=== PATIENT | female | born 1940 | race Caucasian/White ===

== ENCOUNTER 2019-06-08 14:01 | Outpatient (CLI) | payer MEDICARE, SELFPAY ==
--- NOTE | ~2019-06-08 | MM_ITS ---
EXAMINATION: MM screening epifanio BI w nakul HISTORY: Screening mammogram TECHNIQUE: Craniocaudal and mediolateral oblique 3-D tomosynthesis images were obtained and synthetic 2-D images were generated. CAD analysis was submitted and interpreted. COMPARISON: 06/06/2018 bilateral diagnostic digital mammogram 04/15/2014 bilateral diagnostic digital mammogram and complete bilateral breast ultrasound BREAST PARENCHYMAL COMPOSITION: FINDINGS: There is a cluster of grouped microcalcifications anteriorly in the outer left breast on CC projection; magnification views are recommended. Otherwise there is no evidence of suspicious mass, calcification, or architectural distortion to sug gest malignancy in either breast. There are scattered bilateral benign calcifications including arter ial. There has been no other suspicious interval change. IMPRESSION: 1. Cluster grouped microcalcifications of left breast 2. Diagnostic left mammogram with magnification views is recommended. BI-RADS Category 0: Incomplete: Needs additional imaging evaluation. Reviewed, dictated and finalized at location A.
== END 2019-06-08 14:02 | disposition home or self-care (01) ==
LOC: ANHIMG 14:06
PROVIDERS: PCP Family Medicine; Visit Provider Family Medicine
DX: Z12.31 Encounter for screening mammogram for malignant neoplasm of breast (principal); R92.8 Other abnormal and inconclusive findings on diagnostic imaging of breast
CPT/HCPCS: 77063; 77067

== ENCOUNTER 2019-06-12 09:37 | Outpatient (CLI) | payer MEDICARE, SELFPAY ==
[2019-06-12 09:54] LABS: Hematocrit 39.6 % (37.0-47.0); Hemoglobin 13.2 g/dL (12.0-15.0); Mean Corpuscular HGB Conc 33.3 g/dl (32-36); Mean Corpuscular Volume 96.1 fl (80-100); Mean Platelet Volume 10.5 fl (7.4-10.4); Platelet Count Result 143 k/mm3 (150-375); Red Blood Count 4.12 M/mm3 (4.2-5.4); Red Cell Distribution Width 12.3 % (11.5-14.5); White Blood Count 4.5 K/mm3 (4.5-10.0)
[2019-06-12 10:06] LABS: Alanine Aminotransferase 21 U/L (4-35); Albumin Level 4.1 g/dL (3.5-5.1); Alkaline Phosphatase 80 U/L (38-126); Aspartate Amino Transferase 26 U/L (14-36); Bilirubin,Total 0.4 mg/dL (0.2-1.3); Blood Urea Nitrogen 17 mg/dL (7-17); Carbon Dioxide 29 mmol/L (22-30); Chloride 104 mmol/L (98-107); Cholesterol 138 mg/dL (0-200); Estimated Glomerular Filt Rate > 60; Glucose 98 mg/dL (65-105); HDL Direct 50 mg/dL; Potassium 4.2 mmol/L (3.4-5.0); Sodium 141 mmol/L (137-145); Triglycerides 134 mg/dL (<150)
[2019-06-12 10:16] LABS: LDL Cholesterol Direct 62 mg/dL
== END 2019-06-12 09:38 | disposition home or self-care (01) ==
PROVIDERS: PCP Family Medicine; Visit Provider Family Medicine
DX: R53.83 Other fatigue (principal); I10 Essential (primary) hypertension; E78.2 Mixed hyperlipidemia; E03.9 Hypothyroidism, unspecified
CPT/HCPCS: 36415; 80053; 80061; 84443; 85027

== ENCOUNTER 2019-12-30 13:10 | Emergency (ER) | payer MEDICARE, SELFPAY ==
--- NOTE | ~2019-12-30 | CT_ITS ---
EXAMINATION: CT brain wo con DATE: 12/30/2019 13:54 INDICATION: Leg paresis TECHNIQUE: Computed tomography (CT) of the head was performed without intravenous contrast. The mA wa s adjusted according to patient size. Iterative reconstruction technique was employed. Exam dose: 60 5.33 mGy-cm total exam DLP. COMPARISON: 10/30/2016 MRI brain/brainstem 10/29/[address] brain FINDINGS: Vertebral, basilar and bilateral carotid siphon and supraclinoid internal carotid artery ca lcifications are noted. There is nonspecific diminished attenuation of the subcortical and periventri cular cerebral white matter, likely due to chronic small vessel ischemic changes. Mild cerebral and cerebellar atrophy. No intracranial mass lesion or hemorrhage or cerebrovascular accident is evident. No midline shift or mass effect. No fracture or bone destruction of the cranial vault. Included paranasal sinuses and mastoid air cell s are normally developed and aerated. IMPRESSION: Cerebral atherosclerosis and chronic small vessel ischemic changes of the cerebral white matter No acute intracranial finding or significant change since 10/29/2016 Reviewed, dictated and finalized at Location [facility]. Reviewed, dictated and finalized at location B.
--- NOTE | 2019-12-30 13:18 | ED.WEAKNESS ---
HPI - Weakness General Chief complaint: Weakness Stated complaint: SHAKY, N/V, WEAKNESS Time Seen by Provider: 12/30/19 13:18 History of Present Illness HPI Narrative: 79 yo female presents from home for weakness, shakiness, vomiting. She has felt like she was shaking on the inside since this morning. This got worse throughout the day. Later she developed some nausea and vomited. At one point she tred to walk, but states that she was not able to move her legs. She does not report any specific arm weaknes, but says that she was weak all over. She reports that she has had similar symptoms, but this is the worst it has ever been. She has had vertigo, it is not clear if this is similar. She says that I have seen her for this in the past. On review of the chart she had a UTi at that time. Related Data Home Medications Medication Instructions Recorded Confirmed meclizine 25 mg tablet 25 mg PO TID PRN 05/31/19 05/31/19 ranolazine 500 mg tablet,extended 500 mg PO Q12H 06/03/19 release,12 hr Allergies Allergy/AdvReac Type Severity Reaction Status Date / Time alendronate sodium Allergy Unknown Pt does Verified 12/30/19 13:26 remember levofloxacin Allergy Unknown Pt does Verified 12/30/19 13:26 not remember hydrocodone AdvReac Mild IF SHE Verified 12/30/19 13:26 TAKES 250 MG SHE IS OKAY, 500 MG SHE HAS NAUSEA AND V Review of Systems Review of Systems: All systems reviewed & are unremarkable except as noted in HPI and below Constitutional: Constitutional: Denies fever(s) and Reports weakness Eyes: Eyes: Denies change in vision ENT: Reports dizziness Cardiovascular: Cardiovascular: Denies chest pain Respiratory: Respiratory: Denies dyspnea Gastrointestinal: Gastrointestinal: Denies abdominal pain, Reports nausea and Reports vomiting Genitourinary: Genitourinary: Denies hematuria and Denies dysuria Musculoskeletal: Musculoskeletal: Denies back pain Neurologic: Denies confusion, Reports dizziness, Denies syncope, Denies focal weakness, Denies numbness and Reports weakness Psychiatric: Psychiatric: Denies anxiety PMFSH Past Medical History Medical History Chronic bilateral low back pain without sciatica Coronary artery disease involving [place] coronary artery of [place] heart Essential hypertension Gastroesophageal reflux disease H/O migraine Hypothyroidism Mixed hyperlipidemia Primary osteoarthritis of left knee Seasonal allergic rhinitis Vertigo Vitamin B12 deficiency Vitamin D deficiency Social History Social History Smoking status: Never smoker Second hand tobacco smoke exposure: No Alcohol intake: never Exam Const: General: no acute distress and alert Nutritional Appearance: obese Orientation/consciousness: patient oriented x3 HENMT: Head: normal to inspection Eyes: Pupils: Equal, round and reactive pupils present EOM: EOMs intact bilaterally Resp: Effort & Inspection: normal respiratory effort Auscultation: clear to auscultation bilaterally Cardio: Rate: regular rate Rhythm: regular rhythm GI: GI Palp: Yes Soft to palpation and No Tenderness to palpation present (GI) Neuro: General: patient oriented x3, moves all extremities, no focal motor deficits and CN's II-XI intact bilaterally Cranial nerves: Yes Nystagmus not present Speech: normal speech Extrem: General: normal to inspection and no edema Course Vital Signs Vital signs: Vital Signs Temperature 36.4 C 12/30/19 13:23 Pulse Rate 72 12/30/19 13:23 Respiratory Rate 18 12/30/19 13:23 Blood Pressure 166/76 H 12/30/19 13:23 Pulse Oximetry 97 12/30/19 13:23 Temperature 36.4 C 12/30/19 13:23 Pulse Rate 72 12/30/19 16:25 Respiratory Rate 18 12/30/19 16:25 Blood Pressure 163/89 H 12/30/19 16:25 Pulse Oximetry 100 12/30/19 16:25
[2019-12-30 13:23] VITALS: BP 166/76; PULSE 72; RESP 18; TEMP 36.4; O2SAT 97
--- NOTE | 2019-12-30 13:37 | ECG_ITS ---
Measurements Intervals [place] Rate: 67 P: 74 OK: 189 QRS: -53 QRSD: 116 T: 23 QT: 347 QTc: 369 Interpretive Statements SINUS RHYTHM LOW QRS VOLTAGE IN PRECORDIAL LEADS INCOMPLETE RIGHT BUNDLE BRANCH BLOCK LEFT ANTERIOR FASCICULAR BLOCK ABNORMAL ECG Electronically Signed On 12-30-2019 13:49:32 CDT by Blayne Steele D.O.
[2019-12-30] MEDS: PANTOPRAZOLE SODIUM IV 40 MG VIAL IV PUSH (14:06)
[2019-12-30] MEDS: SODIUM CHLORIDE 0.9% IV 500 ML 999 ML IV CONT (14:06)
[2019-12-30] MEDS: METOCLOPRAMIDE HCL INJ 10 MG/2 ML VIAL IV PUSH (14:06)
[2019-12-30 14:17] LABS: Basophils Percent Auto 0.4 % (0.2-1.2); Eosinophils Absolute Auto 0.1 K/mm3 (0-0.3); Eosinophils Percent Auto 2.2 % (0-4.4); Hematocrit 38.7 % (37.0-47.0); Hemoglobin 12.8 g/dL (12.0-15.0); Immature Granulocyte Absolute 0.01 K/mm3 (0.00-0.031); Immature Granulocyte Percent A 0.2 % (0-0.5); Immature Platelet Fraction Pct 4.9 % (0.9-11.2); Lymphocytes Absolute Auto 1.32 K/mm3 (0.9-3.2); Lymphocytes Percent Auto 29.4 % (18.3-44.2); Mean Corpuscular HGB Conc 33.1 g/dl (32-36); Mean Corpuscular Hemoglobin 32.2 pg (26-34); Mean Corpuscular Volume 97.5 fl (80-100); Mean Platelet Volume 11.3 fl (7.4-10.4); Monocytes Absolute Auto 0.3 K/mm3 (0.1-0.6); Monocytes Percent Auto 7.1 % (2.6-8.5); Neutrophils Absolute Auto 2.7 K/mm3 (1.3-6.7); Neutrophils Percent Auto 60.7 % (45.5-73.1); Platelet Count Result 155 k/mm3 (150-375); Red Blood Count 3.97 M/mm3 (4.2-5.4); Red Cell Distribution Width 12.2 % (11.5-14.5); White Blood Count 4.5 K/mm3 (4.5-10.0)
[2019-12-30 14:32] LABS: Prothrombin Time 12.8 Seconds (11.1-14.7)
[2019-12-30 14:33] LABS: Partial Thromboplastin Time 34.4 SECONDS (22.3-36.8)
[2019-12-30 14:59] VITALS: BP 144/79; PULSE 69; RESP 18; O2SAT 95
--- NOTE | 2019-12-30 15:05 | PC.NURSE ---
Patient declines straight cath at this time and is unable to give urine sample.
[2019-12-30 15:20] LABS: Alanine Aminotransferase 20 U/L (4-35); Albumin Level 4.3 g/dL (3.5-5.1); Alkaline Phosphatase 88 U/L (38-126); Anion Gap 11 mmol/L (8-16); Aspartate Amino Transferase 26 U/L (14-36); Bilirubin,Total 0.6 mg/dL (0.2-1.3); Blood Urea Nitrogen 17 mg/dL (7-17); Carbon Dioxide 30 mmol/L (22-30); Chloride 100 mmol/L (98-107); Estimated CRCL calculation 56 ml/min; Estimated Glomerular Filt Rate > 60; Glucose 111 mg/dL (65-105); Potassium 3.7 mmol/L (3.4-5.0); Sodium 141 mmol/L (137-145)
[2019-12-30 15:27] LABS: Add Urine Microscopic? NO; Appearance Urine Clear (Clear); Bilirubin Urine Negative (Negative); Blood Urine Negative (Negative); Color Urine Yellow (Yellow); Glucose Urine UA Negative (Negative); Ketones Urine Negative (Negative); Leukocyte Esterase Ur Negative LEU/UL (Negative); Nitrate Urine Negative (Negative); Protein Urine Negative (Negative); Specific Grav Ur 1.016 (1.001-1.035); Urobilinogen Urine Negative mg/dL (<2.0)
[2019-12-30 16:25] VITALS: BP 163/89; PULSE 72; RESP 18; O2SAT 100
== END 2019-12-30 16:26 | disposition home or self-care (01) ==
PROVIDERS: Emergency Provider Emergency Medicine; PCP Family Medicine
DX: R53.1 Weakness (principal); R11.2 Nausea with vomiting, unspecified; I67.2 Cerebral atherosclerosis; I25.10 Atherosclerotic heart disease of native coronary artery without angina pectoris; I10 Essential (primary) hypertension; K21.9 Gastro-esophageal reflux disease without esophagitis; E03.9 Hypothyroidism, unspecified; E78.2 Mixed hyperlipidemia; M17.12 Unilateral primary osteoarthritis, left knee; E53.8 Deficiency of other specified B group vitamins; E55.9 Vitamin D deficiency, unspecified; I45.2 Bifascicular block
CPT/HCPCS: 36415; 70450; 80053; 81003; 85025; 85055; 85610; 85730; 93005; 96361; 96374; 96375; 99284; C9113; J2765; J7040

== ENCOUNTER → 2020-06-10 14:39 | Outpatient (CLI) | payer MEDICARE, SELFPAY ==
--- NOTE | ~2020-06-10 | XR_ITS ---
XR chest 2V 06/10/2020 15:14 Indication: Dyspnea. Procedure: 2 view chest Comparison: Comparison to multiple prior studies sequentially, with oldest reviewed study dated 04/15. Findings: There is chronic right basilar infiltrates, most likely atelectasis/scarring. Cardiomegaly. There is atherosclerosis. No acute focal pneumonia, edema, pleural effusion or pneumothorax. Impression: 1: No acute cardiopulmonary disease. 2: Chronic right basilar atelectasis/scarring, unchanged. Reviewed, dictated and finalized at location A. 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 2: Chronic right basilar atelectasis/scarring, unchanged.
== END ==
PROVIDERS: Visit Provider Family Medicine
DX: R06.00 Dyspnea, unspecified (principal)
CPT/HCPCS: 71046

== ENCOUNTER → 2020-06-10 14:42 | Outpatient (CLI) | payer MEDICARE, SELFPAY ==
--- NOTE | ~2020-06-10 | XR_ITS ---
EXAMINATION: XR knee RT 2V DATE: 06/10/2020 15:15 INDICATION: Right knee pain. TECHNIQUE: 2 views of right knee were obtained. COMPARISON: None. FINDINGS: Bone alignment is normal. No fracture. There is mild osteoarthritis of medial and patellofe moral compartments. No knee joint effusion. IMPRESSION: 1. Mild right knee osteoarthritis. Reviewed, dictated and finalized at location A. 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
== END ==
PROVIDERS: Visit Provider Physical Medicine & Rehabilitation Pain Medicine
DX: M17.11 Unilateral primary osteoarthritis, right knee (principal)
CPT/HCPCS: 73560

== ENCOUNTER 2020-07-25 10:31 | Outpatient (CLI) | payer MEDICARE, SELFPAY ==
[2020-07-25 11:40] LABS: Hemoglobin A1C 5.9 % (<5.7)
[2020-07-25 11:41] LABS: Alanine Aminotransferase 21 U/L (4-35); Alkaline Phosphatase 68 U/L (38-126); Anion Gap 3 mmol/L (8-16); Aspartate Amino Transferase 26 U/L (14-36); Bilirubin,Total 0.6 mg/dL (0.2-1.3); Blood Urea Nitrogen 22 mg/dL (7-17); Calcium 9.2 mg/dL (8.4-10.2); Carbon Dioxide 34 mmol/L (22-30); Chloride 105 mmol/L (98-107); Cholesterol 144 mg/dL (0-200); Estimated Glomerular Filt Rate > 60; Glucose 95 mg/dL (65-105); HDL Direct 65 mg/dL; Potassium 3.5 mmol/L (3.4-5.0); Sodium 142 mmol/L (137-145); Triglycerides 102 mg/dL (<150)
[2020-07-25 11:54] LABS: LDL Cholesterol Direct 54 mg/dL
== END 2020-07-25 10:32 | disposition home or self-care (01) ==
LOC: ANHLAB 10:36
PROVIDERS: PCP Family Medicine; Visit Provider Family Medicine
DX: E78.2 Mixed hyperlipidemia (principal); E03.9 Hypothyroidism, unspecified; R53.83 Other fatigue; R73.03 Prediabetes; I10 Essential (primary) hypertension
CPT/HCPCS: 36415; 80053; 80061; 83036; 84443

== ENCOUNTER → 2020-08-11 09:26 | Outpatient (CLI) | payer MEDICARE, SELFPAY ==
--- NOTE | ~2020-08-11 | MM_ITS ---
EXAMINATION: MM diagnostic epifanio BI w nakul HISTORY: Indeterminate left breast calcifications TECHNIQUE: Craniocaudal, mediolateral, and mediolateral oblique 3-D tomosynthesis images of the breas ts were performed and synthetic 2-D images were generated. Magnification views of the left breast are also obtained. CAD analysis was submitted and interpreted. COMPARISON: 06/08/2019, 06/06/2018, 04/15/2014, 07/14/2012 BREAST PARENCHYMAL COMPOSITION: The breasts are heterogeneously dense, which may obscure small masses . FINDINGS: There are grouped, round calcifications in the middle third of the outer breast at 3:00 loc ation 5 cm from the nipple. With magnification, these calcifications appear stable compared to prior mammograms. There is no suspicious mass, calcification, or architectural distortion in either breast to suggest malignancy. IMPRESSION: 1. No mammographic evidence of malignancy. 2. Recommend annual screening mammography while the patient remains in good health. BI-RADS Category 2: Benign finding(s). Reviewed, dictated and finalized at location A. IMPRESSION: 1. No mammographic evidence of malignancy. 2. Recommend annual screening mammography while the patient remains in good hea lth. BI-RADS Category 2: Benign finding(s).
== END ==
PROVIDERS: PCP Family Medicine; Visit Provider Physician Assistant
DX: R92.8 Other abnormal and inconclusive findings on diagnostic imaging of breast (principal)
CPT/HCPCS: 77062; 77066; G0279

== ENCOUNTER 2020-09-02 10:08 | Outpatient (CLI) | payer MEDICARE, SELFPAY ==
--- NOTE | ~2020-09-02 | US_ITS ---
EXAMINATION: US soft tissue head and neck DATE: 09/02/2020 10:34 INDICATION: Left neck palpable abnormality TECHNIQUE: Multiple grayscale and Doppler ultrasound images of the left neck and supraclavicular paul on were obtained. COMPARISON: Cervical MRI dated 12/02/2013 FINDINGS: Palpable abnormality of concern appears to correspond to prominent patent vein likely representing th e left external jugular vein as can be seen on prior cervical MRI dated 12/02/2013. The deeper left int ernal jugular vein and common carotid artery appear normal. No pathologically enlarged lymphadenopath y, abnormal masses or fluid collections identified. IMPRESSION: 1. Palpable abnormality of concern appears to correspond to the prominent left external jugular vein. No pathologically enlarged lymphadenopathy or other abnormal masses or fluid collections identified. Reviewed, dictated and finalized at location A. IMPRESSION: 1. Palpable abnormality of concern appears to correspond to the prominent left external jugular vein. No pathologically enlarged lymphadenopathy or other abno rmal masses or fluid collections identified.
== END 2020-09-02 10:09 | disposition home or self-care (01) ==
PROVIDERS: PCP Family Medicine; Visit Provider Family Medicine
DX: R22.1 Localized swelling, mass and lump, neck (principal)
CPT/HCPCS: 76536

== ENCOUNTER → 2020-10-25 10:44 | Outpatient (CLI) | payer MEDICARE, SELFPAY ==
--- NOTE | ~2020-10-25 | MR_ITS ---
EXAMINATION: MR lumbar spine wo/w con EXAM DATE: 10/25/2020 11:47 INDICATION: Lower back pain. Right leg pain. TECHNIQUE: Multi-sequential, multiplanar MR images of the lumbar spine were obtained without contrast . Sagittal T1, T2, T2 fat saturation images. Axial T2 weighted images. Axial T1 weighted sequence. Patient was then injected with 15 mL Multihance intravenous contrast and reimaged. Postcontrast axi al and sagittal T1-weighted fat saturation sequences were obtained. There is no prior study for mary jo fontenot. FINDINGS: There is moderate loss of the L5-S1 disc height, mild disc disease at the other thoracolumb ar levels. The conus medullaris terminates at the L1-2 level and has normal signal intensity and morp hology. There are no suspicious marrow signal abnormalities. The vertebral bodies are aligned in the AP dimension. Paraspinal soft tissue is unremarkable. Level by level evaluation: T12-L1: Disc does not extend beyond the endplate margin. Facet arthropathy: Mild. Neural foraminal stenosis: No stenosis. Central canal stenosis: No stenosis. L1-L2: Disc does not extend beyond the endplate margin. Facet arthropathy: Mild. Neural foraminal stenosis: No stenosis. Central canal stenosis: No stenosis. L2-L3: There is a mild diffuse disc bulge. Facet arthropathy: Mild. Neural foraminal stenosis: No stenosis. Central canal stenosis: No stenosis. L3-L4: There is a mild diffuse disc bulge. Facet arthropathy: Moderate. Neural foraminal stenosis: Mild to moderate right, mild left. Central canal stenosis: Mild. L4-L5: There is a mild to moderate diffuse disc bulge. Facet arthropathy: Moderate. Neural foraminal stenosis: Moderate right, mild to moderate left. Central canal stenosis: Moderate. L5-S1: There is a mild to moderate diffuse disc bulge. Facet arthropathy: Mild to moderate. Neural foraminal stenosis: Mild bilateral. Central canal stenosis: Mild. IMPRESSION: 1. Overall mild to moderate lumbar spondylosis as detailed above. 2. Right L4-5 neural foramina most narrowed on exam. Reviewed, dictated and finalized at location B.
[2020-10-25 11:20] LABS: Estimated Glomerular Filt Rate > 60
== END ==
PROVIDERS: PCP Family Medicine; Visit Provider Physical Medicine & Rehabilitation Pain Medicine
DX: M47.896 Other spondylosis, lumbar region (principal)
CPT/HCPCS: 72158; A9577

== ENCOUNTER 2020-11-25 14:07 | Emergency (ER) | payer MEDICARE, SELFPAY ==
[2020-11-25] VITALS (7 sets, daily range): BP systolic 138–167; BP diastolic 75–79; PULSE 71–76; RESP 17–24; TEMP 36.4–36.8; O2SAT 96–99
--- NOTE | ~2020-11-25 | XR_ITS ---
EXAMINATION: XR chest 2V EXAM DATE: 11/25/2020 14:42 INDICATION: Weakness, chest pain. TECHNIQUE: Frontal and lateral projections of the chest obtained and reviewed. Comparison is made to prior examination from 06/10/2020. FINDINGS: Linear bibasilar opacities consistent with atelectasis unchanged. The lungs are otherwise clear. Mild cardiomegaly. There is no pneumothorax suspected. There are no pleural effusions. There a re mild bony degenerative changes. IMPRESSION: 1. Linear basilar opacities most consistent with atelectasis. 2. Cardiomegaly. Reviewed, dictated and finalized at location A.
--- NOTE | 2020-11-25 14:31 | ECG_ITS ---
Measurements Intervals [place] Rate: 69 P: 32 AL: 161 QRS: -58 QRSD: 106 T: 45 QT: 341 QTc: 367 Interpretive Statements SINUS RHYTHM LEFT AXIS DEVIATION LOW QRS VOLTAGE IN PRECORDIAL LEADS INCOMPLETE RIGHT BUNDLE BRANCH BLOCK POOR R WAVE PROGRESSION, ANTERIOR LEADS BASELINE ARTIFACT- I, II, AVR, AVL, V4-V6 BORDERLINE ECG Electronically Signed On 11-25-2020 14:53:23 CDT by Blayne Steele D.O.
--- NOTE | 2020-11-25 15:13 | ED.CHESTPAIN ---
HPI - Chest Pain General Chief Complaint: Weakness Stated Complaint: Weakness Time Seen by Provider: 11/25/20 14:51 Source: patient Mode of arrival: ambulatory Limitations: no limitations History of Present Illness HPI narrative: Patient is an 80-year-old female complaining of generalized weakness, nausea and chest discomfort that started prior to arrival. Patient states that her chest discomfort was brief, few minutes , 1 episode and now resolved. Patient denies any speech or visual disturbance, focal weakness or numbness shortness of breath, vomiting, diarrhea, fever or chills. Patient states that she had similar episodes in the past and it was due to anxiety. Related Data Home Medications Medication Instructions Recorded Confirmed meclizine 25 mg tablet 25 mg PO TID PRN 05/31/19 05/31/19 ranolazine 500 mg tablet,extended 1,000 mg PO Q12H tablet 05/02/20 release,12 hr amitriptyline 10 mg tablet 10 mg PO .HS tablet 08/25/20 Allergies Allergy/AdvReac Type Severity Reaction Status Date / Time alendronate sodium Allergy Unknown Pt does Verified 08/25/20 11:22 remember levofloxacin Allergy Unknown Pt does Verified 08/25/20 11:22 not remember hydrocodone AdvReac Mild IF SHE Verified 08/25/20 11:22 TAKES 250 MG SHE IS OKAY, 500 MG SHE HAS NAUSEA AND V Review of Systems Review of Systems: All systems reviewed & are unremarkable except as noted in HPI and below Constitutional: Constitutional: Denies body ache(s), Denies chills, Denies excessive sweating, Denies fatigue, Denies fever(s), Denies headache(s), Denies lethargy, Denies malaise and Denies weight loss Eyes: Eyes: Denies blurry vision, Denies change in vision and Denies loss of vision ENT: Denies dizziness, Denies ear discharge, Denies headache(s), Denies lip swelling, Denies epistaxis, Denies nasal congestion, Denies neck pain, Denies throat swelling and Denies tongue swelling Cardiovascular: Cardiovascular: Denies diaphoresis, Denies rapid heart rate, Denies edema, Denies irregular heart rhythm, Denies lightheadedness, Denies palpitations, Denies dyspnea and Denies dyspnea on exertion Respiratory: Respiratory: Denies chest congestion, Denies cough, Denies hemoptysis, Denies dyspnea and Denies dyspnea on exertion Gastrointestinal: Gastrointestinal: Denies abdominal pain, Denies melena, Denies hematochezia, Denies diarrhea, Denies vomiting and Denies hematemesis Musculoskeletal: Musculoskeletal: Denies abnormal gait, Denies deformity, Denies joint swelling, Denies limited range of motion, Denies neck pain and Denies numbness Neurologic: Denies Abnormal speech present, Denies abnormal gait, Denies confusion, Denies dizziness, Denies headache(s), Denies focal weakness, Denies loss of vision, Denies numbness, Denies Other visual disturbances, Denies Sensory deficit (Neuro) and Denies weakness Psychiatric: Psychiatric: Denies confusion, Denies depression, Denies auditory hallucinations, Denies homicidal ideation and Denies suicidal ideation Endocrine: Endocrine: Denies cold intolerance, Denies excessive sweating, Denies fatigue, Denies heat intolerance and Denies palpitations Hematologic/Lymphatic: Hematologic/Lymphatic: Denies easy bleeding and Denies easy bruising Allergic/Immunologic: Allergic/Immunologic: Denies lip swelling, Denies throat swelling and Denies tongue swelling [facility] Past Medical History Medical History Chronic bilateral low back pain without sciatica Coronary artery disease involving [place] coronary artery of [place] heart Essential hypertension Gastroesophageal reflux disease H/O migraine Hypothyroidism Mixed hyperlipidemia Prediabetes Primary osteoarthritis of left knee Seasonal allergic rhinitis Vertigo Vitamin B12 deficiency Vitamin D deficiency Social History Social History Second
[2020-11-25 15:15] LABS: Basophils Percent Auto 0.5 % (0.2-1.2); Eosinophils Absolute Auto 0.1 K/mm3 (0-0.3); Eosinophils Percent Auto 2.3 % (0-4.4); Hemoglobin 12.7 g/dL (12.0-15.0); Lymphocytes Absolute Auto 1.21 K/mm3 (0.9-3.2); Lymphocytes Percent Auto 28.4 % (18.3-44.2); Mean Corpuscular HGB Conc 32.6 g/dl (32-36); Mean Corpuscular Hemoglobin 32.1 pg (26-34); Mean Corpuscular Volume 98.5 fl (80-100); Mean Platelet Volume 10.4 fl (7.4-10.4); Monocytes Absolute Auto 0.4 K/mm3 (0.1-0.6); Monocytes Percent Auto 10.3 % (2.6-8.5); Neutrophils Absolute Auto 2.5 K/mm3 (1.3-6.7); Neutrophils Percent Auto 58.5 % (45.5-73.1); Platelet Count Result 146 k/mm3 (150-375); Red Blood Count 3.96 M/mm3 (4.2-5.4); Red Cell Distribution Width 12.6 % (11.5-14.5); White Blood Count 4.3 K/mm3 (4.5-10.0)
[2020-11-25 15:25] LABS: Alanine Aminotransferase 25 U/L (4-35); Alkaline Phosphatase 87 U/L (38-126); Anion Gap 8 mmol/L (8-16); Aspartate Amino Transferase 26 U/L (14-36); Bilirubin,Total 0.3 mg/dL (0.2-1.3); Blood Urea Nitrogen 19 mg/dL (7-17); Carbon Dioxide 29 mmol/L (22-30); Chloride 96 mmol/L (98-107); Estimated CRCL calculation 46 ml/min; Estimated Glomerular Filt Rate > 60; Glucose 118 mg/dL (65-110); Potassium 3.2 mmol/L (3.4-5.0); Sodium 133 mmol/L (137-145)
[2020-11-25 16:23] LABS: Troponin I < 0.012 ng/mL (0.000-0.034)
[2020-11-25 16:23] LABS: Add Urine Microscopic? YES; Appearance Urine Clear (Clear); Bilirubin Urine Negative (Negative); Blood Urine Negative (Negative); Color Urine Yellow (Yellow); Glucose Urine UA Negative (Negative); Ketones Urine Negative (Negative); Leukocyte Esterase Ur Trace LEU/UL (Negative); Mucus Urine Rare /lpf; Nitrate Urine Negative (Negative); Protein Urine Negative (Negative); RBC Urine 0-2 /hpf (0-2); Specific Grav Ur 1.019 (1.001-1.035); Squamous Epithelial Cell Urine Rare /hpf (Few); Urobilinogen Urine Negative mg/dL (<2.0)
[2020-11-25] MEDS: LACTATED RINGERS 1,000 ML 999 ML IV CONT (16:30)
[2020-11-25] MEDS: ASPIRIN 81 MG CHEWABLE TABLET 324 MG PO (16:30)
[2020-11-25] MEDS: POTASSIUM CHLORIDE 20 MEQ PACKET (FOR LIQUID) 40 MEQ PO (18:24)
[2020-11-25 19:02] LABS: Troponin I < 0.012 ng/mL (0.000-0.034)
== END 2020-11-25 20:00 | disposition home or self-care (01) ==
PROVIDERS: Emergency Medicine; Emergency Provider Emergency Medicine; PCP Family Medicine
DX: R53.1 Weakness (principal); R07.89 Other chest pain; I25.10 Atherosclerotic heart disease of native coronary artery without angina pectoris; I10 Essential (primary) hypertension; K21.9 Gastro-esophageal reflux disease without esophagitis; E03.9 Hypothyroidism, unspecified; E78.2 Mixed hyperlipidemia; R73.03 Prediabetes; M17.12 Unilateral primary osteoarthritis, left knee; E53.8 Deficiency of other specified B group vitamins; E55.9 Vitamin D deficiency, unspecified; R94.31 Abnormal electrocardiogram [ECG] [EKG]; I45.10 Unspecified right bundle-branch block; I51.7 Cardiomegaly; R91.8 Other nonspecific abnormal finding of lung field
CPT/HCPCS: 36415; 71046; 80053; 81001; 84484; 85025; 93005; 96360; 99284; A9270; J7120

== ENCOUNTER 2020-12-22 09:38 | Outpatient (CLI) | payer MEDICARE, SELFPAY ==
[2020-12-22 10:15] LABS: Anion Gap 8 mmol/L (8-16); Blood Urea Nitrogen 16 mg/dL (7-17); Calcium 9.5 mg/dL (8.4-10.2); Carbon Dioxide 33 mmol/L (22-30); Chloride 103 mmol/L (98-107); Estimated Glomerular Filt Rate > 60; Glucose 106 mg/dL (65-110); Potassium 3.4 mmol/L (3.4-5.0); Sodium 144 mmol/L (137-145)
== END 2020-12-22 09:39 | disposition home or self-care (01) ==
LOC: ANHLAB 09:43
PROVIDERS: PCP Family Medicine; Visit Provider Family Medicine
DX: E87.6 Hypokalemia (principal)
CPT/HCPCS: 36415; 80048

== ENCOUNTER 2021-03-14 10:36 | Outpatient (CLI) | payer MEDICARE, SELFPAY ==
--- NOTE | ~2021-03-14 | MR_ITS ---
EXAMINATION: MR cervical spine wo con DATE: 03/14/2021 11:31 INDICATION: Neck pain. TECHNIQUE: Magnetic resonance imaging (MRI) of the cervical spine was performed without intravenous c ontrast. Sequences included sagittal T2-weighted FSE, sagittal T2-weighted FS FSE, sagittal T1-weight ed FSE, axial MERGE, and axial T2-weighted FSE. COMPARISON: Cervical spine MRI 12/02/2013 FINDINGS: There is 5 degrees levocurvature of cervical spine. Vertebral body heights are normal. Ther e is 2 mm anterolisthesis of C5 on C6. There is moderately decreased disc height at C6-C7. The spinal cord signal intensity is normal. The following disc levels are specifically discussed: C2-C3: The disc does not extend beyond the endplate margin. There is no uncovertebral joint osteoarth ritis. There is moderate right and severe left facet joint osteoarthritis. There is no neural foramin al stenosis. There is no central canal stenosis. C3-C4: The disc does not extend beyond the endplate margin. There is no uncovertebral joint osteoarth ritis. There is severe bilateral facet joint osteoarthritis. There is moderate right and mild left ne ural foraminal stenosis. There is no central canal stenosis. C4-C5: The disc does not extend beyond the endplate margin. There is mild lateral uncovertebral joint osteoarthritis. There is severe bilateral facet joint osteoarthritis. There is moderate right and mi ld left neural foraminal stenosis. There is no central canal stenosis. C5-C6: The disc is bulging. There is mild bilateral uncovertebral joint osteoarthritis. There is clifford re bilateral facet joint osteoarthritis. There is mild bilateral neural foraminal stenosis. There is mild central canal stenosis. C6-C7: The disc is bulging. There is severe bilateral uncovertebral joint osteoarthritis. There is mi ld bilateral facet joint osteoarthritis. There is mild bilateral neural foraminal stenosis. There is mild central canal stenosis. C7-T1: There is a central protrusion. There is no uncovertebral joint osteoarthritis. There is severe bilateral facet joint osteoarthritis. There is mild bilateral neural foraminal stenosis. There is no central canal stenosis. IMPRESSION: 1. Moderate cervical spondylosis, stable from 12/02/2013. Reviewed, dictated and finalized at location A. 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
== END 2021-03-14 10:37 | disposition home or self-care (01) ==
LOC: ANHIMG 10:42
PROVIDERS: PCP Family Medicine; Visit Provider Family Medicine
DX: M47.813 Spondylosis without myelopathy or radiculopathy, cervicothoracic region (principal); M48.03 Spinal stenosis, cervicothoracic region
CPT/HCPCS: 72141

== ENCOUNTER → 2021-11-14 12:30 | Outpatient (CLI) | payer MEDICARE, SELFPAY ==
--- NOTE | ~2021-11-14 | MM_ITS ---
EXAMINATION: MM screening epifanio BI w nakul HISTORY: Screening mammogram TECHNIQUE: Craniocaudal and mediolateral oblique 3-D tomosynthesis images were obtained and synthetic 2-D images were generated. CAD analysis was submitted and interpreted. COMPARISON: 06/18/2019 06/08/2018 bilateral mammogram examinations BREAST PARENCHYMAL COMPOSITION: There is heterogeneously dense breast tissue, which may obscure small masses . FINDINGS: Occasional bilateral benign calcifications. There is no evidence of suspicious mass, calcif ication, or architectural distortion to suggest malignancy in either breast. There has been no suspic ious interval change. IMPRESSION: 1. No mammographic evidence of malignancy. 2. Recommend routine screening mammography in one year. BI-RADS Category 2: Benign finding(s). Reviewed, dictated and finalized at location A.
== END ==
PROVIDERS: PCP Family Medicine; Visit Provider Family Medicine
DX: Z12.31 Encounter for screening mammogram for malignant neoplasm of breast (principal)
CPT/HCPCS: 77063; 77067

== ENCOUNTER 2022-08-04 18:30 | Emergency (ER) | payer MEDICARE, SELFPAY ==
--- NOTE | ~2022-08-04 | CT_ITS ---
EXAMINATION: CT thoracic spine wo con DATE: 08/04/2022 19:03 INDICATION: Back pain. Fall. TECHNIQUE: Computed tomography (CT) of the thoracic spine was performed without intravenous contrast. Automated exposure control and iterative reconstruction technique were employed. The dose-length pro duct was 1006.75 mGy-cm. COMPARISON: None FINDINGS: There is mild scarring at the lung apices. Bone alignment is normal. There is a compression fracture of T2 with less than 1/5 loss of height. Intervertebral disc heights are normal. There is m ultilevel mild to moderate facet joint osteoarthritis. On the right, there is mild neural foraminal s tenosis at T3-T4 and T10-T11. No central canal stenosis. IMPRESSION: 1. Acute T2 compression fracture with less than 1/5 loss of height. Reviewed, dictated and finalized at location A.
--- NOTE | ~2022-08-04 | CT_ITS ---
EXAMINATION: CT cervical spine wo con DATE: 08/04/2022 19:03 INDICATION: Head injury. TECHNIQUE: Computed tomography (CT) of the cervical spine was performed without intravenous contrast. Automated exposure control and iterative reconstruction technique were employed. The dose-length pro duct was 178.08 mGy-cm. COMPARISON: Cervical spine MRI 03/14/2021 FINDINGS: There is mild scarring at the lung apices. There is 9 degrees levocurvature of cervical spi ne. There is 2 mm anterolisthesis of C5 on C6. There is a compression fracture of T2 with 1/5 loss of height. There is moderately decreased disc height at C6-C7. The following disc levels are specifical ly discussed: C2-C3: There is mild bilateral uncovertebral joint osteoarthritis. There is mild right and severe lef t facet joint osteoarthritis. There is mild left neural foraminal stenosis. There is no central canal stenosis. C3-C4: There is mild bilateral uncovertebral joint osteoarthritis. There is severe bilateral facet zeny int osteoarthritis. There is mild right neural foraminal stenosis. There is no central canal stenosis . C4-C5: There is mild bilateral uncovertebral joint osteoarthritis. There is severe bilateral facet zeny int osteoarthritis. There is mild right neural foraminal stenosis. There is no central canal stenosis . C5-C6: There is no uncovertebral joint osteoarthritis. There is severe and mild left facet joint oste oarthritis. There is moderate right neural foraminal stenosis. There is no central canal stenosis. C6-C7: There is severe bilateral uncovertebral joint osteoarthritis. There is mild bilateral facet zeny int osteoarthritis. There is mild bilateral neural foraminal stenosis. There is mild central canal st enosis. C7-T1: There is no uncovertebral joint osteoarthritis. There is severe right and moderate left facet joint osteoarthritis. There is mild right neural foraminal stenosis. There is no central canal stenos is. IMPRESSION: 1. Acute T2 compression fracture with 1/5 loss of height. 2. Moderate cervical spondylosis, stable from 03/14/2021. Reviewed, dictated and finalized at location A.
--- NOTE | ~2022-08-04 | CT_ITS ---
EXAMINATION: CT brain wo con DATE: 08/04/2022 19:03 INDICATION: Head injury. TECHNIQUE: Computed tomography (CT) of the head was performed without intravenous contrast. The mA wa s adjusted according to patient size. Iterative reconstruction technique was employed. The dose-lengt h product was 605.33 mGy-cm. COMPARISON: Head CT 01/29/2020 FINDINGS: There are scattered areas of low attenuation in the cerebral white matter. There is no intr acranial hemorrhage, acute infarction, or abnormal intracranial mass lesion. The ventricles are gail l in size. The paranasal sinuses are clear. There are likely changes of ocular lens replacement surge jeffrey. The mastoid air cells are normal. IMPRESSION: 1. Stable moderate nonspecific cerebral white matter disease, which likely represents chronic small v essel ischemic disease. Reviewed, dictated and finalized at location A. IMPRESSION: 1. Stable moderate nonspecific cerebral white matter disease, which likely repr esents chronic small vessel ischemic disease.
[2022-08-04 18:32] VITALS: BP 149/79; PULSE 83; RESP 18; TEMP 36.4; O2SAT 100
--- NOTE | 2022-08-04 18:46 | ED.FALL ---
HPI - Fall General Chief Complaint: Fall Stated Complaint: FALL, HEAD PAIN Time Seen by Provider: 08/04/22 18:32 History of Present Illness HPI Narrative: 82-year-old female presented to the emergency department for evaluation after having a mechanical fall resulting in a head injury with neck and upper back pain. Patient states that she was carrying some hangers and stumbled causing herself to fall backwards and patient did strike her head against a wall. Patient denies any loss of consciousness. Patient did have an episode of nausea and vomiting. Patient felt that her neck and upper back pain was more chronic but did feel it was worsened after the fall. Related Data Home Medications Medication Instructions Recorded Confirmed meclizine 25 mg tablet 25 mg PO TID PRN dizziness 05/31/19 07/31/22 ranolazine 500 mg tablet,extended 1,000 mg PO Q12H 05/02/20 07/31/22 release,12 hr (Ranexa) Allergies Allergy/AdvReac Type Severity Reaction Status Date / Time alendronate sodium Allergy Unknown Pt does Verified 08/04/22 18:45 remember levofloxacin Allergy Unknown Pt does Verified 08/04/22 18:45 not remember hydrocodone AdvReac Mild IF SHE Verified 08/04/22 18:45 TAKES 250 MG SHE IS OKAY, 500 MG SHE HAS NAUSEA AND V Review of Systems Review of Systems: All systems reviewed & are unremarkable except as noted in HPI and below PMFSH Past Medical History Medical History Chronic bilateral low back pain without sciatica Coronary artery disease involving [place] coronary artery of [place] heart Essential hypertension Gastroesophageal reflux disease H/O migraine Hypokalemia Hypothyroidism Mixed hyperlipidemia Prediabetes Primary osteoarthritis of left knee Seasonal allergic rhinitis Vertigo Vitamin B12 deficiency Vitamin D deficiency Social History Social History Smoking status: Never smoker Second hand tobacco smoke exposure: No Alcohol intake: never Substance use: never Substance use type: does not use Lack of Transportation: No Lack of Food: Never True Current Housing: I Have Housing Concerned About Future Housing: No Difficulty Paying Gas/Electric Bills: No Difficulty Paying for Meds: No Currently Unemployed: No Education: High School Diploma/GED Difficulty w/ Childcare or Family Care: No Living arrangements: with family Occupation/Education: retired Gender identity (if verbalized by the patient): Female Sexual Orientation (if Verbalized by the Patient): Straight or Heterosexual Spiritual care concerns: No Agree to blood products: Yes Exam Narrative: APPEARANCE: Well appearing, no pain, no distress, well-nourished. HEAD: normocephalic, atraumatic. EYES: PERRLA/EOMI, conjunctivae clear. NOSE: Normal no drainage EARS:TMS clear with good light reflex. NECK: Supple. No adenopathy, no masses. RESPIRATORY: Airway patent, respirations nonlabored. Clear to auscultation bilaterally, no rales, rhonchi, wheezing. CARDIOVASCULAR: Regular rate and rhythm without murmurs rubs or gallops. ABDOMINAL: Soft, nontender, nondistended, normal bowel sounds MUSCULOSKELETAL: Moves all extremities. Strength/ROM intact, No edema, No calf tenderness. NEURO: Alert. Cranial nerves II through XII intact. Grossly intact SKIN: Warm, dry. Normal Color Course Course Emergency Course: 82-year-old female presented the ED for evaluation after having a ground-level fall. Patient states she was having some back pain but attributed this mainly to the position she was sitting in. Head and cervical spine CT were negative for acute abnormality. Thoracic spine did show evidence of a T2 fracture with mild compression. Patient was neurologically intact. I discussed the case with neurosurgery and they were comfortable with with the plan for discharge a
--- NOTE | 2022-08-04 19:28 | PC.NURSE ---
This RN assumed care of patient.
[2022-08-04 20:54] VITALS: BP 150/67; PULSE 86; RESP 21; O2SAT 96
== END 2022-08-04 20:54 | disposition home or self-care (01) ==
LOC: ANHED 20:14
PROVIDERS: Emergency Provider Emergency Medicine; PCP Family Medicine
DX: S22.020A Wedge compression fracture of second thoracic vertebra, initial encounter for closed fracture (principal); I25.10 Atherosclerotic heart disease of native coronary artery without angina pectoris; I10 Essential (primary) hypertension; E03.9 Hypothyroidism, unspecified; E78.2 Mixed hyperlipidemia; E53.8 Deficiency of other specified B group vitamins; E55.9 Vitamin D deficiency, unspecified; K21.9 Gastro-esophageal reflux disease without esophagitis; M17.12 Unilateral primary osteoarthritis, left knee; R73.03 Prediabetes; M47.812 Spondylosis without myelopathy or radiculopathy, cervical region; W01.0XXA Fall on same level from slipping, tripping and stumbling without subsequent striking against object, initial encounter
CPT/HCPCS: 70450; 72125; 72128; 99284

== ENCOUNTER 2022-12-13 13:12 | Outpatient (CLI) | payer MEDICARE, SELFPAY ==
--- NOTE | ~2022-12-13 | US_ITS ---
EXAMINATION: US thyroid DATE: 12/13/2022 14:13 INDICATION: Neck localized swelling. TECHNIQUE: Multiple ultrasound images of the thyroid were obtained. COMPARISON: None. FINDINGS: The right thyroid lobe measures 4.5 x 1.3 x 1.1 cm. The left thyroid lobe measures 4.8 x 1.1 x 1.3 c m. The thyroid is diffusely heterogeneous and hypoechoic with increased vascularity. In the left thy roid lobe, there is a 6 mm solid, hypoechoic, wider than tall nodule with smooth margin without echog enic foci (TI-RADS TR4). In the left thyroid lobe, there is a 14 mm solid, hypoechoic, wider than bryant l nodule with irregular margin without echogenic foci (TR4). IMPRESSION: 1. 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 2. Small thyroid nodules. Consider thyroid ultrasound in one year. Reviewed, dictated and finalized at location A.
== END 2022-12-13 13:13 | disposition home or self-care (01) ==
PROVIDERS: PCP Family Medicine; Visit Provider Physician Assistant Medical
DX: R22.1 Localized swelling, mass and lump, neck (principal); E04.2 Nontoxic multinodular goiter
CPT/HCPCS: 76536

== ENCOUNTER 2023-01-06 11:35 | Inpatient (IN) | payer MEDICARE, SELFPAY ==
[2023-01-06] VITALS (14 sets, daily range): BP systolic 119–191; BP diastolic 54–101; PULSE 76–100; RESP 12–20; TEMP 36.2–37.1; O2SAT 94–100; BMI 30.5
--- NOTE | ~2023-01-06 | CT_ITS ---
EXAMINATION: CT brain wo con DATE: 01/06/2023 13:43 INDICATION: fall . TECHNIQUE: Computed tomography (CT) of the head was performed without intravenous contrast. The mA wa s adjusted according to patient size. Iterative reconstruction technique was employed. The dose-lengt h product was 605.33 mGy-cm. COMPARISON: 08/04/2022. FINDINGS: No acute intracranial hemorrhage or extra-axial fluid collection. No hydrocephalus, mass, or herniation. No acute ischemic infarct. Unremarkable dural venous sinus attenuation. No acute osseous abnormality. The aerated spaces are clear. Mild atrophy and chronic white matter change. Atherosclerotic intracranial calcification. Bilateral l ens replacements. IMPRESSION: No acute intracranial process. Reviewed, dictated and finalized at location K.
--- NOTE | ~2023-01-06 | XR_ITS ---
EXAM: XR surgery orthopedic DATE: 01/06/2023 18:17 HISTORY: INTRA OP RIGHT HIP . COMPARISON: None available. FINDINGS: Operative and table hardware obscure osseous detail. In the first image there is a tempora ry fitting prosthesis in place. A second image demonstrates placement of the final prosthesis in jerry omic alignment. IMPRESSION: Intraoperative views of the right hip for right hip arthroplasty. Please refer to the ope rative report for complete details. Reviewed, dictated and finalized at location K. IMPRESSION: Intraoperative views of the right hip for right hip arthroplasty. Korey barillas refer to the operative report for complete details.
--- NOTE | ~2023-01-06 | XR_ITS ---
EXAM: XR hip RT 2V w AP pelvis DATE: 01/06/2023 13:52 HISTORY: fall, hip pain, externally rotated . COMPARISON: None available. FINDINGS: Decreased mineralization. Transverse fracture of the right femoral neck, with mild medial angulation. No lytic or blastic lesion. Moderate degenerative change in the lumbar spine. Mild bilate ral hip osteoarthritis. No erosion or periosteal change. Soft tissues within normal limits. IMPRESSION: Transverse right femoral neck fracture. Reviewed, dictated and finalized at location K.
--- NOTE | ~2023-01-06 | XR_ITS ---
EXAMINATION: XR chest 1V Exam Date/Time: 01/06/2023 13:42 CDT HISTORY: fall, RIGHT LEF EXTERNALLY ROTATED Comparison: 11/25/2020. RESULT: Lines, tubes, and devices: None. Lungs and pleura: Biapical pleural scarring. Senescent changes. Streaky bilateral lower lung scar an d atelectasis. Increasing left basilar opacity and costophrenic angle blunting. Cardiomediastinal silhouette: Stable. Other: No acute osseous or upper abdominal finding. IMPRESSION: Left lower lung subsegmental airspace disease may represent atelectasis or consolidation. Possible sm all left pleural effusion. Reviewed, dictated and finalized at location K. IMPRESSION: Left lower lung subsegmental airspace disease may represent atelectasis or cons olidation. Possible small left pleural effusion.
--- NOTE | 2023-01-06 13:20 | ED.FALL ---
HPI - Fall General Chief Complaint: Fall Stated Complaint: R hip pain/deformity s/p GLF Time Seen by Provider: 01/06/23 12:01 History of Present Illness HPI Narrative: Patient is an 82-year-old female with history of hypertension, hypothyroidism, hyperlipidemia, CAD presenting after a fall. Patient states that she fell earlier while walking through her house. States that she thinks that she tripped on her foot. Denies lightheadedness. States that she remembers the entire event. She landed on her right side and struck her head on a chair. No loss of consciousness. She denies headache or neck pain. She immediately developed severe right hip pain and was unable to ambulate so EMS was called. Denies chest or abdominal pain. No shortness of breath. No numbness or weakness. No further complaints or injuries. Related Data Home Medications Medication Instructions Recorded Confirmed ranolazine 500 mg tablet,extended 1,000 mg PO Q12H 05/02/20 01/06/23 release,12 hr (Ranexa) metoprolol succinate 25 mg 25 mg PO DAILY 01/06/23 01/07/23 tablet,extended release 24 hr isosorbide mononitrate 60 mg 30 mg PO 01/07/23 tablet,extended release 24 hr levothyroxine 25 mcg tablet 25 mcg PO DAILY 01/07/23 01/07/23 losartan 100 mg tablet 100 mg PO DAILY 01/07/23 01/07/23 Allergies Allergy/AdvReac Type Severity Reaction Status Date / Time alendronate sodium Allergy Unknown Pt does Verified 01/06/23 21:38 remember levofloxacin Allergy Unknown Pt does Verified 01/06/23 21:38 not remember hydrocodone AdvReac Mild IF SHE Verified 01/06/23 21:38 TAKES 250 MG SHE IS OKAY, 500 MG SHE HAS NAUSEA AND V Review of Systems Review of Systems: All systems reviewed & are unremarkable except as noted in HPI and below PMFSH Past Medical History Medical History (Updated 01/16/23 @ 13:03 by Che Lugo MD) Arthritis Coronary artery disease Prior cardiac catheterization showed mild plaque in the LAD and 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 Patient of Dr. Bereket Olson. Essential hypertension Gastroesophageal reflux disease Hypothyroidism Mixed hyperlipidemia Prediabetes Seasonal allergic rhinitis Vitamin B12 deficiency Vitamin D deficiency Surgical History Surgical History (Updated 01/06/23 @ 23:46 by Filomena Gonzalez PA-C) History of appendectomy History of cardiac catheterization Results as above. History of cataract extraction History of colonoscopy with polypectomy History of hysterectomy Family History Family History Father Lung cancer Sibling Breast cancer Social History Social History (Updated 01/06/23 @ 23:47 by Filomena Gonzalez PA-C) Social History: Surrogate medical decision maker: Jodi Lewis, daughter. Code status: Full code. Smoking status: Never smoker Second hand tobacco smoke exposure: No Alcohol intake: never Substance use: never Substance use type: does not use Lack of Transportation: No Lack of Food: Never True Current Housing: I Have Housing Concerned About Future Housing: No Difficulty Paying Gas/Electric Bills: No Difficulty Paying for Meds: No Currently Unemployed: No Education: High School Diploma/GED Difficulty w/ Childcare or Family Care: No Living arrangements: with family Additional living arrangements comments: The patient lives in [place] with her daughter Jodi. 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 Spiritual care concerns: No Agree to blood products: Yes Exam Narrative: GENERAL: Elderly female lying in bed in no acute distress, very pleasant and cooperative HEAD: Normocephalic, atraumatic. EYES: PERRLA and EOMI. ENT: Grossly unremarkable NECK: Supple. No midline tenderness CHEST: Clear to auscultation. No respiratory distress. HEART: Regular rate and
--- NOTE | 2023-01-06 13:24 | ECG_ITS ---
Measurements Intervals [place] Rate: 76 P: -20 AK: 151 QRS: -59 QRSD: 113 T: 22 QT: 340 QTc: 384 Interpretive Statements SINUS RHYTHM INCOMPLETE RIGHT BUNDLE BRANCH BLOCK [90+ ms QRS DURATION, TERMINAL R IN V1/V2, 40+ ms S IN I/aVL/V4/V5/V6] LEFT ANTERIOR FASCICULAR BLOCK [QRS AXIS <= -45, QR IN I, RS IN II] POSSIBLE ANTERIOR MYOCARDIAL INFARCTION , OF INDETERMINATE AGE [30 ms Q WAVE IN V3/V4, OR R < 0.2 mV IN V4] ABNORMAL ECG COMPARED TO ECG 11/25/2020 14:29:02 LEFT ANTERIOR FASCICULAR BLOCK NOW PRESENT Electronically Signed On 01-07-2023 9:24:56 CDT by Esvin Irvin M.D.
[2023-01-06] MEDS: HYDROmorphone HCL INJ (*CRX) 1 MG/ML SYR 0.5 MG IV PUSH ×4 (13:27→20:45)
[2023-01-06] MEDS: ONDANSETRON INJ 4 MG/2 ML VIAL IV PUSH (13:58)
[2023-01-06 14:18] LABS: Basophils Percent Auto 0.3 % (0.2-1.2); Eosinophils Absolute Auto 0.2 K/mm3 (0-0.3); Eosinophils Percent Auto 2.4 % (0-4.4); Hematocrit 43.3 % (37.0-47.0); Hemoglobin 13.6 g/dL (12.0-15.0); Immature Granulocyte Absolute 0.03 K/mm3 (0.00-0.031); Immature Granulocyte Percent A 0.5 % (0-0.5); Lymphocytes Absolute Auto 1.23 K/mm3 (0.9-3.2); Lymphocytes Percent Auto 19.8 % (18.3-44.2); Mean Corpuscular HGB Conc 31.4 g/dl (32-36); Mean Corpuscular Hemoglobin 31.4 pg (26-34); Mean Platelet Volume 10.8 fl (7.4-10.4); Monocytes Absolute Auto 0.3 K/mm3 (0.1-0.6); Monocytes Percent Auto 4.8 % (2.6-8.5); Neutrophils Absolute Auto 4.5 K/mm3 (1.3-6.7); Neutrophils Percent Auto 72.2 % (45.5-73.1); Platelet Count Result 146 k/mm3 (150-375); Red Blood Count 4.33 M/mm3 (4.2-5.4); Red Cell Distribution Width 12.4 % (11.5-14.5); White Blood Count 6.2 K/mm3 (4.5-10.0)
[2023-01-06 14:28] LABS: Prothrombin Time 13.3 Seconds (11.1-14.7)
[2023-01-06 14:29] LABS: Partial Thromboplastin Time 39.6 SECONDS (22.3-36.8)
--- NOTE | 2023-01-06 15:12 | PC.NURSE ---
Lab called regarding BMP. They state they had not run it yet, but will do so now.
[2023-01-06 15:18] LABS: Anion Gap 7 mmol/L (8-16); Blood Urea Nitrogen 15 mg/dL (7-17); Calcium 8.9 mg/dL (8.4-10.2); Carbon Dioxide 26 mmol/L (22-30); Chloride 106 mmol/L (98-107); Estimated Glomerular Filt Rate > 60; Glucose 104 mg/dL (65-110); Potassium 3.4 mmol/L (3.4-5.0); Sodium 139 mmol/L (137-145)
--- NOTE | 2023-01-06 16:21 | WPDANESEPPF ---
Anes - Initial Pre Proc Eval Procedure: Operation Date: 01/06/23 16:30 Proposed Procedures p Bipolar Hip Replacement(Right) - Prosper Grimes MD Date/Time: 01/06/23 16:21 Surgeon: Prosper Grimes MD Pre Op Diagnosis: R hip pain/deformity s/p GLF Patient Data Age: 82 Gender: F Height: Weight: Last Vital Signs Temp 36.2 C L 01/06/23 11:29 Pulse 82 01/06/23 15:52 Resp 20 01/06/23 15:52 BP 161/74 H 01/06/23 15:52 Pulse Ox 97 01/06/23 15:52 O2 Del Method Room Air 01/06/23 11:29 Allergies Allergy/AdvReac Type Severity Reaction Status Date / Time alendronate sodium Allergy Unknown Pt does Verified 11/27/22 09:27 remember levofloxacin Allergy Unknown Pt does Verified 11/27/22 09:27 not remember hydrocodone AdvReac Mild IF SHE Verified 11/27/22 09:27 TAKES 250 MG SHE IS OKAY, 500 MG SHE HAS NAUSEA AND V Home Medications Medication Instructions Recorded Confirmed Type levothyroxine 25 mcg tablet 25 mcg PO DAILY #90 tabs 04/21/19 11/27/22 Rx meclizine 25 mg tablet 25 mg PO TID PRN dizziness 05/31/19 11/27/22 History ranolazine 500 mg tablet,extended 1,000 mg PO Q12H 05/02/20 11/27/22 History release,12 hr (Ranexa) nystatin 100,000 unit/gram topical 1 applic topical BID #30 grams 06/09/21 11/27/22 Rx cream isosorbide mononitrate 60 mg 60 mg PO DAILY #90 tabs 01/24/22 11/27/22 Rx tablet,extended release 24 hr calcium polycarbophil 625 mg 1,250 mg PO BID #120 tabs 04/11/22 11/27/22 Rx tablet (FiberCon) atorvastatin 40 mg tablet 40 mg PO DAILY #90 tabs 07/03/22 11/27/22 Rx losartan 100 mg tablet 100 mg PO DAILY #90 tabs 07/03/22 11/27/22 Rx omeprazole 20 mg capsule,delayed See Rx Instructions .Route 07/03/22 11/27/22 Rx release .COMPLEX #180 caps amitriptyline 10 mg tablet 30 mg PO .HS #270 tabs 07/31/22 11/27/22 Rx ondansetron HCl 4 mg tablet See Rx Instructions .Route 10/04/22 11/27/22 Rx .COMPLEX #40 ea hydrochlorothiazide 25 mg tablet 25 mg PO DAILY #90 tabs 12/04/22 Rx Laboratory Tests 01/06/23 14:13 WBC 6.2 K/mm3 (4.5-10.0) RBC 4.33 M/mm3 (4.2-5.4) Hgb 13.6 g/dL (12.0-15.0) Hct 43.3 % (37.0-47.0) MCV 100.0 fl (80-100) MCH 31.4 pg (26-34) MCHC 31.4 L g/dl (32-36) RDW 12.4 % (11.5-14.5) Plt Count 146 L k/mm3 (150-375) MPV 10.8 H fl (7.4-10.4) Immature Gran % (Auto) 0.5 % (0-0.5) Neut % (Auto) 72.2 % (45.5-73.1) Lymph % (Auto) 19.8 % (18.3-44.2) [place] % (Auto) 4.8 % (2.6-8.5) Eos % (Auto) 2.4 % (0-4.4) Baso % (Auto) 0.3 % (0.2-1.2) Lymph # (Auto) 1.23 K/mm3 (0.9-3.2) [place] # (Auto) 0.3 K/mm3 (0.1-0.6) Eos # (Auto) 0.2 K/mm3 (0-0.3) Baso # (Auto) 0.0 K/mm3 (0.0-0.1) Abs Immat Gran (auto) 0.03 K/mm3 (0.00-0.031) Absolute Neuts (auto) 4.5 K/mm3 (1.3-6.7) Absolute Nucleated RBC 0.0 K/mm3 (0.0-0.012) Nucleated RBC % 0.0 % (0.0-0.2) PT 13.3 Seconds (11.1-14.7) INR 1.0 APTT 39.6 H SECONDS (22.3-36.8) Sodium 139 mmol/L (137-145) Potassium 3.4 mmol/L (3.4-5.0) Chloride 106 mmol/L (98-107) Carbon Dioxide 26 mmol/L (22-30) Anion Gap 7 L mmol/L (8-16) BUN 15 mg/dL (7-17) Creatinine 0.60 L mg/dL (0.7-1.0) Estim Creat Clear Calc Not Reportable Estimated GFR > 60 (59 - ) Glucose 104 mg/dL (65-110) Calcium 8.9 mg/dL (8.4-10.2) Patient hx anesthesia problems: none Family hx anesthesia problems: none Results Review: All pre-operative results and documents have been reviewed as part of the pre-operative evaluation. [facility] Past Medical History Medical History Chronic bilateral low back pain without sciatica Coronary artery disease involving [place] coronary artery of [place] heart Essential hypertension Gastroesophageal reflux dise
--- NOTE | 2023-01-06 16:22 | PM.IMHP ---
H&P: HPI History of Present Illness Date/Time: 01/06/23 16:22 Chief Complaint: Hip pain due to fracture, right. Narrative: Patient presents status post fall with acute femoral neck fracture right. She tripped and fell on her right side had immediate pain with inability to bear weight. Review of Systems Musculoskeletal: Musculoskeletal: Reports arthralgias and Reports joint swelling PMFSH Past Medical History Medical History Chronic bilateral low back pain without sciatica Coronary artery disease involving [place] coronary artery of [place] heart Essential hypertension Gastroesophageal reflux disease H/O migraine Hypokalemia Hypothyroidism Mixed hyperlipidemia Prediabetes Primary osteoarthritis of left knee Seasonal allergic rhinitis Vertigo Vitamin B12 deficiency Vitamin D deficiency Social History Social History Smoking status: Never smoker Second hand tobacco smoke exposure: No Alcohol intake: never Substance use: never Substance use type: does not use Lack of Transportation: No Lack of Food: Never True Current Housing: I Have Housing Concerned About Future Housing: No Difficulty Paying Gas/Electric Bills: No Difficulty Paying for Meds: No Currently Unemployed: No Education: High School Diploma/GED Difficulty w/ Childcare or Family Care: No Living arrangements: with family Occupation/Education: retired Gender identity (if verbalized by the patient): Female Sexual Orientation (if Verbalized by the Patient): Straight or Heterosexual Spiritual care concerns: No Agree to blood products: Yes Meds Home Medications and Allergies Home Medications Medication Instructions Recorded Confirmed Type levothyroxine 25 mcg tablet 25 mcg PO DAILY #90 tabs 04/21/19 11/27/22 Rx meclizine 25 mg tablet 25 mg PO TID PRN dizziness 05/31/19 11/27/22 History ranolazine 500 mg tablet,extended 1,000 mg PO Q12H 05/02/20 11/27/22 History release,12 hr (Ranexa) nystatin 100,000 unit/gram topical 1 applic topical BID #30 grams 06/09/21 11/27/22 Rx cream isosorbide mononitrate 60 mg 60 mg PO DAILY #90 tabs 01/24/22 11/27/22 Rx tablet,extended release 24 hr calcium polycarbophil 625 mg 1,250 mg PO BID #120 tabs 04/11/22 11/27/22 Rx tablet (FiberCon) atorvastatin 40 mg tablet 40 mg PO DAILY #90 tabs 07/03/22 11/27/22 Rx losartan 100 mg tablet 100 mg PO DAILY #90 tabs 07/03/22 11/27/22 Rx omeprazole 20 mg capsule,delayed See Rx Instructions .Route 07/03/22 11/27/22 Rx release .COMPLEX #180 caps amitriptyline 10 mg tablet 30 mg PO .HS #270 tabs 07/31/22 11/27/22 Rx ondansetron HCl 4 mg tablet See Rx Instructions .Route 10/04/22 11/27/22 Rx .COMPLEX #40 ea hydrochlorothiazide 25 mg tablet 25 mg PO DAILY #90 tabs 12/04/22 Rx Allergies Allergy/AdvReac Type Severity Reaction Status Date / Time alendronate sodium Allergy Unknown Pt does Verified 11/27/22 09:27 remember levofloxacin Allergy Unknown Pt does Verified 11/27/22 09:27 not remember hydrocodone AdvReac Mild IF SHE Verified 11/27/22 09:27 TAKES 250 MG SHE IS OKAY, 500 MG SHE HAS NAUSEA AND V Vital Signs Vital Signs - 24 hr 01/06/23 11:29 01/06/23 14:36 01/06/23 15:52 Temperature 97.1 F L Pulse Rate 79 76 82 Respiratory Rate 18 20 20 Blood Pressure 191/101 H 178/93 H 161/74 H Pulse Oximetry 99 98 97 Oxygen Delivery Room Air Exam Narrative: Exam of the right hip is shortened and externally rotated neurologically she can wiggle her toes notes about it she has pain with any manipulation. She is unable to bear weight. H&P: Results Labs Labs: Short CBC 01/06/23 Range/Units 14:13 WBC 6.2 (4.5-10.0) K/mm3 Hgb 13.6 (12.0-15.0) g/dL Hct 43.3 (37.0-47.0) % Plt Count 146 L (150-375) k/mm3 BMP 01/06/23 14
[2023-01-06] MEDS: ceFAZolin SODIUM 1 GM VIAL IV PUSH ×2 (17:02→17:09)
[2023-01-06] MEDS: VANCOMYCIN 1,000 MG/NS 250 ML 1,000 MG/250 ML BAG 250 MG IVPB (17:26)
[2023-01-06] MEDS: ceFAZolin SODIUM 1 GM VIAL 3 GM (17:36)
--- NOTE | 2023-01-06 18:14 | W.PM.PROC2 ---
Procedure Note - Detailed Date of Procedure 01/06/23 Pre-op Diagnosis R hip pain/deformity s/p GLF Right Femoral Neck Fracture Post-op Diagnosis Same Procedure Performed Bipolar endoprosthetic replacement Surgeon Prosper Grimes MD Anesthesia General Description of Procedure Patient brought to operating room 7. A general anesthetic was administered. Patient was sterilely prepped and draped in the usual manner with the right hip up. After time-out a longitudinal incision made dissection carried down to the fascia. The fascia split in line and the Caceres approach was used. This exposed the femoral neck fracture. Femoral neck was cut a fingerbreadth above the lesser trochanter. The surrounding circumferential bone was intact at this level. The femoral head removed and measured 47 millimeters. Femur and broached to accept a 7. This was impacted into place with a +3 neck 28 millimeter head and a 47 millimeter bipolar. X-ray demonstrates good alignment of the bipolar. Implants Biomet Estimated Blood Loss 300 Complications No immediate complications [facility] Billing Surgery - Charge Forward: Surgery Billing
[2023-01-06] MEDS: LACTATED RINGERS 1,000 ML 30 ML IV CONT (18:55)
[2023-01-06] MEDS: fentaNYL CITRATE INJ (*CRX) 100 MCG/2 ML VIAL 25 MCG IV PUSH ×8 (19:05→20:07)
--- NOTE | 2023-01-06 20:35 | PM.IMHP ---
H&P: HPI History of Present Illness Date/Time: 01/06/23 21:30 Chief Complaint: Right hip pain after a fall. Narrative: This is a very pleasant 82-year-old female with hypertension, hyperlipidemia, and coronary artery disease who presented to the emergency department via EMS from home for evaluation of right hip pain after a ground level fall. The patient provides the following history. She does not have good balance and typically ambulates with a walker. Today however she went to walk around the kitchen table without her walker when she got tripped up in her feet and ?fell over like a tree? onto her right side. She had immediate pain in her right leg and was unable to get up due to the pain. Radiographs on arrival to the ED showed a right femoral neck fracture and she is now status post repair per Dr. Grimes. At the time my evaluation she reports a pretty severe pain in the hip which she is having difficulties describing. She denies paresthesias, skin color, and temperature changes distal to the surgical site. She denies head trauma and loss of consciousness in the fall today. She also denies antecedent symptoms and reports that the fall was purely mechanical. She sustained no other injuries in the fall. Review of Systems Review of Systems: Twelve systems were reviewed. No recent cold or flu symptoms. No fever, chills, or sweats. No chest pain or shortness of breath. No nausea, vomiting, or diarrhea. No dysuria. No history of venous thromboembolism. Except as documented, all other systems were reviewed and are negative. 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 Patient of Dr. Bereket Olson. Essential hypertension Gastroesophageal reflux disease Hypothyroidism Mixed hyperlipidemia Prediabetes Seasonal allergic rhinitis Vitamin B12 deficiency Vitamin D deficiency Surgical History Surgical History (Updated 01/06/23 @ 23:46 by Filomena Gonzalez PA-C) History of appendectomy History of cardiac catheterization Results as above. History of cataract extraction History of colonoscopy with polypectomy History of hysterectomy Family History Family History Father Lung cancer Sibling Breast cancer Social History Social History (Updated 01/06/23 @ 23:47 by Filomena Gonzalez PA-C) Social History: Surrogate medical decision maker: Jodi Lewis, daughter. Code status: Full code. Smoking status: Never smoker Second hand tobacco smoke exposure: No Alcohol intake: never Substance use: never Substance use type: does not use Lack of Transportation: No Lack of Food: Never True Current Housing: I Have Housing Concerned About Future Housing: No Difficulty Paying Gas/Electric Bills: No Difficulty Paying for Meds: No Currently Unemployed: No Education: High School Diploma/GED Difficulty w/ Childcare or Family Care: No Living arrangements: with family Additional living arrangements comments: The patient lives in [place] with her daughter Jodi. 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 Spiritual care concerns: No Agree to blood products: Yes Meds Home Medications and Allergies Home Medications Medication Instructions Recorded Confirmed Type ranolazine 500 mg tablet,extended 1,000 mg PO Q12H 05/02/20 01/06/23 History release,12 hr (Ranexa) atorvastatin 40 mg tablet 40 mg PO DAILY #90 tabs 07/03/22 01/06/23 Rx omeprazole 20 mg capsule,delayed See Rx Instructions .Route 07/03/22 01/06/23 Rx release .COMPLEX #180 caps amitriptyline 10 mg tablet 30 mg PO .HS #270 tabs 07/31/22 01/06/23 Rx hydrochlorothiazide 25 mg tablet 25 mg PO DAILY #90 tabs 12/04/22 01/06/23 Rx met
--- NOTE | 2023-01-06 21:19 | ADMGEN ---
This patient, Maude Milton, was admitted to Medical Room 341-01. Patient/family oriented to hospital policies and general routines including ID bracelet, bed and alarms, visiting hours, pain management, procedures, bathroom and other care routines, personal items, smoking policy, room service/diet, and visiting hours. Information on how to activate the Rapid Response Team has been discussed. Patient/Family are encouraged to report perceived risks to care and to ask questions if they do not understand what they are told or what they should do.
[2023-01-07] VITALS (7 sets, daily range): BP systolic 125–145; BP diastolic 51–78; PULSE 98–106; RESP 14–18; TEMP 36.4–37.2; O2SAT 91–98
[2023-01-07] MEDS: SODIUM CHLORIDE 0.9% IV 1,000 ML 125 ML IV CONT (00:45)
[2023-01-07] MEDS: ceFAZolin 1 GM/NS 50 ML 1 GM/50 ML BAG IVPB ×3 (00:46→17:37)
[2023-01-07] MEDS: MORPHINE SULFATE (*CRX) 2 MG/ML INJ IV PUSH ×2 (00:53→03:57)
[2023-01-07 06:26] LABS: Hematocrit 32.6 % (37.0-47.0); Hemoglobin 10.1 g/dL (12.0-15.0); Immature Platelet Fraction Pct 4.7 % (0.9-11.2); Mean Corpuscular Hemoglobin 31.1 pg (26-34); Mean Corpuscular Volume 100.3 fl (80-100); Mean Platelet Volume 10.9 fl (7.4-10.4); Platelet Count Result 146 k/mm3 (150-375); Red Blood Count 3.25 M/mm3 (4.2-5.4); Red Cell Distribution Width 12.7 % (11.5-14.5); White Blood Count 5.6 K/mm3 (4.5-10.0)
[2023-01-07 06:34] LABS: Alanine Aminotransferase 18 U/L (6-35); Albumin Level 3.1 g/dL (3.5-5.1); Alkaline Phosphatase 59 U/L (38-126); Anion Gap 4 mmol/L (8-16); Aspartate Amino Transferase 25 U/L (14-36); Bilirubin,Total 0.6 mg/dL (0.2-1.3); Blood Urea Nitrogen 15 mg/dL (7-17); Carbon Dioxide 30 mmol/L (22-30); Chloride 103 mmol/L (98-107); Estimated CRCL calculation 51 ml/min; Estimated Glomerular Filt Rate > 60; Glucose 136 mg/dL (65-110); Magnesium 1.5 mg/dL (1.6-2.3); Potassium 3.1 mmol/L (3.4-5.0); Sodium 137 mmol/L (137-145)
--- NOTE | 2023-01-07 07:37 | PM.PNORT ---
Progress Note: A&P Assessment and Plan (1) Fracture of femoral neck, right: Code(s): S72.001A - Fracture of unspecified part of neck of right femur, initial encounter for closed fracture Status: Acute Plan Patient is status post total bipolar endoprosthetic replacement hip fracture right. She is followed course. Will ambulate with anticipation of potentially chcf placement. Subjective Subjective Date/Time Seen: 01/07/23 07:37 Post Op day: 1 Principal diagnosis: Right Femoral Neck FX Interval history: Patient 1 day status post right femoral neck fracture with bipolar replacement. Complaints of pain and does neurologically intact. Review of Systems Musculoskeletal: Musculoskeletal: Reports arthralgias and Reports joint swelling Exam Narrative: Exam the dressing is intact to toes neurologically she appears to be intact. Objective Data Vital Signs Vital Signs: Vital Signs - 24 hr 01/06/23 11:29 01/06/23 14:36 01/06/23 15:52 Temperature 97.1 F L Pulse Rate 79 76 82 Respiratory Rate 18 20 20 Blood Pressure 191/101 H 178/93 H 161/74 H Pulse Oximetry 99 98 97 Oxygen Delivery Room Air Oxygen Flow Rate 01/06/23 18:55 01/06/23 19:10 01/06/23 19:25 Temperature 98.7 F Pulse Rate 93 94 90 Respiratory Rate 19 17 17 Blood Pressure 125/58 L 152/68 H 148/70 H Pulse Oximetry 97 100 100 Oxygen Delivery Simple Face Mask Simple Face Mask Simple Face Mask Oxygen Flow Rate 5 5 5 01/06/23 19:39 01/06/23 20:04 01/06/23 20:15 Temperature Pulse Rate 89 87 88 Respiratory Rate 12 12 12 Blood Pressure 146/65 H 155/71 H 143/66 H Pulse Oximetry 98 98 95 Oxygen Delivery Simple Face Mask Room Air Nasal Cannula Oxygen Flow Rate 5 2 01/06/23 20:20 01/06/23 21:15 01/06/23 21:30 Temperature 97.7 F 97.7 F Pulse Rate 88 90 91 Respiratory Rate 13 16 16 Blood Pressure 163/65 H 132/66 140/62 Pulse Oximetry 95 95 97 Oxygen Delivery Nasal Cannula Oxygen Flow Rate 2 01/06/23 22:00 01/06/23 23:05 01/07/23 04:02 Temperature 97.9 F 97.9 F 98.6 F Pulse Rate 94 100 99 Respiratory Rate 14 18 18 Blood Pressure 119/54 L 154/62 H 138/55 L Pulse Oximetry 94 96 95 Oxygen Delivery Oxygen Flow Rate Intake/Output Intake/Output: Intake & Output 01/04/23 01/05/23 01/06/23 01/07/23 23:59 23:59 23:59 23:59 Intake Total 500 150 Output Total 150 250 Balance 350 -100 Meds/Results Medications: Active Medications Generic Name Dose Route Start Last Admin Trade Name Freq PRN Reason Stop Dose Admin Acetaminophen 650 mg 01/06/23 23:50 Acetaminophen 325 Mg Tablet PO Q6H PRN Mild Pain (1-3) or Fever Hydrocodone Bitart/Acetaminophen 1 tab 01/07/23 00:37 Hydrocodone/Acetaminophen (*Crx) 5-325 Mg Tablet PO Q3H PRN Pain Rated 4-6 Hydrocodone Bitart/Acetaminophen 1 tab 01/07/23 00:37 Hydrocodone/Acetaminophen (*Crx) 7.5-325 Mg Tablet PO Q3H PRN Pain Rated 4-6 Sodium Chloride 1,000 mls @ 125 mls/hr 01/07/23 00:40 01/07/23 00:45 Normal Saline Iv IV CONT 125 mls/hr .Q8H MELISSA Administration Cefazolin Sodium 1 gm in 50 mls @ 100 mls/hr 01/07/23 01:00 01/07/23 01:16 Ancef 1 Gm/Ns 50 Ml IVPB 01/07/23 17:29 Infused Q8H MELISSA Infusion Potassium Chloride/Dextrose/Sod Cl 1,000 mls @ 80 mls/hr 01/07/23 00:40 01/07/23 06:51 Kcl 20 Meq/D5/0.45% Sod Chl IV CONT Not Given .[id number] [facility] Morphine Sulfate 2 mg 01/07/23 00:38 01/07/23 03:57 Morphine Sulfate (*Crx) 2 Mg/Ml Inj IV PUSH 2 mg Q3H PRN Administration Pain Rated 7-10 Naloxone HCl 0.1 mg 01/07/23 00:36 Naloxone Hcl 0.4 Mg/Ml Vial IV PUSH Q2M PRN Opiate Reversal Polyethylene Glycol 17 gm 01/07/23 09:00 Polyethylene Glycol 3350 17 Gm Powd.Pack PO QAM [facility] Rivaroxaban 10 mg 01/07/23 17:00 Rivaroxaban 10 Mg Tablet PO DAILY@17 MELISSA Senna/Docusate Sodium 2 tab 01/07/23 09:00 Senna/Docusate [place]
[2023-01-07] MEDS: SENNA/DOCUSATE SODIUM TABLET 2 TAB PO (08:32)
[2023-01-07] MEDS: polyethylene glycoL 3350 17 GM POWD.PACK PO (08:32)
[2023-01-07] MEDS: HYDROcodone/acetaminophen (*CRX) 7.5-325 MG TABLET 1 TAB PO ×3 (08:32→17:28)
--- NOTE | 2023-01-07 08:51 | PM.IMPN ---
Progress Note: A&P Assessment and Plan (1) Fracture of femoral neck, right: Code(s): S72.001A - Fracture of unspecified part of neck of right femur, initial encounter for closed fracture Status: Acute (2) Essential hypertension: Code(s): I10 - Essential (primary) hypertension Status: Acute (3) Mixed hyperlipidemia: Code(s): E78.2 - Mixed hyperlipidemia Status: Acute (4) Gastroesophageal reflux disease: Code(s): K21.9 - Gastro-esophageal reflux disease without esophagitis Status: Acute (5) Coronary artery disease: Code(s): I25.10 - Atherosclerotic heart disease of [place] coronary artery without angina pectoris Status: Acute Plan The patient presented to the emergency department via EMS from home for evaluation after a mechanical, ground level fall. Labs, imaging, EKG, and all reports were personally reviewed. She was found to have a right femoral neck fracture and she is now status post bipolar endoprosthetic replacement per Dr. Grimes. Wound care, pain control, and DVT prophylaxis will be deferred to Dr. Grimes. Analgesics available as needed. PT/OT when appropriate. She may need rehab placement prior to going home. Vital signs were reviewed and they are stable. Her antihypertensives will be reviewed and resumed as appropriate. No acute issues with regards to her coronary artery disease. Continue statin, beta-good, and ranolazine. The rest of her home medications will be reviewed and resumed as appropriate. Time Spent With Patient Time with patient: Greater than 35 minutes Subjective Date/time seen: 01/07/23 08:51 Review of Systems Review of Systems: Twelve systems were reviewed. No recent cold or flu symptoms. No fever, chills, or sweats. No chest pain or shortness of breath. No nausea, vomiting, or diarrhea. No dysuria. No history of venous thromboembolism. Except as documented, all other systems were reviewed and are negative. Exam Narrative: General: Well-developed female supine in bed in mild distress due to pain. Weight: 70.2 kg. BMI: 30.5. HEENT: PERRL, EOMI. Sclera anicteric. Tacky mucous membranes. Neck: Supple. Respiratory: Lungs are clear to auscultation bilaterally. Cardiovascular: Regular rate and rhythm with S1-S2. Gastrointestinal: Abdomen is soft, nontender, and nondistended with positive bowel sounds. Skin: Warm and dry. No rash or lesions on limited exam. Musculoskeletal: Right hip dressing is clean, dry, and intact. No significant swelling or bruising noted. She is neurovascularly intact distal to the fracture site. Extremities: No cyanosis, clubbing, or edema. Radial and pedal pulses intact. Neurological: Alert. Cranial nerves 2-12 are grossly intact. No gross focal deficits to casual conversation. Psychiatric: Pleasant and cooperative with normal mood and affect. Judgment and insight intact. Objective Data Vital Signs Vital Signs: Vital Signs - 24 hr 01/06/23 11:29 01/06/23 14:36 01/06/23 15:52 Temperature 97.1 F L Pulse Rate 79 76 82 Respiratory Rate 18 20 20 Blood Pressure 191/101 H 178/93 H 161/74 H Pulse Oximetry 99 98 97 Oxygen Delivery Room Air Oxygen Flow Rate 01/06/23 18:55 01/06/23 19:10 01/06/23 19:25 Temperature 98.7 F Pulse Rate 93 94 90 Respiratory Rate 19 17 17 Blood Pressure 125/58 L 152/68 H 148/70 H Pulse Oximetry 97 100 100 Oxygen Delivery Simple Face Mask Simple Face Mask Simple Face Mask Oxygen Flow Rate 5 5 5 01/06/23 19:39 01/06/23 20:04 01/06/23 20:15 Temperature Pulse Rate 89 87 88 Respiratory Rate 12 12 12 Blood Pressure 146/65 H 155/71 H 143/66 H Pulse Oximetry 98 98 95 Oxygen Delivery Simple Face Mask Room Air Nasal Cannula Oxygen Flow Rate 5 2 01/06/23 20:20 01/06/23 21:15 01/06/23 21:30 Temperature 97.7 F 97.7 F Pulse Rate 88 90 91 Respiratory Rate 13 16 16 Blood Pressure 163/65 H 132/66 140/62 Pulse Oximetry 95 95 97 Oxygen Delivery Na
[2023-01-07] MEDS: MAGNESIUM SULF 1 GM/D5W 100 ML 1 GM/100 ML BAG IVPB (13:01)
--- NOTE | 2023-01-07 13:10 | PM.IMPN ---
Progress Note: A&P Assessment and Plan (1) Fracture of femoral neck, right: Code(s): S72.001A - Fracture of unspecified part of neck of right femur, initial encounter for closed fracture Status: Acute Assessment and Plan: 01/07/2023: Patient is postop D1 bipolar endoprosthetic replacement PT and OT ordered patient will benefit from intermediate, case management to coordinate continue [place] 7.5/325 1 tab p.o. Q 3 p.r.n. pain Ortho following (2) Essential hypertension: Code(s): I10 - Essential (primary) hypertension Status: Acute Assessment and Plan: 01/07/23: B/P ranging from 119/54- 154/62 today Continue home medication losartan and metoprolol (3) Mixed hyperlipidemia: Code(s): E78.2 - Mixed hyperlipidemia Status: Acute Assessment and Plan: 01/07/23: Continue Atorvastatin 40 mg daily (4) Gastroesophageal reflux disease: Code(s): K21.9 - Gastro-esophageal reflux disease without esophagitis Status: Acute Assessment and Plan: 01/07/2023: Start Protonix 40mg daily, substitution omeprazole (5) Coronary artery disease: Code(s): I25.10 - Atherosclerotic heart disease of [place] coronary artery without angina pectoris Status: Acute Assessment and Plan: 01/07/23: Continue Ranexa and isosorbide Time Spent With Patient Time with patient: Greater than 35 minutes Subjective Date/time seen: 01/07/23 13:10 Interval history: Interval history: 01/07/23: This is a very pleasant 82-year-old female with a past history significant for hypertension, hyperlipidemia, and coronary artery disease who presented to the emergency room via EMS from home after a ground level fall. She was worked up for evaluation of right hip pain. Radiographs of the right hip revealed a right femoral neck fracture. Ortho was consulted. Patient was taken to the OR with Ortho on 01/06/2023 and is now postop day 1 from a total by a polar endoprosthetic replacement of a right hip fracture. On exam today patient alert and oriented x3. Daughter is present at the bedside. Patient is reporting 8/10 pain in the right hip. She did work with physical therapy today and got up to a chair which seem to aggravate her pain it a little bit more. Patient reports that she had a restful night. She denies any fever, chills, nausea, vomiting, diarrhea. Patient denies any numbness, tingling, or loss of sensation to right lower leg. She has good cap refill, her foot is warm, she denies any calf tenderness. She had no events overnight other than trying to control her pain. Labs today included white blood cell count of 5.6, potassium of 3.1, sodium 137, chloride 103, hemoglobin 10.1, hematocrit 32.6, BUN 15, creatinine 0.7, magnesium 1.5. Order placed for 40 mEq of potassium 1 g of Mag to be given today. Plan for today is to restart some of her home medications, she is to work with PT and OT, obtain better pain control, and meet with Case Management about placement for intermediate as she will need this on an outpatient basis. Review of Systems Review of Systems: All systems reviewed & are unremarkable except as noted in HPI and below Constitutional: Constitutional: Reports as per HPI and Reports no additional constitutional complaints Eyes: Eyes: Reports as per HPI and Reports no additional eye complaints ENT: Reports system reviewed and no additional complaints, except as documented and Reports as per HPI Cardiovascular: Cardiovascular: Reports as per HPI and Reports no additional cardiovascular complaints Respiratory: Respiratory: Reports as per HPI and Reports no additional respiratory complaints Gastrointestinal: Gastrointestinal: Reports as per HPI and Reports no additional gastrointestinal complaints Genitourinary: Genitourinary: Reports no additional female genitourinary complaints and Reports as per HPI Musculoskeletal: Musculoskeletal: Reports no additional m
[2023-01-07] MEDS: POTASSIUM CHLORIDE 10 MEQ ER TABLET 40 MEQ PO (13:40)
[2023-01-07] MEDS: RIVAROXABAN 10 MG TABLET PO (17:36)
[2023-01-07] MEDS: PANTOPRAZOLE 40 MG TABLET PO (17:36)
[2023-01-07] MEDS: RANOLAZINE 500 MG TAB.ER.12H 1000 MG PO (21:41)
[2023-01-08] VITALS (8 sets, daily range): BP systolic 93–135; BP diastolic 47–60; PULSE 78–103; RESP 14–18; TEMP 36.5–37.3; O2SAT 79–96
[2023-01-08] MEDS: MORPHINE SULFATE (*CRX) 2 MG/ML INJ IV PUSH (04:39)
[2023-01-08] MEDS: LEVOTHYROXINE SODIUM 25 MCG TABLET PO (04:42)
[2023-01-08 06:08] LABS: Anion Gap 2 mmol/L (8-16); Blood Urea Nitrogen 15 mg/dL (7-17); Calcium 7.7 mg/dL (8.4-10.2); Carbon Dioxide 29 mmol/L (22-30); Chloride 102 mmol/L (98-107); Estimated CRCL calculation 64 ml/min; Estimated Glomerular Filt Rate > 60; Glucose 127 mg/dL (65-110); Magnesium 1.9 mg/dL (1.6-2.3); Potassium 3.7 mmol/L (3.4-5.0); Sodium 133 mmol/L (137-145)
[2023-01-08 06:10] LABS: Hematocrit 29.1 % (37.0-47.0); Hemoglobin 9.3 g/dL (12.0-15.0); Mean Corpuscular Hemoglobin 31.6 pg (26-34); Mean Platelet Volume 10.9 fl (7.4-10.4); Platelet Count Result 106 k/mm3 (150-375); Red Blood Count 2.94 M/mm3 (4.2-5.4); Red Cell Distribution Width 12.4 % (11.5-14.5); White Blood Count 6.9 K/mm3 (4.5-10.0)
--- NOTE | 2023-01-08 08:10 | PM.IMPN ---
Progress Note: A&P Assessment and Plan (1) Fracture of femoral neck, right: Code(s): S72.001A - Fracture of unspecified part of neck of right femur, initial encounter for closed fracture Status: Acute Assessment and Plan: 01/07/2023: Patient is postop D1 bipolar endoprosthetic replacement PT and OT ordered patient will benefit from longterm, case management to coordinate continue [place] 7.5/325 1 tab p.o. Q 3 p.r.n. pain Ortho following 01/08/23: Patient is postop day 2 bipolar endoprosthetic replacement. Continue to work with PT and OT Case management following patient and looking for longterm facility for outpatient needs. Continue with [place] pain control Ortho following patient Patient currently on heart healthy diet however she is not taking in enough oral fluids, her urine is dark luis today, will give normal saline 500ml over 4 hours for hydration (2) Essential hypertension: Code(s): I10 - Essential (primary) hypertension Status: Acute Assessment and Plan: 01/07/23: B/P ranging from 119/54- 154/62 today Continue home medication losartan and metoprolol 01/08/23: Blood pressure today 135/55 and currently on home medications (3) Mixed hyperlipidemia: Code(s): E78.2 - Mixed hyperlipidemia Status: Acute Assessment and Plan: 01/07/23: Continue Atorvastatin 40 mg daily 01/08/23: No change to current treatment plan (4) Gastroesophageal reflux disease: Code(s): K21.9 - Gastro-esophageal reflux disease without esophagitis Status: Acute Assessment and Plan: 01/07/2023: Start Protonix 40mg daily, substitution omeprazole 01/08/23: No change to current treatment plan (5) Coronary artery disease: Code(s): I25.10 - Atherosclerotic heart disease of [place] coronary artery without angina pectoris Status: Acute Assessment and Plan: 01/07/23: Continue Ranexa and isosorbide 01/08/23: No change to current treatment plan Time Spent With Patient Time with patient: 25 - 35 minutes Subjective Date/time seen: 01/08/23 08:10 Interval history: Interval history: 01/07/23: This is a very pleasant 82-year-old female with a past history significant for hypertension, hyperlipidemia, and coronary artery disease who presented to the emergency room via EMS from home after a ground level fall. She was worked up for evaluation of right hip pain. Radiographs of the right hip revealed a right femoral neck fracture. Ortho was consulted. Patient was taken to the OR with Ortho on 01/06/2023 and is now postop day 1 from a total by a polar endoprosthetic replacement of a right hip fracture. On exam today patient alert and oriented x3. Daughter is present at the bedside. Patient is reporting 8/10 pain in the right hip. She did work with physical therapy today and got up to a chair which seem to aggravate her pain it a little bit more. Patient reports that she had a restful night. She denies any fever, chills, nausea, vomiting, diarrhea. Patient denies any numbness, tingling, or loss of sensation to right lower leg. She has good cap refill, her foot is warm, she denies any calf tenderness. She had no events overnight other than trying to control her pain. Labs today included white blood cell count of 5.6, potassium of 3.1, sodium 137, chloride 103, hemoglobin 10.1, hematocrit 32.6, BUN 15, creatinine 0.7, magnesium 1.5. Order placed for 40 mEq of potassium 1 g of Mag to be given today. Plan for today is to restart some of her home medications, she is to work with PT and OT, obtain better pain control, and meet with Case Management about placement for longterm as she will need this on an outpatient basis. 01/08/23: Examination today patient is alert to voice and oriented x3, she appears to be very tired and falling back asleep after a few minutes to stimulation. Daughter reports that patient may have slept for abo
--- NOTE | 2023-01-08 10:56 | PM.PNORT ---
Progress Note: A&P Assessment and Plan (1) Fracture of femoral neck, right: Code(s): S72.001A - Fracture of unspecified part of neck of right femur, initial encounter for closed fracture Status: Acute Plan Will continue with the rehab and the looking for placement at this point she can walk with a walker with touch weight-bearing at this time. Anticipate follow-up in the office in 2 weeks. Subjective Subjective Date/Time Seen: 01/08/23 10:56 Post Op day: 2 Principal diagnosis: Right Hip Fracture Interval history: Patient is status post bipolar right hip for fracture she is progressing slowly in the therapy and in recovery. Exam Narrative: Patient will wiggle her toes dressing is intact, minimal drainage. Objective Data Vital Signs Vital Signs: Vital Signs - 24 hr 01/07/23 11:18 01/07/23 13:08 01/07/23 14:00 Temperature 98.3 F Pulse Rate 102 H Respiratory Rate 18 Blood Pressure 145/51 H Pulse Oximetry 98 91 Oxygen Delivery Nasal Cannula Room Air Oxygen Flow Rate 2 01/07/23 21:48 01/07/23 20:00 01/08/23 04:51 Temperature 99.0 F 99.1 F Pulse Rate 106 H 106 H 103 H Respiratory Rate 14 14 14 Blood Pressure 125/78 135/55 L Pulse Oximetry 93 93 79 L Oxygen Delivery Room Air Oxygen Flow Rate 01/08/23 04:53 Temperature Pulse Rate 103 H Respiratory Rate 14 Blood Pressure Pulse Oximetry 92 Oxygen Delivery Oxygen Flow Rate Intake/Output Intake/Output: Intake & Output 01/05/23 01/06/23 01/07/23 01/08/23 23:59 23:59 23:59 23:59 Intake Total 500 730 240 Output Total 150 650 600 Balance 350 80 -360 Meds/Results Medications: Active Medications Generic Name Dose Route Start Last Admin Trade Name Freq PRN Reason Stop Dose Admin Acetaminophen 650 mg 01/06/23 23:50 Acetaminophen 325 Mg Tablet PO Q6H PRN Mild Pain (1-3) or Fever Hydrocodone Bitart/Acetaminophen 1 tab 01/07/23 16:51 01/07/23 17:28 Hydrocodone/Acetaminophen (*Crx) 7.5-325 Mg Tablet PO 1 tab Q3H PRN Administration Pain Rated 4-6 Atorvastatin Calcium 40 mg 01/08/23 09:00 Atorvastatin 40 Mg Tablet PO DAILY MELISSA Hydrochlorothiazide 25 mg 01/08/23 09:00 Hydrochlorothiazide 25 Mg Tablet PO DAILY [facility] Isosorbide Mononitrate 60 mg 01/08/23 09:00 Isosorbide Mononitrate 60 Mg Tab.Er.24h PO QAM MELISSA Levothyroxine Sodium 25 mcg 01/08/23 06:30 01/08/23 04:42 Levothyroxine Sodium 25 Mcg Tablet PO 25 mcg DAILY@0630 [facility] Administration Losartan Potassium 100 mg 01/08/23 09:00 Losartan Potassium 100 Mg Tablet PO DAILY [facility] Metoprolol Succinate 25 mg 01/08/23 09:00 Metoprolol Succinate Ext Rel 25 Mg Tabcr PO DAILY [facility] Morphine Sulfate 2 mg 01/07/23 00:38 01/08/23 04:39 Morphine Sulfate (*Crx) 2 Mg/Ml Inj IV PUSH 2 mg Q3H PRN Administration Pain Rated 7-10 Naloxone HCl 0.1 mg 01/07/23 00:36 Naloxone Hcl 0.4 Mg/Ml Vial IV PUSH Q2M PRN Opiate Reversal Polyethylene Glycol 17 gm 01/07/23 09:00 01/07/23 08:32 Polyethylene Glycol 3350 17 Gm Powd.Pack PO 17 gm QAM [facility] Administration Ranolazine 1,000 mg 01/07/23 13:30 01/07/23 21:41 Ranolazine 500 Mg Tab.Er.12h PO 1,000 mg Q12HR [facility] Administration Rivaroxaban 10 mg 01/07/23 17:00 01/07/23 17:36 Rivaroxaban 10 Mg Tablet PO 10 mg DAILY@17 [facility] Administration Senna/Docusate Sodium 2 tab 01/07/23 09:00 01/07/23 17:28 Senna/Docusate Sodium Tablet PO Not Given BID [facility] Radiology Results: ITS Impressions Head CT 01/06/23 14:02 IMPRESSION: No acute intracranial process. Chest X-Ray 01/06/23 14:10 IMPRESSION: Left lower lung subsegmental airspace disease may represent atelectasis or consolidation. Possible small left pleural effusion. Hip/Pelvis X-Ray 01/06/23 14:12 IMPRESSION: Transverse right femoral neck fracture. Intraoperative X-Ray
[2023-01-08] MEDS: polyethylene glycoL 3350 17 GM POWD.PACK PO (11:01)
[2023-01-08] MEDS: METOPROLOL SUCCINATE EXT REL 25 MG TABCR PO (11:01)
[2023-01-08] MEDS: ISOSORBIDE MONONITRATE 60 MG TAB.ER.24H PO (11:01)
[2023-01-08] MEDS: LOSARTAN POTASSIUM 100 MG TABLET PO (11:01)
[2023-01-08] MEDS: RANOLAZINE 500 MG TAB.ER.12H 1000 MG PO (11:01)
[2023-01-08] MEDS: ATORVASTATIN 40 MG TABLET PO (11:01)
[2023-01-08] MEDS: hydroCHLOROthiazide 25 MG TABLET PO (11:01)
[2023-01-08] MEDS: SENNA/DOCUSATE SODIUM TABLET 2 TAB PO (11:01)
[2023-01-08] MEDS: HYDROcodone/acetaminophen (*CRX) 7.5-325 MG TABLET 1 TAB PO (11:22)
--- NOTE | 2023-01-08 11:55 | PCOTNOTE ---
Attempted to see pt. for occupational therapy evaluation. Pt. drowsy and has reportedly been confused. Family states that they would prefer pt. be seen at later time due to safety concerns. Pt. in agreement that whe would not like to get out of bed at this time. Nursing aware. Following
[2023-01-08] MEDS: SODIUM CHLORIDE 0.9% IV 500 ML 125 ML IV CONT (13:47)
--- NOTE | 2023-01-08 14:14 | PC.NURSE ---
RN at bedside assessig patient. Patient IV is out. RN attempted to place another IV, but unsuccessful. RN called charge loaderKALLI nassar for new IV placement. Daughter is at bedside with patient. Patient is very drowsy. Patient knows who she is and what year it is, but does not know where she is. Patient keeps dosing off, but easy to arouse. Blood pressure is 93/44. RN asked PCT to obtain a manual blood pressure. RN is going to give fluids (see MAR) once IV access is obtained. Heart rate is 72. Oxygen was 80% on room air and RN put patient on 2L of oxygen and patient quickly recovered to 96%.
[2023-01-09] VITALS (7 sets, daily range): BP systolic 101–131; BP diastolic 40–77; PULSE 80–87; RESP 18; TEMP 36.1–36.8; O2SAT 93–97
[2023-01-09] MEDS: LEVOTHYROXINE SODIUM 25 MCG TABLET PO (05:57)
[2023-01-09 06:02] LABS: Hematocrit 25.6 % (37.0-47.0); Hemoglobin 8.1 g/dL (12.0-15.0); Mean Corpuscular HGB Conc 31.6 g/dl (32-36); Mean Corpuscular Hemoglobin 31.6 pg (26-34); Mean Platelet Volume 10.2 fl (7.4-10.4); Platelet Count Result 107 k/mm3 (150-375); Red Blood Count 2.56 M/mm3 (4.2-5.4); Red Cell Distribution Width 12.5 % (11.5-14.5)
[2023-01-09 06:16] LABS: Anion Gap 1 mmol/L (8-16); Blood Urea Nitrogen 28 mg/dL (7-17); Calcium 7.9 mg/dL (8.4-10.2); Carbon Dioxide 30 mmol/L (22-30); Chloride 102 mmol/L (98-107); Estimated CRCL calculation 44 ml/min; Estimated Glomerular Filt Rate 60; Glucose 107 mg/dL (65-110); Sodium 133 mmol/L (137-145)
[2023-01-09] MEDS: LOSARTAN POTASSIUM 100 MG TABLET PO (08:04)
[2023-01-09] MEDS: hydroCHLOROthiazide 25 MG TABLET PO (08:04)
[2023-01-09] MEDS: RANOLAZINE 500 MG TAB.ER.12H 1000 MG PO ×2 (08:04→20:13)
[2023-01-09] MEDS: ATORVASTATIN 40 MG TABLET PO (08:04)
[2023-01-09] MEDS: METOPROLOL SUCCINATE EXT REL 25 MG TABCR PO (08:05)
[2023-01-09] MEDS: SENNA/DOCUSATE SODIUM TABLET 2 TAB PO ×2 (08:05→17:32)
[2023-01-09] MEDS: ISOSORBIDE MONONITRATE 60 MG TAB.ER.24H PO (08:05)
[2023-01-09] MEDS: polyethylene glycoL 3350 17 GM POWD.PACK PO (08:07)
--- NOTE | 2023-01-09 14:12 | PM.PNORT ---
Progress Note: A&P Assessment and Plan (1) Fracture of femoral neck, right: Code(s): S72.001A - Fracture of unspecified part of neck of right femur, initial encounter for closed fracture Status: Acute Plan Patient is status post a bipolar endoprosthetic replacement right hip for femoral neck fracture. She is progressing slowly. I am working on prison placement. Subjective Subjective Date/Time Seen: 01/09/23 14:12 Post Op day: 3 Principal diagnosis: Patient is status post bipolar for hip fracture right. Interval history: Patient is progressing slowly postoperatively. She is having difficulty with ambulation in history actually getting out of bed. Review of Systems Musculoskeletal: Musculoskeletal: Reports as per HPI and Reports arthralgias Exam Narrative: Patient awake alert toes. Her dressing is intact. Objective Data Vital Signs Vital Signs: Vital Signs - 24 hr 01/08/23 18:20 01/08/23 20:00 01/08/23 20:23 Temperature 97.8 F Pulse Rate 78 78 Respiratory Rate 18 18 Blood Pressure 98/47 L Pulse Oximetry 92 92 92 Oxygen Delivery Room Air Oxygen Flow Rate 01/09/23 05:09 01/09/23 08:08 01/09/23 08:05 Temperature 97.9 F Pulse Rate 85 85 85 Respiratory Rate 18 Blood Pressure 113/40 L 113/55 L Pulse Oximetry 94 96 Oxygen Delivery Oxygen Flow Rate 01/09/23 08:00 Temperature Pulse Rate Respiratory Rate Blood Pressure Pulse Oximetry 96 Oxygen Delivery Nasal Cannula Oxygen Flow Rate 2 Intake/Output Intake/Output: Intake & Output 01/06/23 01/07/23 01/08/23 01/09/23 23:59 23:59 23:59 23:59 Intake Total 039 127 0985 480 Output Total 150 650 750 250 Balance 350 80 350 230 Meds/Results Medications: Active Medications Generic Name Dose Route Start Last Admin Trade Name Freq PRN Reason Stop Dose Admin Acetaminophen 650 mg 01/06/23 23:50 Acetaminophen 325 Mg Tablet PO Q6H PRN Mild Pain (1-3) or Fever Hydrocodone Bitart/Acetaminophen 1 tab 01/07/23 16:51 01/08/23 11:22 Hydrocodone/Acetaminophen (*Crx) 7.5-325 Mg Tablet PO 1 tab Q3H PRN Administration Pain Rated 4-6 Atorvastatin Calcium 40 mg 01/08/23 09:00 01/09/23 08:04 Atorvastatin 40 Mg Tablet PO 40 mg DAILY MELISSA Administration Hydrochlorothiazide 25 mg 01/08/23 09:00 01/09/23 08:04 Hydrochlorothiazide 25 Mg Tablet PO 25 mg DAILY MELISSA Administration Isosorbide Mononitrate 60 mg 01/08/23 09:00 01/09/23 08:05 Isosorbide Mononitrate 60 Mg Tab.Er.24h PO 60 mg QAM MELISSA Administration Levothyroxine Sodium 25 mcg 01/08/23 06:30 01/09/23 05:57 Levothyroxine Sodium 25 Mcg Tablet PO 25 mcg DAILY@0630 MELISSA Administration Losartan Potassium 100 mg 01/08/23 09:00 01/09/23 08:04 Losartan Potassium 100 Mg Tablet PO 100 mg DAILY MELISSA Administration Metoprolol Succinate 25 mg 01/08/23 09:00 01/09/23 08:05 Metoprolol Succinate Ext Rel 25 Mg Tabcr PO 25 mg DAILY MELISSA Administration Morphine Sulfate 2 mg 01/07/23 00:38 01/08/23 04:39 Morphine Sulfate (*Crx) 2 Mg/Ml Inj IV PUSH 2 mg Q3H PRN Administration Pain Rated 7-10 Naloxone HCl 0.1 mg 01/07/23 00:36 Naloxone Hcl 0.4 Mg/Ml Vial IV PUSH Q2M PRN Opiate Reversal Polyethylene Glycol 17 gm 01/07/23 09:00 01/09/23 08:07 Polyethylene Glycol 3350 17 Gm Powd.Pack PO 17 gm QAM MELISSA Administration Ranolazine 1,000 mg 01/07/23 13:30 01/09/23 08:04 Ranolazine 500 Mg Tab.Er.12h PO 1,000 mg Q12HR MELISSA Administration Rivaroxaban 10 mg 01/07/23 17:00 01/08/23 18:28 Rivaroxaban 10 Mg Tablet PO Not Given DAILY@17 MELISSA Senna/Docusate Sodium 2 tab 01/07/23 09:00 01/09/23 08:05 Senna/Docusate Sodium Tablet PO 2 tab BID MELISSA Administration Radiology Results: ITS Impressions Head CT 01/06/23 14:02 IMPRESSION: No acute intracranial process. Chest X-Ray 01/06/23 14:10
--- NOTE | 2023-01-09 16:17 | PM.IMPN ---
Progress Note: A&P Assessment and Plan (1) Fracture of femoral neck, right: Code(s): S72.001A - Fracture of unspecified part of neck of right femur, initial encounter for closed fracture Status: Acute Assessment and Plan: Patient is POD 3 bipolar endoprosthetic replacement PT and OT ordered patient will benefit from senior care, case management to coordinate continue Mena 7.5/325 1 tab p.o. Q 3 p.r.n. pain Ortho following (2) Essential hypertension: Code(s): I10 - Essential (primary) hypertension Status: Acute Assessment and Plan: Continue home medication losartan and metoprolol Will monitor (3) Mixed hyperlipidemia: Code(s): E78.2 - Mixed hyperlipidemia Status: Acute Assessment and Plan: Continue Atorvastatin 40 mg daily (4) Coronary artery disease: Code(s): I25.10 - Atherosclerotic heart disease of [place] coronary artery without angina pectoris Status: Acute Assessment and Plan: Continue Ranexa and isosorbide Subjective Date/time seen: 01/09/23 16:17 Interval history: Patient worked well with PT and OT today. Patient had catheter removed this morning. Still waiting for patient to void. If patient could not void will 3 insert Alvarez catheter and have her follow-up with Urology. Patient will most likely discharge tomorrow. Exam Narrative: GENERAL: Comfortable, no acute distress , drowsy HENMT: moist mucous membranes EYES: EOM intact b/l NECK: no lymphadenopathy RESPIRATORY: clear to auscultation CARDIO: RRR GI: soft, nontender, bowel sounds present SKIN: no rashes EXTREMITIES: no edema, redness or tenderness Objective Data Vital Signs Vital Signs: Vital Signs - 24 hr 01/08/23 18:20 01/08/23 20:00 01/08/23 20:23 Temperature 97.8 F Pulse Rate 78 78 Respiratory Rate 18 18 Blood Pressure 98/47 L Pulse Oximetry 92 92 92 Oxygen Delivery Room Air Oxygen Flow Rate 01/09/23 05:09 01/09/23 08:08 01/09/23 08:05 Temperature 97.9 F Pulse Rate 85 85 85 Respiratory Rate 18 Blood Pressure 113/40 L 113/55 L Pulse Oximetry 94 96 Oxygen Delivery Oxygen Flow Rate 01/09/23 08:00 01/09/23 14:56 Temperature 97.0 F L Pulse Rate 87 Respiratory Rate 18 Blood Pressure 131/61 Pulse Oximetry 96 93 Oxygen Delivery Nasal Cannula Oxygen Flow Rate 2 Intake/Output Intake/Output: Intake & Output 01/06/23 01/07/23 01/08/23 01/09/23 23:59 23:59 23:59 23:59 Intake Total 339 318 3890 480 Output Total 150 650 750 250 Balance 350 80 350 230 Meds/Results Medications: Active Medications Generic Name Dose Route Start Last Admin Trade Name Freq PRN Reason Stop Dose Admin Acetaminophen 650 mg 01/06/23 23:50 Acetaminophen 325 Mg Tablet PO Q6H PRN Mild Pain (1-3) or Fever Hydrocodone Bitart/Acetaminophen 1 tab 01/07/23 16:51 01/08/23 11:22 Hydrocodone/Acetaminophen (*Crx) 7.5-325 Mg Tablet PO 1 tab Q3H PRN Administration Pain Rated 4-6 Atorvastatin Calcium 40 mg 01/08/23 09:00 01/09/23 08:04 Atorvastatin 40 Mg Tablet PO 40 mg DAILY MELISSA Administration Hydrochlorothiazide 25 mg 01/08/23 09:00 01/09/23 08:04 Hydrochlorothiazide 25 Mg Tablet PO 25 mg DAILY MELISSA Administration Isosorbide Mononitrate 60 mg 01/08/23 09:00 01/09/23 08:05 Isosorbide Mononitrate 60 Mg Tab.Er.24h PO 60 mg QAM MELISSA Administration Levothyroxine Sodium 25 mcg 01/08/23 06:30 01/09/23 05:57 Levothyroxine Sodium 25 Mcg Tablet PO 25 mcg DAILY@0630 MELISSA Administration Losartan Potassium 100 mg 01/08/23 09:00 01/09/23 08:04 Losartan Potassium 100 Mg Tablet PO 100 mg DAILY MELISSA Administration Metoprolol Succinate 25 mg 01/08/23 09:00 01/09/23 08:05 Metoprolol Succinate Ext Rel 25 Mg Tabcr PO 25 mg DAILY MELISSA Administration Morphine Sulfate 2 mg 01/07/23 00:38 01/08/23 04:39 Morphine Sulfate (*Crx
[2023-01-09] MEDS: RIVAROXABAN 10 MG TABLET PO (17:32)
[2023-01-09] MEDS: ACETAMINOPHEN 325 MG TABLET 650 MG PO (17:32)
[2023-01-09] MEDS: ONDANSETRON INJ 4 MG/2 ML VIAL IV PUSH (18:30)
[2023-01-09 19:25] LABS: Appearance Urine Clear (Clear); Bilirubin Urine Negative (Negative); Blood Urine Negative (Negative); Color Urine Yellow (Yellow); Glucose Urine UA Negative (Negative); Ketones Urine Trace mg/dL (Negative); Leukocyte Esterase Ur Negative LEU/UL (Negative); Nitrate Urine Negative (Negative); Protein Urine Negative (Negative); Specific Grav Ur 1.016 (1.001-1.035)
[2023-01-09 19:29] LABS: Add Urine Microscopic? NO
[2023-01-10] MEDS: ACETAMINOPHEN 325 MG TABLET 650 MG PO ×2 (04:17→14:36)
[2023-01-10 05:49] LABS: Hematocrit 24.7 % (37.0-47.0); Hemoglobin 7.9 g/dL (12.0-15.0); Mean Corpuscular Hemoglobin 31.7 pg (26-34); Mean Corpuscular Volume 99.2 fl (80-100); Mean Platelet Volume 10.5 fl (7.4-10.4); Platelet Count Result 153 k/mm3 (150-375); Red Blood Count 2.49 M/mm3 (4.2-5.4); Red Cell Distribution Width 12.4 % (11.5-14.5); White Blood Count 5.4 K/mm3 (4.5-10.0)
[2023-01-10 05:58] LABS: Anion Gap 7 mmol/L (8-16); Blood Urea Nitrogen 27 mg/dL (7-17); Calcium 8.5 mg/dL (8.4-10.2); Carbon Dioxide 28 mmol/L (22-30); Chloride 99 mmol/L (98-107); Estimated CRCL calculation 55 ml/min; Estimated Glomerular Filt Rate > 60; Glucose 92 mg/dL (65-110); Potassium 3.7 mmol/L (3.4-5.0); Sodium 134 mmol/L (137-145)
[2023-01-10 06:00] VITALS: BP 118/49; PULSE 85; RESP 20; TEMP 36.9; O2SAT 96
[2023-01-10] MEDS: LEVOTHYROXINE SODIUM 25 MCG TABLET PO (06:00)
[2023-01-10 06:06] LABS: Transferrin 107 mg/dL (206-381)
[2023-01-10 06:26] LABS: Iron 18 ug/dL (37-170)
[2023-01-10 06:34] LABS: Percent Iron Saturation 9 % (20-50)
[2023-01-10 07:03] LABS: Folic Acid 6.1 ng/mL (2.76->20)
[2023-01-10] MEDS: SENNA/DOCUSATE SODIUM TABLET 2 TAB PO (09:13)
[2023-01-10] MEDS: CYANOCOBALAMIN TAB 2,000 MCG, CYANOCOBALAMIN TAB 500 MCG 2500 MCG PO (09:13)
[2023-01-10] MEDS: ATORVASTATIN 40 MG TABLET PO (09:13)
[2023-01-10 09:14] VITALS: PULSE 85
[2023-01-10] MEDS: RANOLAZINE 500 MG TAB.ER.12H 1000 MG PO (09:14)
[2023-01-10] MEDS: METOPROLOL SUCCINATE EXT REL 25 MG TABCR PO (09:14)
[2023-01-10] MEDS: LOSARTAN POTASSIUM 100 MG TABLET PO (09:14)
[2023-01-10] MEDS: IRON SUCROSE COMPLEX 500 MG in SODIUM CHLORIDE 0.9% IV 250 ML 78.57 MG IVPB (09:14)
[2023-01-10] MEDS: hydroCHLOROthiazide 25 MG TABLET PO (09:14)
[2023-01-10] MEDS: polyethylene glycoL 3350 17 GM POWD.PACK PO (09:14)
[2023-01-10] MEDS: ISOSORBIDE MONONITRATE 60 MG TAB.ER.24H PO (09:14)
[2023-01-10 10:49] LABS: IFOB Positive Control Positive; Immunochemical Fecal Occult Bl Negative (N)
--- NOTE | 2023-01-10 12:37 | PM.PNORT ---
Progress Note: A&P Assessment and Plan (1) Fracture of femoral neck, right: Code(s): S72.001A - Fracture of unspecified part of neck of right femur, initial encounter for closed fracture Status: Acute Plan Patient is status post bipolar right hip for femoral neck fracture. The incision is clean she is not having any drainage today. She is getting iron for the upper hemoglobin she seems to be getting around reasonably well. group home placement has been made. Follow-up 2 weeks for in the office. If she has any changes or problems she will call discussed. Subjective Subjective Date/Time Seen: 01/10/23 12:37 Post Op day: 3 Principal diagnosis: Bipolar right femoral neck fracture. Review of Systems Musculoskeletal: Musculoskeletal: Reports arthralgias and Reports joint swelling Exam Narrative: Patient is status post bipolar. Her incision is clean. Neurologically she appears to getting up and walking. No drainage today. Objective Data Vital Signs Vital Signs: Vital Signs - 24 hr 01/09/23 14:56 01/09/23 20:17 01/09/23 20:00 Temperature 97.0 F L 98.2 F Pulse Rate 87 80 80 Respiratory Rate 18 18 18 Blood Pressure 131/61 101/77 Pulse Oximetry 93 97 97 Oxygen Delivery Room Air 01/10/23 06:00 01/10/23 09:14 01/10/23 09:13 Temperature 98.4 F Pulse Rate 85 85 Respiratory Rate 20 Blood Pressure 118/49 L Pulse Oximetry 96 Oxygen Delivery Room Air Intake/Output Intake/Output: Intake & Output 01/07/23 01/08/23 01/09/23 01/10/23 23:59 23:59 23:59 23:59 Intake Total 730 1100 1000 540 Output Total 650 408 405 0346 Balance 80 350 650 -610 Meds/Results Medications: Active Medications Generic Name Dose Route Start Last Admin Trade Name Freq PRN Reason Stop Dose Admin Acetaminophen 650 mg 01/06/23 23:50 01/10/23 04:17 Acetaminophen 325 Mg Tablet PO 650 mg Q6H PRN Administration Mild Pain (1-3) or Fever Hydrocodone Bitart/Acetaminophen 1 tab 01/07/23 16:51 01/08/23 11:22 Hydrocodone/Acetaminophen (*Crx) 7.5-325 Mg Tablet PO 1 tab Q3H PRN Administration Pain Rated 4-6 Atorvastatin Calcium 40 mg 01/08/23 09:00 01/10/23 09:13 Atorvastatin 40 Mg Tablet PO 40 mg DAILY MELISSA Administration Cyanocobalamin 2,000 mcg/ 2,500 mcg 01/10/23 09:00 01/10/23 09:13 Cyanocobalamin 500 mcg PO 2,500 mcg QAM MELISSA Administration Hydrochlorothiazide 25 mg 01/08/23 09:00 01/10/23 09:14 Hydrochlorothiazide 25 Mg Tablet PO 25 mg DAILY MELISSA Administration Isosorbide Mononitrate 60 mg 01/08/23 09:00 01/10/23 09:14 Isosorbide Mononitrate 60 Mg Tab.Er.24h PO 60 mg QAM MELISSA Administration Levothyroxine Sodium 25 mcg 01/08/23 06:30 01/10/23 06:00 Levothyroxine Sodium 25 Mcg Tablet PO 25 mcg DAILY@0630 MELISSA Administration Losartan Potassium 100 mg 01/08/23 09:00 01/10/23 09:14 Losartan Potassium 100 Mg Tablet PO 100 mg DAILY [facility] Administration Metoprolol Succinate 25 mg 01/08/23 09:00 01/10/23 09:14 Metoprolol Succinate Ext Rel 25 Mg Tabcr PO 25 mg DAILY [facility] Administration Morphine Sulfate 2 mg 01/07/23 00:38 01/08/23 04:39 Morphine Sulfate (*Crx) 2 Mg/Ml Inj IV PUSH 2 mg Q3H PRN Administration Pain Rated 7-10 Naloxone HCl 0.1 mg 01/07/23 00:36 Naloxone Hcl 0.4 Mg/Ml Vial IV PUSH Q2M PRN Opiate Reversal Ondansetron HCl 4 mg 01/09/23 18:08 01/09/23 18:30 Ondansetron Inj 4 Mg/2 Ml Vial IV PUSH 4 mg Q6H PRN Administration Nausea And Vomiting Polyethylene Glycol 17 gm 01/07/23 09:00 01/10/23 09:14 Polyethylene Glycol 3350 17 Gm Powd.Pack PO 17 gm QAM MELISSA Administration Ranolazine 1,000 mg 01/07/23 13:30 01/10/23 09:14 Ranolazine 500 Mg Tab.Er.12h PO 1,000 mg Q12HR MELISSA Administration Rivaroxaban 10 mg 01/07/23 17:00 01/09/23 17:32 Rivaroxaban 10 Mg Tablet PO 10 mg DAILY@17 [facility] Administration Senna/Docusate
[2023-01-10 14:00] VITALS: BP 121/46; PULSE 79; RESP 16; TEMP 36.4; O2SAT 93
--- NOTE | 2023-01-10 14:25 | PM.DS ---
DS: Admitting Diagnosis Discharge Date 01/10/23 Admitting Diagnosis right hip fracture DS: Discharge Diagnosis Discharge Diagnosis (1) Fracture of femoral neck, right: Code(s): S72.001A - Fracture of unspecified part of neck of right femur, initial encounter for closed fracture Status: Acute (2) Essential hypertension: Code(s): I10 - Essential (primary) hypertension Status: Acute (3) Mixed hyperlipidemia: Code(s): E78.2 - Mixed hyperlipidemia Status: Acute (4) Coronary artery disease: Code(s): I25.10 - Atherosclerotic heart disease of [place] coronary artery without angina pectoris Status: Acute DS: Summary Hospital Course Hospital Course: This is a 82-year-old female with past medical history of hypertension, hyperlipidemia, CAD that presents to the ED on 01/06/2023 due to right hip pain after ground level fall. Patient was found to have a right hip fracture and Orthopedics was consulted. Patient underwent a bipolar endoprosthetic replacement of right hip on 01/06/2023. Patient worked with PT and OT afterwards. Patient was started on Xarelto. Patient took a little bit coming out of anesthesia before she was fully working well with PT and OT. She did have a drop in her hemoglobin which prompted anemia plan all which revealed a B12 deficiency. Patient was started on B12 injections as well as p.o. replacement. Is advised that she receive weekly B12 injections as well as p.o. replacement in a follow-up with her PCP. Orthopedics recommending toe-touch weight-bearing at this time as well as 2 week follow-up in their office. Time Spent with Patient Time attestation: Total time spent providing and/or coordinating discharge services: Exam Narrative: GENERAL: Comfortable, no acute distress , drowsy HENMT: moist mucous membranes EYES: EOM intact b/l NECK: no lymphadenopathy RESPIRATORY: clear to auscultation CARDIO: RRR GI: soft, nontender, bowel sounds present SKIN: no rashes EXTREMITIES: no edema, redness or tenderness DS: Data Data Completed and Pending Labs on day of discharge: Labs from last 24 hours 01/10/23 01/10/23 01/09/23 10:30 04:53 19:16 WBC 5.4 RBC 2.49 L Hgb 7.9 L Hct 24.7 L MCV 99.2 MCH 31.7 MCHC 32.0 RDW 12.4 Plt Count 153 MPV 10.5 H Sodium 134 L Potassium 3.7 Chloride 99 Carbon Dioxide 28 Anion Gap 7 L BUN 27 H Creatinine 0.70 Estim Creat Clear Calc 55 Estimated GFR > 60 Glucose 92 Calcium 8.5 Iron 18 L TIBC 191 L % Saturation 9 L Transferrin 107 L Ferritin 327.00 H Vitamin B12 200.0 L Folate 6.1 Urine Color Yellow Urine Appearance Clear Urine pH 5.0 Ur Specific [place] 1.016 Urine Protein Negative Urine Glucose (UA) Negative Urine Ketones Trace H Ur Blood (Man) Negative Urine Nitrate Negative Urine Bilirubin Negative Urine Urobilinogen 1.0 Leukocyte Esterase Rfl Negative Stl Occult Blood (IFOB) Negative Discharge Plan Discharge Attending physician on discharge: Dakota Apple Consulting providers: Prosper Grimes; Filomena Gonzalez Discharging Clinician: Joanne Jaeger Patient Disposition: [facility] Activity: as tolerated, follow weight bearing status and other - see discharge instructions Diet: regular Discharge Instructions: B12 injections weekly for 1 month then daily supplement thereafter. Voiding trial in 7-10 days with Urology or rehab facility. Take Tamsulosin daily. Take medications as prescribed Remain active, full weight-bearing status Continue with physical therapy and occupational therapy to improve strength and endurance and returned back to baseline strength Continue with fall precautions, remove rugs within the home, use hand rails when climbing stairs and use assistive devices when needed to ambulate Follow-up with primary care provider within 1 weeks
[2023-01-10 15:44] LABS: SARS-CoV-2 RNA PCR Negative (Negative)
== END 2023-01-10 17:30 | DRG 522 ==
LOC: ANHED 12:23 → ANHSURGERY 16:00 → ANH3MED 20:44
PROVIDERS: Internal Medicine Critical Care Medicine; Nurse Practitioner Acute Care; Physician Assistant; Admitting Provider Orthopaedic Surgery; Emergency Provider Emergency Medicine; PCP Family Medicine; Visit Provider Orthopaedic Surgery
PROC: 0SRR01A Replacement of Right Hip Joint, Femoral Surface with Metal Synthetic Substitute, Uncemented, Open Approach (ICD-10-PCS; CPT 27125; principal; 2023-01-06 16:30)
DX: S72.091A Other fracture of head and neck of right femur, initial encounter for closed fracture (principal); W01.0XXA Fall on same level from slipping, tripping and stumbling without subsequent striking against object, initial encounter; I10 Essential (primary) hypertension; E03.9 Hypothyroidism, unspecified; I25.10 Atherosclerotic heart disease of native coronary artery without angina pectoris; K21.9 Gastro-esophageal reflux disease without esophagitis; E78.2 Mixed hyperlipidemia; R73.03 Prediabetes; M17.12 Unilateral primary osteoarthritis, left knee; E66.9 Obesity, unspecified; D51.9 Vitamin B12 deficiency anemia, unspecified; Z68.35 Body mass index [BMI] 35.0-35.9, adult; Z11.52 Encounter for screening for COVID-19; Z90.49 Acquired absence of other specified parts of digestive tract; Z90.710 Acquired absence of both cervix and uterus
CPT/HCPCS: 36415; 70450; 71045; 73502; 80048; 80053; 81003; 82274; 82607; 82728; 82746; 83540; 83550; 83735; 84466; 85025; 85027; 85055; 85610; 85730; 87635; 93005; 96374; 96375; 96376; 97110; 97161; 97166; 97530; 97535; 99199; 99285; A9270; C1776; J0330; J0690; J1170; J1756; J2270; J2371; J2405; J2704; J3010; J3370; J3475; J7030; J7040; J7050; J7120

== ENCOUNTER 2023-02-08 15:57 | Outpatient (NON) | payer MEDICARE, SELFPAY ==
[2023-02-08 16:46] LABS: Appearance Urine Turbid (Clear); Bacteria Urine 4+ /hpf; Bilirubin Urine 1+ (Negative); Blood Urine 3+ (Negative); Color Urine Dark Yellow (Yellow); Glucose Urine UA Negative (Negative); Ketones Urine Negative (Negative); Leukocyte Esterase Ur 3+ LEU/UL (NEGATIVE); Nitrate Urine Negative (Negative); Non Pathogenic Casts 0-2; Protein Urine Trace mg/dL (Negative); RBC Urine >100 /hpf (0-2); Specific Grav Ur 1.015 (1.001-1.035); Squamous Epithelial Cell Urine None seen /hpf (Few); WBC Urine >100 /hpf (0-3); pH Urine 5.5 (5.0-9.0)
[2023-02-08 16:48] LABS: Add Urine Microscopic? YES
== END 2023-02-08 15:58 | disposition home or self-care (01) ==
LOC: HOME HLTH 16:00
PROVIDERS: PCP Family Medicine; Visit Provider Family Medicine
DX: E03.9 Hypothyroidism, unspecified (principal); E78.2 Mixed hyperlipidemia; I25.10 Atherosclerotic heart disease of native coronary artery without angina pectoris; S72.001D Fracture of unspecified part of neck of right femur, subsequent encounter for closed fracture with routine healing; N39.0 Urinary tract infection, site not specified
CPT/HCPCS: 81001; 87077; 87086; 87186

== ENCOUNTER 2023-02-11 11:19 | Outpatient (CLI) | payer MEDICARE, SELFPAY ==
--- NOTE | ~2023-02-11 | XR_ITS ---
Lumbosacral Spine: AP, oblique, and lateral views Clinical History: Pain Findings: Mild dextroscoliosis noted. There is mild compression deformity superior endplate of L2. No subluxation evident. There is moderate to advanced facet arthropathy from L3 through S1. The interve rtebral disc spaces are preserved. The sacroiliac joints are normally outlined. Impression: Mild compression deformity of L2, age-indeterminate. Moderate degenerative spondylosis with mild dextroscoliosis. Reviewed, dictated and finalized at location M. CLERK Impression: Mild compression deformity of L2, age-indeterminate. Moderate degenerative spondylosis with mild dextroscoliosis.
--- NOTE | ~2023-02-11 | XR_ITS ---
XR chest 2V DATE: 02/11/2023 12:18 INDICATION: Chest symptoms TECHNIQUE: AP and lateral views COMPARISON: 01/18/2023 AP chest. FINDINGS: There is discoid atelectasis and/or scarring at both lung bases. The lungs otherwise appear clear. No pleural effusion or pulmonary vascular congestion or pneumothorax is detected. Borderline heart size. Thoracic and abdominal aortic calcification. Diffuse osteopenia. Moderate anterior wedge compression fracture deformity of an upper lumbar vertebr a IMPRESSION: Bibasilar discoid atelectasis or scarring Reviewed, dictated and finalized at location B. TER MACHINE
[2023-02-11 12:35] LABS: Basophils Percent Auto 0.3 % (0.2-1.2); Eosinophils Absolute Auto 0.1 K/mm3 (0-0.3); Eosinophils Percent Auto 1.3 % (0-4.4); Hematocrit 35.8 % (37.0-47.0); Hemoglobin 10.8 g/dL (12.0-15.0); Immature Granulocyte Absolute 0.03 K/mm3 (0.00-0.031); Immature Granulocyte Percent A 0.5 % (0-0.5); Lymphocytes Absolute Auto 1.43 K/mm3 (0.9-3.2); Lymphocytes Percent Auto 23.9 % (18.3-44.2); Mean Corpuscular HGB Conc 30.2 g/dl (32-36); Mean Corpuscular Hemoglobin 30.3 pg (26-34); Mean Corpuscular Volume 100.6 fl (80-100); Mean Platelet Volume 10.6 fl (7.4-10.4); Monocytes Absolute Auto 0.6 K/mm3 (0.1-0.6); Neutrophils Absolute Auto 3.8 K/mm3 (1.3-6.7); Platelet Count Result 209 k/mm3 (150-375); Red Blood Count 3.56 M/mm3 (4.2-5.4); Red Cell Distribution Width 13.6 % (11.5-14.5)
[2023-02-11 12:48] LABS: Alanine Aminotransferase 13 U/L (6-35); Albumin Level 3.6 g/dL (3.5-5.1); Alkaline Phosphatase 104 U/L (38-126); Anion Gap 11 mmol/L (8-16); Aspartate Amino Transferase 18 U/L (14-36); Bilirubin,Total 0.6 mg/dL (0.2-1.3); Blood Urea Nitrogen 18 mg/dL (7-17); Calcium 8.7 mg/dL (8.4-10.2); Carbon Dioxide 30 mmol/L (22-30); Chloride 96 mmol/L (98-107); Estimated Glomerular Filt Rate > 60; Glucose 103 mg/dL (65-110); Potassium 3.3 mmol/L (3.4-5.0); Sodium 137 mmol/L (137-145)
[2023-02-11 12:51] LABS: Iron 45 ug/dL (37-170)
[2023-02-11 13:00] LABS: Percent Iron Saturation 19 % (20-50)
== END 2023-02-11 11:20 | disposition home or self-care (01) ==
PROVIDERS: PCP Family Medicine; Visit Provider Family Medicine
DX: M43.06 Spondylolysis, lumbar region (principal); M41.86 Other forms of scoliosis, lumbar region; D50.9 Iron deficiency anemia, unspecified; I10 Essential (primary) hypertension; R09.89 Other specified symptoms and signs involving the circulatory and respiratory systems
CPT/HCPCS: 36415; 71046; 72110; 80053; 82728; 83540; 83550; 85025

== ENCOUNTER 2023-03-05 14:52 | Outpatient (NON) | payer MEDICARE, SELFPAY ==
[2023-03-05 15:48] LABS: Appearance Urine Cloudy (Clear); Bacteria Urine None Seen /hpf; Bilirubin Urine Negative (Negative); Blood Urine Negative (Negative); Calcium Oxalate Crystals Urine Present /hpf; Color Urine Dark Yellow (Yellow); Glucose Urine UA Negative (Negative); Ketones Urine Negative (Negative); Leukocyte Esterase Ur 1+ LEU/UL (Negative); Need Manual Microscopic Reviewed; Nitrate Urine Negative (Negative); Non Pathogenic Casts 0-2; Protein Urine Negative (Negative); Specific Grav Ur 1.017 (1.001-1.035); Squamous Epithelial Cell Urine None seen /hpf (Few); WBC Urine 0-5 /hpf; pH Urine 5.5 (5.0-9.0)
[2023-03-05 15:49] LABS: Add Urine Microscopic? YES
== END 2023-03-05 14:53 | disposition home or self-care (01) ==
PROVIDERS: PCP Family Medicine; Visit Provider Family Medicine
DX: R30.0 Dysuria (principal); R73.03 Prediabetes
CPT/HCPCS: 81001; 87086; 87088

== ENCOUNTER 2023-03-28 13:57 | Emergency (ER) | payer MEDICARE, SELFPAY ==
[2023-03-28] VITALS (23 sets, daily range): BP systolic 105–146; BP diastolic 48–62; PULSE 87–100; RESP 16–31; TEMP 37.3; O2SAT 91–100
--- NOTE | ~2023-03-28 | CT_ITS ---
EXAMINATION: CT brain wo con DATE: 03/28/2023 17:03 INDICATION: mental status . TECHNIQUE: Computed tomography (CT) of the head was performed without intravenous contrast. The mA wa s adjusted according to patient size. Iterative reconstruction technique was employed. The dose-lengt h product was 605.33 mGy-cm. COMPARISON: 01/06/2023. FINDINGS: No acute intracranial hemorrhage or extra-axial fluid collection. No hydrocephalus, mass, or herniation. No acute ischemic infarct. Unremarkable dural venous sinus attenuation. No acute osseous abnormality. The aerated spaces are clear. Mild atrophy and chronic white matter change. Atherosclerotic intracranial calcification. Bilateral l ens replacements. IMPRESSION: No acute intracranial process. Reviewed, dictated and finalized at location K. RVENTIONAL NURSE
--- NOTE | ~2023-03-28 | CT_ITS ---
EXAMINATION: CT abdomen pelvis w con DATE: 03/28/2023 17:09 INDICATION: abdominal pain TECHNIQUE: Computed tomography (CT) of the abdomen and pelvis was performed with 100 mL Omnipaque-350 intravenous contrast. Automated exposure control and iterative reconstruction technique were employe d. The dose-length product was 617.75 mGy-cm. COMPARISON: X-ray lumbar spine 02/11/2023. FINDINGS: Lower thorax: Small pericardial effusion. Cardiomegaly. Moderate coronary artery calcification. Bilat eral dependent atelectasis and scarring. Small right pleural effusion. Liver: Normal. Biliary/Gallbladder: Dilated gallbladder. Gallstones. No inflammatory change. No bile duct dilation. Pancreas: Mild atrophy. Spleen: Normal. Adrenals:No mass. Kidneys: No suspicious mass, obstructing stone, or hydronephrosis. Bilateral simple renal cysts and h ypodensities that are too small to characterize but also likely represent simple cysts. GI tract: No small or large bowel dilation. Appendix not visualized. Diverticulosis without diverticu litis. Mesentery/Peritoneum: No ascites, mass, or free air. Retroperitoneum: No mass. Atherosclerotic abdominal aortic and/or arterial calcifications. Pelvis: Absent uterus. Mostly decompressed urinary bladder.. Soft Tissues: Soft tissues and body wall unremarkable. Bones: Increased superior endplate deformity at L2. Incompletely visualized but uncomplicated appear ing right hip hardware. IMPRESSION: Small pericardial effusion. Small right pleural effusion. Gallbladder hydrops of cholelithiasis. No CT evidence of cholecystitis. Correlate with symptoms of ri ght upper quadrant pain and biliary labs. Worsening now moderate compression deformity of L2, correlate with pain/tenderness. Reviewed, dictated and finalized at location K. REDUCTION EQUIPMENT OPERATOR IMPRESSION: Small pericardial effusion. Small right pleural effusion. Gallbladder hydrops of cholelithiasis. No CT evidence of cholecystitis. Correla te with symptoms of right upper quadrant pain and biliary labs. Worsening now moderate compression deformity of L2, correlate with pain/tendern ess.
--- NOTE | 2023-03-28 15:52 | ED.GENADULT ---
HPI - General Adult General Chief complaint: Back Pain/Injury Stated complaint: back pain Time Seen by Provider: 03/28/23 15:49 History of Present Illness HPI narrative: Patient is an 83-year-old female with history of chronic back pain, known lumbar compression fracture, chronic nausea and vomiting here with back pain, nausea, vomiting. Patient notes that she has been struggling with persistent nausea and intermittent vomiting over the last 4-5 years. She notes that over the last week this seems to have gotten worse. On she had multiple episodes of ?violent vomiting ?followed by extreme muscle weakness in all extremities and family had difficulty getting her to the bathroom. They noted that she seemed to have spasms in her bilateral upper and lower extremities during this episode and she had difficulty speaking. At that time she refused to be transported into the emergency department. She has had a poor appetite since this episode occurred and persistent nausea. She additionally notes that since this episode on she has been having muscle spasms which are located on her right back. She denies any numbness or weakness in her lower extremities, denies any saddle anesthesia or bowel or bladder incontinence. She notes this is typical to her prior back pain but the tramadol that she is prescribed at home does not seem to be helping the pain. She denies any urinary symptoms. She has been following with her primary care doctor regarding her nausea, vomiting and this episode of convulsions. They plan to refer to GI as well as Neurology. She has a scheduled primary care appointment for tomorrow. Their primary concern today is that her back pain has limited her ability to sleep at night because she is unable to get comfortable. Related Data Home Medications Medication Instructions Recorded Confirmed ranolazine 500 mg tablet,extended 1,000 mg PO Q12H 05/02/20 03/20/23 release,12 hr (Ranexa) metoprolol succinate 25 mg 25 mg PO DAILY 01/06/23 03/20/23 tablet,extended release 24 hr isosorbide mononitrate 60 mg 30 mg PO 01/07/23 03/20/23 tablet,extended release 24 hr losartan 100 mg tablet 100 mg PO DAILY 01/07/23 03/20/23 Allergies Allergy/AdvReac Type Severity Reaction Status Date / Time alendronate sodium Allergy Unknown Pt does Verified 03/20/23 11:05 remember levofloxacin Allergy Unknown Pt does Verified 03/20/23 11:05 not remember hydrocodone AdvReac Mild IF SHE Verified 03/20/23 11:05 TAKES 250 MG SHE IS OKAY, 500 MG SHE HAS NAUSEA AND V Review of Systems Review of Systems: All systems reviewed & are unremarkable except as noted in HPI and below PMFSH Past Medical History Medical History Arthritis Coronary artery disease Prior cardiac catheterization showed mild plaque in the LAD and 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 Patient of Dr. Bereket Olson. Essential hypertension Gastroesophageal reflux disease Hypothyroidism Mixed hyperlipidemia Prediabetes Seasonal allergic rhinitis Vitamin B12 deficiency Vitamin D deficiency Surgical History Surgical History History of appendectomy History of cardiac catheterization Results as above. History of cataract extraction History of colonoscopy with polypectomy History of hysterectomy Family History Family History Father Lung cancer Sibling Breast cancer Social History Social History Social History: Surrogate medical decision maker: Jodi Lewis, daughter. Code status: Full code. Smoking status: Never smoker Second hand tobacco smoke exposure: No Alcohol intake: never Substance use: never Substance use type: does not use Lack o
--- NOTE | 2023-03-28 16:30 | ECG_ITS ---
Measurements Intervals [place] Rate: 93 P: 125 WI: 161 QRS: -52 QRSD: 110 T: 126 QT: 410 QTc: 510 Interpretive Statements SINUS RHYTHM MARKED LEFT AXIS DEVIATION [QRS AXIS < -30] MODERATE T-WAVE ABNORMALITY, CONSIDER LATERAL ISCHEMIA [-0.1+ mV T WAVE IN I/aVL/V5/V6] COMPARED TO ECG 01/06/2023 14:07:44 NO SIGNIFICANT CHANGES Electronically Signed On 03-29-2023 16:28:15 SERVICE DESK SPECIALIST by Paul Franco M.D.
[2023-03-28 16:55] LABS: Basophils Percent Auto 0.1 % (0.2-1.2); Eosinophils Percent Auto 0.1 % (0-4.4); Hematocrit 41.1 % (37.0-47.0); Hemoglobin 12.9 g/dL (12.0-15.0); Immature Granulocyte Absolute 0.04 K/mm3 (0.00-0.031); Immature Granulocyte Percent A 0.4 % (0-0.5); Lymphocytes Absolute Auto 1.48 K/mm3 (0.9-3.2); Lymphocytes Percent Auto 14.9 % (18.3-44.2); Mean Corpuscular HGB Conc 31.4 g/dl (32-36); Mean Corpuscular Hemoglobin 29.3 pg (26-34); Mean Corpuscular Volume 93.2 fl (80-100); Mean Platelet Volume 10.2 fl (7.4-10.4); Monocytes Absolute Auto 0.9 K/mm3 (0.1-0.6); Monocytes Percent Auto 8.9 % (2.6-8.5); Neutrophils Absolute Auto 7.5 K/mm3 (1.3-6.7); Neutrophils Percent Auto 75.6 % (45.5-73.1); Platelet Count Result 154 k/mm3 (150-375); Red Blood Count 4.41 M/mm3 (4.2-5.4); White Blood Count 9.9 K/mm3 (4.5-10.0)
--- NOTE | 2023-03-28 16:56 | PC.NURSE ---
pt to CT scan at this time.
[2023-03-28 17:03] LABS: Estimated CRCL calculation 79 ml/min; Estimated Glomerular Filt Rate > 60
[2023-03-28 17:08] LABS: Alanine Aminotransferase 12 U/L (6-35); Albumin Level 4.2 g/dL (3.5-5.1); Alkaline Phosphatase 76 U/L (38-126); Anion Gap 10 mmol/L (8-16); Aspartate Amino Transferase 25 U/L (14-36); Blood Urea Nitrogen 17 mg/dL (7-17); CRP 7.9 mg/dL (<1.0); Calcium 9.7 mg/dL (8.4-10.2); Carbon Dioxide 30 mmol/L (22-30); Chloride 93 mmol/L (98-107); Estimated CRCL calculation 65 ml/min; Estimated Glomerular Filt Rate > 60; Glucose 119 mg/dL (65-110); Lipase 39 U/L (23-300); Magnesium 1.5 mg/dL (1.6-2.3); Potassium 3.6 mmol/L (3.4-5.0); Sodium 133 mmol/L (137-145)
[2023-03-28 17:17] LABS: Troponin I 0.023 ng/mL (0.000-0.034)
[2023-03-28 17:31] LABS: Influenza A QL RT-PCR Negative (Negative); Influenza B QL RT-PCR Negative (Negative); RSV RNA, RT-PCR Negative (Negative); SARS-CoV-2 RNA PCR Negative (Negative)
[2023-03-28] MEDS: SODIUM CHLORIDE 0.9% IV 500 ML 999 ML IV CONT (17:44)
[2023-03-28] MEDS: diazePAM INJ (*CRX) 10 MG/2 ML SYRINGE 2.5 MG IV PUSH (17:44)
[2023-03-28] MEDS: ONDANSETRON INJ 4 MG/2 ML VIAL IV PUSH (17:44)
[2023-03-28] MEDS: MAGNESIUM SULF 2 GM/WATER 50ML 2 GM/50 ML BAG IVPB (17:44)
[2023-03-28 17:55] LABS: Appearance Urine Clear (Clear); Bacteria Urine None Seen /hpf; Bilirubin Urine 1+ (Negative); Blood Urine Negative (Negative); Color Urine Dark Yellow (Yellow); Glucose Urine UA Negative (Negative); Ketones Urine 2+ mg/dL (Negative); Leukocyte Esterase Ur Negative LEU/UL (Negative); Nitrate Urine Negative (Negative); Non Pathogenic Casts 0-2; Protein Urine Trace mg/dL (Negative); Specific Grav Ur 1.066 (1.001-1.035); Squamous Epithelial Cell Urine None seen /hpf (Few); WBC Urine 0-5 /hpf
[2023-03-28 17:56] LABS: Add Urine Microscopic? YES
[2023-03-28] MEDS: HYDROcodone/acetaminophen (*CRX) 5-325 MG TABLET 1 TAB PO (19:00)
[2023-03-28] MEDS: KETOROLAC 15 MG/ML VIAL (*BKC) IV PUSH (19:03)
== END 2023-03-28 22:05 | disposition home or self-care (01) ==
PROVIDERS: Emergency Provider Student in an Organized Health Care Education/Training Program; PCP Family Medicine
DX: M54.50 Low back pain, unspecified (principal); R11.2 Nausea with vomiting, unspecified; Z20.822 Contact with and (suspected) exposure to COVID-19; G89.29 Other chronic pain; M48.56XA Collapsed vertebra, not elsewhere classified, lumbar region, initial encounter for fracture; I10 Essential (primary) hypertension; I25.10 Atherosclerotic heart disease of native coronary artery without angina pectoris; E03.9 Hypothyroidism, unspecified; E53.8 Deficiency of other specified B group vitamins; E55.9 Vitamin D deficiency, unspecified; K21.9 Gastro-esophageal reflux disease without esophagitis; M19.90 Unspecified osteoarthritis, unspecified site; Z98.49 Cataract extraction status, unspecified eye; Z86.010 Personal history of colon polyps; R94.31 Abnormal electrocardiogram [ECG] [EKG]; K80.20 Calculus of gallbladder without cholecystitis without obstruction
CPT/HCPCS: 36415; 70450; 74177; 80053; 81001; 83690; 83735; 84484; 85025; 86140; 87637; 93005; 96365; 96375; 99284; A9270; J1885; J2405; J3360; J3475; J7040; Q9967

== ENCOUNTER 2023-03-30 17:05 | Emergency (ER) | payer MEDICARE, SELFPAY ==
[2023-03-30] VITALS (32 sets, daily range): BP systolic 102–147; BP diastolic 47–89; PULSE 76–88; RESP 14–20; TEMP 36.6; O2SAT 94–100
--- NOTE | ~2023-03-30 | XR_ITS ---
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 RESULT: Lines, tubes, and devices: None. Lungs and pleura: Subsegmental bibasilar airspace disease, with linear scar and atelectasis. Mild le ft and moderate right costophrenic angle blunting. Cardiomediastinal silhouette: Stable. Other: No acute upper abdominal finding. New moderate height loss in a lower thoracic vertebral body . IMPRESSION: Bibasilar atelectasis/consolidation. Moderate right and mild left pleural effusions. New moderate hei ght loss in a lower thoracic vertebral body, correlate for pain/tenderness. Reviewed, dictated and finalized at location K. ROAD CROSSING PROTECTION MAINTAINER IMPRESSION: Bibasilar atelectasis/consolidation. Moderate right and mild left pleural effus ions. New moderate height loss in a lower thoracic vertebral body, correlate fo r pain/tenderness.
--- NOTE | 2023-03-30 17:32 | ECG_ITS ---
Measurements Intervals [place] Rate: 79 P: 70 [place]: 183 QRS: -42 QRSD: 118 T: 122 QT: 414 QTc: 476 Interpretive Statements SINUS RHYTHM MARKED LEFT AXIS DEVIATION [QRS AXIS < -30] MODERATE INTRAVENTRICULAR CONDUCTION DELAY [110+ ms QRS DURATION] MINIMAL VOLTAGE CRITERIA FOR LVH, CONSIDER NORMAL VARIANT [MEETS CRITERIA IN ONE OF: R(aVL), S(V1), R(V5), R(V5/V6)+S(V1)] MODERATE T-WAVE ABNORMALITY, CONSIDER LATERAL ISCHEMIA [-0.1+ mV T WAVE IN I/aVL/V5/V6] COMPARED TO ECG 03/28/2023 16:46:25 NO SIGNIFICANT CHANGES Electronically Signed On 03-31-2023 14:47:21 SPICE FUMIGATOR by Paul Franco M.D.
[2023-03-30 17:52] LABS: Basophils Percent Auto 0.1 % (0.2-1.2); Eosinophils Percent Auto 0.6 % (0-4.4); Hematocrit 37.4 % (37.0-47.0); Hemoglobin 11.8 g/dL (12.0-15.0); Immature Granulocyte Absolute 0.02 K/mm3 (0.00-0.031); Immature Granulocyte Percent A 0.3 % (0-0.5); Lymphocytes Absolute Auto 0.86 K/mm3 (0.9-3.2); Lymphocytes Percent Auto 12.6 % (18.3-44.2); Mean Corpuscular HGB Conc 31.6 g/dl (32-36); Mean Corpuscular Hemoglobin 29.7 pg (26-34); Mean Corpuscular Volume 94.2 fl (80-100); Mean Platelet Volume 10.3 fl (7.4-10.4); Monocytes Absolute Auto 0.5 K/mm3 (0.1-0.6); Monocytes Percent Auto 7.6 % (2.6-8.5); Neutrophils Absolute Auto 5.4 K/mm3 (1.3-6.7); Neutrophils Percent Auto 78.8 % (45.5-73.1); Platelet Count Result 160 k/mm3 (150-375); Red Blood Count 3.97 M/mm3 (4.2-5.4); Red Cell Distribution Width 12.9 % (11.5-14.5); White Blood Count 6.8 K/mm3 (4.5-10.0)
[2023-03-30 18:02] LABS: Alanine Aminotransferase 12 U/L (6-35); Albumin Level 3.5 g/dL (3.5-5.1); Alkaline Phosphatase 81 U/L (38-126); Anion Gap 9 mmol/L (8-16); Aspartate Amino Transferase 21 U/L (14-36); Bilirubin,Total 1.2 mg/dL (0.2-1.3); Blood Urea Nitrogen 18 mg/dL (7-17); Calcium 8.9 mg/dL (8.4-10.2); Carbon Dioxide 29 mmol/L (22-30); Chloride 93 mmol/L (98-107); Estimated Glomerular Filt Rate > 60; Glucose 124 mg/dL (65-110); Potassium 3.7 mmol/L (3.4-5.0); Sodium 131 mmol/L (137-145)
--- NOTE | 2023-03-30 18:55 | ED.WEAKNESS ---
HPI - Weakness General Chief complaint: Weakness Stated complaint: WEAKNESS Time Seen by Provider: 03/30/23 17:15 History of Present Illness HPI Narrative: Patient is an 83-year-old female presenting with generalized weakness. States that she has had decreased oral intake lately and has been generally weak. States that today she was unable to stand up from the toilet so her daughter called EMS. States she normally ambulates without assistance. Reports intermittent dysuria. States she had an episode of vomiting yesterday. No fevers, chest pain, cough, shortness of breath, focal weakness, numbness, diarrhea, leg swelling. Related Data Home Medications Medication Instructions Recorded Confirmed ranolazine 500 mg tablet,extended 1,000 mg PO Q12H 05/02/20 03/20/23 release,12 hr (Ranexa) metoprolol succinate 25 mg 25 mg PO DAILY 01/06/23 03/20/23 tablet,extended release 24 hr isosorbide mononitrate 60 mg 30 mg PO 01/07/23 03/20/23 tablet,extended release 24 hr losartan 100 mg tablet 100 mg PO DAILY 01/07/23 03/20/23 Allergies Allergy/AdvReac Type Severity Reaction Status Date / Time alendronate sodium Allergy Unknown Pt does Verified 03/30/23 17:30 remember levofloxacin Allergy Unknown Pt does Verified 03/30/23 17:30 not remember hydrocodone AdvReac Mild IF SHE Verified 03/30/23 17:30 TAKES 250 MG SHE IS OKAY, 500 MG SHE HAS NAUSEA AND V Review of Systems Review of Systems: All systems reviewed & are unremarkable except as noted in HPI and below PMFSH Past Medical History Medical History Arthritis Coronary artery disease Prior cardiac catheterization showed mild plaque in the LAD and 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 Patient of Dr. Bereket Olson. Essential hypertension Gastroesophageal reflux disease Hypothyroidism Mixed hyperlipidemia Prediabetes Seasonal allergic rhinitis Vitamin B12 deficiency Vitamin D deficiency Surgical History Surgical History History of appendectomy History of cardiac catheterization Results as above. History of cataract extraction History of colonoscopy with polypectomy History of hysterectomy Family History Family History Father Lung cancer Sibling Breast cancer Social History Social History Social History: Surrogate medical decision maker: Jodi Lewis, daughter. Code status: Full code. Smoking status: Never smoker Second hand tobacco smoke exposure: No Alcohol intake: never Substance use: never Substance use type: does not use Lack of Transportation: No Lack of Food: Never True Current Housing: I Have Housing Concerned About Future Housing: No Difficulty Paying Gas/Electric Bills: No Difficulty Paying for Meds: No Currently Unemployed: No Education: High School Diploma/GED Difficulty w/ Childcare or Family Care: No Living arrangements: with family Additional living arrangements comments: The patient lives in [place] with her daughter Jodi. 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 Spiritual care concerns: No Agree to blood products: Yes Exam Narrative: GENERAL: Nontoxic, no acute distress, pleasant cooperative HEAD: Normocephalic, atraumatic. EYES: PERRLA and EOMI. ENT: Mucous membranes dry NECK: Supple. CHEST: Clear to auscultation. No respiratory distress. HEART: Regular rate and rhythm ABDOMEN: Soft, nontender, nondistended EXTREMITIES: Normal range of motion. No edema. SKIN: Warm, dry, no rash. NEURO: No focal deficits. Alert and oriented x3. PSYCH: Normal mood and affect. Course Vital Signs Vital signs: Vital Signs Temperature 97.9 F 12
[2023-03-30 19:19] LABS: Appearance Urine Cloudy (Clear); Bacteria Urine None Seen /hpf; Bilirubin Urine 1+ (Negative); Blood Urine Negative (Negative); Color Urine Dark Yellow (Yellow); Glucose Urine UA Negative (Negative); Ketones Urine Trace mg/dL (Negative); Leukocyte Esterase Ur Trace LEU/UL (Negative); Need Manual Microscopic Reviewed; Nitrate Urine Negative (Negative); Protein Urine Trace mg/dL (Negative); RBC Urine 0-2 /hpf (0-2); Specific Grav Ur 1.016 (1.001-1.035); Squamous Epithelial Cell Urine Few /hpf (Few); WBC Urine 0-5 /hpf; pH Urine 5.5 (5.0-9.0)
[2023-03-30 19:21] LABS: Add Urine Microscopic? YES
[2023-03-30] MEDS: SODIUM CHLORIDE 0.9% IV 1,000 ML 999 ML IV CONT (19:39)
[2023-03-30 21:45] LABS: Influenza A QL RT-PCR Negative (Negative); Influenza B QL RT-PCR Negative (Negative); RSV RNA, RT-PCR Negative (Negative); SARS-CoV-2 RNA PCR Negative (Negative)
== END 2023-03-30 22:43 | disposition home or self-care (01) ==
PROVIDERS: Emergency Provider Emergency Medicine; PCP Family Medicine
DX: E86.0 Dehydration (principal); R53.1 Weakness; I25.10 Atherosclerotic heart disease of native coronary artery without angina pectoris; I10 Essential (primary) hypertension; E78.2 Mixed hyperlipidemia; E03.9 Hypothyroidism, unspecified; R73.03 Prediabetes; E55.9 Vitamin D deficiency, unspecified; E53.8 Deficiency of other specified B group vitamins; Z20.822 Contact with and (suspected) exposure to COVID-19
CPT/HCPCS: 36415; 71046; 80053; 81001; 85025; 87637; 93005; 96360; 99283; J7030

== ENCOUNTER 2023-04-08 07:45 | Outpatient (CLI) | payer MEDICARE, SELFPAY | END 2023-04-08 07:46 | disposition home or self-care (01) | LOC: ANHLAB 07:48 | PROVIDERS: PCP Family Medicine; Visit Provider Physician Assistant Medical | DX: R19.7 Diarrhea, unspecified (principal) | CPT/HCPCS: 87045; 87427; 87449 ==

== ENCOUNTER → 2023-04-09 15:13 | Outpatient (CLI) | payer MEDICARE, SELFPAY ==
--- NOTE | ~2023-04-09 | XR_ITS ---
EXAMINATION: XR chest 2V Exam Date/Time: 04/09/2023 15:30 TRACK WORKER HISTORY: J90 - Pleural effusion, not elsewhere classified Comparison: 03/30/2023. RESULT: Lines, tubes, and devices: None. Lungs and pleura: Subsegmental bibasilar airspace disease, with linear scar and atelectasis. Mild ri ght costophrenic angle blunting. Cardiomediastinal silhouette: Stable. Other: No acute osseous or upper abdominal finding. Stable moderate L2 compression deformity. IMPRESSION: Subsegmental bibasilar atelectasis/consolidation. Small right pleural effusion. Reviewed, dictated and finalized at location K. K WORKER
== END ==
PROVIDERS: PCP Family Medicine; Visit Provider Physician Assistant Medical
DX: J90 Pleural effusion, not elsewhere classified (principal); J18.1 Lobar pneumonia, unspecified organism
CPT/HCPCS: 71046

== ENCOUNTER 2023-05-15 00:31 | Day surgery (SDC) | payer MEDICARE, SELFPAY ==
[2023-04-19 11:02] VITALS: BMI 27.6
--- NOTE | 2023-05-13 11:23 | SUR.OPER ---
Patient called regarding upcoming procedure. Voicemail left regarding appointment times.
--- NOTE | 2023-05-14 14:23 | PM.HPGS ---
History of Present Illness History of Present Illness Consent: Risks, benefits, and alternatives have been discussed and questions answered. Patient agrees to proceed with procedure. Chief complaint: GERD,Diarrhea,Nausea/Vomiting Narrative: Maude Milton is a 83 year old female With nausea and vomiting almost daily for the past 2 months. During this period of time she has lost about 20 lb. She has also had episodes of diarrhea. It appears that she underwent endoscopy 6 years ago to investigate nausea and nothing was found. 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 Patient of Dr. Bereket Oslon. Diarrhea Essential hypertension Gastroesophageal reflux disease Hypothyroidism Mixed hyperlipidemia Prediabetes Seasonal allergic rhinitis Vitamin B12 deficiency Vitamin D deficiency Surgical History Surgical History History of appendectomy History of cardiac catheterization Results as above. History of cataract extraction History of colonoscopy with polypectomy History of hysterectomy Family History Family History Father Lung cancer Sibling Breast cancer Social History Social History Social History: Surrogate medical decision maker: Jodi Lewis, daughter. Code status: Full code. Smoking status: Never smoker Second hand tobacco smoke exposure: No Alcohol intake: never Substance use: never Substance use type: does not use Lack of Transportation: No Lack of Food: Never True Current Housing: I Have Housing Concerned About Future Housing: No Difficulty Paying Gas/Electric Bills: No Difficulty Paying for Meds: No Currently Unemployed: No Education: High School Diploma/GED Difficulty w/ Childcare or Family Care: No Living arrangements: with family Additional living arrangements comments: The patient lives in [place] with her daughter Jodi. 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 Spiritual care concerns: No Agree to blood products: Yes Meds Home Medications and Allergies Home Medications Medication Instructions Recorded Confirmed Type ranolazine 500 mg tablet,extended 1,000 mg PO Q12H 05/02/20 05/15/23 History release,12 hr (Ranexa) atorvastatin 40 mg tablet 40 mg PO DAILY #90 tabs 07/03/22 05/15/23 Rx omeprazole 20 mg capsule,delayed See Rx Instructions .Route 07/03/22 05/15/23 Rx release .COMPLEX #180 caps amitriptyline 10 mg tablet 30 mg PO .HS #270 tabs 07/31/22 05/15/23 Rx hydrochlorothiazide 25 mg tablet 25 mg PO DAILY #90 tabs 12/04/22 05/15/23 Rx metoprolol succinate 25 mg 25 mg PO DAILY 01/06/23 05/15/23 History tablet,extended release 24 hr isosorbide mononitrate 60 mg 30 mg PO DAILY 01/07/23 05/15/23 History tablet,extended release 24 hr cyanocobalamin (vitamin B-12) 2,500 mcg PO QAM #90 tabs 01/10/23 05/15/23 Rx 2,500 mcg tablet incentive spirometry #1 ea 02/11/23 04/19/23 Rx ondansetron HCl 4 mg tablet See Rx Instructions .Route 02/28/23 05/15/23 Rx .COMPLEX #40 ea levothyroxine 25 mcg tablet 25 mcg PO DAILY #90 tabs 03/20/23 05/15/23 Rx losartan 100 mg tablet See Rx Instructions .Route 04/22/23 05/15/23 Rx .COMPLEX #90 tabs Allergies Allergy/AdvReac Type Severity Reaction Status Date / Time alendronate sodium Allergy Unknown Pt does Verified 05/15/23 09:54 remember levofloxacin Allergy Unknown Pt does Verified 05/15/23 09:54 not remember hydrocodone AdvReac Mild IF SHE Verified 05/15/23 09:54
[2023-05-15 09:57] VITALS: BP 152/75; PULSE 85; RESP 16; TEMP 36.3; O2SAT 98
[2023-05-15] MEDS: LACTATED RINGERS 1,000 ML 150 ML IV CONT (10:14)
[2023-05-15] MEDS: AMPICILLIN 2 GM/NS 100 ML 2 GM/100 ML BAG IVPB (10:19)
--- NOTE | 2023-05-15 10:31 | WPDANESEPPF ---
Anes - Initial Pre Proc Eval Procedure: Operation Date: 05/15/23 11:00 Proposed Procedures p Esophagogastroduodenoscopy - Broderick Bowles MD Date/Time: 05/15/23 10:31 Surgeon: Broderick Bowles MD Pre Op Diagnosis: GERD,Diarrhea,Nausea/Vomiting Patient Data Age: 83 Gender: F Height: 1.6 m Weight: 73.8 kg Last Vital Signs Temp 97.4 F L 05/15/23 09:57 Pulse 85 05/15/23 09:57 Resp 16 05/15/23 09:57 BP 152/75 H 05/15/23 09:57 Pulse Ox 98 05/15/23 09:57 O2 Del Method Room Air 05/15/23 09:57 Allergies Allergy/AdvReac Type Severity Reaction Status Date / Time alendronate sodium Allergy Unknown Pt does Verified 05/15/23 09:54 remember levofloxacin Allergy Unknown Pt does Verified 05/15/23 09:54 not remember hydrocodone AdvReac Mild IF SHE Verified 05/15/23 09:54 TAKES 250 MG SHE IS OKAY, 500 MG SHE HAS NAUSEA AND V Home Medications Medication Instructions Recorded Confirmed Type ranolazine 500 mg tablet,extended 1,000 mg PO Q12H 05/02/20 05/15/23 History release,12 hr (Ranexa) atorvastatin 40 mg tablet 40 mg PO DAILY #90 tabs 07/03/22 05/15/23 Rx omeprazole 20 mg capsule,delayed See Rx Instructions .Route 07/03/22 05/15/23 Rx release .COMPLEX #180 caps amitriptyline 10 mg tablet 30 mg PO .HS #270 tabs 07/31/22 05/15/23 Rx hydrochlorothiazide 25 mg tablet 25 mg PO DAILY #90 tabs 12/04/22 05/15/23 Rx metoprolol succinate 25 mg 25 mg PO DAILY 01/06/23 05/15/23 History tablet,extended release 24 hr isosorbide mononitrate 60 mg 30 mg PO DAILY 01/07/23 05/15/23 History tablet,extended release 24 hr cyanocobalamin (vitamin B-12) 2,500 mcg PO QAM #90 tabs 01/10/23 05/15/23 Rx 2,500 mcg tablet incentive spirometry #1 ea 02/11/23 04/19/23 Rx ondansetron HCl 4 mg tablet See Rx Instructions .Route 02/28/23 05/15/23 Rx .COMPLEX #40 ea levothyroxine 25 mcg tablet 25 mcg PO DAILY #90 tabs 03/20/23 05/15/23 Rx losartan 100 mg tablet See Rx Instructions .Route 04/22/23 05/15/23 Rx .COMPLEX #90 tabs Patient hx anesthesia problems: none Family hx anesthesia problems: none Results Review: All pre-operative results and documents have been reviewed as part of the pre-operative evaluation. 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 Patient of Dr. Bereket Olson. Diarrhea Essential hypertension Gastroesophageal reflux disease Hypothyroidism Mixed hyperlipidemia Prediabetes Seasonal allergic rhinitis Vitamin B12 deficiency Vitamin D deficiency Surgical History Surgical History History of appendectomy History of cardiac catheterization Results as above. History of cataract extraction History of colonoscopy with polypectomy History of hysterectomy Family History Family History Father Lung cancer Sibling Breast cancer Social History Social History Social History: Surrogate medical decision maker: Jodi Lewis, daughter. Code status: Full code. Smoking status: Never smoker Second hand tobacco smoke exposure: No Alcohol intake: never Substance use: never Substance use type: does not use Lack of Transportation: No Lack of Food: Never True Current Housing: I Have Housing Concerned About Future Housing: No Difficulty Paying Gas/Electric Bills: No Difficulty Paying for Meds: No Currently Unemployed: No Education: High School Diploma/GED Difficulty w/ Childcare or Family Care: No Living arrangements: with family Additional living arrangements comments: The patient lives in [place] with her daughter Jodi. 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
[2023-05-15 11:11] VITALS: BP 126/61; PULSE 88; RESP 21; O2SAT 100
[2023-05-15 11:21] VITALS: BP 130/59; PULSE 84; RESP 17; O2SAT 100
[2023-05-15 11:31] VITALS: BP 136/66; PULSE 81; RESP 21; O2SAT 100
== END 2023-05-15 11:41 | disposition home or self-care (01) ==
PROVIDERS: PCP Family Medicine; Visit Provider Internal Medicine Gastroenterology
PROC: 0DJ08ZZ Inspection of Upper Intestinal Tract, Via Natural or Artificial Opening Endoscopic (ICD-10-PCS; CPT 43235; principal; 2023-05-15 11:00)
DX: K29.70 Gastritis, unspecified, without bleeding (principal); K21.9 Gastro-esophageal reflux disease without esophagitis; K31.7 Polyp of stomach and duodenum; I25.10 Atherosclerotic heart disease of native coronary artery without angina pectoris; I10 Essential (primary) hypertension; E78.2 Mixed hyperlipidemia; R73.03 Prediabetes; E03.9 Hypothyroidism, unspecified; E55.9 Vitamin D deficiency, unspecified; E53.8 Deficiency of other specified B group vitamins
CPT/HCPCS: 43239; 87081; J0290; J2704; J7120

== ENCOUNTER 2024-05-01 19:33 | Inpatient (IN) | payer MEDICARE, SELFPAY ==
--- NOTE | ~2024-05-01 | CT_ITS ---
EXAMINATION: CT abdomen pelvis w con DATE: 05/02/2024 01:11 INDICATION: Generalized abdominal pain. TECHNIQUE: Computed tomography (CT) of the abdomen and pelvis was performed with 100 mL Omnipaque 350 intravenous contrast. Automated exposure control and iterative reconstruction technique were employe d. The dose-length product was 1176.47 mGy-cm. COMPARISON: CT abdomen and pelvis 03/28/2023 FINDINGS: The visualized portions of lung bases demonstrate mild atelectasis. There is mild bronchiec tasis bilaterally. No pleural effusion. The heart size is normal. There are coronary artery calcifica tions. No pericardial effusion. The liver is normal. Calcifications in the spleen are consistent with old granulomatous disease. There are gallstones in the gallbladder, which is distended with wall thi ckening and surrounding fat stranding, consistent with acute cholecystitis. The pancreas and adrenal glands are normal. There are cysts in the kidneys measuring up to 7 mm on the left. There are no dila ana maria loops of bowel. The appendix is not visualized. There is calcified atherosclerosis of the aorta a nd many of the other arteries. There are no pathologically enlarged lymph nodes. There is no free int raperitoneal fluid. There is a right hip arthroplasty. There is a chronic burst fracture of L2. There is severe lower lumbar spondylosis. IMPRESSION: 1. Acute cholecystitis. Reviewed, dictated and finalized at location A. Y DRIVER IMPRESSION: 1. Acute cholecystitis.
--- NOTE | ~2024-05-01 | CT_ITS ---
EXAMINATION: CT brain wo con DATE: 05/05/2024 10:48 INDICATION: Mental status change. TECHNIQUE: Computed tomography (CT) of the head was performed without intravenous contrast. The mA wa s adjusted according to patient size. Iterative reconstruction technique was employed. The dose-lengt h product was 681.00 mGy-cm. COMPARISON: Head CT 03/28/2023 FINDINGS: There are scattered areas of low attenuation in the cerebral white matter. There is no intr acranial hemorrhage, acute infarction, or abnormal intracranial mass lesion. The ventricles are gail l in size. There is mild mucosal thickening in the ethmoid sinuses. The mastoid air cells are normal. There are likely changes of ocular lens replacement surgeries. IMPRESSION: 1. Stable moderate nonspecific cerebral white matter disease, which likely represents chronic small v essel ischemic disease. Reviewed, dictated and finalized at location A. RINARY MILK SPECIALIST IMPRESSION: 1. Stable moderate nonspecific cerebral white matter disease, which likely repr esents chronic small vessel ischemic disease.
--- NOTE | ~2024-05-01 | US_ITS ---
EXAMINATION: US right upper quadrant DATE: 05/02/2024 13:46 INDICATION: Cholecystitis. TECHNIQUE: Multiple grayscale and Doppler ultrasound images of the abdomen were obtained. COMPARISON: CT abdomen and pelvis 05/02/2024 FINDINGS: The visualized portions of the head and body of the pancreas are normal. The liver is gail l without focal lesion. There is normal flow in main portal vein. The gallbladder is distended and co ntains sludge and stones. Gallbladder wall thickening is noted. There is no sonographic Hernandez's sign . The common duct is normal and measures 5 mm. IMPRESSION: 1. Acute cholecystitis. Reviewed, dictated and finalized at location A. RETE SPREADER IMPRESSION: 1. Acute cholecystitis.
--- NOTE | ~2024-05-01 | US_ITS ---
EXAMINATION: US perc cholecystostomy w imag DATE: 05/06/2024 15:08 INDICATION: Acute cholecystitis. TECHNIQUE: The procedure including the risks, benefits, and alternatives was discussed with the patie nt. Risks discussed included bleeding including bleeding and infection. Oral and written consent were obtained. The skin overlying the gallbladder was prepped and draped in usual sterile fashion. Anes thetic was administered with 1% lidocaine subcutaneously. An 8.5 Fr catheter was inserted into the g allbladder by trocar technique. The metal stiffener and trocar needle were removed, and the pigtail t ip was locked. Bile was aspirated and sent for culture. The catheter was stitched to the skin with cary ture. There were no immediate complications. FINDINGS: Ultrasound images demonstrate the catheter within the gallbladder. 8 mL bile was aspirated. IMPRESSION: 1. Successful ultrasound-guided cholecystostomy tube placement. 2. 8 mm clear, orange bile was sent for aerobic and anaerobic cultures. 3. The catheter will be managed by Dr. Mckenzie. A catheter cholangiogram may be performed not less than 48 hours after tube placement if clinically indicated to assess cystic duct patency. If cholecystect salima is not eventually performed and the infectious episode has resolved, the tube may be removed over a guidewire, preferably not less than 3 weeks after placement to allow time for a mature catheter tr act to form to prevent bile leakage and peritonitis. Reviewed, dictated and finalized at location A. FING DIRECTOR IMPRESSION: 1. Successful ultrasound-guided cholecystostomy tube placement. 2. 8 mm clear, orange bile was sent for aerobic and anaerobic cultures. 3. The catheter will be managed by Dr. Mckenzie. A catheter cholangiogram may be p erformed not less than 48 hours after tube placement if clinically indicated to assess cystic duct patency. If cholecystectomy is not eventually performed and the infectious episode has resolved, the tube may be removed over a guidewire, preferably not less than 3 weeks after placement to allow time for a mature ca theter tract to form to prevent bile leakage and peritonitis.
--- NOTE | ~2024-05-01 | CT_ITS ---
EXAMINATION: CTA brain carotid DATE: 05/05/2024 12:16 INDICATION: Altered mental status. TECHNIQUE: Computed tomographic angiography (CTA) of the head was performed with 100 mL Omnipaque-350 intravenous contrast. CTA of the neck was performed with intravenous contrast. Automated exposure co ntrol and iterative reconstruction technique were employed. The dose-length product was 948.78 mGy-cm . Maximum intensity projection and volume rendered 3D-reconstructions were created by the [employer] t on a separate workstation. COMPARISON: Head CT 05/05/2023 FINDINGS: HEAD CTA: There are scattered areas of low attenuation in the cerebral white matter. There is no intr acranial hemorrhage, acute infarction, or abnormal intracranial mass lesion. The ventricles are gail l in size. The mastoid air cells are normal. There is mild mucosal thickening in the paranasal sinuse s. There are likely changes of ocular lens replacement surgeries. Left vertebral artery is dominant. There is no significant stenosis of basilar artery or the posterior cerebral arteries. There is no si gnificant stenosis of the intracranial internal carotid arteries or anterior or middle cerebral arter ies. Anterior communicating artery is normal. There is no aneurysm. The posterior communicating arter ies are normal. NECK CTA: There is mild scarring at the lung apices. There are no pathologically enlarged lymph nodes . There is no significant stenosis of the vertebral arteries. There is plaque in the proximal interna l carotid arteries. There is 0% stenosis of the proximal right internal carotid artery relative to no rmal distal artery lumen diameter (NASCET criteria). There is 0% stenosis of the proximal left geotechnical intern al carotid artery relative to normal distal artery lumen diameter. There is severe spondylosis at C6- C7. There is mild chronic anterior wedging of T1-T3 vertebral bodies. IMPRESSION: 1. Moderate nonspecific cerebral white matter disease, which likely represents chronic small vessel i schemic disease. 2. No aneurysm or significant intracranial arterial stenosis. 3. 0% stenosis of the proximal internal carotid arteries relative to normal distal artery lumen diame ters (NASCET criteria). Reviewed, dictated and finalized at location A. H CERTIFICATE CLERK IMPRESSION: 1. Moderate nonspecific cerebral white matter disease, which likely represents chronic small vessel ischemic disease. 2. No aneurysm or significant intracranial arterial stenosis. 3. 0% stenosis of the proximal internal carotid arteries relative to normal dis bryant artery lumen diameters (NASCET criteria).
--- NOTE | ~2024-05-01 | CT_ITS ---
EXAMINATION: CT chest abdomen pelvis wo con DATE: 05/05/2024 15:07 INDICATION: Fever. TECHNIQUE: Computed tomography (CT) of the chest, abdomen, and pelvis was performed without intraveno us contrast. Automated exposure control and iterative reconstruction technique were employed. The dos e-length product was 1479.05 mGy-cm. COMPARISON: CT abdomen and pelvis 05/02/2024 FINDINGS: CHEST CT: There is mild scarring at the lung apices. There is mild atelectasis bilaterally. There are small rig ht and trace left pleural effusions. The heart size is normal. There are coronary artery calcificatio ns. No pericardial effusion. Calcified right hilar lymph nodes are consistent with old granulomatous disease. There is mild thoracic spondylosis. ABDOMEN/PELVIS CT: The liver demonstrates periportal edema. The gallbladder is distended with gallstones and surrounding fat stranding. Calcifications in the spleen are consistent with old granulomatous disease. The pancr eas and adrenal glands are normal. There is cortical thinning in the kidneys. There is a Alvarez cathet er in expected position. There are no dilated loops of bowel. The appendix is not visualized. There a re no pathologically enlarged lymph nodes. There is trace ascites. There is perirectal edema. Body wa ll edema is noted. There is a right hip arthroplasty. There is a chronic compression fracture of L2. There is severe lower lumbar spondylosis. IMPRESSION: 1. Worsened acute cholecystitis. 2. Small right pleural effusion. Reviewed, dictated and finalized at location A. NDER GRINDER
--- NOTE | ~2024-05-01 | XR_ITS ---
CHEST RADIOGRAPH CLINICAL HISTORY: Cough . COMPARISON: 05/01/2024 TECHNIQUE: Single portable view of the chest. FINDINGS The cardiomediastinal silhouette is enlarged, unchanged. Increased interstitial markings are identified bilaterally, findings suggesting mild pulmonary vascul ar congestion. Low lung volumes leading to pulmonary vascular crowding. The remainder of the lungs are clear. IMPRESSION: Mild pulmonary vascular congestion without focal infiltrate. Reviewed, dictated and finalized at location A. ER CARCASS
--- NOTE | ~2024-05-01 | XR_ITS ---
MODIFIED ESOPHAGRAM HISTORY: Dysphagia. TECHNIQUE: Modified barium esophagram was performed on 05/11/2024. I administered fluoroscopy and perf ormed the exam with speech pathologist. Patient was seated for lateral fluoroscopic imaging for anson stion of thin liquids, pudding, solids and quantified amounts, followed by thin liquids in uncontroll ed amounts. This was recorded on tape. A single fluoroscopic spot image was also recorded. The DAP fo r this procedure was 1.561 Gycm2. The amount of fluoroscopy time used during this procedure was 1.9 m inutes. FINDINGS: Oral stage: Adequate function. Pharyngeal stage: Transient and shallow flash laryngeal penetration which clears without aspiration. Cervical/esophageal stage: Adequate function. IMPRESSION: Transient and shallow, flash laryngeal penetration without aspiration. Please correlate with speech pathologist findings and specific feeding recommendations. Reviewed, dictated and finalized at location A. COPTER DISPATCHER IMPRESSION: Transient and shallow, flash laryngeal penetration without aspirati on. Please correlate with speech pathologist findings and specific feeding rec ommendations.
--- NOTE | ~2024-05-01 | XR_ITS ---
EXAMINATION: XR chest 2V DATE: 05/01/2024 20:43 INDICATION: Chest pain. Back pain. TECHNIQUE: Frontal and lateral views of the chest were obtained. COMPARISON: Chest 2 views 04/23/2024 FINDINGS: There is mild atelectasis at right lung base. No pleural effusion or pneumothorax. Cardiome caro is noted. IMPRESSION: 1. Mild atelectasis at right lung base. 2. Cardiomegaly. Reviewed, dictated and finalized at location A. VISUAL DESIGNER
--- OUTSIDE RECORDS SUMMARY | 2024-05-01 19:34 | XMS_ITS | Continuity of Care Document ---
Author Organization [facility] Address [address] [place] [address] Phone Care Team Providers Care Army Officer Name Role Phone Conversion MD, Doctor Unavailable Unavailabl e Medications Medication Instructions Dosage Effective Dates (start - stop) Status Comments MIACALCIN 200 U/DOSE APPLICS 1 QD - Active PREVACID 30MG CAPSULE DR 1 QHS - A ctive NASONEX 50MCG APPLICS 1 QD - Acti ve METHYLPREDNISOLONE 4MG TABS 0 DIRECTE - Active TUSSI-ORGANIDIN NR 100-10MG/5 10 Q 4HR - No Longer Active FOSAMAX 70MG TABS 1 DIRECTE No Longer Active MIACALCIN 200U NASAL SPRAY 1 QD S - No Longer Active MIACALCIN 200U NASAL SPRAY 1 QD M - No Longer Active PREVACID 30MG CAPSULE DR 1 QHS July - No Longer Active MIACALCIN 200U NASAL SPRAY 1 QD J - No Longer Active PREVACID 30MG CAPS 1 QHS - No Longer Active PRILOSEC 40MG CAPSULE DR 1 QHS July - No Longer Active PRILOSEC 40MG CAPS 1 QHS - No Longer Active MIACALCIN 200U/DOSE APPLICS 1 QD - No Longer Active Advance Directives Directive Yes / No Effective Date File Name No Information Encounters Encounter Description Practice Location Reason(s) For Visit Diagnoses Date Provider Providers Copied on Encounter [facility], [address], [place], [place], [address] , tel: [phone] [facility] No Information 1 Conversion Doctor. [address] [facility], [place], [address], . [facility], [address], [place], [place], [address] , tel: [phone] [facility] PERIPHERAL VERTIGO NOSDIZZINESS AND GIDDINESS 3 Conversion Doctor. [address] [facility], [place], [address], [place]. [facility], [address], [place], [place], [address] , tel: [phone] [facility] DIFFUS CYSTIC MASTOPATHYCHRONIC BRONCHITIS NOS 3 Matt Bonilla. [address] [facility], [address], [place], [place], [address]. tel: [phone] [facility], [address], [place], [place], [address] , tel: [phone] [facility] COUGHMIXED HYPERLIPIDEMIA 3 Matt Bonilla. [address] [facility], [address], [place], [address]. tel: [phone] [facility], [address], [place], [place], [address] , tel: [phone] [facility] CHRONIC SINUSITIS NOS 3 Matt Bonilla. [address] [facility], [address], [place], [address]. tel: [phone] [facility], [address], [place], [place], [address] , [place] tel: [phone] [facility] JOINT PAIN-UNSPEC 2 Matt Bonilla. [address] [facility], [address], [place], [place], [address]. tel:[phone] [facility], [address], [place], [place], [address] , [place] tel: [phone] [facility] MASTODYNIA Apr-2 9-200 2 Matt Bonilla. [address] [facility], [address], [place], [place], [address]. tel: [phone] [facility], [address], [place], [place], [address] , [place] tel: [phone] [facility] OSTEOPOROSIS NOS Mar- 1-200 2 Matt Irene. [address] [facility], [address], [place], [place], [address]. tel: [phone] [facility], [address], [place], [place], [address] , [place] tel: [phone] [facility] ESOPHAGEAL REFLUX Sep- 0-200 1 Matt Bonilla. [address] [facility], [address], [place], [place], [address]. tel: [phone] [facility], [address], [place], [place], [address] , [place] tel: [phone] [facility] MYALGIA AND MYOSITIS NOSSCREEN MAL NEOP-CERVIX Sep- 7-200 1 Matt Bonilla. [address] [facility], [address], [place], [place], [address]. tel: [phone] [facility], [address], [place], [place], [address] , [place] tel: [phone] [facility] NONSPECIF SKIN ERUPT NEC July- 0-200 1 Matt Bonilla. [address] [facility], [address], [place], [place], [address]. tel: [phone] [facility], [address], [place], [place], [address] , [place] tel:[phone] [facility] ABN PAP SMEAR-OTH SITE Jose-2 2-200 0 Matt Bonilla. [address] [facility], [address], [place], [place], [address]. tel:[phone] [facility], [address], [place], [place], [address] , tel: [phone] [facility] BACKACHE NOSMENOPAUSAL DISORDER NOS 0-200 0 Matt Bonilla. [address] [facility], [address], [place], [place], [address]. tel:[phone] [facility], [address], [place], [place], [address] , tel: [phone] [facility] ABNORMAL WEIGHT GAINROUTINE MEDICAL EXAMALLERGY, UNSPECIFIED 3-200 0 Matt Bonilla. [address] [facility], [address], [place], [place], [address]. tel:[phone] Family History Family Member Type Diagnosis Age At Onset No Information Payers Payer name Insurance type Covered republican ID Authoriza tion(s) No Information Social History Type Description Quantity Date Captured Comments Sex Female Smoking Status No Information Chief Complaint And Reason For Visit No Information Reason For Referral Reason For Referral No Information History Of Present Illness Encounter Date Complaint History Of Prese nt Illness No Information Functional Status Date Functional Assessmen t No Information Instructions Date Instruction Additional Infor mation No Information Assessments Type Assessment Date No Information Patient Care Teams Name Effective Dates (start - stop) Status Members No Information
--- OUTSIDE RECORDS SUMMARY | 2024-05-01 19:34 | XMS_ITS | Clinical Summary ---
Author Organization [facility] Address [address] [place] [address]. [place] [address] [place] [address] Care Team Providers Care Security Vehicle Patrol Officer Name Role Phone Unavailable Primary Care Provider Unavailabl e Social History Tobacco Use Types Packs/Day Years Used Date Smoking Tobacco: Never Assessed Comments Unknown Sex and Gender Information Value Date Recorded Sex Assigned at Not on file Legal Sex Female 6:48 PM CDT Gender Identity Not on file Sexual Orientation Not on file Plan of Treatment Health Maintenance Due Date Last Done Comments DTaP, Tdap and Td Vaccines ( 1 - Tdap) 1957 Zoster Vaccines (1 of 2) 1988 Pneumococcal Vaccine: 65+ Ye ars (1 of 1 - PCV) 2003 RSV Immunization or 60+ Years (1 - 1-dose 75+ series) 2013 COVID-19 Vaccine ( - 2023-2 5 season) 2023 Influenza Adult (#1) 2023 Meningococcal B Vaccine Aged Out No l onger eligible based on patient's age to complete this topic Meningococcal Vaccine Aged Out No yamileth goyo eligible based on patient's age to complete this topic RSV Immunizations Under 20 Months Aged Out No longer eligible based on patient's age to complete this topic
--- OUTSIDE RECORDS SUMMARY | 2024-05-01 19:34 | XMS_ITS | Continuity of Care Document ---
Author Organization [facility] [place] [address] [place] [address] [place] [address] Phone Care Team Providers Care Defect Repairer Glassware Name Role Phone [facility] Unavailable Unavail able Deysi Scherer Unavailable Unavailable Advance Directives Directive Yes / No Effective Date File Name No Information Encounters Encounter Description Practice Location Reason(s) For Visit Diagnoses Date Provider Providers Copied on Encounter [facility], [address] [place] [address] [address], [place], [place], [address], [place] tel:[phone] [facility] No Information 200 2 Optical Shop [facility]. [address] [facility], [address], [place], [place], [address] , [place]. tel:[phone] Consulting Provider: Deysi Scherer, [address] [place] [address], [place], [address]. tel:[phone] Family History Family Member Type Diagnosis Age [...]
--- OUTSIDE RECORDS SUMMARY | 2024-05-01 19:34 | XMS_ITS | Clinical Summary ---
Author Organization [facility] Address [address] [place] [address] Phone Care Team Providers Care Supervisor Felting Name Role Phone Milagros Haq MD Primary Care Provider [phone] Allergies Active Allergy Reactions Criticality Noted Date Comments Hydrocodone Nausea and Vomiting Low 07/18/2012 Medications aspirin (WENDY) 81 mg Oral TabIndications: Abnormal mammogram Take by mouth. Activ e omeprazole (PRILOSEC) 20 mg Oral CpDRIndications :Abnormal mammogram Take 20 mg by mouth daily. Active hydrochlorothia zide 25 mg Oral tabletIndicatio ns:Abnormal mammogram Take 25 mg by mouth daily. Active atorvastatin (LIPITOR) 40 mg Oral tabletIndicatio ns:Abnormal mammogram Take 40 mg by mouth Daily LATE. Active MULTIVITAMIN ORALIndications :Abnormal mammogram Take by mouth. Activ e GLUCOSAMINE SULFATE (GLUCOSAMINE ORAL)Indication s:Abnormal mammogram Take by mouth. Activ e ascorbic acid (VITAMIN C) 500 mg Oral tabletIndicatio ns:Abnormal mammogram Take 500 mg by mouth daily. Active OMEGA-3S/DHA/EP A/FISH OIL (OMEGA 3 ORAL)Indication s:Abnormal mammogram Take by mouth. Activ e amitriptyline (ELAVIL) 10 mg Oral tablet 3 Active ranolazine SR 12 hour (RANEXA) 1,000 mg Oral tablet Take 500 mg by mouth 2 times daily . Active LEVOTHYROXINE 25 mcg tablet 5 Active isosorbide mononitrate (IMDUR) 60 mg Extended Release 24 hour tabletIndicatio ns:Hx of cyst of breast Take 120 mg by mouth 2 times daily . 5 Active losartan (COZAAR) 100 mg tabletIndicatio ns:Hx of cyst of breast 5 Active ondansetron (ZOFRAN) 4 mg TabletIndicatio ns:Hx of cyst of breast 6 Active meclizine (ANTIVERT) 25 mg tablet TAKE 1 TABLET BY MOUTH THREE TIMES DAILY NEEDED 0 9 Active neomycin-polymy lilo-dexamethaso ne (MAXITROL) 3.5 mg/g-10,000 unit/g-0.1 % ointment APPLY TO INCISION THREE TIMES DAILY AFTER SURGERY. 1 9 Active nitroglycerin (NITROMIST) 400 mcg/spray Aerosol, [place] place 1 spray by translingual route onto or under the tongue at the first sign of an attack; no more than3 sprays are recommended within a 15 minute period. 6 Active amitriptyline (ELAVIL) 10 mg tablet 10 mg. 6 Active aspirin (ECOTRIN EC) 81 mg Tablet, Delayed Release (E.C.) 81 mg. 6 Active atorvastatin (LIPITOR) 40 mg tablet 40 mg. 6 Active hydroCHLOROthia zide 25 mg tablet 25 mg. 6 Active isosorbide mononitrate (IMDUR) 60 mg Extended Release 24 hour tablet 60 mg. 6 Active Levothyroxine (TIROSINT) 25 mcg Capsule 25 mcg. 6 Active ranolazine (RANEXA) 1,000 mg Extended Release 12 hour tablet 1,000 mg. 6 Active omeprazole (PriLOSEC) 20 mg Capsule, Delayed Release(E.C.) 20 mg. 6 Active Active Problems Patient Care Coordination No te Formatting of this note migh t be different from the original. Primary Care: Milagros Haq MD (General) Referring Provider: Milagros Haq MD [address] [place] [address] Other: Problem Noted Date Diagnosed Date Inversion of nipple 06/27/2018 Mastodynia 05/15/2018 Family history of breast cancer in first degree relative 05/15/2018 Hx of cyst of breast 08/12/2014 Breast cyst 01/09/2013 Arthritis Vertigo Heart disease HTN (hypertension) Thyroid dysfunction Acid reflux Resolved Problems Problem Noted Date Diagnosed Date Resolved Date Abnormal mammogram 07/18/2012 6 Family History Medical History Relation Name Comments Cancer Father Relation Name Status Comments Father Social History Tobacco Use Types Packs/Day Years Used Date Smoking Tobacco: Never Smokeless Tobacco: Never Alcohol Use Standard Drinks/Week Comments No 0 (1 standard drink = 0.6 oz pur e alcohol) Comments No Sex and Gender Information Value Date Recorded Sex Assigned at Not on file Legal Sex Female 11:56 AM CDT Gender Identity Not on file Sexual Orientation Not on file Last Filed Vital Signs Vital Sign Reading Time Taken Comments Blood Pressure 137/78 12/24/2018 11:15 AM CDT Pulse 78 12/24/2018 11:15 AM CDT Temperature 36.6 ??C (97.8 ??F) 12/24/2018 11:15 AM C DT Respiratory Rate - - Oxygen Saturation 93% 12/24/2018 11:15 AM CDT Inhaled Oxygen Concentration - - Weight 81.3 kg (179 lb 4.8 oz) 12/24/2018 11:15 AM CDT Height 162.6 cm (5' 4 ) 12/24/2018 11:15 AM CDT Body Mass Index 30.78 12/24/2018 11:15 AM CDT Plan of Treatment Health Maintenance Due Date Last Done Comments DTAP/TDAP/TD VACCINES (1 - Tdap) 1959 PNEUMOCOCCAL VACCINE 65+ YEARS (1 of 1 - PCV) 03/24/19 88 ZOSTER VACCINE (1 of 2) 1988 OSTEOPOROSIS SCREENING 2003 RSV VACCINE (60+ or ) (1 - 1-dose 75+ series) 2013 INFLUENZA VACCINE (#1) [address] [place] [address] MEDICARE [employer] [facility] [address] [place] [address] Care Teams Supervisor Felting Relationship Specialty Start Date End Date Milagros Haq MD [address] [place] [id number] PCP - General Family Practice 07/18/12
--- NOTE | 2024-05-01 19:37 | ECG_ITS ---
Test Date: 2024-05-01 19:51:42 Measurements Intervals [place] Rate: 86 P: 109 CO: 196 QRS: -66 QRSD: 113 T: 87 QT: 331 QTc: 396 Interpretive Statements SINUS RHYTHM INCOMPLETE LEFT BUNDLE BRANCH BLOCK LEFT ANTERIOR FASCICULAR BLOCK LEFT VENTRICULAR HYPERTROPHY AND ST-T CHANGE CANNOT R/O SEPTAL INFARCT, AGE INDETERMINATE BORDERLINE ST-T WAVE ABNORMALITY- HIGH LATERAL LEADS BASELINE ARTIFACT- I, II, III, AVR, AVL, AVF, V1-V6 ABNORMAL ECG No previous ECG available for comparison Electronically Signed On 05-02-2024 09:57:53 JUNIOR ADMINISTRATIVE ASSISTANT by Blayne Steele D.O.
[2024-05-01 19:40] VITALS: BP 149/77; PULSE 88; RESP 16; TEMP 36.6; O2SAT 100
[2024-05-01 20:03] LABS: Basophils Percent Auto 0.2 % (0.2-1.2); Eosinophils Absolute Auto 0.1 K/mm3 (0-0.3); Eosinophils Percent Auto 0.6 % (0-4.4); Hematocrit 39.9 % (37.0-47.0); Immature Granulocyte Absolute 0.02 K/mm3 (0.00-0.031); Immature Granulocyte Percent A 0.2 % (0-0.5); Lymphocytes Absolute Auto 1.59 K/mm3 (0.9-3.2); Lymphocytes Percent Auto 18.3 % (18.3-44.2); Mean Corpuscular HGB Conc 32.6 g/dl (32-36); Mean Corpuscular Hemoglobin 30.6 pg (26-34); Mean Corpuscular Volume 93.9 fl (80-100); Mean Platelet Volume 10.6 fl (7.4-10.4); Monocytes Absolute Auto 0.5 K/mm3 (0.1-0.6); Monocytes Percent Auto 5.4 % (2.6-8.5); Neutrophils Absolute Auto 6.6 K/mm3 (1.3-6.7); Neutrophils Percent Auto 75.3 % (45.5-73.1); Platelet Count Result 172 k/mm3 (150-375); Red Blood Count 4.25 M/mm3 (4.2-5.4); Red Cell Distribution Width 13.2 % (11.5-14.5); White Blood Count 8.7 K/mm3 (4.5-10.0)
[2024-05-01 20:16] LABS: Alanine Aminotransferase 17 U/L (6-35); Alkaline Phosphatase 94 U/L (38-126); Anion Gap 10 mmol/L (4-12); Aspartate Amino Transferase 23 U/L (14-36); Bilirubin,Total 0.8 mg/dL (0.2-1.3); Blood Urea Nitrogen 21 mg/dL (7-17); Calcium 9.8 mg/dL (8.4-10.2); Carbon Dioxide 29 mmol/L (22-30); Chloride 97 mmol/L (98-107); Estimated CRCL calculation 41 ml/min; Estimated Glomerular Filt Rate > 60; Glucose 123 mg/dL (65-110); Lipase 55 U/L (23-300); Prothrombin Time 13.2 Seconds (11.1-14.7); Sodium 136 mmol/L (137-145)
[2024-05-01 20:17] LABS: Partial Thromboplastin Time 44.2 Seconds (22.3-36.8)
[2024-05-01 20:27] LABS: Troponin I < 0.012 ng/mL (0.000-0.034)
--- NOTE | 2024-05-01 23:13 | ECG_ITS ---
Test Date: 2024-05-01 23:22:55 Measurements Intervals [place]ais Rate: 91 P: 60 NE: 211 QRS: -67 QRSD: 114 T: 93 QT: 376 QTc: 463 Interpretive Statements SINUS RHYTHM BORDERLINE AV CONDUCTION DELAY INCOMPLETE LEFT BUNDLE BRANCH BLOCK LEFT ANTERIOR FASCICULAR BLOCK LEFT VENTRICULAR HYPERTROPHY AND ST-T CHANGE CANNOT R/O SEPTAL INFARCT, AGE INDETERMINATE BORDERLINE ST-T WAVE ABNORMALITY- HIGH LATERAL LEADS BASELINE ARTIFACT- I, II, III, AVR, AVL, AVF, V1-V6 ABNORMAL ECG Compared to ECG 05/01/2024 19:51:42 ST (T wave) deviation still present Electronically Signed On 05-02-2024 10:02:25 ACCESS CONTROL SPECIALIST by Blayne Steele D.O.
[2024-05-01 23:52] LABS: Troponin I < 0.012 ng/mL (0.000-0.034)
[2024-05-02] VITALS (8 sets, daily range): BP systolic 100–160; BP diastolic 50–80; PULSE 101–112; RESP 16–18; TEMP 36.2–37.6; O2SAT 91–100; BMI 30.9
[2024-05-02] MEDS: ONDANSETRON INJ 4 MG/2 ML VIAL IV PUSH (00:34)
[2024-05-02] MEDS: MORPHINE SULFATE (*CRX) 4 MG/ML INJ 2 MG IV PUSH (00:34)
--- OUTSIDE RECORDS SUMMARY | 2024-05-02 00:39 | XMS_ITS | Continuity of Care Document ---
Author Organization [facility] Address [address] [place] [address] [place] [address] Phone Care Team Providers Care Ore Charger Name Role Phone [facility] [employer] Unavailable Unavail able Deysi Scherer Unavailable Unavailable Advance Directives Directive Yes / No Effective Date File Name No Information Encounters Encounter Description Practice Location Reason(s) For Visit Diagnoses Date Provider Providers Copied on Encounter [facility], [address] [place] [address] [address], [place], [place], [id number], [place] tel:[phone] SEC [facility] No Information 200 2 [facility] [address] [facility], [address], [place], [place], [address] , [place]. tel:[phone] Consulting Provider: Deysi Scherer, [address] [place] [address], [place], [address]. tel:[phone] Family History Family Member Type Diagnosis Age At Onset No Information Payers Payer name Insurance type Covered green party ID Authoriza tion(s) No Information Social History [...]
--- OUTSIDE RECORDS SUMMARY | 2024-05-02 00:39 | XMS_ITS | Clinical Summary ---
Author Organization [facility] Address [address] [place] [address] Phone Care Team Providers Care Budget Counselor Name Role Phone Milagros Haq MD Primary Care Provider [phone] Allergies Active Allergy Reactions Criticality Noted Date [...] 9 Active nitroglycerin (NITROMIST) 400 mcg/spray Aerosol, [place] place 1 spray by translingual route onto [...] MD (General) Referring Provider: Milagros Haq MD [address] [place] [address] Other: Problem Noted Date Diagnosed Date Inversion [...] INFLUENZA VACCINE (#1) [address] [place] [address] MEDICARE [employer] [facility] [id number] [place] [address] Care Teams Budget Counselor Relationship Specialty Start Date End Date Milagros Haq MD [address] [place] [id number] PCP - General Family Practice 07/18/12
--- OUTSIDE RECORDS SUMMARY | 2024-05-02 00:39 | XMS_ITS | Clinical Summary ---
Author Organization [facility] Address [address] [place] [address]. 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
--- OUTSIDE RECORDS SUMMARY | 2024-05-02 00:40 | XMS_ITS | Continuity of Care Document ---
Author Organization [employer] [facility] Address [address] [place] [address] Phone Care Team Providers Care Surgical Lead Name Role Phone Conversion MD, Doctor Unavailable Unavailabl e Medications Medication Instructions Dosage Effective Dates (start - stop) Status Comments MIACALCIN 200 U/DOSE APPLICS 1 QD - Active METHYLPREDNISOLONE 4MG TABS 0 DIRECTE - Active NASONEX 50MCG APPLICS 1 QD - Acti ve PREVACID 30MG CAPSULE DR 1 QHS - A ctive TUSSI-ORGANIDIN NR 100-10MG/5 10 Q 4HR - [...] Diagnoses Date Provider Providers Copied on Encounter [facility], [address], [place], [place], [address] , tel: [phone] [facility] No Information 1 Conversion Doctor. [address] [facility], [place], [address], . [employer], [address], [place], [place], [address] , tel: [phone] [facility] PERIPHERAL VERTIGO NOSDIZZINESS AND GIDDINESS 3 Conversion Doctor. [address] [facility], [place], [address], [place]. [employer] [facility], [address], [place], [place], [address] , tel: [phone] [facility] DIFFUS CYSTIC MASTOPATHYCHRONIC BRONCHITIS NOS 3 Matt Bonilla. [address] [facility], [address], [place], [place], [address]. tel: [phone] [employer] [facility], [address], [place], [place], [address] , tel: [phone] [facility] COUGHMIXED HYPERLIPIDEMIA 3 Matt Bonilla. [address] [facility], [address], [place], [address]. tel: [phone] [employer] [facility], [address], [place], [place], [address] , tel: [phone] [facility] CHRONIC SINUSITIS NOS 3 Matt Bonilla. [address] [facility], [address], [place], [address]. tel: [phone] [employer], [address], [place], [place], [address] , [place] tel: [phone] [facility] JOINT PAIN-UNSPEC 2 Matt Bonilla. [address] [facility], [address], [place], [place], [address]. tel:[phone] [employer], [address], [place], [place], [address] , [place] tel: [phone] [facility] MASTODYNIA Apr-2 9-200 2 Matt Bonilla. [address] [facility], [address], [place], [place], [address]. tel: [phone] [facility], [address], [place], [place], [address] , [place] tel: [phone] [facility] OSTEOPOROSIS NOS Mar- 1-200 2 Matt Irene. [address] [facility], [address], [place], [place], [address]. tel: [phone] [employer], [address], [place], [place], [address] , [place] tel: [phone] [facility] ESOPHAGEAL REFLUX Sep- 0-200 1 Matt Bonilla. [address] [facility], [address], [place], [place], [address]. tel: [phone] [employer] [facility], [address], [place], [place], [address] , [place] tel: [phone] [facility] MYALGIA AND MYOSITIS NOSSCREEN MAL NEOP-CERVIX Sep- 7-200 1 Matt Bonilla. [address] [facility], [address], [place], [place], [address]. tel: [phone] [employer], [address], [place], [place], [address] , [place] tel: [phone] [facility] NONSPECIF SKIN ERUPT NEC July- 0-200 1 Matt Bonilla. [address] [facility], [address], [place], [place], [address]. tel: [phone] [employer], [address], [place], [place], [address] , [place] tel:[phone] [facility] ABN PAP SMEAR-OTH SITE Jose-2 2-200 0 Matt Bonilla. [address] [facility], [address], [place], [place], [address]. tel:[phone] [employer], [address], [place], [place], [address] , tel: [phone] [facility] BACKACHE NOSMENOPAUSAL DISORDER NOS 0-200 0 Matt Bonilla. [address] [facility], [address], [place], [place], [address]. tel:[phone] [employer], [address], [place], [place], [address] , tel: [phone] [facility] ABNORMAL WEIGHT GAINROUTINE MEDICAL EXAMALLERGY, UNSPECIFIED 3-200 0 Matt Bonilla. [address] [facility], [address], [place], [place], [address]. tel:[phone] Family History Family Member Type Diagnosis Age At Onset No Information Payers Payer name Insurance type Covered alliance party ID Authoriza tion(s) No Information Social [...]
[2024-05-02] MEDS: fentaNYL CITRATE INJ (*CRX) 100 MCG/2 ML VIAL 25 MCG IV PUSH (02:02)
--- NOTE | 2024-05-02 03:17 | ED_ITS ---
HPI - General Adult General Chief complaint: Back Pain/Injury Stated complaint: back pain Time Seen by Provider: 05/01/24 23:57 History of Present Illness HPI narrative: Patient is an 84-year-old female who presents ER with abdominal pain. Sudden onset this afternoon. Moves in the back and up into the chest. Tried taking nitroglycerin so has discomfort. She has been vomiting. No fevers or chills or sweats. Unsure of what provoked her discomfort she has not had this pain before. Related Data Home Medications ?Medication ?Instructions ?Recorded ?Confirmed ?Last Taken ?Type ranolazine 500 mg tablet,extended 1,000 mg PO Q12H 05/02/20 05/02/24 05/14/23 History release,12 hr (Ranexa) nitroglycerin 0.4 mg sublingual 0.4 mg sublingual Q5M PRN chest 05/02/24 05/02/24 Unknown History tablet pain Allergies Allergy/AdvReac Type Severity Reaction Status Date / Time alendronate sodium Allergy Unknown Pt does Verified 05/02/24 05:23 remember levofloxacin Allergy Unknown Pt does Verified 05/02/24 05:23 not remember hydrocodone AdvReac Mild IF SHE Verified 05/02/24 05:23 TAKES 250 MG SHE IS OKAY, 500 MG SHE HAS NAUSEA AND V Review of Systems 2 Review of Systems: All systems reviewed & are unremarkable except as noted in HPI and below Constitutional: Constitutional: Reports no additional constitutional complaints Cardiovascular: Cardiovascular: Reports no additional cardiovascular complaints Respiratory: Respiratory: Reports no additional respiratory complaints Gastrointestinal: Gastrointestinal: Reports no additional gastrointestinal complaints Musculoskeletal: Musculoskeletal: Reports no additional musculoskeletal complaints [facility] Past Medical History Medical History Diarrhea Coronary artery disease Prior cardiac catheterization showed mild plaque in the LAD and 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 Patient of Dr. Bereket Olson. Arthritis Prediabetes Essential hypertension Gastroesophageal reflux disease Hypothyroidism Mixed hyperlipidemia Seasonal allergic rhinitis Vitamin B12 deficiency Vitamin D deficiency Surgical History Surgical History History of cardiac catheterization Results as above. History of colonoscopy with polypectomy History of appendectomy History of cataract extraction History of hysterectomy Family History Family History Father Lung cancer Sibling Breast cancer Social History Social History Social History: Surrogate medical decision maker: Jodi Lewis, daughter. Code status: Full code. Smoking status: Never smoker Second hand tobacco smoke exposure: No Alcohol intake: never Substance use: never Substance use type: does not use Do You Feel Safe in your Home?: Yes Lack of Transportation: No Lack of Food: Never True Current Housing: I Have Housing Concerned About Future Housing: No Difficulty Paying Gas/Electric Bills: No Difficulty Paying for Meds: No Currently Unemployed: No Education: High School Diploma/GED Difficulty w/ Childcare or Family Care: No Living arrangements: with family Additional living arrangements comments: The patient lives in [place] with her daughter Jodi. 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 Spiritual care concerns: No Agree to blood products: Yes Course Course Emergency Course: Admit to the hospitalist service. General surgery consulted. NPO. IV Zosyn. Morphine for pain. Vital Signs Vital signs: Vital Signs Temperature 97.8 F 05/01/24 19:40 Pulse Rate 88 05/01/24 19:40 Respiratory Rate 16 05/01/24 19:40 Blood Pressure 149/77 H 05/01/24 19:40 Pulse Oximetry 100 05/01/24 19:40 Temperature 97.2 F L 05/02/24 05:29 Pulse Rate 108 H 05/02/24 05:29 Respiratory Rate 18 05/02/24 05:29 Blood Pressure 143/70 H 05/02/24 05:29 Pulse Oximetry 96 05/02/24 05:29 Medical Decision Making Vital Signs Vital Signs: Vital Signs Temperature 97.8 F 05/01/24 19:40 Pulse Rate 88 05/01/24 19:40 Respiratory Rate 16 05/01/24 19:40 Blood Pressure 149/77 H 05/01/24 19:40 Pulse Oximetry 100 05/01/24 19:40 Temperature 97.2 F L 05/02/24 05:29 Pulse Rate 108 H 05/02/24 05:29 Respiratory Rate 18 05/02/24 05:29 Blood Pressure 143/70 H 05/02/24 05:29 Pulse Oximetry 96 05/02/24 05:29 Lab Data 05/01/24 19:46 05/01/24 19:46 Labs: Lab Results 05/01/24 05/01/24 Range/Units 19:46 23:19 WBC 8.7 (4.5-10.0) K/mm3 RBC 4.25 (4.2-5.4) M/mm3 Hgb 13.0 (12.0-15.0) g/dL Hct 39.9 (37.0-47.0) % MCV 93.9 (80-100) fl MCH 30.6 (26-34) pg MCHC 32.6 (32-36) g/dl RDW 13.2 (11.5-14.5) % Plt Count 172 (150-375) k/mm3 MPV 10.6 H (7.4-10.4) fl Immature Gran % (Auto) 0.2 (0-0.5) % Neut % (Auto) 75.3 H (45.5-73.1) % Lymph % (Auto) 18.3 (18.3-44.2) % [place] % (Auto) 5.4 (2.6-8.5) % Eos % (Auto) 0.6 (0-4.4) % Baso % (Auto) 0.2 (0.2-1.2) % Lymph # (Auto) 1.59 (0.9-3.2) K/mm3 [place] # (Auto) 0.5 (0.1-0.6) K/mm3 Eos # (Auto) 0.1 (0-0.3) K/mm3 Baso # (Auto) 0.0 (0.0-0.1) K/mm3 Abs Immat Gran (auto) 0.02 (0.00-0.031) K/mm3 Absolute Neuts (auto) 6.6 (1.3-6.7) K/mm3 Absolute Nucleated RBC 0.000 (0.0-0.012) K/mm3 Nucleated RBC % 0.0 (0.0-0.2) % PT 13.2 (11.1-14.7) Seconds INR 1.0 APTT 44.2 H (22.3-36.8) Seconds Sodium 136 L (137-145) mmol/L Potassium 4.0 (3.4-5.0) mmol/L Chloride 97 L (98-107) mmol/L Carbon Dioxide 29 (22-30) mmol/L Anion Gap 10 (4-12) mmol/L BUN 21 H (7-17) mg/dL Creatinine 0.84 (0.7-1.0) mg/dL Estim Creat Clear Calc 41 ml/min Estimated GFR > 60 (59 - ) Glucose 123 H (65-110) mg/dL Calcium 9.8 (8.4-10.2) mg/dL Total Bilirubin 0.8 (0.2-1.3) mg/dL AST 23 (14-36) U/L ALT 17 (6-35) U/L Alkaline Phosphatase 94 (38-126) U/L Troponin I < 0.012 < 0.012 (0.000-0.034) ng/mL Total Protein 7.0 (6.3-8.2) g/dL Albumin 4.0 (3.5-5.1) g/dL Lipase 55 (23-300) U/L Imaging Data Radiologist's impression: ITS Impressions Chest X-Ray 05/01/24 20:44 IMPRESSION: 1. Mild atelectasis at right lung base. 2. Cardiomegaly. Discharge Plan Discharge Clinical Impression: Acute cholecystitis Patient Disposition: Still a Patient Condition: Stable
[2024-05-02] MEDS: MORPHINE SULFATE (*CRX) 2 MG/ML INJ IV PUSH ×3 (04:06→18:12)
[2024-05-02] MEDS: PIPERACILLN/TAZ 3.375GM/NS50ML 3.375 GM/50 ML BAG IVPB ×4 (04:18→23:14)
[2024-05-02] MEDS: SODIUM CHLORIDE 0.9% IV 1,000 ML 125 ML IV CONT ×2 (05:10→13:37)
--- NOTE | 2024-05-02 05:31 | ADMGEN ---
This patient, Maude Milton, was admitted to [facility] Surg Room 330-02. Patient/family oriented to hospital policies and general routines including ID bracelet, bed and alarms, visiting hours, pain management, procedures, bathroom and other care routines, personal items, smoking policy, room service/diet, and visiting hours. Information on how to activate the Rapid Response Team has been discussed. Patient/Family are encouraged to report perceived risks to care and to ask questions if they do not understand what they are told or what they should do.
--- NOTE | 2024-05-02 07:59 | P.HP_ITS ---
H&P: HPI History of Present Illness Date/Time: 05/02/24 07:59 Chief Complaint: Abdominal pain Narrative: 84yo female with CAD, HTN and pre-DM here for abdominal pain. Patient is awake and alert but somewhat confused so most of the hx is from family at bedside. Patient is normally oriented but does have confusion when given narcotics. Patient while at home developed acute onset of abd and back pain with associated nausea and vomiting. This occurred about 4hrs after eating a non-fatty meal. No hx of GB symptoms. No abd symptoms prior to this. She also had chest pain and took NTG without benefit. She also took omeprazole as well. He was diagnosed with COVID about 1 month ago and treated with abx, steroids and cough medication. She has been feeling better over the past 2 weeks. She does have chronic, intermittent chest pain requiring rare use of NTG. She did use NTG 1 week ago. She denies fever, chills, vision changes, hearing changes, odynophagia, dysphagia, shortness of breath, cough, dysuria or hematuria. She began to have nausea and vomiting but no hematemesis. No diarrhea. Her symptoms worsened and she present to the emergency room for evaluation. In the ED, she was hemodynamically stable. She was afebrile and mildly tachycardic to 112. CBC was normal. CMP was unremarkable. Lipase normal. Troponin negative x2. CXR showing mild right lung base atelectasis and CMG. EKG showing normal sinus, incomplete Rt BBB, LAFB, LVH with strain and possible old anteroseptal CA. Repeat EKG is similar. CT Abd/pelvis showing mild atelectasis with mild bronchiectasis, and distended GB with gallstones, wall thickening and surrounding fat stranding. Patient given anti-emetica, analgesics and started on Zosyn. General surgery consulted. She was admitted for further care. 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 Patient of Dr. Bereket Olson. Arthritis Prediabetes Essential hypertension Gastroesophageal reflux disease Hypothyroidism Mixed hyperlipidemia Seasonal allergic rhinitis Vitamin B12 deficiency Vitamin D deficiency Surgical History Surgical History History of cardiac catheterization Results as above. History of colonoscopy with polypectomy History of appendectomy History of cataract extraction History of hysterectomy Family History Family History Father Lung cancer Sibling Breast cancer Social History Social History Social History: Surrogate medical decision maker: Jodi Lewis, daughter. Code status: Full code. Smoking status: Never smoker Second hand tobacco smoke exposure: No Alcohol intake: never Substance use: never Substance use type: does not use Do You Feel Safe in your Home?: Yes Lack of Transportation: No Lack of Food: Never True Current Housing: I Have Housing Concerned About Future Housing: No Difficulty Paying Gas/Electric Bills: No Difficulty Paying for Meds: No Currently Unemployed: No Education: High School Diploma/GED Difficulty w/ Childcare or Family Care: No Living arrangements: with family Additional living arrangements comments: The patient lives in [place] with her daughter Jodi. 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 Spiritual care concerns: No Agree to blood products: Yes Meds Home Medications and Allergies Home Medications ?Medication ?Instructions ?Recorded ?Confirmed ?Type ranolazine 500 mg tablet,extended 1,000 mg PO Q12H 05/02/20 05/02/24 History release,12 hr (Ranexa) cyanocobalamin (vitamin B-12) 2,500 mcg PO QAM #90 tabs 01/10/23 05/02/24 Rx 2,500 mcg tablet levothyroxine 25 mcg tablet 25 mcg PO DAILY #90 tabs 03/20/23 05/02/24 Rx losartan 100 mg tablet See Rx Instructions .Route 04/22/23 05/02/24 Rx .COMPLEX #90 tabs atorvastatin 40 mg tablet 40 mg PO DAILY #90 tabs 07/09/23 05/02/24 Rx omeprazole 20 mg capsule,delayed 40 mg (2 x 20 mg) PO DAILY #180 08/28/23 05/02/24 Rx release caps ondansetron HCl 4 mg tablet See Rx Instructions .Route 12/03/23 05/02/24 Rx .COMPLEX #40 ea amitriptyline 10 mg tablet 30 mg (3 x 10 mg) PO .HS #270 tabs 12/28/23 05/02/24 Rx hydrochlorothiazide 25 mg tablet 25 mg PO DAILY #90 tabs 02/20/24 05/02/24 Rx duoderm dressing #1 ea 04/27/24 05/02/24 Rx egg crate mattress for chair #1 ea 04/27/24 05/02/24 Rx nitroglycerin 0.4 mg sublingual 0.4 mg sublingual Q5M PRN chest 05/02/24 05/02/24 History tablet pain Allergies Allergy/AdvReac Type Severity Reaction Status Date / Time alendronate sodium Allergy Unknown Pt does Verified 05/02/24 05:23 remember levofloxacin Allergy Unknown Pt does Verified 05/02/24 05:23 not remember hydrocodone AdvReac Mild IF SHE Verified 05/02/24 05:23 TAKES 250 MG SHE IS OKAY, 500 MG SHE HAS NAUSEA AND V Vital Signs Vital Signs - 24 hr 05/01/24 19:40 05/02/24 00:36 05/02/24 02:04 Temperature 97.8 F Pulse Rate 88 102 H 112 H Respiratory Rate 16 16 16 Blood Pressure 149/77 H 160/80 H 142/68 H Pulse Oximetry 100 100 100 Oxygen Delivery Oxygen Flow Rate 05/02/24 04:19 05/02/24 05:29 05/02/24 06:54 Temperature 97.2 F L Pulse Rate 111 H 108 H Respiratory Rate 18 18 Blood Pressure 150/74 H 143/70 H Pulse Oximetry 99 96 98 Oxygen Delivery Nasal Cannula Oxygen Flow Rate 2 Exam Narrative: AF 97.2 143/70 108 18 98% 2L Gen - well appearing female in no acute respiratory distress who is nontoxic- appearing lying semi recumbent in bed HEENT - normocephalic. Atraumatic. Pupils equal round and reactive. Extraocular motions intact. Sclera clear and anicteric. Nares patent. Oropharynx was clear. No oral lesions. Tachy mucous membranes. Tongue was midline. Palate duke symmetrically. No facial asymmetry. Neck - neck was supple. No dominant adenopathy, thyromegaly or masses. 2+ carotid upstrokes without bruits. Chest - Bibasilar crackles. Breast exam was deferred. CV - heart was regular rate and rhythm. S1-S2. No murmurs gallops or rubs. Abd - abdomen was soft. Nontender. Protuberant and mildly tympanitic. Positive bowel sounds. No organomegaly or masses. Ext - trace bilateral pedal edema. 2+ DP pulses bilaterally. Neuro - patient is alert and oriented x3 (not easton name). Strength is 5/5 in both upper and lower extremities. Cranial nerves 2-12 are intact. Speech is clear. Psych - normal mood and affect. Patient is pleasant and cooperative. Skin - warm and dry. No rashes noted. H&P: Results Labs Labs: Short CBC 05/01/24 Range/Units 19:46 WBC 8.7 (4.5-10.0) K/mm3 Hgb 13.0 (12.0-15.0) g/dL Hct 39.9 (37.0-47.0) % Plt Count 172 (150-375) k/mm3 BMP 05/01/24 19:46 Sodium 136 L Potassium 4.0 Chloride 97 L Carbon Dioxide 29 BUN 21 H Creatinine 0.84 Glucose 123 H Calcium 9.8 Cardiac Enzymes 05/01/24 05/01/24 Range/Units 19:46 23:19 Troponin I < 0.012 < 0.012 (0.000-0.034) ng/mL Liver Function 05/01/24 Range/Units 19:46 Total Bilirubin 0.8 (0.2-1.3) mg/dL AST 23 (14-36) U/L ALT 17 (6-35) U/L Alkaline Phosphatase 94 (38-126) U/L Albumin 4.0 (3.5-5.1) g/dL Assessment and Plan Assessment and plan (1) Acute cholecystitis: Code(s): K81.0 - Acute cholecystitis Status: Acute Assessment and Plan: Patient presents with abdominal pain. CT scan showing distended GB with gallstones, wall thickening and surrounding fat stranding consistent with acute cholecystitis. Patient started on Zosyn. Start on clear liquid diet. She is on IV fluids. General surgery consulted. Appreciate their input. Patient high risk plans currently to treat conservatively. Gallbladder ultrasound ordered. Continue supportive care with current analgesics. Wean off IV fluids. (2) Essential hypertension: Code(s): I10 - Essential (primary) hypertension Status: Acute Assessment and Plan: Patient's blood pressure was reviewed on 05/02 Blood pressure elevated. Will review home medications and start appropriate medications. (3) Coronary artery disease: Code(s): I25.10 - Atherosclerotic heart disease of [place] coronary artery without angina pectoris Status: Acute Assessment and Plan: Patient with coronary disease. Resume Lipitor. She does not appear to be on metoprolol over aspirin. Hold Renexa. (4) Prediabetes: Code(s): R73.03 - Prediabetes Status: Acute Assessment and Plan: Start sliding scale. Check A1c. Plan DVT prophylaxis - SCDs Code status - full
--- NOTE | 2024-05-02 11:21 | P.CONGS_ITS ---
Assessment and Plan Assessment and plan (1) Acute cholecystitis: Code(s): K81.0 - Acute cholecystitis Status: Acute Assessment and Plan: Exam largely benign this morning, will start clears and advance to low-fat diet as tolerated, continue IV antibiotics, will get formal right upper quadrant ultrasound (2) Coronary artery disease: Code(s): I25.10 - Atherosclerotic heart disease of [place] coronary artery without angina pectoris Status: Acute Assessment and Plan: patient with multiple comorbid conditions including coronary artery disease, will try conservative management of acute cholecystitis for now given increased surgical risk History of Present Illness Consult details Consult date: 05/02/24 Reason for consult: abdominal pain Requesting physician: Ta Genao MD Narrative: The patient is an 84-year-old female presenting to the emergency department complaining of severe upper abdominal pain associated with bloating, nausea, vomiting. The patient reports the episode started acutely yesterday and progressed until her visit to hospital. Patient denies previous episodes. Workup in the emergency department, including imaging, is significant for acute cholecystitis. 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 Patient of Dr. Bereket Olson. Arthritis Prediabetes Essential hypertension Gastroesophageal reflux disease Hypothyroidism Mixed hyperlipidemia Seasonal allergic rhinitis Vitamin B12 deficiency Vitamin D deficiency Surgical History Surgical History History of cardiac catheterization Results as above. History of colonoscopy with polypectomy History of appendectomy History of cataract extraction History of hysterectomy Family History Family History Father Lung cancer Sibling Breast cancer Social History Social History Social History: Surrogate medical decision maker: Jodi Lewis, daughter. Code status: Full code. Smoking status: Never smoker Second hand tobacco smoke exposure: No Alcohol intake: never Substance use: never Substance use type: does not use Do You Feel Safe in your Home?: Yes Lack of Transportation: No Lack of Food: Never True Current Housing: I Have Housing Concerned About Future Housing: No Difficulty Paying Gas/Electric Bills: No Difficulty Paying for Meds: No Currently Unemployed: No Education: High School Diploma/GED Difficulty w/ Childcare or Family Care: No Living arrangements: with family Additional living arrangements comments: The patient lives in [place] with her daughter Jodi. 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 Spiritual care concerns: No Agree to blood products: Yes Meds Home Medications and Allergies Home Medications ?Medication ?Instructions ?Recorded ?Confirmed ?Type ranolazine 500 mg tablet,extended 1,000 mg PO Q12H 05/02/20 05/02/24 History release,12 hr (Ranexa) cyanocobalamin (vitamin B-12) 2,500 mcg PO QAM #90 tabs 01/10/23 05/02/24 Rx 2,500 mcg tablet levothyroxine 25 mcg tablet 25 mcg PO DAILY #90 tabs 03/20/23 05/02/24 Rx losartan 100 mg tablet See Rx Instructions .Route 04/22/23 05/02/24 Rx .COMPLEX #90 tabs atorvastatin 40 mg tablet 40 mg PO DAILY #90 tabs 07/09/23 05/02/24 Rx omeprazole 20 mg capsule,delayed 40 mg (2 x 20 mg) PO DAILY #180 08/28/23 05/02/24 Rx release caps ondansetron HCl 4 mg tablet See Rx Instructions .Route 12/03/23 05/02/24 Rx .COMPLEX #40 ea amitriptyline 10 mg tablet 30 mg (3 x 10 mg) PO .HS #270 tabs 12/28/23 05/02/24 Rx hydrochlorothiazide 25 mg tablet 25 mg PO DAILY #90 tabs 02/20/24 05/02/24 Rx duoderm dressing #1 ea 04/27/24 05/02/24 Rx egg crate mattress for chair #1 ea 04/27/24 05/02/24 Rx nitroglycerin 0.4 mg sublingual 0.4 mg sublingual Q5M PRN chest 05/02/24 05/02/24 History tablet pain Allergies Allergy/AdvReac Type Severity Reaction Status Date / Time alendronate sodium Allergy Unknown Pt does Verified 05/02/24 05:23 remember levofloxacin Allergy Unknown Pt does Verified 05/02/24 05:23 not remember hydrocodone AdvReac Mild IF SHE Verified 05/02/24 05:23 TAKES 250 MG SHE IS OKAY, 500 MG SHE HAS NAUSEA AND V Vital Signs Vital Signs - 24 hr 05/01/24 19:40 05/02/24 00:36 05/02/24 02:04 Temperature 36.6 C Pulse Rate 88 102 H 112 H Respiratory Rate 16 16 16 Blood Pressure 149/77 H 160/80 H 142/68 H Pulse Oximetry 100 100 100 Oxygen Delivery Oxygen Flow Rate 05/02/24 04:19 05/02/24 05:29 05/02/24 06:54 Temperature 36.2 C L Pulse Rate 111 H 108 H Respiratory Rate 18 18 Blood Pressure 150/74 H 143/70 H Pulse Oximetry 99 96 98 Oxygen Delivery Nasal Cannula Oxygen Flow Rate 2 Exam 2 Const: General: cooperative, comfortable and no acute distress HENMT: Head: normal to inspection, normocephalic and atraumatic Eyes: General: appearance normal, both eyes and all related structures Neck: Neck: normal visual inspection, full ROM and no lymphadenopathy Resp: Auscultation: diminished lung sounds Cardio: Rate: regular rate Rhythm: regular rhythm GI: Inspection: normal to inspection and non-distended GI Palp: Yes abdominal tenderness, Yes Soft to palpation, No Guarding due to palpation present (GI) and No Rigid due to palpation Skin: General skin exam: normal color and no rashes or lesions noted Neuro: General: patient oriented x3 and CN's II-XI intact bilaterally Extrem: General: normal to inspection and full ROM Results Labs 05/01/24 19:46 05/01/24 19:46 Labs: Abnormal lab results 05/01/24 Range/Units 19:46 MPV 10.6 H (7.4-10.4) fl Neut % (Auto) 75.3 H (45.5-73.1) % APTT 44.2 H (22.3-36.8) Seconds Sodium 136 L (137-145) mmol/L Chloride 97 L (98-107) mmol/L BUN 21 H (7-17) mg/dL Glucose 123 H (65-110) mg/dL Diabetes panel 05/01/24 Range/Units 19:46 Sodium 136 L (137-145) mmol/L Potassium 4.0 (3.4-5.0) mmol/L Chloride 97 L (98-107) mmol/L Carbon Dioxide 29 (22-30) mmol/L BUN 21 H (7-17) mg/dL Creatinine 0.84 (0.7-1.0) mg/dL Glucose 123 H (65-110) mg/dL Calcium 9.8 (8.4-10.2) mg/dL AST 23 (14-36) U/L ALT 17 (6-35) U/L Alkaline Phosphatase 94 (38-126) U/L Total Protein 7.0 (6.3-8.2) g/dL Albumin 4.0 (3.5-5.1) g/dL Calcium panel 05/01/24 Range/Units 19:46 Calcium 9.8 (8.4-10.2) mg/dL Albumin 4.0 (3.5-5.1) g/dL Pituitary panel 05/01/24 Range/Units 19:46 Sodium 136 L (137-145) mmol/L Potassium 4.0 (3.4-5.0) mmol/L Chloride 97 L (98-107) mmol/L Carbon Dioxide 29 (22-30) mmol/L BUN 21 H (7-17) mg/dL Creatinine 0.84 (0.7-1.0) mg/dL Glucose 123 H (65-110) mg/dL Calcium 9.8 (8.4-10.2) mg/dL Adrenal panel 05/01/24 Range/Units 19:46 Sodium 136 L (137-145) mmol/L Potassium 4.0 (3.4-5.0) mmol/L Chloride 97 L (98-107) mmol/L Carbon Dioxide 29 (22-30) mmol/L BUN 21 H (7-17) mg/dL Creatinine 0.84 (0.7-1.0) mg/dL Glucose 123 H (65-110) mg/dL Calcium 9.8 (8.4-10.2) mg/dL Total Bilirubin 0.8 (0.2-1.3) mg/dL AST 23 (14-36) U/L ALT 17 (6-35) U/L Alkaline Phosphatase 94 (38-126) U/L Total Protein 7.0 (6.3-8.2) g/dL Albumin 4.0 (3.5-5.1) g/dL All other labs normal. Imaging Abdomen CT scan report/results: report reviewed and image reviewed
[2024-05-02 16:55] LABS: Glucose Point of Care 116 mg/dl (65-105)
--- NOTE | 2024-05-02 18:52 | PC.NURSE ---
On 05/02/24, the CALENDER LET OFF OPERATOR, Stefania provided care and completed [employer] documentation on this patient. I have reviewed the CALENDER LET OFF OPERATOR's documentation and agree with the findings.
[2024-05-02] MEDS: AMITRIPTYLINE HCL 10 MG TABLET 30 MG PO (20:33)
[2024-05-03] MEDS: MORPHINE SULFATE (*CRX) 2 MG/ML INJ IV PUSH (04:29)
[2024-05-03 04:55] VITALS: BP 137/65; PULSE 112; RESP 20; TEMP 37.2; O2SAT 94
[2024-05-03] MEDS: PIPERACILLN/TAZ 3.375GM/NS50ML 3.375 GM/50 ML BAG IVPB ×4 (05:30→23:17)
[2024-05-03] MEDS: LEVOTHYROXINE SODIUM 25 MCG TABLET PO (05:30)
[2024-05-03 07:14] LABS: Basophils Percent Auto 0.1 % (0.2-1.2); Hematocrit 35.7 % (37.0-47.0); Hemoglobin 11.4 g/dL (12.0-15.0); Immature Granulocyte Absolute 0.31 K/mm3 (0.00-0.031); Immature Granulocyte Percent A 2.1 % (0-0.5); Immature Platelet Fraction Pct 3.3 % (0.9-11.2); Lymphocytes Absolute Auto 1.11 K/mm3 (0.9-3.2); Lymphocytes Percent Auto 7.6 % (18.3-44.2); Mean Corpuscular HGB Conc 31.9 g/dl (32-36); Mean Corpuscular Hemoglobin 30.1 pg (26-34); Mean Corpuscular Volume 94.2 fl (80-100); Mean Platelet Volume 10.3 fl (7.4-10.4); Monocytes Absolute Auto 1.2 K/mm3 (0.1-0.6); Monocytes Percent Auto 7.8 % (2.6-8.5); Neutrophils Absolute Auto 12.1 K/mm3 (1.3-6.7); Neutrophils Percent Auto 82.4 % (45.5-73.1); Platelet Count Result 147 k/mm3 (150-375); Red Blood Count 3.79 M/mm3 (4.2-5.4); Red Cell Distribution Width 13.7 % (11.5-14.5); White Blood Count 14.7 K/mm3 (4.5-10.0)
--- NOTE | 2024-05-03 07:18 | ECG_ITS ---
Test Date: 2024-05-03 07:41:36 Measurements Intervals [place] Rate: 97 P: 68 [place]: 172 QRS: -59 QRSD: 110 T: 58 QT: 333 QTc: 424 Interpretive Statements SINUS RHYTHM WITH OCCASIONAL VENTRICULAR PREMATURE COMPLEXES LEFT ANTERIOR FASCICULAR BLOCK ABNORMAL ECG Compared to ECG 05/01/2024 23:22:55 NO SIGNIFICANT CHANGE Electronically Signed On 05-03-2024 08:09:10 CARE ANALYST by Blayne Steele D.O.
[2024-05-03 07:41] LABS: Alanine Aminotransferase 14 U/L (6-35); Albumin Level 3.1 g/dL (3.5-5.1); Alkaline Phosphatase 57 U/L (38-126); Anion Gap 8 mmol/L (4-12); Aspartate Amino Transferase 22 U/L (14-36); Bilirubin,Total 1.4 mg/dL (0.2-1.3); Blood Urea Nitrogen 20 mg/dL (7-17); Calcium 8.5 mg/dL (8.4-10.2); Carbon Dioxide 25 mmol/L (22-30); Chloride 101 mmol/L (98-107); Estimated CRCL calculation 46 ml/min; Estimated Glomerular Filt Rate > 60; Glucose 119 mg/dL (65-110); Potassium 3.1 mmol/L (3.4-5.0); Sodium 134 mmol/L (137-145)
[2024-05-03 07:48] LABS: Lipase < 10 U/L (23-300)
[2024-05-03 08:14] LABS: Glucose Point of Care 106 mg/dl (65-105)
[2024-05-03] MEDS: POTASSIUM CHLORIDE 20 MEQ PACKET (FOR LIQUID) 40 MEQ PO (09:53)
[2024-05-03] MEDS: ENOXAPARIN 40 MG/0.4 ML SYRINGE SUB-Q (09:53)
[2024-05-03] MEDS: PANTOPRAZOLE 40 MG TABLET PO (09:54)
[2024-05-03] MEDS: LOSARTAN POTASSIUM 100 MG TABLET PO (09:54)
[2024-05-03] MEDS: hydroCHLOROthiazide 25 MG TABLET PO (09:54)
[2024-05-03] MEDS: ATORVASTATIN 40 MG TABLET PO (09:54)
[2024-05-03] MEDS: CYANOCOBALAMIN 500 MCG TABLET 2500 MCG PO (10:05)
--- NOTE | 2024-05-03 11:06 | PC.NURSE ---
Patient resting in bed during morning assessment with daughter at bedside. Patient stand and pivot to the commode and took medications without difficulty. All questions and concerns from family addressed at this time.
[2024-05-03 12:22] LABS: Glucose Point of Care 97 mg/dl (65-105)
--- NOTE | 2024-05-03 12:38 | PM.PNGS ---
Progress Note: A&P Assessment and Plan (1) Acute cholecystitis: Code(s): K81.0 - Acute cholecystitis Status: Acute Assessment and Plan: continued pain on exam and a slightly worsened leukocytosis, continue conservative management with IV antibiotics for now, discussed with patient and family higher surgical risk given cardiac disease and would like to continue conservative management for now, percutaneous cholecystostomy we may also be a consideration (2) Coronary artery disease: Code(s): I25.10 - Atherosclerotic heart disease of [place] coronary artery without angina pectoris Status: Acute Assessment and Plan: will get cardiology input for possible surgery Subjective Subjective Date/Time Seen: 05/03/24 12:38 Interval history: still c upper abd pain and back pain, poor appetite Review of Systems Review of Systems: All systems reviewed & are unremarkable except as noted in HPI and below Exam Const: General: cooperative, no acute distress and uncomfortable Resp: Auscultation: diminished lung sounds Cardio: Rate: regular rate Rhythm: regular rhythm GI: Inspection: normal to inspection and distended GI Palp: Yes abdominal tenderness, Yes Soft to palpation, Yes Tenderness to palpation present (GI), No Guarding due to palpation present (GI) and No Rigid due to palpation Objective Data Vital Signs Vital Signs: Vital Signs - 24 hr 05/02/24 12:58 05/02/24 15:29 05/02/24 20:00 Temperature 37.6 C H Pulse Rate 103 H Respiratory Rate 18 Blood Pressure 100/50 L Pulse Oximetry 91 92 Oxygen Delivery Nasal Cannula Room Air Oxygen Flow Rate 1.5 05/02/24 20:15 05/03/24 04:55 Temperature 36.8 C 37.2 C Pulse Rate 101 H 112 H Respiratory Rate 16 20 Blood Pressure 123/63 137/65 Pulse Oximetry 93 94 Oxygen Delivery Oxygen Flow Rate Intake/Output Intake/Output: Intake & Output 04/30/24 05/01/24 05/02/24 05/03/24 23:59 23:59 23:59 23:59 Intake Total 2043.9 1100 Output Total 375 Balance 2043.9 725 Meds/Results Medications: Active Medications Generic Name Dose Route Start Last Admin Trade Name Freq PRN Reason Stop Dose Admin Amitriptyline HCl 30 mg 05/02/24 21:00 05/02/24 20:33 Amitriptyline Hcl 10 Mg Tablet PO 30 mg HS MELISSA Administration Atorvastatin Calcium 40 mg 05/03/24 09:00 05/03/24 09:54 Atorvastatin 40 Mg Tablet PO 40 mg DAILY MELISSA Administration Cyanocobalamin 2,500 mcg 05/03/24 09:00 05/03/24 10:05 Cyanocobalamin 500 Mcg Tablet PO 2,500 mcg QAM MELISSA Administration Dextrose 12.5 gm 05/02/24 13:48 Dextrose 50% 25 Gm/50 Ml Syringe IV PUSH PRN PRN Hypoglycemia Protocol Enoxaparin Sodium 40 mg 05/03/24 09:00 05/03/24 09:53 Enoxaparin 40 Mg/0.4 Ml Syringe SUB-Q 40 mg DAILY MELISSA Administration Glucagon 1 mg 05/02/24 13:48 Glucagon For Inj 1 Mg Vial IM PRN PRN Hypoglycemia Protocol Glucose 15 gm 05/02/24 13:48 Glucose Oral Gel 15 Gm Of Glucse In 37.5 Gm Tube PO PRN PRN Hypoglycemia Protocol Hydrochlorothiazide 25 mg 05/03/24 09:00 05/03/24 09:54 Hydrochlorothiazide 25 Mg Tablet PO 25 mg DAILY MELISSA Administration Piperacillin/Tazobactam/Dextrose 3.375 gm in 50 mls @ 100 mls/hr 05/02/24 12:00 05/03/24 05:30 Zosyn 3.375 Gm/Ns 50 Ml IVPB 100 mls/hr Q6HR MELISSA Administration Dextrose 1,000 mls @ 100 mls/hr 05/02/24 13:48 Dextrose 5% 1,000 Ml IVPB PRN PRN Hypoglycemia Protocol Insulin Aspart 3 - 6 units 05/02/24 17:00 05/03/24 09:17 Insulin Aspart (*Bkc) 100 Units/Ml SUB-Q Not Given TIDWM [facility] Protocol Levothyroxine Sodium 25 mcg 05/03/24 06:30 05/03/24 05:30 Levothyroxine Sodium 25 Mcg Tablet PO 25 mcg DAILY@0630 MELISSA Administration Losartan Potassium 100 mg 05/03/24 09:00 05/03/24 09:54 Losartan Potassium 100 Mg Tablet PO 100 mg DAILY MELISSA Administration Morphine Sulfate 2 mg 05/02/24 03:45 05/03/24 04:29 Morphine Sulfate (*Crx) 2 Mg/Ml Inj IV PUSH 2 mg Q2H PRN Administration Pain Rated 7-10 Nitroglycerin 0.4 mg 05/02/24 13:50 Nitroglycerin Sl 0.4 Mg Tablet SUBLINGUAL Q5M PRN chest pain Ondansetron HCl 4 mg 05/02/24 03:45 Ondansetron Inj 4 Mg/2 Ml Vial IV PUSH Q4H PRN Nausea Pantoprazole Sodium 40 mg 05/03/24 09:00 05/03/24 09:54 Pantoprazole 40 Mg Tablet PO 40 mg QAM MELISSA Administration Radiology Results: ITS Impressions Chest X-Ray 05/01/24 20:44 IMPRESSION: 1. Mild atelectasis at right lung base. 2. Cardiomegaly. Abdomen/Pelvis CT 05/02/24 06:27 IMPRESSION: 1. Acute cholecystitis. Upper Quadrant Ultrasound 05/02/24 13:50 IMPRESSION: 1. Acute cholecystitis. Labs Labs: Laboratory Results - last 24 hr 05/02/24 05/03/24 05/03/24 16:46 07:05 07:52 WBC 14.7 H RBC 3.79 L Hgb 11.4 L Hct 35.7 L MCV 94.2 MCH 30.1 MCHC 31.9 L RDW 13.7 Plt Count 147 L MPV 10.3 Immature Gran % (Auto) 2.1 H Neut % (Auto) 82.4 H Lymph % (Auto) 7.6 L [place] % (Auto) 7.8 Eos % (Auto) 0.0 Baso % (Auto) 0.1 L Lymph # (Auto) 1.11 [place] # (Auto) 1.2 H Eos # (Auto) 0.0 Baso # (Auto) 0.0 Abs Immat Gran (auto) 0.31 H Absolute Neuts (auto) 12.1 H Absolute Nucleated RBC 0.000 Nucleated RBC % 0.0 % Immature Plt Fraction 3.3 Sodium 134 L Potassium 3.1 L Chloride 101 Carbon Dioxide 25 Anion Gap 8 BUN 20 H Creatinine 0.75 Estim Creat Clear Calc 46 Estimated GFR > 60 Glucose 119 H POC Capillary Glucose 116 H 106 H Calcium 8.5 Total Bilirubin 1.4 H AST 22 ALT 14 Alkaline Phosphatase 57 Total Protein 6.0 L Albumin 3.1 L Lipase < 10 L 05/03/24 11:53 WBC RBC Hgb Hct MCV MCH MCHC RDW Plt Count MPV Immature Gran % (Auto) Neut % (Auto) Lymph % (Auto) [place] % (Auto) Eos % (Auto) Baso % (Auto) Lymph # (Auto) [place] # (Auto) Eos # (Auto) Baso # (Auto) Abs Immat Gran (auto) Absolute Neuts (auto) Absolute Nucleated RBC Nucleated RBC % % Immature Plt Fraction Sodium Potassium Chloride Carbon Dioxide Anion Gap BUN Creatinine Estim Creat Clear Calc Estimated GFR Glucose POC Capillary Glucose 97 Calcium Total Bilirubin AST ALT Alkaline Phosphatase Total Protein Albumin Lipase
--- NOTE | 2024-05-03 12:45 | P.PNIM_ITS ---
Progress Note: A&P Assessment and Plan (1) Acute cholecystitis: Code(s): K81.0 - Acute cholecystitis Status: Acute Assessment and Plan: Patient presents with abdominal pain. CT scan showing distended GB with ga llstones, wall thickening and surrounding fat stranding consistent with acute cholecystitis. RUQ US showing similar findings. Patient started on Zosyn. Started on clear liquid diet. She was on IV fluids but off now. General surgery consulted. Appreciate their input. Patient high risk with plan currently to treat conservatively. WBC higher today. Continue IV abx. Continue supportive care. Adjust analgesics to control pain and minimize confusion (2) Essential hypertension: Code(s): I10 - Essential (primary) hypertension Status: Acute Assessment and Plan: Patient's blood pressure was reviewed on 05/03 Blood pressure better controlled Continue current medications. (3) Coronary artery disease: Code(s): I25.10 - Atherosclerotic heart disease of [place] coronary artery without angina pectoris Status: Acute Assessment and Plan: Patient with coronary disease. Continue Lipitor. She is not on metoprolol or aspirin. Renexa on hold. (4) Prediabetes: Code(s): R73.03 - Prediabetes Status: Acute Assessment and Plan: The patient's blood glucose was reviewed on 05/03 Glucose remains well controlled. Continue AccuCheks covering with sliding scale. Hypoglycemia protocol available as needed. Continue to follow Plan Poor urine output - Resume IV fluids. Hold HCTZ. Monitor renal fxn. may be 3rd spacing fluids. DVT prophylaxis - SCDs, Lovenox Code status - full Subjective Date/time seen: 05/03/24 12:45 Interval history: 84yo female with CAD, HTN and pre-DM here for abdominal pain. Was having difficulty voiding this morning. Does not have MAIRA. Not eating much. No CP or SOB. No n/v. No appetite. No cough. Complains of abd and back pain. Exam Narrative: AF 99 137/65 112 20 94% ra Gen - NARD Chest - bibasilar inspiratory crackles. CV - RRR S1/S2 Abd - Soft, persitent RUQ pain. Ext - No pedal edema Psych - Nml mood and affect Skin - Warm and dry Objective Data Vital Signs Vital Signs: Vital Signs - 24 hr 05/02/24 12:58 05/02/24 15:29 05/02/24 20:00 Temperature 99.7 F H Pulse Rate 103 H Respiratory Rate 18 Blood Pressure 100/50 L Pulse Oximetry 91 92 Oxygen Delivery Nasal Cannula Room Air Oxygen Flow Rate 1.5 05/02/24 20:15 05/03/24 04:55 Temperature 98.2 F 99 F Pulse Rate 101 H 112 H Respiratory Rate 16 20 Blood Pressure 123/63 137/65 Pulse Oximetry 93 94 Oxygen Delivery Oxygen Flow Rate Intake/Output Intake/Output: Intake & Output 04/30/24 05/01/24 05/02/24 05/03/24 23:59 23:59 23:59 23:59 Intake Total 2043.9 1100 Output Total 375 Balance 2043.9 725 Meds/Results Medications: Active Medications Generic Name Dose Route Start Last Admin Trade Name Freq PRN Reason Stop Dose Admin Amitriptyline HCl 30 mg 05/02/24 21:00 05/02/24 20:33 Amitriptyline Hcl 10 Mg Tablet PO 30 mg HS MELISSA Administration Atorvastatin Calcium 40 mg 05/03/24 09:00 05/03/24 09:54 Atorvastatin 40 Mg Tablet PO 40 mg DAILY MELISSA Administration Cyanocobalamin 2,500 mcg 05/03/24 09:00 05/03/24 10:05 Cyanocobalamin 500 Mcg Tablet PO 2,500 mcg QAM MELISSA Administration Dextrose 12.5 gm 05/02/24 13:48 Dextrose 50% 25 Gm/50 Ml Syringe IV PUSH PRN PRN Hypoglycemia Protocol Enoxaparin Sodium 40 mg 05/03/24 09:00 05/03/24 09:53 Enoxaparin 40 Mg/0.4 Ml Syringe SUB-Q 40 mg DAILY MELISSA Administration Glucagon 1 mg 05/02/24 13:48 Glucagon For Inj 1 Mg Vial IM PRN PRN Hypoglycemia Protocol Glucose 15 gm 05/02/24 13:48 Glucose Oral Gel 15 Gm Of Glucse In 37.5 Gm Tube PO PRN PRN Hypoglycemia Protocol Hydrochlorothiazide 25 mg 05/03/24 09:00 05/03/24 09:54 Hydrochlorothiazide 25 Mg Tablet PO 25 mg DAILY MELISSA Administration Piperacillin/Tazobactam/Dextrose 3.375 gm in 50 mls @ 100 mls/hr 05/02/24 12:00 05/03/24 05:30 Zosyn 3.375 Gm/Ns 50 Ml IVPB 100 mls/hr Q6HR MELISSA Administration Dextrose 1,000 mls @ 100 mls/hr 05/02/24 13:48 Dextrose 5% 1,000 Ml IVPB PRN PRN Hypoglycemia Protocol Insulin Aspart 3 - 6 units 05/02/24 17:00 05/03/24 09:17 Insulin Aspart (*Bkc) 100 Units/Ml SUB-Q Not Given TIDWM [facility] Protocol Levothyroxine Sodium 25 mcg 05/03/24 06:30 05/03/24 05:30 Levothyroxine Sodium 25 Mcg Tablet PO 25 mcg DAILY@0630 MELISSA Administration Losartan Potassium 100 mg 05/03/24 09:00 05/03/24 09:54 Losartan Potassium 100 Mg Tablet PO 100 mg DAILY MELISSA Administration Morphine Sulfate 2 mg 05/02/24 03:45 05/03/24 04:29 Morphine Sulfate (*Crx) 2 Mg/Ml Inj IV PUSH 2 mg Q2H PRN Administration Pain Rated 7-10 Nitroglycerin 0.4 mg 05/02/24 13:50 Nitroglycerin Sl 0.4 Mg Tablet SUBLINGUAL Q5M PRN chest pain Ondansetron HCl 4 mg 05/02/24 03:45 Ondansetron Inj 4 Mg/2 Ml Vial IV PUSH Q4H PRN Nausea Pantoprazole Sodium 40 mg 05/03/24 09:00 05/03/24 09:54 Pantoprazole 40 Mg Tablet PO 40 mg QAM MELISSA Administration Radiology Results: ITS Impressions Chest X-Ray 05/01/24 20:44 IMPRESSION: 1. Mild atelectasis at right lung base. 2. Cardiomegaly. Abdomen/Pelvis CT 05/02/24 06:27 IMPRESSION: 1. Acute cholecystitis. Upper Quadrant Ultrasound 05/02/24 13:50 IMPRESSION: 1. Acute cholecystitis. Labs Labs: Laboratory Results - last 24 hr 05/02/24 05/03/24 05/03/24 16:46 07:05 07:52 WBC 14.7 H RBC 3.79 L Hgb 11.4 L Hct 35.7 L MCV 94.2 MCH 30.1 MCHC 31.9 L RDW 13.7 Plt Count 147 L MPV 10.3 Immature Gran % (Auto) 2.1 H Neut % (Auto) 82.4 H Lymph % (Auto) 7.6 L [place] % (Auto) 7.8 Eos % (Auto) 0.0 Baso % (Auto) 0.1 L Lymph # (Auto) 1.11 [place] # (Auto) 1.2 H Eos # (Auto) 0.0 Baso # (Auto) 0.0 Abs Immat Gran (auto) 0.31 H Absolute Neuts (auto) 12.1 H Absolute Nucleated RBC 0.000 Nucleated RBC % 0.0 % Immature Plt Fraction 3.3 Sodium 134 L Potassium 3.1 L Chloride 101 Carbon Dioxide 25 Anion Gap 8 BUN 20 H Creatinine 0.75 Estim Creat Clear Calc 46 Estimated GFR > 60 Glucose 119 H POC Capillary Glucose 116 H 106 H Calcium 8.5 Total Bilirubin 1.4 H AST 22 ALT 14 Alkaline Phosphatase 57 Total Protein 6.0 L Albumin 3.1 L Lipase < 10 L 05/03/24 11:53 WBC RBC Hgb Hct MCV MCH MCHC RDW Plt Count MPV Immature Gran % (Auto) Neut % (Auto) Lymph % (Auto) [place] % (Auto) Eos % (Auto) Baso % (Auto) Lymph # (Auto) [place] # (Auto) Eos # (Auto) Baso # (Auto) Abs Immat Gran (auto) Absolute Neuts (auto) Absolute Nucleated RBC Nucleated RBC % % Immature Plt Fraction Sodium Potassium Chloride Carbon Dioxide Anion Gap BUN Creatinine Estim Creat Clear Calc Estimated GFR Glucose POC Capillary Glucose 97 Calcium Total Bilirubin AST ALT Alkaline Phosphatase Total Protein Albumin Lipase
[2024-05-03 14:00] VITALS: BP 111/75; PULSE 106; RESP 20; TEMP 36.7; O2SAT 92
[2024-05-03 17:16] LABS: Glucose Point of Care 108 mg/dl (65-105)
--- NOTE | 2024-05-03 19:03 | PC.NURSE ---
1824 Bladder scan 413mL. Spoke with MD. Start fluids and re-scan before bedtime and/or report urine output.
[2024-05-03 20:00] VITALS: O2SAT 97
[2024-05-03] MEDS: AMITRIPTYLINE HCL 10 MG TABLET 30 MG PO (20:29)
[2024-05-03] MEDS: SODIUM CHLORIDE 0.9% IV 1,000 ML 70 ML IV CONT (20:29)
[2024-05-03] MEDS: HYDROcodone/acetaminophen (*CRX) 5-325 MG TABLET 1 TAB PO (20:43)
[2024-05-03 21:29] VITALS: BP 107/50; PULSE 56; RESP 20; TEMP 36.5; O2SAT 97
[2024-05-04] VITALS (16 sets, daily range): BP systolic 86–131; BP diastolic 48–95; PULSE 62–153; RESP 18–20; TEMP 36.8–37.1; O2SAT 94–99
[2024-05-04 01:32] LABS: Add Urine Microscopic? YES; Appearance Urine Clear (Clear); Bacteria Urine None Seen /hpf; Bilirubin Urine 1+ (Negative); Blood Urine Negative (Negative); Color Urine Dark Yellow (Yellow); Glucose Urine UA Negative (Negative); Ketones Urine Trace mg/dL (Negative); Leukocyte Esterase Ur Trace LEU/UL (Negative); Nitrate Urine Negative (Negative); Non Pathogenic Casts 0-2; Protein Urine 1+ mg/dL (Negative); RBC Urine 0-2 /hpf (0-2); Squamous Epithelial Cell Urine None Seen /hpf (Few); WBC Urine 0-5 /hpf (0-3); pH Urine 5.5 (5.0-9.0)
[2024-05-04] MEDS: LEVOTHYROXINE SODIUM 25 MCG TABLET PO (05:50)
[2024-05-04] MEDS: HYDROcodone/acetaminophen (*CRX) 5-325 MG TABLET 1 TAB PO ×2 (05:50→20:16)
[2024-05-04] MEDS: PIPERACILLN/TAZ 3.375GM/NS50ML 3.375 GM/50 ML BAG IVPB ×3 (05:50→17:12)
[2024-05-04 06:48] LABS: Hematocrit 35.9 % (37.0-47.0); Hemoglobin 11.4 g/dL (12.0-15.0); Immature Platelet Fraction Pct 4.7 % (0.9-11.2); Mean Corpuscular HGB Conc 31.8 g/dl (32-36); Mean Corpuscular Hemoglobin 30.2 pg (26-34); Mean Corpuscular Volume 95.2 fl (80-100); Mean Platelet Volume 10.6 fl (7.4-10.4); Platelet Count Result 126 k/mm3 (150-375); Red Blood Count 3.77 M/mm3 (4.2-5.4); Red Cell Distribution Width 13.6 % (11.5-14.5); White Blood Count 10.9 K/mm3 (4.5-10.0)
[2024-05-04 06:50] LABS: Alanine Aminotransferase 14 U/L (6-35); Albumin Level 2.9 g/dL (3.5-5.1); Alkaline Phosphatase 61 U/L (38-126); Anion Gap 6 mmol/L (4-12); Aspartate Amino Transferase 15 U/L (14-36); Bilirubin,Total 1.4 mg/dL (0.2-1.3); Blood Urea Nitrogen 23 mg/dL (7-17); Calcium 8.3 mg/dL (8.4-10.2); Carbon Dioxide 27 mmol/L (22-30); Chloride 101 mmol/L (98-107); Estimated CRCL calculation 45 ml/min; Estimated Glomerular Filt Rate > 60; Glucose 109 mg/dL (65-110); Potassium 3.3 mmol/L (3.4-5.0); Sodium 134 mmol/L (137-145)
[2024-05-04 07:58] LABS: Band Neutrophils Percent 6 % (0-6); Lymphocytes Absolute Manual 1.09 K/mm3 (1.1-4.5); Lymphocytes Percent Manual 10 % (18-44); Monocytes Absolute Manual 0.65 K/mm3 (0.1-0.90); Monocytes Percent Manual 6 % (3-9); Neutrophils Absolute Manual 9.15 K/mm3 (1.7-7.2); Neutrophils Percent Manual 78 % (46-73); Total Cells Counted 100
[2024-05-04 07:59] LABS: Platelet Estimate Slightly Decreased (Adequate); Schistocytes None Seen
[2024-05-04 08:23] LABS: Glucose Point of Care 128 mg/dl (65-105)
[2024-05-04] MEDS: ATORVASTATIN 40 MG TABLET PO (08:46)
[2024-05-04] MEDS: PANTOPRAZOLE 40 MG TABLET PO (08:46)
[2024-05-04] MEDS: LOSARTAN POTASSIUM 100 MG TABLET PO (08:47)
[2024-05-04] MEDS: POTASSIUM CHLORIDE 20 MEQ PACKET (FOR LIQUID) 40 MEQ PO (08:48)
[2024-05-04] MEDS: ENOXAPARIN 40 MG/0.4 ML SYRINGE SUB-Q (08:48)
[2024-05-04] MEDS: CYANOCOBALAMIN 500 MCG TABLET 2500 MCG PO (08:53)
--- NOTE | 2024-05-04 09:14 | ECG_ITS ---
Test Date: 2024-05-04 09:27:08 Measurements Intervals [place] Rate: 150 P: 0 [place]: 0 QRS: -61 QRSD: 105 T: 83 QT: 281 QTc: 444 Interpretive Statements ATRIAL FIBRILLATION WITH RAPID VENTRICULAR RESPONSE LEFT ANTERIOR FASCICULAR BLOCK BORDERLINE ST-T WAVE ABNORMALITY- HIGH LATERAL LEADS BASELINE WANDER- I, AVR, AVL, AVF ABNORMAL ECG Compared to ECG 05/03/2024 07:41:36 SINUS RHYTHM NO LONGER PRESENT Electronically Signed On 05-04-2024 09:37:32 SOCIAL SECURITY ASSESSOR by Blayne Steele D.O.
--- NOTE | 2024-05-04 10:52 | P.PNIM_ITS ---
Progress Note: A&P Assessment and Plan (1) Atrial fibrillation: Code(s): I48.91 - Unspecified atrial fibrillation Status: Acute Assessment and Plan: Patient had tachycardia noted the other night but EKG on 05/03 showing normal sinus rhythm Again noted to have tachycardia and irregular rhythm and EKG now showing AFib/RVR (HR 150), LAFB and borderline ST-T wave changes in the high lateral leads. Patient was moved to IMU and Diltiazem drip started. Probably related to current GB infection/inflammation. [id number] at least 6. TSH normal on 04/23/24. Start Heparin drip since surgery still may be needed. Check Echo. Cards consult. Hold Cozaar given soft BP. Advance diltiazem to control rate. May need Amiodarone to try to convert her. (2) Acute cholecystitis: Code(s): K81.0 - Acute cholecystitis Status: Acute Assessment and Plan: Patient presents with abdominal pain. CT scan showing distended GB with gallstones, wall thickening and surrounding fat stranding consistent with acute cholecystitis. RUQ US showing similar findings. Patient started on Zosyn. Started on clear liquid diet. General surgery consulted. Appreciate their input. Patient high risk with plan currently to treat conservatively. WBC better today. Continue IV abx. IV fluids started for poor UOP but with positive fluid balance so will stop. Continue supportive care. Adjust analgesics to control pain and minimize confusion. (3) Essential hypertension: Code(s): I10 - Essential (primary) hypertension Status: Acute Assessment and Plan: Patient's blood pressure was reviewed on 05/04 Blood pressure soft at times Continue current medications. (4) Coronary artery disease: Code(s): I25.10 - Atherosclerotic heart disease of [place] coronary artery without angina pectoris Status: Acute Assessment and Plan: Patient with coronary disease. Continue Lipitor. She is not on metoprolol or aspirin. Renexa on hold. Resume Renexa since no surgery planned. QTc okay. (5) Prediabetes: Code(s): R73.03 - Prediabetes Status: Acute Assessment and Plan: The patient's blood glucose was reviewed on 05/04 Glucose remains well controlled. Continue AccuCheks covering with sliding scale. Hypoglycemia protocol available as needed. Continue to follow Plan Urine retention - Alvarez placed. UOP better. Hold IV fluids. Voiding trial when more ambulatory. DVT prophylaxis - SCDs, Heparin Code status - full Subjective Date/time seen: 05/04/24 10:52 Interval history: 84yo female with CAD, HTN and pre-DM here for abdominal pain. Urine retention noted overnight so Alvarez placed. no abd pain. No Cp or SOB. No cough. Exam Narrative: AF 98.8 118/67 96 18 96% ra Gen - NARD Chest - left base crackles and decreased BS in the right base o/w clear. CV - tachycardic, irregular Abd - Soft, persistent RUQ pain. Ext - No pedal edema Psych - Nml mood and affect Skin - Warm and dry Objective Data Vital Signs Vital Signs: Vital Signs - 24 hr 05/03/24 14:00 05/03/24 20:00 05/03/24 21:29 Temperature 98.0 F 97.7 F Pulse Rate 106 H 56 L Respiratory Rate 20 20 Blood Pressure 111/75 107/50 L Pulse Oximetry 92 97 97 Oxygen Delivery Nasal Cannula Oxygen Flow Rate 2 05/04/24 06:00 05/04/24 08:00 05/04/24 09:18 Temperature 98.8 F Pulse Rate 96 Respiratory Rate 18 Blood Pressure 118/67 Pulse Oximetry 95 98 96 Oxygen Delivery Nasal Cannula Nasal Cannula Oxygen Flow Rate 2 2 Intake/Output Intake/Output: Intake & Output 05/01/24 05/02/24 05/03/24 05/04/24 23:59 23:59 23:59 23:59 Intake Total 2043.9 1536 200 Output Total 475 650 Balance 2043.9 1061 -450 Meds/Results Medications: Active Medications Generic Name Dose Route Start Last Admin Trade Name Freq PRN Reason Stop Dose Admin Acetaminophen 650 mg 05/03/24 12:48 Acetaminophen 325 Mg Tablet PO Q6H PRN Mild Pain (1-5) Or Fever Hydrocodone Bitart/Acetaminophen 1 tab 05/03/24 12:48 05/04/24 05:50 Hydrocodone/Acetaminophen (*Crx) 5-325 Mg Tablet PO 1 tab Q6H PRN Administration Pain Rated 6 or Greater Amitriptyline HCl 30 mg 05/02/24 21:00 05/03/24 20:29 Amitriptyline Hcl 10 Mg Tablet PO 30 mg HS MELISSA Administration Atorvastatin Calcium 40 mg 05/03/24 09:00 05/04/24 08:46 Atorvastatin 40 Mg Tablet PO 40 mg DAILY MELISSA Administration Cyanocobalamin 2,500 mcg 05/03/24 09:00 05/04/24 08:53 Cyanocobalamin 500 Mcg Tablet PO 2,500 mcg QAM MELISSA Administration Dextrose 12.5 gm 05/02/24 13:48 Dextrose 50% 25 Gm/50 Ml Syringe IV PUSH PRN PRN Hypoglycemia Protocol Enoxaparin Sodium 40 mg 05/03/24 09:00 05/04/24 08:48 Enoxaparin 40 Mg/0.4 Ml Syringe SUB-Q 40 mg DAILY MELISSA Administration Glucagon 1 mg 05/02/24 13:48 Glucagon For Inj 1 Mg Vial IM PRN PRN Hypoglycemia Protocol Glucose 15 gm 05/02/24 13:48 Glucose Oral Gel 15 Gm Of Glucse In 37.5 Gm Tube PO PRN PRN Hypoglycemia Protocol Hydrochlorothiazide 25 mg 05/03/24 09:00 05/03/24 09:54 Hydrochlorothiazide 25 Mg Tablet PO 25 mg DAILY MELISSA Administration Piperacillin/Tazobactam/Dextrose 3.375 gm in 50 mls @ 100 mls/hr 05/02/24 12:00 05/04/24 05:50 Zosyn 3.375 Gm/Ns 50 Ml IVPB 100 mls/hr Q6HR MELISSA Administration Dextrose 1,000 mls @ 100 mls/hr 05/02/24 13:48 Dextrose 5% 1,000 Ml IVPB PRN PRN Hypoglycemia Protocol Sodium Chloride 1,000 mls @ 70 mls/hr 05/03/24 18:45 05/03/24 20:29 Normal Saline Iv IV CONT 70 mls/hr .[id number] MELISSA Administration Insulin Aspart 3 - 6 units 05/02/24 17:00 05/04/24 08:29 Insulin Aspart (*Bkc) 100 Units/Ml SUB-Q Not Given TIDWM MELISSA Protocol Levothyroxine Sodium 25 mcg 05/03/24 06:30 05/04/24 05:50 Levothyroxine Sodium 25 Mcg Tablet PO 25 mcg DAILY@0630 MELISSA Administration Losartan Potassium 100 mg 05/03/24 09:00 05/04/24 08:47 Losartan Potassium 100 Mg Tablet PO 100 mg DAILY MELISSA Administration Nitroglycerin 0.4 mg 05/02/24 13:50 Nitroglycerin Sl 0.4 Mg Tablet SUBLINGUAL Q5M PRN chest pain Ondansetron HCl 4 mg 05/02/24 03:45 Ondansetron Inj 4 Mg/2 Ml Vial IV PUSH Q4H PRN Nausea Pantoprazole Sodium 40 mg 05/03/24 09:00 05/04/24 08:46 Pantoprazole 40 Mg Tablet PO 40 mg QAM MELISSA Administration Radiology Results: ITS Impressions Chest X-Ray 05/01/24 20:44 IMPRESSION: 1. Mild atelectasis at right lung base. 2. Cardiomegaly. Abdomen/Pelvis CT 05/02/24 06:27 IMPRESSION: 1. Acute cholecystitis. Upper Quadrant Ultrasound 05/02/24 13:50 IMPRESSION: 1. Acute cholecystitis. Labs Labs: Laboratory Results - last 24 hr 05/03/24 05/03/24 05/04/24 11:53 17:11 00:42 WBC RBC Hgb Hct MCV MCH MCHC RDW Plt Count MPV Immature Gran % (Auto) Neut % (Auto) Lymph % (Auto) [place] % (Auto) Eos % (Auto) Baso % (Auto) Lymph # (Auto) [place] # (Auto) Eos # (Auto) Baso # (Auto) Abs Immat Gran (auto) Absolute Neuts (auto) Absolute Nucleated RBC Total Counted Neutrophils % (Manual) Band Neutrophils % Lymphocytes % (Manual) Monocytes % (Manual) Nucleated RBC % Abs Neuts (Manual) Abs Lymphs (Manual) Abs Monocytes (Manual) Platelet Estimate % Immature Plt Fraction Schistocytes Sodium Potassium Chloride Carbon Dioxide Anion Gap BUN Creatinine Estim Creat Clear Calc Estimated GFR Glucose POC Capillary Glucose 97 108 H Calcium Total Bilirubin AST ALT Alkaline Phosphatase Total Protein Albumin Urine Color Dark yellow Urine Appearance Clear Urine pH 5.5 Ur Specific [place] 1.040 H Urine Protein 1+ H Urine Glucose (UA) Negative Urine Ketones Trace H Ur Blood (Man) Negative Urine Nitrate Negative Urine Bilirubin 1+ H Urine Urobilinogen 1.0 Ur Leukocyte Esterase Trace H Urine RBC 0-2 Urine WBC 0-5 Ur Squamous Epith Cells None seen Urine Bacteria None seen Urine Casts 0-2 05/04/24 05/04/24 06:14 08:08 WBC 10.9 H RBC 3.77 L Hgb 11.4 L Hct 35.9 L MCV 95.2 MCH 30.2 MCHC 31.8 L RDW 13.6 Plt Count 126 L MPV 10.6 H Immature Gran % (Auto) Not Reportable Neut % (Auto) Not Reportable Lymph % (Auto) Not Reportable [place] % (Auto) Not Reportable Eos % (Auto) Not Reportable Baso % (Auto) Not Reportable Lymph # (Auto) Not Reportable [place] # (Auto) Not Reportable Eos # (Auto) Not Reportable Baso # (Auto) Not Reportable Abs Immat Gran (auto) Not Reportable Absolute Neuts (auto) Not Reportable Absolute Nucleated RBC Not Reportable Total Counted 100 Neutrophils % (Manual) 78 H Band Neutrophils % 6 Lymphocytes % (Manual) 10 L Monocytes % (Manual) 6 Nucleated RBC % Not Reportable Abs Neuts (Manual) 9.15 H Abs Lymphs (Manual) 1.09 L Abs Monocytes (Manual) 0.65 Platelet Estimate Slightly decreased % Immature Plt Fraction 4.7 Schistocytes None seen Sodium 134 L Potassium 3.3 L Chloride 101 Carbon Dioxide 27 Anion Gap 6 BUN 23 H Creatinine 0.77 Estim Creat Clear Calc 45 Estimated GFR > 60 Glucose 109 POC Capillary Glucose 128 H Calcium 8.3 L Total Bilirubin 1.4 H AST 15 ALT 14 Alkaline Phosphatase 61 Total Protein 6.0 L Albumin 2.9 L Urine Color Urine Appearance Urine pH Ur Specific [place] Urine Protein Urine Glucose (UA) Urine Ketones Ur Blood (Man) Urine Nitrate Urine Bilirubin Urine Urobilinogen Ur Leukocyte Esterase Urine RBC Urine WBC Ur Squamous Epith Cells Urine Bacteria Urine Casts
--- NOTE | 2024-05-04 11:11 | PM.PNGS ---
Progress Note: A&P Assessment and Plan (1) Acute cholecystitis: Code(s): K81.0 - Acute cholecystitis Status: Acute Assessment and Plan: Abdominal pain and leukocytosis improved. Continue conservative management with IV antibiotics for now. Advance to a low fat diet. She is a high risk surgical candidate given her cardiac disease. Hopefully she will continue to improve with antibiotics, but could also consider percutaneous cholecystostomy tube placement if her overall status declines. (2) Coronary artery disease: Code(s): I25.10 - Atherosclerotic heart disease of [place] coronary artery without angina pectoris Status: Acute Assessment and Plan: Cardiology consulted for preoperative evaluation to get their input for possible surgery, and she also had an EKG today that showed A.fib with RVR. Will await their recommendations. Plan I have discussed the patient's case and plan of care with Dr. Mckenzie. Subjective Subjective Date/Time Seen: 05/04/24 11:11 Patient reports: no new complaints, feels better and afebrile Interval history: Patient doing well. Her diet is being advanced and she is tolerating it well. She did have some mild right upper quadrant abdominal pain earlier this morning, but denies any abdominal pain at the time of my exam. No nausea or vomiting. She had an EKG this morning that showed AFib with RVR. Cardiology consult pending. Exam Const: General: comfortable and no acute distress GI: Inspection: non-distended GI Palp: Yes Soft to palpation, Yes Tenderness to palpation present (GI) (Right upper quadrant), No Guarding due to palpation present (GI) and No Rebound tenderness present Auscultation: normal bowel sounds Objective Data Vital Signs Vital Signs: Vital Signs - 24 hr 05/03/24 14:00 05/03/24 20:00 05/03/24 21:29 Temperature 98.0 F 97.7 F Pulse Rate 106 H 56 L Respiratory Rate 20 20 Blood Pressure 111/75 107/50 L Pulse Oximetry 92 97 97 Oxygen Delivery Nasal Cannula Oxygen Flow Rate 2 05/04/24 06:00 05/04/24 08:00 05/04/24 09:18 Temperature 98.8 F Pulse Rate 96 Respiratory Rate 18 Blood Pressure 118/67 Pulse Oximetry 95 98 96 Oxygen Delivery Nasal Cannula Nasal Cannula Oxygen Flow Rate 2 2 Intake/Output Intake/Output: Intake & Output 01/31/25 05/02/24 05/03/24 05/04/24 23:59 23:59 23:59 23:59 Intake Total 2043.9 1536 200 Output Total 567 650 Balance 2043.9 1061 -450 Meds/Results Medications: Active Medications Generic Name Dose Route Start Last Admin Trade Name Freq PRN Reason Stop Dose Admin Acetaminophen 650 mg 05/03/24 12:48 Acetaminophen 325 Mg Tablet PO Q6H PRN Mild Pain (1-5) Or Fever Hydrocodone Bitart/Acetaminophen 1 tab 05/03/24 12:48 05/04/24 05:50 Hydrocodone/Acetaminophen (*Crx) 5-325 Mg Tablet PO 1 tab Q6H PRN Administration Pain Rated 6 or Greater Amitriptyline HCl 30 mg 05/02/24 21:00 05/03/24 20:29 Amitriptyline Hcl 10 Mg Tablet PO 30 mg HS MELISSA Administration Atorvastatin Calcium 40 mg 05/03/24 09:00 05/04/24 08:46 Atorvastatin 40 Mg Tablet PO 40 mg DAILY MELISSA Administration Cyanocobalamin 2,500 mcg 05/03/24 09:00 05/04/24 08:53 Cyanocobalamin 500 Mcg Tablet PO 2,500 mcg QAM MELISSA Administration Dextrose 12.5 gm 05/02/24 13:48 Dextrose 50% 25 Gm/50 Ml Syringe IV PUSH PRN PRN Hypoglycemia Protocol Enoxaparin Sodium 40 mg 05/03/24 09:00 05/04/24 08:48 Enoxaparin 40 Mg/0.4 Ml Syringe SUB-Q 40 mg DAILY MELISSA Administration Glucagon 1 mg 05/02/24 13:48 Glucagon For Inj 1 Mg Vial IM PRN PRN Hypoglycemia Protocol Glucose 15 gm 05/02/24 13:48 Glucose Oral Gel 15 Gm Of Glucse In 37.5 Gm Tube PO PRN PRN Hypoglycemia Protocol Hydrochlorothiazide 25 mg 05/03/24 09:00 05/03/24 09:54 Hydrochlorothiazide 25 Mg Tablet PO 25 mg DAILY MELISSA Administration Piperacillin/Tazobactam/Dextrose 3.375 gm in 50 mls @ 100 mls/hr 05/02/24 12:00 05/04/24 05:50 Zosyn 3.375 Gm/Ns 50 Ml IVPB 100 mls/hr Q6HR MELISSA Administration Dextrose 1,000 mls @ 100 mls/hr 05/02/24 13:48 Dextrose 5% 1,000 Ml IVPB PRN PRN Hypoglycemia Protocol Sodium Chloride 1,000 mls @ 70 mls/hr 05/03/24 18:45 05/03/24 20:29 Normal Saline Iv IV CONT 70 mls/hr .[id number] MELISSA Administration Diltiazem HCl 100 mg in 100 mls @ 5 mls/hr 05/04/24 11:15 Cardizem 100 Mg/100 Ml IV CONT .Q20H MELISSA 5 MG/HR Insulin Aspart 3 - 6 units 05/02/24 17:00 05/04/24 08:29 Insulin Aspart (*Bkc) 100 Units/Ml SUB-Q Not Given TIDWM [facility] Protocol Levothyroxine Sodium 25 mcg 05/03/24 06:30 05/04/24 05:50 Levothyroxine Sodium 25 Mcg Tablet PO 25 mcg DAILY@0630 MELISSA Administration Losartan Potassium 100 mg 05/03/24 09:00 05/04/24 08:47 Losartan Potassium 100 Mg Tablet PO 100 mg DAILY MELISSA Administration Nitroglycerin 0.4 mg 05/02/24 13:50 Nitroglycerin Sl 0.4 Mg Tablet SUBLINGUAL Q5M PRN chest pain Ondansetron HCl 4 mg 05/02/24 03:45 Ondansetron Inj 4 Mg/2 Ml Vial IV PUSH Q4H PRN Nausea Pantoprazole Sodium 40 mg 05/03/24 09:00 05/04/24 08:46 Pantoprazole 40 Mg Tablet PO 40 mg QAM MELISSA Administration Radiology Results: ITS Impressions Chest X-Ray 05/01/24 20:44 IMPRESSION: 1. Mild atelectasis at right lung base. 2. Cardiomegaly. Abdomen/Pelvis CT 05/02/24 06:27 IMPRESSION: 1. Acute cholecystitis. Upper Quadrant Ultrasound 05/02/24 13:50 IMPRESSION: 1. Acute cholecystitis. Labs Labs: Laboratory Results - last 24 hr 05/03/24 05/03/24 05/04/24 11:53 17:11 00:42 WBC RBC Hgb Hct MCV MCH MCHC RDW Plt Count MPV Immature Gran % (Auto) Neut % (Auto) Lymph % (Auto) [place] % (Auto) Eos % (Auto) Baso % (Auto) Lymph # (Auto) [place] # (Auto) Eos # (Auto) Baso # (Auto) Abs Immat Gran (auto) Absolute Neuts (auto) Absolute Nucleated RBC Total Counted Neutrophils % (Manual) Band Neutrophils % Lymphocytes % (Manual) Monocytes % (Manual) Nucleated RBC % Abs Neuts (Manual) Abs Lymphs (Manual) Abs Monocytes (Manual) Platelet Estimate % Immature Plt Fraction Schistocytes Sodium Potassium Chloride Carbon Dioxide Anion Gap BUN Creatinine Estim Creat Clear Calc Estimated GFR Glucose POC Capillary Glucose 97 108 H Calcium Total Bilirubin AST ALT Alkaline Phosphatase Total Protein Albumin Urine Color Dark yellow Urine Appearance Clear Urine pH 5.5 Ur Specific [place] 1.040 H Urine Protein 1+ H Urine Glucose (UA) Negative Urine Ketones Trace H Ur Blood (Man) Negative Urine Nitrate Negative Urine Bilirubin 1+ H Urine Urobilinogen 1.0 Ur Leukocyte Esterase Trace H Urine RBC 0-2 Urine WBC 0-5 Ur Squamous Epith Cells None seen Urine Bacteria None seen Urine Casts 0-2 05/04/24 05/04/24 06:14 08:08 WBC 10.9 H RBC 3.77 L Hgb 11.4 L Hct 35.9 L MCV 95.2 MCH 30.2 MCHC 31.8 L RDW 13.6 Plt Count 126 L MPV 10.6 H Immature Gran % (Auto) Not Reportable Neut % (Auto) Not Reportable Lymph % (Auto) Not Reportable [place] % (Auto) Not Reportable Eos % (Auto) Not Reportable Baso % (Auto) Not Reportable Lymph # (Auto) Not Reportable [place] # (Auto) Not Reportable Eos # (Auto) Not Reportable Baso # (Auto) Not Reportable Abs Immat Gran (auto) Not Reportable Absolute Neuts (auto) Not Reportable Absolute Nucleated RBC Not Reportable Total Counted 100 Neutrophils % (Manual) 78 H Band Neutrophils % 6 Lymphocytes % (Manual) 10 L Monocytes % (Manual) 6 Nucleated RBC % Not Reportable Abs Neuts (Manual) 9.15 H Abs Lymphs (Manual) 1.09 L Abs Monocytes (Manual) 0.65 Platelet Estimate Slightly decreased % Immature Plt Fraction 4.7 Schistocytes None seen Sodium 134 L Potassium 3.3 L Chloride 101 Carbon Dioxide 27 Anion Gap 6 BUN 23 H Creatinine 0.77 Estim Creat Clear Calc 45 Estimated GFR > 60 Glucose 109 POC Capillary Glucose 128 H Calcium 8.3 L Total Bilirubin 1.4 H AST 15 ALT 14 Alkaline Phosphatase 61 Total Protein 6.0 L Albumin 2.9 L Urine Color Urine Appearance Urine pH Ur Specific [place] Urine Protein Urine Glucose (UA) Urine Ketones Ur Blood (Man) Urine Nitrate Urine Bilirubin Urine Urobilinogen Ur Leukocyte Esterase Urine RBC Urine WBC Ur Squamous Epith Cells Urine Bacteria Urine Casts
[2024-05-04] MEDS: SODIUM CHLORIDE 0.9% IV 1,000 ML 70 ML IV CONT (11:32)
[2024-05-04 12:02] LABS: Glucose Point of Care 141 mg/dl (65-105)
[2024-05-04] MEDS: dilTIAZem 100 MG/100 ML 100 MG/100 ML BAG IV CONT (13:01)
--- NOTE | 2024-05-04 16:24 | P.CONCA_ITS ---
Assessment and Plan Assessment and plan (1) Coronary artery disease: Code(s): I25.10 - Atherosclerotic heart disease of [place] coronary artery without angina pectoris Status: Acute (2) Atrial fibrillation: Code(s): I48.91 - Unspecified atrial fibrillation Status: Acute (3) Mixed hyperlipidemia: Code(s): E78.2 - Mixed hyperlipidemia Status: Acute Plan 84-year-old woman with CAD and hypertension presented with abdominal pain found to have acute cholecystitis being medically managed who also has stable angina and now also found to have atrial fibrillation with rapid ventricular rate Chest pain -troponin ruled out for acs -obtain transthoracic echocardiogram Paroxysmal atrial fibrillation with rapid ventricular rate -currently on heparin drip and diltiazem drip -start metoprolol tartrate 50 mg q.6 Hyperlipidemia -continue atorvastatin 40 mg every evening History of Present Illness History of Present Illness Consult date/time: 05/04/24 16:24 Requesting physician: Wilfred Mtz MD Consult reason: atrial fibrillation Reason For Visit: cholecystitis Narrative: 84-year-old woman with CAD and hypertension presented with abdominal pain found to have acute cholecystitis being medically managed. She lives with her daughter who was lead takes care of all her needs. She is able to ambulate with a walker within the confines of her home. She occasionally has chest discomfort for which she uses nitroglycerin about once a week. Otherwise there has been no noticeable shortness of breath or loss of consciousness. She is now found to be in atrial fibrillation with rapid ventricular rate and feels much more fatigued today. Review of Systems 2 Cardiovascular: Cardiovascular: Reports as per HPI Respiratory: Respiratory: Reports as per HPI 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 Patient of Dr. Bereket Olson. Arthritis Prediabetes Essential hypertension Gastroesophageal reflux disease Hypothyroidism Mixed hyperlipidemia Seasonal allergic rhinitis Vitamin B12 deficiency Vitamin D deficiency Surgical History Surgical History History of cardiac catheterization Results as above. History of colonoscopy with polypectomy History of appendectomy History of cataract extraction History of hysterectomy Family History Family History Father Lung cancer Sibling Breast cancer Social History Social History Social History: Surrogate medical decision maker: Jodi Lewis, daughter. Code status: Full code. Smoking status: Never smoker Second hand tobacco smoke exposure: No Alcohol intake: never Substance use: never Substance use type: does not use Do You Feel Safe in your Home?: Yes Lack of Transportation: No Lack of Food: Never True Current Housing: I Have Housing Concerned About Future Housing: No Difficulty Paying Gas/Electric Bills: No Difficulty Paying for Meds: No Currently Unemployed: No Education: High School Diploma/GED Difficulty w/ Childcare or Family Care: No Living arrangements: with family Additional living arrangements comments: The patient lives in [place] with her daughter Jodi. 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 Spiritual care concerns: No Agree to blood products: Yes Meds Home Medications and Allergies Home Medications ?Medication ?Instructions ?Recorded ?Confirmed ?Type ranolazine 500 mg tablet,extended 1,000 mg PO Q12H 05/02/20 05/02/24 History release,12 hr (Ranexa) cyanocobalamin (vitamin B-12) 2,500 mcg PO QAM #90 tabs 01/10/23 05/02/24 Rx 2,500 mcg tablet levothyroxine 25 mcg tablet 25 mcg PO DAILY #90 tabs 03/20/23 05/02/24 Rx losartan 100 mg tablet See Rx Instructions .Route 04/22/23 05/02/24 Rx .COMPLEX #90 tabs atorvastatin 40 mg tablet 40 mg PO DAILY #90 tabs 07/09/23 05/02/24 Rx omeprazole 20 mg capsule,delayed 40 mg (2 x 20 mg) PO DAILY #180 08/28/23 05/02/24 Rx release caps ondansetron HCl 4 mg tablet See Rx Instructions .Route 12/03/23 05/02/24 Rx .COMPLEX #40 ea amitriptyline 10 mg tablet 30 mg (3 x 10 mg) PO .HS #270 tabs 12/28/23 05/02/24 Rx hydrochlorothiazide 25 mg tablet 25 mg PO DAILY #90 tabs 02/20/24 05/02/24 Rx duoderm dressing #1 ea 04/27/24 05/02/24 Rx egg crate mattress for chair #1 ea 04/27/24 05/02/24 Rx nitroglycerin 0.4 mg sublingual 0.4 mg sublingual Q5M PRN chest 05/02/24 05/02/24 History tablet pain Allergies Allergy/AdvReac Type Severity Reaction Status Date / Time alendronate sodium Allergy Unknown Pt does Verified 05/02/24 05:23 remember levofloxacin Allergy Unknown Pt does Verified 05/02/24 05:23 not remember hydrocodone AdvReac Mild IF SHE Verified 05/02/24 05:23 TAKES 250 MG SHE IS OKAY, 500 MG SHE HAS NAUSEA AND V Vital Signs Vital Signs - 24 hr 05/03/24 20:00 05/03/24 21:29 05/04/24 06:00 Temperature 36.5 C 37.1 C Pulse Rate 56 L 96 Respiratory Rate 20 18 Blood Pressure 107/50 L 118/67 Pulse Oximetry 97 97 95 Oxygen Delivery Nasal Cannula Oxygen Flow Rate 2 05/04/24 08:00 05/04/24 09:18 05/04/24 13:01 Temperature Pulse Rate 150 H Respiratory Rate Blood Pressure 131/95 H Pulse Oximetry 98 96 Oxygen Delivery Nasal Cannula Nasal Cannula Oxygen Flow Rate 2 2 05/04/24 13:04 05/04/24 13:23 05/04/24 14:00 Temperature 36.8 C Pulse Rate 150 H 153 H 127 H Respiratory Rate 18 Blood Pressure 131/95 H 131/95 H 96/54 L Pulse Oximetry 99 Oxygen Delivery Oxygen Flow Rate 05/04/24 14:00 Temperature Pulse Rate Respiratory Rate Blood Pressure 96/54 L Pulse Oximetry Oxygen Delivery Oxygen Flow Rate Exam 2 Const: Other: Ill-appearing and fatigued HENMT: Mouth: Yes dry mucous membranes Eyes: EOM: EOMs intact bilaterally Neck: Neck: no JVD Resp: Effort & Inspection: normal respiratory effort Auscultation: clear to auscultation bilaterally Cardio: Rate: tachycardic Rhythm: abnormal rhythm Extrem: General: no pedal edema Results Labs and Meds 05/04/24 06:14 05/04/24 06:14 Lab results: Cardiac Enzymes 05/04/24 Range/Units 06:14 AST 15 (14-36) U/L CBC 05/04/24 Range/Units 06:14 WBC 10.9 H (4.5-10.0) K/mm3 RBC 3.77 L (4.2-5.4) M/mm3 Hgb 11.4 L (12.0-15.0) g/dL Hct 35.9 L (37.0-47.0) % Plt Count 126 L (150-375) k/mm3 Lymph # (Auto) Not Reportable [place] # (Auto) Not Reportable Eos # (Auto) Not Reportable Baso # (Auto) Not Reportable Comprehensive Metabolic Panel 05/04/24 Range/Units 06:14 Sodium 134 L (137-145) mmol/L Potassium 3.3 L (3.4-5.0) mmol/L Chloride 101 (98-107) mmol/L Carbon Dioxide 27 (22-30) mmol/L BUN 23 H (7-17) mg/dL Creatinine 0.77 (0.7-1.0) mg/dL Glucose 109 (65-110) mg/dL Calcium 8.3 L (8.4-10.2) mg/dL AST 15 (14-36) U/L ALT 14 (6-35) U/L Alkaline Phosphatase 61 (38-126) U/L Total Protein 6.0 L (6.3-8.2) g/dL Albumin 2.9 L (3.5-5.1) g/dL Intake and Output 05/04/24 05/04/24 05/04/24 07:59 15:59 23:59 Intake Total 250 1301.1 Output Total 650 Balance -400 1301.1 Intake: IV 50 1061.1 Sodium Chloride 0.9% IV 1,000 1000 ml @ 70 mls/hr IV CONT .[id number] MELISSA Rx#:[id number] dilTIAZem 100 MG/100 ML 100 mg 11.1 In 100 ml @ 15 MG/HR 15 mls/hr IV CONT .[id number] MELISSA Rx#: [id number] Piperacilln/Danyel 3.375GM/Ns50ml 50 50 3.375 gm In 50 ml @ 100 mls/hr IVPB Q6HR MELISSA Rx#:[id number] Oral 200 240 Output: Catheter Urine 650 External/Condom 650
[2024-05-04 16:39] LABS: Glucose Point of Care 150 mg/dl (65-105)
[2024-05-04 17:08] LABS: INR 1.3
[2024-05-04 17:10] LABS: Partial Thromboplastin Time 50.7 Seconds (22.3-36.8)
[2024-05-04] MEDS: HEPARIN SODIUM 5,000 UNITS/ML VIAL 5000 UNITS IV PUSH (17:11)
[2024-05-04] MEDS: METOPROLOL TARTRATE 50 MG TAB PO (17:12)
[2024-05-04] MEDS: RANOLAZINE 500 MG TAB.ER.12H 1000 MG PO (17:12)
[2024-05-04] MEDS: HEPARIN SOD/D5W 100 UNITS/ML 25,000 UNITS/250 ML BAG 11 UNITS IV CONT (17:20)
[2024-05-04] MEDS: dilTIAZem 100 MG/100 ML 100 MG/100 ML BAG 15 MG IV CONT (20:15)
[2024-05-04] MEDS: AMITRIPTYLINE HCL 10 MG TABLET 30 MG PO (20:16)
[2024-05-05] VITALS (26 sets, daily range): BP systolic 92–125; BP diastolic 39–69; PULSE 71–209; RESP 18–952; TEMP 36–37.8; O2SAT 92–100
--- NOTE | 2024-05-05 | ECHO_ITS ---
Patient Info Name: Maude Milton Age: 84 years : 1940 Gender: Female Ht: 63 in Wt: 174 lbs BSA: 1.90 m2 HR: 76 bpm BP: 94 / 52 mmHg Heart Rhythm: Atrial Fibrillation Technical Quality: Poor Exam Date: 05/05/2024 9:05 AM Exam Location: Echo Lab Patient Status: Inpatient Admit Date: 05/03/2024 Staff Ordering Physician: Wilfred Mtz MD Communications Project Lead: Ruthie Wilson RDCS Attending Provider: Inessa Tracey MD Exam Type: CA echo dop color flow w con Study Info Indications - AFIB Complete two-dimensional, color flow and Doppler transthoracic echocardiogram is performed with contrast to opacify the left ventricle and to improve the deliniation of the left ventricle endocardial borders. Contrast/Agitated Saline Contrast/Ag. Saline: Definity Amount: 2.00 ml Existing IV Access: Yes Reason for Poor Study: poor echocardiographic windows Summary 1. Left ventricular chamber dimension is normal. 2. Left ventricular systolic function is normal, estimated at 55-60%. 3. There is mildly increased left ventricular wall thickness. 4. Right ventricular systolic function is normal. 5. Left atrial chamber dimension is moderately enlarged. 6. There is mild tricuspid valve regurgitation. Left Ventricle Left ventricular chamber dimension is normal. Left ventricular systolic function is normal, estimated at 55-60%. There is mildly increased left ventricular wall thickness. The left ventricular diastolic function is indeterminate. Right Ventricle Right ventricular chamber dimension is normal. Right ventricular systolic function is normal. Left Atria Left atrial chamber dimension is moderately enlarged. Right Atria Right atrial chamber dimension is normal. Atrial Septum Intact interatrial septum visualized by color flow imaging. Aortic Valve The aortic valve is probable trileaflet. There is no aortic valve stenosis. There is no aortic valve regurgitation. There is mild aortic valve calcification. Pulmonic Valve The pulmonic valve is not well visualized. Mitral Valve The mitral valve has calcified leaflets. There is trace mitral valve regurgitation. The mitral valve annulus is mildly calcified. Tricuspid Valve There is mild tricuspid valve regurgitation. Pericardium/Pleural The pericardium appears epicardial fat pad. There is no pericardial effusion. Inferior Vena Cava Inferior vena cava is not well visualized. Aorta The aortic root size at the sinus of Valsalva is normal. Left Ventricular Outflow Tract Name Value Normal LVOT 2D LVOT Diameter 1.92 cm LVOT Doppler LVOT Peak Gradient 3 mmHg LVOT Mean Gradient 2 mmHg LVOT VTI 14.29 cm LVOT VTI/AV VTI Ratio 0.73 LVOT Stroke Volume 41.29 ml LVOT CO 5.39 l/min LVOT CI 2.84 L/min/m2 Pulmonic Valve Name Value Normal RVOT Doppler RVOT Peak Gradient 2 mmHg PV Doppler PV Peak Gradient 2 mmHg PV Regurgitation Doppler MT Peak End Diastolic Velocity 81.92 cm/s Mitral Valve Name Value Normal MV Doppler MV Decel [place] 588.06 cm/s2 MV PHT 0 s MV Area (PHT) 5.52 cm2 4.00-5.00 MV Diastolic Function MV E Peak Velocity 80.82 cm/s MV A Peak Velocity 40.33 cm/s MV E/A 2.00 MV Decel Time 0 s MV Annular TDI MV E/e' (Septal) 10.31 <=8.00 MV E/e' (Lateral) 9.70 <=8.00 MV E/e' (Average) 10.01 Tricuspid Valve Name Value Normal TV Regurgitation Doppler TR Peak Velocity 325.74 cm/s TR Peak Gradient 42 mmHg Aorta Name Value Normal Ascending Aorta Ao Root Diameter (MM) 3.43 cm Ao Root Diam Index (MM) 1.80 cm/m2 Aortic Valve Name Value Normal AV Doppler AV Peak Velocity 124.93 cm/s AV Peak Gradient 5 mmHg AV Mean Gradient 3 mmHg AV VTI 19.54 cm AV Area (Cont Eq VTI) 2.11 cm2 >=3.00 AV Area (Cont Eq Ruslan) 2.45 cm2 AV Regurgitation 2D LVOT Area 2.89 cm2 Ventricles Name Value Normal LV Dimensions 2D/MM IVS Diastolic Thickness (2D) 1.43 cm 0.60-1.00 LVID Diastole (2D) 3.33 cm 3.80-5.20 LVIW Diastolic Thickness (2D) 2.08 cm 0.60-0.90 LVID Systole (2D) 2.26 cm 2.20-3.50 LVOT Diameter 1.92 cm LV Mass (2D Cubed) 236.03 g 67.00-162.00 LV Mass Index (2D Cubed) 0.01 g/cm2 0.00-0.01 Relative Wall Thickness (2D) 1.25 LV Fractional Shortening/Ejection Fraction 2D/MM LV Fractional Shortening (2D) 31 % 27-45 LV EF (2D Teicholz) 60 % 54-74 LV Diastolic Volume (4C MOD) 67.31 ml LV EF (4C MOD) 44 % LV Diastolic Volume (2C MOD) 58.89 ml LV EF (2C MOD) 73 % LV Diastolic Volume (BP MOD) 64.41 ml 46.00-106.00 LV Diastolic Volume Index (BP MOD) 0.03 l/m2 0.03-0.06 LV Systolic Volume (BP MOD) 24.69 ml 14.00-42.00 LV Systolic Volume Index (BP MOD) 0.01 l/m2 0.01-0.02 LV EF (BP MOD) 62 % 54-74 LV Diastolic Length (4C) 6.24 cm LV Systolic Length (4C) 5.56 cm LV Stroke Volume (4C MOD) 29.79 ml Atria Name Value Normal LA Dimensions LA Dimension (MM) 4.20 cm 2.70-3.80 LA Volume (4C A-L) 52.39 ml LA Volume (BP A-L) 51.34 ml RA Dimensions RA Area (4C) 15.07 cm2 <=18.00 Report Signatures
[2024-05-05 00:47] LABS: Partial Thromboplastin Time 197.5 Seconds (22.3-36.8)
[2024-05-05] MEDS: PIPERACILLN/TAZ 3.375GM/NS50ML 3.375 GM/50 ML BAG IVPB ×4 (00:57→18:11)
[2024-05-05 02:20] LABS: Glucose Point of Care 144 mg/dl (65-105)
[2024-05-05] MEDS: RANOLAZINE 500 MG TAB.ER.12H 1000 MG PO (05:51)
[2024-05-05] MEDS: LEVOTHYROXINE SODIUM 25 MCG TABLET PO (05:52)
[2024-05-05 07:33] LABS: Glucose Point of Care 128 mg/dl (65-105)
[2024-05-05 08:38] LABS: Basophils Percent Auto 0.3 % (0.2-1.2); Eosinophils Percent Auto 0.4 % (0-4.4); Hemoglobin 10.6 g/dL (12.0-15.0); Immature Granulocyte Absolute 0.06 K/mm3 (0.00-0.031); Immature Granulocyte Percent A 0.6 % (0-0.5); Immature Platelet Fraction Pct 4.9 % (0.9-11.2); Lymphocytes Absolute Auto 0.77 K/mm3 (0.9-3.2); Lymphocytes Percent Auto 7.7 % (18.3-44.2); Mean Corpuscular HGB Conc 32.1 g/dl (32-36); Mean Corpuscular Hemoglobin 30.6 pg (26-34); Mean Corpuscular Volume 95.4 fl (80-100); Mean Platelet Volume 10.9 fl (7.4-10.4); Monocytes Absolute Auto 0.5 K/mm3 (0.1-0.6); Monocytes Percent Auto 5.1 % (2.6-8.5); Neutrophils Absolute Auto 8.5 K/mm3 (1.3-6.7); Neutrophils Percent Auto 85.9 % (45.5-73.1); Platelet Count Result 143 k/mm3 (150-375); Red Blood Count 3.46 M/mm3 (4.2-5.4); Red Cell Distribution Width 14.2 % (11.5-14.5)
[2024-05-05 08:48] LABS: Albumin Level 2.8 g/dL (3.5-5.1); Anion Gap 4 mmol/L (4-12); Blood Urea Nitrogen 29 mg/dL (7-17); Calcium 8.3 mg/dL (8.4-10.2); Carbon Dioxide 25 mmol/L (22-30); Chloride 104 mmol/L (98-107); Estimated CRCL calculation 39 ml/min; Estimated Glomerular Filt Rate 56; Glucose 116 mg/dL (65-110); Magnesium 1.7 mg/dL (1.6-2.3); Phosphorus 2.4 mg/dL (2.5-4.5); Potassium 4.1 mmol/L (3.4-5.0); Sodium 133 mmol/L (137-145)
[2024-05-05 08:51] LABS: Partial Thromboplastin Time 92.9 Seconds (22.3-36.8)
[2024-05-05] MEDS: PERFLUTREN LIPID MICROSPHERES 1.5 ML VIAL DILUTED TO 10 ML TOTAL VOLUME IV PUSH (09:50)
--- NOTE | 2024-05-05 10:16 | PC.NURSE ---
Pt drowsy and lethargic, having weakness. Extremity strength equal bilaterally. Face symmetrical. Speech is garbled. Called Dr. Mtz. CT head ordered stat. Stop heparin drip.
--- NOTE | 2024-05-05 10:20 | P.PNGS_ITS ---
Progress Note: A&P Assessment and Plan (1) Acute cholecystitis: Code(s): K81.0 - Acute cholecystitis Status: Acute Assessment and Plan: * WBC trended down to 10k today. Continue IV antibiotics. Tolerating a low fat diet. Continue conservative management for now, closely monitor. * Mental status changes and garbled speech this morning. CT brain pending. (2) Coronary artery disease: Code(s): I25.10 - Atherosclerotic heart disease of [place] coronary artery without angina pectoris Status: Acute Assessment and Plan: * Cardiology following. Echo ordered. (3) Atrial fibrillation: Code(s): I48.91 - Unspecified atrial fibrillation Status: Acute Assessment and Plan: * Transferred to IMU and on heparin and diltiazem infusion. Rate controlled today. Plan I have discussed the patient's case and plan of care with Dr. Mckenzie. Subjective Subjective Date/Time Seen: 05/05/24 10:20 Interval history: Patient moved to the IMU yesterday due to atrial fibrillation with RVR. This morning, she is seen with her daughter at the bedside again. The patient is lethargic this morning. Her daughter states she has not really spoke to her, but did wake up and eat a few apples with breakfast. She was able to chew and swallow without any issues. I was able to wake the patient and she made eye contact. She answered a few questions for me, but would quickly fall back asleep. She was able to tell me who her daughter was and was oriented to self and time, but not place. She denies any abdominal pain but was tender on exam. [place] [id number] this morning. She is now on heparin drip for the AFib. Exam Const: General: comfortable and tired appearing Orientation/consciousness: oriented to person, No oriented to place, oriented to time and lethargic Limitations: altered mental status HENMT: Head: normal to inspection Eyes: Pupils: Equal, round and reactive pupils present Cardio: Rate: regular rate Rhythm: abnormal rhythm irregularly irregular GI: Inspection: non-distended GI Palp: Yes Soft to palpation, Yes Tenderness to palpation present (GI) (diffusely tender today), Yes Guarding due to palpation present (GI) (RUQ) and No Rebound tenderness present Auscultation: normal bowel sounds Objective Data Vital Signs Vital Signs: Vital Signs - 24 hr 05/04/24 13:01 05/04/24 13:04 05/04/24 13:23 Temperature 98.2 F Pulse Rate 150 H 150 H 153 H Respiratory Rate 18 Blood Pressure 131/95 H 131/95 H 131/95 H Pulse Oximetry 99 Oxygen Delivery Oxygen Flow Rate 05/04/24 14:00 05/04/24 14:00 05/04/24 16:00 Temperature 98.7 F Pulse Rate 127 H 62 Respiratory Rate 20 Blood Pressure 96/54 L 96/54 L 100/48 L Pulse Oximetry 94 Oxygen Delivery Oxygen Flow Rate 05/04/24 16:00 05/04/24 16:00 05/04/24 17:12 Temperature Pulse Rate 118 H 118 H 108 H Respiratory Rate Blood Pressure 100/48 L Pulse Oximetry Oxygen Delivery Oxygen Flow Rate 05/04/24 18:00 05/04/24 18:00 05/04/24 18:00 Temperature Pulse Rate 114 H 114 H 120 H Respiratory Rate Blood Pressure 103/54 L 103/54 L Pulse Oximetry Oxygen Delivery Oxygen Flow Rate 05/04/24 19:56 05/04/24 20:00 05/04/24 20:00 Temperature Pulse Rate 88 87 Respiratory Rate Blood Pressure Pulse Oximetry 95 Oxygen Delivery Nasal Cannula Oxygen Flow Rate 2 05/04/24 20:15 05/04/24 20:34 05/04/24 21:54 Temperature 98.6 F Pulse Rate 88 79 Respiratory Rate 20 Blood Pressure 96/51 L 86/49 L Pulse Oximetry 97 Oxygen Delivery Oxygen Flow Rate 05/04/24 22:26 05/05/24 00:00 05/05/24 00:00 Temperature Pulse Rate 71 80 Respiratory Rate Blood Pressure Pulse Oximetry 95 Oxygen Delivery Nasal Cannula Oxygen Flow Rate 2 05/05/24 00:00 05/05/24 00:05 05/05/24 00:22 Temperature 98.6 F Pulse Rate 90 71 80 Respiratory Rate 20 Blood Pressure 94/54 L Pulse Oximetry 96 Oxygen Delivery Oxygen Flow Rate 05/05/24 01:37 05/05/24 02:00 05/05/24 04:00 Temperature Pulse Rate 83 90 74 Respiratory Rate Blood Pressure 109/44 L Pulse Oximetry Oxygen Delivery Oxygen Flow Rate 05/05/24 04:00 05/05/24 04:00 05/05/24 04:31 Temperature 97.7 F Pulse Rate 84 86 Respiratory Rate 20 Blood Pressure 97/39 L Pulse Oximetry 95 100 Oxygen Delivery Nasal Cannula Oxygen Flow Rate 2 05/05/24 04:41 05/05/24 05:42 05/05/24 06:00 Temperature Pulse Rate 82 76 89 Respiratory Rate Blood Pressure 94/52 L Pulse Oximetry Oxygen Delivery Oxygen Flow Rate 05/05/24 06:00 05/05/24 07:38 05/05/24 08:12 Temperature 96.8 F L Pulse Rate 89 209 H 90 Respiratory Rate 952 H 18 Blood Pressure 96/55 L Pulse Oximetry 95 Oxygen Delivery Oxygen Flow Rate 05/05/24 08:24 Temperature Pulse Rate Respiratory Rate Blood Pressure Pulse Oximetry 95 Oxygen Delivery Nasal Cannula Oxygen Flow Rate 2 Intake/Output Intake/Output: Intake & Output 05/02/24 05/03/24 05/04/24 05/05/24 23:59 23:59 23:59 23:59 Intake Total 2043.9 1536 2162.7 565.0 Output Total 475 650 200 Balance 2043.9 1061 1512.7 365.0 Meds/Results Medications: Active Medications Generic Name Dose Route Start Last Admin Trade Name Freq PRN Reason Stop Dose Admin Acetaminophen 650 mg 05/03/24 12:48 Acetaminophen 325 Mg Tablet PO Q6H PRN Mild Pain (1-5) Or Fever Hydrocodone Bitart/Acetaminophen 1 tab 05/03/24 12:48 05/04/24 20:16 Hydrocodone/Acetaminophen (*Crx) 5-325 Mg Tablet PO 1 tab Q6H PRN Administration Pain Rated 6 or Greater Amitriptyline HCl 30 mg 05/02/24 21:00 05/04/24 20:16 Amitriptyline Hcl 10 Mg Tablet PO 30 mg HS MELISSA Administration Atorvastatin Calcium 40 mg 05/03/24 09:00 05/05/24 10:13 Atorvastatin 40 Mg Tablet PO Not Given DAILY MELISSA Cyanocobalamin 2,500 mcg 05/03/24 09:00 05/05/24 10:13 Cyanocobalamin 500 Mcg Tablet PO Not Given QAM MELISSA Dextrose 12.5 gm 05/02/24 13:48 Dextrose 50% 25 Gm/50 Ml Syringe IV PUSH PRN PRN Hypoglycemia Protocol Glucagon 1 mg 05/02/24 13:48 Glucagon For Inj 1 Mg Vial IM PRN PRN Hypoglycemia Protocol Glucose 15 gm 05/02/24 13:48 Glucose Oral Gel 15 Gm Of Glucse In 37.5 Gm Tube PO PRN PRN Hypoglycemia Protocol Heparin Sodium (Porcine) 5,000 units 05/04/24 15:59 Heparin Sodium 5,000 Units/Ml Vial IV PUSH PRN PRN aPTT less than 55 seconds Heparin Sodium (Porcine) 2,500 units 05/04/24 15:59 Heparin Sodium 5,000 Units/Ml Vial IV PUSH PRN PRN aPTT 55 - 70 seconds Piperacillin/Tazobactam/Dextrose 3.375 gm in 50 mls @ 100 mls/hr 05/02/24 12:00 05/05/24 06:35 Zosyn 3.375 Gm/Ns 50 Ml IVPB Infused Q6HR MELISSA Infusion Dextrose 1,000 mls @ 100 mls/hr 05/02/24 13:48 Dextrose 5% 1,000 Ml IVPB PRN PRN Hypoglycemia Protocol Diltiazem HCl 100 mg in 100 mls @ 5 mls/hr 05/04/24 11:15 05/05/24 06:00 Cardizem 100 Mg/100 Ml IV CONT 5 mg/hr .Q20H MELISSA 5 mls/hr Infusion 5 MG/HR Heparin Sodium/Dextrose 25,000 units in 250 mls @ 0 mls/hr 05/04/24 16:00 05/05/24 10:11 Heparin Sodium/D5w 100 Units/Ml IV CONT 0 units/hr .Q0M MELISSA 0 mls/hr Titration Protocol Insulin Aspart 3 - 6 units 05/02/24 17:00 05/05/24 10:12 Insulin Aspart (*Bkc) 100 Units/Ml SUB-Q Not Given TIDWM [facility] Protocol Levothyroxine Sodium 25 mcg 05/03/24 06:30 05/05/24 05:52 Levothyroxine Sodium 25 Mcg Tablet PO 25 mcg DAILY@0630 [facility] Administration Metoprolol Tartrate 50 mg 05/04/24 18:00 05/05/24 04:41 Metoprolol Tartrate 50 Mg Tab PO Not Given Q6HR MELISSA Nitroglycerin 0.4 mg 05/02/24 13:50 Nitroglycerin Sl 0.4 Mg Tablet SUBLINGUAL Q5M PRN chest pain Ondansetron HCl 4 mg 05/02/24 03:45 Ondansetron Inj 4 Mg/2 Ml Vial IV PUSH Q4H PRN Nausea Pantoprazole Sodium 40 mg 05/03/24 09:00 05/05/24 10:13 Pantoprazole 40 Mg Tablet PO Not Given QAM MELISSA Perflutren Lipid Microsphere 0 ml 05/04/24 15:59 Perflutren Lipid Microspheres 1.5 Ml Vial Diluted To 10 Ml Total Volume IV PUSH 05/07/24 15:59 ONCE PRN adequate visualization Protocol Ranolazine 1,000 mg 05/04/24 18:00 05/05/24 05:51 Ranolazine 500 Mg Tab.Er.12h PO 1,000 mg Q12H MELISSA Administration Radiology Results: ITS Impressions Chest X-Ray 05/01/24 20:44 IMPRESSION: 1. Mild atelectasis at right lung base. 2. Cardiomegaly. Abdomen/Pelvis CT 05/02/24 06:27 IMPRESSION: 1. Acute cholecystitis. Upper Quadrant Ultrasound 05/02/24 13:50 IMPRESSION: 1. Acute cholecystitis. Labs Labs: Laboratory Results - last 24 hr 05/04/24 05/04/24 05/04/24 11:56 16:18 16:33 WBC RBC Hgb Hct MCV MCH MCHC RDW Plt Count MPV Immature Gran % (Auto) Neut % (Auto) Lymph % (Auto) [place] % (Auto) Eos % (Auto) Baso % (Auto) Lymph # (Auto) [place] # (Auto) Eos # (Auto) Baso # (Auto) Abs Immat Gran (auto) Absolute Neuts (auto) Absolute Nucleated RBC Nucleated RBC % % Immature Plt Fraction PT 17.0 H D INR 1.3 APTT 50.7 H Sodium Potassium Chloride Carbon Dioxide Anion Gap BUN Creatinine Estim Creat Clear Calc Estimated GFR Glucose POC Capillary Glucose 141 H 150 H Calcium Phosphorus Magnesium Albumin 05/04/24 05/05/24 05/05/24 21:28 00:12 07:11 WBC RBC Hgb Hct MCV MCH MCHC RDW Plt Count MPV Immature Gran % (Auto) Neut % (Auto) Lymph % (Auto) [place] % (Auto) Eos % (Auto) Baso % (Auto) Lymph # (Auto) [place] # (Auto) Eos # (Auto) Baso # (Auto) Abs Immat Gran (auto) Absolute Neuts (auto) Absolute Nucleated RBC Nucleated RBC % % Immature Plt Fraction PT INR APTT 197.5 H* Sodium Potassium Chloride Carbon Dioxide Anion Gap BUN Creatinine Estim Creat Clear Calc Estimated GFR Glucose POC Capillary Glucose 144 H 128 H Calcium Phosphorus Magnesium Albumin 05/05/24 05/05/24 08:22 08:23 WBC 10.0 RBC 3.46 L Hgb 10.6 L Hct 33.0 L MCV 95.4 MCH 30.6 MCHC 32.1 RDW 14.2 Plt Count 143 L MPV 10.9 H Immature Gran % (Auto) 0.6 H Neut % (Auto) 85.9 H Lymph % (Auto) 7.7 L [place] % (Auto) 5.1 Eos % (Auto) 0.4 Baso % (Auto) 0.3 Lymph # (Auto) 0.77 L [place] # (Auto) 0.5 Eos # (Auto) 0.0 Baso # (Auto) 0.0 Abs Immat Gran (auto) 0.06 H Absolute Neuts (auto) 8.5 H Absolute Nucleated RBC 0.000 Nucleated RBC % 0.0 % Immature Plt Fraction 4.9 PT INR APTT 92.9 H Sodium 133 L Potassium 4.1 Chloride 104 Carbon Dioxide 25 Anion Gap 4 BUN 29 H Creatinine 0.94 Estim Creat Clear Calc 39 Estimated GFR 56 L Glucose 116 H POC Capillary Glucose Calcium 8.3 L Phosphorus 2.4 L Magnesium 1.7 Albumin 2.8 L
--- NOTE | 2024-05-05 11:14 | P.PNCA_ITS ---
Progress Note: A&P Assessment and Plan (1) Coronary artery disease: Code(s): I25.10 - Atherosclerotic heart disease of [place] coronary artery without angina pectoris Status: Acute (2) Atrial fibrillation: Code(s): I48.91 - Unspecified atrial fibrillation Status: Acute (3) Mixed hyperlipidemia: Code(s): E78.2 - Mixed hyperlipidemia Status: Acute Plan 84-year-old woman with CAD and hypertension presented with abdominal pain found to have acute cholecystitis being medically managed who also has stable angina and now also found to have atrial fibrillation with rapid ventricular rate Chest pain -troponin ruled out for acs -TTE pending Paroxysmal atrial fibrillation with rapid ventricular rate -currently on heparin drip and diltiazem drip -heart rate well controlled, will discontinue diltiazem drip -Continue metoprolol 50mg q6h. Can titrate as needed. Hyperlipidemia -continue atorvastatin 40 mg every evening Subjective Date/time seen: 05/05/24 11:14 Interval history: Cardiology follow up visit She is not oriented this morning and speech is garbled. She does answer yes and no questions and indicates that she is not having chest pain or palpitations. Heart rate is controlled on telemetry. Review of Systems Cardiovascular: Cardiovascular: Reports as per HPI Respiratory: Respiratory: Reports as per HPI Exam Const: General: comfortable and alert Other: Ill-appearing and fatigued HENMT: Mouth: Yes dry mucous membranes Eyes: EOM: EOMs intact bilaterally Neck: Neck: no JVD Resp: Effort & Inspection: normal respiratory effort Auscultation: clear to auscultation bilaterally Cardio: Rate: regular rate Rhythm: abnormal rhythm irregularly irregular Extrem: Other: mild bilateral pretibial edema Psych: Mental Status: mental status grossly abnormal Objective Data Vital Signs Vital Signs: Vital Signs - 24 hr 05/04/24 13:01 05/04/24 13:04 05/04/24 13:23 Temperature 36.8 C Pulse Rate 150 H 150 H 153 H Respiratory Rate 18 Blood Pressure 131/95 H 131/95 H 131/95 H Pulse Oximetry 99 Oxygen Delivery Oxygen Flow Rate 05/04/24 14:00 05/04/24 14:00 05/04/24 16:00 Temperature 37.1 C Pulse Rate 127 H 62 Respiratory Rate 20 Blood Pressure 96/54 L 96/54 L 100/48 L Pulse Oximetry 94 Oxygen Delivery Oxygen Flow Rate 05/04/24 16:00 05/04/24 16:00 05/04/24 17:12 Temperature Pulse Rate 118 H 118 H 108 H Respiratory Rate Blood Pressure 100/48 L Pulse Oximetry Oxygen Delivery Oxygen Flow Rate 05/04/24 18:00 05/04/24 18:00 05/04/24 18:00 Temperature Pulse Rate 114 H 114 H 120 H Respiratory Rate Blood Pressure 103/54 L 103/54 L Pulse Oximetry Oxygen Delivery Oxygen Flow Rate 05/04/24 19:56 05/04/24 20:00 05/04/24 20:00 Temperature Pulse Rate 88 87 Respiratory Rate Blood Pressure Pulse Oximetry 95 Oxygen Delivery Nasal Cannula Oxygen Flow Rate 2 05/04/24 20:15 05/04/24 20:34 05/04/24 21:54 Temperature 37.0 C Pulse Rate 88 79 Respiratory Rate 20 Blood Pressure 96/51 L 86/49 L Pulse Oximetry 97 Oxygen Delivery Oxygen Flow Rate 05/04/24 22:26 05/05/24 00:00 05/05/24 00:00 Temperature Pulse Rate 71 80 Respiratory Rate Blood Pressure Pulse Oximetry 95 Oxygen Delivery Nasal Cannula Oxygen Flow Rate 2 05/05/24 00:00 05/05/24 00:05 05/05/24 00:22 Temperature 37.0 C Pulse Rate 90 71 80 Respiratory Rate 20 Blood Pressure 94/54 L Pulse Oximetry 96 Oxygen Delivery Oxygen Flow Rate 05/05/24 01:37 05/05/24 02:00 05/05/24 04:00 Temperature Pulse Rate 83 90 74 Respiratory Rate Blood Pressure 109/44 L Pulse Oximetry Oxygen Delivery Oxygen Flow Rate 05/05/24 04:00 05/05/24 04:00 05/05/24 04:31 Temperature 36.5 C Pulse Rate 84 86 Respiratory Rate 20 Blood Pressure 97/39 L Pulse Oximetry 95 100 Oxygen Delivery Nasal Cannula Oxygen Flow Rate 2 05/05/24 04:41 05/05/24 05:42 05/05/24 06:00 Temperature Pulse Rate 82 76 89 Respiratory Rate Blood Pressure 94/52 L Pulse Oximetry Oxygen Delivery Oxygen Flow Rate 05/05/24 06:00 05/05/24 07:38 05/05/24 08:12 Temperature 36.0 C L Pulse Rate 89 209 H 90 Respiratory Rate 952 H 18 Blood Pressure 96/55 L Pulse Oximetry 95 Oxygen Delivery Oxygen Flow Rate 05/05/24 08:24 Temperature Pulse Rate Respiratory Rate Blood Pressure Pulse Oximetry 95 Oxygen Delivery Nasal Cannula Oxygen Flow Rate 2 Intake/Output Intake/Output: Intake & Output 05/02/24 05/03/24 05/04/24 05/05/24 23:59 23:59 23:59 23:59 Intake Total 2043.9 1536 2162.7 565.0 Output Total 475 650 200 Balance 2043.9 1061 1512.7 365.0 Meds/Results Medications: Active Medications Generic Name Dose Route Start Last Admin Trade Name Freq PRN Reason Stop Dose Admin Acetaminophen 650 mg 05/03/24 12:48 Acetaminophen 325 Mg Tablet PO Q6H PRN Mild Pain (1-5) Or Fever Hydrocodone Bitart/Acetaminophen 1 tab 05/03/24 12:48 05/04/24 20:16 Hydrocodone/Acetaminophen (*Crx) 5-325 Mg Tablet PO 1 tab Q6H PRN Administration Pain Rated 6 or Greater Amitriptyline HCl 30 mg 05/02/24 21:00 05/04/24 20:16 Amitriptyline Hcl 10 Mg Tablet PO 30 mg HS MELISSA Administration Atorvastatin Calcium 40 mg 05/03/24 09:00 05/05/24 10:13 Atorvastatin 40 Mg Tablet PO Not Given DAILY MELISSA Cyanocobalamin 2,500 mcg 05/03/24 09:00 05/05/24 10:13 Cyanocobalamin 500 Mcg Tablet PO Not Given QAM MELISSA Dextrose 12.5 gm 05/02/24 13:48 Dextrose 50% 25 Gm/50 Ml Syringe IV PUSH PRN PRN Hypoglycemia Protocol Glucagon 1 mg 05/02/24 13:48 Glucagon For Inj 1 Mg Vial IM PRN PRN Hypoglycemia Protocol Glucose 15 gm 05/02/24 13:48 Glucose Oral Gel 15 Gm Of Glucse In 37.5 Gm Tube PO PRN PRN Hypoglycemia Protocol Heparin Sodium (Porcine) 5,000 units 05/04/24 15:59 Heparin Sodium 5,000 Units/Ml Vial IV PUSH PRN PRN aPTT less than 55 seconds Heparin Sodium (Porcine) 2,500 units 05/04/24 15:59 Heparin Sodium 5,000 Units/Ml Vial IV PUSH PRN PRN aPTT 55 - 70 seconds Piperacillin/Tazobactam/Dextrose 3.375 gm in 50 mls @ 100 mls/hr 05/02/24 12:00 05/05/24 06:35 Zosyn 3.375 Gm/Ns 50 Ml IVPB Infused Q6HR MELISSA Infusion Dextrose 1,000 mls @ 100 mls/hr 05/02/24 13:48 Dextrose 5% 1,000 Ml IVPB PRN PRN Hypoglycemia Protocol Diltiazem HCl 100 mg in 100 mls @ 5 mls/hr 05/04/24 11:15 05/05/24 06:00 Cardizem 100 Mg/100 Ml IV CONT 5 mg/hr .Q20H MELISSA 5 mls/hr Infusion 5 MG/HR Heparin Sodium/Dextrose 25,000 units in 250 mls @ 0 mls/hr 05/04/24 16:00 05/05/24 10:11 Heparin Sodium/D5w 100 Units/Ml IV CONT 0 units/hr .Q0M MELISSA 0 mls/hr Titration Protocol Insulin Aspart 3 - 6 units 05/02/24 17:00 05/05/24 10:12 Insulin Aspart (*Bkc) 100 Units/Ml SUB-Q Not Given TIDWM [facility] Protocol Levothyroxine Sodium 25 mcg 05/03/24 06:30 05/05/24 05:52 Levothyroxine Sodium 25 Mcg Tablet PO 25 mcg DAILY@0630 [facility] Administration Metoprolol Tartrate 50 mg 05/04/24 18:00 05/05/24 04:41 Metoprolol Tartrate 50 Mg Tab PO Not Given Q6HR MELISSA Nitroglycerin 0.4 mg 05/02/24 13:50 Nitroglycerin Sl 0.4 Mg Tablet SUBLINGUAL Q5M PRN chest pain Ondansetron HCl 4 mg 05/02/24 03:45 Ondansetron Inj 4 Mg/2 Ml Vial IV PUSH Q4H PRN Nausea Pantoprazole Sodium 40 mg 05/03/24 09:00 05/05/24 10:13 Pantoprazole 40 Mg Tablet PO Not Given QAM MELISSA Perflutren Lipid Microsphere 0 ml 05/04/24 15:59 Perflutren Lipid Microspheres 1.5 Ml Vial Diluted To 10 Ml Total Volume IV PUSH 05/07/24 15:59 ONCE PRN adequate visualization Protocol Ranolazine 1,000 mg 05/04/24 18:00 05/05/24 05:51 Ranolazine 500 Mg Tab.Er.12h PO 1,000 mg Q12H MELISSA Administration Radiology Results: ITS Impressions Chest X-Ray 05/01/24 20:44 IMPRESSION: 1. Mild atelectasis at right lung base. 2. Cardiomegaly. Abdomen/Pelvis CT 05/02/24 06:27 IMPRESSION: 1. Acute cholecystitis. Upper Quadrant Ultrasound 05/02/24 13:50 IMPRESSION: 1. Acute cholecystitis. Head CT 05/05/24 10:51 IMPRESSION: 1. Stable moderate nonspecific cerebral white matter disease, which likely represents chronic small vessel ischemic disease. Labs Labs: Laboratory Results - last 24 hr 05/04/24 05/04/24 05/04/24 11:56 16:18 16:33 WBC RBC Hgb Hct MCV MCH MCHC RDW Plt Count MPV Immature Gran % (Auto) Neut % (Auto) Lymph % (Auto) [place] % (Auto) Eos % (Auto) Baso % (Auto) Lymph # (Auto) [place] # (Auto) Eos # (Auto) Baso # (Auto) Abs Immat Gran (auto) Absolute Neuts (auto) Absolute Nucleated RBC Nucleated RBC % % Immature Plt Fraction PT 17.0 H D INR 1.3 APTT 50.7 H Sodium Potassium Chloride Carbon Dioxide Anion Gap BUN Creatinine Estim Creat Clear Calc Estimated GFR Glucose POC Capillary Glucose 141 H 150 H Calcium Phosphorus Magnesium Albumin 05/04/24 05/05/24 05/05/24 21:28 00:12 07:11 WBC RBC Hgb Hct MCV MCH MCHC RDW Plt Count MPV Immature Gran % (Auto) Neut % (Auto) Lymph % (Auto) [place] % (Auto) Eos % (Auto) Baso % (Auto) Lymph # (Auto) [place] # (Auto) Eos # (Auto) Baso # (Auto) Abs Immat Gran (auto) Absolute Neuts (auto) Absolute Nucleated RBC Nucleated RBC % % Immature Plt Fraction PT INR APTT 197.5 H* Sodium Potassium Chloride Carbon Dioxide Anion Gap BUN Creatinine Estim Creat Clear Calc Estimated GFR Glucose POC Capillary Glucose 144 H 128 H Calcium Phosphorus Magnesium Albumin 05/05/24 05/05/24 08:22 08:23 WBC 10.0 RBC 3.46 L Hgb 10.6 L Hct 33.0 L MCV 95.4 MCH 30.6 MCHC 32.1 RDW 14.2 Plt Count 143 L MPV 10.9 H Immature Gran % (Auto) 0.6 H Neut % (Auto) 85.9 H Lymph % (Auto) 7.7 L [place] % (Auto) 5.1 Eos % (Auto) 0.4 Baso % (Auto) 0.3 Lymph # (Auto) 0.77 L [place] # (Auto) 0.5 Eos # (Auto) 0.0 Baso # (Auto) 0.0 Abs Immat Gran (auto) 0.06 H Absolute Neuts (auto) 8.5 H Absolute Nucleated RBC 0.000 Nucleated RBC % 0.0 % Immature Plt Fraction 4.9 PT INR APTT 92.9 H Sodium 133 L Potassium 4.1 Chloride 104 Carbon Dioxide 25 Anion Gap 4 BUN 29 H Creatinine 0.94 Estim Creat Clear Calc 39 Estimated GFR 56 L Glucose 116 H POC Capillary Glucose Calcium 8.3 L Phosphorus 2.4 L Magnesium 1.7 Albumin 2.8 L
[2024-05-05 11:23] LABS: Glucose Point of Care 133 mg/dl (65-105)
--- NOTE | 2024-05-05 13:09 | IVDEFINITY ---
Prior to administration of IV Definity the patient was educated on the risks and benefits of the imaging enhancing agent including potential adverse side effects. The patient verbalized understanding. Allergies were verified. No exclusion criteria were identified and at least one of the following inclusion criteria were met: 1) physician request, 2) patient technically difficult to image (per the [place] [employer] of Echocardiography guidelines of two or more segments not discernable within the apical view), or 3) questionable left ventricular function. ?
[2024-05-05 13:51] LABS: Procalcitonin 3.4 ng/mL
--- NOTE | 2024-05-05 14:11 | PM.IMPN ---
Progress Note: A&P Assessment and Plan (1) Altered mental status: Code(s): R41.82 - Altered mental status, unspecified Status: Acute Assessment and Plan: Patient with AMS this morning. She was more somnolent. Concern for CVA given recent AFib and on heparin. Heparin drip stopped. Stat CT brain showing no bleed or acute findings. CTA head/neck showing no acute findings. WBC trending down but now having fevers and PCT 3.[address] Ch/A/P showing worsening acute cholecystitis. Discussed with GenSurg. Plan for cholecystostomy tube placement. NPO. (2) Atrial fibrillation: Code(s): I48.91 - Unspecified atrial fibrillation Status: Acute Assessment and Plan: Patient noted to have tachycardia and irregular rhythm. EKG (05/04) now showing AFib/RVR (HR 150), LAFB and borderline ST-T wave changes in the high lateral leads. Patient was moved to IMU and Diltiazem drip started. Probably related to current GB infection/inflammation. [id number] at least 6. TSH normal on 04/23/24. Echo showing EF 55-60%, indeterminate diastolic fxn and mild MR Started Heparin drip but held related to above. Cards consult. Holding Cozaar given soft BP. Metoprolol added HR better controlled. Continue IV Diltiazem until her clinical picture improves. (3) Acute cholecystitis: Code(s): K81.0 - Acute cholecystitis Status: Acute Assessment and Plan: Patient presents with abdominal pain. CT scan showing distended GB with gallstones, wall thickening and surrounding fat stranding consistent with acute cholecystitis. RUQ US showing similar findings. Patient started on Zosyn. Started on clear liquid diet. General surgery consulted. Appreciate their input. Patient high risk with plan currently to treat conservatively. WBC better today but other inflammatory markers elevated. Continue IV abx. Plan for cholecystostomy tube placement. Continue supportive care. (4) Essential hypertension: Code(s): I10 - Essential (primary) hypertension Status: Acute Assessment and Plan: Patient's blood pressure was reviewed on 05/05 Blood pressure soft at times Continue current medications. (5) Coronary artery disease: Code(s): I25.10 - Atherosclerotic heart disease of [place] coronary artery without angina pectoris Status: Acute Assessment and Plan: Patient with coronary disease. Continue Lipitor. She is not on metoprolol or aspirin. Renexa was on hold but resumed since no surgery planned. QTc okay. (6) Prediabetes: Code(s): R73.03 - Prediabetes Status: Acute Assessment and Plan: The patient's blood glucose was reviewed on 05/05 Glucose remains well controlled. Continue AccuCheks covering with sliding scale. Hypoglycemia protocol available as needed. Continue to follow Plan Urine retention - Alvarez placed. UOP better. Holding IV fluids. Voiding trial when more ambulatory. DVT prophylaxis - SCDs, Heparin Code status - full Subjective Date/time seen: 05/05/24 14:11 Interval history: 84yo female with CAD, HTN and pre-DM here for abdominal pain. More confused and somnolent today. She is unable to provide hx. Exam Narrative: Tm 100 107/59 95 28 92% 2L Gen - NARD Chest - left base crackles and decreased BS in the right base o/w clear. CV - irregular. Tele showing AFib with improved rate Abd - Soft, diffuse abdominal pain without guarding or rebound Ext - No pedal edema Neuro - somnolent, follows commands. weak but no focal weakness. Skin - Warm and dry Objective Data Vital Signs Vital Signs: Vital Signs - 24 hr 05/04/24 16:00 05/04/24 16:00 05/04/24 16:00 Temperature 98.7 F Pulse Rate 62 118 H 118 H Respiratory Rate 20 Blood Pressure 100/48 L 100/48 L Pulse Oximetry 94 Oxygen Delivery Oxygen Flow Rate 05/04/24 17:12 05/04/24 18:00 05/04/24 18:00 Temperature Pulse Rate 108 H 114 H 114 H Respiratory Rate Blood Pressure 103/54 L 103/54 L Pulse Oximetry Oxygen Delivery Oxygen Flow Rate 05/04/24 18:00 05/04/24 19:56 05/04/24 20:00 Temperature Pulse Rate 120 H 88 Respiratory Rate Blood Pressure Pulse Oximetry 95 Oxygen Delivery Nasal Cannula Oxygen Flow Rate 2 05/04/24 20:00 05/04/24 20:15 05/04/24 20:34 Temperature 98.6 F Pulse Rate 87 88 79 Respiratory Rate 20 Blood Pressure 96/51 L Pulse Oximetry 97 Oxygen Delivery Oxygen Flow Rate 05/04/24 21:54 05/04/24 22:26 05/05/24 00:00 Temperature Pulse Rate 71 Respiratory Rate Blood Pressure 86/49 L Pulse Oximetry 95 Oxygen Delivery Nasal Cannula Oxygen Flow Rate 2 05/05/24 00:00 05/05/24 00:00 05/05/24 00:05 Temperature 98.6 F Pulse Rate 80 90 71 Respiratory Rate 20 Blood Pressure 94/54 L Pulse Oximetry 96 Oxygen Delivery Oxygen Flow Rate 05/05/24 00:22 05/05/24 01:37 05/05/24 02:00 Temperature Pulse Rate 80 83 90 Respiratory Rate Blood Pressure 109/44 L Pulse Oximetry Oxygen Delivery Oxygen Flow Rate 05/05/24 04:00 05/05/24 04:00 05/05/24 04:00 Temperature Pulse Rate 74 84 Respiratory Rate Blood Pressure Pulse Oximetry 95 Oxygen Delivery Nasal Cannula Oxygen Flow Rate 2 05/05/24 04:31 05/05/24 04:41 05/05/24 05:42 Temperature 97.7 F Pulse Rate 86 82 76 Respiratory Rate 20 Blood Pressure 97/39 L 94/52 L Pulse Oximetry 100 Oxygen Delivery Oxygen Flow Rate 05/05/24 06:00 05/05/24 06:00 05/05/24 07:38 Temperature 96.8 F L Pulse Rate 89 89 209 H Respiratory Rate 952 H Blood Pressure 96/55 L Pulse Oximetry 95 Oxygen Delivery Oxygen Flow Rate 05/05/24 08:12 05/05/24 08:24 05/05/24 12:00 Temperature 100.0 F H Pulse Rate 90 95 Respiratory Rate 18 28 H Blood Pressure 107/59 L Pulse Oximetry 95 92 Oxygen Delivery Nasal Cannula Oxygen Flow Rate 2 Intake/Output Intake/Output: Intake & Output 05/02/24 05/03/24 05/04/24 05/05/24 23:59 23:59 23:59 23:59 Intake Total 2043.9 1536 2162.7 565.0 Output Total 475 650 200 Balance 2043.9 1061 1512.7 365.0 Meds/Results Medications: Active Medications Generic Name Dose Route Start Last Admin Trade Name Freq PRN Reason Stop Dose Admin Acetaminophen 650 mg 05/03/24 12:48 Acetaminophen 325 Mg Tablet PO Q6H PRN Mild Pain (1-5) Or Fever Hydrocodone Bitart/Acetaminophen 1 tab 05/03/24 12:48 05/04/24 20:16 Hydrocodone/Acetaminophen (*Crx) 5-325 Mg Tablet PO 1 tab Q6H PRN Administration Pain Rated 6 or Greater Amitriptyline HCl 30 mg 05/02/24 21:00 05/04/24 20:16 Amitriptyline Hcl 10 Mg Tablet PO 30 mg HS MELISSA Administration Atorvastatin Calcium 40 mg 05/03/24 09:00 05/05/24 10:13 Atorvastatin 40 Mg Tablet PO Not Given DAILY MELISSA Cyanocobalamin 2,500 mcg 05/03/24 09:00 05/05/24 10:13 Cyanocobalamin 500 Mcg Tablet PO Not Given QAM MELISSA Dextrose 12.5 gm 05/02/24 13:48 Dextrose 50% 25 Gm/50 Ml Syringe IV PUSH PRN PRN Hypoglycemia Protocol Glucagon 1 mg 05/02/24 13:48 Glucagon For Inj 1 Mg Vial IM PRN PRN Hypoglycemia Protocol Glucose 15 gm 05/02/24 13:48 Glucose Oral Gel 15 Gm Of Glucse In 37.5 Gm Tube PO PRN PRN Hypoglycemia Protocol Heparin Sodium (Porcine) 5,000 units 05/04/24 15:59 Heparin Sodium 5,000 Units/Ml Vial IV PUSH PRN PRN aPTT less than 55 seconds Heparin Sodium (Porcine) 2,500 units 05/04/24 15:59 Heparin Sodium 5,000 Units/Ml Vial IV PUSH PRN PRN aPTT 55 - 70 seconds Piperacillin/Tazobactam/Dextrose 3.375 gm in 50 mls @ 100 mls/hr 05/02/24 12:00 05/05/24 06:35 Zosyn 3.375 Gm/Ns 50 Ml IVPB Infused Q6HR MELISSA Infusion Dextrose 1,000 mls @ 100 mls/hr 05/02/24 13:48 Dextrose 5% 1,000 Ml IVPB PRN PRN Hypoglycemia Protocol Heparin Sodium/Dextrose 25,000 units in 250 mls @ 0 mls/hr 05/04/24 16:00 05/05/24 10:11 Heparin Sodium/D5w 100 Units/Ml IV CONT 0 units/hr .Q0M MELISSA 0 mls/hr Titration Protocol Insulin Aspart 3 - 6 units 05/02/24 17:00 05/05/24 10:12 Insulin Aspart (*Bkc) 100 Units/Ml SUB-Q Not Given TIDWM [facility] Protocol Levothyroxine Sodium 25 mcg 05/03/24 06:30 05/05/24 05:52 Levothyroxine Sodium 25 Mcg Tablet PO 25 mcg DAILY@0630 [facility] Administration Metoprolol Tartrate 50 mg 05/04/24 18:00 05/05/24 04:41 Metoprolol Tartrate 50 Mg Tab PO Not Given Q6HR MELISSA Nitroglycerin 0.4 mg 05/02/24 13:50 Nitroglycerin Sl 0.4 Mg Tablet SUBLINGUAL Q5M PRN chest pain Ondansetron HCl 4 mg 05/02/24 03:45 Ondansetron Inj 4 Mg/2 Ml Vial IV PUSH Q4H PRN Nausea Pantoprazole Sodium 40 mg 05/03/24 09:00 05/05/24 10:13 Pantoprazole 40 Mg Tablet PO Not Given QAM [facility] Ranolazine 1,000 mg 05/04/24 18:00 05/05/24 05:51 Ranolazine 500 Mg Tab.Er.12h PO 1,000 mg Q12H [facility] Administration Radiology Results: ITS Impressions Chest X-Ray 05/01/24 20:44 IMPRESSION: 1. Mild atelectasis at right lung base. 2. Cardiomegaly. Abdomen/Pelvis CT 05/02/24 06:27 IMPRESSION: 1. Acute cholecystitis. Upper Quadrant Ultrasound 05/02/24 13:50 IMPRESSION: 1. Acute cholecystitis. Head CT 05/05/24 10:51 IMPRESSION: 1. Stable moderate nonspecific cerebral white matter disease, which likely represents chronic small vessel ischemic disease. Head/Neck CTA 05/05/24 12:19 IMPRESSION: 1. Moderate nonspecific cerebral white matter disease, which likely represents chronic small vessel ischemic disease. 2. No aneurysm or significant intracranial arterial stenosis. 3. 0% stenosis of the proximal internal carotid arteries relative to normal distal artery lumen diameters (NASCET criteria). Labs Labs: Laboratory Results - last 24 hr 05/04/24 05/04/24 05/04/24 16:18 16:33 21:28 WBC RBC Hgb Hct MCV MCH MCHC RDW Plt Count MPV Immature Gran % (Auto) Neut % (Auto) Lymph % (Auto) [place] % (Auto) Eos % (Auto) Baso % (Auto) Lymph # (Auto) [place] # (Auto) Eos # (Auto) Baso # (Auto) Abs Immat Gran (auto) Absolute Neuts (auto) Absolute Nucleated RBC Nucleated RBC % % Immature Plt Fraction PT 17.0 H D INR 1.3 APTT 50.7 H Sodium Potassium Chloride Carbon Dioxide Anion Gap BUN Creatinine Estim Creat Clear Calc Estimated GFR Glucose POC Capillary Glucose 150 H 144 H Calcium Phosphorus Magnesium Albumin Procalcitonin 05/05/24 05/05/24 05/05/24 00:12 07:11 08:13 WBC RBC Hgb Hct MCV MCH MCHC RDW Plt Count MPV Immature Gran % (Auto) Neut % (Auto) Lymph % (Auto) [place] % (Auto) Eos % (Auto) Baso % (Auto) Lymph # (Auto) [place] # (Auto) Eos # (Auto) Baso # (Auto) Abs Immat Gran (auto) Absolute Neuts (auto) Absolute Nucleated RBC Nucleated RBC % % Immature Plt Fraction PT INR APTT 197.5 H* Sodium Potassium Chloride Carbon Dioxide Anion Gap BUN Creatinine Estim Creat Clear Calc Estimated GFR Glucose POC Capillary Glucose 128 H Calcium Phosphorus Magnesium Albumin Procalcitonin 3.4 05/05/24 05/05/24 05/05/24 08:22 08:23 11:20 WBC 10.0 RBC 3.46 L Hgb 10.6 L Hct 33.0 L MCV 95.4 MCH 30.6 MCHC 32.1 RDW 14.2 Plt Count 143 L MPV 10.9 H Immature Gran % (Auto) 0.6 H Neut % (Auto) 85.9 H Lymph % (Auto) 7.7 L [place] % (Auto) 5.1 Eos % (Auto) 0.4 Baso % (Auto) 0.3 Lymph # (Auto) 0.77 L [place] # (Auto) 0.5 Eos # (Auto) 0.0 Baso # (Auto) 0.0 Abs Immat Gran (auto) 0.06 H Absolute Neuts (auto) 8.5 H Absolute Nucleated RBC 0.000 Nucleated RBC % 0.0 % Immature Plt Fraction 4.9 PT INR APTT 92.9 H Sodium 133 L Potassium 4.1 Chloride 104 Carbon Dioxide 25 Anion Gap 4 BUN 29 H Creatinine 0.94 Estim Creat Clear Calc 39 Estimated GFR 56 L Glucose 116 H POC Capillary Glucose 133 H Calcium 8.3 L Phosphorus 2.4 L Magnesium 1.7 Albumin 2.8 L Procalcitonin
[2024-05-05 14:58] LABS: CRP 27.5 mg/dL (<1.0)
[2024-05-05 16:45] LABS: Glucose Point of Care 117 mg/dl (65-105)
[2024-05-05] MEDS: AMITRIPTYLINE HCL 10 MG TABLET 30 MG PO (20:21)
[2024-05-05 20:52] LABS: Glucose Point of Care 126 mg/dl (65-105)
[2024-05-06] VITALS (28 sets, daily range): BP systolic 101–138; BP diastolic 44–66; PULSE 70–118; RESP 18–24; TEMP 36.3–37; O2SAT 91–100
[2024-05-06] MEDS: PIPERACILLN/TAZ 3.375GM/NS50ML 3.375 GM/50 ML BAG IVPB ×5 (01:18→23:45)
[2024-05-06 05:36] LABS: Basophils Percent Auto 0.4 % (0.2-1.2); Eosinophils Percent Auto 0.2 % (0-4.4); Hematocrit 31.6 % (37.0-47.0); Hemoglobin 10.4 g/dL (12.0-15.0); Immature Granulocyte Absolute 0.16 K/mm3 (0.00-0.031); Immature Granulocyte Percent A 1.5 % (0-0.5); Lymphocytes Absolute Auto 0.73 K/mm3 (0.9-3.2); Mean Corpuscular HGB Conc 32.9 g/dl (32-36); Mean Corpuscular Hemoglobin 30.6 pg (26-34); Mean Corpuscular Volume 92.9 fl (80-100); Mean Platelet Volume 10.6 fl (7.4-10.4); Monocytes Absolute Auto 0.9 K/mm3 (0.1-0.6); Monocytes Percent Auto 8.4 % (2.6-8.5); Neutrophils Absolute Auto 8.6 K/mm3 (1.3-6.7); Neutrophils Percent Auto 82.5 % (45.5-73.1); Platelet Count Result 133 k/mm3 (150-375); Red Cell Distribution Width 14.5 % (11.5-14.5); White Blood Count 10.4 K/mm3 (4.5-10.0)
[2024-05-06 05:46] LABS: Alanine Aminotransferase 13 U/L (6-35); Albumin Level 2.6 g/dL (3.5-5.1); Alkaline Phosphatase 79 U/L (38-126); Anion Gap 8 mmol/L (4-12); Aspartate Amino Transferase 17 U/L (14-36); Bilirubin,Total 0.7 mg/dL (0.2-1.3); Blood Urea Nitrogen 24 mg/dL (7-17); Calcium 8.6 mg/dL (8.4-10.2); Carbon Dioxide 23 mmol/L (22-30); Chloride 104 mmol/L (98-107); Estimated CRCL calculation 46 ml/min; Estimated Glomerular Filt Rate > 60; Glucose 108 mg/dL (65-110); Magnesium 1.8 mg/dL (1.6-2.3); Phosphorus 3.4 mg/dL (2.5-4.5); Potassium 3.9 mmol/L (3.4-5.0); Sodium 135 mmol/L (137-145)
[2024-05-06] MEDS: METOPROLOL TARTRATE 50 MG TAB PO ×4 (06:27→23:45)
[2024-05-06] MEDS: LEVOTHYROXINE SODIUM 25 MCG TABLET PO (06:28)
[2024-05-06] MEDS: RANOLAZINE 500 MG TAB.ER.12H 1000 MG PO ×2 (06:28→18:10)
[2024-05-06 08:05] LABS: Glucose Point of Care 112 mg/dl (65-105)
--- NOTE | 2024-05-06 08:41 | PM.IMPN ---
Progress Note: A&P Assessment and Plan (1) Altered mental status: Code(s): R41.82 - Altered mental status, unspecified Status: Acute Assessment and Plan: Patient with AMS 05/05/2024. Concern for CVA given recent AFib and on heparin. Heparin drip stopped. Stat CT brain showing no bleed or acute findings. CTA head/neck showing no acute findings. WBC trending down but now having fevers and PCT 3.[address] Ch/A/P showing worsening acute cholecystitis. Discussed with GenSurg. Plan for cholecystostomy tube placement which is scheduled for this a.m.. NPO. (2) Atrial fibrillation: Code(s): I48.91 - Unspecified atrial fibrillation Status: Acute Assessment and Plan: Patient noted to have tachycardia and irregular rhythm. EKG (05/04) now showing AFib/RVR (HR 150), LAFB and borderline ST-T wave changes in the high lateral leads. Patient was moved to IMU and Diltiazem drip started. She remains on diltiazem drip Probably related to current GB infection/inflammation. [id number] at least 6. TSH normal on 04/23/24. Echo showing EF 55-60%, indeterminate diastolic fxn and mild MR Started Heparin drip but held related to above. Cards consult. Holding Cozaar given soft BP. Metoprolol added HR better controlled. Continue IV Diltiazem until her clinical picture improves. (3) Acute cholecystitis: Code(s): K81.0 - Acute cholecystitis Status: Acute Assessment and Plan: Patient presents with abdominal pain. CT scan showing distended GB with gallstones, wall thickening and surrounding fat stranding consistent with acute cholecystitis. RUQ US showing similar findings. Patient started on Zosyn. Started on clear liquid diet. General surgery consulted. Appreciate their input. Patient high risk with plan currently to treat conservatively. WBC better today but other inflammatory markers elevated. Continue IV abx. Plan for cholecystostomy tube placement which is scheduled for this a.m.. Continue supportive care. (4) Essential hypertension: Code(s): I10 - Essential (primary) hypertension Status: Acute Assessment and Plan: Blood pressure soft at times Continue current medications. (5) Coronary artery disease: Code(s): I25.10 - Atherosclerotic heart disease of [place] coronary artery without angina pectoris Status: Acute Assessment and Plan: Patient with coronary disease. Continue Lipitor. She is not on metoprolol or aspirin. Renexa was on hold but resumed since no surgery planned. QTc okay. (6) Prediabetes: Code(s): R73.03 - Prediabetes Status: Acute Assessment and Plan: Glucose remains well controlled. Continue AccuCheks covering with sliding scale. Hypoglycemia protocol available as needed. Continue to follow Plan Urine retention - Alvarez placed. UOP better. Holding IV fluids. Voiding trial when more ambulatory. DVT prophylaxis - SCDs, Heparin Code status - full Subjective Date/time seen: 05/06/24 08:41 Interval history: Feels overall okay. Denies any abdominal pain. She does reports he had discomfort on the right belly. No nausea vomiting. Mild fever yesterday afternoon. Patient remains confused Review of Systems Review of Systems: All systems reviewed & are unremarkable except as noted in HPI and below Exam Narrative: Gen - NARD Chest - left base crackles and decreased BS in the right base o/w clear. CV - irregular. Tele showing AFib with improved rate Abd - Soft, distended nontender no guarding or rebound Ext - No pedal edema Neuro -awake and alert, follows commands. Generalized weakness Skin - Warm and dry Objective Data Vital Signs Vital Signs: Vital Signs - 24 hr 05/05/24 10:00 05/05/24 12:00 05/05/24 12:00 Temperature 100.0 F H Pulse Rate 114 H 95 109 H Respiratory Rate 28 H Blood Pressure 107/59 L Pulse Oximetry 92 95 Oxygen Delivery Room Air Oxygen Flow Rate 05/05/24 12:00 05/05/24 14:00 05/05/24 14:00 Temperature 98.6 F Pulse Rate 101 H 114 H 109 H Respiratory Rate 28 H Blood Pressure 117/64 Pulse Oximetry 95 Oxygen Delivery Oxygen Flow Rate 05/05/24 16:00 05/05/24 16:00 05/05/24 16:00 Temperature 99.1 F Pulse Rate 115 H 119 H Respiratory Rate 20 Blood Pressure 115/65 Pulse Oximetry 95 97 Oxygen Delivery Room Air Oxygen Flow Rate 05/05/24 18:00 05/05/24 18:00 05/05/24 19:57 Temperature 98.6 F Pulse Rate 131 H 114 H 121 H Respiratory Rate 24 H 24 H Blood Pressure 92/55 L Pulse Oximetry 95 95 Oxygen Delivery Room Air Oxygen Flow Rate 05/05/24 19:59 05/05/24 20:12 05/05/24 22:00 Temperature 98.6 F Pulse Rate 121 H 119 H 118 H Respiratory Rate 24 H Blood Pressure 125/69 Pulse Oximetry 97 Oxygen Delivery Oxygen Flow Rate 05/05/24 22:27 05/05/24 23:56 05/05/24 23:58 Temperature Pulse Rate 120 H 115 H 115 H Respiratory Rate 22 H Blood Pressure 118/60 Pulse Oximetry 97 Oxygen Delivery Room Air Oxygen Flow Rate 05/06/24 00:00 05/06/24 00:00 05/06/24 00:31 Temperature 98.6 F Pulse Rate 118 H 115 H 106 H Respiratory Rate 24 H Blood Pressure 111/50 L Pulse Oximetry 94 Oxygen Delivery Oxygen Flow Rate 05/06/24 01:50 05/06/24 02:00 05/06/24 02:23 Temperature Pulse Rate 104 H 99 Respiratory Rate Blood Pressure 114/61 Pulse Oximetry Oxygen Delivery Oxygen Flow Rate 05/06/24 04:00 05/06/24 04:00 05/06/24 04:00 Temperature Pulse Rate 88 88 93 Respiratory Rate 21 H Blood Pressure Pulse Oximetry 94 Oxygen Delivery Nasal Cannula Oxygen Flow Rate 1 05/06/24 04:43 05/06/24 05:57 05/06/24 06:00 Temperature 98.6 F Pulse Rate 79 93 92 Respiratory Rate 24 H Blood Pressure 101/49 L 113/65 Pulse Oximetry 100 Oxygen Delivery Oxygen Flow Rate 05/06/24 06:00 05/06/24 06:27 05/06/24 08:22 Temperature 98.0 F Pulse Rate 83 94 83 Respiratory Rate 22 H Blood Pressure 114/64 Pulse Oximetry 95 Oxygen Delivery Oxygen Flow Rate Intake/Output Intake/Output: Intake & Output 05/03/24 05/04/24 05/05/24 05/06/24 23:59 23:59 23:59 23:59 Intake Total 1536 2162.7 1225.0 310 Output Total 475 650 850 200 Balance 1061 1512.7 375.0 110 Meds/Results Medications: Active Medications Generic Name Dose Route Start Last Admin Trade Name Freq PRN Reason Stop Dose Admin Acetaminophen 650 mg 05/03/24 12:48 Acetaminophen 325 Mg Tablet PO Q6H PRN Mild Pain (1-5) Or Fever Hydrocodone Bitart/Acetaminophen 1 tab 05/03/24 12:48 05/04/24 20:16 Hydrocodone/Acetaminophen (*Crx) 5-325 Mg Tablet PO 1 tab Q6H PRN Administration Pain Rated 6 or Greater Amitriptyline HCl 30 mg 05/02/24 21:00 05/05/24 20:21 Amitriptyline Hcl 10 Mg Tablet PO 30 mg HS MELISSA Administration Atorvastatin Calcium 40 mg 05/03/24 09:00 05/05/24 10:13 Atorvastatin 40 Mg Tablet PO Not Given DAILY MELISSA Cyanocobalamin 2,500 mcg 05/03/24 09:00 05/05/24 10:13 Cyanocobalamin 500 Mcg Tablet PO Not Given QAM MELISSA Dextrose 12.5 gm 05/02/24 13:48 Dextrose 50% 25 Gm/50 Ml Syringe IV PUSH PRN PRN Hypoglycemia Protocol Glucagon 1 mg 05/02/24 13:48 Glucagon For Inj 1 Mg Vial IM PRN PRN Hypoglycemia Protocol Glucose 15 gm 05/02/24 13:48 Glucose Oral Gel 15 Gm Of Glucse In 37.5 Gm Tube PO PRN PRN Hypoglycemia Protocol Heparin Sodium (Porcine) 5,000 units 05/04/24 15:59 Heparin Sodium 5,000 Units/Ml Vial IV PUSH PRN PRN aPTT less than 55 seconds Heparin Sodium (Porcine) 2,500 units 05/04/24 15:59 Heparin Sodium 5,000 Units/Ml Vial IV PUSH PRN PRN aPTT 55 - 70 seconds Piperacillin/Tazobactam/Dextrose 3.375 gm in 50 mls @ 100 mls/hr 05/02/24 12:00 05/06/24 06:28 Zosyn 3.375 Gm/Ns 50 Ml IVPB 100 mls/hr Q6HR MELISSA Administration Dextrose 1,000 mls @ 100 mls/hr 05/02/24 13:48 Dextrose 5% 1,000 Ml IVPB PRN PRN Hypoglycemia Protocol Heparin Sodium/Dextrose 25,000 units in 250 mls @ 0 mls/hr 05/04/24 16:00 05/05/24 10:11 Heparin Sodium/D5w 100 Units/Ml IV CONT 0 units/hr .Q0M MELISSA 0 mls/hr Titration Protocol Diltiazem HCl 100 mg in 100 mls @ 10 mls/hr 05/05/24 22:25 05/06/24 06:00 Cardizem 100 Mg/100 Ml IV CONT 10 mg/hr .Q10H MELISSA 10 mls/hr Titration Protocol 10 MG/HR Insulin Aspart 3 - 6 units 05/02/24 17:00 05/05/24 18:05 Insulin Aspart (*Bkc) 100 Units/Ml SUB-Q Not Given TIDWM [facility] Protocol Levothyroxine Sodium 25 mcg 05/03/24 06:30 05/06/24 06:28 Levothyroxine Sodium 25 Mcg Tablet PO 25 mcg DAILY@0630 [facility] Administration Metoprolol Tartrate 50 mg 05/04/24 18:00 05/06/24 06:27 Metoprolol Tartrate 50 Mg Tab PO 50 mg Q6HR MELISSA Administration Nitroglycerin 0.4 mg 05/02/24 13:50 Nitroglycerin Sl 0.4 Mg Tablet SUBLINGUAL Q5M PRN chest pain Ondansetron HCl 4 mg 05/02/24 03:45 Ondansetron Inj 4 Mg/2 Ml Vial IV PUSH Q4H PRN Nausea Pantoprazole Sodium 40 mg 05/03/24 09:00 05/05/24 10:13 Pantoprazole 40 Mg Tablet PO Not Given QAM [facility] Ranolazine 1,000 mg 05/04/24 18:00 05/06/24 06:28 Ranolazine 500 Mg Tab.Er.12h PO 1,000 mg Q12H MELISSA Administration Radiology Results: ITS Impressions Chest X-Ray 05/01/24 20:44 IMPRESSION: 1. Mild atelectasis at right lung base. 2. Cardiomegaly. Abdomen/Pelvis CT 05/02/24 06:27 IMPRESSION: 1. Acute cholecystitis. Upper Quadrant Ultrasound 05/02/24 13:50 IMPRESSION: 1. Acute cholecystitis. Head CT 05/05/24 10:51 IMPRESSION: 1. Stable moderate nonspecific cerebral white matter disease, which likely represents chronic small vessel ischemic disease. Head/Neck CTA 05/05/24 12:19 IMPRESSION: 1. Moderate nonspecific cerebral white matter disease, which likely represents chronic small vessel ischemic disease. 2. No aneurysm or significant intracranial arterial stenosis. 3. 0% stenosis of the proximal internal carotid arteries relative to normal distal artery lumen diameters (NASCET criteria). Chest/Abdomen/Pelvis CT 05/05/24 15:08 IMPRESSION: 1. Worsened acute cholecystitis. 2. Small right pleural effusion. Labs Labs: Laboratory Results - last 24 hr 05/05/24 05/05/24 05/05/24 08:13 08:22 08:23 WBC 10.0 RBC 3.46 L Hgb 10.6 L Hct 33.0 L MCV 95.4 MCH 30.6 MCHC 32.1 RDW 14.2 Plt Count 143 L MPV 10.9 H Immature Gran % (Auto) 0.6 H Neut % (Auto) 85.9 H Lymph % (Auto) 7.7 L [place] % (Auto) 5.1 Eos % (Auto) 0.4 Baso % (Auto) 0.3 Lymph # (Auto) 0.77 L [place] # (Auto) 0.5 Eos # (Auto) 0.0 Baso # (Auto) 0.0 Abs Immat Gran (auto) 0.06 H Absolute Neuts (auto) 8.5 H Absolute Nucleated RBC 0.000 Nucleated RBC % 0.0 % Immature Plt Fraction 4.9 APTT 92.9 H Sodium 133 L Potassium 4.1 Chloride 104 Carbon Dioxide 25 Anion Gap 4 BUN 29 H Creatinine 0.94 Estim Creat Clear Calc 39 Estimated GFR 56 L Glucose 116 H POC Capillary Glucose Calcium 8.3 L Phosphorus 2.4 L Magnesium 1.7 Total Bilirubin AST ALT Alkaline Phosphatase C-Reactive Protein 27.5 H Total Protein Albumin 2.8 L Procalcitonin 3.4 05/05/24 05/05/24 05/05/24 11:20 16:41 20:46 WBC RBC Hgb Hct MCV MCH MCHC RDW Plt Count MPV Immature Gran % (Auto) Neut % (Auto) Lymph % (Auto) [place] % (Auto) Eos % (Auto) Baso % (Auto) Lymph # (Auto) [place] # (Auto) Eos # (Auto) Baso # (Auto) Abs Immat Gran (auto) Absolute Neuts (auto) Absolute Nucleated RBC Nucleated RBC % % Immature Plt Fraction APTT Sodium Potassium Chloride Carbon Dioxide Anion Gap BUN Creatinine Estim Creat Clear Calc Estimated GFR Glucose POC Capillary Glucose 133 H 117 H 126 H Calcium Phosphorus Magnesium Total Bilirubin AST ALT Alkaline Phosphatase C-Reactive Protein Total Protein Albumin Procalcitonin 05/06/24 05/06/24 04:47 07:47 WBC 10.4 H RBC 3.40 L Hgb 10.4 L Hct 31.6 L MCV 92.9 MCH 30.6 MCHC 32.9 RDW 14.5 Plt Count 133 L MPV 10.6 H Immature Gran % (Auto) 1.5 H Neut % (Auto) 82.5 H Lymph % (Auto) 7.0 L [place] % (Auto) 8.4 Eos % (Auto) 0.2 Baso % (Auto) 0.4 Lymph # (Auto) 0.73 L [place] # (Auto) 0.9 H Eos # (Auto) 0.0 Baso # (Auto) 0.0 Abs Immat Gran (auto) 0.16 H Absolute Neuts (auto) 8.6 H Absolute Nucleated RBC 0.000 Nucleated RBC % 0.0 % Immature Plt Fraction 4.0 APTT Sodium 135 L Potassium 3.9 Chloride 104 Carbon Dioxide 23 Anion Gap 8 BUN 24 H Creatinine 0.78 Estim Creat Clear Calc 46 Estimated GFR > 60 Glucose 108 POC Capillary Glucose 112 H Calcium 8.6 Phosphorus 3.4 Magnesium 1.8 Total Bilirubin 0.7 AST 17 ALT 13 Alkaline Phosphatase 79 C-Reactive Protein Total Protein 6.0 L Albumin 2.6 L Procalcitonin
[2024-05-06] MEDS: dilTIAZem 100 MG/100 ML 100 MG/100 ML BAG 10 MG IV CONT ×2 (11:00)
--- NOTE | 2024-05-06 11:04 | PM.PNCARD ---
Progress Note: A&P Assessment and Plan (1) Coronary artery disease: Code(s): I25.10 - Atherosclerotic heart disease of [place] coronary artery without angina pectoris Status: Acute (2) Atrial fibrillation: Code(s): I48.91 - Unspecified atrial fibrillation Status: Acute (3) Mixed hyperlipidemia: Code(s): E78.2 - Mixed hyperlipidemia Status: Acute Plan 84-year-old woman with CAD and hypertension presented with abdominal pain found to have acute cholecystitis being medically managed who also has stable angina and now also found to have atrial fibrillation with rapid ventricular rate Chest pain -troponin ruled out for acs -TTE 1. Left ventricular chamber dimension is normal. 2. Left ventricular systolic function is normal, estimated at 55-60%. 3. There is mildly increased left ventricular wall thickness. 4. Right ventricular systolic function is normal. 5. Left atrial chamber dimension is moderately enlarged. 6. There is mild tricuspid valve regurgitation. Paroxysmal atrial fibrillation with rapid ventricular rate -currently on heparin drip and diltiazem drip -heart rate well controlled, still on diltiazem drip. Will reduce her diltiazem drip to 7.5 milligrams/hour. -Continue metoprolol 50mg q6h. Can titrate as needed. Planning to have a gallbladder drain in place later today. Hopefully this will improve her overall clinical situation/cholecystitis which is obviously driving her AFib with RVR. Hyperlipidemia -continue atorvastatin 40 mg every evening Subjective Date/time seen: 05/06/24 11:04 Interval history: Cardiology follow up visit for atrial fibrillation Date of service 05/06/2024: She has symptoms difficulty speaking due to dry mouth. Denies any chest pain or shortness of breath. Review of Systems Constitutional: Constitutional: Denies body ache(s) Cardiovascular: Cardiovascular: Reports as per HPI and Denies chest pain Respiratory: Respiratory: Reports as per HPI Exam Const: General: comfortable and alert Other: Ill-appearing and fatigued HENMT: Mouth: Yes dry mucous membranes Eyes: EOM: EOMs intact bilaterally Neck: Neck: no JVD Resp: Effort & Inspection: normal respiratory effort Auscultation: clear to auscultation bilaterally Cardio: Rate: regular rate and tachycardic Rhythm: abnormal rhythm irregularly irregular Extrem: General: no pedal edema Other: mild bilateral pretibial edema Psych: Mental Status: mental status grossly abnormal Objective Data Vital Signs Vital Signs: Vital Signs - 24 hr 05/05/24 12:00 05/05/24 12:00 05/05/24 12:00 Temperature 37.8 C H Pulse Rate 95 109 H 101 H Respiratory Rate 28 H Blood Pressure 107/59 L Pulse Oximetry 92 95 Oxygen Delivery Room Air Oxygen Flow Rate 05/05/24 14:00 05/05/24 14:00 05/05/24 16:00 Temperature 37.0 C 37.3 C Pulse Rate 114 H 109 H 115 H Respiratory Rate 28 H 20 Blood Pressure 117/64 115/65 Pulse Oximetry 95 95 Oxygen Delivery Oxygen Flow Rate 05/05/24 16:00 05/05/24 16:00 05/05/24 18:00 Temperature 37.0 C Pulse Rate 119 H 131 H Respiratory Rate 24 H Blood Pressure 92/55 L Pulse Oximetry 97 95 Oxygen Delivery Room Air Oxygen Flow Rate 05/05/24 18:00 05/05/24 19:57 05/05/24 19:59 Temperature Pulse Rate 114 H 121 H 121 H Respiratory Rate 24 H Blood Pressure Pulse Oximetry 95 Oxygen Delivery Room Air Oxygen Flow Rate 05/05/24 20:12 05/05/24 22:00 05/05/24 22:27 Temperature 37.0 C Pulse Rate 119 H 118 H 120 H Respiratory Rate 24 H Blood Pressure 125/69 118/60 Pulse Oximetry 97 Oxygen Delivery Oxygen Flow Rate 05/05/24 23:56 05/05/24 23:58 05/06/24 00:00 Temperature Pulse Rate 115 H 115 H 118 H Respiratory Rate 22 H Blood Pressure Pulse Oximetry 97 Oxygen Delivery Room Air Oxygen Flow Rate 05/06/24 00:00 05/06/24 00:31 05/06/24 01:50 Temperature 37.0 C Pulse Rate 115 H 106 H 104 H Respiratory Rate 24 H Blood Pressure 111/50 L Pulse Oximetry 94 Oxygen Delivery Oxygen Flow Rate 05/06/24 02:00 05/06/24 02:23 05/06/24 04:00 Temperature Pulse Rate 99 88 Respiratory Rate 21 H Blood Pressure 114/61 Pulse Oximetry 94 Oxygen Delivery Nasal Cannula Oxygen Flow Rate 1 05/06/24 04:00 05/06/24 04:00 05/06/24 04:43 Temperature 37.0 C Pulse Rate 88 93 79 Respiratory Rate 24 H Blood Pressure 101/49 L Pulse Oximetry 100 Oxygen Delivery Oxygen Flow Rate 05/06/24 05:57 05/06/24 06:00 05/06/24 06:00 Temperature Pulse Rate 93 92 83 Respiratory Rate Blood Pressure 113/65 Pulse Oximetry Oxygen Delivery Oxygen Flow Rate 05/06/24 06:27 05/06/24 08:22 05/06/24 10:00 Temperature 36.7 C 36.3 C L Pulse Rate 94 83 77 Respiratory Rate 22 H 20 Blood Pressure 114/64 103/44 L Pulse Oximetry 95 96 Oxygen Delivery Oxygen Flow Rate Intake/Output Intake/Output: Intake & Output 05/03/24 05/04/24 05/05/24 05/06/24 23:59 23:59 23:59 23:59 Intake Total 1536 2162.7 1225.0 310 Output Total 475 650 850 200 Balance 1061 1512.7 375.0 110 Meds/Results Medications: Active Medications Generic Name Dose Route Start Last Admin Trade Name Freq PRN Reason Stop Dose Admin Acetaminophen 650 mg 05/03/24 12:48 Acetaminophen 325 Mg Tablet PO Q6H PRN Mild Pain (1-5) Or Fever Hydrocodone Bitart/Acetaminophen 1 tab 05/03/24 12:48 05/04/24 20:16 Hydrocodone/Acetaminophen (*Crx) 5-325 Mg Tablet PO 1 tab Q6H PRN Administration Pain Rated 6 or Greater Amitriptyline HCl 30 mg 05/02/24 21:00 05/05/24 20:21 Amitriptyline Hcl 10 Mg Tablet PO 30 mg HS MELISSA Administration Atorvastatin Calcium 40 mg 05/03/24 09:00 05/05/24 10:13 Atorvastatin 40 Mg Tablet PO Not Given DAILY MELISSA Cyanocobalamin 2,500 mcg 05/03/24 09:00 05/05/24 10:13 Cyanocobalamin 500 Mcg Tablet PO Not Given QAM MELISSA Dextrose 12.5 gm 05/02/24 13:48 Dextrose 50% 25 Gm/50 Ml Syringe IV PUSH PRN PRN Hypoglycemia Protocol Glucagon 1 mg 05/02/24 13:48 Glucagon For Inj 1 Mg Vial IM PRN PRN Hypoglycemia Protocol Glucose 15 gm 05/02/24 13:48 Glucose Oral Gel 15 Gm Of Glucse In 37.5 Gm Tube PO PRN PRN Hypoglycemia Protocol Heparin Sodium (Porcine) 5,000 units 05/04/24 15:59 Heparin Sodium 5,000 Units/Ml Vial IV PUSH PRN PRN aPTT less than 55 seconds Heparin Sodium (Porcine) 2,500 units 05/04/24 15:59 Heparin Sodium 5,000 Units/Ml Vial IV PUSH PRN PRN aPTT 55 - 70 seconds Piperacillin/Tazobactam/Dextrose 3.375 gm in 50 mls @ 100 mls/hr 05/02/24 12:00 05/06/24 06:28 Zosyn 3.375 Gm/Ns 50 Ml IVPB 100 mls/hr Q6HR MELISSA Administration Dextrose 1,000 mls @ 100 mls/hr 05/02/24 13:48 Dextrose 5% 1,000 Ml IVPB PRN PRN Hypoglycemia Protocol Heparin Sodium/Dextrose 25,000 units in 250 mls @ 0 mls/hr 05/04/24 16:00 05/05/24 10:11 Heparin Sodium/D5w 100 Units/Ml IV CONT 0 units/hr .Q0M MELISSA 0 mls/hr Titration Protocol Diltiazem HCl 100 mg in 100 mls @ 10 mls/hr 05/05/24 22:25 05/06/24 06:00 Cardizem 100 Mg/100 Ml IV CONT 10 mg/hr .Q10H MELISSA 10 mls/hr Titration Protocol 10 MG/HR Insulin Aspart 3 - 6 units 05/02/24 17:00 05/05/24 18:05 Insulin Aspart (*Bkc) 100 Units/Ml SUB-Q Not Given TIDWM [facility] Protocol Levothyroxine Sodium 25 mcg 05/03/24 06:30 05/06/24 06:28 Levothyroxine Sodium 25 Mcg Tablet PO 25 mcg DAILY@0630 MELISSA Administration Metoprolol Tartrate 50 mg 05/04/24 18:00 05/06/24 06:27 Metoprolol Tartrate 50 Mg Tab PO 50 mg Q6HR MELISSA Administration Nitroglycerin 0.4 mg 05/02/24 13:50 Nitroglycerin Sl 0.4 Mg Tablet SUBLINGUAL Q5M PRN chest pain Ondansetron HCl 4 mg 05/02/24 03:45 Ondansetron Inj 4 Mg/2 Ml Vial IV PUSH Q4H PRN Nausea Pantoprazole Sodium 40 mg 05/03/24 09:00 05/05/24 10:13 Pantoprazole 40 Mg Tablet PO Not Given QAM MELISSA Ranolazine 1,000 mg 05/04/24 18:00 05/06/24 06:28 Ranolazine 500 Mg Tab.Er.12h PO 1,000 mg Q12H MELISSA Administration Radiology Results: ITS Impressions Chest X-Ray 05/01/24 20:44 IMPRESSION: 1. Mild atelectasis at right lung base. 2. Cardiomegaly. Abdomen/Pelvis CT 05/02/24 06:27 IMPRESSION: 1. Acute cholecystitis. Upper Quadrant Ultrasound 05/02/24 13:50 IMPRESSION: 1. Acute cholecystitis. Head CT 05/05/24 10:51 IMPRESSION: 1. Stable moderate nonspecific cerebral white matter disease, which likely represents chronic small vessel ischemic disease. Head/Neck CTA 05/05/24 12:19 IMPRESSION: 1. Moderate nonspecific cerebral white matter disease, which likely represents chronic small vessel ischemic disease. 2. No aneurysm or significant intracranial arterial stenosis. 3. 0% stenosis of the proximal internal carotid arteries relative to normal distal artery lumen diameters (NASCET criteria). Chest/Abdomen/Pelvis CT 05/05/24 15:08 IMPRESSION: 1. Worsened acute cholecystitis. 2. Small right pleural effusion. Labs Labs: Laboratory Results - last 24 hr 05/05/24 05/05/24 05/05/24 08:13 11:20 16:41 WBC RBC Hgb Hct MCV MCH MCHC RDW Plt Count MPV Immature Gran % (Auto) Neut % (Auto) Lymph % (Auto) [place] % (Auto) Eos % (Auto) Baso % (Auto) Lymph # (Auto) [place] # (Auto) Eos # (Auto) Baso # (Auto) Abs Immat Gran (auto) Absolute Neuts (auto) Absolute Nucleated RBC Nucleated RBC % % Immature Plt Fraction Sodium Potassium Chloride Carbon Dioxide Anion Gap BUN Creatinine Estim Creat Clear Calc Estimated GFR Glucose POC Capillary Glucose 133 H 117 H Calcium Phosphorus Magnesium Total Bilirubin AST ALT Alkaline Phosphatase C-Reactive Protein 27.5 H Total Protein Albumin Procalcitonin 3.4 05/05/24 05/06/24 05/06/24 20:46 04:47 07:47 WBC 10.4 H RBC 3.40 L Hgb 10.4 L Hct 31.6 L MCV 92.9 MCH 30.6 MCHC 32.9 RDW 14.5 Plt Count 133 L MPV 10.6 H Immature Gran % (Auto) 1.5 H Neut % (Auto) 82.5 H Lymph % (Auto) 7.0 L [place] % (Auto) 8.4 Eos % (Auto) 0.2 Baso % (Auto) 0.4 Lymph # (Auto) 0.73 L [place] # (Auto) 0.9 H Eos # (Auto) 0.0 Baso # (Auto) 0.0 Abs Immat Gran (auto) 0.16 H Absolute Neuts (auto) 8.6 H Absolute Nucleated RBC 0.000 Nucleated RBC % 0.0 % Immature Plt Fraction 4.0 Sodium 135 L Potassium 3.9 Chloride 104 Carbon Dioxide 23 Anion Gap 8 BUN 24 H Creatinine 0.78 Estim Creat Clear Calc 46 Estimated GFR > 60 Glucose 108 POC Capillary Glucose 126 H 112 H Calcium 8.6 Phosphorus 3.4 Magnesium 1.8 Total Bilirubin 0.7 AST 17 ALT 13 Alkaline Phosphatase 79 C-Reactive Protein Total Protein 6.0 L Albumin 2.6 L Procalcitonin
[2024-05-06 11:40] LABS: Glucose Point of Care 117 mg/dl (65-105)
[2024-05-06 15:27] LABS: Glucose Point of Care 112 mg/dl (65-105)
[2024-05-06] MEDS: IPRATROPIUM 0.5 MG/ALBUTEROL SULFATE 2.5 MG AMPUL.NEB 3 ML INHALATION (20:03)
[2024-05-06] MEDS: AMITRIPTYLINE HCL 10 MG TABLET 30 MG PO (20:26)
[2024-05-06] MEDS: HYDROcodone/acetaminophen (*CRX) 5-325 MG TABLET 1 TAB PO (20:26)
[2024-05-06 20:58] LABS: Influenza A QL RT-PCR Negative (Negative); Influenza B QL RT-PCR Negative (Negative); RSV RNA, RT-PCR Negative (Negative); SARS-CoV-2 RNA PCR Negative (Negative)
[2024-05-06 22:14] LABS: Glucose Point of Care 138 mg/dl (65-105)
[2024-05-07] VITALS (33 sets, daily range): BP systolic 104–135; BP diastolic 51–65; PULSE 4–105; RESP 17–24; TEMP 36.4–37.1; O2SAT 91–97
[2024-05-07] MEDS: dilTIAZem 100 MG/100 ML 100 MG/100 ML BAG 7.5 MG IV CONT ×2 (00:12→11:11)
[2024-05-07] MEDS: IPRATROPIUM 0.5 MG/ALBUTEROL SULFATE 2.5 MG AMPUL.NEB 3 ML INHALATION ×4 (02:07→20:56)
[2024-05-07 05:08] LABS: Hemoglobin 10.1 g/dL (12.0-15.0); Mean Corpuscular HGB Conc 32.6 g/dl (32-36); Mean Corpuscular Hemoglobin 30.3 pg (26-34); Mean Corpuscular Volume 93.1 fl (80-100); Mean Platelet Volume 10.5 fl (7.4-10.4); Platelet Count Result 142 k/mm3 (150-375); Red Blood Count 3.33 M/mm3 (4.2-5.4); White Blood Count 7.5 K/mm3 (4.5-10.0)
[2024-05-07 05:24] LABS: Alanine Aminotransferase 18 U/L (6-35); Albumin Level 2.6 g/dL (3.5-5.1); Alkaline Phosphatase 83 U/L (38-126); Anion Gap 9 mmol/L (4-12); Aspartate Amino Transferase 22 U/L (14-36); Bilirubin,Total 0.7 mg/dL (0.2-1.3); Blood Urea Nitrogen 32 mg/dL (7-17); Calcium 8.8 mg/dL (8.4-10.2); Carbon Dioxide 23 mmol/L (22-30); Chloride 105 mmol/L (98-107); Estimated CRCL calculation 52 ml/min; Estimated Glomerular Filt Rate > 60; Glucose 114 mg/dL (65-110); Potassium 3.7 mmol/L (3.4-5.0); Sodium 137 mmol/L (137-145)
[2024-05-07 06:41] LABS: Band Neutrophils Percent 8 % (0-6); Lymphocytes Absolute Manual 0.52 K/mm3 (1.1-4.5); Monocytes Absolute Manual 0.22 K/mm3 (0.1-0.90); Monocytes Percent Manual 3 % (3-9); Neutrophils Absolute Manual 6.75 K/mm3 (1.7-7.2); Neutrophils Percent Manual 82 % (46-73); Platelet Estimate Slightly Decreased (Adequate); Schistocytes None Seen; Total Cells Counted 100
[2024-05-07] MEDS: PIPERACILLN/TAZ 3.375GM/NS50ML 3.375 GM/50 ML BAG IVPB ×3 (06:45→18:20)
[2024-05-07] MEDS: METOPROLOL TARTRATE 50 MG TAB PO ×3 (06:45→18:19)
[2024-05-07] MEDS: LEVOTHYROXINE SODIUM 25 MCG TABLET PO (06:46)
[2024-05-07] MEDS: RANOLAZINE 500 MG TAB.ER.12H 1000 MG PO ×2 (06:46→18:19)
[2024-05-07 08:08] LABS: Glucose Point of Care 100 mg/dl (65-105)
--- NOTE | 2024-05-07 08:41 | PM.IMPN ---
Progress Note: A&P Assessment and Plan (1) Altered mental status: Code(s): R41.82 - Altered mental status, unspecified Status: Acute Assessment and Plan: Patient with AMS 05/05/2024. Concern for CVA given recent AFib and on heparin. Heparin drip stopped. Stat CT brain showing no bleed or acute findings. CTA head/neck showing no acute findings. WBC trending down but now having fevers and PCT 3.[address] Ch/A/P showing worsening acute cholecystitis. Discussed with GenSurg. Status post cholecystostomy tube placement 05/06/2024 Bile was sent for air began anaerobic culture (2) Atrial fibrillation: Code(s): I48.91 - Unspecified atrial fibrillation Status: Acute Assessment and Plan: Patient noted to have tachycardia and irregular rhythm. EKG (05/04) now showing AFib/RVR (HR 150), LAFB and borderline ST-T wave changes in the high lateral leads. Patient was moved to IMU and Diltiazem drip started. She remains on diltiazem drip Probably related to current GB infection/inflammation. [id number] at least 6. TSH normal on 04/23/24. Echo showing EF 55-60%, indeterminate diastolic fxn and mild MR Started Heparin drip but held related to above. Cards consult. Holding Cozaar given soft BP. Metoprolol added HR better controlled. Continue IV Diltiazem until her clinical picture improves. Status post Switch to oral per Cardiology (3) Acute cholecystitis: Code(s): K81.0 - Acute cholecystitis Status: Acute Assessment and Plan: Patient presents with abdominal pain. CT scan showing distended GB with gallstones, wall thickening and surrounding fat stranding consistent with acute cholecystitis. RUQ US showing similar findings. Patient started on Zosyn. Started on clear liquid diet. General surgery consulted. Appreciate their input. Patient high risk with plan currently to treat conservatively. WBC better today but other inflammatory markers elevated. Continue IV abx. Status post cholecystostomy tube placement 05/06/2024 Continue supportive care. Bile culture has been sent. (4) Essential hypertension: Code(s): I10 - Essential (primary) hypertension Status: Acute Assessment and Plan: Blood pressure soft at times Continue current medications. (5) Coronary artery disease: Code(s): I25.10 - Atherosclerotic heart disease of [place] coronary artery without angina pectoris Status: Acute Assessment and Plan: Patient with coronary disease. Continue Lipitor. She is not on metoprolol or aspirin. Renexa was on hold but resumed since no surgery planned. QTc okay. (6) Prediabetes: Code(s): R73.03 - Prediabetes Status: Acute Assessment and Plan: Glucose remains well controlled. Continue AccuCheks covering with sliding scale. Hypoglycemia protocol available as needed. Continue to follow Plan Urine retention - Alvarez placed. UOP better. Holding IV fluids. Voiding trial when more ambulatory. DVT prophylaxis - SCDs, Heparin Code status - full Subjective Date/time seen: 05/07/24 08:41 Interval history: No overnight events. Still confused. Family at bedside and discussed with her. Underwent cholecystostomy tube placement yesterday. Patient remains afebrile. Review of Systems Review of Systems: All systems reviewed & are unremarkable except as noted in HPI and below Exam Narrative: Gen - NARD Chest - left base crackles and decreased BS in the right base o/w clear. CV - irregular. Tele showing AFib with improved rate Abd - Soft, distended nontender no guarding or rebound Ext - No pedal edema Neuro -awake and alert, follows commands. Generalized weakness Skin - Warm and dry Objective Data Vital Signs Vital Signs: Vital Signs - 24 hr 05/06/24 10:00 05/06/24 10:00 05/06/24 11:00 Temperature 97.4 F L Pulse Rate 77 82 88 Respiratory Rate 20 Blood Pressure 103/44 L Pulse Oximetry 96 Oxygen Delivery Oxygen Flow Rate 05/06/24 11:00 05/06/24 11:43 05/06/24 12:00 Temperature 98.1 F Pulse Rate 88 83 Respiratory Rate 18 Blood Pressure 130/61 Pulse Oximetry 95 96 Oxygen Delivery Nasal Cannula Oxygen Flow Rate 2 05/06/24 12:00 05/06/24 14:00 05/06/24 16:00 Temperature Pulse Rate 83 93 93 Respiratory Rate Blood Pressure Pulse Oximetry Oxygen Delivery Oxygen Flow Rate 05/06/24 16:00 05/06/24 16:00 05/06/24 18:00 Temperature 97.6 F Pulse Rate 87 87 Respiratory Rate 18 Blood Pressure 121/66 Pulse Oximetry 96 97 Oxygen Delivery Nasal Cannula Oxygen Flow Rate 2 05/06/24 18:18 05/06/24 19:58 05/06/24 20:00 Temperature 98.6 F Pulse Rate 92 105 H Respiratory Rate 19 Blood Pressure 138/50 L Pulse Oximetry 91 96 Oxygen Delivery Nasal Cannula Oxygen Flow Rate 2 05/06/24 20:00 05/06/24 20:00 05/06/24 20:08 Temperature Pulse Rate 88 83 88 Respiratory Rate 18 Blood Pressure Pulse Oximetry Oxygen Delivery Oxygen Flow Rate 05/06/24 20:18 05/06/24 20:20 05/06/24 22:00 Temperature 97.7 F Pulse Rate 90 87 Respiratory Rate 18 18 Blood Pressure 107/63 Pulse Oximetry 95 98 Oxygen Delivery Nasal Cannula Oxygen Flow Rate 2 05/06/24 22:00 05/06/24 22:00 05/06/24 23:18 Temperature Pulse Rate 87 88 70 Respiratory Rate 18 Blood Pressure Pulse Oximetry 98 Oxygen Delivery Nasal Cannula Oxygen Flow Rate 1.5 05/06/24 23:18 05/06/24 23:45 05/07/24 00:00 Temperature 98.3 F Pulse Rate 70 71 71 Respiratory Rate 18 Blood Pressure Pulse Oximetry 96 Oxygen Delivery Oxygen Flow Rate 05/07/24 00:12 05/07/24 01:26 05/07/24 02:00 Temperature 98.6 F Pulse Rate 91 75 75 Respiratory Rate 18 Blood Pressure 104/61 Pulse Oximetry 97 Oxygen Delivery Oxygen Flow Rate 05/07/24 02:08 05/07/24 02:17 05/07/24 03:51 Temperature 98.5 F Pulse Rate 74 77 72 Respiratory Rate 18 18 18 Blood Pressure 119/61 Pulse Oximetry 95 Oxygen Delivery Oxygen Flow Rate 05/07/24 04:00 05/07/24 04:00 05/07/24 05:50 Temperature 97.5 F L Pulse Rate 71 71 71 Respiratory Rate 18 18 Blood Pressure 111/51 L Pulse Oximetry 95 95 Oxygen Delivery Nasal Cannula Oxygen Flow Rate 1 05/07/24 06:00 05/07/24 06:00 05/07/24 06:45 Temperature Pulse Rate 77 78 78 Respiratory Rate 18 Blood Pressure Pulse Oximetry 94 Oxygen Delivery Room Air Oxygen Flow Rate 05/07/24 08:21 Temperature 97.9 F Pulse Rate 80 Respiratory Rate 20 Blood Pressure 135/60 Pulse Oximetry 96 Oxygen Delivery Oxygen Flow Rate Intake/Output Intake/Output: Intake & Output 05/04/24 05/05/24 05/06/24 05/07/24 23:59 23:59 23:59 23:59 Intake Total 2162.7 1225.0 1711.7 50 Output Total 650 850 700 300 Balance 1512.7 375.0 1011.7 -250 Meds/Results Medications: Active Medications Generic Name Dose Route Start Last Admin Trade Name Freq PRN Reason Stop Dose Admin Acetaminophen 650 mg 05/03/24 12:48 Acetaminophen 325 Mg Tablet PO Q6H PRN Mild Pain (1-5) Or Fever Hydrocodone Bitart/Acetaminophen 1 tab 05/03/24 12:48 05/06/24 20:26 Hydrocodone/Acetaminophen (*Crx) 5-325 Mg Tablet PO 1 tab Q6H PRN Administration Pain Rated 6 or Greater Albuterol/Ipratropium 3 ml 05/06/24 20:00 05/07/24 02:07 Ipratropium 0.5 Mg/Albuterol Sulfate 2.5 Mg Ampul.Neb 3 Ml INHALATION 3 ml Q6HRT MELISSA Administration Amitriptyline HCl 30 mg 05/02/24 21:00 05/06/24 20:26 Amitriptyline Hcl 10 Mg Tablet PO 30 mg HS MELISSA Administration Atorvastatin Calcium 40 mg 05/03/24 09:00 05/06/24 13:20 Atorvastatin 40 Mg Tablet PO Not Given DAILY MELISSA Cyanocobalamin 2,500 mcg 05/03/24 09:00 05/06/24 13:20 Cyanocobalamin 500 Mcg Tablet PO Not Given QAM MELISSA Dextrose 12.5 gm 05/02/24 13:48 Dextrose 50% 25 Gm/50 Ml Syringe IV PUSH PRN PRN Hypoglycemia Protocol Glucagon 1 mg 05/02/24 13:48 Glucagon For Inj 1 Mg Vial IM PRN PRN Hypoglycemia Protocol Glucose 15 gm 05/02/24 13:48 Glucose Oral Gel 15 Gm Of Glucse In 37.5 Gm Tube PO PRN PRN Hypoglycemia Protocol Heparin Sodium (Porcine) 5,000 units 05/04/24 15:59 Heparin Sodium 5,000 Units/Ml Vial IV PUSH PRN PRN aPTT less than 55 seconds Heparin Sodium (Porcine) 2,500 units 05/04/24 15:59 Heparin Sodium 5,000 Units/Ml Vial IV PUSH PRN PRN aPTT 55 - 70 seconds Piperacillin/Tazobactam/Dextrose 3.375 gm in 50 mls @ 100 mls/hr 05/02/24 12:00 05/07/24 06:45 Zosyn 3.375 Gm/Ns 50 Ml IVPB 100 mls/hr Q6HR MELISSA Administration Dextrose 1,000 mls @ 100 mls/hr 05/02/24 13:48 Dextrose 5% 1,000 Ml IVPB PRN PRN Hypoglycemia Protocol Heparin Sodium/Dextrose 25,000 units in 250 mls @ 0 mls/hr 05/04/24 16:00 05/05/24 10:11 Heparin Sodium/D5w 100 Units/Ml IV CONT 0 units/hr .Q0M MELISSA 0 mls/hr Titration Protocol Diltiazem HCl 100 mg in 100 mls @ 7.5 mls/hr 05/05/24 22:25 05/07/24 00:12 Cardizem 100 Mg/100 Ml IV CONT 7.5 mg/hr .[id number] MELISSA 7.5 mls/hr Administration Protocol 7.5 MG/HR Insulin Aspart 3 - 6 units 05/02/24 17:00 05/06/24 18:09 Insulin Aspart (*Bkc) 100 Units/Ml SUB-Q Not Given TIDWM COUNT INCLUDES THE [facility] Protocol Levothyroxine Sodium 25 mcg 05/03/24 06:30 05/07/24 06:46 Levothyroxine Sodium 25 Mcg Tablet PO 25 mcg DAILY@0630 COUNT INCLUDES THE [facility] Administration Metoprolol Tartrate 50 mg 05/04/24 18:00 05/07/24 06:45 Metoprolol Tartrate 50 Mg Tab PO 50 mg Q6HR MELISSA Administration Nitroglycerin 0.4 mg 05/02/24 13:50 Nitroglycerin Sl 0.4 Mg Tablet SUBLINGUAL Q5M PRN chest pain Ondansetron HCl 4 mg 05/02/24 03:45 Ondansetron Inj 4 Mg/2 Ml Vial IV PUSH Q4H PRN Nausea Pantoprazole Sodium 40 mg 05/03/24 09:00 05/06/24 13:20 Pantoprazole 40 Mg Tablet PO Not Given QAM MELISSA Ranolazine 1,000 mg 05/04/24 18:00 05/07/24 06:46 Ranolazine 500 Mg Tab.Er.12h PO 1,000 mg Q12H MELISSA Administration Radiology Results: ITS Impressions Chest X-Ray 05/01/24 20:44 IMPRESSION: 1. Mild atelectasis at right lung base. 2. Cardiomegaly. Abdomen/Pelvis CT 05/02/24 06:27 IMPRESSION: 1. Acute cholecystitis. Upper Quadrant Ultrasound 05/02/24 13:50 IMPRESSION: 1. Acute cholecystitis. Head CT 05/05/24 10:51 IMPRESSION: 1. Stable moderate nonspecific cerebral white matter disease, which likely represents chronic small vessel ischemic disease. Head/Neck CTA 05/05/24 12:19 IMPRESSION: 1. Moderate nonspecific cerebral white matter disease, which likely represents chronic small vessel ischemic disease. 2. No aneurysm or significant intracranial arterial stenosis. 3. 0% stenosis of the proximal internal carotid arteries relative to normal distal artery lumen diameters (NASCET criteria). Chest/Abdomen/Pelvis CT 05/05/24 15:08 IMPRESSION: 1. Worsened acute cholecystitis. 2. Small right pleural effusion. Cholecystostomy 05/06/24 15:15 IMPRESSION: 1. Successful ultrasound-guided cholecystostomy tube placement. 2. 8 mm clear, orange bile was sent for aerobic and anaerobic cultures. 3. The catheter will be managed by Dr. Mckenzie. A catheter cholangiogram may be performed not less than 48 hours after tube placement if clinically indicated to assess cystic duct patency. If cholecystectomy is not eventually performed and the infectious episode has resolved, the tube may be removed over a guidewire, preferably not less than 3 weeks after placement to allow time for a mature catheter tract to form to prevent bile leakage and peritonitis. Labs Labs: Laboratory Results - last 24 hr 05/06/24 05/06/24 05/06/24 11:24 15:23 20:08 WBC RBC Hgb Hct MCV MCH MCHC RDW Plt Count MPV Immature Gran % (Auto) Neut % (Auto) Lymph % (Auto) [place] % (Auto) Eos % (Auto) Baso % (Auto) Lymph # (Auto) [place] # (Auto) Eos # (Auto) Baso # (Auto) Abs Immat Gran (auto) Absolute Neuts (auto) Absolute Nucleated RBC Total Counted Neutrophils % (Manual) Band Neutrophils % Lymphocytes % (Manual) Monocytes % (Manual) Nucleated RBC % Abs Neuts (Manual) Abs Lymphs (Manual) Abs Monocytes (Manual) Platelet Estimate Schistocytes Sodium Potassium Chloride Carbon Dioxide Anion Gap BUN Creatinine Estim Creat Clear Calc Estimated GFR Glucose POC Capillary Glucose 117 H 112 H Calcium Magnesium Total Bilirubin AST ALT Alkaline Phosphatase Total Protein Albumin Influenza A (RT-PCR) Negative Influenza B (RT-PCR) Negative RSV (RT-PCR) Negative SARS-CoV-2 RNA (RT-PCR) Negative 05/06/24 05/07/24 05/07/24 22:10 04:44 07:25 WBC 7.5 RBC 3.33 L Hgb 10.1 L Hct 31.0 L MCV 93.1 MCH 30.3 MCHC 32.6 RDW 15.0 H Plt Count 142 L MPV 10.5 H Immature Gran % (Auto) Not Reportable Neut % (Auto) Not Reportable Lymph % (Auto) Not Reportable [place] % (Auto) Not Reportable Eos % (Auto) Not Reportable Baso % (Auto) Not Reportable Lymph # (Auto) Not Reportable [place] # (Auto) Not Reportable Eos # (Auto) Not Reportable Baso # (Auto) Not Reportable Abs Immat Gran (auto) Not Reportable Absolute Neuts (auto) Not Reportable Absolute Nucleated RBC Not Reportable Total Counted 100 Neutrophils % (Manual) 82 H Band Neutrophils % 8 H Lymphocytes % (Manual) 7.0 L Monocytes % (Manual) 3 Nucleated RBC % Not Reportable Abs Neuts (Manual) 6.75 Abs Lymphs (Manual) 0.52 L Abs Monocytes (Manual) 0.22 Platelet Estimate Slightly decreased Schistocytes None seen Sodium 137 Potassium 3.7 Chloride 105 Carbon Dioxide 23 Anion Gap 9 BUN 32 H Creatinine 0.70 Estim Creat Clear Calc 52 Estimated GFR > 60 Glucose 114 H POC Capillary Glucose 138 H 100 Calcium 8.8 Magnesium 2.0 Total Bilirubin 0.7 AST 22 ALT 18 Alkaline Phosphatase 83 Total Protein 6.0 L Albumin 2.6 L Influenza A (RT-PCR) Influenza B (RT-PCR) RSV (RT-PCR) SARS-CoV-2 RNA (RT-PCR)
[2024-05-07] MEDS: PANTOPRAZOLE 40 MG TABLET PO (09:31)
[2024-05-07] MEDS: ATORVASTATIN 40 MG TABLET PO (09:31)
[2024-05-07] MEDS: CYANOCOBALAMIN 500 MCG TABLET 2500 MCG PO (09:31)
--- NOTE | 2024-05-07 11:18 | PM.PNGS ---
Progress Note: A&P Assessment and Plan (1) Acute cholecystitis: Code(s): K81.0 - Acute cholecystitis Status: Acute Assessment and Plan: Improving following percutaneous cholecystostomy tube placement. Culture pending. WBC normalized. Mentation improved. Continue IV antibiotics Monitor perc cholecystostomy tube Advance to full liquids Plan I have discussed the patient's case and plan of care with Dr. Mckenzie. Subjective Subjective Date/Time Seen: 05/07/24 11:18 Patient reports: no new complaints, feels better, tolerating liquids well, flatus, bowel movement and afebrile Interval history: Patient alert and oriented x3. She is feeling much better today. Denies any abdominal pain this morning. White blood cell count down to 7.5. There is about 50 cc of output in the cholecystostomy tube. No documented output. Exam Const: General: comfortable and no acute distress Orientation/consciousness: patient oriented x3 GI: Inspection: non-distended GI Palp: Yes Soft to palpation, Yes Tenderness to palpation present (GI) (Right upper quadrant), No Guarding due to palpation present (GI) and No Rebound tenderness present Auscultation: normal bowel sounds Other: Percutaneous cholecystostomy tube with purulent-appearing bilious output Objective Data Vital Signs Vital Signs: Vital Signs - 24 hr 05/06/24 11:43 05/06/24 12:00 05/06/24 12:00 Temperature 98.1 F Pulse Rate 83 83 Respiratory Rate 18 Blood Pressure 130/61 Pulse Oximetry 95 96 Oxygen Delivery Nasal Cannula Oxygen Flow Rate 2 05/06/24 14:00 05/06/24 16:00 05/06/24 16:00 Temperature 97.6 F Pulse Rate 93 93 87 Respiratory Rate 18 Blood Pressure 121/66 Pulse Oximetry 96 Oxygen Delivery Oxygen Flow Rate 05/06/24 16:00 05/06/24 18:00 05/06/24 18:18 Temperature Pulse Rate 87 92 Respiratory Rate Blood Pressure Pulse Oximetry 97 Oxygen Delivery Nasal Cannula Oxygen Flow Rate 2 05/06/24 19:58 05/06/24 20:00 05/06/24 20:00 Temperature 98.6 F Pulse Rate 105 H 88 Respiratory Rate 19 Blood Pressure 138/50 L Pulse Oximetry 91 96 Oxygen Delivery Nasal Cannula Oxygen Flow Rate 2 05/06/24 20:00 05/06/24 20:08 05/06/24 20:18 Temperature Pulse Rate 83 88 90 Respiratory Rate 18 18 Blood Pressure Pulse Oximetry Oxygen Delivery Oxygen Flow Rate 05/06/24 20:20 05/06/24 22:00 05/06/24 22:00 Temperature 97.7 F Pulse Rate 87 87 Respiratory Rate 18 Blood Pressure 107/63 Pulse Oximetry 95 98 Oxygen Delivery Nasal Cannula Oxygen Flow Rate 2 05/06/24 22:00 05/06/24 23:18 05/06/24 23:18 Temperature Pulse Rate 88 70 70 Respiratory Rate 18 Blood Pressure Pulse Oximetry 98 Oxygen Delivery Nasal Cannula Oxygen Flow Rate 1.5 05/06/24 23:45 05/07/24 00:00 05/07/24 00:12 Temperature 98.3 F Pulse Rate 71 71 91 Respiratory Rate 18 Blood Pressure Pulse Oximetry 96 Oxygen Delivery Oxygen Flow Rate 05/07/24 01:26 05/07/24 02:00 05/07/24 02:08 Temperature 98.6 F Pulse Rate 75 75 74 Respiratory Rate 18 18 Blood Pressure 104/61 Pulse Oximetry 97 Oxygen Delivery Oxygen Flow Rate 05/07/24 02:17 05/07/24 03:51 05/07/24 04:00 Temperature 98.5 F Pulse Rate 77 72 71 Respiratory Rate 18 18 18 Blood Pressure 119/61 Pulse Oximetry 95 95 Oxygen Delivery Nasal Cannula Oxygen Flow Rate 1 05/07/24 04:00 05/07/24 05:50 05/07/24 06:00 Temperature 97.5 F L Pulse Rate 71 71 77 Respiratory Rate 18 Blood Pressure 111/51 L Pulse Oximetry 95 Oxygen Delivery Oxygen Flow Rate 05/07/24 06:00 05/07/24 06:45 05/07/24 08:00 Temperature Pulse Rate 78 78 81 Respiratory Rate 18 Blood Pressure Pulse Oximetry 94 Oxygen Delivery Room Air Oxygen Flow Rate 05/07/24 08:21 05/07/24 09:05 05/07/24 09:05 Temperature 97.9 F Pulse Rate 80 82 Respiratory Rate 20 18 Blood Pressure 135/60 Pulse Oximetry 96 92 Oxygen Delivery Room Air Oxygen Flow Rate 05/07/24 09:15 05/07/24 10:00 05/07/24 11:11 Temperature Pulse Rate 80 87 84 Respiratory Rate 18 Blood Pressure Pulse Oximetry Oxygen Delivery Oxygen Flow Rate 05/07/24 11:11 Temperature Pulse Rate 84 Respiratory Rate Blood Pressure Pulse Oximetry Oxygen Delivery Oxygen Flow Rate Intake/Output Intake/Output: Intake & Output 05/04/24 05/05/24 05/06/24 05/07/24 23:59 23:59 23:59 23:59 Intake Total 2162.7 1225.0 1711.7 132.4 Output Total 650 850 700 300 Balance 1512.7 375.0 1011.7 -167.6 Meds/Results Medications: Active Medications Generic Name Dose Route Start Last Admin Trade Name Freq PRN Reason Stop Dose Admin Acetaminophen 650 mg 05/03/24 12:48 Acetaminophen 325 Mg Tablet PO Q6H PRN Mild Pain (1-5) Or Fever Hydrocodone Bitart/Acetaminophen 1 tab 05/03/24 12:48 05/06/24 20:26 Hydrocodone/Acetaminophen (*Crx) 5-325 Mg Tablet PO 1 tab Q6H PRN Administration Pain Rated 6 or Greater Albuterol/Ipratropium 3 ml 05/06/24 20:00 05/07/24 09:05 Ipratropium 0.5 Mg/Albuterol Sulfate 2.5 Mg Ampul.Neb 3 Ml INHALATION 3 ml Q6HRT MELISSA Administration Amitriptyline HCl 30 mg 05/02/24 21:00 05/06/24 20:26 Amitriptyline Hcl 10 Mg Tablet PO 30 mg HS MELISSA Administration Atorvastatin Calcium 40 mg 05/03/24 09:00 05/07/24 09:31 Atorvastatin 40 Mg Tablet PO 40 mg DAILY MELISSA Administration Cyanocobalamin 2,500 mcg 05/03/24 09:00 05/07/24 09:31 Cyanocobalamin 500 Mcg Tablet PO 2,500 mcg QAM MELISSA Administration Dextrose 12.5 gm 05/02/24 13:48 Dextrose 50% 25 Gm/50 Ml Syringe IV PUSH PRN PRN Hypoglycemia Protocol Glucagon 1 mg 05/02/24 13:48 Glucagon For Inj 1 Mg Vial IM PRN PRN Hypoglycemia Protocol Glucose 15 gm 05/02/24 13:48 Glucose Oral Gel 15 Gm Of Glucse In 37.5 Gm Tube PO PRN PRN Hypoglycemia Protocol Piperacillin/Tazobactam/Dextrose 3.375 gm in 50 mls @ 100 mls/hr 05/02/24 12:00 05/07/24 06:45 Zosyn 3.375 Gm/Ns 50 Ml IVPB 100 mls/hr Q6HR MELISSA Administration Dextrose 1,000 mls @ 100 mls/hr 05/02/24 13:48 Dextrose 5% 1,000 Ml IVPB PRN PRN Hypoglycemia Protocol Diltiazem HCl 100 mg in 100 mls @ 7.5 mls/hr 05/05/24 22:25 05/07/24 11:11 Cardizem 100 Mg/100 Ml IV CONT 7.5 mg/hr .[id number] MELISSA 7.5 mls/hr Administration Protocol 7.5 MG/HR Insulin Aspart 3 - 6 units 05/02/24 17:00 05/07/24 09:30 Insulin Aspart (*Bkc) 100 Units/Ml SUB-Q Not Given TIDWM [facility] Protocol Levothyroxine Sodium 25 mcg 05/03/24 06:30 05/07/24 06:46 Levothyroxine Sodium 25 Mcg Tablet PO 25 mcg DAILY@0630 MELISSA Administration Metoprolol Tartrate 50 mg 05/04/24 18:00 05/07/24 06:45 Metoprolol Tartrate 50 Mg Tab PO 50 mg Q6HR MELISSA Administration Nitroglycerin 0.4 mg 05/02/24 13:50 Nitroglycerin Sl 0.4 Mg Tablet SUBLINGUAL Q5M PRN chest pain Ondansetron HCl 4 mg 05/02/24 03:45 Ondansetron Inj 4 Mg/2 Ml Vial IV PUSH Q4H PRN Nausea Pantoprazole Sodium 40 mg 05/03/24 09:00 05/07/24 09:31 Pantoprazole 40 Mg Tablet PO 40 mg QAM MELISSA Administration Ranolazine 1,000 mg 05/04/24 18:00 05/07/24 06:46 Ranolazine 500 Mg Tab.Er.12h PO 1,000 mg Q12H MELISSA Administration Radiology Results: ITS Impressions Chest X-Ray 05/01/24 20:44 IMPRESSION: 1. Mild atelectasis at right lung base. 2. Cardiomegaly. Abdomen/Pelvis CT 05/02/24 06:27 IMPRESSION: 1. Acute cholecystitis. Upper Quadrant Ultrasound 05/02/24 13:50 IMPRESSION: 1. Acute cholecystitis. Head CT 05/05/24 10:51 IMPRESSION: 1. Stable moderate nonspecific cerebral white matter disease, which likely represents chronic small vessel ischemic disease. Head/Neck CTA 05/05/24 12:19 IMPRESSION: 1. Moderate nonspecific cerebral white matter disease, which likely represents chronic small vessel ischemic disease. 2. No aneurysm or significant intracranial arterial stenosis. 3. 0% stenosis of the proximal internal carotid arteries relative to normal distal artery lumen diameters (NASCET criteria). Chest/Abdomen/Pelvis CT 05/05/24 15:08 IMPRESSION: 1. Worsened acute cholecystitis. 2. Small right pleural effusion. Cholecystostomy 05/06/24 15:15 IMPRESSION: 1. Successful ultrasound-guided cholecystostomy tube placement. 2. 8 mm clear, orange bile was sent for aerobic and anaerobic cultures. 3. The catheter will be managed by Dr. Mckenzie. A catheter cholangiogram may be performed not less than 48 hours after tube placement if clinically indicated to assess cystic duct patency. If cholecystectomy is not eventually performed and the infectious episode has resolved, the tube may be removed over a guidewire, preferably not less than 3 weeks after placement to allow time for a mature catheter tract to form to prevent bile leakage and peritonitis. Labs Labs: Laboratory Results - last 24 hr 05/06/24 05/06/24 05/06/24 11:24 15:23 20:08 WBC RBC Hgb Hct MCV MCH MCHC RDW Plt Count MPV Immature Gran % (Auto) Neut % (Auto) Lymph % (Auto) [place] % (Auto) Eos % (Auto) Baso % (Auto) Lymph # (Auto) [place] # (Auto) Eos # (Auto) Baso # (Auto) Abs Immat Gran (auto) Absolute Neuts (auto) Absolute Nucleated RBC Total Counted Neutrophils % (Manual) Band Neutrophils % Lymphocytes % (Manual) Monocytes % (Manual) Nucleated RBC % Abs Neuts (Manual) Abs Lymphs (Manual) Abs Monocytes (Manual) Platelet Estimate Schistocytes Sodium Potassium Chloride Carbon Dioxide Anion Gap BUN Creatinine Estim Creat Clear Calc Estimated GFR Glucose POC Capillary Glucose 117 H 112 H Calcium Magnesium Total Bilirubin AST ALT Alkaline Phosphatase Total Protein Albumin Influenza A (RT-PCR) Negative Influenza B (RT-PCR) Negative RSV (RT-PCR) Negative SARS-CoV-2 RNA (RT-PCR) Negative 05/06/24 05/07/24 05/07/24 22:10 04:44 07:25 WBC 7.5 RBC 3.33 L Hgb 10.1 L Hct 31.0 L MCV 93.1 MCH 30.3 MCHC 32.6 RDW 15.0 H Plt Count 142 L MPV 10.5 H Immature Gran % (Auto) Not Reportable Neut % (Auto) Not Reportable Lymph % (Auto) Not Reportable [place] % (Auto) Not Reportable Eos % (Auto) Not Reportable Baso % (Auto) Not Reportable Lymph # (Auto) Not Reportable [place] # (Auto) Not Reportable Eos # (Auto) Not Reportable Baso # (Auto) Not Reportable Abs Immat Gran (auto) Not Reportable Absolute Neuts (auto) Not Reportable Absolute Nucleated RBC Not Reportable Total Counted 100 Neutrophils % (Manual) 82 H Band Neutrophils % 8 H Lymphocytes % (Manual) 7.0 L Monocytes % (Manual) 3 Nucleated RBC % Not Reportable Abs Neuts (Manual) 6.75 Abs Lymphs (Manual) 0.52 L Abs Monocytes (Manual) 0.22 Platelet Estimate Slightly decreased Schistocytes None seen Sodium 137 Potassium 3.7 Chloride 105 Carbon Dioxide 23 Anion Gap 9 BUN 32 H Creatinine 0.70 Estim Creat Clear Calc 52 Estimated GFR > 60 Glucose 114 H POC Capillary Glucose 138 H 100 Calcium 8.8 Magnesium 2.0 Total Bilirubin 0.7 AST 22 ALT 18 Alkaline Phosphatase 83 Total Protein 6.0 L Albumin 2.6 L Influenza A (RT-PCR) Influenza B (RT-PCR) RSV (RT-PCR) SARS-CoV-2 RNA (RT-PCR)
[2024-05-07 11:59] LABS: Glucose Point of Care 171 mg/dl (65-105)
--- NOTE | 2024-05-07 14:31 | PM.PNCARD ---
Progress Note: A&P Assessment and Plan (1) Coronary artery disease: Code(s): I25.10 - Atherosclerotic heart disease of [place] coronary artery without angina pectoris Status: Acute (2) Atrial fibrillation: Code(s): I48.91 - Unspecified atrial fibrillation Status: Acute (3) Mixed hyperlipidemia: Code(s): E78.2 - Mixed hyperlipidemia Status: Acute Plan 84-year-old woman with CAD and hypertension presented with abdominal pain found to have acute cholecystitis status post cholecystostomy tube who also has stable angina and now also found to have atrial fibrillation with rapid ventricular rate Chest pain -troponin ruled out for acs -TTE 1. Left ventricular chamber dimension is normal. 2. Left ventricular systolic function is normal, estimated at 55-60%. 3. There is mildly increased left ventricular wall thickness. 4. Right ventricular systolic function is normal. 5. Left atrial chamber dimension is moderately enlarged. 6. There is mild tricuspid valve regurgitation. Paroxysmal atrial fibrillation with rapid ventricular rate -spontaneously converted to sinus rhythm -discontinue diltiazem drip -Continue metoprolol 50mg q6h. Can shift to long-acting metoprolol prior to discharge -No a/c at present because of per cholecystostomy tube placement yesterday. Will verify with surgery when o.k. to resume a/c - would start DOAC Hyperlipidemia -continue atorvastatin 40 mg every evening Shortness of breath -She has received lots of IV fluids during her hospitalization, 5+L fluid positive. Will give furosemide 40mg IV x 1. Subjective Date/time seen: 05/07/24 14:31 Interval history: Cardiology follow up visit for atrial fibrillation Date of service 05/06/2024: She has symptoms difficulty speaking due to dry mouth. Denies any chest pain or shortness of breath. Date of service 05/07/2024: She spontaneously converted to sinus rhythm and remains in sinus rhythm now. She has some shortness of breath. Denies any chest pain. She is having some problems swallowing, therefore she is going to undergo a swallow study today. Review of Systems Constitutional: Constitutional: Denies body ache(s) Cardiovascular: Cardiovascular: Reports as per HPI and Denies chest pain Respiratory: Respiratory: Reports as per HPI Exam Const: General: comfortable and alert Other: Ill-appearing and fatigued HENMT: Mouth: Yes dry mucous membranes Eyes: EOM: EOMs intact bilaterally Neck: Neck: no JVD Resp: Effort & Inspection: normal respiratory effort Auscultation: crackles Cardio: Rate: regular rate Rhythm: regular rhythm Extrem: General: no pedal edema Other: mild bilateral pretibial edema Psych: Mental Status: mental status grossly normal Objective Data Vital Signs Vital Signs: Vital Signs - 24 hr 05/06/24 16:00 05/06/24 16:00 05/06/24 16:00 Temperature 36.4 C Pulse Rate 93 87 Respiratory Rate 18 Blood Pressure 121/66 Pulse Oximetry 96 97 Oxygen Delivery Nasal Cannula Oxygen Flow Rate 2 05/06/24 18:00 05/06/24 18:18 05/06/24 19:58 Temperature 37.0 C Pulse Rate 87 92 105 H Respiratory Rate 19 Blood Pressure 138/50 L Pulse Oximetry 91 Oxygen Delivery Oxygen Flow Rate 05/06/24 20:00 05/06/24 20:00 05/06/24 20:00 Temperature Pulse Rate 88 83 Respiratory Rate Blood Pressure Pulse Oximetry 96 Oxygen Delivery Nasal Cannula Oxygen Flow Rate 2 05/06/24 20:08 05/06/24 20:18 05/06/24 20:20 Temperature Pulse Rate 88 90 Respiratory Rate 18 18 Blood Pressure Pulse Oximetry 95 Oxygen Delivery Nasal Cannula Oxygen Flow Rate 2 05/06/24 22:00 05/06/24 22:00 05/06/24 22:00 Temperature 36.5 C Pulse Rate 87 87 88 Respiratory Rate 18 Blood Pressure 107/63 Pulse Oximetry 98 Oxygen Delivery Oxygen Flow Rate 05/06/24 23:18 05/06/24 23:18 05/06/24 23:45 Temperature Pulse Rate 70 70 71 Respiratory Rate 18 Blood Pressure Pulse Oximetry 98 Oxygen Delivery Nasal Cannula Oxygen Flow Rate 1.5 05/07/24 00:00 05/07/24 00:12 05/07/24 01:26 Temperature 36.8 C Pulse Rate 71 91 75 Respiratory Rate 18 Blood Pressure Pulse Oximetry 96 Oxygen Delivery Oxygen Flow Rate 05/07/24 02:00 05/07/24 02:08 05/07/24 02:17 Temperature 37.0 C Pulse Rate 75 74 77 Respiratory Rate 18 18 18 Blood Pressure 104/61 Pulse Oximetry 97 Oxygen Delivery Oxygen Flow Rate 05/07/24 03:51 05/07/24 04:00 05/07/24 04:00 Temperature 36.9 C Pulse Rate 72 71 71 Respiratory Rate 18 18 Blood Pressure 119/61 Pulse Oximetry 95 95 Oxygen Delivery Nasal Cannula Oxygen Flow Rate 1 05/07/24 05:50 05/07/24 06:00 05/07/24 06:00 Temperature 36.4 C L Pulse Rate 71 77 78 Respiratory Rate 18 18 Blood Pressure 111/51 L Pulse Oximetry 95 94 Oxygen Delivery Room Air Oxygen Flow Rate 05/07/24 06:45 05/07/24 08:00 05/07/24 08:21 Temperature 36.6 C Pulse Rate 78 81 80 Respiratory Rate 20 Blood Pressure 135/60 Pulse Oximetry 96 Oxygen Delivery Oxygen Flow Rate 05/07/24 09:05 05/07/24 09:05 05/07/24 09:15 Temperature Pulse Rate 82 80 Respiratory Rate 18 18 Blood Pressure Pulse Oximetry 92 Oxygen Delivery Room Air Oxygen Flow Rate 05/07/24 10:00 05/07/24 11:11 05/07/24 11:11 Temperature Pulse Rate 87 84 84 Respiratory Rate Blood Pressure Pulse Oximetry Oxygen Delivery Oxygen Flow Rate 05/07/24 12:00 05/07/24 14:22 Temperature 36.8 C Pulse Rate 82 105 H Respiratory Rate 22 H Blood Pressure 129/54 L Pulse Oximetry 93 Oxygen Delivery Oxygen Flow Rate Intake/Output Intake/Output: Intake & Output 05/04/24 05/05/24 05/06/24 05/07/24 23:59 23:59 23:59 23:59 Intake Total 2162.7 1225.0 1711.7 182.4 Output Total 650 850 700 300 Balance 1512.7 375.0 1011.7 -117.6 Meds/Results Medications: Active Medications Generic Name Dose Route Start Last Admin Trade Name Freq PRN Reason Stop Dose Admin Acetaminophen 650 mg 05/03/24 12:48 Acetaminophen 325 Mg Tablet PO Q6H PRN Mild Pain (1-5) Or Fever Hydrocodone Bitart/Acetaminophen 1 tab 05/03/24 12:48 05/06/24 20:26 Hydrocodone/Acetaminophen (*Crx) 5-325 Mg Tablet PO 1 tab Q6H PRN Administration Pain Rated 6 or Greater Albuterol/Ipratropium 3 ml 05/06/24 20:00 05/07/24 09:05 Ipratropium 0.5 Mg/Albuterol Sulfate 2.5 Mg Ampul.Neb 3 Ml INHALATION 3 ml Q6HRT MELISSA Administration Amitriptyline HCl 30 mg 05/02/24 21:00 05/06/24 20:26 Amitriptyline Hcl 10 Mg Tablet PO 30 mg HS MELISSA Administration Atorvastatin Calcium 40 mg 05/03/24 09:00 05/07/24 09:31 Atorvastatin 40 Mg Tablet PO 40 mg DAILY MELISSA Administration Cyanocobalamin 2,500 mcg 05/03/24 09:00 05/07/24 09:31 Cyanocobalamin 500 Mcg Tablet PO 2,500 mcg QAM MELISSA Administration Dextrose 12.5 gm 05/02/24 13:48 Dextrose 50% 25 Gm/50 Ml Syringe IV PUSH PRN PRN Hypoglycemia Protocol Glucagon 1 mg 05/02/24 13:48 Glucagon For Inj 1 Mg Vial IM PRN PRN Hypoglycemia Protocol Glucose 15 gm 05/02/24 13:48 Glucose Oral Gel 15 Gm Of Glucse In 37.5 Gm Tube PO PRN PRN Hypoglycemia Protocol Piperacillin/Tazobactam/Dextrose 3.375 gm in 50 mls @ 100 mls/hr 05/02/24 12:00 05/07/24 14:21 Zosyn 3.375 Gm/Ns 50 Ml IVPB 100 mls/hr Q6HR MELISSA Administration Dextrose 1,000 mls @ 100 mls/hr 05/02/24 13:48 Dextrose 5% 1,000 Ml IVPB PRN PRN Hypoglycemia Protocol Diltiazem HCl 100 mg in 100 mls @ 7.5 mls/hr 05/05/24 22:25 05/07/24 11:11 Cardizem 100 Mg/100 Ml IV CONT 7.5 mg/hr .[id number] MELISSA 7.5 mls/hr Administration Protocol 7.5 MG/HR Insulin Aspart 3 - 6 units 05/02/24 17:00 05/07/24 13:14 Insulin Aspart (*Bkc) 100 Units/Ml SUB-Q Not Given TIDWM MELISSA Protocol Levothyroxine Sodium 25 mcg 05/03/24 06:30 05/07/24 06:46 Levothyroxine Sodium 25 Mcg Tablet PO 25 mcg DAILY@0630 MELISSA Administration Metoprolol Tartrate 50 mg 05/04/24 18:00 05/07/24 14:22 Metoprolol Tartrate 50 Mg Tab PO 50 mg Q6HR MELISSA Administration Nitroglycerin 0.4 mg 05/02/24 13:50 Nitroglycerin Sl 0.4 Mg Tablet SUBLINGUAL Q5M PRN chest pain Ondansetron HCl 4 mg 05/02/24 03:45 Ondansetron Inj 4 Mg/2 Ml Vial IV PUSH Q4H PRN Nausea Pantoprazole Sodium 40 mg 05/03/24 09:00 05/07/24 09:31 Pantoprazole 40 Mg Tablet PO 40 mg QAM MELISSA Administration Ranolazine 1,000 mg 05/04/24 18:00 05/07/24 06:46 Ranolazine 500 Mg Tab.Er.12h PO 1,000 mg Q12H MELISSA Administration Radiology Results: ITS Impressions Chest X-Ray 05/01/24 20:44 IMPRESSION: 1. Mild atelectasis at right lung base. 2. Cardiomegaly. Abdomen/Pelvis CT 05/02/24 06:27 IMPRESSION: 1. Acute cholecystitis. Upper Quadrant Ultrasound 05/02/24 13:50 IMPRESSION: 1. Acute cholecystitis. Head CT 05/05/24 10:51 IMPRESSION: 1. Stable moderate nonspecific cerebral white matter disease, which likely represents chronic small vessel ischemic disease. Head/Neck CTA 05/05/24 12:19 IMPRESSION: 1. Moderate nonspecific cerebral white matter disease, which likely represents chronic small vessel ischemic disease. 2. No aneurysm or significant intracranial arterial stenosis. 3. 0% stenosis of the proximal internal carotid arteries relative to normal distal artery lumen diameters (NASCET criteria). Chest/Abdomen/Pelvis CT 05/05/24 15:08 IMPRESSION: 1. Worsened acute cholecystitis. 2. Small right pleural effusion. Cholecystostomy 05/06/24 15:15 IMPRESSION: 1. Successful ultrasound-guided cholecystostomy tube placement. 2. 8 mm clear, orange bile was sent for aerobic and anaerobic cultures. 3. The catheter will be managed by Dr. Mckenzie. A catheter cholangiogram may be performed not less than 48 hours after tube placement if clinically indicated to assess cystic duct patency. If cholecystectomy is not eventually performed and the infectious episode has resolved, the tube may be removed over a guidewire, preferably not less than 3 weeks after placement to allow time for a mature catheter tract to form to prevent bile leakage and peritonitis. Labs Labs: Laboratory Results - last 24 hr 05/06/24 05/06/24 05/06/24 15:23 20:08 22:10 WBC RBC Hgb Hct MCV MCH MCHC RDW Plt Count MPV Immature Gran % (Auto) Neut % (Auto) Lymph % (Auto) [place] % (Auto) Eos % (Auto) Baso % (Auto) Lymph # (Auto) [place] # (Auto) Eos # (Auto) Baso # (Auto) Abs Immat Gran (auto) Absolute Neuts (auto) Absolute Nucleated RBC Total Counted Neutrophils % (Manual) Band Neutrophils % Lymphocytes % (Manual) Monocytes % (Manual) Nucleated RBC % Abs Neuts (Manual) Abs Lymphs (Manual) Abs Monocytes (Manual) Platelet Estimate Schistocytes Sodium Potassium Chloride Carbon Dioxide Anion Gap BUN Creatinine Estim Creat Clear Calc Estimated GFR Glucose POC Capillary Glucose 112 H 138 H Calcium Magnesium Total Bilirubin AST ALT Alkaline Phosphatase Total Protein Albumin Influenza A (RT-PCR) Negative Influenza B (RT-PCR) Negative RSV (RT-PCR) Negative SARS-CoV-2 RNA (RT-PCR) Negative 05/07/24 05/07/24 05/07/24 04:44 07:25 11:02 WBC 7.5 RBC 3.33 L Hgb 10.1 L Hct 31.0 L MCV 93.1 MCH 30.3 MCHC 32.6 RDW 15.0 H Plt Count 142 L MPV 10.5 H Immature Gran % (Auto) Not Reportable Neut % (Auto) Not Reportable Lymph % (Auto) Not Reportable [place] % (Auto) Not Reportable Eos % (Auto) Not Reportable Baso % (Auto) Not Reportable Lymph # (Auto) Not Reportable [place] # (Auto) Not Reportable Eos # (Auto) Not Reportable Baso # (Auto) Not Reportable Abs Immat Gran (auto) Not Reportable Absolute Neuts (auto) Not Reportable Absolute Nucleated RBC Not Reportable Total Counted 100 Neutrophils % (Manual) 82 H Band Neutrophils % 8 H Lymphocytes % (Manual) 7.0 L Monocytes % (Manual) 3 Nucleated RBC % Not Reportable Abs Neuts (Manual) 6.75 Abs Lymphs (Manual) 0.52 L Abs Monocytes (Manual) 0.22 Platelet Estimate Slightly decreased Schistocytes None seen Sodium 137 Potassium 3.7 Chloride 105 Carbon Dioxide 23 Anion Gap 9 BUN 32 H Creatinine 0.70 Estim Creat Clear Calc 52 Estimated GFR > 60 Glucose 114 H POC Capillary Glucose 100 171 H Calcium 8.8 Magnesium 2.0 Total Bilirubin 0.7 AST 22 ALT 18 Alkaline Phosphatase 83 Total Protein 6.0 L Albumin 2.6 L Influenza A (RT-PCR) Influenza B (RT-PCR) RSV (RT-PCR) SARS-CoV-2 RNA (RT-PCR)
[2024-05-07] MEDS: FUROSEMIDE INJ 40 MG/4 ML VIAL IV PUSH (16:20)
[2024-05-07 16:43] LABS: Glucose Point of Care 116 mg/dl (65-105)
--- NOTE | 2024-05-07 16:46 | PCSTNOTE ---
Please refer to the Bedside Swallow Evaluation in the EMR. Please note, silent aspiration cannot be ruled out at bedside.
[2024-05-07 20:49] LABS: Glucose Point of Care 124 mg/dl (65-105)
[2024-05-07] MEDS: AMITRIPTYLINE HCL 10 MG TABLET 30 MG PO (21:33)
[2024-05-08] VITALS (31 sets, daily range): BP systolic 116–143; BP diastolic 53–81; PULSE 67–122; RESP 16–22; TEMP 36.4–37.1; O2SAT 90–100
[2024-05-08] MEDS: PIPERACILLN/TAZ 3.375GM/NS50ML 3.375 GM/50 ML BAG IVPB ×5 (01:00→23:52)
[2024-05-08] MEDS: METOPROLOL TARTRATE 50 MG TAB PO ×5 (01:00→23:51)
[2024-05-08] MEDS: IPRATROPIUM 0.5 MG/ALBUTEROL SULFATE 2.5 MG AMPUL.NEB 3 ML INHALATION ×4 (03:03→20:14)
[2024-05-08 05:14] LABS: Basophils Percent Auto 0.4 % (0.2-1.2); Eosinophils Absolute Auto 0.1 K/mm3 (0-0.3); Eosinophils Percent Auto 1.3 % (0-4.4); Hematocrit 30.8 % (37.0-47.0); Hemoglobin 10.3 g/dL (12.0-15.0); Immature Granulocyte Absolute 0.24 K/mm3 (0.00-0.031); Immature Granulocyte Percent A 3.4 % (0-0.5); Lymphocytes Percent Auto 8.4 % (18.3-44.2); Mean Corpuscular HGB Conc 33.4 g/dl (32-36); Mean Corpuscular Hemoglobin 30.6 pg (26-34); Mean Corpuscular Volume 91.4 fl (80-100); Mean Platelet Volume 10.3 fl (7.4-10.4); Monocytes Absolute Auto 0.3 K/mm3 (0.1-0.6); Monocytes Percent Auto 4.5 % (2.6-8.5); Neutrophils Absolute Auto 5.9 K/mm3 (1.3-6.7); Platelet Count Result 144 k/mm3 (150-375); Red Blood Count 3.37 M/mm3 (4.2-5.4); Red Cell Distribution Width 14.9 % (11.5-14.5); White Blood Count 7.1 K/mm3 (4.5-10.0)
[2024-05-08 05:32] LABS: Alanine Aminotransferase 19 U/L (6-35); Albumin Level 2.6 g/dL (3.5-5.1); Alkaline Phosphatase 82 U/L (38-126); Anion Gap 5 mmol/L (4-12); Aspartate Amino Transferase 25 U/L (14-36); Bilirubin,Total 0.7 mg/dL (0.2-1.3); Blood Urea Nitrogen 27 mg/dL (7-17); Calcium 8.4 mg/dL (8.4-10.2); Carbon Dioxide 28 mmol/L (22-30); Chloride 103 mmol/L (98-107); Estimated CRCL calculation 56 ml/min; Estimated Glomerular Filt Rate > 60; Glucose 116 mg/dL (65-110); Magnesium 1.6 mg/dL (1.6-2.3); Sodium 136 mmol/L (137-145)
[2024-05-08] MEDS: RANOLAZINE 500 MG TAB.ER.12H 1000 MG PO ×2 (07:00→17:50)
[2024-05-08] MEDS: LEVOTHYROXINE SODIUM 25 MCG TABLET PO (07:00)
[2024-05-08 07:44] LABS: Glucose Point of Care 140 mg/dl (65-105)
[2024-05-08] MEDS: POTASSIUM CHLORIDE 20 MEQ ER TABLET 40 MEQ PO (10:09)
[2024-05-08] MEDS: CYANOCOBALAMIN 500 MCG TABLET 2500 MCG PO (10:11)
[2024-05-08] MEDS: APIXABAN 5 MG TABLET PO ×2 (10:12→20:25)
[2024-05-08] MEDS: PANTOPRAZOLE 40 MG TABLET PO (10:12)
[2024-05-08] MEDS: ATORVASTATIN 40 MG TABLET PO (10:12)
--- NOTE | 2024-05-08 11:18 | PM.PNCARD ---
Progress Note: A&P Assessment and Plan (1) Coronary artery disease: Code(s): I25.10 - Atherosclerotic heart disease of [place] coronary artery without angina pectoris Status: Acute (2) Atrial fibrillation: Code(s): I48.91 - Unspecified atrial fibrillation Status: Acute (3) Mixed hyperlipidemia: Code(s): E78.2 - Mixed hyperlipidemia Status: Acute Plan 84-year-old woman with CAD and hypertension presented with abdominal pain found to have acute cholecystitis status post cholecystostomy tube who also has stable angina and now also found to have atrial fibrillation with rapid ventricular rate Chest pain -troponin ruled out for acs -TTE 1. Left ventricular chamber dimension is normal. 2. Left ventricular systolic function is normal, estimated at 55-60%. 3. There is mildly increased left ventricular wall thickness. 4. Right ventricular systolic function is normal. 5. Left atrial chamber dimension is moderately enlarged. 6. There is mild tricuspid valve regurgitation. Paroxysmal atrial fibrillation with rapid ventricular rate -spontaneously converted to sinus rhythm -Continue metoprolol 50mg q6h. Can shift to long-acting metoprolol prior to discharge -Per surgery, ok to start DOAC. Started on apixaban 5mg b.i.d. Hyperlipidemia -continue atorvastatin 40 mg every evening Shortness of breath -Improved with IV furosemide yesterday. Cardiology will sign off please call with any questions. Subjective Date/time seen: 05/08/24 11:18 Interval history: Cardiology follow up visit for atrial fibrillation Date of service 05/06/2024: She has symptoms difficulty speaking due to dry mouth. Denies any chest pain or shortness of breath. Date of service 05/07/2024: She spontaneously converted to sinus rhythm and remains in sinus rhythm now. She has some shortness of breath. Denies any chest pain. She is having some problems swallowing, therefore she is going to undergo a swallow study today. 05/08/2024: She feels better today. Remains in sinus rhythm. Review of Systems Constitutional: Constitutional: Denies body ache(s) Cardiovascular: Cardiovascular: Reports as per HPI and Denies chest pain Respiratory: Respiratory: Reports as per HPI Exam Const: General: comfortable, no acute distress and alert Orientation/consciousness: patient oriented x3 HENMT: Mouth: Yes dry mucous membranes Eyes: EOM: EOMs intact bilaterally Neck: Neck: no JVD Resp: Effort & Inspection: normal respiratory effort Auscultation: clear to auscultation bilaterally Cardio: Rate: regular rate Rhythm: regular rhythm Extrem: General: no pedal edema Other: mild bilateral pretibial edema Psych: Mental Status: mental status grossly normal Objective Data Vital Signs Vital Signs: Vital Signs - 24 hr 05/07/24 12:00 05/07/24 12:00 05/07/24 14:00 Temperature 36.8 C Pulse Rate 82 83 84 Respiratory Rate 22 H Blood Pressure 129/54 L Pulse Oximetry 93 Oxygen Delivery 05/07/24 14:22 05/07/24 15:53 05/07/24 16:00 Temperature Pulse Rate 105 H 86 89 Respiratory Rate 18 Blood Pressure Pulse Oximetry Oxygen Delivery 05/07/24 16:00 05/07/24 16:07 05/07/24 18:00 Temperature 36.5 C Pulse Rate 4 L 87 87 Respiratory Rate 24 H 18 Blood Pressure 122/65 Pulse Oximetry 91 Oxygen Delivery 05/07/24 18:00 05/07/24 18:19 05/07/24 19:49 Temperature 37.1 C 37.1 C Pulse Rate 80 86 80 Respiratory Rate 18 18 Blood Pressure 118/64 118/64 Pulse Oximetry 92 92 Oxygen Delivery 05/07/24 20:00 05/07/24 20:00 05/07/24 20:57 Temperature Pulse Rate 79 79 84 Respiratory Rate 18 17 Blood Pressure Pulse Oximetry 92 Oxygen Delivery Room Air 05/07/24 21:03 05/07/24 21:45 05/07/24 22:00 Temperature 37.0 C Pulse Rate 82 82 78 Respiratory Rate 17 18 Blood Pressure 113/54 L Pulse Oximetry 92 Oxygen Delivery 05/07/24 23:40 05/07/24 23:41 05/08/24 00:00 Temperature 36.9 C Pulse Rate 75 75 76 Respiratory Rate 18 18 Blood Pressure 116/53 L Pulse Oximetry 92 90 Oxygen Delivery Room Air 05/08/24 01:00 05/08/24 02:00 05/08/24 03:03 Temperature 36.9 C Pulse Rate 77 83 86 Respiratory Rate 18 17 Blood Pressure 126/58 L Pulse Oximetry 92 Oxygen Delivery 05/08/24 03:15 05/08/24 03:53 05/08/24 04:00 Temperature 36.7 C Pulse Rate 76 81 76 Respiratory Rate 17 19 Blood Pressure 121/81 Pulse Oximetry 92 Oxygen Delivery 05/08/24 04:00 05/08/24 05:59 05/08/24 06:59 Temperature 36.5 C Pulse Rate 76 122 H 80 Respiratory Rate 19 18 Blood Pressure 119/59 L Pulse Oximetry 92 92 Oxygen Delivery Room Air 05/08/24 07:55 05/08/24 08:00 05/08/24 08:46 Temperature 37.1 C Pulse Rate 76 73 73 Respiratory Rate 22 H 20 Blood Pressure 116/53 L Pulse Oximetry 92 92 Oxygen Delivery Room Air 05/08/24 08:46 05/08/24 09:00 05/08/24 10:00 Temperature Pulse Rate 73 74 83 Respiratory Rate 20 20 Blood Pressure Pulse Oximetry Oxygen Delivery Intake/Output Intake/Output: Intake & Output 05/05/24 05/06/24 05/07/24 05/08/24 23:59 23:59 23:59 23:59 Intake Total 1225.0 1711.7 1292.4 100 Output Total 076 560 0808 1650 Balance 375.0 1011.7 -817.6 -1550 Meds/Results Medications: Active Medications Generic Name Dose Route Start Last Admin Trade Name Freq PRN Reason Stop Dose Admin Acetaminophen 650 mg 05/03/24 12:48 Acetaminophen 325 Mg Tablet PO Q6H PRN Mild Pain (1-5) Or Fever Hydrocodone Bitart/Acetaminophen 1 tab 05/03/24 12:48 05/06/24 20:26 Hydrocodone/Acetaminophen (*Crx) 5-325 Mg Tablet PO 1 tab Q6H PRN Administration Pain Rated 6 or Greater Albuterol/Ipratropium 3 ml 05/06/24 20:00 05/08/24 08:46 Ipratropium 0.5 Mg/Albuterol Sulfate 2.5 Mg Ampul.Neb 3 Ml INHALATION 3 ml Q6HRT MELISSA Administration Amitriptyline HCl 30 mg 05/02/24 21:00 05/07/24 21:33 Amitriptyline Hcl 10 Mg Tablet PO 30 mg HS MELISSA Administration Apixaban 5 mg 05/08/24 09:00 05/08/24 10:12 Apixaban 5 Mg Tablet PO 5 mg Q12HR MELISSA Administration Atorvastatin Calcium 40 mg 05/03/24 09:00 05/08/24 10:12 Atorvastatin 40 Mg Tablet PO 40 mg DAILY MELISSA Administration Cyanocobalamin 2,500 mcg 05/03/24 09:00 05/08/24 10:11 Cyanocobalamin 500 Mcg Tablet PO 2,500 mcg QAM MELISSA Administration Dextrose 12.5 gm 05/02/24 13:48 Dextrose 50% 25 Gm/50 Ml Syringe IV PUSH PRN PRN Hypoglycemia Protocol Glucagon 1 mg 05/02/24 13:48 Glucagon For Inj 1 Mg Vial IM PRN PRN Hypoglycemia Protocol Glucose 15 gm 05/02/24 13:48 Glucose Oral Gel 15 Gm Of Glucse In 37.5 Gm Tube PO PRN PRN Hypoglycemia Protocol Piperacillin/Tazobactam/Dextrose 3.375 gm in 50 mls @ 100 mls/hr 05/02/24 12:00 05/08/24 06:00 Zosyn 3.375 Gm/Ns 50 Ml IVPB 100 mls/hr Q6HR MELISSA Administration Dextrose 1,000 mls @ 100 mls/hr 05/02/24 13:48 Dextrose 5% 1,000 Ml IVPB PRN PRN Hypoglycemia Protocol Insulin Aspart 3 - 6 units 05/02/24 17:00 05/08/24 10:09 Insulin Aspart (*Bkc) 100 Units/Ml SUB-Q Not Given TIDWM [facility] Protocol Levothyroxine Sodium 25 mcg 05/03/24 06:30 05/08/24 07:00 Levothyroxine Sodium 25 Mcg Tablet PO 25 mcg DAILY@0630 MELISSA Administration Metoprolol Tartrate 50 mg 05/04/24 18:00 05/08/24 06:59 Metoprolol Tartrate 50 Mg Tab PO 50 mg Q6HR MELISSA Administration Nitroglycerin 0.4 mg 05/02/24 13:50 Nitroglycerin Sl 0.4 Mg Tablet SUBLINGUAL Q5M PRN chest pain Ondansetron HCl 4 mg 05/02/24 03:45 Ondansetron Inj 4 Mg/2 Ml Vial IV PUSH Q4H PRN Nausea Pantoprazole Sodium 40 mg 05/03/24 09:00 05/08/24 10:12 Pantoprazole 40 Mg Tablet PO 40 mg QAM MELISSA Administration Ranolazine 1,000 mg 05/04/24 18:00 05/08/24 07:00 Ranolazine 500 Mg Tab.Er.12h PO 1,000 mg Q12H MELISSA Administration Radiology Results: ITS Impressions Chest X-Ray 05/01/24 20:44 IMPRESSION: 1. Mild atelectasis at right lung base. 2. Cardiomegaly. Abdomen/Pelvis CT 05/02/24 06:27 IMPRESSION: 1. Acute cholecystitis. Upper Quadrant Ultrasound 05/02/24 13:50 IMPRESSION: 1. Acute cholecystitis. Head CT 05/05/24 10:51 IMPRESSION: 1. Stable moderate nonspecific cerebral white matter disease, which likely represents chronic small vessel ischemic disease. Head/Neck CTA 05/05/24 12:19 IMPRESSION: 1. Moderate nonspecific cerebral white matter disease, which likely represents chronic small vessel ischemic disease. 2. No aneurysm or significant intracranial arterial stenosis. 3. 0% stenosis of the proximal internal carotid arteries relative to normal distal artery lumen diameters (NASCET criteria). Chest/Abdomen/Pelvis CT 05/05/24 15:08 IMPRESSION: 1. Worsened acute cholecystitis. 2. Small right pleural effusion. Cholecystostomy 05/06/24 15:15 IMPRESSION: 1. Successful ultrasound-guided cholecystostomy tube placement. 2. 8 mm clear, orange bile was sent for aerobic and anaerobic cultures. 3. The catheter will be managed by Dr. Mckenzie. A catheter cholangiogram may be performed not less than 48 hours after tube placement if clinically indicated to assess cystic duct patency. If cholecystectomy is not eventually performed and the infectious episode has resolved, the tube may be removed over a guidewire, preferably not less than 3 weeks after placement to allow time for a mature catheter tract to form to prevent bile leakage and peritonitis. Labs Labs: Laboratory Results - last 24 hr 05/07/24 05/07/24 05/07/24 11:02 15:57 20:41 WBC RBC Hgb Hct MCV MCH MCHC RDW Plt Count MPV Immature Gran % (Auto) Neut % (Auto) Lymph % (Auto) [place] % (Auto) Eos % (Auto) Baso % (Auto) Lymph # (Auto) [place] # (Auto) Eos # (Auto) Baso # (Auto) Abs Immat Gran (auto) Absolute Neuts (auto) Absolute Nucleated RBC Nucleated RBC % Sodium Potassium Chloride Carbon Dioxide Anion Gap BUN Creatinine Estim Creat Clear Calc Estimated GFR Glucose POC Capillary Glucose 171 H 116 H 124 H Calcium Magnesium Total Bilirubin AST ALT Alkaline Phosphatase Total Protein Albumin 05/08/24 05/08/24 05:02 07:24 WBC 7.1 RBC 3.37 L Hgb 10.3 L Hct 30.8 L MCV 91.4 MCH 30.6 MCHC 33.4 RDW 14.9 H Plt Count 144 L MPV 10.3 Immature Gran % (Auto) 3.4 H Neut % (Auto) 82.0 H Lymph % (Auto) 8.4 L [place] % (Auto) 4.5 Eos % (Auto) 1.3 Baso % (Auto) 0.4 Lymph # (Auto) 0.60 L [place] # (Auto) 0.3 Eos # (Auto) 0.1 Baso # (Auto) 0.0 Abs Immat Gran (auto) 0.24 H Absolute Neuts (auto) 5.9 Absolute Nucleated RBC 0.000 Nucleated RBC % 0.0 Sodium 136 L Potassium 3.0 L Chloride 103 Carbon Dioxide 28 Anion Gap 5 BUN 27 H Creatinine 0.63 L Estim Creat Clear Calc 56 Estimated GFR > 60 Glucose 116 H POC Capillary Glucose 140 H Calcium 8.4 Magnesium 1.6 Total Bilirubin 0.7 AST 25 ALT 19 Alkaline Phosphatase 82 Total Protein 6.0 L Albumin 2.6 L
--- NOTE | 2024-05-08 14:48 | PM.PNGS ---
Progress Note: A&P Assessment and Plan (1) Acute cholecystitis: Code(s): K81.0 - Acute cholecystitis Status: Acute Assessment and Plan: much improved, cont drain and abx, ok to dc home c drain when medically stable, low fat diet Subjective Subjective Date/Time Seen: 05/08/24 14:48 Interval history: feels much better, mentation back to baseline Review of Systems Review of Systems: All systems reviewed & are unremarkable except as noted in HPI and below Exam Const: General: cooperative, comfortable, no acute distress and ill appearing Resp: Auscultation: diminished lung sounds Cardio: Rate: regular rate Rhythm: regular rhythm GI: Inspection: normal to inspection GI Palp: No abdominal tenderness Other: calvin drain c thick bilious output Objective Data Vital Signs Vital Signs: Vital Signs - 24 hr 05/07/24 15:53 05/07/24 16:00 05/07/24 16:00 Temperature 36.5 C Pulse Rate 86 89 4 L Respiratory Rate 18 24 H Blood Pressure 122/65 Pulse Oximetry 91 Oxygen Delivery 05/07/24 16:07 05/07/24 18:00 05/07/24 18:00 Temperature 37.1 C Pulse Rate 87 87 80 Respiratory Rate 18 18 Blood Pressure 118/64 Pulse Oximetry 92 Oxygen Delivery 05/07/24 18:19 05/07/24 19:49 05/07/24 20:00 Temperature 37.1 C Pulse Rate 86 80 79 Respiratory Rate 18 18 Blood Pressure 118/64 Pulse Oximetry 92 92 Oxygen Delivery Room Air 05/07/24 20:00 05/07/24 20:57 05/07/24 21:03 Temperature Pulse Rate 79 84 82 Respiratory Rate 17 17 Blood Pressure Pulse Oximetry Oxygen Delivery 05/07/24 21:45 05/07/24 22:00 05/07/24 23:40 Temperature 37.0 C Pulse Rate 82 78 75 Respiratory Rate 18 18 Blood Pressure 113/54 L Pulse Oximetry 92 92 Oxygen Delivery Room Air 05/07/24 23:41 05/08/24 00:00 05/08/24 01:00 Temperature 36.9 C Pulse Rate 75 76 77 Respiratory Rate 18 Blood Pressure 116/53 L Pulse Oximetry 90 Oxygen Delivery 05/08/24 02:00 05/08/24 03:03 05/08/24 03:15 Temperature 36.9 C Pulse Rate 83 86 76 Respiratory Rate 18 17 17 Blood Pressure 126/58 L Pulse Oximetry 92 Oxygen Delivery 05/08/24 03:53 05/08/24 04:00 05/08/24 04:00 Temperature 36.7 C Pulse Rate 81 76 76 Respiratory Rate 19 19 Blood Pressure 121/81 Pulse Oximetry 92 92 Oxygen Delivery Room Air 05/08/24 05:59 05/08/24 06:59 05/08/24 07:55 Temperature 36.5 C 37.1 C Pulse Rate 122 H 80 76 Respiratory Rate 18 22 H Blood Pressure 119/59 L 116/53 L Pulse Oximetry 92 92 Oxygen Delivery 05/08/24 08:00 05/08/24 08:46 05/08/24 08:46 Temperature Pulse Rate 73 73 73 Respiratory Rate 20 20 Blood Pressure Pulse Oximetry 92 Oxygen Delivery Room Air 05/08/24 09:00 05/08/24 10:00 05/08/24 11:47 Temperature 36.7 C Pulse Rate 74 83 83 Respiratory Rate 20 18 Blood Pressure 118/58 L Pulse Oximetry 92 Oxygen Delivery 05/08/24 12:00 05/08/24 13:41 05/08/24 13:59 Temperature Pulse Rate 82 80 78 Respiratory Rate 20 Blood Pressure Pulse Oximetry 94 Oxygen Delivery Room Air 05/08/24 13:59 05/08/24 14:11 Temperature Pulse Rate 78 78 Respiratory Rate 20 20 Blood Pressure Pulse Oximetry Oxygen Delivery Intake/Output Intake/Output: Intake & Output 05/05/24 05/06/24 05/07/24 05/08/24 23:59 23:59 23:59 23:59 Intake Total 1225.0 1711.7 1292.4 270 Output Total 443 877 5063 1650 Balance 375.0 1011.7 -817.6 -1380 Meds/Results Medications: Active Medications Generic Name Dose Route Start Last Admin Trade Name Freq PRN Reason Stop Dose Admin Acetaminophen 650 mg 05/03/24 12:48 Acetaminophen 325 Mg Tablet PO Q6H PRN Mild Pain (1-5) Or Fever Hydrocodone Bitart/Acetaminophen 1 tab 05/03/24 12:48 05/06/24 20:26 Hydrocodone/Acetaminophen (*Crx) 5-325 Mg Tablet PO 1 tab Q6H PRN Administration Pain Rated 6 or Greater Albuterol/Ipratropium 3 ml 05/06/24 20:00 05/08/24 13:58 Ipratropium 0.5 Mg/Albuterol Sulfate 2.5 Mg Ampul.Neb 3 Ml INHALATION 3 ml Q6HRT MELISSA Administration Amitriptyline HCl 30 mg 05/02/24 21:00 05/07/24 21:33 Amitriptyline Hcl 10 Mg Tablet PO 30 mg HS MELISSA Administration Apixaban 5 mg 05/08/24 09:00 05/08/24 10:12 Apixaban 5 Mg Tablet PO 5 mg Q12HR MELISSA Administration Atorvastatin Calcium 40 mg 05/03/24 09:00 05/08/24 10:12 Atorvastatin 40 Mg Tablet PO 40 mg DAILY MELISSA Administration Cyanocobalamin 2,500 mcg 05/03/24 09:00 05/08/24 10:11 Cyanocobalamin 500 Mcg Tablet PO 2,500 mcg QAM MELISSA Administration Dextrose 12.5 gm 05/02/24 13:48 Dextrose 50% 25 Gm/50 Ml Syringe IV PUSH PRN PRN Hypoglycemia Protocol Glucagon 1 mg 05/02/24 13:48 Glucagon For Inj 1 Mg Vial IM PRN PRN Hypoglycemia Protocol Glucose 15 gm 05/02/24 13:48 Glucose Oral Gel 15 Gm Of Glucse In 37.5 Gm Tube PO PRN PRN Hypoglycemia Protocol Piperacillin/Tazobactam/Dextrose 3.375 gm in 50 mls @ 100 mls/hr 05/02/24 12:00 05/08/24 13:42 Zosyn 3.375 Gm/Ns 50 Ml IVPB 100 mls/hr Q6HR MELISSA Administration Dextrose 1,000 mls @ 100 mls/hr 05/02/24 13:48 Dextrose 5% 1,000 Ml IVPB PRN PRN Hypoglycemia Protocol Insulin Aspart 3 - 6 units 05/02/24 17:00 05/08/24 12:50 Insulin Aspart (*Bkc) 100 Units/Ml SUB-Q Not Given TIDWM MELISSA Protocol Levothyroxine Sodium 25 mcg 05/03/24 06:30 05/08/24 07:00 Levothyroxine Sodium 25 Mcg Tablet PO 25 mcg DAILY@0630 MELISSA Administration Metoprolol Tartrate 50 mg 05/04/24 18:00 05/08/24 13:41 Metoprolol Tartrate 50 Mg Tab PO 50 mg Q6HR MELISSA Administration Nitroglycerin 0.4 mg 05/02/24 13:50 Nitroglycerin Sl 0.4 Mg Tablet SUBLINGUAL Q5M PRN chest pain Ondansetron HCl 4 mg 05/02/24 03:45 Ondansetron Inj 4 Mg/2 Ml Vial IV PUSH Q4H PRN Nausea Pantoprazole Sodium 40 mg 05/03/24 09:00 05/08/24 10:12 Pantoprazole 40 Mg Tablet PO 40 mg QAM MELISSA Administration Ranolazine 1,000 mg 05/04/24 18:00 05/08/24 07:00 Ranolazine 500 Mg Tab.Er.12h PO 1,000 mg Q12H MELISSA Administration Radiology Results: ITS Impressions Chest X-Ray 05/01/24 20:44 IMPRESSION: 1. Mild atelectasis at right lung base. 2. Cardiomegaly. Abdomen/Pelvis CT 05/02/24 06:27 IMPRESSION: 1. Acute cholecystitis. Upper Quadrant Ultrasound 05/02/24 13:50 IMPRESSION: 1. Acute cholecystitis. Head CT 05/05/24 10:51 IMPRESSION: 1. Stable moderate nonspecific cerebral white matter disease, which likely represents chronic small vessel ischemic disease. Head/Neck CTA 05/05/24 12:19 IMPRESSION: 1. Moderate nonspecific cerebral white matter disease, which likely represents chronic small vessel ischemic disease. 2. No aneurysm or significant intracranial arterial stenosis. 3. 0% stenosis of the proximal internal carotid arteries relative to normal distal artery lumen diameters (NASCET criteria). Chest/Abdomen/Pelvis CT 05/05/24 15:08 IMPRESSION: 1. Worsened acute cholecystitis. 2. Small right pleural effusion. Cholecystostomy 05/06/24 15:15 IMPRESSION: 1. Successful ultrasound-guided cholecystostomy tube placement. 2. 8 mm clear, orange bile was sent for aerobic and anaerobic cultures. 3. The catheter will be managed by Dr. Mckenzie. A catheter cholangiogram may be performed not less than 48 hours after tube placement if clinically indicated to assess cystic duct patency. If cholecystectomy is not eventually performed and the infectious episode has resolved, the tube may be removed over a guidewire, preferably not less than 3 weeks after placement to allow time for a mature catheter tract to form to prevent bile leakage and peritonitis. Labs Labs: Laboratory Results - last 24 hr 05/07/24 05/07/24 05/08/24 15:57 20:41 05:02 WBC 7.1 RBC 3.37 L Hgb 10.3 L Hct 30.8 L MCV 91.4 MCH 30.6 MCHC 33.4 RDW 14.9 H Plt Count 144 L MPV 10.3 Immature Gran % (Auto) 3.4 H Neut % (Auto) 82.0 H Lymph % (Auto) 8.4 L [place] % (Auto) 4.5 Eos % (Auto) 1.3 Baso % (Auto) 0.4 Lymph # (Auto) 0.60 L [place] # (Auto) 0.3 Eos # (Auto) 0.1 Baso # (Auto) 0.0 Abs Immat Gran (auto) 0.24 H Absolute Neuts (auto) 5.9 Absolute Nucleated RBC 0.000 Nucleated RBC % 0.0 Sodium 136 L Potassium 3.0 L Chloride 103 Carbon Dioxide 28 Anion Gap 5 BUN 27 H Creatinine 0.63 L Estim Creat Clear Calc 56 Estimated GFR > 60 Glucose 116 H POC Capillary Glucose 116 H 124 H Calcium 8.4 Magnesium 1.6 Total Bilirubin 0.7 AST 25 ALT 19 Alkaline Phosphatase 82 Total Protein 6.0 L Albumin 2.6 L 05/08/24 07:24 WBC RBC Hgb Hct MCV MCH MCHC RDW Plt Count MPV Immature Gran % (Auto) Neut % (Auto) Lymph % (Auto) [place] % (Auto) Eos % (Auto) Baso % (Auto) Lymph # (Auto) [place] # (Auto) Eos # (Auto) Baso # (Auto) Abs Immat Gran (auto) Absolute Neuts (auto) Absolute Nucleated RBC Nucleated RBC % Sodium Potassium Chloride Carbon Dioxide Anion Gap BUN Creatinine Estim Creat Clear Calc Estimated GFR Glucose POC Capillary Glucose 140 H Calcium Magnesium Total Bilirubin AST ALT Alkaline Phosphatase Total Protein Albumin
[2024-05-08 15:12] LABS: Glucose Point of Care 125 mg/dl (65-105)
--- NOTE | 2024-05-08 15:12 | PM.IMPN ---
Progress Note: A&P Assessment and Plan (1) Altered mental status: Code(s): R41.82 - Altered mental status, unspecified Status: Acute Assessment and Plan: Patient with AMS 05/05/2024. Concern for CVA given recent AFib and on heparin. Heparin drip stopped. Stat CT brain showing no bleed or acute findings. CTA head/neck showing no acute findings. WBC trending down but now having fevers and PCT 3.[address] Ch/A/P showing worsening acute cholecystitis. Discussed with GenSurg. Status post cholecystostomy tube placement 05/06/2024 Bile was sent for aerobic anaerobic culture which is growing g variable bacilli. Await identification Remains on IV Zosyn Altered mental status improving (2) Atrial fibrillation: Code(s): I48.91 - Unspecified atrial fibrillation Status: Acute Assessment and Plan: Patient noted to have tachycardia and irregular rhythm. EKG (05/04) now showing AFib/RVR (HR 150), LAFB and borderline ST-T wave changes in the high lateral leads. Patient was moved to IMU and Diltiazem drip started. She remains on diltiazem drip Probably related to current GB infection/inflammation. [id number] at least 6. TSH normal on 04/23/24. Echo showing EF 55-60%, indeterminate diastolic fxn and mild MR Started Heparin drip but held related to above. Cards consult. Holding Cozaar given soft BP. Metoprolol added HR better controlled. Continue IV Diltiazem Converted to sinus rhythm On oral metoprolol switched to long-acting at prior to discharge Started on NOAC (3) Acute cholecystitis: Code(s): K81.0 - Acute cholecystitis Status: Acute Assessment and Plan: Patient presents with abdominal pain. CT scan showing distended GB with gallstones, wall thickening and surrounding fat stranding consistent with acute cholecystitis. RUQ US showing similar findings. Patient started on Zosyn. Started on clear liquid diet. General surgery consulted. Appreciate their input. Patient high risk with plan currently to treat conservatively. WBC better today but other inflammatory markers elevated. Continue IV abx. Status post cholecystostomy tube placement 05/06/2024 Continue supportive care. Bile culture has been sent. Growing g variable bacilli await identification (4) Essential hypertension: Code(s): I10 - Essential (primary) hypertension Status: Acute Assessment and Plan: Blood pressure soft at times Continue current medications. (5) Coronary artery disease: Code(s): I25.10 - Atherosclerotic heart disease of [place] coronary artery without angina pectoris Status: Acute Assessment and Plan: Patient with coronary disease. Continue Lipitor. She is not on metoprolol or aspirin. Renexa was on hold but resumed since no surgery planned. QTc okay. (6) Prediabetes: Code(s): R73.03 - Prediabetes Status: Acute Assessment and Plan: Glucose remains well controlled. Continue AccuCheks covering with sliding scale. Hypoglycemia protocol available as needed. Continue to follow Plan Urine retention - Alvarez placed. UOP better. Holding IV fluids. Voiding trial when more ambulatory. DVT prophylaxis -NOAC Code status - full Subjective Date/time seen: 05/08/24 15:12 Interval history: No overnight events. Denies any new complaint. Still feels tired. Less confused. Review of Systems Review of Systems: All systems reviewed & are unremarkable except as noted in HPI and below Exam Narrative: Gen - NARD Chest - left base crackles and decreased BS in the right base o/w clear. CV - irregular. Tele showing AFib with improved rate Abd - Soft, distended nontender no guarding or rebound Ext - No pedal edema Neuro -awake and alert, follows commands. Generalized weakness Skin - Warm and dry Objective Data Vital Signs Vital Signs: Vital Signs - 24 hr 05/07/24 15:53 05/07/24 16:00 05/07/24 16:00 Temperature 97.7 F Pulse Rate 86 89 4 L Respiratory Rate 18 24 H Blood Pressure 122/65 Pulse Oximetry 91 Oxygen Delivery 05/07/24 16:07 05/07/24 18:00 05/07/24 18:00 Temperature 98.7 F Pulse Rate 87 87 80 Respiratory Rate 18 18 Blood Pressure 118/64 Pulse Oximetry 92 Oxygen Delivery 05/07/24 18:19 05/07/24 19:49 05/07/24 20:00 Temperature 98.7 F Pulse Rate 86 80 79 Respiratory Rate 18 18 Blood Pressure 118/64 Pulse Oximetry 92 92 Oxygen Delivery Room Air 05/07/24 20:00 05/07/24 20:57 05/07/24 21:03 Temperature Pulse Rate 79 84 82 Respiratory Rate 17 17 Blood Pressure Pulse Oximetry Oxygen Delivery 05/07/24 21:45 05/07/24 22:00 05/07/24 23:40 Temperature 98.6 F Pulse Rate 82 78 75 Respiratory Rate 18 18 Blood Pressure 113/54 L Pulse Oximetry 92 92 Oxygen Delivery Room Air 05/07/24 23:41 05/08/24 00:00 05/08/24 01:00 Temperature 98.5 F Pulse Rate 75 76 77 Respiratory Rate 18 Blood Pressure 116/53 L Pulse Oximetry 90 Oxygen Delivery 05/08/24 02:00 05/08/24 03:03 05/08/24 03:15 Temperature 98.5 F Pulse Rate 83 86 76 Respiratory Rate 18 17 17 Blood Pressure 126/58 L Pulse Oximetry 92 Oxygen Delivery 05/08/24 03:53 05/08/24 04:00 05/08/24 04:00 Temperature 98.0 F Pulse Rate 81 76 76 Respiratory Rate 19 19 Blood Pressure 121/81 Pulse Oximetry 92 92 Oxygen Delivery Room Air 05/08/24 05:59 05/08/24 06:59 05/08/24 07:55 Temperature 97.7 F 98.7 F Pulse Rate 122 H 80 76 Respiratory Rate 18 22 H Blood Pressure 119/59 L 116/53 L Pulse Oximetry 92 92 Oxygen Delivery 05/08/24 08:00 05/08/24 08:46 05/08/24 08:46 Temperature Pulse Rate 73 73 73 Respiratory Rate 20 20 Blood Pressure Pulse Oximetry 92 Oxygen Delivery Room Air 05/08/24 09:00 05/08/24 10:00 05/08/24 11:47 Temperature 98.1 F Pulse Rate 74 83 83 Respiratory Rate 20 18 Blood Pressure 118/58 L Pulse Oximetry 92 Oxygen Delivery 05/08/24 12:00 05/08/24 13:41 05/08/24 13:59 Temperature Pulse Rate 82 80 78 Respiratory Rate 20 Blood Pressure Pulse Oximetry 94 Oxygen Delivery Room Air 05/08/24 13:59 05/08/24 14:11 Temperature Pulse Rate 78 78 Respiratory Rate 20 20 Blood Pressure Pulse Oximetry Oxygen Delivery Intake/Output Intake/Output: Intake & Output 05/05/24 05/06/24 05/07/24 05/08/24 23:59 23:59 23:59 23:59 Intake Total 1225.0 1711.7 1292.4 270 Output Total 610 388 9323 1650 Balance 375.0 1011.7 -597.6 -1380 Meds/Results Medications: Active Medications Generic Name Dose Route Start Last Admin Trade Name Freq PRN Reason Stop Dose Admin Acetaminophen 650 mg 05/03/24 12:48 Acetaminophen 325 Mg Tablet PO Q6H PRN Mild Pain (1-5) Or Fever Hydrocodone Bitart/Acetaminophen 1 tab 05/03/24 12:48 05/06/24 20:26 Hydrocodone/Acetaminophen (*Crx) 5-325 Mg Tablet PO 1 tab Q6H PRN Administration Pain Rated 6 or Greater Albuterol/Ipratropium 3 ml 05/06/24 20:00 05/08/24 13:58 Ipratropium 0.5 Mg/Albuterol Sulfate 2.5 Mg Ampul.Neb 3 Ml INHALATION 3 ml Q6HRT MELISSA Administration Amitriptyline HCl 30 mg 05/02/24 21:00 05/07/24 21:33 Amitriptyline Hcl 10 Mg Tablet PO 30 mg HS MELISSA Administration Apixaban 5 mg 05/08/24 09:00 05/08/24 10:12 Apixaban 5 Mg Tablet PO 5 mg Q12HR MELISSA Administration Atorvastatin Calcium 40 mg 05/03/24 09:00 05/08/24 10:12 Atorvastatin 40 Mg Tablet PO 40 mg DAILY MELISSA Administration Cyanocobalamin 2,500 mcg 05/03/24 09:00 05/08/24 10:11 Cyanocobalamin 500 Mcg Tablet PO 2,500 mcg QAM MELISSA Administration Dextrose 12.5 gm 05/02/24 13:48 Dextrose 50% 25 Gm/50 Ml Syringe IV PUSH PRN PRN Hypoglycemia Protocol Glucagon 1 mg 05/02/24 13:48 Glucagon For Inj 1 Mg Vial IM PRN PRN Hypoglycemia Protocol Glucose 15 gm 05/02/24 13:48 Glucose Oral Gel 15 Gm Of Glucse In 37.5 Gm Tube PO PRN PRN Hypoglycemia Protocol Piperacillin/Tazobactam/Dextrose 3.375 gm in 50 mls @ 100 mls/hr 05/02/24 12:00 05/08/24 13:42 Zosyn 3.375 Gm/Ns 50 Ml IVPB 100 mls/hr Q6HR MELISSA Administration Dextrose 1,000 mls @ 100 mls/hr 05/02/24 13:48 Dextrose 5% 1,000 Ml IVPB PRN PRN Hypoglycemia Protocol Insulin Aspart 3 - 6 units 05/02/24 17:00 05/08/24 12:50 Insulin Aspart (*Bkc) 100 Units/Ml SUB-Q Not Given TIDWM [facility] Protocol Levothyroxine Sodium 25 mcg 05/03/24 06:30 05/08/24 07:00 Levothyroxine Sodium 25 Mcg Tablet PO 25 mcg DAILY@0630 MELISSA Administration Metoprolol Tartrate 50 mg 05/04/24 18:00 05/08/24 13:41 Metoprolol Tartrate 50 Mg Tab PO 50 mg Q6HR MELISSA Administration Nitroglycerin 0.4 mg 05/02/24 13:50 Nitroglycerin Sl 0.4 Mg Tablet SUBLINGUAL Q5M PRN chest pain Ondansetron HCl 4 mg 05/02/24 03:45 Ondansetron Inj 4 Mg/2 Ml Vial IV PUSH Q4H PRN Nausea Pantoprazole Sodium 40 mg 05/03/24 09:00 05/08/24 10:12 Pantoprazole 40 Mg Tablet PO 40 mg QAM MELISSA Administration Ranolazine 1,000 mg 05/04/24 18:00 05/08/24 07:00 Ranolazine 500 Mg Tab.Er.12h PO 1,000 mg Q12H MELISSA Administration Radiology Results: ITS Impressions Chest X-Ray 05/01/24 20:44 IMPRESSION: 1. Mild atelectasis at right lung base. 2. Cardiomegaly. Abdomen/Pelvis CT 05/02/24 06:27 IMPRESSION: 1. Acute cholecystitis. Upper Quadrant Ultrasound 05/02/24 13:50 IMPRESSION: 1. Acute cholecystitis. Head CT 05/05/24 10:51 IMPRESSION: 1. Stable moderate nonspecific cerebral white matter disease, which likely represents chronic small vessel ischemic disease. Head/Neck CTA 05/05/24 12:19 IMPRESSION: 1. Moderate nonspecific cerebral white matter disease, which likely represents chronic small vessel ischemic disease. 2. No aneurysm or significant intracranial arterial stenosis. 3. 0% stenosis of the proximal internal carotid arteries relative to normal distal artery lumen diameters (NASCET criteria). Chest/Abdomen/Pelvis CT 05/05/24 15:08 IMPRESSION: 1. Worsened acute cholecystitis. 2. Small right pleural effusion. Cholecystostomy 05/06/24 15:15 IMPRESSION: 1. Successful ultrasound-guided cholecystostomy tube placement. 2. 8 mm clear, orange bile was sent for aerobic and anaerobic cultures. 3. The catheter will be managed by Dr. Mckenzie. A catheter cholangiogram may be performed not less than 48 hours after tube placement if clinically indicated to assess cystic duct patency. If cholecystectomy is not eventually performed and the infectious episode has resolved, the tube may be removed over a guidewire, preferably not less than 3 weeks after placement to allow time for a mature catheter tract to form to prevent bile leakage and peritonitis. Labs Labs: Laboratory Results - last 24 hr 05/07/24 05/07/24 05/08/24 15:57 20:41 05:02 WBC 7.1 RBC 3.37 L Hgb 10.3 L Hct 30.8 L MCV 91.4 MCH 30.6 MCHC 33.4 RDW 14.9 H Plt Count 144 L MPV 10.3 Immature Gran % (Auto) 3.4 H Neut % (Auto) 82.0 H Lymph % (Auto) 8.4 L [place] % (Auto) 4.5 Eos % (Auto) 1.3 Baso % (Auto) 0.4 Lymph # (Auto) 0.60 L [place] # (Auto) 0.3 Eos # (Auto) 0.1 Baso # (Auto) 0.0 Abs Immat Gran (auto) 0.24 H Absolute Neuts (auto) 5.9 Absolute Nucleated RBC 0.000 Nucleated RBC % 0.0 Sodium 136 L Potassium 3.0 L Chloride 103 Carbon Dioxide 28 Anion Gap 5 BUN 27 H Creatinine 0.63 L Estim Creat Clear Calc 56 Estimated GFR > 60 Glucose 116 H POC Capillary Glucose 116 H 124 H Calcium 8.4 Magnesium 1.6 Total Bilirubin 0.7 AST 25 ALT 19 Alkaline Phosphatase 82 Total Protein 6.0 L Albumin 2.6 L 05/08/24 07:24 WBC RBC Hgb Hct MCV MCH MCHC RDW Plt Count MPV Immature Gran % (Auto) Neut % (Auto) Lymph % (Auto) [place] % (Auto) Eos % (Auto) Baso % (Auto) Lymph # (Auto) [place] # (Auto) Eos # (Auto) Baso # (Auto) Abs Immat Gran (auto) Absolute Neuts (auto) Absolute Nucleated RBC Nucleated RBC % Sodium Potassium Chloride Carbon Dioxide Anion Gap BUN Creatinine Estim Creat Clear Calc Estimated GFR Glucose POC Capillary Glucose 140 H Calcium Magnesium Total Bilirubin AST ALT Alkaline Phosphatase Total Protein Albumin
[2024-05-08 16:24] LABS: Glucose Point of Care 98 mg/dl (65-105)
[2024-05-08] MEDS: FUROSEMIDE INJ 40 MG/4 ML VIAL 20 MG IV PUSH (18:33)
[2024-05-08 20:16] LABS: Glucose Point of Care 129 mg/dl (65-105)
[2024-05-08] MEDS: AMITRIPTYLINE HCL 10 MG TABLET 30 MG PO (20:25)
[2024-05-09] VITALS (24 sets, daily range): BP systolic 124–154; BP diastolic 54–67; PULSE 68–85; RESP 16–32; TEMP 36.4–36.9; O2SAT 92–96
[2024-05-09] MEDS: IPRATROPIUM 0.5 MG/ALBUTEROL SULFATE 2.5 MG AMPUL.NEB 3 ML INHALATION ×4 (02:26→21:10)
[2024-05-09 04:42] LABS: Basophils Percent Auto 0.5 % (0.2-1.2); Eosinophils Absolute Auto 0.1 K/mm3 (0-0.3); Eosinophils Percent Auto 1.5 % (0-4.4); Hematocrit 32.3 % (37.0-47.0); Hemoglobin 10.3 g/dL (12.0-15.0); Immature Granulocyte Absolute 0.18 K/mm3 (0.00-0.031); Immature Granulocyte Percent A 2.4 % (0-0.5); Lymphocytes Absolute Auto 0.93 K/mm3 (0.9-3.2); Lymphocytes Percent Auto 12.4 % (18.3-44.2); Mean Corpuscular HGB Conc 31.9 g/dl (32-36); Mean Corpuscular Hemoglobin 29.3 pg (26-34); Mean Corpuscular Volume 91.8 fl (80-100); Mean Platelet Volume 10.2 fl (7.4-10.4); Monocytes Absolute Auto 0.3 K/mm3 (0.1-0.6); Monocytes Percent Auto 4.5 % (2.6-8.5); Neutrophils Absolute Auto 5.9 K/mm3 (1.3-6.7); Neutrophils Percent Auto 78.7 % (45.5-73.1); Platelet Count Result 150 k/mm3 (150-375); Red Blood Count 3.52 M/mm3 (4.2-5.4); Red Cell Distribution Width 14.9 % (11.5-14.5); White Blood Count 7.5 K/mm3 (4.5-10.0)
[2024-05-09 05:01] LABS: Alanine Aminotransferase 18 U/L (6-35); Albumin Level 2.6 g/dL (3.5-5.1); Alkaline Phosphatase 80 U/L (38-126); Anion Gap 8 mmol/L (4-12); Aspartate Amino Transferase 22 U/L (14-36); Bilirubin,Total 0.6 mg/dL (0.2-1.3); Blood Urea Nitrogen 24 mg/dL (7-17); Calcium 8.2 mg/dL (8.4-10.2); Carbon Dioxide 28 mmol/L (22-30); Chloride 103 mmol/L (98-107); Estimated CRCL calculation 60 ml/min; Estimated Glomerular Filt Rate > 60; Glucose 107 mg/dL (65-110); Magnesium 1.6 mg/dL (1.6-2.3); Sodium 139 mmol/L (137-145)
[2024-05-09] MEDS: METOPROLOL TARTRATE 50 MG TAB PO ×3 (05:48→17:43)
[2024-05-09] MEDS: RANOLAZINE 500 MG TAB.ER.12H 1000 MG PO ×2 (05:48→17:43)
[2024-05-09] MEDS: PIPERACILLN/TAZ 3.375GM/NS50ML 3.375 GM/50 ML BAG IVPB ×2 (05:48→12:17)
[2024-05-09] MEDS: LEVOTHYROXINE SODIUM 25 MCG TABLET PO (05:48)
[2024-05-09 07:52] LABS: Glucose Point of Care 108 mg/dl (65-105)
[2024-05-09] MEDS: CYANOCOBALAMIN 500 MCG TABLET 2500 MCG PO (10:07)
[2024-05-09] MEDS: PANTOPRAZOLE 40 MG TABLET PO (10:08)
[2024-05-09] MEDS: APIXABAN 5 MG TABLET PO ×2 (10:08→21:10)
[2024-05-09] MEDS: ATORVASTATIN 40 MG TABLET PO (10:08)
[2024-05-09 11:39] LABS: Glucose Point of Care 144 mg/dl (65-105)
--- NOTE | 2024-05-09 12:20 | PM.IMPN ---
Progress Note: A&P Assessment and Plan (1) Altered mental status: Code(s): R41.82 - Altered mental status, unspecified Status: Acute Assessment and Plan: Patient with AMS 05/05/2024. Concern for CVA given recent AFib and on heparin. Heparin drip stopped. Stat CT brain showing no bleed or acute findings. CTA head/neck showing no acute findings. WBC trending down but now having fevers and PCT 3.[address] Ch/A/P showing worsening acute cholecystitis. Discussed with GenSurg. Status post cholecystostomy tube placement 05/06/2024 Bile was sent for aerobic anaerobic culture which is growing g variable bacilli. Await identification Remains on IV Zosyn Altered mental status improving (2) Atrial fibrillation: Code(s): I48.91 - Unspecified atrial fibrillation Status: Acute Assessment and Plan: Patient noted to have tachycardia and irregular rhythm. EKG (05/04) now showing AFib/RVR (HR 150), LAFB and borderline ST-T wave changes in the high lateral leads. Patient was moved to IMU and Diltiazem drip started. She remains on diltiazem drip Probably related to current GB infection/inflammation. [id number] at least 6. TSH normal on 04/23/24. Echo showing EF 55-60%, indeterminate diastolic fxn and mild MR Started Heparin drip but held related to above. Cards consult. Holding Cozaar given soft BP. Metoprolol added HR better controlled. Continue IV Diltiazem Converted to sinus rhythm On oral metoprolol switched to long-acting at prior to discharge Started on NOAC (3) Acute cholecystitis: Code(s): K81.0 - Acute cholecystitis Status: Acute Assessment and Plan: Patient presents with abdominal pain. CT scan showing distended GB with gallstones, wall thickening and surrounding fat stranding consistent with acute cholecystitis. RUQ US showing similar findings. Patient started on Zosyn. Started on clear liquid diet. General surgery consulted. Appreciate their input. Patient high risk with plan currently to treat conservatively. WBC better today but other inflammatory markers elevated. Continue IV abx. Status post cholecystostomy tube placement 05/06/2024 Continue supportive care. Bile culture has been sent. identified as pansensitive e coli. will switch antibiotics to oral (4) Essential hypertension: Code(s): I10 - Essential (primary) hypertension Status: Acute Assessment and Plan: Blood pressure soft at times Continue current medications. (5) Coronary artery disease: Code(s): I25.10 - Atherosclerotic heart disease of [place] coronary artery without angina pectoris Status: Acute Assessment and Plan: Patient with coronary disease. Continue Lipitor. She is not on metoprolol or aspirin. Renexa was on hold but resumed since no surgery planned. QTc okay. (6) Prediabetes: Code(s): R73.03 - Prediabetes Status: Acute Assessment and Plan: Glucose remains well controlled. Continue AccuCheks covering with sliding scale. Hypoglycemia protocol available as needed. Continue to follow Plan Urine retention - Alvarez placed. UOP better. Holding IV fluids. Voiding trial when more ambulatory. DVT prophylaxis -NOAC Code status - full Subjective Date/time seen: 05/09/24 12:20 Interval history: cough is better. feels better. denies any abdominal pain, labs reveiwed. Review of Systems Review of Systems: All systems reviewed & are unremarkable except as noted in HPI and below Exam Narrative: Gen - NARD Chest - left base crackles and decreased BS in the right base o/w clear. CV - irregular. Tele showing AFib with improved rate Abd - Soft, distended nontender no guarding or rebound Ext - No pedal edema Neuro -awake and alert, follows commands. Generalized weakness Skin - Warm and dry Objective Data Vital Signs Vital Signs: Vital Signs - 24 hr 05/08/24 13:41 05/08/24 13:59 05/08/24 13:59 Temperature Pulse Rate 80 78 78 Respiratory Rate 20 20 Blood Pressure Pulse Oximetry 94 Oxygen Delivery Room Air 05/08/24 14:11 05/08/24 15:34 05/08/24 16:00 Temperature Pulse Rate 78 82 Respiratory Rate 20 Blood Pressure Pulse Oximetry Oxygen Delivery Room Air 05/08/24 16:01 05/08/24 17:49 05/08/24 18:00 Temperature 97.5 F L Pulse Rate 91 74 67 Respiratory Rate 22 H Blood Pressure 137/78 Pulse Oximetry 100 Oxygen Delivery 05/08/24 19:17 05/08/24 20:00 05/08/24 20:00 Temperature 98.1 F Pulse Rate 74 72 Respiratory Rate 16 Blood Pressure 138/60 Pulse Oximetry 96 Oxygen Delivery Room Air 05/08/24 20:15 05/08/24 20:17 05/08/24 20:25 Temperature Pulse Rate 74 78 Respiratory Rate 20 Blood Pressure Pulse Oximetry 94 Oxygen Delivery Room Air 05/08/24 22:00 05/08/24 23:27 05/08/24 23:51 Temperature 98.4 F Pulse Rate 73 76 76 Respiratory Rate 16 Blood Pressure 143/61 H Pulse Oximetry 94 Oxygen Delivery 05/09/24 00:00 05/09/24 00:00 05/09/24 02:00 Temperature Pulse Rate 79 70 Respiratory Rate Blood Pressure Pulse Oximetry Oxygen Delivery Room Air 05/09/24 02:27 05/09/24 02:40 05/09/24 03:53 Temperature 98.5 F Pulse Rate 70 78 80 Respiratory Rate 20 20 16 Blood Pressure 144/66 H Pulse Oximetry 96 Oxygen Delivery 05/09/24 04:00 05/09/24 04:00 05/09/24 05:48 Temperature Pulse Rate 76 81 Respiratory Rate Blood Pressure Pulse Oximetry Oxygen Delivery Room Air 05/09/24 06:00 05/09/24 07:54 05/09/24 08:00 Temperature 98.0 F Pulse Rate 76 68 Respiratory Rate 20 Blood Pressure 127/59 L Pulse Oximetry 94 Oxygen Delivery Room Air 05/09/24 08:00 05/09/24 08:41 05/09/24 08:41 Temperature Pulse Rate 71 69 Respiratory Rate 20 Blood Pressure Pulse Oximetry 95 Oxygen Delivery Room Air 05/09/24 08:50 Temperature Pulse Rate 68 Respiratory Rate 20 Blood Pressure Pulse Oximetry Oxygen Delivery Intake/Output Intake/Output: Intake & Output 05/06/24 05/07/24 05/08/24 05/09/24 23:59 23:59 23:59 23:59 Intake Total 1711.7 1292.4 490 220 Output Total 700 7260 7511 146 Balance 1011.7 -817.6 -1530 -1245 Meds/Results Medications: Active Medications Generic Name Dose Route Start Last Admin Trade Name Freq PRN Reason Stop Dose Admin Acetaminophen 650 mg 05/03/24 12:48 Acetaminophen 325 Mg Tablet PO Q6H PRN Mild Pain (1-5) Or Fever Hydrocodone Bitart/Acetaminophen 1 tab 05/03/24 12:48 05/06/24 20:26 Hydrocodone/Acetaminophen (*Crx) 5-325 Mg Tablet PO 1 tab Q6H PRN Administration Pain Rated 6 or Greater Albuterol/Ipratropium 3 ml 05/06/24 20:00 05/09/24 08:41 Ipratropium 0.5 Mg/Albuterol Sulfate 2.5 Mg Ampul.Neb 3 Ml INHALATION 3 ml Q6HRT MELISSA Administration Amitriptyline HCl 30 mg 05/02/24 21:00 05/08/24 20:25 Amitriptyline Hcl 10 Mg Tablet PO 30 mg HS MELISSA Administration Apixaban 5 mg 05/08/24 09:00 05/09/24 10:08 Apixaban 5 Mg Tablet PO 5 mg Q12HR MELISSA Administration Atorvastatin Calcium 40 mg 05/03/24 09:00 05/09/24 10:08 Atorvastatin 40 Mg Tablet PO 40 mg DAILY MELISSA Administration Cyanocobalamin 2,500 mcg 05/03/24 09:00 05/09/24 10:07 Cyanocobalamin 500 Mcg Tablet PO 2,500 mcg QAM MELISSA Administration Dextrose 12.5 gm 05/02/24 13:48 Dextrose 50% 25 Gm/50 Ml Syringe IV PUSH PRN PRN Hypoglycemia Protocol Glucagon 1 mg 05/02/24 13:48 Glucagon For Inj 1 Mg Vial IM PRN PRN Hypoglycemia Protocol Glucose 15 gm 05/02/24 13:48 Glucose Oral Gel 15 Gm Of Glucse In 37.5 Gm Tube PO PRN PRN Hypoglycemia Protocol Piperacillin/Tazobactam/Dextrose 3.375 gm in 50 mls @ 100 mls/hr 05/02/24 12:00 05/09/24 05:48 Zosyn 3.375 Gm/Ns 50 Ml IVPB 100 mls/hr Q6HR MELISSA Administration Dextrose 1,000 mls @ 100 mls/hr 05/02/24 13:48 Dextrose 5% 1,000 Ml IVPB PRN PRN Hypoglycemia Protocol Insulin Aspart 3 - 6 units 05/02/24 17:00 05/09/24 09:25 Insulin Aspart (*Bkc) 100 Units/Ml SUB-Q Not Given TIDWM MELISSA Protocol Levothyroxine Sodium 25 mcg 05/03/24 06:30 05/09/24 05:48 Levothyroxine Sodium 25 Mcg Tablet PO 25 mcg DAILY@0630 MELISSA Administration Metoprolol Tartrate 50 mg 05/04/24 18:00 05/09/24 05:48 Metoprolol Tartrate 50 Mg Tab PO 50 mg Q6HR MELISSA Administration Nitroglycerin 0.4 mg 05/02/24 13:50 Nitroglycerin Sl 0.4 Mg Tablet SUBLINGUAL Q5M PRN chest pain Ondansetron HCl 4 mg 05/02/24 03:45 Ondansetron Inj 4 Mg/2 Ml Vial IV PUSH Q4H PRN Nausea Pantoprazole Sodium 40 mg 05/03/24 09:00 05/09/24 10:08 Pantoprazole 40 Mg Tablet PO 40 mg QAM MELISSA Administration Ranolazine 1,000 mg 05/04/24 18:00 05/09/24 05:48 Ranolazine 500 Mg Tab.Er.12h PO 1,000 mg Q12H MELISSA Administration Radiology Results: ITS Impressions Abdomen/Pelvis CT 05/02/24 06:27 IMPRESSION: 1. Acute cholecystitis. Upper Quadrant Ultrasound 05/02/24 13:50 IMPRESSION: 1. Acute cholecystitis. Head CT 05/05/24 10:51 IMPRESSION: 1. Stable moderate nonspecific cerebral white matter disease, which likely represents chronic small vessel ischemic disease. Head/Neck CTA 05/05/24 12:19 IMPRESSION: 1. Moderate nonspecific cerebral white matter disease, which likely represents chronic small vessel ischemic disease. 2. No aneurysm or significant intracranial arterial stenosis. 3. 0% stenosis of the proximal internal carotid arteries relative to normal distal artery lumen diameters (NASCET criteria). Chest/Abdomen/Pelvis CT 05/05/24 15:08 IMPRESSION: 1. Worsened acute cholecystitis. 2. Small right pleural effusion. Cholecystostomy 05/06/24 15:15 IMPRESSION: 1. Successful ultrasound-guided cholecystostomy tube placement. 2. 8 mm clear, orange bile was sent for aerobic and anaerobic cultures. 3. The catheter will be managed by Dr. Mckenzie. A catheter cholangiogram may be performed not less than 48 hours after tube placement if clinically indicated to assess cystic duct patency. If cholecystectomy is not eventually performed and the infectious episode has resolved, the tube may be removed over a guidewire, preferably not less than 3 weeks after placement to allow time for a mature catheter tract to form to prevent bile leakage and peritonitis. Chest X-Ray 05/08/24 16:21 IMPRESSION: Mild pulmonary vascular congestion without focal infiltrate. Labs Labs: Laboratory Results - last 24 hr 05/08/24 05/08/24 05/08/24 11:33 16:21 20:14 WBC RBC Hgb Hct MCV MCH MCHC RDW Plt Count MPV Immature Gran % (Auto) Neut % (Auto) Lymph % (Auto) [place] % (Auto) Eos % (Auto) Baso % (Auto) Lymph # (Auto) [place] # (Auto) Eos # (Auto) Baso # (Auto) Abs Immat Gran (auto) Absolute Neuts (auto) Absolute Nucleated RBC Nucleated RBC % Sodium Potassium Chloride Carbon Dioxide Anion Gap BUN Creatinine Estim Creat Clear Calc Estimated GFR Glucose POC Capillary Glucose 125 H 98 129 H Calcium Magnesium Total Bilirubin AST ALT Alkaline Phosphatase Total Protein Albumin 05/09/24 05/09/24 05/09/24 04:20 07:28 11:37 WBC 7.5 RBC 3.52 L Hgb 10.3 L Hct 32.3 L MCV 91.8 MCH 29.3 MCHC 31.9 L RDW 14.9 H Plt Count 150 MPV 10.2 Immature Gran % (Auto) 2.4 H Neut % (Auto) 78.7 H Lymph % (Auto) 12.4 L [place] % (Auto) 4.5 Eos % (Auto) 1.5 Baso % (Auto) 0.5 Lymph # (Auto) 0.93 [place] # (Auto) 0.3 Eos # (Auto) 0.1 Baso # (Auto) 0.0 Abs Immat Gran (auto) 0.18 H Absolute Neuts (auto) 5.9 Absolute Nucleated RBC 0.000 Nucleated RBC % 0.0 Sodium 139 Potassium 3.0 L Chloride 103 Carbon Dioxide 28 Anion Gap 8 BUN 24 H Creatinine 0.59 L Estim Creat Clear Calc 60 Estimated GFR > 60 Glucose 107 POC Capillary Glucose 108 H 144 H Calcium 8.2 L Magnesium 1.6 Total Bilirubin 0.6 AST 22 ALT 18 Alkaline Phosphatase 80 Total Protein 6.0 L Albumin 2.6 L
[2024-05-09] MEDS: POTASSIUM CHLORIDE 20 MEQ ER TABLET 40 MEQ PO (12:22)
[2024-05-09] MEDS: MAGNESIUM SULF 2 GM/WATER 50ML 2 GM/50 ML BAG IVPB (12:24)
--- NOTE | 2024-05-09 13:20 | WPDPN ---
Progress Note: A&P Assessment and Plan (1) Acute cholecystitis: Code(s): K81.0 - Acute cholecystitis Status: Acute Assessment and Plan: Patient has had a percutaneous cholecystostomy tube placed to decompress the gallbladder and treat the acute cholecystitis. Culture from the bile shows E coli. Patient was on Augmentin orally which should cover. She seems to be improving with decreasing tenderness in the right upper quadrant. She is tolerating bite size diet and thickened liquids. She is to get a swallow study to performed later today. Continue present management. Expect to have the cholecystostomy tube in place for at least 3 weeks and most likely closer to 6 weeks. Patient will follow-up with Dr. Mckenzie the office decide when to have the drain removed. At this point when she is medically stable she can be discharged home for surgery standpoint with follow-up Dr. Mckenzie the office in a couple weeks. She can be discharged on Augmentin. Subjective Date/time seen: 05/09/24 13:20 Interval history: Patient is clinically stable. She is getting a formal swallow study today. She is to be on thickened liquids and bite size diet for now. What she has been able to take and has not caused have any worsening abdominal pain. Bile coming out of the cholecystostomy tube drain is typical appearing bile without purulence and without any bloody bile. White blood count is normalized. Cultures of the bile shows E coli. The patient is on Augmentin. Exam GI: Other: Abdomen is soft and nondistended. Right upper quadrant percutaneous cholecystostomy drain in place. Output from the drain is typical appearing bile. Dressing is dry. Objective Data Vital Signs Vital Signs: Vital Signs - 24 hr 05/08/24 13:41 05/08/24 13:59 05/08/24 13:59 Temperature Pulse Rate 80 78 78 Respiratory Rate 20 20 Blood Pressure Pulse Oximetry 94 Oxygen Delivery Room Air 05/08/24 14:11 05/08/24 15:34 05/08/24 16:00 Temperature Pulse Rate 78 82 Respiratory Rate 20 Blood Pressure Pulse Oximetry Oxygen Delivery Room Air 05/08/24 16:01 05/08/24 17:49 05/08/24 18:00 Temperature 36.4 C L Pulse Rate 91 74 67 Respiratory Rate 22 H Blood Pressure 137/78 Pulse Oximetry 100 Oxygen Delivery 05/08/24 19:17 05/08/24 20:00 05/08/24 20:00 Temperature 36.7 C Pulse Rate 74 72 Respiratory Rate 16 Blood Pressure 138/60 Pulse Oximetry 96 Oxygen Delivery Room Air 05/08/24 20:15 05/08/24 20:17 05/08/24 20:25 Temperature Pulse Rate 74 78 Respiratory Rate 20 Blood Pressure Pulse Oximetry 94 Oxygen Delivery Room Air 05/08/24 22:00 05/08/24 23:27 05/08/24 23:51 Temperature 36.9 C Pulse Rate 73 76 76 Respiratory Rate 16 Blood Pressure 143/61 H Pulse Oximetry 94 Oxygen Delivery 05/09/24 00:00 05/09/24 00:00 05/09/24 02:00 Temperature Pulse Rate 79 70 Respiratory Rate Blood Pressure Pulse Oximetry Oxygen Delivery Room Air 05/09/24 02:27 05/09/24 02:40 05/09/24 03:53 Temperature 36.9 C Pulse Rate 70 78 80 Respiratory Rate 20 20 16 Blood Pressure 144/66 H Pulse Oximetry 96 Oxygen Delivery 05/09/24 04:00 05/09/24 04:00 05/09/24 05:48 Temperature Pulse Rate 76 81 Respiratory Rate Blood Pressure Pulse Oximetry Oxygen Delivery Room Air 05/09/24 06:00 05/09/24 07:54 05/09/24 08:00 Temperature 36.7 C Pulse Rate 76 68 Respiratory Rate 20 Blood Pressure 127/59 L Pulse Oximetry 94 Oxygen Delivery Room Air 05/09/24 08:00 05/09/24 08:41 05/09/24 08:41 Temperature Pulse Rate 71 69 Respiratory Rate 20 Blood Pressure Pulse Oximetry 95 Oxygen Delivery Room Air 05/09/24 08:50 05/09/24 12:00 05/09/24 12:23 Temperature 36.6 C Pulse Rate 68 70 71 Respiratory Rate 20 18 Blood Pressure 124/63 Pulse Oximetry 92 Oxygen Delivery Intake/Output Intake/Output: Intake & Output 05/06/24 05/07/24 05/08/24 05/09/24 23:59 23:59 23:59 23:59 Intake Total 1711.7 1292.4 490 390 Output Total 700 9170 2020 1467 Balance 1011.7 -817.6 -1530 -1075 Meds/Results Medications: Active Medications Generic Name Dose Route Start Last Admin Trade Name Freq PRN Reason Stop Dose Admin Acetaminophen 650 mg 05/03/24 12:48 Acetaminophen 325 Mg Tablet PO Q6H PRN Mild Pain (1-5) Or Fever Hydrocodone Bitart/Acetaminophen 1 tab 05/03/24 12:48 05/06/24 20:26 Hydrocodone/Acetaminophen (*Crx) 5-325 Mg Tablet PO 1 tab Q6H PRN Administration Pain Rated 6 or Greater Albuterol/Ipratropium 3 ml 05/06/24 20:00 05/09/24 08:41 Ipratropium 0.5 Mg/Albuterol Sulfate 2.5 Mg Ampul.Neb 3 Ml INHALATION 3 ml Q6HRT MELISSA Administration Amitriptyline HCl 30 mg 05/02/24 21:00 05/08/24 20:25 Amitriptyline Hcl 10 Mg Tablet PO 30 mg HS MELISSA Administration Amoxicillin/Clavulanate Potassium 1 tablet 05/09/24 21:00 Amoxicillin/Clavulanate K 875-125 Mg Tab PO Q12HR MELISSA Apixaban 5 mg 05/08/24 09:00 05/09/24 10:08 Apixaban 5 Mg Tablet PO 5 mg Q12HR MELISSA Administration Atorvastatin Calcium 40 mg 05/03/24 09:00 05/09/24 10:08 Atorvastatin 40 Mg Tablet PO 40 mg DAILY MELISSA Administration Cyanocobalamin 2,500 mcg 05/03/24 09:00 05/09/24 10:07 Cyanocobalamin 500 Mcg Tablet PO 2,500 mcg QAM MELISSA Administration Dextrose 12.5 gm 05/02/24 13:48 Dextrose 50% 25 Gm/50 Ml Syringe IV PUSH PRN PRN Hypoglycemia Protocol Glucagon 1 mg 05/02/24 13:48 Glucagon For Inj 1 Mg Vial IM PRN PRN Hypoglycemia Protocol Glucose 15 gm 05/02/24 13:48 Glucose Oral Gel 15 Gm Of Glucse In 37.5 Gm Tube PO PRN PRN Hypoglycemia Protocol Dextrose 1,000 mls @ 100 mls/hr 05/02/24 13:48 Dextrose 5% 1,000 Ml IVPB PRN PRN Hypoglycemia Protocol Insulin Aspart 3 - 6 units 05/02/24 17:00 05/09/24 12:23 Insulin Aspart (*Bkc) 100 Units/Ml SUB-Q Not Given TIDWM MELISSA Protocol Levothyroxine Sodium 25 mcg 05/03/24 06:30 05/09/24 05:48 Levothyroxine Sodium 25 Mcg Tablet PO 25 mcg DAILY@0630 MELISSA Administration Metoprolol Tartrate 50 mg 05/04/24 18:00 05/09/24 12:23 Metoprolol Tartrate 50 Mg Tab PO 50 mg Q6HR MELISSA Administration Nitroglycerin 0.4 mg 05/02/24 13:50 Nitroglycerin Sl 0.4 Mg Tablet SUBLINGUAL Q5M PRN chest pain Ondansetron HCl 4 mg 05/02/24 03:45 Ondansetron Inj 4 Mg/2 Ml Vial IV PUSH Q4H PRN Nausea Pantoprazole Sodium 40 mg 05/03/24 09:00 05/09/24 10:08 Pantoprazole 40 Mg Tablet PO 40 mg QAM MELISSA Administration Ranolazine 1,000 mg 05/04/24 18:00 05/09/24 05:48 Ranolazine 500 Mg Tab.Er.12h PO 1,000 mg Q12H MELISSA Administration Radiology Results: ITS Impressions Abdomen/Pelvis CT 05/02/24 06:27 IMPRESSION: 1. Acute cholecystitis. Upper Quadrant Ultrasound 05/02/24 13:50 IMPRESSION: 1. Acute cholecystitis. Head CT 05/05/24 10:51 IMPRESSION: 1. Stable moderate nonspecific cerebral white matter disease, which likely represents chronic small vessel ischemic disease. Head/Neck CTA 05/05/24 12:19 IMPRESSION: 1. Moderate nonspecific cerebral white matter disease, which likely represents chronic small vessel ischemic disease. 2. No aneurysm or significant intracranial arterial stenosis. 3. 0% stenosis of the proximal internal carotid arteries relative to normal distal artery lumen diameters (NASCET criteria). Chest/Abdomen/Pelvis CT 05/05/24 15:08 IMPRESSION: 1. Worsened acute cholecystitis. 2. Small right pleural effusion. Cholecystostomy 05/06/24 15:15 IMPRESSION: 1. Successful ultrasound-guided cholecystostomy tube placement. 2. 8 mm clear, orange bile was sent for aerobic and anaerobic cultures. 3. The catheter will be managed by Dr. Mckenzie. A catheter cholangiogram may be performed not less than 48 hours after tube placement if clinically indicated to assess cystic duct patency. If cholecystectomy is not eventually performed and the infectious episode has resolved, the tube may be removed over a guidewire, preferably not less than 3 weeks after placement to allow time for a mature catheter tract to form to prevent bile leakage and peritonitis. Chest X-Ray 05/08/24 16:21 IMPRESSION: Mild pulmonary vascular congestion without focal infiltrate. Labs Labs: Laboratory Results - last 24 hr 05/08/24 05/08/24 05/08/24 11:33 16:21 20:14 WBC RBC Hgb Hct MCV MCH MCHC RDW Plt Count MPV Immature Gran % (Auto) Neut % (Auto) Lymph % (Auto) [place] % (Auto) Eos % (Auto) Baso % (Auto) Lymph # (Auto) [place] # (Auto) Eos # (Auto) Baso # (Auto) Abs Immat Gran (auto) Absolute Neuts (auto) Absolute Nucleated RBC Nucleated RBC % Sodium Potassium Chloride Carbon Dioxide Anion Gap BUN Creatinine Estim Creat Clear Calc Estimated GFR Glucose POC Capillary Glucose 125 H 98 129 H Calcium Magnesium Total Bilirubin AST ALT Alkaline Phosphatase Total Protein Albumin 05/09/24 05/09/24 05/09/24 04:20 07:28 11:37 WBC 7.5 RBC 3.52 L Hgb 10.3 L Hct 32.3 L MCV 91.8 MCH 29.3 MCHC 31.9 L RDW 14.9 H Plt Count 150 MPV 10.2 Immature Gran % (Auto) 2.4 H Neut % (Auto) 78.7 H Lymph % (Auto) 12.4 L [place] % (Auto) 4.5 Eos % (Auto) 1.5 Baso % (Auto) 0.5 Lymph # (Auto) 0.93 [place] # (Auto) 0.3 Eos # (Auto) 0.1 Baso # (Auto) 0.0 Abs Immat Gran (auto) 0.18 H Absolute Neuts (auto) 5.9 Absolute Nucleated RBC 0.000 Nucleated RBC % 0.0 Sodium 139 Potassium 3.0 L Chloride 103 Carbon Dioxide 28 Anion Gap 8 BUN 24 H Creatinine 0.59 L Estim Creat Clear Calc 60 Estimated GFR > 60 Glucose 107 POC Capillary Glucose 108 H 144 H Calcium 8.2 L Magnesium 1.6 Total Bilirubin 0.6 AST 22 ALT 18 Alkaline Phosphatase 80 Total Protein 6.0 L Albumin 2.6 L
--- NOTE | 2024-05-09 18:00 | PC.NURSE ---
This patient, Maude Milton, was received from [facility] on 05/09/24 at 1800. Patient/family oriented to unit policies and routines. Report received from KALLI Allen.
[2024-05-09 18:27] LABS: Glucose Point of Care 133 mg/dl (65-105)
[2024-05-09] MEDS: AMITRIPTYLINE HCL 10 MG TABLET 30 MG PO (21:09)
[2024-05-09] MEDS: AMOXICILLIN/CLAVULANATE K 875-125 MG TAB 1 TABLET PO (21:09)
[2024-05-10] VITALS (18 sets, daily range): BP systolic 135–150; BP diastolic 68–81; PULSE 62–76; RESP 16–18; TEMP 36.6–36.9; O2SAT 93–97
[2024-05-10] MEDS: METOPROLOL TARTRATE 50 MG TAB PO ×4 (00:42→18:52)
[2024-05-10] MEDS: IPRATROPIUM 0.5 MG/ALBUTEROL SULFATE 2.5 MG AMPUL.NEB 3 ML INHALATION ×4 (02:28→20:31)
[2024-05-10 05:38] LABS: Basophils Percent Auto 0.4 % (0.2-1.2); Eosinophils Absolute Auto 0.2 K/mm3 (0-0.3); Eosinophils Percent Auto 2.1 % (0-4.4); Hematocrit 31.6 % (37.0-47.0); Hemoglobin 10.1 g/dL (12.0-15.0); Immature Granulocyte Absolute 0.14 K/mm3 (0.00-0.031); Immature Granulocyte Percent A 1.9 % (0-0.5); Lymphocytes Percent Auto 21.3 % (18.3-44.2); Mean Corpuscular Hemoglobin 29.6 pg (26-34); Mean Corpuscular Volume 92.7 fl (80-100); Mean Platelet Volume 10.2 fl (7.4-10.4); Monocytes Absolute Auto 0.4 K/mm3 (0.1-0.6); Monocytes Percent Auto 5.6 % (2.6-8.5); Neutrophils Absolute Auto 5.2 K/mm3 (1.3-6.7); Neutrophils Percent Auto 68.7 % (45.5-73.1); Platelet Count Result 186 k/mm3 (150-375); Red Blood Count 3.41 M/mm3 (4.2-5.4); White Blood Count 7.5 K/mm3 (4.5-10.0)
[2024-05-10 05:49] LABS: Alanine Aminotransferase 17 U/L (6-35); Albumin Level 2.6 g/dL (3.5-5.1); Alkaline Phosphatase 72 U/L (38-126); Anion Gap 6 mmol/L (4-12); Aspartate Amino Transferase 19 U/L (14-36); Bilirubin,Total 0.5 mg/dL (0.2-1.3); Blood Urea Nitrogen 20 mg/dL (7-17); Calcium 8.1 mg/dL (8.4-10.2); Carbon Dioxide 29 mmol/L (22-30); Chloride 104 mmol/L (98-107); Estimated CRCL calculation 81 ml/min; Estimated Glomerular Filt Rate > 60; Glucose 110 mg/dL (65-110); Magnesium 2.1 mg/dL (1.6-2.3); Potassium 3.3 mmol/L (3.4-5.0); Sodium 139 mmol/L (137-145)
[2024-05-10 06:32] LABS: Atypical Lymphocytes Present; Platelet Estimate Adequate (Adequate); Schistocytes None Seen
[2024-05-10 06:40] LABS: Glucose Point of Care 150 mg/dl (65-105)
[2024-05-10] MEDS: LEVOTHYROXINE SODIUM 25 MCG TABLET PO (06:45)
[2024-05-10] MEDS: RANOLAZINE 500 MG TAB.ER.12H 1000 MG PO ×2 (06:45→18:52)
[2024-05-10 09:05] LABS: Glucose Point of Care 115 mg/dl (65-105)
[2024-05-10] MEDS: CYANOCOBALAMIN 500 MCG TABLET 2500 MCG PO (10:38)
[2024-05-10] MEDS: AMOXICILLIN/CLAVULANATE K 875-125 MG TAB 1 TABLET PO ×2 (10:38→20:49)
[2024-05-10] MEDS: APIXABAN 5 MG TABLET PO ×2 (10:39→20:49)
[2024-05-10] MEDS: ATORVASTATIN 40 MG TABLET PO (10:39)
[2024-05-10] MEDS: PANTOPRAZOLE 40 MG TABLET PO (10:39)
--- NOTE | 2024-05-10 11:35 | P.PN_ITS ---
Progress Note: A&P Assessment and Plan (1) Acute cholecystitis: Code(s): K81.0 - Acute cholecystitis Status: Acute Assessment and Plan: Managed non operatively at this time with placement of a cholecystostomy tube to decompress the gallbladder. Patient can be discharged home on oral antibiotics at the discretion of hospitalist service when the patient is medically stable. Cholecystostomy tube will need to stay in place at time of discharge. She can follow-up see Dr. Mckenzie in the office in 2 weeks. Subjective Date/time seen: 05/10/24 11:35 Interval history: No acute changes. Cholecystostomy tube in place. The tube is draining. White blood count remains normal. She tolerated diet as recommended per speech therapy. Exam GI: Other: Abd soft nondistended. Right upper quadrant cholecystostomy tube in place. Dressing is dry. Output from the drain is typical nonpurulent nonbloody bile. A Objective Data Vital Signs Vital Signs: Vital Signs - 24 hr 05/09/24 12:00 05/09/24 12:00 05/09/24 12:23 Temperature 36.6 C Pulse Rate 70 85 71 Respiratory Rate 18 Blood Pressure 124/63 Pulse Oximetry 92 Oxygen Delivery 05/09/24 14:00 05/09/24 14:05 05/09/24 15:43 Temperature 36.5 C Pulse Rate 68 71 71 Respiratory Rate 20 18 Blood Pressure 142/54 H Pulse Oximetry 94 Oxygen Delivery 05/09/24 16:00 05/09/24 17:43 05/09/24 18:00 Temperature Pulse Rate 74 74 Respiratory Rate Blood Pressure Pulse Oximetry Oxygen Delivery Room Air 05/09/24 18:00 05/09/24 20:00 05/09/24 20:00 Temperature 36.9 C 36.4 C Pulse Rate 73 76 Respiratory Rate 32 H 16 Blood Pressure 136/63 154/67 H Pulse Oximetry 93 94 Oxygen Delivery Room Air 05/09/24 20:00 05/09/24 21:13 05/09/24 21:25 Temperature Pulse Rate 76 74 70 Respiratory Rate 18 18 Blood Pressure Pulse Oximetry Oxygen Delivery 05/10/24 00:00 05/10/24 02:29 05/10/24 02:35 Temperature Pulse Rate 69 65 64 Respiratory Rate 18 18 Blood Pressure Pulse Oximetry Oxygen Delivery 05/10/24 04:00 05/10/24 04:00 05/10/24 08:46 Temperature 36.6 C Pulse Rate 66 69 Respiratory Rate 18 Blood Pressure 150/74 H Pulse Oximetry 96 97 Oxygen Delivery Room Air 05/10/24 08:46 05/10/24 08:57 05/10/24 10:38 Temperature Pulse Rate 67 63 Respiratory Rate 18 18 Blood Pressure Pulse Oximetry Oxygen Delivery Room Air 05/10/24 10:38 Temperature Pulse Rate 67 Respiratory Rate Blood Pressure Pulse Oximetry Oxygen Delivery Intake/Output Intake/Output: Intake & Output 05/07/24 05/08/24 05/09/24 05/10/24 23:59 23:59 23:59 23:59 Intake Total 1292.4 490 390 420 Output Total 2110 2019 1790 150 Balance -817.6 -1530 -1400 270 Meds/Results Medications: Active Medications Generic Name Dose Route Start Last Admin Trade Name Freq PRN Reason Stop Dose Admin Acetaminophen 650 mg 05/03/24 12:48 Acetaminophen 325 Mg Tablet PO Q6H PRN Mild Pain (1-5) Or Fever Hydrocodone Bitart/Acetaminophen 1 tab 05/03/24 12:48 05/06/24 20:26 Hydrocodone/Acetaminophen (*Crx) 5-325 Mg Tablet PO 1 tab Q6H PRN Administration Pain Rated 6 or Greater Albuterol/Ipratropium 3 ml 05/06/24 20:00 05/10/24 08:46 Ipratropium 0.5 Mg/Albuterol Sulfate 2.5 Mg Ampul.Neb 3 Ml INHALATION 3 ml Q6HRT MELISSA Administration Amitriptyline HCl 30 mg 05/02/24 21:00 05/09/24 21:09 Amitriptyline Hcl 10 Mg Tablet PO 30 mg HS MELISSA Administration Amoxicillin/Clavulanate Potassium 1 tablet 05/09/24 21:00 05/10/24 10:38 Amoxicillin/Clavulanate K 875-125 Mg Tab PO 1 tablet Q12HR MELISSA Administration Apixaban 5 mg 05/08/24 09:00 05/10/24 10:39 Apixaban 5 Mg Tablet PO 5 mg Q12HR MELISSA Administration Atorvastatin Calcium 40 mg 05/03/24 09:00 05/10/24 10:39 Atorvastatin 40 Mg Tablet PO 40 mg DAILY MELISSA Administration Cyanocobalamin 2,500 mcg 05/03/24 09:00 05/10/24 10:38 Cyanocobalamin 500 Mcg Tablet PO 2,500 mcg QAM MELISSA Administration Dextrose 12.5 gm 05/02/24 13:48 Dextrose 50% 25 Gm/50 Ml Syringe IV PUSH PRN PRN Hypoglycemia Protocol Glucagon 1 mg 05/02/24 13:48 Glucagon For Inj 1 Mg Vial IM PRN PRN Hypoglycemia Protocol Glucose 15 gm 05/02/24 13:48 Glucose Oral Gel 15 Gm Of Glucse In 37.5 Gm Tube PO PRN PRN Hypoglycemia Protocol Dextrose 1,000 mls @ 100 mls/hr 05/02/24 13:48 Dextrose 5% 1,000 Ml IVPB PRN PRN Hypoglycemia Protocol Insulin Aspart 3 - 6 units 05/02/24 17:00 05/10/24 10:04 Insulin Aspart (*Bkc) 100 Units/Ml SUB-Q Not Given TIDWM [facility] Protocol Levothyroxine Sodium 25 mcg 05/03/24 06:30 05/10/24 06:45 Levothyroxine Sodium 25 Mcg Tablet PO 25 mcg DAILY@0630 MELISSA Administration Metoprolol Tartrate 50 mg 05/04/24 18:00 05/10/24 06:45 Metoprolol Tartrate 50 Mg Tab PO 50 mg Q6HR MELISSA Administration Nitroglycerin 0.4 mg 05/02/24 13:50 Nitroglycerin Sl 0.4 Mg Tablet SUBLINGUAL Q5M PRN chest pain Ondansetron HCl 4 mg 05/02/24 03:45 Ondansetron Inj 4 Mg/2 Ml Vial IV PUSH Q4H PRN Nausea Pantoprazole Sodium 40 mg 05/03/24 09:00 05/10/24 10:39 Pantoprazole 40 Mg Tablet PO 40 mg QAM MELISSA Administration Ranolazine 1,000 mg 05/04/24 18:00 05/10/24 06:45 Ranolazine 500 Mg Tab.Er.12h PO 1,000 mg Q12H MELISSA Administration Radiology Results: ITS Impressions Abdomen/Pelvis CT 05/02/24 06:27 IMPRESSION: 1. Acute cholecystitis. Upper Quadrant Ultrasound 05/02/24 13:50 IMPRESSION: 1. Acute cholecystitis. Head CT 05/05/24 10:51 IMPRESSION: 1. Stable moderate nonspecific cerebral white matter disease, which likely represents chronic small vessel ischemic disease. Head/Neck CTA 05/05/24 12:19 IMPRESSION: 1. Moderate nonspecific cerebral white matter disease, which likely represents chronic small vessel ischemic disease. 2. No aneurysm or significant intracranial arterial stenosis. 3. 0% stenosis of the proximal internal carotid arteries relative to normal distal artery lumen diameters (NASCET criteria). Chest/Abdomen/Pelvis CT 05/05/24 15:08 IMPRESSION: 1. Worsened acute cholecystitis. 2. Small right pleural effusion. Cholecystostomy 05/06/24 15:15 IMPRESSION: 1. Successful ultrasound-guided cholecystostomy tube placement. 2. 8 mm clear, orange bile was sent for aerobic and anaerobic cultures. 3. The catheter will be managed by Dr. cMkenzie. A catheter cholangiogram may be performed not less than 48 hours after tube placement if clinically indicated to assess cystic duct patency. If cholecystectomy is not eventually performed and the infectious episode has resolved, the tube may be removed over a guidewire, preferably not less than 3 weeks after placement to allow time for a mature catheter tract to form to prevent bile leakage and peritonitis. Chest X-Ray 05/08/24 16:21 IMPRESSION: Mild pulmonary vascular congestion without focal infiltrate. Labs Labs: Laboratory Results - last 24 hr 05/09/24 05/09/24 05/09/24 11:37 15:33 20:14 WBC RBC Hgb Hct MCV MCH MCHC RDW Plt Count MPV Immature Gran % (Auto) Neut % (Auto) Lymph % (Auto) [place] % (Auto) Eos % (Auto) Baso % (Auto) Lymph # (Auto) [place] # (Auto) Eos # (Auto) Baso # (Auto) Abs Immat Gran (auto) Absolute Neuts (auto) Absolute Nucleated RBC Nucleated RBC % Atypical Lymphocytes Platelet Estimate Schistocytes Sodium Potassium Chloride Carbon Dioxide Anion Gap BUN Creatinine Estim Creat Clear Calc Estimated GFR Glucose POC Capillary Glucose 144 H 133 H 150 H Calcium Magnesium Total Bilirubin AST ALT Alkaline Phosphatase Total Protein Albumin 05/10/24 05/10/24 05:18 09:02 WBC 7.5 RBC 3.41 L Hgb 10.1 L Hct 31.6 L MCV 92.7 MCH 29.6 MCHC 32.0 RDW 15.0 H Plt Count 186 MPV 10.2 Immature Gran % (Auto) 1.9 H Neut % (Auto) 68.7 Lymph % (Auto) 21.3 [place] % (Auto) 5.6 Eos % (Auto) 2.1 Baso % (Auto) 0.4 Lymph # (Auto) 1.60 [place] # (Auto) 0.4 Eos # (Auto) 0.2 Baso # (Auto) 0.0 Abs Immat Gran (auto) 0.14 H Absolute Neuts (auto) 5.2 Absolute Nucleated RBC 0.000 Nucleated RBC % 0.0 Atypical Lymphocytes Present Platelet Estimate Adequate Schistocytes None seen Sodium 139 Potassium 3.3 L Chloride 104 Carbon Dioxide 29 Anion Gap 6 BUN 20 H Creatinine 0.42 L Estim Creat Clear Calc 81 Estimated GFR > 60 Glucose 110 POC Capillary Glucose 115 H Calcium 8.1 L Magnesium 2.1 Total Bilirubin 0.5 AST 19 ALT 17 Alkaline Phosphatase 72 Total Protein 6.0 L Albumin 2.6 L
[2024-05-10 12:48] LABS: Glucose Point of Care 122 mg/dl (65-105)
--- NOTE | 2024-05-10 12:50 | P.PNIM_ITS ---
Progress Note: A&P Assessment and Plan (1) Altered mental status: Code(s): R41.82 - Altered mental status, unspecified Status: Acute Assessment and Plan: Patient with AMS 05/05/2024. Concern for CVA given recent AFib and on heparin. Heparin drip stopped. Stat CT brain showing no bleed or acute findings. CTA head/neck showing no acute findings. WBC trending down but now having fevers and PCT 3.[address] Ch/A/P showing worsening acute cholecystitis. Discussed with GenSurg. Status post cholecystostomy tube placement 05/06/2024 Bile was sent for aerobic anaerobic culture which is growing g variable bacilli. Await identification Remains on IV Zosyn which has been switched to oral Augmentin Altered mental status improving (2) Atrial fibrillation: Code(s): I48.91 - Unspecified atrial fibrillation Status: Acute Assessment and Plan: Patient noted to have tachycardia and irregular rhythm. EKG (05/04) now showing AFib/RVR (HR 150), LAFB and borderline ST-T wave changes in the high lateral leads. Patient was moved to IMU and Diltiazem drip started. She remains on diltiazem drip Probably related to current GB infection/inflammation. [id number] at least 6. TSH normal on 04/23/24. Echo showing EF 55-60%, indeterminate diastolic fxn and mild MR Started Heparin drip but held related to above. Cards consult. Holding Cozaar given soft BP. Metoprolol added HR better controlled. Continue IV Diltiazem Converted to sinus rhythm On oral metoprolol switched to long-acting at prior to discharge Started on NOAC (3) Acute cholecystitis: Code(s): K81.0 - Acute cholecystitis Status: Acute Assessment and Plan: Patient presents with abdominal pain. CT scan showing distended GB with gallstones, wall thickening and surrounding fat stranding consistent with acute cholecystitis. RUQ US showing similar findings. Patient started on Zosyn. Started on clear liquid diet. General surgery consulted. Appreciate their input. Patient high risk with plan currently to treat conservatively. WBC better today but other inflammatory markers elevated. Continue IV abx. Status post cholecystostomy tube placement 05/06/2024 Continue supportive care. Bile culture has been sent. identified as pansensitive e coli. will switch antibiotics to oral Augmentin (4) Essential hypertension: Code(s): I10 - Essential (primary) hypertension Status: Acute Assessment and Plan: Blood pressure soft at times Continue current medications. (5) Coronary artery disease: Code(s): I25.10 - Atherosclerotic heart disease of [place] coronary artery without angina pectoris Status: Acute Assessment and Plan: Patient with coronary disease. Continue Lipitor. She is not on metoprolol or aspirin. Renexa was on hold but resumed since no surgery planned. QTc okay. (6) Prediabetes: Code(s): R73.03 - Prediabetes Status: Acute Assessment and Plan: Glucose remains well controlled. Continue AccuCheks covering with sliding scale. Hypoglycemia protocol available as needed. Continue to follow Plan Urine retention - Alvarez placed. UOP better. Holding IV fluids. Voiding trial when more ambulatory. Will do void trial today Dysphagia choking episode on 05/07/2023 placed on thickened liquid. Will do MBS in a.m. DVT prophylaxis -NOAC Code status - full Disposition: Needs SNF. Care coordination verified. Subjective Date/time seen: 05/10/24 12:50 Interval history: No overnight events. Feeling good. Does not like her thickened liquid. Awaiting rehab placement Review of Systems Review of Systems: All systems reviewed & are unremarkable except as noted in HPI and below Exam Narrative: Gen - NARD Chest - left base crackles and decreased BS in the right base o/w clear. CV - irregular. Tele showing AFib with improved rate Abd - Soft, distended nontender no guarding or rebound Ext - No pedal edema Neuro -awake and alert, follows commands. Generalized weakness Skin - Warm and dry Objective Data Vital Signs Vital Signs: Vital Signs - 24 hr 05/09/24 14:00 05/09/24 14:05 05/09/24 15:43 Temperature 97.7 F Pulse Rate 68 71 71 Respiratory Rate 20 18 Blood Pressure 142/54 H Pulse Oximetry 94 Oxygen Delivery 05/09/24 16:00 05/09/24 17:43 05/09/24 18:00 Temperature Pulse Rate 74 74 Respiratory Rate Blood Pressure Pulse Oximetry Oxygen Delivery Room Air 05/09/24 18:00 05/09/24 20:00 05/09/24 20:00 Temperature 98.4 F 97.6 F Pulse Rate 73 76 Respiratory Rate 32 H 16 Blood Pressure 136/63 154/67 H Pulse Oximetry 93 94 Oxygen Delivery Room Air 05/09/24 20:00 05/09/24 21:13 05/09/24 21:25 Temperature Pulse Rate 76 74 70 Respiratory Rate 18 18 Blood Pressure Pulse Oximetry Oxygen Delivery 05/10/24 00:00 05/10/24 02:29 05/10/24 02:35 Temperature Pulse Rate 69 65 64 Respiratory Rate 18 18 Blood Pressure Pulse Oximetry Oxygen Delivery 05/10/24 04:00 05/10/24 04:00 05/10/24 08:46 Temperature 97.8 F Pulse Rate 66 69 Respiratory Rate 18 Blood Pressure 150/74 H Pulse Oximetry 96 97 Oxygen Delivery Room Air 05/10/24 08:46 05/10/24 08:57 05/10/24 10:38 Temperature Pulse Rate 67 63 Respiratory Rate 18 18 Blood Pressure Pulse Oximetry Oxygen Delivery Room Air 05/10/24 10:38 Temperature Pulse Rate 67 Respiratory Rate Blood Pressure Pulse Oximetry Oxygen Delivery Intake/Output Intake/Output: Intake & Output 05/07/24 05/08/24 05/09/24 05/10/24 23:59 23:59 23:59 23:59 Intake Total 1292.4 490 390 420 Output Total 2110 2020 1790 150 Balance -817.6 -1530 -1400 270 Meds/Results Medications: Active Medications Generic Name Dose Route Start Last Admin Trade Name Freq PRN Reason Stop Dose Admin Acetaminophen 650 mg 05/03/24 12:48 Acetaminophen 325 Mg Tablet PO Q6H PRN Mild Pain (1-5) Or Fever Hydrocodone Bitart/Acetaminophen 1 tab 05/03/24 12:48 05/06/24 20:26 Hydrocodone/Acetaminophen (*Crx) 5-325 Mg Tablet PO 1 tab Q6H PRN Administration Pain Rated 6 or Greater Albuterol/Ipratropium 3 ml 05/06/24 20:00 05/10/24 08:46 Ipratropium 0.5 Mg/Albuterol Sulfate 2.5 Mg Ampul.Neb 3 Ml INHALATION 3 ml Q6HRT MELISSA Administration Amitriptyline HCl 30 mg 05/02/24 21:00 05/09/24 21:09 Amitriptyline Hcl 10 Mg Tablet PO 30 mg HS MELISSA Administration Amoxicillin/Clavulanate Potassium 1 tablet 05/09/24 21:00 05/10/24 10:38 Amoxicillin/Clavulanate K 875-125 Mg Tab PO 1 tablet Q12HR MELISSA Administration Apixaban 5 mg 05/08/24 09:00 05/10/24 10:39 Apixaban 5 Mg Tablet PO 5 mg Q12HR MELISSA Administration Atorvastatin Calcium 40 mg 05/03/24 09:00 05/10/24 10:39 Atorvastatin 40 Mg Tablet PO 40 mg DAILY MELISSA Administration Cyanocobalamin 2,500 mcg 05/03/24 09:00 05/10/24 10:38 Cyanocobalamin 500 Mcg Tablet PO 2,500 mcg QAM MELISSA Administration Dextrose 12.5 gm 05/02/24 13:48 Dextrose 50% 25 Gm/50 Ml Syringe IV PUSH PRN PRN Hypoglycemia Protocol Glucagon 1 mg 05/02/24 13:48 Glucagon For Inj 1 Mg Vial IM PRN PRN Hypoglycemia Protocol Glucose 15 gm 05/02/24 13:48 Glucose Oral Gel 15 Gm Of Glucse In 37.5 Gm Tube PO PRN PRN Hypoglycemia Protocol Dextrose 1,000 mls @ 100 mls/hr 05/02/24 13:48 Dextrose 5% 1,000 Ml IVPB PRN PRN Hypoglycemia Protocol Insulin Aspart 3 - 6 units 05/02/24 17:00 05/10/24 10:04 Insulin Aspart (*Bkc) 100 Units/Ml SUB-Q Not Given TIDWM [facility] Protocol Levothyroxine Sodium 25 mcg 05/03/24 06:30 05/10/24 06:45 Levothyroxine Sodium 25 Mcg Tablet PO 25 mcg DAILY@0630 [facility] Administration Metoprolol Tartrate 50 mg 05/04/24 18:00 05/10/24 06:45 Metoprolol Tartrate 50 Mg Tab PO 50 mg Q6HR MELISSA Administration Nitroglycerin 0.4 mg 05/02/24 13:50 Nitroglycerin Sl 0.4 Mg Tablet SUBLINGUAL Q5M PRN chest pain Ondansetron HCl 4 mg 05/02/24 03:45 Ondansetron Inj 4 Mg/2 Ml Vial IV PUSH Q4H PRN Nausea Pantoprazole Sodium 40 mg 05/03/24 09:00 05/10/24 10:39 Pantoprazole 40 Mg Tablet PO 40 mg QAM [facility] Administration Ranolazine 1,000 mg 05/04/24 18:00 05/10/24 06:45 Ranolazine 500 Mg Tab.Er.12h PO 1,000 mg Q12H MELISSA Administration Radiology Results: ITS Impressions Abdomen/Pelvis CT 05/02/24 06:27 IMPRESSION: 1. Acute cholecystitis. Upper Quadrant Ultrasound 05/02/24 13:50 IMPRESSION: 1. Acute cholecystitis. Head CT 05/05/24 10:51 IMPRESSION: 1. Stable moderate nonspecific cerebral white matter disease, which likely represents chronic small vessel ischemic disease. Head/Neck CTA 05/05/24 12:19 IMPRESSION: 1. Moderate nonspecific cerebral white matter disease, which likely represents chronic small vessel ischemic disease. 2. No aneurysm or significant intracranial arterial stenosis. 3. 0% stenosis of the proximal internal carotid arteries relative to normal distal artery lumen diameters (NASCET criteria). Chest/Abdomen/Pelvis CT 05/05/24 15:08 IMPRESSION: 1. Worsened acute cholecystitis. 2. Small right pleural effusion. Cholecystostomy 05/06/24 15:15 IMPRESSION: 1. Successful ultrasound-guided cholecystostomy tube placement. 2. 8 mm clear, orange bile was sent for aerobic and anaerobic cultures. 3. The catheter will be managed by Dr. Mckenzie. A catheter cholangiogram may be performed not less than 48 hours after tube placement if clinically indicated to assess cystic duct patency. If cholecystectomy is not eventually performed and the infectious episode has resolved, the tube may be removed over a guidewire, p referably not less than 3 weeks after placement to allow time for a mature catheter tract to form to prevent bile leakage and peritonitis. Chest X-Ray 05/08/24 16:21 IMPRESSION: Mild pulmonary vascular congestion without focal infiltrate. Labs Labs: Laboratory Results - last 24 hr 05/09/24 05/09/24 05/10/24 15:33 20:14 05:18 WBC 7.5 RBC 3.41 L Hgb 10.1 L Hct 31.6 L MCV 92.7 MCH 29.6 MCHC 32.0 RDW 15.0 H Plt Count 186 MPV 10.2 Immature Gran % (Auto) 1.9 H Neut % (Auto) 68.7 Lymph % (Auto) 21.3 [place] % (Auto) 5.6 Eos % (Auto) 2.1 Baso % (Auto) 0.4 Lymph # (Auto) 1.60 [place] # (Auto) 0.4 Eos # (Auto) 0.2 Baso # (Auto) 0.0 Abs Immat Gran (auto) 0.14 H Absolute Neuts (auto) 5.2 Absolute Nucleated RBC 0.000 Nucleated RBC % 0.0 Atypical Lymphocytes Present Platelet Estimate Adequate Schistocytes None seen Sodium 139 Potassium 3.3 L Chloride 104 Carbon Dioxide 29 Anion Gap 6 BUN 20 H Creatinine 0.42 L Estim Creat Clear Calc 81 Estimated GFR > 60 Glucose 110 POC Capillary Glucose 133 H 150 H Calcium 8.1 L Magnesium 2.1 Total Bilirubin 0.5 AST 19 ALT 17 Alkaline Phosphatase 72 Total Protein 6.0 L Albumin 2.6 L 05/10/24 05/10/24 09:02 12:45 WBC RBC Hgb Hct MCV MCH MCHC RDW Plt Count MPV Immature Gran % (Auto) Neut % (Auto) Lymph % (Auto) [place] % (Auto) Eos % (Auto) Baso % (Auto) Lymph # (Auto) [place] # (Auto) Eos # (Auto) Baso # (Auto) Abs Immat Gran (auto) Absolute Neuts (auto) Absolute Nucleated RBC Nucleated RBC % Atypical Lymphocytes Platelet Estimate Schistocytes Sodium Potassium Chloride Carbon Dioxide Anion Gap BUN Creatinine Estim Creat Clear Calc Estimated GFR Glucose POC Capillary Glucose 115 H 122 H Calcium Magnesium Total Bilirubin AST ALT Alkaline Phosphatase Total Protein Albumin
[2024-05-10 17:57] LABS: Glucose Point of Care 112 mg/dl (65-105)
[2024-05-10 19:48] LABS: Glucose Point of Care 123 mg/dl (65-105)
[2024-05-10] MEDS: AMITRIPTYLINE HCL 10 MG TABLET 30 MG PO (20:49)
[2024-05-11] VITALS (9 sets, daily range): BP systolic 126; BP diastolic 67; PULSE 63–75; RESP 16; TEMP 36.9; O2SAT 96–98
[2024-05-11] MEDS: METOPROLOL TARTRATE 50 MG TAB PO ×3 (01:10→13:07)
[2024-05-11] MEDS: IPRATROPIUM 0.5 MG/ALBUTEROL SULFATE 2.5 MG AMPUL.NEB 3 ML INHALATION ×2 (03:20→07:40)
[2024-05-11 06:05] LABS: Basophils Percent Auto 0.3 % (0.2-1.2); Eosinophils Absolute Auto 0.1 K/mm3 (0-0.3); Eosinophils Percent Auto 1.4 % (0-4.4); Hematocrit 31.5 % (37.0-47.0); Immature Granulocyte Percent A 1.3 % (0-0.5); Lymphocytes Absolute Auto 1.64 K/mm3 (0.9-3.2); Lymphocytes Percent Auto 20.6 % (18.3-44.2); Mean Corpuscular HGB Conc 31.7 g/dl (32-36); Mean Corpuscular Hemoglobin 29.9 pg (26-34); Monocytes Absolute Auto 0.4 K/mm3 (0.1-0.6); Monocytes Percent Auto 5.1 % (2.6-8.5); Neutrophils Absolute Auto 5.7 K/mm3 (1.3-6.7); Neutrophils Percent Auto 71.3 % (45.5-73.1); Platelet Count Result 235 k/mm3 (150-375); Red Blood Count 3.35 M/mm3 (4.2-5.4); Red Cell Distribution Width 14.8 % (11.5-14.5)
[2024-05-11 06:12] LABS: Alanine Aminotransferase 17 U/L (6-35); Albumin Level 2.5 g/dL (3.5-5.1); Alkaline Phosphatase 74 U/L (38-126); Anion Gap 7 mmol/L (4-12); Aspartate Amino Transferase 19 U/L (14-36); Bilirubin,Total 0.5 mg/dL (0.2-1.3); Blood Urea Nitrogen 17 mg/dL (7-17); Calcium 8.1 mg/dL (8.4-10.2); Carbon Dioxide 26 mmol/L (22-30); Chloride 105 mmol/L (98-107); Estimated CRCL calculation 79 ml/min; Estimated Glomerular Filt Rate > 60; Glucose 109 mg/dL (65-110); Potassium 3.3 mmol/L (3.4-5.0); Sodium 138 mmol/L (137-145)
[2024-05-11] MEDS: RANOLAZINE 500 MG TAB.ER.12H 1000 MG PO (06:14)
[2024-05-11] MEDS: LEVOTHYROXINE SODIUM 25 MCG TABLET PO (06:14)
[2024-05-11 07:36] LABS: Hypochromasia 1+; Platelet Estimate Adequate (Adequate); Schistocytes None Seen
[2024-05-11 07:37] LABS: Atypical Lymphocytes Present
[2024-05-11 08:55] LABS: Glucose Point of Care 104 mg/dl (65-105)
[2024-05-11] MEDS: PANTOPRAZOLE 40 MG TABLET PO (09:02)
[2024-05-11] MEDS: CYANOCOBALAMIN 500 MCG TABLET 2500 MCG PO (09:02)
[2024-05-11] MEDS: AMOXICILLIN/CLAVULANATE K 875-125 MG TAB 1 TABLET PO (09:02)
[2024-05-11] MEDS: ATORVASTATIN 40 MG TABLET PO (09:03)
[2024-05-11] MEDS: POTASSIUM CHLORIDE 20 MEQ ER TABLET 40 MEQ PO (09:03)
[2024-05-11] MEDS: APIXABAN 5 MG TABLET PO (09:03)
--- NOTE | 2024-05-11 10:20 | PC.NURSE ---
[place] [facility] [place]
--- NOTE | 2024-05-11 11:03 | PCSTNOTE ---
Please refer to the Modified Barium Swallow Evaluation in the EMR. Pt was seen for an Modified Barium swallow due to overt s/s of aspiration exhibited during a bedside swallow evaluation as well as reported by the pts daughter. The pt was seated for a lateral view and presented with thin liquids, pudding consistency barium, and a cracker coated with barium in controlled amounts via a spoon. She was also tested with thin liquids in uncontrolled amounts via a cup and a straw. The oral stages were within functional limits. During the pharyngeal stage, the pt presented with intermittent flash laryngeal penetration with the uncontrolled thin liquid trials via the cup and straw. All instances were considered flash as it was shallow and cleared without aspiration. Trace/mild pyriform sinus residual was also exhibited but it was cleared with a dry swallow. No aspiration occurred. Impression: functional swallowing Recommendation: level 6 diet with regular liquids. No further ST.
--- NOTE | 2024-05-11 11:40 | PM.DS ---
DS: Admitting Diagnosis Discharge Date 05/11/2024 Admitting Diagnosis Sepsis DS: Discharge Diagnosis Discharge Diagnosis (1) Altered mental status: Code(s): R41.82 - Altered mental status, unspecified Status: Acute (2) Atrial fibrillation: Code(s): I48.91 - Unspecified atrial fibrillation Status: Acute (3) Acute cholecystitis: Code(s): K81.0 - Acute cholecystitis Status: Acute (4) Essential hypertension: Code(s): I10 - Essential (primary) hypertension Status: Acute (5) Coronary artery disease: Code(s): I25.10 - Atherosclerotic heart disease of [place] coronary artery without angina pectoris Status: Acute (6) Prediabetes: Code(s): R73.03 - Prediabetes Status: Acute DS: Summary Hospital Course Hospital Course: # Altered mental status: Patient with AMS 05/05/2024. Concern for CVA given recent AFib and on heparin. Heparin drip stopped. Stat CT brain showing no bleed or acute findings. CTA head/neck showing no acute findings. WBC trending down but now having fevers and PCT 3.[address] Ch/A/P showing worsening acute cholecystitis. Discussed with Demarcusrcatie. Status post cholecystostomy tube placement 05/06/2024 Bile was sent for aerobic anaerobic culture which is growing g variable bacilli. Await identification Remains on IV Zosyn which has been switched to oral Augmentin Altered mental status resolved # Atrial fibrillation: Patient noted to have tachycardia and irregular rhythm. EKG (05/04) now showing AFib/RVR (HR 150), LAFB and borderline ST-T wave changes in the high lateral leads. Patient was moved to IMU and Diltiazem drip started. She remains on diltiazem drip Probably related to current GB infection/inflammation. [id number] at least 6. TSH normal on 04/23/24. Echo showing EF 55-60%, indeterminate diastolic fxn and mild MR Started Heparin drip but held related to above. Cards consult. Holding Cozaar given soft BP. Metoprolol added HR better controlled. Continue IV Diltiazem Converted to sinus rhythm On oral metoprolol switched to long-acting at prior to discharge Started on NOAC # Acute cholecystitis: Patient presents with abdominal pain. CT scan showing distended GB with gallstones, wall thickening and surrounding fat stranding consistent with acute cholecystitis. RUQ US showing similar findings. Patient started on Zosyn. Started on clear liquid diet. General surgery consulted. Appreciate their input. Patient high risk with plan currently to treat conservatively. WBC better today but other inflammatory markers elevated. Continue IV abx. Status post cholecystostomy tube placement 05/06/2024 Continue supportive care. Bile culture has been sent. identified as pansensitive e coli. will switch antibiotics to oral Augmentin # Essential hypertension: Blood pressure soft at times Continue current medications. # Coronary artery disease: Patient with coronary disease. Continue Lipitor. She is not on metoprolol or aspirin. Renexa was on hold but resumed since no surgery planned. QTc okay. # Prediabetes: Glucose remains well controlled. Continue AccuCheks covering with sliding scale. Hypoglycemia protocol available as needed. Continue to follow # Urine retention - Alvarez placed. UOP better. Holding IV fluids. Voiding trial done which she failed. Alvarez replaced back again. Voiding trial when more ambulatory # Dysphagia choking episode on 05/07/2023 placed on thickened liquid. MBS performed. On bite size level 6 # DVT prophylaxis -NOAC # Code status - full # Disposition: Needs SNF. Care coordination verified. Time Spent with Patient Time attestation: Total time spent providing and/or coordinating discharge services: 45 minutes Exam Narrative: Gen - NARD Chest - left base crackles and decreased BS in the right base o/w clear. CV - irregular. Tele showing AFib with improved rate Abd - Soft, distended nontender no guarding or rebound Ext - No pedal edema Neuro -awake and alert, follows commands. Generalized weakness Skin - Warm and dry DS: Data Data Completed and Pending Labs on day of discharge: Labs from last 24 hours 05/11/24 05/11/24 05/10/24 08:33 05:21 19:45 WBC 8.0 RBC 3.35 L Hgb 10.0 L Hct 31.5 L MCV 94.0 MCH 29.9 MCHC 31.7 L RDW 14.8 H Plt Count 235 MPV 10.0 Immature Gran % (Auto) 1.3 H Neut % (Auto) 71.3 Lymph % (Auto) 20.6 Johnson % (Auto) 5.1 Eos % (Auto) 1.4 Baso % (Auto) 0.3 Lymph # (Auto) 1.64 Johnson # (Auto) 0.4 Eos # (Auto) 0.1 Baso # (Auto) 0.0 Abs Immat Gran (auto) 0.10 H Absolute Neuts (auto) 5.7 Absolute Nucleated RBC 0.000 Nucleated RBC % 0.0 Atypical Lymphocytes Present Platelet Estimate Adequate Hypochromasia 1+ Schistocytes None seen Sodium 138 Potassium 3.3 L Chloride 105 Carbon Dioxide 26 Anion Gap 7 BUN 17 Creatinine 0.42 L Estim Creat Clear Calc 79 Estimated GFR > 60 Glucose 109 POC Capillary Glucose 104 123 H Calcium 8.1 L Magnesium 2.0 Total Bilirubin 0.5 AST 19 ALT 17 Alkaline Phosphatase 74 Total Protein 5.0 L Albumin 2.5 L 05/10/24 05/10/24 17:52 12:45 WBC RBC Hgb Hct MCV MCH MCHC RDW Plt Count MPV Immature Gran % (Auto) Neut % (Auto) Lymph % (Auto) Johnson % (Auto) Eos % (Auto) Baso % (Auto) Lymph # (Auto) Johnson # (Auto) Eos # (Auto) Baso # (Auto) Abs Immat Gran (auto) Absolute Neuts (auto) Absolute Nucleated RBC Nucleated RBC % Atypical Lymphocytes Platelet Estimate Hypochromasia Schistocytes Sodium Potassium Chloride Carbon Dioxide Anion Gap BUN Creatinine Estim Creat Clear Calc Estimated GFR Glucose POC Capillary Glucose 112 H 122 H Calcium Magnesium Total Bilirubin AST ALT Alkaline Phosphatase Total Protein Albumin Preliminary micro results at discharge 05/06/24 15:05 Anaerobic Culture - Preliminary Gallbladder Fluid Imaging Radiologist's impression: ITS Impressions Chest X-Ray 05/01/24 20:44 IMPRESSION: 1. Mild atelectasis at right lung base. 2. Cardiomegaly. Abdomen/Pelvis CT 05/02/24 06:27 IMPRESSION: 1. Acute cholecystitis. Upper Quadrant Ultrasound 05/02/24 13:50 IMPRESSION: 1. Acute cholecystitis. Head CT 05/05/24 10:51 IMPRESSION: 1. Stable moderate nonspecific cerebral white matter disease, which likely represents chronic small vessel ischemic disease. Head/Neck CTA 05/05/24 12:19 IMPRESSION: 1. Moderate nonspecific cerebral white matter disease, which likely represents chronic small vessel ischemic disease. 2. No aneurysm or significant intracranial arterial stenosis. 3. 0% stenosis of the proximal internal carotid arteries relative to normal distal artery lumen diameters (NASCET criteria). Chest/Abdomen/Pelvis CT 05/05/24 15:08 IMPRESSION: 1. Worsened acute cholecystitis. 2. Small right pleural effusion. Cholecystostomy 05/06/24 15:15 IMPRESSION: 1. Successful ultrasound-guided cholecystostomy tube placement. 2. 8 mm clear, orange bile was sent for aerobic and anaerobic cultures. 3. The catheter will be managed by Dr. Mckenzie. A catheter cholangiogram may be performed not less than 48 hours after tube placement if clinically indicated to assess cystic duct patency. If cholecystectomy is not eventually performed and the infectious episode has resolved, the tube may be removed over a guidewire, preferably not less than 3 weeks after placement to allow time for a mature catheter tract to form to prevent bile leakage and peritonitis. Chest X-Ray 05/08/24 16:21 IMPRESSION: Mild pulmonary vascular congestion without focal infiltrate. Modified Barium Swallow 05/11/24 10:30 IMPRESSION: Transient and shallow, flash laryngeal penetration without aspiration. Please correlate with speech pathologist findings and specific feeding recommendations. Discharge Plan Discharge Attending physician on discharge: Reza Danielson Consulting providers: Melissa Mckenzie; Joel Sanches Discharging Clinician: Reza Danielson Anticipated Discharge Date/Time: 05/11/24 11:42 Patient Disposition: SNF Activity: as tolerated Diet: low fat and other - see discharge instructions Discharge Instructions: Dysphagia diet soft and bite size level 6 low-fat Continue cholecystostomy tube until follow-up with general surgery. Continue Alvarez catheter and changed at least every month. Void trial when more ambulatory. Patient Instructions: Apixaban (By mouth) Patient Language: Yi Stand Alone Forms: General Discharge Information, Residential Discharge Follow-up/Referrals: Melissa Mckenzie MD [Physician] - 2 Weeks Joel Sanches MD [Physician] - Discharge Medications: New ipratropium-albuterol 0.5 mg-3 mg(2.5 mg base)/3 mL Solution For Nebulization 3 ml inhalation Q6HRT Qty: 30 0RF Eliquis 5 mg Tablet 5 mg PO Q12HR Qty: 60 0RF amoxicillin-pot clavulanate 875-125 mg tablet 1 tablet PO Q12H Qty: 30 0RF metoprolol succinate 200 mg tablet extended release 24 hr 200 mg PO DAILY Qty: 30 0RF Continued ranolazine [Ranexa] 500 mg tablet extended release 12 hr 1,000 mg PO Q12H levothyroxine 25 mcg tablet 25 mcg PO DAILY Qty: 90 1RF (DME) egg crate mattress for chair See Rx Instructions .Route .MEDSUPPLY Qty: 1 0RF Rx Instructions: As directed (DME) duoderm dressing See Rx Instructions .Route .MEDSUPPLY Qty: 1 0RF Rx Instructions: As directed cyanocobalamin (vitamin B-12) 2,500 mcg Tablet 2,500 mcg PO QAM Qty: 90 0RF nitroglycerin 0.4 mg tablet, sublingual 0.4 mg sublingual Q5M PRN (Reason: chest pain) atorvastatin 40 mg tablet 40 mg PO DAILY Qty: 90 3RF omeprazole 20 mg capsule,delayed release(DR/EC) 40 mg PO DAILY Qty: 180 2RF Rx Instructions: before breakfast ondansetron HCl 4 mg tablet See Rx Instructions .ROUTE .COMPLEX Qty: 40 0RF Dose Instruction: TAKE 1 TABLET BY MOUTH TWICE DAILY NEEDED FOR NAUSEA Rx Instructions: TAKE 1 TABLET BY MOUTH TWICE DAILY NEEDED FOR NAUSEA amitriptyline 10 mg tablet 30 mg PO .HS Qty: 270 1RF Discontinued losartan 100 mg tablet See Rx Instructions .ROUTE .COMPLEX Qty: 90 3RF Dose Instruction: TAKE 1 TABLET BY MOUTH DAILY Rx Instructions: TAKE 1 TABLET BY MOUTH DAILY hydrochlorothiazide 25 mg tablet 25 mg PO DAILY Qty: 90 1RF Date of admission: 05/03/24 13:10 Primary Care Provider: Milagros Haq Admitting Provider: Inessa Tracey V. Attending physician on admission: Inessa Tracey V. Condition: Stable
[2024-05-11 12:37] LABS: Glucose Point of Care 117 mg/dl (65-105)
--- NOTE | 2024-05-12 07:11 | P.CDI_ITS ---
CDI Query Clarification Request Discharge summary mentions sepsis. Sepsis was not previously mentioned in progress notes. 1) Please clarify if sepsis was ruled in or ruled out 2) If ruled in, please clarify if sepsis was present on admission The medical record reflects the following: Risk factors: Patient is an 84-year-old female who presents ER with abdominal pain. Sudden onset this afternoon. Moves in the back and up into the chest. Tried taking nitroglycerin so has discomfort. She has been vomiting. No fevers or chills or sweats. Unsure of what provoked her discomfort she has not had this pain before. Dx from H&P (1) Acute cholecystitis: Code(s): K81.0 - Acute cholecystitis Status: Acute Assessment and Plan: Patient presents with abdominal pain. CT scan showing distended GB with gallstones, wall thickening and surrounding fat stranding consistent with acute cholecystitis. Patient started on Zosyn. Start on clear liquid diet. She is on IV fluids. General surgery consulted. Appreciate their input. Patient high risk plans currently to treat conservatively. Gallbladder ultrasound ordered. Continue supportive care with current analgesics. Wean off IV fluids. (2) Essential hypertension: Code(s): I10 - Essential (primary) hypertension Status: Acute Assessment and Plan: Patient's blood pressure was reviewed on 05/02 Blood pressure elevated. Will review home medications and start appropriate medications. (3) Coronary artery disease: Code(s): I25.10 - Atherosclerotic heart disease of [place] coronary artery without angina pectoris Status: Acute Assessment and Plan: Patient with coronary disease. Resume Lipitor. She does not appear to be on metoprolol over aspirin. Hold Renexa. (4) Prediabetes: Code(s): R73.03 - Prediabetes Status: Acute Assessment and Plan: Start sliding scale. Check A1c. Clinical findings: WBC trending down but now having fevers and PCT 3.[address] Ch/A/P showing worsening acute cholecystitis. Treatment: IV Zosyn which has been switched to oral Augmentin <Emmy Feliz RN - Last Filed: 05/12/24 07:23> Provider Comments Sepsis ruled in Sepsis present on admission <Reza Danielson MD - Last Filed: 05/12/24 18:35>
== END 2024-05-11 13:50 | DRG 872 ==
LOC: ANHED 05-02 00:38 → ANH3MEDSUR 05-02 04:20 → ANHIMU 05-04 12:57 → ANH3MED 05-11 07:53 → ANHIMU 05-12 11:25
PROVIDERS: Internal Medicine; Student in an Organized Health Care Education/Training Program; Admitting Provider Internal Medicine; Emergency Provider Emergency Medicine; PCP Family Medicine; Visit Provider Internal Medicine
DX: A41.9 Sepsis, unspecified organism (principal); K81.0 Acute cholecystitis; I10 Essential (primary) hypertension; I25.119 Atherosclerotic heart disease of native coronary artery with unspecified angina pectoris; K21.9 Gastro-esophageal reflux disease without esophagitis; E03.9 Hypothyroidism, unspecified; E53.8 Deficiency of other specified B group vitamins; E55.9 Vitamin D deficiency, unspecified; R73.03 Prediabetes; I48.91 Unspecified atrial fibrillation; R33.9 Retention of urine, unspecified; E78.2 Mixed hyperlipidemia; R13.11 Dysphagia, oral phase; B96.20 Unspecified Escherichia coli [E. coli] as the cause of diseases classified elsewhere
CPT/HCPCS: 36415; 47490; 70450; 70496; 70498; 71045; 71046; 71250; 74176; 74177; 76705; 80053; 80069; 81001; 82948; 83690; 83735; 84100; 84145; 84484; 85025; 85055; 85610; 85730; 86140; 87040; 87070; 87075; 87086; 87186; 87205; 87637; 92610; 92611; 93005; 94640; 96361; 96365; 96372; 96375; 96376; 97110; 97161; 97165; 97530; 97535; 99285; A9270; C8929; G0378; J1644; J1650; J1940; J2270; J2405; J2543; J3010; J3475; J7030; Q9957; Q9967

== ENCOUNTER 2024-05-30 14:55 | Emergency (ER) | payer MEDICARE, SELFPAY ==
[2024-05-30 14:50] VITALS: BP 149/80; PULSE 70; RESP 20; TEMP 36.9; O2SAT 94
[2024-05-30] MEDS: SODIUM CHLORIDE 0.9% IV 1,000 ML 999 ML IV CONT (15:18)
[2024-05-30 15:28] LABS: Basophils Percent Auto 0.1 % (0.2-1.2); Eosinophils Absolute Auto 0.1 K/mm3 (0-0.3); Eosinophils Percent Auto 1.5 % (0-4.4); Hematocrit 29.8 % (37.0-47.0); Hemoglobin 9.3 g/dL (12.0-15.0); Immature Granulocyte Absolute 0.04 K/mm3 (0.00-0.031); Immature Granulocyte Percent A 0.5 % (0-0.5); Lymphocytes Absolute Auto 2.03 K/mm3 (0.9-3.2); Lymphocytes Percent Auto 24.8 % (18.3-44.2); Mean Corpuscular HGB Conc 31.2 g/dl (32-36); Mean Corpuscular Hemoglobin 30.1 pg (26-34); Mean Corpuscular Volume 96.4 fl (80-100); Mean Platelet Volume 10.2 fl (7.4-10.4); Monocytes Absolute Auto 0.8 K/mm3 (0.1-0.6); Monocytes Percent Auto 9.6 % (2.6-8.5); Neutrophils Absolute Auto 5.2 K/mm3 (1.3-6.7); Neutrophils Percent Auto 63.5 % (45.5-73.1); Platelet Count Result 193 k/mm3 (150-375); Red Blood Count 3.09 M/mm3 (4.2-5.4); Red Cell Distribution Width 15.9 % (11.5-14.5); White Blood Count 8.2 K/mm3 (4.5-10.0)
[2024-05-30 15:38] LABS: Partial Thromboplastin Time 71.6 Seconds (22.3-36.8)
[2024-05-30 15:50] LABS: Add Urine Microscopic? YES; Appearance Urine Clear (Clear); Bacteria Urine None Seen /hpf; Bilirubin Urine Negative (Negative); Blood Urine Trace (Negative); Budding Yeast Urine Present /hpf; Calcium Oxalate Crystals Urine Present /hpf; Color Urine Yellow (Yellow); Glucose Urine UA Negative (Negative); Ketones Urine Negative (Negative); Leukocyte Esterase Ur 1+ LEU/UL (Negative); Nitrate Urine Negative (Negative); Non Pathogenic Casts 0-2; Protein Urine Negative (Negative); Specific Grav Ur 1.014 (1.001-1.035); Squamous Epithelial Cell Urine None Seen /hpf (Few); Urobilinogen Urine 0.2 mg/dL (<2.0); WBC Urine 21-50 /hpf (0-3)
[2024-05-30 15:52] LABS: Lactic Acid Reflex 0.9 mmol/L (0.7-2.0)
[2024-05-30 15:53] LABS: Alanine Aminotransferase 11 U/L (6-35); Albumin Level 2.7 g/dL (3.5-5.1); Alkaline Phosphatase 96 U/L (38-126); Anion Gap 7 mmol/L (4-12); Aspartate Amino Transferase 18 U/L (14-36); Bilirubin,Total 0.7 mg/dL (0.2-1.3); Blood Urea Nitrogen 12 mg/dL (7-17); Calcium 8.2 mg/dL (8.4-10.2); Carbon Dioxide 30 mmol/L (22-30); Chloride 101 mmol/L (98-107); Estimated Glomerular Filt Rate > 60; Glucose 107 mg/dL (65-110); Potassium 3.7 mmol/L (3.4-5.0); Sodium 138 mmol/L (137-145)
--- NOTE | 2024-05-30 16:14 | PC.NURSE ---
care and report given to KALLI Beckford. all questions answered.
[2024-05-30 16:18] VITALS: BP 159/73; PULSE 70; RESP 16; O2SAT 95
--- NOTE | 2024-05-30 16:23 | PC.NURSE ---
Pt. c/o 01/08 lower back pain. Pt. states she has been having back spasms. Dr. Genao notified.
[2024-05-30] MEDS: MORPHINE SULFATE (*CRX) 2 MG/ML INJ IV PUSH (16:53)
[2024-05-30 16:54] VITALS: BP 152/69; PULSE 73; RESP 16; O2SAT 99
[2024-05-30 17:23] LABS: Influenza A QL RT-PCR Negative (Negative); Influenza B QL RT-PCR Negative (Negative); RSV RNA, RT-PCR Negative (Negative); SARS-CoV-2 RNA PCR Negative (Negative)
[2024-05-30 17:38] VITALS: BP 139/68; PULSE 70; RESP 16; O2SAT 94
[2024-05-30] MEDS: ONDANSETRON INJ 4 MG/2 ML VIAL IV PUSH (17:58)
--- NOTE | 2024-05-30 17:59 | ED.GENADULT ---
HPI - General Adult General Chief complaint: Urogenital-Female <Ta Genao MD - Last Filed: 05/30/24 19:02> Stated complaint: ?UTI <Ta Genao MD - Last Filed: 05/30/24 19:02> Time Seen by Provider: 05/30/24 15:01 <Ta Genao MD - Last Filed: 05/30/24 19:02> History of Present Illness HPI narrative: Patient is an 84-year-old female who presents ER with concerns for UTI with her 2 daughters. Patient has had decreased mental status over last 2 days while at her long term. She has received muscle relaxers and tramadol for some chronic back pain that acutely worsened after some therapy. Patient recently hospitalized and had cholecystostomy tube for acute cholecystitis. No reports belly pain. Patient does not communicate with me and history is obtained from the daughters despite her being oriented for nursing staff. <Ta Genao MD - Last Filed: 05/30/24 19:02> Related Data Home medications: Home Medications ?Medication ?Instructions ?Recorded ?Confirmed ?Last Taken ?Type ranolazine 500 mg tablet,extended 1,000 mg PO Q12H 05/02/20 05/26/24 05/14/23 History release,12 hr (Ranexa) nitroglycerin 0.4 mg sublingual 0.4 mg sublingual Q5M PRN chest 05/02/24 05/26/24 Unknown History tablet pain <Ta Genao MD - Last Filed: 05/30/24 19:02> Allergies/adverse reactions: Allergies Allergy/AdvReac Type Severity Reaction Status Date / Time alendronate sodium Allergy Unknown Pt does Verified 05/26/24 12:49 remember levofloxacin Allergy Unknown Pt does Verified 05/26/24 12:49 not remember hydrocodone AdvReac Mild IF SHE Verified 05/26/24 12:49 TAKES 250 MG SHE IS OKAY, 500 MG SHE HAS NAUSEA AND V <Ta Genao MD - Last Filed: 05/30/24 19:02> Review of Systems Review of Systems: ROS unobtainable: Yes unobtainable due to medical condition <Ta Genao MD - Last Filed: 05/30/24 19:02> [facility] Past Medical History Medical History: Medical History Diarrhea Coronary artery disease Prior cardiac catheterization showed mild plaque in the LAD and 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 Patient of Dr. Bereket Olson. Arthritis Prediabetes Essential hypertension Gastroesophageal reflux disease Hypothyroidism Mixed hyperlipidemia Seasonal allergic rhinitis Vitamin B12 deficiency Vitamin D deficiency <Ta Genao MD - Last Filed: 05/30/24 19:02> Surgical History Surgical History: Surgical History History of cardiac catheterization Results as above. History of colonoscopy with polypectomy History of appendectomy History of cataract extraction History of hysterectomy <Ta Genao MD - Last Filed: 05/30/24 19:02> Family History Family History: Family History Father Lung cancer Sibling Breast cancer <Ta Genao MD - Last Filed: 05/30/24 19:02> Social History Social History: Social History Social History: Surrogate medical decision maker: Jodi Lewis, daughter. Code status: Full code. Smoking status: Never smoker Second hand tobacco smoke exposure: No Alcohol intake: never Substance use: never Substance use type: does not use Do You Feel Safe in your Home?: Yes Lack of Transportation: No Lack of Food: Never True Current Housing: I Have Housing Concerned About Future Housing: No Difficulty Paying Gas/Electric Bills: No Difficulty Paying for Meds: No Currently Unemployed: No Education: High School Diploma/GED Difficulty w/ Childcare or Family Care: No Living arrangements: with family Additional living arrangements comments: The patient lives in [place] with her daughter Jodi. 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 Spiritual care concerns: No Agree to blood products: Yes <Ta Genao MD - Last Filed: 05/30/24 19:02> Exam Narrative: GENERAL: Fatigue-appearing, well-nourished, and in no acute distress. HEAD: Normocephalic, atraumatic. EYES: PERRL and EOMI. ENT: Mucous membranes moist. CHEST: Clear to auscultation. No respiratory distress. HEART: Regular rate and rhythm. Normal peripheral pulses. ABDOMEN: Soft, nontender, nondistended. Normal appearing cholecystostomy tube site. Back: No reproducible midline tenderness the T/L-spine. Mild paraspinal tenderness L1 region. EXTREMITIES: Normal range of motion. No edema. SKIN: Warm, dry, no rash. NEURO: Awake and alert. No facial droop. <Ta Genao MD - Last Filed: 05/30/24 19:02> Course Course Emergency Course: TAMMIE to Dr. Loera with CT pending. Labs unremarkable. Morphine for pain but patient also vomiting. Likely will require admission for her weakness and confusion. <Ta Genao MD - Last Filed: 05/30/24 19:02> Vital Signs Vital signs: Vital Signs Temperature 98.5 F 05/30/24 14:50 Pulse Rate 70 05/30/24 14:50 Respiratory Rate 20 05/30/24 14:50 Blood Pressure 149/80 H 05/30/24 14:50 Pulse Oximetry 94 05/30/24 14:50 Oxygen Delivery Room Air 05/30/24 14:50 Temperature 98.5 F 05/30/24 14:50 Pulse Rate 70 05/30/24 18:02 Respiratory Rate 16 05/30/24 18:02 Blood Pressure 152/66 H 05/30/24 18:02 Pulse Oximetry 92 05/30/24 18:02 Oxygen Delivery Room Air 05/30/24 14:50 <Ta Genao MD - Last Filed: 05/30/24 19:02> Vital Signs Temperature 98.5 F 05/30/24 14:50 Pulse Rate 70 05/30/24 14:50 Respiratory Rate 20 05/30/24 14:50 Blood Pressure 149/80 H 05/30/24 14:50 Pulse Oximetry 94 05/30/24 14:50 Oxygen Delivery Room Air 05/30/24 14:50 Temperature 98.5 F 05/30/24 14:50 Pulse Rate 70 05/30/24 18:02 Respiratory Rate 16 05/30/24 18:02 Blood Pressure 152/66 H 05/30/24 18:02 Pulse Oximetry 92 05/30/24 18:02 Oxygen Delivery Room Air 05/30/24 14:50 <Shahla Loera MD - Last Filed: 05/30/24 20:28> Medical Decision Making [facility] Narrative Medical decision making narrative: Luz Maria: Patient was signed out to me by Dr. Genao pending CT abdomen pelvis. CT abdomen and pelvis with IV contrast was obtained at this time and bony interpreted by me revealing: IMPRESSION: 1. Status post cholecystostomy. Minimal fat stranding around the gallbladder. 2. Minimal fluid in the area of the pelvis. 3. No evidence of appendicitis, diverticulitis or intestinal obstruction. Patient and family members were updated regarding blood work and imaging results. At this time, I did inform them that patient's urinalysis does have 1+ leuk esterases and 21-50 white blood cells consistent with urinary tract infection. Patient was administered 1 g of IV Rocephin in the emergency department. I did inform the family members that I believe that the patient's muscle relaxers, Flexeril which dose was recently increased on Fridays when family member states the patient symptoms started is likely contributing to her symptoms. I would recommend decreasing the dose back to 5 mg or administering in the evening and not in the morning so the patient is able to perform her rehab exercises. Family members are agreeable with this plan. Script for cephalexin was sent to patient's pharmacy to take as prescribed. Patient was instructed to follow-up with her primary care physician within the next 3-5 days and return to the ED if any new or worsening symptoms develop. She was discharged in stable condition. <Shahla Loera MD - Last Filed: 05/30/24 20:28> Vital Signs Vital Signs: Vital Signs Temperature 98.5 F 05/30/24 14:50 Pulse Rate 70 05/30/24 14:50 Respiratory Rate 20 05/30/24 14:50 Blood Pressure 149/80 H 05/30/24 14:50 Pulse Oximetry 94 05/30/24 14:50 Oxygen Delivery Room Air 05/30/24 14:50 Temperature 98.5 F 05/30/24 14:50 Pulse Rate 70 05/30/24 18:02 Respiratory Rate 16 05/30/24 18:02 Blood Pressure 152/66 H 05/30/24 18:02 Pulse Oximetry 92 05/30/24 18:02 Oxygen Delivery Room Air 05/30/24 14:50 <Ta Genao MD - Last Filed: 05/30/24 19:02> Vital Signs Temperature 98.5 F 05/30/24 14:50 Pulse Rate 70 05/30/24 14:50 Respiratory Rate 20 05/30/24 14:50 Blood Pressure 149/80 H 05/30/24 14:50 Pulse Oximetry 94 05/30/24 14:50 Oxygen Delivery Room Air 05/30/24 14:50 Temperature 98.5 F 05/30/24 14:50 Pulse Rate 70 05/30/24 18:02 Respiratory Rate 16 05/30/24 18:02 Blood Pressure 152/66 H 05/30/24 18:02 Pulse Oximetry 92 05/30/24 18:02 Oxygen Delivery Room Air 05/30/24 14:50 <Shahla Loera MD - Last Filed: 05/30/24 20:28> Lab Data Result diagrams: 05/30/24 15:17 05/30/24 15:17 <Ta Genao MD - Last Filed: 05/30/24 19:02> Labs: Lab Results 05/30/24 05/30/24 05/30/24 Range/Units 15:16 15:17 16:43 WBC 8.2 (4.5-10.0) K/mm3 RBC 3.09 L (4.2-5.4) M/mm3 Hgb 9.3 L (12.0-15.0) g/dL Hct 29.8 L (37.0-47.0) % MCV 96.4 (80-100) fl MCH 30.1 (26-34) pg MCHC 31.2 L (32-36) g/dl RDW 15.9 H (11.5-14.5) % Plt Count 193 (150-375) k/mm3 MPV 10.2 (7.4-10.4) fl Immature Gran % (Auto) 0.5 (0-0.5) % Neut % (Auto) 63.5 (45.5-73.1) % Lymph % (Auto) 24.8 (18.3-44.2) % Roosevelt % (Auto) 9.6 H (2.6-8.5) % Eos % (Auto) 1.5 (0-4.4) % Baso % (Auto) 0.1 L (0.2-1.2) % Lymph # (Auto) 2.03 (0.9-3.2) K/mm3 Roosevelt # (Auto) 0.8 H (0.1-0.6) K/mm3 Eos # (Auto) 0.1 (0-0.3) K/mm3 Baso # (Auto) 0.0 (0.0-0.1) K/mm3 Abs Immat Gran (auto) 0.04 H (0.00-0.031) K/mm3 Absolute Neuts (auto) 5.2 (1.3-6.7) K/mm3 Absolute Nucleated RBC 0.000 (0.0-0.012) K/mm3 Nucleated RBC % 0.0 (0.0-0.2) % PT 23.0 H (11.1-14.7) Seconds INR 2.0 APTT 71.6 H (22.3-36.8) Seconds Sodium 138 (137-145) mmol/L Potassium 3.7 (3.4-5.0) mmol/L Chloride 101 (98-107) mmol/L Carbon Dioxide 30 (22-30) mmol/L Anion Gap 7 (4-12) mmol/L BUN 12 D (7-17) mg/dL Creatinine 0.46 L (0.7-1.0) mg/dL Estim Creat Clear Calc Not Reportable Estimated GFR > 60 (59 - ) Glucose 107 (65-110) mg/dL Lactic Acid 0.9 (0.7-2.0) mmol/L Calcium 8.2 L (8.4-10.2) mg/dL Total Bilirubin 0.7 (0.2-1.3) mg/dL AST 18 (14-36) U/L ALT 11 (6-35) U/L Alkaline Phosphatase 96 (38-126) U/L Total Protein 6.0 L (6.3-8.2) g/dL Albumin 2.7 L (3.5-5.1) g/dL Urine Color Yellow (Yellow) Urine Appearance Clear (Clear) Urine pH 5.0 (5.0-9.0) Ur Specific [place] 1.014 (1.001-1.035) Urine Protein Negative (Negative) mg/dL Urine Glucose (UA) Negative (Negative) mg/dL Urine Ketones Negative (Negative) mg/dL Ur Blood (Man) Trace (Negative) Urine Nitrate Negative (Negative) Urine Bilirubin Negative (Negative) Urine Urobilinogen 0.2 (<2.0) mg/dL Leukocyte Esterase Rfl 1+ H (Negative) BLADIMIR/UL Urine RBC 11-20 H (0-2) /hpf Urine WBC 21-50 H (0-3) /hpf Ur Squamous Epith Cells None seen (Few) /hpf Calcium Oxalate Crystal Present (None) /hpf Urine Bacteria None seen /hpf Urine Casts 0-2 Urine Yeast (Budding) Present H (None) /hpf Influenza A (RT-PCR) Negative (Negative) Influenza B (RT-PCR) Negative (Negative) RSV (RT-PCR) Negative (Negative) SARS-CoV-2 RNA (RT-PCR) Negative (Negative) <Ta Genao MD - Last Filed: 05/30/24 19:02> Lab Results 05/30/24 05/30/24 05/30/24 Range/Units 15:16 15:17 16:43 WBC 8.2 (4.5-10.0) K/mm3 RBC 3.09 L (4.2-5.4) M/mm3 Hgb 9.3 L (12.0-15.0) g/dL Hct 29.8 L (37.0-47.0) % MCV 96.4 (80-100) fl MCH 30.1 (26-34) pg MCHC 31.2 L (32-36) g/dl RDW 15.9 H (11.5-14.5) % Plt Count 193 (150-375) k/mm3 MPV 10.2 (7.4-10.4) fl Immature Gran % (Auto) 0.5 (0-0.5) % Neut % (Auto) 63.5 (45.5-73.1) % Lymph % (Auto) 24.8 (18.3-44.2) % Roosevelt % (Auto) 9.6 H (2.6-8.5) % Eos % (Auto) 1.5 (0-4.4) % Baso % (Auto) 0.1 L (0.2-1.2) % Lymph # (Auto) 2.03 (0.9-3.2) K/mm3 Roosevelt # (Auto) 0.8 H (0.1-0.6) K/mm3 Eos # (Auto) 0.1 (0-0.3) K/mm3 Baso # (Auto) 0.0 (0.0-0.1) K/mm3 Abs Immat Gran (auto) 0.04 H (0.00-0.031) K/mm3 Absolute Neuts (auto) 5.2 (1.3-6.7) K/mm3 Absolute Nucleated RBC 0.000 (0.0-0.012) K/mm3 Nucleated RBC % 0.0 (0.0-0.2) % PT 23.0 H (11.1-14.7) Seconds INR 2.0 APTT 71.6 H (22.3-36.8) Seconds Sodium 138 (137-145) mmol/L Potassium 3.7 (3.4-5.0) mmol/L Chloride 101 (98-107) mmol/L Carbon Dioxide 30 (22-30) mmol/L Anion Gap 7 (4-12) mmol/L BUN 12 D (7-17) mg/dL Creatinine 0.46 L (0.7-1.0) mg/dL Estim Creat Clear Calc Not Reportable Estimated GFR > 60 (59 - ) Glucose 107 (65-110) mg/dL Lactic Acid 0.9 (0.7-2.0) mmol/L Calcium 8.2 L (8.4-10.2) mg/dL Total Bilirubin 0.7 (0.2-1.3) mg/dL AST 18 (14-36) U/L ALT 11 (6-35) U/L Alkaline Phosphatase 96 (38-126) U/L Total Protein 6.0 L (6.3-8.2) g/dL Albumin 2.7 L (3.5-5.1) g/dL Urine Color Yellow (Yellow) Urine Appearance Clear (Clear) Urine pH 5.0 (5.0-9.0) Ur Specific [place] 1.014 (1.001-1.035) Urine Protein Negative (Negative) mg/dL Urine Glucose (UA) Negative (Negative) mg/dL Urine Ketones Negative (Negative) mg/dL Ur Blood (Man) Trace (Negative) Urine Nitrate Negative (Negative) Urine Bilirubin Negative (Negative) Urine Urobilinogen 0.2 (<2.0) mg/dL Leukocyte Esterase Rfl 1+ H (Negative) BLADIMIR/UL Urine RBC 11-20 H (0-2) /hpf Urine WBC 21-50 H (0-3) /hpf Ur Squamous Epith Cells None seen (Few) /hpf Calcium Oxalate Crystal Present (None) /hpf Urine Bacteria None seen /hpf Urine Casts 0-2 Urine Yeast (Budding) Present H (None) /hpf Influenza A (RT-PCR) Negative (Negative) Influenza B (RT-PCR) Negative (Negative) RSV (RT-PCR) Negative (Negative) SARS-CoV-2 RNA (RT-PCR) Negative (Negative) <Shahla Loera MD - Last Filed: 05/30/24 20:28> Discharge Plan Discharge Clinical Impression: Acute UTI, Drug side effects <Ta Genao MD - Last Filed: 05/30/24 19:02> Patient Disposition: Inpatient Rehab Facility <Ta Genao MD - Last Filed: 05/30/24 19:02> Condition: Improved <Ta Genao MD - Last Filed: 05/30/24 19:02> Instructions: Urinary Tract Infection in Women (ED) <Ta Genao MD - Last Filed: 05/30/24 19:02> Additional Instructions: FOLLOW-UP WITH YOUR FAMILY DOCTOR WITHIN THE NEXT 3-5 DAYS. I BELIEVE THAT THE MUSCLE RELAXER THAT YOU TAKING IN THE MORNING IS CONTRIBUTING TO YOUR SYMPTOMS. RECOMMEND DECREASING THE DOSE TO 5 MG OR ADMINISTRATING THE MEDICATION IN THE EVENING AND NOT DURING THE DAY. YOU ALSO HAVE URINARY TRACT INFECTION AND YOU WERE INSTRUCTED TO TAKE THE PRESCRIBED ANTIBIOTIC. RETURN TO THE EMERGENCY DEPARTMENT IF ANY NEW OR WORSENING SYMPTOMS DEVELOP. <Ta Genao MD - Last Filed: 05/30/24 19:02> Patient Language: Faroese <Ta Genao MD - Last Filed: 05/30/24 19:02> Prescriptions: New cephalexin 500 mg capsule 500 mg PO Q12H 5 Days Qty: 10 0RF No Action ranolazine [Ranexa] 500 mg tablet extended release 12 hr 1,000 mg PO Q12H levothyroxine 25 mcg tablet 25 mcg PO DAILY Qty: 90 1RF (DME) egg crate mattress for chair See Rx Instructions .Route .MEDSUPPLY Qty: 1 0RF Rx Instructions: As directed (DME) duoderm dressing See Rx Instructions .Route .MEDSUPPLY Qty: 1 0RF Rx Instructions: As directed cyanocobalamin (vitamin B-12) 2,500 mcg Tablet 2,500 mcg PO QAM Qty: 90 0RF nitroglycerin 0.4 mg tablet, sublingual 0.4 mg sublingual Q5M PRN (Reason: chest pain) amoxicillin-pot clavulanate 875-125 mg tablet 1 tablet PO Q12H Qty: 30 0RF ipratropium-albuterol 0.5 mg-3 mg(2.5 mg base)/3 mL Solution For Nebulization 3 ml inhalation Q6HRT Qty: 30 0RF Eliquis 5 mg Tablet 5 mg PO Q12HR Qty: 60 0RF metoprolol succinate 200 mg tablet extended release 24 hr 200 mg PO DAILY Qty: 30 0RF atorvastatin 40 mg tablet 40 mg PO DAILY Qty: 90 3RF omeprazole 20 mg capsule,delayed release(DR/EC) 40 mg PO DAILY Qty: 180 2RF Rx Instructions: before breakfast ondansetron HCl 4 mg tablet See Rx Instructions .ROUTE .COMPLEX Qty: 40 0RF Dose Instruction: TAKE 1 TABLET BY MOUTH TWICE DAILY NEEDED FOR NAUSEA Rx Instructions: TAKE 1 TABLET BY MOUTH TWICE DAILY NEEDED FOR NAUSEA amitriptyline 10 mg tablet 30 mg PO .HS Qty: 270 1RF <Ta Genao MD - Last Filed: 05/30/24 19:02> Follow-up/Referrals: Milagros Haq MD [Primary Care Provider] - 3 Days <Ta Genao MD - Last Filed: 05/30/24 19:02> Time of Disposition: 20:25 <Ta Genao MD - Last Filed: 05/30/24 19:02> 20:25 <Shahla Loera MD - Last Filed: 05/30/24 20:28>
[2024-05-30 18:02] VITALS: BP 152/66; PULSE 70; RESP 16; O2SAT 92
--- NOTE | 2024-05-30 20:46 | PC.NURSE ---
attempted to call [facility] x3 times w no answer. will attempt prior to pt departure.
[2024-05-30 21:19] VITALS: BP 148/64; PULSE 69; RESP 17; TEMP 36.6; O2SAT 94
--- NOTE | 2024-05-30 21:38 | PC.NURSE ---
report called to guille at [facility] - pt xfr back to facility via [facility].
== END 2024-05-30 21:39 ==
PROVIDERS: Emergency Medicine; Emergency Provider Emergency Medicine; PCP Family Medicine
DX: R41.82 Altered mental status, unspecified (principal); N39.0 Urinary tract infection, site not specified; T48.205A Adverse effect of unspecified drugs acting on muscles, initial encounter; I25.10 Atherosclerotic heart disease of native coronary artery without angina pectoris; I10 Essential (primary) hypertension; E03.9 Hypothyroidism, unspecified; E78.2 Mixed hyperlipidemia; E53.8 Deficiency of other specified B group vitamins; E55.9 Vitamin D deficiency, unspecified; K21.9 Gastro-esophageal reflux disease without esophagitis; R73.03 Prediabetes; M19.90 Unspecified osteoarthritis, unspecified site; Z86.0100 Personal history of colon polyps, unspecified; Z90.710 Acquired absence of both cervix and uterus; Z90.49 Acquired absence of other specified parts of digestive tract; Z98.49 Cataract extraction status, unspecified eye; Z79.01 Long term (current) use of anticoagulants; Z79.899 Other long term (current) drug therapy
CPT/HCPCS: 36415; 72132; 74177; 80053; 81001; 83605; 85025; 85610; 85730; 87086; 87637; 96361; 96365; 96375; 99284; J0696; J2270; J2405; J7030; Q9967

== ENCOUNTER 2024-06-09 08:25 | Outpatient (CLI) | payer MEDICARE, SELFPAY ==
--- NOTE | ~2024-06-09 | XR_ITS ---
CLINICAL STATEMENT: 84-year-old woman with a history of acute cholecystitis presents after percutaneo us transabdominal cholecystostomy tube placement on 05/06/2024 for fluoroscopic evaluation of both tube placement and patency of the cystic duct. OPERATORS: Jose Walters M.D. PROCEDURE: Contrast injection of a percutaneous cholecystostomy tube. Fluoroscopy time: 2.8 minutes Dose: 26.3 Gycm2 Image count:43 CONSENT: The patient and her daughter were informed of the risks, benefits, and alternatives of the procedure. All questions were answered and informed consent was obtained from the patient. TECHNIQUE: After informed and written consent was obtained, the patient was placed supine on the fluoroscopy tab le. Utilizing sterile technique, the pre-existing percutaneous cholecystostomy tube was injected with 14 mL of Omnipaque 240, and imaging was performed. The catheter site was then redressed and a new gravity drainage bag was attached. FINDINGS: The gallbladder opacifies with injected contrast. At no time during the examination was the cystic duct or common bile duct visualized. The catheter was flushed forward easily and withdrew bilious contents without difficulty IMPRESSION: Technically successful contrast injection of a markedly inflamed and distended gallbladder via a pre- existing percutaneous cholecystostomy tube, placed via a transabdominal approach, as detailed above. The cystic duct is presumed to be not patent, as it was not visualized. If the output of the catheter again decreases, please reach out to interventional radiology for chuck ter exchange over a wire (to be done in the interventional radiology suite) versus a second catheter placement, via a transhepatic approach. Reviewed, dictated and finalized at location A. IMPRESSION: Technically successful contrast injection of a markedly inflamed and distended gallbladder via a pre-existing percutaneous cholecystostomy tube, placed via a transabdominal approach, as detailed above. The cystic duct is presumed to be not patent, as it was not visualized. If the output of the catheter again decreases, please reach out to intervention al radiology for catheter exchange over a wire (to be done in the interventiona l radiology suite) versus a second catheter placement, via a transhepatic appro ach.
--- OUTSIDE RECORDS SUMMARY | 2024-06-09 08:49 | XMS_ITS | Continuity of Care Document ---
Author Organization [facility] [place] [address] [place] [address] [place] [address] Phone Care Team Providers Care Distributor Cleaner Name Role Phone [facility] Unavailable Unavail able Deysi Scherer Unavailable Unavailable Advance Directives Directive Yes / No Effective Date File Name No Information Encounters Encounter Description Practice Location Reason(s) For Visit Diagnoses Date Provider Providers Copied on Encounter [facility], [address] [place] [address] [address], [place], [place], [id number], [place] tel:[phone] [facility] No Information [address] [facility] [address] [facility], [address], [place], [place], [address] , [place]. tel:[phone] Consulting Provider: Deysi Scherer, [address] [place] [address], [place], [address]. tel:[phone] Family History Family Member Type Diagnosis Age [...]
--- OUTSIDE RECORDS SUMMARY | 2024-06-09 08:50 | XMS_ITS | Clinical Summary ---
Author Organization [facility] [place] Address [address] [place] [address] Phone Care Team Providers Care Research Specialist Name Role Phone Milagros Haq MD Primary Care Provider [phone] Allergies Active Allergy Reactions Criticality Noted Date [...] 9 Active nitroglycerin (NITROMIST) 400 mcg/spray Aerosol, Trufant place 1 spray by translingual route onto [...] MD (General) Referring Provider: Milagros Haq MD [address] [place] [address] Other: Problem Noted Date Diagnosed Date Inversion [...] 78 12/24/2018 11:15 AM CDT Temperature 36.6 C (97.8 F) 12/24/2018 11:15 AM CDT Respiratory Rate - - Oxygen Saturation 93% 12/24/2018 11:15 AM CDT Inhaled Oxygen Concentration - - Weight 81.3 kg (179 lb 4.8 oz) 12/24/2018 11:15 AM CDT Height 162.6 cm (5' 4 ) 12/24/2018 11:15 AM CDT Body Mass Index 30.78 12/24/2018 11:15 AM CDT Plan of Treatment Health Maintenance Due Date Last Done Comments DTAP/TDAP/TD VACCINES (1 - Tdap) 1959 PNEUMOCOCCAL VACCINE 50+ YEARS (1 of 1 - PCV) 03/24/19 88 ZOSTER VACCINE (1 of 2) 1988 OSTEOPOROSIS SCREENING 2003 RSV VACCINE (60+ or ) (1 - 1-dose 75+ series) 2013 INFLUENZA VACCINE (#1) [address] [place] [address] MEDICARE [employer] [facility] [id number] [place] [address] Care Teams Research Specialist Relationship Specialty Start Date End Date Milagros Haq MD [address] [place] [id number] PCP - General Family Practice 07/18/12
--- OUTSIDE RECORDS SUMMARY | 2024-06-09 08:50 | XMS_ITS | Continuity of Care Document ---
Author Organization [employer] Address [address] [place] [address] Phone Care Team Providers Care Health Informatics Specialist Name Role Phone Conversion MD, Doctor Unavailable [...] Diagnoses Date Provider Providers Copied on Encounter [facility], [address], [place], [place], [address] , tel: [phone] [facility] No Information 1 Conversion Doctor. [address] [facility], [place], [address], . [employer], [address], [place], [place], [address] , tel: [phone] [facility] PERIPHERAL VERTIGO NOSDIZZINESS AND GIDDINESS 3 Conversion Doctor. [address] [facility], [place], [address], [place]. [employer], [address], [place], [place], [address] , tel: [phone] [facility] DIFFUS CYSTIC MASTOPATHYCHRONIC BRONCHITIS NOS 3 Matt Bonilla. [address] [facility], [address], [place], [place], [address]. tel: [phone] [employer], [address], [place], [place], [address] , tel: [phone] [facility] COUGHMIXED HYPERLIPIDEMIA 3 Matt Bonilla. [address] [facility], [address], [place], [address]. tel: [phone] [employer], [address], [place], [place], [address] , tel: [phone] [facility] CHRONIC SINUSITIS NOS 3 Matt Bonilla. [address] [facility], [address], [place], [address]. tel: [phone] [employer], [address], [place], [place], [address] , [place] tel: [phone] [facility] JOINT PAIN-UNSPEC 2 Matt Bonilla. [address] [facility], [address], [place], [place], [address]. tel:[phone] [employer], [address], [place], [place], [address] , [place] tel: [phone] [facility] MASTODYNIA Apr-2 9-200 2 Matt Bonilla. [address] [facility], [address], [place], [place], [address]. tel: [phone] [facility], [address], [place], [place], [address] , [place] tel: [phone] [facility] OSTEOPOROSIS NOS Mar- 1-200 2 Matt Irene. [address] [facility], [address], [place], [place], [address]. tel: [phone] [employer], [address], [place], [place], [address] , [place] tel: [phone] [facility] ESOPHAGEAL REFLUX Sep- 0-200 1 Matt Bonilla. [address] [facility], [address], [place], [place], [address]. tel: [phone] [employer], [address], [place], [place], [address] , [place] tel: [phone] [facility] MYALGIA AND MYOSITIS NOSSCREEN MAL NEOP-CERVIX Sep- 7-200 1 Matt Bonilla. [address] [facility], [address], [place], [place], [address]. tel: [phone] [employer], [address], [place], [place], [address] , [place] tel: [phone] [facility] NONSPECIF SKIN ERUPT NEC July- 0-200 1 Matt Bonilla. [address] [facility], [address], [place], [place], [address]. tel: [phone] [employer], [address], [place], [place], [address] , [place] tel:[phone] [facility] ABN PAP SMEAR-OTH SITE Jose-2 2-200 0 Matt Bonilla. [address] [facility], [address], [place], [place], [address]. tel:[phone] [employer], [address], [place], [place], [address] , tel: [phone] [facility] BACKACHE NOSMENOPAUSAL DISORDER NOS 0-200 0 Matt Bonilla. [address] [facility], [address], [place], [place], [address]. tel:[phone] [employer], [address], [place], [place], [address] , tel: [phone] [facility] ABNORMAL WEIGHT GAINROUTINE MEDICAL EXAMALLERGY, UNSPECIFIED 3-200 0 Matt Bonilla. [address] [facility], [address], [place], [place], [address]. tel:[phone] Family History Family Member Type Diagnosis Age [...]
--- OUTSIDE RECORDS SUMMARY | 2024-06-09 08:50 | XMS_ITS | Clinical Summary ---
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 Mechanic Name Role Phone Unavailable Primary Care Provider Unavailabl e Encounters Date Type Department Care Team Description 05/21/2024 5:42 PM YIELD LOSS INSPECTOR - 05/21/2024 11:59 PM YIELD LOSS INSPECTOR [facility] [place] [address] Diana Kunz DO Discharge Disposition: Home or Self Care (Routine Discharge) 05/21/2024 Orders Only [facility] [address] Diana Kunz DO from Last 3 Months Social History Tobacco Use Types Packs/Day Years Used Date Smoking Tobacco: Never Assessed Comments Unknown Sex and Gender Information Value Date Recorded Sex Assigned at Not on file Legal Sex Female 6:48 PM CDT Gender Identity Not on file Sexual Orientation Not on file Plan of Treatment Health Maintenance Due Date Last Done Comments Pneumococcal Vaccine: 65+ Ye ars (1 of 2 - PCV) 1944 DTaP, Tdap and Td Vaccines ( 1 - Tdap) 1957 Zoster Vaccines (1 of 2) 1988 Annual Medicare Wellness Visit 2003 RSV Immunization or 60+ Years (1 - 1-dose 75+ series) 2013 COVID-19 Vaccine (2023-2 5 season) 2023 Influenza Adult (#1) 2023 Meningococcal B Vaccine Aged Out No l onger eligible based on patient's age to complete this topic Meningococcal Vaccine Aged Out No yamileth goyo eligible based on patient's age to complete this topic RSV Immunizations Under 20 Months Aged Out No longer eligible based on patient's age to complete this topic Procedures Procedure Name Priority Date/Time Associated Diagnosis Comments PRO-BRAIN NATRIURETIC PEPTIDE Routine 05/21/2024 2:29 PM YIELD LOSS INSPECTOR Anemia, unspecified Vitamin D insufficiency Acute diastolic heart failure (CMS/HCC HHS/HCC) CBC W/DIFF AUTOMATED Routine 05/21/2024 2:29 PM YIELD LOSS INSPECTOR Anemia, unspecified Vitamin D insufficiency Acute diastolic heart failure (CMS/HCC HHS/HCC) COMPREHENSIVE METABOLIC PANEL Routine 05/21/2024 2:29 PM YIELD LOSS INSPECTOR Anemia, unspecified Vitamin D insufficiency Acute diastolic heart failure (CMS/HCC HHS/HCC) from Last 3 Months Results * (ABNORMAL) PRO-BRAIN NATRIURETIC PEPTIDE (05/21/2024 2:29 PM YIELD LOSS INSPECTOR) PRO-B TYPE NATRIURETIC PEPTIDE 1,336(H) <450 PG/ML 05/21/2024 6:22 PM YIELD LOSS INSPECTOR [facility] Comment: CUT POINTS ESTABLISHED BY [employer] ON NT PROBNP (ICON) STUDY (2006). AGE INDEPENDENT: <300 PG/ML HAS A 99% NEGATIVE PREDICTIVE VALUE FOR EXCLUDING ACUTE CHF <50 YEARS: >450 PG/ML IS CONSISTENT WITH ACUTE CHF 50-75 YEARS: >900 PG/ML IS CONSISTENT WITH ACUTE CHF >75 YEARS: >1800 PG/ML IS CONSISTENT WITH ACUTE CHF IN PATIENTS WITH RENAL INSUFFICIENCY (GFR <60), >1200 PG/ML YIELDS A DIAGNOSTIC SENSITIVITY AND SPECIFICITY OF 89% AND 72% FOR ACUTE CHF. 05/21/2024 2:29 PM YIELD LOSS INSPECTOR us Diana Kunz DO LABORATORY Final Resu lt [facility] [address] [place] [address], [place] [phone] * (ABNORMAL) COMPREHENSIVE METABOLIC PANEL (05/21/2024 2:29 PM YIELD LOSS INSPECTOR) GLUCOSE 126(H) 70 - 99 MG/DL 05/21/2024 6:22 PM [facility] BUN 14 7 - 18 MG/DL 05/21/2024 6:22 PM [facility] CREATININE S/P/B 0.70 0.55 - 1.02 MG/DL 05/21/2024 6:22 PM [facility] SODIUM S/P/B 137 136 - 145 MMOL/L 05/21/2024 6:22 PM [facility] POTASSIUM S/P/B 3.6 3.5 - 5.1 MMOL/L 05/21/2024 6:22 PM [facility] CHLORIDE S/P/B 105 97 - 115 MMOL/L 05/21/2024 6:22 PM [facility] CO2 30.3 21 - 32 MMOL/L 05/21/2024 6:22 PM [facility] CALCIUM S/P/B 9.1 8.5 - 10.1 MG/DL 05/21/2024 6:22 PM [facility] BILIRUBIN TOTAL S/P/B 0.4 0.2 - 1.2 MG/DL 05/21/2024 6:22 PM [facility] Comment: THIS ASSAY IS NOT RECOMMENDED FOR PATIENTS UNDERGOING TREATMENT WITH ELTROMBOPAG DUE TO THE POTENTIAL FOR FALSELY ELEVATED RESULTS. TOTAL PROTEIN S/P/B 6.3(L) 6.4 - 8.2 G/DL 05/21/2024 6:22 PM [facility] ALBUMIN S/P/B 2.6(L) 3.4 - 5.0 G/DL 05/21/2024 6:22 PM [facility] AST 13(L) 15 - 37 U/L 05/21/2024 6:22 PM [facility] ALT 15 14 - 55 U/L 05/21/2024 6:22 PM [facility] ALKALINE PHOSPHATASE S/P/B 83 50 - 136 U/L 05/21/2024 6:22 PM YIELD LOSS INSPECTOR [facility] ANION GAP 1.7(L) 2 - 10 MMOL/L 05/21/2024 6:22 PM [facility] BUN CREATININE RATIO 20.0 6 - 26 05/21/2024 6:22 PM [facility] A/G RATIO 0.7(L) 1.0 - 2.0 RATIO 05/21/2024 6:22 PM [facility] GFR ESTIMATE 84(L) >90 ML/MIN/1.7 3 M2 05/21/2024 6:22 PM [facility] Comment: NOTE: eGFR is not calculated for patients <18 years of age or gender unknown. This is an estimated GFR calculation using the new CKD EPI creatinine equation without race and so does not require a correction factor for race. This estimated GFR should not be used for calculating drug doses. 05/21/2024 2:29 PM YIELD LOSS INSPECTOR us Diana Kunz DO LABORATORY Final Resu lt [facility] [address] [place] [address], [place] [phone] * (ABNORMAL) CBC W/DIFF AUTOMATED (05/21/2024 2:29 PM YIELD LOSS INSPECTOR) WBC 4.17(L) 4.5 - 11.0 x10'3/uL 05/21/2024 5:57 PM YIELD LOSS INSPECTOR [facility] RBC 3.31(L) 4.20 - 5.40 x10'6/uL 05/21/2024 5:57 PM YIELD LOSS INSPECTOR [facility] HGB 9.8(L) 12.0 - 16.0 G/DL 05/21/2024 5:57 PM YIELD LOSS INSPECTOR [facility] HCT 33.1(L) 38.0 - 48.0 % 05/21/2024 5:57 PM YIELD LOSS INSPECTOR [facility] MCV 100.0(H) 81.0 - 99.0 FL 05/21/2024 5:57 PM YIELD LOSS INSPECTOR [facility] MCH 29.6 27.0 - 31.0 PG 05/21/2024 5:57 PM [facility] MCHC 29.6(L) 32.0 - 36.0 G/DL 05/21/2024 5:57 PM YIELD LOSS INSPECTOR [facility] RDW 14.6(H) 11.5 - 14.5 % 05/21/2024 5:57 PM [facility] PLT 233 130 - 400 x10'3/uL 05/21/2024 5:57 PM [facility] MPV 11.0 9.3 - 12.2 FL 05/21/2024 5:57 PM [facility] DIFFERENTIAL TYPE AUTOMATED DIFFERENTIAL 05/21/2024 5:57 PM YIELD LOSS INSPECTOR [facility] NEUTROPHILS % 53.2 % 05/21/2024 5:57 PM [facility] LYMPHOCYTES % 34.1 % 05/21/2024 5:57 PM [facility] MONOCYTES % 10.1 % 05/21/2024 5:57 PM YIELD LOSS INSPECTOR [facility] EOSINOPHILS 1.9 % 05/21/2024 5:57 PM YIELD LOSS INSPECTOR [facility] BASOPHILS 0.5 % 05/21/2024 5:57 PM [facility] IMMATURE GRANS % 0.2 % 05/21/19 5:57 PM [facility] ABS. NEUTROPHILS 2.22 1.80 - 7.70 x10'3/uL 05/21/2024 5:57 PM YIELD LOSS INSPECTOR [facility] ABS. LYMPHOCYTES 1.42 1.00 - 4.80 x10'3/uL 05/21/2024 5:57 PM YIELD LOSS INSPECTOR [facility] ABS. MONOCYTES 0.42 0.24 - 0.86 x10'3/uL 05/21/2024 5:57 PM YIELD LOSS INSPECTOR [facility] ABS. EOSINOPHILS 0.08 0.04 - 0.36 x10'3/uL 05/21/2024 5:57 PM YIELD LOSS INSPECTOR [facility] ABS. BASOPHILS 0.02 0.01 - 0.08 x10'3/uL 05/21/2024 5:57 PM YIELD LOSS INSPECTOR [facility] ABS. IMMATURE GRANULOCYTES 0.01 0.00 - 0.49 x10'3/uL 05/21/2024 5:57 PM YIELD LOSS INSPECTOR [facility] 05/21/2024 2:29 PM YIELD LOSS INSPECTOR us Diana Kunz DO LABORATORY Final Resu lt [facility] [address] [place] [address], from Last 3 Months Insurance [facility]
--- OUTSIDE RECORDS SUMMARY | 2024-06-09 08:50 | XMS_ITS | Continuity of Care Document ---
Author Organization [place] [facility] [place] Address [address] [place] [address] Care Team Providers Care Loan Closer Name Role Phone [facility] FAX OTHER TOO HARTLEY Primary Care Provider RAMÍREZ OLSON Street [employer] Rep[employer] Helper RAMÍREZ OLSON Referring Provider Assessment Encounter Date Assessment Date Assessment LastModified by Organization Details LastModified Time 06/08/2024 06/08/2024 Labs (CBC, CMP, CRP) on 06/09. Dr. Aviles extended Celecoxib course x 5 more days. Voiding trial. [email or web address] Not available 06/08/2024 17:20:12 Plan of Treatment Reminders Order Date Submit Date Provider Last Modified By Organization Details Last Modified Time Details Appointments None record ed. Lab None record ed. Referral None record ed. Procedures None record ed. Surgeries None record ed. Imaging None record ed. Medication Orders None record ed. Patient TargetsNo targets recorded. Patient Instructions Encounter Date Encounter Id Patient Instructions Last Modified By Organization Details Last Modified Time 06/08/2024 [id number] I spent {{ 37#}} minutes providing care to the patient today. More than 50% of that time was spent in discussing the expected course of the disease, discussing prognosis, coordinating care and counseling of the patient/family. [email or web address] Not available 06/08/2024 16:23:24 Reason for Referral None Reported. Results Created Date Observation Date Name Description Value Unit Range Abnormal Flag Note LastModifiedBy Organization Detail LastModifiedTime 05/27/1905/27/2024 XR, chest , 2 view No observ ation record ed. [facility] ([employer]) [address], [place], [address], 05/29/2024 09:44:02 05/27/19 25 05/27/2024 XR, lumbo sacra l spine No observ ation record ed. [facility] ([employer] [employer]) [address], [place], [address], 05/29/2024 09:44:12 05/28/19 25 05/27/2024 XR, chest , 2 view No observ ation record ed. [facility] [address] , [place], [address], 05/29/2024 09:44:25 Result Notes None recorded. Procedures Surgical History Date Name Laterality Status Provider Name and Address Organization Details Recorded Time 05/06/19 percutaneous cholecystostomy completed May Carrillo, EVONNE [address] [facility], [place], [address], [place] [facility] 05/12/2024 16:27:51 cardiac catheterization completed Marnice Neel [place] [facility] 05/13/2024 14:14:34 colonoscopic polypectomy completed Marnice Neel [place] [facility] 05/13/2024 14:15:03 Appendectomy completed Marnice Neel [place] [facility] 05/13/2024 14:15:20 extraction of cataract completed Marnice Neel [place] [facility] 05/13/2024 14:15:30 hysterectomy completed Marnice Neel [place] [facility] 05/13/2024 14:15:39 Imaging Results None recorded. Procedure Notes None recorded. Medical Equipment None Reported. Allergies Allergen ID Allergen Name Allergen Category Reaction Reaction Severity Criticality Documentation Date Start Date Code Code System Note Provider Name and Address Organization Details Recorded Time 03789 alendrona te sodium medicatio n Not available Not available Not available 05/12/202483760 2 RxNorm Not Available Not Available Not Available 22821 hydrocodo ne Not available Not available Not available Not available 05/12/2024 5489 RxNorm Not Available Not Available Not Available 10150 levofloxa iliana medicatio n Not available Not available Not available 05/12/2024 16252 RxNorm Not Available Not Available Not Available Medications Name Sig Start Date Stop Date Status Note LastModified by Organization Details LastModified Time cyclobenzap rine 10 mg tablet Take 1 tablet every 8 hours by oral route as needed. 05/31 completed Not Available Not Available Not Available furosemide 40 mg tablet Take 1 tablet every day by oral route for 3 days. 05/31 completed Not Available Not Available Not Available atorvastati n 40 mg tablet Take 1 tablet every day by oral route. active Not Available Not Available No t Available Abreva 10 % topical cream Apply 1 applicati on 4 times a day by topical route for 3 days. 05/25 completed Not Available Not Available Not Available acetaminoph en 325 mg tablet Take 2 tablets every 4 hours by oral route as needed. 05/22 completed Not Available Not Available Not Available ipratropium 0.5 mg-albutero l 3 mg (2.5 mg base)/3 mL nebulizatio n soln Inhale 3 mL every 6 hours by nebulizat ion route as needed. active Not Available Not Available No t Available lidocaine 4 % topical patch Apply 1 patch every day by topical route. active Not Available Not Available No t Available metoprolol succinate ER 200 mg tablet,exte nded release 24 hr Take 1 tablet every day by oral route. active Not Available Not Available No t Available acetaminoph en 500 mg tablet Take 2 tablets 3 times a day by oral route. active Not Available Not Available No t Available levothyroxi ne 25 mcg tablet Take 1 tablet every day by oral route. active Not Available Not Available No t Available tamsulosin 0.4 mg capsule Take 1 capsule every day by oral route. 2024 active Not Available Not Available Not Avai lable calcitonin (salmon) 200 unit/actuat ion nasal spray Take 1 spray every day by nasal route for 14 days. active Stop Date: 06/11 Not Available Not Available Not Available amitriptyli ne 10 mg tablet Take 2 tablets every day by oral route at bedtime. active Not Available Not Available No t Available nitroglycer in 0.[address] 1 tablet by sublingua l route as needed. active Not Available Not Available No t Available omeprazole 20 mg capsule,del ayed release Take 1 capsule every day by oral route. active Not Available Not Available No t Available celecoxib 100 mg capsule Take 1 capsule twice a day by oral route for 5 days. active Stop Date: 06/13 Not Available Not Available Not Available ondansetron 4 mg disintegrat ing tablet Place 1 tablet every 6 hours by transling ual route as needed. active Not Available Not Available No t Available amoxicillin 875 mg-potassiu m clavulanate 125 mg tablet Take 1 tablet twice a day by oral route for 7 days. 2024 active Stop Date: 06/08 Not Available Not Available Not Available ranolazine ER 1,000 mg tablet,exte nded release,12 hr Take 1 tablet twice a day by oral route. 05/31 completed Not Available Not Available Not Available Eliquis 5 mg tablet Take 1 tablet twice a day by oral route. active Not Available Not Available No t Available potassium chloride ER 20 mEq tablet,exte nded release Take 1 tablet every day by oral route for 3 days. 05/31 completed Not Available Not Available Not Available cyanocobala min (vitamin B-12) 2,500 mcg tablet Take 1 tablet every day by oral route. active Not Available Not Available No t Available Vitals Date Recorded Body height Heart rate Body temperature Respiratory rate Oxygen saturation Oxygen saturation in Arterial blood by Pulse oximetry Body mass index (BMI) Body weight Systolic blood pressure Diastolic blood pressure Provider Name and Address Organization Details Last Updated DateTime 160.02 cm 79 /min 97.5 [degF] 16 /min 96 % 96 % 31.1 kg/m2 32508.7 4 g 124 mm[Hg] 71 mm[Hg] [place] [address] [address] [facility], [place], [address], [facility] 16:10:35 Social History Question Answer Notes LastModified by Organizat ion Details LastModified Time Tobacco Sm[place] [address] [address] [facility], [place], [address], [facility] 05/12/2024 14:21:47 What Is Your Level Of Alcohol Consumption? None Information not available 05/12/2024 What Is Your Code Status? Full Code [email or web address] Information not available 05/12/2024 What Was The Date Of Your Most Recent Tobacco Screening? 05/12/2024 Information not available 05/12/2024 What Is Your Relationship Status? Information not available 05/12/2024 Do You Use Any Illicit Or Recreational Drugs? No Information not available 05/12/2024 Sex: Unknown Functional Status None recorded. Mental Status None recorded. Family History Relationship Description Onset Age of this Age Resolved Age Notes LastModified by Organization Details LastModified Time Father Malignant tumor of lung [email or web address] Not available 2024 14:13:50 Sister Malignant tumor of breast [email or web address] Not available 2024 14:14:12 Medical History Condition Response Diabetes Y Osteoarthritis / DJD Y Vitamin D Deficiency Y GERD / Reflux Y Coronary Artery Disease (CAD) Y Vitamin B12 Deficiency Y Allergic Rhinitis Y Hyperlipidemia Y Hypertension Y Hypothyroidism Y Gynecological HistoryNo gynecological history recorded. Obstetrics History GPAL:G 0 P 0 0 0 0 Past Encounters Encounter ID Performer Location Encounter Start Date Encounter Closed Date Diagnosis/Indication Diagnosis SNOMED-CT Code Diagnosis ICD10 Code Diagnosis Note [id number] May Carrillo [facility] [address] [place] [address] 05/12/2024 10:12:13 05/25/2024 11:48:21 Pressure injury of buttock 834888056 L89.309 Developed in April 2023 during COVID-19 pneumonia. Continue to offload pressure and treat with foam dressing daily.Woun d care to follow in-house. Acute cholecystitis 6527 5009 K81.0 Initially attempted supportive treatment with IV antibiotic s, however worsened. Perc celia tube placed on 05/[address] Mckenzie.Symp toms have improved. She continues on Augmentin course x 15 days (05/26).Cla rified RUQ drain dressing is changed q72hrs & PRN.Monito r labs and symptoms closely.Co ntinue therapies -- pt is very deconditio micky.Jodi is scheduling 2-week f/u appt with Dr. Mckenzie today. Atrial fibrillation 4943 6004 I48.91 New-onset while inpatient. Tx with IV heparin & Dilt, spontaneou sly converted. Transition ed to Eliquis & Metoprolol by discharge. Continue Metoprolol for rate-contr ol.Continu e Eliquis for VTE prophylaxi s.Pt follows with Dr. Olson at [facility] as OP, last seen in Jan 2024. Daughter is unclear if they will f/u with him at hospital discharge vs. attempt to find a cardiologi st closer to home. Pneumonia caused by SARS-CoV-2 2778741347 75320106 J12.82 Dx with covid-19 on 03/30, dx with pneumonia on 04/08.Treate d OP with PO antibiotic s, steroids, and cough medication s.Symptoms had resolved by 04/28.Roy doni Duonebs to PRN -- pt does not use as OP and daughter isn't clear why these were being given while inpatient. Pt did not have any respirator y concerns while inpatient. Physical deconditioning 6813346484 9102 R68.89 Related to age, recent inpatient stay, and multiple comorbidit ies. Continue PT/OT/ST and monitor progress. Goal is for pt to return home with daughter. Continue PRN cathartics for constipati on per standing orders. Essential hypertension 65665691 I10 Stable at present. OP Losartan & HCTZ were discontinu ed. Pt has been started on Metoprolol for rate-contr ol of Afib.Jc nue to trend blood pressures, monitor lytes and renal function, and adjust meds as clinically indicated. Hyperlipidemia 79297747 E78.5 Presumed stable. Continue Atorvastat in. Coronary arteriosclerosis 80282436 I25.[address] OP [address] Olson at [facility]. Takes PRN NTG as OP for stable angina about 1x/week. RADHA while inpatient was mostly unremarkab le = LV systolic function normal, EF 55-60%. Mildly increased LV wall thickness. RV systolic function normal. LA chamber dimension moderately enlarged. Mild tricuspid valve regurg.Sta ble at present without concerns. Continue Metoprolol , Ranexa, & PRN NTG.F/U with cards as OP. Stable angina 549443081 I20.89 SEE ABOVE... Prediabetes 184554507 R7 3.03 Details unclear. Continue to monitor blood sugars on bloodwork. Hypothyroidism 69977286 E03.9 Presumed stable. Continue Levothyrox ine. Osteoarthritis 721215338 M19.90 Stable. Continue PRN APAP. Gastroesop hageal reflux disease without esophagitis 899175731 K21.9 Stable. Continue Omeprazole and PRN Zofran. Migraine 83286637 G43.90 9 Per daughter, with aura of spotty vision.Sta ble. Continue Amitriptyl ine at bedtime. Allergic rhinitis 531860 04 J30.9 Per history. Not presently on medication s. Monitor. 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 Continue supplement . Vitamin D deficiency 347 39095 E55.9 Per history. Not on supplement . Herpes labialis 2243210 B00.1 Abreva x 3 days or until healed. Retention of urine 30535 4002 R33.9 Failed voiding trial on 05/10. As such, she has transferre d to our facility with a valle catheter.Anastasiia Aviles started Flomax.Antwon l need voiding trial once more ambulatory . Dysphagia 31807427 R13.1 0 Some concerns while inpatient. Per daughter, MBS was unconcerni ng.She has been discharged on mechanical soft diet with thin liquids.ST to follow. [id number] Diana Poe, DO [address] [address] 05/14/2024 18:57:55 05/25/2024 11:49:54 Acute cholecystitis 97986450 K81.0 Initially attempted supportive treatment with IV antibiotic s, however worsened. Perc celia tube placed on 05/[address] Mckenzie.Symp toms have improved. She continues on Augmentin course x 15 days (05/26).RUQ drain dressing is changed q72hrs & PRN.Monito r labs and symptoms closely.Co ntinue therapiesf /u appt with Dr. Mckenzie 05/26 Atrial fibrillation 4943 6004 I48.91 New-onset while inpatient. Tx with IV heparin & Dilt, spontaneou sly converted. Transition ed to Eliquis & Metoprolol by discharge. Continue Metoprolol for rate-contr ol.Continu e Eliquis for VTE prophylaxi s.Pt follows with Dr. Olson at [facility] as OP, last seen in Jan 2024. Daughter plans to schedule f/u appointmen t after d/c from [facility] Pneumonia caused by SARS-CoV-2 1157910827 42422463 J12.82 Dx with covid-19 on 03/30, dx with pneumonia on 04/08.Treate d OP with PO antibiotic s, steroids, and cough medication s.Symptoms had resolved by 04/28.Jc corona Duonebs to PRN Retention of urine 12588 4002 R33.9 Failed voiding trial on 05/10. As such, she has transferre d to our facility with a valle catheter.Anastasiia Aviles started Flomax.fol ey catheter removed earlier today Pressure i njury of buttock 874790747 L89.309 Developed in April 2023 during COVID-19 pneumonia. Continue to offload pressure and treat with foam dressing daily.Woun d care to follow in-house. Herpes labialis 4830152 B00.1 Abreva x 3 days or until healed Essential hypertension 88513399 I10 Stable at present. OP Losartan & HCTZ were discontinu ed. Pt has been started on Metoprolol for rate-contr ol of Afib.Jc corona to trend blood pressures, monitor lytes and renal function, and adjust meds as clinically indicated. Hyperlipidemia 53109324 E78.5 Presumed stable. Continue Atorvastat in. Coronary arteriosclerosis 50978615 I25.[address] OP [address] Olson at [facility]. Takes PRN NTG as OP for stable angina about 1x/week. RADHA while inpatient was mostly unremarkab le = LV systolic function normal, EF 55-60%. Mildly increased LV wall thickness. RV systolic function normal. LA chamber dimension moderately enlarged. Mild tricuspid valve regurg.Sta ble at present without concerns. Continue Metoprolol , Ranexa, & PRN NTG.F/U with cards as OP. Stable angina 904374536 I20.89 SEE ABOVE... Hypothyroidism 77996373 E03.9 Presumed stable. Continue Levothyrox ine. Osteoarthritis 564647104 M19.90 Stable. Continue PRN APAP. Dysphagia 34525159 R13.1 0 Some concerns while inpatient. Per daughter, MBS was un-concern ing.She has been discharged on mechanical soft diet with thin liquids.ST to follow. Gastroesop hageal reflux disease without esophagitis 375240864 K21.9 Stable. Continue Omeprazole and PRN Zofran. Migraine 02581067 G43.90 9 Per daughter, with aura of spotty vision.Sta ble. Continue Amitriptyl ine at bedtime. Prediabetes 293820269 R7 3.03 Details unclear. Continue to monitor blood sugars on bloodwork. Allergic rhinitis 799664 04 J30.9 Per history. Not presently on medication s. Monitor. Disorder o f vitamin B12 601139613 E53.8 Presumed stable. Continue supplement . Vitamin D deficiency 347 85918 E55.9 Per history. Not on supplement . Physical deconditioning 2371702360 9102 R68.89 Related to age, recent inpatient stay, and multiple comorbidit ies. Continue PT/OT/ST and monitor progress. Goal is for pt to return home with daughter. Continue PRN cathartics for constipati on per standing orders. [id number] May Carrillo NP [address] [address] 05/19/2024 08:28:41 05/25/2024 11:49:06 Acute cholecystitis 45472329 K81.0 Initially attempted supportive treatment with IV antibiotic s, however worsened. Perc celia tube placed on 05/[address] Mckenzie.Symp toms have improved. She continues on Augmentin course x 15 days (05/26).RUQ drain dressing is changed q72hrs & PRN.Monito r labs and symptoms closely.Co ntinue therapiesF /U appt with Dr. Mckenzie on 05/26. Atrial fibrillation 4943 6004 I48.91 New-onset while inpatient. Tx with IV heparin & Dilt, spontaneou sly converted. Transition ed to Eliquis & Metoprolol by discharge. Continue Metoprolol for rate-contr ol.Continu e Eliquis for VTE prophylaxi s.Pt follows with Dr. Olson at [facility] as OP, last seen in Jan 2024. Daughter plans to schedule f/u appointmen t after d/c from [facility]. Pneumonia caused by SARS-CoV-2 9254739364 36487864 J12.82 Dx with covid-19 on 03/30, dx with pneumonia on 04/08.Treate d OP with PO antibiotic s, steroids, and cough medication s.Symptoms had resolved by 04/28.Jc chloe Duonebs to PRN Retention of urine 33692 4002 R33.9 Failed voiding trial on 05/10. As such, she was transferre d to our facility with a valle catheter. Reattempte d with Flomax on 05/14 and has been successful ly voiding. Flomax has been stopped.Mo nitor for recurrence . Pressure i njury of buttock 772001337 L89.309 Developed in April 2023 during COVID-19 pneumonia. Continue to offload pressure and treat with foam dressing daily.Woun d care to follow in-house. Herpes labialis 9434428 B00.1 Healed with Abreva. Essential hypertension 93423498 I10 Stable at present. OP Losartan & HCTZ were discontinu ed. Pt has been started on Metoprolol for rate-contr ol of Afib.Jc nue to trend blood pressures, monitor lytes and renal function, and adjust meds as clinically indicated. Hyperlipidemia 41504121 E78.5 Presumed stable. Continue Atorvastat in. Coronary arteriosclerosis 28919892 I25.[address] Follow[address] OP [address] Olson at [facility]. Takes PRN NTG as OP for stable angina about 1x/week. RADHA while inpatient was mostly unremarkab le = LV systolic function normal, EF 55-60%. Mildly increased LV wall thickness. RV systolic function normal. LA chamber dimension moderately enlarged. Mild tricuspid valve regurg.Sta ble at present without concerns. Continue Metoprolol , Ranexa, & PRN NTG.F/U with cards as OP. Stable angina 919144366 I20.89 SEE ABOVE... Hypothyroidism 84075544 E03.9 Presumed stable. Continue Levothyrox ine. Osteoarthritis 294165457 M19.90 Stable. Continue PRN APAP. Dysphagia 10303957 R13.1 0 Some concerns while inpatient. Per daughter, MBS was un-concern ing.She has been discharged on mechanical soft diet with thin liquids.ST to follow. Gastroesop hageal reflux disease without esophagitis 416736709 K21.9 Stable. Continue Omeprazole and PRN Zofran. Migraine 35579220 G43.90 9 Per daughter, with aura of spotty vision.Sta ble. Continue Amitriptyl ine at bedtime. Prediabetes 353022454 R7 3.03 Details unclear. Continue to monitor blood sugars on bloodwork. Allergic rhinitis 774395 04 J30.9 Per history. Not presently on medication s. Monitor. Disorder o f vitamin B12 320767332 E53.8 Presumed stable. Continue supplement . Vitamin D deficiency 347 98689 E55.9 Per history. Not on supplement . Physical deconditioning 6518349732 9102 R68.89 Related to age, recent inpatient stay, and multiple comorbidit ies. Continue PT/OT/ST and monitor progress. Goal is for pt to return home with daughter. Continue PRN cathartics for constipati on per standing orders. [id number] May Carrillo NP [address] [address] 05/25/2024 12:43:05 06/08/2024 21:37:29 Lumbar spondylosis 249401367 M47.896 Increase routine APAP to 1000 mg TID.Increa se PRN Cyclobenza clay to 10 mg q8hrs PRN. Monitor for drowsiness (pt denies thus far).Add Lidocaine patch daily.If no improvemen t, may need to advance to PRN Tramadol.I f pain does not improve or worsens, will check Thoracic & Lumbar XRs. Burst frac ture of lumbar vertebra 751209504 S32.021S Old, noted on imaging incidental ly while inpatient. Jodi believes this occurred prior to Mar 2023.SEE ABOVE... Acute cholecystitis 6527 5009 K81.0 Initially attempted supportive treatment with IV antibiotic s, however worsened. Perc celia tube placed on 05/[address] Mckenzie.Symp toms have improved. She continues on Augmentin course x 15 days (05/26).RUQ drain dressing is changed q72hrs & PRN.Monito r labs and symptoms closely.Co ntinue therapiesF /U appt with Dr. Mckenzie on 05/26. Atrial fibrillation 4943 6004 I48.91 New-onset while inpatient. Tx with IV heparin & Dilt, spontaneou sly converted. Transition ed to Eliquis & Metoprolol by discharge. Continue Metoprolol for rate-contr ol.Continu e Eliquis for VTE prophylaxi s.Pt follows with Dr. Olson at [facility] as OP, last seen in Jan 2024. Daughter plans to schedule f/u appointmen t after d/c from . Pneumonia caused by SARS-CoV-2 7820098721 85753096 J12.82 Dx with covid-19 on 03/30, dx with pneumonia on 04/08.Treate d OP with PO antibiotic s, steroids, and cough medication s.Symptoms had resolved by 04/28.Jc nue Duonebs to PRN Retention of urine 04492 4002 R33.9 Failed voiding trial on 05/10. As such, she was transferre d to our facility with a valle catheter. Reattempte d with Flomax on 05/14 and has been successful ly voiding. Flomax has been stopped.Mo nitor for recurrence . Pressure i njury of buttock 353783098 L89.309 Developed in April 2023 during COVID-19 pneumonia. Continue to offload pressure and treat with foam dressing daily.Woun d care to follow in-house. Herpes labialis 5803203 B00.1 Healed with Abreva. Essential hypertension 92247777 I10 Stable at present. OP Losartan & HCTZ were discontinu ed. Pt has been started on Metoprolol for rate-contr ol of Afib.Jc nue to trend blood pressures, monitor lytes and renal function, and adjust meds as clinically indicated. Hyperlipidemia 80742099 E78.5 Presumed stable. Continue Atorvastat in. Coronary arteriosclerosis 21289206 I25.10 Follow[address] OP by Dr. Olson at [facility]. Takes PRN NTG as OP for stable angina about 1x/week. RADHA while inpatient was mostly unremarkab le = LV systolic function normal, EF 55-60%. Mildly increased LV wall thickness. RV systolic function normal. LA chamber dimension moderately enlarged. Mild tricuspid valve regurg.Sta ble at present without concerns. Continue Metoprolol , Ranexa, & PRN NTG.F/U with cards as OP. Stable angina 687847050 I20.89 SEE ABOVE... Hypothyroidism 42480016 E03.9 Presumed stable. Continue Levothyrox ine. Osteoarthritis 889408822 M19.90 Stable. Continue PRN APAP. Dysphagia 80610179 R13.1 0 Some concerns while inpatient. Per daughter, MBS was un-concern ing.She has been discharged on mechanical soft diet with thin liquids.ST to follow. Gastroesop hageal reflux disease without esophagitis 828376857 K21.9 Stable. Continue Omeprazole and PRN Zofran. Migraine 63790649 G43.90 9 Per daughter, with aura of spotty vision.Sta ble. Continue Amitriptyl ine at bedtime. Prediabetes 723644440 R7 3.03 Details unclear. Continue to monitor blood sugars on bloodwork. Allergic rhinitis 222732 04 J30.9 Per history. Not presently on medication s. Monitor. Disorder o f vitamin B12 332867141 E53.8 Presumed stable. Continue supplement . Vitamin D deficiency 347 85236 E55.9 Per history. Not on supplement . Physical deconditioning 6560700750 9102 R68.89 Related to age, recent inpatient stay, and multiple comorbidit ies. Continue PT/OT/ST and monitor progress. Goal is for pt to return home with daughter. Continue PRN cathartics for constipati on per standing orders. [id number] May Carrillo NP [facility] [address] [place] [address] 05/27/2024 13:50:28 06/08/2024 21:38:11 Lumbar spondylosis [id number] M47.896 Continue routine APAP to 1000 mg TID, Lidocaine patch, and schedule Cyclobenza clay qAM before therapy. Continue PRN dosing, as well. Monitor for drowsiness (pt denies thus far).Obtai n Lumbar Spine XR.If no improvemen t, may need to advance to PRN Tramadol. Burst frac ture of lumbar vertebra [id number] S32.021S Old, noted on imaging incidental ly while inpatient. Jodi believes this occurred prior to Mar 2023.SEE ABOVE... Acute cholecystitis 6527 5009 K81.0 Initially attempted supportive treatment with IV antibiotic s, however worsened. Perc celia tube placed on 05/[address] Mckenzie.Symp toms have improved. She continues on Augmentin course x 15 days (05/26).RUQ drain dressing is changed q72hrs & PRN.Monito r labs and symptoms closely.Co ntinue therapiesF /U appt with Dr. Mckenzie on 05/26 with NNO. Will f/u again in 3 weeks. Atrial fibrillation 4943 6004 I48.91 New-onset while inpatient. Tx with IV heparin & Dilt, spontaneou sly converted. Transition ed to Eliquis & Metoprolol by discharge. Continue Metoprolol for rate-contr ol.Continu e Eliquis for VTE prophylaxi s.Pt follows with Dr. Olson at [facility] as OP, last seen in Jan 2024. Daughter plans to schedule f/u appointmen t after d/c from [facility]. Pneumonia caused by SARS-CoV-2 [id number] J12.82 Dx with covid-19 on 03/30, dx with pneumonia on 04/08.Treate d OP with PO antibiotic s, steroids, and cough medication s.Symptoms had resolved by 04/28.Jc corona Duonebs to PRN Retention of urine 67849 4002 R33.9 Failed voiding trial on 05/10. As such, she was transferre d to our facility with a valle catheter. Reattempte d with Flomax on 05/14 and has been successful ly voiding. Flomax has been stopped.Mo nitor for recurrence . Pressure i njury of buttock 171999522 L89.309 Developed in April 2023 during COVID-19 pneumonia. Continue to offload pressure and treat with foam dressing daily.Woun d care to follow in-house. Essential hypertension 79471708 I10 Stable at present. OP Losartan & HCTZ were discontinu ed. Pt has been started on Metoprolol for rate-contr ol of Afib.Jc corona to trend blood pressures, monitor lytes and renal function, and adjust meds as clinically indicated. Hyperlipidemia 59404779 E78.5 Presumed stable. Continue Atorvastat in. Coronary arteriosclerosis 86528872 I25.10 Follow[address] OP [address] Olson at [facility]. Takes PRN NTG as OP for stable angina about 1x/week. RADHA while inpatient was mostly unremarkab le = LV systolic function normal, EF 55-60%. Mildly increased LV wall thickness. RV systolic function normal. LA chamber dimension moderately enlarged. Mild tricuspid valve regurg.Sta ble at present without concerns. Continue Metoprolol , Ranexa, & PRN NTG.F/U with cards as OP. Stable angina 008321231 I20.89 SEE ABOVE... Hypothyroidism 83486343 E03.9 Presumed stable. Continue Levothyrox ine. Osteoarthritis 799461040 M19.90 Stable. Continue PRN APAP. Dysphagia 93501745 R13.1 0 Some concerns while inpatient. Per daughter, MBS was un-concern ing.She has been discharged on mechanical soft diet with thin liquids.ST to follow. Gastroesop hageal reflux disease without esophagitis 665859251 K21.9 Stable. Continue Omeprazole and PRN Zofran. Migraine 86348280 G43.90 9 Per daughter, with aura of spotty vision.Sta ble. Continue Amitriptyl ine at bedtime. Prediabetes 360883232 R7 3.03 Details unclear. Continue to monitor blood sugars on bloodwork. Allergic rhinitis 830485 04 J30.9 Per history. Not presently on medication s. Monitor. 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 Continue supplement . Vitamin D deficiency 347 14514 E55.9 Per history. Not on supplement . Herpes labialis 7231655 B00.1 Healed with Abreva. Physical deconditioning 8618707613 9102 R68.89 Related to age, recent inpatient stay, and multiple comorbidit ies. Continue PT/OT/ST and monitor progress. Goal is for pt to return home with daughter. Continue PRN cathartics for constipati on per standing orders. Hypokalemia 88327540 E87 .6 Give KCl 40 meq x 1 dose. Lung field abnormal 2747 42684 R91.8 Obtain CXR.Respir atory status is stable.Mon itor closely. [id number] May Carrillo NP [facility] [address] [place] [address] 05/29/2024 17:15:58 05/30/2024 13:33:41 Lumbar spondylosis 076248832 M47.896 Pt has known compressio n fracture diagnosed at ER visit in Jan 2023. She has not suffered back pain after this and never establishe d with pain mgt. or spinal specialist . CT chest/abd/ pelvis on 05/05 noted chronic compressio n fracture of L2... severe lower lumbar spondylosi s. Pt did not initially present with lumbar back pain from hospital, occurred a day or two after arrival and beginning therapy. No known injury or cause per pt. She denies radiculopa thic pain. Points to her source of pain at level of L2.Routine APAP, Lidocaine patch, & PRN Flexeril were ineffectiv e. PRN Tramadol added without benefit, as well. Pain is worsening and pt is now unable to stand up and has regressed in regards to therapy progress.L umbosacral imaging here on 05/27 read: Moderate compressio n fracture of L2 vertebral body, of unknown age. Minimal lumbar degenerati ve disc disease and minimal lower lumbar facet arthrosis. Disc herniation cannot be excluded by plain film. For now, continue APAP, Lidocaine patch, and PRN Flexeril. Daughter wants PRN Tramadol stopped due to concern causing sedation and also not helping.Th erapy to utilize heating pad PRN.Spinal precaution s.Dr. Aviles started her on Calcitonin spray x 14 days (06/11).Ref er to pain management at [facility]. Burst frac ture of lumbar vertebra 084876709 S32.021S Old, noted on imaging incidental ly while inpatient. Jodi believes this occurred prior to Mar 2023.SEE ABOVE... Acute cholecystitis 6527 5009 K81.0 Initially attempted supportive treatment with IV antibiotic s, however worsened. Perc celia tube placed on 05/[address] Mckenzie.Symp toms have improved. She continues on Augmentin course x 15 days (05/26).RUQ drain dressing is changed q72hrs & PRN.Monito r labs and symptoms closely.Co ntinue therapiesF /U appt with Dr. Mckenzie on 05/26 with NNO. Will f/u again in 3 weeks. Atrial fibrillation 4943 6004 I48.91 New-onset while inpatient. Tx with IV heparin & Dilt, spontaneou sly converted. Transition ed to Eliquis & Metoprolol by discharge. Continue Metoprolol for rate-contr ol.Continu e Eliquis for VTE prophylaxi s.Pt follows with Dr. Olson at [facility] as OP, last seen in Jan 2024. Daughter plans to schedule f/u appointmen t after d/c from . Pneumonia caused by SARS-CoV-2 [id number] 49700772 J12.82 Dx with covid-19 on 03/30, dx with pneumonia on 04/08.Treate d OP with PO antibiotic s, steroids, and cough medication s.Symptoms had resolved by 04/28.Jc corona Duonebs to PRN Retention of urine 40474 4002 R33.9 Failed voiding trial on 05/10. As such, she was transferre d to our facility with a valle catheter. Reattempte d voiding trial with Flomax on 05/14 and has been successful ly voiding. Flomax has been stopped.Mo nitor for recurrence . Pressure i njury of buttock 039622100 L89.309 Developed in April 2023 during COVID-19 pneumonia. Continue to offload pressure and treat with foam dressing daily.Woun d care to follow in-house. Essential hypertension 19680760 I10 Stable at present. OP Losartan & HCTZ were discontinu ed. Pt has been started on Metoprolol for rate-contr ol of Afib.Jc corona to trend blood pressures, monitor lytes and renal function, and adjust meds as clinically indicated. Hyperlipidemia 95564366 E78.5 Presumed stable. Continue Atorvastat in. Coronary arteriosclerosis 44104338 I25.10 Follow[address] OP [address]. Olson at [facility]. Takes PRN NTG as OP for stable angina about 1x/week. RADHA while inpatient was mostly unremarkab le = LV systolic function normal, EF 55-60%. Mildly increased LV wall thickness. RV systolic function normal. LA chamber dimension moderately enlarged. Mild tricuspid valve regurg.Sta ble at present without concerns. Continue Metoprolol , Ranexa, & PRN NTG.F/U with cards as OP. Stable angina 811472091 I20.89 SEE ABOVE... Hypothyroidism 88596365 E03.9 Presumed stable. Continue Levothyrox ine. Osteoarthritis 878926701 M19.90 Stable. Continue PRN APAP. Dysphagia 76425827 R13.1 0 Some concerns while inpatient. Per daughter, MBS was un-concern ing.She has been discharged on mechanical soft diet with thin liquids.ST to follow. Gastroesop hageal reflux disease without esophagitis 035828205 K21.9 Stable. Continue Omeprazole and PRN Zofran. Migraine 03246253 G43.90 9 Per daughter, with aura of spotty vision.Sta ble. Continue Amitriptyl ine at bedtime. Prediabetes 905137420 R7 3.03 Details unclear. Continue to monitor blood sugars on bloodwork. BS 90 & 101 thus far. Allergic rhinitis 337238 04 J30.9 Per history. Not presently on medication s. Monitor. Disorder o f vitamin B12 505529360 E53.8 Presumed stable. Continue supplement . Vitamin D deficiency 347 37395 E55.9 Per history. Not on supplement . Herpes labialis 3684040 B00.1 Healed with Abreva. Physical deconditioning 4208033151 9102 R68.89 Related to age, recent inpatient stay, and multiple comorbidit ies. Continue PT/OT/ST and monitor progress. Goal is for pt to return home with daughter. Continue PRN cathartics for constipati on per standing orders. Edema of l ower extremity 252318814 R60.0 Lasix 40 mg daily x 3 days.KCl 20 meq daily x 3 days.Jc nue BLE rebeca wraps on AM off PM. Encourage elevation of BLE when at rest.Labs on 06/01. [id number] Diana Poe DO [facility] [address] [place] [address] 05/31/2024 16:34:55 06/03/2024 06:40:33 Acute urinary tract infection 762915233 N39.0 the patient was treated with IV Rocephin in the ER yesterdayc ontinue oral antibiotic s as ordered - keflex ordered per ER but changed to augmentin upon return to the facility - may need to transition to IV or IM rocephin if GI symptoms limit use of oral antibiotic s - awaiting urine culture results from [facility] and will adjust as clinically appropriat e Altered mental status 41 0899362 R41.82 suspect related to aboveavoid sedating meds - pain meds and muscle relaxants have been discontinu ed Lumbar spondylosis 14509 0009 M47.896 Pt has known compressio n fracture diagnosed at ER visit in Jan 2023. She has not suffered back pain after this and never establishe d with pain mgt. or spinal specialist . CT chest/abd/ pelvis on 05/05 noted chronic compressio n fracture of L2... severe lower lumbar spondylosi s. Pt did not initially present with lumbar back pain from hospital, occurred a day or two after arrival and beginning therapy. No known injury or cause per pt. She denies radiculopa thic pain. Points to her source of pain at level of L2.Routine APAP, Lidocaine patch, & PRN Flexeril were ineffectiv e. PRN Tramadol added without benefit, as well. Pain is worsening and pt is now unable to stand up and has regressed in regards to therapy progress.L umbosacral imaging here on 05/27 read: Moderate compressio n fracture of L2 vertebral body, of unknown age. Minimal lumbar degenerati ve disc disease and minimal lower lumbar facet arthrosis. Disc herniation cannot be excluded by plain film. For now, continue APAP, Lidocaine patch only - no pain meds or muscle relaxantsT herapy to utilize heating pad PRN.Spinal precaution s.Dr. Aviles started her on Calcitonin spray x 14 days (06/11).Ref erral has been made to pain management at [facility]. Burst frac ture of lumbar vertebra 830699114 S32.021S Old, noted on imaging incidental ly while inpatient. Jodi believes this occurred prior to Mar 2023.SEE ABOVE... Acute cholecystitis 6527 5009 K81.0 Initially attempted supportive treatment with IV antibiotic s, however worsened. Perc celia tube placed on 05/[address] Mckenzie.She completed Augmentin course x 15 days (05/26) but has had significan t clinical decline since then with nausea/vom iting/poor po intake - resuming antibiotic s at this time and will need to f/u with general surgery this week to update on clinical condition as it is unclear if symptoms are somewhat related to this and stopping antibiotic sgiving IV fluids again today due to poor po intakeRUQ drain dressing is changed q72hrs & PRN.She did have a F/U appt with Dr. Mckenzie on 05/26 with NNO. Atrial fibrillation 4943 6004 I48.91 New-onset while inpatient. Tx with IV heparin & Dilt, spontaneou sly converted. Transition ed to Eliquis & Metoprolol by discharge. Continue Metoprolol for rate-contr ol.Continu e Eliquis for VTE prophylaxi s.Pt follows with Dr. Olson at [facility] as OP, last seen in Jan 2024. Daughter plans to schedule f/u appointmen t after d/c from [facility]. Pneumonia caused by SARS-CoV-2 [id number] 75644306 J12.82 Dx with covid-19 on 03/30, dx with pneumonia on 04/08.Treate d OP with PO antibiotic s, steroids, and cough medication s.Symptoms had resolved by 04/28.She has had the need for supplement al O2 over the recent daysCXR done 05/27 was concerning for possible RLL infiltrate - need to get imaging studies done at [place] [facility] yesterday to see if CT included chest or if repeat CXR was done. If not, might consider repeat here.Jc nue Duonebs to PRN Retention of urine 20100 4002 R33.9 Failed voiding trial on 05/10. As such, she was transferre d to our facility with a valle catheter. Reattempte d voiding trial with Flomax on 05/14 and she had been successful ly voiding.Sh doni has had retention again over the recent days with dark/foamy urine and +UA in the ER yesterdayc ontinue valle catheter for now [id number] May Carrillo, EVONNE [facility] [place] [address] [place] [address] 06/01/2024 13:40:54 06/03/2024 09:50:28 Altered mental status 976424015 R41.82 Improved. Suspected sec to acute cholecysti tis recurrence .SEE ABOVE... Lumbar spondylosis 12000 0009 M47.896 Pt has known compressio n fracture diagnosed at ER visit in Jan 2023. She has not suffered back pain after this and never establishe d with pain mgt. or spinal specialist . CT chest/abd/ pelvis on 05/05 noted chronic compressio n fracture of L2... severe lower lumbar spondylosi s. Pt did not initially present with lumbar back pain from hospital, occurred a day or two after arrival and beginning therapy. No known injury or cause per pt. She denies radiculopa thic pain. Points to her source of pain at level of L2. Lumbosacra l imaging here on 05/27 read: Moderate compressio n fracture of L2 vertebral body, of unknown age. Minimal lumbar degenerati ve disc disease and minimal lower lumbar facet arthrosis. Disc herniation cannot be excluded by plain film. Cont inue routine APAP & Lidocaine patches.Pa in was worsening and pt was unable to stand up and regressed in regards to therapy progress. Pain appears improved after catheter placement and receiving antibiotic s -- possibly related to urinary retention or recurrence of acute cholecysti tis.Added PRN Flexeril & Tramadol -- both were ineffectiv e and concern contribute d to mental status change, so have d/ray both.Thera py to utilize heating pad PRN.Contin ue spinal precaution s.Dr. Aviles started her on Calcitonin spray x 14 days (06/11).Ref erral has been made to pain management at [facility]. Burst frac ture of lumbar vertebra 919954843 S32.021S Old, noted on imaging incidental ly while inpatient. Jodi believes this occurred prior to Mar 2023.SEE ABOVE... Acute cholecystitis 6527 5009 K81.0 Initially attempted supportive treatment with IV antibiotic s, however worsened. Perc celia tube placed on 05/[address] Mckenzie.She completed Augmentin course x 15 days (05/26) but has had significan t clinical decline since then with nausea, vomiting, poor po intake, back pain, and regression in therapy. Resumed PO Augmentin and received 1 liter of IVF on 05/31.Call out to Dr. Mckenzie (surgeon), reviewed CT from ER, gave okay for PRN celia-tube flushes, does not feel at this point that her cholangiog william needs to be moved up from 06/09 but requested we contact his office should she have another decline.RU Q drain dressing now to be changed daily.She did have a F/U appt with Dr. Mckenzie on 05/26 with NNO. Atrial fibrillation 4943 6004 I48.91 New-onset while inpatient. Tx with IV heparin & Dilt, spontaneou sly converted. Transition ed to Eliquis & Metoprolol by discharge. Continue Metoprolol for rate-contr ol.Continu e Eliquis for VTE prophylaxi s.Pt follows with Dr. Olson at [facility] as OP, last seen in Jan 2024. Daughter plans to schedule f/u appointmen t after d/c from [facility]. Pneumonia caused by SARS-CoV-2 [id number] 35319089 J12.82 Dx with covid-19 on 03/30, dx with pneumonia on 04/08.Treate d OP with PO antibiotic s, steroids, and cough medication s.Symptoms had resolved by 04/28.She has had the need for supplement al O2 over the recent daysContin ue Duonebs to PRN.SEE ABOVE... Retention of urine 43270 4002 R33.9 Failed voiding trial on 05/10. As such, she was transferre d to our facility with a valle catheter. Reattempte d voiding trial with Flomax on 05/14 and she had been successful ly voiding but she unfortunat christina had recurrence of retention on 05/30, so catheter was replaced.C ontinue catheter care and have restarted Flomax.SEE ABOVE... Asymptomat ic bacteriuria 160301902 R82.71 Patient was treated with IV Rocephin in the ER on 05/30.Contin ues on Augmentin but this for acute cholecysti tis.UA done here on 06/01 (after IV antibiotic dose) did not meet criteria for reflex.Sti ll waiting on urine culture results from [facility] from 05/30. Edema of l ower extremity 303511867 R60.0 Continue BLE rebeca wraps on AM off PM. Encourage elevation of BLE when at rest.Trend labs. Pressure i njury of buttock 030832623 L89.309 Developed in April 2023 during COVID-19 pneumonia. Continue to offload pressure and treat with foam dressing daily.Woun d care to follow in-house. Essential hypertension 09455431 I10 Stable at present. OP Losartan & HCTZ were discontinu ed. Pt has been started on Metoprolol for rate-contr ol of Afib.Jc nue to trend blood pressures, monitor lytes and renal function, and adjust meds as clinically indicated. Hyperlipidemia 76097773 E78.5 Presumed stable. Continue Atorvastat in. Coronary arteriosclerosis 91953754 I25.10 Followed OP by Dr. Olson at [facility]. Takes PRN NTG as OP for stable angina about 1x/week. RADHA while inpatient was mostly unremarkab le = LV systolic function normal, EF 55-60%. Mildly increased LV wall thickness. RV systolic function normal. LA chamber dimension moderately enlarged. Mild tricuspid valve regurg.Sta ble at present without concerns. Continue Metoprolol , Ranexa, & PRN NTG.F/U with cards as OP. Stable angina 206784927 I20.89 SEE ABOVE... Hypothyroidism 15099311 E03.9 Presumed stable. Continue Levothyrox ine. Osteoarthritis 115781070 M19.90 Stable. Continue PRN APAP. Dysphagia 82154269 R13.1 0 Some concerns while inpatient. Per daughter, MBS was un-concern ing.She has been discharged on mechanical soft diet with thin liquids.ST to follow. Gastroesop hageal reflux disease without esophagitis 643263365 K21.9 Stable. Continue Omeprazole and PRN Zofran. Migraine 01454144 G43.90 9 Per daughter, with aura of spotty vision.Sta ble. Continue Amitriptyl ine at bedtime, dose reduced to 20 mg qhs. Prediabetes 682915263 R7 3.03 Details unclear. Continue to monitor blood sugars on bloodwork. BS 90-100s thus far. Allergic rhinitis 963383 04 J30.9 Per history. Not presently on medication s. Monitor. Disorder o f vitamin B12 981422512 E53.8 Presumed stable. Continue supplement . Vitamin D deficiency 347 96400 E55.9 Per history. Not on supplement . Herpes labialis 1778006 B00.1 Healed with Abreva. Physical deconditioning 5471956129 9102 R68.89 Related to age, recent inpatient stay, and multiple comorbidit ies. Continue PT/OT/ST and monitor progress. Goal is for pt to return home with daughter. Continue PRN cathartics for constipati on per standing orders. Imaging of lung abnormal 549869564 R91.8 05/27 CXR on 05/27 done for abnormal lung sounds (crackes in bases) read Difficult evaluation because of respirator y motion. Small left pleural effusion vs. pleuropulm onary scarring at left costophren ic angle, other left basilar lung pathology may be obscured. Small focal infiltrate or pleuropulm onary scarring in medial right lung base. Marginal cardiomega ly with minimal, if any, pulmonary venous hypertensi on vs. vascular redistribu tion associated with recumbent positionrachel ovalle it appears that [facility] did not do lung imaging in the ER. She did briefly require oxygen supplement ation just before and during her ER visit, but has since been stable on RA.Continu e Augmentin as above. [id number] May Carrillo NP [facility] [address] [place] [address] 06/03/2024 12:08:20 06/08/2024 21:39:14 Acute cholecystitis 73364198 K81.0 Initially attempted supportive treatment with IV antibiotic s, however worsened. Perc celia tube placed on 05/[address] Mckenzie.She completed Augmentin course x 15 days (05/26) but had significan t clinical decline following with nausea, vomiting, poor po intake, back pain, and regression in therapy. Resumed PO Augmentin and received 1 liter of IVF on 05/31. She also received 1 dose of IV Rocephin on 05/30 in the ER. She has since improved in above-ment ioned symptoms but does still endorse [R] flank pain with transfers and has not yet progressed back to her prior level of functionin g before 05/26.Shiv Mckenzie (surgeon), who reviewed CT from ER, gave okay for PRN celia-tube flushes, and directed to keep her cholangiog william on 06/09. We are to contact his office should she have another decline.RU Q drain dressing being changed daily & PRN now.She did have a F/U appt with Dr. Mckenzie on 05/26 with NNO. Imaging of lung abnormal 007312976 R91.8 05/27 CXR on 05/27 done for abnormal lung sounds (crackes in bases) read Difficult evaluation because of respirator y motion. Small left pleural effusion vs. pleuropulm onary scarring at left costophren ic angle, other left basilar lung pathology may be obscured. Small focal infiltrate or pleuropulm onary scarring in medial right lung base. Marginal cardiomega ly with minimal, if any, pulmonary venous hypertensi on vs. vascular redistribu tion associated with recumbent positionin g. Unfortu nately it appears that [facility] did not do lung imaging in the ER. She did briefly require oxygen supplement ation just before and during her ER visit on 05/30, but has since been stable on RA.Continu e Augmentin as above. Asymptomat ic bacteriuria 745773908 R82.71 Patient was treated with IV Rocephin in the ER on 05/30.Contin ues on Augmentin but this for acute cholecysti tis.UA done here on 06/01 (after IV antibiotic dose) did not meet criteria for reflex.Sti ll waiting on urine culture results from [facility] from 05/30. Lumbar spondylosis 88512 0009 M47.896 Pt has known compressio n fracture diagnosed at ER visit in Jan 2023. She has not suffered back pain after this and never establishe d with pain mgt. or spinal specialist . CT chest/abd/ pelvis on 05/05 noted chronic compressio n fracture of L2... severe lower lumbar spondylosi s. Pt did not initially present with lumbar back pain from hospital, occurred a day or two after arrival and beginning therapy. No known injury or cause per pt. She denies radiculopa thic pain. Points to her source of pain at level of L2. Lumbosacra l imaging here on 05/27 read: Moderate compressio n fracture of L2 vertebral body, of unknown age. Minimal lumbar degenerati ve disc disease and minimal lower lumbar facet arthrosis. Disc herniation cannot be excluded by plain film. Cont inue routine APAP & Lidocaine patches.Pa in was worsening and pt was unable to stand up and regressed in regards to therapy progress. Pain appears improved after urinary catheter placement and receiving antibiotic s -- possibly related to urinary retention or recurrence of acute cholecysti tis.Added PRN Flexeril & Tramadol -- both were ineffectiv e and concern contribute d to mental status change, so have d/ray both.Thertonya py to utilize heating pad PRN.Contin ue spinal precaution s.Dr. Aviles started her on Calcitonin spray x 14 days (06/11).Ref erral has been made to pain management at [facility]. Burst frac ture of lumbar vertebra [id number] S32.021S Old, noted on imaging incidental ly while inpatient. Jodi believes this occurred prior to Mar 2023.SEE ABOVE... Altered mental status 41 [id number] R41.82 Improved. Suspected sec to acute cholecysti tis recurrence .SEE ABOVE... Atrial fibrillation 0723 6004 I48.91 New-onset while inpatient. Tx with IV heparin & Dilt, spontaneou sly converted. Transition ed to Eliquis & Metoprolol by discharge. Continue Metoprolol for rate-contr ol.Continu e Eliquis for VTE prophylaxi s.Pt follows with Dr. Olson at [facility] as OP, last seen in Jan 2024. Daughter plans to schedule f/u appointmen t after d/c from . Retention of urine 42464 4002 R33.9 Failed voiding trial on 05/10. As such, she was transferre d to our facility with a valle catheter. Reattempte d voiding trial with Flomax on 05/14 and she had been successful ly voiding but she unfortunat christina had recurrence of retention on 05/30, so catheter was replaced.C ontinue catheter care and have restarted Flomax.SEE ABOVE... Edema of l ower extremity 906294637 R60.0 Continue BLE rebeca wraps on AM off PM. Encourage elevation of BLE when at rest.Trend labs. Pressure i njury of buttock 426151619 L89.309 Developed in April 2023 during COVID-19 pneumonia. Continue to offload pressure and treat with foam dressing daily.Woun d care to follow in-house. Essential hypertension 09619321 I10 Stable at present. OP Losartan & HCTZ were discontinu ed. Pt has been started on Metoprolol for rate-contr ol of Afib.Jc nue to trend blood pressures, monitor lytes and renal function, and adjust meds as clinically indicated. Hyperlipidemia 59794518 E78.5 Presumed stable. Continue Atorvastat in. Coronary arteriosclerosis 82261476 I25.10 [address] OP [address] Olson at [facility]. Takes PRN NTG as OP for stable angina about 1x/week. RADHA while inpatient was mostly unremarkab le = LV systolic function normal, EF 55-60%. Mildly increased LV wall thickness. RV systolic function normal. LA chamber dimension moderately enlarged. Mild tricuspid valve regurg.Sta ble at present without concerns. Continue Metoprolol , Ranexa, & PRN NTG.F/U with cards as OP. Stable angina 218328742 I20.89 SEE ABOVE... Hypothyroidism 35884050 E03.9 Presumed stable. Continue Levothyrox ine. Osteoarthritis 128364739 M19.90 Stable. Continue PRN APAP. Dysphagia 29291630 R13.1 0 Some concerns while inpatient. Per daughter, MBS was unconcerni ng.She has been discharged on mechanical soft diet with thin liquids.ST to follow. Gastroesop hageal reflux disease without esophagitis 899714357 K21.9 Stable. Continue Omeprazole and PRN Zofran. Migraine 10702612 G43.90 9 Per daughter, with aura of spotty vision.Sta ble. Continue Amitriptyl ine at bedtime, dose reduced to 20 mg qhs. Prediabetes 544018374 R7 3.03 Details unclear. Continue to monitor blood sugars on bloodwork. BS 90-100s thus far. Allergic rhinitis 687816 04 J30.9 Per history. Not presently on medication s. Monitor. Disorder o f vitamin B12 997002970 E53.8 Presumed stable. Continue supplement . Vitamin D deficiency 347 25568 E55.9 Per history. Not on supplement . Herpes labialis 2445496 B00.1 Healed with Abreva. Pneumonia caused by SARS-CoV-2 1604831824 55856105 J12.82 Dx with covid-19 on 03/30, dx with pneumonia on 04/08.Treate d OP with PO antibiotic s, steroids, and cough medication s.Symptoms had resolved by 04/28.She has had the need for supplement al O2 over the recent daysContin ue Duonebs to PRN.SEE ABOVE... Physical deconditioning [id number] 9102 R68.89 Related to age, recent inpatient stay, and multiple comorbidit ies. Continue PT/OT/ST and monitor progress. Goal is for pt to return home with daughter. Continue PRN cathartics for constipati on per standing orders. [id number] May Carrillo NP [place] [address] [place] [address] 06/08/2024 10:22:03 06/08/2024 17:21:07 Acute cholecystitis 86625012 K81.0 Initially attempted supportive treatment with IV antibiotic s, however worsened. Perc celia tube placed on 05/[address] Mckenzie.She completed Augmentin course x 15 days (05/26) but had significan t clinical decline following with nausea, vomiting, poor po intake, back pain, and regression in therapy. Resumed PO Augmentin and received 1 liter of IVF on 05/31. She also received 1 dose of IV Rocephin on 05/30 in the ER. She has since improved in above-ment ioned symptoms but does still endorse [R] flank pain with transfers and has not yet progressed back to her prior level of functionin g before 05/26.Shiv Mckenzie (surgeon), who reviewed CT from ER, gave okay for PRN celia-tube flushes, and directed to keep her cholangiog william on 06/09. We are to contact his office should she have another decline.RU Q drain dressing being changed daily & PRN now.She did have a F/U appt with Dr. Mckenzie on 05/26 with NNO. Imaging of lung abnormal 832126572 R91.8 05/27 CXR on 05/27 done for abnormal lung sounds (crackes in bases) read Difficult evaluation because of respirator y motion. Small left pleural effusion vs. pleuropulm onary scarring at left costophren ic angle, other left basilar lung pathology may be obscured. Small focal infiltrate or pleuropulm onary scarring in medial right lung base. Marginal cardiomega ly with minimal, if any, pulmonary venous hypertensi on vs. vascular redistribu tion associated with recumbent positionin g. Unfortu nately it appears that [facility] did not do lung imaging in the ER. She did briefly require oxygen supplement ation just before and during her ER visit on 05/30, but has since been stable on RA.Continu e Augmentin as above. Asymptomat ic bacteriuria 334898561 R82.71 Patient was treated with IV Rocephin in the ER on 05/30.Contin ues on Augmentin but this for acute cholecysti tis.UA done here on 06/01 (after IV antibiotic dose) did not meet criteria for reflex.Uri ne culture results from [facility] from 05/30 only grew 10-49,0000 nakita albicans. Lumbar spondylosis 90369 0009 M47.896 Pt has known compressio n fracture diagnosed at ER visit in Jan 2023. She has not suffered back pain after this and never establishe d with pain mgt. or spinal specialist . CT chest/abd/ pelvis on 05/05 noted chronic compressio n fracture of L2... severe lower lumbar spondylosi s. Pt did not initially present with lumbar back pain from hospital, occurred a day or two after arrival and beginning therapy. No known injury or cause per pt. She denies radiculopa thic pain. Lumbosacra l imaging here on 05/27 read: Moderate compressio n fracture of L2 vertebral body, of unknown age. Minimal lumbar degenerati ve disc disease and minimal lower lumbar facet arthrosis. Disc herniation cannot be excluded by plain film. CT abd/pelvis on 05/30 noted highly suggestive acute fracture of T12. MRI evaluation advised. Loss of height in L2 which is suggestive of chronic compressio n. Multilevel disc bulges with variable degrees of interverte bral foraminal narrowing and with compressio n. Added PRN Flexeril & Tramadol -- both were ineffectiv e and concern contribute d to mental status change, so have d/ray both.Jc nue routine APAP & Lidocaine patches.Dr Chana Aviles has extended Celecoxib x 5 more days (06/13).Con tinue Calcitonin nasal spray through 06/11.Thera py to utilize heating pad PRN.Contin ue spinal precaution s.Referral has been made to pain management at [facility]. Burst frac ture of lumbar vertebra 977752428 S32.021S SEE ABOVE... Altered mental status 41 1739656 R41.82 Improved. Suspected sec to acute cholecysti tis recurrence .SEE ABOVE... Atrial fibrillation 4943 6004 I48.91 New-onset while inpatient. Tx with IV heparin & Dilt, spontaneou sly converted. Transition ed to Eliquis & Metoprolol by discharge. Continue Metoprolol for rate-contr ol.Continu e Eliquis for VTE prophylaxi s.Pt follows with Dr. Olson at [facility] as OP, last seen in Jan 2024. Daughter plans to schedule f/u appointmen t after d/c from . Retention of urine 81568 4002 R33.9 Failed voiding trial on 05/10. As such, she was transferre d to our facility with a valle catheter. Reattempte d voiding trial with Flomax on 05/14 and she had been successful ly voiding but she unfortunat christina had recurrence of retention on 05/30, so catheter was replaced.R estarted Flomax and will again attempt voiding trial today.SEE ABOVE... Edema of l ower extremity 359097345 R60.0 Continue BLE rebeca wraps on AM off PM. Encourage elevation of BLE when at rest.Trend labs. Pressure i njury of buttock 325386162 L89.309 Developed in April 2023 during COVID-19 pneumonia. Continue to offload pressure and treat with foam dressing daily.Woun d care to follow in-house. Essential hypertension 58090553 I10 Stable at present. OP Losartan & HCTZ were discontinu ed. Pt has been started on Metoprolol for rate-contr ol of Afib.Jc nue to trend blood pressures, monitor lytes and renal function, and adjust meds as clinically indicated. Hyperlipidemia 99107758 E78.5 Presumed stable. Continue Atorvastat in. Coronary arteriosclerosis 39844660 I25.10 Follow[address] OP [address]. Olson at [facility]. Takes PRN NTG as OP for stable angina about 1x/week. RADHA while inpatient was mostly unremarkab le = LV systolic function normal, EF 55-60%. Mildly increased LV wall thickness. RV systolic function normal. LA chamber dimension moderately enlarged. Mild tricuspid valve regurg.Sta ble at present without concerns. Continue Metoprolol , Ranexa, & PRN NTG.F/U with cards as OP. Stable angina 944217222 I20.89 SEE ABOVE... Hypothyroidism 19257939 E03.9 Presumed stable. Continue Levothyrox ine. Osteoarthritis 513390662 M19.90 Stable. Continue PRN APAP. Dysphagia 94326422 R13.1 0 Some concerns while inpatient. Per daughter, MBS was unconcerni ng.She has been discharged on mechanical soft diet with thin liquids.ST to follow. Gastroesop hageal reflux disease without esophagitis 323261573 K21.9 Stable. Continue Omeprazole and PRN Zofran. Migraine 23848331 G43.90 9 Per daughter, with aura of spotty vision.Sta ble. Continue Amitriptyl ine at bedtime, dose reduced to 20 mg qhs. Prediabetes 194862503 R7 3.03 Details unclear. Continue to monitor blood sugars on bloodwork. BS 90-100s thus far. Allergic rhinitis 808279 04 J30.9 Per history. Not presently on medication s. Monitor. Disorder o f vitamin B12 570785676 E53.8 Presumed stable. Continue supplement . Vitamin D deficiency 347 25993 E55.9 Per history. Not on supplement . Herpes labialis 6483245 B00.1 Healed with Abreva. Pneumonia caused by SARS-CoV-2 4608336062 55263973 J12.82 Dx with covid-19 on 03/30, dx with pneumonia on 04/08.Treate d OP with PO antibiotic s, steroids, and cough medication s.Symptoms had resolved by 04/28.She has had the need for supplement al O2 over the recent daysContin ue Duonebs to PRN.SEE ABOVE... Physical deconditioning 1209216932 9102 R68.89 Related to age, recent inpatient stay, and multiple comorbidit ies. Continue PT/OT/ST and monitor progress. Goal is for pt to return home with daughter. Continue PRN cathartics for constipati on per standing orders. Health Concerns Section Related Observation LastModified by Organization Detai ls LastModified Time None Recorded Concern Status LastModified by Organization Details LastModified Time None Recorded Payers Encounter Date Sequence Insurance Name Policy Number Policy Bartholomew Covered Member ID Bartholomew Member ID Guarantor Name 06/08/2024 1 MEDICARE B-[place]: WPS Maude Milton [id number] Maude Milton 06/08/2024 2 [facility] [employer] (MEDICARE SUPPLEMENT) Maude Milton [id number] Maude Milton Notes Date Note Type Note Provider Name and Address Organization Details Recorded Time 06/08/2024 text/html F/U acute cholecystitis, T12 (new?) & L2 (old) compression fractures with back pain, new diagnosis Afib, recurrent urinary retention, recent COVID-19 pneumonia, weakness, and chronic medical conditions.---05/12/24 Maude is drowsy today -- she will open her eyes, respond to questions asked, and interact appropriately while you are speaking directly to her, but otherwise she will close her eyes and nod off to sleep while I speak with Jodi. Jodi says she is typically alert and oriented but she has been more confused during recent hospitalization. Maude was earlier complaining of burning from the catheter that was relieved when she lie down. We discussed that possible trauma from tugging on bag could cause this sensation. Urine in bag is tea colored but clear. Dr. Aviles started pt on Flomax and we will attempt voiding trial once again at later date. RUQ dressing is intact without drainage or concerns, drainage is also light brown and scant in amount. Jodi reports this dressing is to be changed [id number] per the surgeon, rather than the daily dressing change that was passed on in report. She notes she was taught this as she will be taking care of this tube when Maude discharges, as she expects the tube to remain in place for some time. She plans to call Dr. Mckenzie today to set up Maude's 2-week f/u and she will take her in her personal vehicle. Maude is otherwise without complaints, denies abdominal pain, nausea, or any other concerns. VSS. Staff is without concerns, as well.---05/14/24 patient is sitting up in her W/C this evening. Her daughter is at the bedside. The patient is alert and conversant. She is not having abdominal pain at this time. Her valle was removed at 1 pm today - she has urinated x 1 since then. She did not have pain or burning with urination but did feel that she had to strain quite a bit to go. Her cholecystostomy tube is draining a small amount of light brown fluid.---05/19/24Maude is alert, seated at the dining table, a fair historian, without concerns or pain to report today. She does report some aching lower back pain that started yesterday but says it was relieved by PRN APAP. She continues to urinate without concerns. VSS. Staff is without concerns today. They note her celia drain is putting out about 40-50 ml/24 hrs of clear brown drainage. Per today's therapy notes: Patient ambulated 50 ft on level surfaces with a FWW, requiring Dave. Patient required cueing for upright posture and weight shifting. Patient performed sit to stands and pivot transfers requiring CGA-Dave for safety and sequencing ---05/25/24 Maude is seated in her recliner, a fair historian, reports her back pain continues to be bothersome to her, not when she is at rest, but during transfers in and out of bed and on and off the toilet. She denies radiculopathy symptoms. She is on the phone with her daughter Jodi so we are able to have a 3-way discussion. Jodi notes that her mother has a history of compression fracture and had a similar flare to this back in Mar 2023. She was seen in the ER, was given some medication that helped the pain, and discharged on Cyclobenzaprine. The pain quickly resolved and has not recurred since. Jodi notes at that time they had attributed this pain to a previously-diagnosed compression fracture. Thus far, Maude notes heat used during therapy has been helpful and that her Cyclobenzaprine has helped, but wears off after about an hour. She denies any drowsiness with this medication. We discuss possible advancement to a stronger medication like Tramadol but pt/Jodi would like to try a higher dose of Cyclobenzaprine first. Jodi is largely worried because if her mother doesn't improve in this regard, she will not be able to discharge home. Maude says she did not have this pain while in the hospital so she does not believe imaging was done on her back, but also reports she did not move much while inpatient and that this pain began on the 2nd day here so she may have tweaked it during a therapy session. She cannot recall a specific injury/move that may have caused this. I am able to review [facility] records and note CT abd/pelvis on 05/02/24 noted, There is a chronic burst fracture of L.2. There is severe lower lumbar spondylosis. This was again noted on F/U CT of same on 05/05/24. Maude and Jodi are happy with plan moving forward, that if relief is not obtained from Cyclobenzaprine, will likely progress to stronger pain medication such as PRN Tramadol. VSS. Staff does not offer any concerns today.---05/27/24Maude is seated in her w/c in her room, a fair historian, continues to report lumbar back pain. She feels that the pain has worsened and indicates her L3/L4 area is where the pain is. She continues to report lying flat, sitting, and standing upright does not illicit the pain, but moving from lying to seated and from seated to standing is what brings the pain about. She again denies radiculopathy. She also reports emesis this morning before breakfast and an episode yesterday after breakfast. She reports this isn't a new concern, that this has happened sporadically to her over the years -- abrupt emesis and then I feel fine afterward. I have a nausea pill I take for it. She saw Dr. Mckenzie yesterday and returned with NNO except to f/u again in 3 weeks. Physical examination reveals crackles to her bilateral lower lobes. She reports an intermittent dry cough without phlegm, denies SOB/VALENZUELA. VSS. Staff is without concerns today beyond emesis this AM. Per therapy notes on 05/26: Patient ambulated 50 ft on level surfaces with a FWW, requiring CGA. Patient performed sit to stand to FWW requiring CGA ---05/29/24Peggjennifer is seated in her wheelchair in the common area, her daughter Jodi by her side. She is noted to have a left sided lean that is new. Neuro exam is at baseline. She is unable to explain why she is leaning this way, but later does report that she has been upright in her wheelchair for the last six hours and that her right side is uncomfortable so she is leaning in an effort to give it rest. She appears mildly drowsy, but is alert and keeps her eyes open during our entire conversation and contributes and answers questions at her baseline. She appears sleepy, however. Jodi is quite concerned regarding her regression in therapy and notes that she has had difficult even standing up today. Notably, Dr. Aviles initiated the patient on PRN tramadol yesterday so she received both tramadol and cyclobenzaprine this morning. Despite this, the patient reports that the tramadol was not entirely effective and her daughter would like it discontinued due to concern that it is causing drowsiness. We discuss at length the patient's historical back concerns, including imaging results here that show her old L2 fracture. Patient and Jodi confirm that she never did see a spinal specialist after diagnosis in January 2023 as hospitalizations shortly following prevented this and then lack of concern for back pain following this did not warrant an appointment. They are open to seeing pain management at this point as the patient has had a large setback in her mobility. She's also noted to have an increase in edema to her lower extremities, although her weight has not increased. She does have compression in place, but her legs have been hanging down since early this morning. VSS. Staff is without concerns otherwise. Per today's therapy notes: Patient attempted ambulation 5 ft with a FWW requiring moderate assist with FWW. Patient demonstrating difficulty with ambulation (weight shifting) due to increased LB pain. Patient performed sit to stand and pivot transfers requiring max assist (cueing for hand placement, safety and sequencing). --- 5f/u with the patient today after an ER visit at [facility] 05/30 due to increased lethargy, hypoxia requiring supplemental O2, urinary retention with poor urine output and AMS over the last couple of days. While at the ER, she was diagnosed with a UTI treated with IV rocephin and now oral keflex (to start today). She was given IV fluids, ordered to stop pain meds and muscle relaxants as there is concern that these are contributing to her AMS and lethargy. Oral antibiotic orders have been changed from keflex to augmentin in light of her recent cholecystitis and hypoxia/concern for possible right lung basilar infiltrate.The patient is lying in bed this afternoon, somnolent, confused from baseline and weak. Her daughter, Jodi, is at the bedside and her POA/daughter, Anjelica, is on the phone. We discuss her recent clinical decline, ER visit and orders/plan of care. The patient was, unfortunately, sent back from [place] without appropriate records - nursing is trying to get labs/UA/imaging results from yesterday. Labs have been ordered again for today which are being drawn during this exam. The patient has eaten very little over the last 48 hours - she has been drinking small amounts of water at the encouragement of her daughter. She is having nausea and some episodes of vomiting limiting her oral intake. She denies abdominal pain, valle remains in place draining clear but very dark luis colored urine. Vitals have been stable.---06/01/24Peggjennifer is seated in her w/c in her room, much improved since my last visit on 05/29. She is alert, sitting upright, eating and drinking with good appetite, and denies any pain, even back pain. She has completed 1 liter of fluids overnight via PIV. Order was given yesterday to start Augmentin for cholecystitis/pneumon ia but this was not started. Have discussed with staff here. Dressing of pt's celia tube has a large amount of bilious-purulent drainage around insertion site. Drainage bag itself is empty and nursing reports it has not been draining over the weekend. Site cleaned and redressed. Maude also reports a soreness to the catheter site that is new since it was placed, starting yesterday. She notes it is relieved at present. Daughter Anjelica comes towards the end of my visit and Dr. Aviles joins us. We do not have full records from [place] yet but Anjelica does confirm that a CT of her abdomen was completed while in the ER. She is very happy with her mother's improvement but is frustrated they did not keep her at the hospital. I contact Dr. Mckenzie's office and left a message with his staff requesting that he evaluate the CT scan done on 05/30 to make certain it remains improved from her hospital stay and determine if she needs to be seen sooner. Also relay plan to restart Augmentin as concern that pt's sharp downhill turn began once her Augmentin stopped on 05/26. He is in procedures but relays orders to continue Augmentin until she has her cholangiogram on 06/09. Depending on the results of that, he may continue antibiotics or discontinue tube entirely. No f/u appt is scheduled in office yet. He gave okay to flush tube PRN, as well. We are to contact his office if she takes another sharp downhill turn like she did previously. Pt had recurrence of urinary retention over the weekend, ultimately requiring valle replacement on 05/30. This was before her ER visit on 05/30. UA collected from 05/31 was normal and did not meet reflex criteria, but note she had received 1 dose of IV antibiotics in the ER on 05/30. Pt denies any S&S of UTI. Respiratory status is stable on RA, VSS. Per today's therapy notes: sit to stand transfers min- moderate assist. pivot transfer from wheelchair <> toilet requiring moderate assist. Graded therapeutic self-care retraining as follows: Bed mobility supine to sit EOB with MOD, LB dressing with MOD and UB dressing with CGA, toileting with MOD. ---06/03/24Peggjennifer is seated in her w/c in her room, doing well today, without concerns and continues to feel much improved, but does report right flank pain with movement. She reports this began yesterday and no longer involves her spinal column and does not cross over to left side. She describes it as an ache that is worse with transfers. The celia-tube insertion site is without drainage and with clean bandage in place. Celia-bag remains with scant amt of opaque brown drainage. VSS. Staff is without concerns. Per therapy notes: Patient performed sit to stand and pivot transfers (w/c <> toilet) requiring min to moderate assist with increased time (cueing for hand placement, safety and sequencing). Graded therapeutic self-care retraining as follows: Bed mobility supine to sit EOB with MAX, LB dressing with MAX, UB dressing with MOD. Patient reports pain in lower back 01/08 impacting self-care tasks ---06/08/24Peggy is resting in bed, complains of dysuria that has kept her up most of the night. She describes symptoms of bladder spasms. Urine in valle bag is clear and light yellow. She denies any accidental tugging of the catheter. Discussed with Dr. Aviles and will repeat attempt at voiding trial and continue on Flomax. Her celia-tube remains with small amount of opaque, dark brown drainage and she is noted to have a small amount of this on the dressing of her insertion site on her abdomen, as well. VSS. Staff is without concerns today. Daughter arrives towards the end of my visit and we update her on plan of care. She is without concerns at present. She will have cholangiogram tomorrow in the morning. Per today's therapy notes: Patient ambulated 40 ft on level surfaces with a FWW, requiring CGA. Patient required cueing for upright posture. Patient performed sit to stand and pivot transfers requiring Dave. Patient having difficulty with forward weight shifting upon standing, some retropulsion noted - corrected with increased time and cues. May Carrillo, EVONNE [id number] [facility], [place], [id number], [place] [facility] 06/08/2024 17:21:03 OBGyn Episode No OBEpisode recorded.
--- OUTSIDE RECORDS SUMMARY | 2024-06-09 08:51 | XMS_ITS | Data Portability ---
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 D/C PRN Tramadol per daughter's request. Lasix 40 mg daily x 3 days. KCl 20 meq daily x 3 days. Refer to pain management at [facility]. Could consider steroid use but deferring/avoiding for now due to adverse effects expected. Therapy to utilize heating pad PRN. Spinal precautions. Labs (CBC, CMP, CRP) on 06/01. Check magnesium level with next lab draw. Not available 05/30/2024 13:11:57 05/31/2024 05/31/2024 continue antibiotics as ordered - stat labs just drawn, IV fluid x 1 liter, nursing working on getting remaining records from [place] [facility] [email or web address] Not available 06/03/2024 06:24:20 06/01/2024 06/01/2024 Restart Flomax. Completed 1 liter of NS. D/C peripheral IV. Urine cx from [facility] pending. UA here was unconcerning. Restart Augmentin through 06/09 for recurrence of cholecystitis. Call out to Dr. Mckenzie (surgeon), reviewed CT from ER, gave okay for PRN celia-tube flushes, does not feel at this point that her cholangiogram needs to be moved up from 06/09 but requested we contact his office should she have another decline. [email or web address] Not available 06/03/2024 09:46:50 06/03/2024 06/03/2024 Urine cx from [facility] pending. [email or web address] Not available 06/03/2024 16:02:45 06/08/2024 06/08/2024 Labs (CBC, CMP, CRP) on 06/09. Dr. Aviles extended Celecoxib course x 5 more days. Voiding trial. [email or web address] Not available 06/08/2024 17:20:12 Plan of Treatment [...] Modified By Organization Details Last Modified Time 05/31/2024 [id number] I spent {{ >50#} } minutes providing care to the patient today. More than 50% of that time was spent in discussing the expected course of the disease, discussing prognosis, coordinating care and counseling of the patient/family. Of note, the patient's antibiotics have been held today by web administrator/DON orders as urine culture results are not back from her ER visit yesterday. I have had a long discussion with the patient's nurse that the patient needs to be given two doses of augmentin as ordered today (nursing reports this medication is available in the pyxis and will not require pharmacy delivery). The patient has multiple concerns for infection: 1) was diagnosed with a UTI with orders to continue antibiotics per ER physician yesterday, 2) has a possible pneumonia per recent CXR with a new supplemental O2 need, AND 3) recent cholecystitis/abru pt decline since stopping antibiotics 05/26 with new GI symptoms. I have relayed my concerns/need to continue antibiotics for now to the web administrator via text message today at [phone]. [email or web address] Not available 06/03/2024 06:40:07 06/01/2024 [id number] I spent {{ 47#}} minutes providing care to the patient today. More than 50% of that time was spent in discussing the expected course of the disease, discussing prognosis, coordinating care and counseling of the patient/family. Not available 06/02/2024 09:19:48 06/03/2024 [id number] I spent {{ 36#}} minutes providing care to the patient today. More than 50% of that time was spent in discussing the expected course of the disease, discussing prognosis, coordinating care and counseling of the patient/family. Not available 06/03/2024 16:06:15 06/08/2024 [id number] I spent {{ 37#}} minutes providing care to the patient today. More than 50% of that time was spent in discussing the expected course of the disease, discussing prognosis, coordinating care and counseling of the patient/family. Not available 06/08/2024 16:23:24 Reason for Referral None Reported. Results Created Date Observation Date Name Description Value Unit Range Abnormal Flag Note LastModifiedBy Organization Detail LastModifiedTime 05/27/19 25 05/27/2024 XR, chest , 2 view No observ ation record ed. [facility] ([facility]) [address], [place], [address], 05/29/2024 09:44:02 05/27/19 25 05/27/2024 XR, lumbo sacra l spine No observ ation record ed. [facility] ([facility]) [address], [place], [address], 05/29/2024 09:44:12 05/28/19 25 05/27/2024 XR, chest , 2 view No observ ation record ed. [facility] [address] , [place], [address], 05/29/2024 09:44:25 Result Notes None recorded. Procedures Surgical History Date Name Laterality Status Provider Name and Address Organization Details Recorded Time 05/06/19 percutaneous cholecystostomy completed May Carrillo, EVONNE [address] [facility], [place], [address], [facility] 05/12/2024 16:27:51 cardiac catheterization completed Marnice Neel [place] [facility] 05/13/2024 14:14:34 colonoscopic polypectomy completed Stephienice Neel [place] [facility] 05/13/2024 14:15:03 Appendectomy completed Stephienice Neel [place] [facility] 05/13/2024 14:15:20 extraction of cataract completed Marnice Neel [place] [facility] 05/13/2024 14:15:30 hysterectomy completed Stephienice Neel [place] [facility] 05/13/2024 14:15:39 Imaging Results Imaging Date Name Status LastModified by Organiz ation Details LastModified Time 05/27/2024 XR, chest, 2 view completed [facility] ([facility]) [address], [place], [address], 05/29/2024 09:44:02 05/27/2024 XR, lumbosacral spine completed [facility] ([facility]) [address], [place], [address], 05/29/2024 09:44:12 05/27/2024 XR, chest, 2 view completed [place] [address] , [place], [address], 05/29/2024 09:44:25 Procedure Notes None recorded. Medical Equipment None Reported. Allergies Allergen ID Allergen Name Allergen Category Reaction Reaction Severity Criticality Documentation Date Start Date Code Code System Note Provider Name and Address Organization Details Recorded Time 46912 alendrona te sodium medicatio n Not available Not available Not available 05/12/202433892 2 RxNorm Not Available Not Available Not Available 83775 hydrocodo ne Not available Not available Not available Not available 05/12/2024 5489 RxNorm Not Available Not Available Not Available 66300 levofloxa iliana medicatio n Not available Not available Not available 05/12/2024 83905 RxNorm Not Available Not Available Not Available [...] Not Available No t Available amoxicillin 875 mg-potlioneliu m clavulanate 125 mg tablet Take 1 [...] and Address Organization Details Last Updated DateTime 5 160.02 cm 78 /min 98.2 [degF] 20 /min 91 % 91 % 31.7 kg/m2 90234.7 5 g 137 mm[Hg] 70 mm[Hg] [place] [address] [place], [address] [employer] [facility] 5 12:54:19 Date Recorded Body height Body mass index (BMI) Body weight Heart rate Oxygen saturation Oxygen saturation in Arterial blood by Pulse oximetry Inhaled oxygen flow rate Respiratory rate Body temperature Systolic blood pressure Diastolic blood pressure Provider Name and Address Organization Details Last Updated DateTime 5 160.02 cm 31.7 kg/m2 61732.7 5 g 69 /min 99 % 99 % 2 L/min 18 /min 97.6 [degF] 137 mm[Hg] 77 mm[Hg] [place] [address] [place], [address], [facility] 5 02:50:59 Date Recorded Body height Heart rate Body temperature Respiratory rate Oxygen saturation Oxygen saturation in Arterial blood by Pulse oximetry Body mass index (BMI) Body weight Systolic blood pressure Diastolic blood pressure Provider Name and Address Organization Details Last Updated DateTime 160.02 cm 79 /min 98.2 [degF] 18 /min 96 % 96 % 32 kg/m2 98654.7 8 g 155 mm[Hg] 69 mm[Hg] [place] [address] [place], [address], [facility] 15:48:05 Date Recorded Body height Heart rate Body temperature Respiratory rate Oxygen saturation Oxygen saturation in Arterial blood by Pulse oximetry Body mass index (BMI) Body weight Systolic blood pressure Diastolic blood pressure Provider Name and Address Organization Details Last Updated DateTime 160.02 cm 84 /min 97.8 [degF] 18 /min 93 % 93 % 32 kg/m2 06461.7 8 g 152 mm[Hg] 68 mm[Hg] [place] [address] [place], [address], [facility] 15:55:01 Date Recorded Body height Heart rate Body temperature Respiratory rate Oxygen saturation Oxygen saturation in Arterial blood by Pulse oximetry Body mass index (BMI) Body weight Systolic blood pressure Diastolic blood pressure Provider Name and Address Organization Details Last Updated DateTime 160.02 cm 79 /min 97.5 [degF] 16 /min 96 % 96 % 31.1 kg/m2 14297.7 4 g 124 mm[Hg] 71 mm[Hg] [place] [address] [place], [address], [facility] [employer] [facility] 16:10:35 Social History Question Answer Notes LastModified by Organizat ion Details LastModified Time Tobacco Smoking [place] [address] [place], [address], [facility] 05/12/2024 14:21:47 What Is Your Level [...] available 2024 14:14:12 Medical History Condition Response Osteoarthritis / DJD Y Hypothyroidism Y Vitamin D Deficiency Y Coronary Artery Disease (CAD) Y Vitamin B12 Deficiency Y Diabetes Y Hyperlipidemia Y Allergic Rhinitis Y GERD / Reflux Y Hypertension Y Gynecological HistoryNo gynecological history recorded. Obstetrics History GPAL:G 0 P 0 0 0 0 Past Encounters Encounter ID Performer Location Encounter Start Date Encounter Closed Date Diagnosis/Indication Diagnosis SNOMED-CT Code Diagnosis ICD10 Code Diagnosis Note [id number] May Carrillo NP [address] [address] 05/12/2024 10:12:13 05/25/2024 11:48:21 Pressure injury of buttock 841856642 L89.309 Developed in April 2023 during COVID-19 [...] appt with Dr. Mckenzie today. Atrial fibrillation 4940 6008 I48.91 New-onset while inpatient. Tx with IV heparin & Dilt, spontaneou sly converted. Transition ed to Eliquis & Metoprolol by discharge. Continue Metoprolol for rate-contr ol.Continu e Eliquis for VTE prophylaxi s.Pt follows with Dr. Olson at [facility] as OP, last seen in Jan 2024. Daughter is unclear if they will f/u with him at hospital discharge vs. attempt to find a cardiologi st closer to home. Pneumonia caused by SARS-CoV-2 3538811838 71849327 J12.82 Dx with covid-19 on 03/30, dx with pneumonia on 04/08.Treate d OP with PO antibiotic s, steroids, and cough medication s.Symptoms had resolved by 04/28.Kirill marion Duonebs to PRN -- pt does not use as OP and daughter isn't clear why these were being given while inpatient. Pt did not have any respirator y concerns while inpatient. Physical deconditioning 0478622602 9102 R68.89 Related to age, recent inpatient stay, and multiple comorbidit ies. Continue PT/OT/ST and monitor progress. Goal is for pt to return home with daughter. Continue PRN cathartics for constipati on per standing orders. Essential hypertension 16212146 I10 Stable at present. OP Losartan & HCTZ were discontinu ed. Pt has been started on Metoprolol for rate-contr ol of Afib.Jc nue to trend blood pressures, monitor lytes and renal function, and adjust meds as clinically indicated. Hyperlipidemia 31664288 E78.5 Presumed stable. Continue Atorvastat in. Coronary arteriosclerosis 95576797 I25.[address] Olson at [facility]. Takes PRN NTG as OP for stable angina about 1x/week. RADHA while inpatient was mostly unremarkab le = LV systolic function normal, EF 55-60%. Mildly increased LV wall thickness. RV systolic function normal. LA chamber dimension moderately enlarged. Mild tricuspid valve regurg.Sta ble at present without concerns. Continue Metoprolol , Ranexa, & PRN NTG.F/U with cards as OP. Stable angina 661572023 I20.89 SEE ABOVE... Prediabetes 547965447 R7 3.03 Details unclear. Continue to monitor blood sugars on bloodwork. Hypothyroidism 55613002 E03.9 Presumed stable. Continue Levothyrox ine. Osteoarthritis 008832987 M19.90 Stable. Continue PRN APAP. Gastroesop hageal reflux disease without esophagitis 472714668 K21.9 Stable. Continue Omeprazole and PRN Zofran. Migraine 44121697 G43.90 9 Per daughter, with aura of spotty vision.Sta ble. Continue Amitriptyl ine at bedtime. Allergic rhinitis 859035 04 J30.9 Per history. Not presently on medication s. Monitor. 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 Continue supplement . Vitamin D deficiency 347 88672 E55.9 Per history. Not on supplement . Herpes labialis 7357797 B00.1 Abreva x 3 days or until healed. Retention of urine 72770 4002 R33.9 Failed voiding trial on 05/10. As such, she has transferre d to our facility with a valle catheter.Anastasiia Rickettse started Flomax.Antwon l need voiding trial once more ambulatory . Dysphagia 73790155 R13.1 0 Some concerns while inpatient. Per daughter, MBS was unconcerni ng.She has been discharged on mechanical soft diet with thin liquids.ST to follow. [id number] Diana Poe, DO [address] [address] 05/14/2024 18:57:55 05/25/2024 11:49:54 Acute cholecystitis 54788824 K81.0 Initially attempted supportive treatment with IV [...] prophylaxi s.Pt follows with Dr. Olson at [facility] as OP, last seen in Jan 2024. Daughter plans to schedule f/u appointmen t after d/c from [facility] Pneumonia caused by SARS-CoV-2 3090210407 35013653 J12.82 Dx with covid-19 on 03/30, dx with pneumonia on 04/08.Treate d OP with PO antibiotic s, steroids, and cough medication s.Symptoms had resolved by 04/28.Jc corona Duonebs to PRN Retention of urine 34551 4002 R33.9 Failed voiding trial on 05/10. As such, she has transferre d to our facility with a valle catheter.Anastasiia Aviles started Flomax.fol ey catheter removed earlier today Pressure i njury of buttock 683753550 L89.309 Developed in April 2023 during COVID-19 pneumonia. Continue to offload pressure and treat with foam dressing daily.Woun d care to follow in-house. Herpes labialis 5598272 B00.1 Abreva x 3 days or until healed Essential hypertension 49116285 I10 Stable at present. OP Losartan & HCTZ were discontinu ed. Pt has been started on Metoprolol for rate-contr ol of Afib.Jc corona to trend blood pressures, monitor lytes and renal function, and adjust meds as clinically indicated. Hyperlipidemia 52242274 E78.5 Presumed stable. Continue Atorvastat in. Coronary arteriosclerosis 07182328 I25.[address] Olson at [facility]. Takes PRN NTG as OP for stable angina about 1x/week. RADHA while inpatient was mostly unremarkab le = LV systolic function normal, EF 55-60%. Mildly increased LV wall thickness. RV systolic function normal. LA chamber dimension moderately enlarged. Mild tricuspid valve regurg.Sta ble at present without concerns. Continue Metoprolol , Ranexa, & PRN NTG.F/U with cards as OP. Stable angina 938736879 I20.89 SEE ABOVE... Hypothyroidism 36260713 E03.9 Presumed stable. Continue Levothyrox ine. Osteoarthritis 085763763 M19.90 Stable. Continue PRN APAP. Dysphagia 73846345 R13.1 0 Some concerns while inpatient. Per daughter, MBS was un-concern ing.She has been discharged on mechanical soft diet with thin liquids.ST to follow. Gastroesop hageal reflux disease without esophagitis 844776841 K21.9 Stable. Continue Omeprazole and PRN Zofran. Migraine 11047199 G43.90 9 Per daughter, with aura of spotty vision.Sta ble. Continue Amitriptyl ine at bedtime. Prediabetes 008216478 R7 3.03 Details unclear. Continue to monitor blood sugars on bloodwork. Allergic rhinitis 478652 04 J30.9 Per history. Not presently on medication s. Monitor. Disorder o f vitamin B12 380217288 E53.8 Presumed stable. Continue supplement . Vitamin D deficiency 347 17827 E55.9 Per history. Not on supplement . Physical deconditioning 0220369327 9102 R68.89 Related to age, recent inpatient stay, and multiple comorbidit ies. Continue PT/OT/ST and monitor progress. Goal is for pt to return home with daughter. Continue PRN cathartics for constipati on per standing orders. [id number] May Carrillo NP [address] [place] [address] 05/19/2024 08:28:41 05/25/2024 11:49:06 Acute cholecystitis 49339879 K81.0 Initially attempted supportive treatment with IV [...] prophylaxi s.Pt follows with Dr. Olson at [facility] as OP, last seen in Jan 2024. Daughter plans to schedule f/u appointmen t after d/c from [facility]. Pneumonia caused by SARS-CoV-2 7492114095 40729213 J12.82 Dx with covid-19 on 03/30, dx with pneumonia on 04/08.Treate d OP with PO antibiotic s, steroids, and cough medication s.Symptoms had resolved by 04/28.Jc nue Duonebs to PRN Retention of urine 52030 4002 R33.9 Failed voiding trial on 05/10. As such, she was transferre d to our facility with a valle catheter. Reattempte d with Flomax on 05/14 and has been successful ly voiding. Flomax has been stopped.Mo nitor for recurrence . Pressure i njury of buttock 484289970 L89.309 Developed in April 2023 during COVID-19 pneumonia. Continue to offload pressure and treat with foam dressing daily.Woun d care to follow in-house. Herpes labialis 8645345 B00.1 Healed with Abreva. Essential hypertension 43923964 I10 Stable at present. OP Losartan & HCTZ were discontinu ed. Pt has been started on Metoprolol for rate-contr ol of Afib.Jc nue to trend blood pressures, monitor lytes and renal function, and adjust meds as clinically indicated. Hyperlipidemia 31882210 E78.5 Presumed stable. Continue Atorvastat in. Coronary arteriosclerosis 10815113 I25.[address] OP [address] Olson at [facility]. Takes PRN NTG as OP for stable angina about 1x/week. RADHA while inpatient was mostly unremarkab le = LV systolic function normal, EF 55-60%. Mildly increased LV wall thickness. RV systolic function normal. LA chamber dimension moderately enlarged. Mild tricuspid valve regurg.Sta ble at present without concerns. Continue Metoprolol , Ranexa, & PRN NTG.F/U with cards as OP. Stable angina 883042029 I20.89 SEE ABOVE... Hypothyroidism 87250516 E03.9 Presumed stable. Continue Levothyrox ine. Osteoarthritis 055600389 M19.90 Stable. Continue PRN APAP. Dysphagia 07544355 R13.1 0 Some concerns while inpatient. Per daughter, MBS was un-concern ing.She has been discharged on mechanical soft diet with thin liquids.ST to follow. Gastroesop hageal reflux disease without esophagitis 310624771 K21.9 Stable. Continue Omeprazole and PRN Zofran. Migraine 57004984 G43.90 9 Per daughter, with aura of spotty vision.Sta ble. Continue Amitriptyl ine at bedtime. Prediabetes 256145742 R7 3.03 Details unclear. Continue to monitor blood sugars on bloodwork. Allergic rhinitis 705489 04 J30.9 Per history. Not presently on medication s. Monitor. Disorder o f vitamin B12 394846486 E53.8 Presumed stable. Continue supplement . Vitamin D deficiency 347 52460 E55.9 Per history. Not on supplement . Physical deconditioning 3358792195 9102 R68.89 Related to age, recent inpatient stay, and multiple comorbidit ies. Continue PT/OT/ST and monitor progress. Goal is for pt to return home with daughter. Continue PRN cathartics for constipati on per standing orders. [id number] May Carrillo NP [facility] [address] [place] [address] 05/25/2024 12:43:05 06/08/2024 21:37:29 Lumbar spondylosis 666714570 M47.896 Increase routine APAP to 1000 mg TID.Increa se PRN Cyclobenza clay to 10 mg q8hrs PRN. Monitor for drowsiness (pt denies thus far).Add Lidocaine patch daily.If no improvemen t, may need to advance to PRN Tramadol.I f pain does not improve or worsens, will check Thoracic & Lumbar XRs. 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 Olson at [facility] as OP, last seen in Jan 2024. Daughter plans to schedule f/u appointmen t after d/c from . Pneumonia caused by SARS-CoV-2 9613521782 27367590 J12.82 Dx with covid-19 on 03/30, dx with pneumonia on 04/08.Treate d OP with PO antibiotic s, steroids, and cough medication s.Symptoms had resolved by 04/28.Jc nue Duonebs to PRN Retention of urine 12908 4002 R33.9 Failed voiding trial on 05/10. As such, she was transferre d to our facility with a valle catheter. Reattempte d with Flomax on 05/14 and has been successful ly voiding. Flomax has been stopped.Mo nitor for recurrence . Pressure i njury of buttock 746666317 L89.309 Developed in April 2023 during COVID-19 pneumonia. Continue to offload pressure and treat with foam dressing daily.Woun d care to follow in-house. Herpes labialis 5307610 B00.1 Healed with Abreva. Essential hypertension 65313054 I10 Stable at present. OP Losartan & HCTZ were discontinu ed. Pt has been started on Metoprolol for rate-contr ol of Afib.Jc nue to trend blood pressures, monitor lytes and renal function, and adjust meds as clinically indicated. Hyperlipidemia 45462119 E78.5 Presumed stable. Continue Atorvastat in. Coronary arteriosclerosis 79670670 I25.10 [address] OP [address] Olson at [facility]. Takes PRN NTG as OP for stable angina about 1x/week. RADHA while inpatient was mostly unremarkab le = LV systolic function normal, EF 55-60%. Mildly increased LV wall thickness. RV systolic function normal. LA chamber dimension moderately enlarged. Mild tricuspid valve regurg.Sta ble at present without concerns. Continue Metoprolol , Ranexa, & PRN NTG.F/U with cards as OP. Stable angina 937987268 I20.89 SEE ABOVE... Hypothyroidism 27453074 E03.9 Presumed stable. Continue Levothyrox ine. Osteoarthritis 133420925 M19.90 Stable. Continue PRN APAP. Dysphagia 84182656 R13.1 0 Some concerns while inpatient. Per daughter, MBS was un-concern ing.She has been discharged on mechanical soft diet with thin liquids.ST to follow. Gastroesop hageal reflux disease without esophagitis 148053369 K21.9 Stable. Continue Omeprazole and PRN Zofran. Migraine 87819413 G43.90 9 Per daughter, with aura of spotty vision.Sta ble. Continue Amitriptyl ine at bedtime. Prediabetes 329567773 R7 3.03 Details unclear. Continue to monitor blood sugars on bloodwork. Allergic rhinitis 329078 04 J30.9 Per history. Not presently on medication s. Monitor. Disorder o f vitamin B12 105148641 E53.8 Presumed stable. Continue supplement . Vitamin D deficiency 347 30436 E55.9 Per history. Not on supplement . Physical deconditioning 6498504483 9102 R68.89 Related to age, recent inpatient stay, and multiple comorbidit ies. Continue PT/OT/ST and monitor progress. Goal is for pt to return home with daughter. Continue PRN cathartics for constipati on per standing orders. [id number] May Carrillo NP [address] [place] [address] 05/27/2024 13:50:28 06/08/2024 21:38:11 Lumbar spondylosis 202299820 M47.896 Continue routine APAP to 1000 mg TID, Lidocaine patch, and schedule Cyclobenza clay qAM before therapy. Continue PRN dosing, as well. Monitor for drowsiness (pt denies thus far).Obtai n Lumbar Spine XR.If no improvemen t, may need to advance to PRN Tramadol. Burst frac ture of lumbar vertebra 703139246 S32.021S Old, noted on imaging incidental ly while inpatient. Jodi believes this occurred prior to Mar 2023.SEE ABOVE... Acute cholecystitis 2318 5000 K81.0 Initially attempted supportive treatment with IV [...] prophylaxi s.Pt follows with Dr. Olson at [facility] as OP, last seen in Jan 2024. Daughter plans to schedule f/u appointmen t after d/c from [facility]. Pneumonia caused by SARS-CoV-2 1999324350 27351545 J12.82 Dx with covid-19 on 03/30, dx with pneumonia on 04/08.Treate d OP with PO antibiotic s, steroids, and cough medication s.Symptoms had resolved by 04/28.Jc corona Duonebs to PRN Retention of urine 52200 4002 R33.9 Failed voiding trial on 05/10. As such, she was transferre d to our facility with a valle catheter. Reattempte d with Flomax on 05/14 and has been successful ly voiding. Flomax has been stopped.Mo nitor for recurrence . Pressure i njury of buttock 325396817 L89.309 Developed in April 2023 during COVID-19 pneumonia. Continue to offload pressure and treat with foam dressing daily.Woun d care to follow in-house. Essential hypertension 16910576 I10 Stable at present. OP Losartan & HCTZ were discontinu ed. Pt has been started on Metoprolol for rate-contr ol of Afib.Jc corona to trend blood pressures, monitor lytes and renal function, and adjust meds as clinically indicated. Hyperlipidemia 92147903 E78.5 Presumed stable. Continue Atorvastat in. Coronary arteriosclerosis 75858998 I25.10 Follow[address] OP [address] Dr. Olson at [facility]. Takes PRN NTG as OP for stable angina about 1x/week. RADHA while inpatient was mostly unremarkab le = LV systolic function normal, EF 55-60%. Mildly increased LV wall thickness. RV systolic function normal. LA chamber dimension moderately enlarged. Mild tricuspid valve regurg.Sta ble at present without concerns. Continue Metoprolol , Ranexa, & PRN NTG.F/U with cards as OP. Stable angina 525502969 I20.89 SEE ABOVE... Hypothyroidism 24177044 E03.9 Presumed stable. Continue Levothyrox ine. Osteoarthritis 189474660 M19.90 Stable. Continue PRN APAP. Dysphagia 83191474 R13.1 0 Some concerns while inpatient. Per daughter, MBS was un-concern ing.She has been discharged on mechanical soft diet with thin liquids.ST to follow. Gastroesop hageal reflux disease without esophagitis 152820659 K21.9 Stable. Continue Omeprazole and PRN Zofran. Migraine 76693677 G43.90 9 Per daughter, with aura of spotty vision.Sta ble. Continue Amitriptyl ine at bedtime. Prediabetes 641323102 R7 3.03 Details unclear. Continue to monitor blood sugars on bloodwork. Allergic rhinitis 527696 04 J30.9 Per history. Not presently on medication s. Monitor. Disorder o f vitamin B12 250749202 E53.8 Presumed stable. Continue supplement . Vitamin D deficiency 347 36891 E55.9 Per history. Not on supplement . Herpes labialis 7446252 B00.1 Healed with Abreva. Physical deconditioning 3072221728 9102 R68.89 Related to age, recent inpatient stay, and multiple comorbidit ies. Continue PT/OT/ST and monitor progress. Goal is for pt to return home with daughter. Continue PRN cathartics for constipati on per standing orders. Hypokalemia 20094623 E87 .6 Give KCl 40 meq x 1 dose. Lung field abnormal 2747 45389 R91.8 Obtain CXR.Respir atory status is stable.Mon itor closely. [id number] May Carrillo NP [address] [place] [address] 05/29/2024 17:15:58 05/30/2024 13:33:41 Lumbar spondylosis 456192686 M47.896 Pt has known compressio n fracture [...] days (06/11).Ref er to pain management at [facility]. Burst frac ture of lumbar vertebra 302529110 S32.021S Old, noted on imaging incidental ly [...] prophylaxi s.Pt follows with Dr. Olson at [facility] as OP, last seen in Jan 2024. Daughter plans to schedule f/u appointmen t after d/c from [facility]. Pneumonia caused by SARS-CoV-2 [id number] 76907749 J12.82 Dx with covid-19 on 03/30, dx with pneumonia on 04/08.Treate d OP with PO antibiotic s, steroids, and cough medication s.Symptoms had resolved by 04/28.Jc nue Duonebs to PRN Retention of urine 62776 4002 R33.9 Failed voiding trial on 05/10. As such, she was transferre d to our facility with a valle catheter. Reattempte d voiding trial with Flomax on 05/14 and has been successful ly voiding. Flomax has been stopped.Mo julitoor for recurrence . Pressure i njury of buttock 660067921 L89.309 Developed in April 2023 during COVID-19 pneumonia. Continue to offload pressure and treat with foam dressing daily.Woun d care to follow in-house. Essential hypertension 98574763 I10 Stable at present. OP Losartan & HCTZ were discontinu ed. Pt has been started on Metoprolol for rate-contr ol of Afib.Jc nue to trend blood pressures, monitor lytes and renal function, and adjust meds as clinically indicated. Hyperlipidemia 81738233 E78.5 Presumed stable. Continue Atorvastat in. Coronary arteriosclerosis 55981483 I25.[address] Follow[address] OP [address] Olson at [facility]. Takes PRN NTG as OP for stable angina about 1x/week. RADHA while inpatient was mostly unremarkab le = LV systolic function normal, EF 55-60%. Mildly increased LV wall thickness. RV systolic function normal. LA chamber dimension moderately enlarged. Mild tricuspid valve regurg.Sta ble at present without concerns. Continue Metoprolol , Ranexa, & PRN NTG.F/U with cards as OP. Stable angina 971438397 I20.89 SEE ABOVE... Hypothyroidism 82556039 E03.9 Presumed stable. Continue Levothyrox ine. Osteoarthritis 211593296 M19.90 Stable. Continue PRN APAP. Dysphagia 32272169 R13.1 0 Some concerns while inpatient. Per daughter, MBS was un-concern ing.She has been discharged on mechanical soft diet with thin liquids.ST to follow. Gastroesop hageal reflux disease without esophagitis 041352014 K21.9 Stable. Continue Omeprazole and PRN Zofran. Migraine 37750063 G43.90 9 Per daughter, with aura of spotty vision.Sta ble. Continue Amitriptyl ine at bedtime. Prediabetes 627210614 R7 3.03 Details unclear. Continue to monitor blood sugars on bloodwork. BS 90 & 101 thus far. Allergic rhinitis 729910 04 J30.9 Per history. Not presently on medication s. Monitor. Disorder o f vitamin B12 525155639 E53.8 Presumed stable. Continue supplement . Vitamin D deficiency 347 88314 E55.9 Per history. Not on supplement . Herpes labialis 6389010 B00.1 Healed with Abreva. Physical deconditioning 0676609796 9102 R68.89 Related to age, recent inpatient stay, and multiple comorbidit ies. Continue PT/OT/ST and monitor progress. Goal is for pt to return home with daughter. Continue PRN cathartics for constipati on per standing orders. Edema of l ower extremity 103315333 R60.0 Lasix 40 mg daily x 3 days.KCl 20 meq daily x 3 days.Jc nue BLE rebeca wraps on AM off PM. Encourage elevation of BLE when at rest.Labs on 06/01. [id number] Diana Poe, [address] [address] 05/31/2024 16:34:55 06/03/2024 06:40:33 Acute urinary tract infection 408864671 N39.0 the patient was treated with IV [...] clinically appropriat e Altered mental status 41 6273482 R41.82 suspect related to aboveavoid sedating meds - pain meds and muscle relaxants have been discontinu ed Lumbar spondylosis 57663 0009 M47.896 Pt has known compressio n [...] has been made to pain management at [facility]. Burst frac ture of lumbar vertebra 779830941 S32.021S Old, noted on imaging incidental ly [...] prophylaxi s.Pt follows with Dr. Olson at [facility] as OP, last seen in Jan 2024. Daughter plans to schedule f/u appointmen t after d/c from [facility]. Pneumonia caused by SARS-CoV-2 6809765294 19992258 J12.82 Dx with covid-19 on 03/30, dx with pneumonia on 04/08.Treate d OP with PO antibiotic s, steroids, and cough medication s.Symptoms had resolved by 04/28.She has had the need for supplement al O2 over the recent daysCXR done 05/27 was concerning for possible RLL infiltrate - need to get imaging studies done at [place] [facility] yesterday to see if CT included chest or if repeat CXR was done. If not, might consider repeat here.Jc nue Duonebs to PRN Retention of urine 01347 4002 R33.9 Failed voiding trial on 05/10. As such, she was transferre d to our facility with a valle catheter. Reattempte d voiding trial with Flomax on 05/14 and she had been successful ly voiding.Sh doni has had retention again over the recent days with dark/foamy urine and +UA in the ER yesterdayc ontinue valle catheter for now [id number] May Carrillo, EVONNE [address] [address] 06/01/2024 13:40:54 06/03/2024 09:50:28 Altered mental status 768504653 R41.82 Improved. Suspected sec to acute cholecysti tis recurrence .SEE ABOVE... Lumbar spondylosis 23814 0009 M47.896 Pt has known compressio n [...] has been made to pain management at [facility]. Burst frac ture of lumbar vertebra 865471522 S32.021S Old, noted on imaging incidental ly [...] prophylaxi s.Pt follows with Dr. Olson at [facility] as OP, last seen in Jan 2024. Daughter plans to schedule f/u appointmen t after d/c from [facility]. Pneumonia caused by SARS-CoV-2 6170301041 16631223 J12.82 Dx with covid-19 on 03/30, dx with pneumonia on 04/08.Treate d OP with PO antibiotic s, steroids, and cough medication s.Symptoms had resolved by 04/28.She has had the need for supplement al O2 over the recent daysContin ue Duonebs to PRN.SEE ABOVE... Retention of urine 08349 4002 R33.9 Failed voiding trial on 05/10. As such, she was transferre d to our facility with a valle catheter. Reattempte d voiding trial with Flomax on 05/14 and she had been successful ly voiding but she unfortunaannabelle vasquez had recurrence of retention on 05/30, so catheter was replaced.C ontinue catheter care and have restarted Flomax.SEE ABOVE... Asymptomat ic bacteriuria 012658775 R82.71 Patient was treated with IV Rocephin in the ER on 05/30.Contin ues on Augmentin but this for acute cholecysti tis.UA done here on 06/01 (after IV antibiotic dose) did not meet criteria for reflex.Sti ll waiting on urine culture results from [facility] from 05/30. Edema of l ower extremity 666881032 R60.0 Continue BLE rebeca wraps on AM off PM. Encourage elevation of BLE when at rest.Trend labs. Pressure i njury of buttock 819700776 L89.309 Developed in April 2023 during COVID-19 pneumonia. Continue to offload pressure and treat with foam dressing daily.Woun d care to follow in-house. Essential hypertension 33456775 I10 Stable at present. OP Losartan & HCTZ were discontinu ed. Pt has been started on Metoprolol for rate-contr ol of Afib.Jc nue to trend blood pressures, monitor lytes and renal function, and adjust meds as clinically indicated. Hyperlipidemia 70531056 E78.5 Presumed stable. Continue Atorvastat in. Coronary arteriosclerosis 04053146 I25.[address] Follow[address] OP [address] Olson at [facility]. Takes PRN NTG as OP for stable angina about 1x/week. RADHA while inpatient was mostly unremarkab le = LV systolic function normal, EF 55-60%. Mildly increased LV wall thickness. RV systolic function normal. LA chamber dimension moderately enlarged. Mild tricuspid valve regurg.Sta ble at present without concerns. Continue Metoprolol , Ranexa, & PRN NTG.F/U with cards as OP. Stable angina 396592031 I20.89 SEE ABOVE... Hypothyroidism 84739432 E03.9 Presumed stable. Continue Levothyrox ine. Osteoarthritis 969096412 M19.90 Stable. Continue PRN APAP. Dysphagia 67912566 R13.1 0 Some concerns while inpatient. Per daughter, MBS was un-concern ing.She has been discharged on mechanical soft diet with thin liquids.ST to follow. Gastroesop hageal reflux disease without esophagitis 946160561 K21.9 Stable. Continue Omeprazole and PRN Zofran. Migraine 61705250 G43.90 9 Per daughter, with aura of spotty vision.Sta ble. Continue Amitriptyl ine at bedtime, dose reduced to 20 mg qhs. Prediabetes 827118614 R7 3.03 Details unclear. Continue to monitor blood sugars on bloodwork. BS 90-100s thus far. Allergic rhinitis 866311 04 J30.9 Per history. Not presently on medication s. Monitor. Disorder o f vitamin B12 206202505 E53.8 Presumed stable. Continue supplement . Vitamin D deficiency 347 83003 E55.9 Per history. Not on supplement . Herpes labialis 9216051 B00.1 Healed with Abreva. Physical deconditioning 6784671694 9102 R68.89 Related to age, recent inpatient stay, and multiple comorbidit ies. Continue PT/OT/ST and monitor progress. Goal is for pt to return home with daughter. Continue PRN cathartics for constipati on per standing orders. Imaging of lung abnormal 894735648 R91.8 05/27 CXR on 05/27 done for [...] stable on RA.Continu e Augmentin as above. [id number] May Carrillo NP [address] [place] [address] 06/03/2024 12:08:20 06/08/2024 21:39:14 Acute cholecystitis 70340929 K81.0 Initially attempted supportive treatment with IV [...] 05/26 with NNO. Imaging of lung abnormal 651142855 R91.8 05/27 CXR on 05/27 done for [...] e Augmentin as above. Asymptomat ic bacteriuria 909412948 R82.71 Patient was treated with IV Rocephin in the ER on 05/30.Contin ues on Augmentin but this for acute cholecysti tis.UA done here on 06/01 (after IV antibiotic dose) did not meet criteria for reflex.Sti ll waiting on urine culture results from [facility] from 05/30. Lumbar spondylosis 78252 0009 M47.896 Pt has known compressio n [...] has been made to pain management at [facility]. Burst frac ture of lumbar vertebra 955735198 S32.021S Old, noted on imaging incidental ly while inpatient. Jodi believes this occurred prior to Mar 2023.SEE ABOVE... Altered mental status 41 7328373 R41.82 Improved. Suspected sec to acute cholecysti tis recurrence .SEE ABOVE... Atrial fibrillation 4943 6004 I48.91 New-onset while inpatient. Tx with IV heparin & Dilt, spontaneou sly converted. Transition ed to Eliqu & Metoprolol by discharge. Continue Metoprolol for rate-contr ol.Continu e Eliquis for VTE prophylaxi s.Pt follows with Dr. Olson at [facility] as OP, last seen in Jan 2024. Daughter plans to schedule f/u appointmen t after d/c from . Retention of urine 04959 4002 R33.9 Failed voiding trial on 05/10. As such, she was transferre d to our facility with a valle catheter. Reattempte d voiding trial with Flomax on 05/14 and she had been successful ly voiding but she unfortunaannabelle vasquez had recurrence of retention on 05/30, so catheter was replaced.C ontinue catheter care and have restarted Flomax.SEE ABOVE... Edema of l ower extremity 455687486 R60.0 Continue BLE rebeca wraps on AM off PM. Encourage elevation of BLE when at rest.Trend labs. Pressure i njury of buttock 035902984 L89.309 Developed in April 2023 during COVID-19 pneumonia. Continue to offload pressure and treat with foam dressing daily.Woun d care to follow in-house. Essential hypertension 08796292 I10 Stable at present. OP Losartan & HCTZ were discontinu ed. Pt has been started on Metoprolol for rate-contr ol of Afib.Jc nue to trend blood pressures, monitor lytes and renal function, and adjust meds as clinically indicated. Hyperlipidemia 90894946 E78.5 Presumed stable. Continue Atorvastat in. Coronary arteriosclerosis 49183567 I25.[address] Follow[address] OP [address] Olson at [facility]. Takes PRN NTG as OP for stable angina about 1x/week. RADHA while inpatient was mostly unremarkab le = LV systolic function normal, EF 55-60%. Mildly increased LV wall thickness. RV systolic function normal. LA chamber dimension moderately enlarged. Mild tricuspid valve regurg.Sta ble at present without concerns. Continue Metoprolol , Ranexa, & PRN NTG.F/U with cards as OP. Stable angina 732602765 I20.89 SEE ABOVE... Hypothyroidism 12101919 E03.9 Presumed stable. Continue Levothyrox ine. Osteoarthritis 626149951 M19.90 Stable. Continue PRN APAP. Dysphagia 56304312 R13.1 0 Some concerns while inpatient. Per daughter, MBS was unconcerni ng.She has been discharged on mechanical soft diet with thin liquids.ST to follow. Gastroesop hageal reflux disease without esophagitis 113088855 K21.9 Stable. Continue Omeprazole and PRN Zofran. Migraine 38842032 G43.90 9 Per daughter, with aura of spotty vision.Sta ble. Continue Amitriptyl ine at bedtime, dose reduced to 20 mg qhs. Prediabetes 013113711 R7 3.03 Details unclear. Continue to monitor blood sugars on bloodwork. BS 90-100s thus far. Allergic rhinitis 418994 04 J30.9 Per history. Not presently on medication s. Monitor. Disorder o f vitamin B12 565954233 E53.8 Presumed stable. Continue supplement . Vitamin D deficiency 347 60361 E55.9 Per history. Not on supplement . Herpes labialis 6985788 B00.1 Healed with Abreva. Pneumonia caused by SARS-CoV-2 3584015061 19199721 J12.82 Dx with covid-19 on 03/30, dx with pneumonia on 04/08.Treate d OP with PO antibiotic s, steroids, and cough medication s.Symptoms had resolved by 04/28.She has had the need for supplement al O2 over the recent daysContin ue Duonebs to PRN.SEE ABOVE... Physical deconditioning 5163838901 9102 R68.89 Related to age, recent inpatient stay, and multiple comorbidit ies. Continue PT/OT/ST and monitor progress. Goal is for pt to return home with daughter. Continue PRN cathartics for constipati on per standing orders. [id number] May Carrillo NP [address] [address] [place] [address] 06/08/2024 10:22:03 06/08/2024 17:21:07 Acute cholecystitis 85094457 K81.0 Initially attempted supportive treatment with IV [...] 05/26 with NNO. Imaging of lung abnormal 813958680 R91.8 05/27 CXR on 05/27 done for [...] e Augmentin as above. Asymptomat ic bacteriuria 877705151 R82.71 Patient was treated with IV Rocephin in the ER on 05/30.Contin ues on Augmentin but this for acute cholecysti tis.UA done here on 06/01 (after IV antibiotic dose) did not meet criteria for reflex.Uri ne culture results from [facility] from 05/30 only grew 10-49,0000 nakita albicans. Lumbar spondylosis 96361 0006 M47.896 Pt has known compressio n fracture [...] has been made to pain management at [facility]. Burst frac ture of lumbar vertebra 356208380 S32.021S SEE ABOVE... Altered mental status 41 6510053 R41.82 Improved. Suspected sec to acute cholecysti tis recurrence .SEE ABOVE... Atrial fibrillation 4943 6004 I48.91 New-onset while inpatient. Tx with IV heparin & Dilt, spontaneou sly converted. Transition ed to Eliquis & Metoprolol by discharge. Continue Metoprolol for rate-contr ol.Continu e Eliquis for VTE prophylaxi s.Pt follows with Dr. Olson at [facility] as OP, last seen in Jan 2024. Daughter plans to schedule f/u appointmen t after d/c from . Retention of urine 74704 4002 R33.9 Failed voiding trial on 05/10. [...] today.SEE ABOVE... Edema of l ower extremity 289553886 R60.0 Continue BLE rebeca wraps on AM off PM. Encourage elevation of BLE when at rest.Trend labs. Pressure i njury of buttock 109855808 L89.309 Developed in April 2023 during COVID-19 pneumonia. Continue to offload pressure and treat with foam dressing daily.Woun d care to follow in-house. Essential hypertension 04957779 I10 Stable at present. OP Losartan & HCTZ were discontinu ed. Pt has been started on Metoprolol for rate-contr ol of Afib.Jc nue to trend blood pressures, monitor lytes and renal function, and adjust meds as clinically indicated. Hyperlipidemia 14536156 E78.5 Presumed stable. Continue Atorvastat in. Coronary arteriosclerosis 68473081 I25.10 Follow[address] OP [address] Olson at [facility]. Takes PRN NTG as OP for stable angina about 1x/week. RADHA while inpatient was mostly unremarkab le = LV systolic function normal, EF 55-60%. Mildly increased LV wall thickness. RV systolic function normal. LA chamber dimension moderately enlarged. Mild tricuspid valve regurg.Sta ble at present without concerns. Continue Metoprolol , Ranexa, & PRN NTG.F/U with cards as OP. Stable angina 640637104 I20.89 SEE ABOVE... Hypothyroidism 98121376 E03.9 Presumed stable. Continue Levothyrox ine. Osteoarthritis 981675515 M19.90 Stable. Continue PRN APAP. Dysphagia 20805740 R13.1 0 Some concerns while inpatient. Per daughter, MBS was unconcerni ng.She has been discharged on mechanical soft diet with thin liquids.ST to follow. Gastroesop hageal reflux disease without esophagitis 992770938 K21.9 Stable. Continue Omeprazole and PRN Zofran. Migraine 89303173 G43.90 9 Per daughter, with aura of spotty vision.Sta ble. Continue Amitriptyl ine at bedtime, dose reduced to 20 mg qhs. Prediabetes 682242040 R7 3.03 Details unclear. Continue to monitor blood sugars on bloodwork. BS 90-100s thus far. Allergic rhinitis 944539 04 J30.9 Per history. Not presently on medication s. Monitor. Disorder o f vitamin B12 118617641 E53.8 Presumed stable. Continue supplement . Vitamin D deficiency 347 65741 E55.9 Per history. Not on supplement . Herpes labialis 3705412 B00.1 Healed with Abreva. Pneumonia caused by SARS-CoV-2 3074215463 09740369 J12.82 Dx with covid-19 on 03/30, dx with pneumonia on 04/08.Treate d OP with PO antibiotic s, steroids, and cough medication s.Symptoms had resolved by 04/28.She has had the need for supplement al O2 over the recent daysContin ue Duonebs to PRN.SEE ABOVE... Physical deconditioning 9540285536 9102 R68.89 Related to age, recent inpatient stay, and multiple comorbidit ies. Continue PT/OT/ST and monitor progress. Goal is for pt to return home with daughter. Continue PRN cathartics for constipati on per standing orders. Health Concerns Section Related Observation LastModified by Organization Detai ls LastModified Time None Recorded Concern Status LastModified by Organization Details LastModified Time None Recorded Advance Directives Directive None Recorded Payers Encounter Date Sequence Insurance Name Policy Number Policy Bartholomew Covered Member ID [id number] Member ID Guarantor Name 05/29/2024 1 MEDICARE [place]: [place]PS Maude Milton [id number] Maude Milton 05/29/2024 2 [employer] OPTIONS (MEDICARE SUPPLEMENT) Maude Milton [id number] Maude Milton 05/31/2024 1 MEDICARE [place]: [place]PS Maude Milton [id number] Maude Milton 05/31/2024 2 [employer] OPTIONS (MEDICARE SUPPLEMENT) Maude Milton [id number] Maude Milton 06/01/2024 1 MEDICARE [place]: [place] Maude Milton [id number] Maude Milton 06/01/2024 2 [employer] OPTIONS (MEDICARE SUPPLEMENT) Maude Milton [id number] Maude Milton 06/03/2024 1 MEDICARE [place]: [place] Maude Milton [id number] Maude Milton 06/03/2024 2 [employer] OPTIONS (MEDICARE SUPPLEMENT) Maude Milton [id number] Maude Milton 06/08/2024 1 MEDICARE [place]: [place]PS Maude Milton [id number] Maude Milton 06/08/2024 2 [facility] OPTIONS (MEDICARE SUPPLEMENT) Maude Milton [id number] Maude Milton Notes Date Note Type Note Provider Name and Address Organization Details Recorded Time 05/29/2024 text/html F/U acute cholecystitis, new diagnosis Afib, urine retention, recent COVID-19 pneumonia, weakness, and chronic medical conditions. --- 05/12/24 Maude is drowsy today -- she will [...] reports this dressing is to be changed [id number] per the surgeon, rather than the daily [...] concerns. VSS. Staff is without concerns, as well. --- 05/14/24 The patient is sitting up in her W/C [...] draining a small amount of light brown fluid. --- 05/19/24 Maude is alert, seated at the dining table, [...] transfers requiring CGA-Dave for safety and sequencing --- 05/25/24 Maude is seated in her recliner, a [...] VSS. Staff does not offer any concerns today. --- 05/27/24 Maude is seated in her w/c in her [...] sit to stand to FWW requiring CGA --- 05/29/24 Maude is seated in her wheelchair in the [facility] area, her daughter Jodi by her side. [...] (cueing for hand placement, safety and sequencing). May Carrillo, EVONNE [address] [facility], [place], [address], [facility] 05/30/2024 13:33:38 05/31/2024 text/html f/u with the eulogio zurita today after an ER visit at [facility] 05/30 due to increased lethargy, hypoxia requiring [...] and hypoxia/concern for possible right lung basilar infiltrate. The patient is lying in bed this afternoon, somnolent, confused from baseline and weak. Her daughter, Jodi, is at the bedside and her POA/daughter, Anjelica, is on the phone. We discuss her recent clinical decline, ER visit and orders/plan of care. The patient was, unfortunately, sent back from [place] without appropriate records - nursing is trying [...] dark luis colored urine. [place] [address] [facility], [place], [address], [facility] 06/03/2024 06:40:28 06/01/2024 text/html F/U acute cholecystitis, new diagnosis Afib, urine retention, recent COVID-19 pneumonia, weakness, and chronic medical conditions. --- 05/12/24 Maude is drowsy today -- she will [...] reports this dressing is to be changed [id number] per the surgeon, rather than the daily [...] concerns. VSS. Staff is without concerns, as well. --- 05/14/24 The patient is sitting up in her W/C [...] draining a small amount of light brown fluid. --- 05/19/24 Maude is alert, seated at the dining table, [...] transfers requiring CGA-Dave for safety and sequencing --- 05/25/24 Maude is seated in her recliner, a [...] VSS. Staff does not offer any concerns today. --- 05/27/24 Maude is seated in her w/c in her [...] sit to stand to FWW requiring CGA --- 05/29/24 Maude is seated in her wheelchair in the [...] (cueing for hand placement, safety and sequencing). ---3/2/2 5f/u with the patient today after an ER visit at [facility] 05/30 due to increased lethargy, hypoxia requiring [...] The patient was, unfortunately, sent back from [place] without appropriate records - nursing is trying [...] dark luis colored urine. Vitals have been stable.---06/01/24Maude is seated in her w/c in her [...] We do not have full records from [place] yet but Anjelica does confirm that a [...] UB dressing with CGA, toileting with MOD. May Carrillo, EVONNE [address] [place], [address], [facility] [place] [facility] 06/03/2024 09:50:25 06/03/2024 text/html F/U acute cholecystitis, new diagnosis Afib, urine retention, recent COVID-19 pneumonia, weakness, and chronic [...] reports this dressing is to be changed [id number] per the surgeon, rather than the daily [...] patient today after an ER visit at [facility] 05/30 due to increased lethargy, hypoxia requiring [...] The patient was, unfortunately, sent back from [place] without appropriate records - nursing is trying [...] We do not have full records from [place] yet but Anjelica does confirm that a [...] (cueing for hand placement, safety and sequencing). GRaded therapeutic self-care retraining as follows: Bed mobility supine to sit EOB with MAX, LB dressing with MAX, UB dressing with MOD. Patient reports pain in lower back 01/08 impacting self-care tasks May Carrillo, DAIRY PROCESSING EQUIPMENT OPERATOR [address] [facility], [place], [address], [facility] 06/03/2024 16:06:29 06/08/2024 text/html F/U acute cholecystitis, T12 (new?) [...] reports this dressing is to be changed [id number] per the surgeon, rather than the daily [...] on level surfaces with a FWW, requiring Daev. Patient required cueing for upright posture and [...] VSS. Staff does not offer any concerns today.---05/27/24Pedamon is seated in her w/c in her [...] sit to stand to FWW requiring CGA ---05/29/24Maude is seated in her wheelchair in the [...] (cueing for hand placement, safety and sequencing). ---3/2/2 5f/u with the patient today after an ER visit at [facility] 05/30 due to increased lethargy, hypoxia requiring [...] The patient was, unfortunately, sent back from [place] without appropriate records - nursing is trying [...] dark luis colored urine. Vitals have been stable.---06/01/24Maude is seated in her w/c in her [...] We do not have full records from [place] yet but Anjelica does confirm that a [...] UB dressing with CGA, toileting with MOD. ---06/03/24Peggy is seated in her w/c in her [...] in lower back 01/08 impacting self-care tasks ---06/08/24Peggjennifer is resting in bed, complains of dysuria [...] increased time and cues. May Carrillo, EVONNE [address] [facility], [place], [address], [place] [facility] 06/08/2024 17:21:03 OBGyn Episode No OBEpisode recorded.
== END 2024-06-09 08:26 | disposition home or self-care (01) ==
PROVIDERS: PCP Family Medicine; Visit Provider Surgery
DX: K81.0 Acute cholecystitis (principal)
CPT/HCPCS: 47531; Q9966

== ENCOUNTER 2024-06-12 19:06 | Inpatient (IN) | payer MEDICARE, SELFPAY ==
--- NOTE | ~2024-06-12 | XR_ITS ---
XR chest 1V portable Ordering provider: Nae Morel MD History: 84 years Female with . new oxygen need . Comparison: June 13, 2024 FINDINGS: MEDIASTINUM: The cardiac silhouette is slightly enlarged. LUNGS: No pneumothorax. Bilateral basilar atelectasis versus pneumonia with bilateral pleural effusio n. OTHER: No free air under the diaphragm. Degenerative changes of the spine. IMPRESSION: Bilateral basilar atelectasis versus pneumonia with bilateral pleural effusion. Reviewed, dictated and finalized at location A.
--- NOTE | ~2024-06-12 | CT_ITS ---
CT abdomen pelvis w con Ordering provider: Boo Elias MD History: 84 years Female with . Confusion, recent hx of cholecystitis w/ drain . Comparison: None. Technique: CT abdomen and pelvis with IV and without oral contrast. Automated exposure control and it erative reconstruction technique were employed. The dose-length product was 1080.74 mGy-cm. 100 mL Om nipaque 350 was given IV. Findings: VISUALIZED LOWER CHEST: Dependent atelectatic changes. Cardiomegaly. Trace of pericardial effusion. UPPER ABDOMINAL ORGANS: Liver: Normal. Gallbladder: The tubes seen previously in the gallbladder is outside the gallbladder. Septation and s ludge is seen in the gallbladder. Surrounding fat stranding also noted. The gallbladder is compressin g the duodenum. Spleen: Normal. Stomach/duodenum: Normal. Pancreas: Normal. Adrenals: Normal. Kidneys: Small cyst in the left kidney upper pole. PELVIC ORGANS: The bladder shows a filling defect which may be a blood clot. BOWEL AND MESENTERY: Colon: No evidence of diverticulitis.. Appendix is not demonstrated. Small Bowel: Normal. No obstruct ion. Peritoneum/mesentery: No free air or free fluid. No mesenteric lymphadenopathy. RETROPERITONEUM: Mild atheromatous disease of the abdominal aorta. No retroperitoneal lymphadenopat hy. MUSCULOSKELETAL: Superficial soft tissues: The superficial soft tissues are normal. Bones: Old compression fracture involving T12 and L2 with increased compression of T12 compared to pr evious study suggestive of acute compression fracture. Compression in L2 is chronic. Age appropriate degenerative changes of the spine. Right hip arthroplasty. IMPRESSION: 1. Cholecystitis with cholecystostomy tube outside the gallbladder. 2. Filling defect in the urinary bladder suggestive of a clot. Clinical correlation advised. 3. Increased compression of T12 suggestive of acute fracture. Chronic fracture in L2. Reviewed, dictated and finalized at location A. IMPRESSION: 1. Cholecystitis with cholecystostomy tube outside the gallbladder. 2. Filling defect in the urinary bladder suggestive of a clot. Clinical correl ation advised. 3. Increased compression of T12 suggestive of acute fracture. Chronic fracture in L2.
--- NOTE | ~2024-06-12 | CT_ITS ---
EXAMINATION: CT guide absc cath placement DATE: 06/17/2024 10:25 INDICATION: Acute cholecystitis with displacement of the prior percutaneous cholecystostomy tube. TECHNIQUE: The procedure including the risks and benefits was discussed with the patient. Risks discu ssed included bleeding, infection, allergic reaction and bowel injury. The patient understood the ris ks and benefits and agreed to proceed. The patient was confirmed to be receiving appropriate antibiot ic coverage. The skin overlying the abdomen was prepped and draped in usual sterile fashion. Anesth etic was administered with 1% lidocaine subcutaneously. An 18-gauge trochar needle was advanced utili zing CT guidance into the lumen of the gallbladder. Inner stylette was removed and the J wire was adv anced through the needle with position of the wire within the lumen of the gallbladder confirmed with CT. Utilizing Seldinger technique the needle was removed over the wire and the tract serially dilate d to 10 Fr. A 10 Fr catheter was then inserted into the gallbladder lumen over the wire, the loop for med and locked with position confirmed by CT. 20 mL of opaque linton purulent appearing fluid was aspira ana maria and sent to the lab. The catheter was then attached to gravity drainage and was draining a small amount of additional thick, dark maroon-colored fluid at the conclusion of the procedure. The cathete r was stitched to the skin with suture. About equipment and a sterile dressing were applied. The prio r malpositioned catheter was removed and additional and about ointment and sterile dressing were appl ied to the catheter access site. There were no immediate complications. The dose-length product was 1 60.60 mGy-cm. FINDINGS: CT images demonstrate the catheter within the distended gallbladder. 20 mL fluid was aspira ana maria for testing. The second previously placed and dislodged cholecystostomy tube was removed at the c onclusion of the procedure. IMPRESSION: 1. Successful CT-guided percutaneous cholecystostomy tube placement. 2. 20 mL fluid was sent for aerobic and anaerobic cultures. 3. The catheter will be managed by Dr. Chester. A catheter cholangiogram may be performed not less than 48 hours after tube placement if clinically indicated to assess cystic duct patency. If cholecystecto my is not eventually performed and the infectious episode has resolved, the tube may be removed over a guidewire, preferably not less than 3 weeks after placement to allow time for a mature catheter tra ct to form to prevent bile leakage and peritonitis. Reviewed, dictated and finalized at location A. IMPRESSION: 1. Successful CT-guided percutaneous cholecystostomy tube placement. 2. 20 mL fluid was sent for aerobic and anaerobic cultures. 3. The catheter will be managed by Dr. Chester. A catheter cholangiogram may be pe rformed not less than 48 hours after tube placement if clinically indicated to assess cystic duct patency. If cholecystectomy is not eventually performed and the infectious episode has resolved, the tube may be removed over a guidewire, preferably not less than 3 weeks after placement to allow time for a mature cat heter tract to form to prevent bile leakage and peritonitis.
--- NOTE | ~2024-06-12 | US_ITS ---
EXAMINATION: US abdomen limited DATE: 06/16/2024 14:56 INDICATION: Acute cholecystitis with dislodged percutaneous cholecystostomy tube. TECHNIQUE: Multiple grayscale ultrasound images of the right upper quadrant the abdomen were obtained prior preparation for a planned cholecystostomy tube placement. What was likely the gallbladder was poorly visualized along with some adjacent bowel given the suboptimal visualization and 4 conference for definitive identification of the gallbladder the planned ultrasound guided cholecystostomy tube p lacement was deferred. Arrangements have been made to proceed. The following morning with CT-guided p ercutaneous cholecystostomy tube placement with conscious sedation. COMPARISON: CT dated 06/12/2024 and ultrasound dated 05/06/2024 FINDINGS: Approximately 7 x 3 cm hypoechoic region with central echogenicity located in expected region of the gallbladder fossa. There are some surrounding shadowing likely related to gas within adjacent loops o f bowel. IMPRESSION: 1. Poor visualization of what is likely the gallbladder and surrounding bowel and the planned ultraso und-guided percutaneous close ostomy tube placement was deferred with plan to attempt to placement in the morning with CT guidance and with conscious sedation. Reviewed, dictated and finalized at location A. IMPRESSION: 1. Poor visualization of what is likely the gallbladder and surrounding bowel a nd the planned ultrasound-guided percutaneous close ostomy tube placement was d eferred with plan to attempt to placement in the morning with CT guidance and w ith conscious sedation.
--- NOTE | ~2024-06-12 | CT_ITS ---
CTA brain carotid Ordering provider: Boo Elias MD History: . Lumad speech . Comparison: May 05, 2024 Technique: CT angiogram head and neck was performed following timed intravenous injection of contrast . Thin slice axial images and reformatted coronal images were obtained. Three dimensional reformatted images of the brain were also obtained using a [employer] workstation. Radiation reduction technique ut ilized.The dose-length product was 1828.5 mGy-cm. 200 mL Omnipaque 350 was given IV. FINDINGS: HEAD: --ANTERIOR AND MIDDLE CEREBRAL ARTERIES AND BRANCHES: Normal caliber and contour. --INTERNAL CAROTID ARTERIES: Mild atheromatous disease but no significant stenosis. No occlusion. --BASILAR ARTERY AND BRANCHES: Normal caliber and contour. No atheromatous disease. --POSTERIOR CEREBRAL ARTERIES: Normal caliber and contour --POSTERIOR COMMUNICATING ARTERIES: Not visualized which is probably related to congenital absence or small size. --ANEURYSM: None visualized. --BRAIN: Deep white matter ischemic changes with mild brain atrophy. --BONES AND SUPERFICIAL SOFT TISSUES: Normal. --PARANASAL SINUSES AND MASTOIDS: Well aerated. NECK: --RIGHT CERVICAL CAROTID SYSTEM: Mild atheromatous disease of the carotid bulb and proximal internal carotid artery without significant stenosis. Percent stenosis per NASCET criteria is 0%. No carotid dissection. Otherwise, no significant atheromatous disease or stenosis of the cervical carotid system . --LEFT CERVICAL CAROTID SYSTEM: Mild atheromatous disease of the carotid bulb and proximal internal c arotid artery without significant stenosis. Percent stenosis per NASCET criteria is 0%. No carotid d issection. Otherwise, no significant atheromatous disease or stenosis of the cervical carotid system. --VERTEBRAL ARTERIES: Dominant left vertebral artery. Normal caliber and contour. --VISUALIZED AORTIC ARCH AND BRANCHING VESSELS: Mild atheromatous disease but no significant stenosis . Dependent atelectatic changes in the lungs. --SOFT TISSUES: Normal. --CERVICAL SPINE: Age appropriate degenerative changes. IMPRESSION: 1. Normal CTA head and neck. Percent stenosis per NASCET criteria is 0%. 2. Dominant left vertebral artery. Reviewed, dictated and finalized at location A.
--- NOTE | ~2024-06-12 | XR_ITS ---
Portable chest x-ray Comparison: 05/08/2024 Clinical History: Altered mental status Findings: Small bilateral pleural effusions are present with mild bibasilar airspace disease. Cardi omediastinal silhouette is stable. Bones and soft tissues are unremarkable. Impression: Small pleural effusions with probable mild bibasilar pulmonary edema/atelectasis. Reviewed, dictated and finalized at location . Impression: Small pleural effusions with probable mild bibasilar pulmonary edema/atelectasi s.
--- OUTSIDE RECORDS SUMMARY | 2024-06-12 19:09 | XMS_ITS | Clinical Summary ---
Author Organization [facility] Address [address] [place] [address] Phone Care Team Providers Care Parking Worker Name Role Phone Milagros Haq MD Primary Care Provider [phone] Allergies Active Allergy Reactions Criticality Noted Date [...] 9 Active nitroglycerin (NITROMIST) 400 mcg/spray Aerosol, [place] place 1 spray by translingual route onto [...] MD (General) Referring Provider: Milagros Haq MD [address] [place] [address] Other: Problem Noted Date Diagnosed Date Inversion [...] 2013 INFLUENZA VACCINE (#1) [address] [place] [address] MEDICARE [employer] [facility] [id number] [place] [address] Care Teams Parking Worker Relationship Specialty Start Date End Date Milagros aHq MD [address] [place] [id number] PCP - General Family Practice 07/18/12
--- OUTSIDE RECORDS SUMMARY | 2024-06-12 19:09 | XMS_ITS | Clinical Summary ---
Author Organization [facility] Address [address] [place] [address] Care Team Providers Care Belt Loop Machine Operator Name Role Phone Unavailable Primary Care Provider Unavailabl e Encounters Date Type Department Care Team Description 05/21/2024 5:42 PM WOOD FURNITURE ASSEMBLER - 05/21/2024 11:59 PM WOOD FURNITURE ASSEMBLER Hospital Encounter [facility] [place] [address] Diana Kunz DO Discharge Disposition: Home or Self Care (Routine Discharge) 05/21/2024 Orders Only [facility] [place] [address] Diana Kunz DO from Last 3 Months [...] PRO-BRAIN NATRIURETIC PEPTIDE Routine 05/21/2024 2:29 PM WOOD FURNITURE ASSEMBLER Anemia, unspecified Vitamin D insufficiency Acute diastolic heart failure (CMS/HCC HHS/HCC) CBC W/DIFF AUTOMATED Routine 05/21/2024 2:29 PM WOOD FURNITURE ASSEMBLER Anemia, unspecified Vitamin D insufficiency Acute diastolic heart failure (CMS/HCC HHS/HCC) COMPREHENSIVE METABOLIC PANEL Routine 05/21/2024 2:29 PM WOOD FURNITURE ASSEMBLER Anemia, unspecified Vitamin D insufficiency Acute diastolic heart failure (CMS/HCC HHS/HCC) from Last 3 Months Results * (ABNORMAL) PRO-BRAIN NATRIURETIC PEPTIDE (05/21/2024 2:29 PM WOOD FURNITURE ASSEMBLER) PRO-B TYPE NATRIURETIC PEPTIDE 1,336(H) <450 PG/ML 05/21/2024 6:22 PM WOOD FURNITURE ASSEMBLER [facility] Comment: CUT POINTS ESTABLISHED BY INTERNATIONAL [...] 72% FOR ACUTE CHF. 05/21/2024 2:29 PM WOOD FURNITURE ASSEMBLER us Diana Kunz DO LABORATORY Final Resu lt [facility] [address] [place] [address], [place] [phone] * (ABNORMAL) COMPREHENSIVE METABOLIC PANEL (05/21/2024 2:29 PM WOOD FURNITURE ASSEMBLER) GLUCOSE 126(H) 70 - 99 MG/DL 05/21/2024 6:22 PM [facility] BUN 14 7 - 18 MG/DL 05/21/2024 6:22 PM [facility] CREATININE S/P/B 0.70 0.55 - 1.02 MG/DL 05/21/2024 6:22 PM [facility] SODIUM S/P/B 137 136 - 145 MMOL/L 05/21/2024 6:22 PM [facility] POTASSIUM S/P/B 3.6 3.5 - 5.1 MMOL/L 05/21/2024 6:22 PM [facility] CHLORIDE S/P/B 105 97 - 115 MMOL/L 05/21/2024 6:22 PM [facility] CO2 30.3 21 - 32 MMOL/L 05/21/2024 6:22 PM [facility] CALCIUM S/P/B 9.1 8.5 - 10.1 MG/DL 05/21/2024 6:22 PM [facility] BILIRUBIN TOTAL S/P/B 0.4 0.2 - 1.2 MG/DL 05/21/2024 6:22 PM [facility] Comment: THIS ASSAY IS NOT RECOMMENDED FOR PATIENTS UNDERGOING TREATMENT WITH ELTROMBOPAG DUE TO THE POTENTIAL FOR FALSELY ELEVATED RESULTS. TOTAL PROTEIN S/P/B 6.3(L) 6.4 - 8.2 G/DL 05/21/2024 6:22 PM [facility] ALBUMIN S/P/B 2.6(L) 3.4 - 5.0 G/DL 05/21/2024 6:22 PM [facility] AST 13(L) 15 - 37 U/L 05/21/2024 6:22 PM [facility] ALT 15 14 - 55 U/L 05/21/2024 6:22 PM [facility] ALKALINE PHOSPHATASE S/P/B 83 50 - 136 U/L 05/21/2024 6:22 PM WOOD FURNITURE ASSEMBLER [facility] ANION GAP 1.7(L) 2 - 10 MMOL/L 05/21/2024 6:22 PM [facility] BUN CREATININE RATIO 20.0 6 - 26 05/21/2024 6:22 PM [facility] A/G RATIO 0.7(L) 1.0 - 2.0 RATIO 05/21/2024 6:22 PM [facility] GFR ESTIMATE 84(L) >90 ML/MIN/1.7 3 M2 05/21/2024 6:22 PM [facility] Comment: NOTE: eGFR is not calculated for patients <18 years of age or gender unknown. This is an estimated GFR calculation using the new CKD EPI creatinine equation without race and so does not require a correction factor for race. This estimated GFR should not be used for calculating drug doses. 05/21/2024 2:29 PM WOOD FURNITURE ASSEMBLER us Diana Kunz DO LABORATORY Final Resu lt [facility] [address] [place] [address], [place] [phone] * (ABNORMAL) CBC W/DIFF AUTOMATED (05/21/2024 2:29 PM WOOD FURNITURE ASSEMBLER) WBC 4.17(L) 4.5 - 11.0 x10'3/uL 05/21/2024 5:57 PM WOOD FURNITURE ASSEMBLER [facility] RBC 3.31(L) 4.20 - 5.40 x10'6/uL 05/21/2024 5:57 PM WOOD FURNITURE ASSEMBLER [facility] HGB 9.8(L) 12.0 - 16.0 G/DL 05/21/2024 5:57 PM WOOD FURNITURE ASSEMBLER [facility] HCT 33.1(L) 38.0 - 48.0 % 05/21/2024 5:57 PM WOOD FURNITURE ASSEMBLER [facility] MCV 100.0(H) 81.0 - 99.0 FL 05/21/2024 5:57 PM WOOD FURNITURE ASSEMBLER [facility] MCH 29.6 27.0 - 31.0 PG 05/21/2024 5:57 PM [facility] MCHC 29.6(L) 32.0 - 36.0 G/DL 05/21/2024 5:57 PM WOOD FURNITURE ASSEMBLER [facility] RDW 14.6(H) 11.5 - 14.5 % 05/21/2024 5:57 PM [facility] PLT 233 130 - 400 x10'3/uL 05/21/2024 5:57 PM [facility] MPV 11.0 9.3 - 12.2 FL 05/21/2024 5:57 PM [facility] DIFFERENTIAL TYPE AUTOMATED DIFFERENTIAL 05/21/2024 5:57 PM WOOD FURNITURE ASSEMBLER [facility] NEUTROPHILS % 53.2 % 05/21/2024 5:57 PM [facility] LYMPHOCYTES % 34.1 % 05/21/2024 5:57 PM [facility] MONOCYTES % 10.1 % 05/21/2024 5:57 PM WOOD FURNITURE ASSEMBLER [facility] EOSINOPHILS 1.9 % 05/21/2024 5:57 PM WOOD FURNITURE ASSEMBLER [facility] BASOPHILS 0.5 % 05/21/2024 5:57 PM [facility] IMMATURE GRANS % 0.2 % 05/21/19 5:57 PM [facility] ABS. NEUTROPHILS 2.22 1.80 - 7.70 x10'3/uL 05/21/2024 5:57 PM WOOD FURNITURE ASSEMBLER [facility] ABS. LYMPHOCYTES 1.42 1.00 - 4.80 x10'3/uL 05/21/2024 5:57 PM WOOD FURNITURE ASSEMBLER [facility] ABS. MONOCYTES 0.42 0.24 - 0.86 x10'3/uL 05/21/2024 5:57 PM WOOD FURNITURE ASSEMBLER [facility] ABS. EOSINOPHILS 0.08 0.04 - 0.36 x10'3/uL 05/21/2024 5:57 PM WOOD FURNITURE ASSEMBLER [facility] ABS. BASOPHILS 0.02 0.01 - 0.08 x10'3/uL 05/21/2024 5:57 PM WOOD FURNITURE ASSEMBLER [facility] ABS. IMMATURE GRANULOCYTES 0.01 0.00 - 0.49 x10'3/uL 05/21/2024 5:57 PM WOOD FURNITURE ASSEMBLER [facility] 05/21/2024 2:29 PM WOOD FURNITURE ASSEMBLER us Diana Kunz DO LABORATORY Final Resu lt [facility] [address] [place] [address], from Last 3 Months Insurance [facility] MEDICARE
--- OUTSIDE RECORDS SUMMARY | 2024-06-12 19:10 | XMS_ITS | Data Portability ---
Author Organization [facility] Main Office Address [address] [place] [address] Care Team Providers Care Biodiesel Division Manager Name Role Phone P [facility] FA[facility] OTHER TOO H[place]LEY Primary Care Provider RAMÍREZ OLSON Commander Internal Affairs RAMÍREZ OLSON Referring Provider Assessment Encounter Date Assessment Date Assessment LastModified by Organization Details LastModified Time 05/31/2024 05/31/2024 continue antibiotics as ordered - stat labs just drawn, IV fluid x 1 liter, nursing working on getting remaining records from [facility] [email or web address] Not available 06/03/2024 06:24:20 06/01/2024 06/01/2024 Restart Flomax. Completed 1 liter of NS. D/C peripheral IV. Urine cx from [facility] pending. UA here was unconcerning. Restart Augmentin through 06/09 for recurrence of cholecystitis. Call out to Dr. Mckenzie (surgeon), reviewed CT from ER, gave okay for PRN celia-tube flushes, does not feel at this point that her cholangiogram needs to be moved up from 06/09 but requested we contact his office should she have another decline. Not available 06/03/2024 09:46:50 06/03/2024 06/03/2024 Urine cx from [facility] pending. [email or web address] Not available 06/03/2024 16:02:45 06/08/2024 06/08/2024 Labs (CBC, CMP, CRP) on 06/09. Dr. Aviles extended Celecoxib course x 5 more days. Voiding trial. [email or web address] Not available 06/08/2024 17:20:12 06/10/2024 06/10/2024 Daughter Jodi is waiting service person from Dr. Mckenzie's office to discuss results of yesterday's cholangiogram and plan moving forward. [email or web address] Not available 06/10/2024 15:12:36 Plan of Treatment Reminders Order Date Submit [...] By Organization Details Last Modified Time 05/31/2024 [id number] I spent {{ >50#} } minutes providing care to the patient today. More than 50% of that time was spent in discussing the expected course of the disease, discussing prognosis, coordinating care and counseling of the patient/family. Of note, the patient's antibiotics have been held today by oracle database administrator/DON orders as urine culture results are [...] to continue antibiotics for now to the oracle database administrator via text message today at 1315. [email or web address] Not available 06/03/2024 06:40:07 06/01/2024 [id number] I spent {{ 47#}} minutes providing care to the patient today. More than 50% of that time was spent in discussing the expected course of the disease, discussing prognosis, coordinating care and counseling of the patient/family. [email or web address] Not available 06/02/2024 09:19:48 06/03/2024 [id number] I spent {{ 36#}} minutes providing care to the patient today. More than 50% of that time was spent in discussing the expected course of the disease, discussing prognosis, coordinating care and counseling of the patient/family. Not available 06/03/2024 16:06:15 06/08/2024 [id number] I spent {{ 37#}} minutes providing care to the patient today. More than 50% of that time was spent in discussing the expected course of the disease, discussing prognosis, coordinating care and counseling of the patient/family. Not available 06/08/2024 16:23:24 06/10/2024 [id number] I spent {{ 36#}} minutes providing care to the patient today. More than 50% of that time was spent in discussing the expected course of the disease, discussing prognosis, coordinating care and counseling of the patient/family. Not available 06/10/2024 15:16:30 Reason for Referral None Reported. Results Created Date Observation Date Name Description Value Unit Range Abnormal Flag Note LastModifiedBy Organization Detail LastModifiedTime 05/27/19 25 05/27/2024 XR, chest , 2 view No observ ation record ed. [facility] ([facility] [address], [place], [address], 05/29/2024 09:44:02 05/27/19 25 05/27/2024 XR, lumbo sacra l spine No observ ation record ed. [facility] ([facility]) [address], [place], [address], 05/29/2024 09:44:12 05/28/19 25 05/27/2024 XR, chest , 2 view No observ ation record ed. [facility] [address] , [place], [address], 05/29/2024 09:44:25 Result Notes None recorded. Procedures Surgical History Date Name Laterality Status Provider Name and Address Organization Details Recorded Time 05/06/19 percutaneous cholecystostomy completed May Carrillo, EVONNE [address] [facility], [place], [address], [facility] 05/12/2024 16:27:51 cardiac catheterization completed [...] XR, chest, 2 view completed [facility] ([facility]) [address], [place], [address], 05/29/2024 09:44:02 05/27/2024 XR, lumbosacral spine completed [facility] ([facility]) [address], [place], [address], 05/29/2024 09:44:12 05/27/2024 XR, chest, 2 view completed [place] [address] , [place], [address], 05/29/2024 09:44:25 Procedure Notes None recorded. Medical Equipment None Reported. Allergies Allergen ID Allergen Name Allergen Category Reaction Reaction Severity Criticality Documentation Date Start Date Code Code System Note Provider Name and Address Organization Details Recorded Time 21586 alendrona te sodium medicatio n Not available Not available Not available 05/12/202483756 2 RxNorm Not Available Not Available Not Available 41009 hydrocodo ne Not available Not available Not available Not available 05/12/2024 5489 RxNorm Not Available Not Available Not Available 57537 levofloxa iliana medicatio n Not available Not available Not available 05/12/2024 01163 RxNorm Not Available Not Available Not Available [...] No t Available tamsulosin 0.4 mg capsule TAKE ONE CAPSULE BY MOUTH EVERY DAY active Not Available Not Available No t Available calcitonin (salmon) 200 unit/actuat ion nasal spray [...] day by oral route for 7 days. 06/10 completed Stop Date: 06/08 Not Available Not Available [...] ER 20 mEq tablet,exte nded release Take 2 tablets every day by oral route. active Not Available Not Available No t Available cyanocobala min (vitamin B-12) 2,500 mcg tablet Take 1 tablet every day by oral route. active Not Available Not Available No t Available Vitals Date Recorded Body height Body mass index (BMI) Body weight Heart rate Oxygen saturation Oxygen saturation in Arterial blood by Pulse oximetry Inhaled oxygen flow rate Respiratory rate Body temperature Systolic blood pressure Diastolic blood pressure Provider Name and Address Organization Details Last Updated DateTime 160.02 cm 31.7 kg/m2 24461.7 5 g 69 /min 99 % 99 % 2 L/min 18 /min 97.6 [degF] 137 mm[Hg] 77 mm[Hg] [place] [address] [place], [address] [place] [address] [facility] 02:50:59 Date Recorded Body height Heart rate Body temperature Respiratory rate Oxygen saturation Oxygen saturation in Arterial blood by Pulse oximetry Body mass index (BMI) Body weight Systolic blood pressure Diastolic blood pressure Provider Name and Address Organization Details Last Updated DateTime 160.02 cm 79 /min 98.2 [degF] 18 /min 96 % 96 % 32 kg/m2 40691.7 8 g 155 mm[Hg] 69 mm[Hg] [place] [address] [place], [address] [place] [address] [facility] 15:48:05 Date Recorded Body height Heart rate Body temperature Respiratory rate Oxygen saturation Oxygen saturation in Arterial blood by Pulse oximetry Body mass index (BMI) Body weight Systolic blood pressure Diastolic blood pressure Provider Name and Address Organization Details Last Updated DateTime 160.02 cm 84 /min 97.8 [degF] 18 /min 93 % 93 % 32 kg/m2 62019.7 8 g 152 mm[Hg] 68 mm[Hg] [place] [address] [place], [address], [facility] 15:55:01 Date Recorded Body height Heart rate Body temperature Respiratory rate Oxygen saturation Oxygen saturation in Arterial blood by Pulse oximetry Body mass index (BMI) Body weight Systolic blood pressure Diastolic blood pressure Provider Name and Address Organization Details Last Updated DateTime 160.02 cm 79 /min 97.5 [degF] 16 /min 96 % 96 % 31.1 kg/m2 30398.7 4 g 124 mm[Hg] 71 mm[Hg] [place] [address] [place], [address], [facility] 16:10:35 Date Recorded Body height Heart rate Body temperature Respiratory rate Oxygen saturation Oxygen saturation in Arterial blood by Pulse oximetry Body mass index (BMI) Body weight Systolic blood pressure Diastolic blood pressure Provider Name and Address Organization Details Last Updated DateTime 160.02 cm 88 /min 97.9 [degF] 18 /min 95 % 95 % 31.3 kg/m2 42398.4 1 g 142 mm[Hg] 61 mm[Hg] [place] [address] [facility], [place], [address], [facility] 15:01:31 Social History Question Answer Notes LastModified by Organizat ion Details LastModified Time Tobacco Smoking [place] [address] [address] [facility], [place], [address], [facility] 05/12/2024 14:21:47 What Is Your [...] 14:14:12 Medical History Condition Response Diabetes Y Vitamin D Deficiency Y Osteoarthritis / DJD Y GERD / Reflux Y Coronary Artery Disease (CAD) Y Vitamin B12 Deficiency Y Hyperlipidemia Y Allergic Rhinitis Y Hypertension Y Hypothyroidism Y Gynecological HistoryNo gynecological history recorded. Obstetrics History GPAL:G 0 P 0 0 0 0 Past Encounters Encounter ID Performer Location Encounter Start Date Encounter Closed Date Diagnosis/Indication Diagnosis SNOMED-CT Code Diagnosis ICD10 Code Diagnosis Note [id number] May Carrillo NP [place] [address] [place] [address] 05/12/2024 10:12:13 05/25/2024 11:48:21 Pressure injury of buttock 360322627 L89.309 Developed in April 2023 during COVID-19 [...] ntinue therapies -- pt is very deconditio mickyDennys is scheduling 2-week f/u appt with Dr. Mckenzie today. Atrial fibrillation 3362 8468 I48.91 New-onset while inpatient. Tx with IV heparin & Dilt, spontaneou sly converted. Transition ed to Eliquis & Metoprolol by discharge. Continue Metoprolol for rate-contr ol.Continu e Eliquis for VTE prophylaxi s.Pt follows with Dr. Olson at [facility] as OP, last seen in Jan 2024. Daughter is unclear if they will f/u with him at hospital discharge vs. attempt to find a cardiologi st closer to home. Pneumonia caused by SARS-CoV-2 4416837682 01992252 J12.82 Dx with covid-19 on 03/30, dx with pneumonia on 04/08.Treate d OP with PO antibiotic s, steroids, and cough medication s.Symptoms had resolved by 04/28.Kirill Rodríguezbs to PRN -- pt does not use as OP and daughter isn't clear why these were being given while inpatient. Pt did not have any respirator y concerns while inpatient. Physical deconditioning 3876454572 9102 R68.89 Related to age, recent inpatient stay, and multiple comorbidit ies. Continue PT/OT/ST and monitor progress. Goal is for pt to return home with daughter. Continue PRN cathartics for constipati on per standing orders. Essential hypertension 64394363 I10 Stable at present. OP Losartan & HCTZ were discontinu ed. Pt has been started on Metoprolol for rate-contr ol of Afib.Jc nue to trend blood pressures, monitor lytes and renal function, and adjust meds as clinically indicated. Hyperlipidemia 09348245 E78.5 Presumed stable. Continue Atorvastat in. Coronary arteriosclerosis 83178528 I25.[address] Olson at [facility]. Takes PRN NTG as OP for stable angina about 1x/week. RADHA while inpatient was mostly unremarkab le = LV systolic function normal, EF 55-60%. Mildly increased LV wall thickness. RV systolic function normal. LA chamber dimension moderately enlarged. Mild tricuspid valve regurg.Sta ble at present without concerns. Continue Metoprolol , Ranexa, & PRN NTG.F/U with cards as OP. Stable angina 040577388 I20.89 SEE ABOVE... Prediabetes 171895261 R7 3.03 Details unclear. Continue to monitor blood sugars on bloodwork. Hypothyroidism 77427597 E03.9 Presumed stable. Continue Levothyrox ine. Osteoarthritis 054513220 M19.90 Stable. Continue PRN APAP. Gastroesop hageal reflux disease without esophagitis 070815741 K21.9 Stable. Continue Omeprazole and PRN Zofran. Migraine 98595283 G43.90 9 Per daughter, with aura of spotty vision.Sta ble. Continue Amitriptyl ine at bedtime. Allergic rhinitis 086669 04 J30.9 Per history. Not presently on medication s. Monitor. Disorder o f vitamin B12 012890410 E53.8 Presumed stable. Continue supplement . Vitamin D deficiency 347 78987 E55.9 Per history. Not on supplement . Herpes labialis 9733403 B00.1 Abreva x 3 days or until healed. Retention of urine 41817 4002 R33.9 Failed voiding trial on 05/10. As such, she has transferre d to our facility with a valle catheter.Anastasiia Aviles started Flomax.Antwon kaur need voiding trial once more ambulatory . Dysphagia 27677778 R13.1 0 Some concerns while inpatient. Per daughter, MBS was unconcerni ng.She has been discharged on mechanical soft diet with thin liquids.ST to follow. [id number] Diana Poe, DO [address] [address] 05/14/2024 18:57:55 05/25/2024 11:49:54 Acute cholecystitis 84908249 K81.0 Initially attempted supportive treatment with IV [...] prophylaxi s.Pt follows with Dr. Olson at [facility] as OP, last seen in Jan 2024. Daughter plans to schedule f/u appointmen t after d/c from [facility] Pneumonia caused by SARS-CoV-2 9131811819 26351426 J12.82 Dx with covid-19 on 03/30, dx with pneumonia on 04/08.Treate d OP with PO antibiotic s, steroids, and cough medication s.Symptoms had resolved by 04/28.Jc nue Duonebs to PRN Retention of urine 38492 4002 R33.9 Failed voiding trial on 05/10. As such, she has transferre d to our facility with a valle catheter.Anastasiia Rickettse started Flomax.fol ey catheter removed earlier today Pressure i njury of buttock 586903701 L89.309 Developed in April 2023 during COVID-19 pneumonia. Continue to offload pressure and treat with foam dressing daily.Woun d care to follow in-house. Herpes labialis 0619015 B00.1 Abreva x 3 days or until healed Essential hypertension 53670917 I10 Stable at present. OP Losartan & HCTZ were discontinu ed. Pt has been started on Metoprolol for rate-contr ol of Afib.Jc corona to trend blood pressures, monitor lytes and renal function, and adjust meds as clinically indicated. Hyperlipidemia 31311910 E78.5 Presumed stable. Continue Atorvastat in. Coronary arteriosclerosis 91640078 I25.[address] Olson at [facility]. Takes PRN NTG as OP for stable angina about 1x/week. RADHA while inpatient was mostly unremarkab le = LV systolic function normal, EF 55-60%. Mildly increased LV wall thickness. RV systolic function normal. LA chamber dimension moderately enlarged. Mild tricuspid valve regurg.Sta ble at present without concerns. Continue Metoprolol , Ranexa, & PRN NTG.F/U with cards as OP. Stable angina 317290442 I20.89 SEE ABOVE... Hypothyroidism 01545728 E03.9 Presumed stable. Continue Levothyrox ine. Osteoarthritis 200423318 M19.90 Stable. Continue PRN APAP. Dysphagia 95585831 R13.1 0 Some concerns while inpatient. Per daughter, MBS was un-concern ing.She has been discharged on mechanical soft diet with thin liquids.ST to follow. Gastroesop hageal reflux disease without esophagitis 470322998 K21.9 Stable. Continue Omeprazole and PRN Zofran. Migraine 56405930 G43.90 9 Per daughter, with aura of spotty vision.Sta ble. Continue Amitriptyl ine at bedtime. Prediabetes 605785634 R7 3.03 Details unclear. Continue to monitor blood sugars on bloodwork. Allergic rhinitis 657710 04 J30.9 Per history. Not presently on medication s. Monitor. Disorder o f vitamin B12 090520518 E53.8 Presumed stable. Continue supplement . Vitamin D deficiency 347 19889 E55.9 Per history. Not on supplement . Physical deconditioning 1239272747 9102 R68.89 Related to age, recent inpatient stay, and multiple comorbidit ies. Continue PT/OT/ST and monitor progress. Goal is for pt to return home with daughter. Continue PRN cathartics for constipati on per standing orders. [id number] May Carrillo NP [address] [address] 05/19/2024 08:28:41 05/25/2024 11:49:06 Acute cholecystitis 52148696 K81.0 Initially attempted supportive treatment with IV [...] prophylaxi s.Pt follows with Dr. Olson at [facility] as OP, last seen in Jan 2024. Daughter plans to schedule f/u appointmen t after d/c from [facility]. Pneumonia caused by SARS-CoV-2 5944147296 14264124 J12.82 Dx with covid-19 on 03/30, dx with pneumonia on 04/08.Treate d OP with PO antibiotic s, steroids, and cough medication s.Symptoms had resolved by 04/28.Jc nue Duonebs to PRN Retention of urine 66298 4002 R33.9 Failed voiding trial on 05/10. As such, she was transferre d to our facility with a valle catheter. Reattempte d with Flomax on 05/14 and has been successful ly voiding. Flomax has been stopped.Mo nitor for recurrence . Pressure i njury of buttock 056883901 L89.309 Developed in April 2023 during COVID-19 pneumonia. Continue to offload pressure and treat with foam dressing daily.Woun d care to follow in-house. Herpes labialis 3540042 B00.1 Healed with Abreva. Essential hypertension 40392014 I10 Stable at present. OP Losartan & HCTZ were discontinu ed. Pt has been started on Metoprolol for rate-contr ol of Afib.Jc nue to trend blood pressures, monitor lytes and renal function, and adjust meds as clinically indicated. Hyperlipidemia 52803091 E78.5 Presumed stable. Continue Atorvastat in. Coronary arteriosclerosis 94468878 I25.[address] OP [address] Olson at [facility]. Takes PRN NTG as OP for stable angina about 1x/week. RADHA while inpatient was mostly unremarkab le = LV systolic function normal, EF 55-60%. Mildly increased LV wall thickness. RV systolic function normal. LA chamber dimension moderately enlarged. Mild tricuspid valve regurg.Sta ble at present without concerns. Continue Metoprolol , Ranexa, & PRN NTG.F/U with cards as OP. Stable angina 323819403 I20.89 SEE ABOVE... Hypothyroidism 72869601 E03.9 Presumed stable. Continue Levothyrox ine. Osteoarthritis 230039660 M19.90 Stable. Continue PRN APAP. Dysphagia 13015422 R13.1 0 Some concerns while inpatient. Per daughter, MBS was un-concern ing.She has been discharged on mechanical soft diet with thin liquids.ST to follow. Gastroesop hageal reflux disease without esophagitis 007314836 K21.9 Stable. Continue Omeprazole and PRN Zofran. Migraine 78431939 G43.90 9 Per daughter, with aura of spotty vision.Sta ble. Continue Amitriptyl ine at bedtime. Prediabetes 136440596 R7 3.03 Details unclear. Continue to monitor blood sugars on bloodwork. Allergic rhinitis 605748 04 J30.9 Per history. Not presently on medication s. Monitor. Disorder o f vitamin B12 612142551 E53.8 Presumed stable. Continue supplement . Vitamin D deficiency 347 25612 E55.9 Per history. Not on supplement . Physical deconditioning 1642039814 9102 R68.89 Related to age, recent inpatient stay, and multiple comorbidit ies. Continue PT/OT/ST and monitor progress. Goal is for pt to return home with daughter. Continue PRN cathartics for constipati on per standing orders. [id number] May Carrillo NP [place] [address] [place] [address] 05/25/2024 12:43:05 06/08/2024 21:37:29 Lumbar spondylosis 031129910 M47.896 Increase routine APAP to 1000 mg TID.Increa se PRN Cyclobenza clay to 10 mg q8hrs PRN. Monitor for drowsiness (pt denies thus far).Add Lidocaine patch daily.If no improvemen t, may need to advance to PRN Tramadol.I f pain does not improve or worsens, will check Thoracic & Lumbar XRs. Burst frac ture of lumbar vertebra 784650486 S32.021S Old, noted on imaging incidental ly [...] prophylaxi s.Pt follows with Dr. Olson at [facility] as OP, last seen in Jan 2024. Daughter plans to schedule f/u appointmen t after d/c from . Pneumonia caused by SARS-CoV-2 5932475874 30018353 J12.82 Dx with covid-19 on 03/30, dx with pneumonia on 04/08.Treate d OP with PO antibiotic s, steroids, and cough medication s.Symptoms had resolved by 04/28.Jc chloe Duonebs to PRN Retention of urine 10591 4002 R33.9 Failed voiding trial on 05/10. As such, she was transferre d to our facility with a valle catheter. Reattempte d with Flomax on 05/14 and has been successful ly voiding. Flomax has been stopped.Mo nitor for recurrence . Pressure i njury of buttock 152755819 L89.309 Developed in April 2023 during COVID-19 pneumonia. Continue to offload pressure and treat with foam dressing daily.Woun d care to follow in-house. Herpes labialis 1694351 B00.1 Healed with Abreva. Essential hypertension 94565714 I10 Stable at present. OP Losartan & HCTZ were discontinu ed. Pt has been started on Metoprolol for rate-contr ol of Afib.Jc nue to trend blood pressures, monitor lytes and renal function, and adjust meds as clinically indicated. Hyperlipidemia 77529940 E78.5 Presumed stable. Continue Atorvastat in. Coronary arteriosclerosis 97651989 I25.[address] OP [address] Olson at [facility]. Takes PRN NTG as OP for stable angina about 1x/week. RADHA while inpatient was mostly unremarkab le = LV systolic function normal, EF 55-60%. Mildly increased LV wall thickness. RV systolic function normal. LA chamber dimension moderately enlarged. Mild tricuspid valve regurg.Sta ble at present without concerns. Continue Metoprolol , Ranexa, & PRN NTG.F/U with cards as OP. Stable angina 615692074 I20.89 SEE ABOVE... Hypothyroidism 96071333 E03.9 Presumed stable. Continue Levothyrox ine. Osteoarthritis 810221554 M19.90 Stable. Continue PRN APAP. Dysphagia 80013182 R13.1 0 Some concerns while inpatient. Per daughter, MBS was un-concern ing.She has been discharged on mechanical soft diet with thin liquids.ST to follow. Gastroesop hageal reflux disease without esophagitis 024323488 K21.9 Stable. Continue Omeprazole and PRN Zofran. Migraine 40297750 G43.90 9 Per daughter, with aura of spotty vision.Sta ble. Continue Amitriptyl ine at bedtime. Prediabetes 273250804 R7 3.03 Details unclear. Continue to monitor blood sugars on bloodwork. Allergic rhinitis 046822 04 J30.9 Per history. Not presently on medication s. Monitor. Disorder o f vitamin B12 608740923 E53.8 Presumed stable. Continue supplement . Vitamin D deficiency 347 99338 E55.9 Per history. Not on supplement . Physical deconditioning 2659566165 9102 R68.89 Related to age, recent inpatient stay, and multiple comorbidit ies. Continue PT/OT/ST and monitor progress. Goal is for pt to return home with daughter. Continue PRN cathartics for constipati on per standing orders. [id number] May Carrillo NP [address] [address] 05/27/2024 13:50:28 06/08/2024 21:38:11 Lumbar spondylosis 161019002 M47.896 Continue routine APAP to 1000 mg TID, Lidocaine patch, and schedule Cyclobenza clay qAM before therapy. Continue PRN dosing, as well. Monitor for drowsiness (pt denies thus far).Obtai n Lumbar Spine XR.If no improvemen t, may need to advance to PRN Tramadol. Burst frac ture of lumbar vertebra 208793046 S32.021S Old, noted on imaging incidental ly while inpatient. Jodi believes this occurred prior to Mar 2023.SEE ABOVE... Acute cholecystitis 7427 5824 K81.0 Initially attempted supportive treatment with IV [...] prophylaxi s.Pt follows with Dr. Olson at [facility] as OP, last seen in Jan 2024. Daughter plans to schedule f/u appointmen t after d/c from [facility]. Pneumonia caused by SARS-CoV-2 2298074198 44653916 J12.82 Dx with covid-19 on 03/30, dx with pneumonia on 04/08.Treate d OP with PO antibiotic s, steroids, and cough medication s.Symptoms had resolved by 04/28.Jc nue Duonebs to PRN Retention of urine 73249 4002 R33.9 Failed voiding trial on 05/10. As such, she was transferre d to our facility with a valle catheter. Reattempte d with Flomax on 05/14 and has been successful ly voiding. Flomax has been stopped.Mo julitoor for recurrence . Pressure i njury of buttock 464969877 L89.309 Developed in April 2023 during COVID-19 pneumonia. Continue to offload pressure and treat with foam dressing daily.Woun d care to follow in-house. Essential hypertension 54640656 I10 Stable at present. OP Losartan & HCTZ were discontinu ed. Pt has been started on Metoprolol for rate-contr ol of Afib.Jc chloe to trend blood pressures, monitor lytes and renal function, and adjust meds as clinically indicated. Hyperlipidemia 48969339 E78.5 Presumed stable. Continue Atorvastat in. Coronary arteriosclerosis 53720799 I25.10 Follow[address] OP [address] Olson at [facility]. Takes PRN NTG as OP for stable angina about 1x/week. RADHA while inpatient was mostly unremarkab le = LV systolic function normal, EF 55-60%. Mildly increased LV wall thickness. RV systolic function normal. LA chamber dimension moderately enlarged. Mild tricuspid valve regurg.Sta ble at present without concerns. Continue Metoprolol , Ranexa, & PRN NTG.F/U with cards as OP. Stable angina 468535587 I20.89 SEE ABOVE... Hypothyroidism 64420665 E03.9 Presumed stable. Continue Levothyrox ine. Osteoarthritis 841328105 M19.90 Stable. Continue PRN APAP. Dysphagia 26857417 R13.1 0 Some concerns while inpatient. Per daughter, MBS was un-concern ing.She has been discharged on mechanical soft diet with thin liquids.ST to follow. Gastroesop hageal reflux disease without esophagitis 097274274 K21.9 Stable. Continue Omeprazole and PRN Zofran. Migraine 24622165 G43.90 9 Per daughter, with aura of spotty vision.Sta ble. Continue Amitriptyl ine at bedtime. Prediabetes 210131865 R7 3.03 Details unclear. Continue to monitor blood sugars on bloodwork. Allergic rhinitis 659451 04 J30.9 Per history. Not presently on medication s. Monitor. 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 Continue supplement . Vitamin D deficiency 347 94728 E55.9 Per history. Not on supplement . Herpes labialis 7300614 B00.1 Healed with Abreva. Physical deconditioning 2238681022 9102 R68.89 Related to age, recent inpatient stay, and multiple comorbidit ies. Continue PT/OT/ST and monitor progress. Goal is for pt to return home with daughter. Continue PRN cathartics for constipati on per standing orders. Hypokalemia 83550614 E87 .6 Give KCl 40 meq x 1 dose. Lung field abnormal 2747 49014 R91.8 Obtain CXR.Respir atory status is stable.Mon itor closely. [id number] May Carrillo NP [address] [address] [place] [address] 05/29/2024 17:15:58 05/30/2024 13:33:41 Lumbar spondylosis 065537557 M47.896 Pt has known compressio n fracture [...] days (06/11).Ref er to pain management at [facility]. Burst frac ture of lumbar vertebra 814453800 S32.021S Old, noted on imaging incidental ly [...] prophylaxi s.Pt follows with Dr. Olson at [facility] as OP, last seen in Jan 2024. Daughter plans to schedule f/u appointmen t after d/c from [facility]. Pneumonia caused by SARS-CoV-2 3058532336 93811648 J12.82 Dx with covid-19 on 03/30, dx with pneumonia on 04/08.Treate d OP with PO antibiotic s, steroids, and cough medication s.Symptoms had resolved by 04/28.Jc chloe Duonebs to PRN Retention of urine 61804 4002 R33.9 Failed voiding trial on 05/10. As such, she was transferre d to our facility with a valle catheter. Reattempte d voiding trial with Flomax on 05/14 and has been successful ly voiding. Flomax has been stopped.Mo nitor for recurrence . Pressure i njury of buttock 683459758 L89.309 Developed in April 2023 during COVID-19 pneumonia. Continue to offload pressure and treat with foam dressing daily.Woun d care to follow in-house. Essential hypertension 76735502 I10 Stable at present. OP Losartan & HCTZ were discontinu ed. Pt has been started on Metoprolol for rate-contr ol of Afib.Jc nue to trend blood pressures, monitor lytes and renal function, and adjust meds as clinically indicated. Hyperlipidemia 08071736 E78.5 Presumed stable. Continue Atorvastat in. Coronary arteriosclerosis 04273386 I25.[address] Olson at [facility]. Takes PRN NTG as OP for stable angina about 1x/week. RADHA while inpatient was mostly unremarkab le = LV systolic function normal, EF 55-60%. Mildly increased LV wall thickness. RV systolic function normal. LA chamber dimension moderately enlarged. Mild tricuspid valve regurg.Sta ble at present without concerns. Continue Metoprolol , Ranexa, & PRN NTG.F/U with cards as OP. Stable angina 765375579 I20.89 SEE ABOVE... Hypothyroidism 29144899 E03.9 Presumed stable. Continue Levothyrox ine. Osteoarthritis 864764992 M19.90 Stable. Continue PRN APAP. Dysphagia 18456117 R13.1 0 Some concerns while inpatient. Per daughter, MBS was un-concern ing.She has been discharged on mechanical soft diet with thin liquids.ST to follow. Gastroesop hageal reflux disease without esophagitis 613844687 K21.9 Stable. Continue Omeprazole and PRN Zofran. Migraine 37577161 G43.90 9 Per daughter, with aura of spotty vision.Sta ble. Continue Amitriptyl ine at bedtime. Prediabetes 513048760 R7 3.03 Details unclear. Continue to monitor blood sugars on bloodwork. BS 90 & 101 thus far. Allergic rhinitis 404037 04 J30.9 Per history. Not presently on medication s. Monitor. Disorder o f vitamin B12 004808945 E53.8 Presumed stable. Continue supplement . Vitamin D deficiency 347 92342 E55.9 Per history. Not on supplement . Herpes labialis 4782307 B00.1 Healed with Abreva. Physical deconditioning 7152899316 9102 R68.89 Related to age, recent inpatient stay, and multiple comorbidit ies. Continue PT/OT/ST and monitor progress. Goal is for pt to return home with daughter. Continue PRN cathartics for constipati on per standing orders. Edema of l ower extremity 305376742 R60.0 Lasix 40 mg daily x 3 days.KCl 20 meq daily x 3 days.Jc nue BLE rebeca wraps on AM off PM. Encourage elevation of BLE when at rest.Labs on 06/01. [id number] Diana Poe DO [address] [address] 05/31/2024 16:34:55 06/03/2024 06:40:33 Acute urinary tract infection 374608157 N39.0 the patient was treated with IV [...] clinically appropriat e Altered mental status 41 4582513 R41.82 suspect related to aboveavoid sedating meds - pain meds and muscle relaxants have been discontinu ed Lumbar spondylosis 47068 0009 M47.896 Pt has known compressio n [...] has been made to pain management at [facility]. Burst frac ture of lumbar vertebra 381775796 S32.021S Old, noted on imaging incidental ly [...] prophylaxi s.Pt follows with Dr. Olson at [facility] as OP, last seen in Jan 2024. Daughter plans to schedule f/u appointmen t after d/c from [facility]. Pneumonia caused by SARS-CoV-2 1683691555 13844033 J12.82 Dx with covid-19 on 03/30, dx with pneumonia on 04/08.Treate d OP with PO antibiotic s, steroids, and cough medication s.Symptoms had resolved by 04/28.She has had the need for supplement al O2 over the recent daysCXR done 05/27 was concerning for possible RLL infiltrate - need to get imaging studies done at [facility] yesterday to see if CT included chest or if repeat CXR was done. If not, might consider repeat here.Jc nue Duonebs to PRN Retention of urine 78666 4002 R33.9 Failed voiding trial on 05/10. As such, she was transferre d to our facility with a valle catheter. Reattempte d voiding trial with Flomax on 05/14 and she had been successful ly voiding.Sh doni has had retention again over the recent days with dark/foamy urine and +UA in the ER yesterdayc ontinue valle catheter for now [id number] May Carrillo, EVONNE [facility] [address] [place] [address] 06/01/2024 13:40:54 06/03/2024 09:50:28 Altered mental status 702944839 R41.82 Improved. Suspected sec to acute cholecysti tis recurrence .SEE ABOVE... Lumbar spondylosis 22305 0009 M47.896 Pt has known compressio n [...] has been made to pain management at [facility]. Burst frac ture of lumbar vertebra 763883353 S32.021S Old, noted on imaging incidental ly [...] prophylaxi s.Pt follows with Dr. Olson at [facility] as OP, last seen in Jan 2024. Daughter plans to schedule f/u appointmen t after d/c from [facility]. Pneumonia caused by SARS-CoV-2 4815015311 71488379 J12.82 Dx with covid-19 on 12/30, dx with pneumonia on 04/08.Treate d OP with PO antibiotic s, steroids, and cough medication s.Symptoms had resolved by 04/28.She has had the need for supplement al O2 over the recent daysContin ue Duonebs to PRN.SEE ABOVE... Retention of urine 14566 4002 R33.9 Failed voiding trial on 05/10. As such, she was transferre d to our facility with a valle catheter. Reattempte d voiding trial with Flomax on 05/14 and she had been successful ly voiding but she unfortunat christina had recurrence of retention on 05/30, so catheter was replaced.C ontinue catheter care and have restarted Flomax.SEE ABOVE... Asymptomat ic bacteriuria 592935077 R82.71 Patient was treated with IV Rocephin in the ER on 05/30.Contin ues on Augmentin but this for acute cholecysti tis.UA done here on 06/01 (after IV antibiotic dose) did not meet criteria for reflex.Sti ll waiting on urine culture results from [facility] from 05/30. Edema of l ower extremity 990884168 R60.0 Continue BLE rebeca wraps on AM off PM. Encourage elevation of BLE when at rest.Trend labs. Pressure i njury of buttock 588150197 L89.309 Developed in April 2023 during COVID-19 pneumonia. Continue to offload pressure and treat with foam dressing daily.Woun d care to follow in-house. Essential hypertension 96698345 I10 Stable at present. OP Losartan & HCTZ were discontinu ed. Pt has been started on Metoprolol for rate-contr ol of Afib.Jc nue to trend blood pressures, monitor lytes and renal function, and adjust meds as clinically indicated. Hyperlipidemia 68748612 E78.5 Presumed stable. Continue Atorvastat in. Coronary arteriosclerosis 05532237 I25.[address] Olson at [facility]. Takes PRN NTG as OP for stable angina about 1x/week. RADHA while inpatient was mostly unremarkab le = LV systolic function normal, EF 55-60%. Mildly increased LV wall thickness. RV systolic function normal. LA chamber dimension moderately enlarged. Mild tricuspid valve regurg.Sta ble at present without concerns. Continue Metoprolol , Ranexa, & PRN NTG.F/U with cards as OP. Stable angina 494473386 I20.89 SEE ABOVE... Hypothyroidism 01692446 E03.9 Presumed stable. Continue Levothyrox ine. Osteoarthritis 638904514 M19.90 Stable. Continue PRN APAP. Dysphagia 40238343 R13.1 0 Some concerns while inpatient. Per daughter, MBS was un-concern ing.She has been discharged on mechanical soft diet with thin liquids.ST to follow. Gastroesop hageal reflux disease without esophagitis 587228255 K21.9 Stable. Continue Omeprazole and PRN Zofran. Migraine 49827824 G43.90 9 Per daughter, with aura of spotty vision.Sta ble. Continue Amitriptyl ine at bedtime, dose reduced to 20 mg qhs. Prediabetes 063814322 R7 3.03 Details unclear. Continue to monitor blood sugars on bloodwork. BS 90-100s thus far. Allergic rhinitis 834148 04 J30.9 Per history. Not presently on medication s. Monitor. Disorder o f vitamin B12 977300173 E53.8 Presumed stable. Continue supplement . Vitamin D deficiency 347 53736 E55.9 Per history. Not on supplement . Herpes labialis 3613264 B00.1 Healed with Abreva. Physical deconditioning 7888774711 9102 R68.89 Related to age, recent inpatient stay, and multiple comorbidit ies. Continue PT/OT/ST and monitor progress. Goal is for pt to return home with daughter. Continue PRN cathartics for constipati on per standing orders. Imaging of lung abnormal 819157311 R91.8 05/27 CXR on 05/27 done for [...] stable on RA.Continu e Augmentin as above. [id number] May Carrillo, EVONNE [address] [address] 06/03/2024 12:08:20 06/08/2024 21:39:14 Acute cholecystitis 49434503 K81.0 Initially attempted supportive treatment with IV [...] 05/26 with NNO. Imaging of lung abnormal 845750349 R91.8 05/27 CXR on 05/27 done for [...] e Augmentin as above. Asymptomat ic bacteriuria 650815407 R82.71 Patient was treated with IV Rocephin in the ER on 05/30.Contin ues on Augmentin but this for acute cholecysti tis.UA done here on 06/01 (after IV antibiotic dose) did not meet criteria for reflex.Sti ll waiting on urine culture results from [facility] from 05/30. Lumbar spondylosis 54975 0009 M47.896 Pt has known compressio n [...] has been made to pain management at [facility]. Burst frac ture of lumbar vertebra 026521149 S32.021S Old, noted on imaging incidental ly while inpatient. Jodi believes this occurred prior to Mar 2023.SEE ABOVE... Altered mental status 41 3945331 R41.82 Improved. Suspected sec to acute cholecysti tis recurrence .SEE ABOVE... Atrial fibrillation 4943 6004 I48.91 New-onset while inpatient. Tx with IV heparin & Dilt, spontaneou sly converted. Transition ed to Eliquis & Metoprolol by discharge. Continue Metoprolol for rate-contr ol.Continu e Eliquis for VTE prophylaxi s.Pt follows with Dr. Olson at [facility] as OP, last seen in Jan 2024. Daughter plans to schedule f/u appointmen t after d/c from . Retention of urine 94316 4002 R33.9 Failed voiding trial on 05/10. As such, she was transferre d to our facility with a valle catheter. Reattempte d voiding trial with Flomax on 05/14 and she had been successful ly voiding but she unfortnam vasquez had recurrence of retention on 05/30, so catheter was replaced.C ontinue catheter care and have restarted Flomax.SEE ABOVE... Edema of l ower extremity 740602452 R60.0 Continue BLE rebeca wraps on AM off PM. Encourage elevation of BLE when at rest.Trend labs. Pressure i njury of buttock 830115911 L89.309 Developed in April 2023 during COVID-19 pneumonia. Continue to offload pressure and treat with foam dressing daily.Woun d care to follow in-house. Essential hypertension 55494601 I10 Stable at present. OP Losartan & HCTZ were discontinu ed. Pt has been started on Metoprolol for rate-contr ol of Afib.Jc nue to trend blood pressures, monitor lytes and renal function, and adjust meds as clinically indicated. Hyperlipidemia 60617529 E78.5 Presumed stable. Continue Atorvastat in. Coronary arteriosclerosis 33056561 I25.[address] Olson at [facility]. Takes PRN NTG as OP for stable angina about 1x/week. RADHA while inpatient was mostly unremarkab le = LV systolic function normal, EF 55-60%. Mildly increased LV wall thickness. RV systolic function normal. LA chamber dimension moderately enlarged. Mild tricuspid valve regurg.Sta ble at present without concerns. Continue Metoprolol , Ranexa, & PRN NTG.F/U with cards as OP. Stable angina 169068835 I20.89 SEE ABOVE... Hypothyroidism 83716472 E03.9 Presumed stable. Continue Levothyrox ine. Osteoarthritis 140837105 M19.90 Stable. Continue PRN APAP. Dysphagia 62581707 R13.1 0 Some concerns while inpatient. Per daughter, MBS was unconcerni ng.She has been discharged on mechanical soft diet with thin liquids.ST to follow. Gastroesop hageal reflux disease without esophagitis 410069730 K21.9 Stable. Continue Omeprazole and PRN Zofran. Migraine 36647591 G43.90 9 Per daughter, with aura of spotty vision.Sta ble. Continue Amitriptyl ine at bedtime, dose reduced to 20 mg qhs. Prediabetes 104366185 R7 3.03 Details unclear. Continue to monitor blood sugars on bloodwork. BS 90-100s thus far. Allergic rhinitis 583217 04 J30.9 Per history. Not presently on medication s. Monitor. Disorder o f vitamin B12 131995228 E53.8 Presumed stable. Continue supplement . Vitamin D deficiency 347 39932 E55.9 Per history. Not on supplement . Herpes labialis 3716978 B00.1 Healed with Abreva. Pneumonia caused by SARS-CoV-2 2155868605 67165051 J12.82 Dx with covid-19 on 03/30, dx with pneumonia on 04/08.Treate d OP with PO antibiotic s, steroids, and cough medication s.Symptoms had resolved by 04/28.She has had the need for supplement al O2 over the recent daysContin ue Duonebs to PRN.SEE ABOVE... Physical deconditioning 6049665023 9102 R68.89 Related to age, recent inpatient stay, and multiple comorbidit ies. Continue PT/OT/ST and monitor progress. Goal is for pt to return home with daughter. Continue PRN cathartics for constipati on per standing orders. [id number] May Carrillo NP [address] [address] [place] [address] 06/08/2024 10:22:03 06/08/2024 17:21:07 Acute cholecystitis 98271567 K81.0 Initially attempted supportive treatment with IV [...] 05/26 with NNO. Imaging of lung abnormal 029798882 R91.8 05/27 CXR on 05/27 done for [...] e Augmentin as above. Asymptomat ic bacteriuria 466446992 R82.71 Patient was treated with IV Rocephin in the ER on 05/30.Contin ues on Augmentin but this for acute cholecysti tis.UA done here on 06/01 (after IV antibiotic dose) did not meet criteria for reflex.Uri ne culture results from [facility] from 05/30 only grew 10-49,0000 nakita albicans. Lumbar spondylosis 37674 0001 M47.896 Pt has known compressio n fracture [...] has been made to pain management at [facility]. Burst frac ture of lumbar vertebra 707895060 S32.021S SEE ABOVE... Altered mental status 41 7160543 R41.82 Improved. Suspected sec to acute cholecysti tis recurrence .SEE ABOVE... Atrial fibrillation 4943 6004 I48.91 New-onset while inpatient. Tx with IV heparin & Dilt, spontaneou sly converted. Transition ed to Eliquis & Metoprolol by discharge. Continue Metoprolol for rate-contr ol.Continu e Eliquis for VTE prophylaxi s.Pt follows with Dr. Olson at [facility] as OP, last seen in Jan 2024. Daughter plans to schedule f/u appointmen t after d/c from . Retention of urine 00708 4002 R33.9 Failed voiding trial on 05/10. [...] today.SEE ABOVE... Edema of l ower extremity 404273610 R60.0 Continue BLE rebeca wraps on AM off PM. Encourage elevation of BLE when at rest.Trend labs. Pressure i njury of buttock 527670759 L89.309 Developed in April 2023 during COVID-19 pneumonia. Continue to offload pressure and treat with foam dressing daily.Woun d care to follow in-house. Essential hypertension 08138958 I10 Stable at present. OP Losartan & HCTZ were discontinu ed. Pt has been started on Metoprolol for rate-contr ol of Afib.Jc nue to trend blood pressures, monitor lytes and renal function, and adjust meds as clinically indicated. Hyperlipidemia 62114535 E78.5 Presumed stable. Continue Atorvastat in. Coronary arteriosclerosis 84557265 I25.[address] OP [address] Olson at [facility]. Takes PRN NTG as OP for stable angina about 1x/week. RADHA while inpatient was mostly unremarkab le = LV systolic function normal, EF 55-60%. Mildly increased LV wall thickness. RV systolic function normal. LA chamber dimension moderately enlarged. Mild tricuspid valve regurg.Sta ble at present without concerns. Continue Metoprolol , Ranexa, & PRN NTG.F/U with cards as OP. Stable angina 981227631 I20.89 SEE ABOVE... Hypothyroidism 94715632 E03.9 Presumed stable. Continue Levothyrox ine. Osteoarthritis 632415463 M19.90 Stable. Continue PRN APAP. Dysphagia 39997998 R13.1 0 Some concerns while inpatient. Per daughter, MBS was unconcerni ng.She has been discharged on mechanical soft diet with thin liquids.ST to follow. Gastroesop hageal reflux disease without esophagitis 763655709 K21.9 Stable. Continue Omeprazole and PRN Zofran. Migraine 05519662 G43.90 9 Per daughter, with aura of spotty vision.Sta ble. Continue Amitriptyl ine at bedtime, dose reduced to 20 mg qhs. Prediabetes 842644173 R7 3.03 Details unclear. Continue to monitor blood sugars on bloodwork. BS 90-100s thus far. Allergic rhinitis 515065 04 J30.9 Per history. Not presently on medication s. Monitor. Disorder o f vitamin B12 311271512 E53.8 Presumed stable. Continue supplement . Vitamin D deficiency 347 49590 E55.9 Per history. Not on supplement . Herpes labialis 5402340 B00.1 Healed with Abreva. Pneumonia caused by SARS-CoV-2 7216105046 57133860 J12.82 Dx with covid-19 on 03/30, dx with pneumonia on 04/08.Treate d OP with PO antibiotic s, steroids, and cough medication s.Symptoms had resolved by 04/28.She has had the need for supplement al O2 over the recent daysContin ue Duonebs to PRN.SEE ABOVE... Physical deconditioning 5120192249 9102 R68.89 Related to age, recent inpatient stay, and multiple comorbidit ies. Continue PT/OT/ST and monitor progress. Goal is for pt to return home with daughter. Continue PRN cathartics for constipati on per standing orders. [id number] May Carrillo NP [address] [address] 06/10/2024 09:34:44 06/10/2024 15:18:02 Acute cholecystitis 09940688 K81.0 Initially attempted supportive treatment with IV [...] She has since improved in above-ment ioned symptoms, flank pain has improved, and she has finally progressed back to her prior level of functionin g before 05/26.RUQ drain dressing being changed daily & PRN.She did have a F/U appt with Dr. Mckenzie on 05/26 with NNO.[facility] Jodi is waiting service person from Dr. Mckenzie's office to discuss results of 06/09's cholangiog william and plan moving forward. Imaging of lung abnormal 712826846 R91.8 05/27 CXR on 05/27 done for abnormal lung sounds (crackles in bases) read Difficult evaluation because of respirator y motion. Small left pleural effusion vs. pleuropulm onary scarring at left costophren ic angle, other left basilar lung pathology may be obscured. Small focal infiltrate or pleuropulm onary scarring in medial right lung base. Marginal cardiomega ly with minimal, if any, pulmonary venous hypertensi on vs. vascular redistribu tion associated with recumbent positionin kelsie ovalle it appears that [facility] did not do lung imaging in the ER. She did briefly require oxygen supplement ation just before and during her ER visit on 05/30, but has since been stable on RA.Continu e Augmentin as above. Lumbar spondylosis 95164 0009 M47.896 Pt has known compressio n [...] has been made to pain management at [facility]. Burst frac ture of lumbar vertebra 188738170 S32.021S SEE ABOVE... Altered mental status 41 1932093 R41.82 Improved. Suspected sec to acute cholecysti tis recurrence .SEE ABOVE... Atrial fibrillation 4943 6004 I48.91 New-onset while inpatient. Tx with IV heparin & Dilt, spontaneou sly converted. Transition ed to Eliquis & Metoprolol by discharge. Continue Metoprolol for rate-contr ol.Continu e Eliquis for VTE prophylaxi s.Pt follows with Dr. Olson at [facility] as OP, last seen in Jan 2024. Daughter plans to schedule f/u appointmen t after d/c from . Retention of urine 83823 4002 R33.9 Failed voiding trial on 05/10. As such, she was transferre d to our facility with a valle catheter. Reattempte d voiding trial with Flomax on 05/14 and she had been successful ly voiding but she unfortunat christina had recurrence of retention on 05/30, so catheter was replaced.R estarted Flomax and removed valle on 06/08. She has been voiding since then without concerns for retention. SEE ABOVE... Asymptomat ic bacteriuria 338423005 R82.71 Patient was treated with IV Rocephin in the ER on 05/30.Contin ues on Augmentin but this for acute cholecysti tis.UA done here on 06/01 (after IV antibiotic dose) did not meet criteria for reflex.Uri ne culture results from [facility] from 05/30 only grew 10-49,0000 nakita albicans. Edema of l ower extremity 295513454 R60.0 Continue BLE rebeca wraps on AM off PM. Encourage elevation of BLE when at rest.Trend labs. Pressure i njury of buttock 674358369 L89.309 Developed in April 2023 during COVID-19 pneumonia. Continue to offload pressure and treat with foam dressing daily.Woun d care to follow in-house. Essential hypertension 73925227 I10 Stable at present. OP Losartan & HCTZ were discontinu ed. Pt has been started on Metoprolol for rate-contr ol of Afib.Jc nue to trend blood pressures, monitor lytes and renal function, and adjust meds as clinically indicated. Hyperlipidemia 67709088 E78.5 Presumed stable. Continue Atorvastat in. Coronary arteriosclerosis 30118420 I25.10 Follow[address] OP [address] Dr. Olson at [facility]. Takes PRN NTG as OP for stable angina about 1x/week. RADHA while inpatient was mostly unremarkab le = LV systolic function normal, EF 55-60%. Mildly increased LV wall thickness. RV systolic function normal. LA chamber dimension moderately enlarged. Mild tricuspid valve regurg.Sta ble at present without concerns. Continue Metoprolol , Ranexa, & PRN NTG.F/U with cards as OP. Stable angina 587766602 I20.89 SEE ABOVE... Hypothyroidism 18296059 E03.9 Presumed stable. Continue Levothyrox ine. Osteoarthritis [id number] M19.90 Stable. Continue PRN APAP. Dysphagia 34885672 R13.1 0 Some concerns while inpatient. Per daughter, MBS was unconcerni ng.She has been discharged on mechanical soft diet with thin liquids.ST to follow. Gastroesop hageal reflux disease without esophagitis [id number] K21.9 Stable. Continue Omeprazole and PRN Zofran. Migraine [id number] G43.90 9 Per daughter, with aura of spotty vision.Sta ble. Continue Amitriptyl ine at bedtime, dose reduced to 20 mg qhs. Prediabetes [id number] R7 3.03 Details unclear. Continue to monitor blood sugars on bloodwork. BS 90-100s. Allergic rhinitis 156373 04 J30.9 Per history. Not presently on medication s. Monitor. Disorder o f vitamin B12 554958198 E53.8 Presumed stable. Continue supplement . Vitamin D deficiency 347 87451 E55.9 Per history. Not on supplement . Herpes labialis 6079230 B00.1 Healed with Abreva. Pneumonia caused by SARS-CoV-2 [id number] 92845020 J12.82 Dx with covid-19 on 03/30, dx with pneumonia on 04/08.Treate d OP with PO antibiotic s, steroids, and cough medication s.Symptoms had resolved by 04/28.She has had the need for supplement al O2 over the recent daysContin ue Duonebs to PRN.SEE ABOVE... Physical deconditioning [id number] 9102 R68.89 Related to age, recent inpatient stay, and multiple comorbidit ies. Continue PT/OT/ST and monitor progress. Goal is for pt to return home with daughter. Continue PRN cathartics for constipati on per standing orders. Hypokalemia 31527324 E87 .6 Started supplement . Repeat lab on 06/11. Health Concerns Section Related Observation LastModified by Organization Detai ls LastModified Time None Recorded Concern Status LastModified by Organization Details LastModified Time None Recorded Advance Directives Directive None Recorded Payers Encounter Date Sequence Insurance Name Policy Number Policy Bartholomew Covered Member ID [id number] Member ID Guarantor Name 05/31/2024 1 [place] Maudeelder Milton [id number] Maudeelder Milton 05/31/2024 2 [employer] (MEDICARE SUPPLEMENT) Maudeelder Milton [id number] Maude Milton 06/01/2024 1 [place] Maudeelder Milton [id number] Maudeelder Milton 06/01/2024 2 [employer] OPTIONS (MEDICARE SUPPLEMENT) Maude Milton [id number] Maude Milton 06/03/2024 1 [place] Maudeelder Milton [id number] Maudeelder Milton 06/03/2024 2 [employer] OPTIONS (MEDICARE SUPPLEMENT) Maudeelder Miltno [id number] Maude Milton 06/08/2024 1 [place] Maude Yoan [id number] Maudeelder Milton 06/08/2024 2 [employer] OPTIONS (MEDICARE SUPPLEMENT) Maudeelder Milton [id number] Maude Milton 06/10/2024 1 [place]: [place] Maudeelder Milton [id number] Maude Milton 06/10/2024 2 [employer] OPTIONS (MEDICARE SUPPLEMENT) Maude Milton [id number] Maude Milton Notes Date Note Type Note Provider Name and Address Organization Details Recorded Time 05/31/2024 text/html f/u with the eulogio zurita today after an ER visit at [facility] 05/30 due to increased lethargy, hypoxia [...] The patient was, unfortunately, sent back from [facility] without appropriate records - nursing is trying [...] [place] [address] [place], [address], [facility] 06/03/2024 06:40:28 06/01/2024 text/html F/U [...] reports this dressing is to be changed [id number] per the surgeon, rather than the daily [...] patient today after an ER visit at [facility] 05/30 due to increased lethargy, hypoxia [...] The patient was, unfortunately, sent back from [facility] without appropriate records - nursing is trying [...] We do not have full records from [facility] yet but Anjelica does confirm that a [...] CGA, toileting with MOD. May Carrillo, EVONNE [address] [facility], [place], [address], [place] [facility] 06/03/2024 09:50:25 06/03/2024 text/html F/U [...] reports this dressing is to be changed [id number] per the surgeon, rather than the daily [...] concerns. VSS. Staff is without concerns, as well.---05/14/24e patient is sitting up in her W/C [...] patient today after an ER visit at [facility] 05/30 due to increased lethargy, hypoxia [...] The patient was, unfortunately, sent back from [facility] without appropriate records - nursing is trying [...] We do not have full records from [facility] yet but Anjelica does confirm that a [...] UB dressing with CGA, toileting with MOD. ---06/03/24Maude is seated in her w/c in her [...] back 01/08 impacting self-care tasks May Carrillo, EVONNE [address] [place], [address], [facility] 06/03/2024 16:06:29 06/08/2024 text/html F/U [...] reports this dressing is to be changed [id number] per the surgeon, rather than the daily [...] patient today after an ER visit at [facility] 05/30 due to increased lethargy, hypoxia [...] The patient was, unfortunately, sent back from [facility] without appropriate records - nursing is trying [...] We do not have full records from [facility] yet but Anjelica does confirm that a [...] increased time and cues. May Carrillo, EVONNE [address] [place], [address], [facility] 06/08/2024 17:21:03 06/10/2024 text/html F/U acute cholecystitis, T12 (new?) & [...] reports this dressing is to be changed [id number] per the surgeon, rather than the daily [...] concerns. VSS. Staff is without concerns, as well.---05/14/24e patient is sitting up in her W/C [...] patient today after an ER visit at [facility] 05/30 due to increased lethargy, hypoxia [...] The patient was, unfortunately, sent back from [facility] without appropriate records - nursing is trying [...] We do not have full records from [facility] yet but Anjelica does confirm that a [...] mobility supine to sit EOB with MOD, L1B dressing with MOD and UB dressing with [...] - corrected with increased time and cues. ---06/10/24Peggjennifer is seated in her w/c, doing well today, without concerns and reports her back pain is well-controlled. She is vague about her back pain, noting that it is across her entire back, rather than over her spine. She notes her appointment for cholangiogram went well yesterday and her daughter Jodi is still waiting for a phone call from Dr. Mckenzie's office with the plans moving forward. Maude notes that the drain site had gunk on it while at the office and they cleaned and changed it. I let her know that this has been present every day and is why we changed the dressing changes from [id number] to daily. In fact, she is noted to have yellow-brown drainage at the insertion site under the tegaderm they placed yesterday. Staff have not yet had a change to change the dressing today. She will likely be discharging home with her daughter on 06/13 and is without concerns regarding this at present. VSS. Staff is without concerns today. Per yesterday therapy notes: Patient ambulated 40 ft + 20 ft on level surfaces with a FWW, requiring CGA + wheelchair follow. Patient required cueing for upright posture. Patient performed sit to stands this morning with Dave, pt performed sit to stand and pivot transfers in the afternoon requiring CGA-SBA. Session split into 2 due to doctors appointment. May Carrillo, EVONNE [address] [place], [address], [facility] 06/10/2024 15:17:58 OBGyn Episode No OBEpisode recorded.
--- OUTSIDE RECORDS SUMMARY | 2024-06-12 19:10 | XMS_ITS | Continuity of Care Document ---
Author Organization [facility] Address [address] [place] [address] [place] [address] Phone Care Team Providers Care Sand Shoveler Name Role Phone [facility] Unavailable Unavail able Deysi Scherer Unavailable Unavailable Advance Directives Directive Yes / No Effective Date File Name No Information Encounters Encounter Description Practice Location Reason(s) For Visit Diagnoses Date Provider Providers Copied on Encounter [facility], [address] [place] [address] [address], [place], [place], [address], [place] tel:[phone] [facility] No Information 200 2 [facility] [employer] [address] [facility], [address], [place], [place], [address] , [place]. tel:[phone] Consulting Provider: Deysi Scherer, [address] [place] [address], [place], [address]. tel:[phone] Family History Family Member Type Diagnosis Age [...]
--- OUTSIDE RECORDS SUMMARY | 2024-06-12 19:10 | XMS_ITS | Continuity of Care Document ---
Author Organization [facility] Address [address] [place] [address] Phone Care Team Providers Care Help Desk Supervisor Name Role Phone Conversion MD, Doctor Unavailable [...] Diagnoses Date Provider Providers Copied on Encounter [facility], [address], [place], [place], [address] , tel: [phone] [facility] No Information 1 Conversion Doctor. [address] [facility], [place], [address], . [facility], [address], [place], [place], [address] , tel: [phone] [facility] PERIPHERAL VERTIGO NOSDIZZINESS AND GIDDINESS 3 Conversion Doctor. [address] [facility], [place], [address], [place]. [facility], [address], [place], [place], [address] , tel: [phone] [facility] DIFFUS CYSTIC MASTOPATHYCHRONIC BRONCHITIS NOS 3 Matt Bonilla. [address] [facility], [address], [place], [place], [address]. tel: [phone] [facility], [address], [place], [place], [address] , tel: [phone] [facility] COUGHMIXED HYPERLIPIDEMIA 3 Matt Bonilla. [address] [facility], [address], [place], [address]. tel: [phone] [facility], [address], [place], [place], [address] , tel: [phone] [facility] CHRONIC SINUSITIS NOS 3 Matt Bonilla. [address] [facility], [address], [place], [address]. tel: [phone] [facility], [address], [place], [place], [address] , [place] tel: [phone] [facility] JOINT PAIN-UNSPEC 2 Matt Bonilla. [address] [facility], [address], [place], [place], [address]. tel:[phone] [facility], [address], [place], [place], [address] , [place] tel: [phone] [facility] MASTODYNIA Apr-2 9-200 2 Matt Bonilla. [address] [facility], [address], [place], [place], [address]. tel: [phone] [facility], [address], [place], [place], [address] , [place] tel: [phone] [facility] OSTEOPOROSIS NOS Mar- 1-200 2 Matt Irene. [address] [facility], [address], [place], [place], [address]. tel: [phone] [facility], [address], [place], [place], [address] , [place] tel: [phone] [facility] ESOPHAGEAL REFLUX Sep- 0-200 1 Matt Bonilla. [address] [facility], [address], [place], [place], [address]. tel: [phone] [facility], [address], [place], [place], [address] , [place] tel: [phone] [facility] MYALGIA AND MYOSITIS NOSSCREEN MAL NEOP-CERVIX Sep- 7-200 1 Matt Bonilla. [address] [facility], [address], [place], [place], [address]. tel: [phone] [facility], [address], [place], [place], [address] , [place] tel: [phone] [facility] NONSPECIF SKIN ERUPT NEC July- 0-200 1 Matt Bonilla. [address] [facility], [address], [place], [place], [address]. tel: [phone] [facility], [address], [place], [place], [address] , [place] tel:[phone] [facility] ABN PAP SMEAR-OTH SITE Jose-2 2-200 0 Matt Bonilla. [address] [facility], [address], [place], [place], [address]. tel:[phone] [facility], [address], [place], [place], [address] , tel: [phone] [facility] BACKACHE NOSMENOPAUSAL DISORDER NOS 0-200 0 Matt Bonilla. [address] [facility], [address], [place], [place], [address]. tel:[phone] [facility], [address], [place], [place], [address] , tel: [phone] [facility] ABNORMAL WEIGHT GAINROUTINE MEDICAL EXAMALLERGY, UNSPECIFIED 3-200 0 Matt Bonilla. [address] [facility], [address], [place], [place], [address]. tel:[phone] Family History Family Member Type Diagnosis Age [...]
[2024-06-12 19:13] VITALS: BP 136/67; PULSE 69; RESP 16; O2SAT 99
[2024-06-12 19:30] LABS: Glucose Point of Care 115 mg/dl (65-105)
[2024-06-12 20:24] LABS: Alveolar/Arterial O2 Gradient 36.2 mmHg; Fractional Inspired Oxygen 21 %; HCO3 ABG 25.7 mEq/l (22.0-26.0); Oxygen Content ABG 13.1 %vol (16.0-22.0); Oxyhemoglobin 93.9 % THb (90.0-100.0); PCO2 ABG 36.5 mmHg (35.0-45.0); PO2 ABG 69.8 mmHg (80.0-100.0); PO2 FiO2 Ratio Arterial Blood 3.32 %; Total Hemoglobin 9.9 g/dL (12.0-18.0); pH ABG 7.465 (7.350-7.450)
[2024-06-12 20:25] LABS: Device ROOM AIR; Modified Allen's Test Pass; Site Drawn RIGHT RADIAL
[2024-06-12 20:54] LABS: Basophils Percent Auto 0.2 % (0.2-1.2); Eosinophils Absolute Auto 0.4 K/mm3 (0-0.3); Hematocrit 30.7 % (37.0-47.0); Hemoglobin 9.4 g/dL (12.0-15.0); Immature Granulocyte Absolute 0.04 K/mm3 (0.00-0.031); Immature Granulocyte Percent A 0.4 % (0-0.5); Lymphocytes Percent Auto 26.8 % (18.3-44.2); Mean Corpuscular HGB Conc 30.6 g/dl (32-36); Mean Corpuscular Volume 98.1 fl (80-100); Mean Platelet Volume 9.9 fl (7.4-10.4); Monocytes Absolute Auto 0.9 K/mm3 (0.1-0.6); Monocytes Percent Auto 9.9 % (2.6-8.5); Neutrophils Absolute Auto 5.3 K/mm3 (1.3-6.7); Neutrophils Percent Auto 58.7 % (45.5-73.1); Platelet Count Result 228 k/mm3 (150-375); Red Blood Count 3.13 M/mm3 (4.2-5.4); Red Cell Distribution Width 15.4 % (11.5-14.5)
[2024-06-12 21:05] LABS: Alanine Aminotransferase 13 U/L (6-35); Albumin Level 2.8 g/dL (3.5-5.1); Alkaline Phosphatase 120 U/L (38-126); Anion Gap 4 mmol/L (4-12); Aspartate Amino Transferase 19 U/L (14-36); Bilirubin,Total 0.7 mg/dL (0.2-1.3); Blood Urea Nitrogen 13 mg/dL (7-17); Calcium 8.5 mg/dL (8.4-10.2); Carbon Dioxide 29 mmol/L (22-30); Chloride 106 mmol/L (98-107); Estimated CRCL calculation 73 ml/min; Estimated Glomerular Filt Rate > 60; Glucose 103 mg/dL (65-110); INR 1.8; Lipase 48 U/L (23-300); Magnesium 1.3 mg/dL (1.6-2.3); Phosphorus 2.8 mg/dL (2.5-4.5); Potassium 4.4 mmol/L (3.4-5.0); Prothrombin Time 21.3 Seconds (11.1-14.7); Sodium 139 mmol/L (137-145)
[2024-06-12 21:07] LABS: Partial Thromboplastin Time 72.2 Seconds (22.3-36.8)
[2024-06-12 21:19] VITALS: PULSE 81
[2024-06-12 21:20] VITALS: O2SAT 100
[2024-06-12 21:21] VITALS: O2SAT 100
--- NOTE | 2024-06-12 21:40 | ED.GENADULT ---
HPI - General Adult General Chief complaint: Altered Mental Status Stated complaint: AMS Time Seen by Provider: 06/12/24 19:56 History of Present Illness HPI narrative: This is an 84-year-old female with history percutaneous cholecystectomy drain presenting for altered mental status. She was normal earlier today but then around 4:00 p.m. the staff noticed that she was more confused than usual. They reported garbled speech. She does not have weakness to any extremity. The patient was sent to the emergency department for evaluation in activated as a stroke. The patient herself has no complaints. The daughter has noticed that her percutaneous drain has been waking far more than it had been previously. Related Data Home Medications ?Medication ?Instructions ?Recorded ?Confirmed ?Last Taken ?Type ranolazine 500 mg tablet,extended 1,000 mg PO Q12H 05/02/20 05/26/24 05/14/23 History release,12 hr (Ranexa) nitroglycerin 0.4 mg sublingual 0.4 mg sublingual Q5M PRN chest 05/02/24 05/26/24 Unknown History tablet pain Allergies Allergy/AdvReac Type Severity Reaction Status Date / Time alendronate sodium Allergy Unknown Pt does Verified 05/26/24 12:49 remember levofloxacin Allergy Unknown Pt does Verified 05/26/24 12:49 not remember hydrocodone AdvReac Mild IF SHE Verified 05/26/24 12:49 TAKES 250 MG SHE IS OKAY, 500 MG SHE HAS NAUSEA AND V PMFSH Past Medical History Medical History Diarrhea Coronary artery disease Prior cardiac catheterization showed mild plaque in the LAD and 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 Patient of Dr. Bereket Olson. Arthritis Prediabetes Essential hypertension Gastroesophageal reflux disease Hypothyroidism Mixed hyperlipidemia Seasonal allergic rhinitis Vitamin B12 deficiency Vitamin D deficiency Surgical History Surgical History History of cardiac catheterization Results as above. History of colonoscopy with polypectomy History of appendectomy History of cataract extraction History of hysterectomy Family History Family History Father Lung cancer Sibling Breast cancer Social History Social History Social History: Surrogate medical decision maker: Jodi Lewis, daughter. Code status: Full code. Smoking status: Never smoker Second hand tobacco smoke exposure: No Alcohol intake: never Substance use: never Substance use type: does not use Do You Feel Safe in your Home?: Yes Lack of Transportation: No Lack of Food: Never True Current Housing: I Have Housing Concerned About Future Housing: No Difficulty Paying Gas/Electric Bills: No Difficulty Paying for Meds: No Currently Unemployed: No Education: High School Diploma/GED Difficulty w/ Childcare or Family Care: No Living arrangements: with family Additional living arrangements comments: The patient lives in [place] with her daughter Jodi. 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 Spiritual care concerns: No Agree to blood products: Yes Exam Narrative: APPEARANCE: No apparent distress. Head: atraumatic. EYES: EOMI, NOSE: Atraumatic NECK: Trachea midline RESPIRATORY: No increased rate of breathing CARDIOVASCULAR: RRR, ABDOMINAL: Percutaneous drain in place. Tenderness palpation right upper quadrant. MUSCULOSKELETAl: No obvious deformities NEURO: Alert. Cranial nerves 2-12 grossly intact. Sensation light touch, motor function cerebellar function intact for 4 extremities. Gait exam was normal. Patient has slow speech and some word-finding difficulty. SKIN:: Warm, dry. Normal color PSYCHIATRIC: Normal affect NIH Stroke Scale/Score (NIHSS) from [email or web address] on 06/13/2024 All calculations should be rechecked by clinician prior to use RESULT SUMMARY: 1 points NIH Stroke Scale INPUTS: 1A: Level of consciousness ?> 0 = Alert; keenly responsive 1B: Ask month and age ?> 0 = Both questions right 1C: 'Blink eyes' & 'squeeze hands' ?> 0 = Performs both tasks 2: Horizontal extraocular movements ?> 0 = Normal 3: Visual ayon ?> 0 = No visual loss 4: Facial palsy ?> 0 = Normal symmetry 5A: Left arm motor drift ?> 0 = No drift for 10 seconds 5B: Right arm motor drift ?> 0 = No drift for 10 seconds 6A: Left leg motor drift ?> 0 = No drift for 5 seconds 6B: Right leg motor drift ?> 0 = No drift for 5 seconds 7: Limb Ataxia ?> 0 = No ataxia 8: Sensation ?> 0 = Normal; no sensory loss 9: Language/aphasia ?> 1 = Mild-moderate aphasia: some obvious changes, without significant limitation 10: Dysarthria ?> 0 = Normal 11: Extinction/inattention ?> 0 = No abnormality Course Vital Signs Vital signs: Vital Signs Pulse Rate 69 06/12/24 19:13 Respiratory Rate 16 06/12/24 19:13 Blood Pressure 136/67 06/12/24 19:13 Pulse Oximetry 99 06/12/24 19:13 Oxygen Delivery Room Air 06/12/24 19:13 Pulse Rate 81 06/12/24 21:19 Respiratory Rate 16 06/12/24 19:13 Blood Pressure 136/67 06/12/24 19:13 Pulse Oximetry 100 06/12/24 21:21 Oxygen Delivery Nasal Cannula 06/12/24 21:21 Oxygen Flow Rate 2 06/12/24 21:21 Medical Decision Making MDM Narrative Medical decision making narrative: -Course: 84-year-old female presenting ED with confusion and some word-finding difficulty. NIH of 1. Last known 4:00 p.m.. Patient is on Eliquis is not a tPA candidate regardless. Symptoms are more consistent w/ delirium/encephalopathy as oppossed to a CVA. CT ordered of her abdomen pelvis to evaluate gallbladder. Perc drain has been dislodged and her gallbladder is swollen and edematous. Vital signs are stable and she is not septic. No elevation in liver enzymes. She has been started on a pip/tazo. We do not have IR available over the weekend. I discussed this with Dr. Chester who is television picture tube rebuilder. He said that he will consult on the case and figure out a plan of action in the morning. Patient will be admitted for further management. CT incidentally found a T12 compression fracture. Patient states she has been having some back pain lately but denies any recent falls. No neurologic deficits. Pain meds as needed. -DDX includes but is not limited to: Cholecystitis, Sepsis UTI Vital Signs Vital Signs: Vital Signs Pulse Rate 69 06/12/24 19:13 Respiratory Rate 16 06/12/24 19:13 Blood Pressure 136/67 06/12/24 19:13 Pulse Oximetry 99 06/12/24 19:13 Oxygen Delivery Room Air 06/12/24 19:13 Pulse Rate 81 06/12/24 21:19 Respiratory Rate 16 06/12/24 19:13 Blood Pressure 136/67 03/14/25 19:13 Pulse Oximetry 100 06/12/24 21:21 Oxygen Delivery Nasal Cannula 06/12/24 21:21 Oxygen Flow Rate 2 06/12/24 21:21 Lab Data 06/12/24 20:46 06/12/24 20:46 Labs: Lab Results 06/12/24 06/12/24 Range/Units 19:25 20:46 WBC 9.0 (4.5-10.0) K/mm3 RBC 3.13 L (4.2-5.4) M/mm3 Hgb 9.4 L (12.0-15.0) g/dL Hct 30.7 L (37.0-47.0) % MCV 98.1 (80-100) fl MCH 30.0 (26-34) pg MCHC 30.6 L (32-36) g/dl RDW 15.4 H (11.5-14.5) % Plt Count 228 (150-375) k/mm3 MPV 9.9 (7.4-10.4) fl Immature Gran % (Auto) 0.4 (0-0.5) % Neut % (Auto) 58.7 (45.5-73.1) % Lymph % (Auto) 26.8 (18.3-44.2) % Garland % (Auto) 9.9 H (2.6-8.5) % Eos % (Auto) 4.0 (0-4.4) % Baso % (Auto) 0.2 (0.2-1.2) % Lymph # (Auto) 2.40 (0.9-3.2) K/mm3 Garland # (Auto) 0.9 H (0.1-0.6) K/mm3 Eos # (Auto) 0.4 H (0-0.3) K/mm3 Baso # (Auto) 0.0 (0.0-0.1) K/mm3 Abs Immat Gran (auto) 0.04 H (0.00-0.031) K/mm3 Absolute Neuts (auto) 5.3 (1.3-6.7) K/mm3 Absolute Nucleated RBC 0.000 (0.0-0.012) K/mm3 Nucleated RBC % 0.0 (0.0-0.2) % PT 21.3 H (11.1-14.7) Seconds INR 1.8 APTT 72.2 H (22.3-36.8) Seconds Sodium 139 (137-145) mmol/L Potassium 4.4 (3.4-5.0) mmol/L Chloride 106 (98-107) mmol/L Carbon Dioxide 29 (22-30) mmol/L Anion Gap 4 (4-12) mmol/L BUN 13 (7-17) mg/dL Creatinine 0.46 L (0.7-1.0) mg/dL Estim Creat Clear Calc 73 ml/min Estimated GFR > 60 (59 - ) Glucose 103 (65-110) mg/dL POC Capillary Glucose 115 H (65-105) mg/dl Calcium 8.5 (8.4-10.2) mg/dL Phosphorus 2.8 (2.5-4.5) mg/dL Magnesium 1.3 L (1.6-2.3) mg/dL Total Bilirubin 0.7 (0.2-1.3) mg/dL AST 19 (14-36) U/L ALT 13 (6-35) U/L Alkaline Phosphatase 120 (38-126) U/L Total Protein 6.0 L (6.3-8.2) g/dL Albumin 2.8 L (3.5-5.1) g/dL Lipase 48 (23-300) U/L ABG Data ABG results: 06/12/24 20:15 Puncture Site Right radial ABG pH 7.465 H ABG pCO2 36.5 ABG pO2 69.8 L ABG PO2/FiO2 Ratio 3.32 ABG HCO3 25.7 ABG O2 Saturation 95.0 ABG O2 Content 13.1 L ABG Base Excess 2.0 A-a Gradient 36.2 Oxyhemoglobin 93.9 Total Hemoglobin 9.9 L O2 Delivery Device Room air O2 Liters/Min Not Reportable FiO2 21 Discharge Plan Discharge Clinical Impression: Cholecystitis, Altered mental status Patient Disposition: Still a Patient Condition: Stable Patient Language: Armenian Prescriptions: No Action ranolazine [Ranexa] 500 mg tablet extended release 12 hr 1,000 mg PO Q12H levothyroxine 25 mcg tablet 25 mcg PO DAILY Qty: 90 1RF (DME) egg crate mattress for chair See Rx Instructions .Route .MEDSUPPLY Qty: 1 0RF Rx Instructions: As directed (DME) duoderm dressing See Rx Instructions .Route .MEDSUPPLY Qty: 1 0RF Rx Instructions: As directed cyanocobalamin (vitamin B-12) 2,500 mcg Tablet 2,500 mcg PO QAM Qty: 90 0RF nitroglycerin 0.4 mg tablet, sublingual 0.4 mg sublingual Q5M PRN (Reason: chest pain) ipratropium-albuterol 0.5 mg-3 mg(2.5 mg base)/3 mL Solution For Nebulization 3 ml inhalation Q6HRT Qty: 30 0RF Eliquis 5 mg Tablet 5 mg PO Q12HR Qty: 60 0RF metoprolol succinate 200 mg tablet extended release 24 hr 200 mg PO DAILY Qty: 30 0RF cephalexin 500 mg capsule 500 mg PO Q12H 5 Days Qty: 10 0RF atorvastatin 40 mg tablet 40 mg PO DAILY Qty: 90 3RF omeprazole 20 mg capsule,delayed release(DR/EC) 40 mg PO DAILY Qty: 180 2RF Rx Instructions: before breakfast ondansetron HCl 4 mg tablet See Rx Instructions .ROUTE .COMPLEX Qty: 40 0RF Dose Instruction: TAKE 1 TABLET BY MOUTH TWICE DAILY NEEDED FOR NAUSEA Rx Instructions: TAKE 1 TABLET BY MOUTH TWICE DAILY NEEDED FOR NAUSEA amitriptyline 10 mg tablet 30 mg PO .HS Qty: 270 1RF amoxicillin-pot clavulanate 875-125 mg tablet 1 tablet PO Q12H Qty: 30 0RF Follow-up/Referrals: Milagros Haq MD [Primary Care Provider] -
--- OUTSIDE RECORDS SUMMARY | 2024-06-12 22:16 | XMS_ITS | Clinical Summary ---
Author Organization [facility] Address [address] [place] [address] Phone Care Team Providers Care Grocery Clerk Marking Name Role Phone Milagros Haq MD Primary Care Provider [phone] Allergies Active Allergy Reactions Criticality Noted Date [...] 9 Active nitroglycerin (NITROMIST) 400 mcg/spray Aerosol, [place] place 1 spray by translingual route onto [...] MD (General) Referring Provider: Milagros Haq MD [address] [place] [address] Other: Problem Noted Date Diagnosed Date Inversion [...] 2013 INFLUENZA VACCINE (#1) [address] [place] [address] MEDICARE [facility] [id number] [place] [address] Care Teams Grocery Clerk Marking Relationship Specialty Start Date End Date Milagros Haq MD [address] [place] [id number] PCP - General Family Practice 07/18/12
--- OUTSIDE RECORDS SUMMARY | 2024-06-12 22:16 | XMS_ITS | Clinical Summary ---
Author Organization [facility] Address [address] [place] [address] Care Team Providers Care Painting Worker Name Role Phone Unavailable Primary Care Provider Unavailabl e Encounters Date Type Department Care Team Description 05/21/2024 5:42 PM EMERGENCY TELECOMMUNICATIONS DISPATCHER - 05/21/2024 11:59 PM EMERGENCY TELECOMMUNICATIONS DISPATCHER Hospital Encounter [facility] [address] Diana Kunz DO Discharge Disposition: Home or Self Care (Routine Discharge) 05/21/2024 Orders Only [facility] [address] Diana Kunz DO from Last 3 Months [...] PRO-BRAIN NATRIURETIC PEPTIDE Routine 05/21/2024 2:29 PM EMERGENCY TELECOMMUNICATIONS DISPATCHER Anemia, unspecified Vitamin D insufficiency Acute diastolic heart failure (CMS/HCC HHS/HCC) CBC W/DIFF AUTOMATED Routine 05/21/2024 2:29 PM EMERGENCY TELECOMMUNICATIONS DISPATCHER Anemia, unspecified Vitamin D insufficiency Acute diastolic heart failure (CMS/HCC HHS/HCC) COMPREHENSIVE METABOLIC PANEL Routine 05/21/2024 2:29 PM EMERGENCY TELECOMMUNICATIONS DISPATCHER Anemia, unspecified Vitamin D insufficiency Acute diastolic heart failure (CMS/HCC HHS/HCC) from Last 3 Months Results * (ABNORMAL) PRO-BRAIN NATRIURETIC PEPTIDE (05/21/2024 2:29 PM EMERGENCY TELECOMMUNICATIONS DISPATCHER) PRO-B TYPE NATRIURETIC PEPTIDE 1,336(H) <450 PG/ML 05/21/2024 6:22 PM EMERGENCY TELECOMMUNICATIONS DISPATCHER [facility] Comment: CUT POINTS ESTABLISHED BY [...] 72% FOR ACUTE CHF. 05/21/2024 2:29 PM EMERGENCY TELECOMMUNICATIONS DISPATCHER us Diana Kunz DO LABORATORY Final Resu lt [facility] [address] [place] [address], [place] [phone] * (ABNORMAL) COMPREHENSIVE METABOLIC PANEL (05/21/2024 2:29 PM EMERGENCY TELECOMMUNICATIONS DISPATCHER) GLUCOSE 126(H) 70 - 99 MG/DL 05/21/2024 6:22 PM [facility] BUN 14 7 - 18 MG/DL 05/21/2024 6:22 PM [facility] CREATININE S/P/B 0.70 0.55 - 1.02 MG/DL 05/21/2024 6:22 PM [facility] SODIUM S/P/B 137 136 - 145 MMOL/L 05/21/2024 6:22 PM [facility] POTASSIUM S/P/B 3.6 3.5 - 5.1 MMOL/L 05/21/2024 6:22 PM [facility] CHLORIDE S/P/B 105 97 - 115 MMOL/L 05/21/2024 6:22 PM [facility] CO2 30.3 21 - 32 MMOL/L 05/21/2024 6:22 PM [facility] CALCIUM S/P/B 9.1 8.5 - 10.1 MG/DL 05/21/2024 6:22 PM [facility] BILIRUBIN TOTAL S/P/B 0.4 0.2 - 1.2 MG/DL 05/21/2024 6:22 PM [facility] Comment: THIS ASSAY IS NOT RECOMMENDED FOR PATIENTS UNDERGOING TREATMENT WITH ELTROMBOPAG DUE TO THE POTENTIAL FOR FALSELY ELEVATED RESULTS. TOTAL PROTEIN S/P/B 6.3(L) 6.4 - 8.2 G/DL 05/21/2024 6:22 PM [facility] ALBUMIN S/P/B 2.6(L) 3.4 - 5.0 G/DL 05/21/2024 6:22 PM [facility] AST 13(L) 15 - 37 U/L 05/21/2024 6:22 PM [facility] ALT 15 14 - 55 U/L 05/21/2024 6:22 PM [facility] ALKALINE PHOSPHATASE S/P/B 83 50 - 136 U/L 05/21/2024 6:22 PM EMERGENCY TELECOMMUNICATIONS DISPATCHER [facility] ANION GAP 1.7(L) 2 - 10 MMOL/L 05/21/2024 6:22 PM [facility] BUN CREATININE RATIO 20.0 6 - 26 05/21/2024 6:22 PM [facility] A/G RATIO 0.7(L) 1.0 - 2.0 RATIO 05/21/2024 6:22 PM [facility] GFR ESTIMATE 84(L) >90 ML/MIN/1.7 3 M2 05/21/2024 6:22 PM [facility] Comment: NOTE: eGFR is not calculated for patients <18 years of age or gender unknown. This is an estimated GFR calculation using the new CKD EPI creatinine equation without race and so does not require a correction factor for race. This estimated GFR should not be used for calculating drug doses. 05/21/2024 2:29 PM EMERGENCY TELECOMMUNICATIONS DISPATCHER us Diana Kunz DO LABORATORY Final Resu lt [facility] [address] [place] [address], [place] [phone] * (ABNORMAL) CBC W/DIFF AUTOMATED (05/21/2024 2:29 PM EMERGENCY TELECOMMUNICATIONS DISPATCHER) WBC 4.17(L) 4.5 - 11.0 x10'3/uL 05/21/2024 5:57 PM EMERGENCY TELECOMMUNICATIONS DISPATCHER [facility] RBC 3.31(L) 4.20 - 5.40 x10'6/uL 05/21/2024 5:57 PM EMERGENCY TELECOMMUNICATIONS DISPATCHER [facility] HGB 9.8(L) 12.0 - 16.0 G/DL 05/21/2024 5:57 PM EMERGENCY TELECOMMUNICATIONS DISPATCHER [facility] HCT 33.1(L) 38.0 - 48.0 % 05/21/2024 5:57 PM EMERGENCY TELECOMMUNICATIONS DISPATCHER [facility] MCV 100.0(H) 81.0 - 99.0 FL 05/21/2024 5:57 PM EMERGENCY TELECOMMUNICATIONS DISPATCHER [facility] MCH 29.6 27.0 - 31.0 PG 05/21/2024 5:57 PM [facility] MCHC 29.6(L) 32.0 - 36.0 G/DL 05/21/2024 5:57 PM EMERGENCY TELECOMMUNICATIONS DISPATCHER [facility] RDW 14.6(H) 11.5 - 14.5 % 05/21/2024 5:57 PM [facility] PLT 233 130 - 400 x10'3/uL 05/21/2024 5:57 PM [facility] MPV 11.0 9.3 - 12.2 FL 05/21/2024 5:57 PM [facility] DIFFERENTIAL TYPE AUTOMATED DIFFERENTIAL 05/21/2024 5:57 PM EMERGENCY TELECOMMUNICATIONS DISPATCHER [facility] NEUTROPHILS % 53.2 % 05/21/2024 5:57 PM [facility] LYMPHOCYTES % 34.1 % 05/21/2024 5:57 PM [facility] MONOCYTES % 10.1 % 05/21/2024 5:57 PM EMERGENCY TELECOMMUNICATIONS DISPATCHER [facility] EOSINOPHILS 1.9 % 05/21/2024 5:57 PM EMERGENCY TELECOMMUNICATIONS DISPATCHER [facility] BASOPHILS 0.5 % 05/21/2024 5:57 PM [facility] IMMATURE GRANS % 0.2 % 05/21/19 5:57 PM [facility] ABS. NEUTROPHILS 2.22 1.80 - 7.70 x10'3/uL 05/21/2024 5:57 PM EMERGENCY TELECOMMUNICATIONS DISPATCHER [facility] ABS. LYMPHOCYTES 1.42 1.00 - 4.80 x10'3/uL 05/21/2024 5:57 PM EMERGENCY TELECOMMUNICATIONS DISPATCHER [facility] ABS. MONOCYTES 0.42 0.24 - 0.86 x10'3/uL 05/21/2024 5:57 PM EMERGENCY TELECOMMUNICATIONS DISPATCHER [facility] ABS. EOSINOPHILS 0.08 0.04 - 0.36 x10'3/uL 05/21/2024 5:57 PM EMERGENCY TELECOMMUNICATIONS DISPATCHER [facility] ABS. BASOPHILS 0.02 0.01 - 0.08 x10'3/uL 05/21/2024 5:57 PM EMERGENCY TELECOMMUNICATIONS DISPATCHER [facility] ABS. IMMATURE GRANULOCYTES 0.01 0.00 - 0.49 x10'3/uL 05/21/2024 5:57 PM EMERGENCY TELECOMMUNICATIONS DISPATCHER [facility] 05/21/2024 2:29 PM EMERGENCY TELECOMMUNICATIONS DISPATCHER us Diana Kunz DO LABORATORY Final Resu lt [facility] [address] [place] [address], from Last 3 Months Insurance [facility]
--- OUTSIDE RECORDS SUMMARY | 2024-06-12 22:16 | XMS_ITS | Continuity of Care Document ---
Author Organization [facility] Address [address] [place] [address] [place] [address] Phone Care Team Providers Care Immunology Teacher Name Role Phone [facility] [employer] Unavailable Unavail able Deysi Scherer Unavailable Unavailable Advance Directives Directive Yes / No Effective Date File Name No Information Encounters Encounter Description Practice Location Reason(s) For Visit Diagnoses Date Provider Providers Copied on Encounter [facility], [address] [place] [address] [address], [place], [place], [id number], [place] tel:[phone] SEC [facility] No Information 200 2 Optical Shop [employer] [address] [facility], [address], [place], [place], [address] , [place]. tel:[phone] Consulting Provider: Deysi Scherer, [address] [place] [address], [place], [address]. tel:[phone] Family History Family Member Type Diagnosis Age [...]
--- OUTSIDE RECORDS SUMMARY | 2024-06-12 22:17 | XMS_ITS | Continuity of Care Document ---
Author Organization [facility] Address [address] [place] [address] Phone Care Team Providers Care Semiconductor Development Technician Name Role Phone Conversion MD, Doctor Unavailable [...] Diagnoses Date Provider Providers Copied on Encounter [facility], [address], [place], [place], [id number] , tel: [phone] [facility] No Information 1 Conversion Doctor. [address] [facility], [place], [address], . [employer], [address], [place], [place], [address] , tel: [phone] [facility] PERIPHERAL VERTIGO NOSDIZZINESS AND GIDDINESS 3 Conversion Doctor. [address] [facility], [place], [address], [place]. [facility], [address], [place], [place], [address] , tel: [phone] [facility] DIFFUS CYSTIC MASTOPATHYCHRONIC BRONCHITIS NOS 3 Matt Bonilla. [address] [facility], [address], [place], [place], [address]. tel: [phone] [facility], [address], [place], [place], [address] , tel: [phone] [facility] COUGHMIXED HYPERLIPIDEMIA 3 Matt Bonilla. [address] [facility], [address], [place], [id number]. tel: [phone] [facility], [address], [place], [place], [address] , tel: [phone] [facility] CHRONIC SINUSITIS NOS 3 Matt Bonilla. [address] [facility], [address], [place], [address]. tel: [phone] [facility], [address], [place], [place], [address] , [place] tel: [phone] [facility] JOINT PAIN-UNSPEC 2 Matt Bonilla. [address] [facility], [address], [place], [place], [address]. tel:[phone] [facility], [address], [place], [place], [address] , [place] tel: [phone] [facility] MASTODYNIA Apr-2 9-200 2 Matt Bonilla. [address] [facility], [address], [place], [place], [address]. tel: [phone] [facility], [address], [place], [place], [address] , [place] tel: [phone] [facility] OSTEOPOROSIS NOS Mar- 1-200 2 Matt Irene. [address] [facility], [address], [place], [place], [address]. tel: [phone] [employer], [address], [place], [place], [address] , [place] tel: [phone] [facility] ESOPHAGEAL REFLUX Sep- 0-200 1 Matt Bonilla. [address] [facility], [address], [place], [place], [address]. tel: [phone] [facility], [address], [place], [place], [address] , [place] tel: [phone] [facility] MYALGIA AND MYOSITIS NOSSCREEN MAL NEOP-CERVIX Sep- 7-200 1 Matt Bonilla. [address] [facility], [address], [place], [place], [address]. tel: [phone] [employer] [facility], [address], [place], [place], [address] , [place] tel: [phone] [facility] NONSPECIF SKIN ERUPT NEC July- 0-200 1 Matt Bonilla. [address] [facility], [address], [place], [place], [address]. tel: [phone] [facility], [address], [place], [place], [address] , [place] tel:[phone] [facility] ABN PAP SMEAR-OTH SITE Jose-2 2-200 0 Matt Bonilla. [address] [facility], [address], [place], [place], [address]. tel:[phone] [facility], [address], [place], [place], [address] , tel: [phone] [facility] BACKACHE NOSMENOPAUSAL DISORDER NOS 0-200 0 Matt Bonilla. [address] [facility], [address], [place], [place], [address]. tel:[phone] [facility], [address], [place], [place], [address] , tel: [phone] [facility] ABNORMAL WEIGHT GAINROUTINE MEDICAL EXAMALLERGY, UNSPECIFIED 3-200 0 Matt Bonilla. [address] [facility], [address], [place], [place], [address]. tel:[phone] Family History Family Member Type Diagnosis Age At Onset No Information Payers Payer name Insurance type Covered libertarian ID Authoriza tion(s) No Information Social History [...]
[2024-06-12 23:16] VITALS: BP 122/64; PULSE 92; RESP 15; O2SAT 97
[2024-06-12 23:36] LABS: Lactic Acid Reflex 1.5 mmol/L (0.7-2.0)
[2024-06-12 23:55] LABS: Influenza A QL RT-PCR Negative (Negative); Influenza B QL RT-PCR Negative (Negative); RSV RNA, RT-PCR Negative (Negative); SARS-CoV-2 RNA PCR Negative (Negative)
[2024-06-13] VITALS (14 sets, daily range): BP systolic 97–129; BP diastolic 53–77; PULSE 80–110; RESP 17–25; TEMP 36.4–36.9; O2SAT 92–100; BMI 29.5
[2024-06-13] MEDS: PIPERACILLN/TAZ 3.375GM/NS50ML 3.375 GM/50 ML BAG IVPB ×5 (01:26→23:42)
[2024-06-13 01:32] LABS: Add Urine Microscopic? NO; Appearance Urine Clear (Clear); Bilirubin Urine Negative (Negative); Blood Urine Negative (Negative); Color Urine Yellow (Yellow); Glucose Urine UA Negative (Negative); Ketones Urine Negative (Negative); Leukocyte Esterase Ur Negative LEU/UL (Negative); Nitrate Urine Negative (Negative); Protein Urine Negative (Negative); Specific Grav Ur > 1.045 (1.001-1.035); Urobilinogen Urine 0.2 mg/dL (<2.0); pH Urine 7.5 (5.0-9.0)
[2024-06-13] MEDS: MAGNESIUM SULF 2 GM/WATER 50ML 2 GM/50 ML BAG IVPB (02:25)
[2024-06-13] MEDS: ONDANSETRON INJ 4 MG/2 ML VIAL IV PUSH (02:54)
[2024-06-13] MEDS: SODIUM CHLORIDE 0.9% IV 1,000 ML 999 ML IV CONT (02:55)
--- NOTE | 2024-06-13 07:18 | P.HP_ITS ---
H&P: HPI History of Present Illness Date/Time: 06/13/24 07:18 Chief Complaint: ams Narrative: 84-year-old female with CAD, HTN and pre-DM,percutaneous cholecystectomy drain presenting for altered mental status. She was her base self earlier yesterday but later, around 4:00 p.m. the staff noticed that she was more confused. They reported garbled speech. no one sided weakness. The patient was sent to the emergency department for evaluation of a stroke. Of note, pt was seen per general surgery, DR Mckenzie on 05/26 for recent hospitalization 05/02-05/11 for sepsis. She was s/p cholecystostomy tube placement 05/06/2024. Bile was sent for aerobic anaerobic culture while she was hospitalized which is growing g variable bacilli. She was on IV Zosyn which has been switched to oral Augmentin- she completed the course of antibiotics. She was also in RVR- card drip. Metoprolol was switched to long acting. in ED: CT abd/pelv: Perc drain has been dislodged and her gallbladder is swollen and edematous. liver enzymes- stable. VS stable. wbc 9, hg/hct- 9.4/30.7. She has been started on IV zosyn. NO IR available over the weekend, ER MD discussed with Dr. Chester who is senior medical transcriptionist and agreed to consult on the case and figure out a plan of action in the morning. CT incidentally found a T12 compression fracture. Patient had been having some back pain lately. NO reported injury, falls/trauma. No neurologic deficits. Pt is seen and examined. Daughter at the bedside and provides majority of history. Pt is calm and comfortable. IV fluids, zosyn IV and waiting for surgery consult. 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 Patient of Dr. Bereket Olson. Arthritis Prediabetes Essential hypertension Gastroesophageal reflux disease Hypothyroidism Mixed hyperlipidemia Seasonal allergic rhinitis Vitamin B12 deficiency Vitamin D deficiency Surgical History Surgical History History of cardiac catheterization Results as above. History of colonoscopy with polypectomy History of appendectomy History of cataract extraction History of hysterectomy Family History Family History Father Lung cancer Sibling Breast cancer Social History Social History Social History: Surrogate medical decision maker: Jodi Lewis, daughter. Code status: Full code. Smoking status: Never smoker Second hand tobacco smoke exposure: No Alcohol intake: never Substance use: never Substance use type: does not use Do You Feel Safe in your Home?: Yes Lack of Transportation: No Lack of Food: Never True Current Housing: I Have Housing Concerned About Future Housing: No Difficulty Paying Gas/Electric Bills: No Difficulty Paying for Meds: No Currently Unemployed: No Education: High School Diploma/GED Difficulty w/ Childcare or Family Care: No Living arrangements: with family Additional living arrangements comments: The patient lives [place] with her daughter Jodi. 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 Spiritual care concerns: No Agree to blood products: Yes Meds Home Medications and Allergies Home Medications ?Medication ?Instructions ?Recorded ?Confirmed ?Type ranolazine 500 mg tablet,extended 1,000 mg PO Q12H 05/02/20 05/26/24 History release,12 hr (Ranexa) cyanocobalamin (vitamin B-12) 2,500 mcg PO QAM #90 tabs 01/10/23 05/26/24 Rx 2,500 mcg tablet levothyroxine 25 mcg tablet 25 mcg PO DAILY #90 tabs 03/20/23 05/26/24 Rx atorvastatin 40 mg tablet 40 mg PO DAILY #90 tabs 07/09/23 05/26/24 Rx omeprazole 20 mg capsule,delayed 40 mg (2 x 20 mg) PO DAILY #180 08/28/23 05/26/24 Rx release caps ondansetron HCl 4 mg tablet See Rx Instructions .Route 12/03/23 05/26/24 Rx .COMPLEX #40 ea amitriptyline 10 mg tablet 30 mg (3 x 10 mg) PO .HS #270 tabs 12/28/23 05/26/24 Rx duoderm dressing #1 ea 04/27/24 05/26/24 Rx egg crate mattress for chair #1 ea 04/27/24 05/26/24 Rx nitroglycerin 0.4 mg sublingual 0.4 mg sublingual Q5M PRN chest 05/02/24 05/26/24 History tablet pain apixaban 5 mg tablet (Eliquis) 5 mg PO Q12HR #60 tabs 05/11/24 05/26/24 Rx ipratropium 0.5 mg-albuterol 3 mg 3 ml inhalation Q6HRT #30 mL 05/11/24 05/26/24 Rx (2.5 mg base)/3 mL nebulization soln metoprolol succinate 200 mg 200 mg PO DAILY #30 tabs 05/11/24 05/26/24 Rx tablet,extended release 24 hr cephalexin 500 mg capsule 500 mg PO Q12H 5 days #10 caps 05/30/24 Rx amoxicillin 875 mg-potassium 1 tablet PO Q12H #30 tabs 06/10/24 Rx clavulanate 125 mg tablet Allergies Allergy/AdvReac Type Severity Reaction Status Date / Time alendronate sodium Allergy Unknown Pt does Verified 05/26/24 12:49 remember levofloxacin Allergy Unknown Pt does Verified 05/26/24 12:49 not remember hydrocodone AdvReac Mild IF SHE Verified 05/26/24 12:49 TAKES 250 MG SHE IS OKAY, 500 MG SHE HAS NAUSEA AND V Vital Signs Vital Signs - 24 hr 06/12/24 19:13 06/12/24 21:19 06/12/24 21:20 Pulse Rate 69 81 Respiratory Rate 16 Blood Pressure 136/67 Pulse Oximetry 99 100 Oxygen Delivery Room Air Nasal Cannula Oxygen Flow Rate 2 06/12/24 21:21 06/12/24 23:16 06/13/24 01:33 Pulse Rate 92 86 Respiratory Rate 15 25 H Blood Pressure 122/64 129/73 Pulse Oximetry 100 97 98 Oxygen Delivery Nasal Cannula Oxygen Flow Rate 2 06/13/24 03:31 06/13/24 05:53 06/13/24 07:01 Pulse Rate 110 H 101 H 101 H Respiratory Rate 20 24 H 24 H Blood Pressure 106/77 106/71 106/71 Pulse Oximetry 92 97 97 Oxygen Delivery Oxygen Flow Rate Exam Narrative: drain in place to rt abd. dressing c/d/i Const: General: comfortable H&P: Results Labs Labs: Short CBC 06/12/24 Range/Units 20:46 WBC 9.0 (4.5-10.0) K/mm3 Hgb 9.4 L (12.0-15.0) g/dL Hct 30.7 L (37.0-47.0) % Plt Count 228 (150-375) k/mm3 BMP 06/12/24 20:46 Sodium 139 Potassium 4.4 Chloride 106 Carbon Dioxide 29 BUN 13 Creatinine 0.46 L Glucose 103 Calcium 8.5 Liver Function 06/12/24 Range/Units 20:46 Total Bilirubin 0.7 (0.2-1.3) mg/dL AST 19 (14-36) U/L ALT 13 (6-35) U/L Alkaline Phosphatase 120 (38-126) U/L Albumin 2.8 L (3.5-5.1) g/dL Urine 06/13/24 Range/Units 01:18 Urine Color Yellow (Yellow) Urine Appearance Clear (Clear) Urine pH 7.5 (5.0-9.0) Ur Specific [place] > 1.045 H (1.001-1.035) Urine Protein Negative (Negative) mg/dL Urine Glucose (UA) Negative (Negative) mg/dL Assessment and Plan Assessment and plan (1) Essential hypertension: Code(s): I10 - Essential (primary) hypertension Status: Acute (2) Coronary artery disease involving [place] coronary artery of [place] heart: Code(s): I25.10 - Atherosclerotic heart disease of [place] coronary artery without angina pectoris Status: Acute (3) Atrial fibrillation: Qualifiers: Atrial fibrillation type: unspecified Qualified Code(s): I48.91 - Unspecified atrial fibrillation Code(s): I48.91 - Unspecified atrial fibrillation Status: Acute (4) Mixed hyperlipidemia: Code(s): E78.2 - Mixed hyperlipidemia Status: Acute (5) Prediabetes: Code(s): R73.03 - Prediabetes Status: Acute (6) Hypothyroidism: Code(s): E03.9 - Hypothyroidism, unspecified Status: Acute (7) Gastroesophageal reflux disease: Code(s): K21.9 - Gastro-esophageal reflux disease without esophagitis Status: Acute (8) Acute cholecystitis: Code(s): K81.0 - Acute cholecystitis Status: Acute (9) Chronic low back pain with sciatica: Code(s): M54.40 - Lumbago with sciatica, unspecified side; G89.29 - Other chronic pain Status: Acute (10) Altered mental status: Code(s): R41.82 - Altered mental status, unspecified Status: Acute Plan 84-year-old female presenting ED with confusion and difficulty finding words. She had complicated hospitalization for sepsis due to acute cholecystitis DR Mckenzie 05/02-05/11. she completed zosyn, transitioned to Augmentin and discharged- had her outpt f/u with complains of nausea and vomitting. NIH of 1. Last known well 4:00 p.m. Patient is on Eliquis is not a tPA candidate Symptoms are more consistent w/ delirium/encephalopathy vs CVA. no neuro deficit. CT ordered of her abdomen pelvis to evaluate gallbladder. Perc drain has been dislodged and her gallbladder is swollen and edematous. Her liver enzymes stable. She has been started on zosyn 3.375 q6h- 06/13/24 at 0030. We do not have IR available over the weekend. ER MD discussed this with Dr. Chester who will consult on the case and figure out a plan of action in the morning. Blood cultures collected and pending Urine is collected- follow cultures Incidental finding on CT- T12 compression fracture. No neurologic deficits. Pain meds as needed. Pain mngmnt, nausea control. Once med list is updated- we will continue her eliquis and metoprolol for afib. Continue other chronic meds: levothyroxine, omeprazole, atorvastatin once med list is completed. Pt is DNR. Quality VTE Prophylaxis VTE prophylaxis: pharmacologic ordered Hospitalist [facility] Advance Care Plan I have confirmed that the patient's Advanced Care Plan is present, code status is documented, or surrogate decision maker is listed in patient medical record.: Yes Medication Reconciliation I have utilized all available resources to obtain, update and review the patients current medications (includes all prescriptions, OTC, herbals, cannabis, and nutritional supplements).: Yes
--- NOTE | 2024-06-13 07:37 | ADMIMU ---
This patient, Maude Milton, was admitted to IMU status, and placed in Intensive Care Unit-11. Patient/family oriented to hospital policies and general routines including ID bracelet, bed and alarms, visiting hours, pain management, procedures, bathroom and other care routines, personal items, smoking policy, room service/diet, and visiting hours. Valuables list has been completed. Information on how to activate the Rapid Response Team has been discussed. Patient/Family are encouraged to report perceived risks to care and to ask questions if they do not understand what they are told or what they should do.
--- NOTE | 2024-06-13 09:42 | PC.NURSE ---
Patient bladder scanned at 0942 for complaints of abdominal fullness and need to urinate. Total of 318 mls of residual urine found in bladder. Patient encouraged to void. Purewick placed on patient to assess non-invasive output. RN to monitor output and re-evaluate if bladder distension persists.
[2024-06-13] MEDS: SODIUM CHLORIDE 0.9% IV 1,000 ML 100 ML IV CONT (09:58)
--- NOTE | 2024-06-13 11:08 | ADMGEN ---
This patient, Maude Milton, was admitted to Intensive Care Unit-11 at 0650. Patient/family oriented to hospital policies and general routines including ID bracelet, bed and alarms, visiting hours, pain management, procedures, bathroom and other care routines, personal items, smoking policy, room service/diet, and visiting hours. Information on how to activate the Rapid Response Team has been discussed. Patient/Family are encouraged to report perceived risks to care and to ask questions if they do not understand what they are told or what they should do.
[2024-06-13 12:21] LABS: Glucose Point of Care 93 mg/dl (65-105)
--- NOTE | 2024-06-13 17:32 | WPDCN ---
Assessment and Plan Assessment and plan (1) Cholecystitis: Code(s): K81.9 - Cholecystitis, unspecified Status: Acute Assessment and Plan: The patient had obstruction of the cystic duct on recent cholecystostomy tube cholangiogram. The cholecystostomy tube has now dislodged although the timing of that the cholecystostomy tube pulling out the gallbladder is unknown. She was brought to the emergency room due to mental status changes and stroke was worked up and ruled out. She may have cholecystitis causing this picture. No tachycardia no hypotension. White blood cell count is normal. Liver enzymes are normal as well. Continue with IV antibiotics. We will keep her NPO except for some ice chips. Expect to place another cholecystostomy tube on Saturday when the radiologist was available in the hospital. If she deteriorates in any way that she will need transfer to a tertiary care facility in [place] to place a cholecystostomy tube. She is a high risk poor surgical candidate. HPI Data of Consult Date/Time: 06/13/24 17:32 Requesting Physician: Kathrine Gorman DO Primary Care Provider: Milagros Haq MD Consult Narrative Reason for consult: Abnormal gallbladder imaging, displaced cholecystostomy tube Narrative: Maude Milton is a 84 year old female who was admitted to our service and be admitted to [facility] last month. She at that time appeared to have acute cholecystitis but she was very poor surgical candidate with high perioperative morbidity mortality risk. Subsequently a cholecystostomy tube was placed percutaneously under image guidance to drain the gallbladder. She improved and was discharged from the hospital. She has been in a care facility since that time. Last evening workers at the care facility note is that the patient was less responsive and seen have garbled speech. It was thought she may be having a stroke and so she was sent to the [facility] Emergency Room. Workup for stroke was negative. However imaging with a CT scan showed a dilated gallbladder with displacement of the cholecystostomy to outside the lumen of the gallbladder. There seemed to be mild extrinsic compression onto the duodenum due to the dilated gallbladder. There was some pericholecystic stranding consistent with some degree of acute/chronic cholecystitis. White blood cell count is normal. Liver enzymes are normal. Patient had previous cholecystostomy cholangiogram done on June 09, 2024 showing continued obstruction of the cystic duct and no dye getting into the common bile duct. Patient was admitted to the IMU. She is currently resting comfortably does complain of some right upper quadrant pain. She has no tachycardia and no hypotension. Review of Systems Review of Systems: The remainder of the review of systems to include constitutional, HEENT, cardiovascular, respiratory, GI, , integumentary, musculoskeletal, endocrine, immunologic, hematologic, psychiatric, and neurologic are all negative except for which is mentioned above in the HPI. 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 Patient of Dr. Bereket Olson. Arthritis Prediabetes Essential hypertension Gastroesophageal reflux disease Hypothyroidism Mixed hyperlipidemia Seasonal allergic rhinitis Vitamin B12 deficiency Vitamin D deficiency Surgical History Surgical History History of cardiac catheterization Results as above. History of colonoscopy with polypectomy History of appendectomy History of cataract extraction History of hysterectomy Family History Family History Father Lung cancer Sibling Breast cancer Social History Social History Social History: Surrogate medical decision maker: Jodi Lewis, daughter. Code status: Full code. Smoking status: Never smoker Second hand tobacco smoke exposure: No Alcohol intake: never Substance use: never Substance use type: does not use Do You Feel Safe in your Home?: Yes Lack of Transportation: No Lack of Food: Never True Current Housing: I Have Housing Concerned About Future Housing: No Difficulty Paying Gas/Electric Bills: No Difficulty Paying for Meds: No Currently Unemployed: No Education: High School Diploma/GED Difficulty w/ Childcare or Family Care: No Living arrangements: with family Additional living arrangements comments: The patient lives in [place] with her daughter Jodi. 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 Spiritual care concerns: No Agree to blood products: Yes Meds Home Medications and Allergies Home Medications ?Medication ?Instructions ?Recorded ?Confirmed ?Type cyanocobalamin (vitamin B-12) 2,500 mcg PO QAM #90 tabs 01/10/23 06/13/24 Rx 2,500 mcg tablet levothyroxine 25 mcg tablet 25 mcg PO DAILY #90 tabs 03/20/23 06/13/24 Rx atorvastatin 40 mg tablet 40 mg PO DAILY #90 tabs 07/09/23 06/13/24 Rx omeprazole 20 mg capsule,delayed 40 mg (2 x 20 mg) PO DAILY #180 08/28/23 06/13/24 Rx release caps ondansetron HCl 4 mg tablet See Rx Instructions .Route 12/03/23 06/13/24 Rx .COMPLEX #40 ea duoderm dressing #1 ea 04/27/24 05/26/24 Rx egg crate mattress for chair #1 ea 04/27/24 05/26/24 Rx nitroglycerin 0.4 mg sublingual 0.4 mg sublingual Q5M PRN chest 05/02/24 06/13/24 History tablet pain apixaban 5 mg tablet (Eliquis) 5 mg PO Q12HR #60 tabs 05/11/24 06/13/24 Rx ipratropium 0.5 mg-albuterol 3 mg 3 ml inhalation Q6HRT #30 mL 05/11/24 06/13/24 Rx (2.5 mg base)/3 mL nebulization soln metoprolol succinate 200 mg 200 mg PO DAILY #30 tabs 05/11/24 06/13/24 Rx tablet,extended release 24 hr amoxicillin 875 mg-potassium 1 tablet PO Q12H #30 tabs 06/10/24 06/13/24 Rx clavulanate 125 mg tablet acetaminophen 500 mg capsule 1,000 mg PO TID PRN pain 06/13/24 06/13/24 History amitriptyline 10 mg tablet 20 mg PO .HS 06/13/24 06/13/24 History celecoxib 100 mg capsule (Celebrex) 100 mg PO BID 06/13/24 06/13/24 History lidocaine 5 % topical patch 1 patch topical DAILY pain 06/13/24 06/13/24 History potassium chloride 20 mEq 40 meq PO DAILY 06/13/24 06/13/24 History tablet,extended release(part/cryst) tamsulosin 0.4 mg capsule 0.4 mg PO DAILY urinary retention 06/13/24 06/13/24 History Allergies Allergy/AdvReac Type Severity Reaction Status Date / Time alendronate sodium Allergy Unknown Pt does Verified 05/26/24 12:49 remember levofloxacin Allergy Unknown Pt does Verified 05/26/24 12:49 not remember hydrocodone AdvReac Mild IF SHE Verified 05/26/24 12:49 TAKES 250 MG SHE IS OKAY, 500 MG SHE HAS NAUSEA AND V Vital Signs Vital Signs - 24 hr 06/12/24 19:13 06/12/24 21:19 06/12/24 21:20 Temperature Pulse Rate 69 81 Respiratory Rate 16 Blood Pressure 136/67 Pulse Oximetry 99 100 Oxygen Delivery Room Air Nasal Cannula Oxygen Flow Rate 2 Fraction of Inspired Oxygen 06/12/24 21:21 06/12/24 23:16 06/13/24 01:33 Temperature Pulse Rate 92 86 Respiratory Rate 15 25 H Blood Pressure 122/64 129/73 Pulse Oximetry 100 97 98 Oxygen Delivery Nasal Cannula Oxygen Flow Rate 2 Fraction of Inspired Oxygen 06/13/24 03:31 06/13/24 05:53 06/13/24 07:01 Temperature Pulse Rate 110 H 101 H 101 H Respiratory Rate 20 24 H 24 H Blood Pressure 106/77 106/71 106/71 Pulse Oximetry 92 97 97 Oxygen Delivery Oxygen Flow Rate Fraction of Inspired Oxygen 06/13/24 08:00 06/13/24 08:00 06/13/24 08:00 Temperature 36.9 C Pulse Rate 87 89 Respiratory Rate 18 18 Blood Pressure 97/53 L 97/53 L Pulse Oximetry 100 100 98 Oxygen Delivery Nasal Cannula Oxygen Flow Rate 2 Fraction of Inspired Oxygen 06/13/24 08:00 06/13/24 08:54 06/13/24 10:00 Temperature Pulse Rate 86 80 Respiratory Rate Blood Pressure Pulse Oximetry 100 Oxygen Delivery Nasal Cannula Oxygen Flow Rate 2 Fraction of Inspired Oxygen 28 06/13/24 11:46 06/13/24 12:00 06/13/24 16:00 Temperature 36.8 C 36.6 C Pulse Rate 88 85 Respiratory Rate 23 H 17 Blood Pressure 112/58 L 110/55 L Pulse Oximetry 99 100 Oxygen Delivery Oxygen Flow Rate Fraction of Inspired Oxygen Exam Const: General: comfortable and no acute distress HENMT: Ears: TM's normal bilaterally Mouth: Yes moist mucous membranes Eyes: General: appearance normal, both eyes and all related structures Sclera: sclerae normal Pupils: Equal, round and reactive pupils present EOM: EOMs intact bilaterally Neck: Neck: supple and no JVD Resp: Effort & Inspection: normal respiratory effort Auscultation: clear to auscultation bilaterally Cardio: Rate: regular rate Rhythm: regular rhythm GI: Other: Abdomen is soft. Mild tenderness palpation right upper quadrant. Right upper quadrant cholecystostomy tube in place. No output from the drain. No generalized peritoneal signs. Skin: General skin exam: normal color and no rashes or lesions noted Extrem: General: normal to inspection Results Labs 06/12/24 20:46 06/12/24 20:46 Labs: Short CBC 06/12/24 Range/Units 20:46 WBC 9.0 (4.5-10.0) K/mm3 Hgb 9.4 L (12.0-15.0) g/dL Hct 30.7 L (37.0-47.0) % Plt Count 228 (150-375) k/mm3 BMP 06/12/24 20:46 Sodium 139 Potassium 4.4 Chloride 106 Carbon Dioxide 29 BUN 13 Creatinine 0.46 L Glucose 103 Calcium 8.5 Liver Function 06/12/24 Range/Units 20:46 Total Bilirubin 0.7 (0.2-1.3) mg/dL AST 19 (14-36) U/L ALT 13 (6-35) U/L Alkaline Phosphatase 120 (38-126) U/L Albumin 2.8 L (3.5-5.1) g/dL Urine 06/13/24 Range/Units 01:18 Urine Color Yellow (Yellow) Urine Appearance Clear (Clear) Urine pH 7.5 (5.0-9.0) Ur Specific [place] > 1.045 H (1.001-1.035) Urine Protein Negative (Negative) mg/dL Urine Glucose (UA) Negative (Negative) mg/dL Imaging Radiologist's impression: CT Scan Report Signed Patient: Maude Milton : 1940 MR#: [id number] Age: 84 Acct:[id number] Loc: [facility] ADM Date: 06/12/24Attending Dr: Ordering Physician: Boo Elias MD Date of Service: 06/12/24 Procedure(s): CT abdomen pelvis w con Accession Number(s): [id number] cc: Milagros Haq MD; Boo Elias MD~ CT abdomen pelvis w con Ordering provider: Boo Elias MD History: 84 years Female with . Confusion, recent hx of cholecystitis w/ drain . Comparison: None. Technique: CT abdomen and pelvis with IV and without oral contrast. Automated exposure control and iterative reconstruction technique were employed. The dose-length product was 1080.74 mGy-cm. 100 mL Omnipaque 350 was given IV. Findings: VISUALIZED LOWER CHEST: Dependent atelectatic changes. Cardiomegaly. Trace of pericardial effusion. UPPER ABDOMINAL ORGANS: Liver: Normal. Gallbladder: The tubes seen previously in the gallbladder is outside the gallbladder. Septation and sludge is seen in the gallbladder. Surrounding fat stranding also noted. The gallbladder is compressing the duodenum. Spleen: Normal. Stomach/duodenum: Normal. Pancreas: Normal. Adrenals: Normal. Kidneys: Small cyst in the left kidney upper pole. PELVIC ORGANS: The bladder shows a filling defect which may be a blood clot. BOWEL AND MESENTERY: Colon: No evidence of diverticulitis.. Appendix is not demonstrated. Small Bowel: Normal. No obstruction. Peritoneum/mesentery: No free air or free fluid. No mesenteric lymphadenopathy. RETROPERITONEUM: Mild atheromatous disease of the abdominal aorta. No retroperitoneal lymphadenopathy. MUSCULOSKELETAL: Superficial soft tissues: The superficial soft tissues are normal. Bones: Old compression fracture involving T12 and L2 with increased compression of T12 compared to previous study suggestive of acute compression fracture. Compression in L2 is chronic. Age appropriate degenerative changes of the spine. Right hip arthroplasty. IMPRESSION: 1. Cholecystitis with cholecystostomy tube outside the gallbladder. 2. Filling defect in the urinary bladder suggestive of a clot. Clinical correlation advised. 3. Increased compression of T12 suggestive of acute fracture. Chronic fracture in L2. Reviewed, dictated and finalized at location A. Please be advised this is a medical document. It is intended for [id number] communication. It is written in medical language and may contain unfamiliar abbreviations or verbiage. Medical documents are intended to carry relevant information, facts as evident, and the clinical opinion of the practitioner at the time of the encounter. This report may have been done utilizing a voice recognition system. Attempts have been made to correct errors. However, there may be uncorrected grammatical, spelling, and recognition errors present. The file time of this note does not necessarily represent the time of service. Dictated By: Ge Mccullough MD 06/12/24 2212 Signed By: <Electronically signed by Ge Mccullough MD in [place]> 06/12/24 2382
--- NOTE | 2024-06-13 18:23 | PC.NURSE ---
Patient bladder scanned at 1823 for agitation with urination and decreased urine output for shift. Encouraged patient to void, patient voided 10cc, stated she felt like her bladder was empty. Patient bladder scanned and noted 156 mls of volume residing in urinary bladder. RN to continue to monitor.
[2024-06-13 18:58] LABS: Glucose Point of Care 83 mg/dl (65-105)
[2024-06-13 20:10] LABS: MRSA (PCR) NOT DETECTED (NOT DETECTE)
[2024-06-13] MEDS: LACTATED RINGERS 1,000 ML 75 ML IV CONT (20:39)
--- NOTE | 2024-06-13 22:14 | PC.NURSE ---
[id number] Informed by Clara Harris RN that felix left nichole this nurse in another patient's room. Daughter was informed that patient would be moving to and daughter stated she would let everyone know .
--- NOTE | 2024-06-13 22:25 | PC.NURSE ---
Augustus Delgado RN given report for transfer to IMU at 2220.
[2024-06-14] VITALS (18 sets, daily range): BP systolic 126–150; BP diastolic 59–88; PULSE 73–111; RESP 16–24; TEMP 36.4–36.9; O2SAT 91–100
[2024-06-14] MEDS: PIPERACILLN/TAZ 3.375GM/NS50ML 3.375 GM/50 ML BAG IVPB ×3 (05:44→18:55)
[2024-06-14] MEDS: LEVOTHYROXINE SODIUM 25 MCG TABLET PO (05:47)
--- NOTE | 2024-06-14 07:11 | PC.NURSE ---
4191 06/13 Patient transferred to room 206-2 per bed. Room checked for belongings. Family aware of move.
[2024-06-14] MEDS: TAMSULOSIN HCL 0.4 MG CAPSULE PO ×2 (08:33→12:23)
[2024-06-14] MEDS: ENOXAPARIN 40 MG/0.4 ML SYRINGE SUB-Q (08:33)
[2024-06-14] MEDS: METOPROLOL SUCCINATE EXT REL 100 MG TABCR 200 MG PO (08:33)
--- NOTE | 2024-06-14 11:42 | P.PNIM_ITS ---
Progress Note: A&P Assessment and Plan (1) Essential hypertension: Code(s): I10 - Essential (primary) hypertension Status: Acute (2) Coronary artery disease involving [place] coronary artery of [place] heart: Code(s): I25.10 - Atherosclerotic heart disease of [place] coronary artery without angina pectoris Status: Acute (3) Atrial fibrillation: Qualifiers: Atrial fibrillation type: unspecified Qualified Code(s): I48.91 - Unspecified atrial fibrillation Code(s): I48.91 - Unspecified atrial fibrillation Status: Acute (4) Mixed hyperlipidemia: Code(s): E78.2 - Mixed hyperlipidemia Status: Acute (5) Prediabetes: Code(s): R73.03 - Prediabetes Status: Acute (6) Hypothyroidism: Code(s): E03.9 - Hypothyroidism, unspecified Status: Acute (7) Gastroesophageal reflux disease: Code(s): K21.9 - Gastro-esophageal reflux disease without esophagitis Status: Acute (8) Acute cholecystitis: Code(s): K81.0 - Acute cholecystitis Status: Acute (9) Chronic low back pain with sciatica: Code(s): M54.40 - Lumbago with sciatica, unspecified side; G89.29 - Other chronic pain Status: Acute (10) Altered mental status: Code(s): R41.82 - Altered mental status, unspecified Status: Acute Plan 84-year-old female presenting ED with confusion and difficulty finding words. She had complicated hospitalization for sepsis due to acute cholecystitis DR Mckenzie 05/02-05/11. she completed zosyn, transitioned to Augmentin and discharged- had her outpt f/u with complains of nausea and vomitting. NIH of 1. Last known well 4:00 p.m. Patient is on Eliquis is not a tPA [place] te Symptoms are more consistent w/ delirium/encephalopathy vs CVA. no neuro deficit. CT ordered of her abdomen pelvis to evaluate gallbladder. Perc drain has been dislodged and her gallbladder is swollen and edematous. Her liver enzymes stable. She has been started on zosyn 3.375 q6h- 06/13/24 at 0030. Blood cultures collected and pending Urine is collected- follow cultures Incidental finding on CT- T12 compression fracture. No neurologic deficits. Pain meds as needed. Pain mngmnt, nausea control. TRy lidocaine patch- avoid narcotic pain meds. Continue other chronic meds: levothyroxine, omeprazole, atorvastatin once med list is completed.Pt daughter states that pt takes flomax that was just started. Pt is DNR. 06/14 surgery, Dr Chester saw pt last night. notes reviewed. Stroke was ruled out. Very likely cholecystitis causing altered mental status. Her vs are stable. White blood cell count is normal. Liver enzymes are normal as well. She is on IV antibiotics. NPO except for some ice chips per surgery, close observation in IMU. Expect to place another cholecystostomy tube on Saturday when the radiologist was available in the hospital. Time Spent With Patient Time with patient: 25 - 35 minutes Subjective Date/time seen: 06/14/24 11:42 Interval history: 84-year-old female with CAD, HTN and pre-DM,percutaneous cholecystectomy drain presenting for altered mental status. She was her base self earlier yesterday but later, around 4:00 p.m. the staff noticed that she was more confused. They reported garbled speech. no one sided weakness. The patient was sent to the emergency department for evaluation of a stroke. Stroke was ruled out. Very likely cholecystitis causing altered mental status. Her vs are stable. White blood cell count is normal. Liver enzymes are normal as well. She is on IV antibiotics. NPO except for some ice chips per surgery, close observation in IMU. Expect to place another cholecystostomy tube on Saturday when the radiologist was available in the hospital. Review of Systems Review of Systems: All systems reviewed & are unremarkable except as noted in HPI and below Exam Narrative: drain in place to rt abd. dressing c/d/i Const: General: comfortable Resp: Effort & Inspection: normal respiratory effort Auscultation: clear to auscultation bilaterally Cardio: Rate: regular rate Rhythm: regular rhythm GI: GI Palp: Yes Soft to palpation Auscultation: normal bowel sounds Skin: General skin exam: normal color Neuro: Speech: normal speech Motor exam (neuro): Motor abnormalites present Other: pt is oriented to self and intermittently to place. Psych: Affect: normal affect Objective Data Vital Signs Vital Signs: Vital Signs - 24 hr 06/13/24 11:46 06/13/24 12:00 06/13/24 12:00 Temperature 98.2 F Pulse Rate 88 Respiratory Rate 23 H Blood Pressure 112/58 L Pulse Oximetry 99 100 Oxygen Delivery Nasal Cannula Oxygen Flow Rate 2 Fraction of Inspired Oxygen 06/13/24 12:00 06/13/24 14:00 06/13/24 16:00 Temperature 97.9 F Pulse Rate 85 87 85 Respiratory Rate 17 Blood Pressure 110/55 L Pulse Oximetry 100 Oxygen Delivery Oxygen Flow Rate Fraction of Inspired Oxygen 06/13/24 16:00 06/13/24 16:00 06/13/24 18:00 Temperature Pulse Rate 88 94 Respiratory Rate Blood Pressure Pulse Oximetry 100 Oxygen Delivery Nasal Cannula Oxygen Flow Rate 2 Fraction of Inspired Oxygen 06/13/24 20:00 06/13/24 20:00 06/13/24 20:00 Temperature 97.6 F Pulse Rate 98 94 Respiratory Rate 21 H Blood Pressure 127/61 Pulse Oximetry 100 100 Oxygen Delivery Nasal Cannula Oxygen Flow Rate 2 Fraction of Inspired Oxygen 06/13/24 22:00 06/14/24 00:00 06/14/24 00:00 Temperature 97.7 F Pulse Rate 98 101 H Respiratory Rate 20 Blood Pressure 135/62 Pulse Oximetry 91 91 Oxygen Delivery Room Air Oxygen Flow Rate Fraction of Inspired Oxygen 06/14/24 00:00 06/14/24 02:32 06/14/24 04:00 Temperature Pulse Rate 103 H 106 H Respiratory Rate Blood Pressure Pulse Oximetry 92 Oxygen Delivery Room Air Oxygen Flow Rate Fraction of Inspired Oxygen 06/14/24 04:00 06/14/24 04:00 06/14/24 06:00 Temperature 97.7 F Pulse Rate 110 H 95 111 H Respiratory Rate 20 Blood Pressure 150/77 H Pulse Oximetry 95 Oxygen Delivery Oxygen Flow Rate Fraction of Inspired Oxygen 06/14/24 08:00 06/14/24 08:00 06/14/24 08:00 Temperature 98.5 F Pulse Rate 106 H 73 89 Respiratory Rate 20 20 Blood Pressure 137/88 Pulse Oximetry 100 100 Oxygen Delivery Room Air Oxygen Flow Rate Fraction of Inspired Oxygen 06/14/24 08:33 06/14/24 09:48 06/14/24 11:32 Temperature Pulse Rate 73 80 80 Respiratory Rate 20 Blood Pressure Pulse Oximetry 100 Oxygen Delivery Room Air Oxygen Flow Rate Fraction of Inspired Oxygen 28 06/14/24 11:32 Temperature Pulse Rate 82 Respiratory Rate Blood Pressure Pulse Oximetry Oxygen Delivery Oxygen Flow Rate Fraction of Inspired Oxygen Intake/Output Intake/Output: Intake & Output 06/11/24 06/12/24 06/13/24 06/14/24 23:59 23:59 23:59 23:59 Intake Total 2250 250 Output Total 320 Balance 1930 250 Meds/Results Medications: Active Medications Generic Name Dose Route Start Last Admin Trade Name Freq PRN Reason Stop Dose Admin Apixaban 5 mg 06/14/24 11:00 Apixaban 5 Mg Tablet PO Q12HR [facility] Atorvastatin Calcium 40 mg 06/14/24 11:00 Atorvastatin 40 Mg Tablet PO DAILY [facility] Celecoxib 100 mg 06/14/24 11:00 Celecoxib 100 Mg Capsule PO Q12HR [facility] Cyanocobalamin 500 mcg 06/14/24 11:00 Cyanocobalamin 500 Mcg Tablet PO QAM [facility] Cyanocobalamin 2,000 mcg 06/15/24 09:00 Cyanocobalamin 1,000 Mcg Tablet PO QAM [facility] Piperacillin/Tazobactam/Dextrose 3.375 gm in 50 mls @ 100 mls/hr 06/13/24 06:00 06/14/24 05:44 Zosyn 3.375 Gm/Ns 50 Ml IVPB 100 mls/hr Q6HR [facility] Administration Levothyroxine Sodium 25 mcg 06/14/24 06:30 06/14/24 05:47 Levothyroxine Sodium 25 Mcg Tablet PO 25 mcg DAILY@0630 [facility] Administration Lidocaine 1 patch 06/15/24 09:00 Lidocaine 5% Patch TOPICAL DAILY [facility] Metoprolol Succinate 200 mg 06/14/24 09:00 06/14/24 08:33 Metoprolol Succinate Ext Rel 100 Mg Tabcr PO 200 mg DAILY [facility] Administration Miscellaneous Information 0 each 06/14/24 00:01 Lidocaine Patch - Application Site? XX 07/14/24 00:00 CLARIFY [facility] Ondansetron HCl 4 mg 06/14/24 10:55 Ondansetron Hcl Odt 4 Mg Tablet BY MOUTH BID PRN Nausea And Vomiting Pantoprazole Sodium 40 mg 06/14/24 10:55 Pantoprazole 40 Mg Tablet PO QAM [facility] Tamsulosin HCl 0.4 mg 06/14/24 09:00 06/14/24 08:33 Tamsulosin Hcl 0.4 Mg Capsule PO 0.4 mg DAILY [facility] Administration Radiology Results: ITS Impressions Head/Neck CTA 06/12/24 22:24 IMPRESSION: 1. Normal CTA head and neck. Percent stenosis per NASCET criteria is 0%. 2. Dominant left vertebral artery. Abdomen/Pelvis CT 06/12/24 22:45 IMPRESSION: 1. Cholecystitis with cholecystostomy tube outside the gallbladder. 2. Filling defect in the urinary bladder suggestive of a clot. Clinical correlation advised. 3. Increased compression of T12 suggestive of acute fracture. Chronic fracture in L2. Chest X-Ray 06/13/24 06:50 Impression: Small pleural effusions with probable mild bibasilar pulmonary edema/atelectasis. Labs Labs: Laboratory Results - last 24 hr 06/13/24 06/13/24 06/13/24 11:51 18:14 18:15 POC Capillary Glucose 93 83 Nasal MRSA (PCR) Not detected Quality VTE Prophylaxis VTE prophylaxis: pharmacologic ordered
--- NOTE | 2024-06-14 12:02 | WPDPN ---
Progress Note: A&P Assessment and Plan (1) Cholecystitis: Code(s): K81.9 - Cholecystitis, unspecified Status: Acute Assessment and Plan: Acute on chronic cholecystitis. Cholecystostomy tube cholangiogram last week shows obstruction of the cystic duct. The existing cholecystostomy tube is no longer within the lumen of the gallbladder. The patient will need placement of another cholecystostomy tube under image guidance in Radiology to decompress the gallbladder. This will be ordered for tomorrow morning. Continue IV antibiotics. Hold the patient's Eliquis until after the cholecystostomy tube placement. She can have clear liquids today but NPO after midnight. Subjective Date/time seen: 06/14/24 12:02 Interval history: Patient awake and alert. Complains of having some mild right upper quadrant pain. No nausea or vomiting. No fever. No tachycardia. White blood cell count is still normal. Liver enzymes are still normal. Exam GI: Other: Abdomen is soft and nondistended. Mild tenderness to palpation right upper quadrant. No peritoneal signs. Objective Data Vital Signs Vital Signs: Vital Signs - 24 hr 06/13/24 14:00 06/13/24 16:00 06/13/24 16:00 Temperature 36.6 C Pulse Rate 87 85 Respiratory Rate 17 Blood Pressure 110/55 L Pulse Oximetry 100 100 Oxygen Delivery Nasal Cannula Oxygen Flow Rate 2 Fraction of Inspired Oxygen 06/13/24 16:00 06/13/24 18:00 06/13/24 20:00 Temperature Pulse Rate 88 94 Respiratory Rate Blood Pressure Pulse Oximetry 100 Oxygen Delivery Nasal Cannula Oxygen Flow Rate 2 Fraction of Inspired Oxygen 06/13/24 20:00 06/13/24 20:00 06/13/24 22:00 Temperature 36.4 C Pulse Rate 98 94 98 Respiratory Rate 21 H Blood Pressure 127/61 Pulse Oximetry 100 Oxygen Delivery Oxygen Flow Rate Fraction of Inspired Oxygen 06/14/24 00:00 06/14/24 00:00 06/14/24 00:00 Temperature 36.5 C Pulse Rate 101 H 103 H Respiratory Rate 20 Blood Pressure 135/62 Pulse Oximetry 91 91 Oxygen Delivery Room Air Oxygen Flow Rate Fraction of Inspired Oxygen 06/14/24 02:32 06/14/24 04:00 06/14/24 04:00 Temperature Pulse Rate 106 H 110 H Respiratory Rate Blood Pressure Pulse Oximetry 92 Oxygen Delivery Room Air Oxygen Flow Rate Fraction of Inspired Oxygen 06/14/24 04:00 06/14/24 06:00 06/14/24 08:00 Temperature 36.5 C 36.9 C Pulse Rate 95 111 H 106 H Respiratory Rate 20 20 Blood Pressure 150/77 H 137/88 Pulse Oximetry 95 100 Oxygen Delivery Oxygen Flow Rate Fraction of Inspired Oxygen 06/14/24 08:00 06/14/24 08:00 06/14/24 08:33 Temperature Pulse Rate 73 89 73 Respiratory Rate 20 Blood Pressure Pulse Oximetry 100 Oxygen Delivery Room Air Oxygen Flow Rate Fraction of Inspired Oxygen 06/14/24 09:48 06/14/24 11:32 06/14/24 11:32 Temperature Pulse Rate 80 80 82 Respiratory Rate 20 Blood Pressure Pulse Oximetry 100 Oxygen Delivery Room Air Oxygen Flow Rate Fraction of Inspired Oxygen 06/14/24 11:52 Temperature 36.4 C Pulse Rate 95 Respiratory Rate 20 Blood Pressure 138/76 Pulse Oximetry 100 Oxygen Delivery Oxygen Flow Rate Fraction of Inspired Oxygen Intake/Output Intake/Output: Intake & Output 06/11/24 06/12/24 06/13/24 06/14/24 23:59 23:59 23:59 23:59 Intake Total 2250 250 Output Total 320 Balance 1930 250 Meds/Results Medications: Active Medications Generic Name Dose Route Start Last Admin Trade Name Freq PRN Reason Stop Dose Admin Acetaminophen 1,000 mg 06/14/24 11:47 Acetaminophen 500 Mg Tablet PO TID PRN pain Albuterol/Ipratropium 3 ml 06/14/24 14:00 Ipratropium 0.5 Mg/Albuterol Sulfate 2.5 Mg Ampul.Neb 3 Ml INHALATION Q6HRT [facility] Apixaban 5 mg 06/14/24 11:00 06/14/24 11:55 Apixaban 5 Mg Tablet PO Not Given Q12HR [facility] Atorvastatin Calcium 40 mg 06/14/24 11:00 Atorvastatin 40 Mg Tablet PO DAILY [facility] Celecoxib 100 mg 06/14/24 11:00 Celecoxib 100 Mg Capsule PO Q12HR [facility] Cyanocobalamin 500 mcg 06/14/24 11:00 Cyanocobalamin 500 Mcg Tablet PO QAM [facility] Cyanocobalamin 2,000 mcg 06/15/24 09:00 Cyanocobalamin 1,000 Mcg Tablet PO QAM [facility] Piperacillin/Tazobactam/Dextrose 3.375 gm in 50 mls @ 100 mls/hr 06/13/24 06:00 06/14/24 05:44 Zosyn 3.375 Gm/Ns 50 Ml IVPB 100 mls/hr Q6HR [facility] Administration Lactated Ringer's 1,000 mls @ 50 mls/hr 06/14/24 11:50 Lr - Lactated Ringers Iv IV CONT .Q20H [facility] Levothyroxine Sodium 25 mcg 06/14/24 06:30 06/14/24 05:47 Levothyroxine Sodium 25 Mcg Tablet PO 25 mcg DAILY@0630 [facility] Administration Lidocaine 1 patch 06/15/24 09:00 Lidocaine 5% Patch TOPICAL DAILY [facility] Metoprolol Succinate 200 mg 06/14/24 09:00 06/14/24 08:33 Metoprolol Succinate Ext Rel 100 Mg Tabcr PO 200 mg DAILY [facility] Administration Miscellaneous Information 0 each 06/14/24 00:01 Lidocaine Patch - Application Site? XX 07/14/24 00:00 CLARIFY [facility] Ondansetron HCl 4 mg 06/14/24 10:55 Ondansetron Hcl Odt 4 Mg Tablet BY MOUTH BID PRN Nausea And Vomiting Pantoprazole Sodium 40 mg 06/14/24 10:55 Pantoprazole 40 Mg Tablet PO QAM [facility] Tamsulosin HCl 0.4 mg 06/14/24 09:00 06/14/24 08:33 Tamsulosin Hcl 0.4 Mg Capsule PO 0.4 mg DAILY [facility] Administration Tamsulosin HCl 0.4 mg 06/14/24 11:50 06/14/24 11:59 Tamsulosin Hcl 0.4 Mg Capsule PO Not Given QAM [facility] Radiology Results: ITS Impressions Head/Neck CTA 06/12/24 22:24 IMPRESSION: 1. Normal CTA head and neck. Percent stenosis per NASCET criteria is 0%. 2. Dominant left vertebral artery. Abdomen/Pelvis CT 06/12/24 22:45 IMPRESSION: 1. Cholecystitis with cholecystostomy tube outside the gallbladder. 2. Filling defect in the urinary bladder suggestive of a clot. Clinical correlation advised. 3. Increased compression of T12 suggestive of acute fracture. Chronic fracture in L2. Chest X-Ray 06/13/24 06:50 Impression: Small pleural effusions with probable mild bibasilar pulmonary edema/atelectasis. Labs Labs: Laboratory Results - last 24 hr 06/13/24 06/13/2406/13/25 11:51 18:14 18:15 POC Capillary Glucose 93 83 Nasal MRSA (PCR) Not detected
[2024-06-14] MEDS: PANTOPRAZOLE 40 MG TABLET PO (12:22)
[2024-06-14] MEDS: CYANOCOBALAMIN 500 MCG TABLET PO (12:22)
[2024-06-14] MEDS: CELECOXIB 100 MG CAPSULE PO ×2 (12:23→21:02)
[2024-06-14] MEDS: LACTATED RINGERS 1,000 ML 50 ML IV CONT (12:23)
[2024-06-14] MEDS: ATORVASTATIN 40 MG TABLET PO (12:23)
[2024-06-14] MEDS: IPRATROPIUM 0.5 MG/ALBUTEROL SULFATE 2.5 MG AMPUL.NEB 3 ML INHALATION ×2 (13:45→19:44)
[2024-06-14] MEDS: ONDANSETRON HCL ODT 4 MG TABLET BY MOUTH (14:28)
[2024-06-15] VITALS (25 sets, daily range): BP systolic 98–128; BP diastolic 48–81; PULSE 82–130; RESP 18–24; TEMP 36.5–36.7; O2SAT 93–100
[2024-06-15] MEDS: PIPERACILLN/TAZ 3.375GM/NS50ML 3.375 GM/50 ML BAG IVPB ×4 (00:23→18:14)
[2024-06-15] MEDS: IPRATROPIUM 0.5 MG/ALBUTEROL SULFATE 2.5 MG AMPUL.NEB 3 ML INHALATION ×3 (02:59→20:53)
[2024-06-15 06:02] LABS: Hematocrit 29.9 % (37.0-47.0); Hemoglobin 8.6 g/dL (12.0-15.0); Mean Corpuscular HGB Conc 28.8 g/dl (32-36); Mean Corpuscular Hemoglobin 28.7 pg (26-34); Mean Corpuscular Volume 99.7 fl (80-100); Mean Platelet Volume 9.7 fl (7.4-10.4); Platelet Count Result 207 k/mm3 (150-375); Red Cell Distribution Width 14.9 % (11.5-14.5); White Blood Count 5.6 K/mm3 (4.5-10.0)
[2024-06-15 06:15] LABS: Anion Gap 6 mmol/L (4-12); Blood Urea Nitrogen 9 mg/dL (7-17); Calcium 8.4 mg/dL (8.4-10.2); Carbon Dioxide 30 mmol/L (22-30); Chloride 106 mmol/L (98-107); Estimated CRCL calculation 69 ml/min; Estimated Glomerular Filt Rate > 60; Glucose 106 mg/dL (65-110); Potassium 3.8 mmol/L (3.4-5.0); Sodium 142 mmol/L (137-145)
[2024-06-15] MEDS: LACTATED RINGERS 1,000 ML 50 ML IV CONT (06:37)
--- NOTE | 2024-06-15 08:37 | ECG_ITS ---
Test Date: 2024-06-15 10:04:19 Measurements Intervals [place] Rate: 131 P: 0 MO: 0 QRS: -47 QRSD: 92 T: 120 QT: 305 QTc: 450 Interpretive Statements ATRIAL FIBRILLATON WITH RAPID VENTRICULAR RESPONSE LEFT AXIS DEVIATION [QRS AXIS < -30] MODERATE VOLTAGE CRITERIA FOR LVH, CONSIDER NORMAL VARIANT [MEETS CRITERIA IN ONE OF: R(aVL), S(V1), R(V5), R(V5/V6)+S(V1)] POSSIBLE ANTEROSEPTAL MYOCARDIAL INFARCTION , PROBABLY OLD [30 ms Q WAVE IN V1-V4] Compared to ECG 05/04/2024 09:27:08 NO SIGNIFICANT CHANGES Electronically Signed On 06-16-2024 16:34:19 CDT by Paul Franco M.D.
[2024-06-15] MEDS: TAMSULOSIN HCL 0.4 MG CAPSULE PO (08:55)
[2024-06-15] MEDS: CYANOCOBALAMIN 500 MCG TABLET PO (08:55)
[2024-06-15] MEDS: CYANOCOBALAMIN 1,000 MCG TABLET 2000 MCG PO (08:56)
[2024-06-15] MEDS: METOPROLOL SUCCINATE EXT REL 100 MG TABCR 200 MG PO (08:56)
[2024-06-15] MEDS: ATORVASTATIN 40 MG TABLET PO (08:56)
[2024-06-15] MEDS: PANTOPRAZOLE 40 MG TABLET PO (08:56)
[2024-06-15] MEDS: LIDOCAINE 5% PATCH 1 PATCH TOPICAL (08:56)
--- NOTE | 2024-06-15 09:30 | PC.NURSE ---
Notified Dr Hernandez of patients elevated HR, rhythm change to Afib. Awaiting EKG and will notify provider when available.
[2024-06-15 10:19] LABS: INR 1.3; Prothrombin Time 16.4 Seconds (11.1-14.7)
[2024-06-15 10:20] LABS: Partial Thromboplastin Time 51.3 Seconds (22.3-36.8)
--- NOTE | 2024-06-15 10:23 | P.CONCA_ITS ---
Assessment and Plan Assessment and plan (1) Atrial fibrillation: Qualifiers: Atrial fibrillation type: unspecified Qualified Code(s): I48.91 - Unspecified atrial fibrillation Code(s): I48.91 - Unspecified atrial fibrillation Status: Acute Assessment and Plan: She has paroxysmal atrial fibrillation. Now has atrial fibrillation with rapid ventricular response in the setting of acute cholecystitis. * Order for diltiazem IV push followed by diltiazem drip has been placed * Hold metoprolol while on diltiazem * apixaban is on hold in anticipation of surgery tomorrow. Resume when OK with surgery. * Continuous telemetry monitoring (2) Coronary artery disease: Code(s): I25.10 - Atherosclerotic heart disease of [place] coronary artery without angina pectoris Status: Acute Assessment and Plan: Stable, no anginal symptoms. Continue statin. Not on ASA as she is on DOAC (3) Essential hypertension: Code(s): I10 - Essential (primary) hypertension Status: Acute Assessment and Plan: At goal. (4) Mixed hyperlipidemia: Code(s): E78.2 - Mixed hyperlipidemia Status: Acute Assessment and Plan: Continue statin (5) Acute cholecystitis: Code(s): K81.0 - Acute cholecystitis Status: Acute Assessment and Plan: Plan for cholecystostomy tomorrow History of Present Illness History of Present Illness Consult date/time: 06/15/24 10:23 Requesting physician: Cristina Hernandez MD Consult reason: atrial fibrillation Reason For Visit: AMS Narrative: Maude Milton is an 84 year old female with coronary artery disease and atrial fibrillation. She presents to the hospital with altered mental status. Cardiology is consulted for atrial fibrillation with rapid ventricular response. Patient went into atrial fibrillation with rapid ventricular response earlier this morning. Her heart rates have been generally ranging 120-150 beats per minute. She does not feel any palpitations, chest pain, shortness of breath. She has been given her home dose of metoprolol and received an additional 5 mg of Lopressor IV. Nonetheless, her heart rate remains elevated. At the time of my evaluation she is lying comfortably in bed is not in any acute distress. 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 Patient of Dr. Bereket Olson. Arthritis Prediabetes Essential hypertension Gastroesophageal reflux disease Hypothyroidism Mixed hyperlipidemia Seasonal allergic rhinitis Vitamin B12 deficiency Vitamin D deficiency Surgical History Surgical History History of cardiac catheterization Results as above. History of colonoscopy with polypectomy History of appendectomy History of cataract extraction History of hysterectomy Family History Family History Father Lung cancer Sibling Breast cancer Social History Social History Social History: Surrogate medical decision maker: Jodi Lewis, daughter. Code status: Full code. Smoking status: Never smoker Second hand tobacco smoke exposure: No Alcohol intake: never Substance use: never Substance use type: does not use Do You Feel Safe in your Home?: Yes Lack of Transportation: No Lack of Food: Never True Current Housing: I Have Housing Concerned About Future Housing: No Difficulty Paying Gas/Electric Bills: No Difficulty Paying for Meds: No Currently Unemployed: No Education: High School Diploma/GED Difficulty w/ Childcare or Family Care: No Living arrangements: with family Additional living arrangements comments: The patient lives in [place] with her daughter Jodi. 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 Spiritual care concerns: No Agree to blood products: Yes Meds Home Medications and Allergies Home Medications ?Medication ?Instructions ?Recorded ?Confirmed ?Type cyanocobalamin (vitamin B-12) 2,500 mcg PO QAM #90 tabs 01/10/23 06/13/24 Rx 2,500 mcg tablet levothyroxine 25 mcg tablet 25 mcg PO DAILY #90 tabs 03/20/23 06/13/24 Rx atorvastatin 40 mg tablet 40 mg PO DAILY #90 tabs 07/09/23 06/13/24 Rx omeprazole 20 mg capsule,delayed 40 mg (2 x 20 mg) PO DAILY #180 08/28/23 06/13/24 Rx release caps ondansetron HCl 4 mg tablet See Rx Instructions .Route 12/03/23 06/13/24 Rx .COMPLEX #40 ea duoderm dressing #1 ea 04/27/24 05/26/24 Rx egg crate mattress for chair #1 ea 04/27/24 05/26/24 Rx nitroglycerin 0.4 mg sublingual 0.4 mg sublingual Q5M PRN chest 05/02/24 06/13/24 History tablet pain apixaban 5 mg tablet (Eliquis) 5 mg PO Q12HR #60 tabs 05/11/24 06/13/24 Rx ipratropium 0.5 mg-albuterol 3 mg 3 ml inhalation Q6HRT #30 mL 05/11/24 06/13/24 Rx (2.5 mg base)/3 mL nebulization soln metoprolol succinate 200 mg 200 mg PO DAILY #30 tabs 05/11/24 06/13/24 Rx tablet,extended release 24 hr amoxicillin 875 mg-potassium 1 tablet PO Q12H #30 tabs 06/10/24 06/13/24 Rx clavulanate 125 mg tablet acetaminophen 500 mg capsule 1,000 mg PO TID PRN pain 06/13/24 06/13/24 History amitriptyline 10 mg tablet 20 mg PO .HS 06/13/24 06/13/24 History celecoxib 100 mg capsule (Celebrex) 100 mg PO BID 06/13/24 06/13/24 History lidocaine 5 % topical patch 1 patch topical DAILY pain 06/13/24 06/13/24 History potassium chloride 20 mEq 40 meq PO DAILY 06/13/24 06/13/24 History tablet,extended release(part/cryst) tamsulosin 0.4 mg capsule 0.4 mg PO DAILY urinary retention 06/13/24 06/13/24 History Allergies Allergy/AdvReac Type Severity Reaction Status Date / Time alendronate sodium Allergy Unknown Pt does Verified 05/26/24 12:49 remember levofloxacin Allergy Unknown Pt does Verified 05/26/24 12:49 not remember hydrocodone AdvReac Mild IF SHE Verified 05/26/24 12:49 TAKES 250 MG SHE IS OKAY, 500 MG SHE HAS NAUSEA AND V Vital Signs Vital Signs - 24 hr 06/14/24 11:32 06/14/24 11:32 06/14/24 11:52 Temperature 36.4 C Pulse Rate 80 82 95 Respiratory Rate 20 20 Blood Pressure 138/76 Pulse Oximetry 100 100 Oxygen Delivery Nasal Cannula Oxygen Flow Rate 2 Fraction of Inspired Oxygen 28 06/14/24 13:45 06/14/24 13:45 06/14/24 13:52 Temperature Pulse Rate 99 95 Respiratory Rate 16 16 Blood Pressure Pulse Oximetry 98 Oxygen Delivery Nasal Cannula Oxygen Flow Rate 2 Fraction of Inspired Oxygen 28 06/14/24 16:00 06/14/24 16:00 06/14/24 16:00 Temperature 36.5 C Pulse Rate 86 86 86 Respiratory Rate 18 18 Blood Pressure 133/62 Pulse Oximetry 96 96 Oxygen Delivery Nasal Cannula Oxygen Flow Rate 2 Fraction of Inspired Oxygen 28 06/14/24 17:59 06/14/24 19:44 06/14/24 20:00 Temperature 36.6 C Pulse Rate 87 87 89 Respiratory Rate 24 H 20 Blood Pressure 126/59 L Pulse Oximetry 98 100 Oxygen Delivery Nasal Cannula Oxygen Flow Rate 2 Fraction of Inspired Oxygen 06/14/24 20:00 06/14/24 20:00 06/14/24 21:08 Temperature Pulse Rate 88 87 Respiratory Rate 24 H Blood Pressure Pulse Oximetry 97 Oxygen Delivery Nasal Cannula Oxygen Flow Rate 2 Fraction of Inspired Oxygen 06/14/24 22:00 06/14/24 23:48 06/15/24 00:00 Temperature 36.5 C Pulse Rate 98 104 H Respiratory Rate 18 Blood Pressure 146/75 H Pulse Oximetry 99 97 Oxygen Delivery Nasal Cannula Oxygen Flow Rate 2 Fraction of Inspired Oxygen 06/15/24 00:00 06/15/24 02:00 06/15/24 02:59 Temperature Pulse Rate 87 85 85 Respiratory Rate 18 Blood Pressure Pulse Oximetry Oxygen Delivery Oxygen Flow Rate Fraction of Inspired Oxygen 06/15/24 04:00 06/15/24 04:00 06/15/24 04:00 Temperature 36.5 C Pulse Rate 88 93 Respiratory Rate 18 Blood Pressure 128/54 L Pulse Oximetry 97 98 Oxygen Delivery Nasal Cannula Oxygen Flow Rate 2 Fraction of Inspired Oxygen 06/15/24 06:00 06/15/24 08:00 06/15/24 08:08 Temperature 36.6 C Pulse Rate 121 H 108 H Respiratory Rate 24 H Blood Pressure 114/81 Pulse Oximetry 99 95 Oxygen Delivery Nasal Cannula Oxygen Flow Rate 2 Fraction of Inspired Oxygen 06/15/24 08:08 06/15/24 08:56 Temperature Pulse Rate 82 130 H Respiratory Rate 20 Blood Pressure Pulse Oximetry Oxygen Delivery Oxygen Flow Rate Fraction of Inspired Oxygen Exam 2 Const: General: comfortable, no acute distress, alert and awake O rientation/consciousness: patient oriented x3 HENMT: Head: normal to inspection Eyes: General: appearance normal, both eyes and all related structures P upils: Equal, round and reactive pupils present Neck: Neck: normal visual inspection, supple and no JVD Carotids: normal carotid upstroke Resp: Effort & Inspection: normal respiratory effort Auscultation: clear to auscultation bilaterally Cardio: Rate: tachycardic Rhythm: abnormal rhythm irregularly irregular Heart sounds: S1 normal heart sound present, S2 normal heart sound present and no murmurs GI: Auscultation: normal bowel sounds Skin: General skin exam: normal color Neuro: General: patient oriented x3 Cranial nerves: Yes Equal, round and reactive pupils present Extrem: General: normal to inspection Psych: Appearance: grossly normal Mental Status: mental status grossly normal Results Labs and Meds 06/15/24 05:28 06/15/24 05:28 Lab results: CBC 06/15/24 Range/Units 05:28 WBC 5.6 (4.5-10.0) K/mm3 RBC 3.00 L (4.2-5.4) M/mm3 Hgb 8.6 L (12.0-15.0) g/dL Hct 29.9 L (37.0-47.0) % Plt Count 207 (150-375) k/mm3 Comprehensive Metabolic Panel 06/15/24 Range/Units 05:28 Sodium 142 (137-145) mmol/L Potassium 3.8 (3.4-5.0) mmol/L Chloride 106 (98-107) mmol/L Carbon Dioxide 30 (22-30) mmol/L BUN 9 (7-17) mg/dL Creatinine 0.48 L (0.7-1.0) mg/dL Glucose 106 (65-110) mg/dL Calcium 8.4 (8.4-10.2) mg/dL Intake and Output 06/14/24 06/15/24 06/15/24 23:59 07:59 15:59 Intake Total 610 1061.7 Output Total 11 Balance 599 1061.7 Intake: IV 50 961.7 Lactated Ringers 1,000 ml @ 50 911.7 mls/hr IV CONT .Q20H MELISSA Rx#: [id number] Piperacilln/Danyel 3.375GM/Ns50ml 50 50 3.375 gm In 50 ml @ 100 mls/hr IVPB Q6HR [facility] Rx#:[id number] Oral 560 100 Output: Output, Urine/Stool Mix Amount 1 Drain 10 Percutaneous Right Upper 10 Abdomen Other: Number of Bowel Movements Today 1 Patient Weight 06/15/24 23:59 Weight 78.4 kg
[2024-06-15] MEDS: METOPROLOL TARTRATE INJ 5 MG/5 ML VIAL IV PUSH (10:47)
--- NOTE | 2024-06-15 11:12 | P.PNGS_ITS ---
Progress Note: A&P Assessment and Plan (1) Cholecystitis: Code(s): K81.9 - Cholecystitis, unspecified Status: Acute Assessment and Plan: Acute on chronic cholecystitis. Cholecystostomy tube cholangiogram last week showed an obstruction of the cystic duct. The existing cholecystostomy tube may no longer be within the lumen of the gallbladder, which is distended. The patient will need placement of another cholecystostomy tube under image guidance in Radiology to decompress the gallbladder when she is stable from a cardiac standpoint with her atrial fibrillation. Continue IV antibiotics. Hold the patient's Eliquis until after the cholecystostomy tube placement. Keep her NPO today for possible cholecystostomy tube placement. Plan I have discussed the patient's case and plan of care with Dr. Chester. Subjective Subjective Date/Time Seen: 06/15/24 11:12 Interval history: Denies any abdominal pain or back pain. No nausea. White blood cell count remains normal today. She is afebrile. She is currently in atrial fibrillation with her heart rate in the 120s to 130s. Liquids has been on hold. She has an order for cholecystostomy tube placement. Exam Const: General: comfortable and no acute distress Orientation/consciousness: patient oriented x3 GI: Inspection: non-distended GI Palp: Yes Soft to palpation, Yes Tenderness to palpation present (GI) (RUQ), Yes Guarding due to palpation present (GI) (RUQ) and No Rebound tenderness present Auscultation: normal bowel sounds Other: Right upper quadrant cholecystostomy tube with scant purulent [place] drainage with sediment. Similar appearing drainage is coming around the cholecystostomy tube onto the gauze dressing, which was changed. Objective Data Vital Signs Vital Signs: Vital Signs - 24 hr 06/14/24 11:32 06/14/24 11:32 06/14/24 11:52 Temperature 97.6 F Pulse Rate 80 82 95 Respiratory Rate 20 20 Blood Pressure 138/76 Pulse Oximetry 100 100 Oxygen Delivery Nasal Cannula Oxygen Flow Rate 2 Fraction of Inspired Oxygen 06/14/24 13:45 06/14/24 13:45 06/14/24 13:52 Temperature Pulse Rate 99 95 Respiratory Rate 16 16 Blood Pressure Pulse Oximetry 98 Oxygen Delivery Nasal Cannula Oxygen Flow Rate 2 Fraction of Inspired Oxygen 06/14/24 16:00 06/14/24 16:00 06/14/24 16:00 Temperature 97.7 F Pulse Rate 86 86 86 Respiratory Rate 18 18 Blood Pressure 133/62 Pulse Oximetry 96 96 Oxygen Delivery Nasal Cannula Oxygen Flow Rate 2 Fraction of Inspired Oxygen 28 06/14/24 17:59 06/14/24 19:44 06/14/24 20:00 Temperature 97.8 F Pulse Rate 87 87 89 Respiratory Rate 24 H 20 Blood Pressure 126/59 L Pulse Oximetry 98 100 Oxygen Delivery Nasal Cannula Oxygen Flow Rate 2 Fraction of Inspired Oxygen 06/14/24 20:00 06/14/24 20:00 06/14/24 21:08 Temperature Pulse Rate 88 87 Respiratory Rate 24 H Blood Pressure Pulse Oximetry 97 Oxygen Delivery Nasal Cannula Oxygen Flow Rate 2 Fraction of Inspired Oxygen 06/14/24 22:00 06/14/24 23:48 06/15/24 00:00 Temperature 97.7 F Pulse Rate 98 104 H Respiratory Rate 18 Blood Pressure 146/75 H Pulse Oximetry 99 97 Oxygen Delivery Nasal Cannula Oxygen Flow Rate 2 Fraction of Inspired Oxygen 06/15/24 00:00 06/15/24 02:00 06/15/24 02:59 Temperature Pulse Rate 87 85 85 Respiratory Rate 18 Blood Pressure Pulse Oximetry Oxygen Delivery Oxygen Flow Rate Fraction of Inspired Oxygen 06/15/24 04:00 06/15/24 04:00 06/15/24 04:00 Temperature 97.7 F Pulse Rate 88 93 Respiratory Rate 18 Blood Pressure 128/54 L Pulse Oximetry 97 98 Oxygen Delivery Nasal Cannula Oxygen Flow Rate 2 Fraction of Inspired Oxygen 06/15/24 06:00 06/15/24 08:00 06/15/24 08:00 Temperature 97.8 F Pulse Rate 121 H 108 H Respiratory Rate 24 H Blood Pressure 114/81 Pulse Oximetry 99 97 Oxygen Delivery Nasal Cannula Oxygen Flow Rate 2 Fraction of Inspired Oxygen 06/15/24 08:08 06/15/24 08:08 06/15/24 08:56 Temperature Pulse Rate 82 130 H Respiratory Rate 20 Blood Pressure Pulse Oximetry 95 Oxygen Delivery Nasal Cannula Oxygen Flow Rate 2 Fraction of Inspired Oxygen 06/15/24 10:47 Temperature Pulse Rate 127 H Respiratory Rate Blood Pressure Pulse Oximetry Oxygen Delivery Oxygen Flow Rate Fraction of Inspired Oxygen Intake/Output Intake/Output: Intake & Output 06/12/24 06/13/24 06/14/24 06/15/24 23:59 23:59 23:59 23:59 Intake Total 2250 960 1061.7 Output Total 320 11 Balance 4612 576 0610.7 Meds/Results Medications: Active Medications Generic Name Dose Route Start Last Admin Trade Name Fregigi PRN Reason Stop Dose Admin Acetaminophen 1,000 mg 06/14/24 11:47 Acetaminophen 500 Mg Tablet PO TID PRN pain Albuterol/Ipratropium 3 ml 06/14/24 14:00 06/15/24 08:06 Ipratropium 0.5 Mg/Albuterol Sulfate 2.5 Mg Ampul.Neb 3 Ml INHALATION 3 ml Q6HRT MELISSA Administration Apixaban 5 mg 06/14/24 11:00 06/14/24 11:55 Apixaban 5 Mg Tablet PO Not Given Q12HR MELISSA Atorvastatin Calcium 40 mg 06/14/24 11:00 06/15/24 08:56 Atorvastatin 40 Mg Tablet PO 40 mg DAILY MELISSA Administration Celecoxib 100 mg 06/14/24 11:00 06/15/24 09:15 Celecoxib 100 Mg Capsule PO Not Given Q12HR MELISSA Cyanocobalamin 500 mcg 06/14/24 11:00 06/15/24 08:55 Cyanocobalamin 500 Mcg Tablet PO 500 mcg QAM MELISSA Administration Cyanocobalamin 2,000 mcg 06/15/24 09:00 06/15/24 08:56 Cyanocobalamin 1,000 Mcg Tablet PO 2,000 mcg QAM MELISSA Administration Piperacillin/Tazobactam/Dextrose 3.375 gm in 50 mls @ 100 mls/hr 06/13/24 06:00 06/15/24 05:37 Zosyn 3.375 Gm/Ns 50 Ml IVPB 100 mls/hr Q6HR MELISSA Administration Lactated Ringer's 1,000 mls @ 50 mls/hr 06/14/24 11:50 06/15/24 06:37 Lr - Lactated Ringers Iv IV CONT 50 mls/hr .Q20H MELISSA Administration Levothyroxine Sodium 25 mcg 06/14/24 06:30 06/15/24 05:49 Levothyroxine Sodium 25 Mcg Tablet PO Not Given DAILY@0630 MELISSA Lidocaine 1 patch 06/15/24 09:00 06/15/24 08:56 Lidocaine 5% Patch TOPICAL 1 patch DAILY MELISSA Administration Metoprolol Succinate 200 mg 06/14/24 09:00 06/15/24 08:56 Metoprolol Succinate Ext Rel 100 Mg Tabcr PO 200 mg DAILY MELISSA Administration Ondansetron HCl 4 mg 06/14/24 10:55 06/14/24 14:28 Ondansetron Hcl Odt 4 Mg Tablet BY MOUTH 4 mg BID PRN Administration Nausea And Vomiting Pantoprazole Sodium 40 mg 06/14/24 10:55 06/15/24 08:56 Pantoprazole 40 Mg Tablet PO 40 mg QAM MELISSA Administration Tamsulosin HCl 0.4 mg 06/14/24 09:00 06/14/24 12:23 Tamsulosin Hcl 0.4 Mg Capsule PO 0.4 mg DAILY MELISSA Administration Tamsulosin HCl 0.4 mg 06/14/24 11:50 06/15/24 08:55 Tamsulosin Hcl 0.4 Mg Capsule PO 0.4 mg QAM MELISSA Administration Radiology Results: ITS Impressions Head/Neck CTA 06/12/24 22:24 IMPRESSION: 1. Normal CTA head and neck. Percent stenosis per NASCET criteria is 0%. 2. Dominant left vertebral artery. Abdomen/Pelvis CT 06/12/24 22:45 IMPRESSION: 1. Cholecystitis with cholecystostomy tube outside the gallbladder. 2. Filling defect in the urinary bladder suggestive of a clot. Clinical correlation advised. 3. Increased compression of T12 suggestive of acute fracture. Chronic fracture in L2. Chest X-Ray 06/13/24 06:50 Impression: Small pleural effusions with probable mild bibasilar pulmonary ed kylie/atelectasis. Labs Labs: Laboratory Results - last 24 hr 06/15/24 05:28 WBC 5.6 RBC 3.00 L Hgb 8.6 L Hct 29.9 L MCV 99.7 MCH 28.7 MCHC 28.8 L RDW 14.9 H Plt Count 207 MPV 9.7 Sodium 142 Potassium 3.8 Chloride 106 Carbon Dioxide 30 Anion Gap 6 BUN 9 Creatinine 0.48 L Estim Creat Clear Calc 69 Estimated GFR > 60 Glucose 106 Calcium 8.4
[2024-06-15] MEDS: dilTIAZem HCl INJ 25 MG/5 ML VIAL IV PUSH (11:59)
[2024-06-15] MEDS: dilTIAZem 100 MG/100 ML 100 MG/100 ML BAG IV CONT (13:07)
[2024-06-15] MEDS: ACETAMINOPHEN 500 MG TABLET 1000 MG PO (15:35)
--- NOTE | 2024-06-15 16:08 | P.PNIM_ITS ---
Progress Note: A&P Assessment and Plan (1) Essential hypertension: Code(s): I10 - Essential (primary) hypertension Status: Acute (2) Coronary artery disease involving [place] coronary artery of [place] heart: Code(s): I25.10 - Atherosclerotic heart disease of [place] coronary artery without angina pectoris Status: Acute (3) Atrial fibrillation: Qualifiers: Atrial fibrillation type: unspecified Qualified Code(s): I48.91 - Unspecified atrial fibrillation Code(s): I48.91 - Unspecified atrial fibrillation Status: Acute (4) Mixed hyperlipidemia: Code(s): E78.2 - Mixed hyperlipidemia Status: Acute (5) Prediabetes: Code(s): R73.03 - Prediabetes Status: Acute (6) Hypothyroidism: Code(s): E03.9 - Hypothyroidism, unspecified Status: Acute (7) Gastroesophageal reflux disease: Code(s): K21.9 - Gastro-esophageal reflux disease without esophagitis Status: Acute (8) Acute cholecystitis: Code(s): K81.0 - Acute cholecystitis Status: Acute (9) Chronic low back pain with sciatica: Code(s): M54.40 - Lumbago with sciatica, unspecified side; G89.29 - Other chronic pain Status: Acute (10) Altered mental status: Code(s): R41.82 - Altered mental status, unspecified Status: Acute Plan 84-year-old female presenting ED with confusion and difficulty finding words. She had complicated hospitalization for sepsis due to acute cholecystitis DR Mckenzie 05/02-05/11. she completed zosyn, transitioned to Augmentin and discharged- had her outpt f/u with complains of nausea and vomitting. NIH of 1. Last known well 4:00 p.m. Patient is on Eliquis is not a tPA [place] te Symptoms are more consistent w/ delirium/encephalopathy vs CVA. no neuro deficit. CT ordered of her abdomen pelvis to evaluate gallbladder. Perc drain has been dislodged and her gallbladder is swollen and edematous. Her liver enzymes stable. She has been started on zosyn 3.375 q6h- 06/13/24 at 0030. Blood cultures collected and pending Urine is collected- follow cultures Incidental finding on CT- T12 compression fracture. No neurologic deficits. Pain meds as needed. Pain mngmnt, nausea control. TRy lidocaine patch- avoid narcotic pain meds. Continue other chronic meds: levothyroxine, omeprazole, atorvastatin once med list is completed.Pt daughter states that pt takes flomax that was just started. Pt is DNR. 06/14 surgery, Dr Chester saw pt last night. notes reviewed. Stroke was ruled out. Very likely cholecystitis causing altered mental status. Her vs are stable. White blood cell count is normal. Liver enzymes are normal as well. She is on IV antibiotics. NPO except for some ice chips per surgery, close observation in IMU. Expect to place another cholecystostomy tube on Saturday when the radiologist was available in the hospital. 06/15 Pt went into fast AF started on iv metoprolol iv bolus cardizem and Iv Cardizem drip procedure cancelled today continue to monitor on tele continue iv zosyn eliquis on hold for procedure Subjective Date/time seen: 06/15/24 16:08 Interval history: 84-year-old female with CAD, HTN and pre-DM,percutaneous cholecystectomy drain presenting for altered mental status. She was her base self earlier yesterday but later, around 4:00 p.m. the staff noticed that she was more confused. They reported garbled speech. no one sided weakness. The patient was sent to the emergency department for evaluation of a stroke. Pt planned cholecystostomy tube on Saturday however pt went into fast af Review of Systems Review of Systems: tachycardia Exam Narrative: drain in place Const: General: comfortable Resp: Effort & Inspection: normal respiratory effort Auscultation: clear to auscultation bilaterally Cardio: Rate: regular rate Rhythm: regular rhythm GI: Auscultation: normal bowel sounds Skin: General skin exam: normal color Neuro: Speech: normal speech Motor exam (neuro): Motor abnormalites present Other: pt is oriented to self and intermittently to place. Psych: Affect: normal affect Objective Data Vital Signs Vital Signs: Vital Signs - 24 hr 06/14/24 17:59 06/14/24 19:44 06/14/24 20:00 Temperature 36.6 C Pulse Rate 87 87 89 Respiratory Rate 24 H 20 Blood Pressure 126/59 L Pulse Oximetry 98 100 Oxygen Delivery Nasal Cannula Oxygen Flow Rate 2 06/14/24 20:00 06/14/24 20:00 06/14/24 21:08 Temperature Pulse Rate 88 87 Respiratory Rate 24 H Blood Pressure Pulse Oximetry 97 Oxygen Delivery Nasal Cannula Oxygen Flow Rate 2 06/14/24 22:00 06/14/24 23:48 06/15/24 00:00 Temperature 36.5 C Pulse Rate 98 104 H Respiratory Rate 18 Blood Pressure 146/75 H Pulse Oximetry 99 97 Oxygen Delivery Nasal Cannula Oxygen Flow Rate 2 06/15/24 00:00 06/15/24 02:00 06/15/24 02:59 Temperature Pulse Rate 87 85 85 Respiratory Rate 18 Blood Pressure Pulse Oximetry Oxygen Delivery Oxygen Flow Rate 06/15/24 04:00 06/15/24 04:00 06/15/24 04:00 Temperature 36.5 C Pulse Rate 88 93 Respiratory Rate 18 Blood Pressure 128/54 L Pulse Oximetry 97 98 Oxygen Delivery Nasal Cannula Oxygen Flow Rate 2 06/15/24 06:00 06/15/24 08:00 06/15/24 08:00 Temperature 36.6 C Pulse Rate 121 H 108 H Respiratory Rate 24 H Blood Pressure 114/81 Pulse Oximetry 99 97 Oxygen Delivery Nasal Cannula Oxygen Flow Rate 2 06/15/24 08:00 06/15/24 08:08 06/15/24 08:08 Temperature Pulse Rate 116 H 82 Respiratory Rate 20 Blood Pressure Pulse Oximetry 95 Oxygen Delivery Nasal Cannula Oxygen Flow Rate 2 06/15/24 08:56 06/15/24 10:00 06/15/24 10:47 Temperature Pulse Rate 130 H 130 H 127 H Respiratory Rate Blood Pressure Pulse Oximetry Oxygen Delivery Oxygen Flow Rate 06/15/24 12:00 06/15/24 12:00 06/15/24 12:00 Temperature 36.6 C Pulse Rate 90 124 H Respiratory Rate 20 Blood Pressure 105/48 L Pulse Oximetry 93 96 Oxygen Delivery Nasal Cannula Oxygen Flow Rate 2 06/15/24 13:07 06/15/24 13:28 06/15/24 14:00 Temperature Pulse Rate 102 H 112 H Respiratory Rate Blood Pressure 99/52 L 124/73 Pulse Oximetry Oxygen Delivery Oxygen Flow Rate 06/15/24 14:30 Temperature 36.6 C Pulse Rate 111 H Respiratory Rate 20 Blood Pressure 110/65 Pulse Oximetry 100 Oxygen Delivery Oxygen Flow Rate Intake/Output Intake/Output: Intake & Output 06/12/24 06/13/24 06/14/24 06/15/24 23:59 23:59 23:59 23:59 Intake Total 2250 960 1111.7 Output Total 320 11 Balance 6723 931 1371.7 Meds/Results Medications: Active Medications Generic Name Dose Route Start Last Admin Trade Name Freq PRN Reason Stop Dose Admin Acetaminophen 1,000 mg 06/14/24 11:47 06/15/24 15:35 Acetaminophen 500 Mg Tablet PO 1,000 mg TID PRN Administration pain Albuterol/Ipratropium 3 ml 06/14/24 14:00 06/15/24 08:06 Ipratropium 0.5 Mg/Albuterol Sulfate 2.5 Mg Ampul.Neb 3 Ml INHALATION 3 ml Q6HRT MELISSA Administration Apixaban 5 mg 06/14/24 11:00 06/14/24 11:55 Apixaban 5 Mg Tablet PO Not Given Q12HR MELISSA Atorvastatin Calcium 40 mg 06/14/24 11:00 06/15/24 08:56 Atorvastatin 40 Mg Tablet PO 40 mg DAILY MELISSA Administration Celecoxib 100 mg 06/14/24 11:00 06/15/24 09:15 Celecoxib 100 Mg Capsule PO Not Given Q12HR MELISSA Cyanocobalamin 500 mcg 06/14/24 11:00 06/15/24 08:55 Cyanocobalamin 500 Mcg Tablet PO 500 mcg QAM MELISSA Administration Cyanocobalamin 2,000 mcg 06/15/24 09:00 06/15/24 08:56 Cyanocobalamin 1,000 Mcg Tablet PO 2,000 mcg QAM MELISSA Administration Piperacillin/Tazobactam/Dextrose 3.375 gm in 50 mls @ 100 mls/hr 06/13/24 06:00 06/15/24 11:59 Zosyn 3.375 Gm/Ns 50 Ml IVPB 100 mls/hr Q6HR MELISSA Administration Lactated Ringer's 1,000 mls @ 50 mls/hr 06/14/24 11:50 06/15/24 06:37 Lr - Lactated Ringers Iv IV CONT 50 mls/hr .Q20H MELISSA Administration Diltiazem HCl 100 mg in 100 mls @ 5 mls/hr 06/15/24 11:25 06/15/24 13:07 Cardizem 100 Mg/100 Ml IV CONT 5 mg/hr .Q20H MELISSA 5 mls/hr Administration 5 MG/HR Levothyroxine Sodium 25 mcg 06/14/24 06:30 06/15/24 05:49 Levothyroxine Sodium 25 Mcg Tablet PO Not Given DAILY@0630 [facility] Lidocaine 1 patch 06/15/24 09:00 06/15/24 08:56 Lidocaine 5% Patch TOPICAL 1 patch DAILY MELISSA Administration Metoprolol Succinate 200 mg 06/14/24 09:00 06/15/24 08:56 Metoprolol Succinate Ext Rel 100 Mg Tabcr PO 200 mg DAILY MELISSA Administration Ondansetron HCl 4 mg 06/14/24 10:55 06/14/24 14:28 Ondansetron Hcl Odt 4 Mg Tablet BY MOUTH 4 mg BID PRN Administration Nausea And Vomiting Pantoprazole Sodium 40 mg 06/14/24 10:55 06/15/24 08:56 Pantoprazole 40 Mg Tablet PO 40 mg QAM MELISSA Administration Tamsulosin HCl 0.4 mg 06/14/24 09:00 06/14/24 12:23 Tamsulosin Hcl 0.4 Mg Capsule PO 0.4 mg DAILY MELISSA Administration Tamsulosin HCl 0.4 mg 06/14/24 11:50 06/15/24 08:55 Tamsulosin Hcl 0.4 Mg Capsule PO 0.4 mg QAM MELISSA Administration Radiology Results: ITS Impressions Head/Neck CTA 06/12/24 22:24 IMPRESSION: 1. Normal CTA head and neck. Percent stenosis per NASCET criteria is 0%. 2. Dominant left vertebral artery. Abdomen/Pelvis CT 06/12/24 22:45 IMPRESSION: 1. Cholecystitis with cholecystostomy tube outside the gallbladder. 2. Filling defect in the urinary bladder suggestive of a clot. Clinical correlation advised. 3. Increased compression of T12 suggestive of acute fracture. Chronic fracture in L2. Chest X-Ray 06/13/24 06:50 Impression: Small pleural effusions with probable mild bibasilar pulmonary edema/atelectasis. Labs Labs: Laboratory Results - last 24 hr 06/15/24 06/15/24 05:28 10:00 WBC 5.6 RBC 3.00 L Hgb 8.6 L Hct 29.9 L MCV 99.7 MCH 28.7 MCHC 28.8 L RDW 14.9 H Plt Count 207 MPV 9.7 PT 16.4 H D INR 1.3 APTT 51.3 H Sodium 142 Potassium 3.8 Chloride 106 Carbon Dioxide 30 Anion Gap 6 BUN 9 Creatinine 0.48 L Estim Creat Clear Calc 69 Estimated GFR > 60 Glucose 106 Calcium 8.4
[2024-06-15] MEDS: CELECOXIB 100 MG CAPSULE PO (21:48)
[2024-06-16] VITALS (24 sets, daily range): BP systolic 105–134; BP diastolic 50–69; PULSE 85–203; RESP 12–24; TEMP 36.3–36.8; O2SAT 88–100
[2024-06-16] MEDS: PIPERACILLN/TAZ 3.375GM/NS50ML 3.375 GM/50 ML BAG IVPB ×4 (00:09→16:44)
[2024-06-16] MEDS: IPRATROPIUM 0.5 MG/ALBUTEROL SULFATE 2.5 MG AMPUL.NEB 3 ML INHALATION ×4 (01:49→20:28)
[2024-06-16 04:36] LABS: Hematocrit 31.6 % (37.0-47.0); Hemoglobin 9.2 g/dL (12.0-15.0); Mean Corpuscular HGB Conc 29.1 g/dl (32-36); Mean Corpuscular Hemoglobin 29.5 pg (26-34); Mean Corpuscular Volume 101.3 fl (80-100); Mean Platelet Volume 10.4 fl (7.4-10.4); Platelet Count Result 226 k/mm3 (150-375); Red Blood Count 3.12 M/mm3 (4.2-5.4); Red Cell Distribution Width 15.3 % (11.5-14.5); White Blood Count 5.8 K/mm3 (4.5-10.0)
[2024-06-16 04:52] LABS: Anion Gap 7 mmol/L (4-12); Blood Urea Nitrogen 11 mg/dL (7-17); Calcium 8.4 mg/dL (8.4-10.2); Carbon Dioxide 28 mmol/L (22-30); Chloride 106 mmol/L (98-107); Estimated CRCL calculation 68 ml/min; Estimated Glomerular Filt Rate > 60; Glucose 99 mg/dL (65-110); Potassium 3.5 mmol/L (3.4-5.0); Sodium 141 mmol/L (137-145)
[2024-06-16] MEDS: dilTIAZem 100 MG/100 ML 100 MG/100 ML BAG IV CONT (06:00)
[2024-06-16] MEDS: LEVOTHYROXINE SODIUM 25 MCG TABLET PO (06:48)
[2024-06-16] MEDS: LACTATED RINGERS 1,000 ML 50 ML IV CONT (09:07)
[2024-06-16] MEDS: LIDOCAINE 5% PATCH 1 PATCH TOPICAL (09:08)
[2024-06-16] MEDS: CYANOCOBALAMIN 1,000 MCG TABLET 2000 MCG PO (09:09)
[2024-06-16] MEDS: TAMSULOSIN HCL 0.4 MG CAPSULE PO ×2 (09:09)
[2024-06-16] MEDS: ATORVASTATIN 40 MG TABLET PO (09:09)
[2024-06-16] MEDS: CYANOCOBALAMIN 500 MCG TABLET PO (09:10)
[2024-06-16] MEDS: PANTOPRAZOLE 40 MG TABLET PO (09:10)
--- NOTE | 2024-06-16 09:23 | ECG_ITS ---
Test Date: 2024-06-16 09:42:12 Measurements Intervals [place] Rate: 88 P: 26 [place]: 157 QRS: -39 QRSD: 101 T: -89 QT: 375 QTc: 454 Interpretive Statements SINUS RHYTHM WITH OCCASIONAL SUPRAVENTRICULAR PREMATURE COMPLEXES LEFT AXIS DEVIATION [QRS AXIS < -30] LOW QRS VOLTAGE IN PRECORDIAL LEADS [QRS DEFLECTION < 1.0 mV IN CHEST LEADS] LEFT VENTRICULAR HYPERTROPHY AND ST-T CHANGE [VOLTAGE CRITERIA PLUS ST/T ABNORMALITY] POSSIBLE ANTERIOR MYOCARDIAL INFARCTION , PROBABLY OLD [30 ms Q WAVE IN V3/V4, OR R < 0.2 mV IN V4] Compared to ECG 06/15/2024 10:04:19 ATRIAL FIBRILLATION NO LONGER PRESENT Electronically Signed On 06-16-2024 16:57:55 CDT by Paul Franco M.D.
[2024-06-16 09:58] LABS: Iron 43 ug/dL (37-170)
[2024-06-16 10:07] LABS: Percent Iron Saturation 28 % (20-50)
[2024-06-16 10:58] LABS: Folic Acid 7.4 ng/mL (2.76->20); Vitamin B12 > 1000.0 pg/mL (239-931)
--- NOTE | 2024-06-16 10:59 | PC.NURSE ---
Notified Leigh Ann Leon that EKG confirmed Sinus rhythmm. HR 88. Received order to hold drip and She will place PO orders.
[2024-06-16] MEDS: FUROSEMIDE INJ 40 MG/4 ML VIAL 20 MG IV PUSH (11:43)
--- NOTE | 2024-06-16 12:40 | P.PNCA_ITS ---
Progress Note: A&P Assessment and Plan (1) Atrial fibrillation: Qualifiers: Atrial fibrillation type: unspecified Qualified Code(s): I48.91 - Unspecified atrial fibrillation Code(s): I48.91 - Unspecified atrial fibrillation Status: Acute Assessment and Plan: She has paroxysmal atrial fibrillation. Had atrial fibrillation with rapid ventricular response in the setting of acute cholecystitis, but is now back in sinus rhythm. * Discontinue diltiazem drip and start oral diltiazem 120mg p.o. daily * apixaban is on hold in anticipation of surgery. Resume when OK with surgery. * Continue telemetry monitoring * Cardiology will sign off please call with questions (2) Coronary artery disease: Code(s): I25.10 - Atherosclerotic heart disease of [place] coronary artery without angina pectoris Status: Acute Assessment and Plan: Stable, no anginal symptoms. Continue statin. Not on ASA as she is on DOAC (3) Essential hypertension: Code(s): I10 - Essential (primary) hypertension Status: Acute Assessment and Plan: At goal. (4) Mixed hyperlipidemia: Code(s): E78.2 - Mixed hyperlipidemia Status: Acute Assessment and Plan: Continue statin (5) Acute cholecystitis: Code(s): K81.0 - Acute cholecystitis Status: Acute Assessment and Plan: Plan for cholecystostomy Subjective Date/time seen: 06/16/24 12:40 Interval history: Cardiology follow up visit Review of Systems Review of Systems: All systems reviewed & are unremarkable except as noted in HPI and below Exam Const: General: comfortable, no acute distress, alert and awake Orientation/consciousness: patient oriented x3 HENMT: Head: normal to inspection Eyes: General: appearance normal, both eyes and all related structures Pupils: Equal, round and reactive pupils present Neck: Neck: normal visual inspection, supple and no JVD Carotids: normal carotid upstroke Resp: Effort & Inspection: normal respiratory effort Auscultation: clear to auscultation bilaterally Cardio: Rate: regular rate Rhythm: regular rhythm Heart sounds: S1 normal heart sound present, S2 normal heart sound present and no murmurs GI: Auscultation: normal bowel sounds Skin: General skin exam: normal color Neuro: General: patient oriented x3 Cranial nerves: Yes Equal, round and reactive pupils present Extrem: General: normal to inspection Psych: Appearance: grossly normal Mental Status: mental status grossly normal Objective Data Vital Signs Vital Signs: Vital Signs - 24 hr 06/15/24 13:07 06/15/24 13:28 06/15/24 14:00 Temperature Pulse Rate 102 H 112 H Respiratory Rate Blood Pressure 99/52 L 124/73 Pulse Oximetry Oxygen Delivery Oxygen Flow Rate Fraction of Inspired Oxygen 06/15/24 14:30 06/15/24 16:00 06/15/24 16:00 Temperature 36.6 C Pulse Rate 111 H 108 H Respiratory Rate 20 Blood Pressure 110/65 Pulse Oximetry 100 95 Oxygen Delivery Nasal Cannula Oxygen Flow Rate 2 Fraction of Inspired Oxygen 06/15/24 16:00 06/15/24 16:00 06/15/24 16:30 Temperature 36.7 C Pulse Rate 97 97 111 H Respiratory Rate 20 Blood Pressure 124/65 124/65 110/65 Pulse Oximetry 100 Oxygen Delivery Oxygen Flow Rate Fraction of Inspired Oxygen 06/15/24 17:30 06/15/24 17:30 06/15/24 18:00 Temperature 36.7 C Pulse Rate 84 84 98 Respiratory Rate 18 Blood Pressure 110/58 L 110/58 L Pulse Oximetry 100 Oxygen Delivery Oxygen Flow Rate Fraction of Inspired Oxygen 06/15/24 18:10 06/15/24 20:00 06/15/24 20:00 Temperature 36.6 C Pulse Rate 95 110 H 112 H Respiratory Rate 18 18 Blood Pressure 111/57 L 98/64 L Pulse Oximetry 97 97 Oxygen Delivery Nasal Cannula Oxygen Flow Rate 2 Fraction of Inspired Oxygen 06/15/24 20:00 06/15/24 20:00 06/15/24 20:53 Temperature Pulse Rate 110 H 91 Respiratory Rate Blood Pressure 98/64 L Pulse Oximetry 98 Oxygen Delivery Nasal Cannula Oxygen Flow Rate 2 Fraction of Inspired Oxygen 28 06/15/24 20:53 06/15/24 21:00 06/15/24 22:00 Temperature Pulse Rate 104 H 96 112 H Respiratory Rate 20 20 Blood Pressure 99/68 L Pulse Oximetry Oxygen Delivery Oxygen Flow Rate Fraction of Inspired Oxygen 06/15/24 22:00 06/15/24 22:00 06/15/24 23:57 Temperature 36.6 C Pulse Rate 112 H 112 H 101 H Respiratory Rate 20 Blood Pressure 99/68 L 116/59 L Pulse Oximetry 100 Oxygen Delivery Oxygen Flow Rate Fraction of Inspired Oxygen 06/16/24 00:00 06/16/24 00:00 06/16/24 00:00 Temperature Pulse Rate 101 H 102 H 102 H Respiratory Rate Blood Pressure 116/59 L Pulse Oximetry 97 Oxygen Delivery Nasal Cannula Oxygen Flow Rate 2 Fraction of Inspired Oxygen 06/16/24 01:49 06/16/24 01:57 06/16/24 01:58 Temperature Pulse Rate 105 H 98 203 H Respiratory Rate 18 18 20 Blood Pressure 105/69 Pulse Oximetry 100 Oxygen Delivery Oxygen Flow Rate Fraction of Inspired Oxygen 06/16/24 02:00 06/16/24 02:00 06/16/24 04:00 Temperature 36.4 C Pulse Rate 103 H 103 H 112 H Respiratory Rate 20 Blood Pressure 105/69 114/67 Pulse Oximetry 100 Oxygen Delivery Oxygen Flow Rate Fraction of Inspired Oxygen 06/16/24 04:00 06/16/24 04:00 06/16/24 04:00 Temperature Pulse Rate 95 95 112 H Respiratory Rate Blood Pressure 114/67 Pulse Oximetry 97 Oxygen Delivery Nasal Cannula Oxygen Flow Rate 2 Fraction of Inspired Oxygen 06/16/24 05:57 06/16/24 06:00 06/16/24 06:00 Temperature Pulse Rate 92 115 H Respiratory Rate 18 Blood Pressure 112/56 L 112/56 L Pulse Oximetry 99 Oxygen Delivery Oxygen Flow Rate Fraction of Inspired Oxygen 06/16/24 06:00 06/16/24 07:55 06/16/24 07:55 Temperature Pulse Rate 115 H 117 H Respiratory Rate 20 Blood Pressure 112/56 L Pulse Oximetry 97 Oxygen Delivery Nasal Cannula Oxygen Flow Rate 2 Fraction of Inspired Oxygen 28 06/16/24 08:00 06/16/24 08:00 06/16/24 08:00 Temperature 36.3 C L Pulse Rate 114 H 102 H Respiratory Rate 16 Blood Pressure 115/62 Pulse Oximetry 100 95 Oxygen Delivery Nasal Cannula Oxygen Flow Rate 2 Fraction of Inspired Oxygen 06/16/24 08:10 06/16/24 08:21 06/16/24 10:00 Temperature 36.4 C Pulse Rate 123 H 90 Respiratory Rate 24 H 12 Blood Pressure 128/62 Pulse Oximetry 88 L 100 Oxygen Delivery Room Air Oxygen Flow Rate Fraction of Inspired Oxygen 06/16/24 10:00 06/16/24 12:00 06/16/24 12:00 Temperature 36.7 C Pulse Rate 89 92 Respiratory Rate 20 Blood Pressure 123/59 L Pulse Oximetry 95 97 Oxygen Delivery Nasal Cannula Oxygen Flow Rate 2 Fraction of Inspired Oxygen Intake/Output Intake/Output: Intake & Output 06/13/24 06/14/24 06/15/24 06/16/24 23:59 23:59 23:59 23:59 Intake Total 2250 960 1946.1 1200 Output Total 320 11 650 200 Balance 5356 583 5756.1 1000 Meds/Results Medications: Active Medications Generic Name Dose Route Start Last Admin Trade Name Freq PRN Reason Stop Dose Admin Acetaminophen 1,000 mg 06/14/24 11:47 06/15/24 15:35 Acetaminophen 500 Mg Tablet PO 1,000 mg TID PRN Administration pain Albuterol/Ipratropium 3 ml 06/14/24 14:00 06/16/24 07:55 Ipratropium 0.5 Mg/Albuterol Sulfate 2.5 Mg Ampul.Neb 3 Ml INHALATION 3 ml Q6HRT MELISSA Administration Apixaban 5 mg 06/14/24 11:00 06/14/24 11:55 Apixaban 5 Mg Tablet PO Not Given Q12HR MELISSA Atorvastatin Calcium 40 mg 06/14/24 11:00 06/16/24 09:09 Atorvastatin 40 Mg Tablet PO 40 mg DAILY MELISSA Administration Celecoxib 100 mg 06/14/24 11:00 06/16/24 11:40 Celecoxib 100 Mg Capsule PO Not Given Q12HR MELISSA Cyanocobalamin 500 mcg 06/14/24 11:00 06/16/24 09:10 Cyanocobalamin 500 Mcg Tablet PO 500 mcg QAM MELISSA Administration Cyanocobalamin 2,000 mcg 06/15/24 09:00 06/16/24 09:09 Cyanocobalamin 1,000 Mcg Tablet PO 2,000 mcg QAM MELISSA Administration Piperacillin/Tazobactam/Dextrose 3.375 gm in 50 mls @ 100 mls/hr 06/13/24 06:00 06/16/24 11:44 Zosyn 3.375 Gm/Ns 50 Ml IVPB 100 mls/hr Q6HR MELISSA Administration Lactated Ringer's 1,000 mls @ 50 mls/hr 06/14/24 11:50 06/16/24 09:07 Lr - Lactated Ringers Iv IV CONT 50 mls/hr .Q20H MELISSA Administration Diltiazem HCl 100 mg in 100 mls @ 5 mls/hr 06/15/24 11:25 06/16/24 06:00 Cardizem 100 Mg/100 Ml IV CONT 5 mg/hr .Q20H MELISSA 5 mls/hr Administration 5 MG/HR Levothyroxine Sodium 25 mcg 06/14/24 06:30 06/16/24 06:48 Levothyroxine Sodium 25 Mcg Tablet PO 25 mcg DAILY@0630 MELISSA Administration Lidocaine 1 patch 06/15/24 09:00 06/16/24 09:08 Lidocaine 5% Patch TOPICAL 1 patch DAILY MELISSA Administration Metoprolol Succinate 200 mg 06/14/24 09:00 06/15/24 08:56 Metoprolol Succinate Ext Rel 100 Mg Tabcr PO 200 mg DAILY MELISSA Administration Ondansetron HCl 4 mg 06/14/24 10:55 06/14/24 14:28 Ondansetron Hcl Odt 4 Mg Tablet BY MOUTH 4 mg BID PRN Administration Nausea And Vomiting Pantoprazole Sodium 40 mg 06/14/24 10:55 06/16/24 09:10 Pantoprazole 40 Mg Tablet PO 40 mg QAM MELISSA Administration Tamsulosin HCl 0.4 mg 06/14/24 09:00 06/16/24 09:09 Tamsulosin Hcl 0.4 Mg Capsule PO 0.4 mg DAILY MELISSA Administration Radiology Results: ITS Impressions Head/Neck CTA 06/12/24 22:24 IMPRESSION: 1. Normal CTA head and neck. Percent stenosis per NASCET criteria is 0%. 2. Dominant left vertebral artery. Abdomen/Pelvis CT 06/12/24 22:45 IMPRESSION: 1. Cholecystitis with cholecystostomy tube outside the gallbladder. 2. Filling defect in the urinary bladder suggestive of a clot. Clinical correlation advised. 3. Increased compression of T12 suggestive of acute fracture. Chronic fracture in L2. Chest X-Ray 06/13/24 06:50 Impression: Small pleural effusions with probable mild bibasilar pulmonary edema/atelectasis. Labs Labs: Laboratory Results - last 24 hr 06/16/24 04:14 WBC 5.8 RBC 3.12 L Hgb 9.2 L Hct 31.6 L MCV 101.3 H MCH 29.5 MCHC 29.1 L RDW 15.3 H Plt Count 226 MPV 10.4 Sodium 141 Potassium 3.5 Chloride 106 Carbon Dioxide 28 Anion Gap 7 BUN 11 Creatinine 0.49 L Estim Creat Clear Calc 68 Estimated GFR > 60 Glucose 99 Calcium 8.4 Iron 43 TIBC 155 L % Saturation 28 Ferritin 557.00 H Vitamin B12 > 1000.0 H Folate 7.4 Quality VTE Prophylaxis VTE prophylaxis: pharmacologic ordered
--- NOTE | 2024-06-16 14:48 | P.PNGS_ITS ---
Progress Note: A&P Assessment and Plan (1) Cholecystitis: Code(s): K81.9 - Cholecystitis, unspecified Status: Acute Assessment and Plan: Acute on chronic cholecystitis that was treated with cholecystostomy tube placement on 05/06/24. Cholecystostomy tube cholangiogram last week showed an obstruction of the cystic duct. The existing cholecystostomy tube may no longer be within the lumen of the gallbladder, which is distended. WBC count and LFTs normal. She is not having any abdominal pain or back pain. We have ordered placement of another cholecystostomy tube under image guidance that can hopefully be done in Radiology today now that her atrial fibrillation is better controlled. She is NPO for this procedure today. Plan I have discussed the patient's case and plan of care with Dr. Chester. Subjective Subjective Date/Time Seen: 06/16/24 10:48 Patient reports: no new complaints, feels better and afebrile Interval history: Patient doing well today. She denies any abdominal or back pain. No nausea. She has no specific complaints today. 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 She was able to tolerate clear liquids yesterday evening without issues. Exam Const: General: comfortable and no acute distress Orien tation/consciousness: patient oriented x3 GI: Inspection: non-distended GI Palp: Yes Soft to palpation, Yes Tenderness to palpation present (GI) (mild RUQ tenderness near cholecystostomy tube), No Guarding due to palpation present (GI) and No Rebound tenderness present Auscultation: normal bowel sounds Other: RUQ cholecystostomy tube with scant linton purulent appearing drainage in the bag and tubing Objective Data Vital Signs Vital Signs: Vital Signs - 24 hr 06/15/24 16:00 06/15/24 16:00 06/15/24 16:00 Temperature 98.1 F Pulse Rate 108 H 97 Respiratory Rate 20 Blood Pressure 124/65 Pulse Oximetry 95 100 Oxygen Delivery Nasal Cannula Oxygen Flow Rate 2 Fraction of Inspired Oxygen 06/15/24 16:00 06/15/24 16:30 06/15/24 17:30 Temperature 98.1 F Pulse Rate 97 111 H 84 Respiratory Rate 18 Blood Pressure 124/65 110/65 110/58 L Pulse Oximetry 100 Oxygen Delivery Oxygen Flow Rate Fraction of Inspired Oxygen 06/15/24 17:30 06/15/24 18:00 06/15/24 18:10 Temperature Pulse Rate 84 98 95 Respiratory Rate Blood Pressure 110/58 L 111/57 L Pulse Oximetry Oxygen Delivery Oxygen Flow Rate Fraction of Inspired Oxygen 06/15/24 20:00 06/15/24 20:00 06/15/24 20:00 Temperature 97.8 F Pulse Rate 110 H 112 H 110 H Respiratory Rate 18 18 Blood Pressure 98/64 L 98/64 L Pulse Oximetry 97 97 Oxygen Delivery Nasal Cannula Oxygen Flow Rate 2 Fraction of Inspired Oxygen 06/15/24 20:00 06/15/24 20:53 06/15/24 20:53 Temperature Pulse Rate 91 104 H Respiratory Rate 20 Blood Pressure Pulse Oximetry 98 Oxygen Delivery Nasal Cannula Oxygen Flow Rate 2 Fraction of Inspired Oxygen 28 06/15/24 21:00 06/15/24 22:00 06/15/24 22:00 Temperature Pulse Rate 96 112 H 112 H Respiratory Rate 20 Blood Pressure 99/68 L 99/68 L Pulse Oximetry Oxygen Delivery Oxygen Flow Rate Fraction of Inspired Oxygen 06/15/24 22:00 06/15/24 23:57 06/16/24 00:00 Temperature 97.9 F Pulse Rate 112 H 101 H 101 H Respiratory Rate 20 Blood Pressure 116/59 L 116/59 L Pulse Oximetry 100 Oxygen Delivery Oxygen Flow Rate Fraction of Inspired Oxygen 06/16/24 00:00 06/16/24 00:00 06/16/24 01:49 Temperature Pulse Rate 102 H 102 H 105 H Respiratory Rate 18 Blood Pressure Pulse Oximetry 97 Oxygen Delivery Nasal Cannula Oxygen Flow Rate 2 Fraction of Inspired Oxygen 06/16/24 01:57 06/16/24 01:58 06/16/24 02:00 Temperature Pulse Rate 98 203 H 103 H Respiratory Rate 18 20 Blood Pressure 105/69 Pulse Oximetry 100 Oxygen Delivery Oxygen Flow Rate Fraction of Inspired Oxygen 06/16/24 02:00 06/16/24 04:00 06/16/24 04:00 Temperature 97.6 F Pulse Rate 103 H 112 H 95 Respiratory Rate 20 Blood Pressure 105/69 114/67 Pulse Oximetry 100 Oxygen Delivery Oxygen Flow Rate Fraction of Inspired Oxygen 06/16/24 04:00 06/16/24 04:00 06/16/24 05:57 Temperature Pulse Rate 95 112 H Respiratory Rate 18 Blood Pressure 114/67 112/56 L Pulse Oximetry 97 99 Oxygen Delivery Nasal Cannula Oxygen Flow Rate 2 Fraction of Inspired Oxygen 06/16/24 06:00 06/16/24 06:00 06/16/24 06:00 Temperature Pulse Rate 92 115 H 115 H Respiratory Rate Blood Pressure 112/56 L 112/56 L Pulse Oximetry Oxygen Delivery Oxygen Flow Rate Fraction of Inspired Oxygen 06/16/24 07:55 06/16/24 07:55 06/16/24 08:00 Temperature 97.4 F L Pulse Rate 117 H 114 H Respiratory Rate 20 16 Blood Pressure 115/62 Pulse Oximetry 97 100 Oxygen Delivery Nasal Cannula Oxygen Flow Rate 2 Fraction of Inspired Oxygen 28 06/16/24 08:00 06/16/24 08:00 06/16/24 08:10 Temperature Pulse Rate 102 H 123 H Respiratory Rate 24 H Blood Pressure Pulse Oximetry 95 Oxygen Delivery Nasal Cannula Oxygen Flow Rate 2 Fraction of Inspired Oxygen 06/16/24 08:21 06/16/24 10:00 06/16/24 10:00 Temperature 97.6 F Pulse Rate 90 89 Respiratory Rate 12 Blood Pressure 128/62 Pulse Oximetry 88 L 100 Oxygen Delivery Room Air Oxygen Flow Rate Fraction of Inspired Oxygen 06/16/24 12:00 06/16/24 12:00 06/16/24 14:15 Temperature 98.1 F Pulse Rate 92 94 Respiratory Rate 20 20 Blood Pressure 123/59 L Pulse Oximetry 95 97 Oxygen Delivery Nasal Cannula Oxygen Flow Rate 2 Fraction of Inspired Oxygen 06/16/24 14:21 Temperature Pulse Rate 97 Respiratory Rate 20 Blood Pressure Pulse Oximetry Oxygen Delivery Oxygen Flow Rate Fraction of Inspired Oxygen Intake/Output Intake/Output: Intake & Output 06/13/24 06/14/24 06/15/24 06/16/24 23:59 23:59 23:59 23:59 Intake Total 2250 960 1946.1 1200 Output Total 320 11 650 200 Balance 9261 845 6554.1 1000 Meds/Results Medications: Active Medications Generic Name Dose Route Start Last Admin Trade Name Freq PRN Reason Stop Dose Admin Acetaminophen 1,000 mg 06/14/24 11:47 06/15/24 15:35 Acetaminophen 500 Mg Tablet PO 1,000 mg TID PRN Administration pain Albuterol/Ipratropium 3 ml 06/14/24 14:00 06/16/24 14:14 Ipratropium 0.5 Mg/Albuterol Sulfate 2.5 Mg Ampul.Neb 3 Ml INHALATION 3 ml Q6HRT MELISSA Administration Apixaban 5 mg 06/14/24 11:00 06/14/24 11:55 Apixaban 5 Mg Tablet PO Not Given Q12HR MELISSA Atorvastatin Calcium 40 mg 06/14/24 11:00 06/16/24 09:09 Atorvastatin 40 Mg Tablet PO 40 mg DAILY MELISSA Administration Celecoxib 100 mg 06/14/24 11:00 06/16/24 11:40 Celecoxib 100 Mg Capsule PO Not Given Q12HR MELISSA Cyanocobalamin 500 mcg 06/14/24 11:00 06/16/24 09:10 Cyanocobalamin 500 Mcg Tablet PO 500 mcg QAM MELISSA Administration Cyanocobalamin 2,000 mcg 06/15/24 09:00 06/16/24 09:09 Cyanocobalamin 1,000 Mcg Tablet PO 2,000 mcg QAM MELISSA Administration Diltiazem HCl 120 mg 06/17/24 09:00 Diltiazem Hcl Cd 120 Mg Cap.24hr PO QAM MELISSA Piperacillin/Tazobactam/Dextrose 3.375 gm in 50 mls @ 100 mls/hr 06/13/24 06:00 06/16/24 11:44 Zosyn 3.375 Gm/Ns 50 Ml IVPB 100 mls/hr Q6HR MELISSA Administration Lactated Ringer's 1,000 mls @ 50 mls/hr 06/14/24 11:50 06/16/24 09:07 Lr - Lactated Ringers Iv IV CONT 50 mls/hr .Q20H MELISSA Administration Diltiazem HCl 100 mg in 100 mls @ 5 mls/hr 06/15/24 11:25 06/16/24 06:00 Cardizem 100 Mg/100 Ml IV CONT 5 mg/hr .Q20H MELISSA 5 mls/hr Administration 5 MG/HR Levothyroxine Sodium 25 mcg 06/14/24 06:30 06/16/24 06:48 Levothyroxine Sodium 25 Mcg Tablet PO 25 mcg DAILY@0630 MELISSA Administration Lidocaine 1 patch 06/15/24 09:00 06/16/24 09:08 Lidocaine 5% Patch TOPICAL 1 patch DAILY MELISSA Administration Metoprolol Succinate 200 mg 06/14/24 09:00 06/15/24 08:56 Metoprolol Succinate Ext Rel 100 Mg Tabcr PO 200 mg DAILY MELISSA Administration Ondansetron HCl 4 mg 06/14/24 10:55 06/14/24 14:28 Ondansetron Hcl Odt 4 Mg Tablet BY MOUTH 4 mg BID PRN Administration Nausea And Vomiting Pantoprazole Sodium 40 mg 06/14/24 10:55 06/16/24 09:10 Pantoprazole 40 Mg Tablet PO 40 mg QAM MELISSA Administration Tamsulosin HCl 0.4 mg 06/14/24 09:00 06/16/24 09:09 Tamsulosin Hcl 0.4 Mg Capsule PO 0.4 mg DAILY MELISSA Administration Radiology Results: ITS Impressions Head/Neck CTA 06/12/24 22:24 IMPRESSION: 1. Normal CTA head and neck. Percent stenosis per NASCET criteria is 0%. 2. Dominant left vertebral artery. Abdomen/Pelvis CT 06/12/24 22:45 IMPRESSION: 1. Cholecystitis with cholecystostomy tube outside the gallbladder. 2. Filling defect in the urinary bladder suggestive of a clot. Clinical correlation advised. 3. Increased compression of T12 suggestive of acute fracture. Chronic fracture in L2. Chest X-Ray 06/13/24 06:50 Impression: Small pleural effusions with probable mild bibasilar pulmonary edema/atelectasis. Labs Labs: Laboratory Results - last 24 hr 06/16/24 04:14 WBC 5.8 RBC 3.12 L Hgb 9.2 L Hct 31.6 L MCV 101.3 H MCH 29.5 MCHC 29.1 L RDW 15.3 H Plt Count 226 MPV 10.4 Sodium 141 Potassium 3.5 Chloride 106 Carbon Dioxide 28 Anion Gap 7 BUN 11 Creatinine 0.49 L Estim Creat Clear Calc 68 Estimated GFR > 60 Glucose 99 Calcium 8.4 Iron 43 TIBC 155 L % Saturation 28 Ferritin 557.00 H Vitamin B12 > 1000.0 H Folate 7.4
--- NOTE | 2024-06-16 15:49 | PM.IMPN ---
Progress Note: A&P Assessment and Plan (1) Essential hypertension: Code(s): I10 - Essential (primary) hypertension Status: Acute (2) Coronary artery disease involving [place] coronary artery of [place] heart: Code(s): I25.10 - Atherosclerotic heart disease of [place] coronary artery without angina pectoris Status: Acute (3) Atrial fibrillation: Qualifiers: Atrial fibrillation type: unspecified Qualified Code(s): I48.91 - Unspecified atrial fibrillation Code(s): I48.91 - Unspecified atrial fibrillation Status: Acute (4) Mixed hyperlipidemia: Code(s): E78.2 - Mixed hyperlipidemia Status: Acute (5) Prediabetes: Code(s): R73.03 - Prediabetes Status: Acute (6) Hypothyroidism: Code(s): E03.9 - Hypothyroidism, unspecified Status: Acute (7) Gastroesophageal reflux disease: Code(s): K21.9 - Gastro-esophageal reflux disease without esophagitis Status: Acute (8) Acute cholecystitis: Code(s): K81.0 - Acute cholecystitis Status: Acute (9) Chronic low back pain with sciatica: Code(s): M54.40 - Lumbago with sciatica, unspecified side; G89.29 - Other chronic pain Status: Acute (10) Altered mental status: Code(s): R41.82 - Altered mental status, unspecified Status: Acute Plan Malfunctioning Cholecystotomy tube For replacement by surgery surgery on board Recent Acute cholecystitis on Abx and Cholecystostomy continue above care Afib Converted to NSR on cardizem infusion Continue BB per cardiology on Eliquis HTN Titrate home meds with clinical course CAD continue home meds DVT prophylaxis on Eliquis Subjective Date/time seen: 06/16/24 15:49 Interval history: Comfortable at bedside Review of Systems Review of Systems: tachycardia All systems reviewed & are unremarkable except as noted in HPI and below Exam Narrative: drain in place Const: General: comfortable Resp: Effort & Inspection: normal respiratory effort Auscultation: clear to auscultation bilaterally Cardio: Rate: regular rate Rhythm: regular rhythm GI: Auscultation: normal bowel sounds Skin: General skin exam: normal color Neuro: Speech: normal speech Motor exam (neuro): Motor abnormalites present Other: pt is oriented to self and intermittently to place. Psych: Affect: normal affect Objective Data Vital Signs Vital Signs: Vital Signs - 24 hr 06/15/24 16:00 06/15/24 16:00 06/15/24 16:00 Temperature 98.1 F Pulse Rate 108 H 97 Respiratory Rate 20 Blood Pressure 124/65 Pulse Oximetry 95 100 Oxygen Delivery Nasal Cannula Oxygen Flow Rate 2 Fraction of Inspired Oxygen 06/15/24 16:00 06/15/24 16:30 06/15/24 17:30 Temperature 98.1 F Pulse Rate 97 111 H 84 Respiratory Rate 18 Blood Pressure 124/65 110/65 110/58 L Pulse Oximetry 100 Oxygen Delivery Oxygen Flow Rate Fraction of Inspired Oxygen 06/15/24 17:30 06/15/24 18:00 06/15/24 18:10 Temperature Pulse Rate 84 98 95 Respiratory Rate Blood Pressure 110/58 L 111/57 L Pulse Oximetry Oxygen Delivery Oxygen Flow Rate Fraction of Inspired Oxygen 06/15/24 20:00 06/15/24 20:00 06/15/24 20:00 Temperature 97.8 F Pulse Rate 110 H 112 H 110 H Respiratory Rate 18 18 Blood Pressure 98/64 L 98/64 L Pulse Oximetry 97 97 Oxygen Delivery Nasal Cannula Oxygen Flow Rate 2 Fraction of Inspired Oxygen 06/15/24 20:00 06/15/24 20:53 06/15/24 20:53 Temperature Pulse Rate 91 104 H Respiratory Rate 20 Blood Pressure Pulse Oximetry 98 Oxygen Delivery Nasal Cannula Oxygen Flow Rate 2 Fraction of Inspired Oxygen 28 06/15/24 21:00 06/15/24 22:00 06/15/24 22:00 Temperature Pulse Rate 96 112 H 112 H Respiratory Rate 20 Blood Pressure 99/68 L 99/68 L Pulse Oximetry Oxygen Delivery Oxygen Flow Rate Fraction of Inspired Oxygen 06/15/24 22:00 06/15/24 23:57 06/16/24 00:00 Temperature 97.9 F Pulse Rate 112 H 101 H 101 H Respiratory Rate 20 Blood Pressure 116/59 L 116/59 L Pulse Oximetry 100 Oxygen Delivery Oxygen Flow Rate Fraction of Inspired Oxygen 06/16/24 00:00 06/16/24 00:00 06/16/24 01:49 Temperature Pulse Rate 102 H 102 H 105 H Respiratory Rate 18 Blood Pressure Pulse Oximetry 97 Oxygen Delivery Nasal Cannula Oxygen Flow Rate 2 Fraction of Inspired Oxygen 06/16/24 01:57 06/16/24 01:58 06/16/24 02:00 Temperature Pulse Rate 98 203 H 103 H Respiratory Rate 18 20 Blood Pressure 105/69 Pulse Oximetry 100 Oxygen Delivery Oxygen Flow Rate Fraction of Inspired Oxygen 06/16/24 02:00 06/16/24 04:00 06/16/24 04:00 Temperature 97.6 F Pulse Rate 103 H 112 H 95 Respiratory Rate 20 Blood Pressure 105/69 114/67 Pulse Oximetry 100 Oxygen Delivery Oxygen Flow Rate Fraction of Inspired Oxygen 06/16/24 04:00 06/16/24 04:00 06/16/24 05:57 Temperature Pulse Rate 95 112 H Respiratory Rate 18 Blood Pressure 114/67 112/56 L Pulse Oximetry 97 99 Oxygen Delivery Nasal Cannula Oxygen Flow Rate 2 Fraction of Inspired Oxygen 06/16/24 06:00 06/16/24 06:00 06/16/24 06:00 Temperature Pulse Rate 92 115 H 115 H Respiratory Rate Blood Pressure 112/56 L 112/56 L Pulse Oximetry Oxygen Delivery Oxygen Flow Rate Fraction of Inspired Oxygen 06/16/24 07:55 06/16/24 07:55 06/16/24 08:00 Temperature 97.4 F L Pulse Rate 117 H 114 H Respiratory Rate 20 16 Blood Pressure 115/62 Pulse Oximetry 97 100 Oxygen Delivery Nasal Cannula Oxygen Flow Rate 2 Fraction of Inspired Oxygen 28 06/16/24 08:00 06/16/24 08:00 06/16/24 08:10 Temperature Pulse Rate 102 H 123 H Respiratory Rate 24 H Blood Pressure Pulse Oximetry 95 Oxygen Delivery Nasal Cannula Oxygen Flow Rate 2 Fraction of Inspired Oxygen 06/16/24 08:21 06/16/24 10:00 06/16/24 10:00 Temperature 97.6 F Pulse Rate 90 89 Respiratory Rate 12 Blood Pressure 128/62 Pulse Oximetry 88 L 100 Oxygen Delivery Room Air Oxygen Flow Rate Fraction of Inspired Oxygen 06/16/24 10:00 06/16/24 12:00 06/16/24 12:00 Temperature 98.1 F Pulse Rate 89 92 Respiratory Rate 20 Blood Pressure 123/59 L Pulse Oximetry 95 97 Oxygen Delivery Nasal Cannula Oxygen Flow Rate 2 Fraction of Inspired Oxygen 06/16/24 12:00 06/16/24 14:00 06/16/24 14:15 Temperature Pulse Rate 94 99 94 Respiratory Rate 20 Blood Pressure Pulse Oximetry Oxygen Delivery Oxygen Flow Rate Fraction of Inspired Oxygen 06/16/24 14:21 Temperature Pulse Rate 97 Respiratory Rate 20 Blood Pressure Pulse Oximetry Oxygen Delivery Oxygen Flow Rate Fraction of Inspired Oxygen Intake/Output Intake/Output: Intake & Output 06/13/24 06/14/24 06/15/24 06/16/24 23:59 23:59 23:59 23:59 Intake Total 2250 960 1946.1 1270 Output Total 320 11 650 200 Balance 6736 947 0573.1 1070 Meds/Results Medications: Active Medications Generic Name Dose Route Start Last Admin Trade Name Freq PRN Reason Stop Dose Admin Acetaminophen 1,000 mg 06/14/24 11:47 06/15/24 15:35 Acetaminophen 500 Mg Tablet PO 1,000 mg TID PRN Administration pain Albuterol/Ipratropium 3 ml 06/14/24 14:00 06/16/24 14:14 Ipratropium 0.5 Mg/Albuterol Sulfate 2.5 Mg Ampul.Neb 3 Ml INHALATION 3 ml Q6HRT MELISSA Administration Apixaban 5 mg 06/14/24 11:00 06/14/24 11:55 Apixaban 5 Mg Tablet PO Not Given Q12HR MELISSA Atorvastatin Calcium 40 mg 06/14/24 11:00 06/16/24 09:09 Atorvastatin 40 Mg Tablet PO 40 mg DAILY MELISSA Administration Celecoxib 100 mg 06/14/24 11:00 06/16/24 11:40 Celecoxib 100 Mg Capsule PO Not Given Q12HR MELISSA Cyanocobalamin 500 mcg 06/14/24 11:00 06/16/24 09:10 Cyanocobalamin 500 Mcg Tablet PO 500 mcg QAM MELISSA Administration Cyanocobalamin 2,000 mcg 06/15/24 09:00 06/16/24 09:09 Cyanocobalamin 1,000 Mcg Tablet PO 2,000 mcg QAM MELISSA Administration Diltiazem HCl 120 mg 06/17/24 09:00 Diltiazem Hcl Cd 120 Mg Cap.24hr PO QAM MELISSA Piperacillin/Tazobactam/Dextrose 3.375 gm in 50 mls @ 100 mls/hr 06/13/24 06:00 06/16/24 15:23 Zosyn 3.375 Gm/Ns 50 Ml IVPB Infused Q6HR MELISSA Infusion Lactated Ringer's 1,000 mls @ 50 mls/hr 06/14/24 11:50 06/16/24 09:07 Lr - Lactated Ringers Iv IV CONT 50 mls/hr .Q20H MELISSA Administration Levothyroxine Sodium 25 mcg 06/14/24 06:30 06/16/24 06:48 Levothyroxine Sodium 25 Mcg Tablet PO 25 mcg DAILY@0630 MELISSA Administration Lidocaine 1 patch 06/15/24 09:00 06/16/24 09:08 Lidocaine 5% Patch TOPICAL 1 patch DAILY MELISSA Administration Metoprolol Succinate 200 mg 06/14/24 09:00 06/15/24 08:56 Metoprolol Succinate Ext Rel 100 Mg Tabcr PO 200 mg DAILY MELISSA Administration Ondansetron HCl 4 mg 06/14/24 10:55 06/14/24 14:28 Ondansetron Hcl Odt 4 Mg Tablet BY MOUTH 4 mg BID PRN Administration Nausea And Vomiting Pantoprazole Sodium 40 mg 06/14/24 10:55 06/16/24 09:10 Pantoprazole 40 Mg Tablet PO 40 mg QAM MELISSA Administration Tamsulosin HCl 0.4 mg 06/14/24 09:00 06/16/24 09:09 Tamsulosin Hcl 0.4 Mg Capsule PO 0.4 mg DAILY MELISSA Administration Radiology Results: ITS Impressions Head/Neck CTA 06/12/24 22:24 IMPRESSION: 1. Normal CTA head and neck. Percent stenosis per NASCET criteria is 0%. 2. Dominant left vertebral artery. Abdomen/Pelvis CT 06/12/24 22:45 IMPRESSION: 1. Cholecystitis with cholecystostomy tube outside the gallbladder. 2. Filling defect in the urinary bladder suggestive of a clot. Clinical correlation advised. 3. Increased compression of T12 suggestive of acute fracture. Chronic fracture in L2. Chest X-Ray 06/13/24 06:50 Impression: Small pleural effusions with probable mild bibasilar pulmonary edema/atelectasis. Labs Labs: Laboratory Results - last 24 hr 06/16/24 04:14 WBC 5.8 RBC 3.12 L Hgb 9.2 L Hct 31.6 L MCV 101.3 H MCH 29.5 MCHC 29.1 L RDW 15.3 H Plt Count 226 MPV 10.4 Sodium 141 Potassium 3.5 Chloride 106 Carbon Dioxide 28 Anion Gap 7 BUN 11 Creatinine 0.49 L Estim Creat Clear Calc 68 Estimated GFR > 60 Glucose 99 Calcium 8.4 Iron 43 TIBC 155 L % Saturation 28 Ferritin 557.00 H Vitamin B12 > 1000.0 H Folate 7.4 Quality VTE Prophylaxis VTE prophylaxis: pharmacologic ordered
[2024-06-16] MEDS: ACETAMINOPHEN 500 MG TABLET 1000 MG PO (16:45)
[2024-06-16] MEDS: CELECOXIB 100 MG CAPSULE PO (21:13)
[2024-06-17] VITALS (14 sets, daily range): BP systolic 104–143; BP diastolic 43–75; PULSE 87–106; RESP 15–20; TEMP 36.3–37.1; O2SAT 91–100; BMI 30.8
[2024-06-17] MEDS: PIPERACILLN/TAZ 3.375GM/NS50ML 3.375 GM/50 ML BAG IVPB ×5 (02:30→23:23)
[2024-06-17 04:36] LABS: Basophils Percent Auto 0.4 % (0.2-1.2); Eosinophils Absolute Auto 0.2 K/mm3 (0-0.3); Eosinophils Percent Auto 4.3 % (0-4.4); Hematocrit 27.4 % (37.0-47.0); Immature Granulocyte Absolute 0.02 K/mm3 (0.00-0.031); Immature Granulocyte Percent A 0.4 % (0-0.5); Lymphocytes Absolute Auto 1.26 K/mm3 (0.9-3.2); Lymphocytes Percent Auto 23.5 % (18.3-44.2); Mean Corpuscular HGB Conc 29.2 g/dl (32-36); Mean Corpuscular Hemoglobin 29.1 pg (26-34); Mean Corpuscular Volume 99.6 fl (80-100); Mean Platelet Volume 9.9 fl (7.4-10.4); Monocytes Absolute Auto 0.6 K/mm3 (0.1-0.6); Monocytes Percent Auto 11.8 % (2.6-8.5); Neutrophils Absolute Auto 3.2 K/mm3 (1.3-6.7); Neutrophils Percent Auto 59.6 % (45.5-73.1); Platelet Count Result 202 k/mm3 (150-375); Red Blood Count 2.75 M/mm3 (4.2-5.4); Red Cell Distribution Width 15.2 % (11.5-14.5); White Blood Count 5.4 K/mm3 (4.5-10.0)
[2024-06-17 04:55] LABS: Hypochromasia 1+; Ovalocytes 1+; Platelet Estimate Adequate (Adequate); Schistocytes None Seen
[2024-06-17 05:01] LABS: Alanine Aminotransferase 10 U/L (6-35); Albumin Level 2.3 g/dL (3.5-5.1); Alkaline Phosphatase 82 U/L (38-126); Anion Gap 4 mmol/L (4-12); Aspartate Amino Transferase 17 U/L (14-36); Band Neutrophils Percent 0 % (0-6); Bilirubin,Total 0.5 mg/dL (0.2-1.3); Blood Urea Nitrogen 7 mg/dL (7-17); Calcium 7.9 mg/dL (8.4-10.2); Carbon Dioxide 33 mmol/L (22-30); Chloride 103 mmol/L (98-107); Estimated CRCL calculation 68 ml/min; Estimated Glomerular Filt Rate > 60; Glucose 90 mg/dL (65-110); Magnesium 1.3 mg/dL (1.6-2.3); Potassium 2.6 mmol/L (3.4-5.0); Sodium 140 mmol/L (137-145)
[2024-06-17] MEDS: POTASSIUM CHLORIDE INJ 40 MEQ in SODIUM CHLORIDE 0.9% IV 500 ML 130 MEQ IVPB ×2 (06:15→11:22)
[2024-06-17] MEDS: LEVOTHYROXINE SODIUM 25 MCG TABLET PO (06:51)
[2024-06-17] MEDS: IPRATROPIUM 0.5 MG/ALBUTEROL SULFATE 2.5 MG AMPUL.NEB 3 ML INHALATION (07:23)
[2024-06-17] MEDS: ALBUMIN HUMAN 25% 25 GM/100 ML 100 ML IVPB (08:40)
[2024-06-17] MEDS: LIDOCAINE 5% PATCH 1 PATCH TOPICAL (08:41)
[2024-06-17] MEDS: dilTIAZem HCL CD 120 MG CAP.24HR PO (08:42)
[2024-06-17] MEDS: LACTATED RINGERS 1,000 ML 50 ML IV CONT (08:42)
[2024-06-17] MEDS: MAGNESIUM SULFATE 3GM/D5W100ML 3 GM/100 ML BAG IVPB (08:45)
--- NOTE | 2024-06-17 10:15 | SUR.OPER ---
RN to CT to assist with Moderate Sedation for CT drain placement on Pt. This RN had pt. hooked up to vitals cart and was monitoring q5 minute vitals. Dr. Howard never asked for sedation or pain medication to be administered. at approx. 1015 RN was dismissed from case due to pt. not needing sedation medication. VS 0945 131/69 108 HR 100% SPO2 on 2L NC, 20 Respirations Capnography 35 0950 125/59 BP 106 HR 99% SPO2 1.5 L NC, 17 Respirations, Capnography 35 0955 112/48 BP 105 HR 99% SPO2 1.5 L NC, 18 Respirations, Capnography 36 1000 124/63 BP, 107 HR, 99% SPO2 1.5 L NC, 19 Respirations, Capnography 36 1005 115/51 BP 105 HR, 97% SPO2 1.5 L NC, 19 Respirations, Capnography 38 1010 111/48 BP 105 HR, 98% SPO2 1.5 L NC, 17 Respirations, Capnography 40 1015 122/55 BP 105 HR, 100% SPO2 1.5 L NC, 19 Respirations, Capnography 37
[2024-06-17] MEDS: CYANOCOBALAMIN 1,000 MCG TABLET 2000 MCG PO (11:19)
[2024-06-17] MEDS: CELECOXIB 100 MG CAPSULE PO ×2 (11:20→20:30)
[2024-06-17] MEDS: PANTOPRAZOLE 40 MG TABLET PO (11:20)
[2024-06-17] MEDS: TAMSULOSIN HCL 0.4 MG CAPSULE PO (11:20)
[2024-06-17] MEDS: CYANOCOBALAMIN 500 MCG TABLET PO (11:20)
[2024-06-17] MEDS: ATORVASTATIN 40 MG TABLET PO (11:30)
--- NOTE | 2024-06-17 14:47 | P.PNIM_ITS ---
Progress Note: A&P Assessment and Plan (1) Essential hypertension: Code(s): I10 - Essential (primary) hypertension Status: Acute (2) Coronary artery disease involving [place] coronary artery of [place] heart: Code(s): I25.10 - Atherosclerotic heart disease of [place] coronary artery without angina pectoris Status: Acute (3) Atrial fibrillation: Qualifiers: Atrial fibrillation type: unspecified Qualified Code(s): I48.91 - Unspecified atrial fibrillation Code(s): I48.91 - Unspecified atrial fibrillation Status: Acute (4) Mixed hyperlipidemia: Code(s): E78.2 - Mixed hyperlipidemia Status: Acute (5) Prediabetes: Code(s): R73.03 - Prediabetes Status: Acute (6) Hypothyroidism: Code(s): E03.9 - Hypothyroidism, unspecified Status: Acute (7) Gastroesophageal reflux disease: Code(s): K21.9 - Gastro-esophageal reflux disease without esophagitis Status: Acute (8) Acute cholecystitis: Code(s): K81.0 - Acute cholecystitis Status: Acute (9) Chronic low back pain with sciatica: Code(s): M54.40 - Lumbago with sciatica, unspecified side; G89.29 - Other chronic pain Status: Acute (10) Altered mental status: Code(s): R41.82 - Altered mental status, unspecified Status: Acute Plan Malfunctioning Cholecystotomy tube replaced surgery on board Recent Acute cholecystitis on Abx and Cholecystostomy continue above care Hypokalemia and Hypomagnesemia K 2.6, Mag 1.3 replaced and monitor Afib Converted to NSR on cardizem infusion Continue Metoprolol 200mg per cardiology on Eliquis HTN Titrate home meds with clinical course CAD continue home meds DVT prophylaxis on Eliquis Subjective Date/time seen: 06/17/24 14:47 Interval history: Comfortable at bedside Seen after Cholecystostomy tube replaced Review of Systems Review of Systems: tachycardia All systems reviewed & are unremarkable except as noted in HPI and below Exam Narrative: drain in place Const: General: comfortable Resp: Effort & Inspection: normal respiratory effort Auscultation: clear to auscultation bilaterally Cardio: Rate: regular rate Rhythm: regular rhythm GI: Auscultation: normal bowel sounds Skin: General skin exam: normal color Neuro: Speech: normal speech Motor exam (neuro): Motor abnormalites present Other: pt is oriented to self and intermittently to place. Psych: Affect: normal affect Objective Data Vital Signs Vital Signs: Vital Signs - 24 hr 06/16/24 16:00 06/16/24 16:00 06/16/24 16:00 Temperature 98.2 F Pulse Rate 98 98 Respiratory Rate 24 H Blood Pressure 129/56 L Pulse Oximetry 97 94 Oxygen Delivery Nasal Cannula Oxygen Flow Rate 2 Fraction of Inspired Oxygen 06/16/24 18:00 06/16/24 20:00 06/16/24 20:00 Temperature 97.6 F Pulse Rate 102 H 91 96 Respiratory Rate 17 18 Blood Pressure 122/50 L Pulse Oximetry 100 100 Oxygen Delivery Nasal Cannula Oxygen Flow Rate 2 Fraction of Inspired Oxygen 28 06/16/24 20:00 06/16/24 20:28 06/16/24 20:36 Temperature Pulse Rate 87 88 Respiratory Rate 20 Blood Pressure Pulse Oximetry 100 Oxygen Delivery Nasal Cannula Oxygen Flow Rate 2 Fraction of Inspired Oxygen 28 06/16/24 20:37 06/16/24 22:00 06/17/24 00:00 Temperature 98.0 F Pulse Rate 106 H 85 96 Respiratory Rate 20 18 Blood Pressure 110/43 L Pulse Oximetry 100 Oxygen Delivery Oxygen Flow Rate Fraction of Inspired Oxygen 06/17/24 00:00 06/17/24 00:00 06/17/24 02:00 Temperature Pulse Rate 96 95 89 Respiratory Rate 18 Blood Pressure Pulse Oximetry 100 Oxygen Delivery Nasal Cannula Oxygen Flow Rate 2 Fraction of Inspired Oxygen 28 06/17/24 03:50 06/17/24 04:00 06/17/24 04:00 Temperature 98.7 F Pulse Rate 90 90 91 Respiratory Rate 18 18 Blood Pressure 105/44 L Pulse Oximetry 91 91 Oxygen Delivery Nasal Cannula Oxygen Flow Rate 2 Fraction of Inspired Oxygen 06/17/24 05:57 06/17/24 07:26 06/17/24 07:26 Temperature Pulse Rate 92 98 Respiratory Rate 20 Blood Pressure Pulse Oximetry 97 Oxygen Delivery Nasal Cannula Oxygen Flow Rate 1 Fraction of Inspired Oxygen 06/17/24 07:36 06/17/24 08:00 06/17/24 08:00 Temperature 98.6 F Pulse Rate 100 100 Respiratory Rate 15 20 Blood Pressure 104/75 Pulse Oximetry 100 100 Oxygen Delivery Nasal Cannula Oxygen Flow Rate 1 Fraction of Inspired Oxygen 06/17/24 12:00 Temperature 98.3 F Pulse Rate 100 Respiratory Rate 20 Blood Pressure 139/58 L Pulse Oximetry 98 Oxygen Delivery Oxygen Flow Rate Fraction of Inspired Oxygen Intake/Output Intake/Output: Intake & Output 06/14/24 06/15/24 06/16/24 06/17/24 23:59 23:59 23:59 23:59 Intake Total 960 1946.1 1840 1100 Output Total 11 650 1700 Balance 949 1296.1 140 1100 Meds/Results Medications: Active Medications Generic Name Dose Route Start Last Admin Trade Name Freq PRN Reason Stop Dose Admin Acetaminophen 1,000 mg 06/14/24 11:47 06/16/24 16:45 Acetaminophen 500 Mg Tablet PO 1,000 mg TID PRN Administration pain Albuterol/Ipratropium 3 ml 06/17/24 14:37 Ipratropium 0.5 Mg/Albuterol Sulfate 2.5 Mg Ampul.Neb 3 Ml INHALATION Q6HRT PRN shortness of breath Apixaban 5 mg 06/14/24 11:00 06/14/24 11:55 Apixaban 5 Mg Tablet PO Not Given Q12HR MELISSA Atorvastatin Calcium 40 mg 06/14/24 11:00 06/17/24 11:30 Atorvastatin 40 Mg Tablet PO 40 mg DAILY MELISSA Administration Celecoxib 100 mg 06/14/24 11:00 06/17/24 11:20 Celecoxib 100 Mg Capsule PO 100 mg Q12HR MELISSA Administration Cyanocobalamin 500 mcg 06/14/24 11:00 06/17/24 11:20 Cyanocobalamin 500 Mcg Tablet PO 500 mcg QAM MELISSA Administration Cyanocobalamin 2,000 mcg 06/15/24 09:00 06/17/24 11:19 Cyanocobalamin 1,000 Mcg Tablet PO 2,000 mcg QAM MELISSA Administration Diltiazem HCl 120 mg 06/17/24 09:00 06/17/24 08:42 Diltiazem Hcl Cd 120 Mg Cap.24hr PO 120 mg QAM MELISSA Administration Piperacillin/Tazobactam/Dextrose 3.375 gm in 50 mls @ 100 mls/hr 06/13/24 06:00 06/17/24 13:02 Zosyn 3.375 Gm/Ns 50 Ml IVPB 100 mls/hr Q6HR MELISSA Administration Levothyroxine Sodium 25 mcg 06/14/24 06:30 06/17/24 06:51 Levothyroxine Sodium 25 Mcg Tablet PO 25 mcg DAILY@0630 MELISSA Administration Lidocaine 1 patch 06/15/24 09:00 06/17/24 08:41 Lidocaine 5% Patch TOPICAL 1 patch DAILY MELISSA Administration Metoprolol Succinate 200 mg 06/14/24 09:00 06/15/24 08:56 Metoprolol Succinate Ext Rel 100 Mg Tabcr PO 200 mg DAILY MELISSA Administration Ondansetron HCl 4 mg 06/14/24 10:55 06/14/24 14:28 Ondansetron Hcl Odt 4 Mg Tablet BY MOUTH 4 mg BID PRN Administration Nausea And Vomiting Pantoprazole Sodium 40 mg 06/14/24 10:55 06/17/24 11:20 Pantoprazole 40 Mg Tablet PO 40 mg QAM MELISSA Administration Tamsulosin HCl 0.4 mg 06/14/24 09:00 06/17/24 11:20 Tamsulosin Hcl 0.4 Mg Capsule PO 0.4 mg DAILY MELISSA Administration Radiology Results: ITS Impressions Head/Neck CTA 06/12/24 22:24 IMPRESSION: 1. Normal CTA head and neck. Percent stenosis per NASCET criteria is 0%. 2. Dominant left vertebral artery. Abdomen/Pelvis CT 06/12/24 22:45 IMPRESSION: 1. Cholecystitis with cholecystostomy tube outside the gallbladder. 2. Filling defect in the urinary bladder suggestive of a clot. Clinical correlation advised. 3. Increased compression of T12 suggestive of acute fracture. Chronic fracture in L2. Chest X-Ray 06/13/24 06:50 Impression: Small pleural effusions with probable mild bibasilar pulmonary edema/atelectasis. Abdomen Ultrasound 06/16/24 16:39 IMPRESSION: 1. Poor visualization of what is likely the gallbladder and surrounding bowel and the planned ultrasound-guided percutaneous close ostomy tube placement was deferred with plan to attempt to placement in the morning with CT guidance and with conscious sedation. Catheter Placement CT 06/17/24 12:53 IMPRESSION: 1. Successful CT-guided percutaneous cholecystostomy tube placement. 2. 20 mL fluid was sent for aerobic and anaerobic cultures. 3. The catheter will be managed by Dr. Chester. A catheter cholangiogram may be performed not less than 48 hours after tube placement if clinically indicated to assess cystic duct patency. If cholecystectomy is not eventually performed and the infectious episode has resolved, the tube may be removed over a guidewire, preferably not less than 3 weeks after placement to allow time for a mature catheter tract to form to prevent bile leakage and peritonitis. Labs Labs: Laboratory Results - last 24 hr 06/17/24 04:10 WBC 5.4 RBC 2.75 L Hgb 8.0 L Hct 27.4 L MCV 99.6 MCH 29.1 MCHC 29.2 L RDW 15.2 H Plt Count 202 MPV 9.9 Immature Gran % (Auto) 0.4 Neut % (Auto) 59.6 Lymph % (Auto) 23.5 [place] % (Auto) 11.8 H Eos % (Auto) 4.3 Baso % (Auto) 0.4 Lymph # (Auto) 1.26 [place] # (Auto) 0.6 Eos # (Auto) 0.2 Baso # (Auto) 0.0 Abs Immat Gran (auto) 0.02 Absolute Neuts (auto) 3.2 Absolute Nucleated RBC 0.000 Band Neutrophils % 0 Nucleated RBC % 0.0 Platelet Estimate Adequate Hypochromasia 1+ Ovalocytes 1+ Schistocytes None seen Sodium 140 Potassium 2.6 L* Chloride 103 Carbon Dioxide 33 H Anion Gap 4 BUN 7 Creatinine 0.49 L Estim Creat Clear Calc 68 Estimated GFR > 60 Glucose 90 Calcium 7.9 L Magnesium 1.3 L Total Bilirubin 0.5 AST 17 ALT 10 Alkaline Phosphatase 82 Total Protein 5.0 L Albumin 2.3 L Quality VTE Prophylaxis VTE prophylaxis: pharmacologic ordered
--- NOTE | 2024-06-17 14:47 | PCPTNOTE ---
Attempted to see pt for PT evaluation, pt requested we come back tomorrow. Has not eaten in 2 days and is feeling very weak. Will continue to follow.
--- NOTE | 2024-06-17 15:22 | P.PNGS_ITS ---
Progress Note: A&P Assessment and Plan (1) Cholecystitis: Code(s): K81.9 - Cholecystitis, unspecified Status: Acute Assessment and Plan: Successful placement of a new cholecystostomy tube in Radiology today with CT- guidance. Cultures were sent during the procedure. Okay to advance her diet as tolerated 4 hours after the procedure per the Radiologist's recommendations. Continue IV antibiotics for now. Potassium and magnesium low this morning and have been replaced. Repeat potassium ordered for this afternoon and being managed by the Hospitalist. PT/OT has been ordered to evaluate patient for placement. She was planning to go back home with home health last weekend from the SNF, but ended up admitted to the Hospital. Hopefully, she can discharge in the next 1-2 days if she is able to tolerate a diet and is medically stable. Plan I have discussed the patient's case and plan of care with Dr. Chester. Subjective Subjective Date/Time Seen: 06/17/24 15:22 Patient reports: no new complaints and afebrile Interval history: Patient seen after cholecystostomy tube placement. She denies abdominal or back pain. No nausea or vomiting. She has been NPO since the procedure with recommendations from the radiologist to be NPO for 4 hours. No other complaints at this time. Exam Const: General: comfortable and no acute distress Orientation/consciousness: patient oriented x3 GI: Inspection: non-distended GI Palp: Yes Soft to palpation, Yes Tenderness to palpation present (GI) (RUQ ), No Guarding due to palpation present (GI) and No Rebound tenderness present Auscultation: normal bowel sounds Other: New RUQ cholecystostomy tube with scant dark maroon/[place] drainage in bag. Gauze dressing just above the new drain where previous cholecystomy tube was removed, dry and intact. Objective Data Vital Signs Vital Signs: Vital Signs - 24 hr 06/16/24 16:00 06/16/24 16:00 06/16/24 16:00 Temperature 98.2 F Pulse Rate 98 98 Respiratory Rate 24 H Blood Pressure 129/56 L Pulse Oximetry 97 94 Oxygen Delivery Nasal Cannula Oxygen Flow Rate 2 Fraction of Inspired Oxygen 06/16/24 18:00 06/16/24 20:00 06/16/24 20:00 Temperature 97.6 F Pulse Rate 102 H 91 96 Respiratory Rate 17 18 Blood Pressure 122/50 L Pulse Oximetry 100 100 Oxygen Delivery Nasal Cannula Oxygen Flow Rate 2 Fraction of Inspired Oxygen 28 06/16/24 20:00 06/16/24 20:28 06/16/24 20:36 Temperature Pulse Rate 87 88 Respiratory Rate 20 Blood Pressure Pulse Oximetry 100 Oxygen Delivery Nasal Cannula Oxygen Flow Rate 2 Fraction of Inspired Oxygen 28 06/16/24 20:37 06/16/24 22:00 06/17/24 00:00 Temperature 98.0 F Pulse Rate 106 H 85 96 Respiratory Rate 20 18 Blood Pressure 110/43 L Pulse Oximetry 100 Oxygen Delivery Oxygen Flow Rate Fraction of Inspired Oxygen 06/17/24 00:00 06/17/24 00:00 06/17/24 02:00 Temperature Pulse Rate 96 95 89 Respiratory Rate 18 Blood Pressure Pulse Oximetry 100 Oxygen Delivery Nasal Cannula Oxygen Flow Rate 2 Fraction of Inspired Oxygen 06/17/24 03:50 06/17/24 04:00 06/17/24 04:00 Temperature 98.7 F Pulse Rate 90 90 91 Respiratory Rate 18 18 Blood Pressure 105/44 L Pulse Oximetry 91 91 Oxygen Delivery Nasal Cannula Oxygen Flow Rate 2 Fraction of Inspired Oxygen 06/17/24 05:57 06/17/24 07:26 06/17/24 07:26 Temperature Pulse Rate 92 98 Respiratory Rate 20 Blood Pressure Pulse Oximetry 97 Oxygen Delivery Nasal Cannula Oxygen Flow Rate 1 Fraction of Inspired Oxygen 06/17/24 07:36 06/17/24 08:00 06/17/24 08:00 Temperature 98.6 F Pulse Rate 100 100 Respiratory Rate 15 20 Blood Pressure 104/75 Pulse Oximetry 100 100 Oxygen Delivery Nasal Cannula Oxygen Flow Rate 1 Fraction of Inspired Oxygen 06/17/24 08:00 06/17/24 12:00 06/17/24 12:00 Temperature 98.3 F Pulse Rate 106 H 100 99 Respiratory Rate 20 Blood Pressure 139/58 L Pulse Oximetry 98 Oxygen Delivery Oxygen Flow Rate Fraction of Inspired Oxygen 06/17/24 14:00 Temperature Pulse Rate 96 Respiratory Rate Blood Pressure Pulse Oximetry Oxygen Delivery Oxygen Flow Rate Fraction of Inspired Oxygen Intake/Output Intake/Output: Intake & Output 06/14/24 06/15/24 06/16/24 06/17/24 23:59 23:59 23:59 23:59 Intake Total 960 1946.1 1840 1100 Output Total 11 650 1700 Balance 949 1296.1 140 1100 Meds/Results Medications: Active Medications Generic Name Dose Route Start Last Admin Trade Name Freq PRN Reason Stop Dose Admin Acetaminophen 1,000 mg 06/14/24 11:47 06/16/24 16:45 Acetaminophen 500 Mg Tablet PO 1,000 mg TID PRN Administration pain Albuterol/Ipratropium 3 ml 06/17/24 14:37 Ipratropium 0.5 Mg/Albuterol Sulfate 2.5 Mg Ampul.Neb 3 Ml INHALATION Q6HRT PRN shortness of breath Apixaban 5 mg 06/14/24 11:00 06/14/24 11:55 Apixaban 5 Mg Tablet PO Not Given Q12HR MELISSA Atorvastatin Calcium 40 mg 06/14/24 11:00 06/17/24 11:30 Atorvastatin 40 Mg Tablet PO 40 mg DAILY MELISSA Administration Celecoxib 100 mg 06/14/24 11:00 06/17/24 11:20 Celecoxib 100 Mg Capsule PO 100 mg Q12HR MELISSA Administration Cyanocobalamin 500 mcg 06/14/24 11:00 06/17/24 11:20 Cyanocobalamin 500 Mcg Tablet PO 500 mcg QAM MELISSA Administration Cyanocobalamin 2,000 mcg 06/15/24 09:00 06/17/24 11:19 Cyanocobalamin 1,000 Mcg Tablet PO 2,000 mcg QAM MELISSA Administration Diltiazem HCl 120 mg 06/17/24 09:00 06/17/24 08:42 Diltiazem Hcl Cd 120 Mg Cap.24hr PO 120 mg QAM MELISSA Administration Piperacillin/Tazobactam/Dextrose 3.375 gm in 50 mls @ 100 mls/hr 06/13/24 06:00 06/17/24 13:02 Zosyn 3.375 Gm/Ns 50 Ml IVPB 100 mls/hr Q6HR MELISSA Administration Magnesium Sulfate 4 gm in 100 mls @ 25 mls/hr 06/17/24 14:54 06/17/24 15:13 Magnesium Sulf 4 Gm/[id number] IVPB 06/17/24 18:53 Not Given ONCE ONE Levothyroxine Sodium 25 mcg 06/14/24 06:30 06/17/24 06:51 Levothyroxine Sodium 25 Mcg Tablet PO 25 mcg DAILY@0630 MELISSA Administration Lidocaine 1 patch 06/15/24 09:00 06/17/24 08:41 Lidocaine 5% Patch TOPICAL 1 patch DAILY MELISSA Administration Metoprolol Succinate 200 mg 06/14/24 09:00 06/15/24 08:56 Metoprolol Succinate Ext Rel 100 Mg Tabcr PO 200 mg DAILY MELISSA Administration Ondansetron HCl 4 mg 06/14/24 10:55 06/14/24 14:28 Ondansetron Hcl Odt 4 Mg Tablet BY MOUTH 4 mg BID PRN Administration Nausea And Vomiting Pantoprazole Sodium 40 mg 06/14/24 10:55 06/17/24 11:20 Pantoprazole 40 Mg Tablet PO 40 mg QAM MELISSA Administration Tamsulosin HCl 0.4 mg 06/14/24 09:00 06/17/24 11:20 Tamsulosin Hcl 0.4 Mg Capsule PO 0.4 mg DAILY MELISSA Administration Radiology Results: ITS Impressions Head/Neck CTA 06/12/24 22:24 IMPRESSION: 1. Normal CTA head and neck. Percent stenosis per NASCET criteria is 0%. 2. Dominant left vertebral artery. Abdomen/Pelvis CT 06/12/24 22:45 IMPRESSION: 1. Cholecystitis with cholecystostomy tube outside the gallbladder. 2. Filling defect in the urinary bladder suggestive of a clot. Clinical c orrelation advised. 3. Increased compression of T12 suggestive of acute fracture. Chronic fracture in L2. Chest X-Ray 06/13/24 06:50 Impression: Small pleural effusions with probable mild bibasilar pulmonary edema/atelectasis. Abdomen Ultrasound 06/16/24 16:39 IMPRESSION: 1. Poor visualization of what is likely the gallbladder and surrounding bowel and the planned ultrasound-guided percutaneous close ostomy tube placement was deferred with plan to attempt to placement in the morning with CT guidance and with conscious sedation. Catheter Placement CT 06/17/24 12:53 IMPRESSION: 1. Successful CT-guided percutaneous cholecystostomy tube placement. 2. 20 mL fluid was sent for aerobic and anaerobic cultures. 3. The catheter will be managed by Dr. Chester. A catheter cholangiogram may be performed not less than 48 hours after tube placement if clinically indicated to assess cystic duct patency. If cholecystectomy is not eventually performed and the infectious episode has resolved, the tube may be removed over a guidewire, preferably not less than 3 weeks after placement to allow time for a mature catheter tract to form to prevent bile leakage and peritonitis. Labs Labs: Laboratory Results - last 24 hr 06/17/24 04:10 WBC 5.4 RBC 2.75 L Hgb 8.0 L Hct 27.4 L MCV 99.6 MCH 29.1 MCHC 29.2 L RDW 15.2 H Plt Count 202 MPV 9.9 Immature Gran % (Auto) 0.4 Neut % (Auto) 59.6 Lymph % (Auto) 23.5 [place] % (Auto) 11.8 H Eos % (Auto) 4.3 Baso % (Auto) 0.4 Lymph # (Auto) 1.26 [place] # (Auto) 0.6 Eos # (Auto) 0.2 Baso # (Auto) 0.0 Abs Immat Gran (auto) 0.02 Absolute Neuts (auto) 3.2 Absolute Nucleated RBC 0.000 Band Neutrophils % 0 Nucleated RBC % 0.0 Platelet Estimate Adequate Hypochromasia 1+ Ovalocytes 1+ Schistocytes None seen Sodium 140 Potassium 2.6 L* Chloride 103 Carbon Dioxide 33 H Anion Gap 4 BUN 7 Creatinine 0.49 L Estim Creat Clear Calc 68 Estimated GFR > 60 Glucose 90 Calcium 7.9 L Magnesium 1.3 L Total Bilirubin 0.5 AST 17 ALT 10 Alkaline Phosphatase 82 Total Protein 5.0 L Albumin 2.3 L
[2024-06-17 18:46] LABS: Potassium 3.8 mmol/L (3.4-5.0)
--- NOTE | 2024-06-17 20:33 | PC.NURSE ---
This patient, Maude Milton, was transferred to [facility] on 06/17/24 at 2033. Personal belongings sent with patient. Report given to KALLI Stallings. Appropriate documentation sent with patient.
[2024-06-18] VITALS (15 sets, daily range): BP systolic 100–137; BP diastolic 52–76; PULSE 86–162; RESP 13–20; TEMP 36.4–36.8; O2SAT 87–100
[2024-06-18] MEDS: PIPERACILLN/TAZ 3.375GM/NS50ML 3.375 GM/50 ML BAG IVPB ×3 (05:37→17:03)
[2024-06-18] MEDS: LEVOTHYROXINE SODIUM 25 MCG TABLET PO (05:37)
[2024-06-18 06:55] LABS: Basophils Percent Auto 0.2 % (0.2-1.2); Eosinophils Absolute Auto 0.3 K/mm3 (0-0.3); Eosinophils Percent Auto 4.3 % (0-4.4); Hematocrit 27.6 % (37.0-47.0); Hemoglobin 8.1 g/dL (12.0-15.0); Immature Granulocyte Absolute 0.03 K/mm3 (0.00-0.031); Immature Granulocyte Percent A 0.5 % (0-0.5); Lymphocytes Absolute Auto 1.24 K/mm3 (0.9-3.2); Lymphocytes Percent Auto 19.7 % (18.3-44.2); Mean Corpuscular HGB Conc 29.3 g/dl (32-36); Mean Corpuscular Hemoglobin 29.7 pg (26-34); Mean Corpuscular Volume 101.1 fl (80-100); Monocytes Absolute Auto 0.6 K/mm3 (0.1-0.6); Monocytes Percent Auto 8.7 % (2.6-8.5); Neutrophils Absolute Auto 4.2 K/mm3 (1.3-6.7); Neutrophils Percent Auto 66.6 % (45.5-73.1); Platelet Count Result 215 k/mm3 (150-375); Red Blood Count 2.73 M/mm3 (4.2-5.4); Red Cell Distribution Width 15.2 % (11.5-14.5); White Blood Count 6.3 K/mm3 (4.5-10.0)
[2024-06-18 07:13] LABS: Alanine Aminotransferase 8 U/L (6-35); Albumin Level 2.7 g/dL (3.5-5.1); Alkaline Phosphatase 82 U/L (38-126); Anion Gap 5 mmol/L (4-12); Aspartate Amino Transferase 18 U/L (14-36); Bilirubin,Total 0.7 mg/dL (0.2-1.3); Blood Urea Nitrogen 5 mg/dL (7-17); Carbon Dioxide 32 mmol/L (22-30); Chloride 105 mmol/L (98-107); Estimated CRCL calculation 76 ml/min; Estimated Glomerular Filt Rate > 60; Glucose 96 mg/dL (65-110); Magnesium 1.7 mg/dL (1.6-2.3); Phosphorus 2.3 mg/dL (2.5-4.5); Potassium 4.1 mmol/L (3.4-5.0); Sodium 142 mmol/L (137-145)
[2024-06-18 07:30] LABS: Anisocytosis 1+; Platelet Estimate Adequate (Adequate)
[2024-06-18] MEDS: dilTIAZem HCL CD 120 MG CAP.24HR PO (09:13)
[2024-06-18] MEDS: APIXABAN 5 MG TABLET PO ×2 (09:13→20:23)
[2024-06-18] MEDS: CELECOXIB 100 MG CAPSULE PO ×2 (09:13→20:23)
[2024-06-18] MEDS: ATORVASTATIN 40 MG TABLET PO (09:13)
[2024-06-18] MEDS: TAMSULOSIN HCL 0.4 MG CAPSULE PO (09:13)
[2024-06-18] MEDS: LIDOCAINE 5% PATCH 1 PATCH TOPICAL (09:13)
[2024-06-18] MEDS: CYANOCOBALAMIN 1,000 MCG TABLET 2000 MCG PO (09:13)
[2024-06-18] MEDS: CYANOCOBALAMIN 500 MCG TABLET PO (09:13)
[2024-06-18] MEDS: PANTOPRAZOLE 40 MG TABLET PO (09:13)
--- NOTE | 2024-06-18 10:16 | PCNFU ---
Nutrition Follow-Up Complete: Inadequate energy intake related to NPO / clear liquid status as evidenced by diet orders since admission (5 days) - RESOLVED Meet estimated needs - Progressing with goal. Continue same goal Goal: Pt current nutrition is Low fat diet. Nutrition recommendation: Oral nutrition supplement: Ensure Clear BID (240 kcal, 8 g protein) Last recorded weight is 80.2 kg. Bowel Motility: Last BM 06/14/24 Labs Reviewed: Hgb 8.1, Hct 27.6, Alb 2.7, BUn 5, Cre 0.44 Meds Noted: Eliquis, protonix Skin: WNL Additional Notes: Had calvin procedure and diet advanced as recommended. Low fat diet with 50% intakes so far. Ensure Clear BID Monitor diet orders, intake, wt, labs. Follow up in 1 day.
--- NOTE | 2024-06-18 10:48 | PM.PNGS ---
Progress Note: A&P Assessment and Plan (1) Cholecystitis: Code(s): K81.9 - Cholecystitis, unspecified Status: Acute Assessment and Plan: Successful placement of a new cholecystostomy tube in Radiology today with CT-guidance. Cultures pending. She is surgically stable to discharge with the cholecystostomy tube either back to SNF or home with her daughter and home health from our standpoint. She can transition to oral antibiotics. We will have her follow-up with Dr. Chester or Dr. Mckenzie in our office in 2 weeks. Plan I have discussed the patient's case and plan of care with Dr. Chester. Subjective Subjective Date/Time Seen: 06/18/24 10:48 Patient reports: no new complaints, tolerating a regular diet, flatus and afebrile Interval history: Patient doing well with no specific complaints at this time. She is tolerating her breakfast on a low-fat diet. No abdominal or back pain. No nausea. Exam Const: General: comfortable and no acute distress GI: Inspection: non-distended GI Palp: Yes Soft to palpation, Yes Tenderness to palpation present (GI) (Mild tenderness near cholecystostomy tube), No Guarding due to palpation present (GI) and No Rebound tenderness present Auscultation: normal bowel sounds Other: New RUQ cholecystostomy tube with scant dark pink-tinged thick [place] drainage in bag. Gauze dressing just above the new drain where previous cholecystomy tube was removed, dry and intact. Objective Data Vital Signs Vital Signs: Vital Signs - 24 hr 06/17/24 12:00 06/17/24 12:00 06/17/24 12:00 Temperature 98.3 F Pulse Rate 100 99 Respiratory Rate 20 Blood Pressure 139/58 L Pulse Oximetry 98 98 Oxygen Delivery Nasal Cannula Oxygen Flow Rate 1 06/17/24 14:00 06/17/24 16:00 06/17/24 19:57 Temperature 98.3 F 97.4 F L Pulse Rate 96 98 87 Respiratory Rate 20 18 Blood Pressure 133/53 L 140/72 Pulse Oximetry 100 100 Oxygen Delivery Oxygen Flow Rate 06/17/24 20:10 06/17/24 21:50 06/18/24 02:45 Temperature 98.2 F Pulse Rate 87 104 H Respiratory Rate 18 19 Blood Pressure 143/66 H Pulse Oximetry 100 93 96 Oxygen Delivery Room Air Nasal Cannula Oxygen Flow Rate 2 06/18/24 06:00 06/18/24 08:00 06/18/24 08:15 Temperature 97.5 F L Pulse Rate 97 Respiratory Rate 13 Blood Pressure 137/63 Pulse Oximetry 100 91 88 L Oxygen Delivery Nasal Cannula Room Air Oxygen Flow Rate 1 06/18/24 08:20 06/18/24 09:15 Temperature Pulse Rate Respiratory Rate Blood Pressure Pulse Oximetry 91 Oxygen Delivery Nasal Cannula Nasal Cannula Oxygen Flow Rate 1 2 Intake/Output Intake/Output: Intake & Output 06/15/24 06/16/24 06/17/24 06/18/24 23:59 23:59 23:59 23:59 Intake Total 1946.1 1840 1990 350 Output Total 650 1700 915 300 Balance 1296.1 140 1075 50 Meds/Results Medications: Active Medications Generic Name Dose Route Start Last Admin Trade Name Freq PRN Reason Stop Dose Admin Acetaminophen 1,000 mg 06/14/24 11:47 06/16/24 16:45 Acetaminophen 500 Mg Tablet PO 1,000 mg TID PRN Administration pain Albuterol/Ipratropium 3 ml 06/17/24 14:37 Ipratropium 0.5 Mg/Albuterol Sulfate 2.5 Mg Ampul.Neb 3 Ml INHALATION Q6HRT PRN shortness of breath Apixaban 5 mg 06/14/24 11:00 06/18/24 09:13 Apixaban 5 Mg Tablet PO 5 mg Q12HR MELISSA Administration Atorvastatin Calcium 40 mg 06/14/24 11:00 06/18/24 09:13 Atorvastatin 40 Mg Tablet PO 40 mg DAILY MELISSA Administration Celecoxib 100 mg 06/14/24 11:00 06/18/24 09:13 Celecoxib 100 Mg Capsule PO 100 mg Q12HR MELISSA Administration Cyanocobalamin 500 mcg 06/14/24 11:00 06/18/24 09:13 Cyanocobalamin 500 Mcg Tablet PO 500 mcg QAM MELISSA Administration Cyanocobalamin 2,000 mcg 06/15/24 09:00 06/18/24 09:13 Cyanocobalamin 1,000 Mcg Tablet PO 2,000 mcg QAM MELISSA Administration Diltiazem HCl 120 mg 06/17/24 09:00 06/18/24 09:13 Diltiazem Hcl Cd 120 Mg Cap.24hr PO 120 mg QAM MELISSA Administration Piperacillin/Tazobactam/Dextrose 3.375 gm in 50 mls @ 100 mls/hr 06/13/24 06:00 06/18/24 05:37 Zosyn 3.375 Gm/Ns 50 Ml IVPB 100 mls/hr Q6HR MELISSA Administration Levothyroxine Sodium 25 mcg 06/14/24 06:30 06/18/24 05:37 Levothyroxine Sodium 25 Mcg Tablet PO 25 mcg DAILY@0630 MELISSA Administration Lidocaine 1 patch 06/15/24 09:00 06/18/24 09:13 Lidocaine 5% Patch TOPICAL 1 patch DAILY MELISSA Administration Metoprolol Succinate 200 mg 06/14/24 09:00 06/15/24 08:56 Metoprolol Succinate Ext Rel 100 Mg Tabcr PO 200 mg DAILY MELISSA Administration Ondansetron HCl 4 mg 06/14/24 10:55 06/14/24 14:28 Ondansetron Hcl Odt 4 Mg Tablet BY MOUTH 4 mg BID PRN Administration Nausea And Vomiting Pantoprazole Sodium 40 mg 06/14/24 10:55 06/18/24 09:13 Pantoprazole 40 Mg Tablet PO 40 mg QAM MELISSA Administration Tamsulosin HCl 0.4 mg 06/14/24 09:00 06/18/24 09:13 Tamsulosin Hcl 0.4 Mg Capsule PO 0.4 mg DAILY MELISSA Administration Radiology Results: ITS Impressions Head/Neck CTA 06/12/24 22:24 IMPRESSION: 1. Normal CTA head and neck. Percent stenosis per NASCET criteria is 0%. 2. Dominant left vertebral artery. Abdomen/Pelvis CT 06/12/24 22:45 IMPRESSION: 1. Cholecystitis with cholecystostomy tube outside the gallbladder. 2. Filling defect in the urinary bladder suggestive of a clot. Clinical correlation advised. 3. Increased compression of T12 suggestive of acute fracture. Chronic fracture in L2. Chest X-Ray 06/13/24 06:50 Impression: Small pleural effusions with probable mild bibasilar pulmonary edema/atelectasis. Abdomen Ultrasound 06/16/24 16:39 IMPRESSION: 1. Poor visualization of what is likely the gallbladder and surrounding bowel and the planned ultrasound-guided percutaneous close ostomy tube placement was deferred with plan to attempt to placement in the morning with CT guidance and with conscious sedation. Catheter Placement CT 06/17/24 12:53 IMPRESSION: 1. Successful CT-guided percutaneous cholecystostomy tube placement. 2. 20 mL fluid was sent for aerobic and anaerobic cultures. 3. The catheter will be managed by Dr. Chester. A catheter cholangiogram may be performed not less than 48 hours after tube placement if clinically indicated to assess cystic duct patency. If cholecystectomy is not eventually performed and the infectious episode has resolved, the tube may be removed over a guidewire, preferably not less than 3 weeks after placement to allow time for a mature catheter tract to form to prevent bile leakage and peritonitis. Labs Labs: Laboratory Results - last 24 hr 06/17/24 06/18/24 18:29 06:04 WBC 6.3 RBC 2.73 L Hgb 8.1 L Hct 27.6 L MCV 101.1 H MCH 29.7 MCHC 29.3 L RDW 15.2 H Plt Count 215 MPV 10.0 Immature Gran % (Auto) 0.5 Neut % (Auto) 66.6 Lymph % (Auto) 19.7 [place] % (Auto) 8.7 H Eos % (Auto) 4.3 Baso % (Auto) 0.2 Lymph # (Auto) 1.24 [place] # (Auto) 0.6 Eos # (Auto) 0.3 Baso # (Auto) 0.0 Abs Immat Gran (auto) 0.03 Absolute Neuts (auto) 4.2 Absolute Nucleated RBC 0.000 Band Neutrophils % Not Reportable Nucleated RBC % 0.0 Platelet Estimate Adequate Anisocytosis 1+ Schistocytes Not Reportable Sodium 142 Potassium 3.8 4.1 Chloride 105 Carbon Dioxide 32 H Anion Gap 5 BUN 5 L Creatinine 0.44 L Estim Creat Clear Calc 76 Estimated GFR > 60 Glucose 96 Calcium 8.0 L Phosphorus 2.3 L Magnesium 1.7 Total Bilirubin 0.7 AST 18 ALT 8 Alkaline Phosphatase 82 Total Protein 5.0 L Albumin 2.7 L
[2024-06-18 11:41] LABS: Alveolar/Arterial O2 Gradient 50.7 mmHg; Base Excess ABG 2.5 mEq/l (+/-2.0); Fractional Inspired Oxygen 24 %; HCO3 ABG 26.4 mEq/l (22.0-26.0); Oxygen Content ABG 13.2 %vol (16.0-22.0); Oxygen Saturation ABG 95.7 % (95.0-100.0); Oxyhemoglobin 95.1 % THb (90.0-100.0); PCO2 ABG 38.2 mmHg (35.0-45.0); PO2 FiO2 Ratio Arterial Blood 3.13 %; Total Hemoglobin 9.8 g/dL (12.0-18.0); pH ABG 7.458 (7.350-7.450)
[2024-06-18 11:42] LABS: Device NASAL CANNULA; Site Drawn LEFT BRACHIAL
[2024-06-18] MEDS: ARTIFICIAL TEARS OPHTH SOLN 15 ML BOTTLE 1 DROP EACH EYE ×2 (12:49→18:19)
[2024-06-18] MEDS: FUROSEMIDE INJ 40 MG/4 ML VIAL IV PUSH ×2 (12:49→20:23)
--- NOTE | 2024-06-18 15:56 | PM.IMPN ---
Progress Note: A&P Assessment and Plan (1) Essential hypertension: Code(s): I10 - Essential (primary) hypertension Status: Acute (2) Coronary artery disease involving [place] coronary artery of [place] heart: Code(s): I25.10 - Atherosclerotic heart disease of [place] coronary artery without angina pectoris Status: Acute (3) Atrial fibrillation: Qualifiers: Atrial fibrillation type: unspecified Qualified Code(s): I48.91 - Unspecified atrial fibrillation Code(s): I48.91 - Unspecified atrial fibrillation Status: Acute (4) Mixed hyperlipidemia: Code(s): E78.2 - Mixed hyperlipidemia Status: Acute (5) Prediabetes: Code(s): R73.03 - Prediabetes Status: Acute (6) Hypothyroidism: Code(s): E03.9 - Hypothyroidism, unspecified Status: Acute (7) Gastroesophageal reflux disease: Code(s): K21.9 - Gastro-esophageal reflux disease without esophagitis Status: Acute (8) Acute cholecystitis: Code(s): K81.0 - Acute cholecystitis Status: Acute (9) Chronic low back pain with sciatica: Code(s): M54.40 - Lumbago with sciatica, unspecified side; G89.29 - Other chronic pain Status: Acute (10) Altered mental status: Code(s): R41.82 - Altered mental status, unspecified Status: Acute Plan Acute hypoxemic respiratory failure from CHF exacerbation CXR showed bilateral pleural effusion ECHO from last month showed normal EF. started on Lasix 40mg bid monitor Malfunctioning Cholecystotomy tube replaced surgery on board Recent Acute cholecystitis on Abx and Cholecystostomy continue above care Hypokalemia and Hypomagnesemia, resolving K 4.1, and Mg 1.7 replaced Mag monitor Anemia Patient is iron replete and B12/folate wnl Hb 8.1 monitor MOnitor H and H Afib Converted to NSR on cardizem infusion Continue Metoprolol 200mg per cardiology on Eliquis HTN Titrate home meds with clinical course CAD continue home meds DVT prophylaxis on Eliquis Possible discharge tomorrow Subjective Date/time seen: 06/18/24 15:56 Interval history: Comfortable at bedside Patient now on oxygen from bilateral pleural effusion, CHF exacerbation Review of Systems Review of Systems: tachycardia All systems reviewed & are unremarkable except as noted in HPI and below Exam Narrative: drain in place Const: General: comfortable Resp: Effort & Inspection: normal respiratory effort Auscultation: clear to auscultation bilaterally Cardio: Rate: regular rate Rhythm: regular rhythm GI: Auscultation: normal bowel sounds Skin: General skin exam: normal color Neuro: Speech: normal speech Motor exam (neuro): Motor abnormalites present Other: pt is oriented to self and intermittently to place. Extrem: Other: bilateral LE edema 3+ Psych: Affect: normal affect Objective Data Vital Signs Vital Signs: Vital Signs - 24 hr 06/17/24 16:00 06/17/24 19:57 06/17/24 20:10 Temperature 98.3 F 97.4 F L Pulse Rate 98 87 87 Respiratory Rate 20 18 18 Blood Pressure 133/53 L 140/72 Pulse Oximetry 100 100 100 Oxygen Delivery Room Air Oxygen Flow Rate 06/17/24 21:50 06/18/24 02:45 06/18/24 06:00 Temperature 98.2 F 97.5 F L Pulse Rate 104 H 97 Respiratory Rate 19 13 Blood Pressure 143/66 H 137/63 Pulse Oximetry 93 96 100 Oxygen Delivery Nasal Cannula Oxygen Flow Rate 2 06/18/24 08:00 06/18/24 08:15 06/18/24 08:20 Temperature Pulse Rate Respiratory Rate Blood Pressure Pulse Oximetry 91 88 L 91 Oxygen Delivery Nasal Cannula Room Air Nasal Cannula Oxygen Flow Rate 1 1 06/18/24 09:15 Temperature Pulse Rate Respiratory Rate Blood Pressure Pulse Oximetry Oxygen Delivery Nasal Cannula Oxygen Flow Rate 2 Intake/Output Intake/Output: Intake & Output 06/15/24 06/16/24 06/17/24 06/18/24 23:59 23:59 23:59 23:59 Intake Total 1946.1 1840 1990 650 Output Total 650 2132 585 3418 Balance 1296.1 140 1075 -450 Meds/Results Medications: Active Medications Generic Name Dose Route Start Last Admin Trade Name Freq PRN Reason Stop Dose Admin Acetaminophen 1,000 mg 06/14/24 11:47 06/16/24 16:45 Acetaminophen 500 Mg Tablet PO 1,000 mg TID PRN Administration pain Albuterol/Ipratropium 3 ml 06/17/24 14:37 Ipratropium 0.5 Mg/Albuterol Sulfate 2.5 Mg Ampul.Neb 3 Ml INHALATION Q6HRT PRN shortness of breath Apixaban 5 mg 06/14/24 11:00 06/18/24 09:13 Apixaban 5 Mg Tablet PO 5 mg Q12HR MELISSA Administration Artificial Tears 1 drop 06/18/24 12:34 06/18/24 12:49 Artificial Tears Ophth Soln 15 Ml Bottle EACH EYE 1 drop QID PRN Administration Dry Eye(s) Atorvastatin Calcium 40 mg 06/14/24 11:00 06/18/24 09:13 Atorvastatin 40 Mg Tablet PO 40 mg DAILY MELISSA Administration Celecoxib 100 mg 06/14/24 11:00 06/18/24 09:13 Celecoxib 100 Mg Capsule PO 100 mg Q12HR MELISSA Administration Cyanocobalamin 500 mcg 06/14/24 11:00 06/18/24 09:13 Cyanocobalamin 500 Mcg Tablet PO 500 mcg QAM MELISSA Administration Cyanocobalamin 2,000 mcg 06/15/24 09:00 06/18/24 09:13 Cyanocobalamin 1,000 Mcg Tablet PO 2,000 mcg QAM MELISSA Administration Diltiazem HCl 120 mg 06/17/24 09:00 06/18/24 09:13 Diltiazem Hcl Cd 120 Mg Cap.24hr PO 120 mg QAM MELISSA Administration Piperacillin/Tazobactam/Dextrose 3.375 gm in 50 mls @ 100 mls/hr 06/13/24 06:00 06/18/24 13:19 Zosyn 3.375 Gm/Ns 50 Ml IVPB Infused Q6HR MELISSA Infusion Levothyroxine Sodium 25 mcg 06/14/24 06:30 06/18/24 05:37 Levothyroxine Sodium 25 Mcg Tablet PO 25 mcg DAILY@0630 MELISSA Administration Lidocaine 1 patch 06/15/24 09:00 06/18/24 09:13 Lidocaine 5% Patch TOPICAL 1 patch DAILY MELISSA Administration Metoprolol Succinate 200 mg 06/14/24 09:00 06/15/24 08:56 Metoprolol Succinate Ext Rel 100 Mg Tabcr PO 200 mg DAILY MELISSA Administration Ondansetron HCl 4 mg 06/14/24 10:55 06/14/24 14:28 Ondansetron Hcl Odt 4 Mg Tablet BY MOUTH 4 mg BID PRN Administration Nausea And Vomiting Pantoprazole Sodium 40 mg 06/14/24 10:55 06/18/24 09:13 Pantoprazole 40 Mg Tablet PO 40 mg QAM MELISSA Administration Tamsulosin HCl 0.4 mg 06/14/24 09:00 06/18/24 09:13 Tamsulosin Hcl 0.4 Mg Capsule PO 0.4 mg DAILY MELISSA Administration Radiology Results: ITS Impressions Head/Neck CTA 06/12/24 22:24 IMPRESSION: 1. Normal CTA head and neck. Percent stenosis per NASCET criteria is 0%. 2. Dominant left vertebral artery. Abdomen/Pelvis CT 06/12/24 22:45 IMPRESSION: 1. Cholecystitis with cholecystostomy tube outside the gallbladder. 2. Filling defect in the urinary bladder suggestive of a clot. Clinical correlation advised. 3. Increased compression of T12 suggestive of acute fracture. Chronic fracture in L2. Abdomen Ultrasound 06/16/24 16:39 IMPRESSION: 1. Poor visualization of what is likely the gallbladder and surrounding bowel and the planned ultrasound-guided percutaneous close ostomy tube placement was deferred with plan to attempt to placement in the morning with CT guidance and with conscious sedation. Catheter Placement CT 06/17/24 12:53 IMPRESSION: 1. Successful CT-guided percutaneous cholecystostomy tube placement. 2. 20 mL fluid was sent for aerobic and anaerobic cultures. 3. The catheter will be managed by Dr. Chester. A catheter cholangiogram may be performed not less than 48 hours after tube placement if clinically indicated to assess cystic duct patency. If cholecystectomy is not eventually performed and the infectious episode has resolved, the tube may be removed over a guidewire, preferably not less than 3 weeks after placement to allow time for a mature catheter tract to form to prevent bile leakage and peritonitis. Chest X-Ray 06/18/24 11:20 IMPRESSION: Bilateral basilar atelectasis versus pneumonia with bilateral pleural effusion. Labs Labs: Laboratory Results - last 24 hr 06/17/24 06/18/24 06/18/24 18:29 06:04 11:36 WBC 6.3 RBC 2.73 L Hgb 8.1 L Hct 27.6 L MCV 101.1 H MCH 29.7 MCHC 29.3 L RDW 15.2 H Plt Count 215 MPV 10.0 Immature Gran % (Auto) 0.5 Neut % (Auto) 66.6 Lymph % (Auto) 19.7 [place] % (Auto) 8.7 H Eos % (Auto) 4.3 Baso % (Auto) 0.2 Lymph # (Auto) 1.24 [place] # (Auto) 0.6 Eos # (Auto) 0.3 Baso # (Auto) 0.0 Abs Immat Gran (auto) 0.03 Absolute Neuts (auto) 4.2 Absolute Nucleated RBC 0.000 Band Neutrophils % Not Reportable Nucleated RBC % 0.0 Platelet Estimate Adequate Anisocytosis 1+ Schistocytes Not Reportable Puncture Site Left brachial ABG pH 7.458 H ABG pCO2 38.2 ABG pO2 75.0 L ABG PO2/FiO2 Ratio 3.13 ABG HCO3 26.4 H ABG O2 Saturation 95.7 ABG O2 Content 13.2 L ABG Base Excess 2.5 A-a Gradient 50.7 Oxyhemoglobin 95.1 Total Hemoglobin 9.8 L O2 Delivery Device Nasal cannula O2 Liters/Min 1.0 FiO2 24 Sodium 142 Potassium 3.8 4.1 Chloride 105 Carbon Dioxide 32 H Anion Gap 5 BUN 5 L Creatinine 0.44 L Estim Creat Clear Calc 76 Estimated GFR > 60 Glucose 96 Calcium 8.0 L Phosphorus 2.3 L Magnesium 1.7 Total Bilirubin 0.7 AST 18 ALT 8 Alkaline Phosphatase 82 Total Protein 5.0 L Albumin 2.7 L Quality VTE Prophylaxis VTE prophylaxis: pharmacologic ordered
[2024-06-18] MEDS: MAGNESIUM SULF 2 GM/WATER 50ML 2 GM/50 ML BAG IVPB (17:03)
--- NOTE | 2024-06-18 17:44 | ECG_ITS ---
Test Date: 2024-06-18 18:04:49 Measurements Intervals [place] Rate: 117 P: 0 SC: 0 QRS: -48 QRSD: 99 T: 131 QT: 343 QTc: 480 Interpretive Statements ATRIAL FIBRILLATION WITH RAPID VENTRICULAR RESPONSE LEFT AXIS DEVIATION [QRS AXIS < -30] LEFT VENTRICULAR HYPERTROPHY AND ST-T CHANGE [VOLTAGE CRITERIA PLUS ST/T ABNORMALITY] Compared to ECG 06/16/2024 09:42:12 Sinus rhythm no longer present Electronically Signed On 06-19-2024 18:23:51 CDT by Palu Franco M.D.
[2024-06-18] MEDS: METOPROLOL TARTRATE 25 MG TABLET PO (18:17)
--- NOTE | 2024-06-18 19:47 | PC.NURSE ---
Pt. transferred to IMU at 19:45 via bed. Report given to Yola. All belongings and appropriate paper work sent with patient. Jodi, daughter and POA, updated and with patient at the time of transfer.
[2024-06-18] MEDS: dilTIAZem 100 MG/100 ML 100 MG/100 ML BAG IV CONT (20:11)
[2024-06-19] VITALS (19 sets, daily range): BP systolic 94–144; BP diastolic 54–76; PULSE 67–96; RESP 16–20; TEMP 36.5–36.8; O2SAT 94–100
[2024-06-19] MEDS: PIPERACILLN/TAZ 3.375GM/NS50ML 3.375 GM/50 ML BAG IVPB ×5 (00:34→23:41)
[2024-06-19 04:23] LABS: Basophils Percent Auto 0.2 % (0.2-1.2); Eosinophils Absolute Auto 0.2 K/mm3 (0-0.3); Eosinophils Percent Auto 4.2 % (0-4.4); Hematocrit 27.5 % (37.0-47.0); Hemoglobin 8.3 g/dL (12.0-15.0); Immature Granulocyte Absolute 0.03 K/mm3 (0.00-0.031); Immature Granulocyte Percent A 0.6 % (0-0.5); Lymphocytes Absolute Auto 1.54 K/mm3 (0.9-3.2); Lymphocytes Percent Auto 28.3 % (18.3-44.2); Mean Corpuscular HGB Conc 30.2 g/dl (32-36); Mean Corpuscular Hemoglobin 29.2 pg (26-34); Mean Corpuscular Volume 96.8 fl (80-100); Mean Platelet Volume 9.5 fl (7.4-10.4); Monocytes Absolute Auto 0.6 K/mm3 (0.1-0.6); Monocytes Percent Auto 10.1 % (2.6-8.5); Neutrophils Absolute Auto 3.1 K/mm3 (1.3-6.7); Neutrophils Percent Auto 56.6 % (45.5-73.1); Platelet Count Result 201 k/mm3 (150-375); Red Blood Count 2.84 M/mm3 (4.2-5.4); Red Cell Distribution Width 15.4 % (11.5-14.5); White Blood Count 5.4 K/mm3 (4.5-10.0)
[2024-06-19 04:37] LABS: Alanine Aminotransferase 9 U/L (6-35); Albumin Level 2.6 g/dL (3.5-5.1); Alkaline Phosphatase 85 U/L (38-126); Anion Gap 3 mmol/L (4-12); Aspartate Amino Transferase 17 U/L (14-36); Bilirubin,Total 0.7 mg/dL (0.2-1.3); Blood Urea Nitrogen 4 mg/dL (7-17); Calcium 7.6 mg/dL (8.4-10.2); Carbon Dioxide 37 mmol/L (22-30); Chloride 98 mmol/L (98-107); Estimated CRCL calculation 76 ml/min; Estimated Glomerular Filt Rate > 60; Glucose 100 mg/dL (65-110); Magnesium 1.6 mg/dL (1.6-2.3); Potassium 2.8 mmol/L (3.4-5.0); Sodium 138 mmol/L (137-145)
[2024-06-19] MEDS: LEVOTHYROXINE SODIUM 25 MCG TABLET PO (06:18)
[2024-06-19] MEDS: POTASSIUM CHLORIDE INJ 40 MEQ in SODIUM CHLORIDE 0.9% IV 500 ML 130 MEQ IVPB (06:48)
[2024-06-19] MEDS: CYANOCOBALAMIN 1,000 MCG TABLET 2000 MCG PO (08:51)
[2024-06-19] MEDS: FUROSEMIDE INJ 40 MG/4 ML VIAL IV PUSH (08:51)
[2024-06-19] MEDS: dilTIAZem HCL CD 120 MG CAP.24HR PO (08:52)
[2024-06-19] MEDS: TAMSULOSIN HCL 0.4 MG CAPSULE PO (08:52)
[2024-06-19] MEDS: ATORVASTATIN 40 MG TABLET PO (08:52)
[2024-06-19] MEDS: CELECOXIB 100 MG CAPSULE PO ×2 (08:53→20:32)
[2024-06-19] MEDS: METOPROLOL TARTRATE 25 MG TABLET PO (08:53)
[2024-06-19] MEDS: LIDOCAINE 5% PATCH 1 PATCH TOPICAL (08:53)
[2024-06-19] MEDS: PANTOPRAZOLE 40 MG TABLET PO (08:53)
[2024-06-19] MEDS: CYANOCOBALAMIN 500 MCG TABLET PO (08:53)
[2024-06-19] MEDS: APIXABAN 5 MG TABLET PO ×2 (08:53→20:32)
[2024-06-19] MEDS: METOPROLOL TARTRATE 25 MG TABLET 75 MG PO (10:27)
[2024-06-19] MEDS: ARTIFICIAL TEARS OPHTH SOLN 15 ML BOTTLE 1 DROP EACH EYE (10:27)
[2024-06-19] MEDS: KCL 20 MEQ/SW 100 ML 100 ML 50 MEQ IVPB (10:57)
--- NOTE | 2024-06-19 12:45 | PC.NURSE ---
On 06/19/24, students, [Jessy Dickson and Kalina Worley], provided care and completed [facility] documentation on this patient. I have reviewed the student's documentation and agree with the findings.
--- NOTE | 2024-06-19 14:00 | PCPTNOTE ---
Attempted to see patient for PT, however patient was working with OT.
--- NOTE | 2024-06-19 14:52 | PM.IMPN ---
Progress Note: A&P Assessment and Plan (1) Essential hypertension: Code(s): I10 - Essential (primary) hypertension Status: Acute (2) Coronary artery disease involving [place] coronary artery of [place] heart: Code(s): I25.10 - Atherosclerotic heart disease of [place] coronary artery without angina pectoris Status: Acute (3) Atrial fibrillation: Qualifiers: Atrial fibrillation type: unspecified Qualified Code(s): I48.91 - Unspecified atrial fibrillation Code(s): I48.91 - Unspecified atrial fibrillation Status: Acute (4) Mixed hyperlipidemia: Code(s): E78.2 - Mixed hyperlipidemia Status: Acute (5) Prediabetes: Code(s): R73.03 - Prediabetes Status: Acute (6) Hypothyroidism: Code(s): E03.9 - Hypothyroidism, unspecified Status: Acute (7) Gastroesophageal reflux disease: Code(s): K21.9 - Gastro-esophageal reflux disease without esophagitis Status: Acute (8) Acute cholecystitis: Code(s): K81.0 - Acute cholecystitis Status: Acute (9) Chronic low back pain with sciatica: Code(s): M54.40 - Lumbago with sciatica, unspecified side; G89.29 - Other chronic pain Status: Acute (10) Altered mental status: Code(s): R41.82 - Altered mental status, unspecified Status: Acute Plan Acute hypoxemic respiratory failure from CHF exacerbation CXR showed bilateral pleural effusion ECHO from last month showed normal EF. started on Lasix 40mg bid monitor Malfunctioning Cholecystotomy tube replaced surgery on board Recent Acute cholecystitis on Abx and Cholecystostomy continue above care Hypokalemia and Hypomagnesemia, resolving K 4.1, and Mg 1.7 replaced Mag monitor Anemia Patient is iron replete and B12/folate wnl Hb 8.1 monitor MOnitor H and H Afib Converted to NSR on cardizem infusion Continue Diltiazem 120mg daily and Metoprolol 100mg per cardiology on Eliquis monitor one more night HTN Titrate home meds with clinical course CAD continue home meds DVT prophylaxis on Eliquis Possible discharge tomorrow Subjective Date/time seen: 06/19/24 14:52 Interval history: Comfortable at bedside markedly improved from yesterday Review of Systems Review of Systems: tachycardia All systems reviewed & are unremarkable except as noted in HPI and below Exam Narrative: drain in place Const: General: comfortable Resp: Effort & Inspection: normal respiratory effort Auscultation: clear to auscultation bilaterally Cardio: Rate: regular rate Rhythm: regular rhythm GI: Auscultation: normal bowel sounds Skin: General skin exam: normal color Neuro: Speech: normal speech Motor exam (neuro): Motor abnormalites present Other: pt is oriented to self and intermittently to place. Extrem: Other: bilateral LE edema 3+ Psych: Affect: normal affect Objective Data Vital Signs Vital Signs: Vital Signs - 24 hr 06/18/24 15:15 06/18/24 16:00 06/18/24 16:24 Temperature 97.6 F Pulse Rate 120 H Respiratory Rate 16 Blood Pressure 124/76 Pulse Oximetry 88 L 100 Oxygen Delivery Room Air Room Air Oxygen Flow Rate Fraction of Inspired Oxygen 06/18/24 17:35 06/18/24 17:44 06/18/24 18:17 Temperature Pulse Rate 117 H Respiratory Rate Blood Pressure Pulse Oximetry 87 L 96 Oxygen Delivery Room Air Nasal Cannula Oxygen Flow Rate 2 Fraction of Inspired Oxygen 06/18/24 18:40 06/18/24 20:00 06/18/24 20:00 Temperature 98.2 F Pulse Rate 162 H 106 H 105 H Respiratory Rate 20 16 Blood Pressure 100/52 L 113/59 L Pulse Oximetry 98 100 Oxygen Delivery Nasal Cannula Oxygen Flow Rate 2 Fraction of Inspired Oxygen 06/18/24 20:00 06/18/24 20:11 06/18/24 22:00 Temperature Pulse Rate 105 H 102 H 86 Respiratory Rate Blood Pressure 113/59 L 114/64 Pulse Oximetry Oxygen Delivery Oxygen Flow Rate Fraction of Inspired Oxygen 06/18/24 22:00 06/18/24 23:49 06/19/24 00:00 Temperature 98.2 F Pulse Rate 86 90 92 Respiratory Rate 16 16 Blood Pressure 114/64 115/65 Pulse Oximetry 100 100 Oxygen Delivery Nasal Cannula Oxygen Flow Rate 2 Fraction of Inspired Oxygen 06/19/24 00:00 06/19/24 00:00 06/19/24 02:00 Temperature Pulse Rate 92 90 92 Respiratory Rate Blood Pressure 115/65 Pulse Oximetry Oxygen Delivery Oxygen Flow Rate Fraction of Inspired Oxygen 06/19/24 02:00 06/19/24 02:00 06/19/24 04:00 Temperature 98 F Pulse Rate 92 92 83 Respiratory Rate 16 Blood Pressure 111/54 L 111/54 L 131/58 L Pulse Oximetry 100 Oxygen Delivery Oxygen Flow Rate Fraction of Inspired Oxygen 06/19/24 04:00 06/19/24 04:00 06/19/24 04:00 Temperature Pulse Rate 83 83 83 Respiratory Rate 16 Blood Pressure 131/58 L Pulse Oximetry 100 Oxygen Delivery Nasal Cannula Oxygen Flow Rate 2 Fraction of Inspired Oxygen 28 06/19/24 06:00 06/19/24 08:00 06/19/24 08:00 Temperature 97.9 F Pulse Rate 74 81 81 Respiratory Rate 20 Blood Pressure 122/56 L 122/56 L Pulse Oximetry 95 Oxygen Delivery Oxygen Flow Rate Fraction of Inspired Oxygen 06/19/24 08:00 06/19/24 08:53 06/19/24 10:00 Temperature Pulse Rate 83 90 87 Respiratory Rate Blood Pressure 127/73 Pulse Oximetry Oxygen Delivery Oxygen Flow Rate Fraction of Inspired Oxygen 06/19/24 10:00 06/19/24 10:22 06/19/24 10:27 Temperature Pulse Rate 96 87 85 Respiratory Rate Blood Pressure 127/73 Pulse Oximetry Oxygen Delivery Oxygen Flow Rate Fraction of Inspired Oxygen 06/19/24 11:59 06/19/24 12:00 06/19/24 14:00 Temperature 97.7 F Pulse Rate 74 70 71 Respiratory Rate 16 Blood Pressure 144/76 H Pulse Oximetry 99 Oxygen Delivery Oxygen Flow Rate Fraction of Inspired Oxygen Intake/Output Intake/Output: Intake & Output 06/16/24 06/17/24 06/18/24 06/19/24 23:59 23:59 23:59 23:59 Intake Total 1840 1990 709.1 720 Output Total 6806 839 9087 400 Balance 140 1075 -1090.9 320 Meds/Results Medications: Active Medications Generic Name Dose Route Start Last Admin Trade Name Freq PRN Reason Stop Dose Admin Acetaminophen 1,000 mg 06/14/24 11:47 06/16/24 16:45 Acetaminophen 500 Mg Tablet PO 1,000 mg TID PRN Administration pain Albuterol/Ipratropium 3 ml 06/17/24 14:37 Ipratropium 0.5 Mg/Albuterol Sulfate 2.5 Mg Ampul.Neb 3 Ml INHALATION Q6HRT PRN shortness of breath Apixaban 5 mg 06/14/24 11:00 06/19/24 08:53 Apixaban 5 Mg Tablet PO 5 mg Q12HR MELISSA Administration Artificial Tears 1 drop 06/18/24 12:34 06/19/24 10:27 Artificial Tears Ophth Soln 15 Ml Bottle EACH EYE 1 drop QID PRN Administration Dry Eye(s) Atorvastatin Calcium 40 mg 06/14/24 11:00 06/19/24 08:52 Atorvastatin 40 Mg Tablet PO 40 mg DAILY MELISSA Administration Celecoxib 100 mg 06/14/24 11:00 06/19/24 08:53 Celecoxib 100 Mg Capsule PO 100 mg Q12HR MELISSA Administration Cyanocobalamin 500 mcg 06/14/24 11:00 06/19/24 08:53 Cyanocobalamin 500 Mcg Tablet PO 500 mcg QAM MELISSA Administration Cyanocobalamin 2,000 mcg 06/15/24 09:00 06/19/24 08:51 Cyanocobalamin 1,000 Mcg Tablet PO 2,000 mcg QAM MELISSA Administration Furosemide 40 mg 06/18/24 20:00 06/19/24 08:51 Furosemide Inj 40 Mg/4 Ml Vial IV PUSH 40 mg BID MELISSA Administration Piperacillin/Tazobactam/Dextrose 3.375 gm in 50 mls @ 100 mls/hr 06/13/24 06:00 06/19/24 12:45 Zosyn 3.375 Gm/Ns 50 Ml IVPB Infused Q6HR MELISSA Infusion Levothyroxine Sodium 25 mcg 06/14/24 06:30 06/19/24 06:18 Levothyroxine Sodium 25 Mcg Tablet PO 25 mcg DAILY@0630 MELISSA Administration Lidocaine 1 patch 06/15/24 09:00 06/19/24 08:53 Lidocaine 5% Patch TOPICAL 1 patch DAILY MELISSA Administration Metoprolol Succinate 100 mg 06/20/24 09:00 Metoprolol Succinate Ext Rel 100 Mg Tabcr PO DAILY [facility] Metoprolol Tartrate 50 mg 06/19/24 21:00 Metoprolol Tartrate 50 Mg Tab PO 06/19/24 21:01 ONCE ONE Ondansetron HCl 4 mg 06/14/24 10:55 06/14/24 14:28 Ondansetron Hcl Odt 4 Mg Tablet BY MOUTH 4 mg BID PRN Administration Nausea And Vomiting Pantoprazole Sodium 40 mg 06/14/24 10:55 06/19/24 08:53 Pantoprazole 40 Mg Tablet PO 40 mg QAM MELISSA Administration Tamsulosin HCl 0.4 mg 06/14/24 09:00 06/19/24 08:52 Tamsulosin Hcl 0.4 Mg Capsule PO 0.4 mg DAILY MELISSA Administration Radiology Results: ITS Impressions Head/Neck CTA 06/12/24 22:24 IMPRESSION: 1. Normal CTA head and neck. Percent stenosis per NASCET criteria is 0%. 2. Dominant left vertebral artery. Abdomen/Pelvis CT 06/12/24 22:45 IMPRESSION: 1. Cholecystitis with cholecystostomy tube outside the gallbladder. 2. Filling defect in the urinary bladder suggestive of a clot. Clinical correlation advised. 3. Increased compression of T12 suggestive of acute fracture. Chronic fracture in L2. Abdomen Ultrasound 06/16/24 16:39 IMPRESSION: 1. Poor visualization of what is likely the gallbladder and surrounding bowel and the planned ultrasound-guided percutaneous close ostomy tube placement was deferred with plan to attempt to placement in the morning with CT guidance and with conscious sedation. Catheter Placement CT 06/17/24 12:53 IMPRESSION: 1. Successful CT-guided percutaneous cholecystostomy tube placement. 2. 20 mL fluid was sent for aerobic and anaerobic cultures. 3. The catheter will be managed by Dr. Chester. A catheter cholangiogram may be performed not less than 48 hours after tube placement if clinically indicated to assess cystic duct patency. If cholecystectomy is not eventually performed and the infectious episode has resolved, the tube may be removed over a guidewire, preferably not less than 3 weeks after placement to allow time for a mature catheter tract to form to prevent bile leakage and peritonitis. Chest X-Ray 06/18/24 11:20 IMPRESSION: Bilateral basilar atelectasis versus pneumonia with bilateral pleural effusion. Labs Labs: Laboratory Results - last 24 hr 06/19/24 04:15 WBC 5.4 RBC 2.84 L Hgb 8.3 L Hct 27.5 L MCV 96.8 MCH 29.2 MCHC 30.2 L RDW 15.4 H Plt Count 201 MPV 9.5 Immature Gran % (Auto) 0.6 H Neut % (Auto) 56.6 Lymph % (Auto) 28.3 [place] % (Auto) 10.1 H Eos % (Auto) 4.2 Baso % (Auto) 0.2 Lymph # (Auto) 1.54 [place] # (Auto) 0.6 Eos # (Auto) 0.2 Baso # (Auto) 0.0 Abs Immat Gran (auto) 0.03 Absolute Neuts (auto) 3.1 Absolute Nucleated RBC 0.000 Nucleated RBC % 0.0 Sodium 138 Potassium 2.8 L* Chloride 98 Carbon Dioxide 37 H Anion Gap 3 L BUN 4 L Creatinine 0.44 L Estim Creat Clear Calc 76 Estimated GFR > 60 Glucose 100 Calcium 7.6 L Magnesium 1.6 Total Bilirubin 0.7 AST 17 ALT 9 Alkaline Phosphatase 85 Total Protein 5.0 L Albumin 2.6 L Quality VTE Prophylaxis VTE prophylaxis: pharmacologic ordered
[2024-06-19] MEDS: FUROSEMIDE INJ 40 MG/4 ML VIAL 20 MG IV PUSH (18:35)
[2024-06-19] MEDS: METOPROLOL TARTRATE 50 MG TAB PO (20:31)
[2024-06-20] VITALS (10 sets, daily range): BP systolic 119–136; BP diastolic 56–68; PULSE 66–78; RESP 16–22; TEMP 36.3–36.8; O2SAT 92–100
[2024-06-20] MEDS: PIPERACILLN/TAZ 3.375GM/NS50ML 3.375 GM/50 ML BAG IVPB ×4 (06:11→23:59)
[2024-06-20] MEDS: LEVOTHYROXINE SODIUM 25 MCG TABLET PO (06:11)
[2024-06-20 07:12] LABS: Anion Gap 3 mmol/L (4-12); Blood Urea Nitrogen 4 mg/dL (7-17); Calcium 7.6 mg/dL (8.4-10.2); Carbon Dioxide 35 mmol/L (22-30); Chloride 99 mmol/L (98-107); Estimated CRCL calculation 63 ml/min; Estimated Glomerular Filt Rate > 60; Glucose 95 mg/dL (65-110); Potassium 3.3 mmol/L (3.4-5.0); Sodium 137 mmol/L (137-145)
[2024-06-20] MEDS: CELECOXIB 100 MG CAPSULE PO ×2 (08:56→20:21)
[2024-06-20] MEDS: APIXABAN 5 MG TABLET PO ×2 (08:56→20:21)
[2024-06-20] MEDS: CYANOCOBALAMIN 500 MCG TABLET PO (08:56)
[2024-06-20] MEDS: CYANOCOBALAMIN 1,000 MCG TABLET 2000 MCG PO (08:56)
[2024-06-20] MEDS: ATORVASTATIN 40 MG TABLET PO (08:57)
[2024-06-20] MEDS: LIDOCAINE 5% PATCH 1 PATCH TOPICAL (08:57)
[2024-06-20] MEDS: PANTOPRAZOLE 40 MG TABLET PO (08:57)
[2024-06-20] MEDS: METOPROLOL SUCCINATE EXT REL 100 MG TABCR PO (08:57)
[2024-06-20] MEDS: FUROSEMIDE INJ 40 MG/4 ML VIAL 20 MG IV PUSH ×2 (08:57→16:30)
[2024-06-20] MEDS: TAMSULOSIN HCL 0.4 MG CAPSULE PO (08:57)
--- NOTE | 2024-06-20 12:16 | P.DS_ITS ---
DS: Admitting Diagnosis Discharge Date 06/20/24 Admitting Diagnosis ams DS: Discharge Diagnosis Discharge Diagnosis (1) Atrial fibrillation: Qualifiers: Atrial fibrillation type: unspecified Qualified Code(s): I48.91 - Unspecified atrial fibrillation Code(s): I48.91 - Unspecified atrial fibrillation Status: Acute DS: Summary Hospital Course Hospital Course: 84-year-old female with CAD, HTN and pre-DM,percutaneous cholecystectomy drain presenting for altered mental status. She was her base self earlier yesterday but later, around 4:00 p.m. the staff noticed that she was more confused. They reported garbled speech. no one sided weakness. The patient was sent to the emergency department for evaluation of a stroke. Of note, pt was seen per general surgery, DR Mckenzie on 05/26 for recent hospitalization 05/02-05/11 for sepsis. She was s/p cholecystostomy tube placement 05/06/2024. Bile was sent for aerobic anaerobic culture while she was hospitalized which is growing g variable bacilli. She was on IV Zosyn which has been switched to oral Augmentin- she completed the course of antibiotics. She was also in RVR- card drip. Metoprolol was switched to long acting. in ED: CT abd/pelv: Perc drain has been dislodged and her gallbladder is swollen and edematous. liver enzymes- stable. VS stable. wbc 9, hg/hct- 9.4/30.7. She has been started on IV zosyn. NO IR available over the weekend, ER MD discussed with Dr. Chester who is senior safety management consultant and agreed to consult on the case and figure out a plan of action in the morning. CT incidentally found a T12 compression fracture. Patient has malfunctioning cholecystostomy tube replaced and drainage resumed. however she went into Afib with RVR and CHF exacerbation. Eventually rated controlled with Cardizem 120mg and yesterday was changed over to 100mg Metoprolol, continued on Eliquis. cardiology was consulted and involved in patient's care. HR in kierra 70s. ECHO showed normal EF, she was Lasix 40mg IV and discharged on 40mg po bid and patient will continue follow up with cardiology. Duyen will continue follow up with PCP in 3-5 days F/u with Gen Surgery and cardiology as instructed Time Spent with Patient Time attestation: Total time spent providing and/or coordinating discharge services: DS: Data Data Completed and Pending Labs on day of discharge: Labs from last 24 hours 06/20/24 06:53 Sodium 137 Potassium 3.3 L Chloride 99 Carbon Dioxide 35 H Anion Gap 3 L BUN 4 L Creatinine 0.53 L Estim Creat Clear Calc 63 Estimated GFR > 60 Glucose 95 Calcium 7.6 L Preliminary micro results at discharge 06/17/24 10:35 Anaerobic Culture - Preliminary Gallbladder Discharge Plan Discharge Attending physician on discharge: Nae Morel Consulting providers: Caio Chester; Leigh Ann Leon Discharging Clinician: Nae Morel Anticipated Discharge Date/Time: 06/17/24 14:04 Patient Disposition: Home Health Service Activity: as tolerated Diet: heart healthy Discharge Instructions: Per Care Coordination, patient to discharge with [facility] ([phone]) for PT/ OT and alf services. Agency will call to arrange initial visit. * Empty and record output from the cholecystostomy tube daily. Bring this into the surgeon's appointment. * Call to schedule an appointment with either Dr. Chester or Dr. Mckenzie in 2 weeks in our office. [phone] * Change the gauze dressing over the cholecystostomy tube every 3-4 days or if soiled. * You may change the gauze dressing where the old tube was located every day. You may change the gauze more frequently if soiled. By next week, if there is no longer any drainage, then you can leave this area open to air. Patient Instructions: Antibiotic Form, Apixaban (By mouth) Patient Language: [place] Stand Alone Forms: General Discharge Information Follow-up/Referrals: Caio Chester MD [Physician] - 2 Weeks Discharge Medications: New metoprolol succinate [Toprol XL] 100 mg Tablet Extended Release 24 Hr 100 mg PO DAILY 30 Days Qty: 30 1RF furosemide [Lasix] 40 mg tablet 40 mg PO BID 30 Days Qty: 60 0RF Continued levothyroxine 25 mcg tablet 25 mcg PO DAILY Qty: 90 1RF (DME) egg crate mattress for chair See Rx Instructions .Route .MEDSUPPLY Qty: 1 0RF Rx Instructions: As directed (DME) duoderm dressing See Rx Instructions .Route .MEDSUPPLY Qty: 1 0RF Rx Instructions: As directed cyanocobalamin (vitamin B-12) 2,500 mcg Tablet 2,500 mcg PO QAM Qty: 90 0RF nitroglycerin 0.4 mg tablet, sublingual 0.4 mg sublingual Q5M PRN (Reason: chest pain) ipratropium-albuterol 0.5 mg-3 mg(2.5 mg base)/3 mL Solution For Nebulization 3 ml inhalation Q6HRT Qty: 30 0RF Eliquis 5 mg Tablet 5 mg PO Q12HR Qty: 60 0RF lidocaine 5 % adhesive patch,medicated 1 patch topical DAILY Rx Instructions: leave on most painful area for up to 12 hrs acetaminophen 500 mg capsule 1,000 mg PO TID PRN (Reason: pain) tamsulosin 0.4 mg capsule 0.4 mg PO DAILY celecoxib [Celebrex] 100 mg capsule 100 mg PO BID Patient Comments: Two times daily for five days starting 06/08/2024. potassium chloride 20 mEq tablet,ER particles/crystals 40 meq PO DAILY amitriptyline 10 mg tablet 20 mg PO .HS atorvastatin 40 mg tablet 40 mg PO DAILY Qty: 90 3RF omeprazole 20 mg capsule,delayed release(DR/EC) 40 mg PO DAILY Qty: 180 2RF Rx Instructions: before breakfast ondansetron HCl 4 mg tablet See Rx Instructions .ROUTE .COMPLEX Qty: 40 0RF Dose Instruction: TAKE 1 TABLET BY MOUTH TWICE DAILY NEEDED FOR NAUSEA Rx Instructions: TAKE 1 TABLET BY MOUTH TWICE DAILY NEEDED FOR NAUSEA amoxicillin-pot clavulanate 875-125 mg tablet 1 tablet PO Q12H Qty: 30 0RF Patient Comments: Two times daily for fifteen days starting 06/11/2024. Discontinued metoprolol succinate 200 mg tablet extended release 24 hr 200 mg PO DAILY Qty: 30 0RF Date of admission: 06/13/24 03:27 Primary Care Provider: Milagros Haq Admitting Provider: Kathrine Gorman Attending physician on admission: Kathrine Gorman Condition: Stable
--- NOTE | 2024-06-20 13:53 | PM.IMPN ---
Progress Note: A&P Assessment and Plan (1) Atrial fibrillation: Qualifiers: Atrial fibrillation type: unspecified Qualified Code(s): I48.91 - Unspecified atrial fibrillation Code(s): I48.91 - Unspecified atrial fibrillation Status: Acute Plan Acute hypoxemic respiratory failure from CHF exacerbation CXR showed bilateral pleural effusion ECHO from last month showed normal EF. started on Lasix 20mg bid monitor Malfunctioning Cholecystotomy tube replaced surgery on board Recent Acute cholecystitis on Abx and Cholecystostomy continue above care Hypokalemia and Hypomagnesemia, resolving K 3.3, and Mg 1.7 replaced Mag monitor Anemia Patient is iron replete and B12/folate wnl Hb 8.1 monitor Monitor H and H Afib s/p Cardizem infusion now on Metoprolol 100mg bid, continue Eliquis HTN Titrate home meds with clinical course CAD continue home meds DVT prophylaxis on Eliquis awaiting SNF placement Subjective Date/time seen: 06/20/24 13:53 Interval history: Comfortable at bedside Patient was discharged today however family changed their mind and opted for SNF placement Review of Systems Review of Systems: tachycardia All systems reviewed & are unremarkable except as noted in HPI and below Exam Narrative: drain in place Const: General: comfortable Resp: Effort & Inspection: normal respiratory effort Auscultation: clear to auscultation bilaterally Cardio: Rate: regular rate Rhythm: regular rhythm GI: Auscultation: normal bowel sounds Skin: General skin exam: normal color Neuro: Speech: normal speech Motor exam (neuro): Motor abnormalites present Other: pt is oriented to self and intermittently to place. Extrem: Other: bilateral LE edema 3+ Psych: Affect: normal affect Objective Data Vital Signs Vital Signs: Vital Signs - 24 hr 06/19/24 14:00 06/19/24 16:00 06/19/24 16:00 Temperature 98.1 F Pulse Rate 71 69 67 Respiratory Rate 20 Blood Pressure 94/76 L Pulse Oximetry 96 Oxygen Delivery Fraction of Inspired Oxygen 06/19/24 18:09 06/19/24 20:00 06/19/24 20:00 Temperature 98.2 F Pulse Rate 76 74 73 Respiratory Rate 18 Blood Pressure 119/56 L 133/59 L Pulse Oximetry 94 Oxygen Delivery Fraction of Inspired Oxygen 06/19/24 20:00 06/19/24 20:31 06/19/24 22:00 Temperature Pulse Rate 73 74 72 Respiratory Rate 18 Blood Pressure Pulse Oximetry 94 Oxygen Delivery Room Air Fraction of Inspired Oxygen 06/19/24 23:52 06/19/24 23:52 06/19/24 23:53 Temperature 98.2 F Pulse Rate 68 68 70 Respiratory Rate 18 16 Blood Pressure 126/66 Pulse Oximetry 94 94 Oxygen Delivery Room Air Fraction of Inspired Oxygen 06/20/24 02:00 06/20/24 04:00 06/20/24 04:00 Temperature Pulse Rate 66 75 75 Respiratory Rate 16 Blood Pressure Pulse Oximetry 94 Oxygen Delivery Room Air Fraction of Inspired Oxygen 06/20/24 04:00 06/20/24 06:00 06/20/24 08:00 Temperature 97.4 F L 97.8 F Pulse Rate 74 74 73 Respiratory Rate 20 22 H Blood Pressure 129/57 L 136/68 Pulse Oximetry 92 96 Oxygen Delivery Fraction of Inspired Oxygen 06/20/24 08:00 06/20/24 08:00 06/20/24 10:00 Temperature Pulse Rate 78 75 Respiratory Rate Blood Pressure Pulse Oximetry Oxygen Delivery Room Air Fraction of Inspired Oxygen 06/20/24 12:00 06/20/24 12:00 06/20/24 12:00 Temperature 98.3 F Pulse Rate 77 75 Respiratory Rate 20 Blood Pressure 135/61 Pulse Oximetry 94 Oxygen Delivery Room Air Fraction of Inspired Oxygen Intake/Output Intake/Output: Intake & Output 06/17/24 06/18/24 06/19/24 06/20/24 23:59 23:59 23:59 23:59 Intake Total 1989 709.1 890 640 Output Total 915 1800 985 600 Balance 1075 -1090.9 -95 40 Meds/Results Medications: Active Medications Generic Name Dose Route Start Last Admin Trade Name Freq PRN Reason Stop Dose Admin Acetaminophen 1,000 mg 06/14/24 11:47 06/16/24 16:45 Acetaminophen 500 Mg Tablet PO 1,000 mg TID PRN Administration pain Albuterol/Ipratropium 3 ml 06/17/24 14:37 Ipratropium 0.5 Mg/Albuterol Sulfate 2.5 Mg Ampul.Neb 3 Ml INHALATION Q6HRT PRN shortness of breath Apixaban 5 mg 06/14/24 11:00 06/20/24 08:56 Apixaban 5 Mg Tablet PO 5 mg Q12HR MELISSA Administration Artificial Tears 1 drop 06/18/24 12:34 06/19/24 10:27 Artificial Tears Ophth Soln 15 Ml Bottle EACH EYE 1 drop QID PRN Administration Dry Eye(s) Atorvastatin Calcium 40 mg 06/14/24 11:00 06/20/24 08:57 Atorvastatin 40 Mg Tablet PO 40 mg DAILY MELISSA Administration Celecoxib 100 mg 06/14/24 11:00 06/20/24 08:56 Celecoxib 100 Mg Capsule PO 100 mg Q12HR MELISSA Administration Cyanocobalamin 500 mcg 06/14/24 11:00 06/20/24 08:56 Cyanocobalamin 500 Mcg Tablet PO 500 mcg QAM MELISSA Administration Cyanocobalamin 2,000 mcg 06/15/24 09:00 06/20/24 08:56 Cyanocobalamin 1,000 Mcg Tablet PO 2,000 mcg QAM MELISSA Administration Furosemide 20 mg 06/19/24 18:15 06/20/24 08:57 Furosemide Inj 40 Mg/4 Ml Vial IV PUSH 20 mg BID MELISSA Administration Piperacillin/Tazobactam/Dextrose 3.375 gm in 50 mls @ 100 mls/hr 06/13/24 06:00 06/20/24 13:50 Zosyn 3.375 Gm/Ns 50 Ml IVPB 100 mls/hr Q6HR MELISSA Administration Levothyroxine Sodium 25 mcg 06/14/24 06:30 06/20/24 06:11 Levothyroxine Sodium 25 Mcg Tablet PO 25 mcg DAILY@0630 MELISSA Administration Lidocaine 1 patch 06/15/24 09:00 06/20/24 08:57 Lidocaine 5% Patch TOPICAL 1 patch DAILY MELISSA Administration Metoprolol Succinate 100 mg 06/20/24 09:00 06/20/24 08:57 Metoprolol Succinate Ext Rel 100 Mg Tabcr PO 100 mg DAILY MELISSA Administration Ondansetron HCl 4 mg 06/14/24 10:55 06/14/24 14:28 Ondansetron Hcl Odt 4 Mg Tablet BY MOUTH 4 mg BID PRN Administration Nausea And Vomiting Pantoprazole Sodium 40 mg 06/14/24 10:55 06/20/24 08:57 Pantoprazole 40 Mg Tablet PO 40 mg QAM MELISSA Administration Tamsulosin HCl 0.4 mg 06/14/24 09:00 06/20/24 08:57 Tamsulosin Hcl 0.4 Mg Capsule PO 0.4 mg DAILY MELISSA Administration Radiology Results: ITS Impressions Head/Neck CTA 06/12/24 22:24 IMPRESSION: 1. Normal CTA head and neck. Percent stenosis per NASCET criteria is 0%. 2. Dominant left vertebral artery. Abdomen/Pelvis CT 06/12/24 22:45 IMPRESSION: 1. Cholecystitis with cholecystostomy tube outside the gallbladder. 2. Filling defect in the urinary bladder suggestive of a clot. Clinical correlation advised. 3. Increased compression of T12 suggestive of acute fracture. Chronic fracture in L2. Abdomen Ultrasound 06/16/24 16:39 IMPRESSION: 1. Poor visualization of what is likely the gallbladder and surrounding bowel and the planned ultrasound-guided percutaneous close ostomy tube placement was deferred with plan to attempt to placement in the morning with CT guidance and with conscious sedation. Catheter Placement CT 06/17/24 12:53 IMPRESSION: 1. Successful CT-guided percutaneous cholecystostomy tube placement. 2. 20 mL fluid was sent for aerobic and anaerobic cultures. 3. The catheter will be managed by Dr. Chester. A catheter cholangiogram may be performed not less than 48 hours after tube placement if clinically indicated to assess cystic duct patency. If cholecystectomy is not eventually performed and the infectious episode has resolved, the tube may be removed over a guidewire, preferably not less than 3 weeks after placement to allow time for a mature catheter tract to form to prevent bile leakage and peritonitis. Chest X-Ray 06/18/24 11:20 IMPRESSION: Bilateral basilar atelectasis versus pneumonia with bilateral pleural effusion. Labs Labs: Laboratory Results - last 24 hr 06/20/24 06:53 Sodium 137 Potassium 3.3 L Chloride 99 Carbon Dioxide 35 H Anion Gap 3 L BUN 4 L Creatinine 0.53 L Estim Creat Clear Calc 63 Estimated GFR > 60 Glucose 95 Calcium 7.6 L Quality VTE Prophylaxis VTE prophylaxis: pharmacologic ordered
[2024-06-20] MEDS: MAGNESIUM SULF 2 GM/WATER 50ML 2 GM/50 ML BAG IVPB (14:46)
[2024-06-20] MEDS: POTASSIUM CHLORIDE 20 MEQ PACKET (FOR LIQUID) 40 MEQ PO (16:30)
[2024-06-21] VITALS (12 sets, daily range): BP systolic 107–129; BP diastolic 44–69; PULSE 67–77; RESP 14–18; TEMP 36.3–37.2; O2SAT 90–100
[2024-06-21 05:38] LABS: Basophils Percent Auto 0.3 % (0.2-1.2); Eosinophils Absolute Auto 0.3 K/mm3 (0-0.3); Hemoglobin 8.8 g/dL (12.0-15.0); Immature Granulocyte Absolute 0.01 K/mm3 (0.00-0.031); Immature Granulocyte Percent A 0.3 % (0-0.5); Lymphocytes Absolute Auto 1.58 K/mm3 (0.9-3.2); Lymphocytes Percent Auto 42.8 % (18.3-44.2); Mean Corpuscular HGB Conc 30.3 g/dl (32-36); Mean Corpuscular Hemoglobin 29.6 pg (26-34); Mean Corpuscular Volume 97.6 fl (80-100); Monocytes Absolute Auto 0.5 K/mm3 (0.1-0.6); Neutrophils Absolute Auto 1.4 K/mm3 (1.3-6.7); Neutrophils Percent Auto 36.6 % (45.5-73.1); Platelet Count Result 213 k/mm3 (150-375); Red Blood Count 2.97 M/mm3 (4.2-5.4); Red Cell Distribution Width 15.3 % (11.5-14.5); White Blood Count 3.7 K/mm3 (4.5-10.0)
[2024-06-21] MEDS: PIPERACILLN/TAZ 3.375GM/NS50ML 3.375 GM/50 ML BAG IVPB ×3 (05:40→17:35)
[2024-06-21] MEDS: LEVOTHYROXINE SODIUM 25 MCG TABLET PO (05:46)
[2024-06-21 05:50] LABS: Alanine Aminotransferase 9 U/L (6-35); Albumin Level 2.4 g/dL (3.5-5.1); Alkaline Phosphatase 86 U/L (38-126); Anion Gap 4 mmol/L (4-12); Aspartate Amino Transferase 20 U/L (14-36); Bilirubin,Total 0.5 mg/dL (0.2-1.3); Blood Urea Nitrogen 4 mg/dL (7-17); Calcium 7.9 mg/dL (8.4-10.2); Carbon Dioxide 38 mmol/L (22-30); Chloride 98 mmol/L (98-107); Estimated CRCL calculation 55 ml/min; Estimated Glomerular Filt Rate > 60; Glucose 91 mg/dL (65-110); Magnesium 1.8 mg/dL (1.6-2.3); Potassium 3.4 mmol/L (3.4-5.0); Sodium 140 mmol/L (137-145)
--- NOTE | 2024-06-21 09:08 | PM.IMPN ---
Progress Note: A&P Assessment and Plan (1) Atrial fibrillation: Qualifiers: Atrial fibrillation type: unspecified Qualified Code(s): I48.91 - Unspecified atrial fibrillation Code(s): I48.91 - Unspecified atrial fibrillation Status: Acute Assessment and Plan: Heart rate is controlled, continue current treatment. Plan Acute hypoxemic respiratory failure from CHF exacerbation CXR showed bilateral pleural effusion ECHO from last month showed normal EF. started on Lasix 20mg bid monitor Malfunctioning Cholecystotomy tube replaced surgery on board Recent Acute cholecystitis on Abx and Cholecystostomy continue above care Hypokalemia and Hypomagnesemia, resolving Anemia Patient is iron replete and B12/folate wnl Hb 8.1 monitor Monitor H and H Afib s/p Cardizem infusion now on Metoprolol 100mg bid, continue Eliquis HTN Titrate home meds with clinical course CAD continue home meds DVT prophylaxis on Eliquis awaiting SNF placement Subjective Date/time seen: 06/21/24 09:08 Interval history: Patient was seen during the morning round. No new complaints. Comfortable at bedside Waiting for placement. Review of Systems Review of Systems: tachycardia All systems reviewed & are unremarkable except as noted in HPI and below Exam Narrative: drain in place Const: General: comfortable Resp: Effort & Inspection: normal respiratory effort Auscultation: clear to auscultation bilaterally Cardio: Rate: regular rate Rhythm: regular rhythm GI: Auscultation: normal bowel sounds Skin: General skin exam: normal color Neuro: Speech: normal speech Motor exam (neuro): Motor abnormalites present Other: pt is oriented to self and intermittently to place. Extrem: Other: bilateral LE edema 3+ Psych: Affect: normal affect Objective Data Vital Signs Vital Signs: Vital Signs - 24 hr 06/20/24 10:00 06/20/24 12:00 06/20/24 12:00 Temperature Pulse Rate 75 77 Respiratory Rate Blood Pressure Pulse Oximetry Oxygen Delivery Room Air 06/20/24 12:00 06/20/24 14:00 06/20/24 16:00 Temperature 36.8 C 36.4 C Pulse Rate 75 71 70 Respiratory Rate 20 20 Blood Pressure 135/61 128/60 Pulse Oximetry 94 100 Oxygen Delivery 06/20/24 16:00 06/20/24 16:00 06/20/24 20:00 Temperature 36.6 C Pulse Rate 77 71 Respiratory Rate 16 Blood Pressure 119/56 L Pulse Oximetry 100 Oxygen Delivery Room Air 06/20/24 20:00 06/20/24 20:00 06/20/24 22:24 Temperature Pulse Rate 68 68 Respiratory Rate Blood Pressure Pulse Oximetry Oxygen Delivery Room Air 06/21/24 00:00 06/21/24 00:00 06/21/24 00:00 Temperature 36.4 C Pulse Rate 68 69 Respiratory Rate 16 Blood Pressure 107/65 Pulse Oximetry 100 Oxygen Delivery Room Air 06/21/24 01:58 06/21/24 04:00 06/21/24 04:00 Temperature Pulse Rate 68 67 Respiratory Rate Blood Pressure Pulse Oximetry Oxygen Delivery Room Air 06/21/24 04:00 06/21/24 05:55 06/21/24 08:00 Temperature 36.5 C 36.4 C L Pulse Rate 74 68 77 Respiratory Rate 18 16 Blood Pressure 113/57 L 113/52 L Pulse Oximetry 100 90 Oxygen Delivery Intake/Output Intake/Output: Intake & Output 06/18/24 06/19/24 06/20/24 06/21/24 23:59 23:59 23:59 23:59 Intake Total 709.1 890 1220 160 Output Total 2361 941 2956 150 [facility] -1090.9 -95 95 10 Meds/Results Medications: Active Medications Generic Name Dose Route Start Last Admin Trade Name Freq PRN Reason Stop Dose Admin Acetaminophen 1,000 mg 06/14/24 11:47 06/16/24 16:45 Acetaminophen 500 Mg Tablet PO 1,000 mg TID PRN Administration pain Albuterol/Ipratropium 3 ml 06/17/24 14:37 Ipratropium 0.5 Mg/Albuterol Sulfate 2.5 Mg Ampul.Neb 3 Ml INHALATION Q6HRT PRN shortness of breath Apixaban 5 mg 06/14/24 11:00 06/20/24 20:21 Apixaban 5 Mg Tablet PO 5 mg Q12HR MELISSA Administration Artificial Tears 1 drop 06/18/24 12:34 06/19/24 10:27 Artificial Tears Ophth Soln 15 Ml Bottle EACH EYE 1 drop QID PRN Administration Dry Eye(s) Atorvastatin Calcium 40 mg 06/14/24 11:00 06/20/24 08:57 Atorvastatin 40 Mg Tablet PO 40 mg DAILY MELISSA Administration Celecoxib 100 mg 06/14/24 11:00 06/20/24 20:21 Celecoxib 100 Mg Capsule PO 100 mg Q12HR MELISSA Administration Cyanocobalamin 500 mcg 06/14/24 11:00 06/20/24 08:56 Cyanocobalamin 500 Mcg Tablet PO 500 mcg QAM MELISSA Administration Cyanocobalamin 2,000 mcg 06/15/24 09:00 06/20/24 08:56 Cyanocobalamin 1,000 Mcg Tablet PO 2,000 mcg QAM MELISSA Administration Furosemide 20 mg 06/19/24 18:15 06/20/24 16:30 Furosemide Inj 40 Mg/4 Ml Vial IV PUSH 20 mg BID MELISSA Administration Piperacillin/Tazobactam/Dextrose 3.375 gm in 50 mls @ 100 mls/hr 06/13/24 06:00 06/21/24 05:40 Zosyn 3.375 Gm/Ns 50 Ml IVPB 100 mls/hr Q6HR MELISSA Administration Levothyroxine Sodium 25 mcg 06/14/24 06:30 06/21/24 05:46 Levothyroxine Sodium 25 Mcg Tablet PO 25 mcg DAILY@0630 MELISSA Administration Lidocaine 1 patch 06/15/24 09:00 06/20/24 08:57 Lidocaine 5% Patch TOPICAL 1 patch DAILY MELISSA Administration Metoprolol Succinate 100 mg 06/20/24 09:00 06/20/24 08:57 Metoprolol Succinate Ext Rel 100 Mg Tabcr PO 100 mg DAILY MELISSA Administration Ondansetron HCl 4 mg 06/14/24 10:55 06/14/24 14:28 Ondansetron Hcl Odt 4 Mg Tablet BY MOUTH 4 mg BID PRN Administration Nausea And Vomiting Pantoprazole Sodium 40 mg 06/14/24 10:55 06/20/24 08:57 Pantoprazole 40 Mg Tablet PO 40 mg QAM MELISSA Administration Tamsulosin HCl 0.4 mg 06/14/24 09:00 06/20/24 08:57 Tamsulosin Hcl 0.4 Mg Capsule PO 0.4 mg DAILY MELISSA Administration Radiology Results: ITS Impressions Head/Neck CTA 06/12/24 22:24 IMPRESSION: 1. Normal CTA head and neck. Percent stenosis per NASCET criteria is 0%. 2. Dominant left vertebral artery. Abdomen/Pelvis CT 06/12/24 22:45 IMPRESSION: 1. Cholecystitis with cholecystostomy tube outside the gallbladder. 2. Filling defect in the urinary bladder suggestive of a clot. Clinical correlation advised. 3. Increased compression of T12 suggestive of acute fracture. Chronic fracture in L2. Abdomen Ultrasound 06/16/24 16:39 IMPRESSION: 1. Poor visualization of what is likely the gallbladder and surrounding bowel and the planned ultrasound-guided percutaneous close ostomy tube placement was deferred with plan to attempt to placement in the morning with CT guidance and with conscious sedation. Catheter Placement CT 06/17/24 12:53 IMPRESSION: 1. Successful CT-guided percutaneous cholecystostomy tube placement. 2. 20 mL fluid was sent for aerobic and anaerobic cultures. 3. The catheter will be managed by Dr. Chester. A catheter cholangiogram may be performed not less than 48 hours after tube placement if clinically indicated to assess cystic duct patency. If cholecystectomy is not eventually performed and the infectious episode has resolved, the tube may be removed over a guidewire, preferably not less than 3 weeks after placement to allow time for a mature catheter tract to form to prevent bile leakage and peritonitis. Chest X-Ray 06/18/24 11:20 IMPRESSION: Bilateral basilar atelectasis versus pneumonia with bilateral pleural effusion. Labs Labs: Laboratory Results - last 24 hr 06/21/24 05:11 WBC 3.7 L RBC 2.97 L Hgb 8.8 L Hct 29.0 L MCV 97.6 MCH 29.6 MCHC 30.3 L RDW 15.3 H Plt Count 213 MPV 10.0 Immature Gran % (Auto) 0.3 Neut % (Auto) 36.6 L Lymph % (Auto) 42.8 [place] % (Auto) 13.0 H Eos % (Auto) 7.0 H Baso % (Auto) 0.3 Lymph # (Auto) 1.58 [place] # (Auto) 0.5 Eos # (Auto) 0.3 Baso # (Auto) 0.0 Abs Immat Gran (auto) 0.01 Absolute Neuts (auto) 1.4 Absolute Nucleated RBC 0.000 Nucleated RBC % 0.0 Sodium 140 Potassium 3.4 Chloride 98 Carbon Dioxide 38 H Anion Gap 4 BUN 4 L Creatinine 0.62 L Estim Creat Clear Calc 55 Estimated GFR > 60 Glucose 91 Calcium 7.9 L Magnesium 1.8 Total Bilirubin 0.5 AST 20 ALT 9 Alkaline Phosphatase 86 Total Protein 5.0 L Albumin 2.4 L Quality VTE Prophylaxis VTE prophylaxis: pharmacologic ordered
[2024-06-21] MEDS: LIDOCAINE 5% PATCH 1 PATCH TOPICAL (09:40)
[2024-06-21] MEDS: CELECOXIB 100 MG CAPSULE PO ×2 (09:40→20:42)
[2024-06-21] MEDS: METOPROLOL SUCCINATE EXT REL 100 MG TABCR PO (09:41)
[2024-06-21] MEDS: TAMSULOSIN HCL 0.4 MG CAPSULE PO (09:41)
[2024-06-21] MEDS: APIXABAN 5 MG TABLET PO ×2 (09:41→20:42)
[2024-06-21] MEDS: PANTOPRAZOLE 40 MG TABLET PO (09:41)
[2024-06-21] MEDS: ATORVASTATIN 40 MG TABLET PO (09:41)
[2024-06-21] MEDS: CYANOCOBALAMIN 500 MCG TABLET PO (09:41)
[2024-06-21] MEDS: FUROSEMIDE INJ 40 MG/4 ML VIAL 20 MG IV PUSH ×2 (09:41→17:35)
[2024-06-21] MEDS: CYANOCOBALAMIN 1,000 MCG TABLET 2000 MCG PO (09:41)
--- NOTE | 2024-06-21 18:40 | PC.NURSE ---
This patient, Maude Milton, was transferred to [facility] on 06/21/24 at 1842. Personal belongings sent with patient. Report given to Joel . Appropriate documentation sent with patient.
[2024-06-22] MEDS: PIPERACILLN/TAZ 3.375GM/NS50ML 3.375 GM/50 ML BAG IVPB ×3 (00:32→13:13)
[2024-06-22 05:26] VITALS: BP 136/68; PULSE 78; RESP 16; TEMP 36.2; O2SAT 93
[2024-06-22] MEDS: LEVOTHYROXINE SODIUM 25 MCG TABLET PO (05:48)
[2024-06-22 08:57] VITALS: PULSE 78
[2024-06-22] MEDS: METOPROLOL SUCCINATE EXT REL 100 MG TABCR PO (08:57)
[2024-06-22] MEDS: TAMSULOSIN HCL 0.4 MG CAPSULE PO (08:58)
[2024-06-22] MEDS: CELECOXIB 100 MG CAPSULE PO ×2 (08:58→20:37)
[2024-06-22] MEDS: CYANOCOBALAMIN 500 MCG TABLET PO (08:58)
[2024-06-22] MEDS: FUROSEMIDE INJ 40 MG/4 ML VIAL 20 MG IV PUSH (08:58)
[2024-06-22] MEDS: APIXABAN 5 MG TABLET PO ×2 (08:58→20:37)
[2024-06-22] MEDS: CYANOCOBALAMIN 1,000 MCG TABLET 2000 MCG PO (08:58)
[2024-06-22] MEDS: PANTOPRAZOLE 40 MG TABLET PO (08:59)
[2024-06-22] MEDS: ATORVASTATIN 40 MG TABLET PO (08:59)
[2024-06-22] MEDS: LIDOCAINE 5% PATCH 1 PATCH TOPICAL (08:59)
--- NOTE | 2024-06-22 15:02 | P.DS_ITS ---
DS: Admitting Diagnosis Discharge Date 06/22/2024 Admitting Diagnosis Atrial fibrillation DS: Discharge Diagnosis Discharge Diagnosis (1) Atrial fibrillation: Qualifiers: Atrial fibrillation type: unspecified Qualified Code(s): I48.91 - Unspecified atrial fibrillation Code(s): I48.91 - Unspecified atrial fibrillation Status: Acute Assessment and Plan: Heart rate is controlled, continue current treatment. Plan All the information from DC summary from 06/20/2024 Acute hypoxemic respiratory failure from CHF exacerbation CXR showed bilateral pleural effusion ECHO from last month showed normal EF. started on Lasix 20mg bid monitor Malfunctioning Cholecystotomy tube replaced surgery on board Recent Acute cholecystitis on Abx and Cholecystostomy continue above care Hypokalemia and Hypomagnesemia, resolving Anemia Patient is iron replete and B12/folate wnl Hb 8.1 monitor Monitor H and H Afib s/p Cardizem infusion now on Metoprolol 100mg bid, continue Eliquis HTN Titrate home meds with clinical course CAD continue home meds DVT prophylaxis on Eliquis awaiting SNF placement DS: Summary Hospital Course Hospital Course: 84-year-old female with CAD, HTN and pre-DM,percutaneous cholecystectomy drain presenting for altered mental status. She was her base self earlier yesterday but later, around 4:00 p.m. the staff noticed that she was more confused. They reported garbled speech. no one sided weakness. The patient was sent to the emergency department for evaluation of a stroke. Of note, pt was seen per general surgery, DR Mckenzie on 05/26 for recent hospitalization 05/02-05/11 for sepsis. She was s/p cholecystostomy tube placement 05/06/2024. Bile was sent for aerobic anaerobic culture while she was hospitalized which is growing g variable bacilli. She was on IV Zosyn which has been switched to oral Augmentin- she completed the course of antibiotics. She was also in RVR- card drip. Metoprolol was switched to long acting. in ED: CT abd/pelv: Perc drain has been dislodged and her gallbladder is swollen and edematous. liver enzymes- stable. VS stable. wbc 9, hg/hct- 9.4/30.7. She has been started on IV zosyn. NO IR available over the weekend, ER discussed with Dr. Chester who is editor publications and agreed to consult on the case and figure out a plan of action in the morning. CT incidentally found a T12 compression fracture. Patient has malfunctioning cholecystostomy tube replaced and drainage resumed. however she went into Afib with RVR and CHF exacerbation. Eventually rated controlled with Cardizem 120mg and yesterday was changed over to 100mg Metoprolol, continued on Eliquis. cardiology was consulted and involved in patient's care. HR in kierra 70s. ECHO showed normal EF, she was Lasix 40mg IV and discharged on 40mg po bid and patient will continue follow up with cardiology. Patient will continue follow up with PCP in 3-5 days F/u with Gen Surgery and cardiology as instructed Status at Discharge Cognitive/behavioral status at discharge: Stable Time Spent with Patient Time attestation: Total time spent providing and/or coordinating discharge services:45 minutes Exam Narrative: drain in place Const: General: comfortable Resp: Effort & Inspection: normal respiratory effort Auscultation: clear to auscultation bilaterally Cardio: Rate: regular rate Rhythm: regular rhythm GI: Auscultation: normal bowel sounds Skin: General skin exam: normal color Neuro: Speech: normal speech Motor exam (neuro): Motor abnormalites present Other: pt is oriented to self and intermittently to place. Extrem: Other: bilateral LE edema 3+ Psych: Affect: normal affect DS: Data Data Completed and Pending Labs on day of discharge: Preliminary micro results at discharge 06/17/24 10:35 Anaerobic Culture - Preliminary Gallbladder Discharge Plan Discharge Attending physician on discharge: Nae Morel Consulting providers: Caio Chester; Leigh Ann Leon Discharging Clinician: Nae Morel Anticipated Discharge Date/Time: 06/17/24 14:04 Patient Disposition: Home Health Service Activity: as tolerated Diet: heart healthy Discharge Instructions: Per Care Coordination, patient to discharge with [facility] ) for PT/ OT and nursing home services. Agency will call to arrange initial visit. * Empty and record output from the cholecystostomy tube daily. Bring this into the surgeon's appointment. * Call to schedule an appointment with either Dr. Chester or Dr. Mckenzie in 2 weeks in our office. [phone] * Change the gauze dressing over the cholecystostomy tube every 3-4 days or if soiled. * You may change the gauze dressing where the old tube was located every day. You may change the gauze more frequently if soiled. By next week, if there is no longer any drainage, then you can leave this area open to air. Patient Instructions: Antibiotic Form, Apixaban (By mouth) Patient Language: Bengali Stand Alone Forms: General Discharge Information Follow-up/Referrals: Caio Chester MD [Physician] - 2 Weeks Discharge Medications: New metoprolol succinate [Toprol XL] 100 mg Tablet Extended Release 24 Hr 100 mg PO DAILY 30 Days Qty: 30 1RF furosemide [Lasix] 40 mg tablet 40 mg PO BID 30 Days Qty: 60 0RF Continued levothyroxine 25 mcg tablet 25 mcg PO DAILY Qty: 90 1RF (DME) egg crate mattress for chair See Rx Instructions .Route .MEDSUPPLY Qty: 1 0RF Rx Instructions: As directed (DME) duoderm dressing See Rx Instructions .Route .MEDSUPPLY Qty: 1 0RF Rx Instructions: As directed cyanocobalamin (vitamin B-12) 2,500 mcg Tablet 2,500 mcg PO QAM Qty: 90 0RF nitroglycerin 0.4 mg tablet, sublingual 0.4 mg sublingual Q5M PRN (Reason: chest pain) ipratropium-albuterol 0.5 mg-3 mg(2.5 mg base)/3 mL Solution For Nebulization 3 ml inhalation Q6HRT Qty: 30 0RF acetaminophen 500 mg capsule 1,000 mg PO TID PRN (Reason: pain) amitriptyline 10 mg tablet 20 mg PO .HS potassium chloride 20 mEq tablet,ER particles/crystals 40 meq PO DAILY Qty: 30 0RF tamsulosin 0.4 mg capsule 0.4 mg PO DAILY Qty: 30 0RF lidocaine 5 % adhesive patch,medicated 1 patch topical DAILY Qty: 30 0RF Rx Instructions: leave on most painful area for up to 12 hrs celecoxib [Celebrex] 100 mg capsule 100 mg PO BID Qty: 60 0RF Patient Comments: Two times daily for five days starting 06/08/2024. amoxicillin-pot clavulanate 875-125 mg tablet 1 tablet PO Q12H Qty: 10 0RF Patient Comments: Two times daily for fifteen days starting 06/11/2024. Eliquis 5 mg Tablet 5 mg PO Q12HR Qty: 60 0RF atorvastatin 40 mg tablet 40 mg PO DAILY Qty: 90 3RF omeprazole 20 mg capsule,delayed release(DR/EC) 40 mg PO DAILY Qty: 180 2RF Rx Instructions: before breakfast ondansetron HCl 4 mg tablet See Rx Instructions .ROUTE .COMPLEX Qty: 40 0RF Dose Instruction: TAKE 1 TABLET BY MOUTH TWICE DAILY NEEDED FOR NAUSEA Rx Instructions: TAKE 1 TABLET BY MOUTH TWICE DAILY NEEDED FOR NAUSEA Discontinued metoprolol succinate 200 mg tablet extended release 24 hr 200 mg PO DAILY Qty: 30 0RF Date of admission: 06/13/24 03:27 Primary Care Provider: Milagros Haq Admitting Provider: Kathrine Gorman Attending physician on admission: Kathrine Gorman Condition: Stable Quality VTE Prophylaxis VTE prophylaxis: pharmacologic ordered
--- NOTE | 2024-06-22 19:17 | PC.NURSE ---
Pt had discharge in from time in IMU. MD today agreeable to discharge. Discharge meds had been done by previous MD. D/C meds included meds to be continued that pt did not have at home. Pt dtr told by pharmacy that alanna $600+. Obtained coupon but still having insurance difficulty. D/C postponed due to late timing, pharmacy discrepancies, and inability to obtain medications. Will pursue D/C in AM with assistance of provider, care coordination, daughter and RN. Pt IV's had already been removed. switched IV abx over to PO as ordered for home.
[2024-06-22 20:00] VITALS: PULSE 78; RESP 16; O2SAT 93
[2024-06-22] MEDS: AMOXICILLIN/CLAVULANATE K 875-125 MG TAB 1 TABLET PO (20:37)
[2024-06-22 21:58] VITALS: BP 143/69; PULSE 75; RESP 20; TEMP 36.6; O2SAT 97
[2024-06-23 05:48] VITALS: BP 148/70; PULSE 76; RESP 15; TEMP 36.5; O2SAT 94
[2024-06-23] MEDS: LEVOTHYROXINE SODIUM 25 MCG TABLET PO (06:29)
[2024-06-23 10:02] VITALS: PULSE 76
[2024-06-23] MEDS: TAMSULOSIN HCL 0.4 MG CAPSULE PO (10:02)
[2024-06-23] MEDS: ATORVASTATIN 40 MG TABLET PO (10:02)
[2024-06-23] MEDS: CYANOCOBALAMIN 1,000 MCG TABLET 2000 MCG PO (10:02)
[2024-06-23] MEDS: METOPROLOL SUCCINATE EXT REL 100 MG TABCR PO (10:02)
[2024-06-23] MEDS: PANTOPRAZOLE 40 MG TABLET PO (10:02)
[2024-06-23] MEDS: CELECOXIB 100 MG CAPSULE PO (10:02)
[2024-06-23] MEDS: CYANOCOBALAMIN 500 MCG TABLET PO (10:03)
[2024-06-23] MEDS: FUROSEMIDE 40 MG TABLET PO (10:03)
[2024-06-23] MEDS: APIXABAN 5 MG TABLET PO (10:03)
[2024-06-23] MEDS: AMOXICILLIN/CLAVULANATE K 875-125 MG TAB 1 TABLET PO (10:03)
== END 2024-06-23 12:08 | disposition home health service (06) | DRG 394 ==
LOC: ANHED 06-13 02:36 → ANHIMU 06-15 13:27 → ANH3MEDSUR 06-24 08:51 → ANHICU 06-24 08:51 → ANHIMU 06-24 08:51
PROVIDERS: Family Medicine; Internal Medicine; Nurse Practitioner; Radiology Diagnostic Radiology; Surgery; Admitting Provider Internal Medicine; Emergency Provider Emergency Medicine; PCP Family Medicine; Visit Provider General Practice
DX: K91.89 Other postprocedural complications and disorders of digestive system (principal); K81.0 Acute cholecystitis; K81.1 Chronic cholecystitis; I48.91 Unspecified atrial fibrillation; I11.0 Hypertensive heart disease with heart failure; I25.10 Atherosclerotic heart disease of native coronary artery without angina pectoris; I50.9 Heart failure, unspecified; K21.9 Gastro-esophageal reflux disease without esophagitis; E78.2 Mixed hyperlipidemia; M19.90 Unspecified osteoarthritis, unspecified site; E03.9 Hypothyroidism, unspecified; R73.03 Prediabetes; M54.40 Lumbago with sciatica, unspecified side; G89.29 Other chronic pain; Z90.49 Acquired absence of other specified parts of digestive tract; Z90.710 Acquired absence of both cervix and uterus; Z66 Do not resuscitate
CPT/HCPCS: 36415; 36600; 70496; 70498; 71045; 74177; 75989; 76705; 80048; 80053; 81003; 82607; 82728; 82746; 82805; 82948; 83540; 83550; 83605; 83690; 83735; 84100; 84132; 85018; 85025; 85027; 85610; 85730; 87040; 87070; 87075; 87186; 87205; 87637; 87641; 93005; 94640; 96365; 96367; 96375; 97110; 97116; 97161; 97166; 97530; 97535; 99285; A9270; C1729; J1650; J1940; J2405; J2543; J3475; J3480; J7030; J7040; J7120; P9047; Q9967

== ENCOUNTER 2024-07-07 11:28 | Outpatient (CLI) | payer MEDICARE, SELFPAY ==
[2024-07-07 12:14] LABS: Basophils Percent Auto 0.3 % (0.2-1.2); Eosinophils Absolute Auto 0.2 K/mm3 (0-0.3); Eosinophils Percent Auto 1.8 % (0-4.4); Hematocrit 35.5 % (37.0-47.0); Hemoglobin 10.8 g/dL (12.0-15.0); Immature Granulocyte Absolute 0.03 K/mm3 (0.00-0.031); Immature Granulocyte Percent A 0.3 % (0-0.5); Lymphocytes Absolute Auto 1.71 K/mm3 (0.9-3.2); Lymphocytes Percent Auto 19.4 % (18.3-44.2); Mean Corpuscular HGB Conc 30.4 g/dl (32-36); Mean Corpuscular Hemoglobin 28.9 pg (26-34); Mean Corpuscular Volume 94.9 fl (80-100); Mean Platelet Volume 10.5 fl (7.4-10.4); Monocytes Absolute Auto 0.9 K/mm3 (0.1-0.6); Neutrophils Percent Auto 68.2 % (45.5-73.1); Platelet Count Result 211 k/mm3 (150-375); Red Blood Count 3.74 M/mm3 (4.2-5.4); Red Cell Distribution Width 15.2 % (11.5-14.5); White Blood Count 8.8 K/mm3 (4.5-10.0)
[2024-07-07 12:29] LABS: Alanine Aminotransferase 12 U/L (6-35); Albumin Level 3.3 g/dL (3.5-5.1); Alkaline Phosphatase 109 U/L (38-126); Anion Gap 7 mmol/L (4-12); Aspartate Amino Transferase 18 U/L (14-36); Bilirubin,Total 0.5 mg/dL (0.2-1.3); Blood Urea Nitrogen 18 mg/dL (7-17); Calcium 8.5 mg/dL (8.4-10.2); Carbon Dioxide 31 mmol/L (22-30); Chloride 98 mmol/L (98-107); Estimated Glomerular Filt Rate > 60; Glucose 120 mg/dL (65-110); Potassium 4.4 mmol/L (3.4-5.0); Sodium 136 mmol/L (137-145)
--- OUTSIDE RECORDS SUMMARY | 2024-07-07 13:05 | XMS_ITS | Continuity of Care Document ---
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 [address] [facility], [place], [address], . [facility], [address], [place], [place], [address] , tel: [phone] [facility] PERIPHERAL VERTIGO NOSDIZZINESS AND GIDDINESS 3 Conversion Doctor. [address] [facility], [place], [address], [place]. [facility], [address], [place], [place], [address] , tel: [phone] [facility] DIFFUS CYSTIC MASTOPATHYCHRONIC BRONCHITIS NOS 3 Matt Bonilla. [address] [facility], [address], [place], [place], [address]. tel: [phone] [facility], [address], [place], [place], [address] , tel: [phone] [facility] COUGHMIXED HYPERLIPIDEMIA 3 Matt Bonilla. [address] [facility], [address], [place], [address]. tel: [phone] [facility], [address], [place], [place], [address] , tel: [phone] [facility] CHRONIC SINUSITIS NOS 3 Matt Bonilla. [address] [facility], [address], [place], [address]. tel: [phone] [facility], [address], [place], [place], [address] , [place] tel: [phone] [facility] JOINT PAIN-UNSPEC 2 Matt Bonilla. [address] [facility], [address], [place], [place], [address]. tel:[phone] [facility], [address], [place], [place], [address] , [place] tel: [phone] [facility] MASTODYNIA Apr-2 9-200 2 Matt Bonilla. [address] [facility], [address], [place], [place], [address]. tel: [phone] [facility], [address], [place], [place], [address] , [place] tel: [phone] [facility] OSTEOPOROSIS NOS Mar- 1-200 2 Matt Irene. [address] [facility], [address], [place], [place], [address]. tel: [phone] [facility], [address], [place], [place], [address] , [place] tel: [phone] [facility] ESOPHAGEAL REFLUX Sep- 0-200 1 Matt Bonilla. [address] [facility], [address], [place], [place], [address]. tel: [phone] [facility], [address], [place], [place], [address] , [place] tel: [phone] [facility] MYALGIA AND MYOSITIS NOSSCREEN MAL NEOP-CERVIX Sep- 7-200 1 Matt Bonilla. [address] [facility], [address], [place], [place], [address]. tel: [phone] [facility], [address], [place], [place], [address] , [place] tel: [phone] [facility] NONSPECIF SKIN ERUPT NEC July- 0-200 1 Matt Bonilla. [address] [facility], [address], [place], [place], [address]. tel: [phone] [facility], [address], [place], [place], [address] , [place] tel:[phone] [facility] ABN PAP SMEAR-OTH SITE Jose-2 2-200 0 Matt Bonilla. [address] [facility], [address], [place], [place], [address]. tel:[phone] [facility], [address], [place], [place], [address] , tel: [phone] [facility] BACKACHE NOSMENOPAUSAL DISORDER NOS 0-200 0 Matt Bonilla. [address] [facility], [address], [place], [place], [address]. tel:[phone] [facility], [address], [place], [place], [address] , tel: [phone] [facility] ABNORMAL WEIGHT GAINROUTINE MEDICAL EXAMALLERGY, UNSPECIFIED 3-200 0 Matt Bonilla. [address] [facility], [address], [place], [place], [address]. tel:[phone] Family History Family Member Type Diagnosis Age [...]
--- OUTSIDE RECORDS SUMMARY | 2024-07-07 13:05 | XMS_ITS | Clinical Summary ---
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 Name Role Phone Milagros Haq MD Primary Care Provider [phone] Allergies Active Allergy Reactions Criticality Noted Date [...] 9 Active nitroglycerin (NITROMIST) 400 mcg/spray Aerosol, [place] place 1 spray by translingual route onto [...] MD (General) Referring Provider: Milagros Haq MD [address] [place] [address] Other: Problem Noted Date Diagnosed Date Inversion [...] 2013 INFLUENZA VACCINE (#1) [address] [place] [address] MEDICARE [employer] [facility] [id number] [place] [address] Care Teams Laminate Floor Installer Relationship Specialty Start Date End Date Milagros Haq MD [address] [place] [id number] PCP - General Family Practice 07/18/12
--- OUTSIDE RECORDS SUMMARY | 2024-07-07 13:05 | XMS_ITS ---
Author Name May Carrillo Address [address] [place] [address] Phone [phone] [facility] Address [address] [place] [address] Phone [phone] Care Team Providers Care Party Plan Sales Consultant Name Role Phone May Carrillo Unavailable AaliyahDiana fagan Unavailable [phone] Functional Status No Results Mental Status No Results Allergies and Intolerances Name Onset Date Reaction Severity hydrocodone (Allergy) SatJan 10 19:57:00 EDT 20 23 levofloxacin (Allergy) SatJan 10 19:57:00 EDT 2 023 alendronate sodium (Allergy) SatJan 10 19:56:00 EDT 2022 Encounters Program Name Primary Diagnosis Admission Date/Time Dis charge Date/Time [facility] SatMay 11 09:20:00 EST 2024Jun 12 14:30:00 EDT 2024 Immunizations Name Dates Status influenza, trivalent, adjuvanted SatMay 19 01:0 0:00 EST 2024 Completed Medications Medication Directions Start Date End Date amoxicillin 875 mg-potassium clavulanate 125 mg tablet 875-125 mg TABLET Oral 2 Times Daily for 15 Days Indication: cholecystitis SatJun 11 13:00:00 EDT 2024Jun 12 01:00:00 EDT 2024 potassium chloride ER 20 mEq tablet,extended release 40 mEq TABLET, EXTENDED RELEASE Oral 1 Time Daily for 1 Day Indication: hypokalemia SatJun 09 18:00:00 EDT 2024Jun 10 17:59:00 EDT 2024 potassium chloride ER 20 mEq tablet,extended release 40 mEq TABLET, EXTENDED RELEASE Oral 1 Time Daily Indication: hypokalemia SatJun 09 18:00:00 EDT 2024Jun 12 01:00:00 EDT 2024 celecoxib 100 mg capsule 1 CAPSULE CAPSU LE Oral 2 Times Daily Indication: lower back pain SatJun 08 11:40:00 EDT 2024Jun 08 15:43:00 EDT 2024 celecoxib 100 mg capsule 1 CAPSULE CAPSU LE Oral 2 Times Daily for 5 Days Indication: lower back pain SatJun 08 15:42:00 EDT 2024Jun 12 01:00:00 EDT 2024 celecoxib 100 mg capsule 1 CAPSULE Oral 2 Times Daily for 5 Days Indication: pain SatJun 02 21:00:00 EST 2024Jun 07 20:59:00 EDT 2024 celecoxib 100 mg capsule 1 CAPSULE Oral 2 Times Daily for 5 Days Indication: pain SatJun 02 21:00:00 EST 2024Jun 05 14:47:00 EST 2024 tamsulosin 0.4 mg capsule 1 capsule CAPS ULE Oral 1 Time Daily Indication: urinary retention SatJun 02 07:00:00 EST 2024Jun 12 01:00:00 EDT 2024 celecoxib 100 mg capsule 1 capsule CAPSU LE Oral PRN 2 Times Daily Indication: pain SatJun 01 12:26:00 EST 2024Jun 01 13:51:00 EST 2024 meloxicam 7.5 mg tablet 1 tablet TABLET Oral PRN (Max 1 Doses) Indication: pain SatJun 01 13:50:00 EST 2024Jun 01 18:02:00 EST 2024 amoxicillin 875 mg-potassium clavulanate 125 mg tablet 1 tablet TABLET Oral Every 12 Hours for 6 Days Indication: cholecystitis SatJun 01 21:00:00 EST 2024Jun 01 14:05:00 EST 2024 amoxicillin 875 mg-potassium clavulanate 125 mg tablet 1 tablet TABLET Oral 1 Time Daily for 1 Day Indication: cholecystitis SatJun 01 14:00:00 EST 2024Jun 01 14:06:00 EST 2024 amoxicillin 875 mg-potassium clavulanate 125 mg tablet 1 tablet TABLET Oral Every 12 Hours for 6 Days Indication: cholecystitis SatJun 02 07:00:00 EST 2024Jun 08 06:59:00 EDT 2024 amoxicillin 875 mg-potassium clavulanate 125 mg tablet 1 tablet TABLET Oral 2 Times Daily for 1 Day Indication: cholecystitis SatJun 01 14:05:00 EST 2024Jun 02 14:04:00 EST 2024 cephALEXin 500 mg capsule 500 mg CAPSULE Oral Every 12 Hours for 5 Days Indication: UTI SatMay 31 03:30:00 EST 2024May 31 09:27:00 EST 2024 amitriptyline 10 mg tablet 20mg TABLET O ral 1 Time Daily Indication: Insomnia SatMay 31 09:27:00 2024 Fri May 14 01:00:00 EDT 2024 amoxicillin 875 mg-potassium clavulanate 125 mg tablet 1 tablet TABLET Oral Every 12 Hours for 7 Days Indication: prophylaxis SatMay 31 07:00:00 EST 2024May 31 15:03:00 EST 2024 sodium chloride 0.9 % intravenous solution 1L INTRAVENOUS SOLUTION Intravenous 1 Time Daily for 1 Day Indication: 75cc/hr SatMay 31 19:00:00 2024Jun 01 18:59:00 EST 2024 furosemide 40 mg tablet 1 tablet TABLET Oral 1 Time Daily for 3 Days Indication: edema SatMay 30 07:00:00 EST 2024May 31 09:27:00 EST 2024 potassium chloride ER 20 mEq tablet,extended release 1 tablet TABLET, EXTENDED RELEASE Oral 1 Time Daily for 3 Days Indication: hypokalemia SatMay 30 07:00:00 EST 2024May 31 09:27:00 EST 2024 traMADoL 50 mg tablet 50 mg TABLET Oral PRN Every 6 Hours Indication: pain SatMay 28 13:00:00 EST 2024 [facility] May 30 01:04:00 EST 2024 calcitonin (salmon) 200 unit/actuation nasal spray 2 sprays AEROSOL, SPRAY WITH PUMP (ML) Intranasal - Both Nostrils 3 Times Daily for 14 Days Indication: allergies SatMay 28 13:00:00 EST 2024May 28 15:40:00 EST 2024 calcitonin (salmon) 200 unit/actuation nasal spray 1 spray AEROSOL, SPRAY WITH PUMP (ML) Intranasal 3 Times Daily for 14 Days Indication: osteoporosis spray in 1 nostril and rotate nostril used SatMay 28 15:38:00 EST 2024May 28 17:01:00 EST 2024 calcitonin (salmon) 200 unit/actuation nasal spray 1 spray AEROSOL, SPRAY WITH PUMP (ML) Intranasal 1 Time Daily for 14 Days Indication: osteoporosis spray in 1 nostril and rotate nostril used SatMay 28 17:00:00 EST 2024Jun 11 16:59:00 EDT 2024 potassium chloride ER 20 mEq tablet,extended release(part/cryst) 2 tabs TABLET, EXT RELEASE, PARTICLES/CRYSTALS Oral 1 Time Daily for 1 Day Indication: hypokalemia SatMay 27 15:00:00 EST 2024May 28 14:59:00 EST 2024 ondansetron HCL 4 mg tablet 1 tablet TAB LET Oral PRN Every 6 Hours Indication: Nausea & Vomiting SatMay 27 15:00:00 EST 2024Jun 12 01:00:00 EDT 2024 cyclobenzaprine 10 mg tablet 1 tab TABLE T Oral 1 Time Daily Indication: Muscle spasms SatMay 28 07:00:00 EST 2024May 30 01:03:00 EST 2024 lidocaine 4 % topical patch 1-2 patches ADHESIVE PATCH, MEDICATED Topical 2 Times Daily Indication: pain Apply patch to back on am removed after 12hrs in HS SatMay 25 11:42:00 EST 2024Jun 12 01:00:00 EDT 2024 cyclobenzaprine 10 mg tablet 1 tab TABLE T Oral PRN Every 8 Hours Indication: Muscle spasms SatMay 25 11:44:00 EST 2024May 31 09:27:00 EST 2024 acetaminophen 500 mg tablet 2 tablets TA BLET Oral 3 Times Daily Indication: Pain SatMay 25 16:00:00 EST 2024Jun 12 01:00:00 EDT 2024 acetaminophen 325 mg tablet 650 mg TABLE T Oral PRN 1 Time Daily Indication: Pain or fever Do not exceed 3 grams in 24 hours SatMay 22 13:00:00 EST 2024Jun 12 01:00:00 EDT 2024 acetaminophen 325 mg tablet 650 mg TABLE T Oral 3 Times Daily Indication: Pain or fever Do not exceed 3 grams in 24 hours SatMay 22 09:00:00 EST 2024May 25 17:02:00 EST 2024 Fluad Triv (65y up)(P F) 45 mcg (15 mcg x 3)/0.5 mL IM syringe 0.5 ml SYRINGE (ML) Intramuscular 1 Time Daily for 1 Day Indication: vaccine SatMay 19 13:00:00 EST 2024May 20 12:59:00 EST 2024 lidocaine 4 % topical patch 1 patch ADHE SIVE PATCH, MEDICATED Topical PRN 1 Time Daily Indication: pain SatMay 19 13:00:00 EST 2024May 19 16:17:00 EST 2024 cyclobenzaprine 5 mg tablet 5 mg TABLET Oral PRN Every 8 Hours Indication: muscle spasms SatMay 19 13:00:00 2024 24 11:45:00 EST 2024 lidocaine 5 % topical patch 1 patch ADHE SIVE PATCH, MEDICATED Topical PRN Every 8 Hours Indication: pain SatMay 19 13:00:00 EST 2024Jun 12 01:00:00 EDT 2024 tamsulosin 0.4 mg capsule 0.4 mg CAPSULE Oral 1 Time Daily Indication: urination SatMay 12 13:00:00 2024May 19 10:36:00 EST 2024 Abreva 10 % topical cream 1 application CREAM (GRAM) Topical 1 Time Daily for 3 Days Indication: cold sore 1 application to lower lip sore QD for 3 days or until healed. Okay to leave at bedside and self apply. SatMay 12 13:00:00 2024May 15 12:59:00 EST 2024 amoxicillin 875 mg-potassium clavulanate 125 mg tablet 1 TABLET TABLET Oral 2 Times Daily for 15 Days Indication: Cholecystitis SatMay 11 16:00:00 2024May 26 15:59:00 EST 2024 ipratropium 0.5 mg-albuteroL 3 mg (2.5 mg base)/3 mL nebulization soln 1 vial AMPUL FOR NEBULIZATION (ML) Inhalation Every 6 Hours Indication: SOB/Wheezing SatMay 11 17:00:00 EST 2024May 11 18:25:00 EST 2024 Eliquis 5 mg tablet 1 tablet TABLET Oral 2 Times Daily Indication: A-fib SatMay 11 16:00:00 EST 2024Jun 12 01:00:00 EDT 2024 metoprolol succinate ER 200 mg tablet,extended release 24 hr 1 tablet TABLET, EXTENDED RELEASE 24 HR Oral 1 Time Daily Indication: A-fib SatMay 11 17:00:00 EST 2024Jun 12 01:00:00 EDT 2024 ranolazine ER 1,000 mg tablet,extended release,12 hr 1 tablet TABLET, EXTENDED RELEASE 12 HR Oral 2 Times Daily Indication: Angina SatMay 11 17:00:00 EST 2024May 31 09:27:00 EST 2024 cyanocobalamin (vitamin B-12 ) 2,500 mcg tablet 1 tablet TABLET Oral 1 Time Daily Indication: Supplement SatMay 11 16:00:00 EST 2024Jun 12 01:00:00 EDT 2024 levothyroxine 25 mcg tablet 1 tablet TAB LET Oral 1 Time Daily Indication: Hypothyroidism SatMay 11 16:00:00 EST 2024Jun 12 01:00:00 EDT 2024 atorvastatin 40 mg tablet 1 tablet TABLE T Oral 1 Time Daily Indication: HLD SatMay 11 16:00:00 EST 2024Jun 12 01:00:00 EDT 2024 omeprazole 20 mg capsule,delayed release 1 capsule CAPSULE,DELAYED RELEASE (ENTERIC COATED) Oral 1 Time Daily Indication: GERDBefore breakfast SatMay 11 17:00:00 EST 2024Jun 12 01:00:00 EDT 2024 ondansetron HCL 4 mg tablet 1 tablet TAB LET Oral PRN 2 Times Daily Indication: Nausea & Vomiting SatMay 11 16:00:00 EST 2024May 27 15:14:00 EST 2024 amitriptyline 10 mg tablet 30mg TABLET O ral 1 Time Daily Indication: Insomnia SatMay 11 18:00:00 EST 2024May 31 09:27:00 EST 2024 nitroglycerin 0.4 mg sublingual tablet 1 tablet TABLET, SUBLINGUAL Sublingual PRN (Max 3 Doses) Indication: Chest [place] 5 minutes x 3 doses then call 911 SatMay 11 17:00:00 EST 2024Jun 12 01:00:00 EDT 2024 ipratropium 0.5 mg-albuteroL 3 mg (2.5 mg base)/3 mL nebulization soln 1 vial AMPUL FOR NEBULIZATION (ML) Inhalation PRN Every 6 Hours Indication: SOB/Wheezing SatMay 11 18:25:00 EST 2024Jun 12 01:00:00 EDT 2024 acetaminophen 325 mg tablet 650 mg TABLE T Oral PRN Every 4 Hours Indication: Pain or fever Do not exceed 3 grams in 24 hours SatMay 11 22:30:00 EST 2024May 22 19:11:00 EST 2024 traMADoL 50 mg tablet 1 tab TABLET Oral PRN Every 6 Hours Indication: pain Mon Nov 06 10:52:00 EST 2022Feb 06 01:00:00 EST 2022 Lidocaine Pain Relief 4 % topical patch 1 ADHESIVE PATCH, MEDICATED Topical PRN Every 12 Hours Indication: pain to lower back SatFeb 04 10:52:00 EST 2022Feb 06:00:00 EST 2022 acetaminophen 325 mg tablet 2 tabs TABLE T Oral PRN Every 6 Hours Indication: pain SatJan 11 14:11:00 2022Feb 06 01:00:00 EST 2022 isosorbide mononitrate ER 60 mg tablet,extended release 24 hr 1 TAB TABLET, EXTENDED RELEASE 24 HR Oral 1 Time Daily Indication: Chest pain SatJan 10 20:00:00 2022Feb 06:00:00 EST 2022 Xarelto 10 mg tablet 1 TAB TABLET Oral 1 Time Daily Indication: Blood thinner SatJan 10 20:00:00 2022Feb 06 01:00:00 EST 2022 cyanocobalamin (vitamin B-12 ) 2,500 mcg tablet 2500 MCG TABLET Oral 1 Time Daily Indication: SUPPLEMENT SatJan 10 20:00:00 T 2022Feb 06 01:00:00 EST 2022 ranolazine ER 1,000 mg tablet,extended release,12 hr 1000 MG TABLET, EXTENDED RELEASE 12 HR Oral Every 12 Hours Indication: Angina SatJan 11 07:00:00 2022Feb 06:00: EST 2022 omeprazole 20 mg capsule,delayed release 20 MG CAPSULE,DELAYED RELEASE (ENTERIC COATED) Oral 1 Time Daily Indication: GERD. Take daily before breakfast. Rosa M Jan 10 20:00:00 2022Feb 06:00:00 EST 2022 atorvastatin 40 mg tablet 40 MG TABLET O ral 1 Time Daily Indication: HYPERLIPIDEMIA SatJan 10 20:00:00 2022Feb 06 01:00:00 EST 2022 amitriptyline 10 mg tablet 30 MG TABLET Oral 1 Time Daily Indication: DEPRESSION3 TABS=30MG SatJan 11 21:00:00 T 2022Feb 06:00:00 EST 2022 hydroCHLOROthiazide 25 mg tablet 25 MG TABLET Oral 1 Time Daily Indication: DIURETIC SatJan 10 20:00:00 2022Feb 06:00:00 EST 2022 metoprolol succinate ER 25 m g tablet,extended release 24 hr 25 MG TABLET, EXTENDED RELEASE 24 HR Oral 1 Time Daily Indication: HTN SatJan 10 20:00:00 EDT 2022Feb 06 01:00:00 EST 2022 levothyroxine 25 mcg tablet 25 MCG TABLE T Oral 1 Time Daily Indication: Hypothyroidism SatJan 10 20:00:00 EDT 2022Feb 06 01:00:00 EST 2022 losartan 100 mg tablet 100 MG TABLET Ora l 1 Time Daily Indication: HTN SatJan 10 20:00:00 EDT 2022Feb 06 01:00:00 EST 2022 TubersoL 5 tub. unit/0.1 mL intradermal injection solution 0.1 ml VIAL (ML) Intradermal 1 Time Weekly for 2 Weeks Indication: TB test 1st injection on admission, then one week after. Read between 48 and 72 hours SatJan 11 01:00:00 EDT 2022Jan 25 00:59:00 EDT 2022 TubersoL 5 tub. unit/0.1 mL intradermal injection solution Read Results VIAL (ML) Other 1 Time Weekly for 2 Weeks Indication: TB test Read results between 48-72 hours after 1st and 2nd (1 week apart). If positive do chest x-ray. SatJan 11 01:00:00 EDT 2022Jan 25 00:59:00 EDT 2022 Problems Active Concerns * Retention of urine, unspecified* Code: * Start Date: SatJan 10 00:00:00 EDT 2022 * End Date: * Text: * Presence of urogenital implants* Code: * Start Date: SatJan 10 00:00:00 EDT 2022 * End Date: * Text: * Essential (primary) hypertension* Code: * Start Date: SatJan 10 00:00:00 EDT 2022 * End Date: * Text: * Gastro-esophageal reflux disease without esophagitis* Code: * Start Date: SatJan 10 00:00:00 EDT 2022 * End Date: * Text: * Hypothyroidism, unspecified* Code: * Start Date: SatJan 10 00:00:00 EDT 2022 * End Date: * Text: * Mixed hyperlipidemia* Code: * Start Date: SatJan 10 00:00:00 EDT 2022 * End Date: * Text: * Prediabetes* Code: * Start Date: SatJan 10:00:00 EDT 2022 * End Date: * Text: * Other seasonal allergic rhinitis* Code: * Start Date: SatJan 10 00:00:00 EDT 2022 * End Date: * Text: * Deficiency of other specified B group vitamins* Code: * Start Date: SatJan 10 00:00:00 EDT 2022 * End Date: * Text: * Vitamin D deficiency, unspecified* Code: * Start Date: SatJan 10 00:00:00 EDT 2022 * End Date: * Text: * Presence of right artificial hip joint* Code: * Start Date: SatJan 10 00:00:00 EDT 2022 * End Date: * Text: * Depression, unspecified* Code: * Start Date: SatJan 10 00:00:00 EDT 2022 * End Date: * Text: * group home (current) use of anticoagulants* Code: * Start Date: SatJan 10 00:00:00 EDT 2022 * End Date: * Text: * Personal history of (healed) traumatic fracture* Code: * Start Date: SatJan 10 00:00:00 EDT 2022 * End Date: * Text: * Presence of other specified devices* Code: * Start Date: SatMay 11 00:00:00 EST 2024 * End Date: * Text: * Personal history of COVID-19* Code: * Start Date: SatMay 11 00:00:00 EST 2024 * End Date: * Text: * Herpesviral vesicular dermatitis* Code: * Start Date: SatMay 11 00:00:00 EST 2024 * End Date: * Text: * Atherosclerotic heart disease of [place] coronary artery with other forms of angina pectoris* Code: * Start Date: SatMay 11 00:00:00 EST 2024 * End Date: * Text: * Dysphagia, unspecified* Code: * Start Date: SatMay 11 00:00:00 EST 2024 * End Date: * Text: * Unspecified atrial fibrillation* Code: * Start Date: SatMay 11 00:00:00 EST 2024 * End Date: * Text: * Calculus of gallbladder with acute cholecystitis without obstruction* Code: * Start Date: SatMay 11 00:00:00 EST 2024 * End Date: * Text: * Unspecified osteoarthritis, unspecified site* Code: * Start Date: SatMay 11 00:00:00 EST 2024 * End Date: * Text: * Migraine, unspecified, not intractable, without status migrainosus* Code: * Start Date: SatMay 11 00:00:00 2024 * End Date: * Text: * Spondylosis without myelopathy or radiculopathy, lumbar region* Code: * Start Date: SatMay 27 00:00:00 EST 2024 * End Date: * Text: * Stable burst fracture of second lumbar vertebra, sequela* Code: * Start Date: SatMay 27 00:00:00 EST 2024 * End Date: * Text: * Hypokalemia* Code: * Start Date: SatMay 27 00:00:00 EST 2024 * End Date: * Text: * Hyperlipidemia, unspecified* Code: * Start Date: SatMay 11 00:00:00 EST 2024 * End Date: * Text: * Other nonspecific abnormal finding of lung field* Code: * Start Date: SatJun 03 00:00:00 EST 2024 * End Date: * Text: * Bacteriuria* Code: * Start Date: SatMay 30 00:00:00 EST 2024 * End Date: * Text: * Localized edema* Code: * Start Date: SatJun 03 00:00:00 EST 2024 * End Date: * Text: * Pressure ulcer of unspecified buttock, unspecified stage* Code: * Start Date: SatApr 01 00:00:00 EST 2024 * End Date: * Text: * [id number] Maude receiving mechanically altered diet. (12)* Code: * Start Date: SatMay 19 00:00:00 EST 2024 * End Date: * Text: [id number] Maude receiving mechanically altered diet. (12) * LSS_Bowel Alterations - Maude has a bowel elimination problem as evidenced by: constipation ( ), diarrhea ( ), history of fecal impaction ( ), bowel incontinence (x ).* Code: * Start Date: SatMay 20 00:00:00 EST 2024 * End Date: * Text: LSS_Bowel Alterations - Maude has a bowel elimination problem as evidenced by: constipation (), diarrhea ( ), history of fecal impaction ( ), bowel incontinence (x ). * LSS_Foley Catheter - Maude has indwelling catheter.* Code: * Start Date: SatMay 20 00:00:00 EST 2024 * End Date: * Text: LSS_Foley Catheter - Maude has indwelling catheter. * LSS_Psychotropic Drug Use - Use of psychotropic drug use places Maude at risk for drug-related sideeffects.* Code: * Start Date: SatMay 20 00:00:00 EST 2024 * End Date: * Text: LSS_Psychotropic Drug Use - Use of psychotropic drug use places Maude at risk for drug-related side effects. * LSS_Falls - Maude is at risk for falls/injury as evidenced by: history of falls, cognitive status/behavior, vision status, continence, mobility, balance.* Code: * Start Date: SatMay 20 00:00:00 EST 2024 * End Date: * Text: LSS_Falls - Maude is at risk for falls/injury as evidenced by: history of falls, cognitive status/behavior, vision status, continence, mobility, balance. * LSS_Skin Integrity - Maude has alteration in skin integrity. Wound type:stage 1_, wound location:__right buttock_.* Code: * Start Date: SatMay 20 00::00 EST 2024 * End Date: * Text: LSS_Skin Integrity - Maude has alteration in skin integrity. Wound type:stage 1_, wound location:__right buttock_. * LSS_Social Services- Maude's wishes will be followed (Advanced Directive/Code Status).* Code: * Start Date: SatMay 22 00:00:00 EST 2024 * End Date: * Text: LSS_Social Services- Maude's wishes will be followed (Advanced Directive/Code Status). * LSS_Social Services- Maude will be involved in goal development to the best of his or her ability.* Code: * Start Date: SatMay 22 00:: EST 2024 * End Date: * Text: LSS_Social Services- Maude will be involved in goal development to the best of his or her ability. * LSS_Social Services- Maude has family/friends who are supportive.* Code: * Start Date: SatMay 22 00:00:00 EST 2024 * End Date: * Text: LSS_Social Services- Maude has family/friends who are supportive. * LSS_Social Services- Maude's mobility level is different than prior level due to current medical condition.* Code: * Start Date: SatMay 22 00:00:00 EST 2024 * End Date: * Text: [place]_Social Services- Maude's mobility level is different than prior level due to current medical condition. * LSS_Social Services- Maude will be involved in discharge planning.* Code: * Start Date: SatMay 22 00:00:00 EST 2024 * End Date: * Text: [place]_Social Services- Maude will be involved in discharge planning. Resolved Concerns * Problem Atherosclerotic heart disease of [place] coronary artery without angina pectoris* Code: * Start Date: SatJan 10 00:00:00 EDT 2022 * End Date: SatMay 13 00:00:00 EST 2024 * Problem Fall on same level, unspecified, subsequent encounter* Code: * Start Date: SatJan 10 00:00:00 EDT 2022 * End Date: SatMay 13 00:00:00 EST 2024 * Problem Fracture of unspecified part of neck of right femur, subsequent encounter for closed fracture with routine healing* Code: * Start Date: SatJan 10 00:00:00 EDT 2022 * End Date: SatMay 13 00:00:00 EST 2024 * Problem Acute cholecystitis* Code: * Start Date: SatMay 11 00:00:00 EST 2024 * End Date: SatMay 13 00:00:00 EST 2024 Vital Signs Vital Sign Measurement Date Body weight 176.40 [lb_av] SatJun 12 15:20 :07 EDT 2024 Systolic Blood Pressure 140.00 mm[Hg] SatJun 12 10:53:11 EDT 2024 Diastolic Blood Pressure 78.00 mm[Hg] SatJun 12 10:53:11 EDT 2024 Heart Rate 79.00 /min SatJun 12 10:53 :11 EDT 2024 Body temperature 97.30 [degF] SatJun 12 10:5 3:11 ED2024 Pulse Oximetry 96.00 % SatJun 12 10:53 :11 EDT 2024 Respiratory rate 20.00 /min SatJun 12 10:5 3:11 EDT 2024 Systolic Blood Pressure 140.00 mm[Hg] Sat 14 09:32:53 EDT 2024 Diastolic Blood Pressure 78.00 mm[Hg] Sat 14 09:32:53 EDT 2024 Heart Rate 79.00 /min Sat 14 09:32 :53 EDT 2024 Systolic Blood Pressure 140.00 mm[Hg] Sat 14 01:52:34 EDT 2024 Diastolic Blood Pressure 71.00 mm[Hg] Sat 14 01:52:34 EDT 2024 Heart Rate 85.00 /min Sat 14 01:52 :34 EDT 2024 Body temperature 98.10 [degF] Sat 14 01:5 2:34 EDT 2024 Pulse Oximetry 94.00 % Sat 14 01:52 :34 EDT 2024 Respiratory rate 18.00 /min Sat 14 01:5 2:34 EDT 2024 Body weight 171.20 [lb_av] Rosa Mmay 13 16:10 :36 EDT 2024 Systolic Blood Pressure 118.00 mm[Hg] Rosa Mmay 13 09:48:55 EDT 2024 Diastolic Blood Pressure 72.00 mm[Hg] Rosa Mmay 13 09:48:55 EDT 2024 Heart Rate 114.00 /min Rosa Mmay 13 09:48 :55 EDT 2024 Body temperature 97.90 [degF] [facility] May 13 09:4 8:55 EDT 2024 Pulse Oximetry 94.00 % [facility] May 13 09:48 :55 EDT 2024 Respiratory rate 16.00 /min [facility] May 13 09:4 8:55 EDT 2024 Systolic Blood Pressure 118.00 mm[Hg] Rosa Mmay 13 09:09:32 EDT 2024 Diastolic Blood Pressure 72.00 mm[Hg] Rosa Mmay 13 09:09:32 EDT 2024 Heart Rate 114.00 /min Rosa Mmay 13 09:09 :32 EDT 2024 Systolic Blood Pressure 150.00 mm[Hg] Rosa Mmay 13 00:15:26 EDT 2024 Diastolic Blood Pressure 73.00 mm[Hg] Rosa Mmay 13 00:15:26 EDT 2024 Heart Rate 84.00 /min [facility] May 13 00:15 :26 EDT 2024 Body temperature 98.10 [degF] [facility] May 13 00:1 5:26 EDT 2024 Pulse Oximetry 95.00 % SatJun 11 00:15 :26 EDT 2024 Respiratory rate 16.00 /min SatJun 11 00:1 5:26 EDT 2024 Body weight 169.80 [lb_av] SatJun 10 10:11 :29 EDT 2024 Systolic Blood Pressure 130.00 mm[Hg] SatJun 10 08:31:51 EDT 2024 Diastolic Blood Pressure 82.00 mm[Hg] SatJun 10 08:31:51 EDT 2024 Systolic Blood Pressure 130.00 mm[Hg] SatJun 10 08:31:51 EDT 2024 Diastolic Blood Pressure 82.00 mm[Hg] SatJun 10 08:31:51 EDT 2024 Heart Rate 120.00 /min SatJun 10 08:31 :51 EDT 2024 Heart Rate 120.00 /min SatJun 10 08:31 :51 EDT 2024 Body temperature 97.90 [degF] SatJun 10 08:3 1:51 EDT 2024 Pulse Oximetry 97.00 % SatJun 10 08:31 :51 EDT 2024 Respiratory rate 16.00 /min SatJun 10 08:3 1:51 EDT 2024 Systolic Blood Pressure 142.00 mm[Hg] SatJun 09 23:35:41 EDT 2024 Diastolic Blood Pressure 61.00 mm[Hg] SatJun 09 23:35:41 EDT 2024 Heart Rate 88.00 /min SatJun 09 23:35 :41 EDT 2024 Body temperature 97.90 [degF] SatJun 09 23:3 5:41 EDT 2024 Pulse Oximetry 95.00 % SatJun 09 23:35 :41 EDT 2024 Respiratory rate 18.00 /min SatJun 09 23:3 5:41 EDT 2024 Systolic Blood Pressure 150.00 mm[Hg] SatJun 09 18:05:59 EDT 2024 Diastolic Blood Pressure 78.00 mm[Hg] SatJun 09 18:05:59 EDT 2024 Heart Rate 88.00 /min SatJun 09 18:05 :59 EDT 2024 Body temperature 97.80 [degF] SatJun 09 18:0 5:59 EDT 2024 Pulse Oximetry 97.00 % SatJun 09 18:05 :59 EDT 2024 Respiratory rate 18.00 /min SatJun 09 18:0 5:59 EDT 5 Body weight 176.60 [lb_av] SatJun 09 17:55 :10 EDT 5 Systolic Blood Pressure 141.00 mm[Hg] SatJun 08 23:07:50 EDT 2024 Diastolic Blood Pressure 63.00 mm[Hg] SatJun 08 23:07:50 EDT 2024 Heart Rate 80.00 /min SatJun 08 23:07 :50 EDT 2024 Body temperature 98.00 [degF] SatJun 08 23:0 7:50 EDT 2024 Pulse Oximetry 97.00 % SatJun 08 23:07 :50 EDT 2024 Respiratory rate 18.00 /min SatJun 08 23:0 7:50 EDT 2024 Body weight 177.10 [lb_av] SatJun 08 13:19 :52 EDT 2024 Systolic Blood Pressure 179.00 mm[Hg] SatJun 08 11:05:38 EDT 2024 Diastolic Blood Pressure 83.00 mm[Hg] SatJun 08 11:05:38 EDT 2024 Heart Rate 82.00 /min SatJun 08 11:05 :38 EDT 2024 Pulse Oximetry 94.00 % SatJun 08 11:05 :38 EDT 2024 Respiratory rate 18.00 /min SatJun 08 11:0 5:38 EDT 2024 Body temperature 97.30 [degF] SatJun 08 11:0 5:38 EDT 2024 Systolic Blood Pressure 179.00 mm[Hg] SatJun 08 09:49:14 EDT 2024 Diastolic Blood Pressure 83.00 mm[Hg] SatJun 08 09:49:14 EDT 2024 Heart Rate 82.00 /min SatJun 08 09:49 :14 EDT 2024 Systolic Blood Pressure 124.00 mm[Hg] SatJun 08 01:08:22 EDT 2024 Diastolic Blood Pressure 71.00 mm[Hg] SatJun 08 01:08:22 EDT 2024 Heart Rate 79.00 /min SatJun 08 01:08 :22 EDT 2024 Pulse Oximetry 96.00 % SatJun 08 01:08 :22 EDT 2024 Respiratory rate 16.00 /min SatJun 08 01:0 8:22 EDT 2024 Body temperature 97.50 [degF] SatJun 08 01:0 8:22 EDT 2024 Systolic Blood Pressure 166.00 mm[Hg] SatJun 07 18:24:52 EDT 2024 Diastolic Blood Pressure 78.00 mm[Hg] Sun Jun 07 18:24:52 EDT 2024 Body weight 175.30 [lb_av] Sun Jun 07 18:24 :52 EDT 2024 Heart Rate 79.00 /min Sun Jun 07 18:24 :52 EDT 2024 Pulse Oximetry 98.00 % Sun Jun 07 18:24 :52 EDT 2024 Respiratory rate 20.00 /min Sun Jun 07 18:2 4:52 EDT 2024 Body temperature 97.70 [degF] Sun Jun 07 18:2 4:52 EDT 2024 Systolic Blood Pressure 166.00 mm[Hg] Sun Jun 07 10:47:49 EDT 2024 Diastolic Blood Pressure 78.00 mm[Hg] Sun Jun 07 10:47:49 EDT 2024 Heart Rate 79.00 /min Sun Jun 07 10:47 :49 EDT 2024 Systolic Blood Pressure 129.00 mm[Hg] Sat May 08 23:42:57 EST 2024 Diastolic Blood Pressure 67.00 mm[Hg] Sat Jun 06 23:42:57 EST 2024 Heart Rate 78.00 /min Sat Jun 06 23:42 :57 EST 2024 Pulse Oximetry 95.00 % Sat Jun 06 23:42 :57 EST 2024 Respiratory rate 18.00 /min Sat Jun 06 23:4 2:57 EST 2024 Body temperature 97.50 [degF] Sat Jun 06 23:4 2:57 EST 2024 Body weight 174.90 [lb_av] Sat May 08 15:57 :03 EST 2024 Systolic Blood Pressure 146.00 mm[Hg] Sat May 08 10:54:56 EST 2024 Diastolic Blood Pressure 84.00 mm[Hg] Sat May 08 10:54:56 EST 2024 Heart Rate 76.00 /min Sat May 08 10:54 :56 EST 2024 Pulse Oximetry 95.00 % Sat May 08 10:54 :56 EST 2024 Respiratory rate 20.00 /min Sat May 08 10:5 4:56 EST 2024 Body temperature 97.50 [degF] Sat May 08 10:5 4:56 EST 2024 Systolic Blood Pressure 146.00 mm[Hg] Sat May 08 09:40:02 EST 2024 Diastolic Blood Pressure 84.00 mm[Hg] Sat Mar 08 09:40:02 EST 2024 Heart Rate 76.00 /min Sat Mar 08 09:40 :02 EST 2024 Systolic Blood Pressure 139.00 mm[Hg] Sat 08 01:03:16 EST 2024 Diastolic Blood Pressure 80.00 mm[Hg] Sat 08 01:03:16 EST 2024 Heart Rate 74.00 /min Sat 08 01:03 :16 EST 2024 Pulse Oximetry 98.00 % Sat 08 01:03 :16 EST 2024 Respiratory rate 18.00 /min Sat 08 01:0 3:16 EST 2024 Body temperature 97.80 [degF] SatJun 06 01:0 3:16 EST 2024 Body weight 174.20 [lb_av] SatJun 05 13:09 :22 EST 2024 Systolic Blood Pressure 147.00 mm[Hg] SatJun 05 09:23:28 EST 2024 Diastolic Blood Pressure 85.00 mm[Hg] SatJun 05 09:23:28 EST 2024 Heart Rate 77.00 /min SatJun 05 09:23 :28 EST 2024 Pulse Oximetry 95.00 % SatJun 05 09:23 :28 EST 2024 Respiratory rate 20.00 /min SatJun 05 09:2 3:28 EST 2024 Body temperature 98.20 [degF] SatJun 05 09:2 3:28 EST 2024 Systolic Blood Pressure 147.00 mm[Hg] SatJun 05 09:22:11 EST 2024 Diastolic Blood Pressure 85.00 mm[Hg] SatJun 05 09:22:11 EST 2024 Heart Rate 77.00 /min SatJun 05 09:22 :11 EST 2024 Systolic Blood Pressure 160.00 mm[Hg] SatJun 04 23:29:34 EST 2024 Diastolic Blood Pressure 88.00 mm[Hg] SatJun 04 23:29:34 EST 2024 Heart Rate 86.00 /min SatJun 04 23:29 :34 EST 2024 Pulse Oximetry 94.00 % SatJun 04 23:29 :34 EST 2024 Respiratory rate 18.00 /min SatJun 04 23:2 9:34 EST 2024 Body temperature 97.50 [degF] SatJun 04 23:2 9:34 EST 2024 Body weight 175.60 [lb_av] SatJun 04 13:07 :52 EST 2024 Systolic Blood Pressure 142.00 mm[Hg] SatJun 04 09:05:33 EST 2024 Diastolic Blood Pressure 69.00 mm[Hg] SatJun 04 09:05:33 EST 2024 Systolic Blood Pressure 142.00 mm[Hg] Sat 06 09:05:33 EST 2024 Diastolic Blood Pressure 69.00 mm[Hg] Sat 06 09:05:33 EST 2024 Heart Rate 84.00 /min Sat 06 09:05 :33 EST 2024 Heart Rate 84.00 /min Sat 06 09:05 :33 EST 2024 Pulse Oximetry 95.00 % SatJun 04 09:05 :33 EST 2024 Respiratory rate 18.00 /min SatJun 04 09:0 5:33 EST 2024 Body temperature 97.60 [degF] SatJun 04 09:0 5:33 EST 2024 Systolic Blood Pressure 151.00 mm[Hg] SatJun 03 23:00:22 EST 2024 Diastolic Blood Pressure 81.00 mm[Hg] SatJun 03 23:00:22 EST 2024 Heart Rate 83.00 /min SatJun 03 23:00 :22 EST 2024 Pulse Oximetry 97.00 % SatJun 03 23:00 :22 EST 2024 Respiratory rate 18.00 /min SatJun 03 23:0 0:22 EST 2024 Body temperature 97.30 [degF] SatJun 03 23:0 0:22 EST 2024 Body weight 178.20 [lb_av] SatJun 03 09:28 :59 EST 2024 Systolic Blood Pressure 174.00 mm[Hg] SatJun 03 09:07:24 EST 2024 Diastolic Blood Pressure 93.00 mm[Hg] SatJun 03 09:07:24 EST 2024 Systolic Blood Pressure 174.00 mm[Hg] SatJun 03 09:07:24 EST 2024 Diastolic Blood Pressure 93.00 mm[Hg] SatJun 03 09:07:24 EST 2024 Heart Rate 91.00 /min SatJun 03 09:07 :24 EST 2024 Heart Rate 91.00 /min SatJun 03 09:07 :24 EST 2024 Pulse Oximetry 92.00 % SatJun 03 09:07 :24 EST 2024 Respiratory rate 18.00 /min SatJun 03 09:0 7:24 EST 2024 Body temperature 97.60 [degF] SatJun 03 09:0 7:24 EST 2024 Systolic Blood Pressure 152.00 mm[Hg] SatJun 03 00:25:43 EST 2024 Diastolic Blood Pressure 68.00 mm[Hg] SatJun 03 00:25:43 EST 2024 Heart Rate 84.00 /min SatJun 03 00:25 :43 EST 2024 Pulse Oximetry 93.00 % SatJun 03 00:25 :43 EST 2024 Respiratory rate 18.00 /min SatJun 03 00:2 5:43 EST 2024 Body temperature 97.80 [degF] SatJun 03 00:2 5:43 EST 2024 Systolic Blood Pressure 160.00 mm[Hg] SatJun 02 10:43:02 EST 2024 Diastolic Blood Pressure 77.00 mm[Hg] SatJun 02 10:43:02 EST 2024 Heart Rate 83.00 /min SatJun 02 10:43 :02 EST 2024 Pulse Oximetry 93.00 % SatJun 02 10:43 :02 EST 2024 Respiratory rate 18.00 /min SatJun 02 10:4 3:02 EST 2024 Body temperature 98.60 [degF] SatJun 02 10:4 3:02 EST 2024 Systolic Blood Pressure 160.00 mm[Hg] SatJun 02 09:50:19 EST 2024 Diastolic Blood Pressure 77.00 mm[Hg] SatJun 02 09:50:19 EST 2024 Heart Rate 83.00 /min SatJun 02 09:50 :19 EST 2024 Systolic Blood Pressure 136.00 mm[Hg] SatJun 02 01:35:52 EST 2024 Diastolic Blood Pressure 63.00 mm[Hg] SatJun 02 01:35:52 EST 2024 Heart Rate 70.00 /min SatJun 02 01:35 :52 EST 2024 Pulse Oximetry 94.00 % SatJun 02 01:35 :52 EST 2024 Respiratory rate 16.00 /min SatJun 02 01:3 5:52 EST 2024 Body temperature 98.40 [degF] SatJun 02 01:3 5:52 EST 2024 Body weight 180.60 [lb_av] SatJun 01 11:33 :41 EST 2024 Systolic Blood Pressure 155.00 mm[Hg] SatJun 01 10:03:14 EST 2024 Diastolic Blood Pressure 69.00 mm[Hg] SatJun 01 10:03:14 EST 2024 Systolic Blood Pressure 155.00 mm[Hg] SatJun 01 10:03:14 EST 2024 Diastolic Blood Pressure 69.00 mm[Hg] Sat 03 10:03:14 EST 2024 Heart Rate 79.00 /min SatJun 01 10:03 :14 EST 2024 Heart Rate 79.00 /min SatJun 01 10:03 :14 EST 2024 Pulse Oximetry 96.00 % SatJun 01 10:03 :14 EST 2024 Respiratory rate 18.00 /min Mon Jun 01 10:0 3:14 EST 2024 Body temperature 98.20 [degF] SatJun 01 10:0 3:14 EST 2024 Systolic Blood Pressure 137.00 mm[Hg] Sun Mar 02 23:07:31 EST 2024 Diastolic Blood Pressure 61.00 mm[Hg] Sun Mar 02 23:07:31 EST 2024 Heart Rate 72.00 /min Sun May 31 23:07 :31 EST 2024 Pulse Oximetry 99.00 % Sun May 31 23:07 :31 EST 2024 Respiratory rate 18.00 /min Sun May 31 23:0 7:31 EST 2024 Body temperature 97.60 [degF] Sun May 31 23:0 7:31 EST 2024 Systolic Blood Pressure 137.00 mm[Hg] Sun Mar 02 10:15:23 EST 2024 Diastolic Blood Pressure 77.00 mm[Hg] Sun Mar 02 10:15:23 EST 2024 Heart Rate 69.00 /min Sun May 02 10:15 :23 EST 2024 Pulse Oximetry 99.00 % Sun May 31 10:15 :23 EST 2024 Respiratory rate 18.00 /min Sun May 02 10:1 5:23 EST 2024 Body temperature 97.60 [degF] Sun May 02 10:1 5:23 EST 2024 Systolic Blood Pressure 137.00 mm[Hg] Sun Mar 02 10:14:20 EST 2024 Diastolic Blood Pressure 77.00 mm[Hg] Sun May 02 10:14:20 EST 2024 Heart Rate 69.00 /min Sun May 02 10:14 :20 EST 2024 Systolic Blood Pressure 142.00 mm[Hg] Sun Mar 02 03:48:16 EST 2024 Diastolic Blood Pressure 59.00 mm[Hg] Sun Mar 02 03:48:16 EST 2024 Heart Rate 81.00 /min Sun Mar 02 03:48 :16 EST 2024 Pulse Oximetry 95.00 % Sun May 02 03:48 :16 EST 2024 Respiratory rate 16.00 /min Sun Mar 02 03:4 8:16 EST 2025 Body temperature 98.00 [degF] [place] May 31 03:4 8:16 EST 2024 Systolic Blood Pressure 150.00 mm[Hg] SatMay 30 14:36:01 EST 2024 Diastolic Blood Pressure 77.00 mm[Hg] SatMay 30 14:36:01 EST 2024 Heart Rate 77.00 /min SatMay 30 14:36 :01 EST 2024 Pulse Oximetry 91.00 % [facility] May 30 14:36 :01 EST 2024 Respiratory rate 18.00 /min SatMay 30 14:3 6:01 EST 2024 Body temperature 97.30 [degF] [facility] May 30 14:3 6:01 EST 2024 Systolic Blood Pressure 150.00 mm[Hg] SatMay 30 09:59:14 EST 2024 Diastolic Blood Pressure 17.00 mm[Hg] SatMay 30 09:59:14 EST 2024 Heart Rate 77.00 /min SatMay 30 09:59 :14 EST 2024 Systolic Blood Pressure 120.00 mm[Hg] SatMay 29 23:47:19 2024 Diastolic Blood Pressure 54.00 mm[Hg] SatMay 29 23:47:19 2024 Heart Rate 68.00 /min SatMay 29 23:47 :19 2024 Pulse Oximetry 94.00 % SatMay 29 23:47 :19 2024 Respiratory rate 18.00 /min SatMay 29 23:4 7:19 2024 Body temperature 97.40 [degF] SatMay 29 23:4 7:19 2024 Body weight 179.20 [lb_av] SatMay 29 15:37 :42 2024 Systolic Blood Pressure 137.00 mm[Hg] SatMay 29 10:42:45 EST 2024 Diastolic Blood Pressure 70.00 mm[Hg] SatMay 29 10:42:45 EST 2024 Heart Rate 78.00 /min SatMay 29 10:42 :45 EST 2024 Pulse Oximetry 91.00 % SatMay 29 10:42 :45 EST 2024 Respiratory rate 20.00 /min SatMay 29 10:4 2:45 EST 2024 Body temperature 98.20 [degF] SatMay 29 10:4 2:45 EST 2024 Systolic Blood Pressure 137.00 mm[Hg] Satb 10:06:57 EST 2024 Diastolic Blood Pressure 70.00 mm[Hg] Satb 28 10:06:57 EST 2024 Heart Rate 78.00 /min Fri Feb 28 10:06 :57 EST 2024 Systolic Blood Pressure 142.00 mm[Hg] Rosa M Feb 27 23:22:43 EST 2024 Diastolic Blood Pressure 72.00 mm[Hg] Rosa M Feb 27 23:22:43 EST 2024 Heart Rate 93.00 /min Rosa M Feb 27 23:22 :43 EST 2024 Pulse Oximetry 96.00 % Rosa M Feb 27 23:22 :43 EST 2024 Respiratory rate 18.00 /min Rosa M Feb 27 23:2 2:43 EST 2024 Body temperature 97.70 [degF] Rosa M Feb 27 23:2 2:43 EST 2024 Body weight 179.10 [lb_av] Rosa M Feb 27 17:11 :37 EST 2024 Systolic Blood Pressure 143.00 mm[Hg] Rosa M Feb 27 10:47:41 EST 2024 Diastolic Blood Pressure 78.00 mm[Hg] Rosa M Feb 27 10:47:41 EST 2024 Heart Rate 79.00 /min Rosa M Feb 27 10:47 :41 EST 2024 Pulse Oximetry 94.00 % Rosa M Feb 27 10:47 :41 EST 2024 Respiratory rate 20.00 /min Rosa M Feb 27 10:4 7:41 EST 2024 Body temperature 98.30 [degF] Rosa M Feb 27 10:4 7:41 EST 2024 Systolic Blood Pressure 143.00 mm[Hg] Rosa M Feb 27 09:35:42 EST 2024 Diastolic Blood Pressure 78.00 mm[Hg] Rosa M Feb 27 09:35:42 EST 2024 Heart Rate 79.00 /min Rosa M Feb 27 09:35 :42 EST 2024 Systolic Blood Pressure 134.00 mm[Hg] Wed Feb 26 22:21:54 EST 5 Diastolic Blood Pressure 63.00 mm[Hg] Wed Feb 26 22:21:54 EST 2024 Body temperature 98.10 [degF] Wed Feb 26 22:2 1:54 EST 5 Respiratory rate 18.00 /min Wed Feb 26 22:2 1:54 EST 2024 Pulse Oximetry 97.00 % Wed Feb 26 22:21 :54 EST 2024 Heart Rate 77.00 /min Wed Feb 26 22:21 :54 EST 2024 Body weight 178.20 [lb_av] Wed Feb 26 14:41 :52 EST 2024 Systolic Blood Pressure 149.00 mm[Hg] Wed Feb 26 11:57:05 EST 5 Diastolic Blood Pressure 68.00 mm[Hg] Wed Feb 26 11:57:05 EST 5 Heart Rate 79.00 /min Wed Feb 26 11:57 :05 EST 2024 Body temperature 98.20 [degF] Wed Feb 26 11:5 7:05 EST 2024 Pulse Oximetry 98.00 % Wed Feb 26 11:57 :05 EST 5 Respiratory rate 18.00 /min Wed Feb 26 11:5 7:05 EST 2024 Systolic Blood Pressure 149.00 mm[Hg] Wed Feb 26 09:10:27 EST 2024 Diastolic Blood Pressure 68.00 mm[Hg] Wed Feb 26 09:10:27 EST 2024 Heart Rate 79.00 /min Wed Feb 26 09:10 :27 EST 2024 Systolic Blood Pressure 148.00 mm[Hg] Wed Feb 26 02:15:07 EST 2024 Diastolic Blood Pressure 75.00 mm[Hg] Wed Feb 26 02:15:07 EST 2024 Heart Rate 79.00 /min Wed Feb 26 02:15 :07 EST 2024 Body temperature 98.40 [degF] Wed Feb 26 02:1 5:07 EST 2024 Pulse Oximetry 97.00 % Wed Feb 26 02:15 :07 EST 2024 Respiratory rate 18.00 /min Wed Feb 26 02:1 5:07 EST 2024 Body weight 179.20 [lb_av] Sat Feb 14:17 :38 EST 2024 Systolic Blood Pressure 152.00 mm[Hg] e Feb 09:03:58 EST 2024 Diastolic Blood Pressure 80.00 mm[Hg] e Feb 09:03:58 EST 2024 Heart Rate 76.00 /min Sat Feb 09:03 :58 EST 2024 Body temperature 98.20 [degF] e Feb 09:0 3:58 EST 2024 Pulse Oximetry 93.00 % Sat Feb 09:03 :58 EST 5 Respiratory rate 18.00 /min e Feb 09:0 3:58 EST 5 Systolic Blood Pressure 152.00 mm[Hg] Satb 08:33:30 EST 2024 Diastolic Blood Pressure 80.00 mm[Hg] Satb 08:33:30 EST 2024 Heart Rate 76.00 /min Satb 08:33 :30 EST 5 Systolic Blood Pressure 146.00 mm[Hg] Satb 00:19:27 EST 5 Diastolic Blood Pressure 63.00 mm[Hg] Sat Feb 00:19:27 EST 2025 Heart Rate 73.00 /min Satb 00:19 :27 EST 2025 Body temperature 97.80 [degF] Satb 00:1 9:27 EST 2024 Pulse Oximetry 95.00 % Satb 00:19 :27 EST 2024 Respiratory rate 18.00 /min Satb 00:1 9:27 EST 2024 Body weight 181.30 [lb_av] Sat Feb 09:32 :44 EST 2024 Systolic Blood Pressure 142.00 mm[Hg] Sat Feb 09:03:45 EST 5 Diastolic Blood Pressure 73.00 mm[Hg] Sat Feb 09:03:45 EST 5 Heart Rate 82.00 /min Sat Feb 09:03 :45 EST 2024 Systolic Blood Pressure 142.00 mm[Hg] Sat Feb 08:35:58 EST 2024 Diastolic Blood Pressure 79.00 mm[Hg] Sat Feb 08:35:58 EST 5 Heart Rate 82.00 /min Sat Feb 08:35 :58 EST 2024 Body temperature 97.80 [degF] Sat Feb 08:3 5:58 EST 5 Pulse Oximetry 95.00 % Sat Feb 08:35 :58 EST 2025 Respiratory rate 20.00 /min Sat Feb 24 08:3 5:58 EST 2025 Systolic Blood Pressure 162.00 mm[Hg] Mon Feb 24 00:15:59 EST 5 Diastolic Blood Pressure 75.00 mm[Hg] Sat Feb 24 00:15:59 EST 2025 Heart Rate 77.00 /min Sat Feb 24 00:15 :59 EST 2025 Body temperature 98.20 [degF] Mon Feb 24 00:1 5:59 EST 2025 Pulse Oximetry 93.00 % Sat Feb 24 00:15 :59 EST 2025 Respiratory rate 20.00 /min Mon Feb 24 00:1 5:59 EST 5 Body weight 181.20 [lb_av] Sun Feb 23 17:03 :09 EST 2024 Systolic Blood Pressure 131.00 mm[Hg] Sun Feb 09:44:13 EST 2024 Diastolic Blood Pressure 64.00 mm[Hg] Sun Feb 09:44:13 EST 5 Heart Rate 70.00 /min Sun Feb 09:44 :13 EST 2024 Body temperature 98.20 [degF] Sun Feb 09:4 4:13 EST 2024 Pulse Oximetry 93.00 % Sun Feb 09:44 :13 EST 2024 Respiratory rate 18.00 /min Sun Feb 09:4 4:13 EST 2024 Systolic Blood Pressure 131.00 mm[Hg] Sun Feb 09:18:06 EST 2024 Diastolic Blood Pressure 64.00 mm[Hg] Sun Feb 09:18:06 EST 5 Heart Rate 70.00 /min Sun Feb 09:18 :06 EST 5 Systolic Blood Pressure 138.00 mm[Hg] Sun Feb 01:24:44 EST 2024 Diastolic Blood Pressure 58.00 mm[Hg] Sun Feb 01:24:44 EST 2024 Heart Rate 73.00 /min Sun Feb 01:24 :44 EST 2024 Body temperature 97.80 [degF] Sun Feb 01:2 4:44 EST 2024 Pulse Oximetry 96.00 % Sun Feb 01:24 :44 EST 5 Respiratory rate 18.00 /min Sun Feb 01:2 4:44 EST 5 Systolic Blood Pressure 112.00 mm[Hg] Sat Feb 22 10:13:54 EST 5 Diastolic Blood Pressure 64.00 mm[Hg] Sat Feb 22 10:13:54 EST 5 Heart Rate 68.00 /min Sat Feb 22 10:13 :54 EST 5 Body temperature 97.80 [degF] Sat Feb 22 10:1 3:54 EST 2025 Pulse Oximetry 94.00 % Sat Feb 22 10:13 :54 EST 5 Respiratory rate 18.00 /min Sat Feb 22 10:1 3:54 EST 2025 Systolic Blood Pressure 112.00 mm[Hg] Sat Feb 22 09:03:52 EST 2025 Diastolic Blood Pressure 64.00 mm[Hg] Sat Feb 22 09:03:52 EST 2024 Heart Rate 68.00 /min Sat Feb 22 09:03 :52 EST 2024 Systolic Blood Pressure 100.00 mm[Hg] Sat Feb 22 03:18:59 EST 5 Diastolic Blood Pressure 86.00 mm[Hg] Sat Feb 22 03:18:59 EST 2024 Heart Rate 72.00 /min Sat Feb 22 03:18 :59 EST 2024 Body temperature 98.00 [degF] Sat Feb 22 03:1 8:59 EST 2024 Pulse Oximetry 95.00 % Sat Feb 22 03:18 :59 EST 2024 Respiratory rate 20.00 /min Sat Feb 03:1 8:59 EST 2024 Body weight 181.40 [lb_av] Sat Feb 19:00 :47 EST 2024 Systolic Blood Pressure 115.00 mm[Hg] Sat Feb 09:45:57 EST 2024 Diastolic Blood Pressure 53.00 mm[Hg] Sat Feb 09:45:57 EST 2024 Systolic Blood Pressure 115.00 mm[Hg] Sat Feb 09:45:57 EST 2024 Diastolic Blood Pressure 53.00 mm[Hg] Sat Feb 09:45:57 EST 2024 Heart Rate 66.00 /min Sat Feb 09:45 :57 EST 2024 Heart Rate 66.00 /min Sat Feb 09:45 :57 EST 2024 Body temperature 97.70 [degF] Sat Feb 09:4 5:57 EST 2024 Pulse Oximetry 94.00 % Sat Feb 09:45 :57 EST 5 Respiratory rate 18.00 /min Sat Feb 09:4 5:57 EST 5 Systolic Blood Pressure 126.00 mm[Hg] Sat Feb 00:02:02 EST 5 Diastolic Blood Pressure 61.00 mm[Hg] Sat Feb 00:02:02 EST 2024 Heart Rate 70.00 /min Sat Feb 00:02 :02 EST 2024 Body temperature 97.30 [degF] Sat Feb 00:0 2:02 EST 2024 Pulse Oximetry 97.00 % Sat Feb 00:02 :02 EST 2024 Respiratory rate 18.00 /min Sat Feb 00:0 2:02 EST 2025 Body weight 180.00 [lb_av] Rosa M Feb 20 11:39 :56 EST 5 Systolic Blood Pressure 135.00 mm[Hg] Rosa M Feb 20 10:18:42 EST 2024 Diastolic Blood Pressure 93.00 mm[Hg] Rosa M Feb 20 10:18:42 EST 5 Systolic Blood Pressure 135.00 mm[Hg] Rosa M Feb 20 10:18:42 EST 5 Diastolic Blood Pressure 93.00 mm[Hg] Rosa M Feb 20 10:18:42 EST 5 Heart Rate 72.00 /min Rosa M Feb 20 10:18 :42 EST 5 Heart Rate 72.00 /min Rosa M Feb 20 10:18 :42 EST 2024 Body temperature 97.70 [degF] Rosa M Feb 20 10:1 8:42 EST 2024 Pulse Oximetry 97.00 % Rosa M Feb 20 10:18 :42 EST 2024 Respiratory rate 18.00 /min Rosa M Feb 20 10:1 8:42 EST 2024 Systolic Blood Pressure 109.00 mm[Hg] Rosa M Feb 20 03:14:49 EST 2024 Diastolic Blood Pressure 53.00 mm[Hg] Rosa M Feb 20 03:14:49 EST 2024 Heart Rate 64.00 /min Rosa M Feb 20 03:14 :49 EST 2024 Body temperature 97.90 [degF] Rosa M Feb 20 03:1 4:49 EST 2024 Pulse Oximetry 96.00 % Rosa M Feb 20 03:14 :49 EST 5 Respiratory rate 18.00 /min Rosa M Feb 20 03:1 4:49 EST 2024 Body weight 180.00 [lb_av] Wed Feb 19 14:11 :46 EST 5 Systolic Blood Pressure 109.00 mm[Hg] Wed Feb 19 09:57:46 EST 5 Diastolic Blood Pressure 53.00 mm[Hg] Wed Feb 19 09:57:46 EST 5 Systolic Blood Pressure 109.00 mm[Hg] Wed Feb 19 09:57:46 EST 5 Diastolic Blood Pressure 53.00 mm[Hg] Wed Feb 19 09:57:46 EST 5 Heart Rate 63.00 /min Wed Feb 19 09:57 :46 EST 5 Heart Rate 63.00 /min Wed Feb 19 09:57 :46 EST 5 Body temperature 97.40 [degF] Wed Feb 19 09:5 7:46 EST 5 Pulse Oximetry 96.00 % Wed Feb 19 09:57 :46 EST 5 Respiratory rate 18.00 /min Wed Feb 19 09:5 7:46 EST 2025 Systolic Blood Pressure 146.00 mm[Hg] e Feb 18 21:27:31 EST 5 Diastolic Blood Pressure 63.00 mm[Hg] e Feb 18 21:27:31 EST 2025 Heart Rate 69.00 /min e Feb 18 21:27 :31 EST 2025 Body temperature 97.80 [degF] e Feb 18 21:2 7:31 EST 5 Pulse Oximetry 94.00 % e Feb 18 21:27 :31 EST 5 Respiratory rate 18.00 /min e Feb 18 21:2 7:31 EST 5 Body temperature 97.10 [degF] e Feb 18 13:0 5:30 EST 2024 Body weight 179.80 [lb_av] e b 18 11:46 :01 EST 5 Systolic Blood Pressure 119.00 mm[Hg] e Feb 18 09:29:54 EST 5 Diastolic Blood Pressure 60.00 mm[Hg] e Feb 18 09:29:54 EST 5 Heart Rate 69.00 /min e Feb 18 09:29 :54 EST 5 Body temperature 97.60 [degF] e Feb 18 09:2 9:54 EST 2024 Pulse Oximetry 93.00 % e Feb 18 09:29 :54 EST 5 Respiratory rate 16.00 /min e Feb 18 09:2 9:54 EST 5 Systolic Blood Pressure 119.00 mm[Hg] e Feb 18 09:03:56 EST 5 Diastolic Blood Pressure 60.00 mm[Hg] e Feb 18 09:03:56 EST 5 Heart Rate 69.00 /min e Feb 18 09:03 :56 EST 5 Systolic Blood Pressure 128.00 mm[Hg] e Feb 18 02:57:12 EST 5 Diastolic Blood Pressure 61.00 mm[Hg] e Feb 18 02:57:12 EST 5 Heart Rate 66.00 /min e Feb 18 02:57 :12 EST 5 Body temperature 97.80 [degF] Sat Feb 18 02:5 7:12 EST 2024 Pulse Oximetry 94.00 % Sat Feb 18 02:57 :12 EST 2024 Respiratory rate 18.00 /min Sat Feb 18 02:5 7:12 EST 2024 Body weight 177.40 [lb_av] Sat Feb 17 10:51 :19 EST 5 Systolic Blood Pressure 121.00 mm[Hg] Mon Feb 17 10:32:33 EST 2024 Diastolic Blood Pressure 73.00 mm[Hg] Mon Feb 17 10:32:33 EST 5 Heart Rate 73.00 /min Mon Feb 17 10:32 :33 EST 2024 Body temperature 97.30 [degF] Mon Feb 17 10:3 2:33 EST 2024 Pulse Oximetry 96.00 % Sat Feb 17 10:32 :33 EST 5 Respiratory rate 16.00 /min Mon Feb 17 10:3 2:33 EST 5 Systolic Blood Pressure 121.00 mm[Hg] Mon Feb 17 09:21:57 EST 5 Diastolic Blood Pressure 73.00 mm[Hg] Mon Feb 17 09:21:57 EST 5 Heart Rate 73.00 /min Mon Feb 17 09:21 :57 EST 5 Systolic Blood Pressure 135.00 mm[Hg] Mon Feb 17 00:08:31 EST 5 Diastolic Blood Pressure 55.00 mm[Hg] Mon Feb 17 00:08:31 EST 5 Heart Rate 66.00 /min Mon Feb 17 00:08 :31 EST 5 Body temperature 97.70 [degF] Mon Feb 17 00:0 8:31 EST 5 Pulse Oximetry 95.00 % Mon Feb 17 00:08 :31 EST 5 Respiratory rate 16.00 /min Mon Feb 17 00:0 8:31 EST 5 Body weight 178.00 [lb_av] Sun Feb 16 14:09 :39 EST 5 Systolic Blood Pressure 117.00 mm[Hg] Sun Feb 16 10:16:27 EST 5 Diastolic Blood Pressure 52.00 mm[Hg] Sun Feb 16 10:16:27 EST 5 Heart Rate 64.00 /min Sun Feb 16 10:16 :27 EST 5 Body temperature 97.60 [degF] Sun Feb 16 10:1 6:27 EST 5 Pulse Oximetry 91.00 % Sun Feb 16 10:16 :27 EST 5 Respiratory rate 16.00 /min Sun Feb 16 10:1 6:27 EST 5 Systolic Blood Pressure 117.00 mm[Hg] Sun Feb 16 09:45:17 EST 2025 Diastolic Blood Pressure 55.00 mm[Hg] Sun Feb 16 09:45:17 EST 2025 Heart Rate 64.00 /min Sun Feb 16 09:45 :17 EST 2025 Systolic Blood Pressure 125.00 mm[Hg] Sat Feb 15 23:03:29 EST 2025 Diastolic Blood Pressure 59.00 mm[Hg] Sat Feb 15 23:03:29 EST 2025 Heart Rate 70.00 /min Sat Feb 15 23:03 :29 EST 2025 Body temperature 97.30 [degF] Sat Feb 15 23:0 3:29 EST 5 Pulse Oximetry 96.00 % Sat Feb 15 23:03 :29 EST 2025 Respiratory rate 18.00 /min Sat Feb 15 23:0 3:29 EST 2024 Body weight 178.20 [lb_av] Sat Feb 15 12:49 :33 EST 5 Systolic Blood Pressure 114.00 mm[Hg] Sat Feb 15 09:55:42 EST 2025 Diastolic Blood Pressure 53.00 mm[Hg] Sat Feb 15 09:55:42 EST 5 Systolic Blood Pressure 114.00 mm[Hg] Sat Feb 15 09:55:42 EST 2025 Diastolic Blood Pressure 53.00 mm[Hg] Sat Feb 15 09:55:42 EST 2025 Heart Rate 64.00 /min Sat Feb 15 09:55 :42 EST 2025 Heart Rate 64.00 /min Sat Feb 15 09:55 :42 EST 2025 Body temperature 97.50 [degF] Sat Feb 15 09:5 5:42 EST 2025 Pulse Oximetry 92.00 % Sat Feb 15 09:55 :42 EST 2025 Respiratory rate 16.00 /min Sat Feb 15 09:5 5:42 EST 2025 Systolic Blood Pressure 121.00 mm[Hg] Fri Feb 14 22:24:57 EST 2025 Diastolic Blood Pressure 59.00 mm[Hg] Fri Feb 14 22:24:57 EST 2025 Heart Rate 72.00 /min Fri Feb 14 22:24 :57 EST 2025 Body temperature 97.70 [degF] Fri Feb 14 22:2 4:57 EST 2024 Pulse Oximetry 96.00 % Fri Feb 14 22:24 :57 EST 2024 Respiratory rate 16.00 /min Sat Feb 14 22:2 4:57 EST 2024 Body weight 179.20 [lb_av] Fri Feb 14 13:46 :08 EST 2024 Systolic Blood Pressure 121.00 mm[Hg] Fri Feb 14 09:26:24 EST 2024 Diastolic Blood Pressure 60.00 mm[Hg] Fri Feb 14 09:26:24 EST 5 Systolic Blood Pressure 121.00 mm[Hg] Fri Feb 14 09:26:24 EST 2024 Diastolic Blood Pressure 60.00 mm[Hg] Fri Feb 14 09:26:24 EST 2024 Heart Rate 68.00 /min Fri Feb 14 09:26 :24 EST 2024 Heart Rate 68.00 /min Fri Feb 14 09:26 :24 EST 2024 Body temperature 97.60 [degF] Fri Feb 14 09:2 6:24 EST 2024 Pulse Oximetry 97.00 % Sat Feb 14 09:26 :24 EST 2024 Respiratory rate 18.00 /min Sat Feb 14 09:2 6:24 EST 2024 Systolic Blood Pressure 143.00 mm[Hg] Rosa M Feb 13 22:01:41 EST 5 Diastolic Blood Pressure 61.00 mm[Hg] Rosa M Feb 13 22:01:41 EST 2024 Heart Rate 62.00 /min Rosa M Feb 13 22:01 :41 EST 2024 Body temperature 97.80 [degF] Rosa M Feb 13 22:0 1:41 EST 2024 Pulse Oximetry 96.00 % Rosa M Feb 13 22:01 :41 EST 5 Respiratory rate 18.00 /min Rosa M Feb 13 22:0 1:41 EST 2024 Body weight 178.40 [lb_av] Rosa M Feb 13 11:08 :53 EST 2024 Systolic Blood Pressure 177.00 mm[Hg] Rosa M Feb 13 09:30:38 EST 5 Diastolic Blood Pressure 91.00 mm[Hg] Rosa M Feb 13 09:30:38 EST 5 Heart Rate 79.00 /min Rosa M Feb 13 09:30 :38 EST 2024 Body temperature 97.50 [degF] Rosa M Feb 13 09:3 0:38 EST 2024 Pulse Oximetry 92.00 % Rosa M Feb 13 09:30 :38 EST 5 Respiratory rate 18.00 /min Rosa M Feb 13 09:3 0:38 EST 5 Systolic Blood Pressure 177.00 mm[Hg] Rosa M Feb 13 09:25:07 EST 5 Diastolic Blood Pressure 91.00 mm[Hg] Rosa M Feb 13 09:25:07 EST 5 Heart Rate 79.00 /min Rosa M Feb 13 09:25 :07 EST 5 Systolic Blood Pressure 150.00 mm[Hg] Wed Feb 12 20:19:26 EST 5 Diastolic Blood Pressure 60.00 mm[Hg] Wed Feb 12 20:19:26 EST 5 Heart Rate 67.00 /min Wed Feb 12 20:19 :26 EST 5 Body temperature 98.00 [degF] Wed Feb 12 20:1 9:26 EST 2024 Pulse Oximetry 95.00 % Wed Feb 12 20:19 :26 EST 5 Respiratory rate 18.00 /min Wed Feb 12 20:1 9:26 EST 5 Body weight 178.40 [lb_av] Wed Feb 12 11:46 :21 EST 5 Systolic Blood Pressure 126.00 mm[Hg] Wed Feb 12 10:03:54 EST 2025 Diastolic Blood Pressure 58.00 mm[Hg] Wed Feb 12 10:03:54 EST 2025 Heart Rate 69.00 /min Wed Feb 12 10:03 :54 EST 2025 Body temperature 97.40 [degF] Wed Feb 12 10:0 3:54 EST 5 Pulse Oximetry 93.00 % Wed Feb 12 10:03 :54 EST 2025 Respiratory rate 20.00 /min Wed Feb 12 10:0 3:54 EST 5 Systolic Blood Pressure 126.00 mm[Hg] Wed Feb 12 09:18:35 EST 2025 Diastolic Blood Pressure 58.00 mm[Hg] Wed Feb 12 09:18:35 EST 2025 Heart Rate 69.00 /min Wed Feb 12 09:18 :35 EST 5 Systolic Blood Pressure 153.00 mm[Hg] Wed Feb 12 00:09:33 EST 5 Diastolic Blood Pressure 71.00 mm[Hg] Wed Feb 12 00:09:33 EST 2025 Heart Rate 72.00 /min Wed Feb 12 00:09 :33 EST 2024 Body temperature 97.60 [degF] Sat Feb 12 00:0 9:33 EST 2024 Pulse Oximetry 97.00 % Satb 12 00:09 :33 EST 5 Respiratory rate 20.00 /min Sat Feb 12 00:0 9:33 EST 5 Systolic Blood Pressure 154.00 mm[Hg] Sat Feb 11 08:46:44 EST 2024 Diastolic Blood Pressure 81.00 mm[Hg] Sat Feb 08:46:44 EST 2024 Heart Rate 76.00 /min Sat Feb 08:46 :44 EST 2024 Body temperature 98.10 [degF] Sat Feb 08:4 6:44 EST 2024 Pulse Oximetry 94.00 % Sat Feb 08:46 :44 EST 5 Respiratory rate 20.00 /min Sat Feb 08:4 6:44 EST 2024 Systolic Blood Pressure 154.00 mm[Hg] Sat Feb 08:43:55 EST 2024 Diastolic Blood Pressure 81.00 mm[Hg] Sat Feb 08:43:55 EST 5 Heart Rate 76.00 /min Sat Feb 08:43 :55 EST 5 Systolic Blood Pressure 154.00 mm[Hg] Sat Feb 10 23:35:55 EST 2024 Diastolic Blood Pressure 71.00 mm[Hg] Sat Feb 10 23:35:55 EST 5 Heart Rate 71.00 /min Sat Feb 10 23:35 :55 EST 2024 Body temperature 98.30 [degF] Sat Feb 10 23:3 5:55 EST 2024 Pulse Oximetry 94.00 % Sat Feb 10 23:35 :55 EST 5 Respiratory rate 18.00 /min Sat Feb 10 23:3 5:55 EST 5 Systolic Blood Pressure 155.00 mm[Hg] Mon Feb 10 16:32:00 EST 2024 Diastolic Blood Pressure 78.00 mm[Hg] Sat Feb 10 16:32:00 EST 5 Heart Rate 71.00 /min Sat Feb 10 16:32 :00 EST 2024 Body Height 63.00 [in_i] Sat Feb 10 16:32 :00 EST 2024 Body weight 180.40 [lb_av] Sat Feb 10 16:32 :00 EST 2025 Body temperature 98.20 [degF] SatMay 11 16:3 2:00 EST 2024 Respiratory rate 18.00 /min SatMay 11 16:3 2:00 EST 2024 Pulse Oximetry 96.00 % SatMay 11 16:32 :00 EST 2024 Reason for Referral Past Medical History Resolved Concerns * Problem Atherosclerotic heart disease of [place] coronary artery without angina pectoris* Code: * Start Date: SatJan 10 00:00:00 EDT 2022 * End Date: SatMay 13 00:00:00 EST 2024 * Problem Hyperlipidemia, unspecified* Code: * Start Date: SatJan 10 00:00:00 EDT 2022 * End Date: SatJan 11 00:00:00 EDT 2022 * Problem Fall on same level, unspecified, subsequent encounter* Code: * Start Date: SatJan 10 00:00:00 EDT 2022 * End Date: SatMay 13 00:00:00 EST 2024 * Problem Fracture of unspecified part of neck of right femur, subsequent encounter for closed fracture with routine healing* Code: * Start Date: SatJan 10 00:00:00 EDT 2022 * End Date: SatMay 13 00:00:00 EST 2024
--- OUTSIDE RECORDS SUMMARY | 2024-07-07 13:05 | XMS_ITS | Continuity of Care Document ---
Author Organization [facility] Address [address] [place] [address] [place] [address] Phone Care Team Providers Care Manager Field Name Role Phone [facility] [employer] Unavailable Unavail able Deysi Scherer Unavailable Unavailable Advance Directives Directive Yes / No Effective Date File Name No Information Encounters Encounter Description Practice Location Reason(s) For Visit Diagnoses Date Provider Providers Copied on Encounter [facility], [address] [place] [address] [address], [place], [place], [id number], [place] tel:[phone] [facility] No Information [address] [facility] [address] [employer] [address] [facility], [address], [place], [place], [id number] , [place]. tel:[phone] Consulting Provider: Deysi Scherer, [address] [place] [address], [place], [address]. tel:[phone] Family History Family Member Type Diagnosis Age At Onset No Information Payers Payer name Insurance type Covered constitution party ID Authoriza tion(s) No Information Social [...]
--- OUTSIDE RECORDS SUMMARY | 2024-07-07 13:05 | XMS_ITS | Clinical Summary ---
Author Organization [facility] Address [address] [place] [id number] Care Team Providers Care Sas Developer Analyst Name Role Phone Unavailable Primary Care Provider Unavailabl e Encounters Date Type Department Care Team Description 05/21/2024 5:42 PM WORK FROM HOME - 05/21/2024 11:59 PM WORK FROM HOME Hospital Encounter [facility] [place] [address] Diana Kunz DO Discharge Disposition: Home or Self Care (Routine Discharge) 05/21/2024 Orders Only [facility] [address] Diana Kunz DO from Last 3 Months [...] 2013 COVID-19 Vaccine (2023-2 5 season) 2023 Meningococcal B Vaccine Aged Out No [...] PRO-BRAIN NATRIURETIC PEPTIDE Routine 05/21/2024 2:29 PM WORK FROM HOME Anemia, unspecified Vitamin D insufficiency Acute diastolic heart failure ([facility]/HCC HHS/HCC) CBC W/DIFF AUTOMATED Routine 05/21/2024 2:29 PM WORK FROM HOME Anemia, unspecified Vitamin D insufficiency Acute diastolic heart failure (CMS/HCC HHS/HCC) COMPREHENSIVE METABOLIC PANEL Routine 05/21/2024 2:29 PM WORK FROM HOME Anemia, unspecified Vitamin D insufficiency Acute diastolic heart failure (CMS/HCC HHS/HCC) from Last 3 Months Results * (ABNORMAL) PRO-BRAIN NATRIURETIC PEPTIDE (05/21/2024 2:29 PM WORK FROM HOME) PRO-B TYPE NATRIURETIC PEPTIDE 1,336(H) <450 PG/ML 05/21/2024 6:22 PM WORK FROM HOME [facility] Comment: CUT POINTS ESTABLISHED [...] 72% FOR ACUTE CHF. 05/21/2024 2:29 PM WORK FROM HOME us Diana Kunz DO LABORATORY Final Resu lt [facility] [address] [place] [address], [place] [phone] * (ABNORMAL) COMPREHENSIVE METABOLIC PANEL (05/21/2024 2:29 PM WORK FROM HOME) GLUCOSE 126(H) 70 - 99 MG/DL 05/21/2024 6:22 PM WORK FROM HOME [facility] BUN 14 7 - 18 MG/DL 05/21/2024 6:22 PM [facility] CREATININE S/P/B 0.70 0.55 - 1.02 MG/DL 05/21/2024 6:22 PM [facility] SODIUM S/P/B 137 136 - 145 MMOL/L 05/21/2024 6:22 PM [facility] POTASSIUM S/P/B 3.6 3.5 - 5.1 MMOL/L 05/21/2024 6:22 PM [facility] CHLORIDE S/P/B 105 97 - 115 MMOL/L 05/21/2024 6:22 PM [facility] CO2 30.3 21 - 32 MMOL/L 05/21/2024 6:22 PM [facility] CALCIUM S/P/B 9.1 8.5 - 10.1 MG/DL 05/21/2024 6:22 PM [facility] BILIRUBIN TOTAL S/P/B 0.4 0.2 - 1.2 MG/DL 05/21/2024 6:22 PM [facility] Comment: THIS ASSAY IS NOT RECOMMENDED FOR PATIENTS UNDERGOING TREATMENT WITH ELTROMBOPAG DUE TO THE POTENTIAL FOR FALSELY ELEVATED RESULTS. TOTAL PROTEIN S/P/B 6.3(L) 6.4 - 8.2 G/DL 05/21/2024 6:22 PM [facility] ALBUMIN S/P/B 2.6(L) 3.4 - 5.0 G/DL 05/21/2024 6:22 PM [facility] AST 13(L) 15 - 37 U/L 05/21/2024 6:22 PM [facility] ALT 15 14 - 55 U/L 05/21/2024 6:22 PM [facility] ALKALINE PHOSPHATASE S/P/B 83 50 - 136 U/L 05/21/2024 6:22 PM WORK FROM HOME [facility] ANION GAP 1.7(L) 2 - 10 MMOL/L 05/21/2024 6:22 PM [facility] BUN CREATININE RATIO 20.0 6 - 26 05/21/2024 6:22 PM [facility] A/G RATIO 0.7(L) 1.0 - 2.0 RATIO 05/21/2024 6:22 PM [facility] GFR ESTIMATE 84(L) >90 ML/MIN/1.7 3 M2 05/21/2024 6:22 PM [facility] Comment: NOTE: eGFR is not calculated for patients <18 years of age or gender unknown. This is an estimated GFR calculation using the new CKD EPI creatinine equation without race and so does not require a correction factor for race. This estimated GFR should not be used for calculating drug doses. 05/21/2024 2:29 PM WORK FROM HOME us Diana Kunz DO LABORATORY Final Resu lt [facility] [address] [place] [address], [place] [phone] * (ABNORMAL) CBC W/DIFF AUTOMATED (05/21/2024 2:29 PM WORK FROM HOME) WBC 4.17(L) 4.5 - 11.0 x10'3/uL 05/21/2024 5:57 PM WORK FROM HOME [facility] RBC 3.31(L) 4.20 - 5.40 x10'6/uL 05/21/2024 5:57 PM WORK FROM HOME [facility] HGB 9.8(L) 12.0 - 16.0 G/DL 05/21/2024 5:57 PM WORK FROM HOME [facility] HCT 33.1(L) 38.0 - 48.0 % 05/21/2024 5:57 PM WORK FROM HOME [facility] MCV 100.0(H) 81.0 - 99.0 FL 05/21/2024 5:57 PM [facility] MCH 29.6 27.0 - 31.0 PG 05/21/2024 5:57 PM [facility] MCHC 29.6(L) 32.0 - 36.0 G/DL 05/21/2024 5:57 PM WORK FROM HOME [facility] RDW 14.6(H) 11.5 - 14.5 % 05/21/2024 5:57 PM [facility] PLT 233 130 - 400 x10'3/uL 05/21/2024 5:57 PM [facility] MPV 11.0 9.3 - 12.2 FL 05/21/2024 5:57 PM [facility] DIFFERENTIAL TYPE AUTOMATED DIFFERENTIAL 05/21/2024 5:57 PM [facility] NEUTROPHILS % 53.2 % 05/21/2024 5:57 PM [facility] LYMPHOCYTES % 34.1 % 05/21/2024 5:57 PM [facility] MONOCYTES % 10.1 % 05/21/2024 5:57 PM [facility] EOSINOPHILS 1.9 % 05/21/2024 5:57 PM [facility] BASOPHILS 0.5 % 05/21/2024 5:57 PM WORK FROM HOME [facility] IMMATURE GRANS % 0.2 % 05/21/19 5:57 PM [facility] ABS. NEUTROPHILS 2.22 1.80 - 7.70 x10'3/uL 05/21/2024 5:57 PM [facility] ABS. LYMPHOCYTES 1.42 1.00 - 4.80 x10'3/uL 05/21/2024 5:57 PM WORK FROM HOME [facility] ABS. MONOCYTES 0.42 0.24 - 0.86 x10'3/uL 05/21/2024 5:57 PM WORK FROM HOME [facility] ABS. EOSINOPHILS 0.08 0.04 - 0.36 x10'3/uL 05/21/2024 5:57 PM WORK FROM HOME [facility] ABS. BASOPHILS 0.02 0.01 - 0.08 x10'3/uL 05/21/2024 5:57 PM WORK FROM HOME [facility] ABS. IMMATURE GRANULOCYTES 0.01 0.00 - 0.49 x10'3/uL 05/21/2024 5:57 PM WORK FROM HOME [facility] 05/21/2024 2:29 PM WORK FROM HOME Diana Kunz DO LABORATORY Final Resu lt [facility] [address] [place] [address], from Last 3 Months Insurance [facility] MEDICARE
== END 2024-07-07 11:29 | disposition home or self-care (01) ==
LOC: ANHLAB 11:31
PROVIDERS: PCP Family Medicine; Visit Provider Surgery
DX: K81.9 Cholecystitis, unspecified (principal)
CPT/HCPCS: 36415; 80053; 85025

== ENCOUNTER 2024-07-08 16:02 | Outpatient (NON) | payer MEDICARE, SELFPAY ==
[2024-07-08 16:57] LABS: Anion Gap 10 mmol/L (4-12); Blood Urea Nitrogen 18 mg/dL (7-17); Calcium 8.5 mg/dL (8.4-10.2); Carbon Dioxide 31 mmol/L (22-30); Chloride 98 mmol/L (98-107); Estimated Glomerular Filt Rate > 60; Glucose 125 mg/dL (65-110); Potassium 4.5 mmol/L (3.4-5.0); Sodium 139 mmol/L (137-145)
--- OUTSIDE RECORDS SUMMARY | 2024-07-08 17:03 | XMS_ITS ---
Author Name May Carrillo Address [address] [place] [address] Phone [phone] [facility] Address [address] [place] [address] Phone [phone] Care Team Providers Care Nickel Plater Name Role Phone May Carrillo Unavailable AaliyahDiana fagan Unavailable [phone] Functional Status No Results Mental Status No Results Allergies and Intolerances Name Onset Date Reaction Severity hydrocodone (Allergy) SatJan 10 19:57:00 EDT 20 23 levofloxacin (Allergy) SatJan 10 19:57:00 EDT 2 023 alendronate sodium (Allergy) SatJan 10 19:56:00 EDT 2022 Encounters Program Name Primary Diagnosis Admission Date/Time Dis charge Date/Time Group Home Care Facility Longterm-Short Term Rehabilitation Unit SatMay 11 09:20:00 EST [...] Indication: pain SatMay 28 13:00:00 EST 2024 [facility] May 30 01:04:00 EST 2024 calcitonin (salmon) [...] 2022 * End Date: * Text: * [facility] (current) use of anticoagulants* Code: * Start [...] * Text: * 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 (12)* Code: * Start Date: SatMay 19 00:00:00 EST 2024 * End Date: * Text: [id number] Maude receiving mechanically altered diet. (12) * [...] buttock_.* Code: * Start Date: SatMay 20 00:: EST 2024 * End Date: * Text: [facility]_Skin Integrity - Maude has alteration in skin integrity. Wound type:stage 1_, wound location:__right buttock_. * [facility]_Social Services- Maude will be involved in discharge planning.* Code: * Start Date: SatMay 22 00:: EST 2024 * End Date: * Text: [facility]_Social Services- Maude will be involved in discharge planning. * [facility]_Social Services- Maude's mobility level is different than prior level due to current medical condition.* Code: * Start Date: SatMay 22 00:00:00 EST 2024 * End Date: * Text: [facility]SS_Social Services- Maude's mobility level is different than prior level due to current medical condition. * [facility]SS_Social Services- Maude has family/friends who are supportive.* Code: * Start Date: SatMay 22 00:00:00 2024 * End Date: * Text: [facility]SS_Social Services- Maude has family/friends who are supportive. * [facility]_Social Services- Maude will be involved in goal development to the best of his or her ability.* Code: * Start Date: SatMay 22 00:00:00 EST 2024 * End Date: * Text: [facility]_Social Services- Maude will be involved in goal development to the best of his or her ability. * LSS_Social Services- Maude's wishes will be followed (Advanced Directive/Code Status).* Code: * Start Date: SatMay 22 00:00:00 EST 2024 * End Date: * Text: [facility]_Social Services- Maude's wishes will be followed (Advanced Directive/Code Status). 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 Rate 79.00 /min SatJun 12 10:53 :11 ED2024 Body temperature 97.30 [degF] SatJun 12 10:5 3:11 ED2024 Respiratory rate 20.00 /min SatJun 12 10:5 3:11 ED2024 Pulse Oximetry 96.00 % SatJun 12 10:53 :11 EDT 2024 Systolic Blood Pressure 140.00 mm[Hg] Sat 14 09:32:53 EDT 2024 Diastolic Blood Pressure 78.00 mm[Hg] Sat 14 09:32:53 EDT 2024 Heart Rate 79.00 /min Sat 14 09:32 :53 EDT 5 Systolic Blood Pressure 140.00 mm[Hg] Sat 14 01:52:34 EDT 2024 Diastolic Blood Pressure 71.00 mm[Hg] Sat 14 01:52:34 EDT 2024 Heart Rate 85.00 /min Sat 14 01:52 :34 EDT 2024 Body temperature 98.10 [degF] Sat 14 01:5 2:34 EDT 2024 Respiratory rate 18.00 /min Sat 14 01:5 2:34 EDT 2024 Pulse Oximetry 94.00 % Sat 14 01:52 :34 EDT 2024 Body weight 171.20 [lb_av] Rosa Mmay 13 16:10 :36 EDT 2024 Systolic Blood Pressure 118.00 mm[Hg] Rosa Mmay 13 09:48:55 EDT 2024 Diastolic Blood Pressure 72.00 mm[Hg] Rosa Mmay 13 09:48:55 EDT 2024 Heart Rate 114.00 /min Rosa Mmay 13 09:48 :55 EDT 2024 Body temperature 97.90 [degF] Rosa Mmay 13 09:4 8:55 EDT 2024 Respiratory rate 16.00 /min Rosa Mmay 13 09:4 8:55 EDT 2024 Pulse Oximetry 94.00 % [facility] May 13 09:48 :55 EDT 2024 Systolic Blood Pressure 118.00 mm[Hg] Rosa Mmay 13 09:09:32 EDT 2024 Diastolic Blood Pressure 72.00 mm[Hg] Rosa Mmay 13 09:09:32 EDT 2024 Heart Rate 114.00 /min [facility] May 13 09:09 :32 EDT 2024 Systolic Blood Pressure 150.00 mm[Hg] Rosa Mmay 13 00:15:26 EDT 2024 Diastolic Blood Pressure 73.00 mm[Hg] Rosa Mmay 13 00:15:26 EDT 2024 Heart Rate 84.00 /min Rosa M May 13 00:15 :26 EDT 2024 Body temperature 98.10 [degF] [facility] May 13 00:1 5:26 EDT 2024 Respiratory rate 16.00 /min SatJun 11 00:1 5:26 EDT 2024 Pulse Oximetry 95.00 % SatJun 11 00:15 :26 EDT 2024 Body weight 169.80 [lb_av] SatJun [...] [degF] SatJun 10 08:3 1:51 EDT 2024 Respiratory rate 16.00 /min SatJun 10 08:3 1:51 EDT 2024 Pulse Oximetry 97.00 % SatJun 10 08:31 :51 EDT 2024 Systolic Blood Pressure 142.00 mm[Hg] SatJun 09 23:35:41 EDT 2024 Diastolic Blood Pressure 61.00 mm[Hg] SatJun 09 23:35:41 EDT 2024 Heart Rate 88.00 /min SatJun 09 23:35 :41 EDT 2024 Body temperature 97.90 [degF] SatJun 09 23:3 5:41 EDT 2024 Respiratory rate 18.00 /min SatJun 09 23:3 5:41 EDT 2024 Pulse Oximetry 95.00 % SatJun 09 23:35 :41 EDT 2024 Systolic Blood Pressure 150.00 mm[Hg] SatJun 09 18:05:59 EDT 2024 Diastolic Blood Pressure 78.00 mm[Hg] SatJun 09 18:05:59 EDT 2024 Heart Rate 88.00 /min SatJun 09 18:05 :59 EDT 2024 Body temperature 97.80 [degF] SatJun 09 18:0 5:59 EDT 2024 Respiratory rate 18.00 /min SatJun 09 18:0 5:59 EDT 2024 Pulse Oximetry 97.00 % SatJun 09 18:05 :59 EDT 5 Body weight 176.60 [lb_av] SatJun 09 17:55 :10 EDT 5 Systolic Blood Pressure 141.00 mm[Hg] SatJun 08 23:07:50 EDT 5 Diastolic Blood Pressure 63.00 mm[Hg] SatJun 08 23:07:50 EDT 2024 Heart Rate 80.00 /min SatJun 08 23:07 :50 EDT 2024 Body temperature 98.00 [degF] SatJun 08 23:0 7:50 EDT 2024 Respiratory rate 18.00 /min SatJun 08 23:0 7:50 EDT 2024 Pulse Oximetry 97.00 % SatJun 08 23:07 :50 EDT 2024 Body weight 177.10 [lb_av] SatJun 08 13:19 :52 EDT 2024 Systolic Blood Pressure 179.00 mm[Hg] SatJun 08 11:05:38 EDT 2024 Diastolic Blood Pressure 83.00 mm[Hg] SatJun 08 11:05:38 EDT 2024 Heart Rate 82.00 /min SatJun 08 11:05 :38 EDT 2024 Body temperature 97.30 [degF] SatJun 08 11:0 5:38 EDT 2024 Respiratory rate 18.00 /min SatJun 08 11:0 5:38 EDT 2024 Pulse Oximetry 94.00 % SatJun 08 11:05 :38 EDT 2024 Systolic Blood Pressure 179.00 mm[Hg] SatJun 08 09:49:14 EDT 2024 Diastolic Blood Pressure 83.00 mm[Hg] SatJun 08 09:49:14 EDT 2024 Heart Rate 82.00 /min SatJun 08 09:49 :14 EDT 2024 Systolic Blood Pressure 124.00 mm[Hg] SatJun 08 01:08:22 EDT 2024 Diastolic Blood Pressure 71.00 mm[Hg] SatJun 08 01:08:22 EDT 2024 Heart Rate 79.00 /min SatJun 08 01:08 :22 EDT 2024 Body temperature 97.50 [degF] SatJun 08 01:0 8:22 EDT 2024 Respiratory rate 16.00 /min SatJun 08 01:0 8:22 EDT 2024 Pulse Oximetry 96.00 % SatJun 08 01:08 :22 EDT 2024 Systolic Blood Pressure 166.00 mm[Hg] SatJun 07 18:24:52 EDT 2024 Diastolic Blood Pressure 78.00 mm[Hg] Sun Jun 07 18:24:52 EDT 2024 Body weight 175.30 [lb_av] Sun Jun 07 18:24 :52 EDT 2024 Heart Rate 79.00 /min SatJun 07 18:24 :52 EDT 2024 Body temperature 97.70 [degF] Sun Jun 07 18:2 4:52 EDT 2024 Respiratory rate 20.00 /min Sun Jun 07 18:2 4:52 EDT 2024 Pulse Oximetry 98.00 % SatJun 07 18:24 :52 EDT 2024 Systolic Blood Pressure 166.00 mm[Hg] SatJun 07 10:47:49 EDT 2024 Diastolic Blood Pressure 78.00 mm[Hg] Sun Jun 07 10:47:49 EDT 2024 Heart Rate 79.00 /min SatJun 07 10:47 :49 EDT 2024 Systolic Blood Pressure 129.00 mm[Hg] Sat Jun 06 23:42:57 EST 2024 Diastolic Blood Pressure 67.00 mm[Hg] Sat Jun 06 23:42:57 EST 2024 Heart Rate 78.00 /min Sat Jun 06 23:42 :57 EST 2024 Body temperature 97.50 [degF] Sat Jun 06 23:4 2:57 EST 2024 Respiratory rate 18.00 /min Sat Jun 06 23:4 2:57 EST 2024 Pulse Oximetry 95.00 % Sat Jun 06 23:42 :57 EST 2024 Body weight 174.90 [lb_av] Sat May 08 15:57 :03 EST 2024 Systolic Blood Pressure 146.00 mm[Hg] Sat May 08 10:54:56 EST 2024 Diastolic Blood Pressure 84.00 mm[Hg] Sat Jun 06 10:54:56 EST 5 Heart Rate 76.00 /min Sat May 08 10:54 :56 EST 2024 Body temperature 97.50 [degF] Sat May 08 10:5 4:56 EST 2024 Respiratory rate 20.00 /min Sat May 08 10:5 4:56 EST 2024 Pulse Oximetry 95.00 % Sat May 08 10:54 :56 EST 2024 Systolic Blood Pressure 146.00 mm[Hg] Sat May 08 09:40:02 EST 2024 Diastolic Blood Pressure 84.00 mm[Hg] Sat May 08 09:40:02 EST 2024 Heart Rate 76.00 /min Sat May 08 09:40 :02 EST 2024 Systolic Blood Pressure 139.00 mm[Hg] Sat 08 01:03:16 EST 2024 Diastolic Blood Pressure 80.00 mm[Hg] Sat 08 01:03:16 EST 2024 Heart Rate 74.00 /min Sat 08 01:03 :16 EST 2024 Body temperature 97.80 [degF] SatJun 06 01:0 3:16 EST 2024 Respiratory rate 18.00 /min SatJun 06 01:0 3:16 EST 2024 Pulse Oximetry 98.00 % SatJun 06 01:03 :16 EST 2024 Body weight 174.20 [lb_av] SatJun 05 13:09 :22 EST 2024 Systolic Blood Pressure 147.00 mm[Hg] SatJun 05 09:23:28 EST 2024 Diastolic Blood Pressure 85.00 mm[Hg] SatJun 05 09:23:28 EST 2024 Heart Rate 77.00 /min SatJun 05 09:23 :28 EST 2024 Body temperature 98.20 [degF] SatJun 05 09:2 3:28 EST 2024 Respiratory rate 20.00 /min SatJun 05 09:2 3:28 EST 2024 Pulse Oximetry 95.00 % SatJun 05 09:23 :28 EST 2024 Systolic Blood Pressure 147.00 mm[Hg] SatJun 05 09:22:11 EST 2024 Diastolic Blood Pressure 85.00 mm[Hg] SatJun 05 09:22:11 EST 2024 Heart Rate 77.00 /min SatJun 05 09:22 :11 EST 2024 Systolic Blood Pressure 160.00 mm[Hg] SatJun 04 23:29:34 EST 2024 Diastolic Blood Pressure 88.00 mm[Hg] SatJun 04 23:29:34 EST 2024 Heart Rate 86.00 /min SatJun 04 23:29 :34 EST 2024 Body temperature 97.50 [degF] SatJun 04 23:2 9:34 EST 2024 Respiratory rate 18.00 /min SatJun 04 23:2 9:34 EST 2024 Pulse Oximetry 94.00 % SatJun 04 23:29 :34 EST 2024 Body weight 175.60 [lb_av] SatJun 04 13:07 :52 EST 2024 Systolic Blood Pressure 142.00 mm[Hg] SatJun 04 09:05:33 EST 2024 Diastolic Blood Pressure 69.00 mm[Hg] Sat 06 09:05:33 EST 2024 Systolic Blood Pressure 142.00 mm[Hg] Sat 06 09:05:33 EST 2024 Diastolic Blood Pressure 69.00 mm[Hg] Sat 06 09:05:33 EST 2024 Heart Rate 84.00 /min Sat 06 09:05 :33 EST 2024 Heart Rate 84.00 /min Sat 06 09:05 :33 EST 2024 Body temperature 97.60 [degF] SatJun 04 09:0 5:33 EST 2024 Respiratory rate 18.00 /min SatJun 04 09:0 5:33 EST 2024 Pulse Oximetry 95.00 % SatJun 04 09:05 :33 EST 2024 Systolic Blood Pressure 151.00 mm[Hg] SatJun 03 23:00:22 EST 2024 Diastolic Blood Pressure 81.00 mm[Hg] SatJun 03 23:00:22 EST 2024 Heart Rate 83.00 /min SatJun 03 23:00 :22 EST 2024 Body temperature 97.30 [degF] SatJun 03 23:0 0:22 EST 2024 Respiratory rate 18.00 /min SatJun 03 23:0 0:22 EST 2024 Pulse Oximetry 97.00 % SatJun 03 23:00 :22 EST 2024 Body weight 178.20 [lb_av] SatJun [...] /min SatJun 03 09:07 :24 EST 2024 Body temperature 97.60 [degF] SatJun 03 09:0 7:24 EST 2024 Respiratory rate 18.00 /min SatJun 03 09:0 7:24 EST 2024 Pulse Oximetry 92.00 % SatJun 03 09:07 :24 EST 2024 Systolic Blood Pressure 152.00 mm[Hg] SatJun 03 00:25:43 EST 2024 Diastolic Blood Pressure 68.00 mm[Hg] SatJun 03 00:25:43 EST 2024 Heart Rate 84.00 /min SatJun 03 00:25 :43 EST 2024 Body temperature 97.80 [degF] SatJun 03 00:2 5:43 EST 2024 Respiratory rate 18.00 /min SatJun 03 00:2 5:43 EST 2024 Pulse Oximetry 93.00 % SatJun 03 00:25 :43 EST 2024 Systolic Blood Pressure 160.00 mm[Hg] SatJun 02 10:43:02 EST 2024 Diastolic Blood Pressure 77.00 mm[Hg] SatJun 02 10:43:02 EST 2024 Heart Rate 83.00 /min SatJun 02 10:43 :02 EST 2024 Body temperature 98.60 [degF] SatJun 02 10:4 3:02 EST 2024 Respiratory rate 18.00 /min SatJun 02 10:4 3:02 EST 2024 Pulse Oximetry 93.00 % SatJun 02 10:43 :02 EST 2024 Systolic Blood Pressure 160.00 mm[Hg] SatJun 02 09:50:19 EST 2024 Diastolic Blood Pressure 77.00 mm[Hg] SatJun 02 09:50:19 EST 2024 Heart Rate 83.00 /min SatJun 02 09:50 :19 EST 2024 Systolic Blood Pressure 136.00 mm[Hg] SatJun 02 01:35:52 EST 2024 Diastolic Blood Pressure 63.00 mm[Hg] SatJun 02 01:35:52 EST 2024 Heart Rate 70.00 /min SatJun 02 01:35 :52 EST 2024 Body temperature 98.40 [degF] SatJun 02 01:3 5:52 EST 2024 Respiratory rate 16.00 /min SatJun 02 01:3 5:52 EST 2024 Pulse Oximetry 94.00 % SatJun 02 01:35 :52 EST 2024 Body weight 180.60 [lb_av] SatJun 01 11:33 :41 EST 2024 Systolic Blood Pressure 155.00 mm[Hg] SatJun 01 10:03:14 EST 2024 Diastolic Blood Pressure 69.00 mm[Hg] SatJun 01 10:03:14 EST 2024 Systolic Blood Pressure 155.00 mm[Hg] SatJun 01 10:03:14 EST 2024 Diastolic Blood Pressure 69.00 mm[Hg] Sat 03 10:03:14 EST 2024 Heart Rate 79.00 /min Mon Jun 01 10:03 :14 EST 2024 Heart Rate 79.00 /min Mon May 03 10:03 :14 EST 2024 Body temperature 98.20 [degF] Mon Jun 01 10:0 3:14 EST 2024 Respiratory rate 18.00 /min Mon Jun 01 10:0 3:14 EST 2024 Pulse Oximetry 96.00 % SatJun 01 10:03 :14 EST 2024 Systolic Blood Pressure 137.00 mm[Hg] Sun Mar 02 23:07:31 EST 2024 Diastolic Blood Pressure 61.00 mm[Hg] Sun Mar 02 23:07:31 EST 2024 Heart Rate 72.00 /min Sun Mar 02 23:07 :31 EST 2024 Body temperature 97.60 [degF] Sun May 31 23:0 7:31 EST 2024 Respiratory rate 18.00 /min Sun May 31 23:0 7:31 EST 2024 Pulse Oximetry 99.00 % Sun May 31 23:07 :31 EST 2024 Systolic Blood Pressure 137.00 mm[Hg] Sun Mar 02 10:15:23 EST 2024 Diastolic Blood Pressure 77.00 mm[Hg] Sun Mar 02 10:15:23 EST 2024 Heart Rate 69.00 /min Sun May 02 10:15 :23 EST 2024 Body temperature 97.60 [degF] Sun May 31 10:1 5:23 EST 2024 Respiratory rate 18.00 /min Sun May 02 10:1 5:23 EST 2024 Pulse Oximetry 99.00 % Sun May 02 10:15 :23 EST 2024 Systolic Blood Pressure 137.00 mm[Hg] Sun Mar 02 10:14:20 EST 2024 Diastolic Blood Pressure 77.00 mm[Hg] Sun Mar 02 10:14:20 EST 2024 Heart Rate 69.00 /min Sun Mar 02 10:14 :20 EST 2024 Systolic Blood Pressure 142.00 mm[Hg] Sun Mar 02 03:48:16 EST 2024 Diastolic Blood Pressure 59.00 mm[Hg] Sun Mar 02 03:48:16 EST 5 Heart Rate 81.00 /min Sun Mar 02 03:48 :16 EST 2024 Body temperature 98.00 [degF] Sun Mar 02 03:4 8:16 EST 5 Respiratory rate 16.00 /min Sun Mar 02 03:4 8:16 EST 2025 Pulse Oximetry 95.00 % [place] May 31 03:48 :16 EST 2024 Systolic Blood Pressure 150.00 mm[Hg] SatMay 30 14:36:01 EST 2024 Diastolic Blood Pressure 77.00 mm[Hg] SatMay 30 14:36:01 EST 2024 Heart Rate 77.00 /min SatMay 30 14:36 :01 EST 2024 Body temperature 97.30 [degF] SatMay 30 14:3 6:01 EST 2024 Respiratory rate 18.00 /min SatMay 30 14:3 6:01 EST 2024 Pulse Oximetry 91.00 % SatMay 30 14:36 :01 EST 2024 Systolic Blood Pressure 150.00 mm[Hg] SatMay 30 09:59:14 EST 2024 Diastolic Blood Pressure 17.00 mm[Hg] SatMay 30 09:59:14 EST 2024 Heart Rate 77.00 /min SatMay 30 09:59 :14 EST 2024 Systolic Blood Pressure 120.00 mm[Hg] Satb 23:47:19 EST 2024 Diastolic Blood Pressure 54.00 mm[Hg] SatMay 29 23:47:19 EST 2024 Heart Rate 68.00 /min SatMay 29 23:47 :19 2024 Body temperature 97.40 [degF] Satb 23:4 7:19 2024 Respiratory rate 18.00 /min SatMay 29 23:4 7:19 2024 Pulse Oximetry 94.00 % SatMay 29 23:47 :19 2024 Body weight 179.20 [lb_av] SatMay 29 15:37 :42 2024 Systolic Blood Pressure 137.00 mm[Hg] SatMay 29 10:42:45 EST 2024 Diastolic Blood Pressure 70.00 mm[Hg] Satb 10:42:45 EST 2024 Heart Rate 78.00 /min SatMay 29 10:42 :45 EST 2024 Body temperature 98.20 [degF] SatMay 29 10:4 2:45 EST 2024 Respiratory rate 20.00 /min SatMay 29 10:4 2:45 EST 2024 Pulse Oximetry 91.00 % SatMay 29 10:42 :45 EST 2024 Systolic Blood Pressure 137.00 mm[Hg] [...] M Feb 27 23:22 :43 EST 2024 Body temperature 97.70 [degF] Rosa M Feb 27 23:2 2:43 EST 5 Respiratory rate 18.00 /min Rosa M Feb 27 23:2 2:43 EST 2024 Pulse Oximetry 96.00 % Rosa M Feb 27 23:22 :43 EST 2024 Body weight 179.10 [lb_av] Rosa M Feb 27 17:11 :37 EST 2024 Systolic Blood Pressure 143.00 mm[Hg] Rosa M Feb 27 10:47:41 EST 2024 Diastolic Blood Pressure 78.00 mm[Hg] Rosa M Feb 27 10:47:41 EST 2024 Heart Rate 79.00 /min Rosa M Feb 27 10:47 :41 EST 2024 Body temperature 98.30 [degF] Rosa M Feb 27 10:4 7:41 EST 2024 Respiratory rate 20.00 /min Rosa M Feb 27 10:4 7:41 EST 2024 Pulse Oximetry 94.00 % Rosa M Feb 27 10:47 :41 EST 2024 Systolic Blood Pressure 143.00 mm[Hg] Rosa M Feb 27 09:35:42 EST 2024 Diastolic Blood Pressure 78.00 mm[Hg] Rosa M Feb 27 09:35:42 EST 2024 Heart Rate 79.00 /min Rosa M Feb 27 09:35 :42 EST 2024 Systolic Blood Pressure 134.00 mm[Hg] Wed Feb 26 22:21:54 EST 5 Diastolic Blood Pressure 63.00 mm[Hg] Wed Feb 26 22:21:54 EST 5 Heart Rate 77.00 /min Wed Feb 26 22:21 :54 EST 2024 Body temperature 98.10 [degF] Wed [...] [degF] Wed Feb 26 11:5 7:05 EST 5 Respiratory rate 18.00 /min Wed Feb 26 11:5 7:05 EST 2024 Pulse Oximetry 98.00 % Wed Feb 26 11:57 :05 EST 2024 Systolic Blood Pressure 149.00 mm[Hg] Wed Feb 26 09:10:27 EST 2024 Diastolic Blood Pressure 68.00 mm[Hg] Wed Feb 26 09:10:27 EST 2024 Heart Rate 79.00 /min Wed Feb 26 09:10 :27 EST 2024 Systolic Blood Pressure 148.00 mm[Hg] Wed Feb 26 02:15:07 EST 5 Diastolic Blood Pressure 75.00 mm[Hg] Wed Feb 26 02:15:07 EST 2024 Heart Rate 79.00 /min Wed Feb 26 02:15 :07 EST 2024 Body temperature 98.40 [degF] Wed Feb 26 02:1 5:07 EST 2024 Respiratory rate 18.00 /min Wed Feb 26 02:1 5:07 EST 2024 Pulse Oximetry 97.00 % Wed Feb 02:15 :07 EST 2024 Body weight 179.20 [lb_av] Sat Feb 14:17 :38 EST 2024 Systolic Blood Pressure 152.00 mm[Hg] e Feb 09:03:58 EST 2024 Diastolic Blood Pressure 80.00 mm[Hg] e Feb 09:03:58 EST 2024 Heart Rate 76.00 /min Sat Feb 09:03 :58 EST 2024 Body temperature 98.20 [degF] e Feb 09:0 3:58 EST 5 Respiratory rate 18.00 /min e Feb 09:0 3:58 EST 2024 Pulse Oximetry 93.00 % Sat Feb 09:03 :58 EST 2024 Systolic Blood Pressure 152.00 mm[Hg] Satb 08:33:30 EST 5 Diastolic Blood Pressure 80.00 mm[Hg] Satb 08:33:30 EST 2024 Heart Rate 76.00 /min Satb 08:33 :30 EST 5 Systolic Blood Pressure 146.00 mm[Hg] Satb 00:19:27 EST 5 Diastolic Blood Pressure 63.00 mm[Hg] Sat Feb 00:19:27 EST 2025 Heart Rate 73.00 /min Satb 00:19 :27 EST 2025 Body temperature 97.80 [degF] Satb 00:1 9:27 EST 2024 Respiratory rate 18.00 /min Sat Feb 00:1 9:27 EST 2024 Pulse Oximetry 95.00 % SatMay 26 00:19 :27 EST 2024 Body weight 181.30 [lb_av] Sat Feb 09:32 :44 EST 2024 Systolic Blood Pressure 142.00 mm[Hg] Sat Feb 09:03:45 EST 5 Diastolic Blood Pressure 73.00 mm[Hg] Sat Feb 09:03:45 EST 5 Heart Rate 82.00 /min Sat Feb 24 09:03 :45 EST 2024 Systolic Blood Pressure 142.00 mm[Hg] Sat Feb 08:35:58 EST 5 Diastolic Blood Pressure 79.00 mm[Hg] Sat Feb 08:35:58 EST 5 Heart Rate 82.00 /min Sat Feb 24 08:35 :58 EST 2024 Body temperature 97.80 [degF] Sat Feb 08:3 5:58 EST 2025 Respiratory rate 20.00 /min Sat Feb 08:3 5:58 EST 2025 Pulse Oximetry 95.00 % Sat Feb 24 08:35 :58 EST 2025 Systolic Blood Pressure 162.00 mm[Hg] Mon Feb 24 00:15:59 EST 5 Diastolic Blood Pressure 75.00 mm[Hg] Sat Feb 24 00:15:59 EST 2025 Heart Rate 77.00 /min Sat Feb 24 00:15 :59 EST 2025 Body temperature 98.20 [degF] Mon Feb 24 00:1 5:59 EST 2025 Respiratory rate 20.00 /min Sat Feb 24 00:1 5:59 EST 2025 Pulse Oximetry 93.00 % Mon Feb 24 00:15 :59 EST 5 Body weight 181.20 [lb_av] Sun Feb 23 17:03 :09 EST 2024 Systolic Blood Pressure 131.00 mm[Hg] Sun Feb 09:44:13 EST 2024 Diastolic Blood Pressure 64.00 mm[Hg] Sun Feb 09:44:13 EST 2024 Heart Rate 70.00 /min Sun Feb 09:44 :13 EST 2024 Body temperature 98.20 [degF] Sun Feb 09:4 4:13 EST 5 Respiratory rate 18.00 /min Sun Feb 09:4 4:13 EST 2024 Pulse Oximetry 93.00 % Sun Feb 09:44 :13 EST 2024 Systolic Blood Pressure 131.00 mm[Hg] Sun Feb 09:18:06 EST 2024 Diastolic Blood Pressure 64.00 mm[Hg] Sun Feb 09:18:06 EST 2024 Heart Rate 70.00 /min Sun Feb 09:18 :06 EST 2024 Systolic Blood Pressure 138.00 mm[Hg] Sun Feb 01:24:44 EST 5 Diastolic Blood Pressure 58.00 mm[Hg] Sun Feb 01:24:44 EST 2024 Heart Rate 73.00 /min Sun Feb 01:24 :44 EST 2024 Body temperature 97.80 [degF] Sun Feb 01:2 4:44 EST 5 Respiratory rate 18.00 /min Sun Feb 01:2 4:44 EST 2024 Pulse Oximetry 96.00 % Sun Feb 01:24 :44 EST 5 Systolic Blood Pressure 112.00 mm[Hg] Sat Feb 22 10:13:54 EST 5 Diastolic Blood Pressure 64.00 mm[Hg] Sat Feb 22 10:13:54 EST 5 Heart Rate 68.00 /min Sat Feb 22 10:13 :54 EST 5 Body temperature 97.80 [degF] Sat Feb 22 10:1 3:54 EST 2025 Respiratory rate 18.00 /min Sat Feb 22 10:1 3:54 EST 5 Pulse Oximetry 94.00 % Sat Feb 22 10:13 :54 EST 5 Systolic Blood Pressure 112.00 mm[Hg] Sat Feb 22 09:03:52 EST 5 Diastolic Blood Pressure 64.00 mm[Hg] Sat Feb 22 09:03:52 EST 2024 Heart Rate 68.00 /min Sat Feb 22 09:03 :52 EST 2024 Systolic Blood Pressure 100.00 mm[Hg] Sat Feb 22 03:18:59 EST 2024 Diastolic Blood Pressure 86.00 mm[Hg] Sat Feb 22 03:18:59 EST 2024 Heart Rate 72.00 /min Sat Feb 22 03:18 :59 EST 2024 Body temperature 98.00 [degF] Sat Feb 22 03:1 8:59 EST 5 Respiratory rate 20.00 /min Sat Feb 22 03:1 8:59 EST 2024 Pulse Oximetry 95.00 % Sat Feb 03:18 :59 EST 2024 Body weight 181.40 [lb_av] Sat [...] [degF] Sat Feb 09:4 5:57 EST 2024 Respiratory rate 18.00 /min Sat Feb 09:4 5:57 EST 2024 Pulse Oximetry 94.00 % Sat Feb 09:45 :57 EST 2024 Systolic Blood Pressure 126.00 mm[Hg] Sat Feb 00:02:02 EST 5 Diastolic Blood Pressure 61.00 mm[Hg] Sat Feb 00:02:02 EST 2024 Heart Rate 70.00 /min Sat Feb 00:02 :02 EST 2024 Body temperature 97.30 [degF] Sat Feb 00:0 2:02 EST 5 Respiratory rate 18.00 /min Sat Feb 00:0 2:02 EST 2024 Pulse Oximetry 97.00 % Sat Feb 00:02 :02 EST 2024 Body weight 180.00 [lb_av] Rosa M Feb 20 11:39 :56 EST 2024 Systolic Blood Pressure 135.00 mm[Hg] Rosa M Feb 20 10:18:42 EST 2024 Diastolic Blood Pressure 93.00 mm[Hg] Rosa M Feb 20 10:18:42 EST 5 Systolic Blood Pressure 135.00 mm[Hg] Rosa M Feb 20 10:18:42 EST 2024 Diastolic Blood Pressure 93.00 mm[Hg] Rosa M Feb 20 10:18:42 EST 5 Heart Rate 72.00 /min Rosa M Feb 20 10:18 :42 EST 2024 Heart Rate 72.00 /min Rosa M Feb 20 10:18 :42 EST 2024 Body temperature 97.70 [degF] Rosa M Feb 20 10:1 8:42 EST 2024 Respiratory rate 18.00 /min Rosa M Feb 20 10:1 8:42 EST 2024 Pulse Oximetry 97.00 % Rosa M Feb 20 10:18 :42 EST 2024 Systolic Blood Pressure 109.00 mm[Hg] Rosa M Feb 20 03:14:49 EST 2024 Diastolic Blood Pressure 53.00 mm[Hg] Rosa M Feb 20 03:14:49 EST 2024 Heart Rate 64.00 /min Rosa M Feb 20 03:14 :49 EST 2024 Body temperature 97.90 [degF] Rosa M Feb 20 03:1 4:49 EST 2024 Respiratory rate 18.00 /min Rosa M Feb 20 03:1 4:49 EST 2024 Pulse Oximetry 96.00 % Rosa M Feb 20 03:14 :49 EST 2024 Body weight 180.00 [lb_av] Wed [...] 5 Body temperature 97.40 [degF] Wed Feb 09:5 7:46 EST 5 Respiratory rate 18.00 /min Wed Feb 19 09:5 7:46 EST 5 Pulse Oximetry 96.00 % Wed Feb 19 09:57 :46 EST 5 Systolic Blood Pressure 146.00 mm[Hg] e Feb 18 21:27:31 EST 5 Diastolic Blood Pressure 63.00 mm[Hg] e Feb 18 21:27:31 EST 2025 Heart Rate 69.00 /min e Feb 18 21:27 :31 EST 2025 Body temperature 97.80 [degF] e Feb 18 21:2 7:31 EST 5 Respiratory rate 18.00 /min e Feb 18 21:2 7:31 EST 2024 Pulse Oximetry 94.00 % e Feb 18 21:27 :31 EST 2024 Body temperature 97.10 [degF] e Feb 18 [...] [degF] e Feb 18 09:2 9:54 EST 5 Respiratory rate 16.00 /min e Feb 18 09:2 9:54 EST 2024 Pulse Oximetry 93.00 % Satb 18 09:29 :54 EST 5 Systolic Blood Pressure 119.00 mm[Hg] [...] Sat Feb 18 02:5 7:12 EST 2024 Respiratory rate 18.00 /min Sat Feb 18 02:5 7:12 EST 2024 Pulse Oximetry 94.00 % Sat Feb 18 02:57 :12 EST 2024 Body weight 177.40 [lb_av] Sat Feb 17 10:51 :19 EST 5 Systolic Blood Pressure 121.00 mm[Hg] Mon Feb 17 10:32:33 EST 5 Diastolic Blood Pressure 73.00 mm[Hg] Mon Feb 17 10:32:33 EST 5 Heart Rate 73.00 /min Mon Feb 17 10:32 :33 EST 2024 Body temperature 97.30 [degF] Mon Feb 17 10:3 2:33 EST 2024 Respiratory rate 16.00 /min Mon Feb 17 10:3 2:33 EST 2024 Pulse Oximetry 96.00 % Sat Feb 17 10:32 :33 EST 5 Systolic Blood Pressure 121.00 mm[Hg] [...] Mon Feb 17 00:0 8:31 EST 5 Respiratory rate 16.00 /min Mon Feb 17 00:0 8:31 EST 5 Pulse Oximetry 95.00 % Mon Feb 17 00:08 :31 EST 5 Body weight 178.00 [lb_av] Sun Feb 16 14:09 :39 EST 5 Systolic Blood Pressure 117.00 mm[Hg] Sun Feb 16 10:16:27 EST 5 Diastolic Blood Pressure 52.00 mm[Hg] Sun Feb 16 10:16:27 EST 2025 Heart Rate 64.00 /min Sun Feb 16 10:16 :27 EST 5 Body temperature 97.60 [degF] Sun Feb 16 10:1 6:27 EST 2025 Respiratory rate 16.00 /min Sun Feb 16 10:1 6:27 EST 2025 Pulse Oximetry 91.00 % Sun Feb 16 10:16 :27 EST 5 Systolic Blood Pressure 117.00 mm[Hg] [...] [degF] Sat Feb 15 23:0 3:29 EST 2025 Respiratory rate 18.00 /min Sat Feb 15 23:0 3:29 EST 5 Pulse Oximetry 96.00 % Sat Feb 15 23:03 :29 EST 2025 Body weight 178.20 [lb_av] Sat Feb 15 [...] Sat Feb 15 09:5 5:42 EST 2025 Respiratory rate 16.00 /min Sat Feb 15 09:5 5:42 EST 2025 Pulse Oximetry 92.00 % Sat Feb 15 09:55 :42 EST 2025 Systolic Blood Pressure 121.00 mm[Hg] Fri Feb 14 22:24:57 EST 2025 Diastolic Blood Pressure 59.00 mm[Hg] Fri Feb 14 22:24:57 EST 2025 Heart Rate 72.00 /min Fri Feb 14 22:24 :57 EST 2025 Body temperature 97.70 [degF] Fri Feb 14 22:2 4:57 EST 2024 Respiratory rate 16.00 /min Fri Feb 14 22:2 4:57 EST 2024 Pulse Oximetry 96.00 % Sat Feb 14 22:24 :57 EST 2024 Body weight 179.20 [lb_av] Fri Feb 14 13:46 :08 EST 2024 Systolic Blood Pressure 121.00 mm[Hg] Fri Feb 14 09:26:24 EST 2024 Diastolic Blood Pressure 60.00 mm[Hg] Fri Feb 14 09:26:24 EST 5 Systolic Blood Pressure 121.00 mm[Hg] Fri Feb 14 09:26:24 EST 2024 Diastolic Blood Pressure 60.00 mm[Hg] Fri Feb 14 09:26:24 EST 2024 Heart Rate 68.00 /min Sat Feb 14 09:26 :24 EST 2024 Heart Rate 68.00 /min Fri Feb 14 09:26 :24 EST 2024 Body temperature 97.60 [degF] Sat Feb 14 09:2 6:24 EST 2024 Respiratory rate 18.00 /min Sat Feb 14 09:2 6:24 EST 2024 Pulse Oximetry 97.00 % Sat Feb 14 09:26 :24 EST 2024 Systolic Blood Pressure 143.00 mm[Hg] Rsoa M Feb 13 22:01:41 EST 2024 Diastolic Blood Pressure 61.00 mm[Hg] Rosa M Feb 13 22:01:41 EST 2024 Heart Rate 62.00 /min Rosa M Feb 13 22:01 :41 EST 2024 Body temperature 97.80 [degF] Rosa M Feb 13 22:0 1:41 EST 2024 Respiratory rate 18.00 /min Rosa M Feb 13 22:0 1:41 EST 2024 Pulse Oximetry 96.00 % Rosa M Feb 13 22:01 :41 EST 2024 Body weight 178.40 [lb_av] Rosa M Feb 13 11:08 :53 EST 2024 Systolic Blood Pressure 177.00 mm[Hg] Rosa M Feb 13 09:30:38 EST 5 Diastolic Blood Pressure 91.00 mm[Hg] Rosa M Feb 13 09:30:38 EST 5 Heart Rate 79.00 /min Rosa M Feb 13 09:30 :38 EST 2024 Body temperature 97.50 [degF] Rosa M Feb 13 09:3 0:38 EST 5 Respiratory rate 18.00 /min Rosa M Feb 13 09:3 0:38 EST 5 Pulse Oximetry 92.00 % Rosa M Feb 13 09:30 :38 EST 5 Systolic Blood Pressure 177.00 mm[Hg] Rosa M Feb 13 09:25:07 EST 5 Diastolic Blood Pressure 91.00 mm[Hg] Rosa M Feb 13 09:25:07 EST 2025 Heart Rate 79.00 /min Rosa M Feb 13 09:25 :07 EST 5 Systolic Blood Pressure 150.00 mm[Hg] Wed Feb 12 20:19:26 EST 5 Diastolic Blood Pressure 60.00 mm[Hg] Wed Feb 12 20:19:26 EST 5 Heart Rate 67.00 /min Wed Feb 12 20:19 :26 EST 5 Body temperature 98.00 [degF] Wed Feb 12 20:1 9:26 EST 5 Respiratory rate 18.00 /min Wed Feb 12 20:1 9:26 EST 2024 Pulse Oximetry 95.00 % Wed Feb 12 20:19 :26 EST 5 Body weight 178.40 [lb_av] Wed Feb 12 11:46 :21 EST 5 Systolic Blood Pressure 126.00 mm[Hg] Wed Feb 12 10:03:54 EST 2025 Diastolic Blood Pressure 58.00 mm[Hg] Wed Feb 12 10:03:54 EST 2025 Heart Rate 69.00 /min Wed Feb 12 10:03 :54 EST 2025 Body temperature 97.40 [degF] Wed Feb 12 10:0 3:54 EST 2025 Respiratory rate 20.00 /min Wed Feb 12 10:0 3:54 EST 5 Pulse Oximetry 93.00 % Wed Feb 12 10:03 :54 EST 5 Systolic Blood Pressure 126.00 mm[Hg] Wed Feb 12 09:18:35 EST 5 Diastolic Blood Pressure 58.00 mm[Hg] Wed Feb 12 09:18:35 EST 2025 Heart Rate 69.00 /min Wed Feb 12 09:18 :35 EST 5 Systolic Blood Pressure 153.00 mm[Hg] Wed Feb 12 00:09:33 EST 5 Diastolic Blood Pressure 71.00 mm[Hg] Wed Feb 12 00:09:33 EST 2025 Heart Rate 72.00 /min Wed Feb 12 00:09 :33 EST 5 Body temperature 97.60 [degF] Sat Feb 12 00:0 9:33 EST 5 Respiratory rate 20.00 /min Sat Feb 12 00:0 9:33 EST 2024 Pulse Oximetry 97.00 % Sat Feb 12 00:09 :33 EST 5 Systolic Blood Pressure 154.00 mm[Hg] e Feb 11 08:46:44 EST 2024 Diastolic Blood Pressure 81.00 mm[Hg] Sat Feb 11 08:46:44 EST 2025 Heart Rate 76.00 /min Sat Feb 08:46 :44 EST 2024 Body temperature 98.10 [degF] Sat Feb 08:4 6:44 EST 2024 Respiratory rate 20.00 /min Sat Feb 08:4 6:44 EST 2024 Pulse Oximetry 94.00 % Sat Feb 08:46 :44 EST 2024 Systolic Blood Pressure 154.00 mm[Hg] Sat Feb 08:43:55 EST 5 Diastolic Blood Pressure 81.00 mm[Hg] Sat Feb 08:43:55 EST 5 Heart Rate 76.00 /min Sat Feb 08:43 :55 EST 5 Systolic Blood Pressure 154.00 mm[Hg] Sat Feb 10 23:35:55 EST 2024 Diastolic Blood Pressure 71.00 mm[Hg] Sat Feb 10 23:35:55 EST 5 Heart Rate 71.00 /min Sat Feb 10 23:35 :55 EST 5 Body temperature 98.30 [degF] Mon Feb 10 23:3 5:55 EST 5 Respiratory rate 18.00 /min Mon Feb 10 23:3 5:55 EST 2024 Pulse Oximetry 94.00 % Sat Feb 10 23:35 :55 EST 5 Systolic Blood Pressure 155.00 mm[Hg] Mon Feb 10 16:32:00 EST 5 Diastolic Blood Pressure 78.00 mm[Hg] Mon Feb 10 16:32:00 EST 5 Heart Rate 71.00 /min Sat Feb 10 16:32 :00 EST 2024 Body weight 180.40 [lb_av] Mon Feb 10 16:32 :00 EST 2024 Body temperature 98.20 [degF] Mon Feb 10 16:3 2:00 EST 2025 Respiratory rate 18.00 /min SatMay 11 16:3 2:00 EST 2024 Pulse Oximetry 96.00 % SatMay 11 16:32 :00 EST 2024 Body Height 63.00 [in_i] SatMay 11 16:32 :00 EST 2024 Reason for Referral Past Medical History 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
--- OUTSIDE RECORDS SUMMARY | 2024-07-08 17:03 | XMS_ITS | Clinical Summary ---
Author Organization [facility] [place] Address [address] [place] [address] Phone Care Team Providers Care Photographic Processor Name Role Phone Milagros Haq MD Primary Care Provider Allergies Active Allergy Reactions Criticality Noted Date [...] 9 Active nitroglycerin (NITROMIST) 400 mcg/spray Aerosol, [place] place 1 spray by translingual route onto [...] MD (General) Referring Provider: Milagros Haq MD [address] [place] [address] Other: Problem Noted Date Diagnosed Date Inversion [...] 11:15 AM CDT Height 162.6 cm (5' 4) 12/24/2018 11:15 AM CDT Body Mass Index [...] 2013 INFLUENZA VACCINE (#1) [address] [place] [address] MEDICARE paymio [facility] [id number] [place] [address] Care Teams Photographic Processor Relationship Specialty Start Date End Date Milagros Haq MD [address] [place] [id number] PCP - General Family Practice 07/18/12
--- OUTSIDE RECORDS SUMMARY | 2024-07-08 17:03 | XMS_ITS | Continuity of Care Document ---
Author Organization [facility] Address [address] [place] [address] [place] [address] Phone Care Team Providers Care Busher Helper Name Role Phone [facility] Unavailable Unavail able Deysi Scherer Unavailable Unavailable Advance Directives Directive Yes / No Effective Date File Name No Information Encounters Encounter Description Practice Location Reason(s) For Visit Diagnoses Date Provider Providers Copied on Encounter [facility], [address] [place] [address] [address], [place], [place], [id number], [place] tel:[phone] SEC [facility] No Information 200 2 [facility] [employer]. [address] [facility], [address], [place], [place], [address] , [place]. tel:[phone] Consulting Provider: Deysi Scherer, [address] [place] [address], [place], [address]. tel:[phone] Family History Family Member Type Diagnosis Age [...]
--- OUTSIDE RECORDS SUMMARY | 2024-07-08 17:03 | XMS_ITS | Continuity of Care Document ---
Author Organization [facility] Address [address] [place] [address] Phone Care Team Providers Care Internal Sales Engineer Name Role Phone Conversion MD, Doctor Unavailable [...] Diagnoses Date Provider Providers Copied on Encounter [facility], [address], [place], [place], [address] , tel: [phone] [facility] No Information 1 Conversion Doctor. [address] [facility], [place], [address], . [facility], [address], [place], [place], [address] , tel: [phone] [facility] PERIPHERAL VERTIGO NOSDIZZINESS AND GIDDINESS 3 Conversion Doctor. [address] [facility], [place], [address], [place]. [facility], [address], [place], [place], [address] , tel: [phone] [facility] DIFFUS CYSTIC MASTOPATHYCHRONIC BRONCHITIS NOS 3 Matt Bonilla. [address] [facility], [address], [place], [place], [address]. tel: [phone] [facility], [address], [place], [place], [address] , tel: [phone] [facility] COUGHMIXED HYPERLIPIDEMIA 3 Matt Bonilla. [address] [facility], [address], [place], [address]. tel: [phone] [facility], [address], [place], [place], [address] , tel: [phone] [facility] CHRONIC SINUSITIS NOS 3 Matt Bonilla. [address] [facility], [address], [place], [address]. tel: [phone] [facility], [address], [place], [place], [address] , [place] tel: [phone] [facility] JOINT PAIN-UNSPEC 2 Matt Bonilla. [address] [facility], [address], [place], [place], [address]. tel:[phone] [facility], [address], [place], [place], [address] , [place] tel: [phone] [facility] MASTODYNIA Apr-2 9-200 2 Matt Bonilla. [address] [facility], [address], [place], [place], [address]. tel: [phone] [facility], [address], [place], [place], [address] , [place] tel: [phone] [facility] OSTEOPOROSIS NOS Mar- 1-200 2 Matt Irene. [address] [facility], [address], [place], [place], [address]. tel: [phone] [facility], [address], [place], [place], [address] , [place] tel: [phone] [facility] ESOPHAGEAL REFLUX Sep- 0-200 1 Matt Bonilla. [address] [facility], [address], [place], [place], [address]. tel: [phone] [facility], [address], [place], [place], [address] , [place] tel: [phone] [facility] MYALGIA AND MYOSITIS NOSSCREEN MAL NEOP-CERVIX Sep- 7-200 1 Matt Bonilla. [address] [facility], [address], [place], [place], [address]. tel: [phone] [facility], [address], [place], [place], [address] , [place] tel: [phone] [facility] NONSPECIF SKIN ERUPT NEC July- 0-200 1 Matt Bonilla. [address] [facility], [address], [place], [place], [address]. tel: [phone] [facility], [address], [place], [place], [address] , [place] tel:[phone] [facility] ABN PAP SMEAR-OTH SITE Jose-2 2-200 0 Matt Bonilla. [address] [facility], [address], [place], [place], [address]. tel:[phone] [facility], [address], [place], [place], [address] , tel: [phone] [facility] BACKACHE NOSMENOPAUSAL DISORDER NOS 0-200 0 Matt Bonilla. [address] [facility], [address], [place], [place], [address]. tel:[phone] [facility], [address], [place], [place], [address] , tel: [phone] [facility] ABNORMAL WEIGHT GAINROUTINE MEDICAL EXAMALLERGY, UNSPECIFIED 3-200 0 Matt Bonilla. [address] [facility], [address], [place], [place], [address]. tel:[phone] Family History Family Member Type Diagnosis Age [...]
--- OUTSIDE RECORDS SUMMARY | 2024-07-08 17:03 | XMS_ITS | Clinical Summary ---
Author Organization [facility] Address [address] [place] [address] Care Team Providers Care Medical Education Specialist Name Role Phone Unavailable Primary Care Provider Unavailabl e Encounters Date Type Department Care Team Description 05/21/2024 5:42 PM MASH TUB COOKER OPERATOR - 05/21/2024 11:59 PM MASH TUB COOKER OPERATOR Hospital Encounter [facility] [address] Diana Kunz DO Discharge Disposition: Home or Self Care (Routine Discharge) 05/21/2024 Orders [place] [address] Diana Kunz DO from Last 3 Months [...] PRO-BRAIN NATRIURETIC PEPTIDE Routine 05/21/2024 2:29 PM MASH TUB COOKER OPERATOR Anemia, unspecified Vitamin D insufficiency Acute diastolic heart failure ([facility]/HCC HHS/HCC) CBC W/DIFF AUTOMATED Routine 05/21/2024 2:29 PM MASH TUB COOKER OPERATOR Anemia, unspecified Vitamin D insufficiency Acute diastolic heart failure (CMS/HCC HHS/HCC) COMPREHENSIVE METABOLIC PANEL Routine 05/21/2024 2:29 PM MASH TUB COOKER OPERATOR Anemia, unspecified Vitamin D insufficiency Acute diastolic heart failure (CMS/HCC HHS/HCC) from Last 3 Months Results * (ABNORMAL) PRO-BRAIN NATRIURETIC PEPTIDE (05/21/2024 2:29 PM MASH TUB COOKER OPERATOR) PRO-B TYPE NATRIURETIC PEPTIDE 1,336(H) <450 PG/ML 05/21/2024 6:22 PM MASH TUB COOKER OPERATOR [facility] Comment: CUT POINTS ESTABLISHED BY [...] 72% FOR ACUTE CHF. 05/21/2024 2:29 PM MASH TUB COOKER OPERATOR us Diana Kunz DO LABORATORY Final Resu lt [facility] [address] [place] [address], [place] [phone] * (ABNORMAL) COMPREHENSIVE METABOLIC PANEL (05/21/2024 2:29 PM MASH TUB COOKER OPERATOR) GLUCOSE 126(H) 70 - 99 MG/DL 05/21/2024 6:22 PM MASH TUB COOKER OPERATOR [facility] BUN 14 7 - 18 MG/DL 05/21/2024 6:22 PM [facility] CREATININE S/P/B 0.70 0.55 - 1.02 MG/DL 05/21/2024 6:22 PM [facility] SODIUM S/P/B 137 136 - 145 MMOL/L 05/21/2024 6:22 PM [facility] POTASSIUM S/P/B 3.6 3.5 - 5.1 MMOL/L 05/21/2024 6:22 PM [facility] CHLORIDE S/P/B 105 97 - 115 MMOL/L 05/21/2024 6:22 PM [facility] CO2 30.3 21 - 32 MMOL/L 05/21/2024 6:22 PM [facility] CALCIUM S/P/B 9.1 8.5 - 10.1 MG/DL 05/21/2024 6:22 PM [facility] BILIRUBIN TOTAL S/P/B 0.4 0.2 - 1.2 MG/DL 05/21/2024 6:22 PM [facility] Comment: THIS ASSAY IS NOT RECOMMENDED FOR PATIENTS UNDERGOING TREATMENT WITH ELTROMBOPAG DUE TO THE POTENTIAL FOR FALSELY ELEVATED RESULTS. TOTAL PROTEIN S/P/B 6.3(L) 6.4 - 8.2 G/DL 05/21/2024 6:22 PM [facility] ALBUMIN S/P/B 2.6(L) 3.4 - 5.0 G/DL 05/21/2024 6:22 PM [facility] AST 13(L) 15 - 37 U/L 05/21/2024 6:22 PM [facility] ALT 15 14 - 55 U/L 05/21/2024 6:22 PM [facility] ALKALINE PHOSPHATASE S/P/B 83 50 - 136 U/L 05/21/2024 6:22 PM MASH TUB COOKER OPERATOR [facility] ANION GAP 1.7(L) 2 - 10 MMOL/L 05/21/2024 6:22 PM [facility] BUN CREATININE RATIO 20.0 6 - 26 05/21/2024 6:22 PM [facility] A/G RATIO 0.7(L) 1.0 - 2.0 RATIO 05/21/2024 6:22 PM [facility] GFR ESTIMATE 84(L) >90 ML/MIN/1.7 3 M2 05/21/2024 6:22 PM [facility] Comment: NOTE: eGFR is not calculated for patients <18 years of age or gender unknown. This is an estimated GFR calculation using the new CKD EPI creatinine equation without race and so does not require a correction factor for race. This estimated GFR should not be used for calculating drug doses. 05/21/2024 2:29 PM MASH TUB COOKER OPERATOR us Diana Kunz DO LABORATORY Final Resu lt [facility] [address] [place] [address], [place] [phone] * (ABNORMAL) CBC W/DIFF AUTOMATED (05/21/2024 2:29 PM MASH TUB COOKER OPERATOR) WBC 4.17(L) 4.5 - 11.0 x10'3/uL 05/21/2024 5:57 PM MASH TUB COOKER OPERATOR [facility] RBC 3.31(L) 4.20 - 5.40 x10'6/uL 05/21/2024 5:57 PM MASH TUB COOKER OPERATOR [facility] HGB 9.8(L) 12.0 - 16.0 G/DL 05/21/2024 5:57 PM MASH TUB COOKER OPERATOR [facility] HCT 33.1(L) 38.0 - 48.0 % 05/21/2024 5:57 PM MASH TUB COOKER OPERATOR [facility] MCV 100.0(H) 81.0 - 99.0 FL 05/21/2024 5:57 PM [facility] MCH 29.6 27.0 - 31.0 PG 05/21/2024 5:57 PM [facility] MCHC 29.6(L) 32.0 - 36.0 G/DL 05/21/2024 5:57 PM MASH TUB COOKER OPERATOR [facility] RDW 14.6(H) 11.5 - 14.5 % 05/21/2024 5:57 PM [facility] PLT 233 130 - 400 x10'3/uL 05/21/2024 5:57 PM [facility] MPV 11.0 9.3 - 12.2 FL 05/21/2024 5:57 PM [facility] DIFFERENTIAL TYPE AUTOMATED DIFFERENTIAL 05/21/2024 5:57 PM [facility] NEUTROPHILS % 53.2 % 05/21/2024 5:57 PM [facility] LYMPHOCYTES % 34.1 % 05/21/2024 5:57 PM [facility] MONOCYTES % 10.1 % 05/21/2024 5:57 PM [facility] EOSINOPHILS 1.9 % 05/21/2024 5:57 PM [facility] BASOPHILS 0.5 % 05/21/2024 5:57 PM MASH TUB COOKER OPERATOR [facility] IMMATURE GRANS % 0.2 % 05/21/19 5:57 PM [facility] ABS. NEUTROPHILS 2.22 1.80 - 7.70 x10'3/uL 05/21/2024 5:57 PM [facility] ABS. LYMPHOCYTES 1.42 1.00 - 4.80 x10'3/uL 05/21/2024 5:57 PM MASH TUB COOKER OPERATOR [facility] ABS. MONOCYTES 0.42 0.24 - 0.86 x10'3/uL 05/21/2024 5:57 PM MASH TUB COOKER OPERATOR [facility] ABS. EOSINOPHILS 0.08 0.04 - 0.36 x10'3/uL 05/21/2024 5:57 PM MASH TUB COOKER OPERATOR [facility] ABS. BASOPHILS 0.02 0.01 - 0.08 x10'3/uL 05/21/2024 5:57 PM MASH TUB COOKER OPERATOR [facility] ABS. IMMATURE GRANULOCYTES 0.01 0.00 - 0.49 x10'3/uL 05/21/2024 5:57 PM MASH TUB COOKER OPERATOR [facility] 05/21/2024 2:29 PM MASH TUB COOKER OPERATOR Diana Kunz DO LABORATORY Final Resu lt [facility] [address] [place] [address], from Last 3 Months Insurance [facility] MEDICARE
[2024-07-08 17:07] LABS: NT Pro B Type Natriuretic Pept 1680 pg/mL (19.9-100)
== END 2024-07-08 16:03 | disposition home or self-care (01) ==
LOC: HOME HLTH 16:07
PROVIDERS: PCP Family Medicine
DX: K80.00 Calculus of gallbladder with acute cholecystitis without obstruction (principal); I48.91 Unspecified atrial fibrillation; I25.118 Atherosclerotic heart disease of native coronary artery with other forms of angina pectoris; I50.9 Heart failure, unspecified
CPT/HCPCS: 80048; 83880

== ENCOUNTER 2024-07-15 09:17 | Outpatient (CLI) | payer MEDICARE, SELFPAY ==
--- NOTE | ~2024-07-15 | MR_ITS ---
EXAMINATION: MR thoracic spine wo con, MR lumbar spine wo con DATE: 07/15/2024 10:03 (accession [id number]), 07/15/2024 10:25 (accession [id number]) INDICATION: Thoracic spine pain TECHNIQUE: 1. Magnetic resonance imaging (MRI) of the thoracic spine was performed without intravenous contrast. Sagittal localizer T1-weighted FSE of the cervicothoracic spine was obtained. Thoracic spine sequenc es included sagittal T2-weighted FSE, sagittal T1-weighted SE, Sagittal T2-weighted FS FSE, and axial T2-weighted FSE. 2. MRI of the lumbar spine was performed without intravenous contrast. Sequences included sagittal T2 -weighted FSE, sagittal T2-weighted FS FSE, sagittal T1-weighted FSE, and axial T2-weighted FSE. COMPARISON: CT dated 06/12/2024 FINDINGS: 13 degree thoracolumbar dextrocurvature. Sagittal alignment is normal. Chronic mild superior endplate compression fractures with normal marrow signal at T1, T2 and T3. There is mild marrow edema associa ana maria with subacute T12 burst fracture with 40% anterior and central vertebral body height loss which i s new since 05/05/2024 and which has progressed since 06/12/2024. There is normal marrow signal at a chr onic L2 compression fracture with 20% anterior vertebral body height loss. Marrow edema associated wi th an acute L1 burst fracture with 20% right-sided vertebral body height loss which is new since 06/12. There is minimal retropulsion along the posterior wall of T12 and L1 resulting in only minimal central canal stenosis at both levels. The remaining thoracic and lumbar vertebral body heights and marrow signal are normal. There is mild ballooning of the disc spaces adjacent to the compression fra ctures at C7-T1, T1-T2, T2-T3, T12-L1 and L1-L2. Mild disc height loss at T5-T6 and at L5-S1. There i s an annular fissure at L5-S1. The thoracic discs do not extend beyond the endplate margins with no c entral canal stenosis above level of the T12 burst fracture. There is multilevel mild to moderate tho racic facet osteoarthritis which contribute to minimal to mild neural from stenosis at a few levels. There is normal spinal cord signal. The conus terminates at L1-L2. 7 mm T2 hyperintense left renal c yst. The thoracic and lumbar paravertebral soft tissues are unremarkable. The following disc levels are specifically discussed: T12-L1: The disc does not extend beyond the endplate margin with minimal retropulsion of the posterio r L1 superior endplate margin. There is mild left and moderate right facet joint osteoarthritis. Ther e is no neural foraminal stenosis. There is negligible central canal stenosis. L1-L2: Disc is mildly bulging. There is mild left and moderate right facet joint osteoarthritis. Ther e is mild left and minimal right neural foraminal stenosis. There is minimal central canal stenosis. L2-L3: Disc is mildly bulging. There is mild left and moderate right facet joint osteoarthritis. Ther e is mild bilateral neural foraminal stenosis. There is mild central canal stenosis. L3-L4: Disc is bulging. There is moderate bilateral facet joint osteoarthritis. There is moderate cara ateral neural foraminal stenosis. There is mild to moderate central canal stenosis. L4-L5: Disc is bulging. There is moderate left and severe right facet joint osteoarthritis. There is moderate left and moderate to severe right neural foraminal stenosis. There is moderate central canal stenosis with narrowing of the left and right lateral recesses. L5-S1: Disc is bulging with annular fissure. There is severe bilateral facet joint osteoarthritis. Th ere is mild to moderate bilateral neural foraminal stenosis. There is mild central canal stenosis. IMPRESSION: 1. Recent burst fractures at T12 and L1, the former subacute with some interval progression since 05/30 and the latter new since 06/12/2024. 2. Mild thoracic and lumbar spondylosis. Reviewed, dictated and finalized at location A. IMPRESSION: 1. Recent burst fractures at T12 and L1, the former subacute with some interval progression since 06/12/2024 and the latter new since 06/12/2024. 2. Mild thoracic and lumbar spondylosis.
== END 2024-07-15 09:18 | disposition home or self-care (01) ==
LOC: MICIMG 09:19
PROVIDERS: PCP Family Medicine; Visit Provider Nurse Practitioner Family
DX: M47.896 Other spondylosis, lumbar region (principal); M47.894 Other spondylosis, thoracic region; S32.011A Stable burst fracture of first lumbar vertebra, initial encounter for closed fracture; X58.XXXA Exposure to other specified factors, initial encounter
CPT/HCPCS: 72146; 72148

== ENCOUNTER 2024-07-21 14:51 | Inpatient (IN) | payer MEDICARE, SELFPAY ==
--- NOTE | ~2024-07-21 | CT_ITS ---
CT of the Abdomen and Pelvis: Indication: Cholecystitis, percutaneous cholecystostomy Technique: 2.5 mm axial scans were obtained through the abdomen and pelvis following intravenous adm inistration of 100 cc of Omnipaque 350. Dose reduction technique was used on this scan by utilizing a utomated exposure control and iterative reconstruction technique. The dose-length product (DLP) was 8 25.73 mGy-cm. COMPARISON: 06/12/2024 Findings: Scans through the lung bases are unremarkable. The liver, spleen, pancreas, adrenals and kidneys are within normal limits. Percutaneous cholecystost salima tube is in place. Gallbladder is distended with internal air or possibly small stones, with thick ened and irregular wall and pericholecystic inflammatory change. There is a focal fluid-filled tract extending from the gallbladder anteriorly (axial image 59 for example), compatible with a patent trac t from prior percutaneous cholecystectomy tube. Additional possible area of contained perforation at the inferior aspect of the gallbladder (coronal image 43). No evidence of aortic aneurysm. No lympha denopathy. No bowel obstruction or bowel wall thickening. There is no evidence to suggest acute appendicitis. Images through the pelvis were performed. Urinary bladder unremarkable. No pelvic mass seen. No ascit es. There is an acute L1 compression fracture which is new from prior exam. There is also worsened acute compression fracture of T12, with progressive loss of height since prior exam. Stable chronic L2 frac ture. Impression: Percutaneous cholecystostomy tube in place with distended irregular gallbladder with marked irregular wall thickening and pericholecystic infarct or change, compatible with acute cholecystitis. Fluid-fi lled tract communicating with the gallbladder lumen at the superior aspect, which represents a tract related to prior cholecystostomy tube placement, with extension into the anterior abdominal wall. Add itional suspected area of contained perforation at the inferior aspect of the gallbladder, which is n ew from prior exam. Acute L1 compression fracture, new from prior exam. Worsening T12 compression fracture as compared to prior exam with progressive loss of height. Reviewed, dictated and finalized at location . Impression: Percutaneous cholecystostomy tube in place with distended irregular gallbladder with marked irregular wall thickening and pericholecystic infarct or change, c ompatible with acute cholecystitis. Fluid-filled tract communicating with the g allbladder lumen at the superior aspect, which represents a tract related to pr ior cholecystostomy tube placement, with extension into the anterior abdominal wall. Additional suspected area of contained perforation at the inferior aspect of the gallbladder, which is new from prior exam. Acute L1 compression fracture, new from prior exam. Worsening T12 compression f racture as compared to prior exam with progressive loss of height.
--- NOTE | ~2024-07-21 | XR_ITS ---
EXAMINATION: XR perc cholecystostomy w imag DATE: 07/23/2024 12:48 INDICATION: Cholecystostomy tube upsizing TECHNIQUE: A time-out was performed to verify the patient's name, date of , and procedure to b e performed. The procedure including the risks, benefits, and alternatives was discussed with the pat ient. Risks discussed included bleeding and infection. The patient understood the risks and agreed to proceed. The catheter and the skin surrounding the catheter access were prepped and draped in usual sterile fashion. Anesthetic was administered with 1% lidocaine subcutaneously. The catheter was cut and a J-wire advanced through the catheter into the gallbladder. The catheter was removed over the w shruthi and utilizing Seldinger technique the tract was serially dilated to [address] A new [address] nugent catheter was advanced over the wire into the gallbladder. The loop was formed and locked and t he wire removed. 8 mL Omnipaque-240 was injected into the tube confirming position within the gallbla dder and demonstrating a patent cystic and normal caliber common bile duct with contrast emptying int o the duodenum. The catheter was sutured to the skin. Antibiotic ointment and a sterile dressing were applied. The catheter was reattached to gravity drainage. No additional adhesive fixation device was applied to the skin. There were no immediate complications. Fluoroscopy exposure time was 0.7 minute s. The total number of images was 7. Total DAP was 4.7 Gycm^2. FINDINGS: Real-time fluoroscopy demonstrates the tip of the catheter and injected contrast within the gallbladder. There is irregular mucosal contour to the gallbladder. The cystic and common bile ducts are patent. IMPRESSION: 1. Successful upsizing to 12 Tristanian of a right upper quadrant percutaneous cholecystostomy tube. 2. Patent cystic and common bile ducts. Reviewed, dictated and finalized at location A. IMPRESSION: 1. Successful upsizing to 12 Tristanian of a right upper quadrant percutaneous chol ecystostomy tube. 2. Patent cystic and common bile ducts.
--- NOTE | ~2024-07-21 | XR_ITS ---
INTRAOPERATIVE FLUOROSCOPY: CLINICAL HISTORY: 84 years old Female; GALLSTONES SPHINCTEROTOMY W/STENT PROCEDURE COMMENTS: Limited intraoperative fluoroscopy of the upper abdomen was performed. CUMULATIVE DOSE: 22 mGy FLUOROSCOPY TIME: 108 seconds FINDINGS/IMPRESSION: Please refer to operative note for further details. Reviewed, dictated and finalized at location A.
--- NOTE | ~2024-07-21 | CT_ITS ---
EXAMINATION: CT brain wo con DATE: 08/08/2024 13:19 INDICATION: Stroke TECHNIQUE: Computed tomography (CT) of the head was performed without intravenous contrast. Sagittal and coronal reconstructions were performed. The mA was adjusted according to patient size. Iterative reconstruction technique was employed. The dose-length product was 681.00 mGy-cm. COMPARISON: head CT dated 05/05/2024 FINDINGS: No acute intracranial hemorrhage, acute infarction or abnormal extra axial fluid collection. There is moderate scattered white matter hypoattenuation consistent with chronic small vessel ischemic diseas e. Symmetric prominence of the sulci consistent with mild to moderate age-appropriate diffuse cerebra l volume loss. No mass/mass effect. Intracranial calcified cerebral atherosclerosis is noted. Changes of bilateral intraocular lens replacement. The orbits, paranasal sinuses and mastoid air cells are n ormal. IMPRESSION: 1. Stable age-related changes including mild to moderate diffuse volume loss and moderate scattered w raulito matter hypoattenuation consistent with chronic small vessel ischemic disease. Reviewed, dictated and finalized at location A. IMPRESSION: 1. Stable age-related changes including mild to moderate diffuse volume loss an d moderate scattered white matter hypoattenuation consistent with chronic small vessel ischemic disease.
--- NOTE | ~2024-07-21 | XR_ITS ---
XR chest 1V portable Ordering provider: Reza Danielson MD History: 84 years Female with . pleuritic chest pain . Comparison: None. FINDINGS: MEDIASTINUM: The cardiac silhouette is not enlarged. LUNGS: No pneumothorax. Bibasilar atelectasis versus pneumonia with left pleural effusion. Underlying emphysematous changes. Subsegmental atelectasis in the right lower lobe area. OTHER: No free air under the diaphragm. Degenerative changes of the spine. IMPRESSION: Bibasilar atelectasis versus with left pleural effusion. Reviewed, dictated and finalized at location A.
[2024-07-21 14:52] VITALS: BMI 26.3
[2024-07-21 15:16] LABS: Basophils Percent Auto 0.2 % (0.2-1.2); Eosinophils Absolute Auto 0.1 K/mm3 (0-0.3); Eosinophils Percent Auto 0.9 % (0-4.4); Hematocrit 33.8 % (37.0-47.0); Hemoglobin 10.3 g/dL (12.0-15.0); Immature Granulocyte Absolute 0.05 K/mm3 (0.00-0.031); Immature Granulocyte Percent A 0.5 % (0-0.5); Lymphocytes Absolute Auto 1.84 K/mm3 (0.9-3.2); Mean Corpuscular HGB Conc 30.5 g/dl (32-36); Mean Corpuscular Hemoglobin 28.3 pg (26-34); Mean Corpuscular Volume 92.9 fl (80-100); Mean Platelet Volume 9.6 fl (7.4-10.4); Monocytes Absolute Auto 0.8 K/mm3 (0.1-0.6); Monocytes Percent Auto 8.2 % (2.6-8.5); Neutrophils Absolute Auto 6.9 K/mm3 (1.3-6.7); Neutrophils Percent Auto 71.2 % (45.5-73.1); Platelet Count Result 276 k/mm3 (150-375); Red Blood Count 3.64 M/mm3 (4.2-5.4); Red Cell Distribution Width 14.8 % (11.5-14.5); White Blood Count 9.7 K/mm3 (4.5-10.0)
--- NOTE | 2024-07-21 15:20 | PM.IMHP ---
H&P: HPI History of Present Illness Date/Time: 07/21/24 15:20 Chief Complaint: Cholecystitis Narrative: This is an 84 yo female who is known to our service for previous hospitalizations for acute cholecystitis. She was hospitalized in May of 2024 for acute cholecystitis and treated with IV antibiotics and percutaneous cholecystostomy tube placement. She was a poor surgical candidate given her other co-morbidities and conservative management was recommended. She eventually has a cholangiogram as an outpatient through the cholecystostomy tube that showed an inflamed gallbladder with an occluded cystic duct. She was residing at a nursing care facility and brought back into the hospital in May with findings of her cholecystostomy tube dislodged and CT evidence of acute cholecystitis. She was treated with IV antibiotics and her cholecystostomy tube was replaced. She eventually improved and was discharge home with her daughter about a month ago. She was doing well and followed by home health. Yesterday, her daughter and the home health nurse noticed drainage coming around the cholecystostomy tube, which prompted them to call our office. She followed up with Dr. Chester in our office today and was found to have purulent drainage coming from and around the cholecystostomy tube. She is now admitted in the setting of possible acute on chronic cholecystitis and concerns for dysfunction or clogging of the cholecystostomy tube. Recently, her daughter has noticed the patient has had poor appetite. She has not been eating or drinking much. She had one episode of vomiting 3 days ago and again this morning. She has not been complaining of any abdominal pain, but continues to complain of back pain daily. The pain is significant enough that her mobility has declined and she is nearly screaming in pain with getting up out of bed or transfers. They were planning to have a kyphoplasty as an outpatient this week, and have been holding her Eliquis since Saturday in planning for the surgery. She thought the lack of appetite and possible nausea and vomiting was related to her back pain. Today she weighed 144 lbs in our office and her daughter states she is typically around 170 lbs. In review of our chart, her most recent weight one month ago was 169 lbs. She has had a nearly 30 lb weight loss in the past month, which the daughter was not aware of until today. And before May, she weighed between 170-190 lbs since May. The patient is alert and oriented this afternoon. She denies any abdominal pain or nausea, but has back pain. 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 Patient of Dr. Bereket Olson. Arthritis Prediabetes Essential hypertension Gastroesophageal reflux disease Hypothyroidism Mixed hyperlipidemia Seasonal allergic rhinitis Vitamin B12 deficiency Vitamin D deficiency Surgical History Surgical History History of cardiac catheterization Results as above. History of colonoscopy with polypectomy History of appendectomy History of cataract extraction History of hysterectomy Family History Family History Father Lung cancer Sibling Breast cancer Social History Social History Social History: Surrogate medical decision maker: Jodi Lewis, daughter. Code status: Full code. Smoking status: Never smoker Second hand tobacco smoke exposure: No Alcohol intake: never Substance use: never Substance use type: does not use Do You Feel Safe in your Home?: Yes Lack of Transportation: No Lack of Food: Never True Current Housing: I Have Housing Concerned About Future Housing: No Difficulty Paying Gas/Electric Bills: No Difficulty Paying for Meds: No Currently Unemployed: No Education: High School Diploma/GED Difficulty w/ Childcare or Family Care: No Living arrangements: with family Additional living arrangements comments: The patient lives in [place] with her daughter Jodi. 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 Spiritual care concerns: No Agree to blood products: Yes Meds Home Medications and Allergies Home Medications Medication Instructions Recorded Confirmed Type cyanocobalamin (vitamin B-12) 2,500 mcg PO QAM #90 tabs 01/10/23 07/21/24 Rx 2,500 mcg tablet levothyroxine 25 mcg tablet 25 mcg PO DAILY #90 tabs 03/20/23 07/21/24 Rx omeprazole 20 mg capsule,delayed 40 mg (2 x 20 mg) PO DAILY #180 08/28/23 07/21/24 Rx release caps ondansetron HCl 4 mg tablet See Rx Instructions .Route 09/03/24 04/22/25 Rx .COMPLEX #40 ea egg crate mattress for chair #1 ea 04/27/24 07/21/24 Rx nitroglycerin 0.4 mg sublingual 0.4 mg sublingual Q5M PRN chest 05/02/24 07/21/24 History tablet pain acetaminophen 500 mg capsule 1,000 mg PO TID PRN pain 06/13/24 07/21/24 History amitriptyline 10 mg tablet 20 mg PO .HS 06/13/24 07/21/24 History furosemide 40 mg tablet (Lasix) 40 mg PO BID 30 days #60 tabs 06/20/24 07/21/24 Rx metoprolol succinate 100 mg 100 mg PO DAILY 30 days #30 tabs 06/20/24 07/21/24 Rx tablet,extended release 24 hr (Toprol XL) apixaban 5 mg tablet (Eliquis) 5 mg PO Q12HR #60 tabs 06/22/24 07/21/24 Rx potassium chloride 20 mEq 40 meq (2 x 20 mEq) PO DAILY #30 06/22/24 07/21/24 Rx tablet,extended release(part/cryst) tabs tamsulosin 0.4 mg capsule 0.4 mg PO DAILY urinary retention 06/22/24 07/21/24 Rx #30 caps atorvastatin 40 mg tablet 40 mg PO DAILY #90 tabs 06/29/24 07/21/24 Rx chair lift #1 ea 06/29/24 07/21/24 Rx gabapentin 100 mg capsule 100 mg PO BID 07/21/24 07/21/24 History Allergies Allergy/AdvReac Type Severity Reaction Status Date / Time alendronate sodium Allergy Unknown Pt does Verified 07/21/24 11:33 remember levofloxacin Allergy Unknown Pt does Verified 07/21/24 11:33 not remember hydrocodone AdvReac Mild IF SHE Verified 07/21/24 11:33 TAKES 250 MG SHE IS OKAY, 500 MG SHE HAS NAUSEA AND V Exam Const: General: comfortable and no acute distress Nutritional Appearance: average body habitus Orientation/consciousness: patient oriented x3 HENMT: Head: normocephalic and atraumatic Ears: hearing grossly normal bilaterally Mouth: Yes moist mucous membranes Eyes: General: appearance normal, both eyes and all related structures Pupils: Equal, round and reactive pupils present Neck: Neck: normal visual inspection and full ROM Resp: Effort & Inspection: no respiratory distress Auscultation: clear to auscultation bilaterally Cardio: Rate: regular rate Rhythm: regular rhythm Peripheral pulses: Peripheral pulses 2+ throughout GI: Inspection: non-distended GI Palp: Yes Soft to palpation, No Tenderness to palpation present (GI), No Guarding due to palpation present (GI) and No Rebound tenderness present Auscultation: normal bowel sounds Rectal Exam: deferred Other: RUQ percutaneous cholecystostomy tube in place with scant amount of thick linton purulent drainage in the tubing and bag, and moderate amount of the same appearing drainage coming around the tube at her skin. The skin around the drain appears healthy without any redness, but is slightly indurated in this area. Gauze dressing changed. Skin: General skin exam: normal color Neuro: General: moves all extremities and no focal motor deficits Speech: normal speech Motor exam (neuro): 5/5 motor strength present throughout Extrem: General: normal to inspection and no edema Psych: Mental Status: mental status grossly normal Attitude: cooperative Insight: Good insight present (Psych) Judgement: Good judgement present (Psych) H&P: Results Labs Labs: Short CBC 07/21/24 Range/Units 15:10 WBC 9.7 (4.5-10.0) K/mm3 Hgb 10.3 L (12.0-15.0) g/dL Hct 33.8 L (37.0-47.0) % Plt Count 276 (150-375) k/mm3 Assessment and Plan Assessment and plan (1) Chronic cholecystitis with calculus: Code(s): K80.10 - Calculus of gallbladder with chronic cholecystitis without obstruction Status: Acute Assessment and Plan: The patient's cholecystostomy tube is not draining properly enough to resolve the cholecystitis. She has purulent drainage coming from the tube and around the tube. Will order labs and CT scan abdomen and pelvis to further evaluate the gallbladder. Will start IV Zosyn for now in the setting of possible acute on chronic cholecystitis. Depending on the CT results, we may need to consider upsizing the drain. She is a poor surgical candidate and there is concern for malnutrition given her recent weight loss and poor oral intake. Will get baseline labs to assess and start Ensure supplements along with her diet as tolerated. (2) Coronary artery disease: Code(s): I25.10 - Atherosclerotic heart disease of ione coronary artery without angina pectoris Status: Acute Assessment and Plan: Hospitalist consulted for medical management, appreciate their help. (3) Atrial fibrillation: Qualifiers: Atrial fibrillation type: unspecified Qualified Code(s): I48.91 - Unspecified atrial fibrillation Code(s): I48.91 - Unspecified atrial fibrillation Status: Acute Assessment and Plan: Hx of paroxysmal atrial fibrillation on anticoagulation. Hospitalist consulted for medical management (4) Essential hypertension: Code(s): I10 - Essential (primary) hypertension Status: Acute Assessment and Plan: Hospitalist consulted for medical management (5) Anticoagulant long-term use: Code(s): Z79.01 - senior living (current) use of anticoagulants Status: Acute Assessment and Plan: Will continue to hold Eliquis in case we need to upsize her cholecystostomy tube. Her Eliquis has been on hold since Saturday for the kyphoplasty. (6) T12 compression fracture: Code(s): S22.080A - Wedge compression fracture of T11-T12 vertebra, initial encounter for closed fracture Status: Acute Assessment and Plan: She was scheduled for an outpatient kyphoplasty this week due to recent findings of a T12 burst fracture. Recommendations to defer surgery at this time due to the concern of an infectious process ongoing with the gallbladder. Plan I have discussed the patient's case and plan of care with Dr. Chester.
[2024-07-21 15:27] LABS: Alanine Aminotransferase 34 U/L (6-35); Albumin Level 3.3 g/dL (3.5-5.1); Alkaline Phosphatase 102 U/L (38-126); Anion Gap 8 mmol/L (4-12); Aspartate Amino Transferase 57 U/L (14-36); Bilirubin,Total 0.6 mg/dL (0.2-1.3); Blood Urea Nitrogen 18 mg/dL (7-17); Calcium 8.5 mg/dL (8.4-10.2); Carbon Dioxide 30 mmol/L (22-30); Chloride 97 mmol/L (98-107); Estimated Glomerular Filt Rate > 60; Glucose 120 mg/dL (65-110); Potassium 4.5 mmol/L (3.4-5.0); Sodium 135 mmol/L (137-145)
[2024-07-21 15:29] LABS: INR 1.2
[2024-07-21] MEDS: PIPERACILLN/TAZ 3.375GM/NS50ML 3.375 GM/50 ML BAG IVPB ×2 (16:33→21:57)
--- OUTSIDE RECORDS SUMMARY | 2024-07-21 16:42 | XMS_ITS | Clinical Summary ---
Author Organization [facility] [place] Address [address] [place] [address] Phone Care Team Providers Care Lead Janitor Name Role Phone Milagros Haq MD Primary Care Provider [phone] Allergies Active Allergy Reactions Criticality Noted Date [...] 9 Active nitroglycerin (NITROMIST) 400 mcg/spray Aerosol, [place] place 1 spray by translingual route onto [...] MD (General) Referring Provider: Milagros Haq MD [address] [place] [address] Other: Problem Noted Date Diagnosed Date Inversion [...] 2013 INFLUENZA VACCINE (#1) [address] [place] [address] MEDICARE [employer] [facility] [id number] [place] [address] Care Teams Lead Janitor Relationship Specialty Start Date End Date Milagros Haq MD [address] [place] [id number] PCP - General Family Practice 07/18/12
--- OUTSIDE RECORDS SUMMARY | 2024-07-21 16:42 | XMS_ITS | Continuity of Care Document ---
Author Organization [facility] Address [address] [place] [address] [place] [address] Phone Care Team Providers Care Director Learning Services Name Role Phone [facility] Unavailable Unavail able Deysi Scherer Unavailable Unavailable Advance Directives Directive Yes / No Effective Date File Name No Information Encounters Encounter Description Practice Location Reason(s) For Visit Diagnoses Date Provider Providers Copied on Encounter [facility], [address] [place] [address] [address], [place], [place], [id number], [place] tel:[phone] [facility] No Information [address] [facility] [address] [facility], [address], [place], [place], [id number] , [place]. tel:[phone] Consulting Provider: Deysi Scherer, [address] [place] [address], [place], [address]. tel:[phone] Family History Family Member Type Diagnosis Age At Onset No Information Payers Payer name Insurance type Covered democrat ID Authoriza tion(s) No Information Social History [...]
--- OUTSIDE RECORDS SUMMARY | 2024-07-21 16:42 | XMS_ITS ---
Author Name May Carrillo Address [address] [place] [address] Phone [phone] [facility] Address [address] [place] [address] Phone [phone] Care Team Providers Care Heating Equipment Repairer Name Role Phone May Carrillo Unavailable [phone] AaliyahDiana fagan Unavailable [phone] Functional Status No Results Mental Status No Results Allergies and Intolerances Name Onset Date Reaction Severity hydrocodone (Allergy) SatJan 10 19:57:00 EDT 20 23 levofloxacin (Allergy) SatJan 10 19:57:00 EDT 2 023 alendronate sodium (Allergy) SatJan 10 19:56:00 EDT 2022 Encounters Program Name Primary Diagnosis Admission Date/Time Dis charge Date/Time [facility] SatMay 11 09:20:00 EST [...] Time Daily Indication: Insomnia SatMay 31 09:27:00 EST 2024 Fri May 14 01:00:00 EDT 2024 amoxicillin 875 mg-potassium clavulanate 125 mg tablet 1 tablet TABLET Oral Every 12 Hours for 7 Days Indication: prophylaxis SatMay 31 07:00:00 EST 2024May 31 15:03:00 EST 2024 sodium chloride 0.9 % intravenous solution 1L INTRAVENOUS SOLUTION Intravenous 1 Time Daily for 1 Day Indication: 75cc/hr SatMay 31 19:00:00 EST 2024Jun 01 18:59:00 EST 2024 furosemide 40 [...] Indication: pain SatMay 28 13:00:00 EST 2024 [facility] May 30 01:04:00 EST 2024 calcitonin (salmon) 200 unit/actuation nasal spray 2 sprays AEROSOL, SPRAY WITH PUMP (ML) Intranasal - Both Nostrils 3 Times Daily for 14 Days Indication: allergies SatMay 28 13:00:00 EST 2024u Feb 27 15:40:00 EST 2024 calcitonin (salmon) 200 unit/actuation nasal spray 1 spray AEROSOL, SPRAY WITH PUMP (ML) Intranasal 3 Times Daily for 14 Days Indication: osteoporosis spray in 1 nostril and rotate nostril used SatMay 28 15:38:00 EST 2024 Feb 27 17:01:00 EST 2024 calcitonin (salmon) 200 unit/actuation [...] Time Daily Indication: Hypothyroidism SatMay 11 16:00:00 2024Jun 12 01:00:00 EDT 2024 atorvastatin 40 [...] Oral PRN Every 6 Hours Indication: pain SatFeb 04 10:52:00 EST 2022Feb 06 01:00:00 EST 2022 [...] Hours Indication: Angina SatJan 11 07:00:00 2022Feb 06:00:00 EST 2022 omeprazole 20 mg capsule,delayed release 20 MG CAPSULE,DELAYED RELEASE (ENTERIC COATED) Oral 1 Time Daily Indication: GERD. Take daily before breakfast. 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 (12)* Code: * Start Date: SatMay 19 00:00:00 EST 2024 * End Date: * Text: [id number] Maude receiving mechanically altered diet. (12) * [...] Code: * Start Date: SatMay 20 00:00:00 2024 * End Date: * Text: LSS_Psychotropic Drug Use - Use of psychotropic drug use places Maude at risk for drug-related side effects. * LSS_Falls - Maude is at risk for falls/injury as evidenced by: history of falls, cognitive status/behavior, vision status, continence, mobility, balance.* Code: * Start Date: SatMay 20 00::00 2024 * End Date: * Text: LSS_Falls [...] End Date: * Text: WILDAS_Social Services- Maude has family/friends who are supportive. 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* Code: * [...] /min SatJun 12 10:5 3:11 EDT 2024 Pulse Oximetry 96.00 % SatJun 12 10:53 :11 EDT 2025 Systolic Blood Pressure 140.00 mm[Hg] Sat 14 09:32:53 EDT 5 Diastolic Blood Pressure 78.00 mm[Hg] Sat 14 [...] :34 EDT 2024 Body weight 171.20 [lb_av] [facility] May 13 16:10 :36 EDT 2024 Systolic Blood Pressure 118.00 mm[Hg] Rosa Mmay 13 09:48:55 EDT 2024 Diastolic Blood Pressure 72.00 mm[Hg] Rosa Mmay 13 09:48:55 EDT 2024 Heart Rate 114.00 /min [facility] May 13 09:48 :55 EDT 2024 Body temperature 97.90 [degF] [facility] May 13 09:4 8:55 EDT 2024 Respiratory rate 16.00 /min [facility] May 13 09:4 8:55 EDT 2024 Pulse Oximetry 94.00 % [facility] May 13 09:48 :55 EDT 2024 Systolic Blood Pressure 118.00 mm[Hg] Rosa Mmay 13 09:09:32 EDT 2024 Diastolic Blood Pressure 72.00 mm[Hg] Rosa Mmay 13 09:09:32 EDT 2024 Heart Rate 114.00 /min [facility] May 13 09:09 :32 EDT 2024 Systolic Blood Pressure 150.00 mm[Hg] Rosa Mmay 13 00:15:26 EDT 2024 Diastolic Blood Pressure 73.00 mm[Hg] Rosa Mmay 13 00:15:26 EDT 2024 Heart Rate 84.00 /min Rosa M May 13 00:15 :26 EDT 2024 Body temperature 98.10 [degF] [facility] May 13 00:1 5:26 EDT 2024 [...] 18:24:52 EDT 2024 Body weight 175.30 [lb_av] SatJun 07 18:24 :52 EDT 2024 Heart Rate 79.00 /min SatJun 07 18:24 :52 EDT 2024 Body temperature 97.70 [degF] SatJun 07 18:2 4:52 EDT 2024 Respiratory rate 20.00 /min SatJun 07 18:2 4:52 EDT 2024 Pulse Oximetry 98.00 % SatJun 07 18:24 :52 EDT 2024 Systolic Blood Pressure 166.00 mm[Hg] SatJun 07 10:47:49 EDT 2024 Diastolic Blood Pressure 78.00 mm[Hg] SatJun 07 10:47:49 EDT 2024 Heart Rate 79.00 [...] :16 EST 2024 Body temperature 97.80 [degF] Sat 08 01:0 3:16 EST 2024 Respiratory rate 18.00 [...] 97.60 [degF] SatJun 04 09:0 5:33 EST 5 Respiratory rate 18.00 /min SatJun 04 09:0 [...] 2024 Diastolic Blood Pressure 69.00 mm[Hg] Sat Jun 01 10:03:14 EST 2024 Heart Rate 79.00 /min Mon Jun 01 10:03 :14 EST 2024 Heart Rate 79.00 /min Mon Jun 01 10:03 :14 EST 2024 Body temperature 98.20 [degF] SatJun 01 10:0 3:14 EST 2024 Respiratory rate 18.00 /min Mon Jun 01 10:0 3:14 EST 2024 Pulse Oximetry 96.00 % SatJun 01 10:03 :14 EST 2024 Systolic Blood Pressure 137.00 mm[Hg] Sun Mar 02 23:07:31 EST 2024 Diastolic Blood Pressure 61.00 mm[Hg] Sun Mar 02 23:07:31 EST 2024 Heart Rate 72.00 /min Sun May 02 23:07 :31 EST 2024 Body temperature 97.60 [degF] Sun May 31 23:0 7:31 EST 2024 Respiratory rate 18.00 /min Sun May 02 23:0 7:31 EST 2024 Pulse Oximetry 99.00 % Sun May 02 23:07 :31 EST 2024 Systolic Blood Pressure 137.00 mm[Hg] Sun Mar 02 10:15:23 EST 2024 Diastolic Blood Pressure 77.00 mm[Hg] Sun Mar 02 10:15:23 EST 2024 Heart Rate 69.00 /min Sun May 02 10:15 :23 EST 2024 Body temperature 97.60 [degF] Sun May 02 10:1 5:23 EST 2024 Respiratory rate 18.00 [...] [degF] Sun Mar 02 03:4 8:16 EST 2024 Respiratory rate 16.00 /min Sun Mar 02 03:4 8:16 EST 2024 Pulse Oximetry 95.00 % [place] May 31 03:48 :16 EST 2024 Systolic [...] 23:47:19 EST 2024 Heart Rate 68.00 /min Satb 23:47 :19 EST 2024 Body temperature 97.40 [degF] Satb 23:4 7:19 2024 Respiratory rate 18.00 /min SatMay 29 23:4 7:19 2024 Pulse Oximetry 94.00 % SatMay 29 23:47 :19 EST 2024 Body weight 179.20 [lb_av] Satb 15:37 :42 EST 2024 Systolic Blood Pressure 137.00 mm[Hg] Satb 10:42:45 EST 2024 Diastolic Blood Pressure 70.00 mm[Hg] Satb 10:42:45 EST 2024 Heart Rate 78.00 /min Satb 10:42 :45 EST 2024 Body temperature 98.20 [degF] Satb 10:4 2:45 EST 2024 Respiratory rate 20.00 /min Satb 10:4 2:45 EST 2024 Pulse Oximetry 91.00 % Satb 10:42 :45 EST 2024 Systolic Blood Pressure 137.00 mm[Hg] Satb 10:06:57 EST 2024 Diastolic Blood Pressure 70.00 mm[Hg] Fri Feb 28 10:06:57 EST 2024 Heart Rate 78.00 /min Fri Feb 28 10:06 :57 EST 2024 Systolic Blood Pressure 142.00 mm[Hg] Rosa M Feb 27 23:22:43 EST 2024 Diastolic Blood Pressure 72.00 mm[Hg] Rosa M Feb 27 23:22:43 EST 2024 Heart Rate 93.00 /min Rosa M Feb 27 23:22 :43 EST 2024 Body temperature 97.70 [degF] Rosa M Feb 27 23:2 2:43 EST 2024 Respiratory rate 18.00 /min Rosa [...] 134.00 mm[Hg] Wed Feb 26 22:21:54 EST 2024 Diastolic Blood Pressure 63.00 mm[Hg] Wed Feb 26 22:21:54 EST 5 Respiratory rate 18.00 /min Wed Feb 26 22:2 1:54 EST 2024 Pulse Oximetry 97.00 % Wed Feb 26 22:21 :54 EST 5 Heart Rate 77.00 /min Wed Feb 26 22:21 :54 EST 2024 Body temperature 98.10 [degF] Wed Feb 26 22:2 1:54 EST 2024 Body weight 178.20 [lb_av] Wed Feb 26 14:41 :52 EST 2024 Systolic Blood Pressure 149.00 mm[Hg] Wed Feb 26 11:57:05 EST 5 Diastolic Blood Pressure 68.00 mm[Hg] Wed Feb 26 11:57:05 EST 5 Body temperature 98.20 [degF] Wed Feb 26 11:5 7:05 EST 2024 Heart Rate 79.00 /min Wed Feb 26 11:57 :05 EST 5 [...] Feb 26 02:15 :07 EST 2024 Body weight 179.20 [lb_av] Sat Feb 14:17 :38 EST 2024 Systolic Blood Pressure 152.00 mm[Hg] e Feb 09:03:58 EST 5 Diastolic Blood Pressure 80.00 mm[Hg] e Feb 09:03:58 EST 2024 Heart Rate 76.00 /min Sat Feb 09:03 :58 EST 2024 Body temperature 98.20 [degF] Sat Feb 09:0 3:58 EST 5 Respiratory rate 18.00 /min e Feb 09:0 3:58 EST 2024 Pulse Oximetry 93.00 % Sat Feb 09:03 :58 EST 5 Systolic Blood Pressure 152.00 mm[Hg] SatMay 26 08:33:30 EST 2024 Diastolic Blood Pressure 80.00 mm[Hg] SatMay 26 08:33:30 EST 2024 Heart Rate 76.00 /min SatMay 26 08:33 :30 EST 2024 Systolic Blood Pressure 146.00 mm[Hg] SatMay 26 00:19:27 EST 2024 Diastolic Blood Pressure 63.00 mm[Hg] SatMay 26:19:27 EST 2024 Heart Rate 73.00 /min SatMay 26 00:19 :27 EST 2024 Body temperature 97.80 [degF] SatMay 26 00:1 9:27 EST 2024 Respiratory rate 18.00 /min SatMay 26 00:1 9:27 EST 2024 Pulse Oximetry 95.00 % SatMay 26 00:19 :27 EST 2024 Body weight 181.30 [lb_av] Satb 09:32 :44 EST 2024 Systolic Blood Pressure 142.00 mm[Hg] Satb 09:03:45 EST 2024 Diastolic Blood Pressure 73.00 mm[Hg] Satb 09:03:45 EST 2024 Heart Rate 82.00 /min Satb 09:03 :45 EST 2024 Systolic Blood Pressure 142.00 mm[Hg] Satb 08:35:58 EST 2024 Diastolic Blood Pressure 79.00 mm[Hg] Satb 08:35:58 EST 2024 Heart Rate 82.00 /min Satb 08:35 :58 EST 2024 Body temperature 97.80 [degF] SatMay 25 08:3 5:58 EST 2024 Respiratory rate 20.00 /min SatMay 25 08:3 5:58 EST 2024 Pulse Oximetry 95.00 % Satb 08:35 :58 EST 2024 Systolic Blood Pressure 162.00 mm[Hg] Satb 00:15:59 EST 2024 Diastolic Blood Pressure 75.00 mm[Hg] Satb 00:15:59 EST 2024 Heart Rate 77.00 /min [id number]|2024-07-27 11:57:54|2024-07-27 11:57:54|WPDPN||||"Progress Note: A&P Assessment and Plan (1) Acute cholecystitis: Code(s): K81.0 - Acute cholecystitis Status: Acute Assessment and Plan: Patient remains stable with cholecystostomy tube in place. I have irrigated the cholecystostomy tube and fluid aspirated still looks infected. White blood cell count is normal however. Liver enzymes normal as well. Discussed in detail with the patient and her daughter that continue drainage of pus at the gallbladder wall likely necessitate an operative management of her gallbladder. The risks of the surgery were discussed as well as the alternatives of continuing with a cholecystostomy tube. The patient and daughter are leaning towards proceeding with surgery if that is what is recommended. Will look at the gallbladder tube drainage again tomorrow and make a decision tomorrow if we need to proceed with surgery later this week. Continue IV antibiotics for now. (2) Moderate protein-calorie malnutrition: Code(s): E44.0 - Moderate protein-calorie malnutrition Status: Acute Assessment and Plan: Continue Ensure supplements. Patient's daughter was encouraged to bring anything the patient liked it from home. Subjective Date/time seen: 07/27/24 11:57 Interval history: Patient remains stable. No new complaints. Appetite is fair. Albumin is now 2.7. I advised her daughter to bring her anything that she wants to eat from home. Exam GI: Other: Abdomen is soft and nondistended. Quadrant cholecystostomy tube in place. Drainage is yellowish and thick. After irrigating it particular matter comes out from the cholecystostomy tube and drainage is more bilious appearing. No drainage around the cholecystostomy tube now. Objective Data Vital Signs Vital Signs: Vital Signs - 24 hr 07/26/24 12:00 07/26/24 14:55 07/26/24 16:00 Temperature 36.3 C L Pulse Rate 88 100 92 Respiratory Rate 20 Blood Pressure 122/78 Pulse Oximetry 100 Oxygen Delivery 07/26/24 20:00 07/26/24 20:00 07/26/24 21:02 Temperature 36.6 C Pulse Rate 93 86 93 Respiratory Rate 16 16 Blood Pressure 118/59 L Pulse Oximetry 95 95 Oxygen Delivery Room Air 07/27/24 00:00 07/27/24 04:00 07/27/24 05:24 Temperature 36.9 C Pulse Rate 96 88 87 Respiratory Rate 16 Blood Pressure 138/69 Pulse Oximetry 95 Oxygen Delivery 07/27/24 08:00 Temperature Pulse Rate 78 Respiratory Rate Blood Pressure Pulse Oximetry Oxygen Delivery Intake/Output Intake/Output: Intake & Output 07/24/24 07/25/24 07/26/24 07/27/24 23:59 23:59 23:59 23:59 Intake Total 898 1260 1337 300 Output Total 235 220 0 Balance 663 1040 1337 300 Meds/Results Medications: Active Medications Generic Name Dose Route Start Last Admin Trade Name Freq PRN Reason Stop Dose Admin Acetaminophen 1,000 mg 07/22/24 08:52 07/27/24 09:46 Acetaminophen 500 Mg Tablet PO 1,000 mg Q6H PRN Administration Mild Pain (1-3) or Fever Amitriptyline HCl 20 mg 07/21/24 21:15 07/26/24 21:07 Amitriptyline Hcl 10 Mg Tablet PO 20 mg QHS MELISSA Administration Atorvastatin Calcium 40 mg 07/21/24 21:15 07/26/24 21:07 Atorvastatin 40 Mg Tablet PO 40 mg QHS MELISSA Administration Cyanocobalamin 500 mcg 07/22/24 09:00 07/27/24 09:48 Cyanocobalamin 500 Mcg Tablet PO 500 mcg QAM MELISSA Administration Cyanocobalamin 2,000 mcg 07/22/24 09:00 07/27/24 09:48 Cyanocobalamin 1,000 Mcg Tablet PO 2,000 mcg QAM MELISSA Administration Enoxaparin Sodium 40 mg 07/23/24 16:10 07/27/24 09:48 Enoxaparin 40 Mg/0.4 Ml Syringe SUB-Q 40 mg DAILY MELISSA Administration Gabapentin 200 mg 07/22/24 09:00 07/27/24 09:47 Gabapentin 100 Mg Capsule PO 200 mg BID MELISSA Administration Piperacillin/Tazobactam/Dextrose 3.375 gm in 50 mls @ 100 mls/hr 07/21/24 23:00 07/27/24 06:35 Zosyn 3.375 Gm/Ns 50 Ml IVPB Infused Q6HR MELISSA Infusion Ketorolac Tromethamine 15 mg 07/25/24 13:23 07/27/24 06:06 Ketorolac 15 Mg/Ml Vial (*Bkc) IV PUSH 15 mg Q6H PRN Administration Pain Rated 4-6 Levothyroxine Sodium 25 mcg 07/22/24 06:30 07/27/24 06:06 Levothyroxine Sodium 25 Mcg Tablet PO 25 mcg DAILY@0630 MELISSA Administration Metoprolol Succinate 50 mg 07/24/24 09:00 07/27/24 09:48 Metoprolol Succinate Ext Rel 50 Mg Tabcr PO 50 mg QAM MELISSA Administration Ondansetron HCl 4 mg 07/22/24 08:52 07/27/24 09:47 Ondansetron Inj 4 Mg/2 Ml Vial IV PUSH 4 mg Q6H PRN Administration Nausea And Vomiting Pantoprazole Sodium 40 mg 07/22/24 09:00 07/27/24 09:47 Pantoprazole 40 Mg Tablet PO 40 mg QAM MELISSA Administration Tamsulosin HCl 0.4 mg 07/22/24 09:00 07/27/24 09:48 Tamsulosin Hcl 0.4 Mg Capsule PO 0.4 mg DAILY MELISSA Administration Radiology Results: ITS Impressions Abdomen/Pelvis CT 07/22/24 08:52 Impression: Percutaneous cholecystostomy tube in place with distended irregular gallbladder with marked irregular wall thickening and pericholecystic infarct or change, compatible with acute cholecystitis. Fluid-filled tract communicating with the gallbladder lumen at the superior aspect, which represents a tract related to prior cholecystostomy tube placement, with extension into the anterior abdominal wall. Additional suspected area of contained perforation at the inferior aspect of the gallbladder, which is new from prior exam. Acute L1 compression fracture, new from prior exam. Worsening T12 compression fracture as compared to prior exam with progressive loss of height. Cholecystostomy 07/23/24 14:08 IMPRESSION: 1. Successful upsizing to 12 Czech of a right upper quadrant percutaneous cholecystostomy tube. 2. Patent cystic and common bile ducts. Labs Labs: Laboratory Results - last 24 hr 07/27/24 05:40 WBC 5.5 RBC 3.21 L Hgb 9.1 L Hct 31.0 L MCV 96.6 MCH 28.3 MCHC 29.4 L RDW 14.9 H Plt Count 279 MPV 10.1 Immature Gran % (Auto) 0.7 H Neut % (Auto) 44.2 L Lymph % (Auto) 36.5 [place] % (Auto) 8.5 Eos % (Auto) 9.7 H Baso % (Auto) 0.4 Lymph # (Auto) 2.02 [place] # (Auto) 0.5 Eos # (Auto) 0.5 H Baso # (Auto) 0.0 Abs Immat Gran (auto) 0.04 H Absolute Neuts (auto) 2.5 Absolute Nucleated RBC 0.000 Nucleated RBC % 0.0 Sodium 138 Potassium 4.3 Chloride 104 Carbon Dioxide 29 Anion Gap 5 BUN 20 H Creatinine 0.53 L Estim Creat Clear Calc 53 Estimated GFR > 60 Glucose 99 Calcium 8.6 Magnesium 1.9 Total Bilirubin < 0.1 L AST 37 H ALT 22 Alkaline Phosphatase 116 Total Protein 6.0 L Albumin 2.7 L"
--- OUTSIDE RECORDS SUMMARY | 2024-07-21 16:42 | XMS_ITS | Clinical Summary ---
Author Organization [facility] Address [address] [place] [address] Care Team Providers Care Director Traffic And Planning Name Role Phone Unavailable Primary Care Provider Unavailabl e Encounters Date Type Department Care Team Description 05/21/2024 5:42 PM RADIATION TECHNICIAN - 05/21/2024 11:59 PM RADIATION TECHNICIAN Hospital Encounter [facility] [place] [address] Diana Kunz DO Discharge Disposition: Home or Self Care (Routine Discharge) 05/21/2024 Orders Only [place] [place] [address] Diana Kunz DO from Last 3 Months [...] Td Vaccines ( 1 - Tdap) 1959 Pneumococcal Vaccine: 50+ Ye ars (1 of 2 - PCV) 1959 Zoster Vaccines (1 of 2) 1988 [...] PRO-BRAIN NATRIURETIC PEPTIDE Routine 05/21/2024 2:29 PM RADIATION TECHNICIAN Anemia, unspecified Vitamin D insufficiency Acute diastolic heart failure ([facility]/HCC HHS/HCC) CBC W/DIFF AUTOMATED Routine 05/21/2024 2:29 PM RADIATION TECHNICIAN Anemia, unspecified Vitamin D insufficiency Acute diastolic heart failure (CMS/HCC HHS/HCC) COMPREHENSIVE METABOLIC PANEL Routine 05/21/2024 2:29 PM RADIATION TECHNICIAN Anemia, unspecified Vitamin D insufficiency Acute diastolic heart failure (CMS/HCC HHS/HCC) from Last 3 Months Results * (ABNORMAL) PRO-BRAIN NATRIURETIC PEPTIDE (05/21/2024 2:29 PM RADIATION TECHNICIAN) PRO-B TYPE NATRIURETIC PEPTIDE 1,336(H) <450 PG/ML 05/21/2024 6:22 PM RADIATION TECHNICIAN [facility] Comment: CUT POINTS ESTABLISHED [...] 72% FOR ACUTE CHF. 05/21/2024 2:29 PM RADIATION TECHNICIAN us Diana Kunz DO LABORATORY Final Resu lt [facility] [address] [place] [address], [place] [phone] * (ABNORMAL) COMPREHENSIVE METABOLIC PANEL (05/21/2024 2:29 PM RADIATION TECHNICIAN) GLUCOSE 126(H) 70 - 99 MG/DL 05/21/2024 6:22 PM RADIATION TECHNICIAN [facility] BUN 14 7 - 18 MG/DL 05/21/2024 6:22 PM [facility] CREATININE S/P/B 0.70 0.55 - 1.02 MG/DL 05/21/2024 6:22 PM [facility] SODIUM S/P/B 137 136 - 145 MMOL/L 05/21/2024 6:22 PM [facility] POTASSIUM S/P/B 3.6 3.5 - 5.1 MMOL/L 05/21/2024 6:22 PM [facility] CHLORIDE S/P/B 105 97 - 115 MMOL/L 05/21/2024 6:22 PM [facility] CO2 30.3 21 - 32 MMOL/L 05/21/2024 6:22 PM [facility] CALCIUM S/P/B 9.1 8.5 - 10.1 MG/DL 05/21/2024 6:22 PM [facility] BILIRUBIN TOTAL S/P/B 0.4 0.2 - 1.2 MG/DL 05/21/2024 6:22 PM [facility] Comment: THIS ASSAY IS NOT RECOMMENDED FOR PATIENTS UNDERGOING TREATMENT WITH ELTROMBOPAG DUE TO THE POTENTIAL FOR FALSELY ELEVATED RESULTS. TOTAL PROTEIN S/P/B 6.3(L) 6.4 - 8.2 G/DL 05/21/2024 6:22 PM [facility] ALBUMIN S/P/B 2.6(L) 3.4 - 5.0 G/DL 05/21/2024 6:22 PM [facility] AST 13(L) 15 - 37 U/L 05/21/2024 6:22 PM [facility] ALT 15 14 - 55 U/L 05/21/2024 6:22 PM [facility] ALKALINE PHOSPHATASE S/P/B 83 50 - 136 U/L 05/21/2024 6:22 PM RADIATION TECHNICIAN [facility] ANION GAP 1.7(L) 2 - 10 MMOL/L 05/21/2024 6:22 PM [facility] BUN CREATININE RATIO 20.0 6 - 26 05/21/2024 6:22 PM [facility] A/G RATIO 0.7(L) 1.0 - 2.0 RATIO 05/21/2024 6:22 PM [facility] GFR ESTIMATE 84(L) >90 ML/MIN/1.7 3 M2 05/21/2024 6:22 PM [facility] Comment: NOTE: eGFR is not calculated for patients <18 years of age or gender unknown. This is an estimated GFR calculation using the new CKD EPI creatinine equation without race and so does not require a correction factor for race. This estimated GFR should not be used for calculating drug doses. 05/21/2024 2:29 PM RADIATION TECHNICIAN us Diana Kunz DO LABORATORY Final Resu lt [facility] [address] [place] [address], [place] [phone] * (ABNORMAL) CBC W/DIFF AUTOMATED (05/21/2024 2:29 PM RADIATION TECHNICIAN) WBC 4.17(L) 4.5 - 11.0 x10'3/uL 05/21/2024 5:57 PM RADIATION TECHNICIAN [facility] RBC 3.31(L) 4.20 - 5.40 x10'6/uL 05/21/2024 5:57 PM RADIATION TECHNICIAN [facility] HGB 9.8(L) 12.0 - 16.0 G/DL 05/21/2024 5:57 PM RADIATION TECHNICIAN [facility] HCT 33.1(L) 38.0 - 48.0 % 05/21/2024 5:57 PM RADIATION TECHNICIAN [facility] MCV 100.0(H) 81.0 - 99.0 FL 05/21/2024 5:57 PM [facility] MCH 29.6 27.0 - 31.0 PG 05/21/2024 5:57 PM [facility] MCHC 29.6(L) 32.0 - 36.0 G/DL 05/21/2024 5:57 PM RADIATION TECHNICIAN [facility] RDW 14.6(H) 11.5 - 14.5 % 05/21/2024 5:57 PM [facility] PLT 233 130 - 400 x10'3/uL 05/21/2024 5:57 PM [facility] MPV 11.0 9.3 - 12.2 FL 05/21/2024 5:57 PM [facility] DIFFERENTIAL TYPE AUTOMATED DIFFERENTIAL 05/21/2024 5:57 PM [facility] NEUTROPHILS % 53.2 % 05/21/2024 5:57 PM [facility] LYMPHOCYTES % 34.1 % 05/21/2024 5:57 PM [facility] MONOCYTES % 10.1 % 05/21/2024 5:57 PM [facility] EOSINOPHILS 1.9 % 05/21/2024 5:57 PM [facility] BASOPHILS 0.5 % 05/21/2024 5:57 PM RADIATION TECHNICIAN [facility] IMMATURE GRANS % 0.2 % 05/21/19 5:57 PM [facility] ABS. NEUTROPHILS 2.22 1.80 - 7.70 x10'3/uL 05/21/2024 5:57 PM [facility] ABS. LYMPHOCYTES 1.42 1.00 - 4.80 x10'3/uL 05/21/2024 5:57 PM RADIATION TECHNICIAN [facility] ABS. MONOCYTES 0.42 0.24 - 0.86 x10'3/uL 05/21/2024 5:57 PM RADIATION TECHNICIAN [facility] ABS. EOSINOPHILS 0.08 0.04 - 0.36 x10'3/uL 05/21/2024 5:57 PM RADIATION TECHNICIAN [facility] ABS. BASOPHILS 0.02 0.01 - 0.08 x10'3/uL 05/21/2024 5:57 PM RADIATION TECHNICIAN [facility] ABS. IMMATURE GRANULOCYTES 0.01 0.00 - 0.49 x10'3/uL 05/21/2024 5:57 PM RADIATION TECHNICIAN [facility] 05/21/2024 2:29 PM RADIATION TECHNICIAN Diana Kunz DO LABORATORY Final Resu lt [facility] [address] [place] [address], from Last 3 Months Insurance [facility] MEDICARE
--- OUTSIDE RECORDS SUMMARY | 2024-07-21 16:42 | XMS_ITS ---
Author Name May Carrillo Address [address] [place] [address] Phone [phone] [facility] Address [address] [place] [address] Phone [phone] Care Team Providers Care Diesel Mechanic Helper Name Role Phone May Carrillo Unavailable AaliyahDiana fagan Unavailable Functional Status No Results Mental Status No Results Allergies and Intolerances Name Onset Date Reaction Severity hydrocodone (Allergy) SatJan 10 19:57:00 EDT 20 23 levofloxacin (Allergy) SatJan 10 19:57:00 EDT 2 023 alendronate sodium (Allergy) SatJan 10 19:56:00 EDT 2022 Encounters Program Name Primary Diagnosis Admission Date/Time Dis charge Date/Time [facility] SatMay 11 09:20:00 EST [...] Indication: pain SatMay 28 13:00:00 EST 2024 [facility] May 30 01:04:00 EST 2024 calcitonin (salmon) [...] 2022 * End Date: * Text: * 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 (12)* Code: * Start Date: SatMay 19 00:00:00 EST 2024 * End Date: * Text: [id number] Maude receiving mechanically altered diet. 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* Code: * [...] :34 EDT 2024 Body weight 171.20 [lb_av] [facility] May 13 16:10 :36 EDT 2024 Systolic Blood Pressure 118.00 mm[Hg] Rosa Mmay 13 09:48:55 EDT 2024 Diastolic Blood Pressure 72.00 mm[Hg] Rosa Mmay 13 09:48:55 EDT 2024 Heart Rate 114.00 /min [facility] May 13 09:48 :55 EDT 2024 Body temperature 97.90 [degF] [facility] May 13 09:4 8:55 EDT 2024 Respiratory rate 16.00 /min [facility] May 13 09:4 8:55 EDT 2024 Pulse Oximetry 94.00 % [facility] May 13 09:48 :55 EDT 2024 Systolic Blood Pressure 118.00 mm[Hg] Rosa Mmay 13 09:09:32 EDT 2024 Diastolic Blood Pressure 72.00 mm[Hg] Rosa Mmay 13 09:09:32 EDT 2024 Heart Rate 114.00 /min [facility] May 13 09:09 :32 EDT 2024 Systolic Blood Pressure 150.00 mm[Hg] Rosa Mmay 13 00:15:26 EDT 2024 Diastolic Blood Pressure 73.00 mm[Hg] Rosa Mmay 13 00:15:26 EDT 2024 Heart Rate 84.00 /min Rosa M May 13 00:15 :26 EDT 2024 Body temperature 98.10 [degF] [facility] May 13 00:1 5:26 EDT 2024 [...] 8:16 EST 2024 Pulse Oximetry 95.00 % [place] May 31 03:48 :16 EST 2024 Systolic [...] 2024 Diastolic Blood Pressure 63.00 mm[Hg] SatMay 26 00:19:27 EST 2024 Heart Rate 73.00 /min SatMay [...] 00:15:59 EST 2024 Heart Rate 77.00 /min [id number]|2024-08-10 13:01:59|2024-08-10 13:01:59|PM.PNGS||||"Progress Note: A&P Assessment and Plan (1) Cholecystitis: Code(s): K81.9 - Cholecystitis, unspecified Status: Acute Assessment and Plan: Postop day 10 following laparoscopic non fenestrated subtotal cholecystectomy. WBC count up to 11-12,000 over the weekend and she is complaining of pain around the SRAVAN drain. There is erythema and induration around the drain, which was then removed at the bedside today. This could be the cause for her mild leukocytosis. She is currently on Augment, which may need to be adjusted. Will repeat labs and reassess again tomorrow. Could consider repeat imaging if not improving with drain removal. (2) Bile leak, postoperative: Code(s): K91.89 - Other postprocedural complications and disorders of digestive system; K83.8 - Other specified diseases of biliary tract Status: Acute Assessment and Plan: Postop bile leak resolved following ERCP and stent placement. Minimal output from the SRAVAN drain, which was removed today. Plan I have discussed the patient's case and plan of care with Dr. Chester. Subjective Subjective Date/Time Seen: 08/10/24 13:01 Interval history: Patient complains of RUQ pain. She had mental status changes over the weekend and was more weak yesterday. Her mentation has improved and she is more alert today per her daughter. She is oriented x 3. Therapy reports she is much stronger today and was min assist to the chair and was able to take a few steps. She has been afebrile, but her WBC count went up to 11-12k over the weekend. She continues to complain of pain by her SRAVAN drain in the RUQ. Minimal output from the drain. Exam Const: General: comfortable and no acute distress Orientation/consciousness: patient oriented x3 GI: Inspection: non-distended Auscultation: normal bowel sounds Other: Abdomen is nondistended and soft. The RUQ SRAVAN drain has very minimal cloudy serous drainage. The gauze dressing was removed and the skin around the SRAVAN drain is erythematous and induration. This area is tender. No fluctuance and no drainage coming around the SRAVAN drain. SRAVAN drain and sutures were removed, and a gauze dressing was applied. No tenderness throughout any other area of her abdomen. Objective Data Vital Signs Vital Signs: Vital Signs - 24 hr 08/09/24 14:00 08/09/24 16:00 08/09/24 20:00 Temperature 98.8 F Pulse Rate 89 86 Respiratory Rate 16 Blood Pressure 106/47 L Pulse Oximetry 99 99 Oxygen Delivery Nasal Cannula Oxygen Flow Rate 2 Fraction of Inspired Oxygen 08/09/24 20:00 08/09/24 20:09 08/10/24 00:00 Temperature 99.1 F Pulse Rate 86 86 88 Respiratory Rate 16 Blood Pressure 105/54 L Pulse Oximetry 99 Oxygen Delivery Oxygen Flow Rate Fraction of Inspired Oxygen 08/10/24 04:00 08/10/24 05:15 08/10/24 08:35 Temperature 98.1 F Pulse Rate 84 83 Respiratory Rate 16 Blood Pressure 113/52 L Pulse Oximetry 99 98 Oxygen Delivery Nasal Cannula Oxygen Flow Rate 2 Fraction of Inspired Oxygen 28 08/10/24 09:04 Temperature Pulse Rate 87 Respiratory Rate Blood Pressure Pulse Oximetry Oxygen Delivery Oxygen Flow Rate Fraction of Inspired Oxygen Intake/Output Intake/Output: Intake & Output 08/07/24 08/08/24 08/09/24 08/10/24 23:59 23:59 23:59 23:59 Intake Total 9876 243 3459 100 Output Total 585 430 380 Balance 605 10 960 100 Meds/Results Medications: Active Medications Generic Name Dose Route Start Last Admin Trade Name Freq PRN Reason Stop Dose Admin Acetaminophen 1,000 mg 07/22/24 08:52 08/08/24 22:25 Acetaminophen 500 Mg Tablet PO 1,000 mg Q6H PRN Administration Mild Pain (1-3) or Fever Amitriptyline HCl 20 mg 07/21/24 21:15 08/09/24 21:02 Amitriptyline Hcl 10 Mg Tablet PO 20 mg QHS MELISSA Administration Amoxicillin/Clavulanate Potassium 1 tablet 08/02/24 21:00 08/10/24 09:06 Amoxicillin/Clavulanate K 875-125 Mg Tab PO 1 tablet Q12HR MELISSA Administration Atorvastatin Calcium 40 mg 07/21/24 21:15 08/09/24 21:02 Atorvastatin 40 Mg Tablet PO 40 mg QHS MELISSA Administration Cyanocobalamin 500 mcg 07/22/24 09:00 08/10/24 09:04 Cyanocobalamin 500 Mcg Tablet PO 500 mcg QAM MELISSA Administration Cyanocobalamin 2,000 mcg 07/22/24 09:00 08/10/24 09:06 Cyanocobalamin 1,000 Mcg Tablet PO 2,000 mcg QAM MELISSA Administration Enoxaparin Sodium 40 mg 08/01/24 09:00 08/10/24 09:06 Enoxaparin 40 Mg/0.4 Ml Syringe SUB-Q 40 mg DAILY MELISSA Administration Gabapentin 200 mg 07/22/24 09:00 08/10/24 09:06 Gabapentin 100 Mg Capsule PO 200 mg BID MELISSA Administration Levothyroxine Sodium 25 mcg 07/22/24 06:30 08/10/24 05:49 Levothyroxine Sodium 25 Mcg Tablet PO 25 mcg DAILY@0630 MELISSA Administration Metoprolol Succinate 100 mg 08/08/24 09:00 08/10/24 09:04 Metoprolol Succinate Ext Rel 100 Mg Tabcr PO 100 mg [facility] Administration Ondansetron HCl 4 mg 07/22/24 08:52 07/30/24 23:22 Ondansetron Inj 4 Mg/2 Ml Vial IV PUSH 4 mg Q6H PRN Administration Nausea And Vomiting Ondansetron HCl 4 mg 08/05/24 12:23 08/05/24 12:38 Ondansetron Hcl Odt 4 Mg Tablet PO 4 mg Q6H PRN Administration Nausea And Vomiting Pantoprazole Sodium 40 mg 07/22/24 09:00 08/10/24 09:06 Pantoprazole 40 Mg Tablet PO 40 mg [facility] Administration Tamsulosin HCl 0.4 mg 07/22/24 09:00 08/10/24 09:05 Tamsulosin Hcl 0.4 Mg Capsule PO 0.4 mg DAILY MELISSA Administration Tramadol HCl 50 mg 08/02/24 09:21 08/08/24 05:50 Tramadol Hcl (*Crx) 50 Mg Tablet PO 50 mg Q6H PRN Administration Pain Rated 4-6 Radiology Results: ITS Impressions Abdomen/Pelvis CT 07/22/24 [...] 14:08 IMPRESSION: 1. Successful upsizing to 12 Irish of a right upper quadrant percutaneous cholecystostomy tube. 2. Patent cystic and common bile ducts. Chest X-Ray 08/04/24 13:43 IMPRESSION: Bibasilar atelectasis versus with left pleural effusion. Head CT 08/08/24 13:23 IMPRESSION: 1. Stable age-related changes including mild to moderate diffuse volume loss and moderate scattered white matter hypoattenuation consistent with chronic small vessel ischemic disease. Labs Labs: Laboratory Results - last 24 hr 08/10/24 05:02 WBC 11.8 H RBC 2.72 L Hgb 7.7 L Hct 26.1 L MCV 96.0 MCH 28.3 MCHC 29.5 L RDW 15.2 H Plt Count 234 MPV 10.2 Immature Gran % (Auto) 0.7 H Neut % (Auto) 77.6 H Lymph % (Auto) 14.0 L Hanson % (Auto) 6.0 Eos % (Auto) 1.6 Baso % (Auto) 0.1 L Lymph # (Auto) 1.66 Hanson # (Auto) 0.7 H Eos # (Auto) 0.2 Baso # (Auto) 0.0 Abs Immat Gran (auto) 0.08 H Absolute Neuts (auto) 9.2 H Absolute Nucleated RBC 0.000 Band Neutrophils % Not Reportable Nucleated RBC % 0.0 Platelet Estimate Adequate Polychromasia 1+ Hypochromasia 1+ Basophilic Stippling 1+ Anisocytosis 1+ Target Cells 1+ Schistocytes None seen Sodium 132 L Potassium 3.7 Chloride 99 Carbon Dioxide 29 Anion Gap 4 BUN 12 Creatinine 0.51 L Estim Creat Clear Calc 55 Estimated GFR > 60 Glucose 100 Calcium 8.3 L Magnesium 1.6 Total Bilirubin 0.3 AST 25 ALT 14 Alkaline Phosphatase 85 Total Protein 5.0 L Albumin 2.5 L"
--- OUTSIDE RECORDS SUMMARY | 2024-07-21 16:42 | XMS_ITS | Continuity of Care Document ---
Author Organization [facility] [employer] Address [address] [place] [address] Phone Care Team Providers Care Supervisor Assembly Stock Name Role Phone Conversion MD, Doctor Unavailable [...] 1 QD S - No Longer Active PREVACID 30MG CAPSULE DR 1 QHS July - No Longer Active MIACALCIN 200U NASAL SPRAY 1 QD M - No Longer Active MIACALCIN 200U NASAL SPRAY 1 QD J - No Longer Active PREVACID 30MG CAPS 1 QHS - No Longer Active PRILOSEC 40MG CAPSULE DR 1 QHS July - No Longer Active MIACALCIN 200U/DOSE APPLICS 1 QD - No Longer Active PRILOSEC 40MG CAPS 1 QHS - No Longer Active Advance Directives Directive Yes / No Effective Date File Name No Information Encounters Encounter Description Practice Location Reason(s) For Visit Diagnoses Date Provider Providers Copied on Encounter [facility], [address], [place], [place], [address] , tel: [phone] [facility] No Information [address] [facility], [place], [address], . [facility], [address], [place], [place], [address] , tel: [phone] [facility] PERIPHERAL VERTIGO NOSDIZZINESS AND GIDDINESS [address] [facility], [place], [address], [place]. [facility], [address], [place], [place], [address] , tel: [phone] [facility] DIFFUS CYSTIC MASTOPATHYCHRONIC BRONCHITIS NOS 3 Matt Bonilla. [address], [address], [place], [place], [address]. tel: [phone] [facility], [address], [place], [place], [address] , tel: [phone] [facility] COUGHMIXED HYPERLIPIDEMIA 3 Matt Bonilla. [address], [address], [place], [address]. tel: [phone] [facility], [address], [place], [place], [address] , tel: [phone] [facility] CHRONIC SINUSITIS NOS 3 Matt Bonilla. [address], [address], [place], [address]. tel: [phone] [facility], [address], [place], [place], [address] , [place] tel: [phone] [facility] JOINT PAIN-UNSPEC 2 Matt Bonilla. [address], [address], [place], [place], [address]. tel:[phone] [facility], [address], [place], [place], [address] , [place] tel: [phone] [facility] MASTODYNIA Apr-2 9-200 2 Matt Bonilla. [address], [address], [place], [place], [address]. tel: [phone] [facility], [address], [place], [place], [address] , [place] tel: [phone] [facility] OSTEOPOROSIS NOS Mar- 1-200 2 Matt Irene. [address], [address], [place], [place], [address]. tel: [phone] [facility], [address], [place], [place], [address] , [place] tel: [phone] [facility] ESOPHAGEAL REFLUX Sep- 0-200 1 Matt Bonilla. [address], [address], [place], [place], [address]. tel: [phone] [facility], [address], [place], [place], [address] , [place] tel: [phone] [facility] MYALGIA AND MYOSITIS NOSSCREEN MAL NEOP-CERVIX Sep- 7-200 1 Matt Bonilla. [address], [address], [place], [place], [address]. tel: [phone] [facility], [address], [place], [place], [address] , [place] tel: [phone] [facility] NONSPECIF SKIN ERUPT NEC July- 0-200 1 Matt Bonilla. [address], [address], [place], [place], [address]. tel: [phone] [facility], [address], [place], [place], [address] , [place] tel:[phone] [facility] ABN PAP SMEAR-OTH SITE Jose-2 2-200 0 Matt Bonilla. [address], [address], [place], [place], [address]. tel:[phone] [facility], [address], [place], [place], [address] , tel: [phone] [facility] BACKACHE NOSMENOPAUSAL DISORDER NOS 0-200 0 Matt Bonilla. [address], [address], [place], [place], [address]. tel:[phone] [facility], [address], [place], [place], [address] , tel: [phone] [facility] ABNORMAL WEIGHT GAINROUTINE MEDICAL EXAMALLERGY, UNSPECIFIED 3-200 0 Matt Bonilla. [address], [address], [place], [place], [address]. tel:[phone] Family History Family Member Type Diagnosis Age [...]
--- NOTE | 2024-07-21 17:05 | ADMGEN ---
This patient, Maude Milton, was admitted to 3 [facility] Surg Room 301-01 at 1330. Patient/family oriented to hospital policies and general routines including ID bracelet, bed and alarms, visiting hours, pain management, procedures, bathroom and other care routines, personal items, smoking policy, room service/diet, and visiting hours. Information on how to activate the Rapid Response Team has been discussed. Patient/Family are encouraged to report perceived risks to care and to ask questions if they do not understand what they are told or what they should do.
--- OUTSIDE RECORDS SUMMARY | 2024-07-21 17:14 | XMS_ITS | Continuity of Care Document ---
Author Organization [facility] Address [address] [place] [address] [place] [address] Phone Care Team Providers Care Global Vp Creative + Content Marketing Name Role Phone [facility] [employer] [employer] Unavailable Unavail able Deysi Scherer Unavailable Unavailable Advance Directives Directive Yes / No Effective Date File Name No Information Encounters Encounter Description Practice Location Reason(s) For Visit Diagnoses Date Provider Providers Copied on Encounter [facility], [address] [place] [address] [address], [place], [place], [address], [place] tel:[phone] SEC [facility] No Information 200 [address] [facility] [place] [address] [facility], [address], [place], [place], [address] , [place]. [phone] Consulting Provider: Deysi Scherer, [address] [place] [address], [place], [address]. tel:[phone] Family History Family Member Type Diagnosis Age [...]
--- OUTSIDE RECORDS SUMMARY | 2024-07-21 17:14 | XMS_ITS | Clinical Summary ---
Author Organization [facility] [place] Address [address] [place] [address] Phone Care Team Providers Care Transportation Driver Name Role Phone Milagros Haq MD Primary Care Provider [phone] Allergies Active Allergy Reactions Criticality Noted Date [...] 9 Active nitroglycerin (NITROMIST) 400 mcg/spray Aerosol, [place] place 1 spray by translingual route onto [...] MD (General) Referring Provider: Milagros Haq MD [address] [place] [address] Other: Problem Noted Date Diagnosed Date Inversion [...] 2013 INFLUENZA VACCINE (#1) [address] [place] [address] MEDICARE [employer] [facility] [id number] [place] [address] Care Teams Transportation Driver Relationship Specialty Start Date End Date Milagros Haq MD [address] [place] [address] PCP - General Family Practice 07/18/12
--- OUTSIDE RECORDS SUMMARY | 2024-07-21 17:14 | XMS_ITS | Clinical Summary ---
Author Organization [facility] Address [address] [place] [address] Care Team Providers Care Retail General Manager Name Role Phone Unavailable Primary Care Provider Unavailabl e Encounters Date Type Department Care Team Description 05/21/2024 5:42 PM TRANSFER PUMPER - 05/21/2024 11:59 PM TRANSFER PUMPER Hospital Encounter [facility] [address] Diana Kunz DO Discharge Disposition: Home or Self Care (Routine Discharge) 05/21/2024 Orders Only [facility] [place] [address] Diana Kunz DO from Last 3 Months [...] PRO-BRAIN NATRIURETIC PEPTIDE Routine 05/21/2024 2:29 PM TRANSFER PUMPER Anemia, unspecified Vitamin D insufficiency Acute diastolic heart failure ([facility]/HCC HHS/HCC) CBC W/DIFF AUTOMATED Routine 05/21/2024 2:29 PM TRANSFER PUMPER Anemia, unspecified Vitamin D insufficiency Acute diastolic heart failure (CMS/HCC HHS/HCC) COMPREHENSIVE METABOLIC PANEL Routine 05/21/2024 2:29 PM TRANSFER PUMPER Anemia, unspecified Vitamin D insufficiency Acute diastolic heart failure (CMS/HCC HHS/HCC) from Last 3 Months Results * (ABNORMAL) PRO-BRAIN NATRIURETIC PEPTIDE (05/21/2024 2:29 PM TRANSFER PUMPER) PRO-B TYPE NATRIURETIC PEPTIDE 1,336(H) <450 PG/ML 05/21/2024 6:22 PM TRANSFER PUMPER [facility] Comment: CUT POINTS ESTABLISHED BY INTERNATIONAL [...] 72% FOR ACUTE CHF. 05/21/2024 2:29 PM TRANSFER PUMPER us Diana Kunz DO LABORATORY Final Resu lt [facility] [address] [place] [address], [place] [phone] * (ABNORMAL) COMPREHENSIVE METABOLIC PANEL (05/21/2024 2:29 PM TRANSFER PUMPER) GLUCOSE 126(H) 70 - 99 MG/DL 05/21/2024 6:22 PM TRANSFER PUMPER [facility] BUN 14 7 - 18 MG/DL 05/21/2024 6:22 PM [facility] CREATININE S/P/B 0.70 0.55 - 1.02 MG/DL 05/21/2024 6:22 PM [facility] SODIUM S/P/B 137 136 - 145 MMOL/L 05/21/2024 6:22 PM [facility] POTASSIUM S/P/B 3.6 3.5 - 5.1 MMOL/L 05/21/2024 6:22 PM [facility] CHLORIDE S/P/B 105 97 - 115 MMOL/L 05/21/2024 6:22 PM [facility] CO2 30.3 21 - 32 MMOL/L 05/21/2024 6:22 PM [facility] CALCIUM S/P/B 9.1 8.5 - 10.1 MG/DL 05/21/2024 6:22 PM [facility] BILIRUBIN TOTAL S/P/B 0.4 0.2 - 1.2 MG/DL 05/21/2024 6:22 PM [facility] Comment: THIS ASSAY IS NOT RECOMMENDED FOR PATIENTS UNDERGOING TREATMENT WITH ELTROMBOPAG DUE TO THE POTENTIAL FOR FALSELY ELEVATED RESULTS. TOTAL PROTEIN S/P/B 6.3(L) 6.4 - 8.2 G/DL 05/21/2024 6:22 PM [facility] ALBUMIN S/P/B 2.6(L) 3.4 - 5.0 G/DL 05/21/2024 6:22 PM [facility] AST 13(L) 15 - 37 U/L 05/21/2024 6:22 PM [facility] ALT 15 14 - 55 U/L 05/21/2024 6:22 PM [facility] ALKALINE PHOSPHATASE S/P/B 83 50 - 136 U/L 05/21/2024 6:22 PM TRANSFER PUMPER [facility] ANION GAP 1.7(L) 2 - 10 MMOL/L 05/21/2024 6:22 PM [facility] BUN CREATININE RATIO 20.0 6 - 26 05/21/2024 6:22 PM [facility] A/G RATIO 0.7(L) 1.0 - 2.0 RATIO 05/21/2024 6:22 PM [facility] GFR ESTIMATE 84(L) >90 ML/MIN/1.7 3 M2 05/21/2024 6:22 PM [facility] Comment: NOTE: eGFR is not calculated for patients <18 years of age or gender unknown. This is an estimated GFR calculation using the new CKD EPI creatinine equation without race and so does not require a correction factor for race. This estimated GFR should not be used for calculating drug doses. 05/21/2024 2:29 PM TRANSFER PUMPER us Diana Kunz DO LABORATORY Final Resu lt [facility] [address] [place] [address], [place] [phone] * (ABNORMAL) CBC W/DIFF AUTOMATED (05/21/2024 2:29 PM TRANSFER PUMPER) WBC 4.17(L) 4.5 - 11.0 x10'3/uL 05/21/2024 5:57 PM TRANSFER PUMPER [facility] RBC 3.31(L) 4.20 - 5.40 x10'6/uL 05/21/2024 5:57 PM TRANSFER PUMPER [facility] HGB 9.8(L) 12.0 - 16.0 G/DL 05/21/2024 5:57 PM TRANSFER PUMPER [facility] HCT 33.1(L) 38.0 - 48.0 % 05/21/2024 5:57 PM TRANSFER PUMPER [facility] MCV 100.0(H) 81.0 - 99.0 FL 05/21/2024 5:57 PM [facility] MCH 29.6 27.0 - 31.0 PG 05/21/2024 5:57 PM [facility] MCHC 29.6(L) 32.0 - 36.0 G/DL 05/21/2024 5:57 PM TRANSFER PUMPER [facility] RDW 14.6(H) 11.5 - 14.5 % 05/21/2024 5:57 PM [facility] PLT 233 130 - 400 x10'3/uL 05/21/2024 5:57 PM [facility] MPV 11.0 9.3 - 12.2 FL 05/21/2024 5:57 PM [facility] DIFFERENTIAL TYPE AUTOMATED DIFFERENTIAL 05/21/2024 5:57 PM [facility] NEUTROPHILS % 53.2 % 05/21/2024 5:57 PM [facility] LYMPHOCYTES % 34.1 % 05/21/2024 5:57 PM [facility] MONOCYTES % 10.1 % 05/21/2024 5:57 PM [facility] EOSINOPHILS 1.9 % 05/21/2024 5:57 PM [facility] BASOPHILS 0.5 % 05/21/2024 5:57 PM TRANSFER PUMPER [facility] IMMATURE GRANS % 0.2 % 05/21/19 5:57 PM [facility] ABS. NEUTROPHILS 2.22 1.80 - 7.70 x10'3/uL 05/21/2024 5:57 PM [facility] ABS. LYMPHOCYTES 1.42 1.00 - 4.80 x10'3/uL 05/21/2024 5:57 PM TRANSFER PUMPER [facility] ABS. MONOCYTES 0.42 0.24 - 0.86 x10'3/uL 05/21/2024 5:57 PM TRANSFER PUMPER [facility] ABS. EOSINOPHILS 0.08 0.04 - 0.36 x10'3/uL 05/21/2024 5:57 PM TRANSFER PUMPER [facility] ABS. BASOPHILS 0.02 0.01 - 0.08 x10'3/uL 05/21/2024 5:57 PM TRANSFER PUMPER [facility] ABS. IMMATURE GRANULOCYTES 0.01 0.00 - 0.49 x10'3/uL 05/21/2024 5:57 PM TRANSFER PUMPER [facility] 05/21/2024 2:29 PM TRANSFER PUMPER Diana Kunz DO LABORATORY Final Resu lt [facility] [address] [place] [address], from Last 3 Months Insurance [facility] MEDICARE
--- OUTSIDE RECORDS SUMMARY | 2024-07-21 17:14 | XMS_ITS ---
Author Name May Carrillo Address [address] [place] [address] Phone [phone] [facility] [employer] [facility] Address [address] [place] [address] Phone [phone] Care Team Providers Care Computer Game Designer Name Role Phone May Carrillo Unavailable AaliyahDiana fagan Unavailable Functional Status No Results Mental Status No Results Allergies and Intolerances Name Onset Date Reaction Severity hydrocodone (Allergy) SatJan 10 19:57:00 EDT 20 23 levofloxacin (Allergy) SatJan 10 19:57:00 EDT 2 023 alendronate sodium (Allergy) SatJan 10 19:56:00 EDT 2022 Encounters Program Name Primary Diagnosis Admission Date/Time Dis charge Date/Time Snf Care Facility [facility] SatMay [...] Indication: pain SatMay 28 13:00:00 EST 2024 [facility] May 30 01:04:00 EST 2024 calcitonin [...] 2022 * End Date: * 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 (12)* Code: * Start Date: SatMay 19 00:00:00 EST 2024 * End Date: * Text: [id number] Maude receiving mechanically altered diet. (12) * [...] Concerns * Problem Atherosclerotic heart disease of [place] coronary artery without angina pectoris* Code: * [...] :34 EDT 2024 Body weight 171.20 [lb_av] [facility] May 13 16:10 :36 EDT 2024 Systolic Blood Pressure 118.00 mm[Hg] Rosa Mmay 13 09:48:55 EDT 2024 Diastolic Blood Pressure 72.00 mm[Hg] Rosa Mmay 13 09:48:55 EDT 2024 Heart Rate 114.00 /min [facility] May 13 09:48 :55 EDT 2024 Body temperature 97.90 [degF] [facility] May 13 09:4 8:55 EDT 2024 Respiratory rate 16.00 /min [facility] May 13 09:4 8:55 EDT 2024 Pulse Oximetry 94.00 % [facility] May 13 09:48 :55 EDT 2024 Systolic Blood Pressure 118.00 mm[Hg] Rosa Mmay 13 09:09:32 EDT 2024 Diastolic Blood Pressure 72.00 mm[Hg] Rosa Mmay 13 09:09:32 EDT 2024 Heart Rate 114.00 /min [facility] May 13 09:09 :32 EDT 2024 Systolic Blood Pressure 150.00 mm[Hg] Rosa Mmay 13 00:15:26 EDT 2024 Diastolic Blood Pressure 73.00 mm[Hg] Rosa Mmay 13 00:15:26 EDT 2024 Heart Rate 84.00 /min Rosa M May 13 00:15 :26 EDT 2024 Body temperature 98.10 [degF] [facility] May 13 00:1 5:26 EDT 2024 Respiratory [...] 8:16 EST 2024 Pulse Oximetry 95.00 % [facility] May 31 03:48 :16 EST 2024 Systolic [...] :58 EST 2024 Body temperature 97.80 [degF] Satb 08:3 5:58 EST 2024 Respiratory rate 20.00 /min SatMay 25 08:3 5:58 EST 2024 Pulse Oximetry 95.00 % Satb 08:35 :58 EST 2024 Systolic Blood Pressure 162.00 mm[Hg] Satb 00:15:59 EST 2024 Diastolic Blood Pressure 75.00 mm[Hg] Satb 00:15:59 EST 2024 Heart Rate 77.00 /min [id number]|2024-08-05 12:48:22|2024-08-05 12:48:22|PM.IMPN||||"Progress Note: A&P Assessment and Plan (1) Acute cholecystitis: Code(s): K81.0 - Acute cholecystitis Status: Acute Assessment and Plan: Cholecystostomy tube 07/23 in IR. Continue have purulent discharge from the cholecystotomy tube Management per general surgeon She is status post cholecystectomy 07/31/2024. Augmentin 875-125 mg 1 tablet PO q 12. GI consult. NPO after midnight for possible ERCP to evaluate for bile leak. (2) Essential hypertension: Code(s): I10 - Essential (primary) hypertension Status: Acute Assessment and Plan: Metoprolol Succinate 50 mg PO QAM. Blood pressure 129/64. (3) Coronary artery disease involving [place] coronary artery of [place] heart: Code(s): I25.10 - Atherosclerotic heart disease of [place] coronary artery without angina pectoris Status: Acute Assessment and Plan: Atorvastatin 40 mg PO QHS. (4) Severe protein-calorie malnutrition: Code(s): E43 - Unspecified severe protein-calorie malnutrition Status: Acute Assessment and Plan: Protein 6.0. Severe protein calorie malnutrition related to taste changes, poor appetite, nausea as evidenced by intakes <75% needs >1 month. Weight loss-15%/3 months: moderate fat loss, severe muscle wasting. Ensure Enlive TID and Nutritional ice cream TID. Radiation Officer following. (5) Atrial fibrillation: Qualifiers: Atrial fibrillation type: unspecified Qualified Code(s): I48.91 - Unspecified atrial fibrillation Code(s): I48.91 - Unspecified atrial fibrillation Status: Acute Assessment and Plan: Metoprolol Succinate 50 mg PO daily. Lovenox 40 mg subq daily. Telemetry. Eliquis on hold until evaluated by GI. (6) Hypothyroidism: Code(s): E03.9 - Hypothyroidism, unspecified Status: Acute Assessment and Plan: Levothyroxine 25 mcg PO daily. (7) T12 compression fracture: Code(s): S22.080A - Wedge compression fracture of T11-T12 vertebra, initial encounter for closed fracture Status: Acute Assessment and Plan: Patient is followed by pain management and to have kyphoplasty, patient was supposed to have this week but ended up hospitalized. TLSO ordered. PT/OT No focal deficits no urinary fecal incontinence Plan Subjective Date/time seen: 08/05/24 12:48 Interval history: Patient sitting up in chair with daughter at bedside. Patient reports feeling a little nauseous. Patient denies chest pain, palpitations, headache, dizziness, or vomiting. Review of Systems Review of Systems: All systems reviewed & are unremarkable except as noted in HPI and below Exam Const: General: comfortable and no acute distress Resp: Effort & Inspection: normal respiratory effort Auscultation: clear to auscultation bilaterally Cardio: Rate: tachycardic Rhythm: regular rhythm Other: ST -112 GI: GI Palp: Yes Soft to palpation Auscultation: normal bowel sounds Other: Dressing C/D/I. SRAVAN drain will bilious drainage. Neuro: Speech: normal speech Extrem: General: no pedal edema Psych: Mental Status: mental status grossly normal Affect: normal affect Objective Data Vital Signs Vital Signs: Vital Signs - 24 hr 08/04/24 14:00 08/04/24 16:00 08/04/24 20:00 Temperature 98.2 F Pulse Rate 85 76 84 Respiratory Rate 18 Blood Pressure 123/63 Pulse Oximetry 98 Oxygen Delivery 08/04/24 20:00 08/04/24 22:00 08/05/24 00:00 Temperature 97.5 F L Pulse Rate 83 74 Respiratory Rate 18 Blood Pressure 138/76 Pulse Oximetry 100 Oxygen Delivery Room Air 08/05/24 04:00 08/05/24 05:48 08/05/24 08:45 Temperature 98.0 F Pulse Rate 74 81 Respiratory Rate 14 Blood Pressure 121/78 Pulse Oximetry 98 Oxygen Delivery Room Air 08/05/24 08:45 08/05/24 08:51 Temperature Pulse Rate 86 86 Respiratory Rate Blood Pressure 135/68 Pulse Oximetry 96 Oxygen Delivery Intake/Output Intake/Output: Intake & Output 08/02/24 08/03/24 08/04/24 08/05/24 23:59 23:59 23:59 23:59 Intake Total 463 183 2993 240 Output Total 875 299 641 50 Balance -931 237 2095 190 Meds/Results Medications: Active Medications Generic Name Dose Route Start Last Admin Trade Name Freq PRN Reason Stop Dose Admin Acetaminophen 1,000 mg 07/22/24 08:52 08/04/24 22:25 Acetaminophen 500 Mg Tablet PO 1,000 mg Q6H PRN Administration Mild Pain (1-3) or Fever Amitriptyline HCl 20 mg 07/21/24 21:15 08/04/24 22:25 Amitriptyline Hcl 10 Mg Tablet PO 20 mg QHS MELISSA Administration Amoxicillin/Clavulanate Potassium 1 tablet 08/02/24 21:00 08/05/24 08:46 Amoxicillin/Clavulanate K 875-125 Mg Tab PO 1 tablet Q12HR MELISSA Administration Atorvastatin Calcium 40 mg 07/21/24 21:15 08/04/24 22:25 Atorvastatin 40 Mg Tablet PO 40 mg QHS ON LICENSE OF [facility] Administration Cyanocobalamin 500 mcg 07/22/24 09:00 08/05/24 08:46 Cyanocobalamin 500 Mcg Tablet PO 500 mcg QAM ON LICENSE OF [facility] Administration Cyanocobalamin 2,000 mcg 07/22/24 09:00 08/05/24 08:46 Cyanocobalamin 1,000 Mcg Tablet PO 2,000 mcg QAM ON LICENSE OF [facility] Administration Enoxaparin Sodium 40 mg 08/01/24 09:00 08/05/24 09:01 Enoxaparin 40 Mg/0.4 Ml Syringe SUB-Q 40 mg DAILY ON LICENSE OF [facility] Administration Gabapentin 200 mg 07/22/24 09:00 08/05/24 08:46 Gabapentin 100 Mg Capsule PO 200 mg BID ON LICENSE OF [facility] Administration Ketorolac Tromethamine 15 mg 07/25/24 13:23 08/04/24 22:26 Ketorolac 15 Mg/Ml Vial (*Bkc) IV PUSH 15 mg Q6H PRN Administration Pain Rated 4-6 Levothyroxine Sodium 25 mcg 07/22/24 06:30 08/05/24 05:47 Levothyroxine Sodium 25 Mcg Tablet PO 25 mcg DAILY@0630 ON LICENSE OF [facility] Administration Metoprolol Succinate 50 mg 07/24/24 09:00 08/05/24 08:51 Metoprolol Succinate Ext Rel 50 Mg Tabcr PO 50 mg QAM ON LICENSE OF [facility] Administration Miscellaneous Information 0 each 08/04/24 00:01 08/05/24 01:40 Ketorolac Renew If Needs Or Will Auto D/C XX 09/03/24 00:00 Not Given CLARIFY ON LICENSE OF [facility] Morphine Sulfate 2 mg 07/30/24 22:38 07/30/24 23:22 Morphine Sulfate (*Crx) 2 Mg/Ml Inj IV PUSH 2 mg Q4H PRN Administration pain 7-10 Ondansetron HCl 4 mg 07/22/24 08:52 07/30/24 23:22 Ondansetron Inj 4 Mg/2 Ml Vial IV PUSH 4 mg Q6H PRN Administration Nausea And Vomiting Ondansetron HCl 4 mg 07/31/24 15:24 Ondansetron Inj 4 Mg/2 Ml Vial IV PUSH ONCE PRN Nausea Ondansetron HCl 4 mg 08/05/24 12:23 08/05/24 12:38 Ondansetron Hcl Odt 4 Mg Tablet PO 4 mg Q6H PRN Administration Nausea And Vomiting Pantoprazole Sodium 40 mg 07/22/24 09:00 08/05/24 08:46 Pantoprazole 40 Mg Tablet PO 40 mg QAM MELISSA Administration Tamsulosin HCl 0.4 mg 07/22/24 09:00 08/05/24 08:46 Tamsulosin Hcl 0.4 Mg Capsule PO 0.4 mg DAILY MELISSA Administration Tramadol HCl 50 mg 08/02/24 09:21 08/03/24 11:27 Tramadol Hcl (*Crx) 50 Mg Tablet PO [...] 14:08 IMPRESSION: 1. Successful upsizing to 12 German of a right upper quadrant percutaneous cholecystostomy tube. 2. Patent cystic and common bile ducts. Chest X-Ray 08/04/24 13:43 IMPRESSION: Bibasilar atelectasis versus with left pleural effusion. Labs Labs: Laboratory Results - last 24 hr 08/04/24 08/05/24 14:48 06:06 WBC 6.0 RBC 3.13 L Hgb 8.9 L Hct 29.7 L MCV 94.9 MCH 28.4 MCHC 30.0 L RDW 15.5 H Plt Count 222 MPV 10.1 Immature Gran % (Auto) 0.2 Neut % (Auto) 52.0 Lymph % (Auto) 32.4 [place] % (Auto) 7.5 Eos % (Auto) 7.6 H Baso % (Auto) 0.3 Lymph # (Auto) 1.95 [place] # (Auto) 0.5 Eos # (Auto) 0.5 H Baso # (Auto) 0.0 Abs Immat Gran (auto) 0.01 Absolute Neuts (auto) 3.1 Absolute Nucleated RBC 0.000 Nucleated RBC % 0.0 Sodium 135 L Potassium 4.4 Chloride 105 Carbon Dioxide 28 Anion Gap 2 L BUN 12 Creatinine 0.46 L Estim Creat Clear Calc 60 Estimated GFR > 60 Glucose 95 Calcium 8.8 Magnesium 1.9 Total Bilirubin 0.2 AST 22 ALT 17 Alkaline Phosphatase 101 Total Protein 6.0 L Albumin 2.8 L Urine Color Yellow Urine Appearance Clear Urine pH 6.0 Ur Specific [place] 1.010 Urine Protein Negative Urine Glucose (UA) Negative Urine Ketones Negative Ur Blood (Man) Negative Urine Nitrate Negative Urine Bilirubin Negative Urine Urobilinogen 0.2 Add Ur Microanalysis Reviewed Leukocyte Esterase Rfl Trace H Urine RBC 0-2 Urine WBC 0-5 Ur Squamous Epith Cells None seen Calcium Oxalate Crystal Present Urine Bacteria None seen Urine Casts 0-2 Quality VTE Prophylaxis VTE prophylaxis: mechanical ordered and pharmacologic ordered"
--- OUTSIDE RECORDS SUMMARY | 2024-07-21 17:14 | XMS_ITS | Continuity of Care Document ---
Author Organization [employer] Address [address] [place] [address] Phone Care Team Providers Care Hose Mender Name Role Phone Conversion MD, Doctor Unavailable [...] Diagnoses Date Provider Providers Copied on Encounter [employer], [address], [place], [place], [address] , tel: [phone] [facility] No Information 1 Conversion Doctor. [address] [facility], [place], [address], . [employer], [address], [place], [place], [address] , tel: [phone] [facility] PERIPHERAL VERTIGO NOSDIZZINESS AND GIDDINESS 3 Conversion Doctor. [address] [facility], [place], [address], [place]. [employer], [address], [place], [place], [address] , tel: [phone] [facility] DIFFUS CYSTIC MASTOPATHYCHRONIC BRONCHITIS NOS 3 Matt Bonilla. [address] [facility], [address], [place], [place], [address]. tel: [phone] [employer], [address], [place], [place], [address] , tel: [phone] [facility] COUGHMIXED HYPERLIPIDEMIA 3 Matt Bonilla. [address] [facility], [address], [place], [address]. tel: [phone] [employer], [address], [place], [place], [address] , tel: [phone] [facility] CHRONIC SINUSITIS NOS 3 Matt Bonilla. [address] [facility], [address], [place], [address]. tel: [phone] [employer], [address], [place], [place], [address] , [place] tel: [phone] [facility] JOINT PAIN-UNSPEC 2 Matt Bonilla. [address] [facility], [address], [place], [place], [address]. tel:[phone] [employer], [address], [place], [place], [address] , [place] tel: [phone] [facility] MASTODYNIA Apr-2 9-200 2 Matt Bonilla. [address] [facility], [address], [place], [place], [address]. tel: [phone] [facility], [address], [place], [place], [address] , [place] tel: [phone] [facility] OSTEOPOROSIS NOS Mar- 1-200 2 Matt Irene. [address] [facility], [address], [place], [place], [address]. tel: [phone] [employer], [address], [place], [place], [address] , [place] tel: [phone] [facility] ESOPHAGEAL REFLUX Sep- 0-200 1 Matt Bonilla. [address] [facility], [address], [place], [place], [address]. tel: [phone] [employer], [address], [place], [place], [address] , [place] tel: [phone] [facility] MYALGIA AND MYOSITIS NOSSCREEN MAL NEOP-CERVIX Sep- 7-200 1 Matt Bonilla. [address] [facility], [address], [place], [place], [address]. tel: [phone] [employer], [address], [place], [place], [address] , [place] tel: [phone] [facility] NONSPECIF SKIN ERUPT NEC July- 0-200 1 Matt Bonilla. [address] [facility], [address], [place], [place], [address]. tel: [phone] [employer], [address], [place], [place], [address] , [place] tel:[phone] [facility] ABN PAP SMEAR-OTH SITE Ojse-2 2-200 0 Matt Bonilla. [address] [facility], [address], [place], [place], [address]. tel:[phone] [employer], [address], [place], [place], [address] , tel: [phone] [facility] BACKACHE NOSMENOPAUSAL DISORDER NOS 0-200 0 Matt Bonilla. [address] [facility], [address], [place], [place], [address]. tel:[phone] [employer], [address], [place], [place], [address] , tel: [phone] [facility] ABNORMAL WEIGHT GAINROUTINE MEDICAL EXAMALLERGY, UNSPECIFIED 3-200 0 Matt Bonilla. [address] [facility], [address], [place], [place], [address]. tel:[phone] Family History Family Member Type Diagnosis Age [...]
--- OUTSIDE RECORDS SUMMARY | 2024-07-21 17:14 | XMS_ITS ---
Author Name May Carrillo Address [address] [place] [address] Phone [phone] [facility] [employer] [facility] Address [address] [place] [address] Phone [phone] Care Team Providers Care Cloud Security Architect Name Role Phone May Carrillo Unavailable [phone] AaliyahDiana fagan Unavailable Functional Status No Results Mental Status No Results Allergies and Intolerances Name Onset Date Reaction Severity hydrocodone (Allergy) SatJan 10 19:57:00 EDT 20 23 levofloxacin (Allergy) SatJan 10 19:57:00 EDT 2 023 alendronate sodium (Allergy) SatJan 10 19:56:00 EDT 2022 Encounters Program Name Primary Diagnosis Admission Date/Time Dis charge Date/Time Custodial Care Facility [facility] SatMay 11 09:20:00 EST [...] Indication: pain SatMay 28 13:00:00 EST 2024 [facility] May 30 01:04:00 EST 2024 calcitonin [...] 2022 * End Date: * 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 (12)* Code: * Start Date: SatMay 19 00:00:00 EST 2024 * End Date: * Text: [id number] Maude receiving mechanically altered diet. (12) * [...] Concerns * Problem Atherosclerotic heart disease of [place] coronary artery without angina pectoris* Code: * [...] :34 EDT 2024 Body weight 171.20 [lb_av] [facility] May 13 16:10 :36 EDT 2024 Systolic Blood Pressure 118.00 mm[Hg] Rosa Mmay 13 09:48:55 EDT 2024 Diastolic Blood Pressure 72.00 mm[Hg] Rosa Mmay 13 09:48:55 EDT 2024 Heart Rate 114.00 /min [facility] May 13 09:48 :55 EDT 2024 Body temperature 97.90 [degF] [facility] May 13 09:4 8:55 EDT 2024 Respiratory rate 16.00 /min [facility] May 13 09:4 8:55 EDT 2024 Pulse Oximetry 94.00 % [facility] May 13 09:48 :55 EDT 2024 Systolic Blood Pressure 118.00 mm[Hg] Rosa Mmay 13 09:09:32 EDT 2024 Diastolic Blood Pressure 72.00 mm[Hg] Rosa Mmay 13 09:09:32 EDT 2024 Heart Rate 114.00 /min [facility] May 13 09:09 :32 EDT 2024 Systolic Blood Pressure 150.00 mm[Hg] Rosa Mmay 13 00:15:26 EDT 2024 Diastolic Blood Pressure 73.00 mm[Hg] Rosa Mmay 13 00:15:26 EDT 2024 Heart Rate 84.00 /min Rosa M May 13 00:15 :26 EDT 2024 Body temperature 98.10 [degF] [facility] May 13 00:1 5:26 EDT 2024 Respiratory [...] 8:16 EST 2024 Pulse Oximetry 95.00 % [place] May 31 03:48 :16 EST 2024 Systolic [...] 2024 Systolic Blood Pressure 146.00 mm[Hg] SatMay 26:19:27 EST 2024 Diastolic Blood Pressure 63.00 mm[Hg] [...] 00:15:59 EST 2024 Heart Rate 77.00 /min [id number]|2024-08-01 11:37:24|2024-08-01 11:37:24|PCOTNOTE||||"Attempted OT reevaluation due to surgery; pt. unable to put on TLSO brace due to drain location. Will attempt again when drain is removed."
--- OUTSIDE RECORDS SUMMARY | 2024-07-21 17:15 | XMS_ITS ---
Author Name May Carrillo Address [address] [place] [address] Phone [phone] [facility] [email or web address] [facility] Address [address] [place] [address] Phone [phone] Care Team Providers Care Surveyor Instrument Assistant Name Role Phone May Carrillo Unavailable AaliyahDiana fagan Unavailable Functional Status No Results Mental Status No Results Allergies and Intolerances Name Onset Date Reaction Severity hydrocodone (Allergy) SatJan 10 19:57:00 EDT 20 23 levofloxacin (Allergy) SatJan 10 19:57:00 EDT 2 023 alendronate sodium (Allergy) SatJan 10 19:56:00 EDT 2022 Encounters Program Name Primary Diagnosis Admission Date/Time Dis charge Date/Time Assisted Care Facility [facility] SatMay 11 09:20:00 EST [...] Indication: pain SatMay 28 13:00:00 EST 2024 [facility] May 30 01:04:00 EST 2024 [...] 2022 * End Date: * 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 (12)* Code: * Start Date: SatMay 19 00:00:00 EST 2024 * End Date: * Text: [id number] Maude receiving mechanically altered diet. (12) * [...] Concerns * Problem Atherosclerotic heart disease of [place] coronary artery without angina pectoris* Code: * [...] :34 EDT 2024 Body weight 171.20 [lb_av] [facility] May 13 16:10 :36 EDT 2024 Systolic Blood Pressure 118.00 mm[Hg] Rosa Mmay 13 09:48:55 EDT 2024 Diastolic Blood Pressure 72.00 mm[Hg] Rosa Mmay 13 09:48:55 EDT 2024 Heart Rate 114.00 /min [facility] May 13 09:48 :55 EDT 2024 Body temperature 97.90 [degF] [facility] May 13 09:4 8:55 EDT 2024 Respiratory rate 16.00 /min [facility] May 13 09:4 8:55 EDT 2024 Pulse Oximetry 94.00 % [facility] May 13 09:48 :55 EDT 2024 Systolic Blood Pressure 118.00 mm[Hg] Rosa Mmay 13 09:09:32 EDT 2024 Diastolic Blood Pressure 72.00 mm[Hg] Rosa Mmay 13 09:09:32 EDT 2024 Heart Rate 114.00 /min [facility] May 13 09:09 :32 EDT 2024 Systolic Blood Pressure 150.00 mm[Hg] Rosa Mmay 13 00:15:26 EDT 2024 Diastolic Blood Pressure 73.00 mm[Hg] Rosa Mmay 13 00:15:26 EDT 2024 Heart Rate 84.00 /min Rosa M May 13 00:15 :26 EDT 2024 Body temperature 98.10 [degF] [facility] May 13 00:1 5:26 EDT 2024 Respiratory [...] 8:16 EST 2024 Pulse Oximetry 95.00 % [place] May 31 03:48 :16 EST 2024 Systolic [...] EST 2024 Systolic Blood Pressure 146.00 mm[Hg] Satb 00:19:27 EST 2024 Diastolic Blood Pressure 63.00 mm[Hg] Satb :19:27 EST 2024 Heart Rate 73.00 /min Satb 00:19 :27 EST 2024 Body temperature 97.80 [degF] SatMay 26 00:1 9:27 EST 2024 Respiratory rate 18.00 /min Satb 00:1 9:27 EST 2024 Pulse Oximetry [...] 5:58 EST 2024 Respiratory rate 20.00 /min Satb 08:3 5:58 EST 2024 Pulse Oximetry 95.00 % Satb 08:35 :58 EST 2024 Systolic Blood Pressure 162.00 mm[Hg] Satb 00:15:59 EST 2024 Diastolic Blood Pressure 75.00 mm[Hg] Satb 00:15:59 EST 2024 Heart Rate 77.00 /min [id number]|2024-08-03 11:10:55|2024-08-03 11:10:55|PCNFU||||"Nutrition Follow-Up Complete: Severe protein calorie malnutrition related chronic taste changes, poor appetite, nausea as evidenced by intakes <75% needs >1 month; weight loss -15%/3 months; moderate fat loss, severe muscle wasting Goal:Improve PO intake >50% meals and supplements Pt meeting goal, continue with same goal Pt current nutrition is Low fat, Ensure Enlive TID. Nutrition recommendation: continue with current plan of care Last recorded weight is 67.4 kg. Bowel Motility: +BM 5/5 Labs Reviewed: Hgb:8.0, HCT:28.5, Alb:2.5, Cr:0.42 Meds Noted: protonix, zofran, B12 Skin: WNL Additional Notes: Pt continues on a low fat diet, reports fair appetite but eating some each meal, eats only two meals at home. Drinking Ensure each tray as well. Tolerating well. Monitoring intakes, weights, labs, supplement tolerance, plan of care Follow up in 5 days"
--- OUTSIDE RECORDS SUMMARY | 2024-07-21 17:15 | XMS_ITS | Continuity of Care Document ---
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 [address] [facility], [place], [address], . [facility], [address], [place], [place], [address] , tel: [phone] [facility] PERIPHERAL VERTIGO NOSDIZZINESS AND GIDDINESS 3 Conversion Doctor. [address] [facility], [place], [address], [place]. [facility], [address], [place], [place], [address] , tel: [phone] [facility] DIFFUS CYSTIC MASTOPATHYCHRONIC BRONCHITIS NOS 3 Matt Bonilla. [address] [facility], [address], [place], [place], [address]. tel: [phone] [facility], [address], [place], [place], [address] , tel: [phone] [facility] COUGHMIXED HYPERLIPIDEMIA 3 Matt Bonilla. [address] [facility], [address], [place], [address]. tel: [phone] [facility], [address], [place], [place], [address] , tel: [phone] [facility] CHRONIC SINUSITIS NOS 3 Matt Bonilla. [address] [facility], [address], [place], [address]. tel: [phone] [facility], [address], [place], [place], [address] , [place] tel: [phone] [facility] JOINT PAIN-UNSPEC 2 Matt Bonilla. [address] [facility], [address], [place], [place], [address]. tel:[phone] [facility], [address], [place], [place], [address] , [place] tel: [phone] [facility] MASTODYNIA Apr-2 9-200 2 Matt Bonilla. [address] [facility], [address], [place], [place], [address]. tel: [phone] [facility], [address], [place], [place], [address] , [place] tel: [phone] [facility] OSTEOPOROSIS NOS Mar- 1-200 2 Matt Irene. [address] [facility], [address], [place], [place], [address]. tel: [phone] [facility], [address], [place], [place], [address] , [place] tel: [phone] [facility] ESOPHAGEAL REFLUX Sep- 0-200 1 Matt Bonilla. [address] [facility], [address], [place], [place], [address]. tel: [phone] [facility], [address], [place], [place], [address] , [place] tel: [phone] [facility] MYALGIA AND MYOSITIS NOSSCREEN MAL NEOP-CERVIX Sep- 7-200 1 Matt Bonilla. [address] [facility], [address], [place], [place], [address]. tel: [phone] [facility], [address], [place], [place], [address] , [place] tel: [phone] [facility] NONSPECIF SKIN ERUPT NEC July- 0-200 1 Matt Bonilla. [address] [facility], [address], [place], [place], [address]. tel: [phone] [facility], [address], [place], [place], [address] , [place] tel:[phone] [facility] ABN PAP SMEAR-OTH SITE Jose-2 2-200 0 Matt Bonilla. [address] [facility], [address], [place], [place], [address]. tel:[phone] [facility], [address], [place], [place], [address] , tel: [phone] [facility] BACKACHE NOSMENOPAUSAL DISORDER NOS 0-200 0 Matt Bonilla. [address] [facility], [address], [place], [place], [address]. tel:[phone] [facility], [address], [place], [place], [address] , tel: [phone] [facility] ABNORMAL WEIGHT GAINROUTINE MEDICAL EXAMALLERGY, UNSPECIFIED 3-200 0 Matt Bonilla. [address] [facility], [address], [place], [place], [address]. tel:[phone] Family History Family Member Type Diagnosis Age [...]
--- OUTSIDE RECORDS SUMMARY | 2024-07-21 17:15 | XMS_ITS | Continuity of Care Document ---
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 [address] [facility], [address], [place], [place], [address] , [place]. tel:[phone] Consulting Provider: Deysi Scherer, [address] [place] [address], [place], [address]. tel:[phone] Family History Family Member Type Diagnosis Age [...]
--- NOTE | 2024-07-21 21:08 | PM.IMCN ---
Assessment and Plan Assessment and plan (1) Essential hypertension: Code(s): I10 - Essential (primary) hypertension Status: Acute (2) Coronary artery disease: Code(s): I25.10 - Atherosclerotic heart disease of [place] coronary artery without angina pectoris Status: Acute (3) Atrial fibrillation: Qualifiers: Atrial fibrillation type: unspecified Qualified Code(s): I48.91 - Unspecified atrial fibrillation Code(s): I48.91 - Unspecified atrial fibrillation Status: Acute (4) Prediabetes: Code(s): R73.03 - Prediabetes Status: Acute (5) Hypothyroidism: Code(s): E03.9 - Hypothyroidism, unspecified Status: Acute (6) Gastroesophageal reflux disease: Code(s): K21.9 - Gastro-esophageal reflux disease without esophagitis Status: Acute (7) T12 compression fracture: Code(s): S22.080A - Wedge compression fracture of T11-T12 vertebra, initial encounter for closed fracture Status: Acute (8) Chronic cholecystitis with calculus: Code(s): K80.10 - Calculus of gallbladder with chronic cholecystitis without obstruction Status: Acute Plan This is a pleasant 84-year-old female with a past medical history CAD, arthritis, prediabetes, paroxysmal atrial fibrillation, GERD, hypothyroidism, hyperlipidemia, vitamin B12 and vitamin D deficiency. Surgical history includes history of appendectomy, hysterectomy, and in 05/2024 she was hospitalized for acute cholecystitis and treated with IV antibiotics and percutaneous cholecystostomy tube placement. She was deemed a poor surgical candidate. She was readmitted in 05/2024 with a dislodged cholecystostomy tube and evidence of acute cholecystitis. She was again treated with IV antibiotics and her cholecystostomy tube was replaced. Since then she has been at home and doing relatively well. On 07/20/2024 the daughter noted purulent drainage from the 2 and so she followed up with Dr. Chester today on the day of admission 07/21/2024 in the office. Then, admitted to [facility] once again. Patient has had poor appetite. 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 Denies any abdominal pain or other complaints but voices her frustration with the tube. Of note, the patient had a kyphoplasty planned this week and her Eliquis has been held on Saturday due to burst fracture of T12/T1. She has also lost about 26 lb in the recent months. Hospitalist team has been consulted to help manage multiple medical comorbidities in the setting of anticipated procedure and infection. ----- Pending CT scan abdomen pelvis with surgery. Replacement of her tube may be necessary. Continue Zosyn. Considering weight loss, will have dietitian evaluate and give recommendations. Postop, consult PT OT if okay from spine surgery. Blood pressure currently acceptable. 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 Beta-blockers recommended to continue perioperatively however will decrease her dose from metoprolol 100 mg p.o. q.day to metoprolol tartrate 25 mg p.o. b.i.d. for now. Telemetry ordered, she is high risk for arrhythmias. Continue to trend daily electrolytes. As for Eliquis, continue to hold although consider restarting or even bridging if approaching the 4 day blanca without anticoagulation. Agree the kyphoplasty should be put on hold considering the purulent drainage. ----- Full code. SCDs. Pre diabetes, Accu-Cheks a.c. HS. Heart healthy diet. HPI Date of Consult Consult date: 07/21/24 Requesting Physician: Caio Chester MD Primary Care Provider: UNKNOWN,DOCTOR Consult Narrative Reason for consult: Purulent drainage Narrative: This is a pleasant 84-year-old female with a past medical history CAD, arthritis, prediabetes, paroxysmal atrial fibrillation, GERD, hypothyroidism, hyperlipidemia, vitamin B12 and vitamin D deficiency. Surgical history includes history of appendectomy, hysterectomy, and in 05/2024 she was hospitalized for acute cholecystitis and treated with IV antibiotics and percutaneous cholecystostomy tube placement. She was deemed a poor surgical candidate. She was readmitted in 05/2024 with a dislodged cholecystostomy tube and evidence of acute cholecystitis. She was again treated with IV antibiotics and her cholecystostomy tube was replaced. Since then she has been at home and doing relatively well. On 07/20/2024 the daughter noted purulent drainage from the 2 and so she followed up with Dr. Chester today on the day of admission 07/21/2024 in the office. Then, admitted to [facility] once again. Patient has had poor appetite. 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 Denies any abdominal pain or other complaints but voices her frustration with the tube. Of note, the patient had a kyphoplasty planned this week and her Eliquis has been held on Saturday due to burst fracture of T12/T1. She has also lost about 26 lb in the recent months. Hospitalist team has been consulted to help manage multiple medical comorbidities in the setting of anticipated procedure and infection. 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 Patient of Dr. Bereket Olson. Arthritis Prediabetes Essential hypertension Gastroesophageal reflux disease Hypothyroidism Mixed hyperlipidemia Seasonal allergic rhinitis Vitamin B12 deficiency Vitamin D deficiency Surgical History Surgical History History of cardiac catheterization Results as above. History of colonoscopy with polypectomy History of appendectomy History of cataract extraction History of hysterectomy Family History Family History Father Lung cancer Sibling Breast cancer Social History Social History Social History: Surrogate medical decision maker: Jodi Lewis, daughter. Code status: Full code. Smoking status: Never smoker Second hand tobacco smoke exposure: No Alcohol intake: never Substance use: never Substance use type: does not use Do You Feel Safe in your Home?: Yes Lack of Transportation: No Lack of Food: Never True Current Housing: I Have Housing Concerned About Future Housing: No Difficulty Paying Gas/Electric Bills: No Difficulty Paying for Meds: No Currently Unemployed: No Education: High School Diploma/GED Difficulty w/ Childcare or Family Care: No Living arrangements: with family Additional living arrangements comments: The patient lives in [place] with her daughter Jodi. 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 Spiritual care concerns: No Agree to blood products: Yes Meds Home Medications and Allergies Home Medications Medication Instructions Recorded Confirmed Type cyanocobalamin (vitamin B-12) 2,500 mcg PO QAM #90 tabs 01/10/23 07/21/24 Rx 2,500 mcg tablet levothyroxine 25 mcg tablet 25 mcg PO DAILY #90 tabs 03/20/23 07/21/24 Rx omeprazole 20 mg capsule,delayed 40 mg (2 x 20 mg) PO DAILY #180 08/28/23 07/21/24 Rx release caps ondansetron HCl 4 mg tablet See Rx Instructions .Route 12/03/23 07/21/24 Rx .COMPLEX #40 ea egg crate mattress for chair #1 ea 04/27/24 07/21/24 Rx nitroglycerin 0.4 mg sublingual 0.4 mg sublingual Q5M PRN chest 05/02/24 07/21/24 History tablet pain acetaminophen 500 mg capsule 1,000 mg PO TID PRN pain 06/13/24 07/21/24 History amitriptyline 10 mg tablet 20 mg PO .HS 06/13/24 07/21/24 History furosemide 40 mg tablet (Lasix) 40 mg PO BID 30 days #60 tabs 06/20/24 07/21/24 Rx metoprolol succinate 100 mg 100 mg PO DAILY 30 days #30 tabs 06/20/24 07/21/24 Rx tablet,extended release 24 hr (Toprol XL) apixaban 5 mg tablet (Eliquis) 5 mg PO Q12HR #60 tabs 06/22/24 07/21/24 Rx potassium chloride 20 mEq 40 meq (2 x 20 mEq) PO DAILY #30 06/22/24 07/21/24 Rx tablet,extended release(part/cryst) tabs tamsulosin 0.4 mg capsule 0.4 mg PO DAILY urinary retention 06/22/24 07/21/24 Rx #30 caps atorvastatin 40 mg tablet 40 mg PO DAILY #90 tabs 06/29/24 07/21/24 Rx chair lift #1 ea 06/29/24 07/21/24 Rx gabapentin 100 mg capsule 200 mg PO BID 07/21/24 07/21/24 History Allergies Allergy/AdvReac Type Severity Reaction Status Date / Time alendronate sodium Allergy Unknown Pt does Verified 07/21/24 11:33 remember levofloxacin Allergy Unknown Pt does Verified 07/21/24 11:33 not remember hydrocodone AdvReac Mild IF SHE Verified 07/21/24 11:33 TAKES 250 MG SHE IS OKAY, 500 MG SHE HAS NAUSEA AND V Vital Signs Vital Signs - 24 hr 07/21/24 17:29 Oxygen Delivery Room Air Exam Const: General: comfortable and no acute distress Other: A&O x3 HENMT: Mouth: Yes moist mucous membranes Eyes: Pupils: Equal, round and reactive pupils present Neck: Neck: supple Resp: Effort & Inspection: normal respiratory effort Auscultation: clear to auscultation bilaterally Cardio: Rate: regular rate Rhythm: regular rhythm GI: Inspection: non-distended GI Palp: Yes Soft to palpation and No Tenderness to palpation present (GI) Auscultation: normal bowel sounds Neuro: Motor exam (neuro): 5/5 motor strength present throughout Extrem: General: no edema Results Labs 07/21/24 15:10 07/21/24 15:10 Labs: Short CBC 07/21/24 Range/Units 15:10 WBC 9.7 (4.5-10.0) K/mm3 Hgb 10.3 L (12.0-15.0) g/dL Hct 33.8 L (37.0-47.0) % Plt Count 276 (150-375) k/mm3 BMP 07/21/24 15:10 Sodium 135 L Potassium 4.5 Chloride 97 L Carbon Dioxide 30 BUN 18 H Creatinine 0.73 Glucose 120 H Calcium 8.5 Liver Function 07/21/24 Range/Units 15:10 Total Bilirubin 0.6 (0.2-1.3) mg/dL AST 57 H (14-36) U/L ALT 34 (6-35) U/L Alkaline Phosphatase 102 (38-126) U/L Albumin 3.3 L (3.5-5.1) g/dL
[2024-07-21] MEDS: ATORVASTATIN 40 MG TABLET PO (21:56)
[2024-07-21] MEDS: METOPROLOL TARTRATE 25 MG TABLET PO (21:56)
[2024-07-21] MEDS: AMITRIPTYLINE HCL 10 MG TABLET 20 MG PO (21:56)
[2024-07-21 21:58] VITALS: BP 118/59; PULSE 84; RESP 18; TEMP 36.6; O2SAT 95
[2024-07-22] VITALS (11 sets, daily range): BP systolic 113–122; BP diastolic 47–59; PULSE 89–105; RESP 16; TEMP 36.1–38.2; O2SAT 91–93; BMI 26.3
[2024-07-22] MEDS: MORPHINE SULFATE (*CRX) 2 MG/ML INJ IV PUSH (05:33)
[2024-07-22] MEDS: LEVOTHYROXINE SODIUM 25 MCG TABLET PO (05:34)
[2024-07-22] MEDS: PIPERACILLN/TAZ 3.375GM/NS50ML 3.375 GM/50 ML BAG IVPB ×3 (05:34→17:46)
[2024-07-22 06:32] LABS: Basophils Percent Auto 0.3 % (0.2-1.2); Eosinophils Absolute Auto 0.2 K/mm3 (0-0.3); Eosinophils Percent Auto 1.8 % (0-4.4); Hematocrit 34.1 % (37.0-47.0); Hemoglobin 10.5 g/dL (12.0-15.0); Immature Granulocyte Absolute 0.03 K/mm3 (0.00-0.031); Immature Granulocyte Percent A 0.3 % (0-0.5); Lymphocytes Percent Auto 29.8 % (18.3-44.2); Mean Corpuscular HGB Conc 30.8 g/dl (32-36); Mean Corpuscular Hemoglobin 28.5 pg (26-34); Mean Corpuscular Volume 92.4 fl (80-100); Mean Platelet Volume 10.2 fl (7.4-10.4); Monocytes Absolute Auto 0.7 K/mm3 (0.1-0.6); Monocytes Percent Auto 6.9 % (2.6-8.5); Neutrophils Absolute Auto 5.7 K/mm3 (1.3-6.7); Neutrophils Percent Auto 60.9 % (45.5-73.1); Platelet Count Result 317 k/mm3 (150-375); Red Blood Count 3.69 M/mm3 (4.2-5.4); Red Cell Distribution Width 14.9 % (11.5-14.5); White Blood Count 9.4 K/mm3 (4.5-10.0)
[2024-07-22 06:44] LABS: Alanine Aminotransferase 34 U/L (6-35); Albumin Level 3.3 g/dL (3.5-5.1); Alkaline Phosphatase 97 U/L (38-126); Anion Gap 12 mmol/L (4-12); Aspartate Amino Transferase 53 U/L (14-36); Bilirubin,Total 0.6 mg/dL (0.2-1.3); Blood Urea Nitrogen 17 mg/dL (7-17); Calcium 8.7 mg/dL (8.4-10.2); Carbon Dioxide 27 mmol/L (22-30); Chloride 98 mmol/L (98-107); Estimated CRCL calculation 39 ml/min; Estimated Glomerular Filt Rate > 60; Glucose 127 mg/dL (65-110); Magnesium 0.9 mg/dL (1.6-2.3); Potassium 4.1 mmol/L (3.4-5.0); Sodium 137 mmol/L (137-145)
[2024-07-22 08:17] LABS: Glucose Point of Care 119 mg/dl (65-105)
[2024-07-22] MEDS: MAGNESIUM SULF 4 GM/WATER100ML 4 GM/100 ML BAG IVPB (09:26)
[2024-07-22] MEDS: CYANOCOBALAMIN 1,000 MCG TABLET 2000 MCG PO (09:26)
[2024-07-22] MEDS: TAMSULOSIN HCL 0.4 MG CAPSULE PO (09:27)
[2024-07-22] MEDS: METOPROLOL TARTRATE 25 MG TABLET PO (09:27)
[2024-07-22] MEDS: GABAPENTIN 100 MG CAPSULE 200 MG PO ×2 (09:27→17:48)
[2024-07-22] MEDS: PANTOPRAZOLE 40 MG TABLET PO (09:27)
[2024-07-22 11:48] LABS: Glucose Point of Care 112 mg/dl (65-105)
--- NOTE | 2024-07-22 11:51 | P.PNIM_ITS ---
Progress Note: A&P Assessment and Plan (1) Essential hypertension: Code(s): I10 - Essential (primary) hypertension Status: Acute Assessment and Plan: * Blood pressure 113/47. * Metoprolol Succinate 50 mg PO QAM. (2) Coronary artery disease: Code(s): I25.10 - Atherosclerotic heart disease of [place] coronary artery without angina pectoris Status: Acute Assessment and Plan: * Atorvastatin 40 mg PO QHS. (3) Atrial fibrillation: Qualifiers: Atrial fibrillation type: unspecified Qualified Code(s): I48.91 - Unspecified atrial fibrillation Code(s): I48.91 - Unspecified atrial fibrillation Status: Acute Assessment and Plan: * Currently SR 86. * Metoprolol Succinate 50 mg PO daily. * Eliquis on hold for possible procedure. * Telemetry. (4) Prediabetes: Code(s): R73.03 - Prediabetes Status: Acute Assessment and Plan: * (5) Hypothyroidism: Code(s): E03.9 - Hypothyroidism, unspecified Status: Acute Assessment and Plan: * Levothyroxine 25 mcg PO daily. (6) Gastroesophageal reflux disease: Code(s): K21.9 - Gastro-esophageal reflux disease without esophagitis Status: Acute Assessment and Plan: * Pantoprazole 40 mg PO QAM. (7) T12 compression fracture: Code(s): S22.080A - Wedge compression fracture of T11-T12 vertebra, initial encounter for closed fracture Status: Acute Assessment and Plan: * Patient is followed by pain management and to have kyphoplasty, patient was supposed to have this week but ended up hospitalized. * Back brace at home but patient is unable to wear at present due to gallbladder drain per daughter. (8) Chronic cholecystitis with calculus: Code(s): K80.10 - Calculus of gallbladder with chronic cholecystitis without obstruction Status: Acute Assessment and Plan: * Drain in place with scant green drainage on dressing. * Surgery following. (9) Hypomagnesemia: Code(s): E83.42 - Hypomagnesemia Status: Acute Assessment and Plan: * Magnesium 0.9. Patient given Magnesium sulfate 4 gram IVPB x1. Magnesium improved to 2.1. * Trend level. Plan This is a pleasant 84-year-old female with a past medical history CAD, arthritis, prediabetes, paroxysmal atrial fibrillation, GERD, hypothyroidism, hyperlipidemia, vitamin B12 and vitamin D deficiency. Surgical history includes history of appendectomy, hysterectomy, and in 05/2024 she was hospitalized for acute cholecystitis and treated with IV antibiotics and percutaneous cholecystostomy tube placement. She was deemed a poor surgical candidate. She was readmitted in 05/2024 with a dislodged cholecystostomy tube and evidence of acute cholecystitis. She was again treated with IV antibiotics and her cholecystostomy tube was replaced. Since then she has been at home and doing relatively well. On 07/20/2024 the daughter noted purulent drainage from the 2 and so she followed up with Dr. Chester today on the day of admission 07/21/2024 in the office. Then, admitted to [facility] once again. Patient has had poor appetite. She had 1 episode of vomiting 3 days [employer]. Denies any abdominal pain or other complaints but voices her frustration with the tube. Of note, the patient had a kyphoplasty planned this week and her Eliquis has been held on Saturday due to burst fracture of T12/T1. She has also lost about 26 lb in the recent months. Hospitalist team has been consulted to help manage multiple medical comorbidities in the setting of anticipated procedure and infection. ----- Pending CT scan abdomen pelvis with surgery. Replacement of her tube may be necessary. Continue Zosyn. Considering weight loss, will have dietitian evaluate and give recommendations. Postop, consult PT OT if okay from spine surgery. Blood pressure currently acceptable. Will hold her [employer] Lasix and potassium. Beta-blockers recommended to continue perioperatively however will decrease her dose from metoprolol 100 mg p.o. q.day to metoprolol tartrate 25 mg p.o. b.i.d. for now. Telemetry ordered, she is high risk for arrhythmias. Continue to trend daily electrolytes. As for Eliquis, continue to hold although consider restarting or even bridging if approaching the 4 day blanca without anticoagulation. Agree the kyphoplasty should be put on hold considering the purulent drainage. ----- Full code. SCDs. Pre diabetes, Accu-Cheks a.c. HS. Heart healthy diet. Subjective Date/time seen: 07/22/24 11:51 Interval history: Patient sitting up in bed with daughter at bedside. Patient reports pain in back is a 3 , frequent, and aching. Patient denies chest pain, palpitations, shortness of breath, dizziness, or headache. Review of Systems Review of Systems: All systems reviewed & are unremarkable except as noted in HPI and below Exam Const: General: no acute distress and uncomfortable Resp: Effort & Inspection: normal respiratory effort Auscultation: clear to auscultation bilaterally Cardio: Rate: regular rate Rhythm: regular rhythm Other: Telemetry-SR 86 GI: GI Palp: Yes Soft to palpation Auscultation: normal bowel sounds Neuro: Speech: normal speech Extrem: General: no pedal edema Psych: Mental Status: mental status grossly normal Affect: normal affect Objective Data Vital Signs Vital Signs: Vital Signs - 24 hr 07/21/24 17:29 07/21/24 20:00 07/21/24 21:58 Temperature 97.8 F Pulse Rate 84 Respiratory Rate 18 Blood Pressure 118/59 L Pulse Oximetry 95 Oxygen Delivery Room Air Room Air 07/22/24 04:00 07/22/24 06:00 07/22/24 08:00 Temperature 98.1 F Pulse Rate 98 98 62 Respiratory Rate 16 Blood Pressure 114/55 L Pulse Oximetry 93 Oxygen Delivery 07/22/24 09:27 Temperature Pulse Rate 100 Respiratory Rate Blood Pressure Pulse Oximetry Oxygen Delivery Intake/Output Intake/Output: Intake & Output 07/19/24 07/20/24 07/21/24 07/22/24 23:59 23:59 23:59 23:59 Intake Total 840 490 Output Total 15 Balance 840 475 Meds/Results Medications: Active Medications Generic Name Dose Route Start Last Admin Trade Name Freq PRN Reason Stop Dose Admin Acetaminophen 1,000 mg 07/22/24 08:52 Acetaminophen 500 Mg Tablet PO Q6H PRN Mild Pain (1-3) or Fever Amitriptyline HCl 20 mg 07/21/24 21:15 07/21/24 21:56 Amitriptyline Hcl 10 Mg Tablet PO 20 mg QHS MELISSA Administration Atorvastatin Calcium 40 mg 07/21/24 21:15 07/21/24 21:56 Atorvastatin 40 Mg Tablet PO 40 mg QHS MELISSA Administration Cyanocobalamin 500 mcg 07/22/24 09:00 Cyanocobalamin 500 Mc[facility] [place] 2,000 mcg 07/22/24 09:00 07/22/24 09:26 Cyanocobalamin 1,000 Mcg Tablet PO 2,000 mcg QAM MELISSA Administration Dextrose 12.5 gm 07/21/24 21:04 Dextrose 50% 25 Gm/50 Ml Syringe IV PUSH PRN PRN Hypoglycemia Protocol Gabapentin 200 mg 07/22/24 09:00 07/22/24 09:27 Gabapentin 100 Mg Capsule PO 200 mg BID MELISSA Administration Glucose 15 gm 07/21/24 21:04 Glucose Oral Gel 15 Gm Of Glucse In 37.5 Gm Tube PO PRN PRN Hypoglycemia Protocol Piperacillin/Tazobactam/Dextrose 3.375 gm in 50 mls @ 100 mls/hr 07/21/24 23:00 07/22/24 06:04 Zosyn 3.375 Gm/Ns 50 Ml IVPB Infused Q6HR MELISSA Infusion Dextrose 1,000 mls @ 100 mls/hr 07/21/24 21:04 Dextrose 5% 1,000 Ml IVPB PRN PRN Hypoglycemia Protocol Magnesium Sulfate 4 gm in 100 mls @ 25 mls/hr 07/22/24 09:03 07/22/24 09:26 Magnesium Sulf 4 Gm/[id number] IVPB 07/22/24 13:02 25 mls/hr ONCE ONE Administration Levothyroxine Sodium 25 mcg 07/22/24 06:30 07/22/24 05:34 Levothyroxine Sodium 25 Mcg Tablet PO 25 mcg DAILY@0630 MELISSA Administration Metoprolol Tartrate 25 mg 07/21/24 21:00 07/22/24 09:27 Metoprolol Tartrate 25 Mg Tablet PO 25 mg Q12HR MELISSA Administration Morphine Sulfate 2 mg 07/22/24 05:24 07/22/24 05:33 Morphine Sulfate (*Crx) 2 Mg/Ml Inj IV PUSH 2 mg Q2H PRN Administration Pain Rated 7-10 Ondansetron HCl 4 mg 07/22/24 08:52 Ondansetron Inj 4 Mg/2 Ml Vial IV PUSH Q6H PRN Nausea And Vomiting Pantoprazole Sodium 40 mg 07/22/24 09:00 07/22/24 09:27 Pantoprazole 40 Mg Tablet PO 40 mg QAM MELISSA Administration Tamsulosin HCl 0.4 mg 07/22/24 09:00 07/22/24 09:27 Tamsulosin Hcl 0.4 Mg Capsule PO 0.4 mg DAILY MELISSA Administration Radiology Results: ITS Impressions Abdomen/Pelvis CT 07/22/24 08:52 Impression: Percutaneous cholecystostomy tube in place with distended irregular gallbladder with marked irregular wall thickening and pericholecystic infarct or change, compatible with acute cholecystitis. Fluid-filled tract communicating with the gallbladder lumen at the superior aspect, which represents a tract related to prior cholecystostomy tube placement, with extension into the anterior abdominal wall. Additional suspected area of contained perforation at the inferior aspect of the gallbladder, which is new from prior exam. Acute L1 compression fracture, new from prior exam. Worsening T12 compression fracture as compared to prior exam with progressive loss of height. Labs Labs: Laboratory Results - last 24 hr 07/21/24 07/22/24 07/22/24 15:10 05:45 08:13 WBC 9.7 9.4 RBC 3.64 L 3.69 L Hgb 10.3 L 10.5 L Hct 33.8 L 34.1 L MCV 92.9 92.4 MCH 28.3 28.5 MCHC 30.5 L 30.8 L RDW 14.8 H 14.9 H Plt Count 276 317 MPV 9.6 10.2 Immature Gran % (Auto) 0.5 0.3 Neut % (Auto) 71.2 60.9 Lymph % (Auto) 19.0 29.8 [place] % (Auto) 8.2 6.9 Eos % (Auto) 0.9 1.8 Baso % (Auto) 0.2 0.3 Lymph # (Auto) 1.84 2.80 [place] # (Auto) 0.8 H 0.7 H Eos # (Auto) 0.1 0.2 Baso # (Auto) 0.0 0.0 Abs Immat Gran (auto) 0.05 H 0.03 Absolute Neuts (auto) 6.9 H 5.7 Absolute Nucleated RBC 0.000 0.000 Nucleated RBC % 0.0 0.0 PT 16.0 H INR 1.2 Sodium 135 L 137 Potassium 4.5 4.1 Chloride 97 L 98 Carbon Dioxide 30 27 Anion Gap 8 12 BUN 18 H 17 Creatinine 0.73 0.75 Estim Creat Clear Calc Not Reportable 39 Estimated GFR > 60 > 60 Glucose 120 H 127 H POC Capillary Glucose 119 H Calcium 8.5 8.7 Magnesium 0.9 L Total Bilirubin 0.6 0.6 AST 57 H 53 H ALT 34 34 Alkaline Phosphatase 102 97 Total Protein 7.0 7.0 Albumin 3.3 L 3.3 L 07/22/24 11:40 WBC RBC Hgb Hct MCV MCH MCHC RDW Plt Count MPV Immature Gran % (Auto) Neut % (Auto) Lymph % (Auto) [place] % (Auto) Eos % (Auto) Baso % (Auto) Lymph # (Auto) [place] # (Auto) Eos # (Auto) Baso # (Auto) Abs Immat Gran (auto) Absolute Neuts (auto) Absolute Nucleated RBC Nucleated RBC % PT INR Sodium Potassium Chloride Carbon Dioxide Anion Gap BUN Creatinine Estim Creat Clear Calc Estimated GFR Glucose POC Capillary Glucose 112 H Calcium Magnesium Total Bilirubin AST ALT Alkaline Phosphatase Total Protein Albumin Quality VTE Prophylaxis VTE prophylaxis: mechanical ordered
[2024-07-22] MEDS: CYANOCOBALAMIN 500 MCG TABLET PO (12:39)
--- NOTE | 2024-07-22 14:48 | PC.NURSE ---
Pt requested DNR status and pt and dtr agreeable to this as they do not want broken ribs or tube in throat. [employer] came through to discuss care, pt now states full code. Daughter bedside and tried to clarify this AM's convo. Pt states she wants full code. New pt ID bracelet ordered to get rid of purple clasp, board updated, and code status changed.
[2024-07-22 15:11] LABS: Magnesium 2.1 mg/dL (1.6-2.3)
--- NOTE | 2024-07-22 15:18 | P.PNGS_ITS ---
Progress Note: A&P Assessment and Plan (1) Chronic cholecystitis with calculus: Code(s): K80.10 - Calculus of gallbladder with chronic cholecystitis without obstruction Status: Acute Assessment and Plan: * CT scan abdomen pelvis reviewed and still shows findings of acute cholecystitis with fluid-filled track from previous cholecystostomy tube communicating with the gallbladder lumen with extension to the anterior abdominal wall, as well as suspected perforation at the inferior aspect of the gallbladder which is new since her last CT. * Continue IV antibiotics. I wiill make her NPO after midnight and has IR exchange and upsize her cholecystostomy tube tomorrow as it is obviously not draining adequately. Discussed with the daughter and patient again today that ultimately, she may eventually need a laparoscopic cholecystectomy, but will try to upsize the drain and get adequate drainage to see if this improves. (2) Anticoagulant long-term use: Code(s): Z79.01 - jail (current) use of anticoagulants Status: Acute Assessment and Plan: * Continue to hold Eliquis for procedure tomorrow (3) T12 compression fracture: Code(s): S22.080A - Wedge compression fracture of T11-T12 vertebra, initial encounter for closed fracture Status: Acute Assessment and Plan: * Changed her activity to bedrest with bedside commode. Her back pain has limited her activity and she has not been able to ambulate recently due to the pain. Plan I have discussed the patient's case and plan of care with Dr. Chester. Subjective Subjective Date/Time Seen: 07/22/24 15:18 Patient reports: no new complaints and afebrile Interval history: Patient's daughter at the bedside. She states the patient is more lethargic today after receiving IV morphine this morning. This is typically how she response to IV narcotics. She received the morphine for her back pain, which is unchanged. They did attempt a walker into the bathroom which aggravated her back pain. She has now stayed in the bed with a PureWick in place. The patient denies any abdominal pain or nausea. She did have an episode of vomiting earlier today after eating. She reports she tried to eat too quickly after waking up. No other acute issues. Exam Const: General: comfortable and no acute distress Orientation/consciousness: patient oriented x3 GI: Inspection: non-distended GI Palp: Yes Soft to palpation, No Tenderness to palpation present (GI), No Guarding due to palpation present (GI) and No Rebound tenderness present Auscultation: normal bowel sounds Other: RUQ cholecystostomy tube in place with moderate amount of [place]/green purulent drainage coming around the tube. There is also scant amount of purulent drainage within the tube. There is a small scar from previous cholecystostomy tube that is well healed with no erythema. Objective Data Vital Signs Vital Signs: Vital Signs - 24 hr 07/21/24 17:29 07/21/24 20:00 07/21/24 21:58 Temperature 97.8 F Pulse Rate 84 Respiratory Rate 18 Blood Pressure 118/59 L Pulse Oximetry 95 Oxygen Delivery Room Air Room Air 07/22/24 04:00 07/22/24 06:00 07/22/24 08:00 Temperature 98.1 F Pulse Rate 98 98 92 Respiratory Rate 16 Blood Pressure 114/55 L Pulse Oximetry 93 Oxygen Delivery 07/22/24 09:27 07/22/24 14:00 Temperature 97.2 F L Pulse Rate 100 96 Respiratory Rate 16 Blood Pressure 113/47 L Pulse Oximetry 91 Oxygen Delivery Intake/Output Intake/Output: Intake & Output 07/19/24 07/20/24 07/21/24 07/22/24 23:59 23:59 23:59 23:59 Intake Total 840 730 Output Total 15 Balance 840 715 Meds/Results Medications: Active Medications Generic Name Dose Route Start Last Admin Trade Name Freq PRN Reason Stop Dose Admin Acetaminophen 1,000 mg 07/22/24 08:52 Acetaminophen 500 Mg Tablet PO Q6H PRN Mild Pain (1-3) or Fever Amitriptyline HCl 20 mg 07/21/24 21:15 07/21/24 21:56 Amitriptyline Hcl 10 Mg Tablet PO 20 mg QHS MELISSA Administration Atorvastatin Calcium 40 mg 07/21/24 21:15 07/21/24 21:56 Atorvastatin 40 Mg Tablet PO 40 mg QHS MELISSA Administration Cyanocobalamin 500 mcg 07/22/24 09:00 07/22/24 12:39 Cyanocobalamin 500 Mcg Tablet PO 500 mcg QAM MELISSA Administration Cyanocobalamin 2,000 mcg 07/22/24 09:00 07/22/24 09:26 Cyanocobalamin 1,000 Mcg Tablet PO 2,000 mcg QAM MELISSA Administration Dextrose 12.5 gm 07/21/24 21:04 Dextrose 50% 25 Gm/50 Ml Syringe IV PUSH PRN PRN Hypoglycemia Protocol Gabapentin 200 mg 07/22/24 09:00 07/22/24 09:27 Gabapentin 100 Mg Capsule PO 200 mg BID MELISSA Administration Glucose 15 gm 07/21/24 21:04 Glucose Oral Gel 15 Gm Of Glucse In 37.5 Gm Tube PO PRN PRN Hypoglycemia Protocol Piperacillin/Tazobactam/Dextrose 3.375 gm in 50 mls @ 100 mls/hr 07/21/24 23:00 07/22/24 12:27 Zosyn 3.375 Gm/Ns 50 Ml IVPB 100 mls/hr Q6HR MELISSA Administration Dextrose 1,000 mls @ 100 mls/hr 07/21/24 21:04 Dextrose 5% 1,000 Ml IVPB PRN PRN Hypoglycemia Protocol Levothyroxine Sodium 25 mcg 07/22/24 06:30 07/22/24 05:34 Levothyroxine Sodium 25 Mcg Tablet PO 25 mcg DAILY@0630 MELISSA Administration Metoprolol Succinate 50 mg 07/23/24 09:00 Metoprolol Succinate Ext Rel 50 Mg Tabcr PO QAM MELISSA Ondansetron HCl 4 mg 07/22/24 08:52 Ondansetron Inj 4 Mg/2 Ml Vial IV PUSH Q6H PRN Nausea And Vomiting Pantoprazole Sodium 40 mg 07/22/24 09:00 07/22/24 09:27 Pantoprazole 40 Mg Tablet PO 40 mg QAM MELISSA Administration Tamsulosin HCl 0.4 mg 07/22/24 09:00 07/22/24 09:27 Tamsulosin Hcl 0.4 Mg Capsule PO 0.4 mg DAILY MELISSA Administration Radiology Results: ITS Impressions Abdomen/Pelvis CT 07/22/24 08:52 Impression: Percutaneous cholecystostomy tube in place with distended irregular gallbladder with marked irregular wall thickening and pericholecystic infarct or change, compatible with acute cholecystitis. Fluid-filled tract communicating with the gallbladder lumen at the superior aspect, which represents a tract related to prior cholecystostomy tube placement, with extension into the anterior abdominal wall. Additional suspected area of contained perforation at the inferior aspect of the gallbladder, which is new from prior exam. Acute L1 compression fracture, new from prior exam. Worsening T12 compression fracture as compared to prior exam with progressive loss of height. Labs Labs: Laboratory Results - last 24 hr 07/21/24 07/22/24 07/22/24 15:10 05:45 08:13 WBC 9.4 RBC 3.69 L Hgb 10.5 L Hct 34.1 L MCV 92.4 MCH 28.5 MCHC 30.8 L RDW 14.9 H Plt Count 317 MPV 10.2 Immature Gran % (Auto) 0.3 Neut % (Auto) 60.9 Lymph % (Auto) 29.8 [place] % (Auto) 6.9 Eos % (Auto) 1.8 Baso % (Auto) 0.3 Lymph # (Auto) 2.80 [place] # (Auto) 0.7 H Eos # (Auto) 0.2 Baso # (Auto) 0.0 Abs Immat Gran (auto) 0.03 Absolute Neuts (auto) 5.7 Absolute Nucleated RBC 0.000 Nucleated RBC % 0.0 PT 16.0 H INR 1.2 Sodium 135 L 137 Potassium 4.5 4.1 Chloride 97 L 98 Carbon Dioxide 30 27 Anion Gap 8 12 BUN 18 H 17 Creatinine 0.73 0.75 Estim Creat Clear Calc Not Reportable 39 Estimated GFR > 60 > 60 Glucose 120 H 127 H POC Capillary Glucose 119 H Calcium 8.5 8.7 Magnesium 0.9 L Total Bilirubin 0.6 0.6 AST 57 H 53 H ALT 34 34 Alkaline Phosphatase 102 97 Total Protein 7.0 7.0 Albumin 3.3 L 3.3 L 07/22/24 07/22/24 11:40 14:51 WBC RBC Hgb Hct MCV MCH MCHC RDW Plt Count MPV Immature Gran % (Auto) Neut % (Auto) Lymph % (Auto) [place] % (Auto) Eos % (Auto) Baso % (Auto) Lymph # (Auto) [place] # (Auto) Eos # (Auto) Baso # (Auto) Abs Immat Gran (auto) Absolute Neuts (auto) Absolute Nucleated RBC Nucleated RBC % PT INR Sodium Potassium Chloride Carbon Dioxide Anion Gap BUN Creatinine Estim Creat Clear Calc Estimated GFR Glucose POC Capillary Glucose 112 H Calcium Magnesium 2.1 Total Bilirubin AST ALT Alkaline Phosphatase Total Protein Albumin
[2024-07-22] MEDS: ACETAMINOPHEN 500 MG TABLET 1000 MG PO (17:46)
[2024-07-22 19:45] LABS: Hemoglobin A1C 5.2 % (<5.7)
[2024-07-22] MEDS: ATORVASTATIN 40 MG TABLET PO (20:58)
[2024-07-22] MEDS: AMITRIPTYLINE HCL 10 MG TABLET 20 MG PO (20:58)
[2024-07-23] VITALS (9 sets, daily range): BP systolic 100–126; BP diastolic 53–58; PULSE 84–114; RESP 14–16; TEMP 36.2–36.8; O2SAT 93–97
[2024-07-23] MEDS: PIPERACILLN/TAZ 3.375GM/NS50ML 3.375 GM/50 ML BAG IVPB ×4 (00:14→17:56)
[2024-07-23 06:41] LABS: Basophils Percent Auto 0.2 % (0.2-1.2); Eosinophils Absolute Auto 0.1 K/mm3 (0-0.3); Hematocrit 33.8 % (37.0-47.0); Hemoglobin 10.7 g/dL (12.0-15.0); Immature Granulocyte Absolute 0.06 K/mm3 (0.00-0.031); Immature Granulocyte Percent A 0.5 % (0-0.5); Lymphocytes Absolute Auto 1.33 K/mm3 (0.9-3.2); Lymphocytes Percent Auto 11.4 % (18.3-44.2); Mean Corpuscular HGB Conc 31.7 g/dl (32-36); Mean Corpuscular Hemoglobin 29.4 pg (26-34); Mean Corpuscular Volume 92.9 fl (80-100); Mean Platelet Volume 9.9 fl (7.4-10.4); Monocytes Absolute Auto 0.7 K/mm3 (0.1-0.6); Monocytes Percent Auto 6.3 % (2.6-8.5); Neutrophils Absolute Auto 9.4 K/mm3 (1.3-6.7); Neutrophils Percent Auto 80.6 % (45.5-73.1); Platelet Count Result 294 k/mm3 (150-375); Red Blood Count 3.64 M/mm3 (4.2-5.4); Red Cell Distribution Width 14.8 % (11.5-14.5); White Blood Count 11.6 K/mm3 (4.5-10.0)
[2024-07-23 06:54] LABS: Alanine Aminotransferase 34 U/L (6-35); Albumin Level 3.1 g/dL (3.5-5.1); Alkaline Phosphatase 106 U/L (38-126); Anion Gap 8 mmol/L (4-12); Aspartate Amino Transferase 50 U/L (14-36); Bilirubin,Total 0.9 mg/dL (0.2-1.3); Blood Urea Nitrogen 13 mg/dL (7-17); Calcium 8.8 mg/dL (8.4-10.2); Carbon Dioxide 32 mmol/L (22-30); Chloride 98 mmol/L (98-107); Estimated CRCL calculation 47 ml/min; Estimated Glomerular Filt Rate > 60; Glucose 111 mg/dL (65-110); Potassium 3.8 mmol/L (3.4-5.0); Sodium 138 mmol/L (137-145)
[2024-07-23 08:40] LABS: INR 1.2; Prothrombin Time 15.7 Seconds (11.1-14.7)
[2024-07-23] MEDS: METOPROLOL SUCCINATE EXT REL 50 MG TABCR PO (09:04)
--- NOTE | 2024-07-23 11:04 | P.PNGS_ITS ---
Progress Note: A&P Assessment and Plan (1) Chronic cholecystitis with calculus: Code(s): K80.10 - Calculus of gallbladder with chronic cholecystitis without obstruction Status: Acute Assessment and Plan: * WBC count went up slightly today and she had a low-grade fever. Plan is for the patient to go to IR today to exchange/upsize her cholecystostomy tube. Hopefully this will allow for adequate drainage and she will begin to improve. Continue IV antibiotics. We can resume her diet after the procedure. 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 Chester. Subjective Subjective Date/Time Seen: 07/23/24 11:04 Patient reports: fever (Low-grade temp of a 100.8° F last night around 6:00 p.m.) Interval history: Patient doing well today without any acute complaints. No abdominal pain or nausea. She is more alert this morning since stopping the morphine. Exam Const: General: comfortable and no acute distress GI: Inspection: non-distended GI Palp: Yes Soft to palpation, No Tenderness to palpation present (GI), No Guarding due to palpation present (GI) and No Rebound tenderness present Auscultation: normal bowel sounds Other: RUQ cholecystostomy tube in place with moderate amount of [place] purulent drainage coming around the tube. There is also scant amount of purulent drainage within the tube. There is a small scar from previous cholecystostomy tube that is well healed with no erythema. Objective Data Vital Signs Vital Signs: Vital Signs - 24 hr 07/22/24 12:00 07/22/24 14:00 07/22/24 16:00 Temperature 97.2 F L Pulse Rate 89 96 101 H Respiratory Rate 16 Blood Pressure 113/47 L Pulse Oximetry 91 Oxygen Delivery 07/22/24 17:46 07/22/24 18:46 07/22/24 20:00 Temperature 100.8 F H 99.6 F Pulse Rate Respiratory Rate Blood Pressure Pulse Oximetry Oxygen Delivery Room Air 07/22/24 20:00 07/22/24 21:13 07/23/24 00:00 Temperature 96.9 F L Pulse Rate 105 H 98 88 Respiratory Rate 16 Blood Pressure 122/59 L Pulse Oximetry 92 Oxygen Delivery 07/23/24 04:00 07/23/24 05:40 Temperature 97.1 F L Pulse Rate 100 103 H Respiratory Rate 16 Blood Pressure 126/55 L Pulse Oximetry 97 Oxygen Delivery Intake/Output Intake/Output: Intake & Output 07/20/24 07/21/24 07/22/24 07/23/24 23:59 23:59 23:59 23:59 Intake Total 840 950 50 Output Total 440 100 Balance 840 510 -50 Meds/Results Medications: Active Medications Generic Name Dose Route Start Last Admin Trade Name Freq PRN Reason Stop Dose Admin Acetaminophen 1,000 mg 07/22/24 08:52 07/22/24 17:46 Acetaminophen 500 Mg Tablet PO 1,000 mg Q6H PRN Administration Mild Pain (1-3) or Fever Amitriptyline HCl 20 mg 07/21/24 21:15 07/22/24 20:58 Amitriptyline Hcl 10 Mg Tablet PO 20 mg QHS MELISSA Administration Atorvastatin Calcium 40 mg 07/21/24 21:15 07/22/24 20:58 Atorvastatin 40 Mg Tablet PO 40 mg QHS MELISSA Administration Cyanocobalamin 500 mcg 07/22/24 09:00 07/22/24 12:39 Cyanocobalamin 500 Mcg Tablet PO 500 mcg QAM MELISSA Administration Cyanocobalamin 2,000 mcg 07/22/24 09:00 07/22/24 09:26 Cyanocobalamin 1,000 Mcg Tablet PO 2,000 mcg QAM MELISSA Administration Gabapentin 200 mg 07/22/24 09:00 07/22/24 17:48 Gabapentin 100 Mg Capsule PO 200 mg BID MELISSA Administration Piperacillin/Tazobactam/Dextrose 3.375 gm in 50 mls @ 100 mls/hr 07/21/24 23:00 07/23/24 06:31 Zosyn 3.375 Gm/Ns 50 Ml IVPB 100 mls/hr Q6HR MELISSA Administration Levothyroxine Sodium 25 mcg 07/22/24 06:30 07/23/24 06:08 Levothyroxine Sodium 25 Mcg Tablet PO Not Given DAILY@0630 [facility] Metoprolol Succinate 50 mg 07/23/24 09:00 07/23/24 09:04 Metoprolol Succinate Ext Rel 50 Mg Tabcr PO 50 mg QAM MELISSA Administration Ondansetron HCl 4 mg 07/22/24 08:52 Ondansetron Inj 4 Mg/2 Ml Vial IV PUSH Q6H PRN Nausea And Vomiting Pantoprazole Sodium 40 mg 07/22/24 09:00 07/22/24 09:27 Pantoprazole 40 Mg Tablet PO 40 mg QAM MELISSA Administration Tamsulosin HCl 0.4 mg 07/22/24 09:00 07/22/24 09:27 Tamsulosin Hcl 0.4 Mg Capsule PO 0.4 mg DAILY MELISSA Administration Radiology Results: ITS Impressions Abdomen/Pelvis CT 07/22/24 08:52 Impression: Percutaneous cholecystostomy tube in place with distended irregular gallbladder with marked irregular wall thickening and pericholecystic infarct or change, compatible with acute cholecystitis. Fluid-filled tract communicating with the gallbladder lumen at the superior aspect, which represents a tract related to prior cholecystostomy tube placement, with extension into the anterior abdominal wall. Additional suspected area of contained perforation at the inferior aspect of the gallbladder, which is new from prior exam. Acute L1 compression fracture, new from prior exam. Worsening T12 compression fracture as compared to prior exam with progressive loss of height. Labs Labs: Laboratory Results - last 24 hr 07/22/24 07/22/24 07/22/24 05:40 11:40 14:51 WBC RBC Hgb Hct MCV MCH MCHC RDW Plt Count MPV Immature Gran % (Auto) Neut % (Auto) Lymph % (Auto) [place] % (Auto) Eos % (Auto) Baso % (Auto) Lymph # (Auto) [place] # (Auto) Eos # (Auto) Baso # (Auto) Abs Immat Gran (auto) Absolute Neuts (auto) Absolute Nucleated RBC Nucleated RBC % PT INR APTT Sodium Potassium Chloride Carbon Dioxide Anion Gap BUN Creatinine Estim Creat Clear Calc Estimated GFR Glucose POC Capillary Glucose 112 H Hemoglobin A1c 5.2 Calcium Magnesium 2.1 Total Bilirubin AST ALT Alkaline Phosphatase Total Protein Albumin 07/23/24 07/23/24 05:48 07:53 WBC 11.6 H RBC 3.64 L Hgb 10.7 L Hct 33.8 L MCV 92.9 MCH 29.4 MCHC 31.7 L RDW 14.8 H Plt Count 294 MPV 9.9 Immature Gran % (Auto) 0.5 Neut % (Auto) 80.6 H Lymph % (Auto) 11.4 L [place] % (Auto) 6.3 Eos % (Auto) 1.0 Baso % (Auto) 0.2 Lymph # (Auto) 1.33 [place] # (Auto) 0.7 H Eos # (Auto) 0.1 Baso # (Auto) 0.0 Abs Immat Gran (auto) 0.06 H Absolute Neuts (auto) 9.4 H Absolute Nucleated RBC 0.000 Nucleated RBC % 0.0 PT 15.7 H INR 1.2 APTT 53.0 H Sodium 138 Potassium 3.8 Chloride 98 Carbon Dioxide 32 H Anion Gap 8 BUN 13 Creatinine 0.60 L Estim Creat Clear Calc 47 Estimated GFR > 60 Glucose 111 H POC Capillary Glucose Hemoglobin A1c Calcium 8.8 Magnesium 2.0 Total Bilirubin 0.9 AST 50 H ALT 34 Alkaline Phosphatase 106 Total Protein 6.0 L Albumin 3.1 L
--- NOTE | 2024-07-23 11:19 | P.PNIM_ITS ---
Progress Note: A&P Assessment and Plan (1) Essential hypertension: Code(s): I10 - Essential (primary) hypertension Status: Acute Assessment and Plan: * Blood pressure 121/58. * Metoprolol Succinate 100 mg PO QAM. (2) Coronary artery disease: Code(s): I25.10 - Atherosclerotic heart disease of [place] coronary artery without angina pectoris Status: Acute Assessment and Plan: * Atorvastatin 40 mg PO QHS. (3) Atrial fibrillation: Qualifiers: Atrial fibrillation type: unspecified Qualified Code(s): I48.91 - Unspecified atrial fibrillation Code(s): I48.91 - Unspecified atrial fibrillation Status: Acute Assessment and Plan: * Currently ST 108. * Increase to home dose of Metoprolol Succinate 100 mg PO daily. * Start Lovenox 40 mg subq daily. * Telemetry. (4) Hypothyroidism: Code(s): E03.9 - Hypothyroidism, unspecified Status: Acute Assessment and Plan: * Levothyroxine 25 mcg PO daily. (5) Gastroesophageal reflux disease: Code(s): K21.9 - Gastro-esophageal reflux disease without esophagitis Status: Acute Assessment and Plan: * Pantoprazole 40 mg PO QAM. (6) T12 compression fracture: Code(s): S22.080A - Wedge compression fracture of T11-T12 vertebra, initial encounter for closed fracture Status: Acute Assessment and Plan: * Patient is followed by pain management and to have kyphoplasty, patient was supposed to have this week but ended up hospitalized. * Back brace at home but patient is unable to wear at present due to gallbladder drain per daughter. * PT/OT (7) Severe protein-calorie malnutrition: Code(s): E43 - Unspecified severe protein-calorie malnutrition Status: Acute Assessment and Plan: * Protein 6.0. * Severe protein calorie malnutrition related to taste changes, poor appetite, nausea as evidenced by intakes <75% needs >1 month. Weight loss-15%/3 months: moderate fat loss, severe muscle wasting. * Ensure Enlive TID and Nutritional ice cream TID. * Weigh Box Tender following. (8) Chronic cholecystitis with calculus: Code(s): K80.10 - Calculus of gallbladder with chronic cholecystitis without obstruction Status: Acute Assessment and Plan: * Patient had upsizing the cholecystostomy tube today in IR. * Zosyn 3.375 gm IVPB q 6. * Surgery following. (9) Hypomagnesemia: Code(s): E83.42 - Hypomagnesemia Status: Acute Assessment and Plan: * Magnesium 2.0 today, improved. * Trend level. Plan This is a pleasant 84-year-old female with a past medical history CAD, arthritis, prediabetes, paroxysmal atrial fibrillation, GERD, hypothyroidism, hyperlipidemia, vitamin B12 and vitamin D deficiency. Surgical history includes history of appendectomy, hysterectomy, and in 05/2024 she was hospitalized for acute cholecystitis and treated with IV antibiotics and percutaneous cholecystostomy tube placement. She was deemed a poor surgical candidate. She was readmitted in 05/2024 with a dislodged cholecystostomy tube and evidence of acute cholecystitis. She was again treated with IV antibiotics and her cholecystostomy tube was replaced. Since then she has been at home and doing relatively well. On 07/20/2024 the daughter noted purulent drainage from the 2 and so she followed up with Dr. Chester today on the day of admission 07/21/2024 in the office. Then, admitted to [facility] once again. Patient has had poor appetite. 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 Denies any abdominal pain or other complaints but voices her frustration with the tube. Of note, the patient had a kyphoplasty planned this week and her Eliquis has been held on Saturday due to burst fracture of T12/T1. She has also lost about 26 lb in the recent months. Hospitalist team has been consulted to help manage multiple medical comorbidities in the setting of anticipated procedure and infection. ----- Subjective Date/time seen: 07/23/24 11:19 Interval history: Patient had upsizing the cholecystostomy tube today in IR. Daughter at bedside. Patient denies chest pain, palpitations, headache, dizziness, nausea, or vomiting. Review of Systems Review of Systems: All systems reviewed & are unremarkable except as noted in HPI and below Exam Const: General: comfortable and no acute distress Resp: Effort & Inspection: normal respiratory effort Auscultation: clear to auscultation bilaterally Cardio: Rate: tachycardic Other: Telemetry- ST 108. GI: GI Palp: Yes Soft to palpation Auscultation: normal bowel sounds Neuro: Speech: normal speech Extrem: General: no pedal edema Psych: Mental Status: mental status grossly normal Affect: normal affect Objective Data Vital Signs Vital Signs: Vital Signs - 24 hr 07/22/24 12:00 07/22/24 14:00 07/22/24 16:00 Temperature 97.2 F L Pulse Rate 89 96 101 H Respiratory Rate 16 Blood Pressure 113/47 L Pulse Oximetry 91 Oxygen Delivery 07/22/24 17:46 07/22/24 18:46 07/22/24 20:00 Temperature 100.8 F H 99.6 F Pulse Rate Respiratory Rate Blood Pressure Pulse Oximetry Oxygen Delivery Room Air 07/22/24 20:00 07/22/24 21:13 07/23/24 00:00 Temperature 96.9 F L Pulse Rate 105 H 98 88 Respiratory Rate 16 Blood Pressure 122/59 L Pulse Oximetry 92 Oxygen Delivery 07/23/24 04:00 07/23/24 05:40 07/23/24 08:00 Temperature 97.1 F L Pulse Rate 100 103 H 114 H Respiratory Rate 16 Blood Pressure 126/55 L Pulse Oximetry 97 Oxygen Delivery Intake/Output Intake/Output: Intake & Output 07/20/24 07/21/24 07/22/24 07/23/24 23:59 23:59 23:59 23:59 Intake Total 840 950 50 Output Total 440 100 Balance 840 510 -50 Meds/Results Medications: Active Medications Generic Name Dose Route Start Last Admin Trade Name Freq PRN Reason Stop Dose Admin Acetaminophen 1,000 mg 07/22/24 08:52 07/22/24 17:46 Acetaminophen 500 Mg Tablet PO 1,000 mg Q6H PRN Administration Mild Pain (1-3) or Fever Amitriptyline HCl 20 mg 07/21/24 21:15 07/22/24 20:58 Amitriptyline Hcl 10 Mg Tablet PO 20 mg QHS MELISSA Administration Atorvastatin Calcium 40 mg 07/21/24 21:15 07/22/24 20:58 Atorvastatin 40 Mg Tablet PO 40 mg QHS MELISSA Administration Cyanocobalamin 500 mcg 07/22/24 09:00 07/22/24 12:39 Cyanocobalamin 500 Mcg Tablet PO 500 mcg QAM MELISSA Administration Cyanocobalamin 2,000 mcg 07/22/24 09:00 07/22/24 09:26 Cyanocobalamin 1,000 Mcg Tablet PO 2,000 mcg QAM MELISSA Administration Gabapentin 200 mg 07/22/24 09:00 07/22/24 17:48 Gabapentin 100 Mg Capsule PO 200 mg BID MELISSA Administration Piperacillin/Tazobactam/Dextrose 3.375 gm in 50 mls @ 100 mls/hr 07/21/24 23:00 07/23/24 06:31 Zosyn 3.375 Gm/Ns 50 Ml IVPB 100 mls/hr Q6HR MELISSA Administration Levothyroxine Sodium 25 mcg 07/22/24 06:30 07/23/24 06:08 Levothyroxine Sodium 25 Mcg Tablet PO Not Given DAILY@0630 [facility] Metoprolol Succinate 50 mg 07/23/24 09:00 07/23/24 09:04 Metoprolol Succinate Ext Rel 50 Mg Tabcr PO 50 mg QAM MELISSA Administration Ondansetron HCl 4 mg 07/22/24 08:52 Ondansetron Inj 4 Mg/2 Ml Vial IV PUSH Q6H PRN Nausea And Vomiting Pantoprazole Sodium 40 mg 07/22/24 09:00 07/22/24 09:27 Pantoprazole 40 Mg Tablet PO 40 mg QAM MELISSA Administration Tamsulosin HCl 0.4 mg 07/22/24 09:00 07/22/24 09:27 Tamsulosin Hcl 0.4 Mg Capsule PO 0.4 mg DAILY MELISSA Administration Radiology Results: ITS Impressions Abdomen/Pelvis CT 07/22/24 08:52 Impression: Percutaneous cholecystostomy tube in place with distended irregular gallbladder with marked irregular wall thickening and pericholecystic infarct or change, compatible with acute cholecystitis. Fluid-filled tract communicating with the gallbladder lumen at the superior aspect, which represents a tract related to prior cholecystostomy tube placement, with extension into the anterior abdominal wall. Additional suspected area of contained perforation at the inferior aspect of the gallbladder, which is new from prior exam. Acute L1 compression fracture, new from prior exam. Worsening T12 compression fracture as compared to prior exam with progressive loss of height. Labs Labs: Laboratory Results - last 24 hr 07/22/24 07/22/24 07/22/24 05:40 11:40 14:51 WBC RBC Hgb Hct MCV MCH MCHC RDW Plt Count MPV Immature Gran % (Auto) Neut % (Auto) Lymph % (Auto) [place] % (Auto) Eos % (Auto) Baso % (Auto) Lymph # (Auto) [place] # (Auto) Eos # (Auto) Baso # (Auto) Abs Immat Gran (auto) Absolute Neuts (auto) Absolute Nucleated RBC Nucleated RBC % PT INR APTT Sodium Potassium Chloride Carbon Dioxide Anion Gap BUN Creatinine Estim Creat Clear Calc Estimated GFR Glucose POC Capillary Glucose 112 H Hemoglobin A1c 5.2 Calcium Magnesium 2.1 Total Bilirubin AST ALT Alkaline Phosphatase Total Protein Albumin 07/23/24 07/23/24 05:48 07:53 WBC 11.6 H RBC 3.64 L Hgb 10.7 L Hct 33.8 L MCV 92.9 MCH 29.4 MCHC 31.7 L RDW 14.8 H Plt Count 294 MPV 9.9 Immature Gran % (Auto) 0.5 Neut % (Auto) 80.6 H Lymph % (Auto) 11.4 L [place] % (Auto) 6.3 Eos % (Auto) 1.0 Baso % (Auto) 0.2 Lymph # (Auto) 1.33 [place] # (Auto) 0.7 H Eos # (Auto) 0.1 Baso # (Auto) 0.0 Abs Immat Gran (auto) 0.06 H Absolute Neuts (auto) 9.4 H Absolute Nucleated RBC 0.000 Nucleated RBC % 0.0 PT 15.7 H INR 1.2 APTT 53.0 H Sodium 138 Potassium 3.8 Chloride 98 Carbon Dioxide 32 H Anion Gap 8 BUN 13 Creatinine 0.60 L Estim Creat Clear Calc 47 Estimated GFR > 60 Glucose 111 H POC Capillary Glucose Hemoglobin A1c Calcium 8.8 Magnesium 2.0 Total Bilirubin 0.9 AST 50 H ALT 34 Alkaline Phosphatase 106 Total Protein 6.0 L Albumin 3.1 L Quality VTE Prophylaxis VTE prophylaxis: mechanical ordered
--- NOTE | 2024-07-23 11:59 | P.CDI_ITS ---
CDI Query Clarification Request BMI: 26.3 Nutritional Diagnostic Statement: Please refer to the comprehensive nutrition assessment for further information. If you agree with diagnosis of Severe protein calorie malnutrition related chronic taste changes, poor appetite, nausea as evidenced by intakes <75% needs >1 month; weight loss -15%/3 months; moderate fat loss, severe muscle wasting. Please specify severity if known: * Mild * Moderate * Severe * Other/Unknown
[2024-07-23] MEDS: CYANOCOBALAMIN 1,000 MCG TABLET 2000 MCG PO (13:06)
[2024-07-23] MEDS: ACETAMINOPHEN 500 MG TABLET 1000 MG PO ×2 (13:06→20:42)
[2024-07-23] MEDS: GABAPENTIN 100 MG CAPSULE 200 MG PO ×2 (13:07→17:56)
[2024-07-23] MEDS: TAMSULOSIN HCL 0.4 MG CAPSULE PO (13:07)
[2024-07-23] MEDS: PANTOPRAZOLE 40 MG TABLET PO (13:07)
[2024-07-23] MEDS: CYANOCOBALAMIN 500 MCG TABLET PO (13:07)
[2024-07-23] MEDS: ATORVASTATIN 40 MG TABLET PO (20:41)
[2024-07-23] MEDS: AMITRIPTYLINE HCL 10 MG TABLET 20 MG PO (20:42)
[2024-07-24] VITALS (10 sets, daily range): BP systolic 100–108; BP diastolic 48–66; PULSE 80–99; RESP 13–16; TEMP 36.2–36.6; O2SAT 91–98
[2024-07-24] MEDS: PIPERACILLN/TAZ 3.375GM/NS50ML 3.375 GM/50 ML BAG IVPB ×5 (00:52→23:47)
[2024-07-24] MEDS: LEVOTHYROXINE SODIUM 25 MCG TABLET PO (06:13)
[2024-07-24 06:24] LABS: Basophils Percent Auto 0.3 % (0.2-1.2); Eosinophils Absolute Auto 0.4 K/mm3 (0-0.3); Eosinophils Percent Auto 5.3 % (0-4.4); Hematocrit 30.3 % (37.0-47.0); Immature Granulocyte Absolute 0.02 K/mm3 (0.00-0.031); Immature Granulocyte Percent A 0.3 % (0-0.5); Lymphocytes Absolute Auto 1.78 K/mm3 (0.9-3.2); Lymphocytes Percent Auto 26.7 % (18.3-44.2); Mean Corpuscular HGB Conc 29.7 g/dl (32-36); Mean Corpuscular Hemoglobin 28.5 pg (26-34); Mean Corpuscular Volume 95.9 fl (80-100); Mean Platelet Volume 10.2 fl (7.4-10.4); Monocytes Absolute Auto 0.5 K/mm3 (0.1-0.6); Monocytes Percent Auto 7.8 % (2.6-8.5); Neutrophils Percent Auto 59.6 % (45.5-73.1); Platelet Count Result 246 k/mm3 (150-375); Red Blood Count 3.16 M/mm3 (4.2-5.4); Red Cell Distribution Width 14.7 % (11.5-14.5); White Blood Count 6.7 K/mm3 (4.5-10.0)
[2024-07-24 06:33] LABS: Alanine Aminotransferase 22 U/L (6-35); Albumin Level 2.7 g/dL (3.5-5.1); Alkaline Phosphatase 98 U/L (38-126); Anion Gap 7 mmol/L (4-12); Aspartate Amino Transferase 32 U/L (14-36); Bilirubin,Total 0.3 mg/dL (0.2-1.3); Blood Urea Nitrogen 16 mg/dL (7-17); Calcium 8.5 mg/dL (8.4-10.2); Carbon Dioxide 32 mmol/L (22-30); Chloride 101 mmol/L (98-107); Estimated CRCL calculation 48 ml/min; Estimated Glomerular Filt Rate > 60; Glucose 93 mg/dL (65-110); Potassium 3.1 mmol/L (3.4-5.0); Sodium 140 mmol/L (137-145)
[2024-07-24 06:59] LABS: Hypochromasia 1+; Platelet Estimate Adequate (Adequate); Schistocytes None Seen
[2024-07-24] MEDS: CYANOCOBALAMIN 1,000 MCG TABLET 2000 MCG PO (09:32)
[2024-07-24] MEDS: TAMSULOSIN HCL 0.4 MG CAPSULE PO (09:32)
[2024-07-24] MEDS: POTASSIUM CHLORIDE 20 MEQ ER TABLET 40 MEQ PO (09:32)
[2024-07-24] MEDS: ACETAMINOPHEN 500 MG TABLET 1000 MG PO ×2 (09:33→15:15)
[2024-07-24] MEDS: ENOXAPARIN 40 MG/0.4 ML SYRINGE SUB-Q (09:34)
[2024-07-24] MEDS: GABAPENTIN 100 MG CAPSULE 200 MG PO ×2 (09:34→17:32)
[2024-07-24] MEDS: CYANOCOBALAMIN 500 MCG TABLET PO (09:34)
[2024-07-24] MEDS: PANTOPRAZOLE 40 MG TABLET PO (09:34)
--- NOTE | 2024-07-24 11:54 | P.PN_ITS ---
Progress Note: A&P Assessment and Plan (1) Atrial fibrillation: Qualifiers: Atrial fibrillation type: unspecified Qualified Code(s): I48.91 - Unspecified atrial fibrillation Code(s): I48.91 - Unspecified atrial fibrillation Status: Acute Assessment and Plan: Chronic. Usually on or systemic anticoagulation. Continue the hold that for now and use Lovenox subcutaneous for prophylaxis for AFib against stroke. Will avoid using Eliquis for now until we figure out whether she needs to have surger y. (2) Acute cholecystitis: Code(s): K81.0 - Acute cholecystitis Status: Acute Assessment and Plan: Seems to be stable and the gallbladder seems to be draining better. The drain was irrigated today and more particulate matter came out of the gallbladder and the bile seemed to thin some. Cholangiogram during the exchange of the catheter is in the gallbladder showed a patent cystic duct. No evidence of obstruction of the common bile duct. If she improves enough and has a patent cystic duct then there is a possible that we can just remove the catheter and see how she does. White blood count is normalized. Will continue IV of antibiotics for now through the weekend. Defer decision for surgery until next week and see how she does. (3) T12 compression fracture: Code(s): S22.080A - Wedge compression fracture of T11-T12 vertebra, initial encounter for closed fracture Status: Acute Assessment and Plan: Patient has pain mainly only with ambulation. A TLSO brace has been ordered and hopefully this will help stabilize her spine when she is moving and help with her pain. Will try to avoid narcotics if possible. Subjective Date/time seen: 07/24/24 11:54 Interval history: Patient seems to be a little better today. No severe abdominal pain or nausea. She had exchange of the cholecystostomy tube to a larger drain yesterday. Continues to drain some somewhat purulent looking fluid. White blood cell count has decreased to normal today. She continues on Zosyn for IV antibiotics. With injection of contrast with placement of new cholecystostomy tube yesterday a cholangiogram was performed that showed the cystic duct was patent. There was contrast going into the common bile duct and also emptying into the duodenum without evidence of obstruction. Exam GI: Other: Abdomen is soft and nondistended. Minimal tenderness in the right upper quadrant over the area the gallbladder with the drain. Output from the drain is nonbloody but somewhat thick purulent fluid. I did irrigate the drain and aspirated multiple times with about 50cc of saline solution in 10cc aliquots. The drainage seemed to get less thick and quite a bit of particulate matter came out with the aspiration. Objective Data Vital Signs Vital Signs: Vital Signs - 24 hr 07/23/24 12:00 07/23/24 13:43 07/23/24 16:00 Temperature 36.8 C Pulse Rate 106 H 104 H 94 Respiratory Rate 16 Blood Pressure 121/58 L Pulse Oximetry 94 07/23/24 20:00 07/23/24 21:43 07/24/24 00:00 Temperature 36.6 C Pulse Rate 84 84 86 Respiratory Rate 14 Blood Pressure 100/53 L Pulse Oximetry 93 07/24/24 04:00 07/24/24 05:38 07/24/24 08:50 Temperature 36.2 C L Pulse Rate 81 80 90 Respiratory Rate 13 Blood Pressure 100/48 L Pulse Oximetry 91 Intake/Output Intake/Output: Intake & Output 07/21/24 07/22/24 07/23/24 07/24/24 23:59 23:59 23:59 23:59 Intake Total 840 950 600 290 Output Total 440 800 235 Balance 840 510 -200 55 Meds/Results Medications: Active Medications Generic Name Dose Route Start Last Admin Trade Name Freq PRN Reason Stop Dose Admin Acetaminophen 1,000 mg 07/22/24 08:52 07/24/24 09:33 Acetaminophen 500 Mg Tablet PO 1,000 mg Q6H PRN Administration Mild Pain (1-3) or Fever Amitriptyline HCl 20 mg 07/21/24 21:15 07/23/24 20:42 Amitriptyline Hcl 10 Mg Tablet PO 20 mg QHS MELISSA Administration Atorvastatin Calcium 40 mg 07/21/24 21:15 07/23/24 20:41 Atorvastatin 40 Mg Tablet PO 40 mg QHS MELISSA Administration Cyanocobalamin 500 mcg 07/22/24 09:00 07/24/24 09:34 Cyanocobalamin 500 Mcg Tablet PO 500 mcg QAM MELISSA Administration Cyanocobalamin 2,000 mcg 07/22/24 09:00 07/24/24 09:32 Cyanocobalamin 1,000 Mcg Tablet PO 2,000 mcg QAM MELISSA Administration Enoxaparin Sodium 40 mg 07/23/24 16:10 07/24/24 09:34 Enoxaparin 40 Mg/0.4 Ml Syringe SUB-Q 40 mg DAILY MELISSA Administration Gabapentin 200 mg 07/22/24 09:00 07/24/24 09:34 Gabapentin 100 Mg Capsule PO 200 mg BID MELISSA Administration Piperacillin/Tazobactam/Dextrose 3.375 gm in 50 mls @ 100 mls/hr 07/21/24 23:00 07/24/24 06:12 Zosyn 3.375 Gm/Ns 50 Ml IVPB 100 mls/hr Q6HR MELISSA Administration Levothyroxine Sodium 25 mcg 07/22/24 06:30 07/24/24 06:13 Levothyroxine Sodium 25 Mcg Tablet PO 25 mcg DAILY@0630 MELISSA Administration Metoprolol Succinate 50 mg 07/24/24 09:00 Metoprolol Succinate Ext Rel 50 Mg Tabcr PO QAM MELISSA Ondansetron HCl 4 mg 07/22/24 08:52 Ondansetron Inj 4 Mg/2 Ml Vial IV PUSH Q6H PRN Nausea And Vomiting Pantoprazole Sodium 40 mg 07/22/24 09:00 07/24/24 09:34 Pantoprazole 40 Mg Tablet PO 40 mg QAM MELISSA Administration Tamsulosin HCl 0.4 mg 07/22/24 09:00 07/24/24 09:32 Tamsulosin Hcl 0.4 Mg Capsule PO 0.4 mg DAILY MELISSA Administration Radiology Results: ITS Impressions Abdomen/Pelvis CT 07/22/24 08:52 Impression: Percutaneous cholecystostomy tube in place with distended irregular gallbladder with marked irregular wall thickening and pericholecystic infarct or change, compatible with acute cholecystitis. Fluid-filled tract communicating with the gallbladder lumen at the superior aspect, which represents a tract related to prior cholecystostomy tube placement, with extension into the anterior abdominal wall. Additional suspected area of contained perforation at the inferior aspect of the gallbladder, which is new from prior exam. Acute L1 compression fracture, new from prior exam. Worsening T12 compression fracture as compared to prior exam with progressive loss of height. Cholecystostomy 07/23/24 14:08 IMPRESSION: 1. Successful upsizing to 12 [place] of a right upper quadrant percutaneous cholecystostomy tube. 2. Patent cystic and common bile ducts. Labs Labs: Laboratory Results - last 24 hr 07/24/24 05:19 WBC 6.7 RBC 3.16 L Hgb 9.0 L Hct 30.3 L MCV 95.9 MCH 28.5 MCHC 29.7 L RDW 14.7 H Plt Count 246 MPV 10.2 Immature Gran % (Auto) 0.3 Neut % (Auto) 59.6 Lymph % (Auto) 26.7 [place] % (Auto) 7.8 Eos % (Auto) 5.3 H Baso % (Auto) 0.3 Lymph # (Auto) 1.78 [place] # (Auto) 0.5 Eos # (Auto) 0.4 H Baso # (Auto) 0.0 Abs Immat Gran (auto) 0.02 Absolute Neuts (auto) 4.0 Absolute Nucleated RBC 0.000 Band Neutrophils % Not Reportable Nucleated RBC % 0.0 Platelet Estimate Adequate Hypochromasia 1+ Schistocytes None seen Sodium 140 Potassium 3.1 L Chloride 101 Carbon Dioxide 32 H Anion Gap 7 BUN 16 Creatinine 0.59 L Estim Creat Clear Calc 48 Estimated GFR > 60 Glucose 93 Calcium 8.5 Magnesium 2.0 Total Bilirubin 0.3 AST 32 ALT 22 Alkaline Phosphatase 98 Total Protein 6.0 L Albumin 2.7 L
--- NOTE | 2024-07-24 12:04 | P.PNIM_ITS ---
Progress Note: A&P Assessment and Plan (1) Essential hypertension: Code(s): I10 - Essential (primary) hypertension Status: Acute Assessment and Plan: * Blood pressure 108/66. * Metoprolol Succinate 50 mg PO QAM. (2) Coronary artery disease: Code(s): I25.10 - Atherosclerotic heart disease of [place] coronary artery without angina pectoris Status: Acute Assessment and Plan: * Atorvastatin 40 mg PO QHS. (3) Atrial fibrillation: Qualifiers: Atrial fibrillation type: unspecified Qualified Code(s): I48.91 - Unspecified atrial fibrillation Code(s): I48.91 - Unspecified atrial fibrillation Status: Acute Assessment and Plan: * Currently SR 94. * Increase to home dose of Metoprolol Succinate 100 mg PO daily. * Lovenox 40 mg subq daily. * Telemetry. (4) Hypothyroidism: Code(s): E03.9 - Hypothyroidism, unspecified Status: Acute Assessment and Plan: * Levothyroxine 25 mcg PO daily. (5) Gastroesophageal reflux disease: Code(s): K21.9 - Gastro-esophageal reflux disease without esophagitis Status: Acute Assessment and Plan: * Pantoprazole 40 mg PO QAM. (6) T12 compression fracture: Code(s): S22.080A - Wedge compression fracture of T11-T12 vertebra, initial encounter for closed fracture Status: Acute Assessment and Plan: * Patient is followed by pain management and to have kyphoplasty, patient was supposed to have this week but ended up hospitalized. * TLSO ordered. * PT/OT (7) Severe protein-calorie malnutrition: Code(s): E43 - Unspecified severe protein-calorie malnutrition Status: Acute Assessment and Plan: * Protein 6.0. * Severe protein calorie malnutrition related to taste changes, poor appetite, nausea as evidenced by intakes <75% needs >1 month. Weight loss-15%/3 months: moderate fat loss, severe muscle wasting. * Ensure Enlive TID and Nutritional ice cream TID. * Creative Services Specialist following. (8) Chronic cholecystitis with calculus: Code(s): K80.10 - Calculus of gallbladder with chronic cholecystitis without obstruction Status: Acute Assessment and Plan: * Patient had upsizing the cholecystostomy tube 07/23 in IR. * Zosyn 3.375 gm IVPB q 6. * Surgery following. (9) Hypomagnesemia: Code(s): E83.42 - Hypomagnesemia Status: Acute Assessment and Plan: * Magnesium 2.0 today, improved. * Trend level. (10) Hypokalemia: Code(s): E87.6 - Hypokalemia Status: Acute Assessment and Plan: * Potassium 3.1. * Potassium 40 meq PO x1. * Trend level. Plan This is a pleasant 84-year-old female with a past medical history CAD, arthritis, prediabetes, paroxysmal atrial fibrillation, GERD, hypothyroidism, hyperlipidemia, vitamin B12 and vitamin D deficiency. Surgical history includes history of appendectomy, hysterectomy, and in 05/2024 she was hospitalized for acute cholecystitis and treated with IV antibiotics and percutaneous cholecystostomy tube placement. She was deemed a poor surgical candidate. She was readmitted in 05/2024 with a dislodged cholecystostomy tube and evidence of acute cholecystitis. She was again treated with IV antibiotics and her cholecystostomy tube was replaced. Since then she has been at home and doing relatively well. On 07/20/2024 the daughter noted purulent drainage from the 2 and so she followed up with Dr. Chester today on the day of admission 07/21/2024 in the office. Then, admitted to [facility] once again. Patient has had poor appetite. 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 Denies any abdominal pain or other complaints but voices her frustration with the tube. Of note, the patient had a kyphoplasty planned this week and her Eliquis has been held on Saturday due to burst fracture of T12/T1. She has also lost about 26 lb in the recent months. Hospitalist team has been consulted to help manage multiple medical comorbidities in the setting of anticipated procedure and infection. ----- Subjective Date/time seen: 07/24/24 12:04 Interval history: Patient sitting up in bed. Daughter at bedside. Patient denies chest pain, palpitations, headache, dizziness, nausea, or vomiting. Discussed with patient and daughter code status. Patient and daughter both agree patient would like to be a DNR, patient does not want intubation or CPR. Review of Systems Review of Systems: All systems reviewed & are unremarkable except as noted in HPI and below Exam Const: General: comfortable and no acute distress Resp: Effort & Inspection: normal respiratory effort Auscultation: clear to auscultation bilaterally Cardio: Rate: regular rate Rhythm: regular rhythm Other: Telemetry- SR 94. GI: GI Palp: Yes Soft to palpation Auscultation: normal bowel sounds Other: Gallbladder drain in place. Dressing C/D/I. Neuro: Speech: normal speech Extrem: General: no pedal edema Psych: Mental Status: mental status grossly normal Affect: normal affect Objective Data Vital Signs Vital Signs: Vital Signs - 24 hr 07/23/24 13:43 07/23/24 16:00 07/23/24 20:00 Temperature 98.3 F Pulse Rate 104 H 94 84 Respiratory Rate 16 Blood Pressure 121/58 L Pulse Oximetry 94 07/23/24 21:43 07/24/24 00:00 07/24/24 04:00 Temperature 97.9 F Pulse Rate 84 86 81 Respiratory Rate 14 Blood Pressure 100/53 L Pulse Oximetry 93 07/24/24 05:38 07/24/24 08:50 Temperature 97.2 F L Pulse Rate 80 90 Respiratory Rate 13 Blood Pressure 100/48 L Pulse Oximetry 91 Intake/Output Intake/Output: Intake & Output 07/21/24 07/22/24 07/23/24 07/24/24 23:59 23:59 23:59 23:59 Intake Total 840 950 600 290 Output Total 440 800 235 Balance 840 510 -200 55 Meds/Results Medications: Active Medications Generic Name Dose Route Start Last Admin Trade Name Freq PRN Reason Stop Dose Admin Acetaminophen 1,000 mg 07/22/24 08:52 07/24/24 09:33 Acetaminophen 500 Mg Tablet PO 1,000 mg Q6H PRN Administration Mild Pain (1-3) or Fever Amitriptyline HCl 20 mg 07/21/24 21:15 07/23/24 20:42 Amitriptyline Hcl 10 Mg Tablet PO 20 mg QHS MELISSA Administration Atorvastatin Calcium 40 mg 07/21/24 21:15 07/23/24 20:41 Atorvastatin 40 Mg Tablet PO 40 mg QHS MELISSA Administration Cyanocobalamin 500 mcg 07/22/24 09:00 07/24/24 09:34 Cyanocobalamin 500 Mcg Tablet PO 500 mcg QAM MELISSA Administration Cyanocobalamin 2,000 mcg 07/22/24 09:00 07/24/24 09:32 Cyanocobalamin 1,000 Mcg Tablet PO 2,000 mcg QAM MELISSA Administration Enoxaparin Sodium 40 mg 07/23/24 16:10 07/24/24 09:34 Enoxaparin 40 Mg/0.4 Ml Syringe SUB-Q 40 mg DAILY MELISSA Administration Gabapentin 200 mg 07/22/24 09:00 07/24/24 09:34 Gabapentin 100 Mg Capsule PO 200 mg BID MELISSA Administration Piperacillin/Tazobactam/Dextrose 3.375 gm in 50 mls @ 100 mls/hr 07/21/24 23:00 07/24/24 06:12 Zosyn 3.375 Gm/Ns 50 Ml IVPB 100 mls/hr Q6HR MELISSA Administration Levothyroxine Sodium 25 mcg 07/22/24 06:30 07/24/24 06:13 Levothyroxine Sodium 25 Mcg Tablet PO 25 mcg DAILY@0630 MELISSA Administration Metoprolol Succinate 50 mg 07/24/24 09:00 Metoprolol Succinate Ext Rel 50 Mg Tabcr PO QAM [facility] Ondansetron HCl 4 mg 07/22/24 08:52 Ondansetron Inj 4 Mg/2 Ml Vial IV PUSH Q6H PRN Nausea And Vomiting Pantoprazole Sodium 40 mg 07/22/24 09:00 07/24/24 09:34 Pantoprazole 40 Mg Tablet PO 40 mg QAM MELISSA Administration Tamsulosin HCl 0.4 mg 07/22/24 09:00 07/24/24 09:32 Tamsulosin Hcl 0.4 Mg Capsule PO 0.4 mg DAILY MELISSA Administration Radiology Results: ITS Impressions Abdomen/Pelvis CT 07/22/24 08:52 Impression: Percutaneous cholecystostomy tube in place with distended irregular gallbladder with marked irregular wall thickening and pericholecystic infarct or change, compatible with acute cholecystitis. Fluid-filled tract communicating with the gallbladder lumen at the superior aspect, which represents a tract related to prior cholecystostomy tube placement, with extension into the anterior abdominal wall. Additional suspected area of contained perforation at the inferior aspect of the gallbladder, which is new from prior exam. Acute L1 compression fracture, new from prior exam. Worsening T12 compression fracture as compared to prior exam with progressive loss of height. Cholecystostomy 07/23/24 14:08 IMPRESSION: 1. Successful upsizing to 12 [place] of a right upper quadrant percutaneous cholecystostomy tube. 2. Patent cystic and common bile ducts. Labs Labs: Laboratory Results - last 24 hr 07/24/24 05:19 WBC 6.7 RBC 3.16 L Hgb 9.0 L Hct 30.3 L MCV 95.9 MCH 28.5 MCHC 29.7 L RDW 14.7 H Plt Count 246 MPV 10.2 Immature Gran % (Auto) 0.3 Neut % (Auto) 59.6 Lymph % (Auto) 26.7 [place] % (Auto) 7.8 Eos % (Auto) 5.3 H Baso % (Auto) 0.3 Lymph # (Auto) 1.78 [place] # (Auto) 0.5 Eos # (Auto) 0.4 H Baso # (Auto) 0.0 Abs Immat Gran (auto) 0.02 Absolute Neuts (auto) 4.0 Absolute Nucleated RBC 0.000 Band Neutrophils % Not Reportable Nucleated RBC % 0.0 Platelet Estimate Adequate Hypochromasia 1+ Schistocytes None seen Sodium 140 Potassium 3.1 L Chloride 101 Carbon Dioxide 32 H Anion Gap 7 BUN 16 Creatinine 0.59 L Estim Creat Clear Calc 48 Estimated GFR > 60 Glucose 93 Calcium 8.5 Magnesium 2.0 Total Bilirubin 0.3 AST 32 ALT 22 Alkaline Phosphatase 98 Total Protein 6.0 L Albumin 2.7 L Quality VTE Prophylaxis VTE prophylaxis: mechanical ordered
--- NOTE | 2024-07-24 13:00 | PCNFU ---
Nutrition Follow-Up Complete: Severe protein calorie malnutrition related chronic taste changes, poor appetite, nausea as evidenced by intakes <75% needs >1 month; weight loss -15%/3 months; moderate fat loss, severe muscle wasting Improve PO intake >50% meals and supplements - Progressing slowly Goal: Pt current nutrition is Heart Healthy diet with Ensure Enlive TID (350 kcal, 20 g protein) and nutritional ice cream TID (270 kcal, 9 g protein). Nutrition recommendation: No new recommendations. Continue current nutrition care plan and orders Last recorded weight is 67.4 kg. Bowel Motility: +1 BM 07/23/24 Labs Reviewed: Hgb 9.0, Hct 30.3, Alb 2.7, K+ 3.1, Cre 0.59 Meds Noted: Hgb 9.0, Hct 30.3, Alb 2.7, K+ 3.1, Cre 0.59 Skin: No skin issues Additional Notes: Pt still doesn't have much appetite from her back pain but feeling a little better from nausea after calvni tube was placed. trying to eat. Supplements are in place. Continue current orders. Agree with orders Monitoring intakes, weights, labs, supplement tolerance, plan of care Follow up in 5 days
[2024-07-24] MEDS: METOPROLOL SUCCINATE EXT REL 50 MG TABCR PO (16:33)
[2024-07-24] MEDS: AMITRIPTYLINE HCL 10 MG TABLET 20 MG PO (20:16)
[2024-07-24] MEDS: ATORVASTATIN 40 MG TABLET PO (20:17)
[2024-07-25] VITALS (10 sets, daily range): BP systolic 118–120; BP diastolic 61–65; PULSE 81–94; RESP 16–18; TEMP 36.3–36.7; O2SAT 95–97
[2024-07-25] MEDS: PIPERACILLN/TAZ 3.375GM/NS50ML 3.375 GM/50 ML BAG IVPB ×4 (05:23→23:40)
[2024-07-25 05:28] LABS: Basophils Percent Auto 0.4 % (0.2-1.2); Eosinophils Absolute Auto 0.4 K/mm3 (0-0.3); Eosinophils Percent Auto 7.2 % (0-4.4); Hematocrit 30.5 % (37.0-47.0); Hemoglobin 9.3 g/dL (12.0-15.0); Immature Granulocyte Absolute 0.02 K/mm3 (0.00-0.031); Immature Granulocyte Percent A 0.4 % (0-0.5); Lymphocytes Absolute Auto 1.94 K/mm3 (0.9-3.2); Lymphocytes Percent Auto 35.8 % (18.3-44.2); Mean Corpuscular HGB Conc 30.5 g/dl (32-36); Mean Corpuscular Hemoglobin 28.5 pg (26-34); Mean Corpuscular Volume 93.6 fl (80-100); Mean Platelet Volume 10.3 fl (7.4-10.4); Monocytes Absolute Auto 0.4 K/mm3 (0.1-0.6); Monocytes Percent Auto 6.8 % (2.6-8.5); Neutrophils Absolute Auto 2.7 K/mm3 (1.3-6.7); Neutrophils Percent Auto 49.4 % (45.5-73.1); Platelet Count Result 274 k/mm3 (150-375); Red Blood Count 3.26 M/mm3 (4.2-5.4); Red Cell Distribution Width 14.5 % (11.5-14.5); White Blood Count 5.4 K/mm3 (4.5-10.0)
[2024-07-25 05:40] LABS: Alanine Aminotransferase 20 U/L (6-35); Albumin Level 2.7 g/dL (3.5-5.1); Alkaline Phosphatase 125 U/L (38-126); Anion Gap 5 mmol/L (4-12); Aspartate Amino Transferase 30 U/L (14-36); Bilirubin,Total 0.1 mg/dL (0.2-1.3); Blood Urea Nitrogen 15 mg/dL (7-17); Calcium 8.5 mg/dL (8.4-10.2); Carbon Dioxide 31 mmol/L (22-30); Chloride 102 mmol/L (98-107); Estimated CRCL calculation 54 ml/min; Estimated Glomerular Filt Rate > 60; Glucose 105 mg/dL (65-110); Magnesium 1.8 mg/dL (1.6-2.3); Potassium 3.4 mmol/L (3.4-5.0); Sodium 138 mmol/L (137-145)
[2024-07-25] MEDS: LEVOTHYROXINE SODIUM 25 MCG TABLET PO (06:24)
[2024-07-25] MEDS: ENOXAPARIN 40 MG/0.4 ML SYRINGE SUB-Q (08:53)
[2024-07-25] MEDS: CYANOCOBALAMIN 500 MCG TABLET PO (08:54)
[2024-07-25] MEDS: METOPROLOL SUCCINATE EXT REL 50 MG TABCR PO (08:54)
[2024-07-25] MEDS: PANTOPRAZOLE 40 MG TABLET PO (08:54)
[2024-07-25] MEDS: CYANOCOBALAMIN 1,000 MCG TABLET 2000 MCG PO (08:54)
[2024-07-25] MEDS: TAMSULOSIN HCL 0.4 MG CAPSULE PO (08:54)
[2024-07-25] MEDS: GABAPENTIN 100 MG CAPSULE 200 MG PO ×2 (08:54→17:45)
[2024-07-25] MEDS: ACETAMINOPHEN 500 MG TABLET 1000 MG PO (08:56)
[2024-07-25] MEDS: POTASSIUM CHLORIDE 20 MEQ ER TABLET 40 MEQ PO (09:15)
--- NOTE | 2024-07-25 11:37 | P.PNIM_ITS ---
Progress Note: A&P Assessment and Plan (1) Essential hypertension: Code(s): I10 - Essential (primary) hypertension Status: Acute Assessment and Plan: * Blood pressure 120/65. * Metoprolol Succinate 50 mg PO QAM. (2) Coronary artery disease: Code(s): I25.10 - Atherosclerotic heart disease of [place] coronary artery without angina pectoris Status: Acute Assessment and Plan: * Atorvastatin 40 mg PO QHS. (3) Atrial fibrillation: Qualifiers: Atrial fibrillation type: unspecified Qualified Code(s): I48.91 - Unspecified atrial fibrillation Code(s): I48.91 - Unspecified atrial fibrillation Status: Acute Assessment and Plan: * Currently SR 86. * Metoprolol Succinate 50 mg PO daily. * Lovenox 40 mg subq daily. * Telemetry. (4) Hypothyroidism: Code(s): E03.9 - Hypothyroidism, unspecified Status: Acute Assessment and Plan: * Levothyroxine 25 mcg PO daily. (5) Gastroesophageal reflux disease: Code(s): K21.9 - Gastro-esophageal reflux disease without esophagitis Status: Acute Assessment and Plan: * Pantoprazole 40 mg PO QAM. (6) T12 compression fracture: Code(s): S22.080A - Wedge compression fracture of T11-T12 vertebra, initial encounter for closed fracture Status: Acute Assessment and Plan: * Patient is followed by pain management and to have kyphoplasty, patient was supposed to have this week but ended up hospitalized. * TLSO ordered. * PT/OT (7) Severe protein-calorie malnutrition: Code(s): E43 - Unspecified severe protein-calorie malnutrition Status: Acute Assessment and Plan: * Protein 6.0. * Severe protein calorie malnutrition related to taste changes, poor appetite, nausea as evidenced by intakes <75% needs >1 month. Weight loss-15%/3 months: moderate fat loss, severe muscle wasting. * Ensure Enlive TID and Nutritional ice cream TID. * Gear Design Engineer following. (8) Chronic cholecystitis with calculus: Code(s): K80.10 - Calculus of gallbladder with chronic cholecystitis without obstruction Status: Acute Assessment and Plan: * Patient had upsizing the cholecystostomy tube 07/23 in IR. * Zosyn 3.375 gm IVPB q 6. * Surgery following. (9) Hypomagnesemia: Code(s): E83.42 - Hypomagnesemia Status: Acute Assessment and Plan: * Magnesium 1.8 today. * Trend level. (10) Hypokalemia: Code(s): E87.6 - Hypokalemia Status: Acute Assessment and Plan: * Potassium 3.4. * Potassium 40 meq PO x1. * Trend level. Plan This is a pleasant 84-year-old female with a past medical history CAD, arthritis, prediabetes, paroxysmal atrial fibrillation, GERD, hypothyroidism, hy perlipidemia, vitamin B12 and vitamin D deficiency. Surgical history includes history of appendectomy, hysterectomy, and in 05/2024 she was hospitalized for acute cholecystitis and treated with IV antibiotics and percutaneous cholecystostomy tube placement. She was deemed a poor surgical candidate. She was readmitted in 05/2024 with a dislodged cholecystostomy tube and evidence of acute cholecystitis. She was again treated with IV antibiotics and her cholecystostomy tube was replaced. Since then she has been at home and doing relatively well. On 07/20/2024 the daughter noted purulent drainage from the 2 and so she followed up with Dr. Chester on the day of admission 07/21/2024 in the office. Then, admitted to [facility] once again. Patient has had poor appetite. 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 Denies any abdominal pain or other complaints but voices her frustration with the tube. Of note, the patient had a kyphoplasty planned this week and her Eliquis has been held on Saturday due to burst fracture of T12/T1. She has also lost about 26 lb in the recent months. Hospitalist team has been consulted to help manage multiple medical comorbidities in the setting of anticipated procedure and infection. ----- Subjective Date/time seen: 07/25/24 11:37 Interval history: Patient sitting up in bed. Daughters at bedside. Patient denies chest pain, palpitations, headache, dizziness, nausea, or vomiting. Reports appetite is better today. Review of Systems Review of Systems: All systems reviewed & are unremarkable except as noted in HPI and below Exam Const: General: comfortable and no acute distress Resp: Effort & Inspection: normal respiratory effort Auscultation: clear to auscultation bilaterally Cardio: Rate: regular rate Rhythm: regular rhythm Other: Telemetry-SR 86. GI: GI Palp: Yes Soft to palpation Auscultation: normal bowel sounds Other: Gallbladder drain in place. Dressing C/D/I. Neuro: Speech: normal speech Extrem: General: no pedal edema Psych: Mental Status: mental status grossly normal Affect: normal affect Objective Data Vital Signs Vital Signs: Vital Signs - 24 hr 07/24/24 12:00 07/24/24 13:45 07/24/24 14:00 Temperature 97.4 F L Pulse Rate 88 99 Respiratory Rate 15 Blood Pressure 108/66 Pulse Oximetry 98 Oxygen Delivery Room Air 07/24/24 14:35 07/24/24 16:00 07/24/24 16:33 Temperature Pulse Rate 88 96 Respiratory Rate Blood Pressure Pulse Oximetry Oxygen Delivery Room Air 07/24/24 20:00 07/24/24 21:25 07/25/24 00:00 Temperature 97.9 F Pulse Rate 87 88 94 Respiratory Rate 16 Blood Pressure 102/57 L Pulse Oximetry 95 Oxygen Delivery 07/25/24 04:00 07/25/24 06:00 07/25/24 08:00 Temperature 97.4 F L Pulse Rate 81 82 Respiratory Rate 16 Blood Pressure 120/65 Pulse Oximetry 97 Oxygen Delivery Room Air 07/25/24 08:00 07/25/24 08:54 Temperature Pulse Rate 90 82 Respiratory Rate Blood Pressure Pulse Oximetry Oxygen Delivery Intake/Output Intake/Output: Intake & Output 07/22/24 07/23/24 07/24/24 07/25/24 23:59 23:59 23:59 23:59 Intake Total 950 600 898 870 Output Total 440 800 235 220 Balance 510 -200 663 650 Meds/Results Medications: Active Medications Generic Name Dose Route Start Last Admin Trade Name Freq PRN Reason Stop Dose Admin Acetaminophen 1,000 mg 07/22/24 08:52 07/25/24 08:56 Acetaminophen 500 Mg Tablet PO 1,000 mg Q6H PRN Administration Mild Pain (1-3) or Fever Amitriptyline HCl 20 mg 07/21/24 21:15 07/24/24 20:16 Amitriptyline Hcl 10 Mg Tablet PO 20 mg QHS MELISSA Administration Atorvastatin Calcium 40 mg 07/21/24 21:15 07/24/24 20:17 Atorvastatin 40 Mg Tablet PO 40 mg QHS MELISSA Administration Cyanocobalamin 500 mcg 07/22/24 09:00 07/25/24 08:54 Cyanocobalamin 500 Mcg Tablet PO 500 mcg QAM MELISSA Administration Cyanocobalamin 2,000 mcg 07/22/24 09:00 07/25/24 08:54 Cyanocobalamin 1,000 Mcg Tablet PO 2,000 mcg QAM MELISSA Administration Enoxaparin Sodium 40 mg 07/23/24 16:10 07/25/24 08:53 Enoxaparin 40 Mg/0.4 Ml Syringe SUB-Q 40 mg DAILY MELISSA Administration Gabapentin 200 mg 07/22/24 09:00 07/25/24 08:54 Gabapentin 100 Mg Capsule PO 200 mg BID MELISSA Administration Piperacillin/Tazobactam/Dextrose 3.375 gm in 50 mls @ 100 mls/hr 07/21/24 23:00 07/25/24 05:23 Zosyn 3.375 Gm/Ns 50 Ml IVPB 100 mls/hr Q6HR MELISSA Administration Levothyroxine Sodium 25 mcg 07/22/24 06:30 07/25/24 06:24 Levothyroxine Sodium 25 Mcg Tablet PO 25 mcg DAILY@0630 MELISSA Administration Metoprolol Succinate 50 mg 07/24/24 09:00 07/25/24 08:54 Metoprolol Succinate Ext Rel 50 Mg Tabcr PO 50 mg QAM MELISSA Administration Ondansetron HCl 4 mg 07/22/24 08:52 Ondansetron Inj 4 Mg/2 Ml Vial IV PUSH Q6H PRN Nausea And Vomiting Pantoprazole Sodium 40 mg 07/22/24 09:00 07/25/24 08:54 Pantoprazole 40 Mg Tablet PO 40 mg QAM MELISSA Administration Tamsulosin HCl 0.4 mg 07/22/24 09:00 07/25/24 08:54 Tamsulosin Hcl 0.4 Mg Capsule PO 0.4 mg DAILY MELISSA Administration Radiology Results: ITS Impressions Abdomen/Pelvis CT 07/22/24 08:52 Impression: Percutaneous cholecystostomy tube in place with distended irregular gallbladder with marked irregular wall thickening and pericholecystic infarct or change, compatible with acute cholecystitis. Fluid-filled tract communicating with the gallbladder lumen at the superior aspect, which represents a tract related to prior cholecystostomy tube placement, with extension into the anterior abdominal wall. Additional suspected area of contained perforation at the inferior aspect of the gallbladder, which is new from prior exam. Acute L1 compression fracture, new from prior exam. Worsening T12 compression fracture as compared to prior exam with progressive loss of height. Cholecystostomy 07/23/24 14:08 IMPRESSION: 1. Successful upsizing to 12 [place] of a right upper quadrant percutaneous cholecystostomy tube. 2. Patent cystic and common bile ducts. Labs Labs: Laboratory Results - last 24 hr 07/25/24 04:46 WBC 5.4 RBC 3.26 L Hgb 9.3 L Hct 30.5 L MCV 93.6 MCH 28.5 MCHC 30.5 L RDW 14.5 Plt Count 274 MPV 10.3 Immature Gran % (Auto) 0.4 Neut % (Auto) 49.4 Lymph % (Auto) 35.8 [place] % (Auto) 6.8 Eos % (Auto) 7.2 H Baso % (Auto) 0.4 Lymph # (Auto) 1.94 [place] # (Auto) 0.4 Eos # (Auto) 0.4 H Baso # (Auto) 0.0 Abs Immat Gran (auto) 0.02 Absolute Neuts (auto) 2.7 Absolute Nucleated RBC 0.000 Nucleated RBC % 0.0 Sodium 138 Potassium 3.4 Chloride 102 Carbon Dioxide 31 H Anion Gap 5 BUN 15 Creatinine 0.52 L Estim Creat Clear Calc 54 Estimated GFR > 60 Glucose 105 Calcium 8.5 Magnesium 1.8 Total Bilirubin 0.1 L AST 30 ALT 20 Alkaline Phosphatase 125 Total Protein 6.0 L Albumin 2.7 L Quality VTE Prophylaxis VTE prophylaxis: mechanical ordered and pharmacologic ordered
--- NOTE | 2024-07-25 13:24 | P.PNGS_ITS ---
Progress Note: A&P Assessment and Plan (1) Cholecystitis: Code(s): K81.9 - Cholecystitis, unspecified Status: Acute Assessment and Plan: exam benign, cont drain and abx, encourage OOB Subjective Subjective Date/Time Seen: 07/25/24 13:24 Interval history: feels ok, c/o low back pain, alton diet Review of Systems Review of Systems: All systems reviewed & are unremarkable except as noted in HPI and below Exam Const: General: cooperative, comfortable and no acute distress Resp: Auscultation: clear to auscultation bilaterally Cardio: Rate: regular rate Rhythm: regular rhythm GI: Inspection: normal to inspection and non-distended GI Palp: No abdominal tenderness and Yes Soft to palpation Other: calvin tube c bilious drainage Objective Data Vital Signs Vital Signs: Vital Signs - 24 hr 07/24/24 13:45 07/24/24 14:00 07/24/24 14:35 Temperature 36.3 C L Pulse Rate 99 Respiratory Rate 15 Blood Pressure 108/66 Pulse Oximetry 98 Oxygen Delivery Room Air Room Air 07/24/24 16:00 07/24/24 16:33 07/24/24 20:00 Temperature Pulse Rate 88 96 87 Respiratory Rate Blood Pressure Pulse Oximetry Oxygen Delivery 07/24/24 21:25 07/25/24 00:00 07/25/24 04:00 Temperature 36.6 C Pulse Rate 88 94 81 Respiratory Rate 16 Blood Pressure 102/57 L Pulse Oximetry 95 Oxygen Delivery 07/25/24 06:00 07/25/24 08:00 07/25/24 08:00 Temperature 36.3 C L Pulse Rate 82 90 Respiratory Rate 16 Blood Pressure 120/65 Pulse Oximetry 97 Oxygen Delivery Room Air 07/25/24 08:54 07/25/24 12:03 Temperature Pulse Rate 82 81 Respiratory Rate Blood Pressure Pulse Oximetry Oxygen Delivery Intake/Output Intake/Output: Intake & Output 07/22/24 07/23/24 07/24/24 07/25/24 23:59 23:59 23:59 23:59 Intake Total 950 600 898 920 Output Total 440 800 235 220 Balance 510 -200 663 700 Meds/Results Medications: Active Medications Generic Name Dose Route Start Last Admin Trade Name Freq PRN Reason Stop Dose Admin Acetaminophen 1,000 mg 07/22/24 08:52 07/25/24 08:56 Acetaminophen 500 Mg Tablet PO 1,000 mg Q6H PRN Administration Mild Pain (1-3) or Fever Amitriptyline HCl 20 mg 07/21/24 21:15 07/24/24 20:16 Amitriptyline Hcl 10 Mg Tablet PO 20 mg QHS MELISSA Administration Atorvastatin Calcium 40 mg 07/21/24 21:15 07/24/24 20:17 Atorvastatin 40 Mg Tablet PO 40 mg QHS MELISSA Administration Cyanocobalamin 500 mcg 07/22/24 09:00 07/25/24 08:54 Cyanocobalamin 500 Mcg Tablet PO 500 mcg QAM MELISSA Administration Cyanocobalamin 2,000 mcg 07/22/24 09:00 07/25/24 08:54 Cyanocobalamin 1,000 Mcg Tablet PO 2,000 mcg QAM [facility] Administration Enoxaparin Sodium 40 mg 07/23/24 16:10 07/25/24 08:53 Enoxaparin 40 Mg/0.4 Ml Syringe SUB-Q 40 mg DAILY MELISSA Administration Gabapentin 200 mg 07/22/24 09:00 07/25/24 08:54 Gabapentin 100 Mg Capsule PO 200 mg BID MELISSA Administration Piperacillin/Tazobactam/Dextrose 3.375 gm in 50 mls @ 100 mls/hr 07/21/24 23:00 07/25/24 12:30 Zosyn 3.375 Gm/Ns 50 Ml IVPB 100 mls/hr Q6HR [facility] Administration Levothyroxine Sodium 25 mcg 07/22/24 06:30 07/25/24 06:24 Levothyroxine Sodium 25 Mcg Tablet PO 25 mcg DAILY@0630 MELISSA Administration Metoprolol Succinate 50 mg 07/24/24 09:00 07/25/24 08:54 Metoprolol Succinate Ext Rel 50 Mg Tabcr PO 50 mg QAM [facility] Administration Ondansetron HCl 4 mg 07/22/24 08:52 Ondansetron Inj 4 Mg/2 Ml Vial IV PUSH Q6H PRN Nausea And Vomiting Pantoprazole Sodium 40 mg 07/22/24 09:00 07/25/24 08:54 Pantoprazole 40 Mg Tablet PO 40 mg QAM [facility] Administration Tamsulosin HCl 0.4 mg 07/22/24 09:00 07/25/24 08:54 Tamsulosin Hcl 0.4 Mg Capsule PO 0.4 mg DAILY MELISSA Administration Radiology Results: ITS Impressions Abdomen/Pelvis CT 07/22/24 08:52 Impression: Percutaneous cholecystostomy tube in place with distended irregular gallbladder with marked irregular wall thickening and pericholecystic infarct or change, compatible with acute cholecystitis. Fluid-filled tract communicating with the gallbladder lumen at the superior aspect, which represents a tract related to prior cholecystostomy tube placement, with extension into the anterior abdominal wall. Additional suspected area of contained perforation at the inferior aspect of the gallbladder, which is new from prior exam. Acute L1 compression fracture, new from prior exam. Worsening T12 compression fracture as compared to prior exam with progressive loss of height. Cholecystostomy 07/23/24 14:08 IMPRESSION: 1. Successful upsizing to 12 [place] of a right upper quadrant percutaneous cholecystostomy tube. 2. Patent cystic and common bile ducts. Labs Labs: Laboratory Results - last 24 hr 07/25/24 04:46 WBC 5.4 RBC 3.26 L Hgb 9.3 L Hct 30.5 L MCV 93.6 MCH 28.5 MCHC 30.5 L RDW 14.5 Plt Count 274 MPV 10.3 Immature Gran % (Auto) 0.4 Neut % (Auto) 49.4 Lymph % (Auto) 35.8 [place] % (Auto) 6.8 Eos % (Auto) 7.2 H Baso % (Auto) 0.4 Lymph # (Auto) 1.94 [place] # (Auto) 0.4 Eos # (Auto) 0.4 H Baso # (Auto) 0.0 Abs Immat Gran (auto) 0.02 Absolute Neuts (auto) 2.7 Absolute Nucleated RBC 0.000 Nucleated RBC % 0.0 Sodium 138 Potassium 3.4 Chloride 102 Carbon Dioxide 31 H Anion Gap 5 BUN 15 Creatinine 0.52 L Estim Creat Clear Calc 54 Estimated GFR > 60 Glucose 105 Calcium 8.5 Magnesium 1.8 Total Bilirubin 0.1 L AST 30 ALT 20 Alkaline Phosphatase 125 Total Protein 6.0 L Albumin 2.7 L
[2024-07-25] MEDS: KETOROLAC 15 MG/ML VIAL (*BKC) IV PUSH ×2 (13:59→21:00)
[2024-07-25] MEDS: AMITRIPTYLINE HCL 10 MG TABLET 20 MG PO (21:01)
[2024-07-25] MEDS: ATORVASTATIN 40 MG TABLET PO (21:01)
[2024-07-26] VITALS (9 sets, daily range): BP systolic 118–134; BP diastolic 59–78; PULSE 68–100; RESP 16–20; TEMP 36.3–36.6; O2SAT 95–100
[2024-07-26] MEDS: KETOROLAC 15 MG/ML VIAL (*BKC) IV PUSH ×3 (05:30→21:06)
[2024-07-26] MEDS: LEVOTHYROXINE SODIUM 25 MCG TABLET PO (05:30)
[2024-07-26] MEDS: PIPERACILLN/TAZ 3.375GM/NS50ML 3.375 GM/50 ML BAG IVPB ×3 (05:30→17:36)
[2024-07-26 06:09] LABS: Basophils Percent Auto 0.5 % (0.2-1.2); Eosinophils Absolute Auto 0.4 K/mm3 (0-0.3); Eosinophils Percent Auto 9.6 % (0-4.4); Hematocrit 31.2 % (37.0-47.0); Hemoglobin 9.2 g/dL (12.0-15.0); Immature Granulocyte Absolute 0.02 K/mm3 (0.00-0.031); Immature Granulocyte Percent A 0.5 % (0-0.5); Lymphocytes Absolute Auto 1.88 K/mm3 (0.9-3.2); Lymphocytes Percent Auto 42.8 % (18.3-44.2); Mean Corpuscular HGB Conc 29.5 g/dl (32-36); Mean Corpuscular Hemoglobin 28.1 pg (26-34); Mean Corpuscular Volume 95.4 fl (80-100); Mean Platelet Volume 10.1 fl (7.4-10.4); Monocytes Absolute Auto 0.4 K/mm3 (0.1-0.6); Monocytes Percent Auto 8.4 % (2.6-8.5); Neutrophils Absolute Auto 1.7 K/mm3 (1.3-6.7); Neutrophils Percent Auto 38.2 % (45.5-73.1); Platelet Count Result 276 k/mm3 (150-375); Red Blood Count 3.27 M/mm3 (4.2-5.4); Red Cell Distribution Width 14.8 % (11.5-14.5); White Blood Count 4.4 K/mm3 (4.5-10.0)
[2024-07-26 06:25] LABS: Alanine Aminotransferase 19 U/L (6-35); Albumin Level 2.6 g/dL (3.5-5.1); Alkaline Phosphatase 117 U/L (38-126); Anion Gap 3 mmol/L (4-12); Aspartate Amino Transferase 30 U/L (14-36); Bilirubin,Total 0.2 mg/dL (0.2-1.3); Blood Urea Nitrogen 20 mg/dL (7-17); Calcium 8.6 mg/dL (8.4-10.2); Carbon Dioxide 32 mmol/L (22-30); Chloride 104 mmol/L (98-107); Estimated CRCL calculation 49 ml/min; Estimated Glomerular Filt Rate > 60; Glucose 102 mg/dL (65-110); Magnesium 1.6 mg/dL (1.6-2.3); Sodium 139 mmol/L (137-145)
[2024-07-26] MEDS: PANTOPRAZOLE 40 MG TABLET PO (08:56)
[2024-07-26] MEDS: TAMSULOSIN HCL 0.4 MG CAPSULE PO (08:56)
[2024-07-26] MEDS: GABAPENTIN 100 MG CAPSULE 200 MG PO ×2 (08:56→17:36)
[2024-07-26] MEDS: CYANOCOBALAMIN 1,000 MCG TABLET 2000 MCG PO (08:56)
[2024-07-26] MEDS: CYANOCOBALAMIN 500 MCG TABLET PO (08:56)
[2024-07-26] MEDS: METOPROLOL SUCCINATE EXT REL 50 MG TABCR PO (08:56)
[2024-07-26] MEDS: ENOXAPARIN 40 MG/0.4 ML SYRINGE SUB-Q (08:56)
[2024-07-26] MEDS: MAGNESIUM SULF 2 GM/WATER 50ML 2 GM/50 ML BAG IVPB (09:01)
--- NOTE | 2024-07-26 10:32 | PM.PNGS ---
Progress Note: A&P Assessment and Plan (1) Acute cholecystitis: Code(s): K81.0 - Acute cholecystitis Status: Acute Assessment and Plan: exam benign, continue drain and antibiotics Subjective Subjective Date/Time Seen: 07/26/24 10:32 Interval history: feels a little better today, reports weakness and fatigue Review of Systems Review of Systems: All systems reviewed & are unremarkable except as noted in HPI and below Exam Const: General: cooperative, comfortable, no acute distress and ill appearing Resp: Auscultation: diminished lung sounds Cardio: Rate: regular rate Rhythm: regular rhythm GI: Inspection: normal to inspection and non-distended GI Palp: No abdominal tenderness and Yes Soft to palpation Other: perc cholecystostomy tube with bilious drainage Objective Data Vital Signs Vital Signs: Vital Signs - 24 hr 07/25/24 12:03 07/25/24 14:00 07/25/24 16:47 Temperature 36.7 C Pulse Rate 81 91 84 Respiratory Rate 16 Blood Pressure 118/63 Pulse Oximetry 95 Oxygen Delivery 07/25/24 20:00 07/25/24 20:00 07/25/24 20:35 Temperature 36.5 C Pulse Rate 85 84 85 Respiratory Rate 18 18 Blood Pressure 119/61 Pulse Oximetry 95 95 Oxygen Delivery Room Air 07/26/24 00:00 07/26/24 04:00 07/26/24 05:56 Temperature 36.6 C Pulse Rate 84 68 86 Respiratory Rate 18 Blood Pressure 134/64 Pulse Oximetry 95 Oxygen Delivery Intake/Output Intake/Output: Intake & Output 07/23/24 07/24/24 07/25/24 07/26/24 23:59 23:59 23:59 23:59 Intake Total 197 402 6107 1037 Output Total 800 235 220 Balance -620 591 9262 1037 Meds/Results Medications: Active Medications Generic Name Dose Route Start Last Admin Trade Name Freq PRN Reason Stop Dose Admin Acetaminophen 1,000 mg 07/22/24 08:52 07/25/24 08:56 Acetaminophen 500 Mg Tablet PO 1,000 mg Q6H PRN Administration Mild Pain (1-3) or Fever Amitriptyline HCl 20 mg 07/21/24 21:15 07/25/24 21:01 Amitriptyline Hcl 10 Mg Tablet PO 20 mg QHS MELISSA Administration Atorvastatin Calcium 40 mg 07/21/24 21:15 07/25/24 21:01 Atorvastatin 40 Mg Tablet PO 40 mg QHS MELISSA Administration Cyanocobalamin 500 mcg 07/22/24 09:00 07/26/24 08:56 Cyanocobalamin 500 Mcg Tablet PO 500 mcg QAM MELISSA Administration Cyanocobalamin 2,000 mcg 07/22/24 09:00 07/26/24 08:56 Cyanocobalamin 1,000 Mcg Tablet PO 2,000 mcg QAM MELISSA Administration Enoxaparin Sodium 40 mg 07/23/24 16:10 07/26/24 08:56 Enoxaparin 40 Mg/0.4 Ml Syringe SUB-Q 40 mg DAILY MELISSA Administration Gabapentin 200 mg 07/22/24 09:00 07/26/24 08:56 Gabapentin 100 Mg Capsule PO 200 mg BID MELISSA Administration Piperacillin/Tazobactam/Dextrose 3.375 gm in 50 mls @ 100 mls/hr 07/21/24 23:00 07/26/24 06:00 Zosyn 3.375 Gm/Ns 50 Ml IVPB Infused Q6HR [facility] Infusion Ketorolac Tromethamine 15 mg 07/25/24 13:23 07/26/24 05:30 Ketorolac 15 Mg/Ml Vial (*Bkc) IV PUSH 15 mg Q6H PRN Administration Pain Rated 4-6 Levothyroxine Sodium 25 mcg 07/22/24 06:30 07/26/24 05:30 Levothyroxine Sodium 25 Mcg Tablet PO 25 mcg DAILY@0630 [facility] Administration Metoprolol Succinate 50 mg 07/24/24 09:00 07/26/24 08:56 Metoprolol Succinate Ext Rel 50 Mg Tabcr PO 50 mg QAM [facility] Administration Ondansetron HCl 4 mg 07/22/24 08:52 Ondansetron Inj 4 Mg/2 Ml Vial IV PUSH Q6H PRN Nausea And Vomiting Pantoprazole Sodium 40 mg 07/22/24 09:00 07/26/24 08:56 Pantoprazole 40 Mg Tablet PO 40 mg QAM [facility] Administration Tamsulosin HCl 0.4 mg 07/22/24 09:00 07/26/24 08:56 Tamsulosin Hcl 0.4 Mg Capsule PO 0.4 mg DAILY MELISSA Administration Radiology Results: ITS Impressions Abdomen/Pelvis CT 07/22/24 08:52 Impression: Percutaneous cholecystostomy tube in place with distended irregular gallbladder with marked irregular wall thickening and pericholecystic infarct or change, compatible with acute cholecystitis. Fluid-filled tract communicating with the gallbladder lumen at the superior aspect, which represents a tract related to prior cholecystostomy tube placement, with extension into the anterior abdominal wall. Additional suspected area of contained perforation at the inferior aspect of the gallbladder, which is new from prior exam. Acute L1 compression fracture, new from prior exam. Worsening T12 compression fracture as compared to prior exam with progressive loss of height. Cholecystostomy 07/23/24 14:08 IMPRESSION: 1. Successful upsizing to 12 [place] of a right upper quadrant percutaneous cholecystostomy tube. 2. Patent cystic and common bile ducts. Labs Labs: Laboratory Results - last 24 hr 07/26/24 05:26 WBC 4.4 L RBC 3.27 L Hgb 9.2 L Hct 31.2 L MCV 95.4 MCH 28.1 MCHC 29.5 L RDW 14.8 H Plt Count 276 MPV 10.1 Immature Gran % (Auto) 0.5 Neut % (Auto) 38.2 L Lymph % (Auto) 42.8 [place] % (Auto) 8.4 Eos % (Auto) 9.6 H Baso % (Auto) 0.5 Lymph # (Auto) 1.88 [place] # (Auto) 0.4 Eos # (Auto) 0.4 H Baso # (Auto) 0.0 Abs Immat Gran (auto) 0.02 Absolute Neuts (auto) 1.7 Absolute Nucleated RBC 0.000 Nucleated RBC % 0.0 Sodium 139 Potassium 4.0 Chloride 104 Carbon Dioxide 32 H Anion Gap 3 L BUN 20 H Creatinine 0.58 L Estim Creat Clear Calc 49 Estimated GFR > 60 Glucose 102 Calcium 8.6 Magnesium 1.6 Total Bilirubin 0.2 AST 30 ALT 19 Alkaline Phosphatase 117 Total Protein 6.0 L Albumin 2.6 L
--- NOTE | 2024-07-26 10:54 | P.PNIM_ITS ---
Progress Note: A&P Assessment and Plan (1) Essential hypertension: Code(s): I10 - Essential (primary) hypertension Status: Acute Assessment and Plan: * Blood pressure 134/64. * Metoprolol Succinate 50 mg PO QAM. (2) Coronary artery disease: Code(s): I25.10 - Atherosclerotic heart disease of [place] coronary artery without angina pectoris Status: Acute Assessment and Plan: * Atorvastatin 40 mg PO QHS. (3) Atrial fibrillation: Qualifiers: Atrial fibrillation type: unspecified Qualified Code(s): I48.91 - Unspecified atrial fibrillation Code(s): I48.91 - Unspecified atrial fibrillation Status: Acute Assessment and Plan: * Currently SR 75. * Metoprolol Succinate 50 mg PO daily. * Lovenox 40 mg subq daily. * Telemetry. (4) Hypothyroidism: Code(s): E03.9 - Hypothyroidism, unspecified Status: Acute Assessment and Plan: * Levothyroxine 25 mcg PO daily. (5) Gastroesophageal reflux disease: Code(s): K21.9 - Gastro-esophageal reflux disease without esophagitis Status: Acute Assessment and Plan: * Pantoprazole 40 mg PO QAM. (6) T12 compression fracture: Code(s): S22.080A - Wedge compression fracture of T11-T12 vertebra, initial encounter for closed fracture Status: Acute Assessment and Plan: * Patient is followed by pain management and to have kyphoplasty, patient was supposed to have this week but ended up hospitalized. * TLSO ordered. * PT/OT (7) Severe protein-calorie malnutrition: Code(s): E43 - Unspecified severe protein-calorie malnutrition Status: Acute Assessment and Plan: * Protein 6.0. * Severe protein calorie malnutrition related to taste changes, poor appetite, nausea as evidenced by intakes <75% needs >1 month. Weight loss-15%/3 months: moderate fat loss, severe muscle wasting. * Ensure Enlive TID and Nutritional ice cream TID. * Senior [employer] following. (8) Chronic cholecystitis with calculus: Code(s): K80.10 - Calculus of gallbladder with chronic cholecystitis without obstruction Status: Acute Assessment and Plan: * Patient had upsizing the cholecystostomy tube 07/23 in IR. * Zosyn 3.375 gm IVPB q 6. * Surgery following. (9) Hypomagnesemia: Code(s): E83.42 - Hypomagnesemia Status: Acute Assessment and Plan: * Magnesium 1.6 today. * Magnesium Sulfate 2 gram IVPB x 1. * Trend level. (10) Hypokalemia: Code(s): E87.6 - Hypokalemia Status: Acute Assessment and Plan: * Potassium 4.0. * Trend level. Plan This is a pleasant 84-year-old female with a past medical history CAD, arthritis, prediabetes, paroxysmal atrial fibrillation, GERD, hypothyroidism, hyperlipidemia, vitamin B12 and vitamin D deficiency. Surgical history includes history of appendectomy, hysterectomy, and in 05/2024 she was hospitalized for acute cholecystitis and treated with IV antibiotics and percutaneous cholecystostomy tube placement. She was deemed a poor surgical candidate. She was readmitted in 05/2024 with a dislodged cholecystostomy tube and evidence of acute cholecystitis. She was again treated with IV antibiotics and her cholecystostomy tube was replaced. Since then she has been at home and doing relatively well. On 07/20/2024 the daughter noted purulent drainage from the 2 and so she followed up with Dr. Chester on the day of admission 07/21/2024 in the office. Then, admitted to [facility] once again. Patient has had poor appetite. 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 Denies any abdominal pain or other complaints but voices her frustration with the tube. Of note, the patient had a kyphoplasty planned this week and her Eliquis has been held on Saturday due to burst fracture of T12/T1. She has also lost about 26 lb in the recent months. Hospitalist team has been consulted to help manage multiple medical comorbidities in the setting of anticipated procedure and infection. ----- Subjective Date/time seen: 07/26/24 10:54 Interval history: Patient sitting up in bed. Daughters at bedside. Patient denies chest pain, palpitations, headache, dizziness, nausea, or vomiting. Reports appetite is bet ter today. Review of Systems Review of Systems: All systems reviewed & are unremarkable except as noted in HPI and below Exam Const: General: comfortable and no acute distress Resp: Effort & Inspection: normal respiratory effort Auscultation: clear to auscultation bilaterally Cardio: Rate: regular rate Rhythm: regular rhythm Other: Telemetry- SR 75. GI: GI Palp: Yes Soft to palpation Auscultation: normal bowel sounds Other: Gallbladder drain in place. Dressing C/D/I. Neuro: Speech: normal speech Extrem: General: no pedal edema Psych: Mental Status: mental status grossly normal Affect: normal affect Objective Data Vital Signs Vital Signs: Vital Signs - 24 hr 07/25/24 12:03 07/25/24 14:00 07/25/24 16:47 Temperature 98.0 F Pulse Rate 81 91 84 Respiratory Rate 16 Blood Pressure 118/63 Pulse Oximetry 95 Oxygen Delivery 07/25/24 20:00 07/25/24 20:00 07/25/24 20:35 Temperature 97.7 F Pulse Rate 85 84 85 Respiratory Rate 18 18 Blood Pressure 119/61 Pulse Oximetry 95 95 Oxygen Delivery Room Air 07/26/24 00:00 07/26/24 04:00 07/26/24 05:56 Temperature 97.8 F Pulse Rate 84 68 86 Respiratory Rate 18 Blood Pressure 134/64 Pulse Oximetry 95 Oxygen Delivery 07/26/24 08:00 07/26/24 08:00 Temperature Pulse Rate 86 86 Respiratory Rate 18 Blood Pressure Pulse Oximetry 95 Oxygen Delivery Room Air Intake/Output Intake/Output: Intake & Output 07/23/24 07/24/24 07/25/24 07/26/24 23:59 23:59 23:59 23:59 Intake Total 243 987 8141 1037 Output Total 800 235 220 Balance -863 957 8344 1037 Meds/Results Medications: Active Medications Generic Name Dose Route Start Last Admin Trade Name Freq PRN Reason Stop Dose Admin Acetaminophen 1,000 mg 07/22/24 08:52 07/25/24 08:56 Acetaminophen 500 Mg Tablet PO 1,000 mg Q6H PRN Administration Mild Pain (1-3) or Fever Amitriptyline HCl 20 mg 07/21/24 21:15 07/25/24 21:01 Amitriptyline Hcl 10 Mg Tablet PO 20 mg QHS MELISSA Administration Atorvastatin Calcium 40 mg 07/21/24 21:15 07/25/24 21:01 Atorvastatin 40 Mg Tablet PO 40 mg QHS MELISSA Administration Cyanocobalamin 500 mcg 07/22/24 09:00 07/26/24 08:56 Cyanocobalamin 500 Mcg Tablet PO 500 mcg QAM MELISSA Administration Cyanocobalamin 2,000 mcg 07/22/24 09:00 07/26/24 08:56 Cyanocobalamin 1,000 Mcg Tablet PO 2,000 mcg QAM MELISSA Administration Enoxaparin Sodium 40 mg 07/23/24 16:10 07/26/24 08:56 Enoxaparin 40 Mg/0.4 Ml Syringe SUB-Q 40 mg DAILY MELISSA Administration Gabapentin 200 mg 07/22/24 09:00 07/26/24 08:56 Gabapentin 100 Mg Capsule PO 200 mg BID MELISSA Administration Piperacillin/Tazobactam/Dextrose 3.375 gm in 50 mls @ 100 mls/hr 07/21/24 23:00 07/26/24 06:00 Zosyn 3.375 Gm/Ns 50 Ml IVPB Infused Q6HR MELISSA Infusion Ketorolac Tromethamine 15 mg 07/25/24 13:23 07/26/24 05:30 Ketorolac 15 Mg/Ml Vial (*Bkc) IV PUSH 15 mg Q6H PRN Administration Pain Rated 4-6 Levothyroxine Sodium 25 mcg 07/22/24 06:30 07/26/24 05:30 Levothyroxine Sodium 25 Mcg Tablet PO 25 mcg DAILY@0630 MELISSA Administration Metoprolol Succinate 50 mg 07/24/24 09:00 07/26/24 08:56 Metoprolol Succinate Ext Rel 50 Mg Tabcr PO 50 mg QAM [facility] Administration Ondansetron HCl 4 mg 07/22/24 08:52 Ondansetron Inj 4 Mg/2 Ml Vial IV PUSH Q6H PRN Nausea And Vomiting Pantoprazole Sodium 40 mg 07/22/24 09:00 07/26/24 08:56 Pantoprazole 40 Mg Tablet PO 40 mg QAM MELISSA Administration Tamsulosin HCl 0.4 mg 07/22/24 09:00 07/26/24 08:56 Tamsulosin Hcl 0.4 Mg Capsule PO 0.4 mg DAILY MELISSA Administration Radiology Results: ITS Impressions Abdomen/Pelvis CT 07/22/24 08:52 Impression: Percutaneous cholecystostomy tube in place with distended irregular gallbladder with marked irregular wall thickening and pericholecystic infarct or change, compatible with acute cholecystitis. Fluid-filled tract communicating with the gallbladder lumen at the superior aspect, which represents a tract related to prior cholecystostomy tube placement, with extension into the anterior abdominal wall. Additional suspected area of contained perforation at the inferior aspect of the gallbladder, which is new from prior exam. Acute L1 compression fracture, new from prior exam. Worsening T12 compression fracture as compared to prior exam with progressive loss of height. Cholecystostomy 07/23/24 14:08 IMPRESSION: 1. Successful upsizing to 12 [place] of a right upper quadrant percutaneous cholecystostomy tube. 2. Patent cystic and common bile ducts. Labs Labs: Laboratory Results - last 24 hr 07/26/24 05:26 WBC 4.4 L RBC 3.27 L Hgb 9.2 L Hct 31.2 L MCV 95.4 MCH 28.1 MCHC 29.5 L RDW 14.8 H Plt Count 276 MPV 10.1 Immature Gran % (Auto) 0.5 Neut % (Auto) 38.2 L Lymph % (Auto) 42.8 [place] % (Auto) 8.4 Eos % (Auto) 9.6 H Baso % (Auto) 0.5 Lymph # (Auto) 1.88 [place] # (Auto) 0.4 Eos # (Auto) 0.4 H Baso # (Auto) 0.0 Abs Immat Gran (auto) 0.02 Absolute Neuts (auto) 1.7 Absolute Nucleated RBC 0.000 Nucleated RBC % 0.0 Sodium 139 Potassium 4.0 Chloride 104 Carbon Dioxide 32 H Anion Gap 3 L BUN 20 H Creatinine 0.58 L Estim Creat Clear Calc 49 Estimated GFR > 60 Glucose 102 Calcium 8.6 Magnesium 1.6 Total Bilirubin 0.2 AST 30 ALT 19 Alkaline Phosphatase 117 Total Protein 6.0 L Albumin 2.6 L Quality VTE Prophylaxis VTE prophylaxis: mechanical ordered and pharmacologic ordered
[2024-07-26] MEDS: AMITRIPTYLINE HCL 10 MG TABLET 20 MG PO (21:07)
[2024-07-26] MEDS: ATORVASTATIN 40 MG TABLET PO (21:07)
[2024-07-27] VITALS (8 sets, daily range): BP systolic 111–138; BP diastolic 61–69; PULSE 78–100; RESP 16–20; TEMP 35.8–37.2; O2SAT 95–100
[2024-07-27] MEDS: PIPERACILLN/TAZ 3.375GM/NS50ML 3.375 GM/50 ML BAG IVPB ×5 (06:05→23:36)
[2024-07-27] MEDS: KETOROLAC 15 MG/ML VIAL (*BKC) IV PUSH ×2 (06:06→20:47)
[2024-07-27] MEDS: LEVOTHYROXINE SODIUM 25 MCG TABLET PO (06:06)
[2024-07-27 06:26] LABS: Basophils Percent Auto 0.4 % (0.2-1.2); Eosinophils Absolute Auto 0.5 K/mm3 (0-0.3); Eosinophils Percent Auto 9.7 % (0-4.4); Hemoglobin 9.1 g/dL (12.0-15.0); Immature Granulocyte Absolute 0.04 K/mm3 (0.00-0.031); Immature Granulocyte Percent A 0.7 % (0-0.5); Lymphocytes Absolute Auto 2.02 K/mm3 (0.9-3.2); Lymphocytes Percent Auto 36.5 % (18.3-44.2); Mean Corpuscular HGB Conc 29.4 g/dl (32-36); Mean Corpuscular Hemoglobin 28.3 pg (26-34); Mean Corpuscular Volume 96.6 fl (80-100); Mean Platelet Volume 10.1 fl (7.4-10.4); Monocytes Absolute Auto 0.5 K/mm3 (0.1-0.6); Monocytes Percent Auto 8.5 % (2.6-8.5); Neutrophils Absolute Auto 2.5 K/mm3 (1.3-6.7); Neutrophils Percent Auto 44.2 % (45.5-73.1); Platelet Count Result 279 k/mm3 (150-375); Red Blood Count 3.21 M/mm3 (4.2-5.4); Red Cell Distribution Width 14.9 % (11.5-14.5); White Blood Count 5.5 K/mm3 (4.5-10.0)
[2024-07-27 06:40] LABS: Alanine Aminotransferase 22 U/L (6-35); Albumin Level 2.7 g/dL (3.5-5.1); Alkaline Phosphatase 116 U/L (38-126); Anion Gap 5 mmol/L (4-12); Aspartate Amino Transferase 37 U/L (14-36); Bilirubin,Total < 0.1 mg/dL (0.2-1.3); Blood Urea Nitrogen 20 mg/dL (7-17); Calcium 8.6 mg/dL (8.4-10.2); Carbon Dioxide 29 mmol/L (22-30); Chloride 104 mmol/L (98-107); Estimated CRCL calculation 53 ml/min; Estimated Glomerular Filt Rate > 60; Glucose 99 mg/dL (65-110); Magnesium 1.9 mg/dL (1.6-2.3); Potassium 4.3 mmol/L (3.4-5.0); Sodium 138 mmol/L (137-145)
[2024-07-27] MEDS: ACETAMINOPHEN 500 MG TABLET 1000 MG PO (09:46)
[2024-07-27] MEDS: GABAPENTIN 100 MG CAPSULE 200 MG PO ×2 (09:47→17:18)
[2024-07-27] MEDS: ONDANSETRON INJ 4 MG/2 ML VIAL IV PUSH (09:47)
[2024-07-27] MEDS: PANTOPRAZOLE 40 MG TABLET PO (09:47)
[2024-07-27] MEDS: TAMSULOSIN HCL 0.4 MG CAPSULE PO (09:48)
[2024-07-27] MEDS: CYANOCOBALAMIN 500 MCG TABLET PO (09:48)
[2024-07-27] MEDS: CYANOCOBALAMIN 1,000 MCG TABLET 2000 MCG PO (09:48)
[2024-07-27] MEDS: METOPROLOL SUCCINATE EXT REL 50 MG TABCR PO (09:48)
[2024-07-27] MEDS: ENOXAPARIN 40 MG/0.4 ML SYRINGE SUB-Q (09:48)
--- NOTE | 2024-07-27 11:20 | PCNFU ---
Nutrition Follow-Up Complete: Severe protein calorie malnutrition related chronic taste changes, poor appetite, nausea as evidenced by intakes <75% needs >1 month; weight loss -15%/3 months; moderate fat loss, severe muscle wasting Improve PO intake >50% meals and supplements- Slow progress to goal, intakes 20-75% with mostly 50% Goal: Pt current nutrition is Heart healthy diet, Ensure Enlive BID (350 kcal, 20 g protein) and nutritional ice cream BID (270 kcal, 9 g protein). Nutrition recommendation: No new recommendations Last recorded weight i s 67.4 kg. Bowel Motility: +1 BM 07/27/24 Labs Reviewed: Hgb 9.1, Hct 31, Alb .7, BUN 20, Cre 0.53 Meds Noted: Protonix, zofran, B12 Skin: No skin issues Additional Notes: Appetite is better today per notes. Making progress to nutrition goals. COntinue current nutrition care plan and orders. Agree with orders Monitoring intakes, weights, labs, supplement tolerance, plan of care Follow up in 5 days
--- NOTE | 2024-07-27 11:31 | P.PNIM_ITS ---
Progress Note: A&P Assessment and Plan (1) Essential hypertension: Code(s): I10 - Essential (primary) hypertension Status: Acute Assessment and Plan: * Blood pressure 138/69. * Metoprolol Succinate 50 mg PO QAM. (2) Coronary artery disease: Code(s): I25.10 - Atherosclerotic heart disease of [place] coronary artery without angina pectoris Status: Acute Assessment and Plan: * Atorvastatin 40 mg PO QHS. (3) Atrial fibrillation: Qualifiers: Atrial fibrillation type: unspecified Qualified Code(s): I48.91 - Unspecified atrial fibrillation Code(s): I48.91 - Unspecified atrial fibrillation Status: Acute Assessment and Plan: * Currently SR 80. * Metoprolol Succinate 50 mg PO daily. * Lovenox 40 mg subq daily. * Telemetry. (4) Hypothyroidism: Code(s): E03.9 - Hypothyroidism, unspecified Status: Acute Assessment and Plan: * Levothyroxine 25 mcg PO daily. (5) Gastroesophageal reflux disease: Code(s): K21.9 - Gastro-esophageal reflux disease without esophagitis Status: Acute Assessment and Plan: * Pantoprazole 40 mg PO QAM. (6) T12 compression fracture: Code(s): S22.080A - Wedge compression fracture of T11-T12 vertebra, initial encounter for closed fracture Status: Acute Assessment and Plan: * Patient is followed by pain management and to have kyphoplasty, patient was supposed to have this week but ended up hospitalized. * TLSO ordered. * PT/OT (7) Severe protein-calorie malnutrition: Code(s): E43 - Unspecified severe protein-calorie malnutrition Status: Acute Assessment and Plan: * Protein 6.0. * Severe protein calorie malnutrition related to taste changes, poor appetite, nausea as evidenced by intakes <75% needs >1 month. Weight loss-15%/3 months: moderate fat loss, severe muscle wasting. * Ensure Enlive TID and Nutritional ice cream TID. * Lead Developer following. (8) Chronic cholecystitis with calculus: Code(s): K80.10 - Calculus of gallbladder with chronic cholecystitis without obstruction Status: Acute Assessment and Plan: * Patient had upsizing the cholecystostomy tube 07/23 in IR. * Zosyn 3.375 gm IVPB q 6. * Surgery following. (9) Hypomagnesemia: Code(s): E83.42 - Hypomagnesemia Status: Acute Assessment and Plan: * Magnesium 1.9 today. * Trend level. (10) Hypokalemia: Code(s): E87.6 - Hypokalemia Status: Acute Assessment and Plan: * Potassium 4.0. * Trend level. Plan This is a pleasant 84-year-old female with a past medical history CAD, arthritis, prediabetes, paroxysmal atrial fibrillation, GERD, hypothyroidism, hyperlipidemia, vitamin B12 and vitamin D deficiency. Surgical history includes history of appendectomy, hysterectomy, and in 05/2024 she was hospitalized for acute cholecystitis and treated with IV antibiotics and percutaneous cholecystostomy tube placement. She was deemed a poor surgical candidate. She was readmitted in 05/2024 with a dislodged cholecystostomy tube and evidence of acute cholecystitis. She was again treated with IV antibiotics and her cholecystostomy tube was replaced. Since then she has been at home and doing relatively well. On 07/20/2024 the daughter noted purulent drainage from the 2 and so she followed up with Dr. Chester on the day of admission 07/21/2024 in the office. Then, admitted to [facility] once again. Patient has had poor appetite. She had 1 episode of vomiting 3 days [employer] ENG[employer]. Denies any abdominal pain or other complaints but voices her frustration with the tube. Of note, the patient had a kyphoplasty planned this week and her Eliquis has been held on Saturday due to burst fracture of T12/T1. She has also lost about 26 lb in the recent months. Hospitalist team has been consulted to help manage multiple medical comorbidities in the setting of anticipated procedure and infection. ----- Subjective Date/time seen: 07/27/24 11:31 Interval history: Patient lying in bed sleeping. Daughter at bedside. Patient set up in chair today. Patient denies chest pain, palpitations, headache, dizziness, nausea, or vomiting. Review of Systems Review of Systems: All systems reviewed & are unremarkable except as noted in HPI and below Exam Const: General: comfortable and no acute distress Resp: Effort & Inspection: normal respiratory effort Auscultation: clear to auscultation bilaterally Cardio: Rate: regular rate Rhythm: regular rhythm Other: Telemetry- SR 80. GI: GI Palp: Yes Soft to palpation Auscultation: normal bowel sounds Other: Cholecystectomy tube. Neuro: Speech: normal speech Extrem: General: no pedal edema Psych: Mental Status: mental status grossly normal Affect: normal affect Objective Data Vital Signs Vital Signs: Vital Signs - 24 hr 07/26/24 12:00 07/26/24 14:55 07/26/24 16:00 Temperature 97.4 F L Pulse Rate 88 100 92 Respiratory Rate 20 Blood Pressure 122/78 Pulse Oximetry 100 Oxygen Delivery 07/26/24 20:00 07/26/24 20:00 07/26/24 21:02 Temperature 97.9 F Pulse Rate 93 86 93 Respiratory Rate 16 16 Blood Pressure 118/59 L Pulse Oximetry 95 95 Oxygen Delivery Room Air 07/27/24 00:00 07/27/24 04:00 07/27/24 05:24 Temperature 98.4 F Pulse Rate 96 88 87 Respiratory Rate 16 Blood Pressure 138/69 Pulse Oximetry 95 Oxygen Delivery 07/27/24 08:00 Temperature Pulse Rate 78 Respiratory Rate Blood Pressure Pulse Oximetry Oxygen Delivery Intake/Output Intake/Output: Intake & Output 07/24/24 07/25/24 07/26/24 07/27/24 23:59 23:59 23:59 23:59 Intake Total 898 1260 1337 300 Output Total 235 220 0 Balance 663 1040 1337 300 Meds/Results Medications: Active Medications Generic Name Dose Route Start Last Admin Trade Name Freq PRN Reason Stop Dose Admin Acetaminophen 1,000 mg 07/22/24 08:52 07/27/24 09:46 Acetaminophen 500 Mg Tablet PO 1,000 mg Q6H PRN Administration Mild Pain (1-3) or Fever Amitriptyline HCl 20 mg 07/21/24 21:15 07/26/24 21:07 Amitriptyline Hcl 10 Mg Tablet PO 20 mg QHS MELISSA Administration Atorvastatin Calcium 40 mg 07/21/24 21:15 07/26/24 21:07 Atorvastatin 40 Mg Tablet PO 40 mg QHS MELISSA Administration Cyanocobalamin 500 mcg 07/22/24 09:00 07/27/24 09:48 Cyanocobalamin 500 Mcg Tablet PO 500 mcg QAM MELISSA Administration Cyanocobalamin 2,000 mcg 07/22/24 09:00 07/27/24 09:48 Cyanocobalamin 1,000 Mcg Tablet PO 2,000 mcg QAM MELISSA Administration Enoxaparin Sodium 40 mg 07/23/24 16:10 07/27/24 09:48 Enoxaparin 40 Mg/0.4 Ml Syringe SUB-Q 40 mg DAILY MELISSA Administration Gabapentin 200 mg 07/22/24 09:00 07/27/24 09:47 Gabapentin 100 Mg Capsule PO 200 mg BID MELISSA Administration Piperacillin/Tazobactam/Dextrose 3.375 gm in 50 mls @ 100 mls/hr 07/21/24 23:00 07/27/24 06:35 Zosyn 3.375 Gm/Ns 50 Ml IVPB Infused Q6HR MELISSA Infusion Ketorolac Tromethamine 15 mg 07/25/24 13:23 07/27/24 06:06 Ketorolac 15 Mg/Ml Vial (*Bkc) IV PUSH 15 mg Q6H PRN Administration Pain Rated 4-6 Levothyroxine Sodium 25 mcg 07/22/24 06:30 07/27/24 06:06 Levothyroxine Sodium 25 Mcg Tablet PO 25 mcg DAILY@0630 MELISSA Administration Metoprolol Succinate 50 mg 07/24/24 09:00 07/27/24 09:48 Metoprolol Succinate Ext Rel 50 Mg Tabcr PO 50 mg QAM MELISSA Administration Ondansetron HCl 4 mg 07/22/24 08:52 07/27/24 09:47 Ondansetron Inj 4 Mg/2 Ml Vial IV PUSH 4 mg Q6H PRN Administration Nausea And Vomiting Pantoprazole Sodium 40 mg 07/22/24 09:00 07/27/24 09:47 Pantoprazole 40 Mg Tablet PO 40 mg QAM MELISSA Administration Tamsulosin HCl 0.4 mg 07/22/24 09:00 07/27/24 09:48 Tamsulosin Hcl 0.4 Mg Capsule PO 0.4 mg DAILY MELISSA Administration Radiology Results: ITS Impressions Abdomen/Pelvis CT 07/22/24 08:52 Impression: Percutaneous cholecystostomy tube in place with distended irregular gallbladder with marked irregular wall thickening and pericholecystic infarct or change, compatible with acute cholecystitis. Fluid-filled tract communicating with the gallbladder lumen at the superior aspect, which represents a tract related to prior cholecystostomy tube placement, with extension into the anterior abdominal wall. Additional suspected area of contained perforation at the inferior aspect of the gallbladder, which is new from prior exam. Acute L1 compression fracture, new from prior exam. Worsening T12 compression fracture as compared to prior exam with progressive loss of height. Cholecystostomy 07/23/24 14:08 IMPRESSION: 1. Successful upsizing to 12 [place] of a right upper quadrant percutaneous cholecystostomy tube. 2. Patent cystic and common bile ducts. Labs Labs: Laboratory Results - last 24 hr 07/27/24 05:40 WBC 5.5 RBC 3.21 L Hgb 9.1 L Hct 31.0 L MCV 96.6 MCH 28.3 MCHC 29.4 L RDW 14.9 H Plt Count 279 MPV 10.1 Immature Gran % (Auto) 0.7 H Neut % (Auto) 44.2 L Lymph % (Auto) 36.5 [place] % (Auto) 8.5 Eos % (Auto) 9.7 H Baso % (Auto) 0.4 Lymph # (Auto) 2.02 [place] # (Auto) 0.5 Eos # (Auto) 0.5 H Baso # (Auto) 0.0 Abs Immat Gran (auto) 0.04 H Absolute Neuts (auto) 2.5 Absolute Nucleated RBC 0.000 Nucleated RBC % 0.0 Sodium 138 Potassium 4.3 Chloride 104 Carbon Dioxide 29 Anion Gap 5 BUN 20 H Creatinine 0.53 L Estim Creat Clear Calc 53 Estimated GFR > 60 Glucose 99 Calcium 8.6 Magnesium 1.9 Total Bilirubin < 0.1 L AST 37 H ALT 22 Alkaline Phosphatase 116 Total Protein 6.0 L Albumin 2.7 L Quality VTE Prophylaxis VTE prophylaxis: mechanical ordered and pharmacologic ordered
--- NOTE | 2024-07-27 11:57 | P.PN_ITS ---
Progress Note: A&P Assessment and Plan (1) Acute cholecystitis: Code(s): K81.0 - Acute cholecystitis Status: Acute Assessment and Plan: Patient remains stable with cholecystostomy tube in place. I have irrigated the cholecystostomy tube and fluid aspirated still looks infected. White blood cell count is normal however. Liver enzymes normal as well. Discussed in detail with the patient and her daughter that continue drainage of pus at the gallbladder wall likely necessitate an operative management of her gallbladder. The risks of the surgery were discussed as well as the alternatives of continuing with a cholecystostomy tube. The patient and daughter are leaning towards proceeding with surgery if that is what is recommended. Will look at the gallbladder tube drainage again tomorrow and make a decision tomorrow if we need to proceed with surgery later this week. Continue IV antibiotics for now. (2) Moderate protein-calorie malnutrition: Code(s): E44.0 - Moderate protein-calorie malnutrition Status: Acute Assessment and Plan: Continue Ensure supplements. Patient's daughter was encouraged to bring anything the patient liked it from home. Subjective Date/time seen: 07/27/24 11:57 Interval history: Patient remains stable. No new complaints. Appetite is fair. Albumin is now 2.7. I advised her daughter to bring her anything that she wants to eat from home. Exam GI: Other: Abdomen is soft and nondistended. Quadrant cholecystostomy tube in place. Drainage is yellowish and thick. After irrigating it particular matter comes out from the cholecystostomy tube and drainage is more bilious appearing. No drainage around the cholecystostomy tube now. Objective Data Vital Signs Vital Signs: Vital Signs - 24 hr 07/26/24 12:00 07/26/24 14:55 07/26/24 16:00 Temperature 36.3 C L Pulse Rate 88 100 92 Respiratory Rate 20 Blood Pressure 122/78 Pulse Oximetry 100 Oxygen Delivery 07/26/24 20:00 07/26/24 20:00 07/26/24 21:02 Temperature 36.6 C Pulse Rate 93 86 93 Respiratory Rate 16 16 Blood Pressure 118/59 L Pulse Oximetry 95 95 Oxygen Delivery Room Air 07/27/24 00:00 07/27/24 04:00 07/27/24 05:24 Temperature 36.9 C Pulse Rate 96 88 87 Respiratory Rate 16 Blood Pressure 138/69 Pulse Oximetry 95 Oxygen Delivery 07/27/24 08:00 Temperature Pulse Rate 78 Respiratory Rate Blood Pressure Pulse Oximetry Oxygen Delivery Intake/Output Intake/Output: Intake & Output 07/24/24 07/25/24 07/26/24 07/27/24 23:59 23:59 23:59 23:59 Intake Total 898 1260 1337 300 Output Total 235 220 0 Balance 663 1040 1337 300 Meds/Results Medications: Active Medications Generic Name Dose Route Start Last Admin Trade Name Freq PRN Reason Stop Dose Admin Acetaminophen 1,000 mg 07/22/24 08:52 07/27/24 09:46 Acetaminophen 500 Mg Tablet PO 1,000 mg Q6H PRN Administration Mild Pain (1-3) or Fever Amitriptyline HCl 20 mg 07/21/24 21:15 07/26/24 21:07 Amitriptyline Hcl 10 Mg Tablet PO 20 mg QHS MELISSA Administration Atorvastatin Calcium 40 mg 07/21/24 21:15 07/26/24 21:07 Atorvastatin 40 Mg Tablet PO 40 mg QHS MELISSA Administration Cyanocobalamin 500 mcg 07/22/24 09:00 07/27/24 09:48 Cyanocobalamin 500 Mcg Tablet PO 500 mcg QAM MELISSA Administration Cyanocobalamin 2,000 mcg 07/22/24 09:00 07/27/24 09:48 Cyanocobalamin 1,000 Mcg Tablet PO 2,000 mcg QAM MELISSA Administration Enoxaparin Sodium 40 mg 07/23/24 16:10 07/27/24 09:48 Enoxaparin 40 Mg/0.4 Ml Syringe SUB-Q 40 mg DAILY MELISSA Administration Gabapentin 200 mg 07/22/24 09:00 07/27/24 09:47 Gabapentin 100 Mg Capsule PO 200 mg BID MELISSA Administration Piperacillin/Tazobactam/Dextrose 3.375 gm in 50 mls @ 100 mls/hr 07/21/24 23:00 07/27/24 06:35 Zosyn 3.375 Gm/Ns 50 Ml IVPB Infused Q6HR MELISSA Infusion Ketorolac Tromethamine 15 mg 07/25/24 13:23 07/27/24 06:06 Ketorolac 15 Mg/Ml Vial (*Bkc) IV PUSH 15 mg Q6H PRN Administration Pain Rated 4-6 Levothyroxine Sodium 25 mcg 07/22/24 06:30 07/27/24 06:06 Levothyroxine Sodium 25 Mcg Tablet PO 25 mcg DAILY@0630 MELISSA Administration Metoprolol Succinate 50 mg 07/24/24 09:00 07/27/24 09:48 Metoprolol Succinate Ext Rel 50 Mg Tabcr PO 50 mg QAM MELISSA Administration Ondansetron HCl 4 mg 07/22/24 08:52 07/27/24 09:47 Ondansetron Inj 4 Mg/2 Ml Vial IV PUSH 4 mg Q6H PRN Administration Nausea And Vomiting Pantoprazole Sodium 40 mg 07/22/24 09:00 07/27/24 09:47 Pantoprazole 40 Mg Tablet PO 40 mg QAM MELISSA Administration Tamsulosin HCl 0.4 mg 07/22/24 09:00 07/27/24 09:48 Tamsulosin Hcl 0.4 Mg Capsule PO 0.4 mg DAILY MELISSA Administration Radiology Results: ITS Impressions Abdomen/Pelvis CT 07/22/24 08:52 Impression: Percutaneous cholecystostomy tube in place with distended irregular gallbladder with marked irregular wall thickening and pericholecystic infarct or change, compatible with acute cholecystitis. Fluid-filled tract communicating with the gallbladder lumen at the superior aspect, which represents a tract related to prior cholecystostomy tube placement, with extension into the anterior abdominal wall. Additional suspected area of contained perforation at the inferior aspect of the gallbladder, which is new from prior exam. Acute L1 compression fracture, new from prior exam. Worsening T12 compression fracture as compared to prior exam with progressive loss of height. Cholecystostomy 07/23/24 14:08 IMPRESSION: 1. Successful upsizing to 12 [place] of a right upper quadrant percutaneous cholecystostomy tube. 2. Patent cystic and common bile ducts. Labs Labs: Laboratory Results - last 24 hr 07/27/24 05:40 WBC 5.5 RBC 3.21 L Hgb 9.1 L Hct 31.0 L MCV 96.6 MCH 28.3 MCHC 29.4 L RDW 14.9 H Plt Count 279 MPV 10.1 Immature Gran % (Auto) 0.7 H Neut % (Auto) 44.2 L Lymph % (Auto) 36.5 [place] % (Auto) 8.5 Eos % (Auto) 9.7 H Baso % (Auto) 0.4 Lymph # (Auto) 2.02 [place] # (Auto) 0.5 Eos # (Auto) 0.5 H Baso # (Auto) 0.0 Abs Immat Gran (auto) 0.04 H Absolute Neuts (auto) 2.5 Absolute Nucleated RBC 0.000 Nucleated RBC % 0.0 Sodium 138 Potassium 4.3 Chloride 104 Carbon Dioxide 29 Anion Gap 5 BUN 20 H Creatinine 0.53 L Estim Creat Clear Calc 53 Estimated GFR > 60 Glucose 99 Calcium 8.6 Magnesium 1.9 Total Bilirubin < 0.1 L AST 37 H ALT 22 Alkaline Phosphatase 116 Total Protein 6.0 L Albumin 2.7 L
[2024-07-27] MEDS: AMITRIPTYLINE HCL 10 MG TABLET 20 MG PO (20:47)
[2024-07-27] MEDS: ATORVASTATIN 40 MG TABLET PO (20:47)
[2024-07-28] VITALS (9 sets, daily range): BP systolic 116–137; BP diastolic 50–65; PULSE 78–85; RESP 18–20; TEMP 35.8–36.6; O2SAT 92–100
[2024-07-28] MEDS: KETOROLAC 15 MG/ML VIAL (*BKC) IV PUSH (06:17)
[2024-07-28] MEDS: LEVOTHYROXINE SODIUM 25 MCG TABLET PO (06:17)
[2024-07-28] MEDS: PIPERACILLN/TAZ 3.375GM/NS50ML 3.375 GM/50 ML BAG IVPB ×4 (06:18→22:53)
[2024-07-28 06:33] LABS: Basophils Percent Auto 0.3 % (0.2-1.2); Eosinophils Absolute Auto 0.6 K/mm3 (0-0.3); Eosinophils Percent Auto 8.5 % (0-4.4); Hematocrit 30.6 % (37.0-47.0); Hemoglobin 8.9 g/dL (12.0-15.0); Immature Granulocyte Absolute 0.05 K/mm3 (0.00-0.031); Immature Granulocyte Percent A 0.8 % (0-0.5); Lymphocytes Absolute Auto 2.37 K/mm3 (0.9-3.2); Lymphocytes Percent Auto 35.9 % (18.3-44.2); Mean Corpuscular HGB Conc 29.1 g/dl (32-36); Mean Corpuscular Hemoglobin 28.2 pg (26-34); Mean Corpuscular Volume 96.8 fl (80-100); Mean Platelet Volume 10.1 fl (7.4-10.4); Monocytes Absolute Auto 0.5 K/mm3 (0.1-0.6); Monocytes Percent Auto 8.2 % (2.6-8.5); Neutrophils Absolute Auto 3.1 K/mm3 (1.3-6.7); Neutrophils Percent Auto 46.3 % (45.5-73.1); Platelet Count Result 272 k/mm3 (150-375); Red Blood Count 3.16 M/mm3 (4.2-5.4); Red Cell Distribution Width 14.9 % (11.5-14.5); White Blood Count 6.6 K/mm3 (4.5-10.0)
[2024-07-28 06:45] LABS: Alanine Aminotransferase 25 U/L (6-35); Albumin Level 2.9 g/dL (3.5-5.1); Alkaline Phosphatase 122 U/L (38-126); Anion Gap 6 mmol/L (4-12); Aspartate Amino Transferase 40 U/L (14-36); Bilirubin,Total 0.2 mg/dL (0.2-1.3); Blood Urea Nitrogen 19 mg/dL (7-17); Calcium 8.8 mg/dL (8.4-10.2); Carbon Dioxide 29 mmol/L (22-30); Chloride 103 mmol/L (98-107); Estimated CRCL calculation 54 ml/min; Estimated Glomerular Filt Rate > 60; Glucose 96 mg/dL (65-110); Magnesium 1.8 mg/dL (1.6-2.3); Potassium 4.3 mmol/L (3.4-5.0); Sodium 138 mmol/L (137-145)
[2024-07-28 07:01] LABS: Band Neutrophils Percent 0 % (0-6); Hypochromasia 1+; Platelet Estimate Adequate (Adequate)
[2024-07-28 07:02] LABS: Anisocytosis 1+; Schistocytes None Seen
[2024-07-28] MEDS: GABAPENTIN 100 MG CAPSULE 200 MG PO ×2 (08:20→18:02)
[2024-07-28] MEDS: CYANOCOBALAMIN 1,000 MCG TABLET 2000 MCG PO (08:20)
[2024-07-28] MEDS: CYANOCOBALAMIN 500 MCG TABLET PO (08:20)
[2024-07-28] MEDS: TAMSULOSIN HCL 0.4 MG CAPSULE PO (08:20)
[2024-07-28] MEDS: METOPROLOL SUCCINATE EXT REL 50 MG TABCR PO (08:20)
[2024-07-28] MEDS: PANTOPRAZOLE 40 MG TABLET PO (08:20)
[2024-07-28] MEDS: ENOXAPARIN 40 MG/0.4 ML SYRINGE SUB-Q (08:28)
--- NOTE | 2024-07-28 12:28 | P.PNIM_ITS ---
Progress Note: A&P Assessment and Plan (1) Essential hypertension: Code(s): I10 - Essential (primary) hypertension Status: Acute Assessment and Plan: * Blood pressure 137/61. * Metoprolol Succinate 50 mg PO QAM. (2) Coronary artery disease: Code(s): I25.10 - Atherosclerotic heart disease of [place] coronary artery without angina pectoris Status: Acute Assessment and Plan: * Atorvastatin 40 mg PO QHS. (3) Atrial fibrillation: Qualifiers: Atrial fibrillation type: unspecified Qualified Code(s): I48.91 - Unspecified atrial fibrillation Code(s): I48.91 - Unspecified atrial fibrillation Status: Acute Assessment and Plan: * Currently SR 88. * Metoprolol Succinate 50 mg PO daily. * Lovenox 40 mg subq daily. * Telemetry. (4) Hypothyroidism: Code(s): E03.9 - Hypothyroidism, unspecified Status: Acute Assessment and Plan: * Levothyroxine 25 mcg PO daily. (5) Gastroesophageal reflux disease: Code(s): K21.9 - Gastro-esophageal reflux disease without esophagitis Status: Acute Assessment and Plan: * Pantoprazole 40 mg PO QAM. (6) T12 compression fracture: Code(s): S22.080A - Wedge compression fracture of T11-T12 vertebra, initial encounter for closed fracture Status: Acute Assessment and Plan: * Patient is followed by pain management and to have kyphoplasty, patient was supposed to have this week but ended up hospitalized. * TLSO ordered. * PT/OT (7) Severe protein-calorie malnutrition: Code(s): E43 - Unspecified severe protein-calorie malnutrition Status: Acute Assessment and Plan: * Protein 6.0. * Severe protein calorie malnutrition related to taste changes, poor appetite, nausea as evidenced by intakes <75% needs >1 month. Weight loss-15%/3 months: moderate fat loss, severe muscle wasting. * Ensure Enlive TID and Nutritional ice cream TID. * Criminal Attorney following. (8) Chronic cholecystitis with calculus: Code(s): K80.10 - Calculus of gallbladder with chronic cholecystitis without obstruction Status: Acute Assessment and Plan: * Patient had upsizing the cholecystostomy tube 07/23 in IR. * Zosyn 3.375 gm IVPB q 6. * Surgery following. * Patient and daughter would like proceed with surgery. It will be either robotic-assisted laparoscopic cholecystectomy, possible open, by Dr. Chester. (9) Hypomagnesemia: Code(s): E83.42 - Hypomagnesemia Status: Acute Assessment and Plan: * Magnesium 1.8 today. * Trend level. (10) Hypokalemia: Code(s): E87.6 - Hypokalemia Status: Acute Assessment and Plan: * Potassium 4.3. * Trend level. Plan This is a pleasant 84-year-old female with a past medical history CAD, arthritis, prediabetes, paroxysmal atrial fibrillation, GERD, hypothyroidism, hyperlipidemia, vitamin B12 and vitamin D deficiency. Surgical history includes history of appendectomy, hysterectomy, and in 05/2024 she was hospitalized for acute cholecystitis and treated with IV antibiotics and percutaneous cholecystostomy tube placement. She was deemed a poor surgical candidate. She was readmitted in 05/2024 with a dislodged cholecystostomy tube and evidence of acute cholecystitis. She was again treated with IV antibiotics and her cholecystostomy tube was replaced. Since then she has been at home and doing relatively well. On 07/20/2024 the daughter noted purulent drainage from the 2 and so she followed up with Dr. Chester on the day of admission 07/21/2024 in the office. Then, admitted to [facility] once again. Patient has had poor appetite. She had 1 episode of vomiting 3 days [facility] Denies any abdominal pain or other complaints but voices her frustration with the tube. Of note, the patient had a kyphoplasty planned this week and her Eliquis has been held on Saturday due to burst fracture of T12/T1. She has also lost about 26 lb in the recent months. Hospitalist team has been consulted to help manage multiple medical comorbidities in the setting of anticipated procedure and infection. ----- Subjective Date/time seen: 07/28/24 12:28 Interval history: Patient sitting up in chair. Daughter at bedside. Patient denies chest pain, palpitations, headache, dizziness, nausea, or vomiting. Review of Systems Review of Systems: All systems reviewed & are unremarkable except as noted in HPI and below Exam Const: General: comfortable and no acute distress Resp: Effort & Inspection: normal respiratory effort Auscultation: clear to auscultation bilaterally Cardio: Rate: regular rate Rhythm: regular rhythm Other: Telemetry- SR 88. GI: GI Palp: Yes Soft to palpation Auscultation: normal bowel sounds Neuro: Speech: normal speech Extrem: General: no pedal edema Psych: Mental Status: mental status grossly normal Affect: normal affect Objective Data Vital Signs Vital Signs: Vital Signs - 24 hr 07/27/24 14:00 07/27/24 16:00 07/27/24 20:00 Temperature 98.9 F Pulse Rate 83 78 84 Respiratory Rate 16 20 Blood Pressure 111/63 Pulse Oximetry 100 98 Oxygen Delivery Room Air 07/27/24 20:00 07/27/24 20:20 07/28/24 00:00 Temperature 96.5 F L Pulse Rate 100 84 85 Respiratory Rate 20 Blood Pressure 138/61 Pulse Oximetry 98 Oxygen Delivery 07/28/24 04:00 07/28/24 04:30 Temperature 96.4 F L Pulse Rate 78 80 Respiratory Rate 20 Blood Pressure 137/61 Pulse Oximetry 92 Oxygen Delivery Intake/Output Intake/Output: Intake & Output 07/25/24 07/26/24 07/27/24 07/28/24 23:59 23:59 23:59 23:59 Intake Total 1260 1337 980 587 Output Total 220 0 445 Balance 1040 1337 535 587 Meds/Results Medications: Active Medications Generic Name Dose Route Start Last Admin Trade Name Freq PRN Reason Stop Dose Admin Acetaminophen 1,000 mg 07/22/24 08:52 07/27/24 09:46 Acetaminophen 500 Mg Tablet PO 1,000 mg Q6H PRN Administration Mild Pain (1-3) or Fever Amitriptyline HCl 20 mg 07/21/24 21:15 07/27/24 20:47 Amitriptyline Hcl 10 Mg Tablet PO 20 mg QHS MELISSA Administration Atorvastatin Calcium 40 mg 07/21/24 21:15 07/27/24 20:47 Atorvastatin 40 Mg Tablet PO 40 mg QHS MELISSA Administration Cyanocobalamin 500 mcg 07/22/24 09:00 07/28/24 08:20 Cyanocobalamin 500 Mcg Tablet PO 500 mcg QAM MELISSA Administration Cyanocobalamin 2,000 mcg 07/22/24 09:00 07/28/24 08:20 Cyanocobalamin 1,000 Mcg Tablet PO 2,000 mcg QAM MELISSA Administration Enoxaparin Sodium 40 mg 07/23/24 16:10 07/28/24 08:28 Enoxaparin 40 Mg/0.4 Ml Syringe SUB-Q 40 mg DAILY MELISSA Administration Gabapentin 200 mg 07/22/24 09:00 07/28/24 08:20 Gabapentin 100 Mg Capsule PO 200 mg BID MELISSA Administration Piperacillin/Tazobactam/Dextrose 3.375 gm in 50 mls @ 100 mls/hr 07/21/24 23:00 07/28/24 06:48 Zosyn 3.375 Gm/Ns 50 Ml IVPB Infused Q6HR MELISSA Infusion Ketorolac Tromethamine 15 mg 07/25/24 13:23 07/28/24 06:17 Ketorolac 15 Mg/Ml Vial (*[facility]) IV PUSH 15 mg Q6H PRN Administration Pain Rated 4-6 Levothyroxine Sodium 25 mcg 07/22/24 06:30 07/28/24 06:17 Levothyroxine Sodium 25 Mcg Tablet PO 25 mcg DAILY@0630 MELISSA Administration Metoprolol Succinate 50 mg 07/24/24 09:00 07/28/24 08:20 Metoprolol Succinate Ext Rel 50 Mg Tabcr PO 50 mg QAM MELISSA Administration Ondansetron HCl 4 mg 07/22/24 08:52 07/27/24 09:47 Ondansetron Inj 4 Mg/2 Ml Vial IV PUSH 4 mg Q6H PRN Administration Nausea And Vomiting Pantoprazole Sodium 40 mg 07/22/24 09:00 07/28/24 08:20 Pantoprazole 40 Mg Tablet PO 40 mg QAM MELISSA Administration Tamsulosin HCl 0.4 mg 07/22/24 09:00 07/28/24 08:20 Tamsulosin Hcl 0.4 Mg Capsule PO 0.4 mg DAILY MELISSA Administration Radiology Results: ITS Impressions Abdomen/Pelvis CT 07/22/24 08:52 Impression: Percutaneous cholecystostomy tube in place with distended irregular gallbladder with marked irregular wall thickening and pericholecystic infarct or change, compatible with acute cholecystitis. Fluid-filled tract communicating with the gallbladder lumen at the superior aspect, which represents a tract related to prior cholecystostomy tube placement, with extension into the anterior abdominal wall. Additional suspected area of contained perforation at the inferior aspect of the gallbladder, which is new from prior exam. Acute L1 compression fracture, new from prior exam. Worsening T12 compression fracture as compared to prior exam with progressive loss of height. Cholecystostomy 07/23/24 14:08 IMPRESSION: 1. Successful upsizing to 12 [place] of a right upper quadrant percutaneous cholecystostomy tube. 2. Patent cystic and common bile ducts. Labs Labs: Laboratory Results - last 24 hr 07/28/24 05:30 WBC 6.6 RBC 3.16 L Hgb 8.9 L Hct 30.6 L MCV 96.8 MCH 28.2 MCHC 29.1 L RDW 14.9 H Plt Count 272 MPV 10.1 Immature Gran % (Auto) 0.8 H Neut % (Auto) 46.3 Lymph % (Auto) 35.9 [place] % (Auto) 8.2 Eos % (Auto) 8.5 H Baso % (Auto) 0.3 Lymph # (Auto) 2.37 [place] # (Auto) 0.5 Eos # (Auto) 0.6 H Baso # (Auto) 0.0 Abs Immat Gran (auto) 0.05 H Absolute Neuts (auto) 3.1 Absolute Nucleated RBC 0.000 Band Neutrophils % 0 Nucleated RBC % 0.0 Platelet Estimate Adequate Hypochromasia 1+ Anisocytosis 1+ Schistocytes None seen Sodium 138 Potassium 4.3 Chloride 103 Carbon Dioxide 29 Anion Gap 6 BUN 19 H Creatinine 0.52 L Estim Creat Clear Calc 54 Estimated GFR > 60 Glucose 96 Calcium 8.8 Magnesium 1.8 Total Bilirubin 0.2 AST 40 H ALT 25 Alkaline Phosphatase 122 Total Protein 6.0 L Albumin 2.9 L Quality VTE Prophylaxis VTE prophylaxis: mechanical ordered and pharmacologic ordered
--- NOTE | 2024-07-28 14:21 | PM.PNGS ---
Progress Note: A&P Assessment and Plan (1) Acute cholecystitis: Code(s): K81.0 - Acute cholecystitis Status: Acute Assessment and Plan: Patient remains stable with cholecystostomy tube in place. The cholecystostomy tube was irrigated again today, but continues to have purulent appearing fluid draining through the tube. Given the persistent purulent drainage coming from the cholecystostomy tube, it is likely that she will ultimately require surgical management. We have again discussed in detail the options of waiting and monitoring with flushes versus proceeding with a robotic-assisted laparoscopic cholecystectomy, possible open, by Dr. Chester. They wish to proceed with surgery as it looks like this will eventually be needed to prevent her from having recurrent issues with her cholecystitis. We will continue her diet today with Ensure supplements and she has been added onto the surgery schedule for . Continue IV antibiotics for now. (2) Moderate protein-calorie malnutrition: Code(s): E44.0 - Moderate protein-calorie malnutrition Status: Acute Assessment and Plan: Continue Ensure supplements. Patient's daughter was encouraged to bring anything the patient liked it from home. Plan I have discussed the patient's case and plan of care with Dr. Chester. Subjective Subjective Date/Time Seen: 07/28/24 14:21 Patient reports: no new complaints and afebrile Interval history: No acute changes overnight. Appetite is fair. Her only complaint remains her back pain from her fractures. Exam Const: General: comfortable and no acute distress Orientation/consciousness: patient oriented x3 GI: Other: Abdomen is soft and nondistended. RUQ cholecystostomy tube in place with [place] yellow drainage that is slightly less thick than it was on my previous assessment. The drain was irrigated with normal saline today and had some more bilious appearing drainage, but continued to have sediment and particulate matter being aspirated. Scant [place] drainage around the cholecystostomy tube when dressing was changed today. Objective Data Vital Signs Vital Signs: Vital Signs - 24 hr 07/27/24 16:00 07/27/24 20:00 07/27/24 20:00 Temperature Pulse Rate 78 84 100 Respiratory Rate 20 Blood Pressure Pulse Oximetry 98 Oxygen Delivery Room Air 07/27/24 20:20 07/28/24 00:00 07/28/24 04:00 Temperature 96.5 F L Pulse Rate 84 85 78 Respiratory Rate 20 Blood Pressure 138/61 Pulse Oximetry 98 Oxygen Delivery 07/28/24 04:30 Temperature 96.4 F L Pulse Rate 80 Respiratory Rate 20 Blood Pressure 137/61 Pulse Oximetry 92 Oxygen Delivery Intake/Output Intake/Output: Intake & Output 07/25/24 07/26/24 07/27/24 07/28/24 23:59 23:59 23:59 23:59 Intake Total 1260 1337 980 587 Output Total 220 0 445 Balance 1040 1337 535 587 Meds/Results Medications: Active Medications Generic Name Dose Route Start Last Admin Trade Name Freq PRN Reason Stop Dose Admin Acetaminophen 1,000 mg 07/22/24 08:52 07/27/24 09:46 Acetaminophen 500 Mg Tablet PO 1,000 mg Q6H PRN Administration Mild Pain (1-3) or Fever Amitriptyline HCl 20 mg 07/21/24 21:15 07/27/24 20:47 Amitriptyline Hcl 10 Mg Tablet PO 20 mg QHS MELISSA Administration Atorvastatin Calcium 40 mg 07/21/24 21:15 07/27/24 20:47 Atorvastatin 40 Mg Tablet PO 40 mg QHS MELISSA Administration Cyanocobalamin 500 mcg 07/22/24 09:00 07/28/24 08:20 Cyanocobalamin 500 Mcg Tablet PO 500 mcg QAM MELISSA Administration Cyanocobalamin 2,000 mcg 07/22/24 09:00 07/28/24 08:20 Cyanocobalamin 1,000 Mcg Tablet PO 2,000 mcg QAM MELISSA Administration Enoxaparin Sodium 40 mg 07/23/24 16:10 07/28/24 08:28 Enoxaparin 40 Mg/0.4 Ml Syringe SUB-Q 40 mg DAILY MELISSA Administration Gabapentin 200 mg 07/22/24 09:00 07/28/24 08:20 Gabapentin 100 Mg Capsule PO 200 mg BID MELISSA Administration Piperacillin/Tazobactam/Dextrose 3.375 gm in 50 mls @ 100 mls/hr 07/21/24 23:00 07/28/24 06:48 Zosyn 3.375 Gm/Ns 50 Ml IVPB Infused Q6HR MELISSA Infusion Ketorolac Tromethamine 15 mg 07/25/24 13:23 07/28/24 06:17 Ketorolac 15 Mg/Ml Vial (*[facility]) IV PUSH 15 mg Q6H PRN Administration Pain Rated 4-6 Levothyroxine Sodium 25 mcg 07/22/24 06:30 07/28/24 06:17 Levothyroxine Sodium 25 Mcg Tablet PO 25 mcg DAILY@0630 MELISSA Administration Metoprolol Succinate 50 mg 07/24/24 09:00 07/28/24 08:20 Metoprolol Succinate Ext Rel 50 Mg Tabcr PO 50 mg QAM MELISSA Administration Ondansetron HCl 4 mg 07/22/24 08:52 07/27/24 09:47 Ondansetron Inj 4 Mg/2 Ml Vial IV PUSH 4 mg Q6H PRN Administration Nausea And Vomiting Pantoprazole Sodium 40 mg 07/22/24 09:00 07/28/24 08:20 Pantoprazole 40 Mg Tablet PO 40 mg QAM MLEISSA Administration Tamsulosin HCl 0.4 mg 07/22/24 09:00 07/28/24 08:20 Tamsulosin Hcl 0.4 Mg Capsule PO 0.4 mg DAILY MELISSA Administration Radiology Results: ITS Impressions Abdomen/Pelvis CT 07/22/24 08:52 Impression: Percutaneous cholecystostomy tube in place with distended irregular gallbladder with marked irregular wall thickening and pericholecystic infarct or change, compatible with acute cholecystitis. Fluid-filled tract communicating with the gallbladder lumen at the superior aspect, which represents a tract related to prior cholecystostomy tube placement, with extension into the anterior abdominal wall. Additional suspected area of contained perforation at the inferior aspect of the gallbladder, which is new from prior exam. Acute L1 compression fracture, new from prior exam. Worsening T12 compression fracture as compared to prior exam with progressive loss of height. Cholecystostomy 07/23/24 14:08 IMPRESSION: 1. Successful upsizing to 12 [place] of a right upper quadrant percutaneous cholecystostomy tube. 2. Patent cystic and common bile ducts. Labs Labs: Laboratory Results - last 24 hr 07/28/24 05:30 WBC 6.6 RBC 3.16 L Hgb 8.9 L Hct 30.6 L MCV 96.8 MCH 28.2 MCHC 29.1 L RDW 14.9 H Plt Count 272 MPV 10.1 Immature Gran % (Auto) 0.8 H Neut % (Auto) 46.3 Lymph % (Auto) 35.9 [place] % (Auto) 8.2 Eos % (Auto) 8.5 H Baso % (Auto) 0.3 Lymph # (Auto) 2.37 [place] # (Auto) 0.5 Eos # (Auto) 0.6 H Baso # (Auto) 0.0 Abs Immat Gran (auto) 0.05 H Absolute Neuts (auto) 3.1 Absolute Nucleated RBC 0.000 Band Neutrophils % 0 Nucleated RBC % 0.0 Platelet Estimate Adequate Hypochromasia 1+ Anisocytosis 1+ Schistocytes None seen Sodium 138 Potassium 4.3 Chloride 103 Carbon Dioxide 29 Anion Gap 6 BUN 19 H Creatinine 0.52 L Estim Creat Clear Calc 54 Estimated GFR > 60 Glucose 96 Calcium 8.8 Magnesium 1.8 Total Bilirubin 0.2 AST 40 H ALT 25 Alkaline Phosphatase 122 Total Protein 6.0 L Albumin 2.9 L
[2024-07-28] MEDS: ACETAMINOPHEN 500 MG TABLET 1000 MG PO (20:02)
[2024-07-28] MEDS: AMITRIPTYLINE HCL 10 MG TABLET 20 MG PO (20:02)
[2024-07-28] MEDS: ATORVASTATIN 40 MG TABLET PO (20:02)
[2024-07-29] VITALS (10 sets, daily range): BP systolic 132–144; BP diastolic 52–66; PULSE 69–94; RESP 16–20; TEMP 35.9–36.2; O2SAT 97–99
[2024-07-29] MEDS: PIPERACILLN/TAZ 3.375GM/NS50ML 3.375 GM/50 ML BAG IVPB ×4 (05:20→23:08)
[2024-07-29] MEDS: LEVOTHYROXINE SODIUM 25 MCG TABLET PO (05:21)
[2024-07-29 06:53] LABS: Basophils Percent Auto 0.5 % (0.2-1.2); Eosinophils Absolute Auto 0.5 K/mm3 (0-0.3); Eosinophils Percent Auto 8.3 % (0-4.4); Hematocrit 30.6 % (37.0-47.0); Hemoglobin 8.8 g/dL (12.0-15.0); Immature Granulocyte Absolute 0.04 K/mm3 (0.00-0.031); Immature Granulocyte Percent A 0.6 % (0-0.5); Lymphocytes Absolute Auto 2.39 K/mm3 (0.9-3.2); Lymphocytes Percent Auto 38.7 % (18.3-44.2); Mean Corpuscular HGB Conc 28.8 g/dl (32-36); Mean Corpuscular Hemoglobin 28.1 pg (26-34); Mean Corpuscular Volume 97.8 fl (80-100); Mean Platelet Volume 10.1 fl (7.4-10.4); Monocytes Absolute Auto 0.6 K/mm3 (0.1-0.6); Monocytes Percent Auto 9.2 % (2.6-8.5); Neutrophils Absolute Auto 2.6 K/mm3 (1.3-6.7); Neutrophils Percent Auto 42.7 % (45.5-73.1); Platelet Count Result 232 k/mm3 (150-375); Red Blood Count 3.13 M/mm3 (4.2-5.4); Red Cell Distribution Width 14.9 % (11.5-14.5); White Blood Count 6.2 K/mm3 (4.5-10.0)
[2024-07-29 07:06] LABS: Alanine Aminotransferase 21 U/L (6-35); Albumin Level 2.7 g/dL (3.5-5.1); Alkaline Phosphatase 121 U/L (38-126); Anion Gap 5 mmol/L (4-12); Aspartate Amino Transferase 34 U/L (14-36); Bilirubin,Total 0.2 mg/dL (0.2-1.3); Blood Urea Nitrogen 15 mg/dL (7-17); Calcium 8.8 mg/dL (8.4-10.2); Carbon Dioxide 30 mmol/L (22-30); Chloride 103 mmol/L (98-107); Estimated CRCL calculation 54 ml/min; Estimated Glomerular Filt Rate > 60; Glucose 99 mg/dL (65-110); Magnesium 1.7 mg/dL (1.6-2.3); Potassium 4.7 mmol/L (3.4-5.0); Sodium 138 mmol/L (137-145)
[2024-07-29 07:42] LABS: Anisocytosis 1+; Hypochromasia 1+; Platelet Estimate Adequate (Adequate); Schistocytes None Seen
--- NOTE | 2024-07-29 08:39 | P.PNIM_ITS ---
Progress Note: A&P Assessment and Plan (1) Essential hypertension: Code(s): I10 - Essential (primary) hypertension Status: Acute Assessment and Plan: * Blood pressure 137/61. * Metoprolol Succinate 50 mg PO QAM. (2) Coronary artery disease: Code(s): I25.10 - Atherosclerotic heart disease of [place] coronary artery without angina pectoris Status: Acute Assessment and Plan: * Atorvastatin 40 mg PO QHS. (3) Atrial fibrillation: Qualifiers: Atrial fibrillation type: unspecified Qualified Code(s): I48.91 - Unspecified atrial fibrillation Code(s): I48.91 - Unspecified atrial fibrillation Status: Acute Assessment and Plan: * Currently SR 88. * Metoprolol Succinate 50 mg PO daily. * Lovenox 40 mg subq daily. * Telemetry. (4) Hypothyroidism: Code(s): E03.9 - Hypothyroidism, unspecified Status: Acute Assessment and Plan: * Levothyroxine 25 mcg PO daily. (5) Gastroesophageal reflux disease: Code(s): K21.9 - Gastro-esophageal reflux disease without esophagitis Status: Acute Assessment and Plan: * Pantoprazole 40 mg PO QAM. (6) T12 compression fracture: Code(s): S22.080A - Wedge compression fracture of T11-T12 vertebra, initial encounter for closed fracture Status: Acute Assessment and Plan: * Patient is followed by pain management and to have kyphoplasty, patient was supposed to have this week but ended up hospitalized. * TLSO ordered. * PT/OT (7) Severe protein-calorie malnutrition: Code(s): E43 - Unspecified severe protein-calorie malnutrition Status: Acute Assessment and Plan: * Protein 6.0. * Severe protein calorie malnutrition related to taste changes, poor appetite, nausea as evidenced by intakes <75% needs >1 month. Weight loss-15%/3 months: moderate fat loss, severe muscle wasting. * Ensure Enlive TID and Nutritional ice cream TID. * Service Center Technician following. (8) Chronic cholecystitis with calculus: Code(s): K80.10 - Calculus of gallbladder with chronic cholecystitis without obstruction Status: Acute Assessment and Plan: * Patient had upsizing the cholecystostomy tube 07/23 in IR. * Zosyn 3.375 gm IVPB q 6. * Surgery following. * Patient and daughter would like proceed with surgery. It will be either robotic-assisted laparoscopic cholecystectomy, possible open, by Dr. Chester. (9) Hypomagnesemia: Code(s): E83.42 - Hypomagnesemia Status: Acute Assessment and Plan: * Magnesium 1.8 today. * Trend level. (10) Hypokalemia: Code(s): E87.6 - Hypokalemia Status: Acute Assessment and Plan: * Potassium 4.3. * Trend level. Plan This is a pleasant 84-year-old female with a past medical history CAD, arthritis, prediabetes, paroxysmal atrial fibrillation, GERD, hypothyroidism, hyperlipidemia, vitamin B12 and vitamin D deficiency. Surgical history includes history of appendectomy, hysterectomy, and in 05/2024 she was hospitalized for acute cholecystitis and treated with IV antibiotics and percutaneous cholecystostomy tube placement. She was deemed a poor surgical candidate. She was readmitted in 05/2024 with a dislodged cholecystostomy tube and evidence of acute cholecystitis. She was again treated with IV antibiotics and her cholecystostomy tube was replaced. Since then she has been at home and doing relatively well. On 07/20/2024 the daughter noted purulent drainage from the 2 and so she followed up with Dr. Chester on the day of admission 07/21/2024 in the office. Then, admitted to [facility] once again. Patient has had poor appetite. 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 Denies any abdominal pain or other complaints but voices her frustration with the tube. Of note, the patient had a kyphoplasty planned this week and her Eliquis has been held on Saturday due to burst fracture of T12/T1. She has also lost about 26 lb in the recent months. Hospitalist team has been consulted to help manage multiple medical comorbidities in the setting of anticipated procedure and infection. ----- Subjective Date/time seen: 07/29/24 08:39 Interval history: Patient sitting up in chair. Daughter at bedside. Patient denies chest pain, palpitations, headache, dizziness, nausea, or vomiting. Exam Narrative: GENERAL: Pleasant, in no acute distress. Well-nourished. - EYES: EOMI. Anicteric. - HENT: Moist mucous membranes. - LUNGS: Clear to auscultation bilateral ly, no wheezing, rhonchi, or rales. - CARDIOVASCULAR: Regular rate and rhyth m. No murmur. No JVD. - ABDOMEN: Soft, non-tender and non-dist ended. No palpable masses. - EXTREMITIES: No edema. Peripheral puls es 2+. Non-tender. - NEUROLOGIC: No focal neurological defi cits. CN II-XII grossly intact. - PSYCHIATRIC: Awake, Alert and oriented x 3. Appropriate mood and affect. - SKIN: No rashes or lesions. Warm. - LYMPH: No cervical lymphadenopathy. Objective Data Vital Signs Vital Signs: Vital Signs - 24 hr 07/28/24 12:00 07/28/24 14:00 07/28/24 16:00 Temperature 98 F Pulse Rate 83 79 80 Respiratory Rate 18 Blood Pressure 116/50 L Pulse Oximetry 100 Oxygen Delivery 07/28/24 20:00 07/28/24 20:00 07/28/24 20:25 Temperature 97.3 F L Pulse Rate 82 85 Respiratory Rate 20 Blood Pressure 135/65 Pulse Oximetry 95 Oxygen Delivery Room Air 07/29/24 00:00 07/29/24 04:00 07/29/24 05:20 Temperature 96.7 F L Pulse Rate 78 69 72 Respiratory Rate 20 Blood Pressure 136/62 Pulse Oximetry 98 Oxygen Delivery Intake/Output Intake/Output: Intake & Output 07/26/24 07/27/24 07/28/24 07/29/24 23:59 23:59 23:59 23:59 Intake Total 7323 511 7822 50 Output Total 0 445 320 Balance 0833 082 4091 -270 Meds/Results Medications: Active Medications Generic Name Dose Route Start Last Admin Trade Name Freq PRN Reason Stop Dose Admin Acetaminophen 1,000 mg 07/22/24 08:52 07/28/24 20:02 Acetaminophen 500 Mg Tablet PO 1,000 mg Q6H PRN Administration Mild Pain (1-3) or Fever Amitriptyline HCl 20 mg 07/21/24 21:15 07/28/24 20:02 Amitriptyline Hcl 10 Mg Tablet PO 20 mg QHS MELISSA Administration Atorvastatin Calcium 40 mg 07/21/24 21:15 07/28/24 20:02 Atorvastatin 40 Mg Tablet PO 40 mg QHS MELISSA Administration Cyanocobalamin 500 mcg 07/22/24 09:00 07/28/24 08:20 Cyanocobalamin 500 Mcg Tablet PO 500 mcg QAM MELISSA Administration Cyanocobalamin 2,000 mcg 07/22/24 09:00 07/28/24 08:20 Cyanocobalamin 1,000 Mcg Tablet PO 2,000 mcg QAM MELISSA Administration Enoxaparin Sodium 40 mg 07/23/24 16:10 07/28/24 08:28 Enoxaparin 40 Mg/0.4 Ml Syringe SUB-Q 40 mg DAILY MELISSA Administration Gabapentin 200 mg 07/22/24 09:00 07/28/24 18:02 Gabapentin 100 Mg Capsule PO 200 mg BID MELISSA Administration Piperacillin/Tazobactam/Dextrose 3.375 gm in 50 mls @ 100 mls/hr 07/21/24 23:00 07/29/24 05:20 Zosyn 3.375 Gm/Ns 50 Ml IVPB 100 mls/hr Q6HR MELISSA Administration Ketorolac Tromethamine 15 mg 07/25/24 13:23 07/28/24 06:17 Ketorolac 15 Mg/Ml Vial (*Bkc) IV PUSH 15 mg Q6H PRN Administration Pain Rated 4-6 Levothyroxine Sodium 25 mcg 07/22/24 06:30 07/29/24 05:21 Levothyroxine Sodium 25 Mcg Tablet PO 25 mcg DAILY@0630 MELISSA Administration Metoprolol Succinate 50 mg 07/24/24 09:00 07/28/24 08:20 Metoprolol Succinate Ext Rel 50 Mg Tabcr PO 50 mg QAM MELISSA Administration Ondansetron HCl 4 mg 07/22/24 08:52 07/27/24 09:47 Ondansetron Inj 4 Mg/2 Ml Vial IV PUSH 4 mg Q6H PRN Administration Nausea And Vomiting Pantoprazole Sodium 40 mg 07/22/24 09:00 07/28/24 08:20 Pantoprazole 40 Mg Tablet PO 40 mg QAM MEILSSA Administration Tamsulosin HCl 0.4 mg 07/22/24 09:00 07/28/24 08:20 Tamsulosin Hcl 0.4 Mg Capsule PO 0.4 mg DAILY MELISSA Administration Radiology Results: ITS Impressions Abdomen/Pelvis CT 07/22/24 08:52 Impression: Percutaneous cholecystostomy tube in place with distended irregular gallbladder with marked irregular wall thickening and pericholecystic infarct or change, compatible with acute cholecystitis. Fluid-filled tract communicating with the gallbladder lumen at the superior aspect, which represents a tract related to prior cholecystostomy tube placement, with extension into the anterior abdominal wall. Additional suspected area of contained perforation at the inferior aspect of the gallbladder, which is new from prior exam. Acute L1 compression fracture, new from prior exam. Worsening T12 compression fracture as compared to prior exam with progressive loss of height. Cholecystostomy 07/23/24 14:08 IMPRESSION: 1. Successful upsizing to 12 [place] of a right upper quadrant percutaneous cholecystostomy tube. 2. Patent cystic and common bile ducts. Labs Labs: Laboratory Results - last 24 hr 07/29/24 06:19 WBC 6.2 RBC 3.13 L Hgb 8.8 L Hct 30.6 L MCV 97.8 MCH 28.1 MCHC 28.8 L RDW 14.9 H Plt Count 232 MPV 10.1 Immature Gran % (Auto) 0.6 H Neut % (Auto) 42.7 L Lymph % (Auto) 38.7 [place] % (Auto) 9.2 H Eos % (Auto) 8.3 H Baso % (Auto) 0.5 Lymph # (Auto) 2.39 [place] # (Auto) 0.6 Eos # (Auto) 0.5 H Baso # (Auto) 0.0 Abs Immat Gran (auto) 0.04 H Absolute Neuts (auto) 2.6 Absolute Nucleated RBC 0.000 Band Neutrophils % Not Reportable Nucleated RBC % 0.0 Platelet Estimate Adequate Hypochromasia 1+ Anisocytosis 1+ Schistocytes None seen Sodium 138 Potassium 4.7 Chloride 103 Carbon Dioxide 30 Anion Gap 5 BUN 15 Creatinine 0.52 L Estim Creat Clear Calc 54 Estimated GFR > 60 Glucose 99 Calcium 8.8 Magnesium 1.7 Total Bilirubin 0.2 AST 34 ALT 21 Alkaline Phosphatase 121 Total Protein 6.0 L Albumin 2.7 L
[2024-07-29] MEDS: KETOROLAC 15 MG/ML VIAL (*BKC) IV PUSH ×2 (08:41→13:27)
[2024-07-29] MEDS: PANTOPRAZOLE 40 MG TABLET PO (08:45)
[2024-07-29] MEDS: ACETAMINOPHEN 500 MG TABLET 1000 MG PO ×2 (08:45→17:09)
[2024-07-29] MEDS: CYANOCOBALAMIN 1,000 MCG TABLET 2000 MCG PO (08:45)
[2024-07-29] MEDS: TAMSULOSIN HCL 0.4 MG CAPSULE PO (08:45)
[2024-07-29] MEDS: GABAPENTIN 100 MG CAPSULE 200 MG PO ×2 (08:45→17:08)
[2024-07-29] MEDS: CYANOCOBALAMIN 500 MCG TABLET PO (08:45)
[2024-07-29] MEDS: ENOXAPARIN 40 MG/0.4 ML SYRINGE SUB-Q (08:45)
[2024-07-29] MEDS: METOPROLOL SUCCINATE EXT REL 50 MG TABCR PO (08:45)
--- NOTE | 2024-07-29 08:45 | PM.IMPN ---
Progress Note: A&P Assessment and Plan (1) Essential hypertension: Code(s): I10 - Essential (primary) hypertension Status: Acute (2) Coronary artery disease involving [place] coronary artery of [place] heart: Code(s): I25.10 - Atherosclerotic heart disease of [place] coronary artery without angina pectoris Status: Acute (3) Acute cholecystitis: Code(s): K81.0 - Acute cholecystitis Status: Acute Plan Acute cholecystitis with calculus: Code(s): cholecystostomy tube 07/23 in IR. Continue have purulent discharge from the cholecystotomy tube Patient is on Zosyn 3.375 gm IVPB q 6. Management per general surgeon robotic-assisted laparoscopic cholecystectomy, possible open, on by Dr. Chester. Essential hypertension: Code(s): I10 - Essential (primary) hypertension Status: Acute Assessment and Plan: Blood pressure 137/61. Metoprolol Succinate 50 mg PO QAM. Coronary artery disease: Code(s): I25.10 - Atherosclerotic heart disease of [place] coronary artery without angina pectoris Status: Acute Assessment and Plan: Atorvastatin 40 mg PO QHS. Atrial fibrillation: Qualifiers: Atrial fibrillation type: unspecified Qualified Code(s): I48.91 - Unspecified atrial fibrillation Code(s): I48.91 - Unspecified atrial fibrillation Status: Acute Assessment and Plan: Currently SR 88. Metoprolol Succinate 50 mg PO daily. Lovenox 40 mg subq daily. Telemetry. Eliquis on hold for possible surgical procedure Hypothyroidism: Code(s): E03.9 - Hypothyroidism, unspecified Status: Acute Assessment and Plan: Levothyroxine 25 mcg PO daily. Gastroesophageal reflux disease: Code(s): K21.9 - Gastro-esophageal reflux disease without esophagitis Status: Acute Assessment and Plan: Pantoprazole 40 mg PO QAM. T12 compression fracture: Code(s): S22.080A - Wedge compression fracture of T11-T12 vertebra, initial encounter for closed fracture Status: Acute Assessment and Plan: Patient is followed by pain management and to have kyphoplasty, patient was supposed to have this week but ended up hospitalized. TLSO ordered. PT/OT No focal deficits no urinary fecal incontinence Severe protein-calorie malnutrition: Code(s): E43 - Unspecified severe protein-calorie malnutrition Status: Acute Assessment and Plan: Protein 6.0. Severe protein calorie malnutrition related to taste changes, poor appetite, nausea as evidenced by intakes <75% needs >1 month. Weight loss-15%/3 months: moderate fat loss, severe muscle wasting. Ensure Enlive TID and Nutritional ice cream TID. Drain Technician following. Hypomagnesemia: Code(s): E83.42 - Hypomagnesemia Status: Acute Assessment and Plan: Magnesium 1.8 today. Trend level. (10) Hypokalemia: Code(s): E87.6 - Hypokalemia Status: Acute Assessment and Plan: Potassium 4.3. Trend level. Subjective Date/time seen: 07/29/24 08:45 Interval history: Patient is afebrile, blood pressure stable, no O2 desaturation on room air Patient denies abdomen pain, nausea vomiting diarrhea Exam Narrative: GENERAL: Pleasant, in no acute distress. Well-nourished. - EYES: EOMI. Anicteric. - HENT: Moist mucous membranes. - LUNGS: Clear to auscultation bilaterally, no wheezing, rhonchi, or rales. - CARDIOVASCULAR: Regular rate and rhythm. No murmur. No JVD. - ABDOMEN: Soft, non-tender and non-distended. No palpable masses. Cloudy fluid drained out from cholecystotomy - EXTREMITIES: No edema. Peripheral pulses 2+. Non-tender. - NEUROLOGIC: No focal neurological deficits. CN II-XII grossly intact. - PSYCHIATRIC: Awake, Alert and oriented x 3. Appropriate mood and affect. - SKIN: No rashes or lesions. Warm. - LYMPH: No cervical lymphadenopathy. Objective Data Vital Signs Vital Signs: Vital Signs - 24 hr 07/28/24 12:00 07/28/24 14:00 07/28/24 16:00 Temperature 98 F Pulse Rate 83 79 80 Respiratory Rate 18 Blood Pressure 116/50 L Pulse Oximetry 100 Oxygen Delivery 07/28/24 20:00 07/28/24 20:00 07/28/24 20:25 Temperature 97.3 F L Pulse Rate 82 85 Respiratory Rate 20 Blood Pressure 135/65 Pulse Oximetry 95 Oxygen Delivery Room Air 07/29/24 00:00 07/29/24 04:00 07/29/24 05:20 Temperature 96.7 F L Pulse Rate 78 69 72 Respiratory Rate 20 Blood Pressure 136/62 Pulse Oximetry 98 Oxygen Delivery Intake/Output Intake/Output: Intake & Output 07/26/24 07/27/24 07/28/24 07/29/24 23:59 23:59 23:59 23:59 Intake Total 1579 944 5699 50 Output Total 0 445 320 Balance 0849 560 1070 -270 Meds/Results Medications: Active Medications Generic Name Dose Route Start Last Admin Trade Name Freq PRN Reason Stop Dose Admin Acetaminophen 1,000 mg 07/22/24 08:52 07/28/24 20:02 Acetaminophen 500 Mg Tablet PO 1,000 mg Q6H PRN Administration Mild Pain (1-3) or Fever Amitriptyline HCl 20 mg 07/21/24 21:15 07/28/24 20:02 Amitriptyline Hcl 10 Mg Tablet PO 20 mg QHS MELISSA Administration Atorvastatin Calcium 40 mg 07/21/24 21:15 07/28/24 20:02 Atorvastatin 40 Mg Tablet PO 40 mg QHS MELISSA Administration Cyanocobalamin 500 mcg 07/22/24 09:00 07/28/24 08:20 Cyanocobalamin 500 Mcg Tablet PO 500 mcg QAM MELISSA Administration Cyanocobalamin 2,000 mcg 07/22/24 09:00 07/28/24 08:20 Cyanocobalamin 1,000 Mcg Tablet PO 2,000 mcg QAM MELISSA Administration Enoxaparin Sodium 40 mg 07/23/24 16:10 07/28/24 08:28 Enoxaparin 40 Mg/0.4 Ml Syringe SUB-Q 40 mg DAILY MELISSA Administration Gabapentin 200 mg 07/22/24 09:00 07/28/24 18:02 Gabapentin 100 Mg Capsule PO 200 mg BID MELISSA Administration Piperacillin/Tazobactam/Dextrose 3.375 gm in 50 mls @ 100 mls/hr 07/21/24 23:00 07/29/24 05:20 Zosyn 3.375 Gm/Ns 50 Ml IVPB 100 mls/hr Q6HR MELISSA Administration Ketorolac Tromethamine 15 mg 07/25/24 13:23 07/28/24 06:17 Ketorolac 15 Mg/Ml Vial (*Bkc) IV PUSH 15 mg Q6H PRN Administration Pain Rated 4-6 Levothyroxine Sodium 25 mcg 07/22/24 06:30 07/29/24 05:21 Levothyroxine Sodium 25 Mcg Tablet PO 25 mcg DAILY@0630 MELISSA Administration Metoprolol Succinate 50 mg 07/24/24 09:00 07/28/24 08:20 Metoprolol Succinate Ext Rel 50 Mg Tabcr PO 50 mg QAM MELISSA Administration Ondansetron HCl 4 mg 07/22/24 08:52 07/27/24 09:47 Ondansetron Inj 4 Mg/2 Ml Vial IV PUSH 4 mg Q6H PRN Administration Nausea And Vomiting Pantoprazole Sodium 40 mg 07/22/24 09:00 07/28/24 08:20 Pantoprazole 40 Mg Tablet PO 40 mg QAM MELISSA Administration Tamsulosin HCl 0.4 mg 07/22/24 09:00 07/28/24 08:20 Tamsulosin Hcl 0.4 Mg Capsule PO 0.4 mg DAILY MELISSA Administration Radiology Results: ITS Impressions Abdomen/Pelvis CT 07/22/24 08:52 Impression: Percutaneous cholecystostomy tube in place with distended irregular gallbladder with marked irregular wall thickening and pericholecystic infarct or change, compatible with acute cholecystitis. Fluid-filled tract communicating with the gallbladder lumen at the superior aspect, which represents a tract related to prior cholecystostomy tube placement, with extension into the anterior abdominal wall. Additional suspected area of contained perforation at the inferior aspect of the gallbladder, which is new from prior exam. Acute L1 compression fracture, new from prior exam. Worsening T12 compression fracture as compared to prior exam with progressive loss of height. Cholecystostomy 07/23/24 14:08 IMPRESSION: 1. Successful upsizing to 12 [place] of a right upper quadrant percutaneous cholecystostomy tube. 2. Patent cystic and common bile ducts. Labs Labs: Laboratory Results - last 24 hr 07/29/24 06:19 WBC 6.2 RBC 3.13 L Hgb 8.8 L Hct 30.6 L MCV 97.8 MCH 28.1 MCHC 28.8 L RDW 14.9 H Plt Count 232 MPV 10.1 Immature Gran % (Auto) 0.6 H Neut % (Auto) 42.7 L Lymph % (Auto) 38.7 [place] % (Auto) 9.2 H Eos % (Auto) 8.3 H Baso % (Auto) 0.5 Lymph # (Auto) 2.39 [place] # (Auto) 0.6 Eos # (Auto) 0.5 H Baso # (Auto) 0.0 Abs Immat Gran (auto) 0.04 H Absolute Neuts (auto) 2.6 Absolute Nucleated RBC 0.000 Band Neutrophils % Not Reportable Nucleated RBC % 0.0 Platelet Estimate Adequate Hypochromasia 1+ Anisocytosis 1+ Schistocytes None seen Sodium 138 Potassium 4.7 Chloride 103 Carbon Dioxide 30 Anion Gap 5 BUN 15 Creatinine 0.52 L Estim Creat Clear Calc 54 Estimated GFR > 60 Glucose 99 Calcium 8.8 Magnesium 1.7 Total Bilirubin 0.2 AST 34 ALT 21 Alkaline Phosphatase 121 Total Protein 6.0 L Albumin 2.7 L
--- NOTE | 2024-07-29 12:26 | P.PNGS_ITS ---
Progress Note: A&P Assessment and Plan (1) Acute cholecystitis: Code(s): K81.0 - Acute cholecystitis Status: Acute Assessment and Plan: Patient remains stable with cholecystostomy tube in place, but there continues to be thick purulent output from the drain. After thorough discussion with the patient and her daughter, they have decided to proceed with a cholecystectomy. The surgery was discussed in detail. Description of the procedure, risks, benefits, alternatives, and expected recovery were discussed in detail. We discussed the risks of bile leak and bile duct injury, liver/bowel injury, bleeding, and infection. Also discussed the possibility of having to convert to an open procedure if necessary. All questions were answered. She has been added to the surgery schedule tomorrow for a robotic-assisted laparoscopic cholecystectomy, possible open by Dr. Chester. I will order preoperative labs for the morning and make her NPO after midnight. She continues on IV Zosyn. (2) Moderate protein-calorie malnutrition: Code(s): E44.0 - Moderate protein-calorie malnutrition Status: Acute Assessment and Plan: Continue Ensure supplements. Will make her NPO after midnight. Plan I have discussed the patient's case and plan of care with Dr. Chester. Subjective Subjective Date/Time Seen: 07/29/24 12:26 Patient reports: afebrile Interval history: No acute changes overnight. No new complaints. Although she does still continue to have a poor appetite, she is eating well. No nausea or vomiting. No abdominal pain at this time. She is sitting in the chair without much back pain. She has been receiving IV Toradol, which has been helping her back. Exam Const: General: comfortable and no acute distress Orienta tion/consciousness: patient oriented x3 GI: Inspection: non-distended GI Palp: Yes Soft to palpation, No Tenderness to palpation present (GI), No Guarding due to palpation present (GI) and No Rebound tenderness present Auscultation: normal bowel sounds Other: RUQ cholecystostomy tube with thick linton bile tinged output and sediment in the bag, gauze dressing dry and intact Objective Data Vital Signs Vital Signs: Vital Signs - 24 hr 07/28/24 14:00 07/28/24 16:00 07/28/24 20:00 Temperature 98 F Pulse Rate 79 80 Respiratory Rate 18 Blood Pressure 116/50 L Pulse Oximetry 100 Oxygen Delivery Room Air 07/28/24 20:00 07/28/24 20:25 07/29/24 00:00 Temperature 97.3 F L Pulse Rate 82 85 78 Respiratory Rate 20 Blood Pressure 135/65 Pulse Oximetry 95 Oxygen Delivery 07/29/24 04:00 07/29/24 05:20 07/29/24 08:00 Temperature 96.7 F L Pulse Rate 69 72 Respiratory Rate 20 Blood Pressure 136/62 Pulse Oximetry 98 Oxygen Delivery Room Air 07/29/24 08:45 Temperature Pulse Rate 72 Respiratory Rate Blood Pressure Pulse Oximetry Oxygen Delivery Intake/Output Intake/Output: Intake & Output 07/26/24 07/27/24 07/28/24 07/29/24 23:59 23:59 23:59 23:59 Intake Total 1598 102 5574 390 Output Total 0 445 320 Balance 9038 774 4007 70 Meds/Results Medications: Active Medications Generic Name Dose Route Start Last Admin Trade Name Freq PRN Reason Stop Dose Admin Acetaminophen 1,000 mg 07/22/24 08:52 07/29/24 08:45 Acetaminophen 500 Mg Tablet PO 1,000 mg Q6H PRN Administration Mild Pain (1-3) or Fever Amitriptyline HCl 20 mg 07/21/24 21:15 07/28/24 20:02 Amitriptyline Hcl 10 Mg Tablet PO 20 mg QHS MELISSA Administration Atorvastatin Calcium 40 mg 07/21/24 21:15 07/28/24 20:02 Atorvastatin 40 Mg Tablet PO 40 mg QHS MELISSA Administration Cyanocobalamin 500 mcg 07/22/24 09:00 07/29/24 08:45 Cyanocobalamin 500 Mcg Tablet PO 500 mcg QAM MELISSA Administration Cyanocobalamin 2,000 mcg 07/22/24 09:00 07/29/24 08:45 Cyanocobalamin 1,000 Mcg Tablet PO 2,000 mcg QAM MELISSA Administration Enoxaparin Sodium 40 mg 07/23/24 16:10 07/29/24 08:45 Enoxaparin 40 Mg/0.4 Ml Syringe SUB-Q 40 mg DAILY MELISSA Administration Gabapentin 200 mg 07/22/24 09:00 07/29/24 08:45 Gabapentin 100 Mg Capsule PO 200 mg BID MELISSA Administration Piperacillin/Tazobactam/Dextrose 3.375 gm in 50 mls @ 100 mls/hr 07/21/24 23:00 07/29/24 11:44 Zosyn 3.375 Gm/Ns 50 Ml IVPB Infused Q6HR MELISSA Infusion Ketorolac Tromethamine 15 mg 07/25/24 13:23 07/29/24 08:41 Ketorolac 15 Mg/Ml Vial (*Bkc) IV PUSH 15 mg Q6H PRN Administration Pain Rated 4-6 Levothyroxine Sodium 25 mcg 07/22/24 06:30 07/29/24 05:21 Levothyroxine Sodium 25 Mcg Tablet PO 25 mcg DAILY@0630 MELISSA Administration Metoprolol Succinate 50 mg 07/24/24 09:00 07/29/24 08:45 Metoprolol Succinate Ext Rel 50 Mg Tabcr PO 50 mg QAM MELISSA Administration Ondansetron HCl 4 mg 07/22/24 08:52 07/27/24 09:47 Ondansetron Inj 4 Mg/2 Ml Vial IV PUSH 4 mg Q6H PRN Administration Nausea And Vomiting Pantoprazole Sodium 40 mg 07/22/24 09:00 07/29/24 08:45 Pantoprazole 40 Mg Tablet PO 40 mg QAM MELISSA Administration Tamsulosin HCl 0.4 mg 07/22/24 09:00 07/29/24 08:45 Tamsulosin Hcl 0.4 Mg Capsule PO 0.4 mg DAILY MELISSA Administration Radiology Results: ITS Impressions Abdomen/Pelvis CT 07/22/24 08:52 Impression: Percutaneous cholecystostomy tube in place with distended irregular gallbladder with marked irregular wall thickening and pericholecystic infarct or change, compatible with acute cholecystitis. Fluid-filled tract communicating with the gallbladder lumen at the superior aspect, which represents a tract related to prior cholecystostomy tube placement, with extension into the anterior abdominal wall. Additional suspected area of contained perforation at the inferior aspect of the gallbladder, which is new from prior exam. Acute L1 compression fracture, new from prior exam. Worsening T12 compression fracture as compared to prior exam with progressive loss of height. Cholecystostomy 07/23/24 14:08 IMPRESSION: 1. Successful upsizing to 12 [place]ian of a right upper quadrant percutaneous cholecystostomy tube. 2. Patent cystic and common bile ducts. Labs Labs: Laboratory Results - last 24 hr 07/29/24 06:19 WBC 6.2 RBC 3.13 L Hgb 8.8 L Hct 30.6 L MCV 97.8 MCH 28.1 MCHC 28.8 L RDW 14.9 H Plt Count 232 MPV 10.1 Immature Gran % (Auto) 0.6 H Neut % (Auto) 42.7 L Lymph % (Auto) 38.7 [place] % (Auto) 9.2 H Eos % (Auto) 8.3 H Baso % (Auto) 0.5 Lymph # (Auto) 2.39 [place] # (Auto) 0.6 Eos # (Auto) 0.5 H Baso # (Auto) 0.0 Abs Immat Gran (auto) 0.04 H Absolute Neuts (auto) 2.6 Absolute Nucleated RBC 0.000 Band Neutrophils % Not Reportable Nucleated RBC % 0.0 Platelet Estimate Adequate Hypochromasia 1+ Anisocytosis 1+ Schistocytes None seen Sodium 138 Potassium 4.7 Chloride 103 Carbon Dioxide 30 Anion Gap 5 BUN 15 Creatinine 0.52 L Estim Creat Clear Calc 54 Estimated GFR > 60 Glucose 99 Calcium 8.8 Magnesium 1.7 Total Bilirubin 0.2 AST 34 ALT 21 Alkaline Phosphatase 121 Total Protein 6.0 L Albumin 2.7 L
[2024-07-29] MEDS: AMITRIPTYLINE HCL 10 MG TABLET 20 MG PO (20:28)
[2024-07-29] MEDS: ATORVASTATIN 40 MG TABLET PO (20:28)
[2024-07-30] VITALS (10 sets, daily range): BP systolic 140–147; BP diastolic 67–76; PULSE 70–85; RESP 16–20; TEMP 35.9–37.1; O2SAT 95–96
[2024-07-30] MEDS: PIPERACILLN/TAZ 3.375GM/NS50ML 3.375 GM/50 ML BAG IVPB ×4 (05:18→23:23)
[2024-07-30 06:24] LABS: Basophils Percent Auto 0.5 % (0.2-1.2); Eosinophils Absolute Auto 0.6 K/mm3 (0-0.3); Eosinophils Percent Auto 9.5 % (0-4.4); Hematocrit 31.8 % (37.0-47.0); Hemoglobin 9.4 g/dL (12.0-15.0); Immature Granulocyte Absolute 0.03 K/mm3 (0.00-0.031); Immature Granulocyte Percent A 0.5 % (0-0.5); Lymphocytes Absolute Auto 2.37 K/mm3 (0.9-3.2); Lymphocytes Percent Auto 39.4 % (18.3-44.2); Mean Corpuscular HGB Conc 29.6 g/dl (32-36); Mean Corpuscular Hemoglobin 28.7 pg (26-34); Mean Platelet Volume 10.1 fl (7.4-10.4); Monocytes Absolute Auto 0.5 K/mm3 (0.1-0.6); Neutrophils Absolute Auto 2.5 K/mm3 (1.3-6.7); Neutrophils Percent Auto 42.1 % (45.5-73.1); Platelet Count Result 253 k/mm3 (150-375); Red Blood Count 3.28 M/mm3 (4.2-5.4); Red Cell Distribution Width 15.2 % (11.5-14.5)
[2024-07-30 06:33] LABS: Alanine Aminotransferase 23 U/L (6-35); Alkaline Phosphatase 128 U/L (38-126); Anion Gap 5 mmol/L (4-12); Aspartate Amino Transferase 33 U/L (14-36); Bilirubin,Total 0.3 mg/dL (0.2-1.3); Blood Urea Nitrogen 17 mg/dL (7-17); Calcium 8.9 mg/dL (8.4-10.2); Carbon Dioxide 28 mmol/L (22-30); Chloride 104 mmol/L (98-107); Estimated CRCL calculation 50 ml/min; Estimated Glomerular Filt Rate > 60; Glucose 96 mg/dL (65-110); Lipase 93 U/L (23-300); Magnesium 1.8 mg/dL (1.6-2.3); Potassium 4.1 mmol/L (3.4-5.0); Sodium 137 mmol/L (137-145)
[2024-07-30 06:47] LABS: INR 1.1
[2024-07-30 06:48] LABS: Partial Thromboplastin Time 41.1 Seconds (22.3-36.8)
--- NOTE | 2024-07-30 07:24 | P.PNIM_ITS ---
Progress Note: A&P Assessment and Plan (1) Essential hypertension: Code(s): I10 - Essential (primary) hypertension Status: Acute (2) Coronary artery disease involving [place] coronary artery of [place] heart: Code(s): I25.10 - Atherosclerotic heart disease of [place] coronary artery without angina pectoris Status: Acute (3) Acute cholecystitis: Code(s): K81.0 - Acute cholecystitis Status: Acute Plan Acute cholecystitis with calculus: Planned for Cholecystectomy tomorrow Cholecystostomy tube 07/23 in IR. Continue have purulent discharge from the cholecystotomy tube Patient is on Zosyn 3.375 gm IVPB q 6. Management per general surgeon robotic-assisted laparoscopic cholecystectomy, possible open, on by Dr. Chester. Essential hypertension: * Blood pressure 137/61. * Metoprolol Succinate 50 mg PO QAM. * Coronary artery disease: * Atorvastatin 40 mg PO QHS. Atrial fibrillation type: * Currently SR 88. * Metoprolol Succinate 50 mg PO daily. * Lovenox 40 mg subq daily. * Telemetry. Eliquis on hold for possible surgical procedure Hypothyroidism: * Levothyroxine 25 mcg PO daily. Gastroesophageal reflux disease: * Pantoprazole 40 mg PO QAM. T12 compression fracture: Wedge compression fracture of T11-T12 vertebra, initial encounter for closed fracture * Patient is followed by pain management and to have kyphoplasty, patient was supposed to have this week but ended up hospitalized. * TLSO ordered. * PT/OT No focal deficits no urinary fecal incontinence Severe protein-calorie malnutrition: * Protein 6.0. * Severe protein calorie malnutrition related to taste changes, poor appetite, nausea as evidenced by intakes <75% needs >1 month. Weight loss-15%/3 months: moderate fat loss, severe muscle wasting. * Ensure Enlive TID and Nutritional ice cream TID. * Human Services Manager following. Hypomagnesemia: * Magnesium 1.8 today. * Trend level. (10) Hypokalemia: Hypokalemia * Potassium 4.3. * Trend level. Subjective Date/time seen: 07/30/24 07:24 Interval history: Patient will undergo laparoscopic cholecystectomy tomorrow Review of Systems Review of Systems: All systems reviewed & are unremarkable except as noted in HPI and below Exam Narrative: GENERAL: Pleasant, in no acute distress. Well-nourished. - EYES: EOMI. Anicteric. - HENT: Moist mucous membranes. - LUNGS: Clear to auscultation bilateral ly, no wheezing, rhonchi, or rales. - CARDIOVASCULAR: Regular rate and rhyth m. No murmur. No JVD. - ABDOMEN: Soft, non-tender and non-dist ended. No palpable masses. Cloudy fluid drained out from cholecystotomy - EXTREMITIES: No edema. Peripheral puls es 2+. Non-tender. - NEUROLOGIC: No focal neurological defi cits. CN II-XII grossly intact. - PSYCHIATRIC: Awake, Alert and oriented x 3. Appropriate mood and affect. - SKIN: No rashes or lesions. Warm. - LYMPH: No cervical lymphadenopathy. Const: General: comfortable, no acute distress and uncomfortable Other: A&O x3 HENMT: Mouth: Yes moist mucous membranes Eyes: Pupils: Equal, round and reactive pupils present Neck: Neck: supple Resp: Effort & Inspection: normal respiratory effort Auscultation: clear to auscultation bilaterally Cardio: Rate: regular rate and tachycardic Rhythm: regular rhythm Other: Telemetry- SR 88. GI: Inspection: non-distended Auscultation: normal bowel sounds Other: Cholecystectomy tube. Neuro: Cranial nerves: Yes Equal, round and reactive pupils present Speech: normal speech Motor exam (neuro): 5/5 motor strength present throughout Extrem: General: no edema and no pedal edema Psych: Mental Status: mental status grossly normal Affect: normal affect Objective Data Vital Signs Vital Signs: Vital Signs - 24 hr 07/29/24 08:00 07/29/24 08:00 07/29/24 08:45 Temperature Pulse Rate 81 72 Respiratory Rate Blood Pressure Pulse Oximetry Oxygen Delivery Room Air 07/29/24 12:00 07/29/24 14:00 07/29/24 16:00 Temperature 97.2 F L Pulse Rate 94 72 84 Respiratory Rate 20 Blood Pressure 132/52 L Pulse Oximetry 99 Oxygen Delivery 07/29/24 20:00 07/29/24 20:00 07/29/24 20:35 Temperature 96.9 F L Pulse Rate 84 81 Respiratory Rate 16 Blood Pressure 144/66 H Pulse Oximetry 97 Oxygen Delivery Room Air 07/30/24 00:00 07/30/24 04:00 07/30/24 06:00 Temperature 96.6 F L Pulse Rate 81 74 76 Respiratory Rate 18 Blood Pressure 140/71 Pulse Oximetry 95 Oxygen Delivery Intake/Output Intake/Output: Intake & Output 07/27/24 07/28/24 07/29/24 07/30/24 23:59 23:59 23:59 23:59 Intake Total 980 1869 1020 50 Output Total 445 520 Balance 535 1869 500 50 Meds/Results Medications: Active Medications Generic Name Dose Route Start Last Admin Trade Name Freq PRN Reason Stop Dose Admin Acetaminophen 1,000 mg 07/22/24 08:52 07/29/24 17:09 Acetaminophen 500 Mg Tablet PO 1,000 mg Q6H PRN Administration Mild Pain (1-3) or Fever Amitriptyline HCl 20 mg 07/21/24 21:15 07/29/24 20:28 Amitriptyline Hcl 10 Mg Tablet PO 20 mg QHS MELISSA Administration Atorvastatin Calcium 40 mg 07/21/24 21:15 07/29/24 20:28 Atorvastatin 40 Mg Tablet PO 40 mg QHS MELISSA Administration Cyanocobalamin 500 mcg 07/22/24 09:00 07/29/24 08:45 Cyanocobalamin 500 Mcg Tablet PO 500 mcg QAM MELISSA Administration Cyanocobalamin 2,000 mcg 07/22/24 09:00 07/29/24 08:45 Cyanocobalamin 1,000 Mcg Tablet PO 2,000 mcg QAM MELISSA Administration Enoxaparin Sodium 40 mg 07/23/24 16:10 07/29/24 08:45 Enoxaparin 40 Mg/0.4 Ml Syringe SUB-Q 40 mg DAILY MELISSA Administration Gabapentin 200 mg 07/22/24 09:00 07/29/24 17:08 Gabapentin 100 Mg Capsule PO 200 mg BID MELISSA Administration Piperacillin/Tazobactam/Dextrose 3.375 gm in 50 mls @ 100 mls/hr 07/21/24 23:00 07/30/24 05:18 Zosyn 3.375 Gm/Ns 50 Ml IVPB 100 mls/hr Q6HR MELISSA Administration Ketorolac Tromethamine 15 mg 07/25/24 13:23 07/29/24 13:27 Ketorolac 15 Mg/Ml Vial (*Bkc) IV PUSH 15 mg Q6H PRN Administration Pain Rated 4-6 Levothyroxine Sodium 25 mcg 07/22/24 06:30 07/29/24 22:26 Levothyroxine Sodium 25 Mcg Tablet PO Not Given DAILY@0630 MELISSA Metoprolol Succinate 50 mg 07/24/24 09:00 07/29/24 08:45 Metoprolol Succinate Ext Rel 50 Mg Tabcr PO 50 mg QAM MELISSA Administration Ondansetron HCl 4 mg 07/22/24 08:52 07/27/24 09:47 Ondansetron Inj 4 Mg/2 Ml Vial IV PUSH 4 mg Q6H PRN Administration Nausea And Vomiting Pantoprazole Sodium 40 mg 07/22/24 09:00 07/29/24 08:45 Pantoprazole 40 Mg Tablet PO 40 mg QAM MELISSA Administration Tamsulosin HCl 0.4 mg 07/22/24 09:00 07/29/24 08:45 Tamsulosin Hcl 0.4 Mg Capsule PO 0.4 mg DAILY MELISSA Administration Radiology Results: ITS Impressions Abdomen/Pelvis CT 07/22/24 08:52 Impression: Percutaneous cholecystostomy tube in place with distended irregular gallbladder with marked irregular wall thickening and pericholecystic infarct or change, compatible with acute cholecystitis. Fluid-filled tract communicating with the gallbladder lumen at the superior aspect, which represents a tract related to prior cholecystostomy tube placement, with extension into the anterior abdominal wall. Additional suspected area of contained perforation at the inferior aspect of the gallbladder, which is new from prior exam. Acute L1 compression fracture, new from prior exam. Worsening T12 compression fracture as compared to prior exam with progressive loss of height. Cholecystostomy 07/23/24 14:08 IMPRESSION: 1. Successful upsizing to 12 [place] of a right upper quadrant percutaneous cholecystostomy tube. 2. Patent cystic and common bile ducts. Labs Labs: Laboratory Results - last 24 hr 07/29/24 07/30/24 06:19 05:39 WBC 6.2 RBC 3.13 L Hgb 8.8 L Hct 30.6 L MCV 97.8 MCH 28.1 MCHC 28.8 L RDW 14.9 H Plt Count 232 MPV 10.1 Immature Gran % (Auto) 0.6 H Neut % (Auto) 42.7 L Lymph % (Auto) 38.7 [place] % (Auto) 9.2 H Eos % (Auto) 8.3 H Baso % (Auto) 0.5 Lymph # (Auto) 2.39 [place] # (Auto) 0.6 Eos # (Auto) 0.5 H Baso # (Auto) 0.0 Abs Immat Gran (auto) 0.04 H Absolute Neuts (auto) 2.6 Absolute Nucleated RBC 0.000 Band Neutrophils % Not Reportable Nucleated RBC % 0.0 Platelet Estimate Adequate Hypochromasia 1+ Anisocytosis 1+ Schistocytes None seen PT 14.0 INR 1.1 APTT 41.1 H Sodium 137 Potassium 4.1 Chloride 104 Carbon Dioxide 28 Anion Gap 5 BUN 17 Creatinine 0.57 L Estim Creat Clear Calc 50 Estimated GFR > 60 Glucose 96 Calcium 8.9 Magnesium 1.8 Total Bilirubin 0.3 AST 33 ALT 23 Alkaline Phosphatase 128 H Total Protein 6.0 L Albumin 3.0 L Lipase 93 Blood Type O Negative Quality VTE Prophylaxis VTE prophylaxis: mechanical ordered and pharmacologic ordered Hospitalist MIPS Advance Care Plan I have confirmed that the patient's Advanced Care Plan is present, code status is documented, or surrogate decision maker is listed in patient medical record.: Yes Medication Reconciliation I have utilized all available resources to obtain, update and review the patients current medications (includes all prescriptions, OTC, herbals, cannabis, and nutritional supplements).: Yes
[2024-07-30 07:25] LABS: Hypochromasia 1+; Platelet Estimate Adequate (Adequate)
[2024-07-30 07:26] LABS: Schistocytes None Seen
[2024-07-30] MEDS: METOPROLOL SUCCINATE EXT REL 50 MG TABCR PO (08:49)
--- NOTE | 2024-07-30 09:10 | WPDHPUPDATE1 ---
History and Physical Update Update Date/Time: 07/30/24 09:10 History and Physical has been reviewed, including an updated exam of the patient. There are NO changes in the patient's condition. Risks, benefits, and alternatives have been discussed and questions answered. Patient agrees to proceed with procedure.
--- NOTE | 2024-07-30 10:01 | PC.NURSE ---
To pre-op per [bed], IV [22 R AC].
--- NOTE | 2024-07-30 11:37 | P.PN_ITS ---
Subjective Date/time seen: 07/30/24 11:37 Interval history: Patient was scheduled robot assisted laparoscopic cholecystectomy with possible revision open cholecystectomy. Due to his with proper functioning of the de Melissa robot her surgery was canceled today and rescheduled for tomorrow July 31, 2024. She remains stable. I discussed this with the patient and her daughter and they understand and agree with rescheduling for tomorrow. Let the patient return to her room. Go ahead and give her a diet today and make her NPO again at midnight. Clinically she remains stable there is no urgent need to proceed with the surgery today. Objective Data Vital Signs Vital Signs: Vital Signs - 24 hr 07/29/24 12:00 07/29/24 14:00 07/29/24 16:00 Temperature 36.2 C L Pulse Rate 94 72 84 Respiratory Rate 20 Blood Pressure 132/52 L Pulse Oximetry 99 Oxygen Delivery 07/29/24 20:00 07/29/24 20:00 07/29/24 20:35 Temperature 36.1 C L Pulse Rate 84 81 Respiratory Rate 16 Blood Pressure 144/66 H Pulse Oximetry 97 Oxygen Delivery Room Air 07/30/24 00:00 07/30/24 04:00 07/30/24 06:00 Temperature 35.9 C L Pulse Rate 81 74 76 Respiratory Rate 18 Blood Pressure 140/71 Pulse Oximetry 95 Oxygen Delivery 07/30/24 08:00 07/30/24 08:49 Temperature Pulse Rate 72 Respiratory Rate Blood Pressure Pulse Oximetry Oxygen Delivery Room Air Intake/Output Intake/Output: Intake & Output 07/27/24 07/28/24 07/29/24 07/30/24 23:59 23:59 23:59 23:59 Intake Total 980 1869 1020 50 Output Total 445 520 Balance 535 1869 500 50 Meds/Results Medications: Active Medications Generic Name Dose Route Start Last Admin Trade Name Freq PRN Reason Stop Dose Admin Acetaminophen 1,000 mg 07/22/24 08:52 07/29/24 17:09 Acetaminophen 500 Mg Tablet PO 1,000 mg Q6H PRN Administration Mild Pain (1-3) or Fever Amitriptyline HCl 20 mg 07/21/24 21:15 07/29/24 20:28 Amitriptyline Hcl 10 Mg Tablet PO 20 mg QHS MELISSA Administration Atorvastatin Calcium 40 mg 07/21/24 21:15 07/29/24 20:28 Atorvastatin 40 Mg Tablet PO 40 mg QHS [facility] Administration Cyanocobalamin 500 mcg 07/22/24 09:00 07/30/24 07:37 Cyanocobalamin 500 Mcg Tablet PO Not Given QAM [facility] Cyanocobalamin 2,000 mcg 07/22/24 09:00 07/30/24 07:37 Cyanocobalamin 1,000 Mcg Tablet PO Not Given QAM [facility] Enoxaparin Sodium 40 mg 07/23/24 16:10 07/30/24 07:37 Enoxaparin 40 Mg/0.4 Ml Syringe SUB-Q Not Given DAILY [facility] Gabapentin 200 mg 07/22/24 09:00 07/30/24 07:37 Gabapentin 100 Mg Capsule PO Not Given BID [facility] Piperacillin/Tazobactam/Dextrose 3.375 gm in 50 mls @ 100 mls/hr 07/21/24 23:00 07/30/24 05:18 Zosyn 3.375 Gm/Ns 50 Ml IVPB 100 mls/hr Q6HR [facility] Administration Ketorolac Tromethamine 15 mg 07/25/24 13:23 07/29/24 13:27 Ketorolac 15 Mg/Ml Vial (*Bkc) IV PUSH 15 mg Q6H PRN Administration Pain Rated 4-6 Levothyroxine Sodium 25 mcg 07/22/24 06:30 07/29/24 22:26 Levothyroxine Sodium 25 Mcg Tablet PO Not Given DAILY@0630 [facility] Metoprolol Succinate 50 mg 07/24/24 09:00 07/30/24 08:49 Metoprolol Succinate Ext Rel 50 Mg Tabcr PO 50 mg QAM [facility] Administration Ondansetron HCl 4 mg 07/22/24 08:52 07/27/24 09:47 Ondansetron Inj 4 Mg/2 Ml Vial IV PUSH 4 mg Q6H PRN Administration Nausea And Vomiting Pantoprazole Sodium 40 mg 07/22/24 09:00 07/30/24 07:38 Pantoprazole 40 Mg Tablet PO Not Given QAM [facility] Tamsulosin HCl 0.4 mg 07/22/24 09:00 07/30/24 07:38 Tamsulosin Hcl 0.4 Mg Capsule PO Not Given DAILY [facility] Radiology Results: ITS Impressions Abdomen/Pelvis CT 07/22/24 08:52 Impression: Percutaneous cholecystostomy tube in place with distended irregular gallbladder with marked irregular wall thickening and pericholecystic infarct or change, compatible with acute cholecystitis. Fluid-filled tract communicating with the gallbladder lumen at the superior aspect, which represents a tract related to prior cholecystostomy tube placement, with extension into the anterior abdominal wall. Additional suspected area of contained perforation at the inferior aspect of the gallbladder, which is new from prior exam. Acute L1 compression fracture, new from prior exam. Worsening T12 compression fracture as compared to prior exam with progressive loss of height. Cholecystostomy 07/23/24 14:08 IMPRESSION: 1. Successful upsizing to 12 [place] of a right upper quadrant percutaneous cholecystostomy tube. 2. Patent cystic and common bile ducts. Labs Labs: Laboratory Results - last 24 hr 07/30/24 05:39 WBC 6.0 RBC 3.28 L Hgb 9.4 L Hct 31.8 L MCV 97.0 MCH 28.7 MCHC 29.6 L RDW 15.2 H Plt Count 253 MPV 10.1 Immature Gran % (Auto) 0.5 Neut % (Auto) 42.1 L Lymph % (Auto) 39.4 [place] % (Auto) 8.0 Eos % (Auto) 9.5 H Baso % (Auto) 0.5 Lymph # (Auto) 2.37 [place] # (Auto) 0.5 Eos # (Auto) 0.6 H Baso # (Auto) 0.0 Abs Immat Gran (auto) 0.03 Absolute Neuts (auto) 2.5 Absolute Nucleated RBC 0.000 Band Neutrophils % TNP Nucleated RBC % 0.0 Platelet Estimate Adequate Hypochromasia 1+ Schistocytes None seen PT 14.0 INR 1.1 APTT 41.1 H Sodium 137 Potassium 4.1 Chloride 104 Carbon Dioxide 28 Anion Gap 5 BUN 17 Creatinine 0.57 L Estim Creat Clear Calc 50 Estimated GFR > 60 Glucose 96 Calcium 8.9 Magnesium 1.8 Total Bilirubin 0.3 AST 33 ALT 23 Alkaline Phosphatase 128 H Total Protein 6.0 L Albumin 3.0 L Lipase 93 Blood Type O Negative Antibody Screen Negative
--- NOTE | 2024-07-30 11:40 | SUR.PREOP ---
1140- Dr. Chester in to bedside to notify patient and daughter that surgery is postponed until tomorrow 07/31/24 due to Da Melissa robot malfunctioning. Patient and daughter verbalized understanding of plan. This RN called and notified floor RN that patient's procedure is cancelled for today due to Da Melissa robot malfunction. Patient transported back to floor via bed with heart monitor in place and IV saline locked.
--- NOTE | 2024-07-30 11:56 | PCNFU ---
Nutrition Follow-Up Complete: Severe protein calorie malnutrition related chronic taste changes, poor appetite, nausea as evidenced by intakes <75% needs >1 month; weight loss -15%/3 months; moderate fat loss, severe muscle wasting Improve PO intake >50% meals and supplements - Progressing toward goal. Continue same goal Goal: Pt current nutrition is Low Fat diet. Intakes 50-10%. NPO after midnight for lap calvin tomorrow Nutrition recommendation: Last recorded weight is 67.4 kg. Bowel Motility: +1 BM 07/30/24 Labs Reviewed: Hgb 9.4, hct 31.8, Alb 3.0, Cre 0.57 Meds Noted: Protonix, zofran, vit B12 Skin: No skin issues Additional Notes: Progressing slowly with intake. Nausea improving. Lap calvin tomorrow. Monitoring intakes, weights, labs, supplement tolerance, plan of care Follow up in 5 days
[2024-07-30] MEDS: ACETAMINOPHEN 500 MG TABLET 1000 MG PO (12:13)
[2024-07-30] MEDS: GABAPENTIN 100 MG CAPSULE 200 MG PO (17:02)
[2024-07-30] MEDS: ATORVASTATIN 40 MG TABLET PO (21:07)
[2024-07-30] MEDS: AMITRIPTYLINE HCL 10 MG TABLET 20 MG PO (21:07)
[2024-07-30] MEDS: ONDANSETRON INJ 4 MG/2 ML VIAL IV PUSH (23:22)
[2024-07-30] MEDS: MORPHINE SULFATE (*CRX) 2 MG/ML INJ IV PUSH (23:22)
[2024-07-31] VITALS (17 sets, daily range): BP systolic 119–162; BP diastolic 46–77; PULSE 81–102; RESP 14–23; TEMP 35.8–37.9; O2SAT 92–100
[2024-07-31] MEDS: PIPERACILLN/TAZ 3.375GM/NS50ML 3.375 GM/50 ML BAG IVPB ×2 (05:36→12:11)
[2024-07-31] MEDS: LEVOTHYROXINE SODIUM 25 MCG TABLET PO (05:38)
[2024-07-31 08:47] LABS: Basophils Percent Auto 0.5 % (0.2-1.2); Eosinophils Absolute Auto 0.5 K/mm3 (0-0.3); Eosinophils Percent Auto 7.8 % (0-4.4); Hematocrit 31.7 % (37.0-47.0); Hemoglobin 9.5 g/dL (12.0-15.0); Immature Granulocyte Absolute 0.02 K/mm3 (0.00-0.031); Immature Granulocyte Percent A 0.3 % (0-0.5); Lymphocytes Absolute Auto 1.97 K/mm3 (0.9-3.2); Lymphocytes Percent Auto 33.3 % (18.3-44.2); Mean Corpuscular Hemoglobin 28.8 pg (26-34); Mean Corpuscular Volume 96.1 fl (80-100); Mean Platelet Volume 9.9 fl (7.4-10.4); Monocytes Absolute Auto 0.5 K/mm3 (0.1-0.6); Monocytes Percent Auto 8.3 % (2.6-8.5); Neutrophils Absolute Auto 2.9 K/mm3 (1.3-6.7); Neutrophils Percent Auto 49.8 % (45.5-73.1); Platelet Count Result 242 k/mm3 (150-375); Red Cell Distribution Width 15.7 % (11.5-14.5); White Blood Count 5.9 K/mm3 (4.5-10.0)
[2024-07-31 08:48] LABS: Alanine Aminotransferase 21 U/L (6-35); Albumin Level 2.9 g/dL (3.5-5.1); Alkaline Phosphatase 83 U/L (38-126); Anion Gap 6 mmol/L (4-12); Aspartate Amino Transferase 33 U/L (14-36); Bilirubin,Total 0.2 mg/dL (0.2-1.3); Blood Urea Nitrogen 9 mg/dL (7-17); Calcium 8.9 mg/dL (8.4-10.2); Carbon Dioxide 28 mmol/L (22-30); Chloride 106 mmol/L (98-107); Estimated CRCL calculation 51 ml/min; Estimated Glomerular Filt Rate > 60; Glucose 96 mg/dL (65-110); Potassium 4.4 mmol/L (3.4-5.0); Sodium 140 mmol/L (137-145)
[2024-07-31] MEDS: PANTOPRAZOLE 40 MG TABLET PO (08:56)
[2024-07-31] MEDS: METOPROLOL SUCCINATE EXT REL 50 MG TABCR PO (08:56)
[2024-07-31] MEDS: GABAPENTIN 100 MG CAPSULE 200 MG PO (08:56)
[2024-07-31] MEDS: SODIUM CHLORIDE 0.9% IV 1,000 ML 100 ML IV CONT ×2 (08:57→20:39)
--- NOTE | 2024-07-31 14:15 | PC.NURSE ---
pt to OR per bed, IV in Right AC. Report given to Cortez MAHAN.
--- NOTE | 2024-07-31 14:27 | P.PNIM_ITS ---
Progress Note: A&P Assessment and Plan (1) Essential hypertension: Code(s): I10 - Essential (primary) hypertension Status: Acute (2) Coronary artery disease involving [place] coronary artery of [place] heart: Code(s): I25.10 - Atherosclerotic heart disease of [place] coronary artery without angina pectoris Status: Acute (3) Acute cholecystitis: Code(s): K81.0 - Acute cholecystitis Status: Acute Plan Acute cholecystitis with calculus: Cholecystostomy tube 07/23 in IR. Continue have purulent discharge from the cholecystotomy tube Patient is on Zosyn 3.375 gm IVPB q 6. Management per general surgeon robotic-assisted laparoscopic cholecystectomy, possible open, on by Dr. Chester. Planned for Cholecystectomy today Essential hypertension: Metoprolol Succinate 50 mg PO QAM. * Coronary artery disease: * Atorvastatin 40 mg PO QHS. Atrial fibrillation type: * Currently SR 88. * Metoprolol Succinate 50 mg PO daily. * Lovenox 40 mg subq daily. * Telemetry. Eliquis on hold for possible surgical procedure Hypothyroidism: * Levothyroxine 25 mcg PO daily. Gastroesophageal reflux disease: * Pantoprazole 40 mg PO QAM. T12 compression fracture: L1 compressoin fracture Wedge compression fracture of T11-T12 vertebra, initial encounter for closed fracture * Patient is followed by pain management and to have kyphoplasty, patient was supposed to have this week but ended up hospitalized. * TLSO ordered. * PT/OT No focal deficits no urinary fecal incontinence Severe protein-calorie malnutrition: * Protein 6.0. * Severe protein calorie malnutrition related to taste changes, poor appetite, nausea as evidenced by intakes <75% needs >1 month. Weight loss-15%/3 months: moderate fat loss, severe muscle wasting. * Ensure Enlive TID and Nutritional ice cream TID. * Senior Business Process Analyst following. Hypomagnesemia: * Trend level. (10) Hypokalemia: Hypokalemia * Potassium 4.3. * Trend level. Subjective Date/time seen: 07/31/24 14:27 Interval history: no new compalints. denisse planned for surgery for her gall bladder today. Review of Systems Review of Systems: All systems reviewed & are unremarkable except as noted in HPI and below Exam Narrative: GENERAL: Pleasant, in no acute distress. Well-nourished. - EYES: EOMI. Anicteric. - HENT: Moist mucous membranes. - LUNGS: Clear to auscultation bilateral ly, no wheezing, rhonchi, or rales. - CARDIOVASCULAR: Regular rate and rhyth m. No murmur. No JVD. - ABDOMEN: Soft, non-tender and non-dist ended. No palpable masses. Cloudy fluid drained out from cholecystotomy tube - EXTREMITIES: No edema. Peripheral puls es 2+. Non-tender. - NEUROLOGIC: No focal neurological defi cits. CN II-XII grossly intact. - PSYCHIATRIC: Awake, Alert and oriented x 3. Appropriate mood and affect. - SKIN: No rashes or lesions. Warm. - LYMPH: No cervical lymphadenopathy. Objective Data Vital Signs Vital Signs: Vital Signs - 24 hr 07/30/24 16:00 07/30/24 20:00 07/30/24 20:00 Temperature Pulse Rate 73 70 Respiratory Rate Blood Pressure Pulse Oximetry Oxygen Delivery Room Air 07/30/24 20:25 07/31/24 00:00 07/31/24 04:00 Temperature 97.2 F L Pulse Rate 85 86 84 Respiratory Rate 20 Blood Pressure 147/67 H Pulse Oximetry 95 Oxygen Delivery 07/31/24 04:50 07/31/24 08:02 07/31/24 08:56 Temperature 96.4 F L Pulse Rate 83 81 83 Respiratory Rate 20 Blood Pressure 119/46 L Pulse Oximetry 93 Oxygen Delivery 07/31/24 12:03 Temperature Pulse Rate 81 Respiratory Rate Blood Pressure Pulse Oximetry Oxygen Delivery Intake/Output Intake/Output: Intake & Output 07/28/24 07/29/24 07/30/24 07/31/24 23:59 23:59 23:59 23:59 Intake Total 1869 1020 1940 290 Output Total 520 600 700 Balance 3722 565 8022 -410 Meds/Results Medications: Active Medications Generic Name Dose Route Start Last Admin Trade Name Freq PRN Reason Stop Dose Admin Acetaminophen 1,000 mg 07/22/24 08:52 07/30/24 12:13 Acetaminophen 500 Mg Tablet PO 1,000 mg Q6H PRN Administration Mild Pain (1-3) or Fever Amitriptyline HCl 20 mg 07/21/24 21:15 07/30/24 21:07 Amitriptyline Hcl 10 Mg Tablet PO 20 mg QHS MELISSA Administration Atorvastatin Calcium 40 mg 07/21/24 21:15 07/30/24 21:07 Atorvastatin 40 Mg Tablet PO 40 mg QHS [facility] Administration Cyanocobalamin 500 mcg 07/22/24 09:00 07/31/24 08:46 Cyanocobalamin 500 Mcg Tablet PO Not Given QAM [facility] Cyanocobalamin 2,000 mcg 07/22/24 09:00 07/31/24 08:46 Cyanocobalamin 1,000 Mcg Tablet PO Not Given QAM [facility] Enoxaparin Sodium 40 mg 07/23/24 16:10 07/31/24 07:48 Enoxaparin 40 Mg/0.4 Ml Syringe SUB-Q Not Given DAILY [facility] Gabapentin 200 mg 07/22/24 09:00 07/31/24 08:56 Gabapentin 100 Mg Capsule PO 200 mg BID MELISSA Administration Piperacillin/Tazobactam/Dextrose 3.375 gm in 50 mls @ 100 mls/hr 07/21/24 23:00 07/31/24 12:11 Zosyn 3.375 Gm/Ns 50 Ml IVPB 100 mls/hr Q6HR MELISSA Administration Sodium Chloride 1,000 mls @ 100 mls/hr 07/31/24 07:40 07/31/24 08:57 Normal Saline Iv IV CONT 100 mls/hr .Q10H MELISSA Administration Ketorolac Tromethamine 15 mg 07/25/24 13:23 07/29/24 13:27 Ketorolac 15 Mg/Ml Vial (*Bkc) IV PUSH 15 mg Q6H PRN Administration Pain Rated 4-6 Levothyroxine Sodium 25 mcg 07/22/24 06:30 07/31/24 05:38 Levothyroxine Sodium 25 Mcg Tablet PO 25 mcg DAILY@0630 [facility] Administration Metoprolol Succinate 50 mg 07/24/24 09:00 07/31/24 08:56 Metoprolol Succinate Ext Rel 50 Mg Tabcr PO 50 mg QAM [facility] Administration Morphine Sulfate 2 mg 07/30/24 22:38 07/30/24 23:22 Morphine Sulfate (*Crx) 2 Mg/Ml Inj IV PUSH 2 mg Q4H PRN Administration Pain Rated 6 or Greater Ondansetron HCl 4 mg 07/22/24 08:52 07/30/24 23:22 Ondansetron Inj 4 Mg/2 Ml Vial IV PUSH 4 mg Q6H PRN Administration Nausea And Vomiting Pantoprazole Sodium 40 mg 07/22/24 09:00 07/31/24 08:56 Pantoprazole 40 Mg Tablet PO 40 mg QAM MELISSA Administration Tamsulosin HCl 0.4 mg 07/22/24 09:00 07/31/24 08:46 Tamsulosin Hcl 0.4 Mg Capsule PO Not Given DAILY [facility] Radiology Results: ITS Impressions Abdomen/Pelvis CT 07/22/24 08:52 Impression: Percutaneous cholecystostomy tube in place with distended irregular gallbladder with marked irregular wall thickening and pericholecystic infarct or change, compatible with acute cholecystitis. Fluid-filled tract communicating with the gallbladder lumen at the superior aspect, which represents a tract related to prior cholecystostomy tube placement, with extension into the anterior abdominal wall. Additional suspected area of contained perforation at the inferior aspect of the gallbladder, which is new from prior exam. Acute L1 compression fracture, new from prior exam. Worsening T12 compression fracture as compared to prior exam with progressive loss of height. Cholecystostomy 07/23/24 14:08 IMPRESSION: 1. Successful upsizing to 12 Romansh of a right upper quadrant percutaneous cholecystostomy tube. 2. Patent cystic and common bile ducts. Labs Labs: Laboratory Results - last 24 hr 07/31/24 08:24 WBC 5.9 RBC 3.30 L Hgb 9.5 L Hct 31.7 L MCV 96.1 MCH 28.8 MCHC 30.0 L RDW 15.7 H Plt Count 242 MPV 9.9 Immature Gran % (Auto) 0.3 Neut % (Auto) 49.8 Lymph % (Auto) 33.3 [place] % (Auto) 8.3 Eos % (Auto) 7.8 H Baso % (Auto) 0.5 Lymph # (Auto) 1.97 [place] # (Auto) 0.5 Eos # (Auto) 0.5 H Baso # (Auto) 0.0 Abs Immat Gran (auto) 0.02 Absolute Neuts (auto) 2.9 Absolute Nucleated RBC 0.000 Nucleated RBC % 0.0 Sodium 140 Potassium 4.4 Chloride 106 Carbon Dioxide 28 Anion Gap 6 BUN 9 D Creatinine 0.55 L Estim Creat Clear Calc 51 Estimated GFR > 60 Glucose 96 Calcium 8.9 Total Bilirubin 0.2 AST 33 ALT 21 Alkaline Phosphatase 83 Total Protein 6.0 L Albumin 2.9 L
--- NOTE | 2024-07-31 15:10 | WPDANESEPPF ---
Anes - Initial Pre Proc Eval Procedure: Operation Date: 07/31/24 16:00 Proposed Procedures p Robotic Cholecystectomy, Possible Open - Caio Chester MD Date/Time: 07/31/24 15:10 Surgeon: Caio Chester MD Pre Op Diagnosis: Cholecystitis Patient Data Age: 84 Gender: F Height: 1.6 m Weight: 67.4 kg Last Vital Signs Temp 37.9 C H 07/31/24 14:30 Pulse 83 07/31/24 14:30 Resp 14 07/31/24 14:30 BP 131/58 L 07/31/24 14:30 Pulse Ox 92 07/31/24 14:30 O2 Del Method Room Air 07/31/24 14:30 Allergies Allergy/AdvReac Type Severity Reaction Status Date / Time alendronate sodium Allergy Unknown Pt does Verified 07/31/24 14:56 remember levofloxacin Allergy Unknown Pt does Verified 07/31/24 14:56 not remember hydrocodone AdvReac Mild IF SHE Verified 07/31/24 14:56 TAKES 250 MG SHE IS OKAY, 500 MG SHE HAS NAUSEA AND V Home Medications Medication Instructions Recorded Confirmed Type cyanocobalamin (vitamin B-12) 2,500 mcg PO QAM #90 tabs 01/10/23 07/21/24 Rx 2,500 mcg tablet levothyroxine 25 mcg tablet 25 mcg PO DAILY #90 tabs 03/20/23 07/21/24 Rx omeprazole 20 mg capsule,delayed 40 mg (2 x 20 mg) PO DAILY #180 08/28/23 07/21/24 Rx release caps ondansetron HCl 4 mg tablet See Rx Instructions .Route 12/03/23 07/21/24 Rx .COMPLEX #40 ea egg crate mattress for chair #1 ea 04/27/24 07/21/24 Rx nitroglycerin 0.4 mg sublingual 0.4 mg sublingual Q5M PRN chest 05/02/24 07/21/24 History tablet pain acetaminophen 500 mg capsule 1,000 mg PO TID PRN pain 06/13/24 07/21/24 History amitriptyline 10 mg tablet 20 mg PO .HS 06/13/24 07/21/24 History furosemide 40 mg tablet (Lasix) 40 mg PO BID 30 days #60 tabs 06/20/24 07/21/24 Rx metoprolol succinate 100 mg 100 mg PO DAILY 30 days #30 tabs 06/20/24 07/21/24 Rx tablet,extended release 24 hr (Toprol XL) apixaban 5 mg tablet (Eliquis) 5 mg PO Q12HR #60 tabs 06/22/24 07/21/24 Rx potassium chloride 20 mEq 40 meq (2 x 20 mEq) PO DAILY #30 06/22/24 07/21/24 Rx tablet,extended release(part/cryst) tabs tamsulosin 0.4 mg capsule 0.4 mg PO DAILY urinary retention 06/22/24 07/21/24 Rx #30 caps atorvastatin 40 mg tablet 40 mg PO DAILY #90 tabs 06/29/24 07/21/24 Rx chair lift #1 ea 06/29/24 07/21/24 Rx gabapentin 100 mg capsule 200 mg PO BID 07/21/24 07/21/24 History Laboratory Tests 07/31/24 08:24 WBC 5.9 K/mm3 (4.5-10.0) RBC 3.30 L M/mm3 (4.2-5.4) Hgb 9.5 L g/dL (12.0-15.0) Hct 31.7 L % (37.0-47.0) MCV 96.1 fl (80-100) MCH 28.8 pg (26-34) MCHC 30.0 L g/dl (32-36) RDW 15.7 H % (11.5-14.5) Plt Count 242 k/mm3 (150-375) MPV 9.9 fl (7.4-10.4) Immature Gran % (Auto) 0.3 % (0-0.5) Neut % (Auto) 49.8 % (45.5-73.1) Lymph % (Auto) 33.3 % (18.3-44.2) [place] % (Auto) 8.3 % (2.6-8.5) Eos % (Auto) 7.8 H % (0-4.4) Baso % (Auto) 0.5 % (0.2-1.2) Lymph # (Auto) 1.97 K/mm3 (0.9-3.2) [place] # (Auto) 0.5 K/mm3 (0.1-0.6) Eos # (Auto) 0.5 H K/mm3 (0-0.3) Baso # (Auto) 0.0 K/mm3 (0.0-0.1) Abs Immat Gran (auto) 0.02 K/mm3 (0.00-0.031) Absolute Neuts (auto) 2.9 K/mm3 (1.3-6.7) Absolute Nucleated RBC 0.000 K/mm3 (0.0-0.012) Nucleated RBC % 0.0 % (0.0-0.2) Sodium 140 mmol/L (137-145) Potassium 4.4 mmol/L (3.4-5.0) Chloride 106 mmol/L (98-107) Carbon Dioxide 28 mmol/L (22-30) Anion Gap 6 mmol/L (4-12) BUN 9 D mg/dL (7-17) Creatinine 0.55 L mg/dL (0.7-1.0) Estim Creat Clear Calc 51 ml/min Estimated GFR > 60 (59 - ) Glucose 96 mg/dL (65-110) Calcium 8.9 mg/dL (8.4-10.2) Total Bilirubin 0.2 mg/dL (0.2-1.3) AST 33 U/L (14-36) ALT 21 U/L (6-35) Alkaline Phosphatase 83 U/L (38-126) Total Protein 6.0 L g/dL (6.3-8.2) Albumin 2.9 L g/dL (3.5-5.1) Patient hx anesthesia problems: none Family hx anesthesia problems: none Results Review: All pre-operative results and documents have been reviewed as part of the pre-operative evaluation. 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 Patient of Dr. Bereket Olson. Arthritis Prediabetes Essential hypertension Gastroesophageal reflux disease Hypothyroidism Mixed hyperlipidemia Seasonal allergic rhinitis Vitamin B12 deficiency Vitamin D deficiency Surgical History Surgical History History of cardiac catheterization Results as above. History of colonoscopy with polypectomy History of appendectomy History of cataract extraction History of hysterectomy Family History Family History Father Lung cancer Sibling Breast cancer Social History Social History Social History: Surrogate medical decision maker: Jodi Lewis, daughter. Code status: Full code. Smoking status: Never smoker Second hand tobacco smoke exposure: No Alcohol intake: never Substance use: never Substance use type: does not use Do You Feel Safe in your Home?: Yes Lack of Transportation: No Lack of Food: Never True Current Housing: I Have Housing Concerned About Future Housing: No Difficulty Paying Gas/Electric Bills: No Difficulty Paying for Meds: No Currently Unemployed: No Education: High School Diploma/GED Difficulty w/ Childcare or Family Care: No Living arrangements: with family Additional living arrangements comments: The patient lives in [place] with her daughter Jodi. 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 Spiritual care concerns: No Agree to blood products: Yes Anes - Eval Final PreProcedure Day of Procedure 07/31/24 15:10 Patient weight: overweight Heart: regular rate and rhythm Lungs: clear to auscultation Airway: Mallampati scale class III Neurological: alert and oriented Last oral intake: >/= 8 hours ASA classification: III Emergent: no Anesthetic plan: proceed Anesthesia type and monitoring: general ETT and standard monitoring Results Review: All pre-operative results and documents have been reviewed as part of the pre-operative evaluation. Informed Consent: The patient's anesthetic plan and its attendant risks and benefits were discussed with the patient/family/POA. Questions were solicited and answers provided to the satisfaction of the patient/family/POA.
--- NOTE | 2024-07-31 15:18 | WPDHPUPDATE1 ---
History and Physical Update Update Date/Time: 07/31/24 15:18 History and Physical has been reviewed, including an updated exam of the patient. There are NO changes in the patient's condition. Risks, benefits, and alternatives have been discussed and questions answered. Patient agrees to proceed with procedure.
[2024-07-31] MEDS: INDOCYANINE GREEN 25 MG VIAL WITH DILUENT 3.75 MG IV PUSH (15:25)
[2024-07-31] MEDS: LACTATED RINGERS 1,000 ML 30 ML IV CONT (15:35)
[2024-07-31] MEDS: BUPivacaine HCL 0.5% 10 ML AMP 30 ML INFILTRATE (15:43)
[2024-07-31] MEDS: LIDO 1%/EPINEPHRINE 1:100,000 50 ML VIAL 30 ML INFILTRATE (15:43)
--- NOTE | 2024-07-31 18:42 | PM.OP ---
Procedure Note - Brief Procedure Note - Brief Date of procedure: 07/31/24 Acute cholecystitis with perforation Post-op diagnosis: Same Procedure performed: Robotic assisted laparoscopic non fenestrated subtotal cholecystectomy Surgeon: Caio Chester MD Anesthesia: GETCarlie Estimated blood loss (mL): 50 Urine output (mL): 425 Drains: Yes (SRAVAN drain right upper quadrant) Packing: No Pathology: Yes (Gallbladder wall to pathology) Complications: No immediate complications Condition: Stable Disposition: PACU
[2024-07-31] MEDS: fentaNYL CITRATE INJ (*CRX) 100 MCG/2 ML VIAL 25 MCG IV PUSH ×2 (19:28→19:41)
[2024-07-31] MEDS: ACETAMINOPHEN 500 MG TABLET 1000 MG PO (20:29)
[2024-07-31] MEDS: AMITRIPTYLINE HCL 10 MG TABLET 20 MG PO (20:31)
[2024-07-31] MEDS: KETOROLAC 15 MG/ML VIAL (*BKC) IV PUSH (20:31)
[2024-07-31] MEDS: ATORVASTATIN 40 MG TABLET PO (20:31)
[2024-08-01] VITALS (15 sets, daily range): BP systolic 111–142; BP diastolic 59–75; PULSE 80–99; RESP 16–20; TEMP 35.8–37.2; O2SAT 91–99
[2024-08-01] MEDS: PIPERACILLN/TAZ 3.375GM/NS50ML 3.375 GM/50 ML BAG IVPB ×4 (00:19→18:00)
[2024-08-01] MEDS: SODIUM CHLORIDE 0.9% IV 1,000 ML 100 ML IV CONT (02:04)
[2024-08-01 05:57] LABS: Basophils Absolute Auto 0.1 K/mm3 (0.0-0.1); Basophils Percent Auto 0.3 % (0.2-1.2); Hematocrit 32.8 % (37.0-47.0); Hemoglobin 9.6 g/dL (12.0-15.0); Immature Granulocyte Percent A 0.6 % (0-0.5); Lymphocytes Absolute Auto 1.07 K/mm3 (0.9-3.2); Lymphocytes Percent Auto 6.9 % (18.3-44.2); Mean Corpuscular HGB Conc 29.3 g/dl (32-36); Mean Corpuscular Hemoglobin 28.7 pg (26-34); Mean Corpuscular Volume 98.2 fl (80-100); Mean Platelet Volume 9.9 fl (7.4-10.4); Monocytes Absolute Auto 0.7 K/mm3 (0.1-0.6); Monocytes Percent Auto 4.3 % (2.6-8.5); Neutrophils Absolute Auto 13.7 K/mm3 (1.3-6.7); Neutrophils Percent Auto 87.9 % (45.5-73.1); Platelet Count Result 231 k/mm3 (150-375); Red Blood Count 3.34 M/mm3 (4.2-5.4); Red Cell Distribution Width 15.6 % (11.5-14.5); White Blood Count 15.5 K/mm3 (4.5-10.0)
[2024-08-01] MEDS: LEVOTHYROXINE SODIUM 25 MCG TABLET PO (06:04)
[2024-08-01 06:07] LABS: Alanine Aminotransferase 22 U/L (6-35); Albumin Level 3.1 g/dL (3.5-5.1); Alkaline Phosphatase 81 U/L (38-126); Anion Gap 8 mmol/L (4-12); Aspartate Amino Transferase 36 U/L (14-36); Bilirubin,Total 0.3 mg/dL (0.2-1.3); Blood Urea Nitrogen 12 mg/dL (7-17); Calcium 8.6 mg/dL (8.4-10.2); Carbon Dioxide 22 mmol/L (22-30); Chloride 107 mmol/L (98-107); Estimated CRCL calculation 58 ml/min; Estimated Glomerular Filt Rate > 60; Glucose 128 mg/dL (65-110); Magnesium 1.8 mg/dL (1.6-2.3); Potassium 4.5 mmol/L (3.4-5.0); Sodium 137 mmol/L (137-145)
[2024-08-01 06:52] LABS: Hypochromasia 1+; Platelet Estimate Adequate (Adequate); Schistocytes None Seen
[2024-08-01] MEDS: KETOROLAC 15 MG/ML VIAL (*BKC) IV PUSH ×2 (09:36→15:40)
[2024-08-01] MEDS: GABAPENTIN 100 MG CAPSULE 200 MG PO ×2 (11:28→18:00)
[2024-08-01] MEDS: CYANOCOBALAMIN 1,000 MCG TABLET 2000 MCG PO (11:28)
[2024-08-01] MEDS: CYANOCOBALAMIN 500 MCG TABLET PO (11:28)
[2024-08-01] MEDS: PANTOPRAZOLE 40 MG TABLET PO (11:28)
[2024-08-01] MEDS: ENOXAPARIN 40 MG/0.4 ML SYRINGE SUB-Q (11:29)
[2024-08-01] MEDS: TAMSULOSIN HCL 0.4 MG CAPSULE PO (11:29)
[2024-08-01] MEDS: METOPROLOL SUCCINATE EXT REL 50 MG TABCR PO (11:29)
[2024-08-01] MEDS: ACETAMINOPHEN 500 MG TABLET 1000 MG PO ×2 (11:32→20:26)
--- NOTE | 2024-08-01 11:36 | PCPTNOTE ---
Pt requires TLSO in place for OOB activities due to compression fractures at T12 and L1. Unable to place TLSO currently due to drain placement after surgical intervention. Will be able to complete reevaluation with clearance from surgeon to place TLSO over drain tube, or once drain is removed.
--- NOTE | 2024-08-01 11:44 | WPDPN ---
Progress Note: A&P Assessment and Plan (1) Acute cholecystitis: Code(s): K81.0 - Acute cholecystitis Status: Acute Assessment and Plan: Postop day 1 after robotic assisted laparoscopic non fenestrated subtotal cholecystectomy. Doing well today. Likely has a small bile leak but that hopefully will stop on its own. Liver enzymes are normal. White blood cell count is elevated the to 15,000 likely due to stress of surgery. Go ahead Hep-Lock her IV fluids. She is taking fluids well. Advanced diet as tolerated and give her Ensure supplements. Okay to get up and participate in therapy with her TLSO brace on. Continue supportive care. Continue IV antibiotics for another 24 to 48 hours. Subjective Date/time seen: 08/01/24 11:44 Interval history: Patient seems to be doing much better today. Complaining of some shoulder pain but likely due to retain pneumoperitoneum. No nausea. Seems to want to eat today. Postop day 1. After robotic assisted subtotal non fenestrated cholecystectomy. White blood cell count is elevated 15,000 today. As likely reactive to the surgery. Liver enzymes are all normal. Exam GI: Other: Abdomen is soft and nondistended. Port site incisions are healing well. Right upper quadrant SRAVAN drain only had about 20cc of light bile tinged fluid. Objective Data Vital Signs Vital Signs: Vital Signs - 24 hr 07/31/24 12:03 07/31/24 14:30 07/31/24 18:39 Temperature 37.9 C H 36.8 C Pulse Rate 81 83 102 H Respiratory Rate 14 23 H Blood Pressure 131/58 L 155/75 H Pulse Oximetry 92 100 Oxygen Delivery Room Air Simple Face Mask Oxygen Flow Rate 9 Fraction of Inspired Oxygen 07/31/24 18:55 07/31/24 19:10 07/31/24 19:25 Temperature 36.4 C Pulse Rate 92 95 96 Respiratory Rate 20 22 H 20 Blood Pressure 145/68 H 138/70 151/73 H Pulse Oximetry 98 92 95 Oxygen Delivery Simple Face Mask Room Air Room Air Oxygen Flow Rate 9 Fraction of Inspired Oxygen 07/31/24 19:40 07/31/24 20:00 07/31/24 20:00 Temperature Pulse Rate 94 94 94 Respiratory Rate 22 H 22 H Blood Pressure 147/72 H Pulse Oximetry 95 95 Oxygen Delivery Nasal Cannula Nasal Cannula Oxygen Flow Rate 2 2 Fraction of Inspired Oxygen 07/31/24 20:03 07/31/24 20:15 07/31/24 20:45 Temperature 35.8 C L 36.0 C L 36.3 C L Pulse Rate 95 95 92 Respiratory Rate 16 20 18 Blood Pressure 154/75 H 162/75 H 151/77 H Pulse Oximetry 96 96 97 Oxygen Delivery Oxygen Flow Rate Fraction of Inspired Oxygen 07/31/24 21:45 08/01/24 00:00 08/01/24 00:02 Temperature 36.4 C L 35.8 C L Pulse Rate 87 80 85 Respiratory Rate 20 18 Blood Pressure 119/62 111/59 L Pulse Oximetry 99 98 Oxygen Delivery Oxygen Flow Rate Fraction of Inspired Oxygen 08/01/24 04:00 08/01/24 04:45 08/01/24 07:59 Temperature 36.3 C L Pulse Rate 85 80 Respiratory Rate 16 Blood Pressure 116/59 L Pulse Oximetry 97 94 Oxygen Delivery Nasal Cannula Oxygen Flow Rate 1 Fraction of Inspired Oxygen 08/01/24 08:02 08/01/24 11:29 Temperature 36.9 C Pulse Rate 89 89 Respiratory Rate 16 Blood Pressure 134/75 Pulse Oximetry 99 Oxygen Delivery Oxygen Flow Rate Fraction of Inspired Oxygen Intake/Output Intake/Output: Intake & Output 07/29/24 07/30/24 07/31/24 08/01/24 23:59 23:59 23:59 23:59 Intake Total 1020 1940 1390 811.7 Output Total 509 750 3122 290 Balance 500 1340 -40 521.7 Meds/Results Medications: Active Medications Generic Name Dose Route Start Last Admin Trade Name Freq PRN Reason Stop Dose Admin Acetaminophen 1,000 mg 07/22/24 08:52 08/01/24 11:32 Acetaminophen 500 Mg Tablet PO 1,000 mg Q6H PRN Administration Mild Pain (1-3) or Fever Amitriptyline HCl 20 mg 07/21/24 21:15 07/31/24 20:31 Amitriptyline Hcl 10 Mg Tablet PO 20 mg QHS MELISSA Administration Atorvastatin Calcium 40 mg 07/21/24 21:15 07/31/24 20:31 Atorvastatin 40 Mg Tablet PO 40 mg QHS MELISSA Administration Cyanocobalamin 500 mcg 07/22/24 09:00 08/01/24 11:28 Cyanocobalamin 500 Mcg Tablet PO 500 mcg QAM MELISSA Administration Cyanocobalamin 2,000 mcg 07/22/24 09:00 08/01/24 11:28 Cyanocobalamin 1,000 Mcg Tablet PO 2,000 mcg QAM MELISSA Administration Enoxaparin Sodium 40 mg 08/01/24 09:00 08/01/24 11:29 Enoxaparin 40 Mg/0.4 Ml Syringe SUB-Q 40 mg DAILY MELISSA Administration Fentanyl Citrate 25 mcg 07/31/24 15:24 07/31/24 19:41 Fentanyl Citrate Inj (*Crx) 100 Mcg/2 Ml Vial IV PUSH 25 mcg Q2M PRN Administration Pain Gabapentin 200 mg 07/22/24 09:00 08/01/24 11:28 Gabapentin 100 Mg Capsule PO 200 mg BID MELISSA Administration Piperacillin/Tazobactam/Dextrose 3.375 gm in 50 mls @ 100 mls/hr 07/21/24 23:00 08/01/24 11:30 Zosyn 3.375 Gm/Ns 50 Ml IVPB 100 mls/hr Q6HR MELISSA Administration Sodium Chloride 1,000 mls @ 100 mls/hr 07/31/24 07:40 08/01/24 02:04 Normal Saline Iv IV CONT 100 mls/hr .Q10H MELISSA Administration Ketorolac Tromethamine 15 mg 07/25/24 13:23 08/01/24 09:36 Ketorolac 15 Mg/Ml Vial (*Bkc) IV PUSH 15 mg Q6H PRN Administration Pain Rated 4-6 Levothyroxine Sodium 25 mcg 07/22/24 06:30 08/01/24 06:04 Levothyroxine Sodium 25 Mcg Tablet PO 25 mcg DAILY@0630 MELISSA Administration Metoprolol Succinate 50 mg 07/24/24 09:00 08/01/24 11:29 Metoprolol Succinate Ext Rel 50 Mg Tabcr PO 50 mg QAM MELISSA Administration Morphine Sulfate 2 mg 07/30/24 22:38 07/30/24 23:22 Morphine Sulfate (*Crx) 2 Mg/Ml Inj IV PUSH 2 mg Q4H PRN Administration Pain Rated 6 or Greater Ondansetron HCl 4 mg 07/22/24 08:52 07/30/24 23:22 Ondansetron Inj 4 Mg/2 Ml Vial IV PUSH 4 mg Q6H PRN Administration Nausea And Vomiting Ondansetron HCl 4 mg 07/31/24 15:24 Ondansetron Inj 4 Mg/2 Ml Vial IV PUSH ONCE PRN Nausea Pantoprazole Sodium 40 mg 07/22/24 09:00 08/01/24 11:28 Pantoprazole 40 Mg Tablet PO 40 mg QAM MELISSA Administration Tamsulosin HCl 0.4 mg 07/22/24 09:00 08/01/24 11:29 Tamsulosin Hcl 0.4 Mg Capsule PO 0.4 mg DAILY MELISSA Administration Radiology Results: ITS Impressions Abdomen/Pelvis CT 07/22/24 08:52 Impression: Percutaneous cholecystostomy tube in place with distended irregular gallbladder with marked irregular wall thickening and pericholecystic infarct or change, compatible with acute cholecystitis. Fluid-filled tract communicating with the gallbladder lumen at the superior aspect, which represents a tract related to prior cholecystostomy tube placement, with extension into the anterior abdominal wall. Additional suspected area of contained perforation at the inferior aspect of the gallbladder, which is new from prior exam. Acute L1 compression fracture, new from prior exam. Worsening T12 compression fracture as compared to prior exam with progressive loss of height. Cholecystostomy 07/23/24 14:08 IMPRESSION: 1. Successful upsizing to 12 Amharic of a right upper quadrant percutaneous cholecystostomy tube. 2. Patent cystic and common bile ducts. Labs Labs: Laboratory Results - last 24 hr 08/01/24 05:17 WBC 15.5 H RBC 3.34 L Hgb 9.6 L Hct 32.8 L MCV 98.2 MCH 28.7 MCHC 29.3 L RDW 15.6 H Plt Count 231 MPV 9.9 Immature Gran % (Auto) 0.6 H Neut % (Auto) 87.9 H Lymph % (Auto) 6.9 L [place] % (Auto) 4.3 Eos % (Auto) 0.0 Baso % (Auto) 0.3 Lymph # (Auto) 1.07 [place] # (Auto) 0.7 H Eos # (Auto) 0.0 Baso # (Auto) 0.1 Abs Immat Gran (auto) 0.10 H Absolute Neuts (auto) 13.7 H Absolute Nucleated RBC 0.000 Band Neutrophils % Not Reportable Nucleated RBC % 0.0 Platelet Estimate Adequate Hypochromasia 1+ Schistocytes None seen Sodium 137 Potassium 4.5 Chloride 107 Carbon Dioxide 22 Anion Gap 8 BUN 12 Creatinine 0.48 L Estim Creat Clear Calc 58 Estimated GFR > 60 Glucose 128 H Calcium 8.6 Magnesium 1.8 Total Bilirubin 0.3 AST 36 ALT 22 Alkaline Phosphatase 81 Total Protein 6.0 L Albumin 3.1 L
--- NOTE | 2024-08-01 13:43 | P.PNIM_ITS ---
Progress Note: A&P Assessment and Plan (1) Essential hypertension: Code(s): I10 - Essential (primary) hypertension Status: Acute (2) Coronary artery disease involving [place] coronary artery of [place] heart: Code(s): I25.10 - Atherosclerotic heart disease of [place] coronary artery without angina pectoris Status: Acute (3) Acute cholecystitis: Code(s): K81.0 - Acute cholecystitis Status: Acute Plan Acute cholecystitis with calculus: Cholecystostomy tube 07/23 in IR. Continue have purulent discharge from the cholecystotomy tube Patient is on Zosyn 3.375 gm IVPB q 6. Management per general surgeon She is status post cholecystectomy 07/31/2024 Essential hypertension: Metoprolol Succinate 50 mg PO QAM. * Coronary artery disease: * Atorvastatin 40 mg PO QHS. Atrial fibrillation type: * Metoprolol Succinate 50 mg PO daily. * Lovenox 40 mg subq daily. * Telemetry. Eliquis on hold for possible surgical procedure Currently on Lovenox Hypothyroidism: * Levothyroxine 25 mcg PO daily. Gastroesophageal reflux disease: * Pantoprazole 40 mg PO QAM. T12 compression fracture: L1 compressoin fracture Wedge compression fracture of T11-T12 vertebra, initial encounter for closed fracture * Patient is followed by pain management and to have kyphoplasty, patient was supposed to have this week but ended up hospitalized. * TLSO ordered. * PT/OT No focal deficits no urinary fecal incontinence Severe protein-calorie malnutrition: * Protein 6.0. * Severe protein calorie malnutrition related to taste changes, poor appetite, nausea as evidenced by intakes <75% needs >1 month. Weight loss-15%/3 months: moderate fat loss, severe muscle wasting. * Ensure Enlive TID and Nutritional ice cream TID. * [employer] Manager following. Hypomagnesemia: * Trend level. (10) Hypokalemia: Hypokalemia * Potassium 4.3. * Trend level. Subjective Date/time seen: 08/01/24 13:43 Interval history: Underwent surgery yesterday. No other overnight events. Complains of shoulder pain bilaterally reviewed no fever chills no shortness of breath or chest pain SRAVAN drain in place Review of Systems Review of Systems: All systems reviewed & are unremarkable except as noted in HPI and below Exam Narrative: GENERAL: Pleasant, in no acute distress. Well-nourished. - EYES: EOMI. Anicteric. - HENT: Moist mucous membranes. - LUNGS: Clear to auscultation bilateral ly, no wheezing, rhonchi, or rales. - CARDIOVASCULAR: Regular rate and rhyth m. No murmur. No JVD. - ABDOMEN: Soft, non-tender and non-dist ended. No palpable masses. SRAVAN drain in place and dressing in the surgical site clean dry and intact - EXTREMITIES: No edema. Peripheral puls es 2+. Non-tender. - NEUROLOGIC: No focal neurological defi cits. CN II-XII grossly intact. - PSYCHIATRIC: Awake, Alert and oriented x 3. Appropriate mood and affect. - SKIN: No rashes or lesions. Warm. - LYMPH: No cervical lymphadenopathy. Objective Data Vital Signs Vital Signs: Vital Signs - 24 hr 07/31/24 14:30 07/31/24 18:39 07/31/24 18:55 Temperature 100.3 F H 98.2 F Pulse Rate 83 102 H 92 Respiratory Rate 14 23 H 20 Blood Pressure 131/58 L 155/75 H 145/68 H Pulse Oximetry 92 100 98 Oxygen Delivery Room Air Simple Face Mask Simple Face Mask Oxygen Flow Rate 9 9 Fraction of Inspired Oxygen 07/31/24 19:10 07/31/24 19:25 07/31/24 19:40 Temperature 97.6 F Pulse Rate 95 96 94 Respiratory Rate 22 H 20 22 H Blood Pressure 138/70 151/73 H 147/72 H Pulse Oximetry 92 95 95 Oxygen Delivery Room Air Room Air Nasal Cannula Oxygen Flow Rate 2 Fraction of Inspired Oxygen 07/31/24 20:00 07/31/24 20:00 07/31/24 20:03 Temperature 96.5 F L Pulse Rate 94 94 95 Respiratory Rate 22 H 16 Blood Pressure 154/75 H Pulse Oximetry 95 96 Oxygen Delivery Nasal Cannula Oxygen Flow Rate 2 Fraction of Inspired Oxygen 07/31/24 20:15 07/31/24 20:45 07/31/24 21:45 Temperature 96.8 F L 97.4 F L 97.5 F L Pulse Rate 95 92 87 Respiratory Rate 20 18 20 Blood Pressure 162/75 H 151/77 H 119/62 Pulse Oximetry 96 97 99 Oxygen Delivery Oxygen Flow Rate Fraction of Inspired Oxygen 08/01/24 00:00 08/01/24 00:02 08/01/24 04:00 Temperature 96.4 F L Pulse Rate 80 85 85 Respiratory Rate 18 Blood Pressure 111/59 L Pulse Oximetry 98 Oxygen Delivery Oxygen Flow Rate Fraction of Inspired Oxygen 08/01/24 04:45 08/01/24 07:59 08/01/24 08:02 Temperature 97.3 F L 98.4 F Pulse Rate 80 89 Respiratory Rate 16 16 Blood Pressure 116/59 L 134/75 Pulse Oximetry 97 94 99 Oxygen Delivery Nasal Cannula Oxygen Flow Rate 1 Fraction of Inspired Oxygen 08/01/24 11:29 08/01/24 12:02 Temperature 98.1 F Pulse Rate 89 99 Respiratory Rate 16 Blood Pressure 136/68 Pulse Oximetry 96 Oxygen Delivery Oxygen Flow Rate Fraction of Inspired Oxygen Intake/Output Intake/Output: Intake & Output 07/29/24 07/30/24 07/31/24 08/01/24 23:59 23:59 23:59 23:59 Intake Total 1020 1940 1390 1805.0 Output Total 157 819 7697 290 Balance 500 1340 -40 1515.0 Meds/Results Medications: Active Medications Generic Name Dose Route Start Last Admin Trade Name Freq PRN Reason Stop Dose Admin Acetaminophen 1,000 mg 07/22/24 08:52 08/01/24 11:32 Acetaminophen 500 Mg Tablet PO 1,000 mg Q6H PRN Administration Mild Pain (1-3) or Fever Amitriptyline HCl 20 mg 07/21/24 21:15 07/31/24 20:31 Amitriptyline Hcl 10 Mg Tablet PO 20 mg QHS MELISSA Administration Atorvastatin Calcium 40 mg 07/21/24 21:15 07/31/24 20:31 Atorvastatin 40 Mg Tablet PO 40 mg QHS MELISSA Administration Cyanocobalamin 500 mcg 07/22/24 09:00 08/01/24 11:28 Cyanocobalamin 500 Mcg Tablet PO 500 mcg QAM MELISSA Administration Cyanocobalamin 2,000 mcg 07/22/24 09:00 08/01/24 11:28 Cyanocobalamin 1,000 Mcg Tablet PO 2,000 mcg QAM MELISSA Administration Enoxaparin Sodium 40 mg 08/01/24 09:00 08/01/24 11:29 Enoxaparin 40 Mg/0.4 Ml Syringe SUB-Q 40 mg DAILY MELISSA Administration Fentanyl Citrate 25 mcg 07/31/24 15:24 07/31/24 19:41 Fentanyl Citrate Inj (*Crx) 100 Mcg/2 Ml Vial IV PUSH 25 mcg Q2M PRN Administration Pain Gabapentin 200 mg 07/22/24 09:00 08/01/24 11:28 Gabapentin 100 Mg Capsule PO 200 mg BID MELISSA Administration Piperacillin/Tazobactam/Dextrose 3.375 gm in 50 mls @ 100 mls/hr 07/21/24 23:00 08/01/24 12:00 Zosyn 3.375 Gm/Ns 50 Ml IVPB Infused Q6HR MELISSA Infusion Ketorolac Tromethamine 15 mg 07/25/24 13:23 08/01/24 09:36 Ketorolac 15 Mg/Ml Vial (*Bkc) IV PUSH 15 mg Q6H PRN Administration Pain Rated 4-6 Levothyroxine Sodium 25 mcg 07/22/24 06:30 08/01/24 06:04 Levothyroxine Sodium 25 Mcg Tablet PO 25 mcg DAILY@0630 MELISSA Administration Metoprolol Succinate 50 mg 07/24/24 09:00 08/01/24 11:29 Metoprolol Succinate Ext Rel 50 Mg Tabcr PO 50 mg QAM MELISSA Administration Morphine Sulfate 2 mg 07/30/24 22:38 07/30/24 23:22 Morphine Sulfate (*Crx) 2 Mg/Ml Inj IV PUSH 2 mg Q4H PRN Administration Pain Rated 6 or Greater Ondansetron HCl 4 mg 07/22/24 08:52 07/30/24 23:22 Ondansetron Inj 4 Mg/2 Ml Vial IV PUSH 4 mg Q6H PRN Administration Nausea And Vomiting Ondansetron HCl 4 mg 07/31/24 15:24 Ondansetron Inj 4 Mg/2 Ml Vial IV PUSH ONCE PRN Nausea Pantoprazole Sodium 40 mg 07/22/24 09:00 08/01/24 11:28 Pantoprazole 40 Mg Tablet PO 40 mg QAM MELISSA Administration Tamsulosin HCl 0.4 mg 07/22/24 09:00 08/01/24 11:29 Tamsulosin Hcl 0.4 Mg Capsule PO 0.4 mg DAILY MELISSA Administration Radiology Results: ITS Impressions Abdomen/Pelvis CT 07/22/24 08:52 Impression: Percutaneous cholecystostomy tube in place with distended irregular gallbladder with marked irregular wall thickening and pericholecystic infarct or change, compatible with acute cholecystitis. Fluid-filled tract communicating with the gallbladder lumen at the superior aspect, which represents a tract related to prior cholecystostomy tube placement, with extension into the anterior abdominal wall. Additional suspected area of contained perforation at the inferior aspect of the gallbladder, which is new from prior exam. Acute L1 compression fracture, new from prior exam. Worsening T12 compression fracture as compared to prior exam with progressive loss of height. Cholecystostomy 07/23/24 14:08 IMPRESSION: 1. Successful upsizing to 12 [place] of a right upper quadrant percutaneous cholecystostomy tube. 2. Patent cystic and common bile ducts. Labs Labs: Laboratory Results - last 24 hr 08/01/24 05:17 WBC 15.5 H RBC 3.34 L Hgb 9.6 L Hct 32.8 L MCV 98.2 MCH 28.7 MCHC 29.3 L RDW 15.6 H Plt Count 231 MPV 9.9 Immature Gran % (Auto) 0.6 H Neut % (Auto) 87.9 H Lymph % (Auto) 6.9 L [place] % (Auto) 4.3 Eos % (Auto) 0.0 Baso % (Auto) 0.3 Lymph # (Auto) 1.07 [place] # (Auto) 0.7 H Eos # (Auto) 0.0 Baso # (Auto) 0.1 Abs Immat Gran (auto) 0.10 H Absolute Neuts (auto) 13.7 H Absolute Nucleated RBC 0.000 Band Neutrophils % Not Reportable Nucleated RBC % 0.0 Platelet Estimate Adequate Hypochromasia 1+ Schistocytes None seen Sodium 137 Potassium 4.5 Chloride 107 Carbon Dioxide 22 Anion Gap 8 BUN 12 Creatinine 0.48 L Estim Creat Clear Calc 58 Estimated GFR > 60 Glucose 128 H Calcium 8.6 Magnesium 1.8 Total Bilirubin 0.3 AST 36 ALT 22 Alkaline Phosphatase 81 Total Protein 6.0 L Albumin 3.1 L
[2024-08-01] MEDS: ATORVASTATIN 40 MG TABLET PO (20:26)
[2024-08-01] MEDS: AMITRIPTYLINE HCL 10 MG TABLET 20 MG PO (20:26)
[2024-08-02] VITALS (10 sets, daily range): BP systolic 122–132; BP diastolic 60–63; PULSE 72–100; RESP 18; TEMP 36.6–37.1; O2SAT 90–96
[2024-08-02] MEDS: KETOROLAC 15 MG/ML VIAL (*BKC) IV PUSH ×3 (00:03→16:51)
[2024-08-02] MEDS: PIPERACILLN/TAZ 3.375GM/NS50ML 3.375 GM/50 ML BAG IVPB ×2 (00:04→05:43)
[2024-08-02] MEDS: LEVOTHYROXINE SODIUM 25 MCG TABLET PO (05:43)
[2024-08-02 06:19] LABS: Hematocrit 28.2 % (37.0-47.0); Hemoglobin 8.1 g/dL (12.0-15.0); Mean Corpuscular HGB Conc 28.7 g/dl (32-36); Mean Corpuscular Hemoglobin 28.3 pg (26-34); Mean Corpuscular Volume 98.6 fl (80-100); Mean Platelet Volume 10.2 fl (7.4-10.4); Platelet Count Result 189 k/mm3 (150-375); Red Blood Count 2.86 M/mm3 (4.2-5.4); Red Cell Distribution Width 15.9 % (11.5-14.5); White Blood Count 9.7 K/mm3 (4.5-10.0)
[2024-08-02 06:36] LABS: Alanine Aminotransferase 15 U/L (6-35); Albumin Level 2.5 g/dL (3.5-5.1); Alkaline Phosphatase 76 U/L (38-126); Anion Gap 3 mmol/L (4-12); Aspartate Amino Transferase 22 U/L (14-36); Bilirubin,Total 0.3 mg/dL (0.2-1.3); Blood Urea Nitrogen 13 mg/dL (7-17); Calcium 8.3 mg/dL (8.4-10.2); Carbon Dioxide 27 mmol/L (22-30); Chloride 107 mmol/L (98-107); Estimated CRCL calculation 53 ml/min; Estimated Glomerular Filt Rate > 60; Glucose 108 mg/dL (65-110); Magnesium 1.7 mg/dL (1.6-2.3); Potassium 3.2 mmol/L (3.4-5.0); Sodium 137 mmol/L (137-145)
--- NOTE | 2024-08-02 09:24 | WPDPN ---
Progress Note: A&P Assessment and Plan (1) Severe protein-calorie malnutrition: Code(s): E43 - Unspecified severe protein-calorie malnutrition Status: Acute Assessment and Plan: Patient is eating better. Continue nutritional supplements. (2) Acute cholecystitis: Code(s): K81.0 - Acute cholecystitis Status: Acute Assessment and Plan: Postop day 2 after robotic assisted laparoscopic subtotal nonfenestrated cholecystectomy. She appears to have very small bile leak. Output is very minimal but is slightly bile tinged. This will likely stop on its own. Continue the drain for now. She is eating much better. Continue low-fat diet for now. White blood cell count has decreased to normal today. Yesterday's elevations most likely due to postsurgical stress response. Will stop her Zosyn IV antibiotics and transition to Augmentin oral antibiotics for the next 7 days. She wishes to go home with home PT OT. Will have the therapist comment on her needs and whether they think she could manage home with home PT OT. If she is too weak and is a safety risk then [facility] facility or swing bed would be the other option until she is strong enough to go home. Subjective Date/time seen: 08/02/24 09:24 Interval history: Patient is doing well today. Fact she looks better than I have seen her during this admission or her last admission. She is up sitting in a chair really not having any significant back pain. She is eating breakfast with a good appetite. She seems to have more energy and seems happier. She states that her back pain is much better after her cholecystectomy. Exam GI: Other: Abdomen is soft and nondistended. Port site incisions healing well. Right upper quadrant SRAVAN drain output 40cc over the past 12hours. Slight bile tinge fluid. Objective Data Vital Signs Vital Signs: Vital Signs - 24 hr 08/01/24 11:29 08/01/24 12:02 08/01/24 12:03 Temperature 36.7 C Pulse Rate 89 99 92 Respiratory Rate 16 Blood Pressure 136/68 Pulse Oximetry 96 Oxygen Delivery Oxygen Flow Rate Fraction of Inspired Oxygen 08/01/24 16:01 08/01/24 16:02 08/01/24 20:00 Temperature 36.8 C Pulse Rate 94 99 99 Respiratory Rate 16 20 Blood Pressure 142/74 H Pulse Oximetry 98 91 Oxygen Delivery Nasal Cannula Oxygen Flow Rate 2 Fraction of Inspired Oxygen 24 08/01/24 20:00 08/01/24 20:02 08/01/24 21:10 Temperature 37.2 C Pulse Rate 99 98 99 Respiratory Rate 18 20 Blood Pressure 126/60 Pulse Oximetry 95 91 Oxygen Delivery Nasal Cannula Oxygen Flow Rate 1 Fraction of Inspired Oxygen 24 08/02/24 00:00 08/02/24 04:00 08/02/24 06:00 Temperature 37.1 C Pulse Rate 100 85 91 Respiratory Rate 18 Blood Pressure 122/63 Pulse Oximetry 96 Oxygen Delivery Oxygen Flow Rate Fraction of Inspired Oxygen 08/02/24 07:59 08/02/24 08:30 08/02/24 08:44 Temperature Pulse Rate Respiratory Rate Blood Pressure Pulse Oximetry 90 Oxygen Delivery Room Air Room Air Room Air Oxygen Flow Rate Fraction of Inspired Oxygen 21 Intake/Output Intake/Output: Intake & Output 07/30/24 07/31/24 08/01/24 08/02/24 23:59 23:59 23:59 23:59 Intake Total 1940 1390 2095.0 100 Output Total 600 1430 560 250 Balance 1340 -40 1535.0 -150 Meds/Results Medications: Active Medications Generic Name Dose Route Start Last Admin Trade Name Freq PRN Reason Stop Dose Admin Acetaminophen 1,000 mg 07/22/24 08:52 08/01/24 20:26 Acetaminophen 500 Mg Tablet PO 1,000 mg Q6H PRN Administration Mild Pain (1-3) or Fever Amitriptyline HCl 20 mg 07/21/24 21:15 08/01/24 20:26 Amitriptyline Hcl 10 Mg Tablet PO 20 mg QHS MELISSA Administration Amoxicillin/Clavulanate Potassium 1 tablet 08/02/24 21:00 Amoxicillin/Clavulanate K 875-125 Mg Tab PO Q12HR MELISSA Atorvastatin Calcium 40 mg 07/21/24 21:15 08/01/24 20:26 Atorvastatin 40 Mg Tablet PO 40 mg QHS MELISSA Administration Cyanocobalamin 500 mcg 07/22/24 09:00 08/01/24 11:28 Cyanocobalamin 500 Mcg Tablet PO 500 mcg QAM MELISSA Administration Cyanocobalamin 2,000 mcg 07/22/24 09:00 08/01/24 11:28 Cyanocobalamin 1,000 Mcg Tablet PO 2,000 mcg QAM MELISSA Administration Enoxaparin Sodium 40 mg 08/01/24 09:00 08/01/24 11:29 Enoxaparin 40 Mg/0.4 Ml Syringe SUB-Q 40 mg DAILY MELISSA Administration Gabapentin 200 mg 07/22/24 09:00 08/01/24 18:00 Gabapentin 100 Mg Capsule PO 200 mg BID MELISSA Administration Ketorolac Tromethamine 15 mg 07/25/24 13:23 08/02/24 00:03 Ketorolac 15 Mg/Ml Vial (*Bkc) IV PUSH 15 mg Q6H PRN Administration Pain Rated 4-6 Levothyroxine Sodium 25 mcg 07/22/24 06:30 08/02/24 05:43 Levothyroxine Sodium 25 Mcg Tablet PO 25 mcg DAILY@0630 MELISSA Administration Metoprolol Succinate 50 mg 07/24/24 09:00 08/01/24 11:29 Metoprolol Succinate Ext Rel 50 Mg Tabcr PO 50 mg QAM [facility] Administration Morphine Sulfate 2 mg 07/30/24 22:38 07/30/24 23:22 Morphine Sulfate (*Crx) 2 Mg/Ml Inj IV PUSH 2 mg Q4H PRN Administration Pain Rated 6 or Greater Ondansetron HCl 4 mg 07/22/24 08:52 07/30/24 23:22 Ondansetron Inj 4 Mg/2 Ml Vial IV PUSH 4 mg Q6H PRN Administration Nausea And Vomiting Ondansetron HCl 4 mg 07/31/24 15:24 Ondansetron Inj 4 Mg/2 Ml Vial IV PUSH ONCE PRN Nausea Pantoprazole Sodium 40 mg 07/22/24 09:00 08/01/24 11:28 Pantoprazole 40 Mg Tablet PO 40 mg QAM [facility] Administration Potassium Chloride 40 meq 08/02/24 09:18 Potassium Chloride 20 Meq Er Tablet PO 08/02/24 09:19 ONCE ONE Tamsulosin HCl 0.4 mg 07/22/24 09:00 08/01/24 11:29 Tamsulosin Hcl 0.4 Mg Capsule PO 0.4 mg DAILY [facility] Administration Tramadol HCl 50 mg 08/02/24 09:21 Tramadol Hcl (*Crx) 50 Mg Tablet PO Q6H PRN Pain Rated 4-6 Radiology Results: ITS Impressions Abdomen/Pelvis CT 07/22/24 08:52 Impression: Percutaneous cholecystostomy tube in place with distended irregular gallbladder with marked irregular wall thickening and pericholecystic infarct or change, compatible with acute cholecystitis. Fluid-filled tract communicating with the gallbladder lumen at the superior aspect, which represents a tract related to prior cholecystostomy tube placement, with extension into the anterior abdominal wall. Additional suspected area of contained perforation at the inferior aspect of the gallbladder, which is new from prior exam. Acute L1 compression fracture, new from prior exam. Worsening T12 compression fracture as compared to prior exam with progressive loss of height. Cholecystostomy 07/23/24 14:08 IMPRESSION: 1. Successful upsizing to 12 [place] of a right upper quadrant percutaneous cholecystostomy tube. 2. Patent cystic and common bile ducts. Labs Labs: Laboratory Results - last 24 hr 08/02/24 05:28 WBC 9.7 RBC 2.86 L Hgb 8.1 L Hct 28.2 L MCV 98.6 MCH 28.3 MCHC 28.7 L RDW 15.9 H Plt Count 189 MPV 10.2 Sodium 137 Potassium 3.2 L Chloride 107 Carbon Dioxide 27 Anion Gap 3 L BUN 13 Creatinine 0.53 L Estim Creat Clear Calc 53 Estimated GFR > 60 Glucose 108 Calcium 8.3 L Magnesium 1.7 Total Bilirubin 0.3 AST 22 ALT 15 Alkaline Phosphatase 76 Total Protein 5.0 L Albumin 2.5 L
[2024-08-02] MEDS: ENOXAPARIN 40 MG/0.4 ML SYRINGE SUB-Q (09:55)
[2024-08-02] MEDS: METOPROLOL SUCCINATE EXT REL 50 MG TABCR PO (09:56)
[2024-08-02] MEDS: GABAPENTIN 100 MG CAPSULE 200 MG PO ×2 (09:56→16:51)
[2024-08-02] MEDS: PANTOPRAZOLE 40 MG TABLET PO (09:56)
[2024-08-02] MEDS: TAMSULOSIN HCL 0.4 MG CAPSULE PO (09:56)
[2024-08-02] MEDS: CYANOCOBALAMIN 500 MCG TABLET PO (09:56)
[2024-08-02] MEDS: CYANOCOBALAMIN 1,000 MCG TABLET 2000 MCG PO (09:56)
[2024-08-02] MEDS: POTASSIUM CHLORIDE 20 MEQ ER TABLET 40 MEQ PO (10:04)
--- NOTE | 2024-08-02 13:02 | P.PNIM_ITS ---
Progress Note: A&P Assessment and Plan (1) Essential hypertension: Code(s): I10 - Essential (primary) hypertension Status: Acute (2) Coronary artery disease involving [place] coronary artery of [place] heart: Code(s): I25.10 - Atherosclerotic heart disease of [place] coronary artery without angina pectoris Status: Acute (3) Acute cholecystitis: Code(s): K81.0 - Acute cholecystitis Status: Acute Plan Acute cholecystitis with calculus: Cholecystostomy tube 07/23 in IR. Continue have purulent discharge from the cholecystotomy tube Patient is on Zosyn 3.375 gm IVPB q 6. Management per general surgeon She is status post cholecystectomy 07/31/2024 Essential hypertension: Metoprolol Succinate 50 mg PO QAM. * Coronary artery disease: * Atorvastatin 40 mg PO QHS. Atrial fibrillation type: * Metoprolol Succinate 50 mg PO daily. * Lovenox 40 mg subq daily. * Telemetry. Eliquis on hold for possible surgical procedure Currently on Lovenox Hypothyroidism: * Levothyroxine 25 mcg PO daily. Gastroesophageal reflux disease: * Pantoprazole 40 mg PO QAM. T12 compression fracture: L1 compressoin fracture Wedge compression fracture of T11-T12 vertebra, initial encounter for closed fracture * Patient is followed by pain management and to have kyphoplasty, patient was supposed to have this week but ended up hospitalized. * TLSO ordered. * PT/OT No focal deficits no urinary fecal incontinence Severe protein-calorie malnutrition: * Protein 6.0. * Severe protein calorie malnutrition related to taste changes, poor appetite, nausea as evidenced by intakes <75% needs >1 month. Weight loss-15%/3 months: moderate fat loss, severe muscle wasting. * Ensure Enlive TID and Nutritional ice cream TID. * [employer] following. Hypomagnesemia: Replace and monitor Hypokalemia Replace and monitor * Trend level. Subjective Date/time seen: 08/02/24 13:02 Interval history: No overnight events. Working with therapy. Denies any back pain. Abdomen is feeling better. SRAVAN drain is still in place. No fever chills. Daughter at bedside and discussed with her. Review of Systems Review of Systems: All systems reviewed & are unremarkable except as noted in HPI and below Exam Narrative: GENERAL: Pleasant, in no acute distress. Well-nourished. - EYES: EOMI. Anicteric. - HENT: Moist mucous membranes. - LUNGS: Clear to auscultation bilateral ly, no wheezing, rhonchi, or rales. - CARDIOVASCULAR: Regular rate and rhyth m. No murmur. No JVD. - ABDOMEN: Soft, non-tender and non-dist ended. No palpable masses. SRAVAN drain in place and dressing in the surgical site clean dry and intact - EXTREMITIES: No edema. Peripheral puls es 2+. Non-tender. - NEUROLOGIC: No focal neurological defi cits. CN II-XII grossly intact. - PSYCHIATRIC: Awake, Alert and oriented x 3. Appropriate mood and affect. - SKIN: No rashes or lesions. Warm. - LYMPH: No cervical lymphadenopathy. Objective Data Vital Signs Vital Signs: Vital Signs - 24 hr 08/01/24 16:01 08/01/24 16:02 08/01/24 20:00 Temperature 98.2 F Pulse Rate 94 99 99 Respiratory Rate 16 20 Blood Pressure 142/74 H Pulse Oximetry 98 91 Oxygen Delivery Nasal Cannula Oxygen Flow Rate 2 Fraction of Inspired Oxygen 24 08/01/24 20:00 08/01/24 20:02 08/01/24 21:10 Temperature 99 F Pulse Rate 99 98 99 Respiratory Rate 18 20 Blood Pressure 126/60 Pulse Oximetry 95 91 Oxygen Delivery Nasal Cannula Oxygen Flow Rate 1 Fraction of Inspired Oxygen 08/02/24 00:00 08/02/24 04:00 08/02/24 06:00 Temperature 98.8 F Pulse Rate 100 85 91 Respiratory Rate 18 Blood Pressure 122/63 Pulse Oximetry 96 Oxygen Delivery Oxygen Flow Rate Fraction of Inspired Oxygen 08/02/24 07:59 08/02/24 08:30 08/02/24 08:44 Temperature Pulse Rate Respiratory Rate Blood Pressure Pulse Oximetry 90 Oxygen Delivery Room Air Room Air Room Air Oxygen Flow Rate Fraction of Inspired Oxygen 08/02/24 09:56 Temperature Pulse Rate 91 Respiratory Rate Blood Pressure Pulse Oximetry Oxygen Delivery Oxygen Flow Rate Fraction of Inspired Oxygen Intake/Output Intake/Output: Intake & Output 07/30/24 07/31/24 08/01/24 08/02/24 23:59 23:59 23:59 23:59 Intake Total 1940 1390 2095.0 100 Output Total 600 1430 560 250 Balance 1340 -40 1535.0 -150 Meds/Results Medications: Active Medications Generic Name Dose Route Start Last Admin Trade Name Freq PRN Reason Stop Dose Admin Acetaminophen 1,000 mg 07/22/24 08:52 08/01/24 20:26 Acetaminophen 500 Mg Tablet PO 1,000 mg Q6H PRN Administration Mild Pain (1-3) or Fever Amitriptyline HCl 20 mg 07/21/24 21:15 08/01/24 20:26 Amitriptyline Hcl 10 Mg Tablet PO 20 mg QHS [facility] Administration Amoxicillin/Clavulanate Potassium 1 tablet 08/02/24 21:00 Amoxicillin/Clavulanate K 875-125 Mg Tab PO Q12HR [facility] Atorvastatin Calcium 40 mg 07/21/24 21:15 08/01/24 20:26 Atorvastatin 40 Mg Tablet PO 40 mg QHS [facility] Administration Cyanocobalamin 500 mcg 07/22/24 09:00 08/02/24 09:56 Cyanocobalamin 500 Mcg Tablet PO 500 mcg QAM [facility] Administration Cyanocobalamin 2,000 mcg 07/22/24 09:00 08/02/24 09:56 Cyanocobalamin 1,000 Mcg Tablet PO 2,000 mcg QAM [facility] Administration Enoxaparin Sodium 40 mg 08/01/24 09:00 08/02/24 09:55 Enoxaparin 40 Mg/0.4 Ml Syringe SUB-Q 40 mg DAILY [facility] Administration Gabapentin 200 mg 07/22/24 09:00 08/02/24 09:56 Gabapentin 100 Mg Capsule PO 200 mg BID [facility] Administration Ketorolac Tromethamine 15 mg 07/25/24 13:23 08/02/24 08:49 Ketorolac 15 Mg/Ml Vial (*Bkc) IV PUSH 15 mg Q6H PRN Administration Pain Rated 4-6 Levothyroxine Sodium 25 mcg 07/22/24 06:30 08/02/24 05:43 Levothyroxine Sodium 25 Mcg Tablet PO 25 mcg DAILY@0630 [facility] Administration Metoprolol Succinate 50 mg 07/24/24 09:00 08/02/24 09:56 Metoprolol Succinate Ext Rel 50 Mg Tabcr PO 50 mg QAM [facility] Administration Morphine Sulfate 2 mg 07/30/24 22:38 07/30/24 23:22 Morphine Sulfate (*Crx) 2 Mg/Ml Inj IV PUSH 2 mg Q4H PRN Administration pain 7-10 Ondansetron HCl 4 mg 07/22/24 08:52 07/30/24 23:22 Ondansetron Inj 4 Mg/2 Ml Vial IV PUSH 4 mg Q6H PRN Administration Nausea And Vomiting Ondansetron HCl 4 mg 07/31/24 15:24 Ondansetron Inj 4 Mg/2 Ml Vial IV PUSH ONCE PRN Nausea Pantoprazole Sodium 40 mg 07/22/24 09:00 08/02/24 09:56 Pantoprazole 40 Mg Tablet PO 40 mg QAM MELISSA Administration Tamsulosin HCl 0.4 mg 07/22/24 09:00 08/02/24 09:56 Tamsulosin Hcl 0.4 Mg Capsule PO 0.4 mg DAILY MELISSA Administration Tramadol HCl 50 mg 08/02/24 09:21 Tramadol Hcl (*Crx) 50 Mg Tablet PO Q6H PRN Pain Rated 4-6 Radiology Results: ITS Impressions Abdomen/Pelvis CT 07/22/24 08:52 Impression: Percutaneous cholecystostomy tube in place with distended irregular gallbladder with marked irregular wall thickening and pericholecystic infarct or change, compatible with acute cholecystitis. Fluid-filled tract communicating with the gallbladder lumen at the superior aspect, which represents a tract related to prior cholecystostomy tube placement, with extension into the anterior abdominal wall. Additional suspected area of contained perforation at the inferior aspect of the gallbladder, which is new from prior exam. Acute L1 compression fracture, new from prior exam. Worsening T12 compression fracture as compared to prior exam with progressive loss of height. Cholecystostomy 07/23/24 14:08 IMPRESSION: 1. Successful upsizing to 12 Indonesian of a right upper quadrant percutaneous cholecystostomy tube. 2. Patent cystic and common bile ducts. Labs Labs: Laboratory Results - last 24 hr 08/02/24 05:28 WBC 9.7 RBC 2.86 L Hgb 8.1 L Hct 28.2 L MCV 98.6 MCH 28.3 MCHC 28.7 L RDW 15.9 H Plt Count 189 MPV 10.2 Sodium 137 Potassium 3.2 L Chloride 107 Carbon Dioxide 27 Anion Gap 3 L BUN 13 Creatinine 0.53 L Estim Creat Clear Calc 53 Estimated GFR > 60 Glucose 108 Calcium 8.3 L Magnesium 1.7 Total Bilirubin 0.3 AST 22 ALT 15 Alkaline Phosphatase 76 Total Protein 5.0 L Albumin 2.5 L
--- NOTE | 2024-08-02 15:41 | P.OP_ITS ---
Procedure Note - Detailed Date of Procedure 08/02/24 Pre-op Diagnosis Acute cholecystitis secondary to cholelithiasis Post-op Diagnosis Same Procedure Performed Robotic assisted laparoscopic non fenestrated subtotal cholecystectomy. Surgeon Caio Chester MD Anesthesia General Indications Patient is a very pleasant 84-year-old female who initially presented and was admitted to the hospital with acute cholecystitis secondary to cholelithiasis. At that time she was deemed to be high risk patient for surgery to take out the gallbladder given possible diagnosis of a myocardial infarction and stroke. Fortunately after further workup she was not found to have a car fraction or stroke. Because she was deemed to be high risk initially a cholecystostomy tube was placed to temporize the acute cholecystitis. She improved and was eventually discharged from the hospital with the cholecystostomy tube in place. However at home the cholecystostomy tube dislodged and a new 1 had to be placed. This was done by our interventional radiologist. She then finished a course of oral antibiotics and continued to have back pain and poor appetite and some right upper quadrant abdominal pain. The cholecystostomy tube was draining out purulent thick fluid. She was slowly deteriorating and a repeat CT scan abdomen pelvis was done showing probable duration of the gallbladder with severe acute on chronic cholecystitis secondary to cholelithiasis. She was admitted to the hospital and treated with IV antibiotics initially. Irrigation of the each day after was irrigated the next day she was draining pus again. It was decided after long conversations with the patient and her daughter that proceeding with a robotic assisted laparoscopic cholecystectomy with possible revision open cholecystectomy would be in the patient's best interest even though it was risky. They agreed to proceed with the surgery. Findings The patient had a severely inflamed gallbladder with a large cholecystostomy tube extending into the dome of the gallbladder. Initially the gallbladder could not even be seen as the omentum had completely enveloped the gallbladder. Once I was able to robotically dissect the omentum off of the gallbladder wall could tell that it was acutely inflamed with acute and chronic changes. Portions of the gallbladder wall were gangrenous and he could tell that the gallbladder had at some point perforated. Inflammation in the area of the infundibular gallbladder was severe and scarred in and so because of this I chose to perform a nonfenestrated subtotal cholecystectomy. The anterior wall the gallbladder was resected and all the gallstones were removed. The gallbladder remnant was closed to try to prevent bile leak. Description of Procedure After informed consent was obtained patient brought to the operating room she was placed supine position and then general endotracheal anesthesia was administered. A Alvarez catheter was placed decompress the bladder an orogastric tube was placed decompress the stomach. The abdomen was then prepped and draped usual sterile fashion. I 1st started by entering the abdomen left upper quadrant utilizing a 5mm Optiview port. Once inside the abdomen insufflated to adequate pneumoperitoneum of 15mmHg of CO2. There were no adhesions to the abdominal wall to obscure my view of the periumbilical region. I then placed a 8mm robotic trocar port below the umbilicus in the midline. I could then see the epigastric and right upper quadrant the abdomen and there was a lot of scarring of omentum to the liver and the gallbladder was completely enveloped the omentum. There was a tubular structure coming from the anterior abdominal wall to the gallbladder this was the large cholecystostomy tube in its fibrous tract. I had left the cholecystostomy tube in in place to me to the gallbladder if I could not identify the gallbladder completely. I then placed additional robotic trocar ports across the abdomen. The 5mm left upper trocar port was switched out to a 10mm trocar port. The robot was brought to the patient's bedside and docked. A robotic instruments advanced into the abdomen under direct visualization. I then scrubbed out and sat down the robotic console to perform the dissection. The patient had been injected with ICG prior to surgery and so I used firefly to identify bile fluorescence within the cholecystostomy tube tract and in the area within the omentum. Under firefly I very carefully dissected the omentum off of the gallbladder with robotic christian which were energized. I followed the tract of the cholecystostomy tube to the dome of the gallbladder. At this point I used the robotic sucker to bluntly dissect the omentum off of the anterior wall the gallbladder. The gallbladder wall was discontinuous in a couple places suggesting gangrenous cholecystitis previously and likely perforation of the gallbladder. Once I had dissected down to the infundibular gallbladder the scarring was pretty severe in this area and so I decided to perform a subtotal cholecystectomy rather than risk injury to the common bile duct. I then opened the gallbladder vertically from the dome where the cholecystostomy tube entered down to the infundibulum of the gallbladder. I then incised the anterior wall the gallbladder laterally and medially to the liver bed with the hook robotic cautery. The anterior wall was then resected at the level of the liver bed. Multiple black gallstones came out the gallbladder and these were crushed and suctioned up with the robotic sucker. The wall of the gallbladder was then placed into an Endo-Catch bag and brought out through the left upper quadrant trocar port site. Bile was draining out of the small infundibular remnant of the gallbladder. I was able to place my robotic security and compliance project manager into the infundibular gallbladder and irrigate to float out any remaining gallstones. I then proceeded to close the very small gallbladder remnant utilizing 2 separate 3-0 PDS sutures placed and sutured robotically. I then proceeded to fulgurate the posterior wall the gallbladder and cauterized the mucosa. Once this was done hemostasis was excellent. There was still a very small bile leak from the infundibular gallbladder. This was then treated attempt to stop the small leak with placement of a piece of Surgicel onto the area and then Tisseel topical hemostatic agent was placed onto the small piece of Surgicel in attempt to plug the small leak. I then proceeded to place a 15 [place] round Norberto drain in the area of the gallbladder fossa. This was brought out through the most lateral 8mm robotic trocar port site. It was then secured the skin with a 3-0 nylon suture. I then aspirated the fluid from the right upper quadrant the abdomen irrigated the gallbladder fossa 1 last time. Hemostasis was good. The small bile leak appeared to have stopped at this point. I then removed all the trocar ports under direct visualization all port sites appeared hemostatic. I then allowed the abdomen decompressed. I then irrigated all the port sites sterile saline solution. Hemostasis was good. I then closed all the port sites at the skin level utilizing a running subcuticular 4-0 Monocryl suture. The 15 [place] round Norberto drain in the right upper quadrant was then placed to inactive grenade bulb suction. Skin glue was placed on all the incisions and then a drain dressing was placed around the drain. The patient tolerated the procedure well no complications. All sponges, needles, and instrument counts were correct at the end procedure. EBL was _50__cc. The patient was awakened and taken to recovery in stable and satisfactory condition. Implants None Estimated Blood Loss 50 Urine Output 425 Drains Yes (15 [place] round Norberto drain right upper quadrant in the gallbladder fossa.) Packing No Pathology Yes (Anterior wall the gallbladder sent to pathology) Complications No immediate complications Condition Stable Disposition PACU [facility] Billing Surgery - Charge Forward: Surgery Billing
[2024-08-02] MEDS: AMITRIPTYLINE HCL 10 MG TABLET 20 MG PO (20:28)
[2024-08-02] MEDS: traMADol HCL (*CRX) 50 MG TABLET PO (20:28)
[2024-08-02] MEDS: AMOXICILLIN/CLAVULANATE K 875-125 MG TAB 1 TABLET PO (20:28)
[2024-08-02] MEDS: ATORVASTATIN 40 MG TABLET PO (20:29)
[2024-08-02] MEDS: ACETAMINOPHEN 500 MG TABLET 1000 MG PO (20:29)
[2024-08-03] VITALS (10 sets, daily range): BP systolic 124–148; BP diastolic 50–74; PULSE 60–107; RESP 16–18; TEMP 36.3–36.7; O2SAT 95–99
[2024-08-03] MEDS: KETOROLAC 15 MG/ML VIAL (*BKC) IV PUSH ×3 (00:14→16:15)
[2024-08-03 06:08] LABS: Hematocrit 28.5 % (37.0-47.0); Mean Corpuscular HGB Conc 28.1 g/dl (32-36); Mean Corpuscular Hemoglobin 28.4 pg (26-34); Mean Corpuscular Volume 101.1 fl (80-100); Mean Platelet Volume 10.3 fl (7.4-10.4); Platelet Count Result 182 k/mm3 (150-375); Red Blood Count 2.82 M/mm3 (4.2-5.4); Red Cell Distribution Width 15.9 % (11.5-14.5); White Blood Count 6.7 K/mm3 (4.5-10.0)
[2024-08-03] MEDS: LEVOTHYROXINE SODIUM 25 MCG TABLET PO (06:10)
[2024-08-03 06:41] LABS: Alanine Aminotransferase 15 U/L (6-35); Albumin Level 2.5 g/dL (3.5-5.1); Alkaline Phosphatase 74 U/L (38-126); Anion Gap 4 mmol/L (4-12); Aspartate Amino Transferase 20 U/L (14-36); Bilirubin,Total 0.2 mg/dL (0.2-1.3); Blood Urea Nitrogen 11 mg/dL (7-17); Calcium 8.2 mg/dL (8.4-10.2); Carbon Dioxide 25 mmol/L (22-30); Chloride 109 mmol/L (98-107); Estimated CRCL calculation 65 ml/min; Estimated Glomerular Filt Rate > 60; Glucose 87 mg/dL (65-110); Magnesium 1.8 mg/dL (1.6-2.3); Potassium 3.4 mmol/L (3.4-5.0); Sodium 138 mmol/L (137-145)
[2024-08-03] MEDS: METOPROLOL SUCCINATE EXT REL 50 MG TABCR PO (08:26)
[2024-08-03] MEDS: GABAPENTIN 100 MG CAPSULE 200 MG PO ×2 (08:26→16:15)
[2024-08-03] MEDS: AMOXICILLIN/CLAVULANATE K 875-125 MG TAB 1 TABLET PO ×2 (08:26→20:28)
[2024-08-03] MEDS: ENOXAPARIN 40 MG/0.4 ML SYRINGE SUB-Q (08:26)
[2024-08-03] MEDS: CYANOCOBALAMIN 500 MCG TABLET PO (08:26)
[2024-08-03] MEDS: CYANOCOBALAMIN 1,000 MCG TABLET 2000 MCG PO (08:26)
[2024-08-03] MEDS: TAMSULOSIN HCL 0.4 MG CAPSULE PO (08:27)
[2024-08-03] MEDS: PANTOPRAZOLE 40 MG TABLET PO (08:27)
--- NOTE | 2024-08-03 10:46 | P.PNIM_ITS ---
Progress Note: A&P Assessment and Plan (1) Essential hypertension: Code(s): I10 - Essential (primary) hypertension Status: Acute (2) Coronary artery disease involving [place] coronary artery of [place] heart: Code(s): I25.10 - Atherosclerotic heart disease of [place] coronary artery without angina pectoris Status: Acute (3) Acute cholecystitis: Code(s): K81.0 - Acute cholecystitis Status: Acute Plan Acute cholecystitis with calculus: Cholecystostomy tube 07/23 in IR. Continue have purulent discharge from the cholecystotomy tube Patient is on Zosyn 3.375 gm IVPB q 6. Management per general surgeon She is status post cholecystectomy 07/31/2024 Essential hypertension: Metoprolol Succinate 50 mg PO QAM. * Coronary artery disease: * Atorvastatin 40 mg PO QHS. Atrial fibrillation type: * Metoprolol Succinate 50 mg PO daily. * Lovenox 40 mg subq daily. * Telemetry. Eliquis on hold for possible surgical procedure Currently on Lovenox Hypothyroidism: * Levothyroxine 25 mcg PO daily. Gastroesophageal reflux disease: * Pantoprazole 40 mg PO QAM. T12 compression fracture: L1 compressoin fracture Wedge compression fracture of T11-T12 vertebra, initial encounter for closed fracture * Patient is followed by pain management and to have kyphoplasty, patient was supposed to have this week but ended up hospitalized. * TLSO ordered. * PT/OT No focal deficits no urinary fecal incontinence Severe protein-calorie malnutrition: * Protein 6.0. * Severe protein calorie malnutrition related to taste changes, poor appetite, nausea as evidenced by intakes <75% needs >1 month. Weight loss-15%/3 months: moderate fat loss, severe muscle wasting. * Ensure Enlive TID and Nutritional ice cream TID. * Finance Broker following. Hypomagnesemia: Replace and monitor Hypokalemia Replace and monitor * Trend level. Subjective Date/time seen: 08/03/24 10:46 Interval history: No new complaints. Working with therapy this a.m.. Denies shortness of breath or chest pain. Denies back pain. Review of Systems Review of Systems: All systems reviewed & are unremarkable except as noted in HPI and below Exam Narrative: GENERAL: Pleasant, in no acute distress. Well-nourished. - EYES: EOMI. Anicteric. - HENT: Moist mucous membranes. - LUNGS: Clear to auscultation bilateral ly, no wheezing, rhonchi, or rales. - CARDIOVASCULAR: Regular rate and rhyth m. No murmur. No JVD. - ABDOMEN: Soft, non-tender and non-dist ended. No palpable masses. SRAVAN drain in place and dressing in the surgical site clean dry and intact - EXTREMITIES: No edema. Peripheral puls es 2+. Non-tender. - NEUROLOGIC: No focal neurological defi cits. CN II-XII grossly intact. - PSYCHIATRIC: Awake, Alert and oriented x 3. Appropriate mood and affect. - SKIN: No rashes or lesions. Warm. - LYMPH: No cervical lymphadenopathy. Objective Data Vital Signs Vital Signs: Vital Signs - 24 hr 08/02/24 12:03 08/02/24 14:00 08/02/24 16:01 Temperature 97.8 F Pulse Rate 85 89 86 Respiratory Rate 18 Blood Pressure 132/60 Pulse Oximetry 93 Oxygen Delivery Fraction of Inspired Oxygen 08/02/24 20:00 08/02/24 20:00 08/03/24 00:00 Temperature Pulse Rate 86 88 87 Respiratory Rate 18 Blood Pressure Pulse Oximetry 93 Oxygen Delivery Room Air Fraction of Inspired Oxygen 21 08/03/24 04:00 08/03/24 06:00 08/03/24 08:00 Temperature 97.4 F L Pulse Rate 75 72 76 Respiratory Rate 18 Blood Pressure 124/50 L Pulse Oximetry 96 Oxygen Delivery Fraction of Inspired Oxygen 08/03/24 08:00 08/03/24 08:26 Temperature Pulse Rate 60 Respiratory Rate Blood Pressure Pulse Oximetry 96 Oxygen Delivery Room Air Fraction of Inspired Oxygen Intake/Output Intake/Output: Intake & Output 07/31/24 08/01/24 08/02/24 08/03/24 23:59 23:59 23:59 23:59 Intake Total 1390 2095.0 340 120 Output Total 1430 560 875 30 Balance -40 1535.0 -535 90 Meds/Results Medications: Active Medications Generic Name Dose Route Start Last Admin Trade Name Freq PRN Reason Stop Dose Admin Acetaminophen 1,000 mg 07/22/24 08:52 08/02/24 20:29 Acetaminophen 500 Mg Tablet PO 1,000 mg Q6H PRN Administration Mild Pain (1-3) or Fever Amitriptyline HCl 20 mg 07/21/24 21:15 08/02/24 20:28 Amitriptyline Hcl 10 Mg Tablet PO 20 mg QHS [facility] Administration Amoxicillin/Clavulanate Potassium 1 tablet 08/02/24 21:00 08/03/24 08:26 Amoxicillin/Clavulanate K 875-125 Mg Tab PO 1 tablet Q12HR [facility] Administration Atorvastatin Calcium 40 mg 07/21/24 21:15 08/02/24 20:29 Atorvastatin 40 Mg Tablet PO 40 mg QHS [facility] Administration Cyanocobalamin 500 mcg 07/22/24 09:00 08/03/24 08:26 Cyanocobalamin 500 Mcg Tablet PO 500 mcg QAM [facility] Administration Cyanocobalamin 2,000 mcg 07/22/24 09:00 08/03/24 08:26 Cyanocobalamin 1,000 Mcg Tablet [facility] [place] Enoxaparin Sodium 40 mg 08/01/24 09:00 08/03/24 08:26 Enoxaparin 40 Mg/0.4 Ml Syringe SUB-Q 40 mg DAILY [facility] Administration Gabapentin 200 mg 07/22/24 09:00 08/03/24 08:26 Gabapentin 100 Mg Capsule PO 200 mg BID [facility] Administration Ketorolac Tromethamine 15 mg 07/25/24 13:23 08/03/24 06:11 Ketorolac 15 Mg/Ml Vial (*Bkc) IV PUSH 15 mg Q6H PRN Administration Pain Rated 4-6 Levothyroxine Sodium 25 mcg 07/22/24 06:30 08/03/24 06:10 Levothyroxine Sodium 25 Mcg Tablet PO 25 mcg DAILY@0630 [facility] Administration Metoprolol Succinate 50 mg 07/24/24 09:00 08/03/24 08:26 Metoprolol Succinate Ext Rel 50 Mg Tabcr PO 50 mg QAM [facility] Administration Morphine Sulfate 2 mg 07/30/24 22:38 07/30/24 23:22 Morphine Sulfate (*Crx) 2 Mg/Ml Inj IV PUSH 2 mg Q4H PRN Administration pain 7-10 Ondansetron HCl 4 mg 07/22/24 08:52 07/30/24 23:22 Ondansetron Inj 4 Mg/2 Ml Vial IV PUSH 4 mg Q6H PRN Administration Nausea And Vomiting Ondansetron HCl 4 mg 07/31/24 15:24 Ondansetron Inj 4 Mg/2 Ml Vial IV PUSH ONCE PRN Nausea Pantoprazole Sodium 40 mg 07/22/24 09:00 08/03/24 08:27 Pantoprazole 40 Mg Tablet PO 40 mg QAM [facility] Administration Tamsulosin HCl 0.4 mg 07/22/24 09:00 08/03/24 08:27 Tamsulosin Hcl 0.4 Mg Capsule PO 0.4 mg DAILY [facility] Administration Tramadol HCl 50 mg 08/02/24 09:21 08/02/24 20:28 Tramadol Hcl (*Crx) 50 Mg Tablet PO 50 mg Q6H PRN Administration Pain Rated 4-6 Radiology Results: ITS Impressions Abdomen/Pelvis CT 07/22/24 08:52 Impression: Percutaneous cholecystostomy tube in place with distended irregular gallbladder with marked irregular wall thickening and pericholecystic infarct or change, compatible with acute cholecystitis. Fluid-filled tract communicating with the gallbladder lumen at the superior aspect, which represents a tract related to prior cholecystostomy tube placement, with extension into the anterior abdominal wall. Additional suspected area of contained perforation at the inferior aspect of the gallbladder, which is new from prior exam. Acute L1 compression fracture, new from prior exam. Worsening T12 compression fracture as compared to prior exam with progressive loss of height. Cholecystostomy 07/23/24 14:08 IMPRESSION: 1. Successful upsizing to 12 [place] of a right upper quadrant percutaneous cholecystostomy tube. 2. Patent cystic and common bile ducts. Labs Labs: Laboratory Results - last 24 hr 08/03/24 05:06 WBC 6.7 RBC 2.82 L Hgb 8.0 L Hct 28.5 L MCV 101.1 H MCH 28.4 MCHC 28.1 L RDW 15.9 H Plt Count 182 MPV 10.3 Sodium 138 Potassium 3.4 Chloride 109 H Carbon Dioxide 25 Anion Gap 4 BUN 11 Creatinine 0.42 L Estim Creat Clear Calc 65 Estimated GFR > 60 Glucose 87 Calcium 8.2 L Magnesium 1.8 Total Bilirubin 0.2 AST 20 ALT 15 Alkaline Phosphatase 74 Total Protein 5.0 L Albumin 2.5 L
[2024-08-03] MEDS: traMADol HCL (*CRX) 50 MG TABLET PO (11:27)
[2024-08-03] MEDS: POTASSIUM CHLORIDE 20 MEQ ER TABLET 40 MEQ PO (11:29)
--- NOTE | 2024-08-03 14:02 | P.PNGS_ITS ---
Progress Note: A&P Assessment and Plan (1) Acute cholecystitis: Code(s): K81.0 - Acute cholecystitis Status: Acute Assessment and Plan: * Postop day 3 after robotic assisted laparoscopic subtotal nonfenestrated cholecystectomy. She appears to have very small bile leak. Output is very minimal but is slightly bile tinged. Will continue to monitor the SRAVAN drain and will likely be discharged with the SRAVAN drain. WBC count remains normal. She was transitioned to oral antibiotics yesterday. Plan to continue the Augmentin x 1 week. * Continue low fat diet, encouraged oral intake. * PT/OT following and recommending another day of therapy, but hopefully we can discharge her home with home health tomorrow if she continues to improve and is tolerating a diet. (2) Severe protein-calorie malnutrition: Code(s): E43 - Unspecified severe protein-calorie malnutrition Status: Acute Assessment and Plan: * Not eating much today. Still poor appetite. Encouraged p.o. intake, and will continue nutritional supplements. Plan I have discussed the patient's case and plan of care with Dr. Chester. Subjective Subjective Date/Time Seen: 08/03/24 14:02 Post Op day: 3 Patient reports: flatus and bowel movement Interval history: Patient seen today with her daughter at the bedside. She denies nausea or abdominal pain, but has no appetite. She ate well yesterday during breakfast and lunch (>80% of her meals), but did not eat dinner last night or breakfast this morning. Her daughter states she eats like this at home sometimes as well. She has had improvement in her back pain since surgery. She has some back pain after getting into bed earlier this morning, but denies any pain at this time. Exam Const: General: no acute distress Orientation/consciousness: patient oriented x3 GI: Inspection: non-distended GI Palp: Yes Soft to palpation, No Tenderness to palpation present (GI), No Guarding due to palpation present (GI) and No Rebound tenderness present Auscultation: normal bowel sounds Other: Port site incisions healing well with glue intact, no erythema or drainage RUQ SRAVAN drain with scant bile-tinged bloody drainage Objective Data Vital Signs Vital Signs: Vital Signs - 24 hr 08/02/24 16:01 08/02/24 20:00 08/02/24 20:00 Temperature Pulse Rate 86 86 88 Respiratory Rate 18 Blood Pressure Pulse Oximetry 93 Oxygen Delivery Room Air Fraction of Inspired Oxygen 21 08/03/24 00:00 08/03/24 04:00 08/03/24 06:00 Temperature 97.4 F L Pulse Rate 87 75 72 Respiratory Rate 18 Blood Pressure 124/50 L Pulse Oximetry 96 Oxygen Delivery Fraction of Inspired Oxygen 08/03/24 08:00 08/03/24 08:00 08/03/24 08:26 Temperature Pulse Rate 76 60 Respiratory Rate Blood Pressure Pulse Oximetry 96 Oxygen Delivery Room Air Fraction of Inspired Oxygen 08/03/24 12:00 Temperature Pulse Rate 95 Respiratory Rate Blood Pressure Pulse Oximetry Oxygen Delivery Fraction of Inspired Oxygen Intake/Output Intake/Output: Intake & Output 07/31/24 08/01/24 08/02/24 08/03/24 23:59 23:59 23:59 23:59 Intake Total 1390 2095.0 340 238 Output Total 1430 560 875 30 Balance -40 1535.0 -535 208 Meds/Results Medications: Active Medications Generic Name Dose Route Start Last Admin Trade Name Freq PRN Reason Stop Dose Admin Acetaminophen 1,000 mg 07/22/24 08:52 08/02/24 20:29 Acetaminophen 500 Mg Tablet PO 1,000 mg Q6H PRN Administration Mild Pain (1-3) or Fever Amitriptyline HCl 20 mg 07/21/24 21:15 08/02/24 20:28 Amitriptyline Hcl 10 Mg Tablet PO 20 mg QHS [facility] Administration Amoxicillin/Clavulanate Potassium 1 tablet 08/02/24 21:00 08/03/24 08:26 Amoxicillin/Clavulanate K 875-125 Mg Tab PO 1 tablet Q12HR [facility] Administration Atorvastatin Calcium 40 mg 07/21/24 21:15 08/02/24 20:29 Atorvastatin 40 Mg Tablet PO 40 mg QHS [facility] Administration Cyanocobalamin 500 mcg 07/22/24 09:00 08/03/24 08:26 Cyanocobalamin 500 Mcg Tablet PO 500 mcg QAM [facility] Administration Cyanocobalamin 2,000 mcg 07/22/24 09:00 08/03/24 08:26 Cyanocobalamin 1,000 Mcg Tablet PO 2,000 mcg QAM [facility] Administration Enoxaparin Sodium 40 mg 08/01/24 09:00 08/03/24 08:26 Enoxaparin 40 Mg/0.4 Ml Syringe SUB-Q 40 mg DAILY [facility] Administration Gabapentin 200 mg 07/22/24 09:00 08/03/24 08:26 Gabapentin 100 Mg Capsule PO 200 mg BID [facility] Administration Ketorolac Tromethamine 15 mg 07/25/24 13:23 08/03/24 06:11 Ketorolac 15 Mg/Ml Vial (*Bkc) IV PUSH 15 mg Q6H PRN Administration Pain Rated 4-6 Levothyroxine Sodium 25 mcg 07/22/24 06:30 08/03/24 06:10 Levothyroxine Sodium 25 Mcg Tablet PO 25 mcg DAILY@0630 [facility] Administration Metoprolol Succinate 50 mg 07/24/24 09:00 08/03/24 08:26 Metoprolol Succinate Ext Rel 50 Mg Tabcr PO 50 mg QAM [facility] Administration Morphine Sulfate 2 mg 07/30/24 22:38 07/30/24 23:22 Morphine Sulfate (*Crx) 2 Mg/Ml Inj IV PUSH 2 mg Q4H PRN Administration pain 7-10 Ondansetron HCl 4 mg 07/22/24 08:52 07/30/24 23:22 Ondansetron Inj 4 Mg/2 Ml Vial IV PUSH 4 mg Q6H PRN Administration Nausea And Vomiting Ondansetron HCl 4 mg 07/31/24 15:24 Ondansetron Inj 4 Mg/2 Ml Vial IV PUSH ONCE PRN Nausea Pantoprazole Sodium 40 mg 07/22/24 09:00 08/03/24 08:27 Pantoprazole 40 Mg Tablet PO 40 mg QAM [facility] Administration Tamsulosin HCl 0.4 mg 07/22/24 09:00 08/03/24 08:27 Tamsulosin Hcl 0.4 Mg Capsule PO 0.4 mg DAILY [facility] Administration Tramadol HCl 50 mg 08/02/24 09:21 08/03/24 11:27 Tramadol Hcl (*Crx) 50 Mg Tablet PO 50 mg Q6H PRN Administration Pain Rated 4-6 Radiology Results: ITS Impressions Abdomen/Pelvis CT 07/22/24 08:52 Impression: Percutaneous cholecystostomy tube in place with distended irregular gallbladder with marked irregular wall thickening and pericholecystic infarct or change, compatible with acute cholecystitis. Fluid-filled tract communicating with the gallbladder lumen at the superior aspect, which represents a tract related to prior cholecystostomy tube placement, with extension into the anterior abdominal wall. Additional suspected area of contained perforation at the inferior aspect of the gallbladder, which is new from prior exam. Acute L1 compression fracture, new from prior exam. Worsening T12 compression fracture as compared to prior exam with progressive loss of height. Cholecystostomy 07/23/24 14:08 IMPRESSION: 1. Successful upsizing to 12 [place] of a right upper quadrant percutaneous cholecystostomy tube. 2. Patent cystic and common bile ducts. Labs Labs: Laboratory Results - last 24 hr 08/03/24 05:06 WBC 6.7 RBC 2.82 L Hgb 8.0 L Hct 28.5 L MCV 101.1 H MCH 28.4 MCHC 28.1 L RDW 15.9 H Plt Count 182 MPV 10.3 Sodium 138 Potassium 3.4 Chloride 109 H Carbon Dioxide 25 Anion Gap 4 BUN 11 Creatinine 0.42 L Estim Creat Clear Calc 65 Estimated GFR > 60 Glucose 87 Calcium 8.2 L Magnesium 1.8 Total Bilirubin 0.2 AST 20 ALT 15 Alkaline Phosphatase 74 Total Protein 5.0 L Albumin 2.5 L
[2024-08-03] MEDS: AMITRIPTYLINE HCL 10 MG TABLET 20 MG PO (20:28)
[2024-08-03] MEDS: ATORVASTATIN 40 MG TABLET PO (20:28)
[2024-08-04] VITALS (10 sets, daily range): BP systolic 123–143; BP diastolic 63–76; PULSE 74–99; RESP 18; TEMP 36.4–36.8; O2SAT 96–100
[2024-08-04 06:17] LABS: Basophils Percent Auto 0.2 % (0.2-1.2); Eosinophils Absolute Auto 0.5 K/mm3 (0-0.3); Hematocrit 27.6 % (37.0-47.0); Hemoglobin 8.2 g/dL (12.0-15.0); Immature Granulocyte Absolute 0.03 K/mm3 (0.00-0.031); Immature Granulocyte Percent A 0.3 % (0-0.5); Lymphocytes Absolute Auto 2.07 K/mm3 (0.9-3.2); Lymphocytes Percent Auto 20.3 % (18.3-44.2); Mean Corpuscular HGB Conc 29.7 g/dl (32-36); Mean Corpuscular Hemoglobin 28.5 pg (26-34); Mean Corpuscular Volume 95.8 fl (80-100); Mean Platelet Volume 10.4 fl (7.4-10.4); Monocytes Absolute Auto 0.6 K/mm3 (0.1-0.6); Monocytes Percent Auto 5.5 % (2.6-8.5); Neutrophils Percent Auto 68.7 % (45.5-73.1); Platelet Count Result 223 k/mm3 (150-375); Red Blood Count 2.88 M/mm3 (4.2-5.4); Red Cell Distribution Width 15.6 % (11.5-14.5); White Blood Count 10.2 K/mm3 (4.5-10.0)
[2024-08-04 06:29] LABS: Alanine Aminotransferase 15 U/L (6-35); Albumin Level 2.7 g/dL (3.5-5.1); Alkaline Phosphatase 94 U/L (38-126); Anion Gap 5 mmol/L (4-12); Aspartate Amino Transferase 20 U/L (14-36); Bilirubin,Total 0.3 mg/dL (0.2-1.3); Blood Urea Nitrogen 8 mg/dL (7-17); Calcium 8.4 mg/dL (8.4-10.2); Carbon Dioxide 24 mmol/L (22-30); Chloride 105 mmol/L (98-107); Estimated CRCL calculation 78 ml/min; Estimated Glomerular Filt Rate > 60; Glucose 110 mg/dL (65-110); Magnesium 1.5 mg/dL (1.6-2.3); Potassium 4.2 mmol/L (3.4-5.0); Sodium 134 mmol/L (137-145)
[2024-08-04] MEDS: LEVOTHYROXINE SODIUM 25 MCG TABLET PO (06:37)
[2024-08-04 06:41] LABS: Hypochromasia 1+; Platelet Estimate Adequate (Adequate)
[2024-08-04 06:42] LABS: Schistocytes None Seen
[2024-08-04] MEDS: MAGNESIUM SULF 2 GM/WATER 50ML 2 GM/50 ML BAG IVPB (08:26)
[2024-08-04] MEDS: ACETAMINOPHEN 500 MG TABLET 1000 MG PO ×2 (09:00→22:25)
[2024-08-04] MEDS: CYANOCOBALAMIN 1,000 MCG TABLET 2000 MCG PO (09:01)
[2024-08-04] MEDS: AMOXICILLIN/CLAVULANATE K 875-125 MG TAB 1 TABLET PO ×2 (09:01→22:25)
[2024-08-04] MEDS: CYANOCOBALAMIN 500 MCG TABLET PO (09:01)
[2024-08-04] MEDS: PANTOPRAZOLE 40 MG TABLET PO (09:02)
[2024-08-04] MEDS: TAMSULOSIN HCL 0.4 MG CAPSULE PO (09:02)
[2024-08-04] MEDS: METOPROLOL SUCCINATE EXT REL 50 MG TABCR PO (09:02)
[2024-08-04] MEDS: GABAPENTIN 100 MG CAPSULE 200 MG PO ×2 (09:02→16:48)
[2024-08-04] MEDS: ENOXAPARIN 40 MG/0.4 ML SYRINGE SUB-Q (09:02)
--- NOTE | 2024-08-04 11:26 | P.PNIM_ITS ---
Progress Note: A&P Assessment and Plan (1) Essential hypertension: Code(s): I10 - Essential (primary) hypertension Status: Acute (2) Coronary artery disease involving ruby coronary artery of ruby heart: Code(s): I25.10 - Atherosclerotic heart disease of ruby coronary artery without angina pectoris Status: Acute (3) Acute cholecystitis: Code(s): K81.0 - Acute cholecystitis Status: Acute Plan Acute cholecystitis with calculus: Cholecystostomy tube 07/23 in IR. Continue have purulent discharge from the cholecystotomy tube Patient is on Zosyn 3.375 gm IVPB q 6. Management per general surgeon She is status post cholecystectomy 07/31/2024 Essential hypertension: Metoprolol Succinate 50 mg PO QAM. * Coronary artery disease: * Atorvastatin 40 mg PO QHS. Atrial fibrillation type: * Metoprolol Succinate 50 mg PO daily. * Lovenox 40 mg subq daily. * Telemetry. Eliquis on hold for possible surgical procedure Currently on Lovenox Hypothyroidism: * Levothyroxine 25 mcg PO daily. Gastroesophageal reflux disease: * Pantoprazole 40 mg PO QAM. Pleuritic chest pain will check chest x-ray. On right side this could be from recent gallbladder surgery as well. Pain control with Tylenol p.r.n. tramadol p.r.n. add incentive spirometry. Continue to monitor T12 compression fracture: L1 compressoin fracture Wedge compression fracture of T11-T12 vertebra, initial encounter for closed fracture * Patient is followed by pain management and to have kyphoplasty, patient was supposed to have this week but ended up hospitalized. * TLSO ordered. * PT/OT No focal deficits no urinary fecal incontinence Severe protein-calorie malnutrition: * Protein 6.0. * Severe protein calorie malnutrition related to taste changes, poor appetite, nausea as evidenced by intakes <75% needs >1 month. Weight loss-15%/3 months: moderate fat loss, severe muscle wasting. * Ensure Enlive TID and Nutritional ice cream TID. * Machine Maintenance following. Hypomagnesemia: Replace and monitor Hypokalemia Replace and monitor * Trend level. Subjective Date/time seen: 08/04/24 11:26 Interval history: Patient complains of pain when she takes deep breath. No nausea vomiting denies any shortness of breath no cough. Review of Systems Review of Systems: All systems reviewed & are unremarkable except as noted in HPI and below Exam Narrative: GENERAL: Pleasant, in no acute distress. Well-nourished. - EYES: EOMI. Anicteric. - HENT: Moist mucous membranes. - LUNGS: Clear to auscultation bilateral ly, no wheezing, rhonchi, or rales. - CARDIOVASCULAR: Regular rate and rhyth m. No murmur. No JVD. - ABDOMEN: Soft, non-tender and non-dist ended. No palpable masses. SRAVAN drain in place and dressing in the surgical site clean dry and intact - EXTREMITIES: No edema. Peripheral puls es 2+. Non-tender. - NEUROLOGIC: No focal neurological defi cits. CN II-XII grossly intact. - PSYCHIATRIC: Awake, Alert and oriented x 3. Appropriate mood and affect. - SKIN: No rashes or lesions. Warm. - LYMPH: No cervical lymphadenopathy. Objective Data Vital Signs Vital Signs: Vital Signs - 24 hr 08/03/24 12:00 08/03/24 15:46 08/03/24 16:00 Temperature 97.7 F Pulse Rate 95 107 H 107 H Respiratory Rate 18 Blood Pressure 148/62 H Pulse Oximetry 99 Oxygen Delivery 08/03/24 20:00 08/03/24 20:10 08/04/24 00:00 Temperature 98.1 F Pulse Rate 97 97 99 Respiratory Rate 16 Blood Pressure 146/74 H Pulse Oximetry 95 Oxygen Delivery 08/04/24 04:00 08/04/24 05:47 08/04/24 08:00 Temperature 97.8 F Pulse Rate 89 85 Respiratory Rate 18 Blood Pressure 143/68 H Pulse Oximetry 96 96 Oxygen Delivery Room Air 08/04/24 08:00 08/04/24 09:02 Temperature Pulse Rate 82 80 Respiratory Rate Blood Pressure Pulse Oximetry Oxygen Delivery Intake/Output Intake/Output: Intake & Output 08/01/24 08/02/24 08/03/24 08/04/24 23:59 23:59 23:59 23:59 Intake Total 2095.0 340 715 907 Output Total 560 875 299 591 Balance 1535.0 -535 416 316 Meds/Results Medications: Active Medications Generic Name Dose Route Start Last Admin Trade Name Freq PRN Reason Stop Dose Admin Acetaminophen 1,000 mg 07/22/24 08:52 08/04/24 09:00 Acetaminophen 500 Mg Tablet PO 1,000 mg Q6H PRN Administration Mild Pain (1-3) or Fever Amitriptyline HCl 20 mg 07/21/24 21:15 08/03/24 20:28 Amitriptyline Hcl 10 Mg Tablet PO 20 mg QHS [facility] Administration Amoxicillin/Clavulanate Potassium 1 tablet 08/02/24 21:00 08/04/24 09:01 Amoxicillin/Clavulanate K 875-125 Mg Tab PO 1 tablet Q12HR [facility] Administration Atorvastatin Calcium 40 mg 07/21/24 21:15 08/03/24 20:28 Atorvastatin 40 Mg Tablet PO 40 mg QHS [facility] Administration Cyanocobalamin 500 mcg 07/22/24 09:00 08/04/24 09:01 Cyanocobalamin 500 Mcg Tablet PO 500 mcg QAM [facility] Administration Cyanocobalamin 2,000 mcg 07/22/24 09:00 08/04/24 09:01 Cyanocobalamin 1,000 Mcg Tablet PO 2,000 mcg QAM [facility] Administration Enoxaparin Sodium 40 mg 08/01/24 09:00 08/04/24 09:02 Enoxaparin 40 Mg/0.4 Ml Syringe SUB-Q 40 mg DAILY [facility] Administration Gabapentin 200 mg 07/22/24 09:00 08/04/24 09:02 Gabapentin 100 Mg Capsule PO 200 mg BID [facility] Administration Ketorolac Tromethamine 15 mg 07/25/24 13:23 08/03/24 16:15 Ketorolac 15 Mg/Ml Vial (*Bkc) IV PUSH 15 mg Q6H PRN Administration Pain Rated 4-6 Levothyroxine Sodium 25 mcg 07/22/24 06:30 08/04/24 06:37 Levothyroxine Sodium 25 Mcg Tablet PO 25 mcg DAILY@0630 [facility] Administration Metoprolol Succinate 50 mg 07/24/24 09:00 08/04/24 09:02 Metoprolol Succinate Ext Rel 50 Mg Tabcr PO 50 mg QAM [facility] Administration Morphine Sulfate 2 mg 07/30/24 22:38 07/30/24 23:22 Morphine Sulfate (*Crx) 2 Mg/Ml Inj IV PUSH 2 mg Q4H PRN Administration pain 7-10 Ondansetron HCl 4 mg 07/22/24 08:52 07/30/24 23:22 Ondansetron Inj 4 Mg/2 Ml Vial IV PUSH 4 mg Q6H PRN Administration Nausea And Vomiting Ondansetron HCl 4 mg 07/31/24 15:24 Ondansetron Inj 4 Mg/2 Ml Vial IV PUSH ONCE PRN Nausea Pantoprazole Sodium 40 mg 07/22/24 09:00 08/04/24 09:02 Pantoprazole 40 Mg Tablet PO 40 mg QAM [facility] Administration Tamsulosin HCl 0.4 mg 07/22/24 09:00 08/04/24 09:02 Tamsulosin Hcl 0.4 Mg Capsule PO 0.4 mg DAILY [facility] Administration Tramadol HCl 50 mg 08/02/24 09:21 08/03/24 11:27 Tramadol Hcl (*Crx) 50 Mg Tablet PO 50 mg Q6H PRN Administration Pain Rated 4-6 Radiology Results: ITS Impressions Abdomen/Pelvis CT 07/22/24 08:52 Impression: Percutaneous cholecystostomy tube in place with distended irregular gallbladder with marked irregular wall thickening and pericholecystic infarct or change, compatible with acute cholecystitis. Fluid-filled tract communicating with the gallbladder lumen at the superior aspect, which represents a tract related to pr ior cholecystostomy tube placement, with extension into the anterior abdominal wall. Additional suspected area of contained perforation at the inferior aspect of the gallbladder, which is new from prior exam. Acute L1 compression fracture, new from prior exam. Worsening T12 compression fracture as compared to prior exam with progressive loss of height. Cholecystostomy 07/23/24 14:08 IMPRESSION: 1. Successful upsizing to 12 Greek of a right upper quadrant percutaneous cholecystostomy tube. 2. Patent cystic and common bile ducts. Labs Labs: Laboratory Results - last 24 hr 08/04/24 05:25 WBC 10.2 H RBC 2.88 L Hgb 8.2 L Hct 27.6 L MCV 95.8 D MCH 28.5 MCHC 29.7 L RDW 15.6 H Plt Count 223 MPV 10.4 Immature Gran % (Auto) 0.3 Neut % (Auto) 68.7 Lymph % (Auto) 20.3 [place] % (Auto) 5.5 Eos % (Auto) 5.0 H Baso % (Auto) 0.2 Lymph # (Auto) 2.07 [place] # (Auto) 0.6 Eos # (Auto) 0.5 H Baso # (Auto) 0.0 Abs Immat Gran (auto) 0.03 Absolute Neuts (auto) 7.0 H Absolute Nucleated RBC 0.000 Band Neutrophils % Not Reportable Nucleated RBC % 0.0 Platelet Estimate Adequate Hypochromasia 1+ Schistocytes None seen Sodium 134 L Potassium 4.2 Chloride 105 Carbon Dioxide 24 Anion Gap 5 BUN 8 Creatinine 0.34 L Estim Creat Clear Calc 78 Estimated GFR > 60 Glucose 110 Calcium 8.4 Magnesium 1.5 L Total Bilirubin 0.3 AST 20 ALT 15 Alkaline Phosphatase 94 Total Protein 6.0 L Albumin 2.7 L
--- NOTE | 2024-08-04 13:25 | PM.PNGS ---
Progress Note: A&P Assessment and Plan (1) Acute cholecystitis: Code(s): K81.0 - Acute cholecystitis Status: Acute Assessment and Plan: Postop day 4 after robotic assisted laparoscopic subtotal nonfenestrated cholecystectomy. She appears to have very small bile leak, still with minimal output from SRAVAN drain. We will continue to monitor this area. Her WBC count did go up slightly to 10.2 today, she is slightly lethargic, and is complaining of a cough. Her abdominal exam is benign and she has no abdominal complaints. Hospitalist has ordered a CXR. I will also add a UA since she also had a Alvarez catheter after surgery. Continue Augmentin for now. Will repeat labs again tomorrow and follow closely. Continue to encourage oral intake, she is tolerating a low fat diet, but poor appetite. Continue PT/OT and eventually the plan will be for her to return home with her daughter and home health once stable. (2) Severe protein-calorie malnutrition: Code(s): E43 - Unspecified severe protein-calorie malnutrition Status: Acute Assessment and Plan: Encouraged p.o. intake, and will continue nutritional supplements. Plan I have discussed the patient's case and plan of care with Dr. Chester. Subjective Subjective Date/Time Seen: 08/04/24 13:25 Post Op day: 4 Patient reports: flatus and bowel movement Interval history: Patient is seen with her daughter at the bedside. She reports overall “not feeling well today.” She had chills and generalized malaise yesterday. She reports now having a nonproductive cough that has been more persistent this morning. She reports having some pain in her chest when taking a deep breath. She denies any abdominal pain. Still not much of an appetite, but no nausea or vomiting. Still not much out of the SRAVAN drain with 35 cc over the last 24 hours. Exam Const: General: comfortable and no acute distress Resp: Effort & Inspection: normal respiratory effort Auscultation: clear to auscultation bilaterally Cardio: Rate: regular rate Rhythm: regular rhythm GI: Inspection: non-distended GI Palp: Yes Soft to palpation, No Tenderness to palpation present (GI), No Guarding due to palpation present (GI) and No Rebound tenderness present Auscultation: normal bowel sounds Other: Port site incisions healing well with glue intact, no erythema or drainage RUQ SRAVAN drain with scant bile-tinged bloody drainage Extrem: General: no calf tenderness and no edema Objective Data Vital Signs Vital Signs: Vital Signs - 24 hr 08/03/24 15:46 08/03/24 16:00 08/03/24 20:00 Temperature 97.7 F Pulse Rate 107 H 107 H 97 Respiratory Rate 18 Blood Pressure 148/62 H Pulse Oximetry 99 Oxygen Delivery 08/03/24 20:10 08/04/24 00:00 08/04/24 04:00 Temperature 98.1 F Pulse Rate 97 99 89 Respiratory Rate 16 Blood Pressure 146/74 H Pulse Oximetry 95 Oxygen Delivery 08/04/24 05:47 08/04/24 08:00 08/04/24 08:00 Temperature 97.8 F Pulse Rate 85 82 Respiratory Rate 18 Blood Pressure 143/68 H Pulse Oximetry 96 96 Oxygen Delivery Room Air 08/04/24 09:02 08/04/24 12:00 Temperature Pulse Rate 80 74 Respiratory Rate Blood Pressure Pulse Oximetry Oxygen Delivery Intake/Output Intake/Output: Intake & Output 08/01/24 08/02/24 08/03/24 08/04/24 23:59 23:59 23:59 23:59 Intake Total 2095.0 340 715 907 Output Total 560 875 299 591 Balance 1535.0 -535 416 316 Meds/Results Medications: Active Medications Generic Name Dose Route Start Last Admin Trade Name Freq PRN Reason Stop Dose Admin Acetaminophen 1,000 mg 07/22/24 08:52 08/04/24 09:00 Acetaminophen 500 Mg Tablet PO 1,000 mg Q6H PRN Administration Mild Pain (1-3) or Fever Amitriptyline HCl 20 mg 07/21/24 21:15 08/03/24 20:28 Amitriptyline Hcl 10 Mg Tablet PO 20 mg QHS [facility] Administration Amoxicillin/Clavulanate Potassium 1 tablet 08/02/24 21:00 08/04/24 09:01 Amoxicillin/Clavulanate K 875-125 Mg Tab PO 1 tablet Q12HR [facility] Administration Atorvastatin Calcium 40 mg 07/21/24 21:15 08/03/24 20:28 Atorvastatin 40 Mg Tablet PO 40 mg QHS [facility] Administration Cyanocobalamin 500 mcg 07/22/24 09:00 08/04/24 09:01 Cyanocobalamin 500 Mcg Tablet PO 500 mcg QAM [facility] Administration Cyanocobalamin 2,000 mcg 07/22/24 09:00 08/04/24 09:01 Cyanocobalamin 1,000 Mcg Tablet PO 2,000 mcg QAM [facility] Administration Enoxaparin Sodium 40 mg 08/01/24 09:00 08/04/24 09:02 Enoxaparin 40 Mg/0.4 Ml Syringe SUB-Q 40 mg DAILY [facility] Administration Gabapentin 200 mg 07/22/24 09:00 08/04/24 09:02 Gabapentin 100 Mg Capsule PO 200 mg BID [facility] Administration Ketorolac Tromethamine 15 mg 07/25/24 13:23 08/03/24 16:15 Ketorolac 15 Mg/Ml Vial (*Bkc) IV PUSH 15 mg Q6H PRN Administration Pain Rated 4-6 Levothyroxine Sodium 25 mcg 07/22/24 06:30 08/04/24 06:37 Levothyroxine Sodium 25 Mcg Tablet PO 25 mcg DAILY@0630 [facility] Administration Metoprolol Succinate 50 mg 07/24/24 09:00 08/04/24 09:02 Metoprolol Succinate Ext Rel 50 Mg Tabcr PO 50 mg QAM [facility] Administration Morphine Sulfate 2 mg 07/30/24 22:38 07/30/24 23:22 Morphine Sulfate (*Crx) 2 Mg/Ml Inj IV PUSH 2 mg Q4H PRN Administration pain 7-10 Ondansetron HCl 4 mg 07/22/24 08:52 07/30/24 23:22 Ondansetron Inj 4 Mg/2 Ml Vial IV PUSH 4 mg Q6H PRN Administration Nausea And Vomiting Ondansetron HCl 4 mg 07/31/24 15:24 Ondansetron Inj 4 Mg/2 Ml Vial IV PUSH ONCE PRN Nausea Pantoprazole Sodium 40 mg 07/22/24 09:00 08/04/24 09:02 Pantoprazole 40 Mg Tablet PO 40 mg QAM [facility] Administration Tamsulosin HCl 0.4 mg 07/22/24 09:00 08/04/24 09:02 Tamsulosin Hcl 0.4 Mg Capsule PO 0.4 mg DAILY [facility] Administration Tramadol HCl 50 mg 08/02/24 09:21 08/03/24 11:27 Tramadol Hcl (*Crx) 50 Mg Tablet PO 50 mg Q6H PRN Administration Pain Rated 4-6 Radiology Results: ITS Impressions Abdomen/Pelvis CT 07/22/24 08:52 Impression: Percutaneous cholecystostomy tube in place with distended irregular gallbladder with marked irregular wall thickening and pericholecystic infarct or change, compatible with acute cholecystitis. Fluid-filled tract communicating with the gallbladder lumen at the superior aspect, which represents a tract related to prior cholecystostomy tube placement, with extension into the anterior abdominal wall. Additional suspected area of contained perforation at the inferior aspect of the gallbladder, which is new from prior exam. Acute L1 compression fracture, new from prior exam. Worsening T12 compression fracture as compared to prior exam with progressive loss of height. Cholecystostomy 07/23/24 14:08 IMPRESSION: 1. Successful upsizing to 12 [place] of a right upper quadrant percutaneous cholecystostomy tube. 2. Patent cystic and common bile ducts. Labs Labs: Laboratory Results - last 24 hr 08/04/24 05:25 WBC 10.2 H RBC 2.88 L Hgb 8.2 L Hct 27.6 L MCV 95.8 D MCH 28.5 MCHC 29.7 L RDW 15.6 H Plt Count 223 MPV 10.4 Immature Gran % (Auto) 0.3 Neut % (Auto) 68.7 Lymph % (Auto) 20.3 [place] % (Auto) 5.5 Eos % (Auto) 5.0 H Baso % (Auto) 0.2 Lymph # (Auto) 2.07 [place] # (Auto) 0.6 Eos # (Auto) 0.5 H Baso # (Auto) 0.0 Abs Immat Gran (auto) 0.03 Absolute Neuts (auto) 7.0 H Absolute Nucleated RBC 0.000 Band Neutrophils % Not Reportable Nucleated RBC % 0.0 Platelet Estimate Adequate Hypochromasia 1+ Schistocytes None seen Sodium 134 L Potassium 4.2 Chloride 105 Carbon Dioxide 24 Anion Gap 5 BUN 8 Creatinine 0.34 L Estim Creat Clear Calc 78 Estimated GFR > 60 Glucose 110 Calcium 8.4 Magnesium 1.5 L Total Bilirubin 0.3 AST 20 ALT 15 Alkaline Phosphatase 94 Total Protein 6.0 L Albumin 2.7 L
[2024-08-04 15:15] LABS: Add Urine Microscopic? YES; Appearance Urine Clear (Clear); Bacteria Urine None Seen /hpf; Bilirubin Urine Negative (Negative); Blood Urine Negative (Negative); Calcium Oxalate Crystals Urine Present /hpf; Color Urine Yellow (Yellow); Glucose Urine UA Negative (Negative); Ketones Urine Negative (Negative); Leukocyte Esterase Ur Trace LEU/UL (Negative); Need Manual Microscopic Reviewed; Nitrate Urine Negative (Negative); Non Pathogenic Casts 0-2; Protein Urine Negative (Negative); RBC Urine 0-2 /hpf (0-2); Squamous Epithelial Cell Urine None Seen /hpf (Few); Urobilinogen Urine 0.2 mg/dL (<2.0); WBC Urine 0-5 /hpf (0-3)
[2024-08-04] MEDS: KETOROLAC 15 MG/ML VIAL (*BKC) IV PUSH ×2 (16:52→22:26)
[2024-08-04] MEDS: ATORVASTATIN 40 MG TABLET PO (22:25)
[2024-08-04] MEDS: AMITRIPTYLINE HCL 10 MG TABLET 20 MG PO (22:25)
[2024-08-05] VITALS (11 sets, daily range): BP systolic 118–135; BP diastolic 53–78; PULSE 74–154; RESP 14–20; TEMP 36.7–37.2; O2SAT 92–98
[2024-08-05] MEDS: LEVOTHYROXINE SODIUM 25 MCG TABLET PO (05:47)
[2024-08-05 06:29] LABS: Basophils Percent Auto 0.3 % (0.2-1.2); Eosinophils Absolute Auto 0.5 K/mm3 (0-0.3); Eosinophils Percent Auto 7.6 % (0-4.4); Hematocrit 29.7 % (37.0-47.0); Hemoglobin 8.9 g/dL (12.0-15.0); Immature Granulocyte Absolute 0.01 K/mm3 (0.00-0.031); Immature Granulocyte Percent A 0.2 % (0-0.5); Lymphocytes Absolute Auto 1.95 K/mm3 (0.9-3.2); Lymphocytes Percent Auto 32.4 % (18.3-44.2); Mean Corpuscular Hemoglobin 28.4 pg (26-34); Mean Corpuscular Volume 94.9 fl (80-100); Mean Platelet Volume 10.1 fl (7.4-10.4); Monocytes Absolute Auto 0.5 K/mm3 (0.1-0.6); Monocytes Percent Auto 7.5 % (2.6-8.5); Neutrophils Absolute Auto 3.1 K/mm3 (1.3-6.7); Platelet Count Result 222 k/mm3 (150-375); Red Blood Count 3.13 M/mm3 (4.2-5.4); Red Cell Distribution Width 15.5 % (11.5-14.5)
[2024-08-05 06:45] LABS: Alanine Aminotransferase 17 U/L (6-35); Albumin Level 2.8 g/dL (3.5-5.1); Alkaline Phosphatase 101 U/L (38-126); Anion Gap 2 mmol/L (4-12); Aspartate Amino Transferase 22 U/L (14-36); Bilirubin,Total 0.2 mg/dL (0.2-1.3); Blood Urea Nitrogen 12 mg/dL (7-17); Calcium 8.8 mg/dL (8.4-10.2); Carbon Dioxide 28 mmol/L (22-30); Chloride 105 mmol/L (98-107); Estimated CRCL calculation 60 ml/min; Estimated Glomerular Filt Rate > 60; Glucose 95 mg/dL (65-110); Magnesium 1.9 mg/dL (1.6-2.3); Potassium 4.4 mmol/L (3.4-5.0); Sodium 135 mmol/L (137-145)
[2024-08-05] MEDS: AMOXICILLIN/CLAVULANATE K 875-125 MG TAB 1 TABLET PO ×2 (08:46→20:17)
[2024-08-05] MEDS: GABAPENTIN 100 MG CAPSULE 200 MG PO ×2 (08:46→16:38)
[2024-08-05] MEDS: TAMSULOSIN HCL 0.4 MG CAPSULE PO (08:46)
[2024-08-05] MEDS: CYANOCOBALAMIN 1,000 MCG TABLET 2000 MCG PO (08:46)
[2024-08-05] MEDS: PANTOPRAZOLE 40 MG TABLET PO (08:46)
[2024-08-05] MEDS: CYANOCOBALAMIN 500 MCG TABLET PO (08:46)
[2024-08-05] MEDS: METOPROLOL SUCCINATE EXT REL 50 MG TABCR PO (08:51)
[2024-08-05] MEDS: ENOXAPARIN 40 MG/0.4 ML SYRINGE SUB-Q (09:01)
--- NOTE | 2024-08-05 11:22 | PM.PNGS ---
Progress Note: A&P Assessment and Plan (1) Acute cholecystitis: Code(s): K81.0 - Acute cholecystitis Status: Acute Assessment and Plan: Postop day 5 after robotic assisted laparoscopic subtotal nonfenestrated cholecystectomy. She appears to have a small bile leak, still with minimal output from SRAVAN drain. We will continue to monitor the drain, which will remain in place on discharge. She is feeling better today and her WBC count is normal. She is afebrile. UA negative. CXR showed atelectasis vs pneumonia, management per Hospitalist. Encouraged IS use. She is surgically stable for discharge with the SRAVAN drain and oral antibiotics once she is cleared by the Hospitalist and depending on therapy's recommendations for her today. Will follow along. (2) Severe protein-calorie malnutrition: Code(s): E43 - Unspecified severe protein-calorie malnutrition Status: Acute Assessment and Plan: Better oral intake yesterday. Her daughter is bringing in food from home. Continue nutritional supplements. Plan I have discussed the patient's case and plan of care with Dr. Chester. Subjective Subjective Date/Time Seen: 08/05/24 11:22 Patient reports: no new complaints, feels better, tolerating a regular diet, flatus, bowel movement and afebrile Interval history: Patient reports feeling better today. She is more alert and overall feels well. She denies much of a cough today and has not had any chills. She feels stronger but has not been up to the chair yet. PT will be coming to work with her today. She ate well yesterday and her daughter talked about bringing her in food from home today b/c she is not liking some of the hospital food. Exam Const: General: comfortable and no acute distress Orientation/consciousness: patient oriented x3 Resp: Effort & Inspection: normal respiratory effort Auscultation: clear to auscultation bilaterally Cardio: Rate: regular rate Rhythm: regular rhythm GI: Inspection: non-distended and incision (port site incisions are healing well with no erythema or drainage) GI Palp: Yes Soft to palpation, No Tenderness to palpation present (GI) and No Guarding due to palpation present (GI) Auscultation: normal bowel sounds Other: RUQ SRAVAN drain with small amount of bilious appearing output, 50 cc out over the past 24 hours. Objective Data Vital Signs Vital Signs: Vital Signs - 24 hr 08/04/24 12:00 08/04/24 14:00 08/04/24 16:00 Temperature 98.2 F Pulse Rate 74 85 76 Respiratory Rate 18 Blood Pressure 123/63 Pulse Oximetry 98 Oxygen Delivery 08/04/24 20:00 08/04/24 20:00 08/04/24 22:00 Temperature 97.5 F L Pulse Rate 84 83 Respiratory Rate 18 Blood Pressure 138/76 Pulse Oximetry 100 Oxygen Delivery Room Air 08/05/24 00:00 08/05/24 04:00 08/05/24 05:48 Temperature 98.0 F Pulse Rate 74 74 81 Respiratory Rate 14 Blood Pressure 121/78 Pulse Oximetry 98 Oxygen Delivery 08/05/24 08:45 08/05/24 08:45 08/05/24 08:51 Temperature Pulse Rate 86 86 Respiratory Rate Blood Pressure 135/68 Pulse Oximetry 96 Oxygen Delivery Room Air Intake/Output Intake/Output: Intake & Output 08/02/24 08/03/24 08/04/24 08/05/24 23:59 23:59 23:59 23:59 Intake Total 727 194 1840 240 Output Total 875 299 641 50 Balance -997 990 5561 190 Meds/Results Medications: Active Medications Generic Name Dose Route Start Last Admin Trade Name Freq PRN Reason Stop Dose Admin Acetaminophen 1,000 mg 07/22/24 08:52 08/04/24 22:25 Acetaminophen 500 Mg Tablet PO 1,000 mg Q6H PRN Administration Mild Pain (1-3) or Fever Amitriptyline HCl 20 mg 07/21/24 21:15 08/04/24 22:25 Amitriptyline Hcl 10 Mg Tablet PO 20 mg QHS MELISSA Administration Amoxicillin/Clavulanate Potassium 1 tablet 08/02/24 21:00 08/05/24 08:46 Amoxicillin/Clavulanate K 875-125 Mg Tab PO 1 tablet Q12HR [facility]ELISSA Administration Atorvastatin Calcium 40 mg 07/21/24 21:15 08/04/24 22:25 Atorvastatin 40 Mg Tablet PO 40 mg QHS [facility]ELISSA Administration Cyanocobalamin 500 mcg 07/22/24 09:00 08/05/24 08:46 Cyanocobalamin 500 Mcg Tablet PO 500 mcg QAM [facility]ELISSA Administration Cyanocobalamin 2,000 mcg 07/22/24 09:00 08/05/24 08:46 Cyanocobalamin 1,000 Mcg Tablet PO 2,000 mcg QAM [facility] Administration Enoxaparin Sodium 40 mg 08/01/24 09:00 08/05/24 09:01 Enoxaparin 40 Mg/0.4 Ml Syringe SUB-Q 40 mg DAILY [facility]EL[facility]SA Administration Gabapentin 200 mg 07/22/24 09:00 08/05/24 08:46 Gabapentin 100 Mg Capsule PO 200 mg BID [facility] Administration Ketorolac Tromethamine 15 mg 07/25/24 13:23 08/04/24 22:26 Ketorolac 15 Mg/Ml Vial (*Bkc) IV PUSH 15 mg Q6H PRN Administration Pain Rated 4-6 Levothyroxine Sodium 25 mcg 07/22/24 06:30 08/05/24 05:47 Levothyroxine Sodium 25 Mcg Tablet PO 25 mcg DAILY@0630 [facility] Administration Metoprolol Succinate 50 mg 07/24/24 09:00 08/05/24 08:51 Metoprolol Succinate Ext Rel 50 Mg Tabcr PO 50 mg QAM [facility] Administration Miscellaneous Information 0 each 08/04/24 00:01 08/05/24 01:40 Ketorolac Renew If Needs Or Will Auto D/C XX 09/03/24 00:00 Not Given CLARIFY [facility] Morphine Sulfate 2 mg 07/30/24 22:38 07/30/24 23:22 Morphine Sulfate (*Crx) 2 Mg/Ml Inj IV PUSH 2 mg Q4H PRN Administration pain 7-10 Ondansetron HCl 4 mg 07/22/24 08:52 07/30/24 23:22 Ondansetron Inj 4 Mg/2 Ml Vial IV PUSH 4 mg Q6H PRN Administration Nausea And Vomiting Ondansetron HCl 4 mg 07/31/24 15:24 Ondansetron Inj 4 Mg/2 Ml Vial IV PUSH ONCE PRN Nausea Pantoprazole Sodium 40 mg 07/22/24 09:00 08/05/24 08:46 Pantoprazole 40 Mg Tablet PO 40 mg QAM [facility] Administration Tamsulosin HCl 0.4 mg 07/22/24 09:00 08/05/24 08:46 Tamsulosin Hcl 0.4 Mg Capsule PO 0.4 mg DAILY [facility] Administration Tramadol HCl 50 mg 08/02/24 09:21 08/03/24 11:27 Tramadol Hcl (*Crx) 50 Mg Tablet PO 50 mg Q6H PRN Administration Pain Rated 4-6 Radiology Results: ITS Impressions Abdomen/Pelvis CT 07/22/24 08:52 Impression: Percutaneous cholecystostomy tube in place with distended irregular gallbladder with marked irregular wall thickening and pericholecystic infarct or change, compatible with acute cholecystitis. Fluid-filled tract communicating with the gallbladder lumen at the superior aspect, which represents a tract related to prior cholecystostomy tube placement, with extension into the anterior abdominal wall. Additional suspected area of contained perforation at the inferior aspect of the gallbladder, which is new from prior exam. Acute L1 compression fracture, new from prior exam. Worsening T12 compression fracture as compared to prior exam with progressive loss of height. Cholecystostomy 07/23/24 14:08 IMPRESSION: 1. Successful upsizing to 12 Hebrew of a right upper quadrant percutaneous cholecystostomy tube. 2. Patent cystic and common bile ducts. Chest X-Ray 08/04/24 13:43 IMPRESSION: Bibasilar atelectasis versus with left pleural effusion. Labs Labs: Laboratory Results - last 24 hr 08/04/24 08/05/24 14:48 06:06 WBC 6.0 RBC 3.13 L Hgb 8.9 L Hct 29.7 L MCV 94.9 MCH 28.4 MCHC 30.0 L RDW 15.5 H Plt Count 222 MPV 10.1 Immature Gran % (Auto) 0.2 Neut % (Auto) 52.0 Lymph % (Auto) 32.4 [place] % (Auto) 7.5 Eos % (Auto) 7.6 H Baso % (Auto) 0.3 Lymph # (Auto) 1.95 [place] # (Auto) 0.5 Eos # (Auto) 0.5 H Baso # (Auto) 0.0 Abs Immat Gran (auto) 0.01 Absolute Neuts (auto) 3.1 Absolute Nucleated RBC 0.000 Nucleated RBC % 0.0 Sodium 135 L Potassium 4.4 Chloride 105 Carbon Dioxide 28 Anion Gap 2 L BUN 12 Creatinine 0.46 L Estim Creat Clear Calc 60 Estimated GFR > 60 Glucose 95 Calcium 8.8 Magnesium 1.9 Total Bilirubin 0.2 AST 22 ALT 17 Alkaline Phosphatase 101 Total Protein 6.0 L Albumin 2.8 L Urine Color Yellow Urine Appearance Clear Urine pH 6.0 Ur Specific [place] 1.010 Urine Protein Negative Urine Glucose (UA) Negative Urine Ketones Negative Ur Blood (Man) Negative Urine Nitrate Negative Urine Bilirubin Negative Urine Urobilinogen 0.2 Add Ur Microanalysis Reviewed Leukocyte Esterase Rfl Trace H Urine RBC 0-2 Urine WBC 0-5 Ur Squamous Epith Cells None seen Calcium Oxalate Crystal Present Urine Bacteria None seen Urine Casts 0-2
[2024-08-05] MEDS: ONDANSETRON HCL ODT 4 MG TABLET PO (12:38)
--- NOTE | 2024-08-05 12:48 | P.PNIM_ITS ---
Progress Note: A&P Assessment and Plan (1) Acute cholecystitis: Code(s): K81.0 - Acute cholecystitis Status: Acute Assessment and Plan: * Cholecystostomy tube 07/23 in IR. * Continue have purulent discharge from the cholecystotomy tube * Management per general surgeon * She is status post cholecystectomy 07/31/2024. * Augmentin 875-125 mg 1 tablet PO q 12. * GI consult. NPO after midnight for possible ERCP to evaluate for bile leak. (2) Essential hypertension: Code(s): I10 - Essential (primary) hypertension Status: Acute Assessment and Plan: * Metoprolol Succinate 50 mg PO QAM. * Blood pressure 129/64. (3) Coronary artery disease involving [place] coronary artery of [place] heart: Code(s): I25.10 - Atherosclerotic heart disease of [place] coronary artery without angina pectoris Status: Acute Assessment and Plan: * Atorvastatin 40 mg PO QHS. (4) Severe protein-calorie malnutrition: Code(s): E43 - Unspecified severe protein-calorie malnutrition Status: Acute Assessment and Plan: * Protein 6.0. * Severe protein calorie malnutrition related to taste changes, poor appetite, nausea as evidenced by intakes <75% needs >1 month. Weight loss-15%/3 months: moderate fat loss, severe muscle wasting. * Ensure Enlive TID and Nutritional ice cream TID. * Hadoop Analyst following. (5) Atrial fibrillation: Qualifiers: Atrial fibrillation type: unspecified Qualified Code(s): I48.91 - Unspecified atrial fibrillation Code(s): I48.91 - Unspecified atrial fibrillation Status: Acute Assessment and Plan: * Metoprolol Succinate 50 mg PO daily. * Lovenox 40 mg subq daily. * Telemetry. * Eliquis on hold until evaluated by GI. (6) Hypothyroidism: Code(s): E03.9 - Hypothyroidism, unspecified Status: Acute Assessment and Plan: * Levothyroxine 25 mcg PO daily. (7) T12 compression fracture: Code(s): S22.080A - Wedge compression fracture of T11-T12 vertebra, initial encounter for closed fracture Status: Acute Assessment and Plan: * Patient is followed by pain management and to have kyphoplasty, patient was supposed to have this week but ended up hospitalized. * TLSO ordered. * PT/OT No focal deficits no urinary fecal incontinence Plan Subjective Date/time seen: 08/05/24 12:48 Interval history: Patient sitting up in chair with daughter at bedside. Patient reports feeling a little nauseous. Patient denies chest pain, palpitations, headache, dizziness, or vomiting. Review of Systems Review of Systems: All systems reviewed & are unremarkable except as noted in HPI and below Exam Const: General: comfortable and no acute distress Resp: Effort & Inspection: normal respiratory effort Auscultation: clear to auscultation bilaterally Cardio: Rate: tachycardic Rhythm: regular rhythm Other: ST -112 GI: GI Palp: Yes Soft to palpation Auscultation: normal bowel sounds Other: Dressing C/D/I. SRAVAN drain will bilious drainage. Neuro: Speech: normal speech Extrem: General: no pedal edema Psych: Mental Status: mental status grossly normal Affect: normal affect Objective Data Vital Signs Vital Signs: Vital Signs - 24 hr 08/04/24 14:00 08/04/24 16:00 08/04/24 20:00 Temperature 98.2 F Pulse Rate 85 76 84 Respiratory Rate 18 Blood Pressure 123/63 Pulse Oximetry 98 Oxygen Delivery 08/04/24 20:00 08/04/24 22:00 08/05/24 00:00 Temperature 97.5 F L Pulse Rate 83 74 Respiratory Rate 18 Blood Pressure 138/76 Pulse Oximetry 100 Oxygen Delivery Room Air 08/05/24 04:00 08/05/24 05:48 08/05/24 08:45 Temperature 98.0 F Pulse Rate 74 81 Respiratory Rate 14 Blood Pressure 121/78 Pulse Oximetry 98 Oxygen Delivery Room Air 08/05/24 08:45 08/05/24 08:51 Temperature Pulse Rate 86 86 Respiratory Rate Blood Pressure 135/68 Pulse Oximetry 96 Oxygen Delivery Intake/Output Intake/Output: Intake & Output 08/02/24 08/03/24 08/04/24 08/05/24 23:59 23:59 23:59 23:59 Intake Total 778 102 5621 240 Output Total 875 299 641 50 Balance -611 170 0860 190 Meds/Results Medications: Active Medications Generic Name Dose Route Start Last Admin Trade Name Freq PRN Reason Stop Dose Admin Acetaminophen 1,000 mg 07/22/24 08:52 08/04/24 22:25 Acetaminophen 500 Mg Tablet PO 1,000 mg Q6H PRN Administration Mild Pain (1-3) or Fever Amitriptyline HCl 20 mg 07/21/24 21:15 08/04/24 22:25 Amitriptyline Hcl 10 Mg Tablet PO 20 mg QHS [facility] Administration Amoxicillin/Clavulanate Potassium 1 tablet 08/02/24 21:00 08/05/24 08:46 Amoxicillin/Clavulanate K 875-125 Mg Tab PO 1 tablet Q12HR MELISSA Administration Atorvastatin Calcium 40 mg 07/21/24 21:15 08/04/24 22:25 Atorvastatin 40 Mg Tablet PO 40 mg QHS MELISSA Administration Cyanocobalamin 500 mcg 07/22/24 09:00 08/05/24 08:46 Cyanocobalamin 500 Mcg Tablet PO 500 mcg QAM [facility] Administration Cyanocobalamin 2,000 mcg 07/22/24 09:00 08/05/24 08:46 Cyanocobalamin 1,000 Mcg Tablet PO 2,000 mcg QAM [facility] Administration Enoxaparin Sodium 40 mg 08/01/24 09:00 08/05/24 09:01 Enoxaparin 40 Mg/0.4 Ml Syringe SUB-Q 40 mg DAILY [facility] Administration Gabapentin 200 mg 07/22/24 09:00 08/05/24 08:46 Gabapentin 100 Mg Capsule PO 200 mg BID [facility] Administration Ketorolac Tromethamine 15 mg 07/25/24 13:23 08/04/24 22:26 Ketorolac 15 Mg/Ml Vial (*Bkc) IV PUSH 15 mg Q6H PRN Administration Pain Rated 4-6 Levothyroxine Sodium 25 mcg 07/22/24 06:30 08/05/24 05:47 Levothyroxine Sodium 25 Mcg Tablet PO 25 mcg DAILY@0630 [facility] Administration Metoprolol Succinate 50 mg 07/24/24 09:00 08/05/24 08:51 Metoprolol Succinate Ext Rel 50 Mg Tabcr PO 50 mg QAM [facility] Administration Miscellaneous Information 0 each 08/04/24 00:01 08/05/24 01:40 Ketorolac Renew If Needs Or Will Auto D/C XX 09/03/24 00:00 Not Given CLARIFY [facility] Morphine Sulfate 2 mg 07/30/24 22:38 07/30/24 23:22 Morphine Sulfate (*Crx) 2 Mg/Ml Inj IV PUSH 2 mg Q4H PRN Administration pain 7-10 Ondansetron HCl 4 mg 07/22/24 08:52 07/30/24 23:22 Ondansetron Inj 4 Mg/2 Ml Vial IV PUSH 4 mg Q6H PRN Administration Nausea And Vomiting Ondansetron HCl 4 mg 07/31/24 15:24 Ondansetron Inj 4 Mg/2 Ml Vial IV PUSH ONCE PRN Nausea Ondansetron HCl 4 mg 08/05/24 12:23 08/05/24 12:38 Ondansetron Hcl Odt 4 Mg Tablet PO 4 mg Q6H PRN Administration Nausea And Vomiting Pantoprazole Sodium 40 mg 07/22/24 09:00 08/05/24 08:46 Pantoprazole 40 Mg Tablet PO 40 mg QAM MELISSA Administration Tamsulosin HCl 0.4 mg 07/22/24 09:00 08/05/24 08:46 Tamsulosin Hcl 0.4 Mg Capsule PO 0.4 mg DAILY MELISSA Administration Tramadol HCl 50 mg 08/02/24 09:21 08/03/24 11:27 Tramadol Hcl (*Crx) 50 Mg Tablet PO 50 mg Q6H PRN Administration Pain Rated 4-6 Radiology Results: ITS Impressions Abdomen/Pelvis CT 07/22/24 08:52 Impression: Percutaneous cholecystostomy tube in place with distended irregular gallbladder with marked irregular wall thickening and pericholecystic infarct or change, compatible with acute cholecystitis. Fluid-filled tract communicating with the gallbladder lumen at the superior aspect, which represents a tract related to prior cholecystostomy tube placement, with extension into the anterior abdominal wall. Additional suspected area of contained perforation at the inferior aspect of the gallbladder, which is new from prior exam. Acute L1 compression fracture, new from prior exam. Worsening T12 compression fracture as compared to prior exam with progressive loss of height. Cholecystostomy 07/23/24 14:08 IMPRESSION: 1. Successful upsizing to 12 [place] of a right upper quadrant percutaneous cholecystostomy tube. 2. Patent cystic and common bile ducts. Chest X-Ray 08/04/24 13:43 IMPRESSION: Bibasilar atelectasis versus with left pleural effusion. Labs Labs: Laboratory Results - last 24 hr 08/04/24 08/05/24 14:48 06:06 WBC 6.0 RBC 3.13 L Hgb 8.9 L Hct 29.7 L MCV 94.9 MCH 28.4 MCHC 30.0 L RDW 15.5 H Plt Count 222 MPV 10.1 Immature Gran % (Auto) 0.2 Neut % (Auto) 52.0 Lymph % (Auto) 32.4 Grady % (Auto) 7.5 Eos % (Auto) 7.6 H Baso % (Auto) 0.3 Lymph # (Auto) 1.95 [place]ady # (Auto) 0.5 Eos # (Auto) 0.5 H Baso # (Auto) 0.0 Abs Immat Gran (auto) 0.01 Absolute Neuts (auto) 3.1 Absolute Nucleated RBC 0.000 Nucleated RBC % 0.0 Sodium 135 L Potassium 4.4 Chloride 105 Carbon Dioxide 28 Anion Gap 2 L BUN 12 Creatinine 0.46 L Estim Creat Clear Calc 60 Estimated GFR > 60 Glucose 95 Calcium 8.8 Magnesium 1.9 Total Bilirubin 0.2 AST 22 ALT 17 Alkaline Phosphatase 101 Total Protein 6.0 L Albumin 2.8 L Urine Color Yellow Urine Appearance Clear Urine pH 6.0 Ur Specific [place] 1.010 Urine Protein Negative Urine Glucose (UA) Negative Urine Ketones Negative Ur Blood (Man) Negative Urine Nitrate Negative Urine Bilirubin Negative Urine Urobilinogen 0.2 Add Ur Microanalysis Reviewed Leukocyte Esterase Rfl Trace H Urine RBC 0-2 Urine WBC 0-5 Ur Squamous Epith Cells None seen Calcium Oxalate Crystal Present Urine Bacteria None seen Urine Casts 0-2 Quality VTE Prophylaxis VTE prophylaxis: mechanical ordered and pharmacologic ordered
--- NOTE | 2024-08-05 17:54 | P.CONGI_ITS ---
Assessment and Plan Assessment and plan (1) Cholecystitis: Code(s): K81.9 - Cholecystitis, unspecified Status: Acute Assessment and Plan: s/p surgery surgical team noted more bilious output from SRAVAN drain and now highly concerned for bile leak, asking to evaluate patient with ERCP and biliary stenting this was discussed with family member at bedside and agreeable, they are aware of risk including possible pancreatitis (2) Bile leak, postoperative: Code(s): K91.89 - Other postprocedural complications and disorders of digestive system; K83.8 - Other specified diseases of biliary tract Status: Acute Assessment and Plan: ercp with stent probably tomorrow (3) Coronary artery disease: Code(s): I25.10 - Atherosclerotic heart disease of [place] coronary artery without angina pectoris Status: Acute (4) Moderate protein-calorie malnutrition: Code(s): E44.0 - Moderate protein-calorie malnutrition Status: Acute (5) Iron deficiency anemia: Code(s): D50.9 - Iron deficiency anemia, unspecified Status: Acute GI Consult Note Consult date/time: 08/05/24 17:54 Reason for consult: bile leak post cholecystectomy HPI: Maude Milton is a 84 year old female who is postop day 5 after robotic assisted laparoscopic subtotal nonfenestrated cholecystectomy after she was admitted with cholecystitis. She appears to have a small bile leak (she has SRAVAN drain and recently noted more bilious component with more output), surgery team is concerned about bile leak. Recent liver enzymes normal, some abdominal discomfort and also after deep inspiration. Review of Systems 2 Constitutional: Constitutional: Denies night sweats Eyes: Eyes: Denies blurry vision ENT: Denies dysphagia Cardiovascular: Cardiovascular: Denies lightheadedness Respiratory: Respiratory: Denies cough Gastrointestinal: Gastrointestinal: Reports abdominal pain Genitourinary: Genitourinary: Denies dysuria Musculoskeletal: Musculoskeletal: Denies myalgias Integumentary/Breasts: Skin/Breast: Denies rash Neurologic: Denies Abnormal speech present Psychiatric: Psychiatric: Denies behavioral changes [facility] Past Medical History Medical History (Updated 08/05/24 @ 17:57 by Silver Power MD) Bile leak, postoperative Diarrhea Coronary artery disease Prior cardiac catheterization showed mild plaque in the LAD and 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 Patient of Dr. Bereket Olson. Arthritis Prediabetes Essential hypertension Gastroesophageal reflux disease Hypothyroidism Mixed hyperlipidemia Seasonal allergic rhinitis Vitamin B12 deficiency Vitamin D deficiency Surgical History Surgical History History of cardiac catheterization Results as above. History of colonoscopy with polypectomy History of appendectomy History of cataract extraction History of hysterectomy Family History Family History Father Lung cancer Sibling Breast cancer Social History Social History Social History: Surrogate medical decision maker: Jodi Lewis, daughter. Code status: Full code. Smoking status: Never smoker Second hand tobacco smoke exposure: No Alcohol intake: never Substance use: never Substance use type: does not use Do You Feel Safe in your Home?: Yes Lack of Transportation: No Lack of Food: Never True Current Housing: I Have Housing Concerned About Future Housing: No Difficulty Paying Gas/Electric Bills: No Difficulty Paying for Meds: No Currently Unemployed: No Education: High School Diploma/GED Difficulty w/ Childcare or Family Care: No Living arrangements: with family Additional living arrangements comments: The patient lives in [place] with her daughter Jodi. 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 Spiritual care concerns: No Agree to blood products: Yes Meds Home Medications and Allergies Home Medications Medication Instructions Recorded Confirmed Type cyanocobalamin (vitamin B-12) 2,500 mcg PO QAM #90 tabs 01/10/23 07/21/24 Rx 2,500 mcg tablet levothyroxine 25 mcg tablet 25 mcg PO DAILY #90 tabs 03/20/23 07/21/24 Rx omeprazole 20 mg capsule,delayed 40 mg (2 x 20 mg) PO DAILY #180 08/28/23 07/21/24 Rx release caps ondansetron HCl 4 mg tablet See Rx Instructions .Route 12/03/23 07/21/24 Rx .COMPLEX #40 ea egg crate mattress for chair #1 ea 04/27/24 07/21/24 Rx nitroglycerin 0.4 mg sublingual 0.4 mg sublingual Q5M PRN chest 05/02/24 07/21/24 History tablet pain acetaminophen 500 mg capsule 1,000 mg PO TID PRN pain 06/13/24 07/21/24 History amitriptyline 10 mg tablet 20 mg PO .HS 06/13/24 07/21/24 History furosemide 40 mg tablet (Lasix) 40 mg PO BID 30 days #60 tabs 06/20/24 07/21/24 Rx metoprolol succinate 100 mg 100 mg PO DAILY 30 days #30 tabs 06/20/24 07/21/24 Rx tablet,extended release 24 hr (Toprol XL) apixaban 5 mg tablet (Eliquis) 5 mg PO Q12HR #60 tabs 06/22/24 07/21/24 Rx potassium chloride 20 mEq 40 meq (2 x 20 mEq) PO DAILY #30 06/22/24 07/21/24 Rx tablet,extended release(part/cryst) tabs tamsulosin 0.4 mg capsule 0.4 mg PO DAILY urinary retention 06/22/24 07/21/24 Rx #30 caps atorvastatin 40 mg tablet 40 mg PO DAILY #90 tabs 06/29/24 07/21/24 Rx chair lift #1 ea 06/29/24 07/21/24 Rx gabapentin 100 mg capsule 200 mg PO BID 07/21/24 07/21/24 History Allergies Allergy/AdvReac Type Severity Reaction Status Date / Time alendronate sodium Allergy Unknown Pt does Verified 07/31/24 14:56 remember levofloxacin Allergy Unknown Pt does Verified 07/31/24 14:56 not remember hydrocodone AdvReac Mild IF SHE Verified 07/31/24 14:56 TAKES 250 MG SHE IS OKAY, 500 MG SHE HAS NAUSEA AND V Vital Signs Vital Signs - 24 hr 08/04/24 20:00 08/04/24 20:00 08/04/24 22:00 Temperature 97.5 F L Pulse Rate 84 83 Respiratory Rate 18 Blood Pressure 138/76 Pulse Oximetry 100 Oxygen Delivery Room Air 08/05/24 00:00 08/05/24 04:00 08/05/24 05:48 Temperature 98.0 F Pulse Rate 74 74 81 Respiratory Rate 14 Blood Pressure 121/78 Pulse Oximetry 98 Oxygen Delivery 08/05/24 08:00 08/05/24 08:45 08/05/24 08:45 Temperature Pulse Rate 84 86 Respiratory Rate Blood Pressure 135/68 Pulse Oximetry 96 Oxygen Delivery Room Air 08/05/24 08:51 08/05/24 12:00 08/05/24 14:00 Temperature 98.5 F Pulse Rate 86 154 H 93 Respiratory Rate 16 Blood Pressure 129/64 Pulse Oximetry 93 Oxygen Delivery 08/05/24 16:00 Temperature Pulse Rate 92 Respiratory Rate Blood Pressure Pulse Oximetry Oxygen Delivery Exam 2 Const: General: comfortable and no acute distress O rientation/consciousness: patient oriented x3 HENMT: Face/Nose/Sinus: Normal nares present Eyes: General: appearance normal, both eyes and all related structures Neck: Neck: supple Resp: Effort & Inspection: normal respiratory effort Auscultation: clear to auscultation bilaterally Cardio: Rate: regular rate GI: Inspection: non-distended and incision (port site incisions are healing well with no erythema or drainage) GI Palp: Yes Soft to palpation, No Tenderness to palpation present (GI) and No Guarding due to palpation present (GI) Auscultation: normal bowel sounds Other: RUQ SRAVAN drain with small amount of bilious appearing output, 50 cc out over the past 24 hours. Skin: General skin exam: normal color Neuro: Speech: normal speech Motor exam (neuro): 5/5 motor strength present throughout Extrem: General: normal to inspection Psych: Mental Status: mental status grossly normal Results Labs 08/05/24 06:06 08/05/24 06:06 Labs: Short CBC 08/05/24 Range/Units 06:06 WBC 6.0 (4.5-10.0) K/mm3 Hgb 8.9 L (12.0-15.0) g/dL Hct 29.7 L (37.0-47.0) % Plt Count 222 (150-375) k/mm3 [facility] 08/05/24 06:06 Sodium 135 L Potassium 4.4 Chloride 105 Carbon Dioxide 28 BUN 12 Creatinine 0.46 L Glucose 95 Calcium 8.8 Liver Function 08/05/24 Range/Units 06:06 Total Bilirubin 0.2 (0.2-1.3) mg/dL AST 22 (14-36) U/L ALT 17 (6-35) U/L Alkaline Phosphatase 101 (38-126) U/L Albumin 2.8 L (3.5-5.1) g/dL
[2024-08-05] MEDS: KETOROLAC 15 MG/ML VIAL (*BKC) IV PUSH (20:14)
[2024-08-05] MEDS: AMITRIPTYLINE HCL 10 MG TABLET 20 MG PO (20:17)
[2024-08-05] MEDS: ATORVASTATIN 40 MG TABLET PO (20:17)
[2024-08-06] VITALS (15 sets, daily range): BP systolic 121–148; BP diastolic 60–68; PULSE 80–92; RESP 16–25; TEMP 36.2–37.1; O2SAT 86–100
[2024-08-06 06:13] LABS: Basophils Percent Auto 0.4 % (0.2-1.2); Eosinophils Absolute Auto 0.4 K/mm3 (0-0.3); Eosinophils Percent Auto 7.3 % (0-4.4); Hemoglobin 8.1 g/dL (12.0-15.0); Immature Granulocyte Absolute 0.03 K/mm3 (0.00-0.031); Immature Granulocyte Percent A 0.5 % (0-0.5); Lymphocytes Absolute Auto 1.99 K/mm3 (0.9-3.2); Lymphocytes Percent Auto 35.2 % (18.3-44.2); Mean Corpuscular HGB Conc 28.9 g/dl (32-36); Mean Corpuscular Hemoglobin 27.9 pg (26-34); Mean Corpuscular Volume 96.6 fl (80-100); Mean Platelet Volume 10.3 fl (7.4-10.4); Monocytes Absolute Auto 0.4 K/mm3 (0.1-0.6); Monocytes Percent Auto 7.6 % (2.6-8.5); Neutrophils Absolute Auto 2.8 K/mm3 (1.3-6.7); Platelet Count Result 225 k/mm3 (150-375); Red Cell Distribution Width 15.6 % (11.5-14.5); White Blood Count 5.7 K/mm3 (4.5-10.0)
[2024-08-06 06:24] LABS: Alanine Aminotransferase 17 U/L (6-35); Albumin Level 2.6 g/dL (3.5-5.1); Alkaline Phosphatase 84 U/L (38-126); Anion Gap 3 mmol/L (4-12); Aspartate Amino Transferase 26 U/L (14-36); Bilirubin,Total 0.2 mg/dL (0.2-1.3); Blood Urea Nitrogen 13 mg/dL (7-17); Calcium 8.8 mg/dL (8.4-10.2); Carbon Dioxide 30 mmol/L (22-30); Chloride 106 mmol/L (98-107); Estimated CRCL calculation 54 ml/min; Estimated Glomerular Filt Rate > 60; Glucose 97 mg/dL (65-110); Magnesium 1.9 mg/dL (1.6-2.3); Potassium 4.7 mmol/L (3.4-5.0); Sodium 139 mmol/L (137-145)
[2024-08-06 06:39] LABS: Hypochromasia 1+; Platelet Estimate Adequate (Adequate); Schistocytes None Seen
[2024-08-06] MEDS: TAMSULOSIN HCL 0.4 MG CAPSULE PO (09:40)
[2024-08-06] MEDS: CYANOCOBALAMIN 1,000 MCG TABLET 2000 MCG PO (09:40)
[2024-08-06] MEDS: LEVOTHYROXINE SODIUM 25 MCG TABLET PO (09:40)
[2024-08-06] MEDS: GABAPENTIN 100 MG CAPSULE 200 MG PO ×2 (09:41→17:16)
[2024-08-06] MEDS: CYANOCOBALAMIN 500 MCG TABLET PO (09:41)
[2024-08-06] MEDS: METOPROLOL SUCCINATE EXT REL 50 MG TABCR PO (09:41)
[2024-08-06] MEDS: PANTOPRAZOLE 40 MG TABLET PO (09:41)
[2024-08-06] MEDS: AMOXICILLIN/CLAVULANATE K 875-125 MG TAB 1 TABLET PO ×2 (09:41→21:16)
--- NOTE | 2024-08-06 13:22 | P.PNIM_ITS ---
Progress Note: A&P Assessment and Plan (1) Acute cholecystitis: Code(s): K81.0 - Acute cholecystitis Status: Acute Assessment and Plan: * Cholecystostomy tube 07/23 in IR. * Continue have purulent discharge from the cholecystotomy tube * Management per general surgeon * She is status post cholecystectomy 07/31/2024. * Augmentin 875-125 mg 1 tablet PO q 12. * GI consult. ERCP done today and stent successfully placed across biliary leak. Patient will need an ERCP again in 8-10 weeks to remove stent. (2) Essential hypertension: Code(s): I10 - Essential (primary) hypertension Status: Acute Assessment and Plan: * Metoprolol Succinate 50 mg PO QAM. * Blood pressure 147/63. (3) Coronary artery disease involving zuni coronary artery of zuni heart: Code(s): I25.10 - Atherosclerotic heart disease of zuni coronary artery without angina pectoris Status: Acute Assessment and Plan: * Atorvastatin 40 mg PO QHS. (4) Severe protein-calorie malnutrition: Code(s): E43 - Unspecified severe protein-calorie malnutrition Status: Acute Assessment and Plan: * Protein 6.0. * Severe protein calorie malnutrition related to taste changes, poor appetite, nausea as evidenced by intakes <75% needs >1 month. Weight loss-15%/3 months: moderate fat loss, severe muscle wasting. * Ensure Enlive TID and Nutritional ice cream TID. * [employer] following. (5) Atrial fibrillation: Qualifiers: Atrial fibrillation type: unspecified Qualified Code(s): I48.91 - Unspecified atrial fibrillation Code(s): I48.91 - Unspecified atrial fibrillation Status: Acute Assessment and Plan: * Metoprolol Succinate 50 mg PO daily. * Lovenox 40 mg subq daily. * Telemetry. * Eliquis on hold until evaluated by GI. (6) Hypothyroidism: Code(s): E03.9 - Hypothyroidism, unspecified Status: Acute Assessment and Plan: * Levothyroxine 25 mcg PO daily. (7) T12 compression fracture: Code(s): S22.080A - Wedge compression fracture of T11-T12 vertebra, initial encounter for closed fracture Status: Acute Assessment and Plan: * Patient is followed by pain management and to have kyphoplasty, patient was supposed to have this week but ended up hospitalized. * TLSO ordered. * PT/OT No focal deficits no urinary fecal incontinence Plan Subjective Date/time seen: 08/06/24 13:22 Interval history: Patient sitting up in bed with daughter at bedside. Patient NPO for ERCP today. Patient denies chest pain, palpitations, headache, dizziness, nausea, or vomiting. Review of Systems Review of Systems: All systems reviewed & are unremarkable except as noted in HPI and below Exam Const: General: comfortable and no acute distress Resp: Effort & Inspection: normal respiratory effort Auscultation: clear to auscultation bilaterally Cardio: Rate: regular rate Rhythm: regular rhythm GI: GI Palp: Yes Soft to palpation Auscultation: normal bowel sounds Neuro: Speech: normal speech Extrem: General: no pedal edema Psych: Mental Status: mental status grossly normal Affect: normal affect Objective Data Vital Signs Vital Signs: Vital Signs - 24 hr 08/05/24 14:00 08/05/24 16:00 08/05/24 19:59 Temperature 98.5 F 99.0 F Pulse Rate 93 92 99 Respiratory Rate 16 20 Blood Pressure 129/64 118/53 L Pulse Oximetry 93 92 Oxygen Delivery 08/05/24 20:00 08/05/24 20:00 08/06/24 00:00 Temperature Pulse Rate 101 H 84 Respiratory Rate Blood Pressure Pulse Oximetry Oxygen Delivery Room Air 08/06/24 04:00 08/06/24 04:40 08/06/24 08:00 Temperature 98.8 F Pulse Rate 86 82 82 Respiratory Rate 16 Blood Pressure 121/64 Pulse Oximetry 90 90 Oxygen Delivery Room Air 08/06/24 08:00 08/06/24 09:41 08/06/24 12:00 Temperature Pulse Rate 85 82 90 Respiratory Rate Blood Pressure Pulse Oximetry Oxygen Delivery Intake/Output Intake/Output: Intake & Output 08/03/24 08/04/24 08/05/24 08/06/24 23:59 23:59 23:59 23:59 Intake Total 715 2287 1420 Output Total 299 641 70 0 Balance 416 1646 1350 0 Meds/Results Medications: Active Medications Generic Name Dose Route Start Last Admin Trade Name Freq PRN Reason Stop Dose Admin Acetaminophen 1,000 mg 07/22/24 08:52 08/04/24 22:25 Acetaminophen 500 Mg Tablet PO 1,000 mg Q6H PRN Administration Mild Pain (1-3) or Fever Amitriptyline HCl 20 mg 07/21/24 21:15 08/05/24 20:17 Amitriptyline Hcl 10 Mg Tablet PO 20 mg QHS [facility] Administration Amoxicillin/Clavulanate Potassium 1 tablet 08/02/24 21:00 08/06/24 09:41 Amoxicillin/Clavulanate K 875-125 Mg Tab PO 1 tablet Q12HR MELISSA Administration Atorvastatin Calcium 40 mg 07/21/24 21:15 08/05/24 20:17 Atorvastatin 40 Mg Tablet PO 40 mg QHS [facility] Administration Cyanocobalamin 500 mcg 07/22/24 09:00 08/06/24 09:41 Cyanocobalamin 500 Mcg Tablet PO 500 mcg QAM [facility] Administration Cyanocobalamin 2,000 mcg 07/22/24 09:00 08/06/24 09:40 Cyanocobalamin 1,000 Mcg Tablet PO 2,000 mcg QAM [facility] Administration Enoxaparin Sodium 40 mg 08/01/24 09:00 08/06/24 11:03 Enoxaparin 40 Mg/0.4 Ml Syringe SUB-Q Not Given DAILY [facility] Gabapentin 200 mg 07/22/24 09:00 08/06/24 09:41 Gabapentin 100 Mg Capsule PO 200 mg BID [facility] Administration Levothyroxine Sodium 25 mcg 07/22/24 06:30 08/06/24 09:40 Levothyroxine Sodium 25 Mcg Tablet PO 25 mcg DAILY@0630 [facility] Administration Metoprolol Succinate 50 mg 07/24/24 09:00 08/06/24 09:41 Metoprolol Succinate Ext Rel 50 Mg Tabcr PO 50 mg QAM [facility] Administration Miscellaneous Information 0 each 08/04/24 00:01 08/05/24 21:23 Ketorolac Renew If Needs Or Will Auto D/C XX 09/03/24 00:00 Not Given CLARIFY [facility] Morphine Sulfate 2 mg 07/30/24 22:38 07/30/24 23:22 Morphine Sulfate (*Crx) 2 Mg/Ml Inj IV PUSH 2 mg Q4H PRN Administration pain 7-10 Ondansetron HCl 4 mg 07/22/24 08:52 07/30/24 23:22 Ondansetron Inj 4 Mg/2 Ml Vial IV PUSH 4 mg Q6H PRN Administration Nausea And Vomiting Ondansetron HCl 4 mg 07/31/24 15:24 Ondansetron Inj 4 Mg/2 Ml Vial IV PUSH ONCE PRN Nausea Ondansetron HCl 4 mg 08/05/24 12:23 08/05/24 12:38 Ondansetron Hcl Odt 4 Mg Tablet PO 4 mg Q6H PRN Administration Nausea And Vomiting Pantoprazole Sodium 40 mg 07/22/24 09:00 08/06/24 09:41 Pantoprazole 40 Mg Tablet PO 40 mg QAM MELISSA Administration Tamsulosin HCl 0.4 mg 07/22/24 09:00 08/06/24 09:40 Tamsulosin Hcl 0.4 Mg Capsule PO 0.4 mg DAILY MELISSA Administration Tramadol HCl 50 mg 08/02/24 09:21 08/03/24 11:27 Tramadol Hcl (*Crx) 50 Mg Tablet PO 50 mg Q6H PRN Administration Pain Rated 4-6 Radiology Results: ITS Impressions Abdomen/Pelvis CT 07/22/24 08:52 Impression: Percutaneous cholecystostomy tube in place with distended irregular gallbladder with marked irregular wall thickening and pericholecystic infarct or change, compatible with acute cholecystitis. Fluid-filled tract communicating with the gallbladder lumen at the superior aspect, which represents a tract related to prior cholecystostomy tube placement, with extension into the anterior abdominal wall. Additional suspected area of contained perforation at the inferior aspect of the gallbladder, which is new from prior exam. Acute L1 compression fracture, new from prior exam. Worsening T12 compression fracture as compared to prior exam with progressive loss of height. Cholecystostomy 07/23/24 14:08 IMPRESSION: 1. Successful upsizing to 12 [place] of a right upper quadrant percutaneous cholecystostomy tube. 2. Patent cystic and common bile ducts. Chest X-Ray 08/04/24 13:43 IMPRESSION: Bibasilar atelectasis versus with left pleural effusion. Labs Labs: Laboratory Results - last 24 hr 08/06/24 05:23 WBC 5.7 RBC 2.90 L Hgb 8.1 L Hct 28.0 L MCV 96.6 MCH 27.9 MCHC 28.9 L RDW 15.6 H Plt Count 225 MPV 10.3 Immature Gran % (Auto) 0.5 Neut % (Auto) 49.0 Lymph % (Auto) 35.2 [place] % (Auto) 7.6 Eos % (Auto) 7.3 H Baso % (Auto) 0.4 Lymph # (Auto) 1.99 [place] # (Auto) 0.4 Eos # (Auto) 0.4 H Baso # (Auto) 0.0 Abs Immat Gran (auto) 0.03 Absolute Neuts (auto) 2.8 Absolute Nucleated RBC 0.000 Band Neutrophils % Not Reportable Nucleated RBC % 0.0 Platelet Estimate Adequate Hypochromasia 1+ Schistocytes None seen Sodium 139 Potassium 4.7 Chloride 106 Carbon Dioxide 30 Anion Gap 3 L BUN 13 Creatinine 0.52 L Estim Creat Clear Calc 54 Estimated GFR > 60 Glucose 97 Calcium 8.8 Magnesium 1.9 Total Bilirubin 0.2 AST 26 ALT 17 Alkaline Phosphatase 84 Total Protein 6.0 L Albumin 2.6 L Quality VTE Prophylaxis VTE prophylaxis: mechanical ordered and pharmacologic ordered
[2024-08-06] MEDS: LACTATED RINGERS 1,000 ML 150 ML IV CONT (13:36)
--- NOTE | 2024-08-06 13:36 | WPDANESEPPF ---
Anes - Initial Pre Proc Eval Procedure: Operation Date: 07/30/24 11:00 Proposed Procedures p Robotic Cholecystectomy, Possible Open - Caio Chester MD Operation Date: 07/31/24 16:00 Proposed Procedures p Robotic Cholecystectomy, Possible Open - Caio Chester MD Operation Date: 08/06/24 13:15 Proposed Procedures p Endoscopic Retro Cholangiopancreatogram - Silver Power MD Date/Time: 08/06/24 13:36 Surgeon: Caio Chester MD Pre Op Diagnosis: Cholecystitis Patient Data Age: 84 Gender: F Height: 1.6 m Weight: 67.4 kg Last Vital Signs Temp 98.8 F 08/06/24 04:40 Pulse 90 08/06/24 12:00 Resp 16 08/06/24 04:40 BP 121/64 08/06/24 04:40 Pulse Ox 90 08/06/24 08:00 O2 Del Method Room Air 08/06/24 08:00 O2 Flow Rate 1 08/01/24 21:10 FiO2 21 08/02/24 20:00 Allergies Allergy/AdvReac Type Severity Reaction Status Date / Time alendronate sodium Allergy Unknown Pt does Verified 07/31/24 14:56 remember levofloxacin Allergy Unknown Pt does Verified 07/31/24 14:56 not remember hydrocodone AdvReac Mild IF SHE Verified 07/31/24 14:56 TAKES 250 MG SHE IS OKAY, 500 MG SHE HAS NAUSEA AND V Home Medications Medication Instructions Recorded Confirmed Type cyanocobalamin (vitamin B-12) 2,500 mcg PO QAM #90 tabs 01/10/23 07/21/24 Rx 2,500 mcg tablet levothyroxine 25 mcg tablet 25 mcg PO DAILY #90 tabs 03/20/23 07/21/24 Rx omeprazole 20 mg capsule,delayed 40 mg (2 x 20 mg) PO DAILY #180 08/28/23 07/21/24 Rx release caps ondansetron HCl 4 mg tablet See Rx Instructions .Route 12/03/23 07/21/24 Rx .COMPLEX #40 ea egg crate mattress for chair #1 ea 04/27/24 07/21/24 Rx nitroglycerin 0.4 mg sublingual 0.4 mg sublingual Q5M PRN chest 05/02/24 07/21/24 History tablet pain acetaminophen 500 mg capsule 1,000 mg PO TID PRN pain 06/13/24 07/21/24 History amitriptyline 10 mg tablet 20 mg PO .HS 06/13/24 07/21/24 History furosemide 40 mg tablet (Lasix) 40 mg PO BID 30 days #60 tabs 06/20/24 07/21/24 Rx metoprolol succinate 100 mg 100 mg PO DAILY 30 days #30 tabs 06/20/24 07/21/24 Rx tablet,extended release 24 hr (Toprol XL) apixaban 5 mg tablet (Eliquis) 5 mg PO Q12HR #60 tabs 06/22/24 07/21/24 Rx potassium chloride 20 mEq 40 meq (2 x 20 mEq) PO DAILY #30 06/22/24 07/21/24 Rx tablet,extended release(part/cryst) tabs tamsulosin 0.4 mg capsule 0.4 mg PO DAILY urinary retention 06/22/24 07/21/24 Rx #30 caps atorvastatin 40 mg tablet 40 mg PO DAILY #90 tabs 06/29/24 07/21/24 Rx chair lift #1 ea 06/29/24 07/21/24 Rx gabapentin 100 mg capsule 200 mg PO BID 07/21/24 07/21/24 History Laboratory Tests 08/06/24 05:23 WBC 5.7 K/mm3 (4.5-10.0) RBC 2.90 L M/mm3 (4.2-5.4) Hgb 8.1 L g/dL (12.0-15.0) Hct 28.0 L % (37.0-47.0) MCV 96.6 fl (80-100) MCH 27.9 pg (26-34) MCHC 28.9 L g/dl (32-36) RDW 15.6 H % (11.5-14.5) Plt Count 225 k/mm3 (150-375) MPV 10.3 fl (7.4-10.4) Immature Gran % (Auto) 0.5 % (0-0.5) Neut % (Auto) 49.0 % (45.5-73.1) Lymph % (Auto) 35.2 % (18.3-44.2) [place] % (Auto) 7.6 % (2.6-8.5) Eos % (Auto) 7.3 H % (0-4.4) Baso % (Auto) 0.4 % (0.2-1.2) Lymph # (Auto) 1.99 K/mm3 (0.9-3.2) [place] # (Auto) 0.4 K/mm3 (0.1-0.6) Eos # (Auto) 0.4 H K/mm3 (0-0.3) Baso # (Auto) 0.0 K/mm3 (0.0-0.1) Abs Immat Gran (auto) 0.03 K/mm3 (0.00-0.031) Absolute Neuts (auto) 2.8 K/mm3 (1.3-6.7) Absolute Nucleated RBC 0.000 K/mm3 (0.0-0.012) Band Neutrophils % Not Reportable Nucleated RBC % 0.0 % (0.0-0.2) Platelet Estimate Adequate (Adequate) Hypochromasia 1+ Schistocytes None seen Sodium 139 mmol/L (137-145) Potassium 4.7 mmol/L (3.4-5.0) Chloride 106 mmol/L (98-107) Carbon Dioxide 30 mmol/L (22-30) Anion Gap 3 L mmol/L (4-12) BUN 13 mg/dL (7-17) Creatinine 0.52 L mg/dL (0.7-1.0) Estim Creat Clear Calc 54 ml/min Estimated GFR > 60 (59 - ) Glucose 97 mg/dL (65-110) Calcium 8.8 mg/dL (8.4-10.2) Magnesium 1.9 mg/dL (1.6-2.3) Total Bilirubin 0.2 mg/dL (0.2-1.3) AST 26 U/L (14-36) ALT 17 U/L (6-35) Alkaline Phosphatase 84 U/L (38-126) Total Protein 6.0 L g/dL (6.3-8.2) Albumin 2.6 L g/dL (3.5-5.1) Patient hx anesthesia problems: none Family hx anesthesia problems: none Results Review: All pre-operative results and documents have been reviewed as part of the pre-operative evaluation. 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 Patient of Dr. Bereket Olson. Arthritis Prediabetes Essential hypertension Gastroesophageal reflux disease Hypothyroidism Mixed hyperlipidemia Seasonal allergic rhinitis Vitamin B12 deficiency Vitamin D deficiency Surgical History Surgical History History of cardiac catheterization Results as above. History of colonoscopy with polypectomy History of appendectomy History of cataract extraction History of hysterectomy Family History Family History Father Lung cancer Sibling Breast cancer Social History Social History Social History: Surrogate medical decision maker: Jodi Lewis, daughter. Code status: Full code. Smoking status: Never smoker Second hand tobacco smoke exposure: No Alcohol intake: never Substance use: never Substance use type: does not use Do You Feel Safe in your Home?: Yes Lack of Transportation: No Lack of Food: Never True Current Housing: I Have Housing Concerned About Future Housing: No Difficulty Paying Gas/Electric Bills: No Difficulty Paying for Meds: No Currently Unemployed: No Education: High School Diploma/GED Difficulty w/ Childcare or Family Care: No Living arrangements: with family Additional living arrangements comments: The patient lives in [place] with her daughter Jodi. 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 Spiritual care concerns: No Agree to blood products: Yes Anes - Eval Final PreProcedure Day of Procedure 08/06/24 13:36 Patient weight: normal Lungs: normal air movement Airway: Mallampati scale class II Neurological: alert and oriented Last oral intake: >/= 8 hours ASA classification: III Emergent: no Anesthetic plan: proceed Anesthesia type and monitoring: general ETT and standard monitoring Results Review: All pre-operative results and documents have been reviewed as part of the pre-operative evaluation. Complicated hospital pt, notes reviewed w pt and daughter. DNR status noted and we reselected goal specific option 3 after full discussion. Informed Consent: The patient's anesthetic plan and its attendant risks and benefits were discussed with the patient/family/POA. Questions were solicited and answers provided to the satisfaction of the patient/family/POA.
[2024-08-06] MEDS: INDOMETHACIN 50 MG SUPP.RECT RECTAL (13:57)
--- NOTE | 2024-08-06 14:17 | P.PNGS_ITS ---
Progress Note: A&P Assessment and Plan (1) Acute cholecystitis: Code(s): K81.0 - Acute cholecystitis Status: Acute Assessment and Plan: * Postop day 6 after robotic assisted laparoscopic subtotal nonfenestrated cholecystectomy. She appears to have a postoperative bile leak. GI was consulted and is planning an ERCP with stent placement today. Continue to monitor SRAVAN drain. Continue oral antibiotics. (2) Severe protein-calorie malnutrition: Code(s): E43 - Unspecified severe protein-calorie malnutrition Status: Acute Assessment and Plan: * NPO for ERCP, but will resume diet following the procedure. Plan I have discussed the patient's case and plan of care with Dr. Chester. Subjective Subjective Date/Time Seen: 08/06/24 11:17 Patient reports: no new complaints, tolerating a regular diet and afebrile Interval history: Called to the room this morning by the nurse with concerns of the SRAVAN drain. It was no longer keeping suction and appeared to have potentially pulled out slightly. Documented output overnight was 0 cc and 20 cc yesterday during day shift. Exam Const: General: comfortable and no acute distress GI: Inspection: non-distended and incision (dry and glue intact, no erythema or drainage) GI Palp: Yes Soft to palpation, No Tenderness to palpation present (GI), No Guarding due to palpation present (GI) and No Rebound tenderness present Auscultation: normal bowel sounds Other: RUQ SRAVAN drain has been withdrawn through the suture at the skin slightly. This slid back to the marking on the SRAVAN drain at the skin easily. The SRAVAN drain bulb was exchanged for a new bulb, but was still not holding suction. The old suture was removed and two new Nylon sutures were placed to keep the drain in place and tighten the skin around the drain, which then did allow the drain to maintain suction. Objective Data Vital Signs Vital Signs: Vital Signs - 24 hr 08/05/24 16:00 08/05/24 19:59 08/05/24 20:00 Temperature 99.0 F Pulse Rate 92 99 Respiratory Rate 20 Blood Pressure 118/53 L Pulse Oximetry 92 Oxygen Delivery Room Air 08/05/24 20:00 08/06/24 00:00 08/06/24 04:00 Temperature Pulse Rate 101 H 84 86 Respiratory Rate Blood Pressure Pulse Oximetry Oxygen Delivery 08/06/24 04:40 08/06/24 08:00 08/06/24 08:00 Temperature 98.8 F Pulse Rate 82 82 85 Respiratory Rate 16 Blood Pressure 121/64 Pulse Oximetry 90 90 Oxygen Delivery Room Air 08/06/24 09:41 08/06/24 12:00 Temperature Pulse Rate 82 90 Respiratory Rate Blood Pressure Pulse Oximetry Oxygen Delivery Intake/Output Intake/Output: Intake & Output 08/03/24 08/04/24 08/05/24 08/06/24 23:59 23:59 23:59 23:59 Intake Total 715 2287 1420 Output Total 299 641 70 0 Balance 416 1646 1350 0 Meds/Results Medications: Active Medications Generic Name Dose Route Start Last Admin Trade Name Freq PRN Reason Stop Dose Admin Acetaminophen 1,000 mg 07/22/24 08:52 08/04/24 22:25 Acetaminophen 500 Mg Tablet PO 1,000 mg Q6H PRN Administration Mild Pain (1-3) or Fever Amitriptyline HCl 20 mg 07/21/24 21:15 08/05/24 20:17 Amitriptyline Hcl 10 Mg Tablet PO 20 mg QHS MELISSA Administration Amoxicillin/Clavulanate Potassium 1 tablet 08/02/24 21:00 08/06/24 09:41 Amoxicillin/Clavulanate K 875-125 Mg Tab PO 1 tablet Q12HR MELISSA Administration Atorvastatin Calcium 40 mg 07/21/24 21:15 08/05/24 20:17 Atorvastatin 40 Mg Tablet PO 40 mg QHS MELISSA Administration Cyanocobalamin 500 mcg 07/22/24 09:00 08/06/24 09:41 Cyanocobalamin 500 Mcg Tablet PO 500 mcg QAM MELISSA Administration Cyanocobalamin 2,000 mcg 07/22/24 09:00 08/06/24 09:40 Cyanocobalamin 1,000 Mcg Tablet PO 2,000 mcg QAM MELISSA Administration Enoxaparin Sodium 40 mg 08/01/24 09:00 08/06/24 11:03 Enoxaparin 40 Mg/0.4 Ml Syringe SUB-Q Not Given DAILY MELISSA Gabapentin 200 mg 07/22/24 09:00 08/06/24 09:41 Gabapentin 100 Mg Capsule PO 200 mg BID MELISSA Administration Lactated Ringer's 1,000 mls @ 150 mls/hr 08/06/24 13:35 08/06/24 13:36 Lr - Lactated Ringers Iv IV CONT 150 mls/hr .Q6H40M MELISSA Administration Levothyroxine Sodium 25 mcg 07/22/24 06:30 08/06/24 09:40 Levothyroxine Sodium 25 Mcg Tablet PO 25 mcg DAILY@0630 MELISSA Administration Metoprolol Succinate 50 mg 07/24/24 09:00 08/06/24 09:41 Metoprolol Succinate Ext Rel 50 Mg Tabcr PO 50 mg QAM MELISSA Administration Miscellaneous Information 0 each 08/04/24 00:01 08/05/24 21:23 Ketorolac Renew If Needs Or Will Auto D/C XX 09/03/24 00:00 Not Given CLARIFY [facility] Morphine Sulfate 2 mg 07/30/24 22:38 07/30/24 23:22 Morphine Sulfate (*Crx) 2 Mg/Ml Inj IV PUSH 2 mg Q4H PRN Administration pain 7-10 Ondansetron HCl 4 mg 07/22/24 08:52 07/30/24 23:22 Ondansetron Inj 4 Mg/2 Ml Vial IV PUSH 4 mg Q6H PRN Administration Nausea And Vomiting Ondansetron HCl 4 mg 07/31/24 15:24 Ondansetron Inj 4 Mg/2 Ml Vial IV PUSH ONCE PRN Nausea Ondansetron HCl 4 mg 08/05/24 12:23 08/05/24 12:38 Ondansetron Hcl Odt 4 Mg Tablet PO 4 mg Q6H PRN Administration Nausea And Vomiting Pantoprazole Sodium 40 mg 07/22/24 09:00 08/06/24 09:41 Pantoprazole 40 Mg Tablet PO 40 mg QAM [facility] Administration Tamsulosin HCl 0.4 mg 07/22/24 09:00 08/06/24 09:40 Tamsulosin Hcl 0.4 Mg Capsule PO 0.4 mg DAILY [facility] Administration Tramadol HCl 50 mg 08/02/24 09:21 08/03/24 11:27 Tramadol Hcl (*Crx) 50 Mg Tablet PO 50 mg Q6H PRN Administration Pain Rated 4-6 Radiology Results: ITS Impressions Abdomen/Pelvis CT 07/22/24 08:52 Impression: Percutaneous cholecystostomy tube in place with distended irregular gallbladder with marked irregular wall thickening and pericholecystic infarct or change, compatible with acute cholecystitis. Fluid-filled tract communicating with the gallbladder lumen at the superior aspect, which represents a tract related to prior cholecystostomy tube placement, with extension into the anterior abdominal wall. Additional suspected area of contained perforation at the inferior aspect of the gallbladder, which is new from prior exam. Acute L1 compression fracture, new from prior exam. Worsening T12 compression fracture as compared to prior exam with progressive loss of height. Cholecystostomy 07/23/24 14:08 IMPRESSION: 1. Successful upsizing to 12 [place] of a right upper quadrant percutaneous cholecystostomy tube. 2. Patent cystic and common bile ducts. Chest X-Ray 08/04/24 13:43 IMPRESSION: Bibasilar atelectasis versus with left pleural effusion. Labs Labs: Laboratory Results - last 24 hr 08/06/24 05:23 WBC 5.7 RBC 2.90 L Hgb 8.1 L Hct 28.0 L MCV 96.6 MCH 27.9 MCHC 28.9 L RDW 15.6 H Plt Count 225 MPV 10.3 Immature Gran % (Auto) 0.5 Neut % (Auto) 49.0 Lymph % (Auto) 35.2 [place] % (Auto) 7.6 Eos % (Auto) 7.3 H Baso % (Auto) 0.4 Lymph # (Auto) 1.99 [place] # (Auto) 0.4 Eos # (Auto) 0.4 H Baso # (Auto) 0.0 Abs Immat Gran (auto) 0.03 Absolute Neuts (auto) 2.8 Absolute Nucleated RBC 0.000 Band Neutrophils % Not Reportable Nucleated RBC % 0.0 Platelet Estimate Adequate Hypochromasia 1+ Schistocytes None seen Sodium 139 Potassium 4.7 Chloride 106 Carbon Dioxide 30 Anion Gap 3 L BUN 13 Creatinine 0.52 L Estim Creat Clear Calc 54 Estimated GFR > 60 Glucose 97 Calcium 8.8 Magnesium 1.9 Total Bilirubin 0.2 AST 26 ALT 17 Alkaline Phosphatase 84 Total Protein 6.0 L Albumin 2.6 L
[2024-08-06] MEDS: LIDOCAINE 1% LOCAL INJ 10 ML VIAL (15:17)
--- NOTE | 2024-08-06 15:18 | PC.NURSE ---
Dr Chester & Kecia PA Lidocaine injection & reinserted SRAVAN drain & sutured at bedside. Patient tolerated well.
[2024-08-06] MEDS: PANTOPRAZOLE SODIUM IV 40 MG VIAL IV PUSH (18:27)
[2024-08-06] MEDS: AMITRIPTYLINE HCL 10 MG TABLET 20 MG PO (21:15)
[2024-08-06] MEDS: ATORVASTATIN 40 MG TABLET PO (21:16)
[2024-08-07] VITALS (10 sets, daily range): BP systolic 114–127; BP diastolic 51–92; PULSE 72–106; RESP 16–18; TEMP 36.1–37.1; O2SAT 92–99
[2024-08-07 05:19] LABS: Basophils Percent Auto 0.3 % (0.2-1.2); Hematocrit 30.6 % (37.0-47.0); Hemoglobin 9.2 g/dL (12.0-15.0); Immature Granulocyte Absolute 0.02 K/mm3 (0.00-0.031); Immature Granulocyte Percent A 0.3 % (0-0.5); Lymphocytes Absolute Auto 1.22 K/mm3 (0.9-3.2); Lymphocytes Percent Auto 20.7 % (18.3-44.2); Mean Corpuscular HGB Conc 30.1 g/dl (32-36); Mean Corpuscular Hemoglobin 28.2 pg (26-34); Mean Corpuscular Volume 93.9 fl (80-100); Mean Platelet Volume 9.8 fl (7.4-10.4); Monocytes Absolute Auto 0.3 K/mm3 (0.1-0.6); Monocytes Percent Auto 4.8 % (2.6-8.5); Neutrophils Absolute Auto 4.4 K/mm3 (1.3-6.7); Neutrophils Percent Auto 73.9 % (45.5-73.1); Platelet Count Result 258 k/mm3 (150-375); Red Blood Count 3.26 M/mm3 (4.2-5.4); Red Cell Distribution Width 15.2 % (11.5-14.5); White Blood Count 5.9 K/mm3 (4.5-10.0)
[2024-08-07 05:32] LABS: Alanine Aminotransferase 19 U/L (6-35); Albumin Level 2.9 g/dL (3.5-5.1); Alkaline Phosphatase 87 U/L (38-126); Anion Gap 4 mmol/L (4-12); Aspartate Amino Transferase 29 U/L (14-36); Bilirubin,Total 0.3 mg/dL (0.2-1.3); Blood Urea Nitrogen 14 mg/dL (7-17); Calcium 8.9 mg/dL (8.4-10.2); Carbon Dioxide 30 mmol/L (22-30); Chloride 104 mmol/L (98-107); Estimated CRCL calculation 64 ml/min; Estimated Glomerular Filt Rate > 60; Glucose 136 mg/dL (65-110); Sodium 138 mmol/L (137-145)
--- NOTE | 2024-08-07 09:04 | WPDPN ---
Progress Note: A&P Assessment and Plan (1) Acute cholecystitis: Code(s): K81.0 - Acute cholecystitis Status: Acute Assessment and Plan: Resolved after robotic assisted laparoscopic non fenestrated partial cholecystectomy for severe acute on chronic cholecystitis due to gallstones. She remains on oral antibiotics for another couple days. Continue supportive management and low-fat diet. (2) Bile leak, postoperative: Code(s): K91.89 - Other postprocedural complications and disorders of digestive system; K83.8 - Other specified diseases of biliary tract Status: Acute Assessment and Plan: Bile leak was somewhat expected given the on fenestrated subtotal cholecystectomy. ERCP yesterday with sphincterotomy and stent placement was successful. Output from the drain is markedly decreased today. Continue the drain for now. Likely remove the drain before she is discharged. She will need to have another endoscopy to remove the bile duct stent in 6 to 8 weeks. Subjective Date/time seen: 08/07/24 09:04 Interval history: Patient seems to be doing well today. Denies any abdominal pain. No nausea or vomiting. She just woke up is not been up out of bed yet. He had ERCP yesterday with placement of biliary stent and sphincterotomy for bile leak after nonfenestrated partial cholecystectomy last week. Output from the drain looks to be only about 20cc since yesterday. The amount has decreased since the ERCP and stent placement. Exam GI: Other: Abdomen is soft and nondistended. Port site incisions are healing well with no is evidence of wound infections. The right upper quadrant SRAVAN drain output is still ill bilious but the output is decreased from before the ERCP and stent placement and sphincterotomy. Objective Data Vital Signs Vital Signs: Vital Signs - 24 hr 08/06/24 09:41 08/06/24 12:00 08/06/24 14:48 Temperature 36.4 C Pulse Rate 82 90 92 Respiratory Rate 20 Blood Pressure 148/68 H Pulse Oximetry 100 Oxygen Delivery Simple Face Mask Oxygen Flow Rate 4 08/06/24 14:58 08/06/24 15:08 08/06/24 15:18 Temperature Pulse Rate 88 86 87 Respiratory Rate 21 H 22 H 25 H Blood Pressure 142/62 H 148/60 H 144/64 H Pulse Oximetry 100 100 100 Oxygen Delivery Simple Face Mask Simple Face Mask Room Air Oxygen Flow Rate 4 4 08/06/24 15:28 08/06/24 15:38 08/06/24 15:48 Temperature Pulse Rate 90 86 85 Respiratory Rate 25 H 18 20 Blood Pressure 142/62 H 145/68 H 147/63 H Pulse Oximetry 86 L 97 95 Oxygen Delivery Room Air Nasal Cannula Nasal Cannula Oxygen Flow Rate 2 2 08/06/24 20:10 08/06/24 20:39 08/07/24 00:00 Temperature 36.2 C L Pulse Rate 80 92 75 Respiratory Rate 16 Blood Pressure 130/68 Pulse Oximetry 97 Oxygen Delivery Oxygen Flow Rate 08/07/24 04:00 08/07/24 06:00 08/07/24 08:00 Temperature 36.1 C L Pulse Rate 79 76 Respiratory Rate 18 Blood Pressure 114/68 Pulse Oximetry 99 99 Oxygen Delivery Nasal Cannula Oxygen Flow Rate 2 Intake/Output Intake/Output: Intake & Output 08/04/24 08/05/24 08/06/24 08/07/24 23:59 23:59 23:59 23:59 Intake Total 2287 1420 600 Output Total 641 70 20 400 Balance 1646 1350 580 -400 Meds/Results Medications: Active Medications Generic Name Dose Route Start Last Admin Trade Name Freq PRN Reason Stop Dose Admin Acetaminophen 1,000 mg 07/22/24 08:52 08/04/24 22:25 Acetaminophen 500 Mg Tablet PO 1,000 mg Q6H PRN Administration Mild Pain (1-3) or Fever Amitriptyline HCl 20 mg 07/21/24 21:15 08/06/24 21:15 Amitriptyline Hcl 10 Mg Tablet PO 20 mg QHS MELISSA Administration Amoxicillin/Clavulanate Potassium 1 tablet 08/02/24 21:00 08/06/24 21:16 Amoxicillin/Clavulanate K 875-125 Mg Tab PO 1 tablet Q12HR MELISSA Administration Atorvastatin Calcium 40 mg 07/21/24 21:15 08/06/24 21:16 Atorvastatin 40 Mg Tablet PO 40 mg QHS MELISSA Administration Cyanocobalamin 500 mcg 07/22/24 09:00 08/06/24 09:41 Cyanocobalamin 500 Mcg Tablet PO 500 mcg QAM MELISSA Administration Cyanocobalamin 2,000 mcg 07/22/24 09:00 08/06/24 09:40 Cyanocobalamin 1,000 Mcg Tablet PO 2,000 mcg QAM MELISSA Administration Enoxaparin Sodium 40 mg 08/01/24 09:00 08/06/24 11:03 Enoxaparin 40 Mg/0.4 Ml Syringe SUB-Q Not Given DAILY [facility] Gabapentin 200 mg 07/22/24 09:00 08/06/24 17:16 Gabapentin 100 Mg Capsule PO 200 mg BID MELISSA Administration Levothyroxine Sodium 25 mcg 07/22/24 06:30 08/06/24 09:40 Levothyroxine Sodium 25 Mcg Tablet PO 25 mcg DAILY@0630 [facility] Administration Metoprolol Succinate 50 mg 07/24/24 09:00 08/06/24 09:41 Metoprolol Succinate Ext Rel 50 Mg Tabcr PO 50 mg QAM [facility] Administration Morphine Sulfate 2 mg 07/30/24 22:38 07/30/24 23:22 Morphine Sulfate (*Crx) 2 Mg/Ml Inj IV PUSH 2 mg Q4H PRN Administration pain 7-10 Ondansetron HCl 4 mg 07/22/24 08:52 07/30/24 23:22 Ondansetron Inj 4 Mg/2 Ml Vial IV PUSH 4 mg Q6H PRN Administration Nausea And Vomiting Ondansetron HCl 4 mg 08/05/24 12:23 08/05/24 12:38 Ondansetron Hcl Odt 4 Mg Tablet PO 4 mg Q6H PRN Administration Nausea And Vomiting Pantoprazole Sodium 40 mg 07/22/24 09:00 08/06/24 09:41 Pantoprazole 40 Mg Tablet PO 40 mg QAM [facility] Administration Tamsulosin HCl 0.4 mg 07/22/24 09:00 08/06/24 09:40 Tamsulosin Hcl 0.4 Mg Capsule PO 0.4 mg DAILY [facility] Administration Tramadol HCl 50 mg 08/02/24 09:21 08/03/24 11:27 Tramadol Hcl (*Crx) 50 Mg Tablet PO 50 mg Q6H PRN Administration Pain Rated 4-6 Radiology Results: ITS Impressions Abdomen/Pelvis CT 07/22/24 08:52 Impression: Percutaneous cholecystostomy tube in place with distended irregular gallbladder with marked irregular wall thickening and pericholecystic infarct or change, compatible with acute cholecystitis. Fluid-filled tract communicating with the gallbladder lumen at the superior aspect, which represents a tract related to prior cholecystostomy tube placement, with extension into the anterior abdominal wall. Additional suspected area of contained perforation at the inferior aspect of the gallbladder, which is new from prior exam. Acute L1 compression fracture, new from prior exam. Worsening T12 compression fracture as compared to prior exam with progressive loss of height. Cholecystostomy 07/23/24 14:08 IMPRESSION: 1. Successful upsizing to 12 [place] of a right upper quadrant percutaneous cholecystostomy tube. 2. Patent cystic and common bile ducts. Chest X-Ray 08/04/24 13:43 IMPRESSION: Bibasilar atelectasis versus with left pleural effusion. Labs Labs: Laboratory Results - last 24 hr 08/07/24 04:56 WBC 5.9 RBC 3.26 L Hgb 9.2 L Hct 30.6 L MCV 93.9 MCH 28.2 MCHC 30.1 L RDW 15.2 H Plt Count 258 MPV 9.8 Immature Gran % (Auto) 0.3 Neut % (Auto) 73.9 H Lymph % (Auto) 20.7 [place] % (Auto) 4.8 Eos % (Auto) 0.0 Baso % (Auto) 0.3 Lymph # (Auto) 1.22 [place] # (Auto) 0.3 Eos # (Auto) 0.0 Baso # (Auto) 0.0 Abs Immat Gran (auto) 0.02 Absolute Neuts (auto) 4.4 Absolute Nucleated RBC 0.000 Nucleated RBC % 0.0 Sodium 138 Potassium 5.0 Chloride 104 Carbon Dioxide 30 Anion Gap 4 BUN 14 Creatinine 0.43 L Estim Creat Clear Calc 64 Estimated GFR > 60 Glucose 136 H Calcium 8.9 Magnesium 2.0 Total Bilirubin 0.3 AST 29 ALT 19 Alkaline Phosphatase 87 Total Protein 6.0 L Albumin 2.9 L
[2024-08-07] MEDS: ENOXAPARIN 40 MG/0.4 ML SYRINGE SUB-Q (09:46)
[2024-08-07] MEDS: CYANOCOBALAMIN 500 MCG TABLET PO (09:46)
[2024-08-07] MEDS: GABAPENTIN 100 MG CAPSULE 200 MG PO ×2 (09:46→16:31)
[2024-08-07] MEDS: CYANOCOBALAMIN 1,000 MCG TABLET 2000 MCG PO (09:46)
[2024-08-07] MEDS: METOPROLOL SUCCINATE EXT REL 50 MG TABCR PO (09:46)
[2024-08-07] MEDS: AMOXICILLIN/CLAVULANATE K 875-125 MG TAB 1 TABLET PO ×2 (09:47→21:26)
[2024-08-07] MEDS: PANTOPRAZOLE 40 MG TABLET PO (09:47)
[2024-08-07] MEDS: TAMSULOSIN HCL 0.4 MG CAPSULE PO (09:47)
--- NOTE | 2024-08-07 11:19 | PM.IMPN ---
Progress Note: A&P Assessment and Plan (1) Acute cholecystitis: Code(s): K81.0 - Acute cholecystitis Status: Acute Assessment and Plan: Cholecystostomy tube 07/23 in IR. Continue have purulent discharge from the cholecystotomy tube Management per general surgeon She is status post cholecystectomy 07/31/2024. Augmentin 875-125 mg 1 tablet PO q 12. GI consult. ERCP done 08/06 and stent successfully placed across biliary leak. Patient will need an ERCP again in 8-10 weeks to remove stent. Tolerated full liquid and advanced to low fat diet for lunch. (2) Essential hypertension: Code(s): I10 - Essential (primary) hypertension Status: Acute Assessment and Plan: Increase Metoprolol Succinate 100 mg PO QAM, home dose. Blood pressure 114/68 (3) Coronary artery disease involving [place] coronary artery of [place] heart: Code(s): I25.10 - Atherosclerotic heart disease of [place] coronary artery without angina pectoris Status: Acute Assessment and Plan: Atorvastatin 40 mg PO QHS. (4) Severe protein-calorie malnutrition: Code(s): E43 - Unspecified severe protein-calorie malnutrition Status: Acute Assessment and Plan: Protein 6.0. Severe protein calorie malnutrition related to taste changes, poor appetite, nausea as evidenced by intakes <75% needs >1 month. Weight loss-15%/3 months: moderate fat loss, severe muscle wasting. Ensure Enlive TID and Nutritional ice cream TID. [employer] following. (5) Atrial fibrillation: Qualifiers: Atrial fibrillation type: unspecified Qualified Code(s): I48.91 - Unspecified atrial fibrillation Code(s): I48.91 - Unspecified atrial fibrillation Status: Acute Assessment and Plan: Metoprolol Succinate 100 mg PO daily. Lovenox 40 mg subq daily. Telemetry. Eliquis on hold until evaluated by GI. (6) Hypothyroidism: Code(s): E03.9 - Hypothyroidism, unspecified Status: Acute Assessment and Plan: Levothyroxine 25 mcg PO daily. (7) T12 compression fracture: Code(s): S22.080A - Wedge compression fracture of T11-T12 vertebra, initial encounter for closed fracture Status: Acute Assessment and Plan: Patient is followed by pain management and to have kyphoplasty, patient was supposed to have this week but ended up hospitalized. TLSO ordered. PT/OT No focal deficits no urinary fecal incontinence Plan Subjective Date/time seen: 08/07/24 11:19 Interval history: Patient sitting up in chair with daughter at bedside. Patient reports feeling better today. Patient reports tolerating food well. Patient denies chest pain, palpitations, headache, dizziness, nausea, or vomiting. Review of Systems Review of Systems: All systems reviewed & are unremarkable except as noted in HPI and below Exam Const: General: comfortable and no acute distress Resp: Effort & Inspection: normal respiratory effort Auscultation: clear to auscultation bilaterally Cardio: Rate: tachycardic Other: Telemetry 120. Vitals 95. GI: GI Palp: Yes Soft to palpation Auscultation: normal bowel sounds Other: SRAVAN drain with bilious output. Neuro: Speech: normal speech Extrem: General: no pedal edema Psych: Mental Status: mental status grossly normal Affect: normal affect Objective Data Vital Signs Vital Signs: Vital Signs - 24 hr 08/06/24 12:00 08/06/24 14:48 08/06/24 14:58 Temperature 97.6 F Pulse Rate 90 92 88 Respiratory Rate 20 21 H Blood Pressure 148/68 H 142/62 H Pulse Oximetry 100 100 Oxygen Delivery Simple Face Mask Simple Face Mask Oxygen Flow Rate 4 4 08/06/24 15:08 08/06/24 15:18 08/06/24 15:28 Temperature Pulse Rate 86 87 90 Respiratory Rate 22 H 25 H 25 H Blood Pressure 148/60 H 144/64 H 142/62 H Pulse Oximetry 100 100 86 L Oxygen Delivery Simple Face Mask Room Air Room Air Oxygen Flow Rate 4 08/06/24 15:38 08/06/24 15:48 08/06/24 20:10 Temperature Pulse Rate 86 85 80 Respiratory Rate 18 20 Blood Pressure 145/68 H 147/63 H Pulse Oximetry 97 95 Oxygen Delivery Nasal Cannula Nasal Cannula Oxygen Flow Rate 2 2 08/06/24 20:39 08/07/24 00:00 08/07/24 04:00 Temperature 97.2 F L Pulse Rate 92 75 79 Respiratory Rate 16 Blood Pressure 130/68 Pulse Oximetry 97 Oxygen Delivery Oxygen Flow Rate 08/07/24 06:00 08/07/24 08:00 08/07/24 08:00 Temperature 96.9 F L Pulse Rate 76 72 Respiratory Rate 18 Blood Pressure 114/68 Pulse Oximetry 99 99 Oxygen Delivery Nasal Cannula Oxygen Flow Rate 2 Intake/Output Intake/Output: Intake & Output 08/04/24 08/05/24 08/06/24 08/07/24 23:59 23:59 23:59 23:59 Intake Total 2287 1420 600 360 Output Total 641 70 20 435 Balance 1646 1350 580 -75 Meds/Results Medications: Active Medications Generic Name Dose Route Start Last Admin Trade Name Freq PRN Reason Stop Dose Admin Acetaminophen 1,000 mg 07/22/24 08:52 08/04/24 22:25 Acetaminophen 500 Mg Tablet PO 1,000 mg Q6H PRN Administration Mild Pain (1-3) or Fever Amitriptyline HCl 20 mg 07/21/24 21:15 08/06/24 21:15 Amitriptyline Hcl 10 Mg Tablet PO 20 mg QHS MELISSA Administration Amoxicillin/Clavulanate Potassium 1 tablet 08/02/24 21:00 08/07/24 09:47 Amoxicillin/Clavulanate K 875-125 Mg Tab PO 1 tablet Q12HR MELISSA Administration Atorvastatin Calcium 40 mg 07/21/24 21:15 08/06/24 21:16 Atorvastatin 40 Mg Tablet PO 40 mg QHS MELISSA Administration Cyanocobalamin 500 mcg 07/22/24 09:00 08/07/24 09:46 Cyanocobalamin 500 Mcg Tablet PO 500 mcg QAM MELISSA Administration Cyanocobalamin 2,000 mcg 07/22/24 09:00 08/07/24 09:46 Cyanocobalamin 1,000 Mcg Tablet PO 2,000 mcg QAM MELISSA Administration Enoxaparin Sodium 40 mg 08/01/24 09:00 08/07/24 09:46 Enoxaparin 40 Mg/0.4 Ml Syringe SUB-Q 40 mg DAILY MELISSA Administration Gabapentin 200 mg 07/22/24 09:00 08/07/24 09:46 Gabapentin 100 Mg Capsule PO 200 mg BID MELISSA Administration Levothyroxine Sodium 25 mcg 07/22/24 06:30 08/06/24 09:40 Levothyroxine Sodium 25 Mcg Tablet PO 25 mcg DAILY@0630 MELISSA Administration Metoprolol Succinate 50 mg 07/24/24 09:00 08/07/24 09:46 Metoprolol Succinate Ext Rel 50 Mg Tabcr PO 50 mg QAM [facility] Administration Morphine Sulfate 2 mg 07/30/24 22:38 07/30/24 23:22 Morphine Sulfate (*Crx) 2 Mg/Ml Inj IV PUSH 2 mg Q4H PRN Administration pain 7-10 Ondansetron HCl 4 mg 07/22/24 08:52 07/30/24 23:22 Ondansetron Inj 4 Mg/2 Ml Vial IV PUSH 4 mg Q6H PRN Administration Nausea And Vomiting Ondansetron HCl 4 mg 08/05/24 12:23 08/05/24 12:38 Ondansetron Hcl Odt 4 Mg Tablet PO 4 mg Q6H PRN Administration Nausea And Vomiting Pantoprazole Sodium 40 mg 07/22/24 09:00 08/07/24 09:47 Pantoprazole 40 Mg Tablet PO 40 mg QAM MELISSA Administration Tamsulosin HCl 0.4 mg 07/22/24 09:00 08/07/24 09:47 Tamsulosin Hcl 0.4 Mg Capsule PO 0.4 mg DAILY MELISSA Administration Tramadol HCl 50 mg 08/02/24 09:21 08/03/24 11:27 Tramadol Hcl (*Crx) 50 Mg Tablet PO 50 mg Q6H PRN Administration Pain Rated 4-6 Radiology Results: ITS Impressions Abdomen/Pelvis CT 07/22/24 08:52 Impression: Percutaneous cholecystostomy tube in place with distended irregular gallbladder with marked irregular wall thickening and pericholecystic infarct or change, compatible with acute cholecystitis. Fluid-filled tract communicating with the gallbladder lumen at the superior aspect, which represents a tract related to prior cholecystostomy tube placement, with extension into the anterior abdominal wall. Additional suspected area of contained perforation at the inferior aspect of the gallbladder, which is new from prior exam. Acute L1 compression fracture, new from prior exam. Worsening T12 compression fracture as compared to prior exam with progressive loss of height. Cholecystostomy 07/23/24 14:08 IMPRESSION: 1. Successful upsizing to 12 [place] of a right upper quadrant percutaneous cholecystostomy tube. 2. Patent cystic and common bile ducts. Chest X-Ray 08/04/24 13:43 IMPRESSION: Bibasilar atelectasis versus with left pleural effusion. Labs Labs: Laboratory Results - last 24 hr 08/07/24 04:56 WBC 5.9 RBC 3.26 L Hgb 9.2 L Hct 30.6 L MCV 93.9 MCH 28.2 MCHC 30.1 L RDW 15.2 H Plt Count 258 MPV 9.8 Immature Gran % (Auto) 0.3 Neut % (Auto) 73.9 H Lymph % (Auto) 20.7 [place] % (Auto) 4.8 Eos % (Auto) 0.0 Baso % (Auto) 0.3 Lymph # (Auto) 1.22 [place] # (Auto) 0.3 Eos # (Auto) 0.0 Baso # (Auto) 0.0 Abs Immat Gran (auto) 0.02 Absolute Neuts (auto) 4.4 Absolute Nucleated RBC 0.000 Nucleated RBC % 0.0 Sodium 138 Potassium 5.0 Chloride 104 Carbon Dioxide 30 Anion Gap 4 BUN 14 Creatinine 0.43 L Estim Creat Clear Calc 64 Estimated GFR > 60 Glucose 136 H Calcium 8.9 Magnesium 2.0 Total Bilirubin 0.3 AST 29 ALT 19 Alkaline Phosphatase 87 Total Protein 6.0 L Albumin 2.9 L Quality VTE Prophylaxis VTE prophylaxis: mechanical ordered and pharmacologic ordered
--- NOTE | 2024-08-07 11:46 | PCNFU ---
Nutrition Follow-Up Complete: Severe protein calorie malnutrition related chronic taste changes, poor appetite, nausea as evidenced by intakes <75% needs >1 month; weight loss -15%/3 months; moderate fat loss, severe muscle wasting Improve PO intake >50% meals and supplements - Progressing slowly with intakes Goal: Pt current nutrition is Full liquid, low fat diet. Ensure Enlive TID (350 kcal, 20 g protein). Nutrition recommendation: No new nutrition recommendations. Continue orders Last recorded weight is 67.4 kg. Bowel Motility: +1 BM / Labs Reviewed: Hgb 9.2, Hct 30.6, Alb 2.9, Cre 0.43, Glu 136 Meds Noted: Protonix, Zofran, B12 Skin: No skin issues Additional Notes: Had a biliary stent placed yesterday. Advance diet as medically able. Appetite a bit better overall, did not eat breakfast. Agree with current orders. Monitoring intakes, weights, labs, supplement tolerance, plan of care Follow up in 5 days
[2024-08-07] MEDS: traMADol HCL (*CRX) 50 MG TABLET PO (13:13)
--- NOTE | 2024-08-07 17:18 | P.PNGI_ITS ---
Progress Note: A&P Assessment and Plan (1) Bile leak, postoperative: Code(s): K91.89 - Other postprocedural complications and disorders of digestive system; K83.8 - Other specified diseases of biliary tract Status: Acute Assessment and Plan: treated with ercp and biliary stent, will expect that output from SRAVAN will go down ercp in 2-3 months to remove stent (2) Acute cholecystitis: Code(s): K81.0 - Acute cholecystitis Status: Acute Assessment and Plan: s/p cholecystectomy management per surgery team (3) Iron deficiency anemia: Code(s): D50.9 - Iron deficiency anemia, unspecified Status: Acute (4) Moderate protein-calorie malnutrition: Code(s): E44.0 - Moderate protein-calorie malnutrition Status: Acute Subjective Date/time seen: 08/07/24 17:18 Interval history: ercp yesterday with sphincterotomy with + bile leak and placement of biliary stent she has some pain at site of SRAVAN drain Review of Systems Review of Systems: All systems reviewed & are unremarkable except as noted in HPI and below Exam Const: General: comfortable and no acute distress Orientation/consciousness: patient oriented x3 HENMT: Face/Nose/Sinus: Normal nares present Eyes: General: appearance normal, both eyes and all related structures Neck: Neck: supple Resp: Effort & Inspection: normal respiratory effort Auscultation: clear to auscultation bilaterally Cardio: Rate: regular rate GI: Inspection: non-distended and incision (port site incisions are healing well with no erythema or drainage) GI Palp: Yes Soft to palpation, No Tenderness to palpation present (GI) and No Guarding due to palpation present (GI) Auscultation: normal bowel sounds Other: RUQ SRAVAN drain with small amount of bilious output Skin: General skin exam: normal color Neuro: Speech: normal speech Motor exam (neuro): 5/5 motor strength present throughout Extrem: General: normal to inspection Psych: Mental Status: mental status grossly normal Objective Data Vital Signs Vital Signs: Vital Signs - 24 hr 08/06/24 20:10 08/06/24 20:39 08/07/24 00:00 Temperature 97.2 F L Pulse Rate 80 92 75 Respiratory Rate 16 Blood Pressure 130/68 Pulse Oximetry 97 Oxygen Delivery Oxygen Flow Rate 08/07/24 04:00 08/07/24 06:00 08/07/24 08:00 Temperature 96.9 F L Pulse Rate 79 76 Respiratory Rate 18 Blood Pressure 114/68 Pulse Oximetry 99 99 Oxygen Delivery Nasal Cannula Oxygen Flow Rate 2 08/07/24 08:00 08/07/24 12:00 08/07/24 14:12 Temperature 98.2 F Pulse Rate 72 95 95 Respiratory Rate 16 Blood Pressure 117/51 L Pulse Oximetry 97 Oxygen Delivery Oxygen Flow Rate 08/07/24 14:35 08/07/24 16:00 Temperature Pulse Rate 101 H Respiratory Rate Blood Pressure Pulse Oximetry 93 Oxygen Delivery Room Air Oxygen Flow Rate Intake/Output Intake/Output: Intake & Output 08/04/24 08/05/24 08/06/24 08/07/24 23:59 23:59 23:59 23:59 Intake Total 2287 1420 600 600 Output Total 641 70 20 435 Balance 1646 1350 580 165 Meds/Results Medications: Active Medications Generic Name Dose Route Start Last Admin Trade Name Freq PRN Reason Stop Dose Admin Acetaminophen 1,000 mg 07/22/24 08:52 08/04/24 22:25 Acetaminophen 500 Mg Tablet PO 1,000 mg Q6H PRN Administration Mild Pain (1-3) or Fever Amitriptyline HCl 20 mg 07/21/24 21:15 08/06/24 21:15 Amitriptyline Hcl 10 Mg Tablet PO 20 mg QHS MELISSA Administration Amoxicillin/Clavulanate Potassium 1 tablet 08/02/24 21:00 08/07/24 09:47 Amoxicillin/Clavulanate K 875-125 Mg Tab PO 1 tablet Q12HR MELISSA Administration Atorvastatin Calcium 40 mg 07/21/24 21:15 08/06/24 21:16 Atorvastatin 40 Mg Tablet PO 40 mg QHS MELISSA Administration Cyanocobalamin 500 mcg 07/22/24 09:00 08/07/24 09:46 Cyanocobalamin 500 Mcg Tablet PO 500 mcg QAM MELISSA Administration Cyanocobalamin 2,000 mcg 07/22/24 09:00 08/07/24 09:46 Cyanocobalamin 1,000 Mcg Tablet PO 2,000 mcg QAM MELISSA Administration Enoxaparin Sodium 40 mg 08/01/24 09:00 08/07/24 09:46 Enoxaparin 40 Mg/0.4 Ml Syringe SUB-Q 40 mg DAILY MELISSA Administration Gabapentin 200 mg 07/22/24 09:00 08/07/24 16:31 Gabapentin 100 Mg Capsule PO 200 mg BID MELISSA Administration Levothyroxine Sodium 25 mcg 07/22/24 06:30 08/06/24 09:40 Levothyroxine Sodium 25 Mcg Tablet PO 25 mcg DAILY@0630 MELISSA Administration Metoprolol Succinate 100 mg 08/08/24 09:00 Metoprolol Succinate Ext Rel 100 Mg Tabcr PO QAM MELISSA Morphine Sulfate 2 mg 07/30/24 22:38 07/30/24 23:22 Morphine Sulfate (*Crx) 2 Mg/Ml Inj IV PUSH 2 mg Q4H PRN Administration pain 7-10 Ondansetron HCl 4 mg 07/22/24 08:52 07/30/24 23:22 Ondansetron Inj 4 Mg/2 Ml Vial IV PUSH 4 mg Q6H PRN Administration Nausea And Vomiting Ondansetron HCl 4 mg 08/05/24 12:23 08/05/24 12:38 Ondansetron Hcl Odt 4 Mg Tablet PO 4 mg Q6H PRN Administration Nausea And Vomiting Pantoprazole Sodium 40 mg 07/22/24 09:00 08/07/24 09:47 Pantoprazole 40 Mg Tablet PO 40 mg QAM MELISSA Administration Tamsulosin HCl 0.4 mg 07/22/24 09:00 08/07/24 09:47 Tamsulosin Hcl 0.4 Mg Capsule PO 0.4 mg DAILY MELISSA Administration Tramadol HCl 50 mg 08/02/24 09:21 08/07/24 13:13 Tramadol Hcl (*Crx) 50 Mg Tablet PO 50 mg Q6H PRN Administration Pain Rated 4-6 Radiology Results: ITS Impressions Abdomen/Pelvis CT 07/22/24 08:52 Impression: Percutaneous cholecystostomy tube in place with distended irregular gallbladder with marked irregular wall thickening and pericholecystic infarct or change, compatible with acute cholecystitis. Fluid-filled tract communicating with the gallbladder lumen at the superior aspect, which represents a tract related to prior cholecystostomy tube placement, with extension into the anterior abdominal wall. Additional suspected area of contained perforation at the inferior aspect of the gallbladder, which is new from prior exam. Acute L1 compression fracture, new from prior exam. Worsening T12 compression fracture as compared to prior exam with progressive loss of height. Cholecystostomy 07/23/24 14:08 IMPRESSION: 1. Successful upsizing to 12 [place] of a right upper quadrant percutaneous cholecystostomy tube. 2. Patent cystic and common bile ducts. Chest X-Ray 08/04/24 13:43 IMPRESSION: Bibasilar atelectasis versus with left pleural effusion. Labs Labs: Laboratory Results - last 24 hr 08/07/24 04:56 WBC 5.9 RBC 3.26 L Hgb 9.2 L Hct 30.6 L MCV 93.9 MCH 28.2 MCHC 30.1 L RDW 15.2 H Plt Count 258 MPV 9.8 Immature Gran % (Auto) 0.3 Neut % (Auto) 73.9 H Lymph % (Auto) 20.7 [place] % (Auto) 4.8 Eos % (Auto) 0.0 Baso % (Auto) 0.3 Lymph # (Auto) 1.22 [place] # (Auto) 0.3 Eos # (Auto) 0.0 Baso # (Auto) 0.0 Abs Immat Gran (auto) 0.02 Absolute Neuts (auto) 4.4 Absolute Nucleated RBC 0.000 Nucleated RBC % 0.0 Sodium 138 Potassium 5.0 Chloride 104 Carbon Dioxide 30 Anion Gap 4 BUN 14 Creatinine 0.43 L Estim Creat Clear Calc 64 Estimated GFR > 60 Glucose 136 H Calcium 8.9 Magnesium 2.0 Total Bilirubin 0.3 AST 29 ALT 19 Alkaline Phosphatase 87 Total Protein 6.0 L Albumin 2.9 L
[2024-08-07] MEDS: AMITRIPTYLINE HCL 10 MG TABLET 20 MG PO (21:26)
[2024-08-07] MEDS: ATORVASTATIN 40 MG TABLET PO (21:26)
[2024-08-08] VITALS (9 sets, daily range): BP systolic 111–129; BP diastolic 52–63; PULSE 90–121; RESP 15–20; TEMP 36.4–37.4; O2SAT 99–100
[2024-08-08] MEDS: traMADol HCL (*CRX) 50 MG TABLET PO (05:50)
[2024-08-08] MEDS: LEVOTHYROXINE SODIUM 25 MCG TABLET PO (05:50)
[2024-08-08 06:12] LABS: Basophils Percent Auto 0.1 % (0.2-1.2); Eosinophils Absolute Auto 0.1 K/mm3 (0-0.3); Eosinophils Percent Auto 0.7 % (0-4.4); Hematocrit 30.1 % (37.0-47.0); Immature Granulocyte Absolute 0.05 K/mm3 (0.00-0.031); Immature Granulocyte Percent A 0.4 % (0-0.5); Lymphocytes Absolute Auto 1.82 K/mm3 (0.9-3.2); Lymphocytes Percent Auto 16.1 % (18.3-44.2); Mean Corpuscular HGB Conc 29.9 g/dl (32-36); Mean Corpuscular Hemoglobin 28.6 pg (26-34); Mean Corpuscular Volume 95.6 fl (80-100); Mean Platelet Volume 9.9 fl (7.4-10.4); Monocytes Absolute Auto 1.1 K/mm3 (0.1-0.6); Monocytes Percent Auto 9.8 % (2.6-8.5); Neutrophils Absolute Auto 8.3 K/mm3 (1.3-6.7); Neutrophils Percent Auto 72.9 % (45.5-73.1); Platelet Count Result 261 k/mm3 (150-375); Red Blood Count 3.15 M/mm3 (4.2-5.4); White Blood Count 11.3 K/mm3 (4.5-10.0)
[2024-08-08 06:33] LABS: Alanine Aminotransferase 18 U/L (6-35); Albumin Level 2.9 g/dL (3.5-5.1); Alkaline Phosphatase 85 U/L (38-126); Anion Gap 4 mmol/L (4-12); Aspartate Amino Transferase 25 U/L (14-36); Bilirubin,Total 0.3 mg/dL (0.2-1.3); Blood Urea Nitrogen 14 mg/dL (7-17); Calcium 8.5 mg/dL (8.4-10.2); Carbon Dioxide 32 mmol/L (22-30); Chloride 102 mmol/L (98-107); Estimated CRCL calculation 51 ml/min; Estimated Glomerular Filt Rate > 60; Glucose 126 mg/dL (65-110); Magnesium 1.7 mg/dL (1.6-2.3); Potassium 4.3 mmol/L (3.4-5.0); Sodium 138 mmol/L (137-145)
[2024-08-08 06:49] LABS: Hypochromasia 1+; Platelet Estimate Adequate (Adequate); Schistocytes None Seen
--- NOTE | 2024-08-08 09:36 | PCOTNOTE ---
Attempted to see pt for OT treatment this AM. Pt's daughter present and Pt is currently sleeping very heavily influenced by recent pain medication administration. Pt's daughter states that pt has not even woken up yet for breakfast and ask to have pt continue to sleep. RN was made aware of pt's disposition. Will continue per poc duration/frequency.
--- NOTE | 2024-08-08 11:11 | P.PNIM_ITS ---
Progress Note: A&P Assessment and Plan (1) Acute cholecystitis: Code(s): K81.0 - Acute cholecystitis Status: Acute Assessment and Plan: * Cholecystostomy tube 07/23 in IR. * Continue have purulent discharge from the cholecystotomy tube * Management per general surgeon * She is status post cholecystectomy 07/31/2024. * Augmentin 875-125 mg 1 tablet PO q 12. * GI consult. ERCP done 08/06 and stent successfully placed across biliary leak. Patient will need an ERCP again in 8-10 weeks to remove stent. * Low fat diet. (2) Essential hypertension: Code(s): I10 - Essential (primary) hypertension Status: Acute Assessment and Plan: * Metoprolol Succinate 100 mg PO QAM, home dose. * Blood pressure 126/62. (3) Coronary artery disease involving [place] coronary artery of n[place]ana heart: Code(s): I25.10 - Atherosclerotic heart disease of [place] coronary artery without angina pectoris Status: Acute Assessment and Plan: * Atorvastatin 40 mg PO QHS. (4) Severe protein-calorie malnutrition: Code(s): E43 - Unspecified severe protein-calorie malnutrition Status: Acute Assessment and Plan: * Protein 6.0. * Severe protein calorie malnutrition related to taste changes, poor appetite, nausea as evidenced by intakes <75% needs >1 month. Weight loss-15%/3 months: moderate fat loss, severe muscle wasting. * Ensure Enlive TID and Nutritional ice cream TID. * Animal Care Supervisor following. (5) Atrial fibrillation: Qualifiers: Atrial fibrillation type: unspecified Qualified Code(s): I48.91 - Unspecified atrial fibrillation Code(s): I48.91 - Unspecified atrial fibrillation Status: Acute Assessment and Plan: * Metoprolol Succinate 100 mg PO daily. * Lovenox 40 mg subq daily. * Telemetry. * Eliquis on hold until evaluated by GI. (6) Hypothyroidism: Code(s): E03.9 - Hypothyroidism, unspecified Status: Acute Assessment and Plan: * Levothyroxine 25 mcg PO daily. (7) T12 compression fracture: Code(s): S22.080A - Wedge compression fracture of T11-T12 vertebra, initial encounter for closed fracture Status: Acute Assessment and Plan: * Patient is followed by pain management and to have kyphoplasty, patient was supposed to have this week but ended up hospitalized. * TLSO ordered. * PT/OT * No focal deficits no urinary fecal incontinence Subjective Date/time seen: 08/08/24 11:11 Interval history: Patient drowsy this morning but answering questions appropriately. Later called by nurse that patient was not answering all questions and not moving left arm when asked. Patient drowsy and mentioned having a dream. Patient denied pain, palpitations, headache, dizziness, nausea, vomiting, abdominal pain, or shortness of breath. Patient was alert and oriented x 3 but at times took a little while to answer. PERRLA. equal research associate, smile equal, moved both arms after demonstrated to lift left arm. Head CT was obtained and result was negative. Surgery also stopped by to check on patient. Daughter at bedside. Review of Systems Review of Systems: All systems reviewed & are unremarkable except as noted in HPI and below Exam Const: General: comfortable and no acute distress Eyes: Pupils: Equal, round and reactive pupils present Resp: Effort & Inspection: normal respiratory effort Auscultation: clear to auscultation bilaterally Cardio: Rate: regular rate Rhythm: regular rhythm Other: [id number] GI: GI Palp: Yes Soft to palpation Auscultation: normal bowel sounds Other: Abdominal dressing C/D/I. SRAVAN drain with small amount of bilious drainage. Neuro: Speech: normal speech Extrem: General: no pedal edema Psych: Mental Status: mental status grossly normal Other: Drowsy off and on but answering appropriately. Objective Data Vital Signs Vital Signs: Vital Signs - 24 hr 08/07/24 12:00 08/07/24 14:12 08/07/24 14:35 Temperature 98.2 F Pulse Rate 95 95 Respiratory Rate 16 Blood Pressure 117/51 L Pulse Oximetry 97 93 Oxygen Delivery Room Air Fraction of Inspired Oxygen 08/07/24 16:00 08/07/24 20:00 08/07/24 20:00 Temperature Pulse Rate 101 H 106 H Respiratory Rate Blood Pressure Pulse Oximetry Oxygen Delivery Room Air Fraction of Inspired Oxygen 08/07/24 21:05 08/08/24 00:00 08/08/24 04:00 Temperature 98.7 F Pulse Rate 106 H 121 H 98 Respiratory Rate 16 Blood Pressure 127/92 H Pulse Oximetry 92 Oxygen Delivery Fraction of Inspired Oxygen 08/08/24 05:36 08/08/24 08:00 08/08/24 08:00 Temperature 97.9 F Pulse Rate 98 97 97 Respiratory Rate 16 16 Blood Pressure 111/52 L Pulse Oximetry 99 99 Oxygen Delivery Room Air Fraction of Inspired Oxygen 21 Intake/Output Intake/Output: Intake & Output 08/05/24 08/06/24 08/07/24 08/08/24 23:59 23:59 23:59 23:59 Intake Total 8225 222 5535 100 Output Total 70 20 585 430 Balance 1350 580 605 -330 Meds/Results Medications: Active Medications Generic Name Dose Route Start Last Admin Trade Name Freq PRN Reason Stop Dose Admin Acetaminophen 1,000 mg 07/22/24 08:52 08/04/24 22:25 Acetaminophen 500 Mg Tablet PO 1,000 mg Q6H PRN Administration Mild Pain (1-3) or Fever Amitriptyline HCl 20 mg 07/21/24 21:15 08/07/24 21:26 Amitriptyline Hcl 10 Mg Tablet PO 20 mg QHS MELISSA Administration Amoxicillin/Clavulanate Potassium 1 tablet 08/02/24 21:00 08/08/24 08:42 Amoxicillin/Clavulanate K 875-125 Mg Tab PO 1 tablet Q12HR MELISSA Administration Atorvastatin Calcium 40 mg 07/21/24 21:15 08/07/24 21:26 Atorvastatin 40 Mg Tablet PO 40 mg QHS MELISSA Administration Cyanocobalamin 500 mcg 07/22/24 09:00 08/08/24 08:42 Cyanocobalamin 500 Mcg Tablet PO 500 mcg QAM MELISSA Administration Cyanocobalamin 2,000 mcg 07/22/24 09:00 08/08/24 08:42 Cyanocobalamin 1,000 Mcg Tablet PO 2,000 mcg QAM MELISSA Administration Enoxaparin Sodium 40 mg 08/01/24 09:00 08/08/24 08:43 Enoxaparin 40 Mg/0.4 Ml Syringe SUB-Q 40 mg DAILY MELISSA Administration Gabapentin 200 mg 07/22/24 09:00 08/08/24 08:42 Gabapentin 100 Mg Capsule PO 200 mg BID MELISSA Administration Levothyroxine Sodium 25 mcg 07/22/24 06:30 08/08/24 05:50 Levothyroxine Sodium 25 Mcg Tablet PO 25 mcg DAILY@0630 MELISSA Administration Metoprolol Succinate 100 mg 08/08/24 09:00 08/08/24 08:42 Metoprolol Succinate Ext Rel 100 Mg Tabcr PO 100 mg QAM MELISSA Administration Morphine Sulfate 2 mg 07/30/24 22:38 07/30/24 23:22 Morphine Sulfate (*Crx) 2 Mg/Ml Inj IV PUSH 2 mg Q4H PRN Administration pain 7-10 Ondansetron HCl 4 mg 07/22/24 08:52 07/30/24 23:22 Ondansetron Inj 4 Mg/2 Ml Vial IV PUSH 4 mg Q6H PRN Administration Nausea And Vomiting Ondansetron HCl 4 mg 08/05/24 12:23 08/05/24 12:38 Ondansetron Hcl Odt 4 Mg Tablet PO 4 mg Q6H PRN Administration Nausea And Vomiting Pantoprazole Sodium 40 mg 07/22/24 09:00 08/08/24 08:42 Pantoprazole 40 Mg Tablet PO 40 mg QAM MELISSA Administration Tamsulosin HCl 0.4 mg 07/22/24 09:00 08/08/24 08:42 Tamsulosin Hcl 0.4 Mg Capsule PO 0.4 mg DAILY MELISSA Administration Tramadol HCl 50 mg 08/02/24 09:21 08/08/24 05:50 Tramadol Hcl (*Crx) 50 Mg Tablet PO 50 mg Q6H PRN Administration Pain Rated 4-6 Radiology Results: ITS Impressions Abdomen/Pelvis CT 07/22/24 08:52 Impression: Percutaneous cholecystostomy tube in place with distended irregular gallbladder with marked irregular wall thickening and pericholecystic infarct or change, compatible with acute cholecystitis. Fluid-filled tract communicating with the gallbladder lumen at the superior aspect, which represents a tract related to prior cholecystostomy tube placement, with extension into the anterior abdominal wall. Additional suspected area of contained perforation at the inferior aspect of the gallbladder, which is new from prior exam. Acute L1 compression fracture, new from prior exam. Worsening T12 compression fracture as compared to prior exam with progressive loss of height. Cholecystostomy 07/23/24 14:08 IMPRESSION: 1. Successful upsizing to 12 [place] of a right upper quadrant percutaneous cholecystostomy tube. 2. Patent cystic and common bile ducts. Chest X-Ray 08/04/24 13:43 IMPRESSION: Bibasilar atelectasis versus with left pleural effusion. Labs Labs: Laboratory Results - last 24 hr 08/08/24 05:33 WBC 11.3 H RBC 3.15 L Hgb 9.0 L Hct 30.1 L MCV 95.6 MCH 28.6 MCHC 29.9 L RDW 16.0 H Plt Count 261 MPV 9.9 Immature Gran % (Auto) 0.4 Neut % (Auto) 72.9 Lymph % (Auto) 16.1 L [place] % (Auto) 9.8 H Eos % (Auto) 0.7 Baso % (Auto) 0.1 L Lymph # (Auto) 1.82 [place] # (Auto) 1.1 H Eos # (Auto) 0.1 Baso # (Auto) 0.0 Abs Immat Gran (auto) 0.05 H Absolute Neuts (auto) 8.3 H Absolute Nucleated RBC 0.000 Band Neutrophils % Not Reportable Nucleated RBC % 0.0 Platelet Estimate Adequate Hypochromasia 1+ Schistocytes None seen Sodium 138 Potassium 4.3 Chloride 102 Carbon Dioxide 32 H Anion Gap 4 BUN 14 Creatinine 0.55 L Estim Creat Clear Calc 51 Estimated GFR > 60 Glucose 126 H Calcium 8.5 Magnesium 1.7 Total Bilirubin 0.3 AST 25 ALT 18 Alkaline Phosphatase 85 Total Protein 6.0 L Albumin 2.9 L Quality VTE Prophylaxis VTE prophylaxis: mechanical ordered and pharmacologic ordered
--- NOTE | 2024-08-08 11:17 | P.PNGI_ITS ---
Progress Note: A&P Assessment and Plan (1) Bile leak, postoperative: Code(s): K91.89 - Other postprocedural complications and disorders of digestive system; K83.8 - Other specified diseases of biliary tract Status: Acute Assessment and Plan: treated with ercp and biliary stent, noted less output from SRAVAN ercp in 2-3 months to remove stent some abdominal pain, normal liver enzymes but will check lipase (2) Acute cholecystitis: Code(s): K81.0 - Acute cholecystitis Status: Acute Assessment and Plan: s/p cholecystectomy management per surgery team (3) Iron deficiency anemia: Code(s): D50.9 - Iron deficiency anemia, unspecified Status: Acute (4) Moderate protein-calorie malnutrition: Code(s): E44.0 - Moderate protein-calorie malnutrition Status: Acute Subjective Date/time seen: 08/08/24 11:17 Interval history: had sharp pain in ruq and got tramadol earlier this morning, still sleeping noted decrease bilious output from SRAVAN drain Review of Systems Review of Systems: All systems reviewed & are unremarkable except as noted in HPI and below Exam Const: Other: sleeping today after pain medication HENMT: Face/Nose/Sinus: Normal nares present Eyes: General: appearance normal, both eyes and all related structures Neck: Neck: supple Resp: Effort & Inspection: normal respiratory effort Auscultation: clear to auscultation bilaterally Cardio: Rate: regular rate GI: Inspection: non-distended and incision (port site incisions are healing well with no erythema or drainage) GI Palp: Yes Soft to palpation and Yes Tenderness to palpation present (GI) (mild ttp in ruq) Auscultation: normal bowel sounds Other: RUQ SRAVAN drain with small amount of bilious output Skin: General skin exam: normal color Neuro: Other: drowsy Extrem: General: normal to inspection Objective Data Vital Signs Vital Signs: Vital Signs - 24 hr 08/07/24 12:00 08/07/24 14:12 08/07/24 14:35 Temperature 98.2 F Pulse Rate 95 95 Respiratory Rate 16 Blood Pressure 117/51 L Pulse Oximetry 97 93 Oxygen Delivery Room Air Fraction of Inspired Oxygen 08/07/24 16:00 08/07/24 20:00 08/07/24 20:00 Temperature Pulse Rate 101 H 106 H Respiratory Rate Blood Pressure Pulse Oximetry Oxygen Delivery Room Air Fraction of Inspired Oxygen 08/07/24 21:05 08/08/24 00:00 08/08/24 04:00 Temperature 98.7 F Pulse Rate 106 H 121 H 98 Respiratory Rate 16 Blood Pressure 127/92 H Pulse Oximetry 92 Oxygen Delivery Fraction of Inspired Oxygen 08/08/24 05:36 08/08/24 08:00 08/08/24 08:00 Temperature 97.9 F Pulse Rate 98 97 97 Respiratory Rate 16 16 Blood Pressure 111/52 L Pulse Oximetry 99 99 Oxygen Delivery Room Air Fraction of Inspired Oxygen 21 Intake/Output Intake/Output: Intake & Output 08/05/24 08/06/24 08/07/24 08/08/24 23:59 23:59 23:59 23:59 Intake Total 1738 893 1874 100 Output Total 70 20 585 430 Balance 1350 580 605 -330 Meds/Results Medications: Active Medications Generic Name Dose Route Start Last Admin Trade Name Freq PRN Reason Stop Dose Admin Acetaminophen 1,000 mg 07/22/24 08:52 08/04/24 22:25 Acetaminophen 500 Mg Tablet PO 1,000 mg Q6H PRN Administration Mild Pain (1-3) or Fever Amitriptyline HCl 20 mg 07/21/24 21:15 08/07/24 21:26 Amitriptyline Hcl 10 Mg Tablet PO 20 mg QHS MELISSA Administration Amoxicillin/Clavulanate Potassium 1 tablet 08/02/24 21:00 08/08/24 08:42 Amoxicillin/Clavulanate K 875-125 Mg Tab PO 1 tablet Q12HR MELISSA Administration Atorvastatin Calcium 40 mg 07/21/24 21:15 08/07/24 21:26 Atorvastatin 40 Mg Tablet PO 40 mg QHS MELISSA Administration Cyanocobalamin 500 mcg 07/22/24 09:00 08/08/24 08:42 Cyanocobalamin 500 Mcg Tablet PO 500 mcg QAM MELISSA Administration Cyanocobalamin 2,000 mcg 07/22/24 09:00 08/08/24 08:42 Cyanocobalamin 1,000 Mcg Tablet PO 2,000 mcg QAM MELISSA Administration Enoxaparin Sodium 40 mg 08/01/24 09:00 08/08/24 08:43 Enoxaparin 40 Mg/0.4 Ml Syringe SUB-Q 40 mg DAILY MELISSA Administration Gabapentin 200 mg 07/22/24 09:00 08/08/24 08:42 Gabapentin 100 Mg Capsule PO 200 mg BID MELISSA Administration Levothyroxine Sodium 25 mcg 07/22/24 06:30 08/08/24 05:50 Levothyroxine Sodium 25 Mcg Tablet PO 25 mcg DAILY@0630 MELISSA Administration Metoprolol Succinate 100 mg 08/08/24 09:00 08/08/24 08:42 Metoprolol Succinate Ext Rel 100 Mg Tabcr PO 100 mg QAM MELISSA Administration Morphine Sulfate 2 mg 07/30/24 22:38 07/30/24 23:22 Morphine Sulfate (*Crx) 2 Mg/Ml Inj IV PUSH 2 mg Q4H PRN Administration pain 7-10 Ondansetron HCl 4 mg 07/22/24 08:52 07/30/24 23:22 Ondansetron Inj 4 Mg/2 Ml Vial IV PUSH 4 mg Q6H PRN Administration Nausea And Vomiting Ondansetron HCl 4 mg 08/05/24 12:23 08/05/24 12:38 Ondansetron Hcl Odt 4 Mg Tablet PO 4 mg Q6H PRN Administration Nausea And Vomiting Pantoprazole Sodium 40 mg 07/22/24 09:00 08/08/24 08:42 Pantoprazole 40 Mg Tablet PO 40 mg QAM MELISSA Administration Tamsulosin HCl 0.4 mg 07/22/24 09:00 08/08/24 08:42 Tamsulosin Hcl 0.4 Mg Capsule PO 0.4 mg DAILY MELISSA Administration Tramadol HCl 50 mg 08/02/24 09:21 08/08/24 05:50 Tramadol Hcl (*Crx) 50 Mg Tablet PO 50 mg Q6H PRN Administration Pain Rated 4-6 Radiology Results: ITS Impressions Abdomen/Pelvis CT 07/22/24 08:52 Impression: Percutaneous cholecystostomy tube in place with distended irregular gallbladder with marked irregular wall thickening and pericholecystic infarct or change, compatible with acute cholecystitis. Fluid-filled tract communicating with the gallbladder lumen at the superior aspect, which represents a tract related to prior cholecystostomy tube placement, with extension into the anterior abdominal wall. Additional suspected area of contained perforation at the inferior aspect of the gallbladder, which is new from prior exam. Acute L1 compression fracture, new from prior exam. Worsening T12 compression fracture as compared to prior exam with progressive loss of height. Cholecystostomy 07/23/24 14:08 IMPRESSION: 1. Successful upsizing to 12 [place] of a right upper quadrant percutaneous cholecystostomy tube. 2. Patent cystic and common bile ducts. Chest X-Ray 08/04/24 13:43 IMPRESSION: Bibasilar atelectasis versus with left pleural effusion. Labs Labs: Laboratory Results - last 24 hr 08/08/24 05:33 WBC 11.3 H RBC 3.15 L Hgb 9.0 L Hct 30.1 L MCV 95.6 MCH 28.6 MCHC 29.9 L RDW 16.0 H Plt Count 261 MPV 9.9 Immature Gran % (Auto) 0.4 Neut % (Auto) 72.9 Lymph % (Auto) 16.1 L [place] % (Auto) 9.8 H Eos % (Auto) 0.7 Baso % (Auto) 0.1 L Lymph # (Auto) 1.82 [place] # (Auto) 1.1 H Eos # (Auto) 0.1 Baso # (Auto) 0.0 Abs Immat Gran (auto) 0.05 H Absolute Neuts (auto) 8.3 H Absolute Nucleated RBC 0.000 Band Neutrophils % Not Reportable Nucleated RBC % 0.0 Platelet Estimate Adequate Hypochromasia 1+ Schistocytes None seen Sodium 138 Potassium 4.3 Chloride 102 Carbon Dioxide 32 H Anion Gap 4 BUN 14 Creatinine 0.55 L Estim Creat Clear Calc 51 Estimated GFR > 60 Glucose 126 H Calcium 8.5 Magnesium 1.7 Total Bilirubin 0.3 AST 25 ALT 18 Alkaline Phosphatase 85 Total Protein 6.0 L Albumin 2.9 L
[2024-08-08 13:01] LABS: Glucose Point of Care 106 mg/dl (65-105)
--- NOTE | 2024-08-08 13:10 | P.PNGS_ITS ---
Progress Note: A&P Assessment and Plan (1) Change in mental status: Code(s): R41.82 - Altered mental status, unspecified Status: Acute Assessment and Plan: Will get stat CT head to evaluate, appreciate hospitalist input (2) Bile leak, postoperative: Code(s): K91.89 - Other postprocedural complications and disorders of digestive system; K83.8 - Other specified diseases of biliary tract Status: Acute Assessment and Plan: Exam benign, drain with moderate bilious output (around 30 cc overnight), labs unremarkable, continue antibiotics Subjective Subjective Date/Time Seen: 08/08/24 13:10 Interval history: Patient seen regarding mental status change, noted to be very lethargic and minimally responsive Review of Systems Review of Systems: ROS unobtainable: Yes unobtainable due to mental status Exam Const: General: no acute distress, lethargic and tired appearing HENMT: Head: normal to inspection Resp: Auscultation: clear to auscultation bilaterally Cardio: Rate: regular rate Rhythm: regular rhythm GI: Inspection: normal to inspection, non-distended and incision GI Palp: No abdominal tenderness and Yes Soft to palpation Other: Drain with moderate bilious output Objective Data Vital Signs Vital Signs: Vital Signs - 24 hr 08/07/24 14:12 08/07/24 14:35 08/07/24 16:00 Temperature 36.8 C Pulse Rate 95 101 H Respiratory Rate 16 Blood Pressure 117/51 L Pulse Oximetry 97 93 Oxygen Delivery Room Air Fraction of Inspired Oxygen 08/07/24 20:00 08/07/24 20:00 08/07/24 21:05 Temperature 37.1 C Pulse Rate 106 H 106 H Respiratory Rate 16 Blood Pressure 127/92 H Pulse Oximetry 92 Oxygen Delivery Room Air Fraction of Inspired Oxygen 08/08/24 00:00 08/08/24 04:00 08/08/24 05:36 Temperature 36.6 C Pulse Rate 121 H 98 98 Respiratory Rate 16 Blood Pressure 111/52 L Pulse Oximetry 99 Oxygen Delivery Fraction of Inspired Oxygen 08/08/24 08:00 08/08/24 08:00 08/08/24 12:48 Temperature 36.4 C Pulse Rate 97 97 90 Respiratory Rate 16 15 Blood Pressure 129/54 L Pulse Oximetry 99 100 Oxygen Delivery Room Air Fraction of Inspired Oxygen 21 Intake/Output Intake/Output: Intake & Output 08/05/24 08/06/24 08/07/24 08/08/24 23:59 23:59 23:59 23:59 Intake Total 0181 098 0499 100 Output Total 70 20 585 430 Balance 1350 580 605 -330 Meds/Results Medications: Active Medications Generic Name Dose Route Start Last Admin Trade Name Freq PRN Reason Stop Dose Admin Acetaminophen 1,000 mg 07/22/24 08:52 08/04/24 22:25 Acetaminophen 500 Mg Tablet PO 1,000 mg Q6H PRN Administration Mild Pain (1-3) or Fever Amitriptyline HCl 20 mg 07/21/24 21:15 08/07/24 21:26 Amitriptyline Hcl 10 Mg Tablet PO 20 mg QHS MELISSA Administration Amoxicillin/Clavulanate Potassium 1 tablet 08/02/24 21:00 08/07/24 21:26 Amoxicillin/Clavulanate K 875-125 Mg Tab PO 1 tablet Q12HR MELISSA Administration Atorvastatin Calcium 40 mg 07/21/24 21:15 08/07/24 21:26 Atorvastatin 40 Mg Tablet PO 40 mg QHS MELISSA Administration Cyanocobalamin 500 mcg 07/22/24 09:00 08/07/24 09:46 Cyanocobalamin 500 Mcg Tablet PO 500 mcg QAM [facility] Administration Cyanocobalamin 2,000 mcg 07/22/24 09:00 08/07/24 09:46 Cyanocobalamin 1,000 Mcg Tablet PO 2,000 mcg QAM MELISSA Administration Enoxaparin Sodium 40 mg 08/01/24 09:00 08/07/24 09:46 Enoxaparin 40 Mg/0.4 Ml Syringe SUB-Q 40 mg DAILY MELISSA Administration Gabapentin 200 mg 07/22/24 09:00 08/07/24 16:31 Gabapentin 100 Mg Capsule PO 200 mg BID MELISSA Administration Levothyroxine Sodium 25 mcg 07/22/24 06:30 08/08/24 05:50 Levothyroxine Sodium 25 Mcg Tablet PO 25 mcg DAILY@0630 MELISSA Administration Metoprolol Succinate 100 mg 08/08/24 09:00 Metoprolol Succinate Ext Rel 100 Mg Tabcr PO QAM [facility] Morphine Sulfate 2 mg 07/30/24 22:38 07/30/24 23:22 Morphine Sulfate (*Crx) 2 Mg/Ml Inj IV PUSH 2 mg Q4H PRN Administration pain 7-10 Ondansetron HCl 4 mg 07/22/24 08:52 07/30/24 23:22 Ondansetron Inj 4 Mg/2 Ml Vial IV PUSH 4 mg Q6H PRN Administration Nausea And Vomiting Ondansetron HCl 4 mg 08/05/24 12:23 08/05/24 12:38 Ondansetron Hcl Odt 4 Mg Tablet PO 4 mg Q6H PRN Administration Nausea And Vomiting Pantoprazole Sodium 40 mg 07/22/24 09:00 08/07/24 09:47 Pantoprazole 40 Mg Tablet PO 40 mg QAM MELISSA Administration Tamsulosin HCl 0.4 mg 07/22/24 09:00 08/07/24 09:47 Tamsulosin Hcl 0.4 Mg Capsule PO 0.4 mg DAILY MELISSA Administration Tramadol HCl 50 mg 08/02/24 09:21 08/08/24 05:50 Tramadol Hcl (*Crx) 50 Mg Tablet PO 50 mg Q6H PRN Administration Pain Rated 4-6 Radiology Results: ITS Impressions Abdomen/Pelvis CT 07/22/24 08:52 Impression: Percutaneous cholecystostomy tube in place with distended irregular gallbladder with marked irregular wall thickening and pericholecystic infarct or change, compatible with acute cholecystitis. Fluid-filled tract communicating with the gallbladder lumen at the superior aspect, which represents a tract related to prior cholecystostomy tube placement, with extension into the anterior abdominal wall. Additional suspected area of contained perforation at the inferior aspect of the gallbladder, which is new from prior exam. Acute L1 compression fracture, new from prior exam. Worsening T12 compression fracture as compared to prior exam with progressive loss of height. Cholecystostomy 07/23/24 14:08 IMPRESSION: 1. Successful upsizing to 12 [place] of a right upper quadrant percutaneous cholecystostomy tube. 2. Patent cystic and common bile ducts. Chest X-Ray 08/04/24 13:43 IMPRESSION: Bibasilar atelectasis versus with left pleural effusion. Labs Labs: Laboratory Results - last 24 hr 08/08/24 08/08/24 05:33 12:58 WBC 11.3 H RBC 3.15 L Hgb 9.0 L Hct 30.1 L MCV 95.6 MCH 28.6 MCHC 29.9 L RDW 16.0 H Plt Count 261 MPV 9.9 Immature Gran % (Auto) 0.4 Neut % (Auto) 72.9 Lymph % (Auto) 16.1 L [place] % (Auto) 9.8 H Eos % (Auto) 0.7 Baso % (Auto) 0.1 L Lymph # (Auto) 1.82 [place] # (Auto) 1.1 H Eos # (Auto) 0.1 Baso # (Auto) 0.0 Abs Immat Gran (auto) 0.05 H Absolute Neuts (auto) 8.3 H Absolute Nucleated RBC 0.000 Band Neutrophils % Not Reportable Nucleated RBC % 0.0 Platelet Estimate Adequate Hypochromasia 1+ Schistocytes None seen Sodium 138 Potassium 4.3 Chloride 102 Carbon Dioxide 32 H Anion Gap 4 BUN 14 Creatinine 0.55 L Estim Creat Clear Calc 51 Estimated GFR > 60 Glucose 126 H POC Capillary Glucose 106 H Calcium 8.5 Magnesium 1.7 Total Bilirubin 0.3 AST 25 ALT 18 Alkaline Phosphatase 85 Total Protein 6.0 L Albumin 2.9 L
[2024-08-08] MEDS: AMOXICILLIN/CLAVULANATE K 875-125 MG TAB 1 TABLET PO (22:25)
[2024-08-08] MEDS: ACETAMINOPHEN 500 MG TABLET 1000 MG PO (22:25)
[2024-08-08] MEDS: AMITRIPTYLINE HCL 10 MG TABLET 20 MG PO (22:25)
[2024-08-08] MEDS: ATORVASTATIN 40 MG TABLET PO (22:25)
[2024-08-09] VITALS (12 sets, daily range): BP systolic 104–106; BP diastolic 47–54; PULSE 70–90; RESP 16; TEMP 36.6–37.3; O2SAT 83–100
[2024-08-09] MEDS: LEVOTHYROXINE SODIUM 25 MCG TABLET PO (05:17)
[2024-08-09 06:04] LABS: Basophils Percent Auto 0.2 % (0.2-1.2); Eosinophils Absolute Auto 0.2 K/mm3 (0-0.3); Eosinophils Percent Auto 1.8 % (0-4.4); Hematocrit 29.1 % (37.0-47.0); Hemoglobin 8.7 g/dL (12.0-15.0); Immature Granulocyte Absolute 0.09 K/mm3 (0.00-0.031); Immature Granulocyte Percent A 0.7 % (0-0.5); Lymphocytes Absolute Auto 1.82 K/mm3 (0.9-3.2); Lymphocytes Percent Auto 14.1 % (18.3-44.2); Mean Corpuscular HGB Conc 29.9 g/dl (32-36); Mean Corpuscular Hemoglobin 28.7 pg (26-34); Mean Platelet Volume 9.8 fl (7.4-10.4); Monocytes Absolute Auto 1.1 K/mm3 (0.1-0.6); Monocytes Percent Auto 8.1 % (2.6-8.5); Neutrophils Absolute Auto 9.7 K/mm3 (1.3-6.7); Neutrophils Percent Auto 75.1 % (45.5-73.1); Platelet Count Result 213 k/mm3 (150-375); Red Blood Count 3.03 M/mm3 (4.2-5.4); Red Cell Distribution Width 15.8 % (11.5-14.5); White Blood Count 12.9 K/mm3 (4.5-10.0)
[2024-08-09 06:27] LABS: Alanine Aminotransferase 15 U/L (6-35); Albumin Level 2.8 g/dL (3.5-5.1); Alkaline Phosphatase 73 U/L (38-126); Anion Gap 5 mmol/L (4-12); Aspartate Amino Transferase 25 U/L (14-36); Bilirubin,Total 0.6 mg/dL (0.2-1.3); Blood Urea Nitrogen 16 mg/dL (7-17); Calcium 8.6 mg/dL (8.4-10.2); Carbon Dioxide 32 mmol/L (22-30); Chloride 101 mmol/L (98-107); Estimated CRCL calculation 54 ml/min; Estimated Glomerular Filt Rate > 60; Glucose 102 mg/dL (65-110); Magnesium 1.8 mg/dL (1.6-2.3); Potassium 4.1 mmol/L (3.4-5.0); Sodium 138 mmol/L (137-145)
[2024-08-09 06:47] LABS: Hypochromasia 1+; Platelet Estimate Adequate (Adequate); Schistocytes None Seen
[2024-08-09 07:10] LABS: Lipase 19 U/L (23-300)
[2024-08-09] MEDS: PANTOPRAZOLE 40 MG TABLET PO (07:54)
[2024-08-09] MEDS: AMOXICILLIN/CLAVULANATE K 875-125 MG TAB 1 TABLET PO ×2 (07:54→21:02)
[2024-08-09] MEDS: TAMSULOSIN HCL 0.4 MG CAPSULE PO (07:54)
[2024-08-09] MEDS: GABAPENTIN 100 MG CAPSULE 200 MG PO ×2 (07:54→17:42)
[2024-08-09] MEDS: METOPROLOL SUCCINATE EXT REL 100 MG TABCR PO (07:54)
[2024-08-09] MEDS: ENOXAPARIN 40 MG/0.4 ML SYRINGE SUB-Q (07:55)
[2024-08-09] MEDS: CYANOCOBALAMIN 500 MCG TABLET PO (07:55)
[2024-08-09] MEDS: CYANOCOBALAMIN 1,000 MCG TABLET 2000 MCG PO (07:55)
--- NOTE | 2024-08-09 10:16 | P.PNGS_ITS ---
Progress Note: A&P Assessment and Plan (1) Bile leak, postoperative: Code(s): K91.89 - Other postprocedural complications and disorders of digestive system; K83.8 - Other specified diseases of biliary tract Status: Acute Assessment and Plan: continue drain for now, slight leukocytosis will continue to follow, LFTs within normal limits, exam benign Subjective Subjective Date/Time Seen: 08/09/24 10:16 Interval history: more alert today, back to baseline, tolerating diet Review of Systems Review of Systems: All systems reviewed & are unremarkable except as noted in HPI and below Exam Const: General: cooperative, comfortable, no acute distress and ill appearing Resp: Auscultation: clear to auscultation bilaterally Cardio: Rate: regular rate Rhythm: regular rhythm GI: Inspection: normal to inspection, non-distended and incision GI Palp: No abdominal tenderness and Yes Soft to palpation Other: drain with moderate bilious output Objective Data Vital Signs Vital Signs: Vital Signs - 24 hr 08/08/24 12:00 08/08/24 12:48 08/08/24 14:00 Temperature 36.4 C 37.1 C Pulse Rate 92 90 101 H Respiratory Rate 15 16 Blood Pressure 129/54 L 126/62 Pulse Oximetry 100 100 Oxygen Delivery Oxygen Flow Rate 08/08/24 20:00 08/08/24 20:00 08/08/24 21:04 Temperature 37.4 C Pulse Rate 95 97 Respiratory Rate 20 Blood Pressure 124/63 Pulse Oximetry 99 99 Oxygen Delivery Nasal Cannula Oxygen Flow Rate 2 08/09/24 00:00 08/09/24 04:00 08/09/24 05:41 Temperature 36.6 C Pulse Rate 72 70 70 Respiratory Rate 16 Blood Pressure 104/53 L Pulse Oximetry 100 Oxygen Delivery Oxygen Flow Rate 08/09/24 07:54 08/09/24 08:00 08/09/24 10:00 Temperature Pulse Rate 87 Respiratory Rate Blood Pressure Pulse Oximetry 90 83 L Oxygen Delivery Nasal Cannula Room Air Oxygen Flow Rate 2 08/09/24 10:10 Temperature Pulse Rate Respiratory Rate Blood Pressure Pulse Oximetry 97 Oxygen Delivery Nasal Cannula Oxygen Flow Rate 2 Intake/Output Intake/Output: Intake & Output 08/06/24 08/07/24 08/08/24 08/09/24 23:59 23:59 23:59 23:59 Intake Total 600 1190 440 300 Output Total 20 585 430 365 Balance 580 605 10 -65 Meds/Results Medications: Active Medications Generic Name Dose Route Start Last Admin Trade Name Freq PRN Reason Stop Dose Admin Acetaminophen 1,000 mg 07/22/24 08:52 08/08/24 22:25 Acetaminophen 500 Mg Tablet PO 1,000 mg Q6H PRN Administration Mild Pain (1-3) or Fever Amitriptyline HCl 20 mg 07/21/24 21:15 08/08/24 22:25 Amitriptyline Hcl 10 Mg Tablet PO 20 mg QHS [facility] Administration Amoxicillin/Clavulanate Potassium 1 tablet 08/02/24 21:00 08/09/24 07:54 Amoxicillin/Clavulanate K 875-125 Mg Tab PO 1 tablet Q12HR [facility] Administration Atorvastatin Calcium 40 mg 07/21/24 21:15 08/08/24 22:25 Atorvastatin 40 Mg Tablet PO 40 mg QHS [facility] Administration Cyanocobalamin 500 mcg 07/22/24 09:00 08/09/24 07:55 Cyanocobalamin 500 Mc[facility] Cyanocobalamin 2,000 mcg 07/22/24 09:00 08/09/24 07:55 Cyanocobalamin 1,000 Mcg Tablet PO 2,000 mcg QAM [facility] Administration Enoxaparin Sodium 40 mg 08/01/24 09:00 08/09/24 07:55 Enoxaparin 40 Mg/0.4 Ml Syringe SUB-Q 40 mg DAILY [facility] Administration Gabapentin 200 mg 07/22/24 09:00 08/09/24 07:54 Gabapentin 100 Mg Capsule PO 200 mg BID [facility] Administration Levothyroxine Sodium 25 mcg 07/22/24 06:30 08/09/24 05:17 Levothyroxine Sodium 25 Mcg Tablet PO 25 mcg DAILY@0630 [facility] Administration Metoprolol Succinate 100 mg 08/08/24 09:00 08/09/24 07:54 Metoprolol Succinate Ext Rel 100 Mg Tabcr PO 100 mg QAM [facility] Administration Ondansetron HCl 4 mg 07/22/24 08:52 07/30/24 23:22 Ondansetron Inj 4 Mg/2 Ml Vial IV PUSH 4 mg Q6H PRN Administration Nausea And Vomiting Ondansetron HCl 4 mg 08/05/24 12:23 08/05/24 12:38 Ondansetron Hcl Odt 4 Mg Tablet PO 4 mg Q6H PRN Administration Nausea And Vomiting Pantoprazole Sodium 40 mg 07/22/24 09:00 08/09/24 07:54 Pantoprazole 40 Mg Tablet PO 40 mg QAM [facility] Administration Tamsulosin HCl 0.4 mg 07/22/24 09:00 08/09/24 07:54 Tamsulosin Hcl 0.4 Mg Capsule PO 0.4 mg DAILY [facility] Administration Tramadol HCl 50 mg 08/02/24 09:21 08/08/24 05:50 Tramadol Hcl (*Crx) 50 Mg Tablet PO 50 mg Q6H PRN Administration Pain Rated 4-6 Radiology Results: ITS Impressions Abdomen/Pelvis CT 07/22/24 08:52 Impression: Percutaneous cholecystostomy tube in place with distended irregular gallbladder with marked irregular wall thickening and pericholecystic infarct or change, co mpatible with acute cholecystitis. Fluid-filled tract communicating with the gallbladder lumen at the superior aspect, which represents a tract related to prior cholecystostomy tube placement, with extension into the anterior abdominal wall. Additional suspected area of contained perforation at the inferior aspect of the gallbladder, which is new from prior exam. Acute L1 compression fracture, new from prior exam. Worsening T12 compression fracture as compared to prior exam with progressive loss of height. Cholecystostomy 07/23/24 14:08 IMPRESSION: 1. Successful upsizing to 12 [place] of a right upper quadrant percutaneous cholecystostomy tube. 2. Patent cystic and common bile ducts. Chest X-Ray 08/04/24 13:43 IMPRESSION: Bibasilar atelectasis versus with left pleural effusion. Head CT 08/08/24 13:23 IMPRESSION: 1. Stable age-related changes including mild to moderate diffuse volume loss and moderate scattered white matter hypoattenuation consistent with chronic small vessel ischemic disease. Labs Labs: Laboratory Results - last 24 hr 08/08/24 08/09/24 08/09/24 12:58 05: 05:30 WBC 12.9 H RBC 3.03 L Hgb 8.7 L Hct 29.1 L MCV 96.0 MCH 28.7 MCHC 29.9 L RDW 15.8 H Plt Count 213 MPV 9.8 Immature Gran % (Auto) 0.7 H Neut % (Auto) 75.1 H Lymph % (Auto) 14.1 L [place] % (Auto) 8.1 Eos % (Auto) 1.8 Baso % (Auto) 0.2 Lymph # (Auto) 1.82 [place] # (Auto) 1.1 H Eos # (Auto) 0.2 Baso # (Auto) 0.0 Abs Immat Gran (auto) 0.09 H Absolute Neuts (auto) 9.7 H Absolute Nucleated RBC 0.000 Band Neutrophils % Not Reportable Nucleated RBC % 0.0 Platelet Estimate Adequate Hypochromasia 1+ Schistocytes None seen Sodium 138 Potassium 4.1 Chloride 101 Carbon Dioxide 32 H Anion Gap 5 BUN 16 Creatinine 0.52 L Estim Creat Clear Calc 54 Estimated GFR > 60 Glucose 102 POC Capillary Glucose 106 H Calcium 8.6 Magnesium 1.8 Total Bilirubin 0.6 AST 25 ALT 15 Alkaline Phosphatase 73 Total Protein 6.0 L Albumin 2.8 L Lipase 19 L
--- NOTE | 2024-08-09 11:46 | P.PNIM_ITS ---
Progress Note: A&P Assessment and Plan (1) Acute cholecystitis: Code(s): K81.0 - Acute cholecystitis Status: Acute Assessment and Plan: * Cholecystostomy tube 07/23 in IR. * Continue have purulent discharge from the cholecystotomy tube * Management per general surgeon * She is status post cholecystectomy 07/31/2024. * Augmentin 875-125 mg 1 tablet PO q 12. * GI consult. ERCP done 08/06 and stent successfully placed across biliary leak. Patient will need an ERCP again in 8-10 weeks to remove stent. * Low fat diet. * WBC 12.9, Lipase 19. (2) Essential hypertension: Code(s): I10 - Essential (primary) hypertension Status: Acute Assessment and Plan: * Metoprolol Succinate 100 mg PO QAM, home dose. * Blood pressure 104/53. (3) Coronary artery disease involving ruby coronary artery of ruby heart: Code(s): I25.10 - Atherosclerotic heart disease of ruby coronary artery without angina pectoris Status: Acute Assessment and Plan: * Atorvastatin 40 mg PO QHS. (4) Severe protein-calorie malnutrition: Code(s): E43 - Unspecified severe protein-calorie malnutrition Status: Acute Assessment and Plan: * Protein 6.0. * Severe protein calorie malnutrition related to taste changes, poor appetite, nausea as evidenced by intakes <75% needs >1 month. Weight loss-15%/3 months: moderate fat loss, severe muscle wasting. * Ensure Enlive TID and Nutritional ice cream TID. * [employer] following. (5) Atrial fibrillation: Qualifiers: Atrial fibrillation type: unspecified Qualified Code(s): I48.91 - Unspecified atrial fibrillation Code(s): I48.91 - Unspecified atrial fibrillation Status: Acute Assessment and Plan: * Metoprolol Succinate 100 mg PO daily. * Lovenox 40 mg subq daily. * Telemetry. * Eliquis on hold until okayed by GI and surgery. (6) Hypothyroidism: Code(s): E03.9 - Hypothyroidism, unspecified Status: Acute Assessment and Plan: * Levothyroxine 25 mcg PO daily. (7) T12 compression fracture: Code(s): S22.080A - Wedge compression fracture of T11-T12 vertebra, initial encounter for closed fracture Status: Acute Assessment and Plan: * Patient is followed by pain management and to have kyphoplasty, patient was supposed to have this week but ended up hospitalized. * TLSO ordered. * PT/OT * No focal deficits no urinary fecal incontinence Subjective Date/time seen: 08/09/24 11:46 Interval history: Patient sitting up in bed. Patient reports feeling better today but still a little fatigued. Daughter at bedside. Patient reports abdominal pain that is an 8 , frequent, and aching in incision area in lower center abdomen. Patient denies chest pain, palpitations, headache, dizziness, nausea, or vomiting. Review of Systems Review of Systems: All systems reviewed & are unremarkable except as noted in HPI and below Exam Const: General: no acute distress and uncomfortable Resp: Effort & Inspection: normal respiratory effort Auscultation: clear to auscultation bilaterally Cardio: Rate: regular rate Rhythm: regular rhythm GI: GI Palp: Yes Soft to palpation Auscultation: normal bowel sounds Other: Abdominal dressing C/D/I. SRAVAN drain with small amount of bilious drainage. Pain is at Laparoscopic site in lower center abdomen, no redness, drainage, or swelling. Neuro: Speech: normal speech Extrem: General: no pedal edema Psych: Mental Status: mental status grossly normal Affect: normal affect Objective Data Vital Signs Vital Signs: Vital Signs - 24 hr 08/08/24 12:00 08/08/24 12:48 08/08/24 14:00 Temperature 97.6 F 98.8 F Pulse Rate 92 90 101 H Respiratory Rate 15 16 Blood Pressure 129/54 L 126/62 Pulse Oximetry 100 100 Oxygen Delivery Oxygen Flow Rate 08/08/24 20:00 08/08/24 20:00 08/08/24 21:04 Temperature 99.3 F Pulse Rate 95 97 Respiratory Rate 20 Blood Pressure 124/63 Pulse Oximetry 99 99 Oxygen Delivery Nasal Cannula Oxygen Flow Rate 2 08/09/24 00:00 08/09/24 04:00 08/09/24 05:41 Temperature 97.9 F Pulse Rate 72 70 70 Respiratory Rate 16 Blood Pressure 104/53 L Pulse Oximetry 100 Oxygen Delivery Oxygen Flow Rate 08/09/24 07:54 08/09/24 08:00 08/09/24 10:00 Temperature Pulse Rate 87 Respiratory Rate Blood Pressure Pulse Oximetry 90 83 L Oxygen Delivery Nasal Cannula Room Air Oxygen Flow Rate 2 08/09/24 10:10 Temperature Pulse Rate Respiratory Rate Blood Pressure Pulse Oximetry 97 Oxygen Delivery Nasal Cannula Oxygen Flow Rate 2 Intake/Output Intake/Output: Intake & Output 08/06/24 08/07/24 08/08/24 08/09/24 23:59 23:59 23:59 23:59 Intake Total 600 1190 440 300 Output Total 20 585 430 365 Balance 580 605 10 -65 Meds/Results Medications: Active Medications Generic Name Dose Route Start Last Admin Trade Name Freq PRN Reason Stop Dose Admin Acetaminophen 1,000 mg 07/22/24 08:52 08/08/24 22:25 Acetaminophen 500 Mg Tablet PO 1,000 mg Q6H PRN Administration Mild Pain (1-3) or Fever Amitriptyline HCl 20 mg 07/21/24 21:15 08/08/24 22:25 Amitriptyline Hcl 10 Mg Tablet PO 20 mg QHS [facility] Administration Amoxicillin/Clavulanate Potassium 1 tablet 08/02/24 21:00 08/09/24 07:54 Amoxicillin/Clavulanate K 875-125 Mg Tab PO 1 tablet Q12HR [facility] Administration Atorvastatin Calcium 40 mg 07/21/24 21:15 08/08/24 22:25 Atorvastatin 40 Mg Tablet PO 40 mg QHS [facility] Administration Cyanocobalamin 500 mcg 07/22/24 09:00 08/09/24 07:55 Cyanocobalamin 500 Mcg Tablet PO 500 mcg QAM [facility] Administration Cyanocobalamin 2,000 mcg 07/22/24 09:00 08/09/24 07:55 Cyanocobalamin 1,000 Mcg Tablet PO 2,000 mcg QAM [facility] Administration Enoxaparin Sodium 40 mg 08/01/24 09:00 08/09/24 07:55 Enoxaparin 40 Mg/0.4 Ml Syringe SUB-Q 40 mg DAILY [facility] Administration Gabapentin 200 mg 07/22/24 09:00 08/09/24 07:54 Gabapentin 100 Mg Capsule PO 200 mg BID [facility] Administration Levothyroxine Sodium 25 mcg 07/22/24 06:30 08/09/24 05:17 Levothyroxine Sodium 25 Mcg Tablet PO 25 mcg DAILY@0630 [facility] Administration Metoprolol Succinate 100 mg 08/08/24 09:00 08/09/24 07:54 Metoprolol Succinate Ext Rel 100 Mg Tabcr PO 100 mg QAM [facility] Administration Ondansetron HCl 4 mg 07/22/24 08:52 07/30/24 23:22 Ondansetron Inj 4 Mg/2 Ml Vial IV PUSH 4 mg Q6H PRN Administration Nausea And Vomiting Ondansetron HCl 4 mg 08/05/24 12:23 08/05/24 12:38 Ondansetron Hcl Odt 4 Mg Tablet PO 4 mg Q6H PRN Administration Nausea And Vomiting Pantoprazole Sodium 40 mg 07/22/24 09:00 08/09/24 07:54 Pantoprazole 40 Mg Tablet PO 40 mg QAM [facility] Administration Tamsulosin HCl 0.4 mg 07/22/24 09:00 08/09/24 07:54 Tamsulosin Hcl 0.4 Mg Capsule PO 0.4 mg DAILY [facility] Administration Tramadol HCl 50 mg 08/02/24 09:21 08/08/24 05:50 Tramadol Hcl (*Crx) 50 Mg Tablet PO 50 mg Q6H PRN Administration Pain Rated 4-6 Radiology Results: ITS Impressions Abdomen/Pelvis CT 07/22/24 08:52 Impression: Percutaneous cholecystostomy tube in place with distended irregular gallbladder with marked irregular wall thickening and pericholecystic infarct or change, compatible with acute cholecystitis. Fluid-filled tract communicating with the gallbladder lumen at the superior aspect, which represents a tract related to prior cholecystostomy tube placement, with extension into the anterior abdominal wall. Additional suspected area of contained perforation at the inferior aspect of the gallbladder, which is new from prior exam. Acute L1 compression fracture, new from prior exam. Worsening T12 compression fracture as compared to prior exam with progressive loss of height. Cholecystostomy 07/23/24 14:08 IMPRESSION: 1. Successful upsizing to 12 [place] of a right upper quadrant percutaneous cholecystostomy tube. 2. Patent cystic and common bile ducts. Chest X-Ray 08/04/24 13:43 IMPRESSION: Bibasilar atelectasis versus with left pleural effusion. Head CT 08/08/24 13:23 IMPRESSION: 1. Stable age-related changes including mild to moderate diffuse volume loss and moderate scattered white matter hypoattenuation consistent with chronic small vessel ischemic disease. Labs Labs: Laboratory Results - last 24 hr 08/08/24 08/09/24 08/09/24 12:58 05:24 05:30 WBC 12.9 H RBC 3.03 L Hgb 8.7 L Hct 29.1 L MCV 96.0 MCH 28.7 MCHC 29.9 L RDW 15.8 H Plt Count 213 MPV 9.8 Immature Gran % (Auto) 0.7 H Neut % (Auto) 75.1 H Lymph % (Auto) 14.1 L [place] % (Auto) 8.1 Eos % (Auto) 1.8 Baso % (Auto) 0.2 Lymph # (Auto) 1.82 [place] # (Auto) 1.1 H Eos # (Auto) 0.2 Baso # (Auto) 0.0 Abs Immat Gran (auto) 0.09 H Absolute Neuts (auto) 9.7 H Absolute Nucleated RBC 0.000 Band Neutrophils % Not Reportable Nucleated RBC % 0.0 Platelet Estimate Adequate Hypochromasia 1+ Schistocytes None seen Sodium 138 Potassium 4.1 Chloride 101 Carbon Dioxide 32 H Anion Gap 5 BUN 16 Creatinine 0.52 L Estim Creat Clear Calc 54 Estimated GFR > 60 Glucose 102 POC Capillary Glucose 106 H Calcium 8.6 Magnesium 1.8 Total Bilirubin 0.6 AST 25 ALT 15 Alkaline Phosphatase 73 Total Protein 6.0 L Albumin 2.8 L Lipase 19 L Quality VTE Prophylaxis VTE prophylaxis: mechanical ordered and pharmacologic ordered
--- NOTE | 2024-08-09 14:52 | WPDGIPROGNO ---
Progress Note: A&P Assessment and Plan (1) Bile leak, postoperative: Code(s): K91.89 - Other postprocedural complications and disorders of digestive system; K83.8 - Other specified diseases of biliary tract Status: Acute Assessment and Plan: treated with ercp and biliary stent, even less output from SRAVAN ercp in 2-3 months to remove stent normal liver enzymes also lipase tolerating diet surgery on board (2) Acute cholecystitis: Code(s): K81.0 - Acute cholecystitis Status: Acute Assessment and Plan: s/p cholecystectomy management per surgery team (3) Iron deficiency anemia: Code(s): D50.9 - Iron deficiency anemia, unspecified Status: Acute (4) Moderate protein-calorie malnutrition: Code(s): E44.0 - Moderate protein-calorie malnutrition Status: Acute Assessment and Plan: eating more Subjective Date/time seen: 08/09/24 14:52 Interval history: more comfortable today, family members at bedside she is fully awake and alert Review of Systems Review of Systems: All systems reviewed & are unremarkable except as noted in HPI and below Exam Const: General: comfortable HENMT: Face/Nose/Sinus: Normal nares present Eyes: General: appearance normal, both eyes and all related structures Neck: Neck: supple Resp: Effort & Inspection: normal respiratory effort Auscultation: clear to auscultation bilaterally Cardio: Rate: regular rate GI: Inspection: non-distended and incision (port site incisions are healing well with no erythema or drainage) GI Palp: Yes Soft to palpation and Yes Tenderness to palpation present (GI) (mild ttp in ruq) Auscultation: normal bowel sounds Other: RUQ SRAVAN drain with small amount of bilious output Skin: General skin exam: normal color Neuro: Speech: normal speech Motor exam (neuro): 5/5 motor strength present throughout Extrem: General: normal to inspection Objective Data Vital Signs Vital Signs: Vital Signs - 24 hr 08/08/24 20:00 08/08/24 20:00 08/08/24 21:04 Temperature 99.3 F Pulse Rate 95 97 Respiratory Rate 20 Blood Pressure 124/63 Pulse Oximetry 99 99 Oxygen Delivery Nasal Cannula Oxygen Flow Rate 2 08/09/24 00:00 08/09/24 04:00 08/09/24 05:41 Temperature 97.9 F Pulse Rate 72 70 70 Respiratory Rate 16 Blood Pressure 104/53 L Pulse Oximetry 100 Oxygen Delivery Oxygen Flow Rate 08/09/24 07:54 08/09/24 08:00 08/09/24 08:00 Temperature Pulse Rate 87 90 Respiratory Rate Blood Pressure Pulse Oximetry 90 Oxygen Delivery Nasal Cannula Oxygen Flow Rate 2 08/09/24 10:00 08/09/24 10:10 08/09/24 12:00 Temperature Pulse Rate 85 Respiratory Rate Blood Pressure Pulse Oximetry 83 L 97 Oxygen Delivery Room Air Nasal Cannula Oxygen Flow Rate 2 Intake/Output Intake/Output: Intake & Output 08/06/24 08/07/24 08/08/24 08/09/24 23:59 23:59 23:59 23:59 Intake Total 600 1190 440 300 Output Total 20 585 430 365 Balance 580 605 10 -65 Meds/Results Medications: Active Medications Generic Name Dose Route Start Last Admin Trade Name Freq PRN Reason Stop Dose Admin Acetaminophen 1,000 mg 07/22/24 08:52 08/08/24 22:25 Acetaminophen 500 Mg Tablet PO 1,000 mg Q6H PRN Administration Mild Pain (1-3) or Fever Amitriptyline HCl 20 mg 07/21/24 21:15 08/08/24 22:25 Amitriptyline Hcl 10 Mg Tablet PO 20 mg QHS [facility] Administration Amoxicillin/Clavulanate Potassium 1 tablet 08/02/24 21:00 08/09/24 07:54 Amoxicillin/Clavulanate K 875-125 Mg Tab PO 1 tablet Q12HR [facility] Administration Atorvastatin Calcium 40 mg 07/21/24 21:15 08/08/24 22:25 Atorvastatin 40 Mg Tablet PO 40 mg QHS [facility] Administration Cyanocobalamin 500 mcg 07/22/24 09:00 08/09/24 07:55 Cyanocobalamin 500 Mcg Tablet PO 500 mcg QAM [facility] Administration Cyanocobalamin 2,000 mcg 07/22/24 09:00 08/09/24 07:55 Cyanocobalamin 1,000 Mcg Tablet PO 2,000 mcg QAM [facility] Administration Enoxaparin Sodium 40 mg 08/01/24 09:00 08/09/24 07:55 Enoxaparin 40 Mg/0.4 Ml Syringe SUB-Q 40 mg DAILY [facility] Administration Gabapentin 200 mg 07/22/24 09:00 08/09/24 07:54 Gabapentin 100 Mg Capsule PO 200 mg BID [facility] Administration Levothyroxine Sodium 25 mcg 07/22/24 06:30 08/09/24 05:17 Levothyroxine Sodium 25 Mcg Tablet PO 25 mcg DAILY@0630 [facility] Administration Metoprolol Succinate 100 mg 08/08/24 09:00 08/09/24 07:54 Metoprolol Succinate Ext Rel 100 Mg Tabcr PO 100 mg QAM [facility] Administration Ondansetron HCl 4 mg 07/22/24 08:52 07/30/24 23:22 Ondansetron Inj 4 Mg/2 Ml Vial IV PUSH 4 mg Q6H PRN Administration Nausea And Vomiting Ondansetron HCl 4 mg 08/05/24 12:23 08/05/24 12:38 Ondansetron Hcl Odt 4 Mg Tablet PO 4 mg Q6H PRN Administration Nausea And Vomiting Pantoprazole Sodium 40 mg 07/22/24 09:00 08/09/24 07:54 Pantoprazole 40 Mg Tablet PO 40 mg QAM [facility] Administration Tamsulosin HCl 0.4 mg 07/22/24 09:00 08/09/24 07:54 Tamsulosin Hcl 0.4 Mg Capsule PO 0.4 mg DAILY [facility] Administration Tramadol HCl 50 mg 08/02/24 09:21 08/08/24 05:50 Tramadol Hcl (*Crx) 50 Mg Tablet PO 50 mg Q6H PRN Administration Pain Rated 4-6 Radiology Results: ITS Impressions Abdomen/Pelvis CT 07/22/24 08:52 Impression: Percutaneous cholecystostomy tube in place with distended irregular gallbladder with marked irregular wall thickening and pericholecystic infarct or change, compatible with acute cholecystitis. Fluid-filled tract communicating with the gallbladder lumen at the superior aspect, which represents a tract related to prior cholecystostomy tube placement, with extension into the anterior abdominal wall. Additional suspected area of contained perforation at the inferior aspect of the gallbladder, which is new from prior exam. Acute L1 compression fracture, new from prior exam. Worsening T12 compression fracture as compared to prior exam with progressive loss of height. Cholecystostomy 07/23/24 14:08 IMPRESSION: 1. Successful upsizing to 12 [place] of a right upper quadrant percutaneous cholecystostomy tube. 2. Patent cystic and common bile ducts. Chest X-Ray 08/04/24 13:43 IMPRESSION: Bibasilar atelectasis versus with left pleural effusion. Head CT 08/08/24 13:23 IMPRESSION: 1. Stable age-related changes including mild to moderate diffuse volume loss and moderate scattered white matter hypoattenuation consistent with chronic small vessel ischemic disease. Labs Labs: Laboratory Results - last 24 hr 08/09/24 08/09/24 05:24 05:30 WBC 12.9 H RBC 3.03 L Hgb 8.7 L Hct 29.1 L MCV 96.0 MCH 28.7 MCHC 29.9 L RDW 15.8 H Plt Count 213 MPV 9.8 Immature Gran % (Auto) 0.7 H Neut % (Auto) 75.1 H Lymph % (Auto) 14.1 L [place] % (Auto) 8.1 Eos % (Auto) 1.8 Baso % (Auto) 0.2 Lymph # (Auto) 1.82 [place] # (Auto) 1.1 H Eos # (Auto) 0.2 Baso # (Auto) 0.0 Abs Immat Gran (auto) 0.09 H Absolute Neuts (auto) 9.7 H Absolute Nucleated RBC 0.000 Band Neutrophils % Not Reportable Nucleated RBC % 0.0 Platelet Estimate Adequate Hypochromasia 1+ Schistocytes None seen Sodium 138 Potassium 4.1 Chloride 101 Carbon Dioxide 32 H Anion Gap 5 BUN 16 Creatinine 0.52 L Estim Creat Clear Calc 54 Estimated GFR > 60 Glucose 102 Calcium 8.6 Magnesium 1.8 Total Bilirubin 0.6 AST 25 ALT 15 Alkaline Phosphatase 73 Total Protein 6.0 L Albumin 2.8 L Lipase 19 L
[2024-08-09] MEDS: AMITRIPTYLINE HCL 10 MG TABLET 20 MG PO (21:02)
[2024-08-09] MEDS: ATORVASTATIN 40 MG TABLET PO (21:02)
[2024-08-10] VITALS (12 sets, daily range): BP systolic 106–132; BP diastolic 52–63; PULSE 62–104; RESP 16–20; TEMP 36.6–36.9; O2SAT 92–99
[2024-08-10] MEDS: LEVOTHYROXINE SODIUM 25 MCG TABLET PO (05:49)
[2024-08-10 06:08] LABS: Basophils Percent Auto 0.1 % (0.2-1.2); Eosinophils Absolute Auto 0.2 K/mm3 (0-0.3); Eosinophils Percent Auto 1.6 % (0-4.4); Hematocrit 26.1 % (37.0-47.0); Hemoglobin 7.7 g/dL (12.0-15.0); Immature Granulocyte Absolute 0.08 K/mm3 (0.00-0.031); Immature Granulocyte Percent A 0.7 % (0-0.5); Lymphocytes Absolute Auto 1.66 K/mm3 (0.9-3.2); Mean Corpuscular HGB Conc 29.5 g/dl (32-36); Mean Corpuscular Hemoglobin 28.3 pg (26-34); Mean Platelet Volume 10.2 fl (7.4-10.4); Monocytes Absolute Auto 0.7 K/mm3 (0.1-0.6); Neutrophils Absolute Auto 9.2 K/mm3 (1.3-6.7); Neutrophils Percent Auto 77.6 % (45.5-73.1); Platelet Count Result 234 k/mm3 (150-375); Red Blood Count 2.72 M/mm3 (4.2-5.4); Red Cell Distribution Width 15.2 % (11.5-14.5); White Blood Count 11.8 K/mm3 (4.5-10.0)
[2024-08-10 06:55] LABS: Hypochromasia 1+; Platelet Estimate Adequate (Adequate); Polychromasia 1+
[2024-08-10 06:56] LABS: Anisocytosis 1+; Basophilic Stippling 1+; Schistocytes None Seen; Target Cells 1+
[2024-08-10 08:02] LABS: Alanine Aminotransferase 14 U/L (6-35); Albumin Level 2.5 g/dL (3.5-5.1); Alkaline Phosphatase 85 U/L (38-126); Anion Gap 4 mmol/L (4-12); Aspartate Amino Transferase 25 U/L (14-36); Bilirubin,Total 0.3 mg/dL (0.2-1.3); Blood Urea Nitrogen 12 mg/dL (7-17); Calcium 8.3 mg/dL (8.4-10.2); Carbon Dioxide 29 mmol/L (22-30); Chloride 99 mmol/L (98-107); Estimated CRCL calculation 55 ml/min; Estimated Glomerular Filt Rate > 60; Glucose 100 mg/dL (65-110); Magnesium 1.6 mg/dL (1.6-2.3); Potassium 3.7 mmol/L (3.4-5.0); Sodium 132 mmol/L (137-145)
[2024-08-10] MEDS: MAGNESIUM SULF 2 GM/WATER 50ML 2 GM/50 ML BAG IVPB (08:50)
[2024-08-10] MEDS: METOPROLOL SUCCINATE EXT REL 100 MG TABCR PO (09:04)
[2024-08-10] MEDS: CYANOCOBALAMIN 500 MCG TABLET PO (09:04)
[2024-08-10] MEDS: TAMSULOSIN HCL 0.4 MG CAPSULE PO (09:05)
[2024-08-10] MEDS: ENOXAPARIN 40 MG/0.4 ML SYRINGE SUB-Q (09:06)
[2024-08-10] MEDS: AMOXICILLIN/CLAVULANATE K 875-125 MG TAB 1 TABLET PO ×2 (09:06→20:42)
[2024-08-10] MEDS: CYANOCOBALAMIN 1,000 MCG TABLET 2000 MCG PO (09:06)
[2024-08-10] MEDS: PANTOPRAZOLE 40 MG TABLET PO (09:06)
[2024-08-10] MEDS: GABAPENTIN 100 MG CAPSULE 200 MG PO ×2 (09:06→16:08)
--- NOTE | 2024-08-10 11:31 | P.PNIM_ITS ---
Progress Note: A&P Assessment and Plan (1) Acute cholecystitis: Code(s): K81.0 - Acute cholecystitis Status: Acute Assessment and Plan: * Cholecystostomy tube 07/23 in IR. * Continue have purulent discharge from the cholecystotomy tube * Management per general surgeon * She is status post cholecystectomy 07/31/2024. * Augmentin 875-125 mg 1 tablet PO q 12. * GI consult. ERCP done 08/06 and stent successfully placed across biliary leak. Patient will need an ERCP again in 8-10 weeks to remove stent. * Low fat diet. * WBC 11.8, Lipase 19. (2) Essential hypertension: Code(s): I10 - Essential (primary) hypertension Status: Acute Assessment and Plan: * Metoprolol Succinate 100 mg PO QAM, home dose. * Blood pressure 113/52. (3) Coronary artery disease involving [place] coronary artery of [place] heart: Code(s): I25.10 - Atherosclerotic heart disease of [place] coronary artery without angina pectoris Status: Acute Assessment and Plan: * Atorvastatin 40 mg PO QHS. (4) Severe protein-calorie malnutrition: Code(s): E43 - Unspecified severe protein-calorie malnutrition Status: Acute Assessment and Plan: * Protein 6.0. * Severe protein calorie malnutrition related to taste changes, poor appetite, nausea as evidenced by intakes <75% needs >1 month. Weight loss-15%/3 months: moderate fat loss, severe muscle wasting. * Ensure Enlive TID and Nutritional ice cream TID. * Lead Programmer Analyst following. (5) Atrial fibrillation: Qualifiers: Atrial fibrillation type: unspecified Qualified Code(s): I48.91 - Unspecified atrial fibrillation Code(s): I48.91 - Unspecified atrial fibrillation Status: Acute Assessment and Plan: * Metoprolol Succinate 100 mg PO daily. * Lovenox 40 mg subq daily. * Telemetry. * Eliquis on hold until okayed by GI and surgery. (6) Hypothyroidism: Code(s): E03.9 - Hypothyroidism, unspecified Status: Acute Assessment and Plan: * Levothyroxine 25 mcg PO daily. (7) T12 compression fracture: Code(s): S22.080A - Wedge compression fracture of T11-T12 vertebra, initial encounter for closed fracture Status: Acute Assessment and Plan: * Patient is followed by pain management and to have kyphoplasty, patient was supposed to have this week but ended up hospitalized. * TLSO ordered. * PT/OT * No focal deficits no urinary fecal incontinence Subjective Date/time seen: 08/10/24 11:31 Interval history: Patient sitting up in chair with daughter at bedside. Patient reports that she is trying to build up her strength. Appetite not good this morning. Patient agreed to try to drink Ensures today. Patient denies chest pain, palpitations, headache, dizziness, nausea, or vomiting. Review of Systems Review of Systems: All systems reviewed & are unremarkable except as noted in HPI and below Exam Const: General: comfortable and no acute distress Resp: Effort & Inspection: normal respiratory effort Auscultation: clear to auscultation bilaterally Cardio: Rate: regular rate Rhythm: regular rhythm GI: GI Palp: Yes Soft to palpation Auscultation: normal bowel sounds Other: Abdominal dressing C/D/I. SRAVAN drain with small amount of serous cloudy drainage. Neuro: Speech: normal speech Extrem: General: no pedal edema Psych: Mental Status: mental status grossly normal Affect: normal affect Objective Data Vital Signs Vital Signs: Vital Signs - 24 hr 08/09/24 12:00 08/09/24 14:00 08/09/24 16:00 Temperature 98.8 F Pulse Rate 85 89 86 Respiratory Rate 16 Blood Pressure 106/47 L Pulse Oximetry 99 Oxygen Delivery Oxygen Flow Rate Fraction of Inspired Oxygen 08/09/24 20:00 08/09/24 20:00 08/09/24 20:09 Temperature 99.1 F Pulse Rate 86 86 Respiratory Rate 16 Blood Pressure 105/54 L Pulse Oximetry 99 99 Oxygen Delivery Nasal Cannula Oxygen Flow Rate 2 Fraction of Inspired Oxygen 08/10/24 00:00 08/10/24 04:00 08/10/24 05:15 Temperature 98.1 F Pulse Rate 88 84 83 Respiratory Rate 16 Blood Pressure 113/52 L Pulse Oximetry 99 Oxygen Delivery Oxygen Flow Rate Fraction of Inspired Oxygen 08/10/24 08:35 08/10/24 09:04 Temperature Pulse Rate 87 Respiratory Rate Blood Pressure Pulse Oximetry 98 Oxygen Delivery Nasal Cannula Oxygen Flow Rate 2 Fraction of Inspired Oxygen 28 Intake/Output Intake/Output: Intake & Output 08/07/24 08/08/24 08/09/24 08/10/24 23:59 23:59 23:59 23:59 Intake Total 9391 302 4035 100 Output Total 585 430 380 Balance 605 10 960 100 Meds/Results Medications: Active Medications Generic Name Dose Route Start Last Admin Trade Name Freq PRN Reason Stop Dose Admin Acetaminophen 1,000 mg 07/22/24 08:52 08/08/24 22:25 Acetaminophen 500 Mg Tablet PO 1,000 mg Q6H PRN Administration Mild Pain (1-3) or Fever Amitriptyline HCl 20 mg 07/21/24 21:15 08/09/24 21:02 Amitriptyline Hcl 10 Mg Tablet PO 20 mg QHS MELISSA Administration Amoxicillin/Clavulanate Potassium 1 tablet 08/02/24 21:00 08/10/24 09:06 Amoxicillin/Clavulanate K 875-125 Mg Tab PO 1 tablet Q12HR MELISSA Administration Atorvastatin Calcium 40 mg 07/21/24 21:15 08/09/24 21:02 Atorvastatin 40 Mg Tablet PO 40 mg QHS MELISSA Administration Cyanocobalamin 500 mcg 07/22/24 09:00 08/10/24 09:04 Cyanocobalamin 500 Mcg Tablet PO 500 mcg QAM MELISSA Administration Cyanocobalamin 2,000 mcg 07/22/24 09:00 08/10/24 09:06 Cyanocobalamin 1,000 Mcg Tablet PO 2,000 mcg QAM [facility] Administration Enoxaparin Sodium 40 mg 08/01/24 09:00 08/10/24 09:06 Enoxaparin 40 Mg/0.4 Ml Syringe SUB-Q 40 mg DAILY MELISSA Administration Gabapentin 200 mg 07/22/24 09:00 08/10/24 09:06 Gabapentin 100 Mg Capsule PO 200 mg BID MELISSA Administration Levothyroxine Sodium 25 mcg 07/22/24 06:30 08/10/24 05:49 Levothyroxine Sodium 25 Mcg Tablet PO 25 mcg DAILY@0630 MELISSA Administration Metoprolol Succinate 100 mg 08/08/24 09:00 08/10/24 09:04 Metoprolol Succinate Ext Rel 100 Mg Tabcr PO 100 mg QAM MELISSA Administration Ondansetron HCl 4 mg 07/22/24 08:52 07/30/24 23:22 Ondansetron Inj 4 Mg/2 Ml Vial IV PUSH 4 mg Q6H PRN Administration Nausea And Vomiting Ondansetron HCl 4 mg 08/05/24 12:23 08/05/24 12:38 Ondansetron Hcl Odt 4 Mg Tablet PO 4 mg Q6H PRN Administration Nausea And Vomiting Pantoprazole Sodium 40 mg 07/22/24 09:00 08/10/24 09:06 Pantoprazole 40 Mg Tablet PO 40 mg QAM MELISSA Administration Tamsulosin HCl 0.4 mg 07/22/24 09:00 08/10/24 09:05 Tamsulosin Hcl 0.4 Mg Capsule PO 0.4 mg DAILY MELISSA Administration Tramadol HCl 50 mg 08/02/24 09:21 08/08/24 05:50 Tramadol Hcl (*Crx) 50 Mg Tablet PO 50 mg Q6H PRN Administration Pain Rated 4-6 Radiology Results: ITS Impressions Abdomen/Pelvis CT 07/22/24 08:52 Impression: Percutaneous cholecystostomy tube in place with distended irregular gallbladder with marked irregular wall thickening and pericholecystic infarct or change, compatible with acute cholecystitis. Fluid-filled tract communicating with the gallbladder lumen at the superior aspect, which represents a tract related to prior cholecystostomy tube placement, with extension into the anterior abdominal wall. Additional suspected area of contained perforation at the inferior aspect of the gallbladder, which is new from prior exam. Acute L1 compression fracture, new from prior exam. Worsening T12 compression fracture as compared to prior exam with progressive loss of height. Cholecystostomy 07/23/24 14:08 IMPRESSION: 1. Successful upsizing to 12 [place] of a right upper quadrant percutaneous cholecystostomy tube. 2. Patent cystic and common bile ducts. Chest X-Ray 08/04/24 13:43 IMPRESSION: Bibasilar atelectasis versus with left pleural effusion. Head CT 08/08/24 13:23 IMPRESSION: 1. Stable age-related changes including mild to moderate diffuse volume loss and moderate scattered white matter hypoattenuation consistent with chronic small vessel ischemic disease. Labs Labs: Laboratory Results - last 24 hr 08/10/24 05:02 WBC 11.8 H RBC 2.72 L Hgb 7.7 L Hct 26.1 L MCV 96.0 MCH 28.3 MCHC 29.5 L RDW 15.2 H Plt Count 234 MPV 10.2 Immature Gran % (Auto) 0.7 H Neut % (Auto) 77.6 H Lymph % (Auto) 14.0 L [place] % (Auto) 6.0 Eos % (Auto) 1.6 Baso % (Auto) 0.1 L Lymph # (Auto) 1.66 [place] # (Auto) 0.7 H Eos # (Auto) 0.2 Baso # (Auto) 0.0 Abs Immat Gran (auto) 0.08 H Absolute Neuts (auto) 9.2 H Absolute Nucleated RBC 0.000 Band Neutrophils % Not Reportable Nucleated RBC % 0.0 Platelet Estimate Adequate Polychromasia 1+ Hypochromasia 1+ Basophilic Stippling 1+ Anisocytosis 1+ Target Cells 1+ Schistocytes None seen Sodium 132 L Potassium 3.7 Chloride 99 Carbon Dioxide 29 Anion Gap 4 BUN 12 Creatinine 0.51 L Estim Creat Clear Calc 55 Estimated GFR > 60 Glucose 100 Calcium 8.3 L Magnesium 1.6 Total Bilirubin 0.3 AST 25 ALT 14 Alkaline Phosphatase 85 Total Protein 5.0 L Albumin 2.5 L Quality VTE Prophylaxis VTE prophylaxis: mechanical ordered and pharmacologic ordered
--- NOTE | 2024-08-10 13:01 | P.PNGS_ITS ---
Progress Note: A&P Assessment and Plan (1) Cholecystitis: Code(s): K81.9 - Cholecystitis, unspecified Status: Acute Assessment and Plan: Postop day 10 following laparoscopic non fenestrated subtotal cholecystectomy. WBC count up to 11-12,000 over the weekend and she is complaining of pain around the SRAVAN drain. There is erythema and induration around the drain, which was then removed at the bedside today. This could be the cause for her mild leukocytosis. She is currently on Augment, which may need to be adjusted. Will repeat labs and reassess again tomorrow. Could consider repeat imaging if not improving with drain removal. (2) Bile leak, postoperative: Code(s): K91.89 - Other postprocedural complications and disorders of digestive system; K83.8 - Other specified diseases of biliary tract Status: Acute Assessment and Plan: Postop bile leak resolved following ERCP and stent placement. Minimal output from the SRAVAN drain, which was removed today. Plan I have discussed the patient's case and plan of care with Dr. Chester. Subjective Subjective Date/Time Seen: 08/10/24 13:01 Interval history: Patient complains of RUQ pain. She had mental status changes over the weekend and was more weak yesterday. Her mentation has improved and she is more alert to day per her daughter. She is oriented x 3. Therapy reports she is much stronger today and was min assist to the chair and was able to take a few steps. She has been afebrile, but her WBC count went up to 11-12k over the weekend. She continues to complain of pain by her SRAVAN drain in the RUQ. Minimal output from the drain. Exam Const: General: comfortable and no acute distress Orientation/consciousness: patient oriented x3 GI: Inspection: non-distended Auscultation: normal bowel sounds Other: Abdomen is nondistended and soft. The RUQ SRAVAN drain has very minimal cloudy serous drainage. The gauze dressing was removed and the skin around the SRAVAN drain is erythematous and induration. This area is tender. No fluctuance and no drainage coming around the SRAVAN drain. SRAVAN drain and sutures were removed, and a gauze dressing was applied. No tenderness throughout any other area of her abdomen. Objective Data Vital Signs Vital Signs: Vital Signs - 24 hr 08/09/24 14:00 08/09/24 16:00 08/09/24 20:00 Temperature 98.8 F Pulse Rate 89 86 Respiratory Rate 16 Blood Pressure 106/47 L Pulse Oximetry 99 99 Oxygen Delivery Nasal Cannula Oxygen Flow Rate 2 Fraction of Inspired Oxygen 08/09/24 20:00 08/09/24 20:09 08/10/24 00:00 Temperature 99.1 F Pulse Rate 86 86 88 Respiratory Rate 16 Blood Pressure 105/54 L Pulse Oximetry 99 Oxygen Delivery Oxygen Flow Rate Fraction of Inspired Oxygen 08/10/24 04:00 08/10/24 05:15 08/10/24 08:35 Temperature 98.1 F Pulse Rate 84 83 Respiratory Rate 16 Blood Pressure 113/52 L Pulse Oximetry 99 98 Oxygen Delivery Nasal Cannula Oxygen Flow Rate 2 Fraction of Inspired Oxygen 08/10/24 09:04 Temperature Pulse Rate 87 Respiratory Rate Blood Pressure Pulse Oximetry Oxygen Delivery Oxygen Flow Rate Fraction of Inspired Oxygen Intake/Output Intake/Output: Intake & Output 08/07/24 08/08/24 08/09/24 08/10/24 23:59 23:59 23:59 23:59 Intake Total 9610 694 2337 100 Output Total 585 430 380 Balance 605 10 960 100 Meds/Results Medications: Active Medications Generic Name Dose Route Start Last Admin Trade Name Freq PRN Reason Stop Dose Admin Acetaminophen 1,000 mg 07/22/24 08:52 08/08/24 22:25 Acetaminophen 500 Mg Tablet PO 1,000 mg Q6H PRN Administration Mild Pain (1-3) or Fever Amitriptyline HCl 20 mg 07/21/24 21:15 08/09/24 21:02 Amitriptyline Hcl 10 Mg Tablet PO 20 mg QHS MELISSA Administration Amoxicillin/Clavulanate Potassium 1 tablet 08/02/24 21:00 08/10/24 09:06 Amoxicillin/Clavulanate K 875-125 Mg Tab PO 1 tablet Q12HR MELISSA Administration Atorvastatin Calcium 40 mg 07/21/24 21:08/09/24 21:02 Atorvastatin 40 Mg Tablet PO 40 mg QHS MELISSA Administration Cyanocobalamin 500 mcg 07/22/24 09:00 08/10/24 09:04 Cyanocobalamin 500 Mcg Tablet PO 500 mcg QAM MELISSA Administration Cyanocobalamin 2,000 mcg 07/22/24 09:00 08/10/24 09:06 Cyanocobalamin 1,000 Mcg Tablet PO 2,000 mcg QAM [facility] Administration Enoxaparin Sodium 40 mg 08/01/24 09:00 08/10/24 09:06 Enoxaparin 40 Mg/0.4 Ml Syringe SUB-Q 40 mg DAILY MELISSA Administration Gabapentin 200 mg 07/22/24 09:00 08/10/24 09:06 Gabapentin 100 Mg Capsule PO 200 mg BID MELISSA Administration Levothyroxine Sodium 25 mcg 07/22/24 06:30 08/10/24 05:49 Levothyroxine Sodium 25 Mcg Tablet PO 25 mcg DAILY@0630 [facility] Administration Metoprolol Succinate 100 mg 08/08/24 09:00 08/10/24 09:04 Metoprolol Succinate Ext Rel 100 Mg Tabcr PO 100 mg QAM [facility] Administration Ondansetron HCl 4 mg 07/22/24 08:52 07/30/24 23:22 Ondansetron Inj 4 Mg/2 Ml Vial IV PUSH 4 mg Q6H PRN Administration Nausea And Vomiting Ondansetron HCl 4 mg 08/05/24 12:23 08/05/24 12:38 Ondansetron Hcl Odt 4 Mg Tablet PO 4 mg Q6H PRN Administration Nausea And Vomiting Pantoprazole Sodium 40 mg 07/22/24 09:00 08/10/24 09:06 Pantoprazole 40 Mg Tablet PO 40 mg QAM [facility] Administration Tamsulosin HCl 0.4 mg 07/22/24 09:00 08/10/24 09:05 Tamsulosin Hcl 0.4 Mg Capsule PO 0.4 mg DAILY [facility] Administration Tramadol HCl 50 mg 08/02/24 09:21 08/08/24 05:50 Tramadol Hcl (*Crx) 50 Mg Tablet PO 50 mg Q6H PRN Administration Pain Rated 4-6 Radiology Results: ITS Impressions Abdomen/Pelvis CT 07/22/24 08:52 Impression: Percutaneous cholecystostomy tube in place with distended irregular gallbladder with marked irregular wall thickening and pericholecystic infarct or change, compatible with acute cholecystitis. Fluid-filled tract communicating with the gallbladder lumen at the superior aspect, which represents a tract related to prior cholecystostomy tube placement, with extension into the anterior abdominal wall. Additional suspected area of contained perforation at the inferior aspect of the gallbladder, which is new from prior exam. Acute L1 compression fracture, new from prior exam. Worsening T12 compression fracture as compared to prior exam with progressive loss of height. Cholecystostomy 07/23/24 14:08 IMPRESSION: 1. Successful upsizing to 12 [place] of a right upper quadrant percutaneous cholecystostomy tube. 2. Patent cystic and common bile ducts. Chest X-Ray 08/04/24 13:43 IMPRESSION: Bibasilar atelectasis versus with left pleural effusion. Head CT 08/08/24 13:23 IMPRESSION: 1. Stable age-related changes including mild to moderate diffuse volume loss and moderate scattered white matter hypoattenuation consistent with chronic small vessel ischemic disease. Labs Labs: Laboratory Results - last 24 hr 08/10/24 05:02 WBC 11.8 H RBC 2.72 L Hgb 7.7 L Hct 26.1 L MCV 96.0 MCH 28.3 MCHC 29.5 L RDW 15.2 H Plt Count 234 MPV 10.2 Immature Gran % (Auto) 0.7 H Neut % (Auto) 77.6 H Lymph % (Auto) 14.0 L [place] % (Auto) 6.0 Eos % (Auto) 1.6 Baso % (Auto) 0.1 L Lymph # (Auto) 1.66 [place] # (Auto) 0.7 H Eos # (Auto) 0.2 Baso # (Auto) 0.0 Abs Immat Gran (auto) 0.08 H Absolute Neuts (auto) 9.2 H Absolute Nucleated RBC 0.000 Band Neutrophils % Not Reportable Nucleated RBC % 0.0 Platelet Estimate Adequate Polychromasia 1+ Hypochromasia 1+ Basophilic Stippling 1+ Anisocytosis 1+ Target Cells 1+ Schistocytes None seen Sodium 132 L Potassium 3.7 Chloride 99 Carbon Dioxide 29 Anion Gap 4 BUN 12 Creatinine 0.51 L Estim Creat Clear Calc 55 Estimated GFR > 60 Glucose 100 Calcium 8.3 L Magnesium 1.6 Total Bilirubin 0.3 AST 25 ALT 14 Alkaline Phosphatase 85 Total Protein 5.0 L Albumin 2.5 L
[2024-08-10] MEDS: ACETAMINOPHEN 500 MG TABLET 1000 MG PO (14:02)
--- NOTE | 2024-08-10 17:39 | P.PNGI_ITS ---
Progress Note: A&P Assessment and Plan (1) Bile leak, postoperative: Code(s): K91.89 - Other postprocedural complications and disorders of digestive system; K83.8 - Other specified diseases of biliary tract Status: Acute Assessment and Plan: treated with ercp and biliary stent no more output from JEAN PIERRE drain and removed site with erythema and treated by surgery with abx will arrange ercp in 2-3 months to remove stent normal liver enzymes tolerating diet will follow as needed (2) Acute cholecystitis: Code(s): K81.0 - Acute cholecystitis Status: Acute Assessment and Plan: s/p cholecystectomy site of jean pierre drain with erythema management per surgery team (3) Iron deficiency anemia: Code(s): D50.9 - Iron deficiency anemia, unspecified Status: Acute Subjective Date/time seen: 08/10/24 17:39 Interval history: JEAN PIERRE drain removed today since did not have more output, noted induration in the site from local inflammation- similar pain Review of Systems Review of Systems: All systems reviewed & are unremarkable except as noted in HPI and below Exam Const: General: comfortable HENMT: Face/Nose/Sinus: Normal nares present Eyes: General: appearance normal, both eyes and all related structures Neck: Neck: supple Resp: Effort & Inspection: normal respiratory effort Auscultation: clear to auscultation bilaterally Cardio: Rate: regular rate GI: Inspection: non-distended and incision (port site incisions are healing well with no erythema or drainage) GI Palp: Yes Soft to palpation and Yes Tenderness to palpation present (GI) (mild ttp at site of JEAN PIERRE drain with erythema- drain already removed) Auscultation: normal bowel sounds Skin: General skin exam: normal color Neuro: Speech: normal speech Motor exam (neuro): 5/5 motor strength present throughout Extrem: General: normal to inspection Psych: Affect: No Hostile affect present Objective Data Vital Signs Vital Signs: Vital Signs - 24 hr 08/09/24 20:00 08/09/24 20:00 08/09/24 20:09 Temperature 99.1 F Pulse Rate 86 86 Respiratory Rate 16 Blood Pressure 105/54 L Pulse Oximetry 99 99 Oxygen Delivery Nasal Cannula Oxygen Flow Rate 2 Fraction of Inspired Oxygen 08/10/24 00:00 08/10/24 04:00 08/10/24 05:15 Temperature 98.1 F Pulse Rate 88 84 83 Respiratory Rate 16 Blood Pressure 113/52 L Pulse Oximetry 99 Oxygen Delivery Oxygen Flow Rate Fraction of Inspired Oxygen 08/10/24 08:00 08/10/24 08:00 08/10/24 08:35 Temperature Pulse Rate 74 Respiratory Rate Blood Pressure Pulse Oximetry 98 Oxygen Delivery Room Air Nasal Cannula Oxygen Flow Rate 2 Fraction of Inspired Oxygen 28 08/10/24 09:04 08/10/24 12:00 08/10/24 14:00 Temperature 97.9 F Pulse Rate 87 104 H 88 Respiratory Rate 16 Blood Pressure 132/63 Pulse Oximetry 92 Oxygen Delivery Oxygen Flow Rate Fraction of Inspired Oxygen 08/10/24 16:00 Temperature Pulse Rate 82 Respiratory Rate Blood Pressure Pulse Oximetry Oxygen Delivery Oxygen Flow Rate Fraction of Inspired Oxygen Intake/Output Intake/Output: Intake & Output 08/07/24 08/08/24 08/09/24 08/10/24 23:59 23:59 23:59 23:59 Intake Total 6450 826 7983 890 Output Total 585 430 380 Balance 605 10 960 890 Meds/Results Medications: Active Medications Generic Name Dose Route Start Last Admin Trade Name Freq PRN Reason Stop Dose Admin Acetaminophen 1,000 mg 07/22/24 08:52 08/10/24 14:02 Acetaminophen 500 Mg Tablet PO 1,000 mg Q6H PRN Administration Mild Pain (1-3) or Fever Amitriptyline HCl 20 mg 07/21/24 21:15 08/09/24 21:02 Amitriptyline Hcl 10 Mg Tablet PO 20 mg QHS MELISSA Administration Amoxicillin/Clavulanate Potassium 1 tablet 08/02/24 21:00 08/10/24 09:06 Amoxicillin/Clavulanate K 875-125 Mg Tab PO 1 tablet Q12HR MELISSA Administration Atorvastatin Calcium 40 mg 07/21/24 21:15 08/09/24 21:02 Atorvastatin 40 Mg Tablet PO 40 mg QHS MELISSA Administration Cyanocobalamin 500 mcg 07/22/24 09:00 08/10/24 09:04 Cyanocobalamin 500 Mcg Tablet PO 500 mcg QAM MELISSA Administration Cyanocobalamin 2,000 mcg 07/22/24 09:00 08/10/24 09:06 Cyanocobalamin 1,000 Mcg Tablet PO 2,000 mcg QAM MELISSA Administration Enoxaparin Sodium 40 mg 08/01/24 09:00 08/10/24 09:06 Enoxaparin 40 Mg/0.4 Ml Syringe SUB-Q 40 mg DAILY MELISSA Administration Gabapentin 200 mg 07/22/24 09:00 08/10/24 16:08 Gabapentin 100 Mg Capsule PO 200 mg BID MELISSA Administration Levothyroxine Sodium 25 mcg 07/22/24 06:30 08/10/24 05:49 Levothyroxine Sodium 25 Mcg Tablet PO 25 mcg DAILY@0630 MELISSA Administration Metoprolol Succinate 100 mg 08/08/24 09:00 08/10/24 09:04 Metoprolol Succinate Ext Rel 100 Mg Tabcr PO 100 mg QAM MELISSA Administration Ondansetron HCl 4 mg 07/22/24 08:52 07/30/24 23:22 Ondansetron Inj 4 Mg/2 Ml Vial IV PUSH 4 mg Q6H PRN Administration Nausea And Vomiting Ondansetron HCl 4 mg 08/05/24 12:23 08/05/24 12:38 Ondansetron Hcl Odt 4 Mg Tablet PO 4 mg Q6H PRN Administration Nausea And Vomiting Pantoprazole Sodium 40 mg 07/22/24 09:00 08/10/24 09:06 Pantoprazole 40 Mg Tablet PO 40 mg QAM MELISSA Administration Tamsulosin HCl 0.4 mg 07/22/24 09:00 08/10/24 09:05 Tamsulosin Hcl 0.4 Mg Capsule PO 0.4 mg DAILY MELISSA Administration Tramadol HCl 50 mg 08/02/24 09:21 08/08/24 05:50 Tramadol Hcl (*Crx) 50 Mg Tablet PO 50 mg Q6H PRN Administration Pain Rated 4-6 Radiology Results: ITS Impressions Abdomen/Pelvis CT 07/22/24 08:52 Impression: Percutaneous cholecystostomy tube in place with distended irregular gallbladder with marked irregular wall thickening and pericholecystic infarct or change, compatible with acute cholecystitis. Fluid-filled tract communicating with the gallbladder lumen at the superior aspect, which represents a tract related to prior cholecystostomy tube placement, with extension into the anterior abdominal wall. Additional suspected area of contained perforation at the inferior aspect of the gallbladder, which is new from prior exam. Acute L1 compression fracture, new from prior exam. Worsening T12 compression fracture as compared to prior exam with progressive loss of height. Cholecystostomy 07/23/24 14:08 IMPRESSION: 1. Successful upsizing to 12 [place] of a right upper quadrant percutaneous cholecystostomy tube. 2. Patent cystic and common bile ducts. Chest X-Ray 08/04/24 13:43 IMPRESSION: Bibasilar atelectasis versus with left pleural effusion. Head CT 08/08/24 13:23 IMPRESSION: 1. Stable age-related changes including mild to moderate diffuse volume loss and moderate scattered white matter hypoattenuation consistent with chronic small vessel ischemic disease. Labs Labs: Laboratory Results - last 24 hr 08/10/24 05:02 WBC 11.8 H RBC 2.72 L Hgb 7.7 L Hct 26.1 L MCV 96.0 MCH 28.3 MCHC 29.5 L RDW 15.2 H Plt Count 234 MPV 10.2 Immature Gran % (Auto) 0.7 H Neut % (Auto) 77.6 H Lymph % (Auto) 14.0 L [place] % (Auto) 6.0 Eos % (Auto) 1.6 Baso % (Auto) 0.1 L Lymph # (Auto) 1.66 [place] # (Auto) 0.7 H Eos # (Auto) 0.2 Baso # (Auto) 0.0 Abs Immat Gran (auto) 0.08 H Absolute Neuts (auto) 9.2 H Absolute Nucleated RBC 0.000 Band Neutrophils % Not Reportable Nucleated RBC % 0.0 Platelet Estimate Adequate Polychromasia 1+ Hypochromasia 1+ Basophilic Stippling 1+ Anisocytosis 1+ Target Cells 1+ Schistocytes None seen Sodium 132 L Potassium 3.7 Chloride 99 Carbon Dioxide 29 Anion Gap 4 BUN 12 Creatinine 0.51 L Estim Creat Clear Calc 55 Estimated GFR > 60 Glucose 100 Calcium 8.3 L Magnesium 1.6 Total Bilirubin 0.3 AST 25 ALT 14 Alkaline Phosphatase 85 Total Protein 5.0 L Albumin 2.5 L
[2024-08-10] MEDS: ATORVASTATIN 40 MG TABLET PO (20:42)
[2024-08-10] MEDS: AMITRIPTYLINE HCL 10 MG TABLET 20 MG PO (20:42)
[2024-08-11] VITALS (9 sets, daily range): BP systolic 115–129; BP diastolic 57–83; PULSE 84–95; RESP 16; TEMP 36.4–37.5; O2SAT 93–97
[2024-08-11] MEDS: LEVOTHYROXINE SODIUM 25 MCG TABLET PO (05:23)
[2024-08-11 05:54] LABS: Basophils Percent Auto 0.1 % (0.2-1.2); Eosinophils Absolute Auto 0.2 K/mm3 (0-0.3); Eosinophils Percent Auto 2.1 % (0-4.4); Hematocrit 27.5 % (37.0-47.0); Hemoglobin 8.3 g/dL (12.0-15.0); Immature Granulocyte Absolute 0.04 K/mm3 (0.00-0.031); Immature Granulocyte Percent A 0.4 % (0-0.5); Lymphocytes Absolute Auto 1.22 K/mm3 (0.9-3.2); Lymphocytes Percent Auto 12.3 % (18.3-44.2); Mean Corpuscular HGB Conc 30.2 g/dl (32-36); Mean Corpuscular Hemoglobin 28.3 pg (26-34); Mean Corpuscular Volume 93.9 fl (80-100); Mean Platelet Volume 10.1 fl (7.4-10.4); Monocytes Absolute Auto 0.5 K/mm3 (0.1-0.6); Monocytes Percent Auto 5.1 % (2.6-8.5); Platelet Count Result 277 k/mm3 (150-375); Red Blood Count 2.93 M/mm3 (4.2-5.4); Red Cell Distribution Width 14.9 % (11.5-14.5); White Blood Count 9.9 K/mm3 (4.5-10.0)
[2024-08-11 06:13] LABS: Alanine Aminotransferase 25 U/L (6-35); Albumin Level 2.7 g/dL (3.5-5.1); Alkaline Phosphatase 114 U/L (38-126); Anion Gap 5 mmol/L (4-12); Aspartate Amino Transferase 47 U/L (14-36); Bilirubin,Total 0.2 mg/dL (0.2-1.3); Blood Urea Nitrogen 12 mg/dL (7-17); Calcium 8.3 mg/dL (8.4-10.2); Carbon Dioxide 31 mmol/L (22-30); Chloride 98 mmol/L (98-107); Estimated CRCL calculation 64 ml/min; Estimated Glomerular Filt Rate > 60; Glucose 130 mg/dL (65-110); Potassium 3.4 mmol/L (3.4-5.0); Sodium 134 mmol/L (137-145)
[2024-08-11] MEDS: GABAPENTIN 100 MG CAPSULE 200 MG PO ×2 (08:51→16:32)
[2024-08-11] MEDS: TAMSULOSIN HCL 0.4 MG CAPSULE PO (08:51)
[2024-08-11] MEDS: METOPROLOL SUCCINATE EXT REL 100 MG TABCR PO (08:51)
[2024-08-11] MEDS: AMOXICILLIN/CLAVULANATE K 875-125 MG TAB 1 TABLET PO ×2 (08:51→22:15)
[2024-08-11] MEDS: PANTOPRAZOLE 40 MG TABLET PO (08:51)
[2024-08-11] MEDS: CYANOCOBALAMIN 1,000 MCG TABLET 2000 MCG PO (08:51)
[2024-08-11] MEDS: ENOXAPARIN 40 MG/0.4 ML SYRINGE SUB-Q (08:52)
[2024-08-11] MEDS: CYANOCOBALAMIN 500 MCG TABLET PO (08:52)
[2024-08-11] MEDS: POTASSIUM CHLORIDE 20 MEQ ER TABLET 40 MEQ PO (08:56)
--- NOTE | 2024-08-11 11:18 | PM.IMPN ---
Progress Note: A&P Assessment and Plan (1) Acute cholecystitis: Code(s): K81.0 - Acute cholecystitis Status: Acute Assessment and Plan: Cholecystostomy tube 07/23 in IR. Continue have purulent discharge from the cholecystotomy tube Management per general surgeon She is status post cholecystectomy 07/31/2024. Augmentin 875-125 mg 1 tablet PO q 12. GI consult. ERCP done 08/06 and stent successfully placed across biliary leak. Patient will need an ERCP again in 8-10 weeks to remove stent. Low fat diet. WBC 9.9, Lipase 19. (2) Essential hypertension: Code(s): I10 - Essential (primary) hypertension Status: Acute Assessment and Plan: Metoprolol Succinate 100 mg PO QAM, home dose. Blood pressure 127/83. (3) Coronary artery disease involving [place] coronary artery of [place] heart: Code(s): I25.10 - Atherosclerotic heart disease of [place] coronary artery without angina pectoris Status: Acute Assessment and Plan: Atorvastatin 40 mg PO QHS. (4) Severe protein-calorie malnutrition: Code(s): E43 - Unspecified severe protein-calorie malnutrition Status: Acute Assessment and Plan: Protein 6.0. Severe protein calorie malnutrition related to taste changes, poor appetite, nausea as evidenced by intakes <75% needs >1 month. Weight loss-15%/3 months: moderate fat loss, severe muscle wasting. Ensure Enlive TID and Nutritional ice cream TID. Business Office Manager following. (5) Atrial fibrillation: Qualifiers: Atrial fibrillation type: unspecified Qualified Code(s): I48.91 - Unspecified atrial fibrillation Code(s): I48.91 - Unspecified atrial fibrillation Status: Acute Assessment and Plan: Metoprolol Succinate 100 mg PO daily. Lovenox 40 mg subq daily. Telemetry. Eliquis on hold until okayed by GI and surgery. (6) Hypothyroidism: Code(s): E03.9 - Hypothyroidism, unspecified Status: Acute Assessment and Plan: Levothyroxine 25 mcg PO daily. (7) T12 compression fracture: Code(s): S22.080A - Wedge compression fracture of T11-T12 vertebra, initial encounter for closed fracture Status: Acute Assessment and Plan: Patient is followed by pain management and to have kyphoplasty, patient was supposed to have this week but ended up hospitalized. TLSO ordered. PT/OT No focal deficits no urinary fecal incontinence Subjective Date/time seen: 08/11/24 11:18 Interval history: Patient lying in bed. Reports daughter went home to get her house ready for mom to come home. Patient denies chest pain, palpitations, headache, dizziness, nausea, or vomiting. Review of Systems Review of Systems: All systems reviewed & are unremarkable except as noted in HPI and below Exam Const: General: comfortable and no acute distress Resp: Effort & Inspection: normal respiratory effort Auscultation: clear to auscultation bilaterally Cardio: Rate: regular rate Rhythm: regular rhythm Other: Telemetry- SR- 98. GI: GI Palp: Yes Soft to palpation Auscultation: normal bowel sounds Other: increased erythema and swelling extended today around SRAVAN site. Neuro: Speech: normal speech Extrem: General: no pedal edema Psych: Mental Status: mental status grossly normal Affect: normal affect Objective Data Vital Signs Vital Signs: Vital Signs - 24 hr 08/10/24 12:00 08/10/24 14:00 08/10/24 16:00 Temperature 97.9 F Pulse Rate 104 H 88 82 Respiratory Rate 16 Blood Pressure 132/63 Pulse Oximetry 92 Oxygen Delivery Fraction of Inspired Oxygen 08/10/24 19:45 08/10/24 20:00 08/10/24 20:00 Temperature 98.4 F Pulse Rate 80 79 Respiratory Rate 16 Blood Pressure 106/60 Pulse Oximetry 97 97 Oxygen Delivery Room Air Fraction of Inspired Oxygen 08/10/24 20:21 08/11/24 00:00 08/11/24 04:00 Temperature Pulse Rate 62 94 90 Respiratory Rate 20 Blood Pressure Pulse Oximetry 97 Oxygen Delivery Room Air Fraction of Inspired Oxygen 21 08/11/24 05:15 Temperature 99.5 F Pulse Rate 89 Respiratory Rate 16 Blood Pressure 115/60 Pulse Oximetry 93 Oxygen Delivery Fraction of Inspired Oxygen Intake/Output Intake/Output: Intake & Output 08/08/24 08/09/24 08/10/24 08/11/24 23:59 23:59 23:59 23:59 Intake Total 440 1340 1280 236 Output Total 430 380 Balance 10 960 1280 236 Meds/Results Medications: Active Medications Generic Name Dose Route Start Last Admin Trade Name Freq PRN Reason Stop Dose Admin Acetaminophen 1,000 mg 07/22/24 08:52 08/10/24 14:02 Acetaminophen 500 Mg Tablet PO 1,000 mg Q6H PRN Administration Mild Pain (1-3) or Fever Amitriptyline HCl 20 mg 07/21/24 21:15 08/10/24 20:42 Amitriptyline Hcl 10 Mg Tablet PO 20 mg QHS [facility] Administration Amoxicillin/Clavulanate Potassium 1 tablet 08/02/24 21:00 08/11/24 08:51 Amoxicillin/Clavulanate K 875-125 Mg Tab PO 1 tablet Q12HR MELISSA Administration Atorvastatin Calcium 40 mg 07/21/24 21:15 08/10/24 20:42 Atorvastatin 40 Mg Tablet PO 40 mg QHS [facility] Administration Cyanocobalamin 500 mcg 07/22/24 09:00 08/11/24 08:52 Cyanocobalamin 500 Mcg Tablet PO [address] [facility] [place] [facility] Cyanocobalamin 2,000 mcg 07/22/24 09:00 08/11/24 08:51 Cyanocobalamin 1,000 Mcg Tablet PO 2,[address] [facility] [place] Administration Enoxaparin Sodium 40 mg 08/01/24 09:00 08/11/24 08:52 Enoxaparin 40 Mg/0.4 Ml Syringe SUB-Q 40 mg DAILY [facility] Administration Gabapentin 200 mg 07/22/24 09:00 08/11/24 08:51 Gabapentin 100 Mg Capsule PO 200 mg BID [facility] Administration Levothyroxine Sodium 25 mcg 07/22/24 06:30 08/11/24 05:23 Levothyroxine Sodium 25 Mcg Tablet PO 25 mcg DAILY@0630 [facility] Administration Metoprolol Succinate 100 mg 08/08/24 09:00 08/11/24 08:51 Metoprolol Succinate Ext Rel 100 Mg Tabcr PO 100 mg QAM [facility] Administration Ondansetron HCl 4 mg 07/22/24 08:52 07/30/24 23:22 Ondansetron Inj 4 Mg/2 Ml Vial IV PUSH 4 mg Q6H PRN Administration Nausea And Vomiting Ondansetron HCl 4 mg 08/05/24 12:23 08/05/24 12:38 Ondansetron Hcl Odt 4 Mg Tablet PO 4 mg Q6H PRN Administration Nausea And Vomiting Pantoprazole Sodium 40 mg 07/22/24 09:00 08/11/24 08:51 Pantoprazole 40 Mg Tablet PO 40 mg QAM [facility] Administration Tamsulosin HCl 0.4 mg 07/22/24 09:00 08/11/24 08:51 Tamsulosin Hcl 0.4 Mg Capsule PO 0.4 mg DAILY MELISSA Administration Tramadol HCl 50 mg 08/02/24 09:21 08/08/24 05:50 Tramadol Hcl (*Crx) 50 Mg Tablet PO 50 mg Q6H PRN Administration Pain Rated 4-6 Radiology Results: ITS Impressions Abdomen/Pelvis CT 07/22/24 08:52 Impression: Percutaneous cholecystostomy tube in place with distended irregular gallbladder with marked irregular wall thickening and pericholecystic infarct or change, compatible with acute cholecystitis. Fluid-filled tract communicating with the gallbladder lumen at the superior aspect, which represents a tract related to prior cholecystostomy tube placement, with extension into the anterior abdominal wall. Additional suspected area of contained perforation at the inferior aspect of the gallbladder, which is new from prior exam. Acute L1 compression fracture, new from prior exam. Worsening T12 compression fracture as compared to prior exam with progressive loss of height. Cholecystostomy 07/23/24 14:08 IMPRESSION: 1. Successful upsizing to 12 [place] of a right upper quadrant percutaneous cholecystostomy tube. 2. Patent cystic and common bile ducts. Chest X-Ray 08/04/24 13:43 IMPRESSION: Bibasilar atelectasis versus with left pleural effusion. Head CT 08/08/24 13:23 IMPRESSION: 1. Stable age-related changes including mild to moderate diffuse volume loss and moderate scattered white matter hypoattenuation consistent with chronic small vessel ischemic disease. Labs Labs: Laboratory Results - last 24 hr 08/11/24 04:50 WBC 9.9 RBC 2.93 L Hgb 8.3 L Hct 27.5 L MCV 93.9 MCH 28.3 MCHC 30.2 L RDW 14.9 H Plt Count 277 MPV 10.1 Immature Gran % (Auto) 0.4 Neut % (Auto) 80.0 H Lymph % (Auto) 12.3 L [place] % (Auto) 5.1 Eos % (Auto) 2.1 Baso % (Auto) 0.1 L Lymph # (Auto) 1.22 [place] # (Auto) 0.5 Eos # (Auto) 0.2 Baso # (Auto) 0.0 Abs Immat Gran (auto) 0.04 H Absolute Neuts (auto) 8.0 H Absolute Nucleated RBC 0.000 Nucleated RBC % 0.0 Sodium 134 L Potassium 3.4 Chloride 98 Carbon Dioxide 31 H Anion Gap 5 BUN 12 Creatinine 0.43 L Estim Creat Clear Calc 64 Estimated GFR > 60 Glucose 130 H Calcium 8.3 L Magnesium 2.0 Total Bilirubin 0.2 AST 47 H ALT 25 Alkaline Phosphatase 114 Total Protein 6.0 L Albumin 2.7 L Quality VTE Prophylaxis VTE prophylaxis: mechanical ordered and pharmacologic ordered
--- NOTE | 2024-08-11 15:42 | P.PNGS_ITS ---
Progress Note: A&P Assessment and Plan (1) Cholecystitis: Code(s): K81.9 - Cholecystitis, unspecified Status: Acute Assessment and Plan: Postop day 11 following laparoscopic non fenestrated subtotal cholecystectomy. WBC count normalized today after SRAVAN drain removal yesterday. The erythema and swelling has extended slightly more today. There is no drainage from the SRAVAN drain site and no obvious abscess on exam. This area was marked and we will re- evaluate again tomorrow. Will discuss antimicrobial coverage with Dr. Chester. Continue Augmentin for now. (2) Bile leak, postoperative: Code(s): K91.89 - Other postprocedural complications and disorders of digestive system; K83.8 - Other specified diseases of biliary tract Status: Acute Assessment and Plan: Postop bile leak resolved following ERCP and stent placement. Plan I have discussed the patient's case and plan of care with Dr. Chester. The patient requires extended hospitalization due to postoperative soft tissue infection around the SRAVAN drain site being treated with antibiotics with progressive erythema today. Subjective Subjective Date/Time Seen: 08/11/24 15:42 Patient reports: no new complaints and afebrile Interval history: Still has some mild right upper quadrant pain, but better. WBC count normal. Nursing marked around the area of erythema yesterday. Exam Const: General: comfortable and no acute distress Orientation/consciousness: patient oriented x3 GI: Auscultation: normal bowel sounds Other: Abdomen is nondistended and soft. There is localized erythema, induration, and edema of the right upper abdominal wall that extends laterally towards, but not including, the flank. The erythema has extended further outside of the lines drawn by nursing yesterday. There is no obvious abscess or fluctuance. She is press tender star signal in this area. No tenderness throughout the rest of her abdomen. No drainage coming from the SRAVAN drain site. Gauze dressing was changed Objective Data Vital Signs Vital Signs: Vital Signs - 24 hr 08/10/24 16:00 08/10/24 19:45 08/10/24 20:00 Temperature 98.4 F Pulse Rate 82 80 Respiratory Rate 16 Blood Pressure 106/60 Pulse Oximetry 97 97 Oxygen Delivery Room Air Fraction of Inspired Oxygen 08/10/24 20:00 08/10/24 20:21 08/11/24 00:00 Temperature Pulse Rate 79 62 94 Respiratory Rate 20 Blood Pressure Pulse Oximetry 97 Oxygen Delivery Room Air Fraction of Inspired Oxygen 08/11/24 04:00 08/11/24 05:15 08/11/24 14:00 Temperature 99.5 F 97.6 F Pulse Rate 90 89 91 Respiratory Rate 16 16 Blood Pressure 115/60 127/83 Pulse Oximetry 93 96 Oxygen Delivery Fraction of Inspired Oxygen Intake/Output Intake/Output: Intake & Output 08/08/24 08/09/24 08/10/24 08/11/24 23:59 23:59 23:59 23:59 Intake Total 440 1340 1280 236 Output Total 430 380 Balance 10 960 1280 236 Meds/Results Medications: Active Medications Generic Name Dose Route Start Last Admin Trade Name Freq PRN Reason Stop Dose Admin Acetaminophen 1,000 mg 07/22/24 08:52 08/10/24 14:02 Acetaminophen 500 Mg Tablet PO 1,000 mg Q6H PRN Administration Mild Pain (1-3) or Fever Amitriptyline HCl 20 mg 07/21/24 21:15 08/10/24 20:42 Amitriptyline Hcl 10 Mg Tablet PO 20 mg QHS MELISSA Administration Amoxicillin/Clavulanate Potassium 1 tablet 08/02/24 21:00 08/11/24 08:51 Amoxicillin/Clavulanate K 875-125 Mg Tab PO 1 tablet Q12HR MELISSA Administration Atorvastatin Calcium 40 mg 07/21/24 21:15 08/10/24 20:42 Atorvastatin 40 Mg Tablet PO 40 mg QHS MELISSA Administration Cyanocobalamin 500 mcg 07/22/24 09:00 08/11/24 08:52 Cyanocobalamin 500 Mcg Tablet PO 500 mcg QAM MELISSA Administration Cyanocobalamin 2,000 mcg 07/22/24 09:00 08/11/24 08:51 Cyanocobalamin 1,000 Mcg Tablet PO 2,000 mcg QAM MELISSA Administration Enoxaparin Sodium 40 mg 08/01/24 09:00 08/11/24 08:52 Enoxaparin 40 Mg/0.4 Ml Syringe SUB-Q 40 mg DAILY MELISSA Administration Gabapentin 200 mg 07/22/24 09:00 08/11/24 08:51 Gabapentin 100 Mg Capsule PO 200 mg BID MELISSA Administration Levothyroxine Sodium 25 mcg 07/22/24 06:30 08/11/24 05:23 Levothyroxine Sodium 25 Mcg Tablet PO 25 mcg DAILY@0630 MELISSA Administration Metoprolol Succinate 100 mg 08/08/24 09:00 08/11/24 08:51 Metoprolol Succinate Ext Rel 100 Mg Tabcr PO 100 mg QAM MELISSA Administration Ondansetron HCl 4 mg 07/22/24 08:52 07/30/24 23:22 Ondansetron Inj 4 Mg/2 Ml Vial IV PUSH 4 mg Q6H PRN Administration Nausea And Vomiting Ondansetron HCl 4 mg 08/05/24 12:23 08/05/24 12:38 Ondansetron Hcl Odt 4 Mg Tablet PO 4 mg Q6H PRN Administration Nausea And Vomiting Pantoprazole Sodium 40 mg 07/22/24 09:00 08/11/24 08:51 Pantoprazole 40 Mg Tablet PO 40 mg QAM MELISSA Administration Tamsulosin HCl 0.4 mg 07/22/24 09:00 08/11/24 08:51 Tamsulosin Hcl 0.4 Mg Capsule PO 0.4 mg DAILY MELISSA Administration Tramadol HCl 50 mg 08/02/24 09:21 08/08/24 05:50 Tramadol Hcl (*Crx) 50 Mg Tablet PO 50 mg Q6H PRN Administration Pain Rated 4-6 Radiology Results: ITS Impressions Abdomen/Pelvis CT 07/22/24 08:52 Impression: Percutaneous cholecystostomy tube in place with distended irregular gallbladder with marked irregular wall thickening and pericholecystic infarct or change, compatible with acute cholecystitis. Fluid-filled tract communicating with the gallbladder lumen at the superior aspect, which represents a tract related to prior cholecystostomy tube placement, with extension into the anterior abdominal wall. Additional suspected area of contained perforation at the inferior aspect of the gallbladder, which is new from prior exam. Acute L1 compression fracture, new from prior exam. Worsening T12 compression fracture as compared to prior exam with progressive loss of height. Cholecystostomy 07/23/24 14:08 IMPRESSION: 1. Successful upsizing to 12 [place] of a right upper quadrant percutaneous cholecystostomy tube. 2. Patent cystic and common bile ducts. Chest X-Ray 08/04/24 13:43 IMPRESSION: Bibasilar atelectasis versus with left pleural effusion. Head CT 08/08/24 13:23 IMPRESSION: 1. Stable age-related changes including mild to moderate diffuse volume loss and moderate scattered white matter hypoattenuation consistent with chronic small vessel ischemic disease. Labs Labs: Laboratory Results - last 24 hr 08/11/24 04:50 WBC 9.9 RBC 2.93 L Hgb 8.3 L Hct 27.5 L MCV 93.9 MCH 28.3 MCHC 30.2 L RDW 14.9 H Plt Count 277 MPV 10.1 Immature Gran % (Auto) 0.4 Neut % (Auto) 80.0 H Lymph % (Auto) 12.3 L [place] % (Auto) 5.1 Eos % (Auto) 2.1 Baso % (Auto) 0.1 L Lymph # (Auto) 1.22 [place] # (Auto) 0.5 Eos # (Auto) 0.2 Baso # (Auto) 0.0 Abs Immat Gran (auto) 0.04 H Absolute Neuts (auto) 8.0 H Absolute Nucleated RBC 0.000 Nucleated RBC % 0.0 Sodium 134 L Potassium 3.4 Chloride 98 Carbon Dioxide 31 H Anion Gap 5 BUN 12 Creatinine 0.43 L Estim Creat Clear Calc 64 Estimated GFR > 60 Glucose 130 H Calcium 8.3 L Magnesium 2.0 Total Bilirubin 0.2 AST 47 H ALT 25 Alkaline Phosphatase 114 Total Protein 6.0 L Albumin 2.7 L
--- NOTE | 2024-08-11 18:12 | PM.PNGS ---
Subjective Subjective Date/Time Seen: 08/11/24 18:12 Interval history: The patient is an elderly 84-year-old frail female pat has had a very protracted course with initial acute cholecystitis due to gallstones. At that time she presented with imaging and clinical signs and symptoms of acute cholecystitis. However she was also thought to possibly have had a myocardial infarction. She underwent cardiac evaluation for the myocardial infarction and the meantime a cholecystostomy tube was placed by Interventional Radiology to temporize the acute cholecystitis. Eventually was found that she had not had a myocardial infarction and she was getting better with a cholecystostomy tube in place. Unfortunately the cholecystostomy tube was pulled out and since the patient was doing okay it was decided just observe and see if she could continue to eat and not have right upper quadrant pain and symptoms of cholecystitis. Unfortunately this was not the case and she had recurrent symptoms and a 2nd cholecystostomy tube had to be placed and she was readmitted to the hospital. Despite being on extended course of oral antibiotics, the cholecystitis did not resolve even with the gallbladder being drained with a cholecystostomy tube. She was still considered to be a poor surgical candidate due to her frail state and so the incision was made to admit her to the hospital and started on IV antibiotics and try to drain the gallbladder better by exchange of the small cholecystostomy tube to a much larger cholecystostomy tube in Interventional Radiology. This was done because the gallbladder output was very purulent in nature and her cholecystitis certainly was more acute than chronic. A large drain was placed but unfortunately even with irrigation of the gallbladder, the cholecystostomy tube output from the drain continued to be purulent. At this point a decision was then made after discussion with the patient and her daughter that proceeding with surgery may be the only viable option to try to make her feel better and to treat the cholecystitis. After the decision was made to proceed with surgery, the critical piece of equipment to try to do this very complex cholecystectomy laparoscopically was unavailable due to malfunction of our di Melissa robot. I felt in my clinical judgment that the advantages of visualization and the use of firefly to visualize the biliary anatomy during the surgery would be critical totrying to perform the surgery safely laparoscopically. After having to reschedule the surgery twice due to need to repair the di Melissa robot, the surgery was finally performed. It was very difficult laparoscopic surgery even with the use of the di Melissa robot. The gallbladder was acutely inflamed and appeared at some point was gangrenous due to the severe acute infection and this was evident by scarring and perforation of the wall the gallbladder and keli cholecystic abscesses due to the perforation of the gallbladder. The details of the complexity of the surgery can be found in the dictated operative note. Postsurgically the patient recovered slowly due to her advanced age and deconditioning from this ongoing chronic infection. She then developed a bile leak from the subtotal non fenestrated robotic assisted laparoscopic cholecystectomy that I had performed. This was not unexpected and so I then consulted gastroenterology to evaluate her for an ERCP and placement of a biliary stent to stop the bile leak. The hospitalization was then extended to perform the ERCP and a biliary stent. After this was done, the patient appeared to have resolution of the bile leak. Physical therapy and occupational therapy were still working with her and evaluating for disposition to either home with home health or to a senior living facility. Three days before the decision to discharge the patient she had mental status changes and underwent workup for possible stroke. The workup was negative however. Currently, I think we are hoping for discharge within the next 24 to 48 hours as long as she remains clinically stable. Objective Data Vital Signs Vital Signs: Vital Signs - 24 hr 08/10/24 19:45 08/10/24 20:00 08/10/24 20:00 Temperature 36.9 C Pulse Rate 80 79 Respiratory Rate 16 Blood Pressure 106/60 Pulse Oximetry 97 97 Oxygen Delivery Room Air Fraction of Inspired Oxygen 08/10/24 20:21 08/11/24 00:00 08/11/24 04:00 Temperature Pulse Rate 62 94 90 Respiratory Rate 20 Blood Pressure Pulse Oximetry 97 Oxygen Delivery Room Air Fraction of Inspired Oxygen 21 08/11/24 05:15 08/11/24 14:00 Temperature 37.5 C 36.4 C Pulse Rate 89 91 Respiratory Rate 16 16 Blood Pressure 115/60 127/83 Pulse Oximetry 93 96 Oxygen Delivery Fraction of Inspired Oxygen Intake/Output Intake/Output: Intake & Output 08/08/24 08/09/24 08/10/24 08/11/24 23:59 23:59 23:59 23:59 Intake Total 440 1340 1280 336 Output Total 430 380 200 Balance 10 960 1280 136 Meds/Results Medications: Active Medications Generic Name Dose Route Start Last Admin Trade Name Freq PRN Reason Stop Dose Admin Acetaminophen 1,000 mg 07/22/24 08:52 08/10/24 14:02 Acetaminophen 500 Mg Tablet PO 1,000 mg Q6H PRN Administration Mild Pain (1-3) or Fever Amitriptyline HCl 20 mg 07/21/24 21:15 08/10/24 20:42 Amitriptyline Hcl 10 Mg Tablet PO 20 mg QHS [facility] Administration Amoxicillin/Clavulanate Potassium 1 tablet 08/02/24 21:00 08/11/24 08:51 Amoxicillin/Clavulanate K 875-125 Mg Tab PO 1 tablet Q12HR [facility] Administration Atorvastatin Calcium 40 mg 07/21/24 21:15 08/10/24 20:42 Atorvastatin 40 Mg Tablet PO 40 mg QHS [facility] Administration Cyanocobalamin 500 mcg 07/22/24 09:00 08/11/24 08:52 Cyanocobalamin 500 Mcg Tablet [facility] 500 [facility] Cyanocobalamin 2,000 mcg 07/22/24 09:00 08/11/24 08:51 Cyanocobalamin 1,000 Mcg Tablet PO 2,000 mcg [facility] Administration Enoxaparin Sodium 40 mg 08/01/24 09:00 08/11/24 08:52 Enoxaparin 40 Mg/0.4 Ml Syringe SUB-Q 40 mg DAILY [facility] Administration Gabapentin 200 mg 07/22/24 09:00 08/11/24 16:32 Gabapentin 100 Mg Capsule PO 200 mg BID [facility] Administration Levothyroxine Sodium 25 mcg 07/22/24 06:30 08/11/24 05:23 Levothyroxine Sodium 25 Mcg Tablet PO 25 mcg DAILY@0630 [facility] Administration Metoprolol Succinate 100 mg 08/08/24 09:00 08/11/24 08:51 Metoprolol Succinate Ext Rel 100 Mg Tabcr PO 100 mg QAM [facility] Administration Ondansetron HCl 4 mg 07/22/24 08:52 07/30/24 23:22 Ondansetron Inj 4 Mg/2 Ml Vial IV PUSH 4 mg Q6H PRN Administration Nausea And Vomiting Ondansetron HCl 4 mg 08/05/24 12:23 08/05/24 12:38 Ondansetron Hcl Odt 4 Mg Tablet PO 4 mg Q6H PRN Administration Nausea And Vomiting Pantoprazole Sodium 40 mg 07/22/24 09:00 08/11/24 08:51 Pantoprazole 40 Mg Tablet PO 40 mg QAM [facility] Administration Tamsulosin HCl 0.4 mg 07/22/24 09:00 08/11/24 08:51 Tamsulosin Hcl 0.4 Mg Capsule PO 0.4 mg DAILY [facility] Administration Tramadol HCl 50 mg 08/02/24 09:21 08/08/24 05:50 Tramadol Hcl (*Crx) 50 Mg Tablet PO 50 mg Q6H PRN Administration Pain Rated 4-6 Trimethoprim/Sulfamethoxazole 1 tab 08/11/24 21:00 Sulfamethoxazole/Trimethoprim 800/160 Mg Ds Tablet PO Q12HR [facility] Radiology Results: ITS Impressions Abdomen/Pelvis CT 07/22/24 08:52 Impression: Percutaneous cholecystostomy tube in place with distended irregular gallbladder with marked irregular wall thickening and pericholecystic infarct or change, compatible with acute cholecystitis. Fluid-filled tract communicating with the gallbladder lumen at the superior aspect, which represents a tract related to prior cholecystostomy tube placement, with extension into the anterior abdominal wall. Additional suspected area of contained perforation at the inferior aspect of the gallbladder, which is new from prior exam. Acute L1 compression fracture, new from prior exam. Worsening T12 compression fracture as compared to prior exam with progressive loss of height. Cholecystostomy 07/23/24 14:08 IMPRESSION: 1. Successful upsizing to 12 [place]ic of a right upper quadrant percutaneous cholecystostomy tube. 2. Patent cystic and common bile ducts. Chest X-Ray 08/04/24 13:43 IMPRESSION: Bibasilar atelectasis versus with left pleural effusion. Head CT 08/08/24 13:23 IMPRESSION: 1. Stable age-related changes including mild to moderate diffuse volume loss and moderate scattered white matter hypoattenuation consistent with chronic small vessel ischemic disease. Labs Labs: Laboratory Results - last 24 hr 08/11/24 04:50 WBC 9.9 RBC 2.93 L Hgb 8.3 L Hct 27.5 L MCV 93.9 MCH 28.3 MCHC 30.2 L RDW 14.9 H Plt Count 277 MPV 10.1 Immature Gran % (Auto) 0.4 Neut % (Auto) 80.0 H Lymph % (Auto) 12.3 L Ray % (Auto) 5.1 Eos % (Auto) 2.1 Baso % (Auto) 0.1 L Lymph # (Auto) 1.22 Ray # (Auto) 0.5 Eos # (Auto) 0.2 Baso # (Auto) 0.0 Abs Immat Gran (auto) 0.04 H Absolute Neuts (auto) 8.0 H Absolute Nucleated RBC 0.000 Nucleated RBC % 0.0 Sodium 134 L Potassium 3.4 Chloride 98 Carbon Dioxide 31 H Anion Gap 5 BUN 12 Creatinine 0.43 L Estim Creat Clear Calc 64 Estimated GFR > 60 Glucose 130 H Calcium 8.3 L Magnesium 2.0 Total Bilirubin 0.2 AST 47 H ALT 25 Alkaline Phosphatase 114 Total Protein 6.0 L Albumin 2.7 L
[2024-08-11] MEDS: AMITRIPTYLINE HCL 10 MG TABLET 20 MG PO (22:14)
[2024-08-11] MEDS: SULFAMETHOXAZOLE/TRIMETHOPRIM 800/160 MG DS TABLET 1 TAB PO (22:15)
[2024-08-11] MEDS: ATORVASTATIN 40 MG TABLET PO (22:15)
[2024-08-12] VITALS (8 sets, daily range): BP systolic 120–127; BP diastolic 53–60; PULSE 75–101; RESP 16–20; TEMP 36.6–36.8; O2SAT 94
[2024-08-12] MEDS: LEVOTHYROXINE SODIUM 25 MCG TABLET PO (05:03)
[2024-08-12 06:08] LABS: Basophils Percent Auto 0.3 % (0.2-1.2); Eosinophils Absolute Auto 0.3 K/mm3 (0-0.3); Eosinophils Percent Auto 3.1 % (0-4.4); Hematocrit 28.9 % (37.0-47.0); Hemoglobin 8.7 g/dL (12.0-15.0); Immature Granulocyte Absolute 0.06 K/mm3 (0.00-0.031); Immature Granulocyte Percent A 0.6 % (0-0.5); Lymphocytes Percent Auto 22.5 % (18.3-44.2); Mean Corpuscular HGB Conc 30.1 g/dl (32-36); Mean Corpuscular Hemoglobin 28.3 pg (26-34); Mean Corpuscular Volume 94.1 fl (80-100); Monocytes Absolute Auto 0.8 K/mm3 (0.1-0.6); Monocytes Percent Auto 7.6 % (2.6-8.5); Neutrophils Absolute Auto 6.7 K/mm3 (1.3-6.7); Neutrophils Percent Auto 65.9 % (45.5-73.1); Platelet Count Result 302 k/mm3 (150-375); Red Blood Count 3.07 M/mm3 (4.2-5.4); Red Cell Distribution Width 15.1 % (11.5-14.5); White Blood Count 10.2 K/mm3 (4.5-10.0)
[2024-08-12 06:36] LABS: Alanine Aminotransferase 27 U/L (6-35); Albumin Level 2.6 g/dL (3.5-5.1); Alkaline Phosphatase 105 U/L (38-126); Anion Gap 4 mmol/L (4-12); Aspartate Amino Transferase 48 U/L (14-36); Bilirubin,Total 0.3 mg/dL (0.2-1.3); Blood Urea Nitrogen 8 mg/dL (7-17); Calcium 8.3 mg/dL (8.4-10.2); Carbon Dioxide 30 mmol/L (22-30); Chloride 102 mmol/L (98-107); Estimated CRCL calculation 60 ml/min; Estimated Glomerular Filt Rate > 60; Glucose 97 mg/dL (65-110); Magnesium 1.9 mg/dL (1.6-2.3); Sodium 136 mmol/L (137-145)
[2024-08-12] MEDS: AMOXICILLIN/CLAVULANATE K 875-125 MG TAB 1 TABLET PO (08:26)
[2024-08-12] MEDS: CYANOCOBALAMIN 1,000 MCG TABLET 2000 MCG PO (08:26)
[2024-08-12] MEDS: METOPROLOL SUCCINATE EXT REL 100 MG TABCR PO (08:26)
[2024-08-12] MEDS: CYANOCOBALAMIN 500 MCG TABLET PO (08:26)
[2024-08-12] MEDS: GABAPENTIN 100 MG CAPSULE 200 MG PO ×2 (08:26→17:12)
[2024-08-12] MEDS: SULFAMETHOXAZOLE/TRIMETHOPRIM 800/160 MG DS TABLET 1 TAB PO (08:26)
[2024-08-12] MEDS: TAMSULOSIN HCL 0.4 MG CAPSULE PO (08:27)
[2024-08-12] MEDS: ENOXAPARIN 40 MG/0.4 ML SYRINGE SUB-Q (08:27)
[2024-08-12] MEDS: PANTOPRAZOLE 40 MG TABLET PO (08:27)
[2024-08-12] MEDS: ONDANSETRON INJ 4 MG/2 ML VIAL IV PUSH (10:36)
--- NOTE | 2024-08-12 11:42 | PCNFU ---
Nutrition Follow-Up Complete: Severe protein calorie malnutrition related chronic taste changes, poor appetite, nausea as evidenced by intakes <75% needs >1 month; weight loss -15%/3 months; moderate fat loss, severe muscle wasting Improve PO intake >50% meals and supplement- Slow progress to goals. Intakes mostly 0-30% with some greater. Continue with same goals Goal: Pt current nutrition is Low fat diet, Ensure Enlive TID (350 kcal, 20 g protein) and nutritional ice cream TID (270 kcal, 9 g protein). Nutrition recommendation: No new recommendations. Continue current nutrition care plan and orders. Agree with orders Last recorded weight is 67.4 kg. Bowel Motility: +1 BM 08/11 Labs Reviewed: Hgb 8.7, Hct 28.9, Alb 2.6, Na 136, Cre 0.46 Meds Noted: Protonix, Lovenox, Zofran, B12 Skin: No skin issues Additional Notes: Slow progress. Still having some redness around drain site. Continue current orders. Monitoring intakes, weights, labs, supplement tolerance, plan of care Follow up in 5 days
--- NOTE | 2024-08-12 12:17 | P.DS_ITS ---
DS: Admitting Diagnosis Discharge Date 08/12/2024 DS: Discharge Diagnosis Discharge Diagnosis (1) Cholecystitis: Code(s): K81.9 - Cholecystitis, unspecified Status: Acute Assessment and Plan: Postop day 11 following laparoscopic non fenestrated subtotal cholecystectomy. WBC count normalized today after SRAVAN drain removal yesterday. The erythema and swelling has extended slightly more today. There is no drainage from the SRAVAN drain site and no obvious abscess on exam. This area was marked and we will re- evaluate again tomorrow. Will discuss antimicrobial coverage with Dr. Chester. Continue Augmentin for now. (2) Bile leak, postoperative: Code(s): K91.89 - Other postprocedural complications and disorders of digestive system; K83.8 - Other specified diseases of biliary tract Status: Acute Assessment and Plan: Postop bile leak resolved following ERCP and stent placement. DS: Summary Time Spent with Patient Time attestation: Total time spent providing and/or coordinating discharge services: Exam Const: General: comfortable and no acute distress Orientation/consciousness: patient oriented x3 GI: Inspection: non-distended GI Palp: No Guarding due to palpation present (GI) and No Rebound tenderness present Auscultation: normal bowel sounds Other: Abdomen is nondistended and soft. Erythema and swelling of the RUQ near the SRAVAN drain site much improved today, no fluctuance, scant cloudy serous drainage at the drain site on the dressing. Tenderness in this area is much improved. No other tenderness throughout the abdomen. All other incisions healing well, dry and glue intact. Neuro: General: moves all extremities and no focal motor deficits Speech: normal speech Extrem: General: no calf tenderness and no edema Psych: Mental Status: mental status grossly normal Insight: Good insight present (Psych) DS: Data Data Completed and Pending Completed studies during hospitalization: Pending at discharge 07/31/24 18:15 Surgical [PTH] Routine Labs on day of discharge: Labs from last 24 hours 08/12/24 04:45 WBC 10.2 H RBC 3.07 L Hgb 8.7 L Hct 28.9 L MCV 94.1 MCH 28.3 MCHC 30.1 L RDW 15.1 H Plt Count 302 MPV 10.0 Immature Gran % (Auto) 0.6 H Neut % (Auto) 65.9 Lymph % (Auto) 22.5 [place] % (Auto) 7.6 Eos % (Auto) 3.1 Baso % (Auto) 0.3 Lymph # (Auto) 2.30 [place] # (Auto) 0.8 H Eos # (Auto) 0.3 Baso # (Auto) 0.0 Abs Immat Gran (auto) 0.06 H Absolute Neuts (auto) 6.7 Absolute Nucleated RBC 0.000 Nucleated RBC % 0.0 Sodium 136 L Potassium 4.0 Chloride 102 Carbon Dioxide 30 Anion Gap 4 BUN 8 Creatinine 0.46 L Estim Creat Clear Calc 60 Estimated GFR > 60 Glucose 97 Calcium 8.3 L Magnesium 1.9 Total Bilirubin 0.3 AST 48 H ALT 27 Alkaline Phosphatase 105 Total Protein 6.0 L Albumin 2.6 L Discharge Plan Discharge Attending physician on discharge: Caio Chester Consulting providers: Drea Cohen; [employer] Discharging Clinician: Meghana Meredith Anticipated Discharge Date/Time: 08/12/24 16:00 Patient Disposition: Home with Home Health Service Discharge Instructions: Per Care Coordination, patient to resume [facility]([phone]) for PT/OT and care home visits. Agency will call to resume when she is discharged. * Follow-up with GI as an outpatient for eventual stent removal in 2-[address] Lloyd's office to schedule your follow-up. * Change gauze dressing to the right side of your abdomen once daily. You may wash over this area daily with mild soap and water. * Low fat diet until 2 weeks postop, then advance as tolerated * pump servicer supervisor your antibiotics and take them as prescribed. If you develop fevers, increasing redness around your incision, or significant pus-like drainage from the incision, then call the surgeon. * Follow-up with Dr. Chester in our office next week. We will schedule the appointment and call you with time/date of the appointment. * You may resume your anticoagulation (apixaban or Eliquis) as of today. Patient Instructions: Antibiotic Form, Bladimir-Rodgers Drain Care (DC) Patient Language: Sri Lankan Stand Alone Forms: General Discharge Information Follow-up/Referrals: Milagros Haq MD [Primary Care Provider] - Follow Up with Primary Silver Al MD [Physician] - Call for Appointment Caio Chester MD [Physician] - Keep Reg. Scheduled Appt. Discharge Medications: New sulfamethoxazole-trimethoprim 800-160 mg Tablet 1 tab PO Q12HR Qty: 14 0RF amoxicillin-pot clavulanate 875-125 mg tablet 1 tablet PO Q12H Qty: 14 0RF Continued levothyroxine 25 mcg tablet 25 mcg PO DAILY Qty: 90 1RF (DME) egg crate mattress for chair See Rx Instructions .Route .MEDSUPPLY Qty: 1 0RF Rx Instructions: As directed (DME) chair lift See Rx Instructions .Route .MEDSUPPLY Qty: 1 0RF Rx Instructions: As directed gabapentin 100 mg capsule 200 mg PO BID cyanocobalamin (vitamin B-12) 2,500 mcg Tablet 2,500 mcg PO QAM Qty: 90 0RF nitroglycerin 0.4 mg tablet, sublingual 0.4 mg sublingual Q5M PRN (Reason: chest pain) acetaminophen 500 mg capsule 1,000 mg PO TID PRN (Reason: pain) amitriptyline 10 mg tablet 20 mg PO .HS metoprolol succinate [Toprol XL] 100 mg Tablet Extended Release 24 Hr 100 mg PO DAILY 30 Days Qty: 30 1RF tamsulosin 0.4 mg capsule 0.4 mg PO DAILY Qty: 30 0RF Eliquis 5 mg Tablet 5 mg PO Q12HR Qty: 60 0RF omeprazole 20 mg capsule,delayed release(DR/EC) 40 mg PO DAILY Qty: 180 2RF Rx Instructions: before breakfast ondansetron HCl 4 mg tablet See Rx Instructions .ROUTE .COMPLEX Qty: 40 0RF Dose Instruction: TAKE 1 TABLET BY MOUTH TWICE DAILY NEEDED FOR NAUSEA Rx Instructions: TAKE 1 TABLET BY MOUTH TWICE DAILY NEEDED FOR NAUSEA atorvastatin 40 mg tablet 40 mg PO DAILY Qty: 90 3RF No Action furosemide [Lasix] 40 mg tablet 40 mg PO BID 30 Days Qty: 60 0RF potassium chloride 20 mEq tablet,ER particles/crystals 40 meq PO DAILY Qty: 30 0RF Date of admission: 07/22/24 10:01 Primary Care Provider: Milagros Haq Admitting Provider: Caio Chester Attending physician on admission: Bren Armstrong Condition: Stable Quality VTE Prophylaxis VTE prophylaxis: mechanical ordered and pharmacologic ordered
--- NOTE | 2024-08-12 16:59 | P.PNIM_ITS ---
Progress Note: A&P Assessment and Plan (1) Acute cholecystitis: Code(s): K81.0 - Acute cholecystitis Status: Acute Assessment and Plan: * Cholecystostomy tube 07/23 in IR. * She is status post cholecystectomy 07/31/2024. * Augmentin 875-125 mg 1 tablet PO q 12. * GI consult. ERCP done 08/06 and stent successfully placed across biliary leak. Patient will need an ERCP again in 8-10 weeks to remove stent. * Low fat diet. * WBC 9.9, Lipase 19. (2) Essential hypertension: Code(s): I10 - Essential (primary) hypertension Status: Acute Assessment and Plan: * Metoprolol Succinate 100 mg PO QAM, home dose. * Blood pressure 127/83. (3) Coronary artery disease involving pilot station coronary artery of pilot station heart: Code(s): I25.10 - Atherosclerotic heart disease of pilot station coronary artery without angina pectoris Status: Acute Assessment and Plan: * Atorvastatin 40 mg PO QHS. (4) Severe protein-calorie malnutrition: Code(s): E43 - Unspecified severe protein-calorie malnutrition Status: Acute Assessment and Plan: * Protein 6.0. * Severe protein calorie malnutrition related to taste changes, poor appetite, nausea as evidenced by intakes <75% needs >1 month. Weight loss-15%/3 months: moderate fat loss, severe muscle wasting. * Ensure Enlive TID and Nutritional ice cream TID. * Cable Maker following. (5) Atrial fibrillation: Qualifiers: Atrial fibrillation type: unspecified Qualified Code(s): I48.91 - Unspecified atrial fibrillation Code(s): I48.91 - Unspecified atrial fibrillation Status: Acute Assessment and Plan: * Metoprolol Succinate 100 mg PO daily. * Lovenox 40 mg subq daily. * Telemetry. * Eliquis on hold until okayed by GI and surgery. (6) Hypothyroidism: Code(s): E03.9 - Hypothyroidism, unspecified Status: Acute Assessment and Plan: * Levothyroxine 25 mcg PO daily. (7) T12 compression fracture: Code(s): S22.080A - Wedge compression fracture of T11-T12 vertebra, initial encounter for closed fracture Status: Acute Assessment and Plan: * Patient is followed by pain management and to have kyphoplasty, patient was supposed to have this week but ended up hospitalized. * TLSO ordered. * PT/OT * No focal deficits no urinary fecal incontinence Subjective Date/time seen: 08/12/24 16:59 Interval history: Patient was seen and examined at bedside. she is feeling nauseated and has poor apatite. Patient denies chest pain, palpitations, headache, dizziness, nausea, or vomiting. Underwent laparoscopy cholecystectomy 07/31/24 Review of Systems Review of Systems: All systems reviewed & are unremarkable except as noted in HPI and below Exam Narrative: GENERAL: Pleasant, in no acute distress. Well-nourished. - EYES: EOMI. Anicteric. - HENT: Moist mucous membranes. - LUNGS: Clear to auscultation bilateral ly, no wheezing, rhonchi, or rales. - CARDIOVASCULAR: Regular rate and rhyth m. No murmur. No JVD. - ABDOMEN: Soft, non-tender and non-dist ended. No palpable masses. SRAVAN drain in place and dressing in the surgical site clean dry and intact - EXTREMITIES: No edema. Peripheral puls es 2+. Non-tender. - NEUROLOGIC: No focal neurological defi cits. CN II-XII grossly intact. - PSYCHIATRIC: Awake, Alert and oriented x 3. Appropriate mood and affect. - SKIN: No rashes or lesions. Warm. - LYMPH: No cervical lymphadenopathy. Const: General: comfortable, no acute distress and uncomfortable Other: A&O x3 HENMT: Mouth: Yes moist mucous membranes Eyes: Pupils: Equal, round and reactive pupils present Neck: Neck: supple Resp: Effort & Inspection: normal respiratory effort Auscultation: clear to auscultation bilaterally Cardio: Rate: regular rate and tachycardic Rhythm: regular rhythm Other: Telemetry- SR- 98. GI: Inspection: non-distended Auscultation: normal bowel sounds Other: increased erythema and swelling extended today around SRAVAN site. Neuro: Cranial nerves: Yes Equal, round and reactive pupils present Speech: normal speech Motor exam (neuro): 5/5 motor strength present throughout Extrem: General: no edema and no pedal edema Psych: Mental Status: mental status grossly normal Affect: normal affect Other: Drowsy off and on but answering appropriately. Objective Data Vital Signs Vital Signs: Vital Signs - 24 hr 08/11/24 20:00 08/11/24 20:00 08/11/24 21:00 Temperature 98.9 F Pulse Rate 95 92 Respiratory Rate 16 Blood Pressure 129/57 L Pulse Oximetry 97 Oxygen Delivery Room Air 08/12/24 00:00 08/12/24 04:00 08/12/24 05:31 Temperature 97.8 F Pulse Rate 83 78 82 Respiratory Rate 16 Blood Pressure 120/60 Pulse Oximetry 94 Oxygen Delivery 08/12/24 08:00 08/12/24 08:26 Temperature Pulse Rate 95 Respiratory Rate Blood Pressure Pulse Oximetry Oxygen Delivery Room Air Intake/Output Intake/Output: Intake & Output 08/09/24 08/10/24 08/11/24 08/12/24 23:59 23:59 23:59 23:59 Intake Total 1340 1280 336 100 Output Total 380 200 400 Balance 960 1280 136 -300 Meds/Results Medications: Active Medications Generic Name Dose Route Start Last Admin Trade Name Freq PRN Reason Stop Dose Admin Acetaminophen 1,000 mg 07/22/24 08:52 08/10/24 14:02 Acetaminophen 500 Mg Tablet PO 1,000 mg Q6H PRN Administration Mild Pain (1-3) or Fever Amitriptyline HCl 20 mg 07/21/24 21:15 08/11/24 22:14 Amitriptyline Hcl 10 Mg Tablet PO 20 mg QHS MELISSA Administration Amoxicillin/Clavulanate Potassium 1 tablet 08/02/24 21:00 08/12/24 08:26 Amoxicillin/Clavulanate K 875-125 Mg Tab PO 1 tablet Q12HR MELISSA Administration Atorvastatin Calcium 40 mg 07/21/24 21:15 08/11/24 22:15 Atorvastatin 40 Mg Tablet PO 40 mg QHS MELISSA Administration Cyanocobalamin 500 mcg 07/22/24 09:00 08/12/24 08:26 Cyanocobalamin 500 Mcg Tablet PO 500 mcg QAM MELISSA Administration Cyanocobalamin 2,000 mcg 07/22/24 09:00 08/12/24 08:26 Cyanocobalamin 1,000 Mcg Tablet PO 2,000 mcg QAM MELISSA Administration Enoxaparin Sodium 40 mg 08/01/24 09:00 08/12/24 08:27 Enoxaparin 40 Mg/0.4 Ml Syringe SUB-Q 40 mg DAILY MELISSA Administration Gabapentin 200 mg 07/22/24 09:00 08/12/24 08:26 Gabapentin 100 Mg Capsule PO 200 mg BID MELISSA Administration Levothyroxine Sodium 25 mcg 07/22/24 06:30 08/12/24 05:03 Levothyroxine Sodium 25 Mcg Tablet PO 25 mcg DAILY@0630 MELISSA Administration Metoprolol Succinate 100 mg 08/08/24 09:00 08/12/24 08:26 Metoprolol Succinate Ext Rel 100 Mg Tabcr PO 100 mg QAM MELISSA Administration Ondansetron HCl 4 mg 07/22/24 08:52 08/12/24 10:36 Ondansetron Inj 4 Mg/2 Ml Vial IV PUSH 4 mg Q6H PRN Administration Nausea And Vomiting Ondansetron HCl 4 mg 08/05/24 12:23 08/05/24 12:38 Ondansetron Hcl Odt 4 Mg Tablet PO 4 mg Q6H PRN Administration Nausea And Vomiting Pantoprazole Sodium 40 mg 07/22/24 09:00 08/12/24 08:27 Pantoprazole 40 Mg Tablet PO 40 mg QAM MELISSA Administration Tamsulosin HCl 0.4 mg 07/22/24 09:00 08/12/24 08:27 Tamsulosin Hcl 0.4 Mg Capsule PO 0.4 mg DAILY MELISSA Administration Trimethoprim/Sulfamethoxazole 1 tab 08/11/24 21:00 08/12/24 08:26 Sulfamethoxazole/Trimethoprim 800/160 Mg Ds Tablet PO 1 tab Q12HR MELISSA Administration Radiology Results: ITS Impressions Abdomen/Pelvis CT 07/22/24 08:52 Impression: Percutaneous cholecystostomy tube in place with distended irregular gallbladder with marked irregular wall thickening and pericholecystic infarct or change, compatible with acute cholecystitis. Fluid-filled tract communicating with the gallbladder lumen at the superior aspect, which represents a tract related to prior cholecystostomy tube placement, with extension into the anterior abdominal wall. Additional suspected area of contained perforation at the inferior aspect of the gallbladder, which is new from prior exam. Acute L1 compression fracture, new from prior exam. Worsening T12 compression fracture as compared to prior exam with progressive loss of height. Cholecystostomy 07/23/24 14:08 IMPRESSION: 1. Successful upsizing to 12 Vietnamese of a right upper quadrant percutaneous cholecystostomy tube. 2. Patent cystic and common bile ducts. Chest X-Ray 08/04/24 13:43 IMPRESSION: Bibasilar atelectasis versus with left pleural effusion. Head CT 08/08/24 13:23 IMPRESSION: 1. Stable age-related changes including mild to moderate diffuse volume loss and moderate scattered white matter hypoattenuation consistent with chronic small vessel ischemic disease. Labs Labs: Laboratory Results - last 24 hr 08/12/24 04:45 WBC 10.2 H RBC 3.07 L Hgb 8.7 L Hct 28.9 L MCV 94.1 MCH 28.3 MCHC 30.1 L RDW 15.1 H Plt Count 302 MPV 10.0 Immature Gran % (Auto) 0.6 H Neut % (Auto) 65.9 Lymph % (Auto) 22.5 Ashley % (Auto) 7.6 Eos % (Auto) 3.1 Baso % (Auto) 0.3 Lymph # (Auto) 2.30 Ashley # (Auto) 0.8 H Eos # (Auto) 0.3 Baso # (Auto) 0.0 Abs Immat Gran (auto) 0.06 H Absolute Neuts (auto) 6.7 Absolute Nucleated RBC 0.000 Nucleated RBC % 0.0 Sodium 136 L Potassium 4.0 Chloride 102 Carbon Dioxide 30 Anion Gap 4 BUN 8 Creatinine 0.46 L Estim Creat Clear Calc 60 Estimated GFR > 60 Glucose 97 Calcium 8.3 L Magnesium 1.9 Total Bilirubin 0.3 AST 48 H ALT 27 Alkaline Phosphatase 105 Total Protein 6.0 L Albumin 2.6 L Quality VTE Prophylaxis VTE prophylaxis: mechanical ordered and pharmacologic ordered
--- NOTE | 2024-08-12 17:38 | P.DS_ITS ---
DS: Admitting Diagnosis Discharge Date 08/12/24 Admitting Diagnosis acute cholecystitis DS: Discharge Diagnosis Discharge Diagnosis (1) Acute cholecystitis: Code(s): K81.0 - Acute cholecystitis Status: Acute Assessment and Plan: * Cholecystostomy tube 07/23 in IR. * She is status post cholecystectomy 07/31/2024. * Augmentin 875-125 mg 1 tablet PO q 12. * GI consult. ERCP done 08/06 and stent successfully placed across biliary leak. Patient will need an ERCP again in 8-10 weeks to remove stent. * Low fat diet. (2) Essential hypertension: Code(s): I10 - Essential (primary) hypertension Status: Acute Assessment and Plan: * Metoprolol Succinate 100 mg PO QAM, home dose. * Blood pressure 127/83. (3) Coronary artery disease involving jackson coronary artery of jackson heart: Code(s): I25.10 - Atherosclerotic heart disease of jackson coronary artery without angina pectoris Status: Acute Assessment and Plan: * Atorvastatin 40 mg PO QHS. (4) Severe protein-calorie malnutrition: Code(s): E43 - Unspecified severe protein-calorie malnutrition Status: Acute Assessment and Plan: * Protein 6.0. * Severe protein calorie malnutrition related to taste changes, poor appetite, nausea as evidenced by intakes <75% needs >1 month. Weight loss-15%/3 months: moderate fat loss, severe muscle wasting. * Ensure Enlive TID and Nutritional ice cream TID. * Gynecologist following. (5) Atrial fibrillation: Qualifiers: Atrial fibrillation type: unspecified Qualified Code(s): I48.91 - Unspecified atrial fibrillation Code(s): I48.91 - Unspecified atrial fibrillation Status: Acute Assessment and Plan: * Metoprolol Succinate 100 mg PO daily. * Lovenox 40 mg subq daily. * Telemetry. * Eliquis (6) Hypothyroidism: Code(s): E03.9 - Hypothyroidism, unspecified Status: Acute Assessment and Plan: * Levothyroxine 25 mcg PO daily. (7) T12 compression fracture: Code(s): S22.080A - Wedge compression fracture of T11-T12 vertebra, initial encounter for closed fracture Status: Acute Assessment and Plan: * Patient is followed by pain management and to have kyphoplasty, patient was supposed to have this week but ended up hospitalized. * TLSO . * PT/OT * No focal deficits no urinary fecal incontinence DS: Summary Hospital Course Hospital Course: per HPi:' This is a pleasant 84-year-old female with a past medical history CAD, arthritis, prediabetes, paroxysmal atrial fibrillation, GERD, hypothyroidism, hyperlipidemia, vitamin B12 and vitamin D deficiency. Surgical history includes history of appendectomy, hysterectomy, and in 05/2024 she was hospitalized for acute cholecystitis and treated with IV antibiotics and pe rcutaneous cholecystostomy tube placement. She was deemed a poor surgical candidate. She was readmitted in 05/2024 with a dislodged cholecystostomy tube and evidence of acute cholecystitis. She was again treated with IV antibiotics and her cholecystostomy tube was replaced. Since then she has been at home and doing relatively well. On 07/20/2024 the daughter noted purulent drainage from the 2 and so she followed up with Dr. Chester today on the day of admission 07/21/2024 in the office. Then, admitted to [facility] once again. Patient has had poor appetite. 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 Denies any abdominal pain or other complaints but voices her frustration with the tube. Of note, the patient had a kyphoplasty planned this week and her Eliquis has been held on Saturday due to burst fracture of T12/T1. She has also lost about 26 lb in the recent months. Hospitalist team has been consulted to help manage multiple medical comorbidities in the setting of anticipated procedure and infection. ----- Pending CT scan abdomen pelvis with surgery. Replacement of her tube may be necessary. Continue Zosyn. Considering weight loss, will have dietitian evaluate and give recommendations. Postop, consult PT OT if okay from spine surgery. Blood pressure currently acceptable. Will hold her COMPUTER SECURITY COORDINATOR Lasix and potassium. Beta-blockers recommended to continue perioperatively however will decrease her dose from metoprolol 100 mg p.o. q.day to metoprolol tartrate 25 mg p.o. b.i.d. for now. Telemetry ordered, she is high risk for arrhythmias. Continue to trend daily electrolytes. As for Eliquis, continue to hold although consider restarting or even bridging if approaching the 4 day blanca without anticoagulation. Agree the kyphoplasty should be put on hold considering the purulent drainage. 08/12/24 Patient underwent cholecystostomy tube placement on 07/23. Continued to have persistent rash. Has been on Augmentin for possible cholangitis. Underwent cholecystectomy on 07/31/2024. GI team was consulted and patient underwent ERCP on 08/06/2024. Patient has poor appetite. Dietitian has been consulted. Patient taking Ensure t.i.d. Patient has T11-12 patient compression fracture. Needs to follow with kyphoplasty as outpatient. Continue with TLSO, PT/OT Patient is feeling better this afternoon. Eating more. Patient and her family asking to discharge patient today. Discussed with surgery team. Patient can follow-up outpatient. Patient is to follow-up with GI clinic in 6-8 weeks for repeat ERCP and stent removal Status at Discharge Overall status at discharge: patient is back to baseline Time Spent with Patient Time attestation: Total time spent providing and/or coordinating discharge services: Time spent: Greater than 30 minutes Exam 2 Narrative: GENERAL: Pleasant, in no acute distress. Well-nourished. - EYES: EOMI. Anicteric. - HENT: Moist mucous membranes. - LUNGS: Clear to auscultation bilateral ly, no wheezing, rhonchi, or rales. - CARDIOVASCULAR: Regular rate and rhyth m. No murmur. No JVD. - ABDOMEN: Soft, non-tender and non-dist ended. No palpable masses. - EXTREMITIES: No edema. Peripheral puls es 2+. Non-tender. - NEUROLOGIC: No focal neurological defi cits. CN II-XII grossly intact. - PSYCHIATRIC: Awake, Alert and oriented x 3. Appropriate mood and affect. - SKIN: No rashes or lesions. Warm. - LYMPH: No cervical lymphadenopathy. Const: General: comfortable, no acute distress and uncomfortable Other: A&O x3 HENMT: Mouth: Yes moist mucous membranes Eyes: Pupils: Equal, round and reactive pupils present Neck: Neck: supple Resp: Effort & Inspection: normal respiratory effort Auscultation: clear to auscultation bilaterally Cardio: Rate: regular rate and tachycardic Rhythm: regular rhythm Other: Telemetry- SR- 98. GI: Inspection: non-distended Auscultation: normal bowel sounds Neuro: Cranial nerves: Yes Equal, round and reactive pupils present Speech: normal speech Motor exam (neuro): 5/5 motor strength present throughout Extrem: General: no edema and no pedal edema Psych: Mental Status: mental status grossly normal Affect: normal affect Other: Drowsy off and on but answering appropriately. DS: Data Data Completed and Pending Completed studies during hospitalization: Pending at discharge 07/31/24 18:15 Surgical [PTH] Routine Labs on day of discharge: Labs from last 24 hours 08/12/24 04:45 WBC 10.2 H RBC 3.07 L Hgb 8.7 L Hct 28.9 L MCV 94.1 MCH 28.3 MCHC 30.1 L RDW 15.1 H Plt Count 302 MPV 10.0 Immature Gran % (Auto) 0.6 H Neut % (Auto) 65.9 Lymph % (Auto) 22.5 [place] % (Auto) 7.6 Eos % (Auto) 3.1 Baso % (Auto) 0.3 Lymph # (Auto) 2.30 [place] # (Auto) 0.8 H Eos # (Auto) 0.3 Baso # (Auto) 0.0 Abs Immat Gran (auto) 0.06 H Absolute Neuts (auto) 6.7 Absolute Nucleated RBC 0.000 Nucleated RBC % 0.0 Sodium 136 L Potassium 4.0 Chloride 102 Carbon Dioxide 30 Anion Gap 4 BUN 8 Creatinine 0.46 L Estim Creat Clear Calc 60 Estimated GFR > 60 Glucose 97 Calcium 8.3 L Magnesium 1.9 Total Bilirubin 0.3 AST 48 H ALT 27 Alkaline Phosphatase 105 Total Protein 6.0 L Albumin 2.6 L Discharge Plan Discharge Attending physician on discharge: Caio Chester Consulting providers: Drea Cohen; [employer] Discharging Clinician: Meghana Meredith Anticipated Discharge Date/Time: 08/12/24 16:00 Patient Disposition: Home with Home Health Service Activity: as tolerated Diet: as tolerated Discharge Instructions: Per Care Coordination, patient to resume [facility]([phone]) for PT/OT and [facility] visits. Agency will call to resume when she is discharged. * Follow-up with GI as an outpatient for eventual stent removal in 2-[address] Lloyd's office to schedule your follow-up. * Change gauze dressing to the right side of your abdomen once daily. You may wash over this area daily with mild soap and water. * Low fat diet until 2 weeks postop, then advance as tolerated * superintendent house your antibiotics and take them as prescribed. If you develop fevers, increasing redness around your incision, or significant pus-like drainage from the incision, then call the surgeon. * Follow-up with Dr. Chester in our office next week. We will schedule the appointment and call you with time/date of the appointment. * You may resume your anticoagulation (apixaban or Eliquis) as of today. Patient Instructions: Antibiotic Form, Bladimir-Rodgers Drain Care (DC) Patient Language: Polish Stand Alone Forms: General Discharge Information Follow-up/Referrals: Milagros Haq MD [Primary Care Provider] - Follow Up with Primary Silver Al MD [Physician] - Call for Appointment Caio Chester MD [Physician] - Keep Reg. Scheduled Appt. Discharge Medications: New sulfamethoxazole-trimethoprim 800-160 mg Tablet 1 tab PO Q12HR Qty: 14 0RF amoxicillin-pot clavulanate 875-125 mg tablet 1 tablet PO Q12H Qty: 14 0RF Continued levothyroxine 25 mcg tablet 25 mcg PO DAILY Qty: 90 1RF (DME) egg crate mattress for chair See Rx Instructions .Route .MEDSUPPLY Qty: 1 0RF Rx Instructions: As directed (DME) chair lift See Rx Instructions .Route .MEDSUPPLY Qty: 1 0RF Rx Instructions: As directed gabapentin 100 mg capsule 200 mg PO BID cyanocobalamin (vitamin B-12) 2,500 mcg Tablet 2,500 mcg PO QAM Qty: 90 0RF nitroglycerin 0.4 mg tablet, sublingual 0.4 mg sublingual Q5M PRN (Reason: chest pain) acetaminophen 500 mg capsule 1,000 mg PO TID PRN (Reason: pain) amitriptyline 10 mg tablet 20 mg PO .HS metoprolol succinate [Toprol XL] 100 mg Tablet Extended Release 24 Hr 100 mg PO DAILY 30 Days Qty: 30 1RF tamsulosin 0.4 mg capsule 0.4 mg PO DAILY Qty: 30 0RF Eliquis 5 mg Tablet 5 mg PO Q12HR Qty: 60 0RF omeprazole 20 mg capsule,delayed release(DR/EC) 40 mg PO DAILY Qty: 180 2RF Rx Instructions: before breakfast ondansetron HCl 4 mg tablet See Rx Instructions .ROUTE .COMPLEX Qty: 40 0RF Dose Instruction: TAKE 1 TABLET BY MOUTH TWICE DAILY NEEDED FOR NAUSEA Rx Instructions: TAKE 1 TABLET BY MOUTH TWICE DAILY NEEDED FOR NAUSEA atorvastatin 40 mg tablet 40 mg PO DAILY Qty: 90 3RF No Action furosemide [Lasix] 40 mg tablet 40 mg PO BID 30 Days Qty: 60 0RF potassium chloride 20 mEq tablet,ER particles/crystals 40 meq PO DAILY Qty: 30 0RF Date of admission: 07/22/24 10:01 Primary Care Provider: Milagros Haq Admitting Provider: Caio Chester Attending physician on admission: Bren Armstrong Condition: Stable Quality VTE Prophylaxis VTE prophylaxis: mechanical ordered and pharmacologic ordered
== END 2024-08-12 18:20 | disposition home health service (06) | DRG 417 ==
PROVIDERS: General Practice; Internal Medicine; Internal Medicine Gastroenterology; Nurse Practitioner Family; Admitting Provider Surgery; PCP Family Medicine; Visit Provider Internal Medicine
PROC: 0FT44ZZ Resection of Gallbladder, Percutaneous Endoscopic Approach (ICD-10-PCS; CPT 47562; principal; 2024-07-30 11:00)
PROC: 0F798DZ Dilation of Common Bile Duct with Intraluminal Device, Via Natural or Artificial Opening Endoscopic (ICD-10-PCS; CPT 43260; principal; 2024-08-06 13:15)
DX: K80.00 Calculus of gallbladder with acute cholecystitis without obstruction (principal); E43 Unspecified severe protein-calorie malnutrition; K83.2 Perforation of bile duct; I48.20 Chronic atrial fibrillation, unspecified; K91.89 Other postprocedural complications and disorders of digestive system; S22.080A Wedge compression fracture of T11-T12 vertebra, initial encounter for closed fracture; K82.A2 Perforation of gallbladder in cholecystitis; K82.A1 Gangrene of gallbladder in cholecystitis; R62.7 Adult failure to thrive; Z68.26 Body mass index [BMI] 26.0-26.9, adult; I25.10 Atherosclerotic heart disease of native coronary artery without angina pectoris; M19.90 Unspecified osteoarthritis, unspecified site; K21.9 Gastro-esophageal reflux disease without esophagitis; E03.9 Hypothyroidism, unspecified; E87.6 Hypokalemia; E78.5 Hyperlipidemia, unspecified; I10 Essential (primary) hypertension; E83.42 Hypomagnesemia; D50.9 Iron deficiency anemia, unspecified; E53.8 Deficiency of other specified B group vitamins; R73.03 Prediabetes; Z90.49 Acquired absence of other specified parts of digestive tract; Z90.710 Acquired absence of both cervix and uterus; Z79.01 Long term (current) use of anticoagulants
CPT/HCPCS: 36415; 47490; 70450; 71045; 74177; 74329; 80053; 81001; 82948; 83036; 83690; 83735; 85025; 85027; 85610; 85730; 86850; 86900; 86901; 88304; 97110; 97116; 97161; 97165; 97166; 97530; 97535; A9270; C1729; C1876; G0378; G0379; J0330; J1100; J1650; J1885; J2003; J2004; J2270; J2405; J2470; J2543; J2704; J3010; J3475; J7030; J7120; Q9966; Q9967

== ENCOUNTER 2024-08-19 00:29 | Day surgery (SDC) | payer MEDICARE, SELFPAY ==
[2024-08-18 13:25] VITALS: BMI 26.2
--- OUTSIDE RECORDS SUMMARY | 2024-08-19 00:33 | XMS_ITS | Clinical Summary ---
Author Organization [facility] [place] Address [address] [place] [address] Phone Care Team Providers Care Cutter Finisher Name Role Phone Milagros Haq MD Primary Care Provider [phone] Allergies Active Allergy Reactions Criticality Noted Date [...] 9 Active nitroglycerin (NITROMIST) 400 mcg/spray Aerosol, [place] place 1 spray by translingual route onto [...] MD (General) Referring Provider: Milagros Haq MD [address] [place] [address] Other: Problem Noted Date Diagnosed Date Inversion [...] 2013 INFLUENZA VACCINE (#1) [address] [place] [address] MEDICARE Nicholas Haddox Records [facility] [address] [place] [address] Care Teams Cutter Finisher Relationship Specialty Start Date End Date Milagros Haq MD [address] [place] [id number] PCP - General Family Practice 07/18/12
--- OUTSIDE RECORDS SUMMARY | 2024-08-19 00:33 | XMS_ITS | Continuity of Care Document ---
Author Organization [employer] Address [address] [place] [address] Phone Care Team Providers Care Logistics Account Manager Name Role Phone Conversion MD, Doctor Unavailable [...] Diagnoses Date Provider Providers Copied on Encounter [facility], [address], [place], [place], [address] , tel: [phone] [facility] No Information 1 Conversion Doctor. [address] [facility], [place], [address], . [email or web address] [facility], [address], [place], [place], [address] , tel: [phone] [facility] PERIPHERAL VERTIGO NOSDIZZINESS AND GIDDINESS 3 Conversion Doctor. [address] [facility], [place], [address], [place]. [facility], [address], [place], [place], [address] , tel: [phone] [facility] DIFFUS CYSTIC MASTOPATHYCHRONIC BRONCHITIS NOS 3 Matt Bonilla. [address] [facility], [address], [place], [place], [address]. tel: [phone] [facility], [address], [place], [place], [address] , tel: [phone] [facility] COUGHMIXED HYPERLIPIDEMIA 3 Matt Bonilla. [address] [facility], [address], [place], [address]. tel: [phone] [facility], [address], [place], [place], [address] , tel: [phone] [facility] CHRONIC SINUSITIS NOS 3 Matt Bonilla. [address] [facility], [address], [place], [address]. tel: [phone] [facility], [address], [place], [place], [address] , [place] tel: [phone] [facility] JOINT PAIN-UNSPEC 2 Matt Bonilla. [address] [facility], [address], [place], [place], [address]. tel:[phone] [employer], [address], [place], [place], [address] , [place] tel: [phone] [facility] MASTODYNIA Apr-2 9-200 2 Matt Bonilla. [address] [facility], [address], [place], [place], [address]. tel: [phone] [email or web address], [address], [place], [place], [address] , [place] tel: [phone] [facility] OSTEOPOROSIS NOS Mar- 1-200 2 Matt Irene. [address] [facility], [address], [place], [place], [address]. tel: [phone] [email or web address] [facility], [address], [place], [place], [address] , [place] tel: [phone] [facility] ESOPHAGEAL REFLUX Sep- 0-200 1 Matt Bonilla. [address] [facility], [address], [place], [place], [address]. tel: [phone] [facility], [address], [place], [place], [address] , [place] tel: [phone] [facility] MYALGIA AND MYOSITIS NOSSCREEN MAL NEOP-CERVIX Sep- 7-200 1 Matt Bonilla. [address] [facility], [address], [place], [place], [address]. tel: [phone] [email or web address], [address], [place], [place], [address] , [place] tel: [phone] [facility] NONSPECIF SKIN ERUPT NEC July- 0-200 1 Matt Bonilla. [address] [facility], [address], [place], [place], [address]. tel: [phone] [facility], [address], [place], [place], [address] , [place] tel:[phone] [facility] ABN PAP SMEAR-OTH SITE Jose-2 2-200 0 Matt Bonilla. [address] [facility], [address], [place], [place], [address]. tel:[phone] [facility], [address], [place], [place], [address] , tel: [phone] [facility] BACKACHE NOSMENOPAUSAL DISORDER NOS 0-200 0 Matt Bonilla. [address] [facility], [address], [place], [place], [address]. tel:[phone] [facility], [address], [place], [place], [address] , tel: [phone] [facility] ABNORMAL WEIGHT GAINROUTINE MEDICAL EXAMALLERGY, UNSPECIFIED 3-200 0 Matt Bonilla. [address] [facility], [address], [place], [place], [address]. tel:[phone] Family History Family Member Type Diagnosis Age [...]
--- OUTSIDE RECORDS SUMMARY | 2024-08-19 00:33 | XMS_ITS | Continuity of Care Document ---
Author Organization [facility] Address [address] [place] [address] [place] [address] Phone Care Team Providers Care Mine Expert Name Role Phone [facility] [employer] Unavailable Unavail able Deysi Scherer Unavailable Unavailable Advance Directives Directive Yes / No Effective Date File Name No Information Encounters Encounter Description Practice Location Reason(s) For Visit Diagnoses Date Provider Providers Copied on Encounter [facility], [address] [place] [address] [address], [place], [place], [address], [place] tel:[phone] [facility] No Information 200 2 [facility] [employer] [address] [facility], [address], [place], [place], [address] , [place]. tel:[phone] Consulting Provider: Deysi Scherer, [address] [place] [address], [place], [address]. tel:[phone] Family History Family Member Type Diagnosis Age [...]
--- OUTSIDE RECORDS SUMMARY | 2024-08-19 00:33 | XMS_ITS ---
Author Name Auto Generated, Auto Generated Organization [facility] [employer] Address [address] [place] [address] Phone [phone] Care Team Providers Care Tester Rocket Engine Name Role Phone May Carrillo Unavailable AaliyahDiana fagan Unavailable Functional Status No Results Mental Status No Results Allergies and Intolerances Name Onset Date Reaction Severity hydrocodone (Allergy) Rosa M Jan 10 19:57:00 EDT 20 23 levofloxacin (Allergy) SatJan 10 19:57:00 EDT 2 023 alendronate sodium (Allergy) SatJan 10 19:56:00 EDT 2022 Encounters Program Name Primary Diagnosis Admission Date/Time Dis charge Date/Time Assisted Care Facility [facility] SatMay [...] Day Indication: 75cc/hr SatMay 31 19:00:00 EST 2024 Mon Jun 01 18:59:00 EST 2024 furosemide 40 mg [...] Hours Indication: pain SatMay 28 13:00:00 EST 2024May 30 01:04:00 EST 2024 calcitonin (salmon) 200 unit/actuation nasal spray 2 sprays AEROSOL, SPRAY WITH PUMP (ML) Intranasal - Both Nostrils 3 Times Daily for 14 Days Indication: allergies SatMay 28 13:00:00 EST 2024b 15:40:00 EST 2024 calcitonin (salmon) 200 unit/actuation nasal spray 1 spray AEROSOL, SPRAY WITH PUMP (ML) Intranasal 3 Times Daily for 14 Days Indication: osteoporosis spray in 1 nostril and rotate nostril used SatMay 28 15:38:00 EST 2024b 17:01:00 EST 2024 calcitonin (salmon) 200 unit/actuation nasal spray 1 spray AEROSOL, SPRAY WITH PUMP (ML) Intranasal 1 Time Daily for 14 Days Indication: osteoporosis spray in 1 nostril and rotate nostril used SatMay 28 17:00:00 EST 2024 13 16:59:00 EDT 2024 potassium chloride ER 20 [...] Hours Indication: muscle spasms SatMay 19 13:00:00 EST 2024 24 11:45:00 EST 2024 lidocaine 5 % topical patch 1 patch ADHE SIVE PATCH, MEDICATED Topical PRN Every 8 Hours Indication: pain SatMay 19 13:00:00 EST 2024Jun 12 01:00:00 EDT 2024 tamsulosin 0.4 mg capsule 0.4 mg CAPSULE Oral 1 Time Daily Indication: urination SatMay 12 13:00:00 EST 2024May 19 10:36:00 EST 2024 Abreva 10 % topical cream 1 application CREAM (GRAM) Topical 1 Time Daily for 3 Days Indication: cold sore 1 application to lower lip sore QD for 3 days or until healed. Okay to leave at bedside and self apply. SatMay 12 13:00:00 EST 2024May 15 12:59:00 EST 2024 amoxicillin 875 mg-potassium clavulanate 125 mg tablet 1 TABLET TABLET Oral 2 Times Daily for 15 Days Indication: Cholecystitis SatMay 11 16:00:00 EST 2024May 26 15:59:00 EST 2024 ipratropium 0.5 [...] GERDBefore breakfast SatMay 11 17:00:00 EST 2024Jun 12:00:00 EDT 2024 ondansetron HCL 4 mg tablet [...] lower back SatFeb 04 10:52:00 EST 2022Feb 06 01:00: EST 2022 acetaminophen 325 mg tablet 2 tabs TABLE T Oral PRN Every 6 Hours Indication: pain SatJan 11 14:11:00 2022Feb 06 01:00:00 EST 2022 isosorbide mononitrate ER 60 mg tablet,extended release 24 hr 1 TAB TABLET, EXTENDED RELEASE 24 HR Oral 1 Time Daily Indication: Chest pain SatJan 10 20:00:00 2022Feb 06 01:00:00 EST 2022 Xarelto 10 mg tablet 1 TAB TABLET Oral 1 Time Daily Indication: Blood thinner SatJan 10 20:00:00 2022Feb 06 01:00:00 EST 2022 cyanocobalamin (vitamin B-12 ) 2,500 mcg tablet 2500 MCG TABLET Oral 1 Time Daily Indication: SUPPLEMENT SatJan 10 20:00:00 2022Feb 06 01:00:00 EST 2022 ranolazine ER 1,000 mg tablet,extended release,12 hr 1000 MG TABLET, EXTENDED RELEASE 12 HR Oral Every 12 Hours Indication: Angina SatJan 11 07:00:00 2022Feb 06 01:00:00 EST 2022 omeprazole 20 mg capsule,delayed release 20 MG CAPSULE,DELAYED RELEASE (ENTERIC COATED) Oral 1 Time Daily Indication: GERD. Take daily before breakfast. SatJan 10 20:00:00 2022Feb 06 01:00:00 EST [...] 2022 * End Date: * Text: * coat agent (current) use of anticoagulants* Code: * Start [...] * Text: * Atherosclerotic heart disease of [place] coronary artery with other forms of angina [...] 2024 * End Date: * Text: * [id number] Maude receiving mechanically altered diet. (12)* Code: * Start Date: SatMay 19 00:00:00 EST 2024 * End Date: * Text: [id number] Maude receiving mechanically altered diet. (12) * [...] 00:00:00 2024 * End Date: * Text: LSS_Falls - Maude is at risk for falls/injury as evidenced by: history of falls, cognitive status/behavior, vision status, continence, mobility, balance. * LSS_Skin Integrity - Maude has alteration in skin integrity. 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* Code: * [...] temperature 97.30 [degF] SatJun 12 10:5 3:11 EDT 2024 Respiratory rate 20.00 /min SatJun 12 10:5 3:11 ED2024 Pulse Oximetry 96.00 % SatJun 12 10:53 :11 EDT 2024 Systolic Blood Pressure 140.00 mm[Hg] SatJun 12 09:32:53 EDT 2024 Diastolic Blood Pressure 78.00 [...] 8:55 EDT 2024 Pulse Oximetry 94.00 % Rosa Mmay 13 09:48 :55 EDT 2024 Systolic Blood [...] EDT 2024 Heart Rate 84.00 /min Rosa Mmay 13 00:15 :26 EDT 2024 Body temperature 98.10 [degF] Rosa Mmay 13 00:1 5:26 EDT 2024 Respiratory rate 16.00 /min Rosa Mmay 13 00:1 5:26 EDT 2024 Pulse Oximetry [...] % SatJun 09 18:05 :59 EDT 2024 Body weight 176.60 [lb_av] SatJun 09 17:55 :10 EDT 2025 Systolic Blood Pressure 141.00 mm[Hg] SatJun 08 23:07:50 EDT 5 Diastolic Blood Pressure 63.00 mm[Hg] SatJun 08 23:07:50 EDT 5 Heart Rate 80.00 /min SatJun 08 23:07 :50 EDT 5 Body temperature 98.00 [degF] SatJun 08 23:0 7:50 EDT 5 Respiratory rate 18.00 /min SatJun 08 23:0 [...] Pressure 71.00 mm[Hg] SatJun 08 01:08:22 EDT 5 Heart Rate 79.00 /min SatJun 08 01:08 :22 EDT 2024 Body temperature 97.50 [degF] SatJun 08 01:0 8:22 EDT 2024 Respiratory rate 16.00 /min SatJun 08 01:0 8:22 EDT 2024 Pulse Oximetry 96.00 % SatJun 08 01:08 :22 EDT 2024 Systolic Blood Pressure 166.00 mm[Hg] SatJun 07 18:24:52 EDT 2024 Diastolic Blood Pressure 78.00 mm[Hg] SatJun 07 18:24:52 EDT 2025 Body weight 175.30 [lb_av] Sun Mar 18:24 :52 EDT 2024 Heart Rate 79.00 /min Sun Mar 18:24 :52 EDT 2024 Body temperature 97.70 [degF] Sun Jun 07 18:2 4:52 EDT 2024 Respiratory rate 20.00 /min Sun Mar 18:2 4:52 EDT 2024 Pulse Oximetry 98.00 % Sun Jun 07 18:24 :52 EDT 2024 Systolic Blood Pressure 166.00 mm[Hg] Sun Mar 10:47:49 EDT 2024 Diastolic Blood Pressure 78.00 mm[Hg] Sun Mar 10:47:49 EDT 2024 Heart Rate 79.00 /min Sun Mar 10:47 :49 EDT 2024 Systolic Blood Pressure 129.00 mm[Hg] Sat Mar 08 23:42:57 EST 2024 Diastolic Blood Pressure 67.00 mm[Hg] Sat May 08 23:42:57 EST 2024 Heart Rate 78.00 /min Sat Jun 06 23:42 :57 EST 2024 Body temperature 97.50 [degF] Sat Mar 08 23:4 2:57 EST 2024 Respiratory rate 18.00 /min Sat Mar 08 23:4 2:57 EST 2024 Pulse Oximetry 95.00 % Sat Mar 08 23:42 :57 EST 2024 Body weight 174.90 [lb_av] Sat May 08 15:57 :03 EST 2024 Systolic Blood Pressure 146.00 mm[Hg] Sat May 08 10:54:56 EST 2024 Diastolic Blood Pressure 84.00 mm[Hg] Sat May 08 10:54:56 EST 5 Heart Rate 76.00 /min Sat May 08 10:54 :56 EST 5 Body temperature 97.50 [degF] Sat May 08 10:5 4:56 EST 2024 Respiratory rate 20.00 /min Sat Mar 08 10:5 4:56 EST 2024 Pulse Oximetry 95.00 % Sat May 08 10:54 :56 EST 2024 Systolic Blood Pressure 146.00 mm[Hg] Sat Mar 08 09:40:02 EST 2024 Diastolic Blood Pressure 84.00 mm[Hg] Sat Mar 08 09:40:02 EST 2024 Heart Rate 76.00 /min Sat Mar 08 09:40 :02 EST 2024 Systolic Blood Pressure 139.00 mm[Hg] Sat Mar 08 01:03:16 EST 2024 Diastolic Blood Pressure 80.00 mm[Hg] Sat 08 01:03:16 EST 2024 Heart Rate 74.00 /min Sat 08 01:03 :16 EST 2024 Body temperature 97.80 [degF] Sat 08 01:0 3:16 EST 2024 Respiratory rate 18.00 /min Sat 08 01:0 3:16 EST 2024 Pulse Oximetry 98.00 [...] 69.00 mm[Hg] SatJun 04 09:05:33 EST 2024 Heart Rate 84.00 /min SatJun 04 09:05 :33 EST 2024 Heart Rate 84.00 /min SatJun 04 09:05 :33 EST 2024 Body temperature 97.60 [...] 69.00 mm[Hg] SatJun 01 10:03:14 EST 2024 Heart Rate 79.00 /min SatJun 01 10:03 :14 EST 2024 Heart Rate 79.00 /min SatJun 01 10:03 :14 EST 2024 Body temperature 98.20 [degF] SatJun 01 10:0 3:14 EST 2024 Respiratory rate 18.00 /min SatJun 01 10:0 3:14 EST 2024 Pulse Oximetry 96.00 % SatJun 01 10:03 :14 EST 2024 Systolic Blood Pressure 137.00 mm[Hg] Sun May 31 23:07:31 EST 2024 Diastolic Blood Pressure 61.00 mm[Hg] Sun May 31 23:07:31 EST 2024 Heart Rate 72.00 /min SatMay 31 23:07 :31 EST 2024 Body temperature 97.60 [degF] SatMay 31 23:0 7:31 EST 2024 Respiratory rate 18.00 /min SatMay 31 23:0 7:31 EST 2024 Pulse Oximetry 99.00 % SatMay 31 23:07 :31 EST 2024 Systolic Blood Pressure 137.00 mm[Hg] SatMay 31 10:15:23 EST 2024 Diastolic Blood Pressure 77.00 mm[Hg] SatMay 31 10:15:23 EST 2024 Heart Rate 69.00 /min SatMay 31 10:15 :23 EST 2024 Body temperature 97.60 [degF] SatMay 31 10:1 5:23 EST 2024 Respiratory rate 18.00 /min SatMay 31 10:1 5:23 EST 2024 Pulse Oximetry 99.00 % SatMay 31 10:15 :23 EST 2024 Systolic Blood Pressure 137.00 mm[Hg] SatMay 31 10:14:20 EST 2024 Diastolic Blood Pressure 77.00 mm[Hg] SatMay 31 10:14:20 EST 2024 Heart Rate 69.00 /min SatMay 31 10:14 :20 EST 2024 Systolic Blood Pressure 142.00 mm[Hg] SatMay 31 03:48:16 EST 2024 Diastolic Blood Pressure 59.00 mm[Hg] Sun May 02 03:48:16 EST 2024 Heart Rate 81.00 /min Sun May 31 03:48 :16 EST 2024 Body temperature 98.00 [degF] SatMay 31 03:4 8:16 EST 2024 Respiratory rate 16.00 /min Sun May 02 03:4 8:16 EST 2024 Pulse Oximetry 95.00 % SatMay 31 03:48 :16 EST 2024 Systolic Blood Pressure 150.00 mm[Hg] [facility] [[email or web address]] May 30 14:36:01 EST 2024 Diastolic Blood Pressure 77.00 mm[Hg] [facility] [[email or web address]] May 30 14:36:01 EST 2024 Heart Rate 77.00 /min SatMay 30 14:36 :01 EST 2024 Body temperature 97.30 [degF] [facility] [[email or web address] May 30 14:3 6:01 EST 2024 Respiratory rate 18.00 /min [facility] [[email or web address]] May 30 14:3 6:01 EST 2024 Pulse Oximetry 91.00 % [facility] [[email or web address]] May 30 14:36 :01 EST 2024 Systolic Blood Pressure 150.00 mm[Hg] [facility] [[email or web address]] May 30 09:59:14 EST 2024 Diastolic Blood Pressure 17.00 mm[Hg] [facility] [[email or web address]] May 30 09:59:14 EST 2024 Heart Rate 77.00 /min [facility] [[email or web address]] May 30 09:59 :14 EST 2024 Systolic Blood Pressure 120.00 mm[Hg] SatMay 29 23:47:19 EST 2024 Diastolic Blood Pressure 54.00 mm[Hg] SatMay 29 23:47:19 EST 2024 Heart Rate 68.00 /min SatMay 29 23:47 :19 EST 2024 Body temperature 97.40 [degF] SatMay 29 23:4 7:19 EST 2024 Respiratory rate 18.00 /min SatMay 29 23:4 7:19 EST 2024 Pulse Oximetry 94.00 % SatMay 29 23:47 :19 EST 2024 Body weight 179.20 [lb_av] SatMay 29 15:37 :42 EST 2024 Systolic Blood Pressure 137.00 mm[Hg] SatMay [...] EST 2024 Systolic Blood Pressure 137.00 mm[Hg] SatMay 29 10:06:57 EST 2024 Diastolic Blood Pressure 70.00 mm[Hg] SatMay 29 10:06:57 EST 2024 Heart Rate 78.00 /min [...] 78.00 mm[Hg] Rosa M Feb 27 10:47:41 2024 Heart Rate 79.00 /min Rosa M Feb 27 10:47 :41 2024 Body temperature 98.30 [degF] Rosa M Feb 27 10:4 7:41 EST 2024 Respiratory rate 20.00 /min Rosa M Feb 27 10:4 7:41 EST 2024 Pulse Oximetry 94.00 % Rosa M Feb 27 10:47 :41 2024 Systolic Blood Pressure 143.00 mm[Hg] Rosa M Feb 27 09:35:42 2024 Diastolic Blood Pressure 78.00 mm[Hg] Rosa [...] 2024 Body temperature 98.10 [degF] Wed Feb 22:2 1:54 EST 5 Respiratory rate 18.00 /min Wed Feb 26 22:2 1:54 EST 2024 Pulse Oximetry 97.00 % Wed Feb 26 22:21 :54 EST 2024 Body weight 178.20 [lb_av] Wed Feb 26 14:41 :52 EST 2025 Systolic Blood Pressure 149.00 mm[Hg] Wed Feb 26 11:57:05 EST 2024 Diastolic Blood Pressure 68.00 mm[Hg] Wed Feb 26 11:57:05 EST 2024 Heart Rate 79.00 /min Wed Feb 26 11:57 :05 EST 2024 Body temperature 98.20 [degF] Wed Feb 26 11:5 7:05 EST 2024 Respiratory rate 18.00 /min Wed [...] 5:07 EST 2024 Pulse Oximetry 97.00 % Sat Feb 02:15 :07 EST 2024 Body weight 179.20 [lb_av] Satb 14:17 :38 EST 2024 Systolic Blood Pressure 152.00 mm[Hg] Sat Feb 09:03:58 EST 2024 Diastolic Blood Pressure 80.00 mm[Hg] Sat Feb 09:03:58 EST 2024 Heart Rate 76.00 /min Sat Feb 09:03 :58 EST 2024 Body temperature 98.20 [degF] Sat Feb 09:0 3:58 EST 2024 Respiratory rate 18.00 /min Sat Feb 09:0 3:58 EST 2024 Pulse Oximetry 93.00 % Sat Feb 09:03 :58 EST 2024 Systolic Blood Pressure 152.00 mm[Hg] Sat Feb 08:33:30 EST 2024 Diastolic Blood Pressure 80.00 mm[Hg] SatMay 26 08:33:30 EST 2024 Heart Rate 76.00 /min SatMay 26 08:33 :30 EST 2024 Systolic Blood Pressure 146.00 mm[Hg] SatMay 26 00:19:27 EST 2024 Diastolic Blood Pressure 63.00 mm[Hg] SatMay 26 00:19:27 EST 2024 Heart Rate 73.00 /min Satb [...] 00:15:59 EST 2024 Heart Rate 77.00 /min Satb 00:15 :59 EST 2024 Body temperature 98.20 [degF] Satb 00:1 5:59 EST 2024 R [id number]|2024-08-18 13:38:57|2024-08-18 13:38:57|PC.NURSE||||" Report to the Outpatient Waiting Room, entrance under the green pavilion located off [facility], at time _1100am on date __08/19/24 . Planned Procedure Time: _100pm . Time changes happen often and if your time is changed the preop area will call you the afternoon before. - You and your visitor will be asked to self-screen and do not enter if you have any COVID symptoms. Please call surgeon if you need to reschedule. - A mask is optional within the hospital at this time. Patients may have clear liquids (water, carbonated beverages, clear teas, apple juice) until 3 hours prior to surgery with a maximum of 20 ounces. - No food from midnight until time of surgery and no smoking, or chewing tobacco (or any form of nicotine). No chewing gum, candy or mints. (1000am) Take only the following medications with a SIP of water on the morning of surgery: _Metoprolol , Gabapentin, Levothyroxine, Zofran if needed DO NOT STOP ANY OF YOUR OTHER PRESCRIPTION MEDICATIONS PRIOR TO SURGERY EXCEPT THE FOLLOWING Hold all vitamins and supplements for 3 days per anesthesiologist. Medications to discontinue per physician Eliquis Date to take last dose___08/18/24 Please no make-up, nail kiswahili, hairspray, perfume, deodorant, or body powder the day of surgery. No jewelry (including any body piercings) or valuables the day of surgery, leave them at home. Please take a shower or bath the night before, or the morning of, surgery with an antibacterial soap. Wear comfortable, loose fitting clothing. Children are encouraged to wear pajamas. - Jewelry must be removed prior to entering the operating room. Rings and piercings that are not removed may be cut off. - The hospital will not accept responsibility for valuables. - Please leave all valuables, including medications, at home the day of surgery. If you are going home after surgery, a licensed auto carrier driver must drive you home. - NO public transportation without another adult if you receive anesthesia. - We recommend that an adult stay with you for 24 hours following discharge. - We also recommend that you do not drive, make important decision, drink alcoholic beverages, or take any drugs that were not prescribed by your health care provider for at least 24 hours after your discharge time. Follow any additional instructions given to you from your surgeon. Telephone instructions given to ___Daughter Jodi and asked if any additional questions and then verbalized understanding. Patient advised to call surgeon office or pre surgery nurse liaison [phone] if any additional questions."
[2024-08-19 11:35] VITALS: BP 110/67; PULSE 93; RESP 18; TEMP 36.6; O2SAT 98
--- NOTE | 2024-08-19 12:52 | P.PNAN_ITS ---
Anes - Initial Pre Proc Eval Procedure: Operation Date: 08/19/24 13:00 Proposed Procedures p Incision and Drainage of Right Abdominal Wall Abscess - Caio Chester MD Date/Time: 08/19/24 12:52 Surgeon: Caio Chester MD Pre Op Diagnosis: Right Abdominal Wall Abscess Patient Data Age: 84 Gender: F Height: 1.6 m Weight: 65.1 kg Last Vital Signs Temp 36.6 C 08/19/24 11:35 Pulse 93 08/19/24 11:35 Resp 18 08/19/24 11:35 BP 110/67 08/19/24 11:35 Pulse Ox 98 08/19/24 11:35 O2 Del Method Room Air 08/19/24 11:35 Allergies Allergy/AdvReac Type Severity Reaction Status Date / Time alendronate sodium Allergy Unknown Pt does Verified 08/19/24 11:57 remember levofloxacin Allergy Unknown Pt does Verified 08/19/24 11:57 not remember hydrocodone AdvReac Mild IF SHE Verified 08/19/24 11:57 TAKES 250 MG SHE IS OKAY, 500 MG SHE HAS NAUSEA AND V Home Medications Medication Instructions Recorded Confirmed Type cyanocobalamin (vitamin B-12) 2,500 mcg PO QAM #90 tabs 01/10/23 08/19/24 Rx 2,500 mcg tablet levothyroxine 25 mcg tablet 25 mcg PO DAILY #90 tabs 03/20/23 08/19/24 Rx omeprazole 20 mg capsule,delayed 40 mg (2 x 20 mg) PO DAILY #180 08/28/23 08/19/24 Rx release caps ondansetron HCl 4 mg tablet See Rx Instructions .Route 12/03/23 08/19/24 Rx .COMPLEX #40 ea egg crate mattress for chair #1 ea 04/27/24 08/18/24 Rx nitroglycerin 0.4 mg sublingual 0.4 mg sublingual Q5M PRN chest 05/02/24 08/18/24 History tablet pain acetaminophen 500 mg capsule 1,000 mg PO TID PRN pain 06/13/24 08/19/24 History amitriptyline 10 mg tablet 20 mg PO .HS 06/13/24 08/19/24 History furosemide 40 mg tablet (Lasix) 40 mg PO BID 30 days #60 tabs 06/20/24 08/19/24 Rx metoprolol succinate 100 mg 100 mg PO DAILY 30 days #30 tabs 06/20/24 08/19/24 Rx tablet,extended release 24 hr (Toprol XL) apixaban 5 mg tablet (Eliquis) 5 mg PO Q12HR #60 tabs 06/22/24 08/19/24 Rx potassium chloride 20 mEq 40 meq (2 x 20 mEq) PO DAILY #30 06/22/24 08/19/24 Rx tablet,extended release(part/cryst) tabs atorvastatin 40 mg tablet 40 mg PO DAILY #90 tabs 06/29/24 08/19/24 Rx chair lift #1 ea 06/29/24 08/18/24 Rx amoxicillin 875 mg-potassium 1 tablet PO Q12H #14 tabs 08/12/24 08/19/24 Rx clavulanate 125 mg tablet sulfamethoxazole 800 1 tab PO Q12HR #14 tabs 08/12/24 08/19/24 Rx mg-trimethoprim 160 mg tablet gabapentin 100 mg capsule 200 mg (2 x 100 mg) PO BID #120 08/17/24 08/19/24 Rx caps tamsulosin 0.4 mg capsule 0.4 mg PO DAILY urinary retention 08/17/24 08/19/24 Rx #90 caps Patient hx anesthesia problems: none Family hx anesthesia problems: none Results Review: All pre-operative results and documents have been reviewed as part of the pre- operative evaluation. 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 Patient of Dr. Bereket Olson. Arthritis Prediabetes Essential hypertension Gastroesophageal reflux disease Hypothyroidism Mixed hyperlipidemia Seasonal allergic rhinitis Vitamin B12 deficiency Vitamin D deficiency Surgical History Surgical History History of cardiac catheterization Results as above. History of colonoscopy with polypectomy History of appendectomy History of cataract extraction History of hysterectomy Family History Family History Father Lung cancer Sibling Breast cancer Social History Social History Social History: Surrogate medical decision maker: Jodi Lewis, daughter. Code status: Full code. Smoking status: Never smoker Second hand tobacco smoke exposure: No Alcohol intake: never Substance use: never Substance use type: does not use Do You Feel Safe in your Home?: Yes Lack of Transportation: No Lack of Food: Never True Current Housing: I Have Housing Concerned About Future Housing: No Difficulty Paying Gas/Electric Bills: No Difficulty Paying for Meds: No Currently Unemployed: No Education: High School Diploma/GED Difficulty w/ Childcare or Family Care: No Living arrangements: with family Additional living arrangements comments: The patient lives in [place] with her daughter Jodi. 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 Spiritual care concerns: No Agree to blood products: Yes Anes - Eval Final PreProcedure Day of Procedure 08/19/24 12:52 Patient weight: normal Heart: regular rate and rhythm Lungs: clear to auscultation Airway: Mallampati scale class II Neurological: alert and oriented Last oral intake: >/= 8 hours ASA classification: III Emergent: no Anesthetic plan: proceed Anesthesia type and monitoring: general GIVS and standard monitoring Results Review: All pre-operative results and documents have been reviewed as part of the pre- operative evaluation. Informed Consent: The patient's anesthetic plan and its attendant risks and benefits were discussed with the patient/family/POA. Questions were solicited and answers provided to the satisfaction of the patient/family/POA.
--- NOTE | 2024-08-19 13:08 | WPDHPUPDATE1 ---
History and Physical Update Update Date/Time: 08/19/24 13:08 History and Physical has been reviewed, including an updated exam of the patient. There are NO changes in the patient's condition. Risks, benefits, and alternatives have been discussed and questions answered. Patient agrees to proceed with procedure.
[2024-08-19] MEDS: ceFAZolin 2 GM/D5W 50 ML 2 GM/50 ML BAG IVPB (13:26)
[2024-08-19] MEDS: BUPivacaine HCL 0.5% 10 ML AMP 30 ML INFILTRATE (13:52)
[2024-08-19] MEDS: LIDO 1%/EPINEPHRINE 1:100,000 20 ML VIAL 30 ML INFILTRATE (13:52)
[2024-08-19 14:03] VITALS: BP 113/52; PULSE 80; RESP 14; O2SAT 95
[2024-08-19] MEDS: LACTATED RINGERS 1,000 ML 30 ML IV CONT (14:03)
[2024-08-19 14:30] VITALS: BP 137/55; RESP 14; O2SAT 94
[2024-08-19 15:17] VITALS: BP 101/55; PULSE 83
--- NOTE | 2024-08-19 19:22 | W.PM.PROC2 ---
Procedure Note - Detailed Date of Procedure 08/19/24 Pre-op Diagnosis Right Abdominal Wall Abscess Post-op Diagnosis Same Procedure Performed Incision and drainage of right lateral abdominal abscess. Surgeon Caio Chester MD Media Reconciliation Specialist Danielle Pennington [employer] OPERATOR Anesthesia General Indications Patient is a 84-year-old female who recently underwent a complicated robotic assisted laparoscopic fenestrated subtotal cholecystectomy due to acute on chronic cholecystitis and perforation of the gallbladder. Postoperatively she had a SRAVAN drain in right upper quadrant coming out through a lateral port site on the right side. She notes having a bile leak which was treated endoscopically with placement of a common bile duct stent. This stop the bile leak. Eventually the right upper quadrant drain was removed. She unfortunately developed redness and what appeared to be an infection at the right lateral subcostal trocar port site. She presents now for incision and drainage of the right lateral abdominal wall port site which has developed a subcutaneous abscess. Findings Patient had a relatively large subcutaneous abscess at the most lateral right subcostal port site incision. There was pus draining from the area and the abscess cavity measured approximately [id number] after the abscess was drained and all of the infected tissue was removed. The fascia underneath was intact. There was no extension of the abscess underneath the fascia of the abdominal wall musculature. The overlying skin was viable. The abscess cavity after irrigation and drainage was packed with 1in iodoform gauze. Description of Procedure After informed consent was obtained patient brought to the operating room she was placed supine position and general LMA anesthesia was administered. The abdomen was then prepped and draped usual sterile fashion. A time-out was then performed correctly identifying the patient as well as the procedure to be performed. Site marking was verified. She was given perioperative IV antibiotics. First started by placing a Bethany clamp through the draining wound on the right lateral abdominal wall at the previous port site incision. The clamp extended inferior medially down the lateral right abdominal wall down to the anterior superior iliac spine. Copious amounts of pus drained from this area upon dilating the tract. A wound culture swab was obtained and sent to microbiology. I then opened the skin over the abscess cavity with a scalpel. I was then able to break down loculations within the abscess cavity with finger dissection and then sharply removed the nonviable subcutaneous tissue in the area. There was no extension of the abscess or infection underneath the fascia of the abdominal wall in this area. The fascia appeared to be intact and viable. No evidence of hernia defect was seen. I then irrigated out the abscess cavity with copious amounts sterile saline solution. The sterile site of a scrub brush was then used to remove any loose debris was scrubbing the abscess cavity. It was then irrigated with about 500cc of sterile saline solution. Small bleeding points was then treated with electrocautery to achieve hemostasis. I then packed the wound tightly with 1in iodoform gauze. Hemostasis was achieved with the packing of the wound. I then cover the wound with fluffed 4x4 gauze, ABD pads, and Medipore tape for final dressing. The patient tolerated the procedure well no complications. All sponges, needles, and instrument counts were correct at the end procedure. EBL was _25__cc. The patient was awakened and taken to recovery in stable and satisfactory condition. Implants None Estimated Blood Loss 25 Drains No Packing Yes (2.5 yd of 1in iodoform gauze packed into abscess cavity R lat abd wall) Pathology Other (Abscess cavity wound swab sent to microbiology for Gram stain, aerobic and anaerobic cultures.) Complications No immediate complications Condition Stable Disposition PACU [facility] Billing Surgery - Charge Forward: Surgery Billing
== END 2024-08-19 15:48 | disposition home or self-care (01) ==
PROVIDERS: PCP Family Medicine; Visit Provider Surgery
PROC: (CPT 10061; principal; 2024-08-19 13:00)
DX: T81.41XA Infection following a procedure, superficial incisional surgical site, initial encounter (principal); L02.211 Cutaneous abscess of abdominal wall; Y83.8 Other surgical procedures as the cause of abnormal reaction of the patient, or of later complication, without mention of misadventure at the time of the procedure
CPT/HCPCS: 10061; 87070; 87075; 87181; 87205; A9270; J0690; J2004; J3010; J7120

== ENCOUNTER 2024-10-05 12:11 | Outpatient (NON) | payer MEDICARE, SELFPAY ==
--- OUTSIDE RECORDS SUMMARY | 2024-10-05 12:14 | XMS_ITS ---
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 Role Phone May Carrillo Unavailable AaliyahDiana fagan Unavailable Functional Status No Results Mental Status No Results Allergies and Intolerances Name Onset Date Reaction Severity hydrocodone (Allergy) SatJan 10 19:57:00 EDT 20 23 levofloxacin (Allergy) SatJan 10 19:57:00 EDT 2 023 alendronate sodium (Allergy) SatJan 10 19:56:00 EDT 2022 Encounters Program Name Primary Diagnosis Admission Date/Time Dis charge Date/Time [facility] SatMay [...] Indication: Insomnia SatMay 31 09:27:00 EST 2024 14 01:00:00 EDT 2024 amoxicillin 875 mg-potassium [...] rotate nostril used SatMay 28 15:38:00 EST 2024u Feb 27 17:01:00 EST 2024 calcitonin (salmon) [...] 6 Hours Indication: pain SatJan 11 14:11:00 EDT 2022Feb 06 01:00:00 EST 2022 isosorbide mononitrate ER 60 mg tablet,extended release 24 hr 1 TAB TABLET, EXTENDED RELEASE 24 HR Oral 1 Time Daily Indication: Chest pain SatJan 10 20:00:00 T 2022Feb 06 01:00:00 EST 2022 Xarelto 10 [...] 12 Hours Indication: Angina SatJan 11 07:00:00 T 2022Feb 06 01:00:00 EST 2022 omeprazole 20 mg capsule,delayed release 20 MG CAPSULE,DELAYED RELEASE (ENTERIC COATED) Oral 1 Time Daily Indication: GERD. Take daily before breakfast. SatJan 10 20:00:00 2022Feb 06 01:00:00 EST 2022 atorvastatin 40 mg tablet 40 MG TABLET O ral 1 Time Daily Indication: HYPERLIPIDEMIA SatJan 10 20:00:00 T 2022Feb 06 01:00:00 EST 2022 amitriptyline 10 [...] 2022 * End Date: * Text: * senior living (current) use of anticoagulants* Code: * Start [...] * Text: * Atherosclerotic heart disease of [place] coronary artery with other forms of angina [...] 2024 * End Date: * Text: * [id number] Amude receiving mechanically altered diet. (12)* Code: * Start Date: SatMay 19 00:00:00 EST 2024 * End Date: * Text: [id number] Maude receiving mechanically altered diet. 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 78.00 mm[Hg] SatJun 12 10:53:11 EDT 2024 Pulse Oximetry 96.00 % SatJun 12 10:53 :11 EDT 2024 Heart Rate 79.00 /min SatJun 12 10:53 :11 EDT 2024 Body temperature 97.30 [degF] SatJun 12 10:5 3:11 EDT 2024 Respiratory rate 20.00 /min SatJun 12 10:5 3:11 ED2024 Systolic Blood Pressure 140.00 mm[Hg] SatJun 12 09:32:53 EDT 2025 Diastolic Blood Pressure 78.00 mm[Hg] Sat 14 09:32:53 EDT 2024 Heart Rate 79.00 /min Sat 14 09:32 :53 EDT 2024 Systolic Blood Pressure 140.00 mm[Hg] Sat 14 01:52:34 EDT 2024 Diastolic Blood Pressure 71.00 mm[Hg] Sat 14 01:52:34 EDT 2024 Pulse Oximetry 94.00 % Sat 14 01:52 :34 EDT 2024 Heart Rate 85.00 /min Sat [...] mm[Hg] Rosa Mmay 13 09:48:55 EDT 2024 Pulse Oximetry 94.00 % Rosa Mmay 13 09:48 :55 EDT 2024 Heart Rate 114.00 /min Rosa Mmay 13 09:48 :55 EDT 2024 Body temperature 97.90 [degF] Rosa Mmay 13 09:4 8:55 EDT 2024 Respiratory rate 16.00 /min Rosa Mmay 13 09:4 8:55 EDT 2024 Systolic Blood Pressure 118.00 mm[Hg] Rosa Mmay 13 09:09:32 EDT 2024 Diastolic Blood Pressure 72.00 mm[Hg] Rosa Mmay 13 09:09:32 EDT 2024 Heart Rate 114.00 /min Rosa Mmay 13 09:09 :32 EDT 2024 Systolic Blood Pressure 150.00 mm[Hg] Rosa Mmay 13 00:15:26 EDT 2024 Diastolic Blood Pressure 73.00 mm[Hg] Rosa Mmay 13 00:15:26 EDT 2024 Pulse Oximetry 95.00 % Rosa Mmay 13 00:15 :26 EDT 2024 Heart Rate 84.00 /min Rosa Mmay 13 00:15 :26 EDT 2024 Body temperature 98.10 [degF] Rosa Mmay 13 00:1 5:26 EDT 2024 Respiratory rate 16.00 /min Rosa M Mar 13 00:1 5:26 EDT 2024 Body weight 169.80 [lb_av] SatJun 10 10:11 :29 EDT 2024 Systolic Blood Pressure 130.00 mm[Hg] SatJun 10 08:31:51 EDT 2024 Diastolic Blood Pressure 82.00 mm[Hg] SatJun 10 08:31:51 EDT 2024 Systolic Blood Pressure 130.00 mm[Hg] SatJun 10 08:31:51 EDT 2024 Diastolic Blood Pressure 82.00 mm[Hg] SatJun 10 08:31:51 EDT 2024 Pulse Oximetry 97.00 % SatJun 10 08:31 :51 EDT 2024 Heart [...] 61.00 mm[Hg] SatJun 09 23:35:41 EDT 2024 Pulse Oximetry 95.00 % SatJun 09 23:35 :41 EDT 2024 Heart Rate 88.00 /min SatJun 09 23:35 :41 EDT 2024 Body temperature 97.90 [degF] SatJun 09 23:3 5:41 EDT 2024 Respiratory rate 18.00 /min SatJun 09 23:3 5:41 EDT 2024 Systolic Blood Pressure 150.00 mm[Hg] SatJun 09 18:05:59 EDT 2024 Diastolic Blood Pressure 78.00 mm[Hg] SatJun 09 18:05:59 EDT 2024 Pulse Oximetry 97.00 % SatJun 09 18:05 :59 EDT 2024 Heart Rate 88.00 /min SatJun 09 18:05 :59 EDT 2024 Body temperature 97.80 [degF] SatJun 09 18:0 5:59 EDT 2024 Respiratory rate 18.00 /min SatJun 09 18:0 5:59 EDT 2024 Body weight 176.60 [lb_av] SatJun 09 17:55 :10 EDT 2025 Systolic Blood Pressure 141.00 mm[Hg] SatJun 08 23:07:50 EDT 5 Diastolic Blood Pressure 63.00 mm[Hg] SatJun 08 23:07:50 EDT 2024 Pulse Oximetry 97.00 % SatJun 08 23:07 :50 EDT 2024 Heart Rate 80.00 /min SatJun 08 23:07 :50 EDT 2024 Body temperature 98.00 [degF] SatJun 08 23:0 7:50 EDT 2024 Respiratory rate 18.00 /min SatJun 08 23:0 7:50 EDT 2024 Body weight 177.10 [lb_av] SatJun 08 13:19 :52 EDT 2024 Systolic Blood Pressure 179.00 mm[Hg] SatJun 08 11:05:38 EDT 2024 Diastolic Blood Pressure 83.00 mm[Hg] SatJun 08 11:05:38 EDT 2024 Pulse Oximetry 94.00 % SatJun 08 11:05 :38 EDT 2024 Heart Rate 82.00 /min SatJun 08 11:05 :38 EDT 2024 Body temperature 97.30 [degF] SatJun 08 11:0 5:38 EDT 2024 Respiratory rate 18.00 /min SatJun 08 11:0 5:38 EDT 2024 Systolic Blood Pressure 179.00 mm[Hg] SatJun 08 09:49:14 EDT 2024 Diastolic Blood Pressure 83.00 mm[Hg] SatJun 08 09:49:14 EDT 2024 Heart Rate 82.00 /min SatJun 08 09:49 :14 EDT 2024 Systolic Blood Pressure 124.00 mm[Hg] SatJun 08 01:08:22 EDT 2024 Diastolic Blood Pressure 71.00 mm[Hg] SatJun 08 01:08:22 EDT 2024 Pulse Oximetry 96.00 % SatJun 08 01:08 :22 EDT 2024 Heart Rate 79.00 /min SatJun 08 01:08 :22 EDT 2024 Body temperature 97.50 [degF] SatJun 08 01:0 8:22 EDT 2024 Respiratory rate 16.00 /min SatJun 08 01:0 8:22 EDT 2024 Systolic Blood Pressure 166.00 mm[Hg] SatJun 07 18:24:52 EDT 2024 Diastolic Blood Pressure 78.00 mm[Hg] SatJun 07 18:24:52 EDT 2024 Pulse Oximetry 98.00 % Sun Jun 07 18:24 :52 EDT 2024 Body weight 175.30 [lb_av] Sun Jun 07 18:24 :52 EDT 2024 Heart Rate 79.00 /min Sun Jun 07 18:24 :52 EDT 2024 Body temperature 97.70 [degF] Sun Jun 07 18:2 4:52 EDT 5 Respiratory rate 20.00 /min Sun Mar 18:2 4:52 EDT 2024 Systolic Blood Pressure 166.00 mm[Hg] Sun Jun 07 10:47:49 EDT 2024 Diastolic Blood Pressure 78.00 mm[Hg] Sun Jun 07 10:47:49 EDT 2024 Heart Rate 79.00 /min Sun Jun 07 10:47 :49 EDT 2024 Systolic Blood Pressure 129.00 mm[Hg] Sat May 08 23:42:57 EST 2024 Diastolic Blood Pressure 67.00 mm[Hg] Sat May 08 23:42:57 EST 2024 Pulse Oximetry 95.00 % Sat Jun 06 23:42 :57 EST 2024 Heart Rate 78.00 /min Sat Jun 06 23:42 :57 EST 2024 Body temperature 97.50 [degF] Sat May 08 23:4 2:57 EST 2024 Respiratory rate 18.00 /min Sat May 08 23:4 2:57 EST 2024 Body weight 174.90 [lb_av] Sat May 08 15:57 :03 EST 2024 Systolic Blood Pressure 146.00 mm[Hg] Sat May 08 10:54:56 EST 2024 Diastolic Blood Pressure 84.00 mm[Hg] Sat May 08 10:54:56 EST 2024 Pulse Oximetry 95.00 % Sat May 08 10:54 :56 EST 2024 Heart Rate 76.00 /min Sat [...] 80.00 mm[Hg] Sat 08 01:03:16 EST 2024 Pulse Oximetry 98.00 % Sat 08 01:03 :16 EST 2024 Heart Rate 74.00 /min Sat 08 01:03 :16 EST 2024 Body temperature 97.80 [degF] Sat 08 01:0 3:16 EST 2024 Respiratory rate 18.00 /min Sat 08 01:0 3:16 EST 2024 Body weight 174.20 [lb_av] SatJun 05 13:09 :22 EST 2024 Systolic Blood Pressure 147.00 mm[Hg] SatJun 05 09:23:28 EST 2024 Diastolic Blood Pressure 85.00 mm[Hg] SatJun 05 09:23:28 EST 2024 Pulse Oximetry 95.00 % SatJun 05 09:23 :28 EST 2024 Heart Rate 77.00 /min SatJun 05 09:23 :28 EST 2024 Body temperature 98.20 [degF] SatJun 05 09:2 3:28 EST 2024 Respiratory rate 20.00 /min SatJun 05 09:2 3:28 EST 2024 Systolic Blood Pressure 147.00 mm[Hg] SatJun 05 09:22:11 EST 2024 Diastolic Blood Pressure 85.00 mm[Hg] SatJun 05 09:22:11 EST 2024 Heart Rate 77.00 /min SatJun 05 09:22 :11 EST 2024 Systolic Blood Pressure 160.00 mm[Hg] SatJun 04 23:29:34 EST 2024 Diastolic Blood Pressure 88.00 mm[Hg] SatJun 04 23:29:34 EST 2024 Pulse Oximetry 94.00 % SatJun 04 23:29 :34 EST 2024 Heart Rate 86.00 /min SatJun [...] 69.00 mm[Hg] SatJun 04 09:05:33 EST 2024 Pulse Oximetry 95.00 % SatJun 04 09:05 :33 EST 2024 Respiratory rate 18.00 /min SatJun 04 09:0 5:33 EST 2024 Heart Rate 84.00 /min SatJun 04 09:05 :33 EST 2024 Heart Rate 84.00 /min SatJun 04 09:05 :33 EST 2024 Body temperature 97.60 [degF] SatJun 04 09:0 5:33 EST 2024 Systolic Blood Pressure 151.00 mm[Hg] SatJun 03 23:00:22 EST 2024 Diastolic Blood Pressure 81.00 mm[Hg] SatJun 03 23:00:22 EST 2024 Pulse Oximetry 97.00 % SatJun 03 23:00 :22 EST 2024 Heart Rate 83.00 /min SatJun [...] 93.00 mm[Hg] SatJun 03 09:07:24 EST 2024 Pulse Oximetry 92.00 % SatJun 03 09:07 :24 EST 2024 Heart Rate 91.00 /min SatJun 03 09:07 :24 EST 2024 Heart Rate 91.00 /min SatJun 03 09:07 :24 EST 2024 Body temperature 97.60 [degF] SatJun 03 09:0 7:24 EST 2024 Respiratory rate 18.00 /min SatJun 03 09:0 7:24 EST 2024 Systolic Blood Pressure 152.00 mm[Hg] SatJun 03 00:25:43 EST 2024 Diastolic Blood Pressure 68.00 mm[Hg] SatJun 03 00:25:43 EST 2024 Pulse Oximetry 93.00 % SatJun 03 00:25 :43 EST 2024 Heart Rate 84.00 /min SatJun 03 00:25 :43 EST 2024 Body temperature 97.80 [degF] SatJun 03 00:2 5:43 EST 2024 Respiratory rate 18.00 /min SatJun 03 00:2 5:43 EST 2024 Systolic Blood Pressure 160.00 mm[Hg] SatJun 02 10:43:02 EST 2024 Diastolic Blood Pressure 77.00 mm[Hg] SatJun 02 10:43:02 EST 2024 Pulse Oximetry 93.00 % SatJun 02 10:43 :02 EST 2024 Heart Rate 83.00 /min SatJun 02 10:43 :02 EST 2024 Body temperature 98.60 [degF] SatJun 02 10:4 3:02 EST 2024 Respiratory rate 18.00 /min SatJun 02 10:4 3:02 EST 2024 Systolic Blood Pressure 160.00 mm[Hg] SatJun 02 09:50:19 EST 2024 Diastolic Blood Pressure 77.00 mm[Hg] SatJun 02 09:50:19 EST 2024 Heart Rate 83.00 /min SatJun 02 09:50 :19 EST 2024 Systolic Blood Pressure 136.00 mm[Hg] SatJun 02 01:35:52 EST 2024 Diastolic Blood Pressure 63.00 mm[Hg] SatJun 02 01:35:52 EST 2024 Pulse Oximetry 94.00 % SatJun 02 01:35 :52 EST 2024 Heart Rate 70.00 /min SatJun [...] 69.00 mm[Hg] SatJun 01 10:03:14 EST 2024 Pulse Oximetry 96.00 % Mon Mar 03 10:03 :14 EST 2024 Heart Rate 79.00 /min Mon May 03 10:03 :14 EST 2024 Heart Rate 79.00 /min Mon May 03 10:03 :14 EST 2024 Body temperature 98.20 [degF] Sat 03 10:0 3:14 EST 2024 Respiratory rate 18.00 /min Mon Jun 01 10:0 3:14 EST 2024 Systolic Blood Pressure 137.00 mm[Hg] Sun May 31 23:07:31 EST 2024 Diastolic Blood Pressure 61.00 mm[Hg] Sun May 31 23:07:31 EST 2024 Pulse Oximetry 99.00 % Sun May 31 23:07 :31 EST 2024 Heart Rate 72.00 /min Sun May 31 23:07 :31 EST 2024 Body temperature 97.60 [degF] Sun May 31 23:0 7:31 EST 2024 Respiratory rate 18.00 /min Sun May 31 23:0 7:31 EST 2024 Systolic Blood Pressure 137.00 mm[Hg] Sun May 31 10:15:23 EST 2024 Diastolic Blood Pressure 77.00 mm[Hg] Sun May 31 10:15:23 EST 2024 Pulse Oximetry 99.00 % Sun May 31 10:15 :23 EST 2024 Heart Rate 69.00 /min Sun May 31 10:15 :23 EST 2024 Body temperature 97.60 [degF] Sun May 31 10:1 5:23 EST 2024 Respiratory rate 18.00 /min Sun May 31 10:1 5:23 EST 2024 Systolic Blood Pressure 137.00 mm[Hg] Sun May 31 10:14:20 EST 2024 Diastolic Blood Pressure 77.00 mm[Hg] Sun May 31 10:14:20 EST 2024 Heart Rate 69.00 /min Sun May 02 10:14 :20 EST 2024 Systolic Blood Pressure 142.00 mm[Hg] Sun May 02 03:48:16 EST 2024 Diastolic Blood Pressure 59.00 mm[Hg] Sun May 02 03:48:16 EST 2024 Pulse Oximetry 95.00 % Sun May 02 03:48 :16 EST 2024 Heart Rate 81.00 /min Sun May 02 03:48 :16 EST 2024 Body temperature 98.00 [degF] Sun May 02 03:4 8:16 EST 2024 Respiratory rate 16.00 /min Sun May 02 03:4 8:16 EST 5 Systolic Blood Pressure 150.00 mm[Hg] Sat May 30 14:36:01 EST 2024 Diastolic Blood Pressure 77.00 mm[Hg] [facility] May 30 14:36:01 EST 2024 Pulse Oximetry 91.00 % [facility] May 30 14:36 :01 EST 2024 Heart Rate 77.00 /min [facility] May 30 14:36 :01 EST 2024 Body temperature 97.30 [degF] [facility] May 30 14:3 6:01 EST 2024 Respiratory rate 18.00 /min [facility] May 30 14:3 6:01 EST 2024 Systolic Blood Pressure 150.00 mm[Hg] [facility] May 30 09:59:14 EST 2024 Diastolic Blood Pressure 17.00 mm[Hg] [facility] May 30 09:59:14 EST 2024 Heart Rate 77.00 /min [facility] May 30 09:59 :14 EST 2024 Systolic Blood Pressure 120.00 mm[Hg] SatMay 29 23:47:19 EST 2024 Diastolic Blood Pressure 54.00 mm[Hg] Satb 23:47:19 EST 2024 Pulse Oximetry 94.00 % SatMay 29 23:47 :19 EST 2024 Heart Rate 68.00 /min SatMay 29 23:47 :19 EST 2024 Body temperature 97.40 [degF] SatMay 29 23:4 7:19 EST 2024 Respiratory rate 18.00 /min SatMay 29 23:4 7:19 EST 2024 Body weight 179.20 [lb_av] SatMay 29 15:37 :42 EST 2024 Systolic Blood Pressure 137.00 mm[Hg] SatMay 29 10:42:45 EST 2024 Diastolic Blood Pressure 70.00 mm[Hg] SatMay 29 10:42:45 EST 2024 Pulse Oximetry 91.00 % SatMay 29 10:42 :45 EST 2024 Heart Rate 78.00 /min SatMay 29 10:42 :45 EST 2024 Body temperature 98.20 [degF] SatMay 29 10:4 2:45 EST 2024 Respiratory rate 20.00 /min SatMay 29 10:4 2:45 EST 2024 Systolic Blood Pressure 137.00 mm[Hg] Satb 10:06:57 EST 2024 Diastolic Blood Pressure 70.00 mm[Hg] Satb 10:06:57 EST 2024 Heart Rate 78.00 /min Fri Feb 28 10:06 :57 EST 2024 Systolic Blood Pressure 142.00 mm[Hg] Rosa M Feb 27 23:22:43 EST 2024 Diastolic Blood Pressure 72.00 mm[Hg] Rosa M Feb 27 23:22:43 EST 2024 Pulse Oximetry 96.00 % Rosa M Feb 27 23:22 :43 EST 2024 Heart Rate 93.00 /min Rosa [...] mm[Hg] Rosa M Feb 27 10:47:41 2024 Pulse Oximetry 94.00 % Rosa M Feb 27 10:47 :41 2024 Heart Rate 79.00 /min Rosa M Feb 27 10:47 :41 2024 Body temperature 98.30 [degF] Rosa M Feb 27 10:4 7:41 2024 Respiratory rate 20.00 /min Rosa M Feb 27 10:4 7:41 2024 Systolic Blood Pressure 143.00 mm[Hg] Rosa M Feb 27 09:35:42 2024 Diastolic Blood Pressure 78.00 mm[Hg] Rosa M Feb 27 09:35:42 EST 2024 Heart Rate 79.00 /min Rosa M Feb 27 09:35 :42 EST 2024 Systolic Blood Pressure 134.00 mm[Hg] Wed Feb 26 22:21:54 EST 5 Diastolic Blood Pressure 63.00 mm[Hg] Wed Feb 26 22:21:54 EST 2024 Pulse Oximetry 97.00 % Wed Feb 22:21 :54 EST 2024 Body temperature 98.10 [degF] Wed Feb 22:2 1:54 EST 2024 Heart Rate 77.00 /min Wed Feb 22:21 :54 EST 5 Respiratory rate 18.00 /min Wed Feb 26 22:2 1:54 EST 2024 Body weight 178.20 [lb_av] Wed Feb 26 14:41 :52 EST 2025 Systolic Blood Pressure 149.00 mm[Hg] Wed Feb 26 11:57:05 EST 2024 Diastolic Blood Pressure 68.00 mm[Hg] Wed Feb 26 11:57:05 EST 2024 Pulse Oximetry 98.00 % Wed Feb 26 11:57 :05 EST 2024 Heart Rate 79.00 /min Wed [...] mm[Hg] Wed Feb 26 02:15:07 EST 2024 Pulse Oximetry 97.00 % Wed Feb 26 02:15 :07 EST 2024 Heart Rate 79.00 /min Wed [...] 80.00 mm[Hg] Sat Feb 09:03:58 EST 2024 Pulse Oximetry 93.00 % Sat Feb 09:03 :58 EST 2024 Heart Rate 76.00 /min e Feb 09:03 :58 EST 2024 Body temperature 98.20 [degF] Sat Feb 09:0 3:58 EST 5 Respiratory rate 18.00 /min e Feb 09:0 3:58 EST 5 Systolic Blood Pressure 152.00 mm[Hg] e Feb 08:33:30 EST 2024 Diastolic Blood Pressure 80.00 mm[Hg] Satb 08:33:30 EST 2024 Heart Rate 76.00 /min Sat Feb 08:33 :30 EST 5 Systolic Blood Pressure 146.00 mm[Hg] Sat Feb 00:19:27 EST 2024 Diastolic Blood Pressure 63.00 mm[Hg] Sat Feb 00:19:27 EST 5 Pulse Oximetry 95.00 % Sat Feb 00:19 :27 EST 2024 Heart Rate 73.00 /min Sat Feb 00:19 :27 EST 5 Body temperature 97.80 [degF] Sat Feb 00:1 9:27 EST 5 Respiratory rate 18.00 /min Sat Feb 00:1 9:27 EST 2024 Body weight 181.30 [lb_av] Mon Feb 09:32 :44 EST 2024 Systolic Blood Pressure 142.00 mm[Hg] Sat Feb 24 09:03:45 EST 5 Diastolic Blood Pressure 73.00 mm[Hg] Mon Feb 24 09:03:45 EST 2024 Heart Rate 82.00 /min Mon Feb 24 09:03 :45 EST 5 Systolic Blood Pressure 142.00 mm[Hg] Mon Feb 24 08:35:58 EST 5 Diastolic Blood Pressure 79.00 mm[Hg] Mon Feb 24 08:35:58 EST 2024 Pulse Oximetry 95.00 % Sat Feb 24 08:35 :58 EST 5 Heart Rate 82.00 /min Mon Feb 24 08:35 :58 EST 5 Body temperature 97.80 [degF] Mon Feb 24 08:3 5:58 EST 2025 Respiratory rate 20.00 /min Mon Feb 24 08:3 5:58 EST 2025 Systolic Blood Pressure 162.00 mm[Hg] Mon Feb 24 00:15:59 EST 2025 Diastolic Blood Pressure 75.00 mm[Hg] Mon Feb 24 00:15:59 EST 2024 Pulse Oximetry 93.00 % Sat Feb 24 00:15 :59 EST 2024 Heart Rate 77.00 /min Mon Feb 24 00:15 :59 EST 5 Body temperature 98.20 [degF] Mon Feb 24 00:1 5:59 EST 2025 Respiratory rate 20.00 /min Mon Feb 24 00:1 5:59 EST 5 Body weight 181.20 [lb_av] Sun Feb 23 17:03 :09 EST 2024 Systolic Blood Pressure 131.00 mm[Hg] Sun Feb 09:44:13 EST 5 Diastolic Blood Pressure 64.00 mm[Hg] Sun Feb 09:44:13 EST 5 Pulse Oximetry 93.00 % Sun Feb 09:44 :13 EST 5 Heart Rate 70.00 /min Sun Feb 09:44 :13 EST 5 Body temperature 98.20 [degF] Sun Feb 09:4 4:13 EST 5 Respiratory rate 18.00 /min Sun Feb 09:4 4:13 EST 5 Systolic Blood Pressure 131.00 mm[Hg] Sun Feb 09:18:06 EST 5 Diastolic Blood Pressure 64.00 mm[Hg] Sun Feb 09:18:06 EST 5 Heart Rate 70.00 /min Sun Feb 09:18 :06 EST 5 Systolic Blood Pressure 138.00 mm[Hg] Sun Feb 01:24:44 EST 5 Diastolic Blood Pressure 58.00 mm[Hg] Sun Feb 01:24:44 EST 5 Pulse Oximetry 96.00 % Sun Feb 01:24 :44 EST 5 Heart Rate 73.00 /min Sun Feb 01:24 :44 EST 2024 Body temperature 97.80 [degF] Sun Feb 01:2 4:44 EST 5 Respiratory rate 18.00 /min Sun Feb 01:2 4:44 EST 5 Systolic Blood Pressure 112.00 mm[Hg] Sat Feb 22 10:13:54 EST 5 Diastolic Blood Pressure 64.00 mm[Hg] Sat Feb 22 10:13:54 EST 5 Pulse Oximetry 94.00 % Sat Feb 22 10:13 :54 EST 5 Heart Rate 68.00 /min Sat Feb 22 10:13 :54 EST 2025 Body temperature 97.80 [degF] Sat Feb 22 10:1 3:54 EST 5 Respiratory rate 18.00 /min Sat Feb 22 10:1 3:54 EST 5 Systolic Blood Pressure 112.00 mm[Hg] Sat Feb 22 09:03:52 EST 5 Diastolic Blood Pressure 64.00 mm[Hg] Sat Feb 22 09:03:52 EST 5 Heart Rate 68.00 /min Sat Feb 22 09:03 :52 EST 2024 Systolic Blood Pressure 100.00 mm[Hg] Sat Feb 22 03:18:59 EST 5 Diastolic Blood Pressure 86.00 mm[Hg] Sat Feb 22 03:18:59 EST 2024 Pulse Oximetry 95.00 % Sat Feb 22 03:18 :59 EST 5 Heart Rate 72.00 /min Sat Feb 22 03:18 :59 EST 2024 Body temperature 98.00 [degF] Sat Feb 22 03:1 8:59 EST 5 Respiratory rate 20.00 /min Sat Feb 22 03:1 8:59 EST 2024 Body weight 181.40 [lb_av] Fri Feb 19:00 :47 EST 2024 Systolic Blood Pressure 115.00 mm[Hg] Fri Feb 09:45:57 EST 5 Diastolic Blood Pressure 53.00 mm[Hg] Fri Feb 09:45:57 EST 2024 Systolic Blood Pressure 115.00 mm[Hg] Fri Feb 09:45:57 EST 2024 Diastolic Blood Pressure 53.00 mm[Hg] Fri Feb 09:45:57 EST 2024 Pulse Oximetry 94.00 % Fri Feb 09:45 :57 EST 2024 Heart Rate 66.00 /min Fri Feb 09:45 :57 EST 2024 Heart Rate 66.00 /min Fri Feb 09:45 :57 EST 2024 Body temperature 97.70 [degF] Fri Feb 09:4 5:57 EST 5 Respiratory rate 18.00 /min Fri Feb 09:4 5:57 EST 2024 Systolic Blood Pressure 126.00 mm[Hg] Sat Feb 00:02:02 EST 5 Diastolic Blood Pressure 61.00 mm[Hg] Fri Feb 00:02:02 EST 2024 Pulse Oximetry 97.00 % Sat Feb 00:02 :02 EST 2024 Heart Rate 70.00 /min Sat Feb 00:02 :02 EST 2024 Body temperature 97.30 [degF] Fri Feb 00:0 2:02 EST 5 Respiratory rate 18.00 /min Fri Feb 00:0 2:02 EST 2024 Body weight 180.00 [lb_av] Rosa M Feb 20 11:39 :56 EST 5 Systolic Blood Pressure 135.00 mm[Hg] Rosa M Feb 20 10:18:42 EST 5 Diastolic Blood Pressure 93.00 mm[Hg] Rosa M Feb 20 10:18:42 EST 5 Systolic Blood Pressure 135.00 mm[Hg] Rosa M Feb 20 10:18:42 EST 5 Diastolic Blood Pressure 93.00 mm[Hg] Rosa M Feb 20 10:18:42 EST 5 Pulse Oximetry 97.00 % Rosa M Feb 20 10:18 :42 EST 2025 Heart Rate 72.00 /min Rosa M Feb 20 10:18 :42 EST 2025 Heart Rate 72.00 /min Rosa M Feb 20 10:18 :42 EST 5 Body temperature 97.70 [degF] Rosa M Feb 20 10:1 8:42 EST 5 Respiratory rate 18.00 /min Rosa M Feb 20 10:1 8:42 EST 5 Systolic Blood Pressure 109.00 mm[Hg] Rosa M Feb 20 03:14:49 EST 5 Diastolic Blood Pressure 53.00 mm[Hg] Rosa M Feb 20 03:14:49 EST 2024 Pulse Oximetry 96.00 % Rosa M Feb 20 03:14 :49 EST 5 Heart Rate 64.00 /min Rosa M Feb 20 03:14 :49 EST 2024 Body temperature 97.90 [degF] Rosa M Feb 20 03:1 4:49 EST 5 Respiratory rate 18.00 /min Rosa M Feb 20 03:1 4:49 EST 5 Systolic Blood Pressure 180.00 mm[Hg] Wed Feb 19 14:11:46 EST 5 Diastolic Blood Pressure mm[Hg] Wed Feb 19 14:11:46 EST 5 Body weight 180.00 [lb_av] Wed Feb 19 14:11 :46 EST 5 Systolic Blood Pressure 109.00 mm[Hg] Wed Feb 19 09:57:46 EST 2025 Diastolic Blood Pressure 53.00 mm[Hg] Wed Feb 19 09:57:46 EST 5 Systolic Blood Pressure 109.00 mm[Hg] Wed Feb 19 09:57:46 EST 5 Diastolic Blood Pressure 53.00 mm[Hg] Wed Feb 19 09:57:46 EST 5 Pulse Oximetry 96.00 % Wed Feb 19 09:57 :46 EST 5 Heart Rate 63.00 /min Wed Feb 19 09:57 :46 EST 2025 Heart Rate 63.00 /min Wed Feb 19 09:57 :46 EST 5 Body temperature 97.40 [degF] Wed Feb 19 09:5 7:46 EST 2025 Respiratory rate 18.00 /min Wed Feb 19 09:5 7:46 EST 2025 Systolic Blood Pressure 146.00 mm[Hg] e Feb 18 21:27:31 EST 2025 Diastolic Blood Pressure 63.00 mm[Hg] e Feb 18 21:27:31 EST 2025 Pulse Oximetry 94.00 % e Feb 18 21:27 :31 EST 2025 Heart Rate 69.00 /min e Feb 18 21:27 :31 EST 2025 Body temperature 97.80 [degF] e Feb 18 21:2 7:31 EST 2025 Respiratory rate 18.00 /min e Feb 18 21:2 7:31 EST 5 Body temperature 97.10 [degF] e Feb 18 13:0 5:30 EST 5 Body weight 179.80 [lb_av] e Feb 18 11:46 :01 EST 2025 Systolic Blood Pressure 119.00 mm[Hg] e Feb 18 09:29:54 EST 2025 Diastolic Blood Pressure 60.00 mm[Hg] e Feb 18 09:29:54 EST 5 Pulse Oximetry 93.00 % e Feb 18 09:29 :54 EST 2025 Heart Rate 69.00 /min e Feb 18 09:29 :54 EST 2025 Body temperature 97.60 [degF] e Feb 18 09:2 9:54 EST 2025 Respiratory rate 16.00 /min e Feb 18 09:2 9:54 EST 2025 Systolic Blood Pressure 119.00 mm[Hg] e Feb 18 09:03:56 EST 2025 Diastolic Blood Pressure 60.00 mm[Hg] e Feb 18 09:03:56 EST 2025 Heart Rate 69.00 /min e Feb 18 09:03 :56 EST 2025 Systolic Blood Pressure 128.00 mm[Hg] e Feb 18 02:57:12 EST 2025 Diastolic Blood Pressure 61.00 mm[Hg] e Feb 18 02:57:12 EST 2025 Pulse Oximetry 94.00 % e Feb 18 02:57 :12 EST 2024 Heart Rate 66.00 /min Satb 18 02:57 :12 EST 5 Body temperature 97.80 [degF] Satb 18 02:5 7:12 EST 5 Respiratory rate 18.00 /min Sat Feb 18 02:5 7:12 EST 5 Body weight 177.40 [lb_av] Sat Feb 17 10:51 :19 EST 5 Systolic Blood Pressure 121.00 mm[Hg] Mon Feb 17 10:32:33 EST 5 Diastolic Blood Pressure 73.00 mm[Hg] Mon Feb 17 10:32:33 EST 5 Pulse Oximetry 96.00 % Mon Feb 17 10:32 :33 EST 5 Heart Rate 73.00 /min Mon Feb 17 10:32 :33 EST 2024 Body temperature 97.30 [degF] Sat Feb 17 10:3 2:33 EST 5 Respiratory rate 16.00 /min Mon [...] mm[Hg] Mon Feb 17 00:08:31 EST 5 Pulse Oximetry 95.00 % Mon Feb 17 00:08 :31 EST 5 Heart Rate 66.00 /min Mon Feb 17 00:08 :31 EST 5 Body temperature 97.70 [degF] Mon Feb 17 00:0 8:31 EST 5 Respiratory rate 16.00 /min Mon Feb 17 00:0 8:31 EST 2025 Body weight 178.00 [lb_av] Sun Feb 16 14:09 :39 EST 5 Systolic Blood Pressure 117.00 mm[Hg] Sun Feb 16 10:16:27 EST 5 Diastolic Blood Pressure 52.00 mm[Hg] Sun Feb 16 10:16:27 EST 5 Pulse Oximetry 91.00 % Sun Feb 16 10:16 :27 EST 5 Heart Rate 64.00 /min Sun Feb 16 10:16 :27 EST 5 Body temperature 97.60 [degF] Sun Feb 16 10:1 6:27 EST 5 Respiratory rate 16.00 /min Sun Feb 16 10:1 6:27 EST 5 Systolic Blood Pressure 117.00 mm[Hg] Sun Feb 16 09:45:17 EST 5 Diastolic Blood Pressure 55.00 mm[Hg] Sun Feb 16 09:45:17 EST 5 Heart Rate 64.00 /min Sun Feb 16 09:45 :17 EST 2025 Systolic Blood Pressure 125.00 mm[Hg] Sat Feb 15 23:03:29 EST 2025 Diastolic Blood Pressure 59.00 mm[Hg] Sat Feb 15 23:03:29 EST 2025 Pulse Oximetry 96.00 % Sat Feb 15 23:03 :29 EST 2025 Heart Rate 70.00 /min Sat Feb 15 23:03 :29 EST 5 Body temperature 97.30 [degF] Sat Feb 15 23:0 3:29 EST 2025 Respiratory rate 18.00 /min Sat Feb 15 23:0 3:29 EST 2025 Body weight 178.20 [lb_av] Sat Feb 15 12:49 :33 EST 2025 Systolic Blood Pressure 114.00 mm[Hg] Sat Feb 15 09:55:42 EST 5 Diastolic Blood Pressure 53.00 mm[Hg] Sat Feb 15 09:55:42 EST 2025 Systolic Blood Pressure 114.00 mm[Hg] Sat Feb 15 09:55:42 EST 2025 Diastolic Blood Pressure 53.00 mm[Hg] Sat Feb 15 09:55:42 EST 2025 Pulse Oximetry 92.00 % Sat [...] mm[Hg] Fri Feb 14 22:24:57 EST 2025 Pulse Oximetry 96.00 % Fri Feb 14 22:24 :57 EST 2024 Heart Rate 72.00 /min Fri Feb 14 22:24 :57 EST 2024 Body temperature 97.70 [degF] Fri Feb 14 22:2 4:57 EST 5 Respiratory rate 16.00 /min Fri Feb 14 22:2 4:57 EST 2024 Body weight 179.20 [lb_av] Fri Feb 14 13:46 :08 EST 2024 Systolic Blood Pressure 121.00 mm[Hg] Fri Feb 14 09:26:24 EST 5 Diastolic Blood Pressure 60.00 mm[Hg] Fri Feb 14 09:26:24 EST 2024 Systolic Blood Pressure 121.00 mm[Hg] Fri Feb 14 09:26:24 EST 2024 Diastolic Blood Pressure 60.00 mm[Hg] Fri Feb 14 09:26:24 EST 2024 Pulse Oximetry 97.00 % Sat Feb 14 09:26 :24 EST 2024 Heart Rate 68.00 /min Fri Feb 14 09:26 :24 EST 2024 Heart Rate 68.00 /min Fri Feb 14 09:26 :24 EST 2024 Body temperature 97.60 [degF] Fri Feb 14 09:2 6:24 EST 2024 Respiratory rate 18.00 /min Fri Feb 14 09:2 6:24 EST 2024 Systolic Blood Pressure 143.00 mm[Hg] Rosa M Feb 13 22:01:41 EST 2024 Diastolic Blood Pressure 61.00 mm[Hg] Rosa M Feb 13 22:01:41 EST 2024 Pulse Oximetry 96.00 % Rosa M Feb 13 22:01 :41 EST 2024 Heart Rate 62.00 /min Rosa M Feb 13 22:01 :41 EST 2024 Body temperature 97.80 [degF] Rosa M Feb 13 22:0 1:41 EST 5 Respiratory rate 18.00 /min Rosa M Feb 13 22:0 1:41 EST 2024 Body weight 178.40 [lb_av] Rosa M Feb 13 11:08 :53 EST 2024 Systolic Blood Pressure 177.00 mm[Hg] Rosa M Feb 13 09:30:38 EST 5 Diastolic Blood Pressure 91.00 mm[Hg] Rosa M Feb 13 09:30:38 EST 2024 Pulse Oximetry 92.00 % Rosa M Feb 13 09:30 :38 EST 2024 Heart Rate 79.00 /min Rosa M Feb 13 09:30 :38 EST 5 Body temperature 97.50 [degF] Rosa M Feb [...] 60.00 mm[Hg] Wed Feb 12 20:19:26 EST 2024 Pulse Oximetry 95.00 % Wed Feb 12 20:19 :26 5 Heart Rate 67.00 /min Wed Feb 12 20:19 :26 EST 2024 Body temperature 98.00 [degF] Wed Feb 12 20:1 9:26 EST 5 Respiratory rate 18.00 /min Wed Feb 12 20:1 9:26 EST 2024 Body weight 178.40 [lb_av] Wed Feb 12 11:46 :21 EST 5 Systolic Blood Pressure 126.00 mm[Hg] Wed Feb 12 10:03:54 EST 5 Diastolic Blood Pressure 58.00 mm[Hg] Wed Feb 12 10:03:54 EST 2024 Pulse Oximetry 93.00 % Wed Feb 12 10:03 :54 EST 5 Heart Rate 69.00 /min Wed Feb 12 10:03 :54 EST 2024 Body temperature 97.40 [degF] Wed Feb 12 10:0 3:54 EST 5 Respiratory rate 20.00 /min Wed Feb 12 10:0 3:54 EST 5 Systolic Blood Pressure 126.00 mm[Hg] Wed Feb 12 09:18:35 EST 5 Diastolic Blood Pressure 58.00 mm[Hg] Wed Feb 12 09:18:35 EST 5 Heart Rate 69.00 /min Wed Feb 12 09:18 :35 EST 5 Systolic Blood Pressure 153.00 mm[Hg] Wed Feb 12 00:09:33 EST 5 Diastolic Blood Pressure 71.00 mm[Hg] Wed Feb 12 00:09:33 EST 5 Pulse Oximetry 97.00 % Sat Feb 12 00:09 :33 EST 2025 Heart Rate 72.00 /min Wed Feb 12 00:09 :33 EST 5 Body temperature 97.60 [degF] Wed Feb 12 00:0 9:33 EST 2025 Respiratory rate 20.00 /min Wed Feb 12 00:0 9:33 EST 2025 Systolic Blood Pressure 154.00 mm[Hg] e Feb 11 08:46:44 EST 2025 Diastolic Blood Pressure 81.00 mm[Hg] Sat Feb 08:46:44 EST 5 Pulse Oximetry 94.00 % Sat Feb 08:46 :44 EST 5 Heart Rate 76.00 /min Sat Feb 08:46 :44 EST 5 Body temperature 98.10 [degF] Sat Feb 08:4 6:44 EST 2025 Respiratory rate 20.00 /min Sat Feb 08:4 6:44 EST 5 Systolic Blood Pressure 154.00 mm[Hg] Sat Feb 08:43:55 EST 5 Diastolic Blood Pressure 81.00 mm[Hg] Sat Feb 08:43:55 EST 5 Heart Rate 76.00 /min Sat Feb 08:43 :55 EST 5 Systolic Blood Pressure 154.00 mm[Hg] Sat Feb 10 23:35:55 EST 2025 Diastolic Blood Pressure 71.00 mm[Hg] Sat Feb 10 23:35:55 EST 5 Pulse Oximetry 94.00 % Sat Feb 10 23:35 :55 EST 2025 Heart Rate 71.00 /min Sat Feb 10 23:35 :55 EST 2025 Body temperature 98.30 [degF] Sat Feb 10 23:3 5:55 EST 2025 Respiratory rate 18.00 /min Sat Feb 10 23:3 5:55 EST 5 Systolic Blood Pressure 155.00 mm[Hg] Mon Feb 10 16:32:00 EST 5 Diastolic Blood Pressure 78.00 mm[Hg] Sat Feb 10 16:32:00 EST 2025 Pulse Oximetry 96.00 % Sat Feb 10 16:32 :00 EST 2025 Heart Rate 71.00 /min Sat Feb 10 16:32 :00 EST 2024 Body Height 63.00 [in_i] Mon Feb 10 16:32 :00 EST 2024 Body weight 180.40 [lb_av] SatMay 11 16:32 :00 EST 2024 Body temperature 98.20 [degF] SatMay 11 16:3 2:00 EST 2024 Respiratory rate 18.00 /min SatMay 11 16:3 2:00 EST 2024 Reason for Referral Past Medical History Resolved Concerns * 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
--- OUTSIDE RECORDS SUMMARY | 2024-10-05 12:14 | XMS_ITS ---
Author Name Auto Generated, Auto Generated Organization [facility] Address [address] [place] [address] Phone [phone] Care Team Providers Care Research Neuropsychologist Name Role Phone May Carrillo Unavailable AaliyahDiana fagan Unavailable [phone] Functional Status No Results Mental Status No Results Allergies and Intolerances Name Onset Date Reaction Severity hydrocodone (Allergy) SatJan 10 19:57:00 EDT 20 23 levofloxacin (Allergy) SatJan 10 19:57:00 EDT 2 023 alendronate sodium (Allergy) SatJan 10 19:56:00 EDT 2022 Encounters Program Name Primary Diagnosis Admission Date/Time Dis charge Date/Time [facility] Sat[facility] [...] 2022 * End Date: * Text: * [facility]ent[facility] (current) use of anticoagulants* Code: * Start [...] * Text: * Atherosclerotic heart disease of [place] coronary artery with other forms of angina [...] 2024 * End Date: * Text: * [id number] Maude receiving mechanically altered diet. (12)* Code: * Start Date: SatMay 19 00:00:00 EST 2024 * End Date: * Text: [id number] Maude receiving mechanically altered diet. 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 EST 2024 Diastolic Blood Pressure 77.00 mm[Hg] [facility] May 30 14:36:01 EST 2024 Pulse Oximetry 91.00 % [facility] May 30 14:36 :01 EST 2024 Heart Rate 77.00 /min [facility] May 30 14:36 :01 EST 2024 Body temperature 97.30 [degF] [facility] May 30 14:3 6:01 EST 2024 Respiratory rate 18.00 /min [facility] May 30 14:3 6:01 EST 2024 Systolic Blood Pressure 150.00 mm[Hg] [facility] May 30 09:59:14 EST 2024 Diastolic Blood Pressure 17.00 mm[Hg] [facility] May 30 09:59:14 EST 2024 Heart Rate 77.00 /min [facility] May 30 09:59 :14 EST 2024 [...] 2:43 EST 2024 Body weight 179.10 [lb_av] Rosam Feb 27 17:11 :37 EST 2024 Systolic [...] Concerns * 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
--- OUTSIDE RECORDS SUMMARY | 2024-10-05 12:14 | XMS_ITS | Clinical Summary ---
Author Organization [facility] Address [address] [place] [address] Phone Care Team Providers Care Hosiery Mender Name Role Phone Milagros Haq MD Primary Care Provider [phone] Allergies Active Allergy Reactions Criticality Noted Date [...] 9 Active nitroglycerin (NITROMIST) 400 mcg/spray Aerosol, [place] place 1 spray by translingual route onto [...] MD (General) Referring Provider: Milagros Haq MD [address] [place] [address] Other: Problem Noted Date Diagnosed Date Inversion [...] 1-dose 75+ series) 2013 INFLUENZA VACCINE (#1) [address] [place] [address] [facility] [id number] [place] [address] Care Teams Hosiery Mender Relationship Specialty Start Date End Date Milagros Haq MD [address] [place] [id number] PCP - General Family Practice 07/18/12
--- OUTSIDE RECORDS SUMMARY | 2024-10-05 12:14 | XMS_ITS | Clinical Summary ---
Author Organization [facility] Address [address] [place] [id number] Care Team Providers Care Ui Developer Designer Name Role Phone Unavailable Primary Care Provider [...] on patient's age to complete this topic Insurance [facility]
--- OUTSIDE RECORDS SUMMARY | 2024-10-05 12:14 | XMS_ITS | Data Portability ---
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 Completed 1 liter of NS. D/C peripheral IV. Urine cx from [facility] pending. UA here was unconcerning. Restart Augmentin through 06/09 for recurrence of cholecystitis. Call out to Dr. Mckenzie (surgeon), reviewed CT from ER, gave okay for PRN celia-tube flushes, does not feel at this point that her cholangiogram needs to be moved up from 06/09 but requested we contact his office should she have another decline. [email or web address] Not available 06/03/2024 09:46:50 06/03/2024 06/03/2024 Urine cx from [facility] pending. [email or web address] Not available 06/03/2024 16:02:45 06/08/2024 06/08/2024 Labs (CBC, CMP, CRP) on 06/09. Dr. Aviles extended Celecoxib course x 5 more days. Voiding trial. [email or web address] Not available 06/08/2024 17:20:12 06/10/2024 06/10/2024 Daughter Jodi is waiting convenience recycle center tech from Dr. Mckenzie's office to discuss results of yesterday's cholangiogram and plan moving forward. [email or web address] Not available 06/10/2024 15:12:36 Plan of Treatment [...] By Organization Details Last Modified Time 05/31/2024 [id number] I spent >50 minutes providing care to the patient today. More than 50% of that time was spent in discussing the expected course of the disease, discussing prognosis, coordinating care and counseling of the patient/family. Of note, the patient's antibiotics have been held today by estate administrator/DON orders as urine culture results are [...] to continue antibiotics for now to the estate administrator via text message today at 1315. [email or web address] Not available 06/03/2024 06:40:07 06/01/2024 [id number] I spent 47 minut es providing care to the patient today. More than 50% of that time was spent in discussing the expected course of the disease, discussing prognosis, coordinating care and counseling of the patient/family. ron Not available 06/02/2024 09:19:48 06/03/2024 [id number] I spent 36 minut es providing care to the patient today. More than 50% of that time was spent in discussing the expected course of the disease, discussing prognosis, coordinating care and counseling of the patient/family. [email or web address] Not available 06/03/2024 16:06:15 06/08/2024 [id number] I spent 37 minut es providing care to the patient today. More than 50% of that time was spent in discussing the expected course of the disease, discussing prognosis, coordinating care and counseling of the patient/family. Not available 06/08/2024 16:23:24 06/10/2024 [id number] I spent 36 minut es providing care to the patient today. More [...] No observ ation record ed. [facility] [facility] [address], [place], [address], 05/29/2024 09:44:02 05/27/1905/27/2024 XR, lumbo sacra l spine No observ ation record ed. [facility] [address], [place], [address], 05/29/2024 09:44:12 05/28/1905/27/2024 XR, chest , 2 view No observ ation record ed. [facility] [address] , [place], [address], 05/29/2024 09:44:25 Result Notes None recorded. Procedures Surgical History Date Name Laterality Status Provider Name and Address Organization Details Recorded Time 05/06/19 percutaneous [place] [address] [facility], [place], [address], [facility] 05/12/2024 16:27:51 cardiac catheterization completed Marina Shaikh [employer] [facility] 05/13/2024 14:14:34 [facility] 05/13/2024 14:15:03 [facility] 05/13/2024 14:15:20 [facility] 05/13/2024 14:15:30 [facility] 05/13/2024 14:15:39 Imaging Results None recorded. Procedure Notes None recorded. Medical Equipment None Reported. Allergies Allergen ID Allergen Name Allergen Category Reaction Reaction Severity Criticality Documentation Date Start Date Code Code System Note Provider Name and Address Organization Details Recorded Time 97133 alendrona te sodium medicatio n Not available Not available Not available 05/12/2024 2 [facility] 01:57[facility]38 79294 hydrocodo ne Not available Not available Not available Not available 05/12/2024 5489 [facility] 5 01:57:46 31972 levofloxa iliana medicatio n Not available Not available Not available 05/12/2024 14714 [facility] 01:57:51 Medications Name Sig Start Date Stop Date [...] TAKE ONE CAPSULE BY MOUTH EVERY DAY 2024 active Not Available Not Available Not [...] flow rate Respiratory rate Body temperature Systolic And Diastolic Provider Name and Address Organization Details Last Updated DateTime 5 160.02 cm 31.7 kg/m2 89489.7 5 g 69 /min 99 % 99 % 2 L/min 18 /min 97.6 [degF] 137/77 mm[Hg] [place] [address] [place], [address], [facility] [employer] 5 02:50:59 Date Recorded Body height Heart rate Body temperature Respiratory rate Oxygen saturation Oxygen saturation in Arterial blood by Pulse oximetry Body mass index (BMI) Body weight Systolic And Diastolic Provider Name and Address Organization Details Last Updated DateTime 5 160.02 cm 79 /min 98.2 [degF] 18 /min 96 % 96 % 32 kg/m2 10243.7 8 g 155/69 mm[Hg] [place] [address] [place], [address], [facility] [employer] 5 15:48:05 Date Recorded Body height Heart rate Body temperature Respiratory rate Oxygen saturation Oxygen saturation in Arterial blood by Pulse oximetry Body mass index (BMI) Body weight Systolic And Diastolic Provider Name and Address Organization Details Last Updated DateTime 5 160.02 cm 84 /min 97.8 [degF] 18 /min 93 % 93 % 32 kg/m2 48732.7 8 g 152/68 mm[Hg] [place] [address] [place], [address], [facility] [employer] 5 15:55:01 Date Recorded Body height Heart rate Body temperature Respiratory rate Oxygen saturation Oxygen saturation in Arterial blood by Pulse oximetry Body mass index (BMI) Body weight Systolic And Diastolic Provider Name and Address Organization Details Last Updated DateTime 5 160.02 cm 79 /min 97.5 [degF] 16 /min 96 % 96 % 31.1 kg/m2 88338.7 4 g 124/71 mm[Hg] [place] [address] [facility], [place], [address], [facility] 16:10:35 Date Recorded Body height Heart rate Body temperature Respiratory rate Oxygen saturation Oxygen saturation in Arterial blood by Pulse oximetry Body mass index (BMI) Body weight Systolic And Diastolic Provider Name and Address Organization Details Last Updated DateTime 160.02 cm 88 /min 97.9 [degF] 18 /min 95 % 95 % 31.3 kg/m2 05931.4 1 g 142/61 mm[Hg] [place] [address] [place], [address], [facility] 15:01:31 Social History Question Answer Notes LastModified by [employer] Details LastModified Time Tobacco Smoking [place] [address] [place], [address], [facility] 05/12/2024 14:21:47 What Is Your Code Status? Full Code [email or web address] Information not available 05/12/2024 What Was The Date Of Your Most Recent Tobacco Screening? 05/12/2024 Information not available 05/12/2024 What Is Your Relationship Status? Information not available 05/12/2024 Sex: Unknown Functional Status Question Answer Note LastModified by [employer] Details LastModified Time Do you use any illicit or recreational drugs? No Information not available 05/12/2024 What is your level of alcohol consumption? None Information not available 05/12/2024 Mental Status None recorded. Family History Relationship Description Onset Age of this Age Resolved Age Notes LastModified by Organization Details LastModified Time Father Malignant neoplasm of lung [email or web address] Not available 2024 14:13:50 Sister Malignant tumor of breast [email or web address] Not available 2024 14:14:12 Medical History Condition Response Osteoarthritis / DJD Y Coronary Artery Disease (CAD) Y Hypothyroidism Y Vitamin B12 Deficiency Y Diabetes Y Allergic Rhinitis Y Hyperlipidemia Y Vitamin D Deficiency Y GERD / Reflux Y Hypertension Y Gynecological HistoryNo gynecological history recorded. Obstetrics History GPAL:G 0 P 0 0 0 0 Past Encounters Encounter ID Performer Location Encounter Start Date Encounter Closed Date Diagnosis/Indication Diagnosis SNOMED-CT Code Diagnosis ICD10 Code Diagnosis Note [id number] Diana PoeDO [place] [address] [place] [address] 05/12/2024 10:12:13 05/25/2024 11:48:21 Pressure injury of buttock 190447983 L89.309 Developed in April 2023 during COVID-19 [...] prophylaxi s.Pt follows with Dr. Olson at [facility] as OP, last seen in Jan 2024. Daughter is unclear if they will f/u with him at hospital discharge vs. attempt to find a cardiologi st closer to home. Pneumonia caused by SARS-CoV-2 1337016096 56703846 J12.82 Dx with covid-19 on 03/30, dx with pneumonia on 04/08.Treate d OP with PO antibiotic s, steroids, and cough medication s.Symptoms had resolved by 04/28.Kirill Rodríguezbs to PRN -- pt does not use as OP and daughter isn't clear why these were being given while inpatient. Pt did not have any respirator y concerns while inpatient. Physical deconditioning 8662368134 9102 R68.89 Related to age, recent inpatient stay, and multiple comorbidit ies. Continue PT/OT/ST and monitor progress. Goal is for pt to return home with daughter. Continue PRN cathartics for constipati on per standing orders. Essential hypertension 87671220 I10 Stable at present. OP Losartan & HCTZ were discontinu ed. Pt has been started on Metoprolol for rate-contr ol of Afib.Jc nue to trend blood pressures, monitor lytes and renal function, and adjust meds as clinically indicated. Hyperlipidemia 00817182 E78.5 Presumed stable. Continue Atorvastat in. Coronary arteriosclerosis 96004720 I25.[address] Olson at [facility]. Takes PRN NTG as OP for stable angina about 1x/week. RADHA while inpatient was mostly unremarkab le = LV systolic function normal, EF 55-60%. Mildly increased LV wall thickness. RV systolic function normal. LA chamber dimension moderately enlarged. Mild tricuspid valve regurg.Sta ble at present without concerns. Continue Metoprolol , Ranexa, & PRN NTG.F/U with cards as OP. Stable angina 625304715 I20.89 SEE ABOVE... Prediabetes 279302569 R7 3.03 Details unclear. Continue to monitor blood sugars on bloodwork. Hypothyroidism 37425115 E03.9 Presumed stable. Continue Levothyrox ine. Osteoarthritis 428526670 M19.90 Stable. Continue PRN APAP. Gastroesop hageal reflux disease without esophagitis 277616704 K21.9 Stable. Continue Omeprazole and PRN Zofran. Migraine 79690010 G43.90 9 Per daughter, with aura of spotty vision.Sta ble. Continue Amitriptyl ine at bedtime. Allergic rhinitis 909234 04 J30.9 Per history. Not presently on medication s. Monitor. 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 Continue supplement . Vitamin D deficiency 347 47169 E55.9 Per history. Not on supplement . Herpes labialis 1045928 B00.1 Abreva x 3 days or until healed. Retention of urine 57102 4002 R33.9 Failed voiding trial on 05/10. As such, she has transferre d to our facility with a valle catheter.Anastasiia Aviles started Flomax.Antwon l need voiding trial once more ambulatory . Dysphagia 75254574 R13.1 0 Some concerns while inpatient. Per daughter, MBS was unconcerni ng.She has been discharged on mechanical soft diet with thin liquids.ST to follow. [id number] Diana Poe, DO [address] [place] [address] 05/14/2024 18:57:55 05/25/2024 11:49:54 Acute cholecystitis 81459228 K81.0 Initially attempted supportive treatment with IV [...] prophylaxi s.Pt follows with Dr. Olson at [facility] as OP, last seen in Jan 2024. Daughter plans to schedule f/u appointmen t after d/c from [facility] Pneumonia caused by SARS-CoV-2 5975779313 94571688 J12.82 Dx with covid-19 on 03/30, dx with pneumonia on 04/08.Treate d OP with PO antibiotic s, steroids, and cough medication s.Symptoms had resolved by 04/28.Jc nue Duonebs to PRN Retention of urine 29380 4002 R33.9 Failed voiding trial on 05/10. As such, she has transferre d to our facility with a valle catheter.Anastasiia Aviles started Flomax.fol ey catheter removed earlier today Pressure i njury of buttock 976248354 L89.309 Developed in April 2023 during COVID-19 pneumonia. Continue to offload pressure and treat with foam dressing daily.Woun d care to follow in-house. Herpes labialis 4379480 B00.1 Abreva x 3 days or until healed Essential hypertension 92206337 I10 Stable at present. OP Losartan & HCTZ were discontinu ed. Pt has been started on Metoprolol for rate-contr ol of Afib.Jc nue to trend blood pressures, monitor lytes and renal function, and adjust meds as clinically indicated. Hyperlipidemia 01136397 E78.5 Presumed stable. Continue Atorvastat in. Coronary arteriosclerosis 97115079 I25.[address] Olson at [facility]. Takes PRN NTG as OP for stable angina about 1x/week. RADHA while inpatient was mostly unremarkab le = LV systolic function normal, EF 55-60%. Mildly increased LV wall thickness. RV systolic function normal. LA chamber dimension moderately enlarged. Mild tricuspid valve regurg.Sta ble at present without concerns. Continue Metoprolol , Ranexa, & PRN NTG.F/U with cards as OP. Stable angina 285507420 I20.89 SEE ABOVE... Hypothyroidism 07242109 E03.9 Presumed stable. Continue Levothyrox ine. Osteoarthritis 784292148 M19.90 Stable. Continue PRN APAP. Dysphagia 37204408 R13.1 0 Some concerns while inpatient. Per daughter, MBS was un-concern ing.She has been discharged on mechanical soft diet with thin liquids.ST to follow. Gastroesop hageal reflux disease without esophagitis 271277374 K21.9 Stable. Continue Omeprazole and PRN Zofran. Migraine 35734228 G43.90 9 Per daughter, with aura of spotty vision.Sta ble. Continue Amitriptyl ine at bedtime. Prediabetes 382129102 R7 3.03 Details unclear. Continue to monitor blood sugars on bloodwork. Allergic rhinitis 015431 04 J30.9 Per history. Not presently on medication s. Monitor. Disorder o f vitamin B12 396024701 E53.8 Presumed stable. Continue supplement . Vitamin D deficiency 347 63010 E55.9 Per history. Not on supplement . Physical deconditioning 5304614461 9102 R68.89 Related to age, recent inpatient stay, and multiple comorbidit ies. Continue PT/OT/ST and monitor progress. Goal is for pt to return home with daughter. Continue PRN cathartics for constipati on per standing orders. [id number] Diana Poe, PAC [facility] [address] [address] 05/19/2024 08:28:41 05/25/2024 11:49:06 Acute cholecystitis 23817726 K81.0 Initially attempted supportive treatment with IV [...] prophylaxi s.Pt follows with Dr. Olson at [facility] as OP, last seen in Jan 2024. Daughter plans to schedule f/u appointmen t after d/c from [facility]. Pneumonia caused by SARS-CoV-2 8975357888 16738804 J12.82 Dx with covid-19 on 03/30, dx with pneumonia on 04/08.Treate d OP with PO antibiotic s, steroids, and cough medication s.Symptoms had resolved by 04/28.Jc nue Duonebs to PRN Retention of urine 02046 4002 R33.9 Failed voiding trial on 05/10. As such, she was transferre d to our facility with a valle catheter. Reattempte d with Flomax on 05/14 and has been successful ly voiding. Flomax has been stopped.Mo nitor for recurrence . Pressure i njury of buttock 107476406 L89.309 Developed in April 2023 during COVID-19 pneumonia. Continue to offload pressure and treat with foam dressing daily.Woun d care to follow in-house. Herpes labialis 6701398 B00.1 Healed with Abreva. Essential hypertension 81038594 I10 Stable at present. OP Losartan & HCTZ were discontinu ed. Pt has been started on Metoprolol for rate-contr ol of Afib.Jc nue to trend blood pressures, monitor lytes and renal function, and adjust meds as clinically indicated. Hyperlipidemia 12896008 E78.5 Presumed stable. Continue Atorvastat in. Coronary arteriosclerosis 33043425 I25.[address] OP [address] Olson at [facility]. Takes PRN NTG as OP for stable angina about 1x/week. RADHA while inpatient was mostly unremarkab le = LV systolic function normal, EF 55-60%. Mildly increased LV wall thickness. RV systolic function normal. LA chamber dimension moderately enlarged. Mild tricuspid valve regurg.Sta ble at present without concerns. Continue Metoprolol , Ranexa, & PRN NTG.F/U with cards as OP. Stable angina 158893893 I20.89 SEE ABOVE... Hypothyroidism 73839663 E03.9 Presumed stable. Continue Levothyrox ine. Osteoarthritis 797507699 M19.90 Stable. Continue PRN APAP. Dysphagia 52987732 R13.1 0 Some concerns while inpatient. Per daughter, MBS was un-concern ing.She has been discharged on mechanical soft diet with thin liquids.ST to follow. Gastroesop hageal reflux disease without esophagitis 052072735 K21.9 Stable. Continue Omeprazole and PRN Zofran. Migraine 38037909 G43.90 9 Per daughter, with aura of spotty vision.Sta ble. Continue Amitriptyl ine at bedtime. Prediabetes 141406416 R7 3.03 Details unclear. Continue to monitor blood sugars on bloodwork. Allergic rhinitis 067043 04 J30.9 Per history. Not presently on medication s. Monitor. Disorder o f vitamin B12 496717263 E53.8 Presumed stable. Continue supplement . Vitamin D deficiency 347 97660 E55.9 Per history. Not on supplement . Physical deconditioning 5621341682 9102 R68.89 Related to age, recent inpatient stay, and multiple comorbidit ies. Continue PT/OT/ST and monitor progress. Goal is for pt to return home with daughter. Continue PRN cathartics for constipati on per standing orders. [id number] Diana Poe DO [address] [place] [address] 05/25/2024 12:43:05 06/08/2024 21:37:29 Lumbar spondylosis 203430322 M47.896 Increase routine APAP to 1000 mg TID.Increa se PRN Cyclobenza clay to 10 mg q8hrs PRN. Monitor for drowsiness (pt denies thus far).Add Lidocaine patch daily.If no improvemen t, may need to advance to PRN Tramadol.I f pain does not improve or worsens, will check Thoracic & Lumbar XRs. Burst frac ture of lumbar vertebra 647386348 S32.021S Old, noted on imaging incidental ly [...] prophylaxi s.Pt follows with Dr. Olson at [facility] as OP, last seen in Jan 2024. Daughter plans to schedule f/u appointmen t after d/c from [facility]. Pneumonia caused by SARS-CoV-2 5292262872 55394630 J12.82 Dx with covid-19 on 03/30, dx with pneumonia on 04/08.Treate d OP with PO antibiotic s, steroids, and cough medication s.Symptoms had resolved by 04/28.Jc nue Duonebs to PRN Retention of urine 67705 4002 R33.9 Failed voiding trial on 05/10. As such, she was transferre d to our facility with a valle catheter. Reattempte d with Flomax on 05/14 and has been successful ly voiding. Flomax has been stopped.Mo nitor for recurrence . Pressure i njury of buttock 880104973 L89.309 Developed in April 2023 during COVID-19 pneumonia. Continue to offload pressure and treat with foam dressing daily.Woun d care to follow in-house. Herpes labialis 8490133 B00.1 Healed with Abreva. Essential hypertension 10056362 I10 Stable at present. OP Losartan & HCTZ were discontinu ed. Pt has been started on Metoprolol for rate-contr ol of Afib.Jc nue to trend blood pressures, monitor lytes and renal function, and adjust meds as clinically indicated. Hyperlipidemia 13461582 E78.5 Presumed stable. Continue Atorvastat in. Coronary arteriosclerosis 91431148 I25.[address] OP [address] Olson at [facility]. Takes PRN NTG as OP for stable angina about 1x/week. RADHA while inpatient was mostly unremarkab le = LV systolic function normal, EF 55-60%. Mildly increased LV wall thickness. RV systolic function normal. LA chamber dimension moderately enlarged. Mild tricuspid valve regurg.Sta ble at present without concerns. Continue Metoprolol , Ranexa, & PRN NTG.F/U with cards as OP. Stable angina 271612708 I20.89 SEE ABOVE... Hypothyroidism 48469142 E03.9 Presumed stable. Continue Levothyrox ine. Osteoarthritis 223532475 M19.90 Stable. Continue PRN APAP. Dysphagia 87877947 R13.1 0 Some concerns while inpatient. Per daughter, MBS was un-concern ing.She has been discharged on mechanical soft diet with thin liquids.ST to follow. Gastroesop hageal reflux disease without esophagitis 410134792 K21.9 Stable. Continue Omeprazole and PRN Zofran. Migraine 44571545 G43.90 9 Per daughter, with aura of spotty vision.Sta ble. Continue Amitriptyl ine at bedtime. Prediabetes 915820598 R7 3.03 Details unclear. Continue to monitor blood sugars on bloodwork. Allergic rhinitis 655738 04 J30.9 Per history. Not presently on medication s. Monitor. Disorder o f vitamin B12 090482169 E53.8 Presumed stable. Continue supplement . Vitamin D deficiency 347 35291 E55.9 Per history. Not on supplement . Physical deconditioning 2230855645 9102 R68.89 Related to age, recent inpatient stay, and multiple comorbidit ies. Continue PT/OT/ST and monitor progress. Goal is for pt to return home with daughter. Continue PRN cathartics for constipati on per standing orders. [id number] Diana Poe, DO [facility] [address] [place] [address] 05/27/2024 13:50:28 06/08/2024 21:38:11 Lumbar spondylosis 113034441 M47.896 Continue routine APAP to 1000 mg TID, Lidocaine patch, and schedule Cyclobenza clay qAM before therapy. Continue PRN dosing, as well. Monitor for drowsiness (pt denies thus far).Obtai n Lumbar Spine XR.If no improvemen t, may need to advance to PRN Tramadol. Burst frac ture of lumbar vertebra 435931261 S32.021S Old, noted on imaging incidental ly [...] prophylaxi s.Pt follows with Dr. Olson at [facility] as OP, last seen in Jan 2024. Daughter plans to schedule f/u appointmen t after d/c from [facility]. Pneumonia caused by SARS-CoV-2 3058337179 72183406 J12.82 Dx with covid-19 on 03/30, dx with pneumonia on 04/08.Treate d OP with PO antibiotic s, steroids, and cough medication s.Symptoms had resolved by 04/28.Jc nue Duonebs to PRN Retention of urine 05967 4002 R33.9 Failed voiding trial on 05/10. As such, she was transferre d to our facility with a valle catheter. Reattempte d with Flomax on 05/14 and has been successful ly voiding. Flomax has been stopped.Mo clemente for recurrence . Pressure i njury of buttock 940962457 L89.309 Developed in April 2023 during COVID-19 pneumonia. Continue to offload pressure and treat with foam dressing daily.Woun d care to follow in-house. Essential hypertension 65982786 I10 Stable at present. OP Losartan & HCTZ were discontinu ed. Pt has been started on Metoprolol for rate-contr ol of Afib.Jc nue to trend blood pressures, monitor lytes and renal function, and adjust meds as clinically indicated. Hyperlipidemia 40160494 E78.5 Presumed stable. Continue Atorvastat in. Coronary arteriosclerosis 49554994 I25.10 [address] OP [address] Olson at [facility]. Takes PRN NTG as OP for stable angina about 1x/week. RADHA while inpatient was mostly unremarkab le = LV systolic function normal, EF 55-60%. Mildly increased LV wall thickness. RV systolic function normal. LA chamber dimension moderately enlarged. Mild tricuspid valve regurg.Sta ble at present without concerns. Continue Metoprolol , Ranexa, & PRN NTG.F/U with cards as OP. Stable angina [id number] I20.89 SEE ABOVE... Hypothyroidism 91783943 E03.9 Presumed stable. Continue Levothyrox ine. Osteoarthritis 579907216 M19.90 Stable. Continue PRN APAP. Dysphagia 27553451 R13.1 0 Some concerns while inpatient. Per daughter, MBS was un-concern ing.She has been discharged on mechanical soft diet with thin liquids.ST to follow. Gastroesop hageal reflux disease without esophagitis 413811412 K21.9 Stable. Continue Omeprazole and PRN Zofran. Migraine 77888892 G43.90 9 Per daughter, with aura of spotty vision.Sta ble. Continue Amitriptyl ine at bedtime. Prediabetes 736137334 R7 3.03 Details unclear. Continue to monitor blood sugars on bloodwork. Allergic rhinitis 009048 04 J30.9 Per history. Not presently on medication s. Monitor. Disorder o f vitamin B12 958561573 E53.8 Presumed stable. Continue supplement . Vitamin D deficiency 347 30713 E55.9 Per history. Not on supplement . Herpes labialis 8593144 B00.1 Healed with Abreva. Physical deconditioning 8596827403 9102 R68.89 Related to age, recent inpatient stay, and multiple comorbidit ies. Continue PT/OT/ST and monitor progress. Goal is for pt to return home with daughter. Continue PRN cathartics for constipati on per standing orders. Hypokalemia 66726619 E87 .6 Give KCl 40 meq x 1 dose. Lung field abnormal 2747 84782 R91.8 Obtain CXR.Respir atory status is stable.Mon itor closely. [id number] Diana Poe, DO [address] [address] 05/29/2024 17:15:58 06/14/2024 16:20:22 Lumbar spondylosis 240640678 M47.896 Pt has known compressio n fracture diagnosed at ER visit in Jan 2023. She has not suffered back pain after this and never establishe d with pain mgt. or spinal specialist . CT chest/abd/ pelvis on 05/05 noted chronic compressio n fracture of L2... severe lower lumbar spondylosi s.Pt did not initially present with lumbar back [...] Disc herniation cannot be excluded by plain film.For now, continue APAP, Lidocaine patch, and PRN Flexeril. Daughter wants PRN Tramadol stopped due to concern causing sedation and also not helping.Th erapy to utilize heating pad PRN.Spinal precaution s.Dr. Aviles started her on Calcitonin spray x 14 days (06/11).Ref er to pain management at [facility]. Burst frac ture of lumbar vertebra 295121170 S32.021S Old, noted on imaging incidental ly [...] prophylaxi s.Pt follows with Dr. Olson at [facility] as OP, last seen in Jan 2024. Daughter plans to schedule f/u appointmen t after d/c from [facility]. Pneumonia caused by SARS-CoV-2 [id number] 76619451 J12.82 Dx with covid-19 on 03/30, dx with pneumonia on 04/08.Treate d OP with PO antibiotic s, steroids, and cough medication s.Symptoms had resolved by 04/28.Jc nue Duonebs to PRN Retention of urine 46732 4002 R33.9 Failed voiding trial on 05/10. As such, she was transferre d to our facility with a valle catheter. Reattempte d voiding trial with Flomax on 05/14 and has been successful ly voiding. Flomax has been stopped.Mo julitoor for recurrence . Pressure i njury of buttock 462969718 L89.309 Developed in April 2023 during COVID-19 pneumonia. Continue to offload pressure and treat with foam dressing daily.Woun d care to follow in-house. Essential hypertension 38640852 I10 Stable at present. OP Losartan & HCTZ were discontinu ed. Pt has been started on Metoprolol for rate-contr ol of Afib.Jc nue to trend blood pressures, monitor lytes and renal function, and adjust meds as clinically indicated. Hyperlipidemia 73228402 E78.5 Presumed stable. Continue Atorvastat in. Coronary arteriosclerosis 53295009 I25.[address] OP [address] Olson at [facility]. Takes PRN NTG as OP for stable angina about 1x/week. RADHA while inpatient was mostly unremarkab le = LV systolic function normal, EF 55-60%. Mildly increased LV wall thickness. RV systolic function normal. LA chamber dimension moderately enlarged. Mild tricuspid valve regurg.Sta ble at present without concerns. Continue Metoprolol , Ranexa, & PRN NTG.F/U with cards as OP. Stable angina 832283503 I20.89 SEE ABOVE... Hypothyroidism 06207734 E03.9 Presumed stable. Continue Levothyrox ine. Osteoarthritis 859546340 M19.90 Stable. Continue PRN APAP. Dysphagia 44906894 R13.1 0 Some concerns while inpatient. Per daughter, MBS was un-concern ing.She has been discharged on mechanical soft diet with thin liquids.ST to follow. Gastroesop hageal reflux disease without esophagitis 126433143 K21.9 Stable. Continue Omeprazole and PRN Zofran. Migraine 17496919 G43.90 9 Per daughter, with aura of spotty vision.Sta ble. Continue Amitriptyl ine at bedtime. Prediabetes 362582823 R7 3.03 Details unclear. Continue to monitor blood sugars on bloodwork. BS 90 & 101 thus far. Allergic rhinitis 511765 04 J30.9 Per history. Not presently on medication s. Monitor. 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 Continue supplement . Vitamin D deficiency 347 42659 E55.9 Per history. Not on supplement . Herpes labialis 8714496 B00.1 Healed with Abreva. Physical deconditioning 7200104920 9102 R68.89 Related to age, recent inpatient stay, and multiple comorbidit ies. Continue PT/OT/ST and monitor progress. Goal is for pt to return home with daughter. Continue PRN cathartics for constipati on per standing orders. Edema of l ower extremity 455758449 R60.0 Lasix 40 mg daily x 3 days.KCl 20 meq daily x 3 days.Jc nue BLE rebeca wraps on AM off PM. Encourage elevation of BLE when at rest.Labs on 06/01. [id number] Diana Poe DO [address] [place] [address] 05/31/2024 16:34:55 06/14/2024 16:18:20 Acute urinary tract infection 177775829 N39.0 the patient was treated with IV [...] clinically appropriat e Altered mental status 41 0878248 R41.82 suspect related to aboveavoid sedating meds - pain meds and muscle relaxants have been discontinu ed Lumbar spondylosis 98057 0009 M47.896 Pt has known compressio n fracture diagnosed at ER visit in Jan 2023. She has not suffered back pain after this and never establishe d with pain mgt. or spinal specialist . CT chest/abd/ pelvis on 05/05 noted chronic compressio n fracture of L2... severe lower lumbar spondylosi s.Pt did not initially present with lumbar back [...] Disc herniation cannot be excluded by plain film.For now, continue APAP, Lidocaine patch only - no pain meds or muscle relaxantsT herapy to utilize heating pad PRN.Spinal precaution s.Dr. Aviles started her on Calcitonin spray x 14 days (06/11).Ref erral has been made to pain management at [facility]. Burst frac ture of lumbar vertebra 940426030 S32.021S Old, noted on imaging incidental ly [...] prophylaxi s.Pt follows with Dr. Olson at [facility] as OP, last seen in Jan 2024. Daughter plans to schedule f/u appointmen t after d/c from [facility]. Pneumonia caused by SARS-CoV-2 [id number] 21787879 J12.82 Dx with covid-19 on 03/30, dx with pneumonia on 04/08.Treate d OP with PO antibiotic s, steroids, and cough medication s.Symptoms had resolved by 04/28.She has had the need for supplement al O2 over the recent daysCXR done 05/27 was concerning for possible RLL infiltrate - need to get imaging studies done at [facility] yesterday to see if CT included chest or if repeat CXR was done. If not, might consider repeat here.Jc nue Duonebs to PRN Retention of urine 37536 4002 R33.9 Failed voiding trial on 05/10. As such, she was transferre d to our facility with a valle catheter. Reattempte d voiding trial with Flomax on 05/14 and she had been successful ly voiding.Sh e has had retention again over the recent days with dark/foamy urine and +UA in the ER yesterdayc ontinue valle catheter for now [id number] Diana Poe, DO [address] [place] [address] 06/01/2024 13:40:54 06/21/2024 11:11:55 Altered mental status 043074793 R41.82 Improved. Suspected sec to acute cholecysti tis recurrence .SEE ABOVE... Lumbar spondylosis 55473 0009 M47.896 Pt has known compressio n [...] Disc herniation cannot be excluded by plain film.Cont inue routine APAP & Lidocaine patches.Pa in [...] has been made to pain management at [facility]. Burst frac ture of lumbar vertebra 336367015 S32.021S Old, noted on imaging incidental ly [...] prophylaxi s.Pt follows with Dr. Olson at [facility] as OP, last seen in Jan 2024. Daughter plans to schedule f/u appointmen t after d/c from [facility]. Pneumonia caused by SARS-CoV-2 [id number] 36139606 J12.82 Dx with covid-19 on 03/30, dx with pneumonia on 04/08.Treate d OP with PO antibiotic s, steroids, and cough medication s.Symptoms had resolved by 04/28.She has had the need for supplement al O2 over the recent daysContin ue Duonebs to PRN.SEE ABOVE... Retention of urine 63330 4002 R33.9 Failed voiding trial on 05/10. As such, she was transferre d to our facility with a valle catheter. Reattempte d voiding trial with Flomax on 05/14 and she had been successful ly voiding but she unfortunat christina had recurrence of retention on 05/30, so catheter was replaced.C ontinue catheter care and have restarted Flomax.SEE ABOVE... Asymptomat ic bacteriuria 633664127 R82.71 Patient was treated with IV Rocephin in the ER on 05/30.Contin ues on Augmentin but this for acute cholecysti tis.UA done here on 06/01 (after IV antibiotic dose) did not meet criteria for reflex.Sti ll waiting on urine culture results from [facility] from 05/30. Edema of l ower extremity 828511637 R60.0 Continue BLE rebeca wraps on AM off PM. Encourage elevation of BLE when at rest.Trend labs. Pressure i njury of buttock 050679539 L89.309 Developed in April 2023 during COVID-19 pneumonia. Continue to offload pressure and treat with foam dressing daily.Woun d care to follow in-house. Essential hypertension 85412658 I10 Stable at present. OP Losartan & HCTZ were discontinu ed. Pt has been started on Metoprolol for rate-contr ol of Afib.Jc nue to trend blood pressures, monitor lytes and renal function, and adjust meds as clinically indicated. Hyperlipidemia 50739671 E78.5 Presumed stable. Continue Atorvastat in. Coronary arteriosclerosis 21874654 I25.10 Follow[address] OP [address] Olson at [facility]. Takes PRN NTG as OP for stable angina about 1x/week. RADHA while inpatient was mostly unremarkab le = LV systolic function normal, EF 55-60%. Mildly increased LV wall thickness. RV systolic function normal. LA chamber dimension moderately enlarged. Mild tricuspid valve regurg.Sta ble at present without concerns. Continue Metoprolol , Ranexa, & PRN NTG.F/U with cards as OP. Stable angina 656898061 I20.89 SEE ABOVE... Hypothyroidism 57417005 E03.9 Presumed stable. Continue Levothyrox ine. Osteoarthritis 921337882 M19.90 Stable. Continue PRN APAP. Dysphagia 73620504 R13.1 0 Some concerns while inpatient. Per daughter, MBS was un-concern ing.She has been discharged on mechanical soft diet with thin liquids.ST to follow. Gastroesop hageal reflux disease without esophagitis 858250837 K21.9 Stable. Continue Omeprazole and PRN Zofran. Migraine 72727882 G43.90 9 Per daughter, with aura of spotty vision.Sta ble. Continue Amitriptyl ine at bedtime, dose reduced to 20 mg qhs. Prediabetes 696994471 R7 3.03 Details unclear. Continue to monitor blood sugars on bloodwork. BS 90-100s thus far. Allergic rhinitis 876076 04 J30.9 Per history. Not presently on medication s. Monitor. Disorder o f vitamin B12 855377029 E53.8 Presumed stable. Continue supplement . Vitamin D deficiency 347 55721 E55.9 Per history. Not on supplement . Herpes labialis 7697399 B00.1 Healed with Abreva. Physical deconditioning 3088171817 9102 R68.89 Related to age, recent inpatient stay, and multiple comorbidit ies. Continue PT/OT/ST and monitor progress. Goal is for pt to return home with daughter. Continue PRN cathartics for constipati on per standing orders. Imaging of lung abnormal 348973600 R91.8 05/27 CXR on 05/27 done for [...] vascular redistribu tion associated with recumbent positionin Casandra ovalle it appears that [facility] did not do lung imaging in the ER. She did briefly require oxygen supplement ation just before and during her ER visit, but has since been stable on RA.Continu e Augmentin as above. [id number] Diana Poe DO [address] [address] 06/03/2024 12:08:20 06/08/2024 21:39:14 Acute cholecystitis 07982995 K81.0 Initially attempted supportive treatment with IV [...] 05/26 with NNO. Imaging of lung abnormal 924273169 R91.8 05/27 CXR on 05/27 done for [...] vascular redistribu tion associated with recumbent positionin g.Unfortu nately it appears that [facility] did not do lung imaging in the ER. She did briefly require oxygen supplement ation just before and during her ER visit on 05/30, but has since been stable on RA.Continu e Augmentin as above. Asymptomat ic bacteriuria 424594209 R82.71 Patient was treated with IV Rocephin in the ER on 05/30.Contin ues on Augmentin but this for acute cholecysti tis.UA done here on 06/01 (after IV antibiotic dose) did not meet criteria for reflex.Sti ll waiting on urine culture results from [facility] from 05/30. Lumbar spondylosis 03382 0009 M47.896 Pt has known compressio n [...] Disc herniation cannot be excluded by plain film.Cont inue routine APAP & Lidocaine patches.Pa in [...] has been made to pain management at [facility]. Burst frac ture of lumbar vertebra 444777655 S32.021S Old, noted on imaging incidental ly while inpatient. Jodi believes this occurred prior to Mar 2023.SEE ABOVE... Altered mental status 41 0144828 R41.82 Improved. Suspected sec to acute cholecysti tis recurrence .SEE ABOVE... Atrial fibrillation 4943 6004 I48.91 New-onset while inpatient. Tx with IV heparin & Dilt, spontaneou sly converted. Transition ed to Eliquis & Metoprolol by discharge. Continue Metoprolol for rate-contr ol.Continu e Eliquis for VTE prophylaxi s.Pt follows with Dr. Olson at [facility] as OP, last seen in Jan 2024. Daughter plans to schedule f/u appointmen t after d/c from . Retention of urine 08214 4002 R33.9 Failed voiding trial on 05/10. As such, she was transferre d to our facility with a valle catheter. Reattempte d voiding trial with Flomax on 05/14 and she had been successful ly voiding but she unfortunat christina had recurrence of retention on 05/30, so catheter was replaced.C ontinue catheter care and have restarted Flomax.SEE ABOVE... Edema of l ower extremity 543811366 R60.0 Continue BLE rebeca wraps on AM off PM. Encourage elevation of BLE when at rest.Trend labs. Pressure i njury of buttock 564107177 L89.309 Developed in April 2023 during COVID-19 pneumonia. Continue to offload pressure and treat with foam dressing daily.Woun d care to follow in-house. Essential hypertension 54060745 I10 Stable at present. OP Losartan & HCTZ were discontinu ed. Pt has been started on Metoprolol for rate-contr ol of Afib.Jc nue to trend blood pressures, monitor lytes and renal function, and adjust meds as clinically indicated. Hyperlipidemia 32718945 E78.5 Presumed stable. Continue Atorvastat in. Coronary arteriosclerosis 91255037 I25.[address] Follow[address] OP [address] Olson at [facility]. Takes PRN NTG as OP for stable angina about 1x/week. RADHA while inpatient was mostly unremarkab le = LV systolic function normal, EF 55-60%. Mildly increased LV wall thickness. RV systolic function normal. LA chamber dimension moderately enlarged. Mild tricuspid valve regurg.Sta ble at present without concerns. Continue Metoprolol , Ranexa, & PRN NTG.F/U with cards as OP. Stable angina 451946193 I20.89 SEE ABOVE... Hypothyroidism 11766215 E03.9 Presumed stable. Continue Levothyrox ine. Osteoarthritis 038899601 M19.90 Stable. Continue PRN APAP. Dysphagia 18726112 R13.1 0 Some concerns while inpatient. Per daughter, MBS was unconcerni ng.She has been discharged on mechanical soft diet with thin liquids.ST to follow. Gastroesop hageal reflux disease without esophagitis 052889147 K21.9 Stable. Continue Omeprazole and PRN Zofran. Migraine 90427362 G43.90 9 Per daughter, with aura of spotty vision.Sta ble. Continue Amitriptyl ine at bedtime, dose reduced to 20 mg qhs. Prediabetes 562251119 R7 3.03 Details unclear. Continue to monitor blood sugars on bloodwork. BS 90-100s thus far. Allergic rhinitis 651591 04 J30.9 Per history. Not presently on medication s. Monitor. Disorder o f vitamin B12 476410147 E53.8 Presumed stable. Continue supplement . Vitamin D deficiency 347 23649 E55.9 Per history. Not on supplement . Herpes labialis 0645419 B00.1 Healed with Abreva. Pneumonia caused by SARS-CoV-2 8942548115 55279018 J12.82 Dx with covid-19 on 03/30, dx with pneumonia on 04/08.Treate d OP with PO antibiotic s, steroids, and cough medication s.Symptoms had resolved by 04/28.She has had the need for supplement al O2 over the recent daysContin ue Duonebs to PRN.SEE ABOVE... Physical deconditioning 8411126209 9102 R68.89 Related to age, recent inpatient stay, and multiple comorbidit ies. Continue PT/OT/ST and monitor progress. Goal is for pt to return home with daughter. Continue PRN cathartics for constipati on per standing orders. [id number] Diana Poe, DO [address] [address] 06/08/2024 10:22:03 06/20/2024 07:26:41 Acute cholecystitis 73207202 K81.0 Initially attempted supportive treatment with IV [...] 05/26 with NNO. Imaging of lung abnormal 205326804 R91.8 05/27 CXR on 05/27 done for [...] vascular redistribu tion associated with recumbent positionin g.Unfortu nately it appears that [facility] did not do lung imaging in the ER. She did briefly require oxygen supplement ation just before and during her ER visit on 05/30, but has since been stable on RA.Continu e Augmentin as above. Asymptomat ic bacteriuria 064474511 R82.71 Patient was treated with IV Rocephin in the ER on 05/30.Contin ues on Augmentin but this for acute cholecysti tis.UA done here on 06/01 (after IV antibiotic dose) did not meet criteria for reflex.Uri ne culture results from [facility] from 05/30 only grew 10-49,0000 nakita albicans. Lumbar spondylosis 20390 0009 M47.896 Pt has known compressio n [...] interverte bral foraminal narrowing and with compressio n.Added PRN Flexeril & Tramadol -- both were ineffectiv e and concern contribute d to mental status change, so have d/ray both.Jc nue routine APAP & Lidocaine patches.Dr Chana Aviles has extended Celecoxib x 5 more days (06/13).Con tinue Calcitonin nasal spray through 06/11.Thera py to utilize heating pad PRN.Contin ue spinal precaution s.Referral has been made to pain management at [facility]. Burst frac ture of lumbar vertebra 893198564 S32.021S SEE ABOVE... Altered mental status 41 8845395 R41.82 Improved. Suspected sec to acute cholecysti tis recurrence .SEE ABOVE... Atrial fibrillation 4943 6004 I48.91 New-onset while inpatient. Tx with IV heparin & Dilt, spontaneou sly converted. Transition ed to Eliquis & Metoprolol by discharge. Continue Metoprolol for rate-contr ol.Continu e Eliquis for VTE prophylaxi s.Pt follows with Dr. Olson at [facility] as OP, last seen in Jan 2024. Daughter plans to schedule f/u appointmen t after d/c from . Retention of urine 63218 4002 R33.9 Failed voiding trial on 05/10. [...] today.SEE ABOVE... Edema of l ower extremity 215601932 R60.0 Continue BLE rebeca wraps on AM off PM. Encourage elevation of BLE when at rest.Trend labs. Pressure i njury of buttock 232848639 L89.309 Developed in April 2023 during COVID-19 pneumonia. Continue to offload pressure and treat with foam dressing daily.Woun d care to follow in-house. Essential hypertension 62650806 I10 Stable at present. OP Losartan & HCTZ were discontinu ed. Pt has been started on Metoprolol for rate-contr ol of Afib.Jc nue to trend blood pressures, monitor lytes and renal function, and adjust meds as clinically indicated. Hyperlipidemia 96178073 E78.5 Presumed stable. Continue Atorvastat in. Coronary arteriosclerosis 91783149 I25.10 Follow[address] OP by Dr. Olson at [facility]. Takes PRN NTG as OP for stable angina about 1x/week. RADHA while inpatient was mostly unremarkab le = LV systolic function normal, EF 55-60%. Mildly increased LV wall thickness. RV systolic function normal. LA chamber dimension moderately enlarged. Mild tricuspid valve regurg.Sta ble at present without concerns. Continue Metoprolol , Ranexa, & PRN NTG.F/U with cards as OP. Stable angina 556728321 I20.89 SEE ABOVE... Hypothyroidism 97350838 E03.9 Presumed stable. Continue Levothyrox ine. Osteoarthritis 988419747 M19.90 Stable. Continue PRN APAP. Dysphagia 18027775 R13.1 0 Some concerns while inpatient. Per daughter, MBS was unconcerni ng.She has been discharged on mechanical soft diet with thin liquids.ST to follow. Gastroesop hageal reflux disease without esophagitis 348693767 K21.9 Stable. Continue Omeprazole and PRN Zofran. Migraine 87772171 G43.90 9 Per daughter, with aura of spotty vision.Sta ble. Continue Amitriptyl ine at bedtime, dose reduced to 20 mg qhs. Prediabetes 369602459 R7 3.03 Details unclear. Continue to monitor blood sugars on bloodwork. BS 90-100s thus far. Allergic rhinitis 373685 04 J30.9 Per history. Not presently on medication s. Monitor. Disorder o f vitamin B12 875893667 E53.8 Presumed stable. Continue supplement . Vitamin D deficiency 347 62417 E55.9 Per history. Not on supplement . Herpes labialis 2163989 B00.1 Healed with Abreva. Pneumonia caused by SARS-CoV-2 1492056444 90876281 J12.82 Dx with covid-19 on 03/30, dx with pneumonia on 04/08.Treate d OP with PO antibiotic s, steroids, and cough medication s.Symptoms had resolved by 04/28.She has had the need for supplement al O2 over the recent daysContin ue Duonebs to PRN.SEE ABOVE... Physical deconditioning 6259110072 9102 R68.89 Related to age, recent inpatient stay, and multiple comorbidit ies. Continue PT/OT/ST and monitor progress. Goal is for pt to return home with daughter. Continue PRN cathartics for constipati on per standing orders. [id number] Diana Lui, DO PAC [address] [address] [place] [address] 06/10/2024 09:34:44 06/20/2024 07:27:23 Acute cholecystitis 43117276 K81.0 Initially attempted supportive treatment with IV [...] appt with Dr. Mckenzie on 05/26 with NNO.[facility] Jodi is waiting convenience [employer] center tech from Dr. Mckenzie's office to discuss results of 06/09's cholangiog william and plan moving forward. Imaging of lung abnormal 757710915 R91.8 05/27 CXR on 05/27 done for [...] vascular redistribu tion associated with recumbent positionin g.Unfortu nately it appears that [facility] did not do lung imaging in the ER. She did briefly require oxygen supplement ation just before and during her ER visit on 05/30, but has since been stable on RA.Continu e Augmentin as above. Lumbar spondylosis 75835 0009 M47.896 Pt has known compressio n [...] interverte bral foraminal narrowing and with compressio n.Added PRN Flexeril & Tramadol -- both were ineffectiv e and concern contribute d to mental status change, so have d/ray both.Jc nue routine APAP & Lidocaine patches.Dr Chana Aviles has extended Celecoxib x 5 more days (06/13).Con tinue Calcitonin nasal spray through 06/11.Thera py to utilize heating pad PRN.Contin ue spinal precaution s.Referral has been made to pain management at [facility]. Burst frac ture of lumbar vertebra 100342714 S32.021S SEE ABOVE... Altered mental status 41 7387974 R41.82 Improved. Suspected sec to acute cholecysti tis recurrence .SEE ABOVE... Atrial fibrillation 4943 6004 I48.91 New-onset while inpatient. Tx with IV heparin & Dilt, spontaneou sly converted. Transition ed to Eliquis & Metoprolol by discharge. Continue Metoprolol for rate-contr ol.Continu e Eliquis for VTE prophylaxi s.Pt follows with Dr. Olson at [facility] as OP, last seen in Jan 2024. Daughter plans to schedule f/u appointmen t after d/c from . Retention of urine 42472 4002 R33.9 Failed voiding trial on 05/10. [...] for retention. SEE ABOVE... Asymptomat ic bacteriuria 968403494 R82.71 Patient was treated with IV Rocephin in the ER on 05/30.Contin ues on Augmentin but this for acute cholecysti tis.UA done here on 06/01 (after IV antibiotic dose) did not meet criteria for reflex.Uri ne culture results from [facility] from 05/30 only grew 10-49,0000 nakita albicans. Edema of l ower extremity [id number] R60.0 Continue BLE rebeca wraps on AM off PM. Encourage elevation of BLE when at rest.Trend labs. Pressure i njury of buttock [id number] L89.309 Developed in April 2023 during COVID-19 pneumonia. Continue to offload pressure and treat with foam dressing daily.Woun d care to follow in-house. Essential hypertension [id number] I10 Stable at present. OP Losartan & HCTZ were discontinu ed. Pt has been started on Metoprolol for rate-contr ol of Afib.Jc nue to trend blood pressures, monitor lytes and renal function, and adjust meds as clinically indicated. Hyperlipidemia 49575129 E78.5 Presumed stable. Continue Atorvastat in. Coronary arteriosclerosis 07557870 I25.[address] Olson at [facility]. Takes PRN NTG as OP for stable angina about 1x/week. RADHA while inpatient was mostly unremarkab le = LV systolic function normal, EF 55-60%. Mildly increased LV wall thickness. RV systolic function normal. LA chamber dimension moderately enlarged. Mild tricuspid valve regurg.Sta ble at present without concerns. Continue Metoprolol , Ranexa, & PRN NTG.F/U with cards as OP. Stable angina 086113146 I20.89 SEE ABOVE... Hypothyroidism 66524128 E03.9 Presumed stable. Continue Levothyrox ine. Osteoarthritis 160123466 M19.90 Stable. Continue PRN APAP. Dysphagia 65074845 R13.1 0 Some concerns while inpatient. Per daughter, MBS was unconcerni ng.She has been discharged on mechanical soft diet with thin liquids.ST to follow. Gastroesop hageal reflux disease without esophagitis [id number] K21.9 Stable. Continue Omeprazole and PRN Zofran. Migraine 74047579 G43.90 9 Per daughter, with aura of spotty vision.Sta ble. Continue Amitriptyl ine at bedtime, dose reduced to 20 mg qhs. Prediabetes 128159913 R7 3.03 Details unclear. Continue to monitor blood sugars on bloodwork. BS 90-100s. Allergic rhinitis 866105 04 J30.9 Per history. Not presently on medication s. Monitor. 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 Continue supplement . Vitamin D deficiency 347 82445 E55.9 Per history. Not on supplement . 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 Pneumonia caused by SARS-CoV-2 [id number] 88305842 J12.82 Dx with covid-19 on 03/30, dx with pneumonia on 04/08.Treate d OP with PO antibiotic s, steroids, and cough medication s.Symptoms had resolved by 04/28.She has had the need for supplement al O2 over the recent daysContin ue Duonebs to PRN.SEE ABOVE... Physical deconditioning [id number] 9102 R68.89 Related to age, recent inpatient stay, and multiple comorbidit ies. Continue PT/OT/ST and monitor progress. Goal is for pt to return home with daughter. Continue PRN cathartics for constipati on per standing orders. Hypokalemia 81997305 E87 .6 Started supplement . Repeat lab on 06/11. Health Concerns Section Related Observation LastModified by Organization Detai ls LastModified Time None Recorded Concern Status LastModified by Organization Details LastModified Time None Recorded Advance Directives Directive None Recorded Payers Insurance Date Sequence Insurance Name Policy Number Policy Bartholomew Covered Member ID Bartholomew Member ID Guarantor Name 06/14/2024 1 [place]: EDU Milton [id number] Maude Milton 05/31/2024 RILEY TOLBERTA - MEDICARE-PAREKH LROAD [employer]ARD (MEDICARE) Maude Milton [id number] Maude Milton 06/20/2024 2 AARP (MEDICARE SUPPLEMENT) Maude Milton [id number] Maude Milton 06/14/2024 1 REASNORLAURIE [employer] - MEDICARE-PAREKH LROAD [employer]ARD (MEDICARE) Maude iMlton [id number] Maude Milton Notes Date Note Type Note Provider Name and Address Organization Details Recorded Time 05/31/2024 text/html f/u with the pat ient today after an ER visit at [facility] 05/30 due to increased lethargy, hypoxia [...] The patient was, unfortunately, sent back from [facility] without appropriate records - nursing is trying [...] [place] [address] [place], [address], [facility] 06/03/2024 06:40:28 06/01/2024 text/html F/U [...] reports this dressing is to be changed [id number] per the surgeon, rather than the daily [...] assist (cueing for hand placement, safety and sequencing).--- 5f/u with the patient today after an ER visit at [facility] 05/30 due to increased lethargy, hypoxia [...] The patient was, unfortunately, sent back from [facility] without appropriate records - nursing is trying [...] We do not have full records from [facility] yet but Anjelica does confirm that a [...] with CGA, toileting with MOD. May Carrillo, NIPPLE THREADER [address] [facility], [place], [address], [place] [facility] 06/03/2024 09:50:25 [...] reports this dressing is to be changed [id number] per the surgeon, rather than the daily [...] draining a small amount of light brown fluid.---05/19/24Peggjennifer is alert, seated at the dining table, [...] pivot transfers requiring CGA-Dave for safety and sequencing---05/25/24 Maude is seated in her recliner, a [...] performed sit to stand to FWW requiring CGA---05/29/24Maude is seated in her wheelchair in the [facility] area, her daughter Jodi by her [...] assist (cueing for hand placement, safety and sequencing).---05/31/2 5f/u with the patient today after an ER visit at [facility] 05/30 due to increased lethargy, hypoxia [...] The patient was, unfortunately, sent back from [facility] without appropriate records - nursing is trying [...] We do not have full records from [facility] yet but Anjelica does confirm that a [...] and UB dressing with CGA, toileting with MOD.---06/03/24Maude is seated in her w/c in her [...] 01/08 impacting self-care tasks May Carrillo, EVONNE [address] [facility], [place], [address], [facility] 06/03/2024 16:06:29 06/08/2024 text/html F/U [...] reports this dressing is to be changed [id number] per the surgeon, rather than the daily [...] draining a small amount of light brown fluid.---05/19/24Peggjennifer is alert, seated at the dining table, [...] pivot transfers requiring CGA-Dave for safety and sequencing---05/25/24 Maude is seated in her recliner, a [...] performed sit to stand to FWW requiring CGA---05/29/24Peggy is seated in her wheelchair in the [...] assist (cueing for hand placement, safety and sequencing).--- 5f/u with the patient today after an ER visit at [facility] 05/30 due to increased lethargy, hypoxia [...] The patient was, unfortunately, sent back from [facility] without appropriate records - nursing is trying [...] We do not have full records from [facility] yet but Anjelica does confirm that a [...] and UB dressing with CGA, toileting with MOD.---06/03/24Maude is seated in her w/c in her [...] pain in lower back 01/08 impacting self-care tasks---06/08/24Maude is resting in bed, complains of dysuria [...] increased time and cues. May Carrillo, EVONNE [address] [facility], [place], [address], [facility] 06/08/2024 17:21:03 06/10/2024 text/html F/U [...] reports this dressing is to be changed [id number] per the surgeon, rather than the daily [...] draining a small amount of light brown fluid.---05/19/24Peggjennifer is alert, seated at the dining table, [...] pivot transfers requiring CGA-Dave for safety and sequencing---05/25/24 Maude is seated in her recliner, a [...] performed sit to stand to FWW requiring CGA---05/29/24Pedamon is seated in her wheelchair in the [...] assist (cueing for hand placement, safety and sequencing).---3/ 5f/u with the patient today after an ER visit at [facility] 05/30 due to increased lethargy, hypoxia [...] The patient was, unfortunately, sent back from [facility] without appropriate records - nursing is trying [...] We do not have full records from [facility] yet but Anjelica does confirm that a [...] and UB dressing with CGA, toileting with MOD.---06/03/24Peggjennifer is seated in her w/c in her [...] pain in lower back 01/08 impacting self-care tasks---06/08/24Peggjennifer is resting in bed, complains of dysuria [...] noted - corrected with increased time and cues.---06/10/24Maude is seated in her w/c, doing well [...] why we changed the dressing changes from [id number] to daily. In fact, she is noted [...] into 2 due [place] [address] [place], [address], [facility] 06/10/2024 15:17:58 OBGyn Episode No OBEpisode recorded.
[2024-10-05 13:23] LABS: Hematocrit 40.0 % (37.0-47.0); Hemoglobin 12.3 g/dL (12.0-15.0); Immature Granulocyte Percent A 0.2 % (0-0.5); Lymphocytes Absolute Auto 2.04 K/mm3 (0.9-3.2); Mean Corpuscular HGB Conc 30.8 g/dl (32-36); Mean Corpuscular Hemoglobin 29.2 pg (26-34); Mean Corpuscular Volume 95.0 fl (80-100); Nucleated Red Blood Cells Absolute Auto 0.000 K/mm3 (0.0-0.012); Nucleated Red Blood Cells Perc 0.0 % (0.0-0.2); Platelet Count Result 163 k/mm3 (150-375); Red Blood Count 4.21 M/mm3 (4.2-5.4); White Blood Count 5.3 K/mm3 (4.5-10.0)
[2024-10-05 13:37] LABS: Alanine Aminotransferase 21 U/L (6-35); Albumin Level 4.0 g/dL (3.5-5.1); Alkaline Phosphatase 87 U/L (38-126); Anion Gap 11 mmol/L (4-12); Aspartate Amino Transferase 30 U/L (14-36); Bilirubin,Total 0.4 mg/dL (0.2-1.3); Blood Urea Nitrogen 13 mg/dL (7-17); Calcium 9.2 mg/dL (8.4-10.2); Carbon Dioxide 28 mmol/L (22-30); Chloride 102 mmol/L (98-107); Estimated Glomerular Filt Rate > 60; Glucose 90 mg/dL (65-110); Potassium 3.7 mmol/L (3.4-5.0); Sodium 141 mmol/L (137-145); Total Protein 7.1 g/dL (6.3-8.2)
[2024-10-05 14:01] LABS: Iron 70 ug/dL (37-170)
[2024-10-05 14:12] LABS: Percent Iron Saturation 24 % (20-50)
[2024-10-05 14:34] LABS: Thyroid Stimulating Hormone Reflex 1.720 uIU/mL (0.465-4.68)
[2024-10-05 14:37] LABS: Ferritin 323.00 ng/mL (11.1-264)
== END 2024-10-05 12:12 | disposition home or self-care (01) ==
PROVIDERS: PCP Family Medicine; Referring Provider Family Medicine; Visit Provider Anesthesiology
DX: R35.89 Other polyuria (principal); Z01.818 Encounter for other preprocedural examination; D64.9 Anemia, unspecified; E03.9 Hypothyroidism, unspecified; E87.6 Hypokalemia
CPT/HCPCS: 80053; 82728; 83540; 83550; 84443; 85025

== ENCOUNTER 2024-10-09 00:42 | Day surgery (SDC) | payer MEDICARE, SELFPAY ==
--- NOTE | 2024-09-28 13:52 | PC.NURSE ---
Informed Dr. Olson's office that pt will be in prone position and receiving general anesthesia during ERCP. Office stated they will relay message to Dr. Olson.
[2024-09-30 11:16] VITALS: BMI 24.7
[2024-10-09] VITALS (8 sets, daily range): BP systolic 93–146; BP diastolic 51–87; PULSE 75–88; RESP 18–24; TEMP 36.4–36.5; O2SAT 92–100; BMI 25.9
--- NOTE | ~2024-10-09 | XR_ITS ---
XR ERCP Indication: ERCP examination. Cholecystitis. History of gallstones with sphincterotomy. TECHNIQUE: Fluoroscopy used during ERCP performed by Dr. Zonia Power on 10/09/2024. 4 fluoroscopic images captured. FINDINGS: Correlate with procedure note. IMPRESSION: Fluoroscopy used during ERCP study.. Reviewed, dictated and finalized at location B.
--- OUTSIDE RECORDS SUMMARY | 2024-10-09 00:45 | XMS_ITS ---
Author Name Auto Generated, Auto Generated Organization [facility] Address [address] [place] [address] Phone [phone] Care Team Providers Care Alteration Hand Name Role Phone May Carrillo Unavailable Diana Kunz Unavailable Functional Status Mental Status Allergies and Intolerances Encounters Immunizations Medications Problems Vital Signs Reason for Referral Past Medical History
--- OUTSIDE RECORDS SUMMARY | 2024-10-09 00:46 | XMS_ITS | Clinical Summary ---
Author Organization [facility] [place] Address [address] [place] [address] Phone Care Team Providers Care Home School Liaison Officer Name Role Phone Milagros Haq MD Primary Care Provider [phone] Allergies Active Allergy Reactions Criticality Noted Date [...] 9 Active nitroglycerin (NITROMIST) 400 mcg/spray Aerosol, Ava place 1 spray by translingual route onto [...] MD (General) Referring Provider: Milagros Haq MD [address] [place] [address] Other: Problem Noted Date Diagnosed Date Inversion [...] 2013 INFLUENZA VACCINE (#1) [address] [place] [address] MEDICARE [employer] [facility] [id number] [place] [address] Care Teams Home School Liaison Officer Relationship Specialty Start Date End Date Milagros Haq MD [address] [place] [id number] PCP - General Family Practice 07/18/12
--- OUTSIDE RECORDS SUMMARY | 2024-10-09 00:46 | XMS_ITS | Data Portability ---
Author Organization [employer] [facility], Main Office Address [address] [place] [address] Care Team Providers Care Bin Piler Name Role Phone P [facility] FAX OTHER TOO [place] Primary Care Provider [phone] RAMÍREZ OLSON Sales Enablement Lead RAMÍREZ OLSON Referring Provider Assessment Encounter Date Assessment Date Assessment LastModified by Organization Details LastModified Time 05/31/2024 05/31/2024 continue antibiotics as ordered - stat labs just drawn, IV fluid x 1 liter, nursing working on getting remaining records from [facility] [email or web address] Not available 06/03/2024 06:24:20 06/01/2024 06/01/2024 Restart Flomax. Completed 1 liter of NS. D/C peripheral IV. Urine cx from [facility] pending. UA here was unconcerning. Restart Augmentin [...] 06/03/2024 09:46:50 06/03/2024 06/03/[address] [facility] pending. [email or web address] Not available 06/03/2024 16:02:45 06/08/2024 06/08/2024 Labs (CBC, CMP, CRP) on 06/09. Dr. Aviles extended Celecoxib course x 5 more days. Voiding trial. [email or web address] Not available 06/08/2024 17:20:12 06/10/2024 06/10/2024 Daughter Jodi is waiting lobby concierge from Dr. Mckenzie's office to discuss results [...] By Organization Details Last Modified Time 05/31/2024 [id number] I spent >50 minutes providing care to the patient today. More than 50% of that time was spent in discussing the expected course of the disease, discussing prognosis, coordinating care and counseling of the patient/family. Of note, the patient's antibiotics have been held today by cyber systems administrator/DON orders as urine culture results are [...] to continue antibiotics for now to the cyber systems administrator via text message today at 1315. [email or web address] Not available 06/03/2024 06:40:07 06/01/2024 [id number] I spent 47 minut es providing care to the patient today. More than 50% of that time was spent in discussing the expected course of the disease, discussing prognosis, coordinating care and counseling of the patient/family. [email or web address] Not available 06/02/2024 09:19:48 06/03/2024 [id number] I spent 36 minut es providing care to the patient today. More than 50% of that time was spent in discussing the expected course of the disease, discussing prognosis, coordinating care and counseling of the patient/family. [email or web address] Not available 06/03/2024 16:06:15 06/08/2024 [id number] I spent 37 minut es providing care to the patient today. More than 50% of that time was spent in discussing the expected course of the disease, discussing prognosis, coordinating care and counseling of the patient/family. Not available 06/08/2024 16:23:24 06/10/2024 [id number] I spent 36 minut es providing care [...] No observ ation record ed. [facility] ([employer]) [address], [place], [address], 05/29/2024 09:44:02 05/27/1905/27/2024 XR, lumbo sacra l spine No observ ation record ed. [facility] ([employer]) [address], [place], [address], 05/29/2024 09:44:12 05/28/1905/27/2024 XR, chest , 2 view No observ ation record ed. [facility] [address] , [place], [address], 05/29/2024 09:44:25 Result Notes None recorded. Procedures Surgical History Date Name Laterality Status Provider Name and Address Organization Details Recorded Time 05/06/19 percutaneous [place] [address] [facility], [place], [address], [facility] 05/12/2024 16:27:51 cardiac catheterization completed Marina Shaikh [facility] 05/13/2024 14:14:34 [facility] 05/13/2024 14:15:03 [facility] 05/13/2024 14:15:20 [facility] of cataract [facility] 05/13/2024 14:15:30 [facility] 05/13/2024 14:15:39 Imaging Results None recorded. Procedure Notes None recorded. Medical Equipment None Reported. Allergies Allergen ID Allergen Name Allergen Category Reaction Reaction Severity Criticality Documentation Date Start Date Code Code System Note Provider Name and Address Organization Details Recorded Time 93668 alendrona te sodium medicatio n Not available Not available Not available 05/12/2024 2 [facility] 01:57:38 21920 hydrocodo ne Not available Not available Not available Not available 05/12/2024 5489 [facility] 5 01:57:46 65827 levofloxa iliana medicatio n Not available Not available Not available 05/12/2024 66144 [facility] 5 01:57:51 Medications Name Sig Start Date [...] Updated DateTime 5 160.02 cm 31.7 kg/m2 08842.7 5 g 69 /min 99 % 99 % 2 L/min 18 /min 97.6 [degF] 137/77 mm[Hg] [place] [address] [place], [address], [facility] [email or web address] 5 02:50:59 Date Recorded Body height Heart rate Body temperature Respiratory rate Oxygen saturation Oxygen saturation in Arterial blood by Pulse oximetry Body mass index (BMI) Body weight Systolic And Diastolic Provider Name and Address Organization Details Last Updated DateTime 5 160.02 cm 79 /min 98.2 [degF] 18 /min 96 % 96 % 32 kg/m2 66653.7 8 g 155/69 mm[Hg] [place] [address] [place], [address], [facility] [email or web address] 5 15:48:05 Date Recorded Body height Heart rate Body temperature Respiratory rate Oxygen saturation Oxygen saturation in Arterial blood by Pulse oximetry Body mass index (BMI) Body weight Systolic And Diastolic Provider Name and Address Organization Details Last Updated DateTime 5 160.02 cm 84 /min 97.8 [degF] 18 /min 93 % 93 % 32 kg/m2 36833.7 8 g 152/68 mm[Hg] [place] [address] [place], [address], [facility] [email or web address] 5 15:55:01 Date Recorded Body height Heart rate Body temperature Respiratory rate Oxygen saturation Oxygen saturation in Arterial blood by Pulse oximetry Body mass index (BMI) Body weight Systolic And Diastolic Provider Name and Address Organization Details Last Updated DateTime 5 160.02 cm 79 /min 97.5 [degF] 16 /min 96 % 96 % 31.1 kg/m2 94959.7 4 g 124/71 mm[Hg] [place] [address] [facility], [place], [address], [facility] 16:10:35 Date Recorded Body height Heart rate Body temperature Respiratory rate Oxygen saturation Oxygen saturation in Arterial blood by Pulse oximetry Body mass index (BMI) Body weight Systolic And Diastolic Provider Name and Address Organization Details Last Updated DateTime 160.02 cm 88 /min 97.9 [degF] 18 /min 95 % 95 % 31.3 kg/m2 66429.4 1 g 142/61 mm[Hg] [place] [address] [place], [address], [facility] 15:01:31 Social History Question Answer Notes LastModified by Wallop Details LastModified Time Tobacco Smoking [place] [address] [place], [address], [facility] 05/12/2024 14:21:47 What Is Your Code Status? Full Code [email or web address] Information not available 05/12/2024 What Was The Date Of Your Most Recent Tobacco Screening? 05/12/2024 Information not available 05/12/2024 What Is Your Relationship Status? Information not available 05/12/2024 Sex: Unknown Functional Status Question Answer Note LastModified by Wallop Details LastModified Time Do you use any [...] SNOMED-CT Code Diagnosis ICD10 Code Diagnosis Note [id number] Diana PoeDO [place] [address] [place] [address] 05/12/2024 10:12:13 05/25/2024 11:48:21 Pressure injury of buttock 236998919 L89.309 Developed in April 2023 during COVID-19 [...] prophylaxi s.Pt follows with Dr. Olson at [facility] as OP, last seen in Jan 2024. Daughter is unclear if they will f/u with him at hospital discharge vs. attempt to find a cardiologi st closer to home. Pneumonia caused by SARS-CoV-2 7901482985 11026862 J12.82 Dx with covid-19 on 03/30, dx with pneumonia on 04/08.Treate d OP with PO antibiotic s, steroids, and cough medication s.Symptoms had resolved by 04/28.Kirill Rodríguezbs to PRN -- pt does not use as OP and daughter isn't clear why these were being given while inpatient. Pt did not have any respirator y concerns while inpatient. Physical deconditioning 5750361507 9102 R68.89 Related to age, recent inpatient stay, and multiple comorbidit ies. Continue PT/OT/ST and monitor progress. Goal is for pt to return home with daughter. Continue PRN cathartics for constipati on per standing orders. Essential hypertension 50212418 I10 Stable at present. OP Losartan & HCTZ were discontinu ed. Pt has been started on Metoprolol for rate-contr ol of Afib.Jc nue to trend blood pressures, monitor lytes and renal function, and adjust meds as clinically indicated. Hyperlipidemia 02881475 E78.5 Presumed stable. Continue Atorvastat in. Coronary arteriosclerosis 40416433 I25.[address] Olson at [facility]. Takes PRN NTG as OP for stable angina about 1x/week. RADHA while inpatient was mostly unremarkab le = LV systolic function normal, EF 55-60%. Mildly increased LV wall thickness. RV systolic function normal. LA chamber dimension moderately enlarged. Mild tricuspid valve regurg.Sta ble at present without concerns. Continue Metoprolol , Ranexa, & PRN NTG.F/U with cards as OP. Stable angina 835678884 I20.89 SEE ABOVE... Prediabetes 616655441 R7 3.03 Details unclear. Continue to monitor blood sugars on bloodwork. Hypothyroidism 13726808 E03.9 Presumed stable. Continue Levothyrox ine. Osteoarthritis 164901093 M19.90 Stable. Continue PRN APAP. Gastroesop hageal reflux disease without esophagitis 941553760 K21.9 Stable. Continue Omeprazole and PRN Zofran. Migraine 84499178 G43.90 9 Per daughter, with aura of spotty vision.Sta ble. Continue Amitriptyl ine at bedtime. Allergic rhinitis 762049 04 J30.9 Per history. Not presently on medication s. Monitor. Disorder o f vitamin B12 863694261 E53.8 Presumed stable. Continue supplement . Vitamin D deficiency 347 87742 E55.9 Per history. Not on supplement . Herpes labialis 4776428 B00.1 Abreva x 3 days or until healed. Retention of urine 52968 4002 R33.9 Failed voiding trial on 05/10. As such, she has transferre d to our facility with a valle catheter.Anastasiia Aviles started Flomax.Antwon l need voiding trial once more ambulatory . Dysphagia 51130269 R13.1 0 Some concerns while inpatient. Per daughter, MBS was unconcerni ng.She has been discharged on mechanical soft diet with thin liquids.ST to follow. [id number] Diana Poe, DO [address] [place] [address] 05/14/2024 18:57:55 05/25/2024 11:49:54 Acute cholecystitis 17960713 K81.0 Initially attempted supportive treatment with IV [...] prophylaxi s.Pt follows with Dr. Olson at [facility] as OP, last seen in Jan 2024. Daughter plans to schedule f/u appointmen t after d/c from [facility] Pneumonia caused by SARS-CoV-2 6410626643 92136468 J12.82 Dx with covid-19 on 03/30, dx with pneumonia on 04/08.Treate d OP with PO antibiotic s, steroids, and cough medication s.Symptoms had resolved by 04/28.Jc nue Duonebs to PRN Retention of urine 45207 4002 R33.9 Failed voiding trial on 05/10. As such, she has transferre d to our facility with a valle catheter.Anastasiia Aviles started Flomax.fol ey catheter removed earlier today Pressure i njury of buttock 357938190 L89.309 Developed in April 2023 during COVID-19 pneumonia. Continue to offload pressure and treat with foam dressing daily.Woun d care to follow in-house. Herpes labialis 7989073 B00.1 Abreva x 3 days or until healed Essential hypertension 44176901 I10 Stable at present. OP Losartan & HCTZ were discontinu ed. Pt has been started on Metoprolol for rate-contr ol of Afib.Jc nue to trend blood pressures, monitor lytes and renal function, and adjust meds as clinically indicated. Hyperlipidemia 44016903 E78.5 Presumed stable. Continue Atorvastat in. Coronary arteriosclerosis 06389295 I25.[address] Olson at [facility]. Takes PRN NTG as OP for stable angina about 1x/week. RADHA while inpatient was mostly unremarkab le = LV systolic function normal, EF 55-60%. Mildly increased LV wall thickness. RV systolic function normal. LA chamber dimension moderately enlarged. Mild tricuspid valve regurg.Sta ble at present without concerns. Continue Metoprolol , Ranexa, & PRN NTG.F/U with cards as OP. Stable angina 625919209 I20.89 SEE ABOVE... Hypothyroidism 80161243 E03.9 Presumed stable. Continue Levothyrox ine. Osteoarthritis 582438466 M19.90 Stable. Continue PRN APAP. Dysphagia 16603150 R13.1 0 Some concerns while inpatient. Per daughter, MBS was un-concern ing.She has been discharged on mechanical soft diet with thin liquids.ST to follow. Gastroesop hageal reflux disease without esophagitis 300418907 K21.9 Stable. Continue Omeprazole and PRN Zofran. Migraine 09862250 G43.90 9 Per daughter, with aura of spotty vision.Sta ble. Continue Amitriptyl ine at bedtime. Prediabetes 177088036 R7 3.03 Details unclear. Continue to monitor blood sugars on bloodwork. Allergic rhinitis 425021 04 J30.9 Per history. Not presently on medication s. Monitor. Disorder o f vitamin B12 004628144 E53.8 Presumed stable. Continue supplement . Vitamin D deficiency 347 23657 E55.9 Per history. Not on supplement . Physical deconditioning 6101754665 9102 R68.89 Related to age, recent inpatient stay, and multiple comorbidit ies. Continue PT/OT/ST and monitor progress. Goal is for pt to return home with daughter. Continue PRN cathartics for constipati on per standing orders. [id number] Diana Poe, PAC [address] [address] 05/19/2024 08:28:41 05/25/2024 11:49:06 Acute cholecystitis 85336419 K81.0 Initially attempted supportive treatment with IV [...] prophylaxi s.Pt follows with Dr. Olson at [facility] as OP, last seen in Jan 2024. Daughter plans to schedule f/u appointmen t after d/c from [facility]. Pneumonia caused by SARS-CoV-2 5081462605 61682139 J12.82 Dx with covid-19 on 03/30, dx with pneumonia on 04/08.Treate d OP with PO antibiotic s, steroids, and cough medication s.Symptoms had resolved by 04/28.Jc nue Duonebs to PRN Retention of urine 25950 4002 R33.9 Failed voiding trial on 05/10. As such, she was transferre d to our facility with a valle catheter. Reattempte d with Flomax on 05/14 and has been successful ly voiding. Flomax has been stopped.Mo nitor for recurrence . Pressure i njury of buttock 983925981 L89.309 Developed in April 2023 during COVID-19 pneumonia. Continue to offload pressure and treat with foam dressing daily.Woun d care to follow in-house. Herpes labialis 3050730 B00.1 Healed with Abreva. Essential hypertension 87564283 I10 Stable at present. OP Losartan & HCTZ were discontinu ed. Pt has been started on Metoprolol for rate-contr ol of Afib.Jc nue to trend blood pressures, monitor lytes and renal function, and adjust meds as clinically indicated. Hyperlipidemia 87005704 E78.5 Presumed stable. Continue Atorvastat in. Coronary arteriosclerosis 35326844 I25.[address] Olson at [facility]. Takes PRN NTG as OP for stable angina about 1x/week. RADHA while inpatient was mostly unremarkab le = LV systolic function normal, EF 55-60%. Mildly increased LV wall thickness. RV systolic function normal. LA chamber dimension moderately enlarged. Mild tricuspid valve regurg.Sta ble at present without concerns. Continue Metoprolol , Ranexa, & PRN NTG.F/U with cards as OP. Stable angina 789324314 I20.89 SEE ABOVE... Hypothyroidism 73777108 E03.9 Presumed stable. Continue Levothyrox ine. Osteoarthritis 654639027 M19.90 Stable. Continue PRN APAP. Dysphagia 18232912 R13.1 0 Some concerns while inpatient. Per daughter, MBS was un-concern ing.She has been discharged on mechanical soft diet with thin liquids.ST to follow. Gastroesop hageal reflux disease without esophagitis 337328754 K21.9 Stable. Continue Omeprazole and PRN Zofran. Migraine 15773792 G43.90 9 Per daughter, with aura of spotty vision.Sta ble. Continue Amitriptyl ine at bedtime. Prediabetes 094790599 R7 3.03 Details unclear. Continue to monitor blood sugars on bloodwork. Allergic rhinitis 745979 04 J30.9 Per history. Not presently on medication s. Monitor. Disorder o f vitamin B12 152215491 E53.8 Presumed stable. Continue supplement . Vitamin D deficiency 347 01886 E55.9 Per history. Not on supplement . Physical deconditioning 4144119635 9102 R68.89 Related to age, recent inpatient stay, and multiple comorbidit ies. Continue PT/OT/ST and monitor progress. Goal is for pt to return home with daughter. Continue PRN cathartics for constipati on per standing orders. [id number] Diana Poe DO [place] [address] [place] [address] 05/25/2024 12:43:05 06/08/2024 21:37:29 Lumbar spondylosis 988092598 M47.896 Increase routine APAP to 1000 mg TID.Increa se PRN Cyclobenza clay to 10 mg q8hrs PRN. Monitor for drowsiness (pt denies thus far).Add Lidocaine patch daily.If no improvemen t, may need to advance to PRN Tramadol.I f pain does not improve or worsens, will check Thoracic & Lumbar XRs. Burst frac ture of lumbar vertebra 298441985 S32.021S Old, noted on imaging incidental ly [...] prophylaxi s.Pt follows with Dr. Olson at [facility] as OP, last seen in Jan 2024. Daughter plans to schedule f/u appointmen t after d/c from [facility]. Pneumonia caused by SARS-CoV-2 6690468748 13341211 J12.82 Dx with covid-19 on 03/30, dx with pneumonia on 04/08.Treate d OP with PO antibiotic s, steroids, and cough medication s.Symptoms had resolved by 04/28.Jc nue Duonebs to PRN Retention of urine 72839 4002 R33.9 Failed voiding trial on 05/10. As such, she was transferre d to our facility with a valle catheter. Reattempte d with Flomax on 05/14 and has been successful ly voiding. Flomax has been stopped.Mo nitor for recurrence . Pressure i njury of buttock 935159571 L89.309 Developed in April 2023 during COVID-19 pneumonia. Continue to offload pressure and treat with foam dressing daily.Woun d care to follow in-house. Herpes labialis 9761572 B00.1 Healed with Abreva. Essential hypertension 32740651 I10 Stable at present. OP Losartan & HCTZ were discontinu ed. Pt has been started on Metoprolol for rate-contr ol of Afib.Jc nue to trend blood pressures, monitor lytes and renal function, and adjust meds as clinically indicated. Hyperlipidemia 57757965 E78.5 Presumed stable. Continue Atorvastat in. Coronary arteriosclerosis 66754488 I25.10 [address] OP [address] Olson at [facility]. Takes PRN NTG as OP for stable angina about 1x/week. RADHA while inpatient was mostly unremarkab le = LV systolic function normal, EF 55-60%. Mildly increased LV wall thickness. RV systolic function normal. LA chamber dimension moderately enlarged. Mild tricuspid valve regurg.Sta ble at present without concerns. Continue Metoprolol , Ranexa, & PRN NTG.F/U with cards as OP. Stable angina 053540553 I20.89 SEE ABOVE... Hypothyroidism 16727818 E03.9 Presumed stable. Continue Levothyrox ine. Osteoarthritis 051877481 M19.90 Stable. Continue PRN APAP. Dysphagia 89145719 R13.1 0 Some concerns while inpatient. Per daughter, MBS was un-concern ing.She has been discharged on mechanical soft diet with thin liquids.ST to follow. Gastroesop hageal reflux disease without esophagitis 127314553 K21.9 Stable. Continue Omeprazole and PRN Zofran. Migraine 65221144 G43.90 9 Per daughter, with aura of spotty vision.Sta ble. Continue Amitriptyl ine at bedtime. Prediabetes 863746200 R7 3.03 Details unclear. Continue to monitor blood sugars on bloodwork. Allergic rhinitis 110452 04 J30.9 Per history. Not presently on medication s. Monitor. Disorder o f vitamin B12 112630119 E53.8 Presumed stable. Continue supplement . Vitamin D deficiency 347 05474 E55.9 Per history. Not on supplement . Physical deconditioning 6316070379 9102 R68.89 Related to age, recent inpatient stay, and multiple comorbidit ies. Continue PT/OT/ST and monitor progress. Goal is for pt to return home with daughter. Continue PRN cathartics for constipati on per standing orders. [id number] Diana Poe, DO [facility] [address] [place] [address] 05/27/2024 13:50:28 06/08/2024 21:38:11 Lumbar spondylosis 782813906 M47.896 Continue routine APAP to 1000 mg TID, Lidocaine patch, and schedule Cyclobenza clay qAM before therapy. Continue PRN dosing, as well. Monitor for drowsiness (pt denies thus far).Obtai n Lumbar Spine XR.If no improvemen t, may need to advance to PRN Tramadol. Burst frac ture of lumbar vertebra 228809904 S32.021S Old, noted on imaging incidental ly [...] prophylaxi s.Pt follows with Dr. Olson at [facility] as OP, last seen in Jan 2024. Daughter plans to schedule f/u appointmen t after d/c from [facility]. Pneumonia caused by SARS-CoV-2 5772140432 94350686 J12.82 Dx with covid-19 on 03/30, dx with pneumonia on 04/08.Treate d OP with PO antibiotic s, steroids, and cough medication s.Symptoms had resolved by 04/28.Jc nue Duonebs to PRN Retention of urine 95918 4002 R33.9 Failed voiding trial on 05/10. As such, she was transferre d to our facility with a valle catheter. Reattempte d with Flomax on 05/14 and has been successful ly voiding. Flomax has been stopped.Mo clemente for recurrence . Pressure i njury of buttock 031567105 L89.309 Developed in April 2023 during COVID-19 pneumonia. Continue to offload pressure and treat with foam dressing daily.Woun d care to follow in-house. Essential hypertension 64605445 I10 Stable at present. OP Losartan & HCTZ were discontinu ed. Pt has been started on Metoprolol for rate-contr ol of Afib.Jc nue to trend blood pressures, monitor lytes and renal function, and adjust meds as clinically indicated. Hyperlipidemia 33061460 E78.5 Presumed stable. Continue Atorvastat in. Coronary arteriosclerosis 05881061 I25.10 [address] OP [address] Olson at [facility]. Takes PRN NTG as OP for stable angina about 1x/week. RADHA while inpatient was mostly unremarkab le = LV systolic function normal, EF 55-60%. Mildly increased LV wall thickness. RV systolic function normal. LA chamber dimension moderately enlarged. Mild tricuspid valve regurg.Sta ble at present without concerns. Continue Metoprolol , Ranexa, & PRN NTG.F/U with cards as OP. Stable angina 032666573 I20.89 SEE ABOVE... Hypothyroidism 86122103 E03.9 Presumed stable. Continue Levothyrox ine. Osteoarthritis 872734704 M19.90 Stable. Continue PRN APAP. Dysphagia 92379918 R13.1 0 Some concerns while inpatient. Per daughter, MBS was un-concern ing.She has been discharged on mechanical soft diet with thin liquids.ST to follow. Gastroesop hageal reflux disease without esophagitis 552394807 K21.9 Stable. Continue Omeprazole and PRN Zofran. Migraine 03050412 G43.90 9 Per daughter, with aura of spotty vision.Sta ble. Continue Amitriptyl ine at bedtime. Prediabetes 817627787 R7 3.03 Details unclear. Continue to monitor blood sugars on bloodwork. Allergic rhinitis 470867 04 J30.9 Per history. Not presently on medication s. Monitor. Disorder o f vitamin B12 146308057 E53.8 Presumed stable. Continue supplement . Vitamin D deficiency 347 31502 E55.9 Per history. Not on supplement . Herpes labialis 5036762 B00.1 Healed with Abreva. Physical deconditioning 3609826537 9102 R68.89 Related to age, recent inpatient stay, and multiple comorbidit ies. Continue PT/OT/ST and monitor progress. Goal is for pt to return home with daughter. Continue PRN cathartics for constipati on per standing orders. Hypokalemia 20233505 E87 .6 Give KCl 40 meq x 1 dose. Lung field abnormal 2747 55559 R91.8 Obtain CXR.Respir atory status is stable.Mon itor closely. [id number] Diana Poe, DO [address] [address] 05/29/2024 17:15:58 06/14/2024 16:20:22 Lumbar spondylosis 590197310 M47.896 Pt has known compressio n fracture [...] days (06/11).Ref er to pain management at [facility]. Burst frac ture of lumbar vertebra 035346274 S32.021S Old, noted on imaging incidental ly while inpatient. Jodi believes this occurred prior to Mar 2023.SEE ABOVE... Acute cholecystitis 6527 5009 K81.0 Initially attempted supportive treatment with IV antibiotic s, however worsened. Perc celia tube placed on 05/[address] Mceknzie.Symp toms have improved. She continues on Augmentin [...] prophylaxi s.Pt follows with Dr. Olson at [facility] as OP, last seen in Jan 2024. Daughter plans to schedule f/u appointmen t after d/c from [facility]. Pneumonia caused by SARS-CoV-2 [id number] J12.82 Dx with covid-19 on 03/30, dx with pneumonia on 04/08.Treate d OP with PO antibiotic s, steroids, and cough medication s.Symptoms had resolved by 04/28.Jc nue Duonebs to PRN Retention of urine 50457 4002 R33.9 Failed voiding trial on 05/10. As such, she was transferre d to our facility with a valle catheter. Reattempte d voiding trial with Flomax on 05/14 and has been successful ly voiding. Flomax has been stopped.Mo julitoor for recurrence . Pressure i njury of buttock 131700529 L89.309 Developed in April 2023 during COVID-19 pneumonia. Continue to offload pressure and treat with foam dressing daily.Woun d care to follow in-house. Essential hypertension 06256160 I10 Stable at present. OP Losartan & HCTZ were discontinu ed. Pt has been started on Metoprolol for rate-contr ol of Afib.Jc nue to trend blood pressures, monitor lytes and renal function, and adjust meds as clinically indicated. Hyperlipidemia 21092097 E78.5 Presumed stable. Continue Atorvastat in. Coronary arteriosclerosis 25893910 I25.[address] OP [address] Olson at [facility]. Takes PRN NTG as OP for stable angina about 1x/week. RADHA while inpatient was mostly unremarkab le = LV systolic function normal, EF 55-60%. Mildly increased LV wall thickness. RV systolic function normal. LA chamber dimension moderately enlarged. Mild tricuspid valve regurg.Sta ble at present without concerns. Continue Metoprolol , Ranexa, & PRN NTG.F/U with cards as OP. Stable angina 109905402 I20.89 SEE ABOVE... Hypothyroidism 87718094 E03.9 Presumed stable. Continue Levothyrox ine. Osteoarthritis 062781825 M19.90 Stable. Continue PRN APAP. Dysphagia 66880195 R13.1 0 Some concerns while inpatient. Per daughter, MBS was un-concern ing.She has been discharged on mechanical soft diet with thin liquids.ST to follow. Gastroesop hageal reflux disease without esophagitis 878952508 K21.9 Stable. Continue Omeprazole and PRN Zofran. Migraine 46196257 G43.90 9 Per daughter, with aura of spotty vision.Sta ble. Continue Amitriptyl ine at bedtime. Prediabetes 368464902 R7 3.03 Details unclear. Continue to monitor blood sugars on bloodwork. BS 90 & 101 thus far. Allergic rhinitis 519485 04 J30.9 Per history. Not presently on medication s. Monitor. Disorder o f vitamin B12 438910272 E53.8 Presumed stable. Continue supplement . Vitamin D deficiency 347 79292 E55.9 Per history. Not on supplement . Herpes labialis 1338417 B00.1 Healed with Abreva. Physical deconditioning 0943274918 9102 R68.89 Related to age, recent inpatient stay, and multiple comorbidit ies. Continue PT/OT/ST and monitor progress. Goal is for pt to return home with daughter. Continue PRN cathartics for constipati on per standing orders. Edema of l ower extremity 953668791 R60.0 Lasix 40 mg daily x 3 days.KCl 20 meq daily x 3 days.Jc nue BLE rebeca wraps on AM off PM. Encourage elevation of BLE when at rest.Labs on 06/01. [id number] Diana Poe DO [address] [place] [address] 05/31/2024 16:34:55 06/14/2024 16:18:20 Acute urinary tract infection 184090728 N39.0 the patient was treated with IV [...] clinically appropriat e Altered mental status 41 2699659 R41.82 suspect related to aboveavoid sedating meds - pain meds and muscle relaxants have been discontinu ed Lumbar spondylosis 94176 0009 M47.896 Pt has known compressio n [...] has been made to pain management at [facility]. Burst frac ture of lumbar vertebra 385891968 S32.021S Old, noted on imaging incidental ly [...] prophylaxi s.Pt follows with Dr. Olson at [facility] as OP, last seen in Jan 2024. Daughter plans to schedule f/u appointmen t after d/c from [facility]. Pneumonia caused by SARS-CoV-2 2740473635 80547498 J12.82 Dx with covid-19 on 03/30, dx with pneumonia on 04/08.Treate d OP with PO antibiotic s, steroids, and cough medication s.Symptoms had resolved by 04/28.She has had the need for supplement al O2 over the recent daysCXR done 05/27 was concerning for possible RLL infiltrate - need to get imaging studies done at [facility] yesterday to see if CT included chest or if repeat CXR was done. If not, might consider repeat here.Jc nue Duonebs to PRN Retention of urine 24775 4002 R33.9 Failed voiding trial on 05/10. As such, she was transferre d to our facility with a valle catheter. Reattempte d voiding trial with Flomax on 05/14 and she had been successful ly voiding.Sh e has had retention again over the recent days with dark/foamy urine and +UA in the ER yesterdayc ontinue valle catheter for now [id number] Diana Poe, DO [address] [place] [address] 06/01/2024 13:40:54 06/21/2024 11:11:55 Altered mental status 272578832 R41.82 Improved. Suspected sec to acute cholecysti tis recurrence .SEE ABOVE... Lumbar spondylosis 22686 0009 M47.896 Pt has known compressio n [...] has been made to pain management at [facility]. Burst frac ture of lumbar vertebra 950931995 S32.021S Old, noted on imaging incidental ly [...] prophylaxi s.Pt follows with Dr. Olson at [facility] as OP, last seen in Jan 2024. Daughter plans to schedule f/u appointmen t after d/c from [facility]. Pneumonia caused by SARS-CoV-2 8978365356 15576883 J12.82 Dx with covid-19 on 03/30, dx with pneumonia on 04/08.Treate d OP with PO antibiotic s, steroids, and cough medication s.Symptoms had resolved by 04/28.She has had the need for supplement al O2 over the recent daysContin ue Duonebs to PRN.SEE ABOVE... Retention of urine 43300 4002 R33.9 Failed voiding trial on 05/10. As such, she was transferre d to our facility with a valle catheter. Reattempte d voiding trial with Flomax on 05/14 and she had been successful ly voiding but she unfortunat christina had recurrence of retention on 05/30, so catheter was replaced.C ontinue catheter care and have restarted Flomax.SEE ABOVE... Asymptomat ic bacteriuria 797700657 R82.71 Patient was treated with IV Rocephin in the ER on 05/30.Contin ues on Augmentin but this for acute cholecysti tis.UA done here on 06/01 (after IV antibiotic dose) did not meet criteria for reflex.Sti ll waiting on urine culture results from [facility] from 05/30. Edema of l ower extremity 772679248 R60.0 Continue BLE rebeca wraps on AM off PM. Encourage elevation of BLE when at rest.Trend labs. Pressure i njury of buttock 771638979 L89.309 Developed in April 2023 during COVID-19 pneumonia. Continue to offload pressure and treat with foam dressing daily.Woun d care to follow in-house. Essential hypertension 64147374 I10 Stable at present. OP Losartan & HCTZ were discontinu ed. Pt has been started on Metoprolol for rate-contr ol of Afib.Jc nue to trend blood pressures, monitor lytes and renal function, and adjust meds as clinically indicated. Hyperlipidemia 68787676 E78.5 Presumed stable. Continue Atorvastat in. Coronary arteriosclerosis 17263445 I25.[address] OP [address] Olson at [facility]. Takes PRN NTG as OP for stable angina about 1x/week. RADHA while inpatient was mostly unremarkab le = LV systolic function normal, EF 55-60%. Mildly increased LV wall thickness. RV systolic function normal. LA chamber dimension moderately enlarged. Mild tricuspid valve regurg.Sta ble at present without concerns. Continue Metoprolol , Ranexa, & PRN NTG.F/U with cards as OP. Stable angina 263259940 I20.89 SEE ABOVE... Hypothyroidism 14197036 E03.9 Presumed stable. Continue Levothyrox ine. Osteoarthritis 692030512 M19.90 Stable. Continue PRN APAP. Dysphagia 92632563 R13.1 0 Some concerns while inpatient. Per daughter, MBS was un-concern ing.She has been discharged on mechanical soft diet with thin liquids.ST to follow. Gastroesop hageal reflux disease without esophagitis 538162232 K21.9 Stable. Continue Omeprazole and PRN Zofran. Migraine 49262072 G43.90 9 Per daughter, with aura of spotty vision.Sta ble. Continue Amitriptyl ine at bedtime, dose reduced to 20 mg qhs. Prediabetes 152437191 R7 3.03 Details unclear. Continue to monitor blood sugars on bloodwork. BS 90-100s thus far. Allergic rhinitis 913385 04 J30.9 Per history. Not presently on medication s. Monitor. Disorder o f vitamin B12 302937125 E53.8 Presumed stable. Continue supplement . Vitamin D deficiency 347 57348 E55.9 Per history. Not on supplement . Herpes labialis 8171465 B00.1 Healed with Abreva. Physical deconditioning 4238831774 9102 R68.89 Related to age, recent inpatient stay, and multiple comorbidit ies. Continue PT/OT/ST and monitor progress. Goal is for pt to return home with daughter. Continue PRN cathartics for constipati on per standing orders. Imaging of lung abnormal 646680281 R91.8 05/27 CXR on 05/27 done for [...] stable on RA.Continu e Augmentin as above. [id number] Diana Poe DO [address] [address] 06/03/2024 12:08:20 06/08/2024 21:39:14 Acute cholecystitis 54306572 K81.0 Initially attempted supportive treatment with IV [...] 05/26 with NNO. Imaging of lung abnormal 087632038 R91.8 05/27 CXR on 05/27 done for [...] e Augmentin as above. Asymptomat ic bacteriuria 866495470 R82.71 Patient was treated with IV Rocephin in the ER on 05/30.Contin ues on Augmentin but this for acute cholecysti tis.UA done here on 06/01 (after IV antibiotic dose) did not meet criteria for reflex.Sti ll waiting on urine culture results from [facility] from 05/30. Lumbar spondylosis 16348 0009 M47.896 Pt has known compressio n [...] has been made to pain management at [facility]. Burst frac ture of lumbar vertebra 731229711 S32.021S Old, noted on imaging incidental ly while inpatient. Jodi believes this occurred prior to Mar 2023.SEE ABOVE... Altered mental status 41 0845333 R41.82 Improved. Suspected sec to acute cholecysti tis recurrence .SEE ABOVE... Atrial fibrillation 4943 6004 I48.91 New-onset while inpatient. Tx with IV heparin & Dilt, spontaneou sly converted. Transition ed to Eliquis & Metoprolol by discharge. Continue Metoprolol for rate-contr ol.Continu e Eliquis for VTE prophylaxi s.Pt follows with Dr. Olson at [facility] as OP, last seen in Jan 2024. Daughter plans to schedule f/u appointmen t after d/c from . Retention of urine 22960 4002 R33.9 Failed voiding trial on 05/10. As such, she was transferre d to our facility with a valle catheter. Reattempte d voiding trial with Flomax on 05/14 and she had been successful ly voiding but she unfortunat christina had recurrence of retention on 05/30, so catheter was replaced.C ontinue catheter care and have restarted Flomax.SEE ABOVE... Edema of l ower extremity 753595598 R60.0 Continue BLE rebeca wraps on AM off PM. Encourage elevation of BLE when at rest.Trend labs. Pressure i njury of buttock 617048452 L89.309 Developed in April 2023 during COVID-19 pneumonia. Continue to offload pressure and treat with foam dressing daily.Woun d care to follow in-house. Essential hypertension 21895923 I10 Stable at present. OP Losartan & HCTZ were discontinu ed. Pt has been started on Metoprolol for rate-contr ol of Afib.Jc nue to trend blood pressures, monitor lytes and renal function, and adjust meds as clinically indicated. Hyperlipidemia 24635835 E78.5 Presumed stable. Continue Atorvastat in. Coronary arteriosclerosis 61511880 I25.[address] Follow[address] OP [address] Olson at [facility]. Takes PRN NTG as OP for stable angina about 1x/week. RADHA while inpatient was mostly unremarkab le = LV systolic function normal, EF 55-60%. Mildly increased LV wall thickness. RV systolic function normal. LA chamber dimension moderately enlarged. Mild tricuspid valve regurg.Sta ble at present without concerns. Continue Metoprolol , Ranexa, & PRN NTG.F/U with cards as OP. Stable angina 669125695 I20.89 SEE ABOVE... Hypothyroidism 65393120 E03.9 Presumed stable. Continue Levothyrox ine. Osteoarthritis 211845695 M19.90 Stable. Continue PRN APAP. Dysphagia 31967031 R13.1 0 Some concerns while inpatient. Per daughter, MBS was unconcerni ng.She has been discharged on mechanical soft diet with thin liquids.ST to follow. Gastroesop hageal reflux disease without esophagitis 998854597 K21.9 Stable. Continue Omeprazole and PRN Zofran. Migraine 28667984 G43.90 9 Per daughter, with aura of spotty vision.Sta ble. Continue Amitriptyl ine at bedtime, dose reduced to 20 mg qhs. Prediabetes 246417014 R7 3.03 Details unclear. Continue to monitor blood sugars on bloodwork. BS 90-100s thus far. Allergic rhinitis 924870 04 J30.9 Per history. Not presently on medication s. Monitor. Disorder o f vitamin B12 629109948 E53.8 Presumed stable. Continue supplement . Vitamin D deficiency 347 98107 E55.9 Per history. Not on supplement . Herpes labialis 8849424 B00.1 Healed with Abreva. Pneumonia caused by SARS-CoV-2 3482023556 96759736 J12.82 Dx with covid-19 on 03/30, dx with pneumonia on 04/08.Treate d OP with PO antibiotic s, steroids, and cough medication s.Symptoms had resolved by 04/28.She has had the need for supplement al O2 over the recent daysContin ue Duonebs to PRN.SEE ABOVE... Physical deconditioning 0612049257 9102 R68.89 Related to age, recent inpatient stay, and multiple comorbidit ies. Continue PT/OT/ST and monitor progress. Goal is for pt to return home with daughter. Continue PRN cathartics for constipati on per standing orders. [id number] Diana Poe, DO [address] [address] 06/08/2024 10:22:03 06/20/2024 07:26:41 Acute cholecystitis 24683904 K81.0 Initially attempted supportive treatment with IV [...] 05/26 with NNO. Imaging of lung abnormal 980205302 R91.8 05/27 CXR on 05/27 done for [...] e Augmentin as above. Asymptomat ic bacteriuria 531785622 R82.71 Patient was treated with IV Rocephin in the ER on 05/30.Contin ues on Augmentin but this for acute cholecysti tis.UA done here on 06/01 (after IV antibiotic dose) did not meet criteria for reflex.Uri ne culture results from [facility] from 05/30 only grew 10-49,0000 nakita albicans. Lumbar spondylosis 53035 0009 M47.896 Pt has known compressio n [...] has been made to pain management at [facility]. Burst frac ture of lumbar vertebra 204410799 S32.021S SEE ABOVE... Altered mental status 41 7627454 R41.82 Improved. Suspected sec to acute cholecysti tis recurrence .SEE ABOVE... Atrial fibrillation 4943 6004 I48.91 New-onset while inpatient. Tx with IV heparin & Dilt, spontaneou sly converted. Transition ed to Eliquis & Metoprolol by discharge. Continue Metoprolol for rate-contr ol.Continu e Eliquis for VTE prophylaxi s.Pt follows with Dr. Olson at [facility] as OP, last seen in Jan 2024. Daughter plans to schedule f/u appointmen t after d/c from . Retention of urine 48954 4002 R33.9 Failed voiding trial on 05/10. [...] today.SEE ABOVE... Edema of l ower extremity 665636184 R60.0 Continue BLE rebeca wraps on AM off PM. Encourage elevation of BLE when at rest.Trend labs. Pressure i njury of buttock 586428503 L89.309 Developed in April 2023 during COVID-19 pneumonia. Continue to offload pressure and treat with foam dressing daily.Woun d care to follow in-house. Essential hypertension 20315269 I10 Stable at present. OP Losartan & HCTZ were discontinu ed. Pt has been started on Metoprolol for rate-contr ol of Afib.Jc nue to trend blood pressures, monitor lytes and renal function, and adjust meds as clinically indicated. Hyperlipidemia 74698621 E78.5 Presumed stable. Continue Atorvastat in. Coronary arteriosclerosis 35392867 I25.10 Follow[address] OP [address] Olson at [...] NTG.F/U with cards as OP. Stable angina 030457815 I20.89 SEE ABOVE... Hypothyroidism 37689623 E03.9 Presumed stable. Continue Levothyrox ine. Osteoarthritis 872312208 M19.90 Stable. Continue PRN APAP. Dysphagia 88621009 R13.1 0 Some concerns while inpatient. Per daughter, MBS was unconcerni ng.She has been discharged on mechanical soft diet with thin liquids.ST to follow. Gastroesop hageal reflux disease without esophagitis 921497554 K21.9 Stable. Continue Omeprazole and PRN Zofran. Migraine 90089892 G43.90 9 Per daughter, with aura of spotty vision.Sta ble. Continue Amitriptyl ine at bedtime, dose reduced to 20 mg qhs. Prediabetes 333147106 R7 3.03 Details unclear. Continue to monitor blood sugars on bloodwork. BS 90-100s thus far. Allergic rhinitis 234805 04 J30.9 Per history. Not presently on medication s. Monitor. Disorder o f vitamin B12 292609264 E53.8 Presumed stable. Continue supplement . Vitamin D deficiency 347 60072 E55.9 Per history. Not on supplement . Herpes labialis 4044981 B00.1 Healed with Abreva. Pneumonia caused by SARS-CoV-2 6377375922 67369960 J12.82 Dx with covid-19 on 03/30, dx with pneumonia on 04/08.Treate d OP with PO antibiotic s, steroids, and cough medication s.Symptoms had resolved by 04/28.She has had the need for supplement al O2 over the recent daysContin ue Duonebs to PRN.SEE ABOVE... Physical deconditioning 5449992985 9102 R68.89 Related to age, recent inpatient stay, and multiple comorbidit ies. Continue PT/OT/ST and monitor progress. Goal is for pt to return home with daughter. Continue PRN cathartics for constipati on per standing orders. [id number] Diana Lui, DO PAC [address] [place] [address] 06/10/2024 09:34:44 06/20/2024 07:27:23 Acute cholecystitis 52925729 K81.0 Initially attempted supportive treatment with IV [...] appt with Dr. Mckenzie on 05/26 with NNO.[facility] Jodi is waiting lobby concierge from Dr. Mckenzie's office to discuss results of 06/09's cholangiog william and plan moving forward. Imaging of lung abnormal 345755208 R91.8 05/27 CXR on 05/27 done for [...] RA.Continu e Augmentin as above. Lumbar spondylosis 53798 0009 M47.896 Pt has known compressio n [...] has been made to pain management at [facility]. Burst frac ture of lumbar vertebra 304043556 S32.021S SEE ABOVE... Altered mental status 41 1221238 R41.82 Improved. Suspected sec to acute cholecysti tis recurrence .SEE ABOVE... Atrial fibrillation 4943 6004 I48.91 New-onset while inpatient. Tx with IV heparin & Dilt, spontaneou sly converted. Transition ed to Eliquis & Metoprolol by discharge. Continue Metoprolol for rate-contr ol.Continu e Eliquis for VTE prophylaxi s.Pt follows with Dr. Olson at [facility] as OP, last seen in Jan 2024. Daughter plans to schedule f/u appointmen t after d/c from . Retention of urine 76709 4002 R33.9 Failed voiding trial on 05/10. [...] for retention. SEE ABOVE... Asymptomat ic bacteriuria 218433822 R82.71 Patient was treated with IV Rocephin in the ER on 05/30.Contin ues on Augmentin but this for acute cholecysti tis.UA done here on 06/01 (after IV antibiotic dose) did not meet criteria for reflex.Uri ne culture results from [facility] from 05/30 only grew 10-49,0000 nakita albicans. Edema of l ower extremity 755181660 R60.0 Continue BLE rebeca wraps on AM off PM. Encourage elevation of BLE when at rest.Trend labs. Pressure i njury of buttock 591953263 L89.309 Developed in April 2023 during COVID-19 pneumonia. Continue to offload pressure and treat with foam dressing daily.Woun d care to follow in-house. Essential hypertension 19526438 I10 Stable at present. OP Losartan & HCTZ were discontinu ed. Pt has been started on Metoprolol for rate-contr ol of Afib.Jc nue to trend blood pressures, monitor lytes and renal function, and adjust meds as clinically indicated. Hyperlipidemia 57576796 E78.5 Presumed stable. Continue Atorvastat in. Coronary arteriosclerosis 52744627 I25.10 Follow[address] OP [address] Olson at [facility]. Takes PRN NTG as OP for stable angina about 1x/week. RADHA while inpatient was mostly unremarkab le = LV systolic function normal, EF 55-60%. Mildly increased LV wall thickness. RV systolic function normal. LA chamber dimension moderately enlarged. Mild tricuspid valve regurg.Sta ble at present without concerns. Continue Metoprolol , Ranexa, & PRN NTG.F/U with cards as OP. Stable angina 069529971 I20.89 SEE ABOVE... Hypothyroidism 98485823 E03.9 Presumed stable. Continue Levothyrox ine. Osteoarthritis 213234614 M19.90 Stable. Continue PRN APAP. Dysphagia 23037905 R13.1 0 Some concerns while inpatient. Per daughter, MBS was unconcerni ng.She has been discharged on mechanical soft diet with thin liquids.ST to follow. Gastroesop hageal reflux disease without esophagitis 818136346 K21.9 Stable. Continue Omeprazole and PRN Zofran. Migraine 69959838 G43.90 9 Per daughter, with aura of spotty vision.Sta ble. Continue Amitriptyl ine at bedtime, dose reduced to 20 mg qhs. Prediabetes 559529153 R7 3.03 Details unclear. Continue to monitor blood sugars on bloodwork. BS 90-100s. Allergic rhinitis 256650 04 J30.9 Per history. Not presently on medication s. Monitor. Disorder o f vitamin B12 474628420 E53.8 Presumed stable. Continue supplement . Vitamin D deficiency 347 32723 E55.9 Per history. Not on supplement . Herpes labialis 2239814 B00.1 Healed with Abreva. Pneumonia caused by SARS-CoV-2 8366820940 95872951 J12.82 Dx with covid-19 on 03/30, dx with pneumonia on 04/08.Treate d OP with PO antibiotic s, steroids, and cough medication s.Symptoms had resolved by 04/28.She has had the need for supplement al O2 over the recent daysContin ue Duonebs to PRN.SEE ABOVE... Physical deconditioning 1379821551 9102 R68.89 Related to age, recent inpatient stay, and multiple comorbidit ies. Continue PT/OT/ST and monitor progress. Goal is for pt to return home with daughter. Continue PRN cathartics for constipati on per standing orders. Hypokalemia 52632756 E87 .6 Started supplement . Repeat lab on 06/11. Health Concerns Section Related Observation LastModified by Organization Detai ls LastModified Time None Recorded Concern Status LastModified by Organization Details LastModified Time None Recorded Advance Directives Directive None Recorded Payers Insurance Date Sequence Insurance Name Policy Number Policy Bartholomew Covered Member ID Bartholomew Member ID Guarantor Name 06/14/2024 1 MEDICARE [place]: EDU Milton [id number] Maude Milton 05/31/2024 RILEY TOLBERTA - MEDICARE-PAREKH [facility] (MEDICARE) Maude Milton [id number] Maude Milton 06/20/2024 2 [employer] (MEDICARE SUPPLEMENT) Maude Milton [id number] Maude Milton 06/14/2024 1 [employer] - MEDICARE-PAREKH [employer]RO[employer] BOARD (MEDICARE) Maude Milton [id number] Maude Milton Notes Date Note Type Note Provider Name and Address Organization Details Recorded Time 05/31/2024 text/html f/u with the pat ient today after an ER visit at [facility] 05/30 due to increased lethargy, hypoxia requiring [...] is at the bedside and her POA/daughter, nAjelica, is on the phone. We discuss her recent clinical decline, ER visit and orders/plan of care. The patient was, unfortunately, sent back from [facility] without appropriate records - nursing is trying [...] [place] [address] [place], [address], [facility] - [facility] 06/03/2024 06:40:28 06/01/2024 text/html F/U [...] reports this dressing is to be changed [id number] per the surgeon, rather than the daily [...] patient today after an ER visit at [facility] 05/30 due to increased lethargy, hypoxia requiring [...] The patient was, unfortunately, sent back from [facility] without appropriate records - nursing is trying [...] We do not have full records from [facility] yet but Anjelica does confirm that a [...] with CGA, toileting with MOD. May Carrillo, DEALER RELATIONSHIP MANAGER [address] [facility], [place], [address], [place] [facility] 06/03/2024 [...] reports this dressing is to be changed [id number] per the surgeon, rather than the daily [...] is seated in her wheelchair in the [facility] area, her daughter Jodi by her side. [...] patient today after an ER visit at [facility] 05/30 due to increased lethargy, hypoxia requiring [...] The patient was, unfortunately, sent back from [facility] without appropriate records - nursing is trying [...] We do not have full records from [facility] yet but Anjelica does confirm that a [...] 01/08 impacting self-care tasks May Carrillo, EVONNE [address] [facility], [place], [address], [facility] - [facility] 06/03/2024 16:06:29 06/08/2024 text/html F/U [...] reports this dressing is to be changed [id number] per the surgeon, rather than the daily [...] patient today after an ER visit at [facility] 05/30 due to increased lethargy, hypoxia requiring [...] The patient was, unfortunately, sent back from [facility] without appropriate records - nursing is trying [...] increased time and cues. May Carrillo, EVONNE [address] [facility], [place], [address], [facility] - [facility] 06/08/2024 17:21:03 06/10/2024 text/html F/U [...] reports this dressing is to be changed [id number] per the surgeon, rather than the daily [...] on level surfaces with a FWW, requiring aDve. Patient required cueing for upright posture and [...] will not be able to discharge home. Madue says she did not have this pain [...] patient today after an ER visit at [facility] 05/30 due to increased lethargy, hypoxia requiring [...] The patient was, unfortunately, sent back from [place] without appropriate records - nursing is trying [...] We do not have full records from [facility] yet but Anjelica does confirm that a [...] why we changed the dressing changes from [id number] to daily. In fact, she is noted [...] due [place] [address] [place], [address], [facility] - [facility] 06/10/2024 15:17:58 OBGyn Episode No OBEpisode recorded.
--- OUTSIDE RECORDS SUMMARY | 2024-10-09 00:46 | XMS_ITS ---
Author Name Auto Generated, Auto Generated Organization [facility] Address [address] [place] [address] Phone [phone] Care Team Providers Care Coil Taper Name Role Phone May Carrillo Unavailable AaliyahDiana fagan Unavailable [phone] Functional Status No Results Mental Status No Results Allergies and Intolerances Name Onset Date Reaction Severity hydrocodone (Allergy) SatJan 10 19:57:00 EDT 20 23 levofloxacin (Allergy) SatJan 10 19:57:00 EDT 2 023 alendronate sodium (Allergy) SatJan 10 19:56:00 EDT 2022 Encounters Program Name Primary Diagnosis Admission Date/Time Dis charge Date/Time Funeral Pre Arrangement Specialist Care Facility [facility] SatMay 11 09:20:00 EST [...] 2022 * End Date: * Text: * Atherosclerotic heart disease of [place] coronary artery without angina pectoris* Code: * Start Date: SatJan 10 00:00:00 EDT 2022 * End Date: SatMay 13 00:00:00 EST 2024 * Text: * Fall on same level, unspecified, subsequent encounter* Code: * Start Date: SatJan 10 00:00:00 EDT 2022 * End Date: SatMay 13 00:00:00 EST 2024 * Text: * Fracture of unspecified part of neck of right femur, subsequent encounter for closed fracture with routine healing* Code: * Start Date: SatJan 10 00:00:00 EDT 2022 * End Date: SatMay 13 00:00:00 EST 2024 * Text: * Gastro-esophageal reflux disease without [...] 2022 * End Date: * Text: * USP (current) use of anticoagulants* Code: * Start Date: SatJan 10 00:00:00 EDT 2022 * End Date: * Text: * Personal history of (healed) traumatic fracture* Code: * Start Date: SatJan 10 00:00:00 EDT 2022 * End Date: * Text: * Presence of other specified devices* Code: * Start Date: SatMay 11 00:00:00 EST 2024 * End Date: * Text: * Acute cholecystitis* Code: * Start Date: SatMay 11 00:00:00 EST 2024 * End Date: SatMay 13 00:00:00 EST 2024 * Text: * Personal history of COVID-19* Code: * Start Date: SatMay 11 00:00:00 EST 2024 * End Date: * Text: * Herpesviral vesicular dermatitis* Code: * Start Date: SatMay 11 00:00:00 2024 * End Date: * Text: * Atherosclerotic heart disease of [place] coronary artery with other forms of angina [...] 2024 * End Date: * Text: * [id number] Maude receiving mechanically altered diet. (12)* Code: * Start Date: SatMay 19 00:00:00 EST 2024 * End Date: * Text: [id number] Maude receiving mechanically altered diet. (12) * [...] Maude will be involved in discharge planning. Vital Signs Vital Sign Measurement Date Body weight 176.40 [lb_av] SatJun 12 15:20 :07 EDT 2024 Systolic Blood Pressure 140.00 mm[Hg] SatJun 12 10:53:11 ED2024 Diastolic Blood Pressure 78.00 mm[Hg] SatJun 12 10:53:11 EDT 2024 Pulse Oximetry 96.00 % SatJun 12 10:53 :11 ED2024 Heart Rate 79.00 /min SatJun 12 10:53 [...] 85.00 /min Sat 14 01:52 :34 EDT 5 Body temperature 98.10 [degF] Sat 14 01:5 [...] /min Rosa Mmay 13 09:4 8:55 EDT 5 Systolic Blood Pressure 118.00 mm[Hg] Rosa Mmay [...] 18.00 /min SatJun 08 11:0 5:38 EDT 5 Systolic Blood Pressure 179.00 mm[Hg] SatJun 08 [...] mm[Hg] Sat Jun 06 23:42:57 EST 2024 Pulse Oximetry 95.00 % [...] Sat Mar 08 10:5 4:56 EST 2024 Systolic Blood [...] /min SatJun 06 01:0 3:16 EST 2024 Body [...] 69.00 mm[Hg] Sat 06 09:05:33 EST 2024 Pulse Oximetry 95.00 % SatJun 04 09:05 :33 EST 2024 Heart Rate 84.00 /min Sat 06 09:05 :33 EST 2024 Heart Rate 84.00 /min SatJun 04 09:05 :33 EST 2024 Body temperature 97.60 [degF] SatJun 04 09:0 5:33 EST 5 Respiratory rate 18.00 /min SatJun 04 09:0 5:33 EST 2024 Systolic [...] 10:03:14 EST 2024 Pulse Oximetry 96.00 % SatJun 01 10:03 :14 EST 2024 Heart Rate 79.00 /min Mon Jun 01 10:03 :14 EST 2024 Heart Rate 79.00 /min Mon May 03 10:03 :14 EST 2024 Body temperature 98.20 [degF] Mon May 03 10:0 3:14 EST 2024 Respiratory rate 18.00 /min Mon May 03 10:0 3:14 EST 2024 Systolic Blood Pressure 137.00 mm[Hg] Sun Mar 02 23:07:31 EST 2024 Diastolic Blood Pressure 61.00 mm[Hg] Sun Mar 02 23:07:31 EST 2024 Pulse Oximetry 99.00 % Sun May 31 23:07 :31 EST 2024 Heart Rate 72.00 /min Sun Mar 23:07 :31 EST 2024 Body temperature 97.60 [...] Systolic Blood Pressure 137.00 mm[Hg] Sun May 02 10:14:20 EST 2024 Diastolic Blood Pressure 77.00 mm[Hg] Sun May 02 10:14:20 EST 2024 Heart Rate 69.00 /min Sun May 02 10:14 :20 EST 2024 Systolic Blood Pressure 142.00 mm[Hg] Sun Mar 02 03:48:16 EST 2024 Diastolic Blood Pressure 59.00 mm[Hg] Sun Mar 02 03:48:16 EST 2024 Pulse Oximetry 95.00 % Sun May 02 03:48 :16 EST 2024 Heart Rate 81.00 /min Sun Mar 02 03:48 :16 EST 2024 Body temperature 98.00 [degF] Sun Mar 02 03:4 8:16 EST 2024 Respiratory rate 16.00 /min Sun Mar 02 03:4 8:16 EST 2025 Systolic Blood Pressure 150.00 mm[Hg] SatMay 30 14:36:01 EST 2024 Diastolic Blood Pressure 77.00 mm[Hg] SatMay 30 14:36:01 EST 2024 Pulse Oximetry 91.00 % SatMay 30 14:36 :01 EST 2024 Heart Rate 77.00 /min SatMay 30 14:36 :01 EST 2024 Body temperature 97.30 [degF] [facility] May 30 14:3 6:01 EST 2024 Respiratory rate 18.00 /min [facility] May 30 14:3 6:01 EST 2024 Systolic Blood Pressure 150.00 mm[Hg] [facility] May 30 09:59:14 EST 2024 Diastolic Blood Pressure 17.00 mm[Hg] [facility] May 30 09:59:14 EST 2024 Heart Rate 77.00 /min [facility] May 30 09:59 :14 EST 2024 Systolic Blood Pressure 120.00 mm[Hg] Satb 23:47:19 2024 Diastolic Blood Pressure 54.00 mm[Hg] Satb 23:47:19 2024 Pulse Oximetry 94.00 % SatMay 29 23:47 :19 2024 Heart Rate 68.00 /min Satb 23:47 :19 2024 Body temperature 97.40 [degF] Satb 23:4 7:19 2024 Respiratory rate 18.00 /min Satb 23:4 7:19 EST 2024 Body weight 179.20 [lb_av] Satb 15:37 :42 2024 Systolic Blood Pressure 137.00 mm[Hg] Satb 10:42:45 2024 Diastolic Blood Pressure 70.00 mm[Hg] Satb 10:42:45 EST 2024 Pulse Oximetry 91.00 % SatMay 29 10:42 :45 EST 2024 Heart Rate 78.00 /min Satb 10:42 :45 EST 2024 Body temperature 98.20 [degF] SatMay 29 10:4 2:45 EST 2024 Respiratory rate 20.00 /min Satb 10:4 2:45 EST 2024 Systolic Blood Pressure [...] Rosa M Feb 27 10:47:41 EST 2024 Pulse Oximetry 94.00 % Rosa M Feb 27 10:47 :41 EST 2024 Heart Rate 79.00 /min Rosa [...] Rosa M Feb 27 09:35 :42 EST 5 Systolic Blood Pressure 134.00 mm[Hg] Wed Feb 26 22:21:54 EST 5 Diastolic Blood Pressure 63.00 mm[Hg] Wed Feb 26 22:21:54 EST 2024 Pulse Oximetry 97.00 % Wed Feb 26 22:21 :54 EST 2024 Heart Rate 77.00 /min Wed Feb 26 22:21 :54 EST 5 Body temperature 98.10 [degF] Wed Feb 26 22:2 1:54 EST 5 Respiratory rate 18.00 /min Wed Feb 26 22:2 1:54 EST 2024 Body weight 178.20 [lb_av] Wed Feb 26 14:41 :52 EST 2024 Systolic Blood Pressure 149.00 mm[Hg] Wed Feb 26 11:57:05 EST 2024 Diastolic Blood Pressure 68.00 mm[Hg] Wed Feb 26 11:57:05 EST 2024 Pulse Oximetry 98.00 % Wed Feb 11:57 :05 EST 5 Heart Rate 79.00 /min Wed Feb 26 11:57 :05 EST 5 Body temperature 98.20 [degF] Wed Feb 26 11:5 7:05 EST 5 Respiratory rate 18.00 /min Wed Feb 26 11:5 7:05 EST 2024 Systolic Blood Pressure 149.00 mm[Hg] Wed Feb 26 09:10:27 EST 5 Diastolic Blood Pressure 68.00 mm[Hg] Wed Feb 26 09:10:27 EST 2024 Heart Rate 79.00 /min Wed Feb 09:10 :27 EST 2024 Systolic Blood Pressure 148.00 mm[Hg] Wed Feb 26 02:15:07 EST 2024 Diastolic Blood Pressure 75.00 mm[Hg] Wed Feb 26 02:15:07 EST 2024 Pulse Oximetry 97.00 % Sat Feb 02:15 :07 EST 2024 Heart Rate 79.00 /min Wed Feb 02:15 :07 EST 2024 Body temperature 98.40 [degF] Sat Feb 02:1 5:07 EST 2024 Respiratory rate 18.00 /min Sat Feb 02:1 5:07 EST 2024 Body weight 179.20 [lb_av] Satb 14:17 :38 EST 2024 Systolic Blood Pressure 152.00 mm[Hg] Satb 09:03:58 EST 2024 Diastolic Blood Pressure 80.00 mm[Hg] Sat Feb 09:03:58 EST 2024 Pulse Oximetry 93.00 % Sat Feb 09:03 :58 EST 2024 Heart Rate 76.00 /min Sat Feb 09:03 :58 EST 2024 Body temperature 98.20 [degF] Satb 09:0 3:58 EST 5 Respiratory rate 18.00 /min Sat Feb 09:0 3:58 EST 5 Systolic Blood Pressure 152.00 mm[Hg] Satb 08:33:30 EST 5 Diastolic Blood Pressure 80.00 mm[Hg] Satb 08:33:30 EST 2024 Heart Rate 76.00 /min Satb 08:33 :30 EST 2024 Systolic Blood Pressure 146.00 mm[Hg] Satb 00:19:27 EST 2024 Diastolic Blood Pressure 63.00 mm[Hg] Satb 00:19:27 EST 5 Pulse Oximetry 95.00 % Satb 00:19 :27 EST 2024 Heart Rate 73.00 /min Sat Feb 00:19 :27 EST 5 Body temperature 97.80 [degF] Satb 00:1 9:27 EST 5 Respiratory rate 18.00 /min Sat Feb 00:1 9:27 EST 2024 Body weight 181.30 [lb_av] Sat Feb 09:32 :44 EST 2024 Systolic Blood Pressure 142.00 mm[Hg] Sat Feb 09:03:45 EST 2024 Diastolic Blood Pressure 73.00 mm[Hg] Sat Feb 09:03:45 EST 2024 Heart Rate 82.00 /min Sat Feb 24 09:03 :45 EST 5 Systolic Blood Pressure 142.00 mm[Hg] Sat Feb 24 08:35:58 EST 2024 Diastolic Blood Pressure 79.00 mm[Hg] Sat Feb 24 08:35:58 EST 2024 Pulse Oximetry 95.00 % Sat Feb 24 08:35 :58 EST 5 Heart Rate 82.00 /min Sat Feb 24 08:35 :58 EST 2024 Body temperature 97.80 [degF] Sat Feb 24 08:3 5:58 EST 5 Respiratory rate 20.00 /min Sat Feb 24 08:3 5:58 EST 2025 Systolic Blood Pressure 162.00 mm[Hg] Sat Feb 24 00:15:59 EST 5 Diastolic Blood Pressure 75.00 mm[Hg] Mon Feb 24 00:15:59 EST 2024 Pulse Oximetry 93.00 % Sat Feb 24 00:15 :59 EST 5 Heart Rate 77.00 /min Sat Feb 24 00:15 :59 EST 5 Body temperature 98.20 [degF] Mon Feb 24 00:1 5:59 EST 2025 Respiratory rate 20.00 /min Mon Feb 24 00:1 5:59 EST 2025 Body weight 181.20 [lb_av] Sun Feb 23 17:03 :09 EST 2024 Systolic Blood Pressure 131.00 mm[Hg] Sun Feb 09:44:13 EST 2024 Diastolic Blood Pressure 64.00 mm[Hg] Sun Feb 09:44:13 EST 2024 Pulse Oximetry 93.00 % Sun [...] 58.00 mm[Hg] Sun Feb 01:24:44 EST 2024 Pulse Oximetry 96.00 % Sun Feb 01:24 :44 EST 2024 Heart Rate 73.00 /min Sun [...] /min Sat Feb 22 09:03 :52 EST 5 Systolic Blood Pressure 100.00 mm[Hg] Sat Feb [...] 5:57 EST 5 Respiratory rate 18.00 /min Sat Feb 09:4 5:57 EST 2024 Systolic Blood Pressure 126.00 mm[Hg] Sat Feb 00:02:02 EST 5 Diastolic Blood Pressure 61.00 mm[Hg] Sat Feb 00:02:02 EST 2024 Pulse Oximetry 97.00 % Sat Feb 00:02 :02 EST 2024 Heart Rate 70.00 /min Fri Feb 00:02 :02 EST 2024 Body temperature 97.30 [degF] Fri Feb 00:0 2:02 EST 5 Respiratory rate 18.00 /min Fri Feb 00:0 2:02 EST 2024 Body weight 180.00 [lb_av] Rosa M Feb 20 11:39 :56 EST 2025 Systolic Blood Pressure 135.00 mm[Hg] Rosa M Feb 20 10:18:42 EST 5 Diastolic Blood Pressure 93.00 mm[Hg] Rosa M Feb 20 10:18:42 EST 5 Systolic Blood Pressure 135.00 mm[Hg] Rosa M Feb 20 10:18:42 EST 5 Diastolic Blood Pressure 93.00 mm[Hg] Rosa M Feb 20 10:18:42 EST 2024 Pulse Oximetry 97.00 % Rosa [...] M Feb 20 03:14 :49 EST 2024 Heart Rate 64.00 /min Rosa [...] Wed Feb 19 09:57 :46 EST 2025 Body temperature 97.40 [degF] Wed Feb 09:5 7:46 EST 2025 Respiratory rate 18.00 /min Wed Feb 19 09:5 7:46 EST 2025 Systolic Blood Pressure 146.00 mm[Hg] e Feb 18 21:27:31 EST 2025 Diastolic Blood Pressure 63.00 mm[Hg] e Feb 18 21:27:31 EST 2025 Pulse Oximetry 94.00 % e Feb 18 21:27 :31 EST 2025 Heart Rate 69.00 /min e Feb 18 21:27 :31 EST 5 Body temperature 97.80 [degF] e Feb 18 21:2 7:31 EST 2025 Respiratory rate 18.00 /min e Feb 18 21:2 7:31 EST 5 Body temperature 97.10 [degF] e Feb 18 13:0 5:30 EST 2024 Body weight 179.80 [lb_av] e Feb 18 11:46 :01 EST 5 Systolic Blood Pressure 119.00 mm[Hg] e Feb 18 09:29:54 EST 5 Diastolic Blood Pressure 60.00 mm[Hg] e Feb 18 09:29:54 EST 5 Pulse Oximetry 93.00 % Sat Feb 18 09:29 :54 EST 5 Heart Rate 69.00 /min e [...] mm[Hg] e Feb 18 02:57:12 EST 5 Pulse Oximetry 94.00 % Sat Feb 18 02:57 :12 EST 2024 Heart Rate 66.00 /min e Feb 18 02:57 :12 EST 5 Body temperature 97.80 [degF] Sat Feb 18 02:5 7:12 EST 5 Respiratory rate 18.00 /min Sat Feb 18 02:5 7:12 EST 5 Body weight 177.40 [lb_av] Mon Feb 17 10:51 :19 EST 5 Systolic Blood Pressure 121.00 mm[Hg] Mon Feb 17 10:32:33 EST 5 Diastolic Blood Pressure 73.00 mm[Hg] Mon Feb 17 10:32:33 EST 5 Pulse Oximetry 96.00 % Mon Feb 17 10:32 :33 EST 2024 Heart Rate 73.00 /min Mon Feb 17 10:32 :33 EST 5 Body temperature 97.30 [degF] Mon Feb 17 10:3 2:33 EST 5 Respiratory [...] /min Sun Feb 16 10:16 :27 EST 2024 Body temperature 97.60 [degF] Sun Feb 16 [...] 59.00 mm[Hg] Sat Feb 15 23:03:29 EST 2024 Pulse Oximetry 96.00 % Sat Feb 15 23:03 :29 EST 2025 Heart Rate 70.00 /min Sat Feb 15 23:03 :29 EST 5 Body temperature 97.30 [degF] Sat Feb 15 23:0 3:29 EST 5 Respiratory rate 18.00 /min Sat Feb 15 23:0 3:29 EST 5 Body weight 178.20 [lb_av] Sat Feb 15 [...] 121.00 mm[Hg] Fri Feb 14 22:24:57 EST 5 Diastolic Blood Pressure 59.00 mm[Hg] Fri Feb 14 22:24:57 EST 5 Pulse Oximetry 96.00 % Fri Feb 14 [...] 09:26:24 EST 2024 Pulse Oximetry 97.00 % Fri Feb 14 09:26 :24 EST 2024 [...] Rosa M Feb 13 09:30 :38 EST 2025 Heart Rate 79.00 /min Rosa [...] Wed Feb 12 20:19 :26 EST 5 Heart Rate 67.00 /min Wed [...] 58.00 mm[Hg] Wed Feb 12 10:03:54 EST 5 Pulse Oximetry 93.00 % Wed Feb 12 10:03 :54 EST 5 Heart Rate 69.00 /min Wed Feb 12 10:03 :54 EST 5 Body temperature 97.40 [degF] Wed Feb 12 [...] :33 EST 2025 Heart Rate 72.00 /min Sat Feb 12 00:09 :33 EST 2025 Body temperature 97.60 [degF] Sat Feb 12 00:0 9:33 EST 2025 Respiratory rate 20.00 /min Sat Feb 12 00:0 9:33 EST 5 Systolic Blood Pressure 154.00 mm[Hg] e Feb 11 08:46:44 EST 5 Diastolic Blood Pressure 81.00 mm[Hg] Sat Feb 08:46:44 EST 2024 Pulse Oximetry 94.00 % Sat Feb 08:46 :44 EST 2024 Heart Rate 76.00 /min Sat [...] 154.00 mm[Hg] Sat Feb 10 23:35:55 EST 5 Diastolic Blood Pressure 71.00 mm[Hg] Sat Feb 10 23:35:55 EST 2024 Pulse Oximetry 94.00 % Sat [...] mm[Hg] Sat Feb 10 16:32:00 EST 5 Pulse Oximetry 96.00 % Sat Feb 10 16:32 :00 EST 2025 Heart Rate 71.00 /min Sat Feb 10 16:32 :00 EST 5 Body weight 180.40 [lb_av] SatMay 11 16:32 :00 2024 Body temperature 98.20 [degF] SatMay 11 16:3 2:00 2024 Respiratory rate 18.00 /min SatMay 11 16:3 2:00 2024 Body Height 63.00 [in_i] SatMay 11 16:32 :00 2024 Reason for Referral Past Medical History
--- OUTSIDE RECORDS SUMMARY | 2024-10-09 00:46 | XMS_ITS | Clinical Summary ---
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
[2024-10-09] MEDS: LACTATED RINGERS 1,000 ML 150 ML IV CONT (10:41)
--- NOTE | 2024-10-09 10:55 | WPDANESEPPF ---
Anes - Initial Pre Proc Eval Procedure: Operation Date: 10/09/24 11:30 Proposed Procedures p Endoscopic Retro Cholangiopancreatogram - Silver Power MD Date/Time: 10/09/24 10:55 Surgeon: Silver Power MD Pre Op Diagnosis: Other specified diseases of biliary tract Patient Data Age: 84 Gender: F Height: 1.6 m Weight: 66.3 kg Last Vital Signs Temp 97.7 F 10/09/24 10:23 Pulse 81 10/09/24 10:23 Resp 20 10/09/24 10:23 BP 133/74 10/09/24 10:23 Pulse Ox 99 10/09/24 10:23 O2 Del Method Room Air 10/09/24 10:23 Allergies Allergy/AdvReac Type Severity Reaction Status Date / Time alendronate sodium Allergy Unknown Pt does Verified 10/09/24 10:19 remember levofloxacin Allergy Unknown Pt does Verified 10/09/24 10:19 not remember hydrocodone AdvReac Mild IF SHE Verified 10/09/24 10:19 TAKES 250 MG SHE IS OKAY, 500 MG SHE HAS NAUSEA AND V Home Medications ?Medication ?Instructions ?Recorded ?Confirmed ?Type cyanocobalamin (vitamin B-12) 2,500 mcg PO QAM #90 tabs 01/10/23 10/09/24 Rx 2,500 mcg tablet egg crate mattress for chair #1 ea 04/27/24 10/05/24 Rx nitroglycerin 0.4 mg sublingual 0.4 mg sublingual Q5M PRN chest 05/02/24 10/05/24 History tablet pain acetaminophen 500 mg capsule 1,000 mg PO TID PRN pain 06/13/24 10/05/24 History amitriptyline 10 mg tablet 20 mg PO .HS 06/13/24 10/09/24 History furosemide 40 mg tablet (Lasix) 40 mg PO BID 30 days #60 tabs 06/20/24 10/09/24 Rx metoprolol succinate 100 mg 100 mg PO DAILY 30 days #30 tabs 06/20/24 10/09/24 Rx tablet,extended release 24 hr (Toprol XL) apixaban 5 mg tablet (Eliquis) 5 mg PO Q12HR #60 tabs 06/22/24 10/09/24 Rx atorvastatin 40 mg tablet 40 mg PO DAILY #90 tabs 06/29/24 10/09/24 Rx chair lift #1 ea 06/29/24 10/05/24 Rx levothyroxine 25 mcg tablet 25 mcg PO DAILY #90 tabs 08/25/24 10/09/24 Rx ondansetron HCl 4 mg tablet 4 mg PO TID PRN nausea and 08/25/24 10/05/24 Rx vomiting #60 ea potassium chloride 10 mEq 20 meq (2 x 10 mEq) PO BID #120 08/25/24 10/09/24 Rx tablet,extended release (Klor-Con) tabs gabapentin 100 mg capsule 200 mg (2 x 100 mg) PO BID #120 10/05/24 10/09/24 Rx caps omeprazole 20 mg capsule,delayed 20 mg PO BID #180 caps 10/05/24 10/09/24 Rx release tamsulosin 0.4 mg capsule See Rx Instructions .Route 10/05/24 10/09/24 Rx .COMPLEX #90 caps Patient hx anesthesia problems: none Family hx anesthesia problems: none Results Review: All pre-operative results and documents have been reviewed as part of the pre-operative evaluation. 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 Patient of Dr. Bereket Olson. Arthritis Prediabetes Essential hypertension Gastroesophageal reflux disease Hypothyroidism Mixed hyperlipidemia Seasonal allergic rhinitis Vitamin B12 deficiency Vitamin D deficiency Surgical History Surgical History Hx of abdominal abscess 08/19/24 Incision and drainage of right lateral abdominal abscess Dr. Chester History of cardiac catheterization Results as above. History of colonoscopy with polypectomy History of appendectomy History of cataract extraction History of hysterectomy Family History Family History Father Lung cancer Sibling Breast cancer Social History Social History Social History: Surrogate medical decision maker: Jodi Lewis, daughter. Code status: Full code. Smoking status: Never smoker Second hand tobacco smoke exposure: No Alcohol intake: never Substance use: never Substance use type: does not use Do You Feel Safe in your Home?: Yes Lack of Transportation: No Lack of Food: Never True Current Housing: I Have Housing Concerned About Future Housing: No Difficulty Paying Gas/Electric Bills: No Difficulty Paying for Meds: No Currently Unemployed: No Education: High School Diploma/GED Difficulty w/ Childcare or Family Care: No Living arrangements: with family Additional living arrangements comments: The patient lives in [place] with her daughter Jodi. 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 Spiritual care concerns: No Agree to blood products: Yes Anes - Eval Final PreProcedure Day of Procedure 10/09/24 10:55 Patient weight: normal Heart: regular rate and rhythm Lungs: clear to auscultation Airway: Mallampati scale class II Neurological: alert and oriented Last oral intake: >/= 8 hours ASA classification: III Emergent: no Anesthetic plan: proceed Anesthesia type and monitoring: general ETT and standard monitoring Results Review: All pre-operative results and documents have been reviewed as part of the pre-operative evaluation. Informed Consent: The patient's anesthetic plan and its attendant risks and benefits were discussed with the patient/family/POA. Questions were solicited and answers provided to the satisfaction of the patient/family/POA.
--- NOTE | 2024-10-09 11:44 | PM.HPGS ---
History of Present Illness History of Present Illness Consent: Risks, benefits, and alternatives have been discussed and questions answered. Patient agrees to proceed with procedure. Chief complaint: Other specified diseases of biliary tract Narrative: Maude Milton is a 84 year old female here for ercp to remove bile duct stent and reassess, she had bile leak after cholecystectomy for which I place stent, she has been doing well. 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 Patient of Dr. Bereket Olson. Arthritis Prediabetes Essential hypertension Gastroesophageal reflux disease Hypothyroidism Mixed hyperlipidemia Seasonal allergic rhinitis Vitamin B12 deficiency Vitamin D deficiency Surgical History Surgical History Hx of abdominal abscess 08/19/24 Incision and drainage of right lateral abdominal abscess Dr. Chester History of cardiac catheterization Results as above. History of colonoscopy with polypectomy History of appendectomy History of cataract extraction History of hysterectomy Family History Family History Father Lung cancer Sibling Breast cancer Social History Social History Social History: Surrogate medical decision maker: Jodi Lewis, daughter. Code status: Full code. Smoking status: Never smoker Second hand tobacco smoke exposure: No Alcohol intake: never Substance use: never Substance use type: does not use Do You Feel Safe in your Home?: Yes Lack of Transportation: No Lack of Food: Never True Current Housing: I Have Housing Concerned About Future Housing: No Difficulty Paying Gas/Electric Bills: No Difficulty Paying for Meds: No Currently Unemployed: No Education: High School Diploma/GED Difficulty w/ Childcare or Family Care: No Living arrangements: with family Additional living arrangements comments: The patient lives in [place] with her daughter Jodi. 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 Spiritual care concerns: No Agree to blood products: Yes Meds Home Medications and Allergies Home Medications ?Medication ?Instructions ?Recorded ?Confirmed ?Type cyanocobalamin (vitamin B-12) 2,500 mcg PO QAM #90 tabs 01/10/23 10/09/24 Rx 2,500 mcg tablet egg crate mattress for chair #1 ea 04/27/24 10/05/24 Rx nitroglycerin 0.4 mg sublingual 0.4 mg sublingual Q5M PRN chest 05/02/24 10/05/24 History tablet pain acetaminophen 500 mg capsule 1,000 mg PO TID PRN pain 06/13/24 10/05/24 History amitriptyline 10 mg tablet 20 mg PO .HS 06/13/24 10/09/24 History furosemide 40 mg tablet (Lasix) 40 mg PO BID 30 days #60 tabs 06/20/24 10/09/24 Rx metoprolol succinate 100 mg 100 mg PO DAILY 30 days #30 tabs 06/20/24 10/09/24 Rx tablet,extended release 24 hr (Toprol XL) apixaban 5 mg tablet (Eliquis) 5 mg PO Q12HR #60 tabs 06/22/24 10/09/24 Rx atorvastatin 40 mg tablet 40 mg PO DAILY #90 tabs 06/29/24 10/09/24 Rx chair lift #1 ea 06/29/24 10/05/24 Rx levothyroxine 25 mcg tablet 25 mcg PO DAILY #90 tabs 08/25/24 10/09/24 Rx ondansetron HCl 4 mg tablet 4 mg PO TID PRN nausea and 08/25/24 10/05/24 Rx vomiting #60 ea potassium chloride 10 mEq 20 meq (2 x 10 mEq) PO BID #120 08/25/24 10/09/24 Rx tablet,extended release (Klor-Con) tabs gabapentin 100 mg capsule 200 mg (2 x 100 mg) PO BID #120 10/05/24 10/09/24 Rx caps omeprazole 20 mg capsule,delayed 20 mg PO BID #180 caps 10/05/24 10/09/24 Rx release tamsulosin 0.4 mg capsule See Rx Instructions .Route 10/05/24 10/09/24 Rx .COMPLEX #90 caps Allergies Allergy/AdvReac Type Severity Reaction Status Date / Time alendronate sodium Allergy Unknown Pt does Verified 10/09/24 10:19 remember levofloxacin Allergy Unknown Pt does Verified 10/09/24 10:19 not remember hydrocodone AdvReac Mild IF SHE Verified 10/09/24 10:19 TAKES 250 MG SHE IS OKAY, 500 MG SHE HAS NAUSEA AND V Vital Signs Vital Signs - 24 hr 10/09/24 10:23 Temperature 97.7 F Pulse Rate 81 Respiratory Rate 20 Blood Pressure 133/74 Pulse Oximetry 99 Oxygen Delivery Room Air Exam Const: General: comfortable and no acute distress HENMT: Face/Nose/Sinus: Normal nares present Eyes: General: appearance normal, both eyes and all related structures Neck: Neck: no JVD Resp: Auscultation: clear to auscultation bilaterally Cardio: Rate: regular rate Rhythm: regular rhythm GI: Inspection: non-distended GI Palp: Yes Soft to palpation Skin: General skin exam: normal color Neuro: Speech: normal speech Extrem: General: normal to inspection Psych: Mental Status: mental status grossly normal Assessment and Plan Assessment and plan (1) Bile leak, postoperative: Code(s): K91.89 - Other postprocedural complications and disorders of digestive system; K83.8 - Other specified diseases of biliary tract Status: Acute Assessment and Plan: ercp today to remove stent and then assess if no more leak
== END 2024-10-09 13:10 | disposition home or self-care (01) ==
PROVIDERS: PCP Family Medicine; Referring Provider Internal Medicine Gastroenterology; Visit Provider Internal Medicine Gastroenterology
PROC: (CPT 43260; principal; 2024-10-09 11:30)
DX: K91.89 Other postprocedural complications and disorders of digestive system (principal); Z46.89 Encounter for fitting and adjustment of other specified devices; K83.8 Other specified diseases of biliary tract; Z90.49 Acquired absence of other specified parts of digestive tract
CPT/HCPCS: 43275; 74329; J0330; J1100; J2003; J2405; J2704; J7120; Q9966